=== PATIENT | female | born 1990 | race Caucasian/White ===

== ENCOUNTER 2023-04-17 11:06 | Outpatient (OUT) | payer BC, SELFPAY ==
--- NOTE | 2023-04-17 11:04 | US_ITS ---
[address] [address] Patient Name: KIRA CASTELLON MRN: [id number] date: 1990 Sex: F Assigned Patient Location: US Current Patient Location: Accession/Order Number: [id number] Exam Date: 04/17/2023 11:05 Report Date: 04/17/2023 16:12 At the request of: THOMAS FORMAN Procedure: US OB anatomy EXAMINATION: US OB anatomy, US OB transvaginal HISTORY: ANATOMY COMPARISON: No relevant comparison available. TECHNIQUE: Transabdominal sonographic examination was performed for obstetrical and evaluation. FINDINGS: Number: 1 Heart Rate: 148.0 bpm H.B. /min Amniotic Fluid Volume: Subjectively normal Placental Location: ANTERIOR with lower margin 5.3 cm from os. Cervix Length: 3.8 cm, closed. ANATOMY: Normal Structures -cerebellum, choroid plexus, cisterna magna, lateral cerebral ventricles, orbits, midline falx, four-chamber heart, RVOT, LVOT, stomach, bladder, umbilical cord insertion into abdomen, three-vessel cord, right upper extremity, left upper extremity, right lower extremity, left lower extremity. SUBOPTIMALLY SEEN: Hard palate, diaphragm, kidneys, spine ABNORMALITIES: None BIOMETRY: BPD: 4.8 cm 20 weeks 3 days HC: 18.3 cm 20 weeks 5 days AC: 16.3 cm 21 weeks 2 days FL: 3.7 cm 21 weeks 6 days EFW:424.2 grams; FL/AC: 22.9 FL/BPD: 78.2 HC/AC: 1.1 GESTATIONAL AGE: Age by EDC: 20 weeks 3 days LELA by EDC: 09/01/2023 Age by current US: 21 weeks 1 days LELA by current US: 08/27/2023 IMPRESSION: 1. Single live intrauterine with growth detailed above. 2. Limited examination of the hard palate, diaphragm, kidneys, spine due to maternal body habitus and position. Electronically authenticated by: YOMAIRA GONZALEZ Date: 04/17/2023 16:12
--- NOTE | 2023-04-17 11:05 | US_ITS ---
[address] [address] Patient Name: KIRA CASTELLON MRN: [id number] date: 1990 Sex: F Assigned Patient Location: US Current Patient Location: Accession/Order Number: [id number] Exam Date: 04/17/2023 11:05 Report Date: 04/17/2023 16:12 At the request of: THOMAS FORMAN Procedure: US OB transvaginal EXAMINATION: US OB anatomy, US OB transvaginal HISTORY: ANATOMY COMPARISON: No relevant comparison available. TECHNIQUE: Transabdominal sonographic examination was performed for obstetrical and evaluation. FINDINGS: Number: 1 Heart Rate: 148.0 bpm H.B. /min Amniotic Fluid Volume: Subjectively normal Placental Location: ANTERIOR with lower margin 5.3 cm from os. Cervix Length: 3.8 cm, closed. ANATOMY: Normal Structures -cerebellum, choroid plexus, cisterna magna, lateral cerebral ventricles, orbits, midline falx, four-chamber heart, RVOT, LVOT, stomach, bladder, umbilical cord insertion into abdomen, three-vessel cord, right upper extremity, left upper extremity, right lower extremity, left lower extremity. SUBOPTIMALLY SEEN: Hard palate, diaphragm, kidneys, spine ABNORMALITIES: None BIOMETRY: BPD: 4.8 cm 20 weeks 3 days HC: 18.3 cm 20 weeks 5 days AC: 16.3 cm 21 weeks 2 days FL: 3.7 cm 21 weeks 6 days EFW:424.2 grams; FL/AC: 22.9 FL/BPD: 78.2 HC/AC: 1.1 GESTATIONAL AGE: Age by EDC: 20 weeks 3 days LELA by EDC: 09/01/2023 Age by current US: 21 weeks 1 days LELA by current US: 08/27/2023 IMPRESSION: 1. Single live intrauterine with growth detailed above. 2. Limited examination of the hard palate, diaphragm, kidneys, spine due to maternal body habitus and position. Electronically authenticated by: YOMAIRA GONZALEZ Date: 04/17/2023 16:12
== END 2023-04-17 11:07 ==
PROVIDERS: Visit Provider Obstetrics & Gynecology
DX: Z34.92 Encounter for supervision of normal pregnancy, unspecified, second trimester (principal)
CPT/HCPCS: 76805; 76817

== ENCOUNTER 2023-06-12 07:33 | Outpatient (RCR) | payer BC, SELFPAY ==
[2023-06-12 09:20] VITALS: BP 146/99; PULSE 94; RESP 18; TEMP 36.4; O2SAT 100
--- NOTE | 2023-06-12 09:20 | PC.NURSE ---
Pt. to [facility] amb. per. self. Seated in recliner. VSS. Pt. without c/o pain, n/v or dyspnea. Blood type verified. Pt. educated on Rhogam, denies questions. Medicated with Rhophylac 1500IU IM to right dorsal gluteal. Small amount bleeding to injection site. Bandadid applied. Pt. tolerated with minimal c/o. Reminded need for brief observation for adverse reaction. Water given to pt. Denies needs. 0949: Pt. without s&s of adverse reaction. D/c'd to home amb.
[2023-06-12] MEDS: RHO(D) IMMUNE GLOBULIN 1,500 UNIT SYRINGE 1500 UNIT IM (09:34)
== END 2023-07-10 23:59 | disposition home or self-care (01) ==
LOC: INF 07:33
PROVIDERS: Visit Provider Obstetrics & Gynecology
DX: O26.893 Other specified pregnancy related conditions, third trimester (principal); Z67.91 Unspecified blood type, Rh negative; Z3A.00 Weeks of gestation of pregnancy not specified
CPT/HCPCS: 36415; 86850; 86900; 86901; 96372; J2790

== ENCOUNTER 2023-07-10 16:12 | Outpatient (OUT) | payer BC, SELFPAY ==
--- NOTE | 2023-07-10 16:21 | US_ITS ---
[address] [address] Patient Name: KIRA CASTELLON MRN: [id number] date: 1990 Sex: F Assigned Patient Location: [facility] Current Patient Location: Accession/Order Number: [id number] Exam Date: 07/10/2023 16:30 Report Date: 07/11/2023 07:33 At the request of: THOMAS FORMAN Procedure: US OB growth EXAMINATION: US OB growth HISTORY: SIZE INCONSISTENT WITH DATES O26.849 COMPARISON: No relevant comparison available. FINDINGS: Heart Rate: 131.7 bpm Amniotic Fluid Volume: 14.3 cm Number: 1.0 Position: Cephalic presentation, longitudinal lie Maximum Vertical Pocket: 5.4 cm cm 2.9 cm cm 2.9 cm cm 3.0 cm cm BIOMETRY: BPD: 8.3 cm cm; 33 weeks 3 days; 75% HC: 29.8 cmcm; 33 weeks 0 days, 32% AC: 28.6 cm cm; 32 weeks 4 days, 59% FL: 6.5 cm cm; 33 weeks 4 days; 72.1 % % EFW: 2097.2 grams, 4 lbs. 10 oz., 63% FL/AC: 22.8 FL/BPD: 78.4 HC/AC: 1.0 GESTATIONAL AGE: Age by EDC: 32 weeks 2 days LELA by EDC: 09/02/2023 Age by US: 33 weeks 1 day LELA by US: 08/27/2023 US/US OB growth IMPRESSION: Normal interval growth Electronically authenticated by: EMMIE NIETO Date: 07/11/2023 07:33
--- NOTE | 2023-07-10 16:22 | US_ITS ---
[address] [address] Patient Name: KIRA CASTELLON MRN: [id number] date: 1990 Sex: F Assigned Patient Location: [facility] Current Patient Location: Accession/Order Number: [id number] Exam Date: 07/10/2023 16:30 Report Date: 07/10/2023 22:40 At the request of: THOMAS FORMAN Procedure: US OB BPP w non-stress EXAMINATION: US OB BPP w non-stress HISTORY: SIZE INCONSISTENT WITH DATES O26.849 COMPARISON: Ultrasound OB anatomy 04/17/2023 TECHNIQUE: Ultrasound biophysical profile was performed in the radiology department. BREATHING MOVEMENTS: 2 GROSS BODY MOVEMENTS: 2 TONE: 2 QUALITATIVE AMNIOTIC FLUID VOLUME: 2 PRESENTATION: Cephalic HEART RATE: 132 bpm. AMNIOTIC FLUID VOLUME: 14.3 cm; normal range GESTATIONAL AGE: 32 weeks 3 days CONCLUSION: Total biophysical profile score 8. Electronically authenticated by: YOMAIRA GONZALEZ Date: 07/10/2023 22:40
[2023-07-10 17:03] VITALS: TEMP 36.1
[2023-07-10 17:04] VITALS: BP 123/65; PULSE 75
== END 2023-07-10 17:32 | disposition home or self-care (01) ==
LOC: US 16:12 → FBC 16:13
PROVIDERS: Visit Provider Obstetrics & Gynecology
DX: O26.843 Uterine size-date discrepancy, third trimester (principal); Z3A.32 32 weeks gestation of pregnancy
CPT/HCPCS: 76816; 76818

== ENCOUNTER 2023-07-14 15:27 | Outpatient (OUT) | payer BC, SELFPAY ==
[2023-07-14 15:36] VITALS: BP 128/70; PULSE 90
== END 2023-07-14 16:15 | disposition home or self-care (01) ==
LOC: FBCO 15:28 → FBC 15:29
PROVIDERS: Visit Provider Obstetrics & Gynecology
DX: O26.849 Uterine size-date discrepancy, unspecified trimester (principal); Z3A.00 Weeks of gestation of pregnancy not specified
CPT/HCPCS: 59025

== ENCOUNTER 2023-07-17 15:50 | Outpatient (OUT) | payer BC, SELFPAY ==
--- NOTE | 2023-07-17 15:54 | US_ITS ---
[address] [address] Patient Name: KIRA CASTELLON MRN: [id number] date: 1990 Sex: F Assigned Patient Location: [facility] Current Patient Location: Accession/Order Number: [id number] Exam Date: 07/17/2023 16:00 Report Date: 07/18/2023 15:07 At the request of: THOMAS FORMAN Procedure: US OB BPP w non-stress EXAMINATION: US OB BPP w non-stress HISTORY: SIZE INCONSISTENT WITH DATES O26.849 COMPARISON: Ultrasound OB biophysical 07/10/2023 TECHNIQUE: Ultrasound biophysical profile was performed in the radiology department. BREATHING MOVEMENTS: 2.0 GROSS BODY MOVEMENTS: 2.0 TONE: 2.0 QUALITATIVE AMNIOTIC FLUID VOLUME: 2.0 PRESENTATION: CEPHALIC HEART RATE: 149.2 bpm bpm. AMNIOTIC FLUID VOLUME: 14.8 cm GESTATIONAL AGE: 33 weeks 2 days CONCLUSION: Total biophysical profile score 8.0. Electronically authenticated by: YOMAIRA GONZALEZ Date: 07/18/2023 15:07
[2023-07-17 16:32] VITALS: BP 121/72; PULSE 87
== END 2023-07-17 16:58 | disposition home or self-care (01) ==
LOC: US 15:53 → FBC 15:54
PROVIDERS: Visit Provider Obstetrics & Gynecology
DX: O26.843 Uterine size-date discrepancy, third trimester (principal); Z3A.33 33 weeks gestation of pregnancy
CPT/HCPCS: 76818

== ENCOUNTER 2023-07-21 15:46 | Outpatient (RCR) | payer BC, SELFPAY | END 2023-07-21 16:30 | disposition home or self-care (01) | LOC: FBCO 15:46 | PROVIDERS: Visit Provider Obstetrics & Gynecology | DX: O26.849 Uterine size-date discrepancy, unspecified trimester (principal); Z3A.00 Weeks of gestation of pregnancy not specified | CPT/HCPCS: 59025 ==

== ENCOUNTER 2023-07-24 16:04 | Outpatient (OUT) | payer BC, SELFPAY ==
--- NOTE | 2023-07-24 16:05 | US_ITS ---
[address] [address] Patient Name: KIRA CASTELLON MRN: [id number] date: 1990 Sex: F Assigned Patient Location: [facility] Current Patient Location: Accession/Order Number: [id number] Exam Date: 07/24/2023 16:15 Report Date: 07/25/2023 17:29 At the request of: THOMAS FORMAN Procedure: US OB BPP w non-stress EXAMINATION: US OB BPP w non-stress HISTORY: SIZE INCONSISTENT WITH DATES O26.849 COMPARISON: No relevant comparison available. TECHNIQUE: Ultrasound biophysical profile was performed in the radiology department. FINDINGS: BREATHING MOVEMENTS: 2.0 GROSS BODY MOVEMENTS: 2.0 TONE: 2.0 QUALITATIVE AMNIOTIC FLUID VOLUME: 2.0 PRESENTATION: CEPHALIC HEART RATE: 142.9 bpm H.B./min AMNIOTIC FLUID VOLUME: 11.9 cm cm GESTATIONAL AGE: 34 weeks 2 days CONCLUSION: Total biophysical profile score: 8.0 Electronically authenticated by: EMMIE NIETO Date: 07/25/2023 17:29
[2023-07-24 17:01] VITALS: BP 124/67; PULSE 85
== END 2023-07-24 17:42 | disposition home or self-care (01) ==
LOC: US 16:05 → FBC 16:05
PROVIDERS: Visit Provider Obstetrics & Gynecology
DX: O26.843 Uterine size-date discrepancy, third trimester (principal); Z3A.34 34 weeks gestation of pregnancy
CPT/HCPCS: 76818

== ENCOUNTER 2023-07-28 07:35 | Outpatient (OUT) | payer BC, SELFPAY | END 2023-07-28 16:00 | disposition home or self-care (01) | LOC: FBCO 15:30 → FBC 15:31 | PROVIDERS: Visit Provider Obstetrics & Gynecology | DX: O26.849 Uterine size-date discrepancy, unspecified trimester (principal); Z3A.00 Weeks of gestation of pregnancy not specified | CPT/HCPCS: 59025 ==

== ENCOUNTER 2023-07-31 07:32 | Outpatient (OUT) | payer BC, SELFPAY ==
--- NOTE | 2023-07-31 15:59 | US_ITS ---
[address] [address] Patient Name: KIRA CASTELLON MRN: [id number] date: 1990 Sex: F Assigned Patient Location: [facility] Current Patient Location: Accession/Order Number: [id number] Exam Date: 07/31/2023 16:04 Report Date: 08/01/2023 15:49 At the request of: THOMAS FORMAN Procedure: US OB BPP w non-stress EXAMINATION: US OB BPP w non-stress HISTORY: SIZE INCONSISTENT WITH DATES O26.849 COMPARISON: Ultrasound OB biophysical 07/24/2023 TECHNIQUE: Ultrasound biophysical profile was performed in the radiology department. BREATHING MOVEMENTS: 2.0 GROSS BODY MOVEMENTS: 2.0 TONE: 2.0 QUALITATIVE AMNIOTIC FLUID VOLUME: 2.0 PRESENTATION: CEPHALIC HEART RATE: 142.1 bpm bpm. AMNIOTIC FLUID VOLUME: 18.9 cm GESTATIONAL AGE: 35 weeks 2 days CONCLUSION: Total biophysical profile score 8.0. Electronically authenticated by: YOMAIRA GONZALEZ Date: 08/01/2023 15:49
[2023-07-31 16:41] VITALS: BP 136/78; PULSE 91
== END 2023-07-31 17:35 ==
LOC: US 07:32 → FBC 15:51
PROVIDERS: Visit Provider Obstetrics & Gynecology
DX: O26.843 Uterine size-date discrepancy, third trimester (principal); Z3A.35 35 weeks gestation of pregnancy
CPT/HCPCS: 59025; 76818

== ENCOUNTER 2023-08-04 07:19 | Outpatient (OUT) | payer BC, SELFPAY ==
[2023-08-04 15:31] VITALS: BP 144/87; PULSE 94
== END 2023-08-04 16:00 | disposition home or self-care (01) ==
LOC: FBCO 07:19 → FBC 15:25
PROVIDERS: Visit Provider Obstetrics & Gynecology
DX: O26.843 Uterine size-date discrepancy, third trimester (principal); Z3A.00 Weeks of gestation of pregnancy not specified
CPT/HCPCS: 59025

== ENCOUNTER 2023-08-07 08:59 | Outpatient (OUT) | payer BC, SELFPAY ==
--- NOTE | 2023-08-07 15:58 | US_ITS ---
[address] [address] Patient Name: KIRA CASTELLON MRN: [id number] date: 1990 Sex: F Assigned Patient Location: [facility] Current Patient Location: Accession/Order Number: [id number] Exam Date: 08/07/2023 16:05 Report Date: 08/08/2023 15:05 At the request of: THOMAS FORMAN Procedure: US OB BPP w non-stress EXAMINATION: US OB BPP w non-stress HISTORY: SIZE INCONSISTENT WITH DATES O26.849 COMPARISON: Ultrasound OB biophysical 07/31/2023 TECHNIQUE: Ultrasound biophysical profile was performed in the radiology department. BREATHING MOVEMENTS: 2 GROSS BODY MOVEMENTS: 2 TONE: 2 QUALITATIVE AMNIOTIC FLUID VOLUME: 2 PRESENTATION: Cephalic HEART RATE: 167 bpm. AMNIOTIC FLUID VOLUME: 14.0 cm (normal range) GESTATIONAL AGE: 36 weeks 2 days CONCLUSION: Total biophysical profile score 8. Electronically authenticated by: YOMAIRA GONZALEZ Date: 08/08/2023 15:05
--- NOTE | 2023-08-07 15:59 | US_ITS ---
[address] [address] Patient Name: KIRA CASTELLON MRN: [id number] date: 1990 Sex: F Assigned Patient Location: [facility] Current Patient Location: Accession/Order Number: [id number] Exam Date: 08/07/2023 16:05 Report Date: 08/08/2023 15:08 At the request of: THOMAS FORMAN Procedure: US OB growth EXAMINATION: US OB growth HISTORY: SIZE INCONSISTENT WITH DATES O26.849 COMPARISON: Ultrasound OB growth 07/10/2023 TECHNIQUE: Transabdominal sonographic examination was performed for obstetrical and evaluation. FINDINGS: Number: 1 Heart Rate: 166.7 bpm H.B. /min Amniotic Fluid Volume: 14.0 cm; normal range Placental Location: Anterior without previa BIOMETRY: BPD: 9.1 cm 37 weeks 1 days HC: 33.9 cm 39 weeks 0 days AC: 32.5 cm 36 weeks 3 days FL: 7.2 cm 37 weeks 0 days EFW:3062.6 grams; 70% FL/AC: 22.2 FL/BPD: 79.0 HC/AC: 1.0 GESTATIONAL AGE: Age by EDC: 36 weeks 2 days LELA by EDC: 09/02/2023 Age by current US: 37 weeks 3 days LELA by current US: 08/25/2023 US/US OB growth IMPRESSION: 1. Single live intrauterine with growth detailed above. Electronically authenticated by: YOMAIRA GONZALEZ Date: 08/08/2023 15:08
[2023-08-07 16:50] VITALS: BP 123/72; PULSE 82
== END 2023-08-07 17:15 | disposition home or self-care (01) ==
LOC: US 08:59 → FBC 15:59
PROVIDERS: Visit Provider Obstetrics & Gynecology
DX: Z34.93 Encounter for supervision of normal pregnancy, unspecified, third trimester (principal); O26.843 Uterine size-date discrepancy, third trimester; Z3A.00 Weeks of gestation of pregnancy not specified
CPT/HCPCS: 76816; 76818; 87081

== ENCOUNTER 2023-08-07 20:03 | Outpatient (REF) | payer BC, SELFPAY | END 2023-08-07 20:04 | disposition home or self-care (01) | LOC: LAB 20:03 | PROVIDERS: Visit Provider Obstetrics & Gynecology | DX: Z34.93 Encounter for supervision of normal pregnancy, unspecified, third trimester (principal) | CPT/HCPCS: 87081 ==

== ENCOUNTER 2023-08-11 13:05 | Outpatient (OUT) | payer BC, SELFPAY ==
[2023-08-11 15:31] VITALS: BP 117/69; PULSE 80
== END 2023-08-11 16:13 | disposition home or self-care (01) ==
LOC: FBCO 13:05 → FBC 15:25
PROVIDERS: Visit Provider Obstetrics & Gynecology
DX: O26.843 Uterine size-date discrepancy, third trimester (principal); Z3A.00 Weeks of gestation of pregnancy not specified
CPT/HCPCS: 59025

== ENCOUNTER 2023-08-14 07:41 | Outpatient (OUT) | payer BC, SELFPAY ==
--- NOTE | 2023-08-14 16:15 | US_ITS ---
[address] [address] Patient Name: KIRA CASTELLON MRN: [id number] date: 1990 Sex: F Assigned Patient Location: [facility] Current Patient Location: Accession/Order Number: [id number] Exam Date: 08/14/2023 16:20 Report Date: 08/15/2023 07:21 At the request of: THOMAS FORMAN Procedure: US OB BPP w non-stress EXAMINATION: US OB BPP w non-stress HISTORY: SIZE INCONSISTENT WITH DATES O26.849 COMPARISON: No relevant comparison available. TECHNIQUE: Ultrasound biophysical profile was performed in the radiology department. non-reactive stress testing was performed by nursing staff in the birthing center. FINDINGS: BREATHING MOVEMENTS: 2.0 GROSS BODY MOVEMENTS: 2.0 TONE: 2.0 QUALITATIVE AMNIOTIC FLUID VOLUME: 2.0 PRESENTATION: CEPHALIC HEART RATE: 133.7 bpm H.B./min AMNIOTIC FLUID VOLUME: 17.9 cm cm GESTATIONAL AGE: 37 weeks 2 days CONCLUSION: Total biophysical profile score: 8.0 Electronically authenticated by: EMMIE NIETO Date: 08/15/2023 07:21
[2023-08-14 16:58] VITALS: BP 118/58; PULSE 79
== END 2023-08-14 17:36 | disposition home or self-care (01) ==
LOC: US 07:42 → FBC 15:57
PROVIDERS: Visit Provider Obstetrics & Gynecology
DX: O26.843 Uterine size-date discrepancy, third trimester (principal); Z3A.37 37 weeks gestation of pregnancy
CPT/HCPCS: 76818

== ENCOUNTER 2023-08-18 07:20 | Outpatient (OUT) | payer BC, SELFPAY ==
[2023-08-18 15:34] VITALS: BP 136/81; PULSE 90
== END 2023-08-18 15:59 | disposition home or self-care (01) ==
LOC: FBCO 07:20 → FBC 15:28
PROVIDERS: Visit Provider Obstetrics & Gynecology
DX: O26.849 Uterine size-date discrepancy, unspecified trimester (principal); Z3A.00 Weeks of gestation of pregnancy not specified
CPT/HCPCS: 59025

== ENCOUNTER 2023-08-21 07:26 | Outpatient (OUT) | payer BC, SELFPAY ==
--- NOTE | 2023-08-21 16:08 | US_ITS ---
[address] [address] Patient Name: KIRA CASTELLON MRN: [id number] date: 1990 Sex: F Assigned Patient Location: [facility] Current Patient Location: [facility] Accession/Order Number: [id number] Exam Date: 08/21/2023 16:11 Report Date: 08/21/2023 17:13 At the request of: THOMAS FORMAN Procedure: US OB BPP w non-stress EXAMINATION: US OB BPP w non-stress HISTORY: SIZE INCONSISTENT WITH DATES O26.849 COMPARISON: Ultrasound OB biophysical 08/14/2023 TECHNIQUE: Ultrasound biophysical profile was performed in the radiology department. BREATHING MOVEMENTS: 2.0 GROSS BODY MOVEMENTS: 2.0 TONE: 2.0 QUALITATIVE AMNIOTIC FLUID VOLUME: 2.0 PRESENTATION: CEPHALIC HEART RATE: 126.8 bpm bpm. AMNIOTIC FLUID VOLUME: 12.7 cm GESTATIONAL AGE: 38 weeks 2 days CONCLUSION: Total biophysical profile score 8.0. Electronically authenticated by: YOMAIRA GONZALEZ Date: 08/21/2023 17:13
[2023-08-21 16:48] VITALS: BP 138/62; PULSE 95
== END 2023-08-21 17:26 | disposition home or self-care (01) ==
LOC: US 07:34 → FBC 16:01
PROVIDERS: Visit Provider Obstetrics & Gynecology
DX: O26.843 Uterine size-date discrepancy, third trimester (principal); Z3A.38 38 weeks gestation of pregnancy
CPT/HCPCS: 76818

== ENCOUNTER 2023-08-25 08:01 | Outpatient (OUT) | payer BC, SELFPAY ==
[2023-08-25 15:37] VITALS: BP 142/81; PULSE 93
== END 2023-08-25 16:00 | disposition home or self-care (01) ==
LOC: FBCO 08:02 → FBC 15:31
PROVIDERS: Visit Provider Obstetrics & Gynecology
DX: O26.849 Uterine size-date discrepancy, unspecified trimester (principal); Z3A.00 Weeks of gestation of pregnancy not specified
CPT/HCPCS: 59025

== ENCOUNTER 2023-08-26 04:49 | Inpatient (IN) | payer BC, SELFPAY ==
[2023-08-26] VITALS (67 sets, daily range): BP systolic 89–156; BP diastolic 56–114; PULSE 69–122; RESP 16–18; TEMP 36.4–36.9
[2023-08-26 05:54] LABS: Hematocrit 37.5 % (36.0-48.0); Mean Corpuscular HGB Conc 34.7 g/dL (29.9-35.2); Mean Corpuscular Volume 98.2 fL (81.0-99.0); Platelet Count 129 10^3/uL (150-450); Red Blood Count 3.82 10^6/uL (4.20-5.40); Red Cell Distribution Width 13.1 % (11.0-15.0); White Blood Count 8.3 10^3/uL (4.0-11.0)
[2023-08-26 06:06] LABS: Amphetamine Screen Urine NEGATIVE (NEGATIVE); Barbiturates Screen Urine NEGATIVE (NEGATIVE); Benzodiazepines Screen Urine NEGATIVE (NEGATIVE); Buprenorphine Screen Urine NEGATIVE (NEGATIVE); Cannabinoid Screen Urine NEGATIVE (NEGATIVE); Cocaine Screen Urine NEGATIVE (NEGATIVE); Methadone Screen Urine NEGATIVE (NEGATIVE); Methamphetamines Screen Urine NEGATIVE (NEGATIVE); Opiate Screen Urine NEGATIVE (NEGATIVE); Oxycodone Screen Urine NEGATIVE (NEGATIVE); Phencyclidine Screen Urine NEGATIVE (NEGATIVE); Tricyclic Antidepressant Urine NEGATIVE (NEGATIVE)
[2023-08-26] MEDS: OXYTOCIN/0.9 % SODIUM CHLORIDE 10 UNITS/500 ML PLAST..BAG 6 UNIT IV (06:24)
[2023-08-26] MEDS: 0.9 % SODIUM CHLORIDE 1,000 ML 125 ML IV ×2 (06:24→13:11)
--- NOTE | 2023-08-26 07:31 | W.PC.ACHO ---
Registration Status: ADM IN Primary Language: Trinidadian Preferred Language: Trinidadian Active Medications Generic Name Dose Route Start Last Admin Trade Name Raquel PRN Reason Stop Dose Admin Carboprost Tromethamine 250 mcg 08/26/23 04:52 Carboprost Tromethamine 250 Mcg/Ml 1 Ml Vial IM 08/28/23 04:52 Q15M PRN Bleeding Sodium Chloride 1,000 mls @ 125 mls/hr 08/26/23 05:00 08/26/23 06:24 Sodium Chloride 0.9% 1,000 Ml IV 125 mls/hr .Q8H ARIEL Administration Oxytocin/Sodium Chloride 10 units in 500 mls @ 6 mls/hr 08/26/23 05:00 08/26/23 06:24 Pitocin 10 Unit/500 Ml-Ns IV 2 milliunit/min CONT ARIEL 6 mls/hr Administration Protocol 2 MILLIUNIT/MIN Oxytocin/Sodium Chloride 20 units in 1,000 mls @ 125 mls/hr 08/26/23 05:00 Pitocin 20 Unit/1,000 Ml-Ns IV 08/26/23 12:59 Q8H ARIEL Lidocaine 5 ml 08/26/23 04:52 Lidocaine Viscous 2% 15 Ml Solution TOPICAL ONCE PRN Pain Lidocaine 1 ml 08/26/23 04:52 Lidocaine Hcl 1% 200 Mg/20 Ml Mdv INJ ONCE PRN Pain Methylergonovine Maleate 0.2 mg 08/26/23 04:52 Methylergonovine Maleate 0.2 Mg/Ml Ampule IM 08/28/23 04:52 ONCE PRN Uterine Contractility/Contract Methylergonovine Maleate 0.2 mg 08/26/23 04:52 Methylergonovine Maleate 0.2 Mg Tablet PO 08/28/23 04:52 Q4H PRN Uterine Contractility/Contract Misoprostol 600 mcg 08/26/23 04:52 Misoprostol 100 Mcg Tablet PO 08/28/23 04:52 ONCE PRN Uterine Bleeding Misoprostol 800 mcg 08/26/23 04:52 Misoprostol 100 Mcg Tablet SL 08/28/23 04:52 ONCE PRN Uterine Bleeding Misoprostol 1,000 mcg 08/26/23 04:52 Misoprostol 100 Mcg Tablet OR 08/28/23 04:52 ONCE PRN Uterine Bleeding Ondansetron HCl 4 mg 08/26/23 04:52 Ondansetron Pf 4 Mg/2 Ml Vial IV Q6H PRN Nausea And Vomiting Ondansetron HCl 4 mg 08/26/23 04:52 Ondansetron 4 Mg Rapdis Tablet SL Q6H PRN Nausea And Vomiting Oxytocin 10 unit 08/26/23 04:52 Oxytocin 10 Unit/Ml Vial IM 08/28/23 04:52 ONCE PRN Bleeding Diet Category Date Time Status Clear Liquid Diet Diet 08/26/23 04:53 Active Consults Category Date Time Status Consult to Anesthesiology Routine Cons 08/26/23 Ordered IV Insertion/Site Date of IV Line Insertion [20g 08/26/23 right Wrist] IV Insertion Time [20g right 05:25 Wrist] Neurology Patient orientation (short person,place,time,situation list) Respiratory Oxygen Delivery Method Room Air
[2023-08-26] MEDS: LIDOCAINE HCL 1% 200 MG/20 ML MDV INJ (19:55)
[2023-08-26] MEDS: CARBOPROST TROMETHAMINE 250 MCG/ML 1 ML VIAL IM (19:57)
--- NOTE | 2023-08-26 20:13 | PM.OBPRCVD ---
Procedure Intrapartal events: None Induction method: per pitocin protocol Delivery augmentation: rupture of membranes and pitocin Delivery monitor: external FHT and external uterine Route of delivery: Laceration description: perineal - 2nd degree Delivery repair: Vicryl Estimated blood loss (mL): 400 Anesthesia type: None Disposition: floor Delivery date: 08/26/23 Gender: female presentation: vertex Placental delivery description: Spontaneous cord description: 3 Vessels
[2023-08-26] MEDS: BENZOCAINE/MENTHOL 85 GRAM SPRAY BOTTLE 1 APPLIC TOPICAL (20:39)
[2023-08-26] MEDS: IBUPROFEN 600 MG TABLET PO (20:39)
[2023-08-26] MEDS: GLYCERIN/WITCH HAZEL PADS 1 PAD TOPICAL (20:39)
--- NOTE | 2023-08-26 21:43 | PC.NURSE ---
Infant [id number].
--- NOTE | 2023-08-26 21:43 | PC.NURSE ---
Infant [id number].
--- NOTE | 2023-08-26 21:44 | PC.NURSE ---
Pt given fresh fluids and is eating at this time. Pt denies needs.
--- NOTE | 2023-08-26 21:46 | PC.NURSE ---
Addendum entered by Aspen Grijalva 08/26/23 21:47: [id number]. Original Note: at breast at this time.
--- NOTE | 2023-08-26 22:48 | PC.NURSE ---
Pt pad changed at this time. Pt continuing to eat at this time.
[2023-08-27] VITALS (7 sets, daily range): BP systolic 119–131; BP diastolic 57–72; PULSE 96–114; RESP 14–16; TEMP 36.8–37
--- NOTE | 2023-08-27 02:56 | W.PC.ACHO ---
Registration Status: ADM IN Primary Language: Nigerian Preferred Language: Nigerian Report given to Dl Kim RN at [id number]. Active Medications Generic Name Dose Route Start Last Admin Trade Name Freq PRN Reason Stop Dose Admin Acetaminophen 650 mg 08/26/23 20:12 Acetaminophen 325 Mg Tablet PO Q6H PRN Mild Pain Al Hydroxide/Mg Hydroxide 2,400 mg 08/26/23 20:12 Magnesium Hydroxide 2,400 Mg/10 Ml Oral.Susp PO Q6H PRN Dyspepsia Benzocaine/Menthol 1 applic 08/26/23 20:12 08/26/23 20:39 Benzocaine/Menthol 85 Gram [place] Bottle TOPICAL 1 applic Q2H PRN Administration Pain Carboprost Tromethamine 250 mcg 08/26/23 04:52 08/26/23 19:57 Carboprost Tromethamine 250 Mcg/Ml 1 Ml Vial IM 08/28/23 04:52 250 mcg Q15M PRN Administration Bleeding Diphtheria/Pertussis/Tetanus Vacc 0.5 ml 08/28/23 09:00 Adacel Diph,Pertuss(Acell),Tet Vac/Pf 0.5 Ml Adult Syringe IM 08/28/23 09:01 .ONCE ONE Docusate Sodium 100 mg 08/27/23 09:00 Docusate Sodium 100 Mg Capsule PO BID ARIEL Sodium Chloride 1,000 mls @ 125 mls/hr 08/26/23 05:00 08/26/23 13:11 Sodium Chloride 0.9% 1,000 Ml IV 125 mls/hr .Q8H ARIEL Administration Oxytocin/Sodium Chloride 10 units in 500 mls @ 6 mls/hr 08/26/23 05:00 08/26/23 07:30 Pitocin 10 Unit/500 Ml-Ns IV 6 milliunit/min CONT ARIEL 18 mls/hr Infusion Protocol 2 MILLIUNIT/MIN Oxytocin/Sodium Chloride 20 units in 1,000 mls @ 125 mls/hr 08/26/23 08:15 Pitocin 20 Unit/1,000 Ml-Ns IV Q8H PRN POST DELIVERY Oxytocin 20 unit/ Sodium 1,002 mls @ 125 mls/hr 08/26/23 20:15 08/26/23 23:30 Chloride IV 08/27/23 04:14 Infused Q8H ARIEL Infusion Ibuprofen 600 mg 08/26/23 20:12 08/26/23 20:39 Ibuprofen 600 Mg Tablet PO 600 mg Q6H PRN Administration Moderate Pain Lidocaine 5 ml 08/26/23 04:52 Lidocaine Viscous 2% 15 Ml Solution TOPICAL ONCE PRN Pain Lidocaine 1 ml 08/26/23 04:52 08/26/23 19:55 Lidocaine Hcl 1% 200 Mg/20 Ml Mdv INJ 1 ml ONCE PRN Administration Pain Measles/Mumps/Rubella Vaccine Live 0.5 ml 08/28/23 09:00 Measles,Mumps,Rubella Vacc/Pf 0.5 Ml Vial SQ 08/28/23 09:01 .ONCE ONE Methylergonovine Maleate 0.2 mg 08/26/23 04:52 Methylergonovine Maleate 0.2 Mg/Ml Ampule IM 08/28/23 04:52 ONCE PRN Uterine Contractility/Contract Methylergonovine Maleate 0.2 mg 08/26/23 04:52 Methylergonovine Maleate 0.2 Mg Tablet PO 08/28/23 04:52 Q4H PRN Uterine Contractility/Contract Misoprostol 600 mcg 08/26/23 04:52 Misoprostol 100 Mcg Tablet PO 08/28/23 04:52 ONCE PRN Uterine Bleeding Misoprostol 800 mcg 08/26/23 04:52 Misoprostol 100 Mcg Tablet SL 08/28/23 04:52 ONCE PRN Uterine Bleeding Misoprostol 1,000 mcg 08/26/23 04:52 Misoprostol 100 Mcg Tablet GA 08/28/23 04:52 ONCE PRN Uterine Bleeding Ondansetron HCl 4 mg 08/26/23 04:52 Ondansetron Pf 4 Mg/2 Ml Vial IV Q6H PRN Nausea And Vomiting Ondansetron HCl 4 mg 08/26/23 04:52 Ondansetron 4 Mg Rapdis Tablet SL Q6H PRN Nausea And Vomiting Oxytocin 10 unit 08/26/23 04:52 Oxytocin 10 Unit/Ml Vial IM 08/28/23 04:52 ONCE PRN Bleeding Senna 17.2 mg 08/26/23 20:00 Sennosides 8.6 Mg Tablet PO QHS PRN Constipation Simethicone 80 mg 08/26/23 20:12 Simethicone 80 Mg Tab.Chew PO QID PRN Abdominal Distention Temazepam 15 mg 08/26/23 20:12 Temazepam 15 Mg Capsule PO QHS PRN Sleep Witch Jamila/Glycerin 1 pad 08/26/23 20:12 08/26/23 20:39 Glycerin/Witch Jamila Pads TOPICAL 1 pad Q2H PRN Administration Pain Diet Category Date Time Status Regular Consistency Diet Diet 08/26/23 20:12 Active IV Insertion/Site Date of IV Line Insertion [20g 08/26/23 right Wrist] IV Insertion Time [20g right 05:25 Wrist] Neurology Patient orientation (short person,place,time,situation list) Respiratory Oxygen Delivery Method Room Air Oxygen Delivery Method Room Air Oxygen Delivery Method Room Air Oxygen Delivery Method Room Air Bowels Date of Last Bowel Movement 08/26/23 Date of Last Bowel Movement 08/26/23 Renal Bladder Pattern Continent
[2023-08-27 05:56] LABS: Basophils Percent Auto 0.2 % (0.2-2.0); Eosinophils Absolute Auto 0.1 10^3/uL (0.0-0.7); Eosinophils Percent Auto 1.1 % (0.9-7.0); Hematocrit 28.4 % (36.0-48.0); Hemoglobin 9.9 g/dL (12.0-16.0); Immature Granulocytes Abs Auto 0.05 10^3/uL (0.00-0.03); Immature Granulocytes Pct Auto 0.4 % (0.0-0.5); Lymphocytes Percent Auto 17.7 % (20.5-60.0); Mean Corpuscular HGB Conc 34.9 g/dL (29.9-35.2); Mean Corpuscular Hemoglobin 34.4 pg (26.7-34.0); Mean Corpuscular Volume 98.6 fL (81.0-99.0); Monocytes Absolute Auto 0.9 10^3/uL (0.3-0.8); Monocytes Percent Auto 7.7 % (1.7-12.0); Neutrophils Absolute Auto 8.3 10^3/uL (1.4-6.5); Neutrophils Percent Auto 72.9 % (43.0-75.0); Platelet Count 117 10^3/uL (150-450); Red Blood Count 2.88 10^6/uL (4.20-5.40); White Blood Count 11.3 10^3/uL (4.0-11.0)
--- NOTE | 2023-08-27 07:37 | PM.OBPN ---
OB - PN: Subj Subjective Patient comments: no complaints and pain well controlled [place] status: doing well Exam Constitutional Vital Signs, click to edit/add: Last Vital Signs Temp 98.6 F 08/27/23 03:55 Pulse 112 H 08/27/23 03:55 Resp 16 08/27/23 03:55 BP 119/57 08/27/23 03:55 O2 Del Method Room Air 08/26/23 23:30 Documenting provider has reviewed patient's vital signs: yes Common normals: no apparent distress Respiratory Common normals: normal respiratory effort and clear to auscultation bilaterally Cardio Common normals: regular rate and regular rhythm GI Common normals: Normal to inspection, nondistended, normoactive bowel sounds present Extremity Common normals: no calf tenderness Results Labs Labs: Short CBC 08/27/23 Range/Units 05:40 WBC 11.3 H (4.0-11.0) 10^3/uL Hgb 9.9 L (12.0-16.0) g/dL Hct 28.4 L (36.0-48.0) % Plt Count 117 L (150-450) 10^3/uL OB - PN: A/P Plan - Vaginal Delivery day: 2 Plan: routine care, discharge home and follow up 6 weeks Time Spent with Patient Time: Total time spent is greater than 50% in coordination of care (as documented) at patient's floor/unit and/or counseling patient: Total time spent with greater than 50% in coordination of care (as documented) at patient's floor/unit and/or counseling patient: less than 15 minutes
[2023-08-27] MEDS: DOCUSATE SODIUM 100 MG CAPSULE PO (08:23)
[2023-08-27] MEDS: RHO(D) IMMUNE GLOBULIN 1,500 UNIT SYRINGE 1500 UNIT IV (10:52)
--- NOTE | 2023-08-27 12:23 | PC.NURSE ---
Pt. educated on hand expression and breast pump, verbalizes and demonstrates understanding
--- NOTE | 2023-08-27 15:45 | PC.NURSE ---
LC into room, parents state baby fed well for 15 minutes at 1pm. Visitors have been in room all afternoon holding baby. Encouraged to try feeding every 2-3 hours to stimulate supply, and to ensure the baby is having ample opportunity for feedings. All in room voices agreement and understanding. Will continue to use nipple shield for latching at this time.
--- NOTE | 2023-08-27 16:39 | PC.NURSE ---
reviewed patient educational DVDs and Ipad teaching
--- NOTE | 2023-08-27 19:36 | W.PC.ACHO ---
Registration Status: ADM IN Primary Language: Dutch Preferred Language: Dutch Report received from Jake at 1840. Active Medications Generic Name Dose Route Start Last Admin Trade Name Freq PRN Reason Stop Dose Admin Acetaminophen 650 mg 08/26/23 20:12 Acetaminophen 325 Mg Tablet PO Q6H PRN Mild Pain Al Hydroxide/Mg Hydroxide 2,400 mg 08/26/23 20:12 Magnesium Hydroxide 2,400 Mg/10 Ml Oral.Susp PO Q6H PRN Dyspepsia Benzocaine/Menthol 1 applic 08/26/23 20:12 08/26/23 20:39 Benzocaine/Menthol 85 Gram [place] Bottle TOPICAL 1 applic Q2H PRN Administration Pain Carboprost Tromethamine 250 mcg 08/26/23 04:52 08/26/23 19:57 Carboprost Tromethamine 250 Mcg/Ml 1 Ml Vial IM 08/27/23 21:00 250 mcg Q15M PRN Administration Bleeding Diphtheria/Pertussis/Tetanus Vacc 0.5 ml 08/28/23 09:00 Adacel Diph,Pertuss(Acell),Tet Vac/Pf 0.5 Ml Adult Syringe IM 08/28/23 09:01 .ONCE ONE Docusate Sodium 100 mg 08/27/23 09:00 08/27/23 08:23 Docusate Sodium 100 Mg Capsule PO 100 mg BID ARIEL Administration Sodium Chloride 1,000 mls @ 125 mls/hr 08/26/23 05:00 08/26/23 13:11 Sodium Chloride 0.9% 1,000 Ml IV 125 mls/hr .Q8H ARIEL Administration Ibuprofen 600 mg 08/26/23 20:12 08/26/23 20:39 Ibuprofen 600 Mg Tablet PO 600 mg Q6H PRN Administration Moderate Pain Measles/Mumps/Rubella Vaccine Live 0.5 ml 08/28/23 09:00 Measles,Mumps,Rubella Vacc/Pf 0.5 Ml Vial SQ 08/28/23 09:01 .ONCE ONE Methylergonovine Maleate 0.2 mg 08/26/23 04:52 Methylergonovine Maleate 0.2 Mg/Ml Ampule IM 08/27/23 21:00 ONCE PRN Uterine Contractility/Contract Methylergonovine Maleate 0.2 mg 08/26/23 04:52 Methylergonovine Maleate 0.2 Mg Tablet PO 08/27/23 21:00 Q4H PRN Uterine Contractility/Contract Misoprostol 600 mcg 08/26/23 04:52 Misoprostol 100 Mcg Tablet PO 08/27/23 21:00 ONCE PRN Uterine Bleeding Misoprostol 800 mcg 08/26/23 04:52 Misoprostol 100 Mcg Tablet SL 08/27/23 21:00 ONCE PRN Uterine Bleeding Misoprostol 1,000 mcg 08/26/23 04:52 Misoprostol 100 Mcg Tablet MT 08/27/23 21:00 ONCE PRN Uterine Bleeding Ondansetron HCl 4 mg 08/26/23 04:52 Ondansetron Pf 4 Mg/2 Ml Vial IV Q6H PRN Nausea And Vomiting Ondansetron HCl 4 mg 08/26/23 04:52 Ondansetron 4 Mg Rapdis Tablet SL Q6H PRN Nausea And Vomiting Senna 17.2 mg 08/26/23 20:00 Sennosides 8.6 Mg Tablet PO QHS PRN Constipation Simethicone 80 mg 08/26/23 20:12 Simethicone 80 Mg Tab.Chew PO QID PRN Abdominal Distention Temazepam 15 mg 08/26/23 20:12 Temazepam 15 Mg Capsule PO QHS PRN Sleep Witch Jamila/Glycerin 1 pad 08/26/23 20:12 08/26/23 20:39 Glycerin/Witch Jamila Pads TOPICAL 1 pad Q2H PRN Administration Pain Diet Category Date Time Status Regular Consistency Diet Diet 08/26/23 20:12 Active Respiratory Oxygen Delivery Method Room Air Oxygen Delivery Method Room Air Oxygen Delivery Method Room Air Oxygen Delivery Method Room Air Bowels Date of Last Bowel Movement 08/26/23 Date of Last Bowel Movement 08/26/23 Date of Last Bowel Movement 08/26/23 Renal Bladder Pattern Continent
[2023-08-27] MEDS: IBUPROFEN 600 MG TABLET PO (22:48)
[2023-08-28 02:10] VITALS: BP 133/74; PULSE 91; RESP 16; TEMP 36.3
--- NOTE | 2023-08-28 07:42 | PM.OBPN ---
OB - PN: Subj Subjective Patient comments: no complaints and pain well controlled [place] status: doing well Exam Constitutional Vital Signs, click to edit/add: Last Vital Signs Temp 97.3 F L 08/28/23 02:10 Pulse 91 H 08/28/23 02:10 Resp 16 08/28/23 02:10 BP 133/74 08/28/23 02:10 O2 Del Method Room Air 08/28/23 02:10 Documenting provider has reviewed patient's vital signs: yes Common normals: no apparent distress Respiratory Common normals: normal respiratory effort and clear to auscultation bilaterally Cardio Common normals: regular rate and regular rhythm GI Common normals: Normal to inspection, nondistended, normoactive bowel sounds present Extremity Common normals: no calf tenderness OB - PN: A/P Plan - Vaginal Delivery day: 2 Plan: routine care, discharge home and follow up 6 weeks Time Spent with Patient Time: Total time spent is greater than 50% in coordination of care (as documented) at patient's floor/unit and/or counseling patient: Total time spent with greater than 50% in coordination of care (as documented) at patient's floor/unit and/or counseling patient: less than 15 minutes
--- NOTE | 2023-08-28 07:43 | W.PC.ACHO ---
Registration Status: ADM IN Primary Language: Congolese Preferred Language: Congolese Report given Dl Diego RN. Active Medications Generic Name Dose Route Start Last Admin Trade Name Freq PRN Reason Stop Dose Admin Acetaminophen 650 mg 08/26/23 20:12 Acetaminophen 325 Mg Tablet PO Q6H PRN Mild Pain Al Hydroxide/Mg Hydroxide 2,400 mg 08/26/23 20:12 Magnesium Hydroxide 2,400 Mg/10 Ml Oral.Susp PO Q6H PRN Dyspepsia Benzocaine/Menthol 1 applic 08/26/23 20:12 08/26/23 20:39 Benzocaine/Menthol 85 Gram [place] Bottle TOPICAL 1 applic Q2H PRN Administration Pain Diphtheria/Pertussis/Tetanus Vacc 0.5 ml 08/28/23 09:00 Adacel Diph,Pertuss(Acell),Tet Vac/Pf 0.5 Ml Adult Syringe IM 08/28/23 09:01 .ONCE ONE Docusate Sodium 100 mg 08/27/23 09:00 08/27/23 23:12 Docusate Sodium 100 Mg Capsule PO Not Given BID ARIEL Sodium Chloride 1,000 mls @ 125 mls/hr 08/26/23 05:00 08/26/23 13:11 Sodium Chloride 0.9% 1,000 Ml IV 125 mls/hr .Q8H ARIEL Administration Ibuprofen 600 mg 08/26/23 20:12 08/27/23 22:48 Ibuprofen 600 Mg Tablet PO 600 mg Q6H PRN Administration Moderate Pain Measles/Mumps/Rubella Vaccine Live 0.5 ml 08/28/23 09:00 Measles,Mumps,Rubella Vacc/Pf 0.5 Ml Vial SQ 08/28/23 09:01 .ONCE ONE Ondansetron HCl 4 mg 08/26/23 04:52 Ondansetron Pf 4 Mg/2 Ml Vial IV Q6H PRN Nausea And Vomiting Ondansetron HCl 4 mg 08/26/23 04:52 Ondansetron 4 Mg Rapdis Tablet SL Q6H PRN Nausea And Vomiting Senna 17.2 mg 08/26/23 20:00 Sennosides 8.6 Mg Tablet PO QHS PRN Constipation Simethicone 80 mg 08/26/23 20:12 Simethicone 80 Mg Tab.Chew PO QID PRN Abdominal Distention Temazepam 15 mg 08/26/23 20:12 Temazepam 15 Mg Capsule PO QHS PRN Sleep Witch Jamila/Glycerin 1 pad 08/26/23 20:12 08/26/23 20:39 Glycerin/Witch Jamila Pads TOPICAL 1 pad Q2H PRN Administration Pain Respiratory Oxygen Delivery Method Room Air Oxygen Delivery Method Room Air Oxygen Delivery Method Room Air Bowels Date of Last Bowel Movement 08/26/23
--- NOTE | 2023-08-28 09:20 | PC.NURSE ---
Pt. pumping at this time after education regarding keeping their supply.
[2023-08-28 09:23] VITALS: BP 132/75; PULSE 93
[2023-08-28] MEDS: DOCUSATE SODIUM 100 MG CAPSULE PO (09:26)
[2023-08-28] MEDS: IBUPROFEN 600 MG TABLET PO (09:26)
== END 2023-08-28 14:45 | disposition home or self-care (01) | DRG 806 ==
PROVIDERS: Admitting Provider Obstetrics & Gynecology; Visit Provider Obstetrics & Gynecology
DX: O24.424 Gestational diabetes mellitus in childbirth, insulin controlled (principal); O10.02 Pre-existing essential hypertension complicating childbirth; Z37.0 Single live birth; O99.214 Obesity complicating childbirth; E66.01 Morbid (severe) obesity due to excess calories; O70.1 Second degree perineal laceration during delivery; Z3A.39 39 weeks gestation of pregnancy; Z87.891 Personal history of nicotine dependence; Z90.49 Acquired absence of other specified parts of digestive tract; Z83.3 Family history of diabetes mellitus
CPT/HCPCS: 36415; 59050; 59410; 80307; 85025; 85027; 85461; 86850; 86900; 86901; 96365; 96366; 96372; J2790

== ENCOUNTER 2023-09-05 08:06 | Outpatient (OUT) | payer BC, SELFPAY ==
[2023-09-05 11:31] VITALS: BP 133/89; PULSE 90; RESP 18; TEMP 36.8; O2SAT 98
--- NOTE | 2023-09-05 11:41 | PC.NURSE ---
Arrives for follow up visit at 10 days pp. States is pumping for feeds, not placing baby to breast. States pumping every 3-4 hours using a Lansinoh pump, c/o pain and breast discomfort with pumping. Discussed pump quality and recommendations for mom choosing to exclusively pump. Also reviewed sample pumping schedule for increasing and maintaining supply. Reviewed power pumping and herbal supplements that may aid in supply. Verbalized understanding. Pt tearful as she is only pumping 0.5 oz each breast every 3-4 hours. Discussed expectation of NL as 28-34 oz per 24 hour milk production. Reviewed medical history with no PCOS, No thyroid issues, No Breast trauma/surgeries. Pt states was Gest'l diabetic during . Support and encouragement offered as any breast milk for has value for growth and development. Verbalized understanding. Pt tearful yet stoic with emotions and declines to share feelings at this time. States I just want to think over everything Support offered.
--- NOTE | 2023-09-05 11:51 | PC.NURSE ---
Difficult to palpate pulses with abundant edema. Foot warm to touch, has good sensation and able to move toes freely.
== END 2023-09-05 11:30 | disposition home or self-care (01) ==
LOC: FBCO 08:08
PROVIDERS: Visit Provider Obstetrics & Gynecology
DX: Z39.2 Encounter for routine postpartum follow-up (principal)

== ENCOUNTER 2023-09-10 08:51 | Outpatient (OUT) | payer BC, SELFPAY ==
--- NOTE | 2023-09-10 11:35 | PC.NURSE ---
Charlene and Gill arrive for support. Charlene states things are going well, but becomes tearful. Pt does not easily express emotions and says I don't have words for my feelings . Given support and time. Admits to feeling overwhelmed and having a difficult time with transition into motherhood. Pumping is a lot of work and feels overwhelmed with work load. Disappointed that body isn't making milk like I thought it would . States is supportive and helpful when home but is back to work all day and home in the evening. Discussed ways to reduce workload of cleaning pump parts and making supplemental bottle of formula. Plan devised to continue to pump every 3 hours, incorporating power pumping as able, storing flanges in refrigerator between pumps and to clean with hot water and soap daily as well as to use steam bag for sterilizing parts daily or every other day. Verbalized relief that can decrease amount of time doing dishes . Also discussed pre made formula bottle. Making 4 bottles in evening to store in fridge and have ready for night feeds instead of preparing individual bottles. Reviewed mixing formula, appropriate measuring of water and powder formula and being accurate with both for optimal feeding for infant. Given formula prep handout for further education. Verbalized understanding. 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 Encouraged to seek care if feelings intensify or become harmful. Encouraged to contact Dr Cortes for guidance as well. States I just visited the office yesterday about my swollen ankles. Denies sharing emotions and feeling overwhelmed with PCP. Schedules follow up support for 09/16/2023 and aware to call for questions or concerns. Is attentive to baby and bottle feeds her confidently during discussion. Gill appears to be thriving, color pink, respirations easy, good tone. Dressed appropriately for weather, and responds to mom's voice. Infant weighed, 8-13 today, weight 8-7. Above weight at 2 weeks of age. Feeds well with slow paced feeding and retains. Large stool and void changed after feeding. Mom states bonding is good, does not feel like feeding issues are a barrier to bonding with . No concerns noted today. Mom and baby leave ambulatory with new plan for reduced stress and increased self care for mom.
== END 2023-09-10 11:25 | disposition home or self-care (01) ==
LOC: FBCO 08:53
PROVIDERS: Visit Provider Obstetrics & Gynecology
DX: Z39.1 Encounter for care and examination of lactating mother (principal)

== ENCOUNTER 2023-09-19 17:31 | Emergency (ER) | payer BC, SELFPAY ==
[2023-09-19 17:35] VITALS: BP 118/76; PULSE 80; RESP 18; TEMP 36.7; O2SAT 99
--- NOTE | 2023-09-19 17:48 | US_ITS ---
The [address] [address] Patient Name: KIRA CASTELLON MRN: [id number] date: 1990 Sex: F Assigned Patient Location: ED.MAIN Current Patient Location: ED.MAIN Accession/Order Number: [id number] Exam Date: 09/19/2023 18:00 Report Date: 09/19/2023 18:51 At the request of: RADHA ANGELA Procedure: US venous doppler LE RT Right EXAM: US venous doppler LE RT HISTORY: dvt rule out COMPARISON: None. TECHNIQUE: Evaluation of the deep veins of the right lower extremity was performed utilizing B-mode, color flow and spectral analysis. FINDINGS: The visualized vessels comprising the deep venous systems from the common femoral vein through the calf veins demonstrate appropriate compressibility, spontaneous color Doppler flow, and augmentation of flow on spectral Doppler with distal compression. Additional findings: None. US/US venous doppler LE RT IMPRESSION: No sonographic evidence of deep venous thrombosis of the right lower extremity. Electronically authenticated by: KRISTEN ACOSTA Date: 09/19/2023 18:51
--- NOTE | 2023-09-19 18:45 | ED.GENADUL1 ---
HPI - General Adult General Chief complaint: Extremity Problem, Nontraumatic Stated complaint: SWELLING MORE IN R- 3 WKS Time Seen by Provider: 09/19/23 17:37 Source: patient Mode of arrival: walk-in History of Present Illness HPI narrative: Patient is a 32-year-old female who is presenting to the Emergency Room with chief concern of a deep vein thrombosis to the right leg. Patient just delivered her 1st baby 3 weeks ago. Patient has no fever or chills. No chest pain or shortness of breath. No bowel pain, nausea or vomiting. Patient has been having swelling to her legs, patient feels a right leg is more swollen the left leg. Patient's having pain to the right anterior/lateral aspect of her lower leg that feels like the pain starts at the right lateral malleolus and radiates up into the right anterior/lateral aspect of the leg going up until approximately the proximal 3rd of the fibula and in the pain stops. Nose chest pain or shortness of breath. Patient did have gestational diabetes that has resolved. No recent traveling. Patient is breast-feeding. No other acute complaints. . All systems are negative except as noted/marked. All systems reviewed and otherwise negative. . Nurses note and vital signs reviewed and patient is not hypoxic. General: The patient appears well and in no apparent distress. Patient is resting comfortably on cart. Patient is not toxic, lethargic, or listless Skin: Warm, dry, no pallor noted. There is no rash noted. No petechiae, purpura. Head: Normocephalic, atraumatic Eye: Normal conjunctiva, no drainage, EOMI. PERRL Ears, Nose, Mouth, and Throat: oral mucosa is moist. Cardiovascular: Regular Rate and Rhythm, no murmur, gallop, rub Respiratory: Patient is in no distress, no accessory muscle use, lungs are clear to auscultation, no wheezing, rales or rhonchi Back: non-tender, no CVA tenderness bilaterally to percussion. No CT LS midline pain GI: soft, no tenderness Musculoskeletal: Patient has full range of motion of all of the extremities, no motor, sensory, or focal neurological deficits. Patient has no pain to the posterior aspect of the right thigh, popliteal fossa, or calf. Patient does not have reproducible tenderness to palpation to the right anterior/lateral lower leg. Patient states the pain is present when she is plantar dorsiflex and her right foot. Patent right Achilles tendon is intact. Patient has no pain to bilateral malleoli. No significant pitting edema. Neurological: A&O x3, normal speech Psychiatric: Cooperative Related Data Home Medications Medication Instructions Recorded Confirmed aspirin 81 mg capsule 81 mg PO DAILY 08/25/23 08/26/23 insulin NPH isoph U-100 human 100 5 unit subcut .qhs 08/25/23 08/26/23 unit/mL subcutaneous suspension (Humulin N NPH U-100 Insulin (isophane susp)) vits no.130-ferrous fum 1 tab PO DAILY 08/25/23 08/26/23 27 mg iron-folic acid 800 mcg tablet ( Vitamin) Allergies Allergy/AdvReac Type Severity Reaction Status Date / Time No Known Drug Allergies Allergy Verified 08/26/23 06:02 [facility] Medical History (Updated 09/19/23 @ 18:45 by Harlan Amezcua MD) Gestational diabetes mellitus ?O24.419 - Gestational diabetes mellitus in , unspecified control (ICD-10) HTN (hypertension) ?I10 - Essential (primary) hypertension (ICD-10) Surgical History (Updated 08/25/23 @ 15:52 by Magy Tsai RN) History of cholecystectomy ?Z90.49 - Acquired absence of other specified parts of digestive tract (ICD-10) Exam Constitutional Vital Signs, click to edit/add: Last Vital Signs Temp 98.0 F 09/19/23 17:35 Pulse 80 09/19/23 17:35 Resp 18 09/19/23 17:35 BP 118/76 09/19/23 17:35 Pulse Ox 99 09/19/23 17:35 O2 Del Method Room Air 09/19/23 17:35 Course Vital Signs Vital signs: Vital Signs Temperature 98.0 F 09/19/23 17:35 Pulse Rate 80 09/19/23 17:35 Respiratory Rate 18 09/19/23 17:35 Blood Pressure 118/76 09/19/23 17:35 Pulse Oximetry 99 09/19/23 17:35 Oxygen Delivery Method Room Air 09/19/23 17:35 Temperature 98.0 F 09/19/23 17:35 Pulse Rate 80 09/19/23 17:35 Respiratory Rate 18 09/19/23 17:35 Blood Pressure 118/76 09/19/23 17:35 Pulse Oximetry 99 09/19/23 17:35 Oxygen Delivery Method Room Air 09/19/23 17:35 Medical Decision Making MDM Narrative Medical decision making narrative: Patient's ultrasound shows no acute findings. Education a deep vein thrombosis and leg pain was given to patient for educational purposes only at discharge. Patient will follow-up with PCP. Discharge Plan Discharge Chief Complaint: Extremity Problem, Nontraumatic Clinical Impression: Acute leg pain Patient Disposition: Home, Self-Care Time of Disposition Decision: 18:43 Prescriptions / Home Meds: No Action Humulin N NPH U-100 Insulin 100 unit/mL suspension 5 unit SUBCUT .qhs Vitamin 27 mg iron- 800 mcg tablet 1 tab PO DAILY aspirin 81 mg capsule 81 mg PO DAILY Instructions: Deep Vein Thrombosis (ED), Leg Pain (ED) Additional Instructions: Education on deep vein thrombosis was given to you for educational purposes only. You do not have a deep vein thrombosis, your ultrasound showed no signs of deep vein thrombosis. Stand Alone Forms: Portal Instructions Referrals: Physician,Non-Staff, [Primary Care Provider] - 1 week Discharge Date/Time: 09/19/23 18:05
== END 2023-09-19 18:49 | disposition home or self-care (01) ==
PROVIDERS: Emergency Provider Emergency Medicine
DX: O90.89 Other complications of the puerperium, not elsewhere classified (principal); M79.604 Pain in right leg; Z90.49 Acquired absence of other specified parts of digestive tract
CPT/HCPCS: 93971; 99284

== ENCOUNTER 2024-03-18 20:08 | Outpatient (REF) | payer BC, SELFPAY ==
--- OUTSIDE RECORDS SUMMARY | 2024-03-18 20:13 | XMS_ITS | CCD ---
Author Organization [facility] Care Team Providers Care Supply Teacher Name Role Phone PETRA ., DR WHITAKER Admitting Unavailabl e KARASIK ., DR WHITAKER Attending Unavailabl e KARASIK ., DR WHITAKER Consulting Unavailabl e MISC, DR BELL Primary Care Unavailable ISABEL ., KESHA Admitting Unavailable DICKSON ., DR GUZMAN Consulting Unavailable REQUEST, NONE LISTED Primary Care Unavaila ble ISABEL ., KESHA Attending Unavailable DICKSON ., DR GUZMAN Attending Unavailable DICKSON ., DR GUZMAN Consulting Unavailable REQUEST, DR NONE LISTED Primary Care Unavaila ble DICKSON ., DR GUZMAN Admitting Unavailable DICKSON ., DR GUZMAN Attending Unavailable DICKSON ., DR GUZMAN Consulting Unavailable REQUEST, NONE LISTED Primary Care Unavaila ble DICKSON ., DR GUZMAN Admitting Unavailable ZIEBER, DR YOMAIRA Godinez Consulting Unavailable REQUEST, DR CHAO LISTED Consulting Unavaila ble DICKSON ., DR GUZMAN Attending Unavailable DICKSON ., DR GUZMAN Consulting Unavailable REQUEST, NONE LISTED Primary Care Unavaila ble DICKSON ., DR GUZMAN Admitting Unavailable ZIEBER, DR YOMAIRA Godinez Consulting Unavailable MISC, DR BELL Primary Care Unavailable DEISI ., QUINTIN Admitting Unavailable DEISI ., QUINTIN Attending Unavailable DEISI ., QUINTIN Consulting Unavailable DICKSON ., DR GUZMAN Attending Unavailable REQUEST, DR CHAO LISTED Primary Care Unavaila ble DICKSON ., DR GUZMAN Admitting Unavailable DICKSON ., DR GUZMAN Attending Unavailable REQUEST, NONE LISTED Primary Care Unavaila ble DICKSON ., DR GUZMAN Consulting Unavailable DICKSON ., DR GUZMAN Admitting Unavailable DICKSON ., DR GUZMAN Attending Unavailable DICKSON ., DR GUZMAN Consulting Unavailable REQUEST, DR NONE LISTED Primary Care Unavaila ble DICKSON ., DR GUZMAN Admitting Unavailable ISABEL, KESHA Attending Unavailable Problems Problem Classification Problem Date Documented Da te Episodic/Chronic Diabetes mellitus without complication (4 sources) Impaired glucose tolerance (oral); Translations: [IMPAIRED GLUCOSE TOLERANCE ORAL] Onset: 03-29-2023 Episodic Fluid and electrolyte disorders (2 sources) Dehydration; Translations: [Hypokalemia] Onset: 01-30-2023 Episodic Immunizations and screening for infectious disease (2 sources) Encounter for screening for human papillomavirus (HPV); Translations: [Contact with and (suspected) exposure to infections with a predominantly sexual mode of transmission] Onset: 02-21-2023 Episodic Menstrual disorders (3 sources) Irregular menstruation, unspecified; Translations: [IRREGULAR MENSTRUATION UNSPECIFIED] Onset: 01-23-2023 Chronic Nausea and vomiting (4 sources) Nausea with vomiting, unspecified; Translations: [NAUSEA WITH VOMITING UNSPECIFIED] Onset: 01-28-2023 Episodic Other complications of (1 source) Other specified related conditions, first trimester; Translations: [OTH SPEC PREG RELATED COND 1ST TRI] Onset: 01-30-2023 Episodic Other female genital disorders (1 source) Other specified noninflammatory disorders of vagina; Translations: [OTH SPEC NONINFLAMMATORY D/O VAGINA] Onset: 02-21-2023 Episodic Other gastrointestinal disorders (1 source) Diarrhea, unspecified; Translations: [DIARRHEA UNSPECIFIED] Onset: 01-30-2023 Episodic Other and delivery including normal (9 sources) Encounter for supervision of normal , unspecified, second trimester; Translations: [Encounter for supervision of normal , unspecified, first trimester] Onset: 01-31-2023 Episodic Other screening for suspected conditions (not mental disorders or infectious disease) (5 sources) Encounter for screening for malignant neoplasm of cervix; Translations: [Encounter for other screening for genetic and chromosomal anomalies] Onset: 02-03-2023 Episodic Residual codes; unclassified (4 sources) Personal history of other complications of , childbirth and the puerperium; Translations: [PERS HX OTH COMP PG CHILDBIRTH AND PP] Onset: 02-18-2023 Episodic Residual codes; unclassified (1 source) 9 weeks gestation of ; Translations: [9 WEEKS GESTATION OF ] Onset: 01-30-2023 Episodic Results Test Name Value Interpretation Reference Range Facility GTT 3 HR PREGon 03-29-2023 Glucose [Mass/Vol] 107 mg/dL Critically high 74-106 T he [facility] Comment on above: Performed By: #### G TT3P #### [facility] [address] [address] [address] Loyd Coppola Glucose [Mass/Vol] 203 mg/dL Normal [facility] Comment on above: Performed By: #### G TT3P #### [facility] [address] [address] [address] Loyd Coppola Glucose [Mass/Vol] 191 mg/dL Normal [facility] Comment on above: Performed By: #### G TT3P #### [facility] [address] [address] [address] Loyd Coppola Glucose [Mass/Vol] 121 mg/dL Normal [facility] Comment on above: Performed By: #### G TT3P #### [facility] [address] [address] [address] Loyd Coppola AFP MATERNAL FOR SPINA BIFID Aon 03-23-2023 AFP MoM 0.70 Normal [facility] Comment on above: Performed By: #### Suzi ZAVALETA UMICRO #### [facility] [address] [address] [address] Loyd Coppola AFP Value 18.1 ng/mL Normal [facility] Comment on above: Performed By: #### Suzi ZAVALETA, UMICRO #### [facility] [address] [address] [address] Loyd Coppola AFP, Serum for Spina Bifida Report Normal [facility] Comment on above: Performed By: #### Suzi ZAVALETA, UMICRO #### [facility] [address] [address] [address] Loyd Coppola Comment Comment Normal [facility] Comment on above: Result Comment: Eboni Shah, Ph.D., [facility] Director . References: Available Upon Request. . Multiples Of Median Cutoffs For AFP Elevations Steiner 2.5 Black 2.8 IDD 2.0 Twins 4.5 Abbreviation Definitions IDD - Insulin Dep Diabetes OSBR - Open Spina Bifida Risk . For further inquiries contact [email or web address] at [phone]. . This test was developed and its performance characteristics determined by [employer]. It has not been cleared or approved by the Food and Drug Administration. Performed By: #### JUSTIN CHAVARRIARO #### [facility] [address] [place] [address] Dr. Loyd Kohli Age Collection Date 16.4 weeks Normal [facility] Comment on above: Performed By: #### Suzi ZAVALETA UMICRO #### [facility] [address] [place] [address] Dr. Loyd Coppola Gestat, Age Based on As provided [facility] Comment on above: Result Comment: Reca lculations are not recommended when gestational dating by LMP and ultrasound are within 10 days. Performed By: #### JUSTIN CHAVARRIARO #### [facility] [address] [place] [address] Dr. Loyd Coppola Insulin Dep Diabetes No Normal [facility] Comment on above: Performed By: #### JUSTIN CHAVARRIARO #### [facility] [address] [place] [address] Dr. Loyd Coppola Interpretation Comment Normal [facility] Comment on above: Result Comment: Inte rpretation: Screen Negative . This result is screen negative for OSB. The AFP MoM calculated is based on the gestational age provided. MS-AFP can identify up to 80% of open neural tube defects. Closed neural tube defects and some open defects may not be detected by this test. This test does not screen for Down Syndrome or Trisomy 18. If screening for Down Syndrome or Trisomy 18 is desired, contact [facility] to discuss available options. The [employer] recommends amniocentesis be offered to women age 35 and older. Performed By: #### JUSTIN CHAVARRIARO #### [facility] [address] [place] [address] Dr. Loyd Coppola [age] Normal [facility] Comment on above: Performed By: #### Suzi ZAVALETA UMICRO #### [facility] [address] [place] [address] Dr. Loyd Coppola Multiple Gestation No Normal [facility] Comment on above: Performed By: #### Suzi ZAVALETA UMICRO #### [facility] [address] [address] [address] Loyd Coppola OSBR Risk 1 [place] [address] Normal [facility] Comment on above: Performed By: #### Suzi ZAVALETA UMICRO #### [facility] [address] [place] [address] Dr. Loyd Coppola PDF . [facility] Comment on above: Performed By: #### Suzi ZAVALETA UMICRO #### [facility] [address] [address] [address] L[address] Co[address] Race [facility] Comment on above: Performed By: #### uSzi ZAVALETA UMICRO #### [facility] [address] [place] [address] Dr. Loyd Coppola Test Results: Negative [facility] Comment on above: Performed By: #### Suzi ZAVALETA UMICRO #### [facility] [address] [place] [address] Dr. Loyd Coppola GLUCOSE - 1HRon 03-21-2023 Glucose [Mass/Vol] 165 mg/dL Critically high 74-106 T [facility] Comment on above: Performed By: #### G LU1HR #### [facility] [address] [place] [address] Dr. Loyd Coppola PAP ACOG PANEL 2: 30 to 65on 02-19-[address] [facility] Comment on above: Result Comment: Perf ormed at: WB Performed By: #### Suzi ZAVALETA UMICRO #### [facility] [address] [place] [address] Dr. Loyd Coppola Age Gdln ACOG Testing 30-65 [facility] Comment on above: Performed By: #### Suzi ZAVALETA UMICRO #### [facility] [address] [place] [address] Dr. Loyd Coppola DIAGNOSIS: Comment [facility] Comment on above: Result Comment: NEGA TIVE FOR INTRAEPITHELIAL LESION OR MALIGNANCY. Performed at: WB Performed By: #### MORGAN CHAVARRIAICRO #### [facility] [address] [address] [address] Loyd Coppola HPV Aptima Negative Normal Negative [facility] Comment on above: Result Comment: This nucleic acid amplification test detects fourteen high-risk HPV types (16,18,31,33,35,39,45,51,52,56,58,59,66,68) without differentiation. Performed at: =G Performed By: #### E RUR, UMICRO #### [facility] [address] [address] [address] Loyd Coppola HPV Genotype Reflex Comment Normal [facility] Comment on above: Result Comment: Crit eria not met, HPV Genotype not performed. Performed at: WB Performed By: #### E RUR, UMICRO #### [facility] [address] [place] [address] Dr. Loyd Coppola Methodology: Comment Normal [facility] Comment on above: Result Comment: This liquid based ThinPrep(R) pap test was screened with the use of an image guided system. Performed at: WB Performed By: #### E RUR, UMICRO #### [facility] [address] [place] [address] Dr. Loyd Coppola Note: Comment Normal [facility] Comment on above: Result Comment: The Pap smear is a screening test designed to aid in the detection of premalignant and malignant conditions of the uterine cervix. It is not a diagnostic procedure and should not be used as the sole means of detecting cervical cancer. Both false-positive and false-negative reports do occur. . Performed at: WB Performed By: #### E RUR, UMICRO #### [facility] [address] [place] [address] Dr. Loyd Coppola Performed by: Comment Normal [facility] Comment on above: Result Comment: Lidya Kirkpatrick, Transition Program Manager (ASCP) Performed at: WB Performed By: #### E RUR, UMICRO #### [facility] [address] [address] [address] Loyd Coppola Specimen adequacy: Comment Normal [facility] Comment on above: Result Comment: Sati sfactory for evaluation. No endocervical component is identified. Performed at: WB Performed By: #### E JESUS ZAVALETA #### [facility] [address] [place] [address] Dr. Loyd Coppola US PREG CERVICAL LENGTHon US PREG CERVICAL LENGTH EXAMINATION: US PREG CERVICAL LENGTH HISTORY: History of complication of , childbirth and/or puerperium COMPARISON: Ultrasound transvaginal 01/23/2023 TECHNIQUE: Transabdominal and transvaginal sonographic examination for cervical length. FINDINGS: CERVIX LENGTH: 4.8 cm, closed. HEART RATE: 171 bpm Age by EDC: 12 weeks 0 days LELA by EDC: 09/02/2023 IMPRESSION: 1. Single live intrauterine . 2. Closed cervix 4.8 cm in length. Electronically authenticated by: YOMAIRA GONZALEZ Date: 2023-02-18 15:51 Normal [facility] CHLAMYDIA/GONOCOCCUS ANTONELLA (SW AB/URINE/PAPon 02-15-2023 Chlamydia trachomatis, ANTONELLA Negative Normal Negative [facility] Comment on above: Performed By: #### C T/NGNA #### [facility] [address] [place] [address] Dr. Loyd Coppola Neisseria gonorrhoeae, ANTONELLA Negative Normal Negative [facility] Comment on above: Performed By: #### C T/NGNA #### [facility] [address] [place] [address] Dr. Loyd Coppola VAGINITIS/VAGINOSIS DNA PROB Vineet 02-15-2023 Leigha species Negative Normal Negative [facility] Comment on above: Performed By: #### C BC #### [facility] [address] [place] [address] Dr. Loyd Coppola Gardnerella vaginalis Negative Normal Negative [facility] Comment on above: Performed By: #### C BC #### [facility] [address] [place] [address] Dr. Loyd Coppola Trichomonas vaginalis Negative Normal Negative [facility] Comment on above: Performed By: #### C BC #### [facility] [address] [place] [address] Dr. Loyd Coppola HEP B SURFACE ANTIGEN SCREEN on 02-01-2023 HBsAg Screen Negative Normal Negative [facility] Comment on above: Performed By: #### H BSANS #### [facility] [address] [place] [address] Dr. Loyd Coppola HEPATITIS C VIRUS AB W/ REFL EX QUANTon 02-01-2023 HCV AB Non-Reactive Normal Non Reactive [facility] Comment on above: Performed By: #### C BC #### [facility] [address] [place] [address] Dr. Loyd Coppola Interpretation: Comment Normal [facility] Comment on above: Result Comment: Not infected with HCV unless early or acute infection is suspected (which may be delayed in an immunocompromised individual), or other evidence exists to indicate HCV infection. Performed By: #### C BC #### [facility] [address] [place] [address] Dr. Loyd Coppola HIV 1 AND 2 WITH REFLEXon HIV Screen 4th Generation wRfx Non-Reactive Normal Non Reactive [facility] Comment on above: Result Comment: HIV Negative HIV-1/HIV-2 antibodies and HIV-1 p24 antigen were NOT detected. There is no laboratory evidence of HIV infection. Performed By: #### C BC #### [facility] [address] [place] [address] Dr. Loyd Coppola RPR QUANTon 02-01-2023 Rapid Plasma Reagin, Quant Non-Reactive Normal NonRea<1:1 [facility] Comment on above: Result Comment: Plea se Note: This test does not meet current guidelines for screening and diagnosis of syphilis. This test is intended for following treatment response in patients being treated for syphilis infection. To screen for syphilis infection, a reflex cascade that includes both RPR and a treponema-specific assay should be utilized, such as Treponema pallidum (Syphilis) Screening [place] (836052) or Rapid Plasma Reagin (RPR) Test With Reflex to Quantitative RPR and Confirmatory Treponema pallidum Antibodies (473551). Performed By: #### E RUJESUS Godinez #### [facility] [address] [place] [address] Dr. Loyd Coppola RUBELLA AB IGGon 02-01-2023 Rubella Antibodies, IgG 1.08 index Normal Immune >0.99 [facility] Comment on above: Result Comment: Non- immune <0.90 Equivocal 0.90 - 0.99 Immune >0.99 Performed By: #### C BC #### [facility] [address] [place] [address] Dr. Loyd Coppola BOX TEST SENT OUTon 02-01-20 23 SENT TO REF LAB 01/31/23 Normal [facility] Comment on above: Performed By: #### E SUHARJUSTINRO #### [facility] [address] [place] [address] Dr. Loyd Coppola CBC AUTO DIFFon 01-31-2023 BASO # 0.0 103/ul Normal 0.0-0.1 [facility] Comment on above: Performed By: #### C BC #### [facility] [address] [place] [address] Dr. Loyd Coppola Basophils/100 WBC (Bld) 0.2 % Normal 0.2-2.0 [facility] Comment on above: Performed By: #### C BC #### [facility] [address] [place] [address] Dr. Loyd Coppola EO # 0.1 103/ul Normal 0.0-0.7 [facility] Comment on above: Performed By: #### C BC #### [facility] [address] [place] [address] Dr. Loyd Coppola Eosinophils/100 WBC (Bld) 1.5 % Normal 0.9-7.0 [facility] Comment on above: Performed By: #### C BC #### [facility] [address] [place] [address] Dr. Loyd Coppola Erythrocyte distribution width (RBC) [Ratio] 12.3 % Normal 11.0-15.0 [facility] Comment on above: Performed By: #### C BC #### [facility] [address] [place] [address] Dr. Loyd Coppola Hematocrit (Bld) [Volume fraction] 39.3 % Normal 36.0-48.0 [facility] Comment on above: Performed By: #### C BC #### [facility] [address] [address] [address] Loyd Coppola Hemoglobin (Bld) [Mass/Vol] 14.3 g/dL Normal 12.0-16.0 [facility] Comment on above: Performed By: #### C BC #### [facility] [address] [address] [address] Loyd Coppola IG # 0.03 10e3/ul Normal 0.00-0.03 [facility] Comment on above: Performed By: #### C BC #### [facility] [address] [place] [address] Dr. Loyd Coppola IG % 0.3 % Normal 0.0-0.5 [facility] Comment on above: Performed By: #### C BC #### [facility] [address] [place] [address] Dr. Loyd Coppola LYMPH # 2.3 103/ul Normal 1.2-3.8 [facility] Comment on above: Performed By: #### C BC #### [facility] [address] [place] [address] Dr. Loyd Coppola Lymphocytes/100 WBC (Bld) 24.8 % Normal 20.5-60.0 [facility] Comment on above: Performed By: #### C BC #### [facility] [address] [place] [address] Dr. Loyd Coppola MANUAL DIFF REQ NO Normal [facility] Comment on above: Performed By: #### C BC #### [facility] [address] [place] [address] Dr. Lody Coppola MCH (RBC) [Entitic mass] 32.6 pg Normal 26.7-34.0 [facility] Comment on above: Performed By: #### C BC #### [facility] [address] [place] [address] Dr. Loyd Coppola MCHC (RBC) [Mass/Vol] 36.4 g/dL Critically high 29.9-35.2 [facility] Comment on above: Performed By: #### C BC #### [facility] [address] [address] [address] Loyd Coppola MCV (RBC) [Entitic vol] 89.7 fL Normal 81.0-99.0 [facility] Comment on above: Performed By: #### C BC #### [facility] [address] [address] [address] Loyd Coppola MONO # 0.5 103/ul Normal 0.3-0.8 [facility] Comment on above: Performed By: #### C BC #### [facility] [address] [address] [address] Loyd Coppola Monocytes/100 WBC (Bld) 5.2 % Normal 1.7-12.0 [facility] Comment on above: Performed By: #### C BC #### [facility] [address] [address] [address] Loyd Coppola NEUT # 6.4 103/ul Normal 1.4-6.5 [facility] Comment on above: Performed By: #### C BC #### [facility] [address] [address] [address] Loyd Coppola Neutrophils/100 WBC (Bld) 68.0 % Normal 43.0-75.0 [facility] Comment on above: Performed By: #### C BC #### [facility] [address] [address] [address] Loyd Coppola Platelet mean volume (Bld) [Entitic vol] 10.5 fL Normal 9.5-13.5 [facility] Comment on above: Performed By: #### C BC #### [facility] [address] [address] [address] Loyd Coppola PLT 171 103/ul Normal 150-450 [facility] Comment on above: Performed By: #### C BC #### [facility] [address] [address] [address] Loyd Coppola RBC 4.38 106/ul Normal 4.20-5.40 [facility] Comment on above: Performed By: #### C BC #### [facility] [address] [place] [address] Dr. Loyd Coppola WBC 9.4 103/ul Normal 4.0-11.0 [facility] Comment on above: Performed By: #### C BC #### [facility] [address] [place] [address] Dr. Loyd Coppola CULTURE URINEon 01-31-2023 CULTURE URINE Culture Observations : LIGHT GROWTH OF MIXED GENITAL CASSIDY. NO POTENTIAL PATHOGENS SEEN. Normal [facility] Comment on above: Performed By: #### C BC #### [facility] [address] [place] [address] Dr. Loyd Coppola CULTURE URINE Isolate 1 Escherichia coli 25,000 cfu/mL of ORGANISM 1 Escherichia coli ANTIBIOTIC M.I.C RX STATUS Ampicillin 4 S F Ampicillin/Sulbactam <=2 S F Piperacillin/Tazobacta m <=4 S F Cefazolin <=4 S F Ceftazidime <=1 S F Ceftriaxone <=1 S F Ertapenem <=0.5 S F Imipenem <=0.25 S F Amikacin <=2 S F Gentamicin <=1 S F Tobramycin <=1 S F Ciprofloxacin <=0.25 S F Levofloxacin <=0.12 S F Nitrofurantoin <=16 S F Trimethoprim/Sulfameth oxazole <=20 S F Normal [facility] Comment on above: Performed By: #### C BC #### [facility] [address] [place] [address] Dr. Loyd Coppola GLYCOHEMOGLOBIN A1Con 2022 ADA RECOMMENDATION SEE BELOW Normal [facility] Comment on above: Result Comment: ADA RECOMMENDED LIMIT 4.0 - 6.0 ADA THERAPEUTIC TARGET < 7.0 ACTION SUGGESTED > 7.0 Performed By: #### A 1C #### [facility] [address] [place] [address] Dr. Loyd Coppola Glucose [Mass/Vol] 100 mg/dL Normal [facility] Comment on above: Performed By: #### A 1C #### [facility] [address] [place] [address] Dr. Loyd Coppola HbA1c (Bld) [Mass fraction] 5.1 % Normal 4.5-6.2 [facility] Comment on above: Performed By: #### A 1C #### [facility] [address] [place] [address] Dr. Loyd Coppola TSHon 01-31-2023 TSH 0.495 uIU/mL Normal 0.358-3.740 [facility] Comment on above: Performed By: #### E JESUS ZAVALETA #### [facility] [address] [place] [address] Dr. Loyd Coppola TYPE AND SCREENon 01-31-2023 TYPE AND SCREEN Negative Normal [facility] Comment on above: Performed By: #### C BC #### [facility] [address] [place] [address] Dr. Loyd Coppola CBC AUTO DIFFon 01-28-2023 BASO # 0.0 103/ul Normal 0.0-0.1 [facility] Comment on above: Performed By: #### C BC #### [facility] [address] [place] [address] Dr. Loyd Coppola Basophils/100 WBC (Bld) 0.2 % Normal 0.2-2.0 [facility] Comment on above: Performed By: #### C BC #### [facility] [address] [place] [address] Dr. Loyd Coppola EO # 0.1 103/ul Normal 0.0-0.7 [facility] Comment on above: Performed By: #### C BC #### [facility] [address] [place] [address] Dr. Loyd Coppola Eosinophils/100 WBC (Bld) 0.8 % Critically low 0.9-7.0 [facility] Comment on above: Performed By: #### C BC #### [facility] [address] [place] [address] Dr. Loyd Coppola Erythrocyte distribution width (RBC) [Ratio] 12.3 % Normal 11.0-15.0 [facility] Comment on above: Performed By: #### C BC #### [facility] [address] [place] [address] Dr. Loyd Coppola Hematocrit (Bld) [Volume fraction] 45.0 % Normal 36.0-48.0 [facility] Comment on above: Performed By: #### C BC #### [facility] [address] [place] [address] Dr. Loyd Coppola Hemoglobin (Bld) [Mass/Vol] 16.3 g/dL Critically high 12.0-16.0 [facility] Comment on above: Performed By: #### C BC #### [facility] [address] [place] [address] Dr. Loyd Coppola IG # 0.03 10e3/ul Normal 0.00-0.03 [facility] Comment on above: Performed By: #### C BC #### [facility] [address] [place] [address] Dr. Loyd Coppola IG % 0.4 % Normal 0.0-0.5 [facility] Comment on above: Performed By: #### C BC #### [facility] [address] [place] [address] Dr. Loyd Coppola LYMPH # 1.4 103/ul Normal 1.2-3.8 [facility] Comment on above: Performed By: #### C BC #### [facility] [address] [place] [address] Dr. Loyd Coppola Lymphocytes/100 WBC (Bld) 16.8 % Critically low 20.5-60.0 [facility] Comment on above: Performed By: #### C BC #### [facility] [address] [place] [address] Dr. Loyd Coppola MANUAL DIFF REQ NO Normal [facility] Comment on above: Performed By: #### C BC #### [facility] [address] [place] [address] Dr. Loyd Coppola MCH (RBC) [Entitic mass] 32.1 pg Normal 26.7-34.0 [facility] Comment on above: Performed By: #### C BC #### [facility] [address] [place] [address] Dr. Loyd Coppola MCHC (RBC) [Mass/Vol] 36.2 g/dL Critically high 29.9-35.2 [facility] Comment on above: Performed By: #### C BC #### [facility] [address] [place] [address] Dr. Loyd Coppola MCV (RBC) [Entitic vol] 88.8 fL Normal 81.0-99.0 [facility] Comment on above: Performed By: #### C BC #### [facility] [address] [place] [address] Dr. Loyd Coppola MONO # 0.9 103/ul Critically high 0.3-0.8 [facility] Comment on above: Performed By: #### C BC #### [facility] [address] [place] [address] Dr. Loyd Coppola Monocytes/100 WBC (Bld) 10.5 % Normal 1.7-12.0 [facility] Comment on above: Performed By: #### C BC #### [facility] [address] [place] [address] Dr. Loyd Coppola NEUT # 6.0 103/ul Normal 1.4-6.5 [facility] Comment on above: Performed By: #### C BC #### [facility] [address] [place] [address] Dr. Loyd Coppola Neutrophils/100 WBC (Bld) 71.3 % Normal 43.0-75.0 [facility] Comment on above: Performed By: #### C BC #### [facility] [address] [place] [address] Dr. Loyd Coppola Platelet mean volume (Bld) [Entitic vol] 10.7 fL Normal 9.5-13.5 [facility] Comment on above: Performed By: #### C BC #### [facility] [address] [place] [address] Dr. Loyd Coppola PLT 174 103/ul Normal 150-450 [facility] Comment on above: Performed By: #### C BC #### [facility] [address] [place] [address] Dr. Loyd Coppola RBC 5.07 106/ul Normal 4.20-5.40 [facility] Comment on above: Performed By: #### C BC #### [facility] [address] [place] [address] Dr. Loyd Coppola WBC 8.4 103/ul Normal 4.0-11.0 [facility] Comment on above: Performed By: #### C BC #### [facility] [address] [place] [address] Dr. Loyd Coppola ER URINE PROFILEon 3 Bilirubin Ql (U) SMALL Abnormal NEGATIVE [facility] Comment on above: Performed By: #### Suzi ZAVALETA UMICRO #### [facility] [address] [place] [address] Dr. Loyd Coppola Clarity (U) CLEAR Normal CLEAR [facility] Comment on above: Performed By: #### Suzi ZAVALETA UMICRO #### [facility] [address] [place] [address] Dr. Loyd Coppola Color (U) YELLOW Normal YELLOW [facility] Comment on above: Performed By: #### Suzi ZAVALETA UMICRO #### [facility] [address] [place] [address] Dr. Loyd Coppola ERUAHYonatan A micrscopic examination will be performed if indicated. Normal [facility] Comment on above: Performed By: #### Suzi ZAVALETA UMICRO #### [facility] [address] [place] [address] Dr. Loyd Coppola Glucose Ql (U) Negative Normal NEGATIVE [facility] Comment on above: Performed By: #### Suzi ZAVALETA UMICRO #### [facility] [address] [place] [address] Dr. Loyd Coppola Hemoglobin Ql (U) TRACE-INTACT Abnormal NEGATIVE [facility] Comment on above: Performed By: #### Suzi ZAVALETA UMICRO #### [facility] [address] [place] [address] Dr. Loyd Coppola Ketones Ql (U) 80 mg/dl Abnormal NEGATIVE [facility] Comment on above: Performed By: #### Suzi ZAVALETA UMICRO #### [facility] [address] [place] [address] Dr. Loyd Coppola LEUKOCYTES Negative Normal NEGATIVE [facility] Comment on above: Performed By: #### JESUS CHAVARRIA #### [facility] [address] [place] [address] Dr. Loyd Coppola Nitrite Ql (U) Negative Normal NEGATIVE [facility] Comment on above: Performed By: #### JESUS CHAVARRIA #### [facility] [address] [place] [address] Dr. Loyd Coppola pH (U) 6.5 [pH] Normal 5-9 [facility] Comment on above: Performed By: #### JESUS CHAVARRIA #### [facility] [address] [place] [address] Dr. Loyd Coppola Protein (U) [Mass/Vol] 100 mg/dL Abnormal NEGATIVE/ TRACE [facility] Comment on above: Performed By: #### JESUS CHAVARRIA #### [facility] [address] [place] [address] Dr. Loyd Coppola SPEC GRAVITY 1.030 Abnormal 1.005-<=1.025 [facility] Comment on above: Performed By: #### JESUS CHAVARRIA #### [facility] [address] [place] [address] Dr. Loyd Coppola UR MICRO IND INDICATED Normal [facility] Comment on above: Performed By: #### JESUS CHAVARRIA #### [facility] [address] [place] [address] Dr. Loyd Coppola Urobilinogen Qn (U) 0.2 {Taylor'U}/dL Normal 0.2 - 1. 0 [facility] Comment on above: Performed By: #### JESUS CHAVARRIA #### [facility] [address] [place] [address] Dr. Loyd Coppola PROF 14(COMP METB)on 023 Albumin [Mass/Vol] 3.5 g/dL Normal 3.4-5.0 [facility] Comment on above: Performed By: #### C BC #### [facility] [address] [place] [address] Dr. Loyd Coppola Albumin/Globulin [Mass ratio] 0.9 {ratio} Normal [facility] Comment on above: Performed By: #### C BC #### [facility] [address] [place] [address] Dr. Loyd Coppola ALP [Catalytic activity/Vol] 61 U/L Normal 46-116 [facility] Comment on above: Performed By: #### C BC #### [facility] [address] [place] [address] Dr. Loyd Coppola ALT [Catalytic activity/Vol] 29 U/L Normal 14-59 [facility] Comment on above: Performed By: #### C BC #### [facility] [address] [place] [address] Dr. Loyd Coppola Anion gap [Moles/Vol] 12.0 mmol/L Normal [facility] Comment on above: Performed By: #### C BC #### [facility] [address] [place] [address] Dr. Loyd Coppola AST [Catalytic activity/Vol] 24 U/L Normal 15-37 [facility] Comment on above: Performed By: #### C BC #### [facility] [address] [place] [address] Dr. Loyd Coppola Bilirubin [Mass/Vol] 0.4 mg/dL Normal 0.2-1.0 [facility] Comment on above: Performed By: #### C BC #### [facility] [address] [place] [address] Dr. Loyd Coppola Calcium [Mass/Vol] 8.6 mg/dL Normal 8.5-10.1 [facility] Comment on above: Performed By: #### C BC #### [facility] [address] [place] [address] Dr. Loyd Coppola Chloride [Moles/Vol] 99 mmol/L Normal 98-107 [facility] Comment on above: Performed By: #### C BC #### [facility] [address] [place] [address] Dr. Loyd Coppola CO2 [Moles/Vol] 24.9 mmol/L Normal 21.0-32.0 [facility] Comment on above: Performed By: #### C BC #### [facility] [address] [address] [address] Loyd Coppola Creatinine [Mass/Vol] 0.55 mg/dL Normal 0.55-1.02 [facility] Comment on above: Performed By: #### C BC #### [facility] [address] [address] [address] Loyd Coppola EGFR-AF CAMEROONIAN >60 Normal >=60 [facility] Comment on above: Performed By: #### C BC #### [facility] [address] [address] [address] Loyd Coppola EGFR-NON AF CAMEROONIAN >60 Normal >=60 [facility] Comment on above: Performed By: #### C BC #### [facility] [address] [address] [address] Loyd Coppola Globulin (S) [Mass/Vol] 3.8 g/dL Normal [facility] Comment on above: Performed By: #### C BC #### [facility] [address] [address] [address] Loyd Coppola Glucose [Mass/Vol] 106 mg/dL Normal 74-106 [facility] Comment on above: Performed By: #### C BC #### [facility] [address] [address] [address] Loyd Coppola Potassium [Moles/Vol] 2.9 mmol/L Critically low 3.5-5.1 [facility] Comment on above: Performed By: #### C BC #### [facility] [address] [address] [address] Loyd Coppola Protein [Mass/Vol] 7.3 g/dL Normal 6.4-8.2 [facility] Comment on above: Performed By: #### C BC #### [facility] [address] [address] [address] Loyd Coppola Sodium [Moles/Vol] 135 mmol/L Critically low 136-145 [facility] Comment on above: Performed By: #### C BC #### [facility] [address] [place] [address] Dr. Loyd Coppola Urea nitrogen [Mass/Vol] 12.0 mg/dL Normal 7.0-18.0 [facility] Comment on above: Performed By: #### C BC #### [facility] [address] [place] [address] Dr. Loyd Coppola Urea nitrogen/Creatinine [Mass ratio] 21.8 mg/mg Normal [facility] Comment on above: Performed By: #### C BC #### [facility] [address] [place] [address] Dr. Loyd Coppola URINE MICROSCOPIC ONLYon BACTERIA MODERATE Abnormal NONE SEEN [facility] Comment on above: Performed By: #### Suzi ZAVALETA UMICRO #### [facility] [address] [place] [address] Dr. Loyd Coppola Bacteria identified Cx Nom (U) INDICATED Normal [facility] Comment on above: Performed By: #### Suzi ZAVALETA UMICRO #### [facility] [address] [place] [address] Dr. Loyd Coppola CAST NONE SEEN Normal NONE SEEN [facility] Comment on above: Performed By: #### Suzi ZAVALETA UMICRO #### [facility] [address] [place] [address] Dr. Loyd Coppola Crystals LM Nom (Urine sed) NONE SEEN Normal NONE SEEN [facility] Comment on above: Performed By: #### Suzi ZAVALETA UMICRO #### [facility] [address] [place] [address] Dr. Loyd Coppola Epithelial cells LM Ql (Urine sed) MANY Abnormal NONE SEEN /RARE [facility] Comment on above: Performed By: #### Suzi ZAVALETA UMICRO #### [facility] [address] [place] [address] Dr. Loyd Coppola MUCOUS SMALL Abnormal NONE SEEN [facility] Comment on above: Performed By: #### Suzi ZAVALETA UMICRO #### [facility] [address] [place], [place] [id number] Dr. Loyd Coppola RBC 0-2 Normal 0-2 [facility] Comment on above: Performed By: #### JESUS CHAVARRIA #### [facility] [address] [place] [address] Dr. Loyd Coppola WBC 2-5 Abnormal NONE SEEN [facility] Comment on above: Performed By: #### JESUS CHAVARRIA #### [facility] [address] [place] [address] Dr. Loyd Coppola US PREG TVon 01-23-2023 US PREG TV EXAMINATION: US PREG TV HISTORY: Missed period COMPARISON: No relevant comparison available. FINDINGS: GESTATIONAL SAC: Present and normal appearing. YOLK SAC: Present and normal appearing. POLE: Present and normal appearing. CARDIAC: Present. UTERUS: Normal size and appearance. OVARIES: Right: Normal. Left: Normal. CERVIX: 3.9 cm in length and closed. CUL-DE-SAC: Normal. OTHER: None. AGE BY LMP: 9 weeks 0 days LELA BY LMP: 08/28/2023 AGE BY US CRL: 8 weeks 2 days LELA BY US CRL: 09/02/2023 IMPRESSION: 1. Single live intrauterine . Electronically authenticated by: YOMAIRA GONZALEZ Date: 2023-01-23 15:42 Normal [facility] PAP ACOG PANEL 2: 21 to 29on 09-19-2022 . . Normal [facility] Comment on above: Performed By: #### [id number] #### [facility] [address] [place] [address] Dr. Loyd Coppola Age Gdln ACOG Testing 21-29 Normal [facility] Comment on above: Performed By: #### [id number] #### [facility] [address] [place] [address] Dr. Loyd Coppola DIAGNOSIS: Comment Normal [facility] Comment on above: Result Comment: NEGA TIVE FOR INTRAEPITHELIAL LESION OR MALIGNANCY. Performed By: #### [id number] #### [facility] [address] [place] [address] Dr. Loyd Coppola Methodology: Comment Normal [facility] Comment on above: Result Comment: This liquid based ThinPrep(R) pap test was screened with the use of an image guided system. Performed By: #### [id number] #### [facility] [address] [place] [address] Dr. Loyd Coppola Note: Comment Normal [facility] Comment on above: Result Comment: The Pap smear is a screening test designed to aid in the detection of premalignant and malignant conditions of the uterine cervix. It is not a diagnostic procedure and should not be used as the sole means of detecting cervical cancer. Both false-positive and false-negative reports do occur. . Performed By: #### [id number] #### [facility] [address] [place] [address] Dr. Loyd Coppola Performed by: Comment Normal [facility] Comment on above: Result Comment: Celestina Velasco, Transition Program Manager (ASCP) Performed By: #### [id number] #### [facility] [address] [place] [address] Dr. Loyd Coppola Reflex Criteria: Comment Normal [facility] Comment on above: Result Comment: The HPV DNA reflex criteria were not met with this specimen result therefore, no HPV testing was performed. . Performed By: #### [id number] #### [facility] [address] [place] [address] Dr. Loyd Coppola Specimen adequacy: Comment Normal [facility] Comment on above: Result Comment: Sati sfactory for evaluation. Endocervical and/or squamous metaplastic cells (endocervical component) are present. Performed By: #### [id number] #### [facility] [address] [place] [address] Dr. Loyd Coppola Vital Signs Date Time Vital Sign Value Performing Clinician Facility 03-23-2023 03:40-0400 Body weight 122.[address] JULIANNE LAMBERT . [facility] Comment on above: Performed By: #### JESUS CHAVARRIA #### [facility] [address] [place] [address] Dr. Loyd Coppola Encounters Encounter Date Encounter Type Care Provider Facility Start: 10-08-2023 End: 10-08-2023 ambulatory KESHA HALL Not Available Start: 04-09-[address] THOMAS FORMAN . Facili ty:[facility] Start: 03-29-2023 End: 03-30-2023 ambulatory KESHA HALL . Facility:[facility] Start: 03-21-2023 End: 03-22-[address] THOMAS FORMAN . Facility:[facility] Start: 02-18-2023 End: 02-19-[address] THOMAS FORMAN . Facility:[facility] Start: 02-13-2023 End: 02-13-[address] THOMAS FORMAN . Facility:[facility] Start: 01-31-2023 End: 02-01-[address] THOMAS FORMAN . Facility:[facility] Start: 01-28-2023 End: 01-28-[address] DOCTOR BANUELOS Facility:[facility] Start: 01-23-2023 End: 01-24-[address] THOMAS FORMAN . Facility:[facility] Start: 09-11-2022 End: 09-11-[address] JULIANNE LAMBERT . Facility:[facility] Payers Date Payer Category Payer Unknown [id number] 2.16.84 [id number] 1990 Unknown [id number] 2.16.84 [id number] 1992 Unknown [id number] 2.16.84 [id number] 1992 Unknown [id number] 2.16.84 [id number] 1992 Unknown [id number] 2.16.84 [id number] 1992 Unknown [id number] 2.16.84 [id number] 1992 Unknown [id number] 2.16.84 [id number] 1992 Unknown [id number] 2.16.84 [id number] 1992 Unknown [id number] 2.16.84 [id number] 1992 Unknown [id number] 1959 Unknown [id number] Summary Purpose Family History No Family History Records FoundNo Family History Records Found Advance Directives No Advanced Directives Records FoundNo Advanced Directives Records Found Additional Source Comments INFORMATION SOURCE (unrecogn ized section and content) DATE CREATED AUTHOR 04/18/2023 [facility] DATE CREATED AUTHOR AUTHOR'S ORGANIZ ATION 10/10/2023 [facility] EPIC FOR RECORDS PERTAINING TO PATIENTS WHO ARE OR HAVE BEEN ENROLLED IN A CHEMICAL DEPENDENCY/SUBSTANCEABUSE PROGRAM, SOME INFORMATION MAY BE OMITTED. This clinical summary was aggregated from multiple sources. Caution should be exercised in using it in the provision of clinical care. This summary normalizes information from multiple sources, and as a consequence, information in this document may materially change the coding, format and clinical context of patient data. In addition, data may be omitted in some cases. CLINICAL DECISIONS SHOULD BE BASED ON THE PRIMARY CLINICAL RECORDS. [facility] [employer] provides no warranty or guarantee of the accuracy or completeness of information in this document.
[2024-03-24 11:10] LABS: Age Gdln ACOG Testing Note (.); HPV Aptima Negative (Negative); IGP, Aptima HPV, rfx 16/18,45 Note (.)
== END 2024-03-18 20:09 | disposition home or self-care (01) ==
LOC: LAB 20:08
PROVIDERS: Visit Provider Obstetrics & Gynecology
DX: Z01.419 Encounter for gynecological examination (general) (routine) without abnormal findings (principal)
CPT/HCPCS: 87624; G0145

== ENCOUNTER 2024-04-27 13:51 | Outpatient (OUT) | payer BC, SELFPAY ==
--- NOTE | 2024-04-27 13:57 | US_ITS ---
The [address] [address] Patient Name: KIRA CASTELLON MRN: [id number] date: 1990 Sex: F Assigned Patient Location: US Current Patient Location: Accession/Order Number: [id number] Exam Date: 04/27/2024 14:00 Report Date: 04/28/2024 13:16 At the request of: THOMAS FORMAN Procedure: US pelvis w/ transvaginal EXAM: Pelvic ultrasound HISTORY: . Irregular Bleeding N92.6 . COMPARISON: None. TECHNIQUE: Transabdominal and transvaginal scanning was performed FINDINGS: Thinning of the pelvis demonstrates a retroflexed uterus measuring 8.7 x 3.6 x 5.7 cm. Endometrial complex measures 8 mm. Right ovary measured 3.5 x 2.4 x 2.8 cm. Color-flow is noted. Follicles were noted. Several follicles were noted in a peripheral location. Left ovary measures 3.4 x 2 x 2.8 cm. Color-flow is noted. Follicles are noted. Several follicles are in a peripheral location. No fluid was noted in the cul-de-sac. US/US pelvis w/ transvaginal IMPRESSION: 1. Normal-appearing retroflexed uterus and endometrial complex. 2. Several follicles in both ovaries. Several follicles were noted peripheral location. Findings could be due to early cystic ovarian syndrome. Clinical correlation is suggested. Electronically authenticated by: EMMIE JHAVERI Date: 04/28/2024 13:16
--- OUTSIDE RECORDS SUMMARY | 2024-04-27 14:36 | XMS_ITS | CCD ---
Author Organization [facility] Care Team Providers Care Regional Sales Coordinator Name Role Phone PETRA ., DR WHITAKER [...] ZIEBER, DR YOMAIRA Godinez Consulting Unavailable REQUEST, NONE LISTED Consulting Unavaila ble DICKSON ., DR [...] ble DICKSON ., DR GUZMAN Admitting Unavailable DICKSON, THOMAS Attending Unavailable ISABEL, KESHA Attending Unavailable Problems Problem [...] [Mass/Vol] 107 mg/dL Critically high 74-[address] [facility] Comment on above: Performed By: #### G TT3P #### [facility] [address] [address] [address] Loyd Coppola Glucose [Mass/Vol] 203 mg/dL Normal [facility] Comment on above: Performed By: #### G TT3P #### [facility] [address] [address] [address] Loyd Coppola Glucose [Mass/Vol] 191 mg/dL Normal [facility] Comment on above: Performed By: #### G TT3P #### [facility] [address] [address] [address] Loyd Coppola Glucose [Mass/Vol] 121 mg/dL Normal [facility] Comment on above: Performed By: #### G TT3P #### [facility] [address] [address] [address] Loyd Coppola AFP MATERNAL FOR SPINA BIFID Aon 03-23-2023 AFP MoM 0.70 Normal [facility] Comment on above: Performed By: #### Suzi ZAVALETA UMICRO #### [facility] [address] [address] [address] Loyd Coppola AFP Value 18.1 ng/mL Normal [facility] Comment on above: Performed By: #### Suzi ZAVALETA, UMICRO #### [facility] [address] [address] [address] Loyd Coppola AFP, Serum for Spina Bifida Report Normal [facility] Comment on above: Performed By: #### Suzi RUR, UMICRO #### [facility] [address] [address] [address] Loyd Coppola Comment Comment Normal [facility] Comment on above: Result Comment: Eboni Shah, Ph.D., [facility] Director . References: Available Upon Request. . Multiples Of Median Cutoffs For AFP Elevations Steiner 2.5 Black 2.8 IDD 2.0 Twins 4.5 Abbreviation Definitions IDD - Insulin Dep Diabetes OSBR - Open Spina Bifida Risk . For further inquiries contact [facility] at [phone]. . This test was developed and its performance characteristics determined by [facility]. It has not been cleared or approved by the Food and Drug Administration. Performed By: #### MORGAN CHAVARRIAICRO #### [facility] [address] [place] [address] Dr. Loyd Kohli Age Collection Date 16.4 weeks Normal [facility] Comment on above: Performed By: #### E MEGHANN UMICRO #### [facility] [address] [place] [address] Dr. Loyd Coppola Gestat, Age Based on As provided Normal [facility] Comment on above: Result Comment: Reca lculations are not recommended when gestational dating by LMP and ultrasound are within 10 days. Performed By: #### JUSTIN CHAVARRIARO #### [facility] [address] [place] [address] Dr. Loyd Coppola Insulin Dep Diabetes No Normal [facility] Comment on above: Performed By: #### Suzi ZAVALETA UMICRO #### [facility] [address] [place] [address] Dr. Loyd Coppola Interpretation Comment Normal [facility] Comment on above: Result Comment: Inte [...] Customer Services to discuss available options. The [employer] recommends amniocentesis be offered to women age 35 and older. Performed By: #### JUSTIN CHAVARRIARO #### [facility] [address] [place] [address] Dr. Loyd Coppola [age] Normal [facility] Comment on above: Performed By: #### Suzi ZAVALETA UMJUAN FRANCISCORO #### [facility] [address] [place] [address] Dr. Loyd Coppola Multiple Gestation No Normal [facility] Comment on above: Performed By: #### E RUR, UMICRO #### [facility] [address] [address] [address] Loyd Coppola [place] [id number] [facility] Comment on above: Performed By: #### E RUR, UMICRO #### [facility] [address] [place] [address] Dr. Loyd Coppola PDF . [facility] Comment on above: Performed By: #### E RUR, UMICRO #### [facility] [address] [address] [address] Loyd Coppola Race [facility] Comment on above: Performed By: #### E RUR, UMICRO #### [facility] [address] [place] [address] Dr. Loyd Coppola Test Results: Negative [facility] Comment on above: Performed By: #### E RUR, UMICRO #### [facility] [address] [place] [address] Dr. Loyd Coppola GLUCOSE - 1HRon 03-21-2023 Glucose [Mass/Vol] 165 mg/dL Critically high 74-[address] [facility] Comment on above: Performed By: #### G LU1HR #### [facility] [address] [place] [address] Dr. Loyd Coppola PAP ACOG PANEL 2: 30 to 65on 02-19-2023 . . [facility] Comment on above: Result Comment: Perf ormed at: WB Performed By: #### E RUR, UMICRO #### [facility] [address] [place] [address] Dr. Loyd Coppola Age Gdln ACOG Testing 30-65 [facility] Comment on above: Performed By: #### E RUR, UMICRO #### [facility] [address] [place] [address] Dr. Loyd Coppola DIAGNOSIS: Comment [facility] Comment on above: Result Comment: NEGA TIVE FOR INTRAEPITHELIAL LESION OR MALIGNANCY. Performed at: [facility] Performed By: #### E RUR, UMICRO #### [facility] [address] [address] [address] Loyd Coppola HPV Aptima Negative Normal Negative [facility] Comment on above: Result Comment: This nucleic acid amplification test detects fourteen high-risk HPV types (16,18,31,33,35,39,45,51,52,56,58,59,66,68) without differentiation. Performed at: =G Performed By: #### E RUR, UMICRO #### [facility] [address] [address] [address] Loyd Coppola HPV Genotype Reflex Comment Normal [facility] Comment on above: Result Comment: Crit eria not met, HPV Genotype not performed. Performed at: WB Performed By: #### E RUR, UMICRO #### [facility] [address] [place] [address] Dr. Loyd Coppola Methodology: Comment Normal [facility] Comment on above: Result Comment: This liquid based ThinPrep(R) pap test was screened with the use of an image guided system. Performed at: WB Performed By: #### E RUR, UMICRO #### [facility] [address] [place] [address] Dr. Loyd Coppola Note: Comment Normal [facility] Comment on above: Result Comment: The Pap [...] Performed By: #### E RUR, UMICRO #### [facility] [address] [address] [address] Loyd Coppola Performed by: Comment Normal [facility] Comment on above: Result Comment: Lidya Kirkpatrick, Bottom Filler (ASCP) Performed at: WB Performed By: #### E RUR, UMICRO #### [facility] [address] [place] [address] Dr. Loyd Coppola Specimen adequacy: Comment Normal [facility] Comment on above: Result Comment: Sati sfactory for evaluation. No endocervical component is identified. Performed at: WB Performed By: #### JESUS CHAVARRIA #### [facility] [address] [address] [address] Loyd Coppola US PREG CERVICAL LENGTHon [...] by: YOMAIRA GONZALEZ Date: 2023-02-18 15:51 Normal [facility] CHLAMYDIA/GONOCOCCUS ANTONELLA (SW AB/URINE/PAPon 02-15-2023 Chlamydia trachomatis, ANTONELLA Negative Normal Negative [facility] Comment on above: Performed By: #### C T/NGNA #### [facility] [address] [address] [address] Loyd Coppola Neisseria gonorrhoeae, ANTONELLA Negative Normal Negative [facility] Comment on above: Performed By: #### C T/NGNA #### [facility] [address] [address] [address] Loyd Coppola VAGINITIS/VAGINOSIS DNA PROB Vineet 02-15-2023 Leigha species Negative Normal Negative [facility] Comment on above: Performed By: #### C BC #### [facility] [address] [address] [address] Loyd Coppola Gardnerella vaginalis Negative Normal Negative [facility] Comment on above: Performed By: #### C BC #### [facility] [address] [address] [address] Loyd Coppola Trichomonas vaginalis Negative Normal Negative [facility] Comment on above: Performed By: #### C BC #### [facility] [address] [place] [address] Dr. Loyd Coppola HEP B SURFACE ANTIGEN SCREEN on 02-01-2023 HBsAg Screen Negative Normal Negative [facility] Comment on above: Performed By: #### H BSANS #### [facility] [address] [place] [address] Dr. Loyd Coppola HEPATITIS C VIRUS AB W/ REFL EX QUANTon 02-01-2023 HCV AB Non-Reactive Normal Non Reactive [facility] Comment on above: Performed By: #### C BC #### [facility] [address] [place] [address] Dr. Loyd Coppola Interpretation: Comment Normal [facility] Comment on above: Result Comment: Not infected with HCV unless early or acute infection is suspected (which may be delayed in an immunocompromised individual), or other evidence exists to indicate HCV infection. Performed By: #### C BC #### [facility] [address] [place] [address] Dr. Loyd Coppola HIV 1 AND 2 WITH REFLEXon HIV Screen 4th Generation wRfx Non-Reactive Normal Non Reactive [facility] Comment on above: Result Comment: HIV Negative HIV-1/HIV-2 antibodies and HIV-1 p24 antigen were NOT detected. There is no laboratory evidence of HIV infection. Performed By: #### C BC #### [facility] [address] [place] [address] Dr. Loyd Coppola RPR QUANTon 02-01-2023 Rapid Plasma Reagin, Quant Non-Reactive Normal NonRea<1:1 [facility] Comment on above: Result Comment: Plea se Note: This test does not meet current guidelines for screening and diagnosis of syphilis. This test is intended for following treatment response in patients being treated for syphilis infection. To screen for syphilis infection, a reflex cascade that includes both RPR and a treponema-specific assay should be utilized, such as Treponema pallidum (Syphilis) Screening Dewar (757065) or Rapid Plasma Reagin (RPR) Test With Reflex to Quantitative RPR and Confirmatory Treponema pallidum Antibodies (660558). Performed By: #### E JESUS ZAVALETA #### [facility] [address] [place] [address] Dr. Loyd Coppola RUBELLA AB IGGon 02-01-2023 Rubella Antibodies, IgG 1.08 index Normal Immune >0.99 [facility] Comment on above: Result Comment: Non- immune <0.90 Equivocal 0.90 - 0.99 Immune >0.99 Performed By: #### C BC #### [facility] [address] [place] [address] Dr. Loyd Coppola BOX TEST SENT OUTon 02-01-20 23 SENT TO REF LAB 01/31/23 Normal [facility] Comment on above: Performed By: #### E JESUS ZAVALETA #### [facility] [address] [place] [address] Dr. Loyd Coppola CBC AUTO DIFFon 01-31-2023 BASO # 0.0 103/ul Normal 0.0-0.1 [facility] Comment on above: Performed By: #### C BC #### [facility] [address] [place] [address] Dr. Loyd Coppola Basophils/100 WBC (Bld) 0.2 % Normal 0.2-2.0 [facility] Comment on above: Performed By: #### C BC #### [facility] [address] [place] [address] Dr. Loyd Coppola EO # 0.1 103/ul Normal 0.0-0.7 [facility] Comment on above: Performed By: #### C BC #### [facility] [address] [place] [address] Dr. Loyd Coppola Eosinophils/100 WBC (Bld) 1.5 % Normal 0.9-7.0 [facility] Comment on above: Performed By: #### C BC #### [facility] [address] [place] [address] Dr. Loyd Coppola Erythrocyte distribution width (RBC) [Ratio] 12.3 % Normal 11.0-15.0 [facility] Comment on above: Performed By: #### C BC #### [facility] [address] [place] [address] Dr. Loyd Coppola Hematocrit (Bld) [Volume fraction] 39.3 % Normal 36.0-48.0 [facility] Comment on above: Performed By: #### C BC #### [facility] [address] [place] [address] Dr. Loyd Coppola Hemoglobin (Bld) [Mass/Vol] 14.3 g/dL Normal 12.0-16.0 [facility] Comment on above: Performed By: #### C BC #### [facility] [address] [place] [address] Dr. Loyd Coppola IG # 0.03 10e3/ul Normal 0.00-0.03 [facility] Comment on above: Performed By: #### C BC #### [facility] [address] [place] [address] Dr. Lody Coppola IG % 0.3 % Normal 0.0-0.5 [facility] Comment on above: Performed By: #### C BC #### [facility] [address] [place] [address] Dr. Loyd Coppola LYMPH # 2.3 103/ul Normal 1.2-3.8 [facility] Comment on above: Performed By: #### C BC #### [facility] [address] [place] [address] Dr. Loyd Coppola Lymphocytes/100 WBC (Bld) 24.8 % Normal 20.5-60.0 [facility] Comment on above: Performed By: #### C BC #### [facility] [address] [place] [address] Dr. Loyd Coppola MANUAL DIFF REQ NO Normal [facility] Comment on above: Performed By: #### C BC #### [facility] [address] [place] [address] Dr. Loyd Coppola MCH (RBC) [Entitic mass] 32.6 pg Normal 26.7-34.0 [facility] Comment on above: Performed By: #### C BC #### [facility] [address] [place] [address] Dr. Loyd Coppola MCHC (RBC) [Mass/Vol] 36.4 g/dL Critically high 29.9-35.2 [facility] Comment on above: Performed By: #### C BC #### [facility] [address] [address] [address] Loyd Coppola MCV (RBC) [Entitic vol] 89.7 fL Normal 81.0-99.0 [facility] Comment on above: Performed By: #### C BC #### [facility] [address] [address] [address] Loyd Coppola MONO # 0.5 103/ul Normal 0.3-0.8 [facility] Comment on above: Performed By: #### C BC #### [facility] [address] [place] [address] Dr. Loyd Coppola Monocytes/100 WBC (Bld) 5.2 % Normal 1.7-12.0 [facility] Comment on above: Performed By: #### C BC #### [facility] [address] [place] [address] Dr. Loyd Coppola NEUT # 6.4 103/ul Normal 1.4-6.5 [facility] Comment on above: Performed By: #### C BC #### [facility] [address] [place] [address] Dr. Loyd Coppola Neutrophils/100 WBC (Bld) 68.0 % Normal 43.0-75.0 [facility] Comment on above: Performed By: #### C BC #### [facility] [address] [place] [address] Dr. Loyd Coppola Platelet mean volume (Bld) [Entitic vol] 10.5 fL Normal 9.5-13.5 [facility] Comment on above: Performed By: #### C BC #### [facility] [address] [place] [address] Dr. Loyd Coppola PLT 171 103/ul Normal 150-450 [facility] Comment on above: Performed By: #### C BC #### [facility] [address] [place] [address] Dr. Loyd Coppola RBC 4.38 106/ul Normal 4.20-5.40 [facility] Comment on above: Performed By: #### C BC #### [facility] [address] [place] [address] Dr. Loyd Coppola WBC 9.4 103/ul Normal 4.0-11.0 [facility] Comment on above: Performed By: #### C BC #### [facility] [address] [place] [address] Dr. Loyd Coppola CULTURE URINEon 01-31-2023 CULTURE URINE Culture Observations : LIGHT GROWTH OF MIXED GENITAL CASSIDY. NO POTENTIAL PATHOGENS SEEN. Normal [facility] Comment on above: Performed By: #### C BC #### [facility] [address] [place] [address] Dr. Loyd Coppola CULTURE URINE Isolate 1 [...] F Trimethoprim/Sulfameth oxazole <=20 S F Normal [facility] Comment on above: Performed By: #### C BC #### [facility] [address] [place] [address] Dr. Loyd Coppola GLYCOHEMOGLOBIN A1Con 2022 ADA RECOMMENDATION SEE BELOW Normal [facility] Comment on above: Result Comment: ADA RECOMMENDED LIMIT 4.0 - 6.0 ADA THERAPEUTIC TARGET < 7.0 ACTION SUGGESTED > 7.0 Performed By: #### A 1C #### [facility] [address] [place] [address] Dr. Loyd Coppola Glucose [Mass/Vol] 100 mg/dL Normal [facility] Comment on above: Performed By: #### A 1C #### [facility] [address] [place] [address] Dr. Loyd Coppola HbA1c (Bld) [Mass fraction] 5.1 % Normal 4.5-6.2 [facility] Comment on above: Performed By: #### A 1C #### [facility] [address] [place] [address] Dr. Loyd Coppola TSHon 01-31-2023 TSH 0.495 uIU/mL Normal 0.358-3.740 [facility] Comment on above: Performed By: #### E JESUS ZAVALETA #### [facility] [address] [place] [address] Dr. Loyd Coppola TYPE AND SCREENon 01-31-2023 TYPE AND SCREEN Negative Normal [facility] Comment on above: Performed By: #### C BC #### [facility] [address] [place] [address] Dr. Loyd Coppola CBC AUTO DIFFon 01-28-2023 BASO # 0.0 103/ul Normal 0.0-0.1 [facility] Comment on above: Performed By: #### C BC #### [facility] [address] [place] [address] Dr. Loyd Coppola Basophils/100 WBC (Bld) 0.2 % Normal 0.2-2.0 [facility] Comment on above: Performed By: #### C BC #### [facility] [address] [place] [address] Dr. Loyd Coppola EO # 0.1 103/ul Normal 0.0-0.7 [facility] Comment on above: Performed By: #### C BC #### [facility] [address] [place] [address] Dr. Loyd Coppola Eosinophils/100 WBC (Bld) 0.8 % Critically low 0.9-7.0 [facility] Comment on above: Performed By: #### C BC #### [facility] [address] [place] [address] Dr. Loyd Coppola Erythrocyte distribution width (RBC) [Ratio] 12.3 % Normal 11.0-15.0 [facility] Comment on above: Performed By: #### C BC #### [facility] [address] [place] [address] Dr. Loyd Coppola Hematocrit (Bld) [Volume fraction] 45.0 % Normal 36.0-48.0 [facility] Comment on above: Performed By: #### C BC #### [facility] [address] [place] [address] Dr. Loyd Coppola Hemoglobin (Bld) [Mass/Vol] 16.3 g/dL Critically high 12.0-16.0 [facility] Comment on above: Performed By: #### C BC #### [facility] [address] [place] [address] Dr. Loyd Coppola IG # 0.03 10e3/ul Normal 0.00-0.03 [facility] Comment on above: Performed By: #### C BC #### [facility] [address] [place] [address] Dr. Loyd Coppola IG % 0.4 % Normal 0.0-0.5 [facility] Comment on above: Performed By: #### C BC #### [facility] [address] [place] [address] Dr. Loyd Coppola LYMPH # 1.4 103/ul Normal 1.2-3.8 [facility] Comment on above: Performed By: #### C BC #### [facility] [address] [place] [address] Dr. Loyd Coppola Lymphocytes/100 WBC (Bld) 16.8 % Critically low 20.5-60.0 [facility] Comment on above: Performed By: #### C BC #### [facility] [address] [place] [address] Dr. Loyd Coppola MANUAL DIFF REQ NO Normal [facility] Comment on above: Performed By: #### C BC #### [facility] [address] [place] [address] Dr. Loyd Coppola MCH (RBC) [Entitic mass] 32.1 pg Normal 26.7-34.0 [facility] Comment on above: Performed By: #### C BC #### [facility] [address] [place] [address] Dr. Loyd Coppola MCHC (RBC) [Mass/Vol] 36.2 g/dL Critically high 29.9-35.2 [facility] Comment on above: Performed By: #### C BC #### [facility] [address] [address] [address] Loyd Coppola MCV (RBC) [Entitic vol] 88.8 fL Normal 81.0-99.0 [facility] Comment on above: Performed By: #### C BC #### [facility] [address] [place] [address] Dr. Loyd Coppola MONO # 0.9 103/ul Critically high 0.3-0.8 [facility] Comment on above: Performed By: #### C BC #### [facility] [address] [place] [address] Dr. Loyd Coppola Monocytes/100 WBC (Bld) 10.5 % Normal 1.7-12.0 [facility] Comment on above: Performed By: #### C BC #### [facility] [address] [place] [address] Dr. Loyd Coppola NEUT # 6.0 103/ul Normal 1.4-6.5 [facility] Comment on above: Performed By: #### C BC #### [facility] [address] [place] [address] Dr. Loyd Coppola Neutrophils/100 WBC (Bld) 71.3 % Normal 43.0-75.0 [facility] Comment on above: Performed By: #### C BC #### [facility] [address] [place] [address] Dr. Loyd Coppola Platelet mean volume (Bld) [Entitic vol] 10.7 fL Normal 9.5-13.5 [facility] Comment on above: Performed By: #### C BC #### [facility] [address] [place] [address] Dr. Loyd Coppola PLT 174 103/ul Normal 150-450 [facility] Comment on above: Performed By: #### C BC #### [facility] [address] [place] [address] Dr. Loyd Coppola RBC 5.07 106/ul Normal 4.20-5.40 [facility] Comment on above: Performed By: #### C BC #### [facility] [address] [place] [address] Dr. Loyd Coppola WBC 8.4 103/ul Normal 4.0-11.0 [facility] Comment on above: Performed By: #### C BC #### [facility] [address] [place] [address] Dr. Loyd Coppola ER URINE PROFILEon 3 Bilirubin Ql (U) SMALL Abnormal NEGATIVE [facility] Comment on above: Performed By: #### E RUR, UMICRO #### [facility] [address] [place] [address] Dr. Loyd Coppola Clarity (U) CLEAR Normal CLEAR [facility] Comment on above: Performed By: #### E RUR, UMICRO #### [facility] [address] [place] [address] Dr. Loyd Coppola Color (U) YELLOW Normal YELLOW [facility] Comment on above: Performed By: #### E RUR, UMICRO #### [facility] [address] [place] [address] Dr. Loyd DIAS A micrscopic examination will be performed if indicated. Normal [facility] Comment on above: Performed By: #### E RUR, UMICRO #### [facility] [address] [place] [address] Dr. Loyd Coppola Glucose Ql (U) Negative Normal NEGATIVE [facility] Comment on above: Performed By: #### E RUR, UMICRO #### [facility] [address] [place] [address] Dr. Loyd Coppola Hemoglobin Ql (U) TRACE-INTACT Abnormal NEGATIVE [facility] Comment on above: Performed By: #### E RUR, UMICRO #### [facility] [address] [place] [address] Dr. Loyd Coppola Ketones Ql (U) 80 mg/dl Abnormal NEGATIVE [facility] Comment on above: Performed By: #### E RUR, UMICRO #### [facility] [address] [place] [address] Dr. Loyd Coppola LEUKOCYTES Negative Normal NEGATIVE [facility] Comment on above: Performed By: #### JUSTIN CHAVARRIARO #### [facility] [address] [address] [address] Loyd Coppola Nitrite Ql (U) Negative Normal NEGATIVE [facility] Comment on above: Performed By: #### JUSTIN CHAVARRIARO #### [facility] [address] [place] [address] Dr. Loyd Coppola pH (U) 6.5 [pH] Normal 5-9 [facility] Comment on above: Performed By: #### JESUS CHAVARRIA #### [facility] [address] [place] [address] Dr. Loyd Coppola Protein (U) [Mass/Vol] 100 mg/dL Abnormal NEGATIVE/ TRACE [facility] Comment on above: Performed By: #### JUSTIN CHAVARRIARO #### [facility] [address] [place] [address] Dr. Loyd Coppola SPEC GRAVITY 1.030 Abnormal 1.005-<=1.025 [facility] Comment on above: Performed By: #### JUSTIN CHAVARRIARO #### [facility] [address] [place] [address] Dr. Loyd Coppola UR MICRO IND INDICATED Normal [facility] Comment on above: Performed By: #### JESUS CHAVARRIA #### [facility] [address] [place] [address] Dr. Loyd Coppola Urobilinogen Qn (U) 0.2 {Taylor'U}/dL Normal 0.2 - 1. 0 [facility] Comment on above: Performed By: #### JUSTIN CHAVARRIARO #### [facility] [address] [place] [address] Dr. Loyd Coppola PROF 14(COMP METB)on 023 Albumin [Mass/Vol] 3.5 g/dL Normal 3.4-5.0 [facility] Comment on above: Performed By: #### C BC #### [facility] [address] [address] [address] Loyd Coppola Albumin/Globulin [Mass ratio] 0.9 {ratio} Normal [facility] Comment on above: Performed By: #### C BC #### [facility] [address] [place] [address] Dr. Loyd Coppola ALP [Catalytic activity/Vol] 61 U/L Normal 46-116 [facility] Comment on above: Performed By: #### C BC #### [facility] [address] [place] [address] Dr. Loyd Coppola ALT [Catalytic activity/Vol] 29 U/L Normal 14-59 [facility] Comment on above: Performed By: #### C BC #### [facility] [address] [place] [address] Dr. Loyd Coppola Anion gap [Moles/Vol] 12.0 mmol/L Normal [facility] Comment on above: Performed By: #### C BC #### [facility] [address] [place] [address] Dr. Loyd Coppola AST [Catalytic activity/Vol] 24 U/L Normal 15-37 [facility] Comment on above: Performed By: #### C BC #### [facility] [address] [place] [address] Dr. Loyd Coppola Bilirubin [Mass/Vol] 0.4 mg/dL Normal 0.2-1.0 [facility] Comment on above: Performed By: #### C BC #### [facility] [address] [place] [address] Dr. Loyd Coppola Calcium [Mass/Vol] 8.6 mg/dL Normal 8.5-10.1 [facility] Comment on above: Performed By: #### C BC #### [facility] [address] [place] [address] Dr. Loyd Coppola Chloride [Moles/Vol] 99 mmol/L Normal 98-107 [facility] Comment on above: Performed By: #### C BC #### [facility] [address] [address] [address] Loyd Coppola CO2 [Moles/Vol] 24.9 mmol/L Normal 21.0-32.0 [facility] Comment on above: Performed By: #### C BC #### [facility] [address] [place] [address] Dr. Loyd Coppola Creatinine [Mass/Vol] 0.55 mg/dL Normal 0.55-1.02 [facility] Comment on above: Performed By: #### C BC #### [facility] [address] [place] [address] Dr. Loyd Coppola EGFR-AF NICARAGUAN >60 Normal >=60 [facility] Comment on above: Performed By: #### C BC #### [facility] [address] [place] [address] Dr. Loyd Coppola EGFR-NON AF NICARAGUAN >60 Normal >=60 [facility] Comment on above: Performed By: #### C BC #### [facility] [address] [place] [address] Dr. Loyd Coppola Globulin (S) [Mass/Vol] 3.8 g/dL Normal [facility] Comment on above: Performed By: #### C BC #### [facility] [address] [place] [address] Dr. Loyd Coppola Glucose [Mass/Vol] 106 mg/dL Normal 74-106 [facility] Comment on above: Performed By: #### C BC #### [facility] [address] [place] [address] Dr. Loyd Coppola Potassium [Moles/Vol] 2.9 mmol/L Critically low 3.5-5.1 [facility] Comment on above: Performed By: #### C BC #### [facility] [address] [place] [address] Dr. Loyd Coppola Protein [Mass/Vol] 7.3 g/dL Normal 6.4-8.2 [facility] Comment on above: Performed By: #### C BC #### [facility] [address] [place] [address] Dr. Loyd Coppola Sodium [Moles/Vol] 135 mmol/L Critically low 136-145 [facility] Comment on above: Performed By: #### C BC #### [facility] [address] [place] [address] Dr. Loyd Coppola Urea nitrogen [Mass/Vol] 12.0 mg/dL Normal 7.0-18.0 [facility] Comment on above: Performed By: #### C BC #### [facility] [address] [place] [address] Dr. Loyd Coppola Urea nitrogen/Creatinine [Mass ratio] 21.8 mg/mg Normal [facility] Comment on above: Performed By: #### C BC #### [facility] [address] [place] [address] Dr. Loyd Coppola URINE MICROSCOPIC ONLYon BACTERIA MODERATE Abnormal NONE SEEN [facility] Comment on above: Performed By: #### E RUR, UMICRO #### [facility] [address] [place] [address] Dr. Loyd Coppola Bacteria identified Cx Nom (U) INDICATED Normal [facility] Comment on above: Performed By: #### E RUR, UMICRO #### [facility] [address] [place] [address] Dr. Loyd Coppola CAST NONE SEEN Normal NONE SEEN [facility] Comment on above: Performed By: #### E RUR, UMICRO #### [facility] [address] [place] [address] Dr. Loyd Coppola Crystals LM Nom (Urine sed) NONE SEEN Normal NONE SEEN [facility] Comment on above: Performed By: #### E RUR, UMICRO #### [facility] [address] [place] [address] Dr. Loyd Coppola Epithelial cells LM Ql (Urine sed) MANY Abnormal NONE SEEN /RARE [facility] Comment on above: Performed By: #### E RUR, UMICRO #### [facility] [address] [place] [address] Dr. Loyd Coppola MUCOUS SMALL Abnormal NONE SEEN [facility] Comment on above: Performed By: #### E RUR, UMICRO #### [facility] [address] [address] [address] Loyd Coppola RBC 0-2 Normal 0-2 [facility] Comment on above: Performed By: #### E JESUS ZAVALETA #### [facility] [address] [address] [address] Loyd Coppola WBC 2-5 Abnormal NONE SEEN [facility] Comment on above: Performed By: #### JESUS CHAVARRIA #### [facility] [address] [address] [address] Loyd Coppola US PREG TVon 01-23-2023 [...] by: YOMAIRA GONZALEZ Date: 2023-01-23 15:42 Normal [facility] PAP ACOG PANEL 2: 21 to 29on 09-19-2022 . . Normal [facility] Comment on above: Performed By: #### [id number] #### [facility] [address] [place] [address] Dr. Loyd Coppola Age Gdln ACOG Testing 21-29 Normal [facility] Comment on above: Performed By: #### [id number] #### [facility] [address] [place] [address] Dr. Loyd Coppola DIAGNOSIS: Comment Normal [facility] Comment on above: Result Comment: NEGA TIVE FOR INTRAEPITHELIAL LESION OR MALIGNANCY. Performed By: #### [id number] #### [facility] [address] [place] [address] Dr. Loyd Coppola Methodology: Comment Normal [facility] Comment on above: Result Comment: This liquid based ThinPrep(R) pap test was screened with the use of an image guided system. Performed By: #### [id number] #### [facility] [address] [place] [address] Dr. Loyd Coppola Note: Comment Normal [facility] Comment on above: Result Comment: The Pap smear is a screening test designed to aid in the detection of premalignant and malignant conditions of the uterine cervix. It is not a diagnostic procedure and should not be used as the sole means of detecting cervical cancer. Both false-positive and false-negative reports do occur. . Performed By: #### [id number] #### [facility] [address] [place] [address] Dr. Loyd Coppola Performed by: Comment Normal [facility] Comment on above: Result Comment: Celestina Velasco, Bottom Filler (ASCP) Performed By: #### [id number] #### [facility] [address] [place] [address] Dr. Loyd Coppola Reflex Criteria: Comment Normal [facility] Comment on above: Result Comment: The HPV DNA reflex criteria were not met with this specimen result therefore, no HPV testing was performed. . Performed By: #### [id number] #### [facility] [address] [place] [address] Dr. Loyd Coppola Specimen adequacy: Comment Normal [facility] Comment on above: Result Comment: Sati sfactory for evaluation. Endocervical and/or squamous metaplastic cells (endocervical component) are present. Performed By: #### [id number] #### [facility] [address] [place] [address] Dr. Loyd Coppola Vital Signs Date Time Vital Sign Value Performing Clinician Facility 03-23-2023 03:40-0400 Body weight 122.[address] JULIANNE LAMBERT . [facility] Comment on above: Performed By: #### JESUS CHAVARRIA #### [facility] [address] [place] [address] Dr. Loyd Coppola Encounters Encounter Date Encounter Type Care Provider Facility Start: 03-18-2024 End: 03-18-2024 ambulatory THOMAS FORMAN Not Available Start: 10-08-2023 End: 10-08-2023 ambulatory KESHA HALL [...] Facility:[facility] Payers Date Payer Category Payer Unknown [id number] .16.84 [id number] 1990 Unknown [id number] 2.16.84 [id number] 1990 Unknown [id number] .16.84 [id number] 1992 Unknown [id number] 2.16.84 [id number] 1992 Unknown [id number] 2.16.84 [id number] 1992 Unknown [id number] .16.84 [id number] 1992 Unknown [id number] 2.16.84 [id number] 1992 Unknown [id number] 2.16.84 [id number] 1992 Unknown [id number] 2.16.84 [id number] 1992 Unknown [id number] 2.16.84 [id number] 1992 Unknown [id number] 2.16.840 .[id number] 1959 Unknown [id number] Summary Purpose Family History No Family History Records FoundNo Family History Records Found Advance Directives No Advanced Directives Records FoundNo Advanced Directives Records Found Additional Source Comments INFORMATION SOURCE (unrecogn ized section and content) DATE CREATED AUTHOR 04/18/2023 [facility] DATE CREATED AUTHOR JOSEPHINE PARKER 03/20/2024 [facility] EPIC FOR RECORDS PERTAINING TO PATIENTS [...] BE BASED ON THE PRIMARY CLINICAL RECORDS. [employer] [facility]. provides no warranty or guarantee of the accuracy or completeness of information in this document.
== END 2024-04-27 13:52 | disposition home or self-care (01) ==
LOC: US 13:52
PROVIDERS: Visit Provider Obstetrics & Gynecology
DX: N92.6 Irregular menstruation, unspecified (principal)
CPT/HCPCS: 76830; 76856

== ENCOUNTER 2024-11-26 08:33 | Outpatient (OUT) | payer BC, SELFPAY ==
--- NOTE | 2024-11-26 08:35 | US_ITS ---
The [address] [address] Patient Name: KIRA CASTELLON MRN: [id number] date: 1990 Sex: F Assigned Patient Location: US Current Patient Location: Accession/Order Number: [id number] Exam Date: 11/26/2024 08:36 Report Date: 11/26/2024 09:35 At the request of: THOMAS FORMAN Procedure: US OB transvaginal EXAMINATION: US OB transvaginal HISTORY: Missed Menses COMPARISON: No relevant comparison available. FINDINGS: GESTATIONAL SAC: Present and normal appearing. YOLK SAC: Present and normal appearing. POLE: Present and normal appearing. CARDIAC: Present. UTERUS: Normal size and appearance. OVARIES: Right: Normal. Left: Contains a 1.2 cm rounded isodense area of hypervascularity. Trace amount of free fluid adjacent the ovary. CERVIX: 4.0 cm in length and closed. CUL-DE-SAC: Normal. OTHER: None. AGE BY LMP: 10 weeks 0 days LELA BY LMP: 06/24/2025 AGE BY US CRL: 9 weeks 4 days LELA BY US CRL: 06/27/2025 US/US OB transvaginal IMPRESSION: 1. Single live intrauterine . 2. Corpus lutein cyst versus mass within left ovary. This most likely represents a corpus lutein cyst. Ultrasound follow-up is recommended. Electronically authenticated by: YOMAIRA GONZALEZ Date: 11/26/2024 09:35
--- OUTSIDE RECORDS SUMMARY | 2024-11-26 08:53 | XMS_ITS | CCD ---
Author Organization [facility] Care Team Providers Care It Service Technician Name Role Phone PETRA ., DR WHITAKER [...] DR GUZMAN Attending Unavailable DICKSON ., DR GUMZAN Consulting Unavailable REQUEST, NONE LISTED Primary Care [...] THOMAS Attending Unavailable ISABEL, KESHA Attending Unavailable DICKSON, THOMAS Attending Unavailable Problems Problem Classification Problem Date [...] 107 mg/dL Critically high 74-106 T he [facility] Comment on above: Performed By: #### G TT3P #### [facility] [address] [address] [address] Loyd Coppola Glucose [Mass/Vol] 203 mg/dL Normal [facility] Comment on above: Performed By: #### G TT3P #### [facility] [address] [address] [address] Loyd Coppola Glucose [Mass/Vol] 191 mg/dL Normal [facility] Comment on above: Performed By: #### G TT3P #### [facility] [address] [address] [address] Loyd Coppola Glucose [Mass/Vol] 121 mg/dL Normal [facility] Comment on above: Performed By: #### G TT3P #### [facility] [address] [place] [address] Dr. Loyd Coppola AFP MATERNAL FOR SPINA BIFID Aon 03-23-2023 AFP MoM 0.70 Normal [facility] Comment on above: Performed By: #### Suzi ZAVALETA UMICRO #### [facility] [address] [place] [address] Dr. Loyd Coppola AFP Value 18.1 ng/mL Normal [facility] Comment on above: Performed By: #### Suzi ZAVALETA UMICRO #### [facility] [address] [place] [address] Dr. Loyd Coppola AFP, Serum for Spina Bifida Report Normal [facility] Comment on above: Performed By: #### Suzi ZAVALETA UMICRO #### [facility] [address] [address] [address] Loyd Coppola Comment Comment Normal [facility] Comment on above: Result Comment: Eboni Shah, Ph.D., [facility] Director . References: Available Upon Request. . Multiples Of Median Cutoffs For AFP Elevations Steiner 2.5 Black 2.8 IDD 2.0 Twins 4.5 Abbreviation Definitions IDD - Insulin Dep Diabetes OSBR - Open Spina Bifida Risk . For further inquiries contact [facility] at [phone]. . This test was developed and its performance characteristics determined by [employer]. It has not been cleared or approved by the Food and Drug Administration. Performed By: #### Suzi ZAVALETA UMICRO #### [facility] [address] [place] [address] Dr. Loyd Coppola Gest Age Collection Date 16.4 weeks Normal [facility] Comment on above: Performed By: #### E MEGHANN, UMICRO #### [facility] [address] [place] [address] Dr. Loyd Coppola Gestat, Age Based on As provided [facility] Comment on above: Result Comment: Reca lculations are not recommended when gestational dating by LMP and ultrasound are within 10 days. Performed By: #### Suzi ZAVALETA UMICRO #### [facility] [address] [place] [address] Dr. Loyd Coppola Insulin Dep Diabetes No Normal [facility] Comment on above: Performed By: #### E MEGHANN, UMICRO #### [facility] [address] [place] [address] Dr. Loyd Coppola Interpretation Comment Normal [facility] Comment on above: Result Comment: Inte [...] Customer Services to discuss available options. The [employer] recommends amniocentesis be offered to women age 35 and older. Performed By: #### Suzi ZAVALETA UMICRO #### [facility] [address] [place] [address] Dr. Loyd Coppola [age] Normal [facility] Comment on above: Performed By: #### E MEGHANN UMICRO #### [facility] [address] [address] [address] Loyd Coppola Multiple Gestation No [facility] Comment on above: Performed By: #### E RUR, UMICRO #### [facility] [address] [address] [address] Loyd Coppola OSBR Risk 1 [place] [address] [facility] Comment on above: Performed By: #### E RUR, UMICRO #### [facility] [address] [address] [address] Loyd Coppola PDF . [facility] Comment on above: Performed By: #### E RUR, UMICRO #### [facility] [address] [address] [address] Loyd Coppola Race [facility] Comment on above: Performed By: #### E RUR, UMICRO #### [facility] [address] [place] [address] Dr. Loyd Coppola Test Results: Negative [facility] Comment on above: Performed By: #### E RUR, UMICRO #### [facility] [address] [place] [address] Dr. Loyd Coppola GLUCOSE - 1HRon 03-21-2023 Glucose [Mass/Vol] 165 mg/dL Critically high 74-106 T [facility] Comment on above: Performed By: #### G LU1HR #### [facility] [address] [place] [address] Dr. Loyd Coppola PAP ACOG PANEL 2: 30 to 65on 02-19-2023 . . [facility] Comment on above: Result Comment: Perf ormed at: WB Performed By: #### E RUR, UMICRO #### [facility] [address] [address] [address] Loyd Coppola Age Gdln ACOG Testing 30-65 [facility] Comment on above: Performed By: #### E RUR, UMICRO #### [facility] [address] [place] [address] Dr. Loyd Coppola DIAGNOSIS: Comment [facility] Comment on above: Result Comment: NEGA TIVE FOR INTRAEPITHELIAL LESION OR MALIGNANCY. Performed at: [facility] Performed By: #### E RUR, UMICRO #### [facility] [address] [place] [address] Dr. Loyd Coppola HPV Aptima Negative Normal Negative [facility] Comment on above: Result Comment: This nucleic acid amplification test detects fourteen high-risk HPV types (16,18,31,33,35,39,45,51,52,56,58,59,66,68) without differentiation. Performed at: =G Performed By: #### E RUR, UMICRO #### [facility] [address] [place] [address] Dr. Loyd Coppola HPV Genotype Reflex Comment Normal [facility] Comment on above: Result Comment: Crit eria not met, HPV Genotype not performed. Performed at: WB Performed By: #### E RUR, UMICRO #### [facility] [address] [place] [address] Dr. Loyd Coppola Methodology: Comment Normal [facility] Comment on above: Result Comment: This liquid based ThinPrep(R) pap test was screened with the use of an image guided system. Performed at: [facility] Performed By: #### E RUR, UMICRO #### [facility] [address] [place] [address] Dr. Loyd Coppola Note: Comment Normal [facility] Comment on above: Result Comment: The Pap [...] Performed By: #### E RUR, UMICRO #### [facility] [address] [place] [address] Dr. Loyd Coppola Performed by: Comment Normal [facility] Comment on above: Result Comment: Lidya Kirkpatrick, Calibration Laboratory Technician (ASCP) Performed at: WB Performed By: #### E RUR, UMICRO #### [facility] [address] [place] [address] Dr. Loyd Coppola Specimen adequacy: Comment Normal [facility] Comment on above: Result Comment: Sati sfactory for evaluation. No endocervical component is identified. Performed at: [facility] Performed By: #### E JESUS ZAVALETA #### [facility] [address] [place] [address] Dr. Loyd Coppola US PREG CERVICAL LENGTHon [...] YOMAIRA GONZALEZ Date: 2023-02-18 15:51 Normal [facility] CHLAMYDIA/GONOCOCCUS ANTONELLA (SW AB/URINE/PAPon 02-15-2023 Chlamydia trachomatis, ANTONELLA Negative Normal Negative [facility] Comment on above: Performed By: #### C T/NGNA #### [facility] [address] [place] [address] Dr. Loyd Coppola Neisseria gonorrhoeae, ANTONELLA Negative Normal Negative [facility] Comment on above: Performed By: #### C T/NGNA #### [facility] [address] [address] [address] Loyd Coppola VAGINITIS/VAGINOSIS DNA PROB Vineet 02-15-2023 Leigha species Negative Normal Negative [facility] Comment on above: Performed By: #### C BC #### [facility] [address] [address] [address] Loyd Coppola Gardnerella vaginalis Negative Normal Negative [facility] Comment on above: Performed By: #### C BC #### [facility] [address] [place] [address] Dr. Loyd Coppola Trichomonas vaginalis Negative Normal Negative [facility] Comment on above: Performed By: #### C BC #### [facility] [address] [place] [address] Dr. Loyd Coppola HEP B SURFACE ANTIGEN SCREEN on 02-01-2023 HBsAg Screen Negative Normal Negative [facility] Comment on above: Performed By: #### H BSANS #### [facility] [address] [place] [address] Dr. Loyd Coppola HEPATITIS C VIRUS AB W/ REFL EX QUANTon 02-01-2023 HCV AB Non-Reactive Normal Non Reactive [facility] Comment on above: Performed By: #### C BC #### [facility] [address] [place] [address] Dr. Loyd Coppola Interpretation: Comment Normal [facility] Comment on above: Result Comment: Not infected with HCV unless early or acute infection is suspected (which may be delayed in an immunocompromised individual), or other evidence exists to indicate HCV infection. Performed By: #### C BC #### [facility] [address] [place] [address] Dr. Loyd Coppola HIV 1 AND 2 WITH REFLEXon HIV Screen 4th Generation wRfx Non-Reactive Normal Non Reactive [facility] Comment on above: Result Comment: HIV Negative HIV-1/HIV-2 antibodies and HIV-1 p24 antigen were NOT detected. There is no laboratory evidence of HIV infection. Performed By: #### C BC #### [facility] [address] [place] [address] Dr. Loyd Coppola RPR QUANTon 02-01-2023 Rapid Plasma Reagin, Quant Non-Reactive Normal NonRea<1:1 [facility] Comment on above: Result Comment: Plea se Note: This test does not meet current guidelines for screening and diagnosis of syphilis. This test is intended for following treatment response in patients being treated for syphilis infection. To screen for syphilis infection, a reflex cascade that includes both RPR and a treponema-specific assay should be utilized, such as Treponema pallidum (Syphilis) Screening [place] (448074) or Rapid Plasma Reagin (RPR) Test With Reflex to Quantitative RPR and Confirmatory Treponema pallidum Antibodies (394846). Performed By: #### JESUS CHAVARRIA #### [facility] [address] [place] [address] Dr. Loyd Coppola RUBELLA AB IGGon 02-01-2023 Rubella Antibodies, IgG 1.08 index Normal Immune >0.99 [facility] Comment on above: Result Comment: Non- immune <0.90 Equivocal 0.90 - 0.99 Immune >0.99 Performed By: #### C BC #### [facility] [address] [place] [address] Dr. Loyd Coppola BOX TEST SENT OUTon 02-01-20 23 SENT TO REF LAB 01/31/[address] [facility] Comment on above: Performed By: #### E MEGHANN [facility] #### [facility] [address] [place] [address] Dr. Loyd Coppola CBC AUTO DIFFon 01-31-2023 BASO # 0.0 103/ul Normal 0.0-0.1 [facility] Comment on above: Performed By: #### C BC #### [facility] [address] [place] [address] Dr. Loyd Coppola Basophils/100 WBC (Bld) 0.2 % Normal 0.2-2.0 [facility] Comment on above: Performed By: #### C BC #### [facility] [address] [place] [address] Dr. Loyd Coppola EO # 0.1 103/ul Normal 0.0-0.7 [facility] Comment on above: Performed By: #### C BC #### [facility] [address] [place] [address] Dr. Loyd Coppola Eosinophils/100 WBC (Bld) 1.5 % Normal 0.9-7.0 [facility] Comment on above: Performed By: #### C BC #### [facility] [address] [place] [address] Dr. Loyd Coppola Erythrocyte distribution width (RBC) [Ratio] 12.3 % Normal 11.0-15.0 [facility] Comment on above: Performed By: #### C BC #### [facility] [address] [place] [address] Dr. Loyd Coppola Hematocrit (Bld) [Volume fraction] 39.3 % Normal 36.0-48.0 [facility] Comment on above: Performed By: #### C BC #### [facility] [address] [place] [address] Dr. Loyd Coppola Hemoglobin (Bld) [Mass/Vol] 14.3 g/dL Normal 12.0-16.0 [facility] Comment on above: Performed By: #### C BC #### [facility] [address] [place] [address] Dr. Loyd Coppola IG # 0.03 10e3/ul Normal 0.00-0.03 [facility] Comment on above: Performed By: #### C BC #### [facility] [address] [place] [address] Dr. Loyd Coppola IG % 0.3 % Normal 0.0-0.5 [facility] Comment on above: Performed By: #### C BC #### [facility] [address] [place] [address] Dr. Loyd Coppola LYMPH # 2.3 103/ul Normal 1.2-3.8 [facility] Comment on above: Performed By: #### C BC #### [facility] [address] [place] [address] Dr. Loyd Coppola Lymphocytes/100 WBC (Bld) 24.8 % Normal 20.5-60.0 [facility] Comment on above: Performed By: #### C BC #### [facility] [address] [place] [address] Dr. Loyd Coppola MANUAL DIFF REQ NO Normal [facility] Comment on above: Performed By: #### C BC #### [facility] [address] [place] [address] Dr. Loyd Coppola MCH (RBC) [Entitic mass] 32.6 pg Normal 26.7-34.0 [facility] Comment on above: Performed By: #### C BC #### [facility] [address] [place] [address] Dr. Loyd Coppola MCHC (RBC) [Mass/Vol] 36.4 g/dL Critically high 29.9-35.2 [facility] Comment on above: Performed By: #### C BC #### [facility] [address] [place] [address] Dr. Loyd Coppola MCV (RBC) [Entitic vol] 89.7 fL Normal 81.0-99.0 [facility] Comment on above: Performed By: #### C BC #### [facility] [address] [place] [address] Dr. Loyd Coppola MONO # 0.5 103/ul Normal 0.3-0.8 [facility] Comment on above: Performed By: #### C BC #### [facility] [address] [place] [address] Dr. Loyd Coppola Monocytes/100 WBC (Bld) 5.2 % Normal 1.7-12.0 [facility] Comment on above: Performed By: #### C BC #### [facility] [address] [place] [address] Dr. Loyd Coppola NEUT # 6.4 103/ul Normal 1.4-6.5 [facility] Comment on above: Performed By: #### C BC #### [facility] [address] [place] [address] Dr. Loyd Coppola Neutrophils/100 WBC (Bld) 68.0 % Normal 43.0-75.0 [facility] Comment on above: Performed By: #### C BC #### [facility] [address] [place] [address] Dr. Loyd Coppola Platelet mean volume (Bld) [Entitic vol] 10.5 fL Normal 9.5-13.5 [facility] Comment on above: Performed By: #### C BC #### [facility] [address] [place] [address] Dr. Loyd Coppola PLT 171 103/ul Normal 150-450 [facility] Comment on above: Performed By: #### C BC #### [facility] [address] [place] [address] Dr. Loyd Coppola RBC 4.38 106/ul Normal 4.20-5.40 [facility] Comment on above: Performed By: #### C BC #### [facility] [address] [place] [address] Dr. Loyd Coppola WBC 9.4 103/ul Normal 4.0-11.0 [facility] Comment on above: Performed By: #### C BC #### [facility] [address] [place] [address] Dr. Loyd Coppola CULTURE URINEon 01-31-2023 CULTURE URINE Culture Observations : LIGHT GROWTH OF MIXED GENITAL CASSIDY. NO POTENTIAL PATHOGENS SEEN. Normal [facility] Comment on above: Performed By: #### C BC #### [facility] [address] [place] [address] Dr. Loyd Coppola CULTURE URINE Isolate 1 [...] F Trimethoprim/Sulfameth oxazole <=20 S F Normal [facility] Comment on above: Performed By: #### C BC #### [facility] [address] [place] [address] Dr. Loyd Coppola GLYCOHEMOGLOBIN A1Con 2022 ADA RECOMMENDATION SEE BELOW Normal [facility] Comment on above: Result Comment: ADA RECOMMENDED LIMIT 4.0 - 6.0 ADA THERAPEUTIC TARGET < 7.0 ACTION SUGGESTED > 7.0 Performed By: #### A 1C #### [facility] [address] [place] [address] Dr. Loyd Coppola Glucose [Mass/Vol] 100 mg/dL Normal [facility] Comment on above: Performed By: #### A 1C #### [facility] [address] [place] [address] Dr. Loyd Coppola HbA1c (Bld) [Mass fraction] 5.1 % Normal 4.5-6.2 [facility] Comment on above: Performed By: #### A 1C #### [facility] [address] [place] [address] Dr. Loyd Coppola TSHon 01-31-2023 TSH 0.495 uIU/mL Normal 0.358-3.740 [facility] Comment on above: Performed By: #### E JESUS ZAVALETA #### [facility] [address] [place] [address] Dr. Loyd Coppola TYPE AND SCREENon 01-31-2023 TYPE AND SCREEN Negative Normal [facility] Comment on above: Performed By: #### C BC #### [facility] [address] [place] [address] Dr. Loyd Coppola CBC AUTO DIFFon 01-28-2023 BASO # 0.0 103/ul Normal 0.0-0.1 [facility] Comment on above: Performed By: #### C BC #### [facility] [address] [place] [address] Dr. Loyd Coppola Basophils/100 WBC (Bld) 0.2 % Normal 0.2-2.0 [facility] Comment on above: Performed By: #### C BC #### [facility] [address] [place] [address] Dr. Loyd Coppola EO # 0.1 103/ul Normal 0.0-0.7 [facility] Comment on above: Performed By: #### C BC #### [facility] [address] [place] [address] Dr. Loyd Coppola Eosinophils/100 WBC (Bld) 0.8 % Critically low 0.9-7.0 [facility] Comment on above: Performed By: #### C BC #### [facility] [address] [place] [address] Dr. Loyd Coppola Erythrocyte distribution width (RBC) [Ratio] 12.3 % Normal 11.0-15.0 [facility] Comment on above: Performed By: #### C BC #### [facility] [address] [place] [address] Dr. Loyd Coppola Hematocrit (Bld) [Volume fraction] 45.0 % Normal 36.0-48.0 [facility] Comment on above: Performed By: #### C BC #### [facility] [address] [place] [address] Dr. Loyd Coppola Hemoglobin (Bld) [Mass/Vol] 16.3 g/dL Critically high 12.0-16.0 [facility] Comment on above: Performed By: #### C BC #### [facility] [address] [place] [address] Dr. Loyd Coppola IG # 0.03 10e3/ul Normal 0.00-0.03 [facility] Comment on above: Performed By: #### C BC #### [facility] [address] [place] [address] Dr. Loyd Coppola IG % 0.4 % Normal 0.0-0.5 [facility] Comment on above: Performed By: #### C BC #### [facility] [address] [place] [address] Dr. Loyd Coppola LYMPH # 1.4 103/ul Normal 1.2-3.8 [facility] Comment on above: Performed By: #### C BC #### [facility] [address] [place] [address] Dr. Loyd Coppola Lymphocytes/100 WBC (Bld) 16.8 % Critically low 20.5-60.0 [facility] Comment on above: Performed By: #### C BC #### [facility] [address] [place] [address] Dr. Loyd Coppola MANUAL DIFF REQ NO Normal [facility] Comment on above: Performed By: #### C BC #### [facility] [address] [place] [address] Dr. Loyd Coppola MCH (RBC) [Entitic mass] 32.1 pg Normal 26.7-34.0 [facility] Comment on above: Performed By: #### C BC #### [facility] [address] [address] [address] Loyd Coppola MCHC (RBC) [Mass/Vol] 36.2 g/dL Critically high 29.9-35.2 [facility] Comment on above: Performed By: #### C BC #### [facility] [address] [place] [address] Dr. Loyd Coppola MCV (RBC) [Entitic vol] 88.8 fL Normal 81.0-99.0 [facility] Comment on above: Performed By: #### C BC #### [facility] [address] [place] [address] Dr. Loyd Coppola MONO # 0.9 103/ul Critically high 0.3-0.8 [facility] Comment on above: Performed By: #### C BC #### [facility] [address] [place] [address] Dr. Loyd Coppola Monocytes/100 WBC (Bld) 10.5 % Normal 1.7-12.0 [facility] Comment on above: Performed By: #### C BC #### [facility] [address] [place] [address] Dr. Loyd Coppola NEUT # 6.0 103/ul Normal 1.4-6.5 [facility] Comment on above: Performed By: #### C BC #### [facility] [address] [place] [address] Dr. Loyd Coppola Neutrophils/100 WBC (Bld) 71.3 % Normal 43.0-75.0 [facility] Comment on above: Performed By: #### C BC #### [facility] [address] [place] [address] Dr. Loyd Coppola Platelet mean volume (Bld) [Entitic vol] 10.7 fL Normal 9.5-13.5 [facility] Comment on above: Performed By: #### C BC #### [facility] [address] [place] [address] Dr. Loyd Coppola PLT 174 103/ul Normal 150-450 [facility] Comment on above: Performed By: #### C BC #### [facility] [address] [place] [address] Dr. Loyd Coppola RBC 5.07 106/ul Normal 4.20-5.40 [facility] Comment on above: Performed By: #### C BC #### [facility] [address] [place] [address] Dr. Loyd Coppola WBC 8.4 103/ul Normal 4.0-11.0 [facility] Comment on above: Performed By: #### C BC #### [facility] [address] [place] [address] Dr. Loyd Coppola ER URINE PROFILEon 3 Bilirubin Ql (U) SMALL Abnormal NEGATIVE [facility] Comment on above: Performed By: #### Suzi ZAVALETA UMICRO #### [facility] [address] [place] [address] Dr. Loyd Coppola Clarity (U) CLEAR Normal CLEAR [facility] Comment on above: Performed By: #### Suzi ZAVALETA UMICRO #### [facility] [facility] [address] [place] [address] Dr. Loyd Coppola Color (U) YELLOW Normal YELLOW [facility] Comment on above: Performed By: #### Suzi ZAVALETA UMICRO #### [facility] [address] [place] [address] Dr. Loyd DIAS A micrscopic examination will be performed if indicated. Normal [facility] Comment on above: Performed By: #### Suzi ZAVALETA UMICRO #### [facility] [address] [place] [address] Dr. Loyd Coppola Glucose Ql (U) Negative Normal NEGATIVE [facility] Comment on above: Performed By: #### Suzi ZAVALETA UMICRO #### [facility] [address] [place] [address] Dr. Loyd Coppola Hemoglobin Ql (U) TRACE-INTACT Abnormal NEGATIVE [facility] Comment on above: Performed By: #### Suzi ZAVALETA UMICRO #### [facility] [address] [place] [address] Dr. Loyd Coppola Ketones Ql (U) 80 mg/dl Abnormal NEGATIVE [facility] Comment on above: Performed By: #### JUSTIN CHAVARRIARO #### [facility] [address] [address] [address] Loyd Coppola LEUKOCYTES Negative Normal NEGATIVE [facility] Comment on above: Performed By: #### Suzi ZAVALETA UMICRO #### [facility] [address] [address] [address] Loyd Coppola Nitrite Ql (U) Negative Normal NEGATIVE [facility] Comment on above: Performed By: #### Suzi ZAVALETA UMICRO #### [facility] [address] [place] [address] Dr. Loyd Coppola pH (U) 6.5 [pH] Normal 5-9 [facility] Comment on above: Performed By: #### JUSTIN CHAVARRIARO #### [facility] [address] [place] [address] Dr. Loyd Coppola Protein (U) [Mass/Vol] 100 mg/dL Abnormal NEGATIVE/ TRACE [facility] Comment on above: Performed By: #### Suzi ZAVALETA UMICRO #### [facility] [address] [place] [address] Dr. Loyd Coppola SPEC GRAVITY 1.030 Abnormal 1.005-<=1.025 [facility] Comment on above: Performed By: #### Suzi ZAVALETA UMICRO #### [facility] [address] [place] [address] Dr. Loyd Coppola UR MICRO IND INDICATED Normal [facility] Comment on above: Performed By: #### JUSTIN CHAVARRIARO #### [facility] [address] [place] [address] Dr. Loyd Coppola Urobilinogen Qn (U) 0.2 {Taylor'U}/dL Normal 0.2 - 1. 0 [facility] Comment on above: Performed By: #### Suzi ZAVALETA UMICRO #### [facility] [address] [place] [address] Dr. Loyd Coppola PROF 14(COMP METB)on 023 Albumin [Mass/Vol] 3.5 g/dL Normal 3.4-5.0 [facility] Comment on above: Performed By: #### C BC #### [facility] [address] [place] [address] Dr. Loyd Coppola Albumin/Globulin [Mass ratio] 0.9 {ratio} Normal [facility] Comment on above: Performed By: #### C BC #### [facility] [address] [address] [address] Loyd Coppola ALP [Catalytic activity/Vol] 61 U/L Normal 46-116 [facility] Comment on above: Performed By: #### C BC #### [facility] [address] [place] [address] Dr. Loyd Coppola ALT [Catalytic activity/Vol] 29 U/L Normal 14-59 [facility] Comment on above: Performed By: #### C BC #### [facility] [address] [place] [address] Dr. Loyd Coppola Anion gap [Moles/Vol] 12.0 mmol/L Normal [facility] Comment on above: Performed By: #### C BC #### [facility] [address] [place] [address] Dr. Loyd Coppola AST [Catalytic activity/Vol] 24 U/L Normal 15-37 [facility] Comment on above: Performed By: #### C BC #### [facility] [address] [place] [address] Dr. Loyd Coppola Bilirubin [Mass/Vol] 0.4 mg/dL Normal 0.2-1.0 [facility] Comment on above: Performed By: #### C BC #### [facility] [address] [place] [address] Dr. Loyd Coppola Calcium [Mass/Vol] 8.6 mg/dL Normal 8.5-10.1 [facility] Comment on above: Performed By: #### C BC #### [facility] [address] [place] [address] Dr. Loyd Coppola Chloride [Moles/Vol] 99 mmol/L Normal 98-107 [facility] Comment on above: Performed By: #### C BC #### [facility] [address] [address] [address] Loyd Coppola CO2 [Moles/Vol] 24.9 mmol/L Normal 21.0-32.0 [facility] Comment on above: Performed By: #### C BC #### [facility] [address] [address] [address] Loyd Coppola Creatinine [Mass/Vol] 0.55 mg/dL Normal 0.55-1.02 [facility] Comment on above: Performed By: #### C BC #### [facility] [address] [place] [address] Dr. Loyd Coppola EGFR-AF RUSSIAN >60 Normal >=60 [facility] Comment on above: Performed By: #### C BC #### [facility] [address] [place] [address] Dr. Loyd Coppola EGFR-NON AF RUSSIAN >60 Normal >=60 [facility] Comment on above: Performed By: #### C BC #### [facility] [address] [place] [address] Dr. Loyd Coppola Globulin (S) [Mass/Vol] 3.8 g/dL Normal [facility] Comment on above: Performed By: #### C BC #### [facility] [address] [place] [address] Dr. Loyd Coppoal Glucose [Mass/Vol] 106 mg/dL Normal 74-106 [facility] Comment on above: Performed By: #### C BC #### [facility] [address] [place] [address] Dr. Loyd Coppola Potassium [Moles/Vol] 2.9 mmol/L Critically low 3.5-5.1 [facility] Comment on above: Performed By: #### C BC #### [facility] [address] [place] [address] Dr. Loyd Coppola Protein [Mass/Vol] 7.3 g/dL Normal 6.4-8.2 [facility] Comment on above: Performed By: #### C BC #### [facility] [address] [place] [address] Dr. Loyd Coppola Sodium [Moles/Vol] 135 mmol/L Critically low 136-145 [facility] Comment on above: Performed By: #### C BC #### [facility] [address] [place] [address] Dr. Loyd Coppola Urea nitrogen [Mass/Vol] 12.0 mg/dL Normal 7.0-18.0 [facility] Comment on above: Performed By: #### C BC #### [facility] [address] [place] [address] Dr. Loyd Coppola Urea nitrogen/Creatinine [Mass ratio] 21.8 mg/mg Normal [facility] Comment on above: Performed By: #### C BC #### [facility] [address] [place] [address] Dr. Loyd Coppola URINE MICROSCOPIC ONLYon BACTERIA MODERATE Abnormal NONE SEEN [facility] Comment on above: Performed By: #### E RUR, UMICRO #### [facility] [address] [place] [address] Dr. Loyd Coppola Bacteria identified Cx Nom (U) INDICATED Normal [facility] Comment on above: Performed By: #### E RUR, UMICRO #### [facility] [address] [place] [address] Dr. Loyd Coppola CAST NONE SEEN Normal NONE SEEN [facility] Comment on above: Performed By: #### E RUR, UMICRO #### [facility] [address] [place] [address] Dr. Loyd Coppola Crystals LM Nom (Urine sed) NONE SEEN Normal NONE SEEN [facility] Comment on above: Performed By: #### E RUR, UMICRO #### [facility] [address] [place] [address] Dr. Loyd Coppola Epithelial cells LM Ql (Urine sed) MANY Abnormal NONE SEEN /RARE [facility] Comment on above: Performed By: #### E RUR, UMICRO #### [facility] [address] [place] [address] Dr. Loyd Coppola MUCOUS SMALL Abnormal NONE SEEN [facility] Comment on above: Performed By: #### E RUR, UMICRO #### [facility] [address] [place] [address] Dr. Loyd Coppola RBC 0-2 Normal 0-2 [facility] Comment on above: Performed By: #### JESUS CHAVARRIA #### [facility] [address] [place] [address] Dr. Loyd Coppola WBC 2-5 Abnormal NONE SEEN [facility] Comment on above: Performed By: #### JESUS CHAVARRIA #### [facility] [address] [place] [address] Dr. Loyd Coppola US PREG TVon 01-23-2023 [...] by: YOMAIRA GONZALEZ Date: 2023-01-23 15:42 Normal [facility] PAP ACOG PANEL 2: 21 to 29on 09-19-2022 . . Normal [facility] Comment on above: Performed By: #### [id number] #### [facility] [address] [place] [address] Dr. Loyd Coppola Age Gdln ACOG Testing 21-29 Normal [facility] Comment on above: Performed By: #### [id number] #### [facility] [address] [place] [address] Dr. Loyd Coppola DIAGNOSIS: Comment Normal [facility] Comment on above: Result Comment: NEGA TIVE FOR INTRAEPITHELIAL LESION OR MALIGNANCY. Performed By: #### [id number] #### [facility] [address] [place] [address] Dr. Loyd Coppola Methodology: Comment Normal [facility] Comment on above: Result Comment: This liquid based ThinPrep(R) pap test was screened with the use of an image guided system. Performed By: #### [id number] #### [facility] [address] [place] [address] Dr. Loyd Coppola Note: Comment Normal [facility] Comment on above: Result Comment: The Pap smear is a screening test designed to aid in the detection of premalignant and malignant conditions of the uterine cervix. It is not a diagnostic procedure and should not be used as the sole means of detecting cervical cancer. Both false-positive and false-negative reports do occur. . Performed By: #### [id number] #### [facility] [address] [place] [address] Dr. Loyd Coppola Performed by: Comment Normal [facility] Comment on above: Result Comment: Celestina Velasco, Calibration Laboratory Technician (ASCP) Performed By: #### [id number] #### [facility] [address] [place] [address] Dr. Loyd Coppola Reflex Criteria: Comment Normal [facility] Comment on above: Result Comment: The HPV DNA reflex criteria were not met with this specimen result therefore, no HPV testing was performed. . Performed By: #### [id number] #### [facility] [address] [place] [address] Dr. Loyd Coppola Specimen adequacy: Comment Normal [facility] Comment on above: Result Comment: Sati sfactory for evaluation. Endocervical and/or squamous metaplastic cells (endocervical component) are present. Performed By: #### [id number] #### [facility] [address] [place] [address] Dr. Loyd Coppola Vital Signs Date Time Vital Sign Value Performing Clinician Facility 03-23-2023 03:40-0400 Body weight 122.[address] JULIANNE LAMBERT . [facility] Comment on above: Performed By: #### JESUS CHAVARRIA #### [facility] [address] [place] [address] Dr. Loyd Coppola Encounters Encounter Date Encounter Type Care Provider Facility Start: 05-05-2024 End: 05-05-2024 ambulatory THOMAS FORMAN Not Available Start: 03-18-2024 End: 03-18-2024 ambulatory THOMAS FORMAN [...] Facility:[facility] Payers Date Payer Category Payer Unknown [id number] .[id number] 1992 Unknown [id number] 2.16.84 [id number] 1992 Unknown [id number] 2.16.84 [id number] 1992 Unknown [id number] 2.16.84 [id number] 1992 Unknown [id number] .16.84 [id number] 1992 Unknown [id number] 2.16.84 [id number] 1992 Unknown [id number] 2.16.84 [id number] 1992 Unknown [id number] 2.16.84 [id number] 1992 Unknown [id number] 2.16.84 [id number] 1992 Unknown [id number] 2.16.84 [id number] 1992 Unknown [id number] 2.16.84 [id number] 1992 Unknown [id number] 2.16.840 .[id number] 1959 Unknown [id number] Summary Purpose Family History No Family History Records FoundNo Family History Records Found Advance Directives No Advanced Directives Records FoundNo Advanced Directives Records Found Additional Source Comments INFORMATION SOURCE (unrecogn ized section and content) DATE CREATED AUTHOR 04/18/2023 [facility] DATE CREATED AUTHOR AUTHOR'S ORGANIZ ATLEONA 05/06/2024 [facility] FOR RECORDS PERTAINING TO PATIENTS WHO ARE [...] BE BASED ON THE PRIMARY CLINICAL RECORDS. [facility] [employer] provides no warranty or guarantee of the accuracy or completeness of information in this document.
== END 2024-11-26 08:34 | disposition home or self-care (01) ==
LOC: US 08:33
PROVIDERS: Visit Provider Obstetrics & Gynecology
DX: Z34.01 Encounter for supervision of normal first pregnancy, first trimester (principal); Z3A.09 9 weeks gestation of pregnancy; N92.6 Irregular menstruation, unspecified
CPT/HCPCS: 76817

== ENCOUNTER 2024-11-27 09:25 | Outpatient (OUT) | payer BC, SELFPAY ==
--- OUTSIDE RECORDS SUMMARY | 2024-11-27 09:28 | XMS_ITS | CCD ---
Author Organization [facility] CliniSyil Care Team Providers Care After School Coordinator Name Role Phone PETRA ., DR WHITAKER Admitting Unavailabl e KARASIK ., DR WHITAKER Attending Unavailabl e KARASIK ., DR WHITAKER Consulting Unavailabl e MISC, DR BELL Primary Care Unavailable ISABEL ., KESHA Admitting Unavailable SEBASTIAN ., DR GUZMAN Consulting Unavailable REQUEST, NONE LISTED Primary Care Unavaila ble ISABEL ., KESHA Attending Unavailable SEBASTIAN ., DR GUZMAN Attending Unavailable SEBASTIAN ., DR GUZMAN Consulting Unavailable REQUEST, NONE LISTED Primary Care Unavaila ble SEBASTIAN ., DR GUZMAN Admitting Unavailable SEBASTIAN ., DR GUZMAN Attending Unavailable SEBASTAIN ., DR GUZMAN Consulting Unavailable REQUEST, NONE LISTED Primary Care Unavaila ble SEBASTIAN ., DR GUZMAN Admitting Unavailable ZIEBER, DR YOMAIRA Godinez Consulting Unavailable REQUEST, NONE LISTED Consulting Unavaila ble SEBASTIAN ., DR GUZMAN Attending Unavailable SEBASTIAN ., DR GUZMAN Consulting Unavailable REQUEST, NONE LISTED Primary Care Unavaila ble SEBASTIAN ., DR GUZMAN Admitting Unavailable ZIEBER, DR YOMAIRA Godinez Consulting Unavailable MISC, DR BELL Primary Care Unavailable DEISI ., QUINTIN Admitting Unavailable DEISI ., QUINTIN Attending Unavailable DEISI ., QUINTIN Consulting Unavailable SEBASTIAN ., DR GUZMAN Attending Unavailable REQUEST, DR CHAO LISTED Primary Care Unavaila ble SEBASTIAN ., DR GUZMAN Admitting Unavailable SEBASTIAN ., DR GUZMAN Attending Unavailable REQUEST, NONE LISTED Primary Care Unavaila ble SEBASTIAN ., DR GUZMAN Consulting Unavailable SEBASTIAN ., DR GUZMAN Admitting Unavailable SEBASTIAN ., DR GUZMAN Attending Unavailable SEBASTIAN ., DR GUZMAN Consulting Unavailable REQUEST, DR NONE LISTED Primary Care Unavaila ble SEBASTIAN ., DR GUZMAN Admitting Unavailable SEBASTIAN, THOMAS Attending Unavailable ISABEL, KESHA Attending Unavailable SEBASTIAN, THOMAS Attending Unavailable Unavailable Primary Care Provider Unavailabl e Medications Current Medications Medication Drug Class(es) Dates Sig (Normalized) Sig (Original) ondansetron 4 mg disintegrating oral tablet (1 source) Serotonin-3 Receptor Antagonist Start: 2024 End: 12-24-2024 take 1 tablet by mouth every six hours as needed for nausea and vomiting and nausea and nausea ondansetron ODT (Zofran-ODT) 4 MG disintegrating tablet Indications: Nausea Take 1 tablet (4 mg) by mouth every 6 (six) hours if needed for nausea or vomiting 30 tablet 2 2024 12/24/2024 Active MV & Min w/FA-DHA ( Gummies) 0.18-25 MG chewable tablet (1 source) Start: 11-26-2024 End: 11-26-2025 MV & Min w/FA-DHA ( Gummies) 0.18-25 MG chewable tablet Indications: , unspecified gestational age , Encounter for supervision of normal first in first trimester Chew 1 tablet Daily 1 tablet 11 11/26/2024 11/26/2025 Active MV-Min-Fe Fum-FA-DHA ( 1 PO) (1 source) End: 11-26-2024 MV-Min-Fe Fum-FA-DHA ( 1 PO) Take by mouth. 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; Translations: [Pre-existing essential hypertension complicating , unspecified trimester] Onset: 04-18-2023 04-18-2023 Chronic Immunizations and screening for infectious disease (2 sources) Encounter for screening for human papillomavirus (HPV); Translations: [Contact with and (suspected) exposure to infections with a predominantly sexual mode of transmission] Onset: 02-21-2023 Episodic Menstrual disorders (4 sources) Irregular menstruation, unspecified; Translations: [Missed period] Onset: 01-23-2023 Chronic Other complications of (1 source) Other specified related conditions, first trimester; Translations: [OTH SPEC PREG RELATED COND 1ST TRI] Onset: 01-30-2023 Episodic Other female genital disorders (1 source) Other specified noninflammatory disorders of vagina; Translations: [OTH SPEC NONINFLAMMATORY D/O VAGINA] Onset: 02-21-2023 Episodic Other gastrointestinal disorders (1 source) Diarrhea, unspecified; Translations: [DIARRHEA UNSPECIFIED] Onset: 01-30-2023 Episodic Other and delivery including normal (11 sources) Encounter for supervision of normal , [...] WEEKS GESTATION OF ] Onset: 01-30-2023 Episodic Past or Other Problems Problem Classification Problem Date Documented Da te Episodic/Chronic Diabetes or abnormal glucose tolerance complicating ; childbirth; or the puerperium (1 source) Gestational diabetes mellitus; Translations: [Gestational diabetes mellitus in , unspecified control] Onset: 04-18-2023 04-18-2023 Episodic Nausea and vomiting (5 sources) Nausea with vomiting, unspecified; Translations: [Nausea] Onset: 01-28-2023 Episodic Other female genital disorders (1 source) H/O: premature delivery; Translations: [Personal history of pre-term labor] Onset: 02-24-2023 06-11-2023 Episodic Other injuries and conditions due to external causes (1 source) Other specified effects of external causes, initial encounter; Translations: [Contact with and (suspected) exposure to other potentially hazardous substances] Onset: 04-18-2023 04-18-2023 Episodic Results Test Name Value Interpretation Reference Range Facility GTT 3 HR PREGon 03-29-2023 Glucose [Mass/Vol] 107 mg/dL Critically high 74-106 T [facility] Comment on above: Performed By: #### G TT3P #### [facility] [address] [address] [address] Loyd Coppola Glucose [Mass/Vol] 203 mg/dL Normal [facility] Comment on above: Performed By: #### G TT3P #### [facility] [address] [address] [address] Loyd Coppola Glucose [Mass/Vol] 191 mg/dL Normal [facility] Comment on above: Performed By: #### G TT3P #### [facility] [address] [address] [address] Loyd Coppola Glucose [Mass/Vol] 121 mg/dL Normal [facility] Comment on above: Performed By: #### G TT3P #### [facility] [address] [address] [address] Loyd Coppola AFP MATERNAL FOR SPINA BIFID Aon 03-23-2023 AFP MoM 0.70 Normal [facility] Comment on above: Performed By: #### JUSTIN CHAVARRIARO #### [facility] [address] [address] [address] Loyd Coppola AFP Value 18.1 ng/mL Normal [facility] Comment on above: Performed By: #### JUSTIN CHAVARRIARO #### [facility] [address] [address] [address] Loyd Coppola AFP, Serum for Spina Bifida Report Normal [facility] Comment on above: Performed By: #### JUSTIN CHAVARRIARO #### [facility] [address] [place] [address] Dr. Loyd Coppola Comment Comment Normal [facility] Comment on above: Result Comment: Eboni Shah, Ph.D., [facility] Director . References: Available Upon Request. . Multiples Of Median Cutoffs For AFP Elevations Steiner 2.5 Black 2.8 IDD 2.0 Twins 4.5 Abbreviation Definitions IDD - Insulin Dep Diabetes OSBR - Open Spina Bifida Risk . For further inquiries contact [employer] [facility] at [phone]. . This test was developed and its performance characteristics determined by [employer]. It has not been cleared or approved by the Food and Drug Administration. Performed By: #### E SUHAR, UMICRO #### [facility] [address] [address] [address] Loyd Coppola Gest Age Collection Date 16.4 weeks Normal [facility] Comment on above: Performed By: #### E RUR, UMICRO #### [facility] [address] [place] [address] Dr. Loyd Coppola Gestat, Age Based on As provided [facility] Comment on above: Result Comment: Reca lculations are not recommended when gestational dating by LMP and ultrasound are within 10 days. Performed By: #### E SUHAR, UMICRO #### [facility] [address] [place] [address] Dr. Loyd Coppola Insulin Dep Diabetes No Normal [facility] Comment on above: Performed By: #### E SUHAR, UMICRO #### [facility] [address] [place] [address] Dr. Loyd Cpopola Interpretation Comment Normal [facility] Comment on above: Result Comment: Inte [...] Customer Services to discuss available options. The [employer] recommends amniocentesis be offered to women age 35 and older. Performed By: #### E RUR, UMICRO #### [facility] [address] [place] [address] Dr. Loyd Coppola [age] Normal [facility] Comment on above: Performed By: #### E SUHAR, UMICRO #### [facility] [address] [address] [address] Loyd Coppola Multiple Gestation No Normal [facility] Comment on above: Performed By: #### E RUR, UMICRO #### [facility] [address] [address] [address] Loyd Coppola OSBR [place] 1 [place] [address] [facility] Comment on above: Performed By: #### E RUHerbert UMICRO #### [facility] [address] [place] [address] Dr. Loyd Coppola PDF . [facility] Comment on above: Performed By: #### E MEGHANN UMICRO #### [facility] [address] [place] [address] Dr. Loyd Coppola Race [facility] Comment on above: Performed By: #### Suzi ZAVALETA UMICRO #### [facility] [address] [place] [address] Dr. Loyd Coppola Test Results: Negative [facility] Comment on above: Performed By: #### Suzi ZAVALETA UMICRO #### [facility] [address] [place] [address] Dr. Loyd Coppola GLUCOSE - 1HRon 03-21-2023 Glucose [Mass/Vol] 165 mg/dL Critically high 74-106 T [facility] Comment on above: Performed By: #### G LU1HR #### [facility] [address] [place] [address] Dr. Loyd Coppola PAP ACOG PANEL 2: 30 to 65on 02-19-2023 . . Normal [facility] Comment on above: Result Comment: Perf ormed at: WB Performed By: #### Suzi ZAVALETA UMICRO #### [facility] [address] [place] [address] Dr. Loyd Coppola Age Gdln ACOG Testing 30-65 [facility] Comment on above: Performed By: #### Suzi ZAVALETA UMICRO #### [facility] [address] [place] [address] Dr. Loyd Coppola DIAGNOSIS: Comment Normal [facility] Comment on above: Result Comment: NEGA TIVE FOR INTRAEPITHELIAL LESION OR MALIGNANCY. Performed at: WB Performed By: #### JUSTIN CHAVARRIARO #### [facility] [address] [place] [address] Dr. Loyd Coppola HPV Aptima Negative Normal Negative [facility] Comment on above: Result Comment: This nucleic acid amplification test detects fourteen high-risk HPV types (16,18,31,33,35,39,45,51,52,56,58,59,66,68) without differentiation. Performed at: =G Performed By: #### JUSTIN CHAVARRIARO #### [facility] [address] [place] [address] Dr. Loyd Coppola HPV Genotype Reflex Comment Normal [facility] Comment on above: Result Comment: Crit eria not met, HPV Genotype not performed. Performed at: WB Performed By: #### JUSTIN CHAVARRIARO #### [facility] [address] [place] [address] Dr. Loyd Coppola Methodology: Comment Normal [facility] Comment on above: Result Comment: This liquid based ThinPrep(R) pap test was screened with the use of an image guided system. Performed at: WB Performed By: #### JUSTIN CHAVARRIARO #### [facility] [address] [place] [address] Dr. Loyd Coppola Note: Comment Normal [facility] Comment on above: Result Comment: The Pap smear is a screening test designed to aid in the detection of premalignant and malignant conditions of the uterine cervix. It is not a diagnostic procedure and should not be used as the sole means of detecting cervical cancer. Both false-positive and false-negative reports do occur. . Performed at: WB Performed By: #### Suzi ZAVALETA UMJUAN FRANCISCORO #### [facility] [address] [place] [address] Dr. Loyd Coppola Performed by: Comment Normal [facility] Comment on above: Result Comment: Lidya Kirkpatrick, Whiskey Filterer (ASCP) Performed at: WB Performed By: #### Suzi ZAVALETA UMICRO #### [facility] [address] [place] [address] Dr. Loyd Coppola Specimen adequacy: Comment Normal [facility] Comment on above: Result Comment: Sati sfactory for evaluation. No endocervical component is identified. Performed at: WB Performed By: #### E JESUS ZAVALETA #### [facility] [address] [address] [address] Loyd Coppola US PREG CERVICAL LENGTHon [...] YOMAIRA GONZALEZ Date: 2023-02-18 15:51 Normal [facility] CHLAMYDIA/GONOCOCCUS ANTONELLA (SW AB/URINE/PAPon 02-15-2023 Chlamydia trachomatis, ANTONELLA Negative Normal Negative [facility] Comment on above: Performed By: #### C T/NGNA #### [facility] [address] [place] [address] Dr. Loyd Coppola Neisseria gonorrhoeae, ANTONELLA Negative Normal Negative [facility] Comment on above: Performed By: #### C T/NGNA #### [facility] [address] [place] [address] Dr. Loyd Coppola VAGINITIS/VAGINOSIS DNA PROB Vineet 02-15-2023 Leigha species Negative Normal Negative [facility] Comment on above: Performed By: #### C BC #### [facility] [address] [place] [address] Dr. Loyd Coppola Gardnerella vaginalis Negative Normal Negative [facility] Comment on above: Performed By: #### C BC #### [facility] [address] [place] [address] Dr. Loyd Coppola Trichomonas vaginalis Negative Normal Negative [facility] Comment on above: Performed By: #### C BC #### [facility] [address] [address] [address] Loyd Coppola HEP B SURFACE ANTIGEN SCREEN on 02-01-2023 HBsAg Screen Negative Normal Negative [facility] Comment on above: Performed By: #### H BSANS #### [facility] [address] [address] [address] Loyd Coppola HEPATITIS C VIRUS AB W/ REFL EX QUANTon 02-01-2023 HCV AB Non-Reactive Normal Non Reactive [facility] Comment on above: Performed By: #### C BC #### [facility] [address] [place] [address] Dr. Loyd Coppola Interpretation: Comment Normal [facility] Comment on above: Result Comment: Not infected with HCV unless early or acute infection is suspected (which may be delayed in an immunocompromised individual), or other evidence exists to indicate HCV infection. Performed By: #### C BC #### [facility] [address] [place] [address] Dr. Loyd Coppola HIV 1 AND 2 WITH REFLEXon HIV Screen 4th Generation wRfx Non-Reactive Normal Non Reactive [facility] Comment on above: Result Comment: HIV Negative HIV-1/HIV-2 antibodies and HIV-1 p24 antigen were NOT detected. There is no laboratory evidence of HIV infection. Performed By: #### C BC #### [facility] [address] [place] [address] Dr. Loyd Coppola RPR QUANTon 02-01-2023 Rapid Plasma Reagin, Quant Non-Reactive Normal NonRea<1:1 [facility] Comment on above: Result Comment: Plea se Note: This test does not meet current guidelines for screening and diagnosis of syphilis. This test is intended for following treatment response in patients being treated for syphilis infection. To screen for syphilis infection, a reflex cascade that includes both RPR and a treponema-specific assay should be utilized, such as Treponema pallidum (Syphilis) Screening Luna (509537) or Rapid Plasma Reagin (RPR) Test With Reflex to Quantitative RPR and Confirmatory Treponema pallidum Antibodies (715906). Performed By: #### JESUS CHAVARRIA #### [facility] [address] [place] [address] Dr. Loyd Coppola RUBELLA AB IGGon 02-01-2023 Rubella Antibodies, IgG 1.08 index Normal Immune >0.99 [facility] Comment on above: Result Comment: Non- immune <0.90 Equivocal 0.90 - 0.99 Immune >0.99 Performed By: #### C BC #### [facility] [address] [place] [address] Dr. Loyd Coppola BOX TEST SENT OUTon 02-01-20 23 SENT TO REF LAB 01/31/23 Normal [facility] Comment on above: Performed By: #### JESUS CHAVARRIA #### [facility] [address] [place] [address] Dr. Loyd Coppola CBC AUTO DIFFon 01-31-2023 BASO # 0.0 103/ul Normal 0.0-0.1 [facility] Comment on above: Performed By: #### C BC #### [facility] [address] [place] [address] Dr. Loyd Coppola Basophils/100 WBC (Bld) 0.2 % Normal 0.2-2.0 [facility] Comment on above: Performed By: #### C BC #### [facility] [address] [place] [address] Dr. Loyd Coppola EO # 0.1 103/ul Normal 0.0-0.7 [facility] Comment on above: Performed By: #### C BC #### [facility] [address] [place] [address] Dr. Loyd Coppola Eosinophils/100 WBC (Bld) 1.5 % Normal 0.9-7.0 [facility] Comment on above: Performed By: #### C BC #### [facility] [address] [place] [address] Dr. Loyd Coppola Erythrocyte distribution width (RBC) [Ratio] 12.3 % Normal 11.0-15.0 [facility] Comment on above: Performed By: #### C BC #### [facility] [address] [place] [address] Dr. Loyd Coppola Hematocrit (Bld) [Volume fraction] 39.3 % Normal 36.0-48.0 [facility] Comment on above: Performed By: #### C BC #### [facility] [address] [place] [address] Dr. Loyd Coppola Hemoglobin (Bld) [Mass/Vol] 14.3 g/dL Normal 12.0-16.0 [facility] Comment on above: Performed By: #### C BC #### [facility] [address] [place] [address] Dr. Loyd Coppola IG # 0.03 10e3/ul Normal 0.00-0.03 [facility] Comment on above: Performed By: #### C BC #### [facility] [address] [place] [address] Dr. Loyd Coppola IG % 0.3 % Normal 0.0-0.5 [facility] Comment on above: Performed By: #### C BC #### [facility] [address] [place] [address] Dr. Loyd Coppola LYMPH # 2.3 103/ul Normal 1.2-3.8 [facility] Comment on above: Performed By: #### C BC #### [facility] [address] [place] [address] Dr. Loyd Coppola Lymphocytes/100 WBC (Bld) 24.8 % Normal 20.5-60.0 [facility] Comment on above: Performed By: #### C BC #### [facility] [address] [place] [address] Dr. Loyd Coppola MANUAL DIFF REQ NO Normal [facility] Comment on above: Performed By: #### C BC #### [facility] [address] [place] [address] Dr. Loyd Coppola MCH (RBC) [Entitic mass] 32.6 pg Normal 26.7-34.0 [facility] Comment on above: Performed By: #### C BC #### [facility] [address] [place] [address] Dr. Loyd Coppola MCHC (RBC) [Mass/Vol] 36.4 g/dL Critically high 29.9-35.2 [facility] Comment on above: Performed By: #### C BC #### [facility] [address] [place] [address] Dr. Loyd Coppola MCV (RBC) [Entitic vol] 89.7 fL Normal 81.0-99.0 [facility] Comment on above: Performed By: #### C BC #### [facility] [address] [place] [address] Dr. Loyd Coppola MONO # 0.5 103/ul Normal 0.3-0.8 [facility] Comment on above: Performed By: #### C BC #### [facility] [address] [place] [address] Dr. Loyd Coppola Monocytes/100 WBC (Bld) 5.2 % Normal 1.7-12.0 [facility] Comment on above: Performed By: #### C BC #### [facility] [address] [place] [address] Dr. Loyd Coppola NEUT # 6.4 103/ul Normal 1.4-6.5 [facility] Comment on above: Performed By: #### C BC #### [facility] [address] [place] [address] Dr. Loyd Coppola Neutrophils/100 WBC (Bld) 68.0 % Normal 43.0-75.0 [facility] Comment on above: Performed By: #### C BC #### [facility] [address] [place] [address] Dr. Loyd Coppola Platelet mean volume (Bld) [Entitic vol] 10.5 fL Normal 9.5-13.5 [facility] Comment on above: Performed By: #### C BC #### [facility] [address] [place] [address] Dr. Loyd Coppola PLT 171 103/ul Normal 150-450 [facility] Comment on above: Performed By: #### C BC #### [facility] [address] [place] [address] Dr. Loyd Coppola RBC 4.38 106/ul Normal 4.20-5.40 [facility] Comment on above: Performed By: #### C BC #### [facility] [address] [place] [address] Dr. Loyd Coppola WBC 9.4 103/ul Normal 4.0-11.0 [facility] Comment on above: Performed By: #### C BC #### [facility] [address] [place] [address] Dr. Loyd Coppola CULTURE URINEon 01-31-2023 CULTURE URINE Culture Observations : LIGHT GROWTH OF MIXED GENITAL CASSIDY. NO POTENTIAL PATHOGENS SEEN. Normal [facility] Comment on above: Performed By: #### C BC #### [facility] [address] [place] [address] Dr. Loyd Coppola CULTURE URINE Isolate 1 [...] F Trimethoprim/Sulfameth oxazole <=20 S F Normal [facility] Comment on above: Performed By: #### C BC #### [facility] [address] [place] [address] Dr. Loyd Coppola GLYCOHEMOGLOBIN A1Con 2022 ADA RECOMMENDATION SEE BELOW Normal [facility] Comment on above: Result Comment: ADA RECOMMENDED LIMIT 4.0 - 6.0 ADA THERAPEUTIC TARGET < 7.0 ACTION SUGGESTED > 7.0 Performed By: #### A 1C #### [facility] [address] [place] [address] Dr. Loyd Coppola Glucose [Mass/Vol] 100 mg/dL Normal [facility] Comment on above: Performed By: #### A 1C #### [facility] [address] [place] [address] Dr. Loyd Coppola HbA1c (Bld) [Mass fraction] 5.1 % Normal 4.5-6.2 [facility] Comment on above: Performed By: #### A 1C #### [facility] [address] [place] [address] Dr. Loyd Coppola TSHon 01-31-2023 TSH 0.495 uIU/mL Normal 0.358-3.[address] [facility] Comment on above: Performed By: #### E RUR, UMICRO #### [facility] [address] [place] [address] Dr. Loyd Coppola TYPE AND SCREENon 01-31-2023 TYPE AND SCREEN Negative Normal [facility] Comment on above: Performed By: #### C BC #### [facility] [address] [place] [address] Dr. Loyd Coppola CBC AUTO DIFFon 01-28-2023 BASO # 0.0 103/ul Normal 0.0-0.1 [facility] Comment on above: Performed By: #### C BC #### [facility] [address] [place] [address] Dr. Loyd Coppola Basophils/100 WBC (Bld) 0.2 % Normal 0.2-2.0 [facility] Comment on above: Performed By: #### C BC #### [facility] [address] [place] [address] Dr. Loyd Coppola EO # 0.1 103/ul Normal 0.0-0.7 [facility] Comment on above: Performed By: #### C BC #### [facility] [address] [place] [address] Dr. Loyd Coppola Eosinophils/100 WBC (Bld) 0.8 % Critically low 0.9-7.0 [facility] Comment on above: Performed By: #### C BC #### [facility] [address] [place] [address] Dr. Loyd Coppola Erythrocyte distribution width (RBC) [Ratio] 12.3 % Normal 11.0-15.0 [facility] Comment on above: Performed By: #### C BC #### [facility] [address] [place] [address] Dr. Loyd Coppola Hematocrit (Bld) [Volume fraction] 45.0 % Normal 36.0-48.0 [facility] Comment on above: Performed By: #### C BC #### [facility] [address] [place] [address] Dr. Loyd Coppola Hemoglobin (Bld) [Mass/Vol] 16.3 g/dL Critically high 12.0-16.0 [facility] Comment on above: Performed By: #### C BC #### [facility] [address] [place] [address] Dr. Loyd Copploa IG # 0.03 10e3/ul Normal 0.00-0.03 [facility] Comment on above: Performed By: #### C BC #### [facility] [address] [place] [address] Dr. Loyd Coppola IG % 0.4 % Normal 0.0-0.5 [facility] Comment on above: Performed By: #### C BC #### [facility] [address] [place] [address] Dr. Loyd Coppola LYMPH # 1.4 103/ul Normal 1.2-3.8 [facility] Comment on above: Performed By: #### C BC #### [facility] [address] [place] [address] Dr. Loyd Coppola Lymphocytes/100 WBC (Bld) 16.8 % Critically low 20.5-60.0 [facility] Comment on above: Performed By: #### C BC #### [facility] [address] [place] [address] Dr. Loyd oCppola MANUAL DIFF REQ NO Normal [facility] Comment on above: Performed By: #### C BC #### [facility] [address] [place] [address] Dr. Loyd Coppola MCH (RBC) [Entitic mass] 32.1 pg Normal 26.7-34.0 [facility] Comment on above: Performed By: #### C BC #### [facility] [address] [address] [address] Loyd Coppola MCHC (RBC) [Mass/Vol] 36.2 g/dL Critically high 29.9-35.2 [facility] Comment on above: Performed By: #### C BC #### [facility] [address] [address] [address] Loyd Coppola MCV (RBC) [Entitic vol] 88.8 fL Normal 81.0-99.0 [facility] Comment on above: Performed By: #### C BC #### [facility] [address] [address] [address] Loyd Coppola MONO # 0.9 103/ul Critically high 0.3-0.8 [facility] Comment on above: Performed By: #### C BC #### [facility] [address] [place] [address] Dr. Loyd Coppola Monocytes/100 WBC (Bld) 10.5 % Normal 1.7-12.0 [facility] Comment on above: Performed By: #### C BC #### [facility] [address] [place] [address] Dr. Loyd Coppola NEUT # 6.0 103/ul Normal 1.4-6.5 [facility] Comment on above: Performed By: #### C BC #### [facility] [address] [place] [address] Dr. oLyd Coppola Neutrophils/100 WBC (Bld) 71.3 % Normal 43.0-75.0 [facility] Comment on above: Performed By: #### C BC #### [facility] [address] [place] [address] Dr. Loyd Coppola Platelet mean volume (Bld) [Entitic vol] 10.7 fL Normal 9.5-13.5 [facility] Comment on above: Performed By: #### C BC #### [facility] [address] [place] [address] Dr. Loyd Coppola PLT 174 103/ul Normal 150-450 [facility] Comment on above: Performed By: #### C BC #### [facility] [address] [place] [address] Dr. Loyd Coppola RBC 5.07 106/ul Normal 4.20-5.40 [facility] Comment on above: Performed By: #### C BC #### [facility] [address] [place] [address] Dr. Loyd Coppola WBC 8.4 103/ul Normal 4.0-11.0 [facility] Comment on above: Performed By: #### C BC #### [facility] [address] [place] [address] Dr. Loyd Coppola ER URINE PROFILEon 3 Bilirubin Ql (U) SMALL Abnormal NEGATIVE [facility] Comment on above: Performed By: #### Suzi ZAVALETA UMICRO #### [facility] [address] [place] [address] Dr. Loyd Coppola Clarity (U) CLEAR Normal CLEAR [facility] Comment on above: Performed By: #### JUSTIN CHAVARRIARO #### [facility] [address] [place] [address] Dr. Loyd Coppola Color (U) YELLOW Normal YELLOW [facility] Comment on above: Performed By: #### JUSTIN CHAVARRIARO #### [facility] [address] [place] [address] Dr. Loyd DIAS A micrscopic examination will be performed if indicated. Normal [facility] Comment on above: Performed By: #### JUSTIN CHAVARRIARO #### [facility] [address] [place] [address] Dr. Loyd Coppola Glucose Ql (U) Negative Normal NEGATIVE [facility] Comment on above: Performed By: #### JUSTIN CHAVARRIARO #### [facility] [address] [place] [address] Dr. Loyd Coppola Hemoglobin Ql (U) TRACE-INTACT Abnormal NEGATIVE [facility] Comment on above: Performed By: #### JUSTIN CHAVARRIARO #### [facility] [address] [place] [address] Dr. Loyd Coppola Ketones Ql (U) 80 mg/dl Abnormal NEGATIVE [facility] Comment on above: Performed By: #### Suzi ZAVALETA UMICRO #### [facility] [address] [place] [address] Dr. Loyd Coppola LEUKOCYTES Negative Normal NEGATIVE [facility] Comment on above: Performed By: #### Suzi ZAVALETA, UMICRO #### [facility] [address] [place] [address] Dr. Loyd Coppola Nitrite Ql (U) Negative Normal NEGATIVE [facility] Comment on above: Performed By: #### Suzi ZAVALETA UMICRO #### [facility] [address] [place] [address] Dr. Loyd Coppola pH (U) 6.5 [pH] Normal 5-9 [facility] Comment on above: Performed By: #### Suzi ZAVALETA UMICRO #### [facility] [address] [place] [address] Dr. Loyd Coppola Protein (U) [Mass/Vol] 100 mg/dL Abnormal NEGATIVE/ TRACE [facility] Comment on above: Performed By: #### Suzi ZAVALETA UMICRO #### [facility] [address] [place] [address] Dr. Loyd Coppola SPEC GRAVITY 1.030 Abnormal 1.005-<=1.025 [facility] Comment on above: Performed By: #### Suzi ZAVALETA UMICRO #### [facility] [address] [place] [address] Dr. Loyd Coppola UR MICRO IND INDICATED Normal [facility] Comment on above: Performed By: #### Suzi ZAVALETA UMICRO #### [facility] [address] [place] [address] Dr. Loyd Coppola Urobilinogen Qn (U) 0.2 {Taylor'U}/dL Normal 0.2 - 1. 0 [facility] Comment on above: Performed By: #### Suzi ZAVALETA UMICRO #### [facility] [address] [place] [address] Dr. Loyd Coppola PROF 14(COMP METB)on 023 Albumin [Mass/Vol] 3.5 g/dL Normal 3.4-5.0 [facility] Comment on above: Performed By: #### C BC #### [facility] [address] [place] [address] Dr. Loyd Coppola Albumin/Globulin [Mass ratio] 0.9 {ratio} Normal [facility] Comment on above: Performed By: #### C BC #### [facility] [address] [place] [address] Dr. Loyd Coppola ALP [Catalytic activity/Vol] 61 U/L Normal 46-116 [facility] Comment on above: Performed By: #### C BC #### [facility] [address] [place] [address] Dr. Loyd Coppola ALT [Catalytic activity/Vol] 29 U/L Normal 14-59 [facility] Comment on above: Performed By: #### C BC #### [facility] [address] [place] [address] Dr. Loyd Coppola Anion gap [Moles/Vol] 12.0 mmol/L Normal [facility] Comment on above: Performed By: #### C BC #### [facility] [address] [place] [address] Dr. Loyd Coppola AST [Catalytic activity/Vol] 24 U/L Normal 15-37 [facility] Comment on above: Performed By: #### C BC #### [facility] [address] [place] [address] Dr. Loyd Coppola Bilirubin [Mass/Vol] 0.4 mg/dL Normal 0.2-1.0 [facility] Comment on above: Performed By: #### C BC #### [facility] [address] [place] [address] Dr. Loyd Coppola Calcium [Mass/Vol] 8.6 mg/dL Normal 8.5-10.1 [facility] Comment on above: Performed By: #### C BC #### [facility] [address] [place] [address] Dr. Loyd Coppola Chloride [Moles/Vol] 99 mmol/L Normal 98-107 [facility] Comment on above: Performed By: #### C BC #### [facility] [address] [address] [address] Loyd Coppola CO2 [Moles/Vol] 24.9 mmol/L Normal 21.0-32.0 [facility] Comment on above: Performed By: #### C BC #### [facility] [address] [address] [address] Loyd Coppola Creatinine [Mass/Vol] 0.55 mg/dL Normal 0.55-1.02 [facility] Comment on above: Performed By: #### C BC #### [facility] [address] [address] [address] Loyd Coppola EGFR-AF CITIZEN [place] >60 Normal >=60 [facility] Comment on above: Performed By: #### C BC #### [facility] [address] [address] [address] Loyd Coppola EGFR-NON AF CITIZEN OF [place] >60 Normal >=60 [facility] Comment on above: Performed By: #### C BC #### [facility] [address] [address] [address] Loyd Coppola Globulin (S) [Mass/Vol] 3.8 g/dL Normal [facility] Comment on above: Performed By: #### C BC #### [facility] [address] [address] [address] Loyd Coppola Glucose [Mass/Vol] 106 mg/dL Normal 74-106 [facility] Comment on above: Performed By: #### C BC #### [facility] [address] [address] [address] Loyd Coppola Potassium [Moles/Vol] 2.9 mmol/L Critically low 3.5-5.1 [facility] Comment on above: Performed By: #### C BC #### [facility] [address] [place] [address] Dr. Loyd Coppola Protein [Mass/Vol] 7.3 g/dL Normal 6.4-8.2 [facility] Comment on above: Performed By: #### C BC #### [facility] [address] [place] [address] Dr. Loyd Coppola Sodium [Moles/Vol] 135 mmol/L Critically low 136-145 [facility] Comment on above: Performed By: #### C BC #### [facility] [address] [place] [address] Dr. Loyd Coppola Urea nitrogen [Mass/Vol] 12.0 mg/dL Normal 7.0-18.0 [facility] Comment on above: Performed By: #### C BC #### [facility] [address] [place] [address] Dr. Loyd Coppola Urea nitrogen/Creatinine [Mass ratio] 21.8 mg/mg Normal [facility] Comment on above: Performed By: #### C BC #### [facility] [address] [place] [address] Dr. Loyd Coppola URINE MICROSCOPIC ONLYon BACTERIA MODERATE Abnormal NONE SEEN [facility] Comment on above: Performed By: #### Suzi ZAVALETA UMICRO #### [facility] [address] [place] [address] Dr. Loyd Coppola Bacteria identified Cx Nom (U) INDICATED Normal [facility] Comment on above: Performed By: #### Suzi ZAVALETA UMICRO #### [facility] [address] [place] [address] Dr. Loyd Coppola CAST NONE SEEN Normal NONE SEEN [facility] Comment on above: Performed By: #### Suzi ZAVALETA UMICRO #### [facility] [address] [place] [address] Dr. Loyd Coppola Crystals LM Nom (Urine sed) NONE SEEN Normal NONE SEEN [facility] Comment on above: Performed By: #### Suzi ZAVALETA UMICRO #### [facility] [address] [place] [address] Dr. Loyd Coppola Epithelial cells LM Ql (Urine sed) MANY Abnormal NONE SEEN /RARE [facility] Comment on above: Performed By: #### Suzi ZAVALETA UMICRO #### [facility] [address] [place] [address] Dr. Loyd Coppola MUCOUS SMALL Abnormal NONE SEEN [facility] Comment on above: Performed By: #### MORGAN CHAVARRIAICRO #### [facility] [address] [address] [address] Loyd Coppola RBC 0-2 Normal 0-2 [facility] Comment on above: Performed By: #### Suzi ZAVALETA UMICRO #### [facility] [address] [address] [address] Loyd Coppola WBC 2-5 Abnormal NONE SEEN [facility] Comment on above: Performed By: #### MORGAN CHAVARRIAICRO #### [facility] [address] [address] [address] Loyd Coppola US PREG TVon 01-23-2023 [...] by: YOMAIRA GONZALEZ Date: 2023-01-23 15:42 Normal [facility] PAP ACOG PANEL 2: 21 to 29on 09-19-2022 . . Normal [facility] Comment on above: Performed By: #### [id number] #### [facility] [address] [place] [address] Dr. Loyd Coppola Age Gdln ACOG Testing 21-29 Normal [facility] Comment on above: Performed By: #### [id number] #### [facility] [address] [address] [address] Loyd Coppola DIAGNOSIS: Comment Normal [facility] Comment on above: Result Comment: NEGA TIVE FOR INTRAEPITHELIAL LESION OR MALIGNANCY. Performed By: #### [id number] #### [facility] [address] [place] [address] Dr. Loyd Coppola Methodology: Comment Normal [facility] Comment on above: Result Comment: This liquid based ThinPrep(R) pap test was screened with the use of an image guided system. Performed By: #### [id number] #### [facility] [address] [place] [address] Dr. Loyd Coppola Note: Comment Normal [facility] Comment on above: Result Comment: The Pap smear is a screening test designed to aid in the detection of premalignant and malignant conditions of the uterine cervix. It is not a diagnostic procedure and should not be used as the sole means of detecting cervical cancer. Both false-positive and false-negative reports do occur. . Performed By: #### [id number] #### [facility] [address] [place] [address] Dr. Loyd Coppola Performed by: Comment Normal [facility] Comment on above: Result Comment: Celestina Velasco, Whiskey Filterer (ASCP) Performed By: #### [id number] #### [facility] [address] [place] [address] Dr. Loyd Coppola Reflex Criteria: Comment Normal [facility] Comment on above: Result Comment: The HPV DNA reflex criteria were not met with this specimen result therefore, no HPV testing was performed. . Performed By: #### [id number] #### [facility] [address] [place] [address] Dr. Loyd Coppola Specimen adequacy: Comment Normal [facility] Comment on above: Result Comment: Sati sfactory for evaluation. Endocervical and/or squamous metaplastic cells (endocervical component) are present. Performed By: #### [id number] #### [facility] [address] [place] [address] Dr. Loyd Coppola Vital Signs Date Time Vital Sign Value Performing Clinician Facility 11-26-2024 09:44-0500 Body mass index (BMI) [Ratio] 43.95 kg/m2 [facility] Nurse [facility] 11-26-2024 09:44-0500 Body weight 127.28 kg [facility] Nurse [facility] 03-23-2023 03:40-0400 Body weight 122.[address] JULIANNE LAMBERT . [facility] Comment on above: Performed By: #### JESUS SANDOVAL #### [facility] [address] [address] [address] Loyd Coppola Encounters Encounter Date Encounter Type Care Provider Facility Start: 11-26-2024 End: 11-26-2024 Office outpatient visit 5 minutes [facility] Nurse [facility] Comment on above: GA: 10w0d Start: 05-05-2024 End: 05-05-2024 ambulatory THOMAS CORTES Not Available Start: 03-18-2024 End: 03-18-2024 ambulatory THOMAS CORTES Not Available Start: 10-08-2023 End: 10-08-2023 ambulatory KESHA HALL Not Available Start: 04-09-[address] THOMAS CORTES . Facili ty:[facility] Start: 03-29-2023 End: 03-30-2023 ambulatory KESHA HALL . Facility:[facility] Start: 03-21-2023 End: 03-22-[address] THOMAS CORTES . Facility:[facility] Start: 02-18-2023 End: 02-19-[address] THOMAS CORTES . Facility:[facility] Start: 02-13-2023 End: 02-13-[address] THOMAS CORTES . Facility:[facility] Start: 01-31-2023 End: 02-01-[address] THOMAS CORTES . Facility:[facility] Start: 01-28-2023 End: 01-28-[address] DOCTOR BANUELOS Facility:[facility] Start: 01-23-2023 End: 01-24-[address] THOMAS CORTES . Facility:[facility] Start: 09-11-2022 End: 09-11-[address] JULIANNE LAMBERT . Facility:[facility] Plan of Treatment Date Care Activity Detail Author Start: 12-27-2024 End: 12-27-2024 Patient encounter procedure 12/27/2024 1:40 PM EST Routine [facility] [address] [place] [id number] Thomas Cortes DO [address] [place] [address] [facility] Start: 11-26-2024 End: 11-26-2025 ABO/Rh ABO/Rh Lab Routine Missed menses , unspecified gestational age Expected: 11/26/2024 (Approximate), Expires: 11/26/2025 [facility] Comment on above: Expected: 11/26/2024 (Approximate), Expires: 11/26/2025 Start: 11-26-2024 End: 11-26-2025 Blood type and Indirect antibody screen panel - Blood Type and screen Lab Routine Missed menses , unspecified gestational age Expected: 11/26/2024 (Approximate), Expires: 11/26/2025 [facility] Work Phone: Comment on above: Expected: 11/26/2024 (Approximate), Expires: 11/26/2025 Start: 11-26-2024 End: 11-26-2025 Drugs of abuse panel - Urine by Screen method Rapid drug screen, urine Lab Routine , unspecified gestational age Encounter for supervision of normal first in first trimester Expected: 11/26/2024 (Approximate), Expires: 11/26/2025 [facility] Comment on above: Expected: 11/26/2024 (Approximate), Expires: 11/26/2025 Bacteria identified in Urine by Culture Urine culture Microbiology Routine Missed menses Ordered: 11/26/2024 [facility] Comment on above: Ordered: 11/26/2024 CBC W Auto Different ial panel - Blood CBC and differential Lab Routine Missed menses , unspecified gestational age Ordered: 11/26/2024 [facility] Comment on above: Ordered: 11/26/2024 Hemoglobin A1c/Hemoglobin.total in Blood Hemoglobin A1c Lab Routine Missed menses , unspecified gestational age Ordered: 11/26/2024 [facility] Comment on above: Ordered: 11/26/2024 Hepatitis B virus surface Ag [Presence] in Serum or Plasma by Immunoassay Hepatitis B surface antigen Lab Routine Missed menses , unspecified gestational age Ordered: 11/26/2024 [facility] Comment on above: Ordered: 11/26/2024 Hepatitis C virus Ab [Presence] in Serum or Plasma by Immunoassay Hepatitis C antibody Lab Routine Missed menses , unspecified gestational age Ordered: 11/26/2024 [facility] Comment on above: Ordered: 11/26/2024 HIV-1/HIV-2 antigen/antibody combination immunoassay HIV-1 and HIV-2 antibodies Lab Routine Missed menses , unspecified gestational age Ordered: 11/26/2024 [facility] Comment on above: Ordered: 11/26/2024 Reagin Ab [Presence] in Serum by RPR RPR Lab Routine Missed menses , unspecified gestational age Ordered: 11/26/2024 [facility] Comment on above: Ordered: 11/26/2024 Rubella antibody, IgG Rubella an tibody, IgG Lab Routine Missed menses , unspecified gestational age Ordered: 11/26/2024 [facility] Comment on above: Ordered: 11/26/2024 Payers Date Payer Category Payer [facility] BCBS [id number] 1992 Unknown [id number] [id number] 1992 Unknown [id number] [id number]. 2.593 1992 Unknown [id number] [id number]. 2.593 1992 Unknown [id number] [id number]. 2.593 1992 Unknown [id number] [id number]. 2.593 1992 Unknown [id number] [id number]. 2.593 1992 Unknown [id number] [id number]. 2.593 1992 Unknown [id number] 2.16.840.1.697966.3.579. 2.593 1992 Unknown [id number] [id number]. 2.593 1992 Unknown [id number] [id number]. 2.1259 1992 Unknown [id number] [id number]. 2.1259 1992 Unknown [id number] [id number]. 2.1259 1959 Unknown [id number] Social History Date Type Detail Facility Start: 04-22-2023 Tobacco smoking stat [facility] Ex-smoker [facility] History of tobacco use Current smoker [facility] History of tobacco use Cigarette Smoker [facility] Start: 11-26-2024 Alcoholic beverage intake Life time non-drinker (finding) [facility] Start: 03-18-2024 History of Social function [facility] Start: 03-18-2024 Tobacco use panel [facility] Start: 10-01-2024 [facility] Start: 1990 Sex assigned at Not on file [facility] History of Present illness Narrative 11-26-2024 Danay Ortega, RADHA - 11/26/2024 9:00 AM EST Note Date & Type Note Facility 11-26-2024 History of Presen t illness Narrative Reason for Appointment: Patient ID: Charlene Purvis is a 34 y.o. female who presents for Amenorrhea Patient presents today for a Nurse OB Intake appointment. Patient is 10w0d with a Estimated Date of Delivery: 06/24/25 OB History Para Term AB Living 3 1 1 1 1 SAB IAB Ectopic Multiple Live Births 1 1 # Outcome Date GA Lbr Pedro/2nd Weight Sex Type Anes PTL Lv 3 Current 2 Term 08/26/23 39w0d 8 lb 7 oz F Vag-Spont BREE 1 SAB 08/25/21 17w4d M Obstetric Comments Last pap smear date 09/11/2022 neg Current Medications: has a current medication list which includes the following prescription(s): ondansetron odt and gummies. Medical History: Active Ambulatory Problems Diagnosis Date Noted Benign essential hypertension in obstetric context 04/18/2023 Exposure to cat feces 04/18/2023 Gestational diabetes 04/18/2023 Nausea 04/18/2023 History of delivery 02/24/2023 Resolved Ambulatory Problems Diagnosis Date Noted No Resolved Ambulatory Problems Past Medical History: Diagnosis Date Chronic hypertension affecting Exposure to cat feces, sequela Former smoker Herpes exposure History of miscarriage Morbid obesity with BMI of 40.0-44.9, adult ([facility]) Family History Problem Relation Name Age of Onset Diabetes Mother No Known Problems Sister No Known Problems Brother Other (mutiple gestation) Other Other (multiple gestation: family members in general) Other Social History Tobacco Use Smoking status: Former Types: Cigarettes Smokeless tobacco: Not on file Vaping Use Vaping status: Every Day Substance Use Topics Alcohol use: Never Drug use: Never Past Surgical History: Procedure Laterality Date CHOLECYSTECTOMY 10/2018 ELBOW SURGERY 1997 broken elbow NECK SURGERY to remove getachew - benign PAP SMEAR 09/11/2022 negative No Known Allergies Vitals: Estimated body mass index is 43.95 kg/m as calculated from the following: Height as of 09/09/23: 5' 7 . Weight as of this encounter: 280 lb 9.6 oz. BP: Patient's last menstrual period was 09/17/2024. Assessment/Plan Diagnoses and all orders for this visit: Missed menses - Type and screen; Future - ABO/Rh; Future - CBC and differential - Hemoglobin A1c - RPR - Rubella antibody, IgG - Hepatitis B surface antigen - Hepatitis C antibody - HIV-1 and HIV-2 antibodies - Urine culture , unspecified gestational age - Type and screen; Future - ABO/Rh; Future - CBC and differential - Hemoglobin A1c - RPR - Rubella antibody, IgG - Hepatitis B surface antigen - Hepatitis C antibody - HIV-1 and HIV-2 antibodies - Rapid drug screen, urine; Future - MV & Min w/FA-DHA ( Gummies) 0.18-25 MG chewable tablet; Chew 1 tablet Daily Encounter for supervision of normal first in first trimester - Rapid drug screen, urine; Future - MV & Min w/FA-DHA ( Gummies) 0.18-25 MG chewable tablet; Chew 1 tablet Daily Nurse Note: OB Intake: Patient presents today for first OB visit. Patients history has been reviewed in great detail including any potential risks. Patient signed consent forms and patient desires testing in both trimesters. Patient currently has no complaints and has been advised to drink 6-8 glasses of water a day, eat no raw or undercooked meat, and stay away from [facility]. Patient has also been advised to not change litter boxes and eat 6 small meals a day. Patient has been consulted regarding the do's and don'ts of . Patient was given labs and all questions and concerns were answered. Follow Up: Patient is to return in 4 weeks for routine OB appointment. Follow Up: Patient is to have labs drawn at directed and return to office for initial OB appointment with provider. Patient may call office as needed with any concerns or questions. Nurse Visit Completed by: Daany Ortega LPN documented in this encounter [facility] Evaluation note Note Date & Type Note Facility Evaluation note Diagnosis Missed menses , unspecified gestational age Encounter for supervision of normal first in first trimester documented in this encounter [facility] Summary Purpose Family History No Family History Records FoundNo Family History Records Found Advance Directives No Advanced Directives Records FoundNo Advanced Directives Records Found Additional Source Comments INFORMATION SOURCE (unrecogn ized section and content) DATE CREATED AUTHOR 04/18/2023 [facility] DATE CREATED AUTHOR AUTHOR'S ORGANIZ ATION 05/06/2024 [facility] Reason for Visit (unrecogniz ed section and content) Reason Comments Amenorrhea FOR RECORDS PERTAINING TO PATIENTS WHO ARE [...] BE BASED ON THE PRIMARY CLINICAL RECORDS. [facility] provides no warranty or guarantee of the accuracy or completeness of information in this document.
[2024-11-27 10:12] LABS: Basophils Percent Auto 0.3 % (0.2-2.0); Eosinophils Absolute Auto 0.4 10^3/uL (0.0-0.7); Eosinophils Percent Auto 4.4 % (0.9-7.0); Hematocrit 44.2 % (36.0-48.0); Hemoglobin 15.2 g/dL (12.0-16.0); Immature Granulocytes Abs Auto 0.03 10^3/uL (0.00-0.03); Immature Granulocytes Pct Auto 0.3 % (0.0-0.5); Lymphocytes Absolute Auto 2.1 10^3/uL (1.2-3.8); Lymphocytes Percent Auto 24.6 % (20.5-60.0); Mean Corpuscular HGB Conc 34.4 g/dL (29.9-35.2); Mean Corpuscular Hemoglobin 31.7 pg (26.7-34.0); Mean Corpuscular Volume 92.1 fL (81.0-99.0); Mean Platelet Volume 9.9 fL (9.5-13.5); Monocytes Absolute Auto 0.6 10^3/uL (0.3-0.8); Monocytes Percent Auto 6.9 % (1.7-12.0); Neutrophils Absolute Auto 5.5 10^3/uL (1.4-6.5); Neutrophils Percent Auto 63.5 % (43.0-75.0); Platelet Count 209 10^3/uL (150-450); White Blood Count 8.7 10^3/uL (4.0-11.0)
[2024-11-27 10:28] LABS: Amphetamine Screen Urine NEGATIVE (NEGATIVE); Barbiturates Screen Urine NEGATIVE (NEGATIVE); Benzodiazepines Screen Urine NEGATIVE (NEGATIVE); Buprenorphine Screen Urine NEGATIVE (NEGATIVE); Cannabinoid Screen Urine NEGATIVE (NEGATIVE); Cocaine Screen Urine NEGATIVE (NEGATIVE); Methadone Screen Urine NEGATIVE (NEGATIVE); Methamphetamines Screen Urine NEGATIVE (NEGATIVE); Opiate Screen Urine NEGATIVE (NEGATIVE); Oxycodone Screen Urine NEGATIVE (NEGATIVE); Phencyclidine Screen Urine NEGATIVE (NEGATIVE); Tricyclic Antidepressant Urine NEGATIVE (NEGATIVE)
[2024-11-27 10:45] LABS: Estimated Average Glucose 111 mg/dL; Glycohemoglobin A1C 5.5 % (4.5-6.2)
[2024-11-27 11:55] LABS: BOX Test Reference Lab UNITY; BOX Test Sent Out UNITY
[2024-11-28 08:08] LABS: HIV Ab/p24 Ag Screen Non Reactive (Non Reactive); Rapid Plasma Reagin, Quant Non Reactive titer (NonRea<1:1)
[2024-11-28 09:11] LABS: HBsAg Screen Negative (Negative); HCV Ab Non Reactive (Non Reactive)
== END 2024-11-27 09:26 | disposition home or self-care (01) ==
LOC: LAB 09:26
PROVIDERS: Visit Provider Obstetrics & Gynecology
DX: Z34.01 Encounter for supervision of normal first pregnancy, first trimester (principal); Z36.0 Encounter for antenatal screening for chromosomal anomalies; N92.6 Irregular menstruation, unspecified
CPT/HCPCS: 36415; 80307; 83036; 85025; 86592; 86762; 86803; 86850; 86900; 86901; 87086; 87340; 87389

== ENCOUNTER 2025-01-08 08:21 | Outpatient (OUT) | payer BC, SELFPAY ==
--- OUTSIDE RECORDS SUMMARY | 2025-01-08 08:24 | XMS_ITS | CCD ---
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 Name Role Phone PETRA ., DR WHITAKER [...] REQUEST, DR CHAO LISTED Consulting Unavaila ble SEBASTIAN ., DR [...] ble SEBASTIAN ., DR GUZMAN Admitting Unavailable Unavailable Primary Care Provider Unavailabl e SEBASTIAN, THOMAS Attending Unavailable SEBASTIAN, THOMAS Attending Unavailable THOMAS CORTES Attending Unavailable Medications Current Medications Medication Drug Class(es) Dates Sig (Normalized) Sig (Original) ondansetron 4 mg disintegrating oral tablet (2 sources) Serotonin-3 Receptor Antagonist Start: 2024 End: 12-24-2024 take 1 tablet by mouth every six hours as needed for nausea and vomiting and nausea and nausea ondansetron ODT (Zofran-ODT) 4 MG disintegrating tablet Indications: Nausea Take 1 tablet (4 mg) by mouth every 6 (six) hours if needed for nausea or vomiting 30 tablet 2 2024 12/24/2024 Active MV & Min w/FA-DHA ( Adult Gummy/DHA/FA) 0.4-25 MG chewable tablet (3 sources) Start: 11-29-2024 End: 12-29-2024 MV & Min w/FA-DHA ( Adult Gummy/DHA/FA) 0.4-25 MG chewable tablet Indications: , unspecified gestational age , Encounter for supervision of normal first in first trimester Chew 1 each Daily 30 tablet 11 11/29/2024 12/29/2024 Active MV & Min w/FA-DHA ( Gummies) 0.18-25 MG chewable tablet (2 sources) Start: 11-26-2024 End: 11-26-2025 MV & Min [...] Hypertension complicating ; childbirth and the puerperium (5 sources) Benign essential hypertension in obstetric context; Translations: [...] 01-30-2023 Episodic Other and delivery including normal (13 sources) Encounter for supervision of normal , unspecified, second trimester; Translations: [Encounter for supervision of normal , unspecified, first trimester] Onset: 01-31-2023 Episodic Other screening for suspected conditions (not mental disorders or infectious disease) (7 sources) Encounter for screening for malignant neoplasm [...] WEEKS GESTATION OF ] Onset: 01-30-2023 Episodic Residual codes; unclassified (2 sources) Gestation period, 14 weeks; Translations: [14 weeks gestation of ] 12-28-2024 Episodic Past or Other Problems Problem Classification Problem Date Documented Da te Episodic/Chronic Diabetes or abnormal glucose tolerance complicating ; childbirth; or the puerperium (5 sources) Gestational diabetes mellitus; Translations: [Gestational diabetes mellitus in , unspecified control] Onset: 04-18-2023 04-18-2023 Episodic Nausea and vomiting (9 sources) Nausea with vomiting, unspecified; Translations: [Nausea] Onset: 01-28-2023 Episodic Other female genital disorders (5 sources) H/O: premature delivery; Translations: [Personal history of pre-term labor] Onset: 02-24-2023 06-11-2023 Episodic Other injuries and conditions due to external causes (5 sources) Other specified effects of external causes, initial encounter; Translations: [Contact with and (suspected) exposure to other potentially hazardous substances] Onset: 04-18-2023 04-18-2023 Episodic Results Test Name Value Interpretation Reference Range Facility Urinalysis macro (dipstick) panel (U)on 12-28-2024 Bilirubin, UA Negative Negative - 4(70) +++ mg/dL [facility] Blood, UA Negative Negative - 50 Eliceo/mcL [facility] Clarity, UA Clear [facility] Color, UA Yellow [facility] Glucose, UA Positive Negative - 1999(110) ++++ mg/dL [facility] Comment on above: 250mg/dL Interpretation and review of laboratory results Abnormal [facility] Ketones, UA Negative Negative - 160(16) ++++ mg/dL [facility] Leukocytes, UA Trace Negative - 500+++ Danielle/mcL [facility] Nitrite, UA Negative Negative - Positive [facility] pH, UA 6 5 - 9 [facility] Protein, UA Positive Negative - 2000(20) ++++ mg/dL [facility] Comment on above: 30mg/dL Spec Grav, UA 1.03 1 - 1.03 [facility] Urobilinogen, UA 0.2 0.2 - 12 mg/dL [facility] ALL CBC WITH AUTO DIFFon BASOPHILS ABSOLUTE AUTO 0 [facility] Basophils/100 WBC (Bld) 0.3 % 0.2 - 2.0 % [facility] Eosinophils/100 WBC (Bld) 4.4 % 0.9 - 7.0 % [facility] Erythrocyte distribution width (RBC) [Ratio] 12 % 11.0 - 15.0 % [facility] Hematocrit (Bld) [Volume fraction] 44.2 % 36.0 - 48.0 % [facility] Hemoglobin (Bld) [Mass/Vol] 15.2 g/dL 12.0 - 16.0 g/dL [facility] IMMATURE GRANULOCYTES ABS AUTO 0.03 [facility] Immature granulocytes/100 WBC (Bld) 0.3 % 0.0 - 0.5 % [facility] LYMPHOCYTES ABSOLUTE AUTO 2.1 [facility] Lymphocytes/100 WBC (Bld) 24.6 % 20.5 - 60.0 % [facility] MCH (RBC) [Entitic mass] 31.7 pg 26.7 - 34.0 pg [facility] MCHC (RBC) [Mass/Vol] 34.4 g/dL 29.9 - 35.2 g/dL [facility] MCV (RBC) [Entitic vol] 92.1 fL 81.0 - 99.0 fL [facility] MONOCYTES ABSOLUTE AUTO 0.6 [facility] Monocytes/100 WBC (Bld) 6.9 % 1.7 - 12.0 % [facility] NEUTROPHILS ABSOLUTE AUTO 5.5 [facility] Neutrophils/100 WBC (Bld) 63.5 % 43.0 - 75.0 % [facility] Platelet mean volume (Bld) [Entitic vol] 9.9 fL 9.5 - 13.5 fL [facility] TBH EO # 0.4 [facility]H PLT 209 [facility] RBC 4.8 [facility] WBC 8.7 [facility] GTT 3 HR PREGon 03-29-2023 Glucose [Mass/Vol] 107 mg/dL Critically high 74-106 [facility] Comment on above: Performed By: #### G TT3P #### [facility] [address] [address] [address] Loyd Coppola Glucose [Mass/Vol] 203 mg/dL Normal [facility] Comment on above: Performed By: #### G TT3P #### [facility] [address] [address] [address] Loyd Coppola Glucose [Mass/Vol] 191 mg/dL Normal [facility] Comment on above: Performed By: #### G TT3P #### [facility] [address] [address] [address] Loyd Coppola Glucose [Mass/Vol] 121 mg/dL Normal [facility] Comment on above: Performed By: #### G TT3P #### [facility] [address] [address] [address] Loyd Coppola AFP MATERNAL FOR SPINA BIFID Aon 03-23-2023 AFP MoM 0.70 Normal [facility] Comment on above: Performed By: #### E RUR, UMICRO #### [facility] [address] [address] [address] Loyd Coppola AFP Value 18.1 ng/mL Normal [facility] Comment on above: Performed By: #### E RUR, UMICRO #### [facility] [address] [address] [address] Loyd Coppola AFP, Serum for Spina Bifida Report Normal [facility] Comment on above: Performed By: #### E RUR, UMICRO #### [facility] [address] [address] [address] Loyd Coppola Comment Comment Normal [facility] Comment on above: Result Comment: Eboni Shah, Ph.D., [facility] Director . References: Available Upon Request. . Multiples Of Median Cutoffs For AFP Elevations Steiner 2.5 Black 2.8 IDD 2.0 Twins 4.5 Abbreviation Definitions IDD - Insulin Dep Diabetes OSBR - Open Spina Bifida Risk . For further inquiries contact [facility] at [phone]. . This test was developed and its performance characteristics determined by [employer]. It has not been cleared or approved by the Food and Drug Administration. Performed By: #### E RUR, UMICRO #### [facility] [address] [address] [address] Loyd Kohli Age Collection Date 16.4 weeks Normal [facility] Comment on above: Performed By: #### E RUR, UMICRO #### [facility] [address] [address] [address] Loyd Coppola Gestat, Age Based on As provided Normal [facility] Comment on above: Result Comment: Reca lculations are not recommended when gestational dating by LMP and ultrasound are within 10 days. Performed By: #### Suzi ZAVALETA UMICRO #### [facility] [address] [place] [address] Dr. Loyd Coppola Insulin Dep Diabetes No Normal [facility] Comment on above: Performed By: #### Suzi ZAVALETA UMICRO #### [facility] [address] [address] [address] Loyd Coppola Interpretation Comment Normal [facility] Comment on above: Result Comment: Inte [...] Customer Services to discuss available options. The [employer] recommends amniocentesis be offered to women age 35 and older. Performed By: #### JUSTIN CHAVARRIARO #### [facility] [address] [place] [address] Dr. Loyd Coppola [age] Normal [facility] Comment on above: Performed By: #### JUSTIN CHAVARRIARO #### [facility] [address] [place] [address] Dr. Loyd Coppola Multiple Gestation No Normal [facility] Comment on above: Performed By: #### MORGAN CHAVARRIAICRO #### [facility] [address] [place] [address] Dr. Loyd Coppola [place] [address] Normal [facility] Comment on above: Performed By: #### Suzi ZAVALETA UMICRO #### [facility] [address] [place] [address] Dr. Loyd Coppola PDF . [facility] Comment on above: Performed By: #### Suzi ZAVALETA UMICRO #### [facility] [address] [place] [address] Dr. Loyd Coppola Race Normal [facility] Comment on above: Performed By: #### Suzi BORDENR, UMICRO #### [facility] [address] [address] [address] Loyd Coppola Test Results: Negative Normal [facility] Comment on above: Performed By: #### E RUR, UMICRO #### [facility] [address] [address] [address] Loyd Coppola GLUCOSE - 1HRon 03-21-2023 Glucose [Mass/Vol] 165 mg/dL Critically high 74-106 [facility] Comment on above: Performed By: #### G LU1HR #### [facility] [address] [address] [address] Loyd Coppola PAP ACOG PANEL 2: 30 to 65on 02-19-2023 . . Normal [facility] Comment on above: Result Comment: Perf ormed at: WB Performed By: #### Suzi ZAVALETA, UMICRO #### [facility] [address] [place] [address] Dr. Loyd Coppola Age Gdln ACOG Testing 30-65 Normal [facility] Comment on above: Performed By: #### Suzi ZAVALETA, UMICRO #### [facility] [address] [address] [address] Loyd Coppola DIAGNOSIS: Comment Normal [facility] Comment on above: Result Comment: NEGA TIVE FOR INTRAEPITHELIAL LESION OR MALIGNANCY. Performed at: WB Performed By: #### Suzi ZAVALETA, UMICRO #### [facility] [address] [place] [address] Dr. Loyd Coppola HPV Aptima Negative Normal Negative [facility] Comment on above: Result Comment: This nucleic acid amplification test detects fourteen high-risk HPV types (16,18,31,33,35,39,45,51,52,56,58,59,66,68) without differentiation. Performed at: =G Performed By: #### E MEGHANN, UMICRO #### [facility] [address] [address] [address] Loyd Coppola HPV Genotype Reflex Comment Normal [facility] Comment on above: Result Comment: Crit eria not met, HPV Genotype not performed. Performed at: WB Performed By: #### E MEGHANN, UMICRO #### [facility] [address] [place] [address] Dr. Loyd Coppola Methodology: Comment Normal [facility] Comment on above: Result Comment: This liquid based ThinPrep(R) pap test was screened with the use of an image guided system. Performed at: WB Performed By: #### E MEGHANN UMICRO #### [facility] [address] [place] [address] Dr. Loyd Coppola Note: Comment Normal [facility] Comment on above: Result Comment: The [...] Performed By: #### Suzi ZAVALETA UMICRO #### [facility] [address] [place] [address] Dr. Loyd Coppola Performed by: Comment Normal [facility] Comment on above: Result Comment: Lidya Kirkpatrick, Fire Extinguisher Sprinkler Inspector (ASCP) Performed at: WB Performed By: #### Suzi ZAVALETA UMICRO #### [facility] [address] [place] [address] Dr. Loyd Coppola Specimen adequacy: Comment Normal [facility] Comment on above: Result Comment: Sati sfactory for evaluation. No endocervical component is identified. Performed at: WB Performed By: #### Suzi ZAVALETA UMICRO #### [facility] [address] [place] [address] Dr. Loyd Coppola US PREG CERVICAL LENGTHon [...] YOMAIRA GONZALEZ Date: 2023-02-18 15:51 Normal [facility] CHLAMYDIA/GONOCOCCUS ANTONELLA (SW AB/URINE/PAPon 02-15-2023 Chlamydia trachomatis, ANTONELLA Negative Normal Negative [facility] Comment on above: Performed By: #### C T/NGNA #### [facility] [address] [place] [address] Dr. Loyd Coppola Neisseria gonorrhoeae, ANTONELLA Negative Normal Negative [facility] Comment on above: Performed By: #### C T/NGNA #### [facility] [address] [place] [address] Dr. Loyd Coppola VAGINITIS/VAGINOSIS DNA PROB Vineet 02-15-2023 Leigha species Negative Normal Negative [facility] Comment on above: Performed By: #### C BC #### [facility] [address] [place] [address] Dr. Loyd Coppola Gardnerella vaginalis Negative Normal Negative [facility] Comment on above: Performed By: #### C BC #### [facility] [address] [place] [address] Dr. Loyd Coppola Trichomonas vaginalis Negative Normal Negative [facility] Comment on above: Performed By: #### C BC #### [facility] [address] [place] [address] Dr. Loyd Coppola HEP B SURFACE ANTIGEN SCREEN on 02-01-2023 HBsAg Screen Negative Normal Negative [facility] Comment on above: Performed By: #### H BSANS #### [facility] [address] [place] [address] Dr. Loyd Coppola HEPATITIS C VIRUS AB W/ REFL EX QUANTon 02-01-2023 HCV AB Non-Reactive Normal Non Reactive [facility] Comment on above: Performed By: #### C BC #### [facility] [address] [place] [address] Dr. Loyd Coppola Interpretation: Comment Normal [facility] Comment on above: Result Comment: Not infected with HCV unless early or acute infection is suspected (which may be delayed in an immunocompromised individual), or other evidence exists to indicate HCV infection. Performed By: #### C BC #### [facility] [address] [place] [address] Dr. Loyd Coppola HIV 1 AND 2 WITH REFLEXon HIV Screen 4th Generation wRfx Non-Reactive Normal Non Reactive [facility] Comment on above: Result Comment: HIV Negative HIV-1/HIV-2 antibodies and HIV-1 p24 antigen were NOT detected. There is no laboratory evidence of HIV infection. Performed By: #### C BC #### [facility] [address] [place] [address] Dr. Loyd Coppola RPR QUANTon 02-01-2023 Rapid Plasma Reagin, Quant Non-Reactive Normal NonRea<1:1 [facility] Comment on above: Result Comment: Plea se Note: This test does not meet current guidelines for screening and diagnosis of syphilis. This test is intended for following treatment response in patients being treated for syphilis infection. To screen for syphilis infection, a reflex cascade that includes both RPR and a treponema-specific assay should be utilized, such as Treponema pallidum (Syphilis) Screening [place] (733292) or Rapid Plasma Reagin (RPR) Test With Reflex to Quantitative RPR and Confirmatory Treponema pallidum Antibodies (555400). Performed By: #### JESUS CHAVARRIA #### [facility] [address] [place] [address] Dr. Loyd Coppola RUBELLA AB IGGon 02-01-2023 Rubella Antibodies, IgG 1.08 index Normal Immune >0.99 [facility] Comment on above: Result Comment: Non- immune <0.90 Equivocal 0.90 - 0.99 Immune >0.99 Performed By: #### C BC #### [facility] [address] [place] [address] Dr. Loyd Coppola BOX TEST SENT OUTon 02-01-20 SENT TO REF LAB 01/31/23 Normal [facility] Comment on above: Performed By: #### E JUSTIN ZAVALETARO #### [facility] [address] [place] [address] Dr. Loyd Coppola CBC AUTO DIFFon 01-31-2023 BASO # 0.0 103/ul Normal 0.0-0.1 [facility] Comment on above: Performed By: #### C BC #### [facility] [address] [place] [address] Dr. Loyd Coppola Basophils/100 WBC (Bld) 0.2 % Normal 0.2-2.0 [facility] Comment on above: Performed By: #### C BC #### [facility] [address] [place] [address] Dr. Loyd Coppola EO # 0.1 103/ul Normal 0.0-0.7 [facility] Comment on above: Performed By: #### C BC #### [facility] [address] [place] [address] Dr. Loyd Coppola Eosinophils/100 WBC (Bld) 1.5 % Normal 0.9-7.0 [facility] Comment on above: Performed By: #### C BC #### [facility] [address] [place] [address] Dr. Loyd Coppola Erythrocyte distribution width (RBC) [Ratio] 12.3 % Normal 11.0-15.0 [facility] Comment on above: Performed By: #### C BC #### [facility] [address] [place] [address] Dr. Loyd Coppola Hematocrit (Bld) [Volume fraction] 39.3 % Normal 36.0-48.0 [facility] Comment on above: Performed By: #### C BC #### [facility] [address] [place] [address] Dr. Loyd Coppola Hemoglobin (Bld) [Mass/Vol] 14.3 g/dL Normal 12.0-16.0 [facility] Comment on above: Performed By: #### C BC #### [facility] [address] [place] [address] Dr. Loyd Coppola IG # 0.03 10e3/ul Normal 0.00-0.03 [facility] Comment on above: Performed By: #### C BC #### [facility] [address] [place] [address] Dr. Loyd Coppola IG % 0.3 % Normal 0.0-0.5 [facility] Comment on above: Performed By: #### C BC #### [facility] [address] [place] [address] Dr. Loyd Coppola LYMPH # 2.3 103/ul Normal 1.2-3.8 [facility] Comment on above: Performed By: #### C BC #### [facility] [address] [place] [address] Dr. Loyd Coppola Lymphocytes/100 WBC (Bld) 24.8 % Normal 20.5-60.0 [facility] Comment on above: Performed By: #### C BC #### [facility] [address] [place] [address] Dr. Loyd Coppola MANUAL DIFF REQ NO Normal [facility] Comment on above: Performed By: #### C BC #### [facility] [address] [place] [address] Dr. Loyd Coppola MCH (RBC) [Entitic mass] 32.6 pg Normal 26.7-34.0 [facility] Comment on above: Performed By: #### C BC #### [facility] [address] [place] [address] Dr. Loyd Coppola MCHC (RBC) [Mass/Vol] 36.4 g/dL Critically high 29.9-35.2 [facility] Comment on above: Performed By: #### C BC #### [facility] [address] [place] [address] Dr. Loyd Coppola MCV (RBC) [Entitic vol] 89.7 fL Normal 81.0-99.0 [facility] Comment on above: Performed By: #### C BC #### [facility] [address] [place] [address] Dr. Loyd Coppola MONO # 0.5 103/ul Normal 0.3-0.8 [facility] Comment on above: Performed By: #### C BC #### [facility] [address] [place] [address] Dr. Loyd Coppola Monocytes/100 WBC (Bld) 5.2 % Normal 1.7-12.0 [facility] Comment on above: Performed By: #### C BC #### [facility] [address] [place] [address] Dr. Loyd Coppola NEUT # 6.4 103/ul Normal 1.4-6.5 [facility] Comment on above: Performed By: #### C BC #### [facility] [address] [place] [address] Dr. Loyd Coppola Neutrophils/100 WBC (Bld) 68.0 % Normal 43.0-75.0 [facility] Comment on above: Performed By: #### C BC #### [facility] [address] [place] [address] Dr. Loyd Coppola Platelet mean volume (Bld) [Entitic vol] 10.5 fL Normal 9.5-13.5 [facility] Comment on above: Performed By: #### C BC #### [facility] [address] [place] [address] Dr. Loyd Coppola PLT 171 103/ul Normal 150-450 [facility] Comment on above: Performed By: #### C BC #### [facility] [address] [place] [address] Dr. Loyd Coppola RBC 4.38 106/ul Normal 4.20-5.40 [facility] Comment on above: Performed By: #### C BC #### [facility] [address] [place] [address] Dr. Loyd Coppola WBC 9.4 103/ul Normal 4.0-11.0 [facility] [facility] Comment on above: Performed By: #### C BC #### [facility] [address] [place] [address] Dr. Loyd Coppola CULTURE URINEon 01-31-2023 CULTURE URINE Culture Observations : LIGHT GROWTH OF MIXED GENITAL CASSIDY. NO POTENTIAL PATHOGENS SEEN. Normal [facility] Comment on above: Performed By: #### C BC #### [facility] [address] [place] [address] Dr. Loyd Coppola CULTURE URINE Isolate 1 [...] F Trimethoprim/Sulfameth oxazole <=20 S F Normal [facility] Comment on above: Performed By: #### C BC #### [facility] [address] [place] [address] Dr. Loyd Coppola GLYCOHEMOGLOBIN A1Con 2022 ADA RECOMMENDATION SEE BELOW Normal [facility] Comment on above: Result Comment: ADA RECOMMENDED LIMIT 4.0 - 6.0 ADA THERAPEUTIC TARGET < 7.0 ACTION SUGGESTED > 7.0 Performed By: #### A 1C #### [facility] [address] [place] [address] Dr. Loyd Coppola Glucose [Mass/Vol] 100 mg/dL Normal The [facility] Comment on above: Performed By: #### A 1C #### [facility] [address] [place] [address] Dr. oLyd Coppola HbA1c (Bld) [Mass fraction] 5.1 % Normal 4.5-6.2 [facility] Comment on above: Performed By: #### A 1C #### [facility] [address] [place] [address] Dr. Loyd Coppola TSHon 01-31-2023 TSH 0.495 uIU/mL Normal 0.358-3.740 The [facility] Comment on above: Performed By: #### JESUS CHAVARRIA #### [facility] [address] [place] [address] Dr. Loyd Coppola TYPE AND SCREENon 01-31-2023 TYPE AND SCREEN Negative Normal The [facility] Comment on above: Performed By: #### C BC #### [facility] [address] [place] [address] Dr. Loyd Coppola CBC AUTO DIFFon 01-28-2023 BASO # 0.0 103/ul Normal 0.0-0.1 [facility] Comment on above: Performed By: #### C BC #### [facility] [address] [place] [address] Dr. Loyd Coppola Basophils/100 WBC (Bld) 0.2 % Normal 0.2-2.0 [facility] Comment on above: Performed By: #### C BC #### [facility] [address] [place] [address] Dr. Loyd Coppola EO # 0.1 103/ul Normal 0.0-0.7 [facility] Comment on above: Performed By: #### C BC #### [facility] [address] [place] [address] Dr. Loyd Coppola Eosinophils/100 WBC (Bld) 0.8 % Critically low 0.9-7.0 [facility] Comment on above: Performed By: #### C BC #### [facility] [address] [place] [address] Dr. Loyd Coppola Erythrocyte distribution width (RBC) [Ratio] 12.3 % Normal 11.0-15.0 [facility] Comment on above: Performed By: #### C BC #### [facility] [address] [place] [address] Dr. Loyd Coppola Hematocrit (Bld) [Volume fraction] 45.0 % Normal 36.0-48.0 [facility] Comment on above: Performed By: #### C BC #### [facility] [address] [place] [address] Dr. Loyd Coppola Hemoglobin (Bld) [Mass/Vol] 16.3 g/dL Critically high 12.0-16.0 [facility] Comment on above: Performed By: #### C BC #### [facility] [address] [place] [address] Dr. Loyd Coppola IG # 0.03 10e3/ul Normal 0.00-0.03 [facility] Comment on above: Performed By: #### C BC #### [facility] [address] [place] [address] Dr. Loyd Coppola IG % 0.4 % Normal 0.0-0.5 [facility] Comment on above: Performed By: #### C BC #### [facility] [address] [place] [address] Dr. Loyd Coppola LYMPH # 1.4 103/ul Normal 1.2-3.8 [facility] Comment on above: Performed By: #### C BC #### [facility] [address] [place] [address] Dr. Loyd Coppola Lymphocytes/100 WBC (Bld) 16.8 % Critically low 20.5-60.0 [facility] Comment on above: Performed By: #### C BC #### [facility] [address] [place] [address] Dr. Loyd Coppola MANUAL DIFF REQ NO Normal The [facility] Comment on above: Performed By: #### C BC #### [facility] [address] [place] [address] Dr. Loyd Coppola MCH (RBC) [Entitic mass] 32.1 pg Normal 26.7-34.0 [facility] Comment on above: Performed By: #### C BC #### [facility] [address] [place] [address] Dr. Loyd Coppola MCHC (RBC) [Mass/Vol] 36.2 g/dL Critically high 29.9-35.2 [facility] Comment on above: Performed By: #### C BC #### [facility] [address] [place] [address] Dr. Loyd Coppola MCV (RBC) [Entitic vol] 88.8 fL Normal 81.0-99.0 [facility] Comment on above: Performed By: #### C BC #### [facility] [address] [place] [address] Dr. Loyd Coppola MONO # 0.9 103/ul Critically high 0.3-0.8 [facility] Comment on above: Performed By: #### C BC #### [facility] [address] [place] [address] Dr. Loyd Coppola Monocytes/100 WBC (Bld) 10.5 % Normal 1.7-12.0 [facility] Comment on above: Performed By: #### C BC #### [facility] [address] [place] [address] Dr. Loyd Coppola NEUT # 6.0 103/ul Normal 1.4-6.5 [facility] Comment on above: Performed By: #### C BC #### [facility] [address] [place] [address] Dr. Loyd Coppola Neutrophils/100 WBC (Bld) 71.3 % Normal 43.0-75.0 [facility] Comment on above: Performed By: #### C BC #### [facility] [address] [place] [address] Dr. Loyd Coppola Platelet mean volume (Bld) [Entitic vol] 10.7 fL Normal 9.5-13.5 [facility] Comment on above: Performed By: #### C BC #### [facility] [address] [place] [address] Dr. Loyd Coppola PLT 174 103/ul Normal 150-450 [facility] Comment on above: Performed By: #### C BC #### [facility] [address] [place] [address] Dr. Loyd Coppola RBC 5.07 106/ul Normal 4.20-5.40 [facility] Comment on above: Performed By: #### C BC #### [facility] [address] [place] [address] Dr. Loyd Coppola WBC 8.4 103/ul Normal 4.0-11.0 [facility] Comment on above: Performed By: #### C BC #### [facility] [address] [place] [address] Dr. Loyd Coppola ER URINE PROFILEon 3 Bilirubin Ql (U) SMALL Abnormal NEGATIVE [facility] Comment on above: Performed By: #### E JUSTIN ZAVALETARO #### [facility] [address] [place] [address] Dr. Loyd Coppola Clarity (U) CLEAR Normal CLEAR [facility] Comment on above: Performed By: #### Suzi BORDENR, UMICRO #### [facility] [address] [place] [address] Dr. Loyd Coppola Color (U) YELLOW Normal YELLOW [facility] Comment on above: Performed By: #### E RUR, UMICRO #### [facility] [address] [place] [address] Dr. Loyd DIAS A micrscopic examination will be performed if indicated. Normal [facility] Comment on above: Performed By: #### Suzi ZAVALETA UMICRO #### [facility] [address] [place] [address] Dr. Loyd Coppola Glucose Ql (U) Negative Normal NEGATIVE [facility] Comment on above: Performed By: #### Suzi ZAVALETA UMICRO #### [facility] [address] [place] [address] Dr. Loyd Coppola Hemoglobin Ql (U) TRACE-INTACT Abnormal NEGATIVE [facility] Comment on above: Performed By: #### Suzi ZAVALETA UMICRO #### [facility] [address] [place] [address] Dr. Loyd Coppola Ketones Ql (U) 80 mg/dl Abnormal NEGATIVE [facility] Comment on above: Performed By: #### Suzi ZAVALETA UMICRO #### [facility] [address] [place] [address] Dr. Loyd Coppola LEUKOCYTES Negative Normal NEGATIVE [facility] Comment on above: Performed By: #### Suzi ZAVALETA, UMICRO #### [facility] [address] [place] [address] Dr. Loyd Coppola Nitrite Ql (U) Negative Normal NEGATIVE [facility] Comment on above: Performed By: #### Suzi ZAVALETA UMICRO #### [facility] [address] [place] [address] Dr. Loyd Coppola pH (U) 6.5 [pH] Normal 5-9 [facility] Comment on above: Performed By: #### Suzi ZAVALETA UMICRO #### [facility] [address] [place] [address] Dr. Loyd Coppola Protein (U) [Mass/Vol] 100 mg/dL Abnormal NEGATIVE/ TRACE [facility] Comment on above: Performed By: #### JUSTIN CHAVARRIARO #### [facility] [address] [place] [address] Dr. Loyd Coppola SPEC GRAVITY 1.030 Abnormal 1.005-<=1.025 [facility] Comment on above: Performed By: #### JUSTIN CHAVARRIARO #### [facility] [address] [place] [address] Dr. Loyd Coppola UR MICRO IND INDICATED Normal [facility] Comment on above: Performed By: #### JUSTIN CHAVARRIARO #### [facility] [address] [place] [address] Dr. Loyd Coppola Urobilinogen Qn (U) 0.2 {Taylor'U}/dL Normal 0.2 - 1. 0 [facility] Comment on above: Performed By: #### JUSTIN CHAVARRIARO #### [facility] [address] [place] [address] Dr. Loyd Coppola PROF 14(COMP METB)on 023 Albumin [Mass/Vol] 3.5 g/dL Normal 3.4-5.0 [facility] Comment on above: Performed By: #### C BC #### [facility] [address] [place] [address] Dr. Loyd Coppola Albumin/Globulin [Mass ratio] 0.9 {ratio} Normal [facility] Comment on above: Performed By: #### C BC #### [facility] [address] [place] [address] Dr. Loyd Coppola ALP [Catalytic activity/Vol] 61 U/L Normal 46-116 [facility] Comment on above: Performed By: #### C BC #### [facility] [address] [place] [address] Dr. Loyd Coppola ALT [Catalytic activity/Vol] 29 U/L Normal 14-59 [facility] Comment on above: Performed By: #### C BC #### [facility] [address] [address] [address] Loyd Coppola Anion gap [Moles/Vol] 12.0 mmol/L Normal [facility] Comment on above: Performed By: #### C BC #### [facility] [address] [address] [address] Loyd Coppola AST [Catalytic activity/Vol] 24 U/L Normal 15-37 [facility] Comment on above: Performed By: #### C BC #### [facility] [address] [address] [address] Loyd Coppola Bilirubin [Mass/Vol] 0.4 mg/dL Normal 0.2-1.0 [facility] Comment on above: Performed By: #### C BC #### [facility] [address] [place] [address] Dr. Loyd Coppola Calcium [Mass/Vol] 8.6 mg/dL Normal 8.5-10.1 [facility] Comment on above: Performed By: #### C BC #### [facility] [address] [address] [address] Loyd Coppola Chloride [Moles/Vol] 99 mmol/L Normal 98-107 [facility] Comment on above: Performed By: #### C BC #### [facility] [address] [place] [address] Dr. Loyd Coppola CO2 [Moles/Vol] 24.9 mmol/L Normal 21.0-32.0 [facility] Comment on above: Performed By: #### C BC #### [facility] [address] [address] [address] Loyd Coppola Creatinine [Mass/Vol] 0.55 mg/dL Normal 0.55-1.02 [facility] Comment on above: Performed By: #### C BC #### [facility] [address] [place] [address] Dr. Loyd Coppola EGFR-AF MONTSERRATIAN >60 Normal >=60 [facility] Comment on above: Performed By: #### C BC #### [facility] [address] [place] [address] Dr. Loyd Coppola EGFR-NON AF MONTSERRATIAN >60 Normal >=60 [facility] Comment on above: Performed By: #### C BC #### [facility] [address] [place] [address] Dr. Loyd Coppola Globulin (S) [Mass/Vol] 3.8 g/dL Normal [facility] Comment on above: Performed By: #### C BC #### [facility] [address] [place] [address] Dr. Loyd Coppola Glucose [Mass/Vol] 106 mg/dL Normal 74-106 [facility] Comment on above: Performed By: #### C BC #### [facility] [address] [place] [address] Dr. Loyd Coppola Potassium [Moles/Vol] 2.9 mmol/L Critically low 3.5-5.1 [facility] Comment on above: Performed By: #### C BC #### [facility] [address] [place] [address] Dr. Loyd Coppola Protein [Mass/Vol] 7.3 g/dL Normal 6.4-8.2 [facility] Comment on above: Performed By: #### C BC #### [facility] [address] [place] [address] Dr. Loyd Coppola Sodium [Moles/Vol] 135 mmol/L Critically low 136-145 [facility] Comment on above: Performed By: #### C BC #### [facility] [address] [place] [address] Dr. Loyd Coppola Urea nitrogen [Mass/Vol] 12.0 mg/dL Normal 7.0-18.0 [facility] Comment on above: Performed By: #### C BC #### [facility] [address] [place] [address] Dr. Loyd Coppola Urea nitrogen/Creatinine [Mass ratio] 21.8 mg/mg Normal [facility] Comment on above: Performed By: #### C BC #### [facility] [address] [place] [address] Dr. Loyd Coppola URINE MICROSCOPIC ONLYon BACTERIA MODERATE Abnormal NONE SEEN [facility] Comment on above: Performed By: #### E RUR, UMICRO #### [facility] [address] [place] [address] Dr. Loyd Coppola Bacteria identified Cx Nom (U) INDICATED Normal [facility] Comment on above: Performed By: #### E RUR, UMICRO #### [facility] [address] [place] [address] Dr. Loyd Coppola CAST NONE SEEN Normal NONE SEEN [facility] Comment on above: Performed By: #### E RUR, UMICRO #### [facility] [address] [place] [address] Dr. Loyd Coppola Crystals LM Nom (Urine sed) NONE SEEN Normal NONE SEEN [facility] Comment on above: Performed By: #### E RUR, UMICRO #### [facility] [address] [place] [address] Dr. Loyd Coppola Epithelial cells LM Ql (Urine sed) MANY Abnormal NONE SEEN /RARE [facility] Comment on above: Performed By: #### E RUR, UMICRO #### [facility] [address] [place] [address] Dr. Loyd Coppola MUCOUS SMALL Abnormal NONE SEEN [facility] Comment on above: Performed By: #### E RUR, UMICRO #### [facility] [address] [place] [address] Dr. Loyd Coppola RBC 0-2 Normal 0-2 [facility] Comment on above: Performed By: #### E RUR, UMICRO #### [facility] [address] [place] [address] Dr. Loyd Coppola WBC 2-5 Abnormal NONE SEEN [facility] Comment on above: Performed By: #### E RUR, UMICRO #### [facility] [address] [place] [address] Dr. Loyd Coppola US PREG TVon 01-23-2023 [...] by: YOMAIRA GONZALEZ Date: 2023-01-23 15:42 Normal [facility] PAP ACOG PANEL 2: 21 to 29on 09-19-2022 . . Normal [facility] Comment on above: Performed By: #### [id number] #### [facility] [address] [place] [address] Dr. Loyd Coppola Age Gdln ACOG Testing 21-29 [facility] Comment on above: Performed By: #### [id number] #### [facility] [address] [place] [address] Dr. Loyd Coppola DIAGNOSIS: Comment [facility] Comment on above: Result Comment: NEGA TIVE FOR INTRAEPITHELIAL LESION OR MALIGNANCY. Performed By: #### [id number] #### [facility] [address] [place] [address] Dr. Loyd Coppola Methodology: Comment [facility] Comment on above: Result Comment: This liquid based ThinPrep(R) pap test was screened with the use of an image guided system. Performed By: #### [id number] #### [facility] [address] [place] [address] Dr. Loyd Coppola Note: Comment [facility] Comment on above: Result Comment: The Pap smear is a screening test designed to aid in the detection of premalignant and malignant conditions of the uterine cervix. It is not a diagnostic procedure and should not be used as the sole means of detecting cervical cancer. Both false-positive and false-negative reports do occur. . Performed By: #### [id number] #### [facility] [address] [place] [address] Dr. Loyd Coppola Performed by: Comment Normal [facility] Comment on above: Result Comment: Celestina Velasco, Fire Extinguisher Sprinkler Inspector (ASCP) Performed By: #### [id number] #### [facility] [address] [place] [address] Dr. Loyd Coppola Reflex Criteria: Comment Normal [facility] Comment on above: Result Comment: The HPV DNA reflex criteria were not met with this specimen result therefore, no HPV testing was performed. . Performed By: #### [id number] #### [facility] [address] [address] [address] Loyd Coppola Specimen adequacy: Comment Normal [facility] Comment on above: Result Comment: Sati sfactory for evaluation. Endocervical and/or squamous metaplastic cells (endocervical component) are present. Performed By: #### [id number] #### [facility] [address] [place] [address] Dr. Loyd Coppola Vital Signs Date Time Vital Sign Value Performing Clinician Facility 12-28-2024 13:59-0500 Body mass index (BMI) [Ratio] 44.14 kg/m2 Thomas Sebastian DO Work Phone: [facility] 12-28-2024 13:59-0500 Body weight 127.82 kg Thomas Sebastian DO Work Phone: [facility] 12-28-2024 13:59-0500 Diastolic blood pressure 84 mm[Hg] Thomas Sebastian DO Work Phone: [facility] 12-28-2024 13:59-0500 Systolic blood pressure 126 mm[Hg] Thomas Sebastian DO Work Phone: [facility] 11-26-2024 09:44-0500 Body mass index (BMI) [Ratio] 43.95 kg/m2 [facility] Nurse [facility] 11-26-2024 09:44-0500 Body weight 127.28 kg [facility] Nurse [facility] 03-23-2023 03:40-0400 Body weight 122.[address] JULIANNE LAMBERT . [facility] Comment on above: Performed By: #### JESUS SANDOVAL #### [facility] [address] [address] [address] Loyd Coppola Encounters Encounter Date Encounter Type Care Provider Facility Start: 12-28-2024 End: 12-28-2024 Bamboo flowsheet Thomas Sebastian DO Work Phone: [facility] Start: 12-28-2024 End: 12-28-2024 Bamboo flowsheet Thomas Sebastian DO Work Phone: [facility] Start: 12-28-2024 End: 12-28-2024 flow sheet Thomas Sebastian DO Work Phone: [facility] Comment on above: Second trimester pre gnancy; 14 weeks gestation of ; Diabetes mellitus screening Start: 12-28-2024 End: 12-28-2024 ambulatory THOMAS SEBASTIAN Not Available Start: 11-27-2024 End: 11-27-2024 Clinisync Result Encounter Thomas Sebastian DO Work Phone: [facility] Unsolicited Start: 11-27-2024 End: 11-27-2024 Clinisync Result Encounter Thomas Sebastian DO Work Phone: [facility] Unsolicited Start: 11-26-2024 End: 11-26-2024 ambulatory THOMAS SEBASTIAN Not Available Start: 11-26-2024 End: 11-26-2024 Office outpatient visit 5 minutes [facility] Nurse [facility] Comment on above: GA: 10w0d Start: 05-05-2024 End: 05-05-2024 ambulatory THOMAS SEBASTIAN Not Available Start: 03-18-2024 End: 03-18-2024 ambulatory THOMAS SEBASTIAN Not Available Start: 04-09-[address] THOMAS [...] 09-11-[address] JULIANNE LAMBERT . Facility:[facility] Procedures Date Procedure Procedure Detail Performing Clinician Start: 12-28-2024 Urnls dip stick/tabl et rgnt non-auto w/o micrscp Thomas Cortes DO Work Phone: Start: 11-27-2024 ALL CBC WITH AUTO DIFF Thomas Cortes DO Work Phone: Plan of Treatment Date Care Activity Detail Author Start: 01-24-2025 End: 01-24-2025 Patient encounter procedure 01/24/2025 11:20 AM EDT Routine [facility] [address] [place] [address] Thomas Cortes, DO [address] [place] [address] [facility] Start: 12-28-2024 End: 12-28-2025 Measurement of glucose 1 hour after glucose challenge for glucose tolerance test Glucose tolerance, 1 hour Lab Routine Diabetes mellitus screening Expected: 12/28/2024 (Approximate), Expires: 12/28/2025 [facility] Work Phone: Comment on above: Expected: 12/28/2024 (Approximate), Expires: 12/28/2025 Start: 12-28-2024 End: 12-28-2024 Patient encounter procedure [facility] Comment on above: Arrived Start: 12-27-2024 End: 12-27-2024 Patient encounter procedure 12/27/2024 1:40 PM EST Routine [facility] [address] [place] [address] Thomas Cortes, DO [address] [facility] [place] [address] [facility] Start: 11-26-2024 End: 11-26-2025 ABO/Rh ABO/Rh Lab Routine Missed menses , unspecified gestational age Expected: 11/26/2024 (Approximate), Expires: 11/26/2025 [facility] Comment on above: Expected: 11/26/2024 (Approximate), Expires: 11/26/2025 Start: 11-26-2024 End: 11-26-2025 Blood type and Indirect antibody screen panel - Blood Type and screen Lab Routine Missed menses , unspecified gestational age Expected: 11/26/2024 (Approximate), Expires: 11/26/2025 [facility] Work Phone: Comment on above: Expected: 11/26/2024 (Approximate), Expires: 11/26/2025 Start: 11-26-2024 End: 11-26-2025 Drugs of abuse panel - Urine by Screen method Rapid drug screen, urine Lab Routine , unspecified gestational age Encounter for supervision of normal first in first trimester Expected: 11/26/2024 (Approximate), Expires: 11/26/2025 [facility] Comment on above: Expected: 11/26/2024 (Approximate), Expires: 11/26/2025 Bacteria identified in Urine by Culture Urine culture Microbiology Routine Missed menses Ordered: 11/26/2024 [facility] Comment on above: Ordered: 11/26/2024 CBC W Auto Different ial panel - Blood CBC and differential Lab Routine Missed menses , unspecified gestational age Ordered: 11/26/2024 [facility] Comment on above: Ordered: 11/26/2024 Hemoglobin A1c/Hemoglobin.total in Blood Hemoglobin A1c Lab Routine Missed menses , unspecified gestational age Ordered: 11/26/2024 [facility] Comment on above: Ordered: 11/26/2024 Hepatitis B virus surface Ag [Presence] in Serum or Plasma by Immunoassay Hepatitis B surface antigen Lab Routine Missed menses , unspecified gestational age Ordered: 11/26/2024 [facility] Comment on above: Ordered: 11/26/2024 Hepatitis C virus Ab [Presence] in Serum or Plasma by Immunoassay Hepatitis C antibody Lab Routine Missed menses , unspecified gestational age Ordered: 11/26/2024 [facility] Comment on above: Ordered: 11/26/2024 HIV-1/HIV-2 antigen/antibody combination immunoassay HIV-1 and HIV-2 antibodies Lab Routine Missed menses , unspecified gestational age Ordered: 11/26/2024 [facility] Comment on above: Ordered: 11/26/2024 Reagin Ab [Presence] in Serum by RPR RPR Lab Routine Missed menses , unspecified gestational age Ordered: 11/26/2024 [facility] Comment on above: Ordered: 11/26/2024 Rubella antibody, IgG Rubella an tibody, IgG Lab Routine Missed menses , unspecified gestational age Ordered: 11/26/2024 [facility] Comment on above: Ordered: 11/26/2024 Payers Date Payer Category Payer [facility] [id number] 1992 Unknown [id number]. 2.593 1992 Unknown [id number] 2.16.840.1.737111.3.579. 2.593 1992 Unknown [id number] 2.16.840.1.803703.3.579. 2.593 1992 Unknown [id number] 2.16.840.1.383993.3.579. 2.593 1992 Unknown [id number] 2.16.840.1.954055.3.579. 2.593 1992 Unknown [id number] 2.16.840.1.811606.3.579. 2.593 1992 Unknown [id number] 2.16.840.1.201628.3.579. 2.593 1992 Unknown [id number] 2.16.840.1.077294.3.579. 2.593 1992 Unknown [id number] 2.16.840.1.336596.3.579. 2.593 1992 Unknown [id number] 2.16.840.1.445868.3.579. 2.1259 1992 Unknown [id number] 2.16.840.1.266341.3.579. 2.1259 1992 Unknown [id number] 2.16.840.1.242698.3.579. 2.1259 1992 Unknown [id number] 2.16.840.1.939992.3.579. 2.1259 1959 Unknown [id number] Social History Date Type Detail Facility Start: 04-22-2023 Tobacco smoking stat [facility] Ex-smoker [facility] History of [...] [facility] History of Present illness Narrative 12-28-2024 Grace Arita LPN - 12/28/2024 1:40 PM EST Note Date & Type Note Facility 12-28-2024 History of Presen t illness Narrative Reason for Appointment: Patient ID: Charlene Purvis is a 34 y.o. female who presents for Routine Visit Patient presents today for Return OB appointment. MEDICATIONS Current Outpatient Medications Medication Instructions MV & Min w/FA-DHA ( Adult Gummy/DHA/FA) 0.4-25 MG chewable tablet 1 each, Oral, Daily ALLERGIES No Known Allergies PROBLEMS Active Ambulatory Problems Diagnosis Date Noted Benign [...] Morbid obesity with BMI of 40.0-44.9, adult ([facility]) HISTORY PAST MEDICAL HISTORY SOCIAL HISTORY Past Medical History: Diagnosis Date Chronic hypertension affecting Exposure to cat feces, sequela Former smoker Gestational diabetes Herpes exposure History of miscarriage Morbid obesity with BMI of 40.0-44.9, adult ([facility]) Social History Tobacco Use Smoking status: Former Types: Cigarettes Smokeless tobacco: Not on file Vaping Use Vaping status: Every Day Substance Use Topics Alcohol use: Never Drug use: Never FAMILY HISTORY Family History Problem Relation Name Age of Onset Diabetes Mother No Known Problems Sister No Known Problems Brother Other (mutiple gestation) Other Other (multiple gestation: family members in general) Other SURGICAL HISTORY Past Surgical History: Procedure Laterality Date CHOLECYSTECTOMY 10/2018 ELBOW SURGERY 1997 broken elbow NECK SURGERY to remove getachew - benign PAP SMEAR 09/11/2022 negative REVIEW OF SYSTEMS Review of Systems: Review of Systems Constitutional: Negative. HENT: Negative. Eyes: Negative. Respiratory: Negative. Cardiovascular: Negative. Gastrointestinal: Negative. Genitourinary: Negative. Musculoskeletal: Negative. Skin: Negative. Neurological: Negative. All other systems reviewed and are negative. Hematological: Negative. Endocrine: Negative. Allergic/Immunologic: Negative. OBJECTIVE Objective: Physical Exam Constitutional: Appearance: Normal appearance. She is well-developed. Cardiovascular: Rate and Rhythm: Normal rate and regular rhythm. Pulmonary: Effort: Pulmonary effort is normal. Breath sounds: Normal breath sounds. Abdominal: General: Bowel sounds are normal. There is no distension. Palpations: Abdomen is soft. Tenderness: There is no abdominal tenderness. There is no guarding or rebound. Musculoskeletal: General: No swelling. Normal range of motion. Right lower leg: No edema. Left lower leg: No edema. Neurological: Mental Status: She is alert and oriented to person, place, and time. Skin: General: Skin is warm and dry. Psychiatric: Mood and Affect: Mood normal. Behavior: Behavior normal. Vitals and nursing note reviewed. Exam conducted with a pet care worker present. Vitals: Estimated body mass index is 43.95 kg/m as calculated from the following: Height as of 09/09/23: 5' 7 . Weight as of 11/26/24: 280 lb 9.6 oz. BP: Patient's last menstrual period was 09/17/2024. ASSESSMENT & PLAN ICD-10-CM 1. Second trimester Z34.92 POCT urinalysis dipstick manually resulted 2. 14 weeks gestation of Z3A.14 New OB: Patient presents today for 1st time obstetrics appointment with provider. Patient is currently 14w4d . Patients history has been reviewed in great detail including any potential risks. Patient stated she currently has no complaints. Expectations throughout regarding labs, ultrasounds, and appointments have been discussed with the patient in detail. It was reiterated that the patient is to drink 6-8 glasses of water a day, eat 6 small meals a day, do not consume raw or undercooked meat, and stay away from [facility]. Patient has been consulted regarding any further do's and don'ts of . Patient voiced understanding and all questions and concerns were answered. Orders Placed This Encounter Procedures POCT urinalysis dipstick manually resulted Follow Up: Patient is to return in 4 weeks for routine OB appointment. Documented by Grace Arita LPN on behalf of: Thomas Cortes DO documented in this encounter [facility] History of Present illness Narrative 11-26-2024 Danay Ortega LPN - 11/26/2024 9:00 AM EST Note Date [...] Morbid obesity with BMI of 40.0-44.9, adult ([facility]) Family History Problem Relation Name Age of [...] Procedure Laterality Date CHOLECYSTECTOMY 10/2018 ELBOW SURGERY 1998 broken elbow NECK SURGERY to remove getachew [...] or undercooked meat, and stay away from [facility]. Patient has also been advised to not [...] concerns or questions. Nurse Visit Completed by: Danay Ortega LPN documented in this encounter [facility] Evaluation note Note Date & Type Note Facility Evaluation note Diagnosis Missed menses , unspecified gestational age Encounter for supervision of normal first in first trimester documented in this encounter [facility] Evaluation note Note Date & Type Note Facility Evaluation note Diagnosis Second trimester state, incidental 14 weeks gestation of Diabetes mellitus screening Screening for diabetes mellitus documented in this encounter [facility] Summary Purpose Family History No Family History Records FoundNo Family History Records Found Advance Directives No Advanced Directives Records FoundNo Advanced Directives Records Found Additional Source Comments INFORMATION SOURCE (unrecogn ized section and content) DATE CREATED AUTHOR 04/18/2023 [facility] DATE CREATED AUTHOR AUTHOR'S ORGANIZ ATION 12/30/2024 [facility] EPIC Reason for Visit (unrecogniz ed section and content) Reason Comments Amenorrhea Reason Comments Routine Visit FOR RECORDS PERTAINING TO PATIENTS WHO ARE [...] BE BASED ON THE PRIMARY CLINICAL RECORDS. [facility]. provides no warranty or guarantee of the accuracy or completeness of information in this document.
[2025-01-08 09:32] LABS: Basophils Percent Auto 0.3 % (0.2-2.0); Eosinophils Absolute Auto 0.3 10^3/uL (0.0-0.7); Eosinophils Percent Auto 3.7 % (0.9-7.0); Hematocrit 40.8 % (36.0-48.0); Hemoglobin 14.2 g/dL (12.0-16.0); Immature Granulocytes Abs Auto 0.04 10^3/uL (0.00-0.03); Immature Granulocytes Pct Auto 0.4 % (0.0-0.5); Lymphocytes Percent Auto 21.3 % (20.5-60.0); Mean Corpuscular HGB Conc 34.8 g/dL (29.9-35.2); Mean Corpuscular Hemoglobin 32.6 pg (26.7-34.0); Mean Corpuscular Volume 93.6 fL (81.0-99.0); Mean Platelet Volume 10.6 fL (9.5-13.5); Monocytes Absolute Auto 0.5 10^3/uL (0.3-0.8); Monocytes Percent Auto 5.1 % (1.7-12.0); Neutrophils Absolute Auto 6.4 10^3/uL (1.4-6.5); Neutrophils Percent Auto 69.2 % (43.0-75.0); Platelet Count 139 10^3/uL (150-450); Red Blood Count 4.36 10^6/uL (4.20-5.40); Red Cell Distribution Width 13.1 % (11.0-15.0); White Blood Count 9.2 10^3/uL (4.0-11.0)
[2025-01-08 10:16] LABS: Glucose 1 Hour 168 mg/dL (<130)
== END 2025-01-08 08:22 | disposition home or self-care (01) ==
LOC: LAB 08:22
PROVIDERS: Visit Provider Obstetrics & Gynecology
DX: Z13.1 Encounter for screening for diabetes mellitus (principal)
CPT/HCPCS: 36415; 82950; 85025

== ENCOUNTER 2025-01-22 08:13 | Outpatient (OUT) | payer BC, SELFPAY ==
--- OUTSIDE RECORDS SUMMARY | 2025-01-22 08:16 | XMS_ITS | CCD ---
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 Role Phone PETRA ., DR WHITAKER [...] Hypertension complicating ; childbirth and the puerperium (6 sources) Benign essential hypertension in obstetric context; [...] tolerance complicating ; childbirth; or the puerperium (6 sources) Gestational diabetes mellitus; Translations: [Gestational diabetes mellitus in , unspecified control] Onset: 04-18-2023 04-18-2023 Episodic Nausea and vomiting (10 sources) Nausea with vomiting, unspecified; Translations: [Nausea] Onset: 01-28-2023 Episodic Other female genital disorders (6 sources) H/O: premature delivery; Translations: [Personal history of pre-term labor] Onset: 02-24-2023 06-11-2023 Episodic Other injuries and conditions due to external causes (6 sources) Other specified effects of external causes, initial encounter; Translations: [Contact with and (suspected) exposure to other potentially hazardous substances] Onset: 04-18-2023 04-18-2023 Episodic Results Test Name Value Interpretation Reference Range Facility ALL CBC WITH AUTO DIFFon BASOPHILS ABSOLUTE AUTO 0 [facility] Basophils/100 WBC (Bld) 0.3 % 0.2 - 2.0 % [facility] Eosinophils/100 WBC (Bld) 3.7 % 0.9 - 7.0 % [facility] Erythrocyte distribution width (RBC) [Ratio] 13.1 % 11.0 - 15.0 % [facility] Hematocrit (Bld) [Volume fraction] 40.8 % 36.0 - 48.0 % [facility] Hemoglobin (Bld) [Mass/Vol] 14.2 g/dL 12.0 - 16.0 g/dL [facility] IMMATURE GRANULOCYTES ABS AUTO 0.[address] [facility] Immature granulocytes/100 WBC (Bld) 0.4 % 0.0 - 0.5 % [facility] Interpretation and review of laboratory results Abnormal [facility] LYMPHOCYTES ABSOLUTE AUTO 2 [facility] Lymphocytes/100 WBC (Bld) 21.3 % 20.5 - 60.0 % [facility] MCH (RBC) [Entitic mass] 32.6 pg 26.7 - 34.[address] [facility] MCHC (RBC) [Mass/Vol] 34.8 g/dL 29.9 - 35.2 g/dL [facility] MCV (RBC) [Entitic vol] 93.6 fL 81.0 - 99.[address] [facility] MONOCYTES ABSOLUTE AUTO 0.5 [facility] Monocytes/100 WBC (Bld) 5.1 % 1.7 - 12.0 % [facility] NEUTROPHILS ABSOLUTE AUTO 6.4 [facility] Neutrophils/100 WBC (Bld) 69.2 % 43.0 - 75.0 % [facility] Platelet mean volume (Bld) [Entitic vol] 10.6 fL 9.5 - 13.5 fL [facility] EO # 0.3 [facility] PLT 139 Low [facility] RBC 4.36 [facility] WBC 9.2 [facility] Urinalysis macro (dipstick) panel (U)on 12-28-2024 Bilirubin, UA Negative Negative - 4(70) +++ mg/dL [facility] Blood, UA Negative Negative - 50 Eliceo/mcL [facility] Clarity, UA Clear [facility] Color, UA Yellow [facility] Glucose, UA Positive Negative - 2000(110) ++++ mg/dL [facility] Comment on above: 250mg/dL Interpretation and review of laboratory results Abnormal [facility] Ketones, UA Negative Negative - 160(16) ++++ mg/dL [facility] Leukocytes, UA Trace Negative - 500+++ Danielle/mcL [facility] Nitrite, UA Negative Negative - Positive [facility] pH, UA 6 5 - 9 [facility] Protein, UA Positive Negative - 2000(20) ++++ mg/dL [facility] Comment on above: 30mg/dL Spec Grav, UA 1.03 1 - 1.03 [facility] Urobilinogen, UA 0.2 0.2 - 12 mg/dL [facility] ALL CBC WITH AUTO DIFFon BASOPHILS ABSOLUTE AUTO 0 [facility] Basophils/100 WBC (Bld) 0.3 % 0.2 - 2.0 % [facility] Eosinophils/100 WBC (Bld) 4.4 % 0.9 - 7.0 % [facility] Erythrocyte distribution width (RBC) [Ratio] 12 % 11.0 - 15.0 % [facility] Hematocrit (Bld) [Volume fraction] 44.2 % 36.0 - 48.0 % [facility] Hemoglobin (Bld) [Mass/Vol] 15.2 g/dL 12.0 - 16.0 g/dL [facility] IMMATURE GRANULOCYTES ABS AUTO 0.03 [facility] Immature granulocytes/100 WBC (Bld) 0.3 % 0.0 - 0.5 % [facility] LYMPHOCYTES ABSOLUTE AUTO 2.1 [facility] Lymphocytes/100 WBC (Bld) 24.6 % 20.5 - 60.0 % [facility] MCH (RBC) [Entitic mass] 31.7 pg 26.7 - 34.[address] [facility] MCHC (RBC) [Mass/Vol] 34.4 g/dL 29.9 - 35.2 g/dL [facility] MCV (RBC) [Entitic vol] 92.1 fL 81.0 - 99.[address] [facility] MONOCYTES ABSOLUTE AUTO 0.6 [facility] Monocytes/100 WBC (Bld) 6.9 % 1.7 - 12.0 % [facility] NEUTROPHILS ABSOLUTE AUTO 5.5 [facility] Neutrophils/100 WBC (Bld) 63.5 % 43.0 - 75.0 % [facility] Platelet mean volume (Bld) [Entitic vol] 9.9 fL 9.5 - 13.[address] [facility] TBH EO # 0.4 [facility] PLT 209 [facility] TB RBC 4.8 [facility] WBC 8.7 [facility] GTT 3 HR PREGon 03-29-2023 Glucose [Mass/Vol] 107 mg/dL Critically high 74-106 T [facility] Comment on above: Performed By: #### G TT3P #### [facility] [address] [address] [address] Loyd Coppola Glucose [Mass/Vol] 203 mg/dL Normal [facility] Comment on above: Performed By: #### G TT3P #### [facility] [address] [address] [address] Loyd Coppola Glucose [Mass/Vol] 191 mg/dL Normal [facility] Comment on above: Performed By: #### G TT3P #### [facility] [address] [address] [address] Loyd Coppola Glucose [Mass/Vol] 121 mg/dL Normal [facility] Comment on above: Performed By: #### G TT3P #### [facility] [address] [address] [address] Loyd Coppola AFP MATERNAL FOR SPINA BIFID Aon 03-23-2023 AFP MoM 0.70 Normal [facility] Comment on above: Performed By: #### Suzi ZAVALETA UMICRO #### [facility] [address] [address] [address] Loyd Coppola AFP Value 18.1 ng/mL Normal [facility] Comment on above: Performed By: #### Suzi ZAVALETA UMICRO #### [facility] [address] [address] [address] Loyd Coppola AFP, Serum for Spina Bifida Report Normal [facility] Comment on above: Performed By: #### Suzi ZAVALETA UMICRO #### [facility] [address] [address] [address] Loyd Coppola Comment Comment Normal [facility] Comment on above: Result Comment: Eboni Shah, Ph.D., [facility] Director . References: Available Upon Request. . Multiples Of Median Cutoffs For AFP Elevations Steiner 2.5 Black 2.8 IDD 2.0 Twins 4.5 Abbreviation Definitions IDD - Insulin Dep Diabetes OSBR - Open Spina Bifida Risk . For further inquiries contact [facility] at [phone]. . This test was developed and its performance characteristics determined by [employer]. It has not been cleared or approved by the Food and Drug Administration. Performed By: #### JUSTIN CHAVARRIARO #### [facility] [address] [address] [address] Loyd Kohli Age Collection Date 16.4 weeks Normal [facility] Comment on above: Performed By: #### JUSTIN CHAVARRIARO #### [facility] [address] [address] [address] Loyd Coppola Gestat, Age Based on As provided Normal [facility] Comment on above: Result Comment: Reca lculations are not recommended when gestational dating by LMP and ultrasound are within 10 days. Performed By: #### JUSTIN CHAVARRIARO #### [facility] [address] [address] [address] Loyd Coppola Insulin Dep Diabetes No Normal [facility] Comment on above: Performed By: #### JUSTIN CHAVARRIARO #### [facility] [address] [place] [address] Dr. Loyd Coppola Interpretation Comment Normal [facility] Comment on above: Result Comment: Inte rpretation: [...] Customer Services to discuss available options. The [employer] recommends amniocentesis be offered to women age 35 and older. Performed By: #### JUSTIN CHAVARRIARO #### [facility] [address] [place] [address] Dr. Loyd Coppola [age] Normal [facility] Comment on above: Performed By: #### JUSTIN CHAVARRIARO #### [facility] [address] [place] [address] Dr. Loyd Coppola Multiple Gestation No Normal [facility] Comment on above: Performed By: #### JUSTIN CHAVARRIARO #### [facility] [address] [place] [address] Dr. Loyd Coppola [place] [address] Normal [facility] Comment on above: Performed By: #### MORGAN CHAVARRIAICRO #### [facility] [address] [place] [address] Dr. Loyd Coppola PDF . Normal [facility] Comment on above: Performed By: #### MORGAN CHAVARRIAICRO #### [facility] [address] [place] [address] Dr. Loyd Coppola Race Normal [facility] Comment on above: Performed By: #### MORGAN CHAVARRIAICRO #### [facility] [address] [place] [address] Dr. Loyd Coppola Test Results: Negative Normal [facility] Comment on above: Performed By: #### Suzi ZAVALETA UMICRO #### [facility] [address] [address] [address] Loyd Coppola GLUCOSE - 1HRon 03-21-2023 Glucose [Mass/Vol] 165 mg/dL Critically high 74-[address] [facility] Comment on above: Performed By: #### G LU1HR #### [facility] [address] [address] [address] Loyd oCppola PAP ACOG PANEL 2: 30 to 65on 02-19-2023 . . Normal [facility] Comment on above: Result Comment: Perf ormed at: WB Performed By: #### E MEGHANN, UMICRO #### [facility] [address] [address] [address] Loyd Coppola Age Gdln ACOG Testing 30-65 [facility] Comment on above: Performed By: #### E MEGHANN, UMICRO #### [facility] [address] [place] [address] Dr. Loyd Coppola DIAGNOSIS: Comment Normal [facility] Comment on above: Result Comment: NEGA TIVE FOR INTRAEPITHELIAL LESION OR MALIGNANCY. Performed at: WB Performed By: #### Suzi ZAVALETA, UMICRO #### [facility] [address] [address] [address] Loyd Coppola HPV Aptima Negative Normal Negative [facility] Comment on above: Result Comment: This nucleic acid amplification test detects fourteen high-risk HPV types (16,18,31,33,35,39,45,51,52,56,58,59,66,68) without differentiation. Performed at: =G Performed By: #### E SUHAR, UMICRO #### [facility] [address] [address] [address] Loyd Coppola HPV Genotype Reflex Comment Normal [facility] Comment on above: Result Comment: Crit eria not met, HPV Genotype not performed. Performed at: WB Performed By: #### E RUR, UMICRO #### [facility] [address] [place] [address] Dr. Loyd Coppola Methodology: Comment Normal [facility] Comment on above: Result Comment: This liquid based ThinPrep(R) pap test was screened with the use of an image guided system. Performed at: WB Performed By: #### E RUR, UMICRO #### [facility] [address] [place] [address] Dr. Loyd Coppola Note: Comment Normal [facility] Comment on above: Result Comment: [...] Performed By: #### E RUR, UMICRO #### [facility] [address] [place] [address] Dr. Loyd Coppola Performed by: Comment Normal [facility] Comment on above: Result Comment: Lidya Kirkpatrick, Contract Officer (ASCP) Performed at: WB Performed By: #### E MEGHANN, UMICRO #### [facility] [address] [place] [address] Dr. Loyd Coppola Specimen adequacy: Comment Normal [facility] Comment on above: Result Comment: Sati sfactory for evaluation. No endocervical component is identified. Performed at: WB Performed By: #### E MEGHANN, UMICRO #### [facility] [address] [place] [address] Dr. Loyd Coppola US PREG CERVICAL LENGTHon [...] by: YOMAIRA GONZALEZ Date: 2023-02-18 15:51 Normal [facility] CHLAMYDIA/GONOCOCCUS ANTONELLA (SW AB/URINE/PAPon 02-15-2023 Chlamydia trachomatis, ANTONELLA Negative Normal Negative [facility] Comment on above: Performed By: #### C T/NGNA #### [facility] [address] [address] [address] Loyd Coppola Neisseria gonorrhoeae, ANTONELLA Negative Normal Negative [facility] Comment on above: Performed By: #### C T/NGNA #### [facility] [address] [address] [address] Loyd Coppola VAGINITIS/VAGINOSIS DNA PROB Vineet 02-15-2023 Leigha species Negative Normal Negative [facility] Comment on above: Performed By: #### C BC #### [facility] [address] [address] [address] Loyd Coppola Gardnerella vaginalis Negative Normal Negative [facility] Comment on above: Performed By: #### C BC #### [facility] [address] [place] [address] Dr. Loyd Coppola Trichomonas vaginalis Negative Normal Negative [facility] Comment on above: Performed By: #### C BC #### [facility] [address] [place] [address] Dr. Loyd Coppola HEP B SURFACE ANTIGEN SCREEN on 02-01-2023 HBsAg Screen Negative Normal Negative [facility] Comment on above: Performed By: #### H BSANS #### [facility] [address] [place] [address] Dr. Loyd Coppola HEPATITIS C VIRUS AB W/ REFL EX QUANTon 02-01-2023 HCV AB Non-Reactive Normal Non Reactive [facility] Comment on above: Performed By: #### C BC #### [facility] [address] [place] [address] Dr. Loyd Coppola Interpretation: Comment Normal [facility] Comment on above: Result Comment: Not infected with HCV unless early or acute infection is suspected (which may be delayed in an immunocompromised individual), or other evidence exists to indicate HCV infection. Performed By: #### C BC #### [facility] [address] [place] [address] Dr. Loyd Coppola HIV 1 AND 2 WITH REFLEXon HIV Screen 4th Generation wRfx Non-Reactive Normal Non Reactive [facility] Comment on above: Result Comment: HIV Negative HIV-1/HIV-2 antibodies and HIV-1 p24 antigen were NOT detected. There is no laboratory evidence of HIV infection. Performed By: #### C BC #### [facility] [address] [place] [address] Dr. Loyd Coppola RPR QUANTon 02-01-2023 Rapid Plasma Reagin, Quant Non-Reactive Normal NonRea<1:[address] [facility] Comment on above: Result Comment: Plea se Note: This test does not meet current guidelines for screening and diagnosis of syphilis. This test is intended for following treatment response in patients being treated for syphilis infection. To screen for syphilis infection, a reflex cascade that includes both RPR and a treponema-specific assay should be utilized, such as Treponema pallidum (Syphilis) Screening Stephens (339768) or Rapid Plasma Reagin (RPR) Test With Reflex to Quantitative RPR and Confirmatory Treponema pallidum Antibodies (529096). Performed By: #### JESUS CHAVARRIA #### [facility] [address] [place] [address] Dr. Loyd Coppola RUBELLA AB IGGon 02-01-2023 Rubella Antibodies, IgG 1.08 index Normal Immune >0.[address] [facility] Comment on above: Result Comment: Non- immune <0.90 Equivocal 0.90 - 0.99 Immune >0.99 Performed By: #### C BC #### [facility] [address] [place] [address] Dr. Loyd Coppola BOX TEST SENT OUTon 02-01-20 23 SENT TO REF LAB 01/31/23 Normal [facility] Comment on above: Performed By: #### JESUS CHAVARRIA #### [facility] [address] [place] [address] Dr. Loyd Coppola CBC AUTO DIFFon 01-31-2023 BASO # 0.0 103/ul Normal 0.0-0.1 [facility] Comment on above: Performed By: #### C BC #### [facility] [address] [place] [address] Dr. Loyd Coppola Basophils/100 WBC (Bld) 0.2 % Normal 0.2-2.0 [facility] Comment on above: Performed By: #### C BC #### [facility] [address] [place] [address] Dr. Loyd Coppola EO # 0.1 103/ul Normal 0.0-0.7 [facility] Comment on above: Performed By: #### C BC #### [facility] [address] [place] [address] Dr. Loyd Coppola Eosinophils/100 WBC (Bld) 1.5 % Normal 0.9-7.0 [facility] Comment on above: Performed By: #### C BC #### [facility] [address] [place] [address] Dr. Loyd Coppola Erythrocyte distribution width (RBC) [Ratio] 12.3 % Normal 11.0-15.0 [facility] Comment on above: Performed By: #### C BC #### [facility] [address] [place] [address] Dr. Loyd Coppola Hematocrit (Bld) [Volume fraction] 39.3 % Normal 36.0-48.0 [facility] Comment on above: Performed By: #### C BC #### [facility] [address] [place] [address] Dr. Loyd Coppola Hemoglobin (Bld) [Mass/Vol] 14.3 g/dL Normal 12.0-16.0 [facility] Comment on above: Performed By: #### C BC #### [facility] [address] [place] [address] Dr. Loyd Coppola IG # 0.03 10e3/ul Normal 0.00-0.03 [facility] Comment on above: Performed By: #### C BC #### [facility] [address] [place] [address] Dr. Loyd Coppola IG % 0.3 % Normal 0.0-0.5 [facility] Comment on above: Performed By: #### C BC #### [facility] [address] [place] [address] Dr. Loyd Coppola LYMPH # 2.3 103/ul Normal 1.2-3.8 [facility] Comment on above: Performed By: #### C BC #### [facility] [address] [place] [address] Dr. Loyd Coppola Lymphocytes/100 WBC (Bld) 24.8 % Normal 20.5-60.0 [facility] Comment on above: Performed By: #### C BC #### [facility] [address] [place] [address] Dr. Loyd Coppola MANUAL DIFF REQ NO Normal [facility] Comment on above: Performed By: #### C BC #### [facility] [address] [place] [address] Dr. Loyd Coppola MCH (RBC) [Entitic mass] 32.6 pg Normal 26.7-34.0 [facility] Comment on above: Performed By: #### C BC #### [facility] [address] [place] [address] Dr. Loyd Coppola MCHC (RBC) [Mass/Vol] 36.4 g/dL Critically high 29.9-35.2 [facility] Comment on above: Performed By: #### C BC #### [facility] [address] [place] [address] Dr. Loyd Coppola MCV (RBC) [Entitic vol] 89.7 fL Normal 81.0-99.0 [facility] Comment on above: Performed By: #### C BC #### [facility] [address] [place] [address] Dr. Loyd Coppola MONO # 0.5 103/ul Normal 0.3-0.8 [facility] Comment on above: Performed By: #### C BC #### [facility] [address] [place] [address] Dr. Loyd Coppola Monocytes/100 WBC (Bld) 5.2 % Normal 1.7-12.[address] [facility] Comment on above: Performed By: #### C BC #### [facility] [address] [place] [address] Dr. Loyd Coppola NEUT # 6.4 103/ul Normal 1.4-6.[address] [facility] Comment on above: Performed By: #### C BC #### [facility] [address] [address] [address] Loyd Coppola Neutrophils/100 WBC (Bld) 68.0 % Normal 43.0-75.0 [facility] Comment on above: Performed By: #### C BC #### [facility] [address] [address] [address] Loyd Coppola Platelet mean volume (Bld) [Entitic vol] 10.5 fL Normal 9.5-13.5 [facility] Comment on above: Performed By: #### C BC #### [facility] [address] [place] [address] Dr. Loyd Coppola PLT 171 103/ul Normal 150-450 [facility] Comment on above: Performed By: #### C BC #### [facility] [address] [place] [address] Dr. Loyd Coppola RBC 4.38 106/ul Normal 4.20-5.[address] [facility] Comment on above: Performed By: #### C BC #### [facility] [address] [address] [address] Loyd Coppola WBC 9.4 103/ul Normal 4.0-11.[address] [facility] Comment on above: Performed By: #### C BC #### [facility] [address] [place] [address] Dr. Loyd Coppola CULTURE URINEon 01-31-2023 CULTURE URINE Culture Observations : LIGHT GROWTH OF MIXED GENITAL CASSIDY. NO POTENTIAL PATHOGENS SEEN. Normal [facility] Comment on above: Performed By: #### C BC #### [facility] [address] [place] [address] Dr. Loyd Coppola CULTURE URINE Isolate 1 [...] F Trimethoprim/Sulfameth oxazole <=20 S F Normal [facility] Comment on above: Performed By: #### C BC #### [facility] [address] [place] [address] Dr. Loyd Coppola GLYCOHEMOGLOBIN A1Con 2022 ADA RECOMMENDATION SEE BELOW Normal [facility] Comment on above: Result Comment: ADA RECOMMENDED LIMIT 4.0 - 6.0 ADA THERAPEUTIC TARGET < 7.0 ACTION SUGGESTED > 7.0 Performed By: #### A 1C #### [facility] [address] [place] [address] Dr. Loyd Coppola Glucose [Mass/Vol] 100 mg/dL Normal [facility] Comment on above: Performed By: #### A 1C #### [facility] [address] [place] [address] Dr. Loyd Coppola HbA1c (Bld) [Mass fraction] 5.1 % Normal 4.5-6.2 [facility] Comment on above: Performed By: #### A 1C #### [facility] [address] [place] [address] Dr. Loyd Coppola TSHon 01-31-2023 TSH 0.495 uIU/mL Normal 0.358-3.740 [facility] Comment on above: Performed By: #### JESUS CHAVARRIA #### [facility] [address] [place] [address] Dr. Loyd Coppola TYPE AND SCREENon 01-31-2023 TYPE AND SCREEN Negative Normal [facility] Comment on above: Performed By: #### C BC #### [facility] [address] [place] [address] Dr. Loyd Coppola CBC AUTO DIFFon 01-28-2023 BASO # 0.0 103/ul Normal 0.0-0.1 [facility] Comment on above: Performed By: #### C BC #### [facility] [address] [place] [address] Dr. Loyd Coppola Basophils/100 WBC (Bld) 0.2 % Normal 0.2-2.0 [facility] Comment on above: Performed By: #### C BC #### [facility] [address] [place] [address] Dr. Loyd Coppola EO # 0.1 103/ul Normal 0.0-0.[address] [facility] Comment on above: Performed By: #### C BC #### [facility] [address] [place] [address] Dr. Loyd Coppola Eosinophils/100 WBC (Bld) 0.8 % Critically low 0.9-7.[address] [facility] Comment on above: Performed By: #### C BC #### [facility] [address] [place] [address] Dr. Loyd Coppola Erythrocyte distribution width (RBC) [Ratio] 12.3 % Normal 11.0-15.0 [facility] Comment on above: Performed By: #### C BC #### [facility] [address] [place] [address] Dr. Loyd Coppola Hematocrit (Bld) [Volume fraction] 45.0 % Normal 36.0-48.0 [facility] Comment on above: Performed By: #### C BC #### [facility] [facility] [address] [place] [address] Dr. Loyd Coppola Hemoglobin (Bld) [Mass/Vol] 16.3 g/dL Critically high 12.0-16.[address] [facility] Comment on above: Performed By: #### C BC #### [facility] [address] [place] [address] Dr. Loyd Coppola IG # 0.03 10e3/ul Normal 0.00-0.[address] [facility] Comment on above: Performed By: #### C BC #### [facility] [address] [place] [address] Dr. Loyd Coppola IG % 0.4 % Normal 0.0-0.[address] [facility] Comment on above: Performed By: #### C BC #### [facility] [address] [place] [address] Dr. Loyd Coppola LYMPH # 1.4 103/ul Normal 1.2-3.8 [facility] Comment on above: Performed By: #### C BC #### [facility] [address] [place] [address] Dr. Loyd Coppola Lymphocytes/100 WBC (Bld) 16.8 % Critically low 20.5-60.0 [facility] Comment on above: Performed By: #### C BC #### [facility] [address] [place] [address] Dr. Loyd Coppola MANUAL DIFF REQ NO Normal [facility] Comment on above: Performed By: #### C BC #### [facility] [address] [place] [address] Dr. Loyd Coppola MCH (RBC) [Entitic mass] 32.1 pg Normal 26.7-34.0 [facility] Comment on above: Performed By: #### C BC #### [facility] [address] [place] [address] Dr. Loyd Coppola MCHC (RBC) [Mass/Vol] 36.2 g/dL Critically high 29.9-35.2 [facility] Comment on above: Performed By: #### C BC #### [facility] [address] [place] [address] Dr. Loyd Coppola MCV (RBC) [Entitic vol] 88.8 fL Normal 81.0-99.0 [facility] Comment on above: Performed By: #### C BC #### [facility] [address] [place] [address] Dr. Loyd Coppola MONO # 0.9 103/ul Critically high 0.3-0.8 [facility] Comment on above: Performed By: #### C BC #### [facility] [address] [place] [address] Dr. Loyd Coppola Monocytes/100 WBC (Bld) 10.5 % Normal 1.7-12.[address] [facility] Comment on above: Performed By: #### C BC #### [facility] [address] [place] [address] Dr. Loyd Coppola NEUT # 6.0 103/ul Normal 1.4-6.5 [facility] Comment on above: Performed By: #### C BC #### [facility] [address] [place] [address] Dr. Loyd Coppola Neutrophils/100 WBC (Bld) 71.3 % Normal 43.0-75.0 [facility] Comment on above: Performed By: #### C BC #### [facility] [address] [place] [address] Dr. Loyd Coppola Platelet mean volume (Bld) [Entitic vol] 10.7 fL Normal 9.5-13.[address] [facility] Comment on above: Performed By: #### C BC #### [facility] [address] [place] [address] Dr. Loyd Coppola PLT 174 103/ul Normal 150-[address] [facility] Comment on above: Performed By: #### C BC #### [facility] [address] [place] [address] Dr. Loyd Coppola RBC 5.07 106/ul Normal 4.20-5.[address] [facility] Comment on above: Performed By: #### C BC #### [facility] [address] [place] [address] Dr. Loyd Coppola WBC 8.4 103/ul Normal 4.0-11.0 [facility] Comment on above: Performed By: #### C BC #### [facility] [address] [place] [address] Dr. Loyd Coppola ER URINE PROFILEon 3 Bilirubin Ql (U) SMALL Abnormal NEGATIVE [facility] Comment on above: Performed By: #### MORGAN CHAVARRIAICRO #### [facility] [address] [place] [address] Dr. Loyd Coppola Clarity (U) CLEAR Normal CLEAR [facility] Comment on above: Performed By: #### Suzi ZAVALETA UMICRO #### [facility] [address] [place] [address] Dr. Loyd Coppola Color (U) YELLOW Normal YELLOW [facility] Comment on above: Performed By: #### Suzi ZAVALETA UMICRO #### [facility] [address] [place] [address] Dr. Loyd DIAS A micrscopic examination will be performed if indicated. Normal [facility] Comment on above: Performed By: #### MORGAN CHAVARRIAICRO #### [facility] [address] [place] [address] Dr. Loyd Coppola Glucose Ql (U) Negative Normal NEGATIVE [facility] Comment on above: Performed By: #### Suzi ZAVALETA UMICRO #### [facility] [address] [place] [address] Dr. Loyd Coppola Hemoglobin Ql (U) TRACE-INTACT Abnormal NEGATIVE [facility] Comment on above: Performed By: #### Suzi ZAVALETA UMICRO #### [facility] [address] [place] [address] Dr. Loyd Coppola Ketones Ql (U) 80 mg/dl Abnormal NEGATIVE [facility] Comment on above: Performed By: #### Suzi ZAVALETA UMICRO #### [facility] [address] [place] [address] Dr. Loyd Coppola LEUKOCYTES Negative Normal NEGATIVE [facility] Comment on above: Performed By: #### Suzi ZAVALETA UMICRO #### [facility] [address] [place] [address] Dr. Loyd Coppola Nitrite Ql (U) Negative Normal NEGATIVE [facility] Comment on above: Performed By: #### MORGAN CHAVARRIAICRO #### [facility] [address] [place] [address] Dr. Loyd Coppola pH (U) 6.5 [pH] Normal 5-9 [facility] Comment on above: Performed By: #### Suzi ZAVALETA UMICRO #### [facility] [address] [place] [address] Dr. Loyd Coppola Protein (U) [Mass/Vol] 100 mg/dL Abnormal NEGATIVE/ TRACE [facility] Comment on above: Performed By: #### Suzi ZAVALETA UMICRO #### [facility] [address] [place] [address] Dr. Loyd Coppola SPEC GRAVITY 1.030 Abnormal 1.005-<=1.025 [facility] Comment on above: Performed By: #### JESUS CHAVARRIA #### [facility] [address] [place] [address] Dr. Loyd Coppola UR MICRO IND INDICATED Normal [facility] Comment on above: Performed By: #### JESUS CHAVARRIA #### [facility] [address] [place] [address] Dr. Loyd Coppola Urobilinogen Qn (U) 0.2 {Taylor'U}/dL Normal 0.2 - 1. [address] [facility] Comment on above: Performed By: #### JESUS CHAVARRIA #### [facility] [address] [place] [address] Dr. Loyd Coppola PROF 14(COMP METB)on 023 Albumin [Mass/Vol] 3.5 g/dL Normal 3.4-5.0 [facility] Comment on above: Performed By: #### C BC #### [facility] [address] [place] [address] Dr. Loyd Coppola Albumin/Globulin [Mass ratio] 0.9 {ratio} Normal [facility] Comment on above: Performed By: #### C BC #### [facility] [address] [place] [address] Dr. Loyd Coppola ALP [Catalytic activity/Vol] 61 U/L Normal 46-[address] [facility] Comment on above: Performed By: #### C BC #### [facility] [address] [place] [address] Dr. Loyd Coppola ALT [Catalytic activity/Vol] 29 U/L Normal 14-[address] [facility] Comment on above: Performed By: #### C BC #### [facility] [address] [place] [address] Dr. Loyd Coppola Anion gap [Moles/Vol] 12.0 mmol/L Normal [facility] Comment on above: Performed By: #### C BC #### [facility] [address] [address] [address] Loyd Coppola AST [Catalytic activity/Vol] 24 U/L Normal 15-37 [facility] Comment on above: Performed By: #### C BC #### [facility] [address] [place] [address] Dr. Loyd Coppola Bilirubin [Mass/Vol] 0.4 mg/dL Normal 0.2-1.0 [facility] Comment on above: Performed By: #### C BC #### [facility] [address] [place] [address] Dr. Loyd Coppola Calcium [Mass/Vol] 8.6 mg/dL Normal 8.5-10.1 [facility] Comment on above: Performed By: #### C BC #### [facility] [address] [place] [address] Dr. Loyd Coppola Chloride [Moles/Vol] 99 mmol/L Normal 98-107 [facility] Comment on above: Performed By: #### C BC #### [facility] [address] [place] [address] Dr. Loyd Coppola CO2 [Moles/Vol] 24.9 mmol/L Normal 21.0-32.0 [facility] Comment on above: Performed By: #### C BC #### [facility] [address] [place] [address] Dr. Loyd Coppola Creatinine [Mass/Vol] 0.55 mg/dL Normal 0.55-1.02 [facility] Comment on above: Performed By: #### C BC #### [facility] [address] [place] [address] Dr. Loyd Coppola EGFR-AF SENEGALESE >60 Normal >=60 [facility] Comment on above: Performed By: #### C BC #### [facility] [address] [place] [address] Dr. Loyd Coppola EGFR-NON AF SENEGALESE >60 Normal >=60 [facility] Comment on above: Performed By: #### C BC #### [facility] [address] [place] [address] Dr. Loyd Coppola Globulin (S) [Mass/Vol] 3.8 g/dL Normal [facility] Comment on above: Performed By: #### C BC #### [facility] [address] [place] [address] Dr. Loyd Coppola Glucose [Mass/Vol] 106 mg/dL Normal 74-106 [facility] Comment on above: Performed By: #### C BC #### [facility] [address] [place] [address] Dr. Loyd Coppola Potassium [Moles/Vol] 2.9 mmol/L Critically low 3.5-5.1 [facility] Comment on above: Performed By: #### C BC #### [facility] [address] [place] [address] Dr. Loyd Coppola Protein [Mass/Vol] 7.3 g/dL Normal 6.4-8.2 [facility] Comment on above: Performed By: #### C BC #### [facility] [address] [place] [address] Dr. Loyd Coppola Sodium [Moles/Vol] 135 mmol/L Critically low 136-[address] [facility] Comment on above: Performed By: #### C BC #### [facility] [address] [place] [address] Dr. Loyd Coppola Urea nitrogen [Mass/Vol] 12.0 mg/dL Normal 7.0-18.0 [facility] Comment on above: Performed By: #### C BC #### [facility] [address] [place] [address] Dr. Loyd Coppola Urea nitrogen/Creatinine [Mass ratio] 21.8 mg/mg Normal [facility] Comment on above: Performed By: #### C BC #### [facility] [address] [place] [address] Dr. Loyd Coppola URINE MICROSCOPIC ONLYon BACTERIA MODERATE Abnormal NONE SEEN [facility] Comment on above: Performed By: #### E JESUS ZAVALETA #### [facility] [address] [place], [place] [id number] Dr. Loyd Coppola Bacteria identified Cx Nom (U) INDICATED Normal [facility] Comment on above: Performed By: #### E USHAR, UMICRO #### [facility] [address] [place] [address] Dr. Loyd Coppola CAST NONE SEEN Normal NONE SEEN [facility] Comment on above: Performed By: #### E RUR, UMICRO #### [facility] [address] [place] [address] Dr. Loyd Coppola Crystals LM Nom (Urine sed) NONE SEEN Normal NONE SEEN [facility] Comment on above: Performed By: #### E SUHAR, UMICRO #### [facility] [address] [place] [address] Dr. Loyd Coppola Epithelial cells LM Ql (Urine sed) MANY Abnormal NONE SEEN /RARE [facility] Comment on above: Performed By: #### Suzi ZAVALETA, UMICRO #### [facility] [address] [place] [address] Dr. Loyd Coppola MUCOUS SMALL Abnormal NONE SEEN [facility] Comment on above: Performed By: #### Suzi ZAVALETA, UMICRO #### [facility] [address] [place] [address] Dr. Loyd Coppola RBC 0-2 Normal 0-[address] [facility] Comment on above: Performed By: #### Suzi ZAVALETA, UMICRO #### [facility] [address] [place] [address] Dr. Loyd Coppola WBC 2-5 Abnormal NONE SEEN [facility] Comment on above: Performed By: #### Suzi ZAVALETA, UMICRO #### [facility] [address] [place] [address] Dr. Loyd Coppola US PREG TVon 01-23-2023 [...] authenticated by: YOMAIRA GONZALEZ Date: 2023-01-23 15:42 [facility] PAP ACOG PANEL 2: 21 to 29on 09-19-2022 . . Normal [facility] Comment on above: Performed By: #### [id number] #### [facility] [address] [place] [address] Dr. Loyd Coppola Age Gdln ACOG Testing 21-29 [facility] Comment on above: Performed By: #### [id number] #### [facility] [address] [place] [address] Dr. Loyd Coppola DIAGNOSIS: Comment [facility] Comment on above: Result Comment: NEGA TIVE FOR INTRAEPITHELIAL LESION OR MALIGNANCY. Performed By: #### [id number] #### [facility] [address] [place] [address] Dr. Loyd Coppola Methodology: Comment [facility] Comment on above: Result Comment: This liquid based ThinPrep(R) pap test was screened with the use of an image guided system. Performed By: #### [id number] #### [facility] [address] [place] [address] Dr. Loyd Coppola Note: Comment [facility] Comment on above: Result Comment: The Pap smear is a screening test designed to aid in the detection of premalignant and malignant conditions of the uterine cervix. It is not a diagnostic procedure and should not be used as the sole means of detecting cervical cancer. Both false-positive and false-negative reports do occur. . Performed By: #### [id number] #### [facility] [address] [place] [address] Dr. Loyd Coppola Performed by: Comment Normal [facility] Comment on above: Result Comment: Celestina Velasco, Contract Officer (ASCP) Performed By: #### [id number] #### [facility] [address] [place] [address] Dr. Loyd Coppola Reflex Criteria: Comment [facility] Comment on above: Result Comment: The HPV DNA reflex criteria were not met with this specimen result therefore, no HPV testing was performed. . Performed By: #### [id number] #### [facility] [address] [address] [address] Loyd Coppola Specimen adequacy: Comment Normal [facility] Comment on above: Result Comment: Sati sfactory for evaluation. Endocervical and/or squamous metaplastic cells (endocervical component) are present. Performed By: #### [id number] #### [facility] [address] [id number] Loyd Coppola Vital Signs Date Time Vital Sign Value Performing Clinician Facility 12-28-2024 13:59-0500 Body mass index (BMI) [Ratio] 44.14 kg/m2 Thomas Sebastian DO Work Phone: [facility] 12-28-2024 13:59-0500 Body weight 127.82 kg Thomas Sebastian DO Work Phone: [facility] 12-28-2024 13:59-0500 Diastolic blood pressure 84 mm[Hg] Thomas Sebastian DO Work Phone: [facility] 12-28-2024 13:59-0500 Systolic blood pressure 126 mm[Hg] Tohmas Sebastian DO Work Phone: [facility] 11-26-2024 09:44-0500 Body mass index (BMI) [Ratio] 43.95 kg/m2 [facility] 11-26-2024 09:44-0500 Body weight 127.28 kg [facility] Nurse [facility] 03-23-2023 03:40-0400 Body weight 122.[address] JULIANNE LAMBERT . [facility] Comment on above: Performed By: #### JESUS SANDOVAL #### [facility] [address] [place], [place] [id number] Dr. Loyd Coppola Encounters Encounter Date Encounter Type Care Provider Facility Start: 01-08-2025 End: 01-08-2025 Clinisync Result Encounter Thomas Sebastian DO Work Phone: [facility] Unsolicited Start: 01-08-2025 End: 01-08-2025 Clinis[facility] Result Encounter Thomas Sebastian DO Work Phone: [facility] Unsolicited Start: 12-28-2024 End: 12-28-2024 Bamboo flowsheet Thomas [...] Date Procedure Procedure Detail Performing Clinician Start: 01-08-2025 ALL CBC WITH AUTO DIFF Thomas Sebasitan DO Work Phone: Start: 12-28-2024 Urnls dip stick/tabl et rgnt non-auto w/o micrscp Thomas Sebastian DO Work Phone: Start: 11-27-2024 ALL CBC WITH AUTO DIFF Thomas Sebastian DO Work Phone: Plan of Treatment Date Care Activity Detail Author Start: 01-24-2025 End: 01-24-2025 Patient encounter procedure 01/24/2025 11:20 AM EDT Routine [facility] [address] [address] Thomas Cortes, DO [address], [place] [address] [facility] Start: 12-28-2024 End: 12-28-2025 Measurement of glucose 1 hour after glucose challenge for glucose tolerance test Glucose tolerance, 1 hour Lab Routine Diabetes mellitus screening Expected: 12/28/2024 (Approximate), Expires: 12/28/2025 [facility] Work Phone: Comment on above: Expected: 12/28/2024 (Approximate), Expires: 12/28/2025 Start: 12-28-2024 End: 12-28-2024 Patient encounter procedure [facility] Comment on above: Arrived Start: 12-27-2024 End: 12-27-2024 Patient encounter procedure 12/27/2024 1:40 PM EST Routine [facility] [address] [place] [id number] Thomas Cortes DO [address] [place] [address] [facility] Start: 11-26-2024 End: 11-26-2025 ABO/Rh ABO/Rh Lab Routine Missed menses , unspecified gestational age Expected: 11/26/2024 (Approximate), Expires: 11/26/2025 [facility] Comment on above: Expected: 11/26/2024 (Approximate), Expires: 11/26/2025 Start: 11-26-2024 End: 11-26-2025 Blood type and Indirect antibody screen panel - Blood Type and screen Lab Routine Missed menses , unspecified gestational age Expected: 11/26/2024 (Approximate), Expires: 11/26/2025 [facility] Work Phone: Comment on above: Expected: 11/26/2024 (Approximate), Expires: 11/26/2025 Start: 11-26-2024 End: 11-26-2025 Drugs of abuse panel - Urine by Screen method Rapid drug screen, urine Lab Routine , unspecified gestational age Encounter for supervision of normal first in first trimester Expected: 11/26/2024 (Approximate), Expires: 11/26/2025 [facility] Comment on above: Expected: 11/26/2024 (Approximate), Expires: 11/26/2025 Bacteria identified in Urine by Culture Urine culture Microbiology Routine Missed menses Ordered: 11/26/2024 [facility] Comment on above: Ordered: 11/26/2024 CBC W Auto Different ial panel - Blood CBC and differential Lab Routine Missed menses , unspecified gestational age Ordered: 11/26/2024 [facility] Comment on above: Ordered: 11/26/2024 Hemoglobin A1c/Hemoglobin.total in Blood Hemoglobin A1c Lab Routine Missed menses , unspecified gestational age Ordered: 11/26/2024 [facility] Comment on above: Ordered: 11/26/2024 Hepatitis B virus surface Ag [Presence] in Serum or Plasma by Immunoassay Hepatitis B surface antigen Lab Routine Missed menses , unspecified gestational age Ordered: 11/26/2024 [facility] Comment on above: Ordered: 11/26/2024 Hepatitis C virus Ab [Presence] in Serum or Plasma by Immunoassay Hepatitis C antibody Lab Routine Missed menses , unspecified gestational age Ordered: 11/26/2024 [facility] Comment on above: Ordered: 11/26/2024 HIV-1/HIV-2 antigen/antibody combination immunoassay HIV-1 and HIV-2 antibodies Lab Routine Missed menses , unspecified gestational age Ordered: 11/26/2024 [facility] Comment on above: Ordered: 11/26/2024 Reagin Ab [Presence] in Serum by RPR RPR Lab Routine Missed menses , unspecified gestational age Ordered: 11/26/2024 [facility] Comment on above: Ordered: 11/26/2024 Rubella antibody, IgG Rubella an tibody, IgG Lab Routine Missed menses , unspecified gestational age Ordered: 11/26/2024 [facility] Comment on above: Ordered: 11/26/2024 Payers Date Payer Category Payer [facility] er [id number] 1992 Unknown [id number] 1992 Unknown [id number]. 2.593 1992 Unknown [id number] [id number]. 2.593 1992 Unknown [id number] 2.16.840.1.180248.3.579. 2.593 1992 Unknown [id number] 2.16.840.1.365499.3.579. 2.593 1992 Unknown [id number] 2.16.840.1.847156.3.579. 2.593 1992 Unknown [id number] 2.16.840.1.216443.3.579. 2.593 1992 Unknown [id number] 2.16.840.1.947955.3.579. 2.593 1992 Unknown [id number] 2.16.840.1.932991.3.579. 2.593 1992 Unknown [id number] 2.16.840.1.981878.3.579. 2.1259 1992 Unknown [id number] 2.16.840.1.260340.3.579. 2.1259 1992 Unknown [id number] 2.16.840.1.799503.3.579. 2.1259 1992 Unknown [id number] [id number]. 2.1259 1959 Unknown [id number] Social History Date Type Detail Facility Start: 04-22-2023 Tobacco smoking stat [facility] Ex-smoker [facility] History of tobacco use [...] Morbid obesity with BMI of 40.0-44.9, adult ([facility]) HISTORY PAST MEDICAL HISTORY SOCIAL HISTORY Past Medical History: Diagnosis Date Chronic hypertension affecting Exposure to cat feces, sequela Former smoker Gestational diabetes Herpes exposure History of miscarriage Morbid obesity with BMI of 40.0-44.9, adult ([facility]) Social History Tobacco Use Smoking status: Former [...] nursing note reviewed. Exam conducted with a maintenance mechanic engine present. Vitals: Estimated body mass index is [...] or undercooked meat, and stay away from [facility]. Patient has been consulted regarding any further [...] Morbid obesity with BMI of 40.0-44.9, adult ([facility]) Family History Problem Relation Name Age of [...] or undercooked meat, and stay away from [facility]. Patient has also been advised to not [...] [facility] DATE CREATED AUTHOR AUTHOR'S TIMOTEO ATION 12/30/2024 [facility] EPIC Reason for Visit (unrecogniz ed [...] BE BASED ON THE PRIMARY CLINICAL RECORDS. [employer] provides no warranty or guarantee of the accuracy or completeness of information in this document.
[2025-01-22 08:33] LABS: Glucose Fasting 142 mg/dL (<95)
[2025-01-22 09:51] LABS: Glucose 1 Hour 235 mg/dL (<180)
[2025-01-22 10:49] LABS: Glucose 2 Hour 214 mg/dL (<155)
[2025-01-22 11:52] LABS: Glucose 3 Hour 174 mg/dL (<140)
== END 2025-01-22 08:14 | disposition home or self-care (01) ==
LOC: LAB 08:13
PROVIDERS: Visit Provider Obstetrics & Gynecology
DX: R73.09 Other abnormal glucose (principal)
CPT/HCPCS: 36415; 82951; 82952

== ENCOUNTER 2025-02-07 11:18 | Outpatient (OUT) | payer BC, SELFPAY ==
--- OUTSIDE RECORDS SUMMARY | 2025-02-07 11:39 | XMS_ITS | CCD ---
Author Organization [facility] Care Team Providers Care Twist Packer Name Role Phone PETRA ., DR WHITAKER [...] Provider Unavailabl e SEBASTIAN, THOMAS Attending Unavailable THOMAS CORTES Attending Unavailable THOMAS CORTES Attending Unavailable THOMAS CORTES Attending Unavailable Medications [...] WITH AUTO DIFFon BASOPHILS ABSOLUTE AUTO 0 [facility] Basophils/100 WBC (Bld) 0.3 % 0.2 - 2.0 % [facility] Eosinophils/100 WBC (Bld) 3.7 % 0.9 - 7.0 % [facility] Erythrocyte distribution width (RBC) [Ratio] 13.1 % 11.0 - 15.0 % [facility] Hematocrit (Bld) [Volume fraction] 40.8 % 36.0 - 48.0 % [facility] Hemoglobin (Bld) [Mass/Vol] 14.2 g/dL 12.0 - 16.0 g/dL [facility] IMMATURE GRANULOCYTES ABS AUTO 0.04 High [facility] Immature granulocytes/100 WBC (Bld) 0.4 % 0.0 - 0.5 % [facility] Interpretation and review of laboratory results Abnormal [facility] LYMPHOCYTES ABSOLUTE AUTO 2 [facility] Lymphocytes/100 WBC (Bld) 21.3 % 20.5 - 60.0 % [facility] MCH (RBC) [Entitic mass] 32.6 pg 26.7 - 34.0 pg [facility] MCHC (RBC) [Mass/Vol] 34.8 g/dL 29.9 - 35.2 g/dL [facility] MCV (RBC) [Entitic vol] 93.6 fL 81.0 - 99.0 fL [facility] MONOCYTES ABSOLUTE AUTO 0.5 [facility] Monocytes/100 WBC (Bld) 5.1 % 1.7 - 12.0 % [facility] NEUTROPHILS ABSOLUTE AUTO 6.4 [facility] Neutrophils/100 WBC (Bld) 69.2 % 43.0 - 75.0 % [facility] Platelet mean volume (Bld) [Entitic vol] 10.6 fL 9.5 - 13.5 fL [facility] EO # 0.3 [facility] PLT 139 Low [facility] RBC 4.36 [facility] WBC 9.2 [facility] Urinalysis macro (dipstick) panel (U)on 12-28-2024 Bilirubin, UA Negative Negative - 4(70) +++ mg/dL [facility] Blood, UA Negative Negative - 50 Eliceo/mcL [facility] Clarity, UA Clear [facility] Color, UA Yellow [facility] Glucose, UA Positive Negative - 2000(110) ++++ mg/dL [facility] Comment on above: 250mg/dL Interpretation and review of laboratory results Abnormal [facility] Ketones, UA Negative Negative - 160(16) ++++ mg/dL [facility] Leukocytes, UA Trace Negative - 500+++ Danielle/mcL [facility] Nitrite, UA Negative Negative - Positive [facility] pH, UA 6 5 - 9 [facility] Protein, UA Positive Negative - 2000(20) ++++ mg/dL [facility] Comment on above: 30mg/dL Spec Grav, UA 1.03 1 - 1.03 [facility] Urobilinogen, UA 0.2 0.2 - 12 mg/dL [facility] ALL CBC WITH AUTO DIFFon BASOPHILS ABSOLUTE AUTO 0 [facility] Basophils/100 WBC (Bld) 0.3 % 0.2 - 2.0 % [facility] Eosinophils/100 WBC (Bld) 4.4 % 0.9 - 7.0 % [facility] Erythrocyte distribution width (RBC) [Ratio] 12 % 11.0 - 15.0 % [facility] Hematocrit (Bld) [Volume fraction] 44.2 % 36.0 - 48.0 % [facility] Hemoglobin (Bld) [Mass/Vol] 15.2 g/dL 12.0 - 16.0 g/dL [facility] IMMATURE GRANULOCYTES ABS AUTO 0.03 [facility] Immature granulocytes/100 WBC (Bld) 0.3 % 0.0 - 0.5 % [facility] LYMPHOCYTES ABSOLUTE AUTO 2.1 [facility] Lymphocytes/100 WBC (Bld) 24.6 % 20.5 - 60.0 % [facility] MCH (RBC) [Entitic mass] 31.7 pg 26.7 - 34.0 pg [facility] MCHC (RBC) [Mass/Vol] 34.4 g/dL 29.9 - 35.2 g/dL [facility] MCV (RBC) [Entitic vol] 92.1 fL 81.0 - 99.0 fL [facility] MONOCYTES ABSOLUTE AUTO 0.6 [facility] Monocytes/100 WBC (Bld) 6.9 % 1.7 - 12.0 % [facility] NEUTROPHILS ABSOLUTE AUTO 5.5 [facility] Neutrophils/100 WBC (Bld) 63.5 % 43.0 - 75.0 % [facility] Platelet mean volume (Bld) [Entitic vol] 9.9 fL 9.5 - 13.5 fL [facility]H EO # 0.4 [facility] PLT 209 [facility] RBC 4.8 [facility] WBC 8.7 [facility] GTT 3 HR PREGon 03-29-2023 Glucose [Mass/Vol] 107 mg/dL Critically high 74-106 T [facility] Comment on above: Performed By: #### G TT3P #### [facility] [address] [place] [address] Dr. Loyd Coppola Glucose [Mass/Vol] 203 mg/dL Normal [facility] Comment on above: Performed By: #### G TT3P #### [facility] [address] [address] [address] Loyd Coppola Glucose [Mass/Vol] 191 mg/dL Normal [facility] Comment on above: Performed By: #### G TT3P #### [facility] [address] [address] [address] Loyd Coppola Glucose [Mass/Vol] 121 mg/dL Normal [facility] Comment on above: Performed By: #### G TT3P #### [facility] [address] [address] [address] Loyd Coppola AFP MATERNAL FOR SPINA BIFID Aon 03-23-2023 AFP MoM 0.70 Normal [facility] Comment on above: Performed By: #### JUSTIN CHAVARRIARO #### [facility] [address] [place] [address] Dr. Loyd Coppola AFP Value 18.1 ng/mL Normal [facility] Comment on above: Performed By: #### Suzi ZAVALETA UMICRO #### [facility] [address] [address] [address] Loyd Coppola AFP, Serum for Spina Bifida Report Normal [facility] Comment on above: Performed By: #### Suzi ZAVALETA UMICRO #### [facility] [address] [address] [address] Loyd Coppola Comment Comment Normal [facility] Comment on above: Result Comment: Eboni Shah, Ph.D., [facility] Director . References: Available Upon Request. . Multiples Of Median Cutoffs For AFP Elevations Steiner 2.5 Black 2.8 IDD 2.0 Twins 4.5 Abbreviation Definitions IDD - Insulin Dep Diabetes OSBR - Open Spina Bifida Risk . For further inquiries contact [email or web address] [facility] at [phone]. . This test was developed and its performance characteristics determined by [employer]. It has not been cleared or approved by the Food and Drug Administration. Performed By: #### JUSTIN CHAVARRIARO #### [facility] [address] [place] [address] Dr. Loyd Kohli Age Collection Date 16.4 weeks Normal [facility] Comment on above: Performed By: #### Suzi ZAVALETA UMICRO #### [facility] [address] [place] [address] Dr. Loyd Coppola Gestat, Age Based on As provided Normal [facility] Comment on above: Result Comment: Reca lculations are not recommended when gestational dating by LMP and ultrasound are within 10 days. Performed By: #### JUSTIN CHAVARRIARO #### [facility] [address] [place] [address] Dr. Loyd Coppola Insulin Dep Diabetes No Normal [facility] Comment on above: Performed By: #### E RUR, UMICRO #### [facility] [address] [place] [address] Dr. Loyd Coppola Interpretation Comment Normal [facility] Comment on above: Result Comment: Inte [...] Customer Services to discuss available options. The [employer] recommends amniocentesis be offered to women age 35 and older. Performed By: #### MORGAN CHAVARRIAICRO #### [facility] [address] [place] [address] Dr. Loyd Coppola [age] Normal [facility] Comment on above: Performed By: #### Suzi ZAVALETA UMICRO #### [facility] [address] [place] [address] Dr. Loyd Coppola Multiple Gestation No Normal [facility] Comment on above: Performed By: #### Suzi ZAVALETA UMICRO #### [facility] [address] [place] [address] Dr. Loyd Coppola OSBR [place] [id number] Normal [facility] Comment on above: Performed By: #### Suzi ZAVALETA UMICRO #### [facility] [address] [place] [address] Dr. Loyd Coppola PDF . Normal [facility] Comment on above: Performed By: #### Suzi ZAVALETA UMICRO #### [facility] [address] [place] [address] Dr. Loyd Coppola Race Normal [facility] Comment on above: Performed By: #### Suzi ZAVALETA UMICRO #### [facility] [address] [place] [address] Dr. Loyd Coppola Test Results: Negative Normal [facility] Comment on above: Performed By: #### E RUR, UMICRO #### [facility] [address] [address] [address] Loyd Coppola GLUCOSE - 1HRon 03-21-2023 Glucose [Mass/Vol] 165 mg/dL Critically high 74-106 T [facility] Comment on above: Performed By: #### G LU1HR #### [facility] [address] [place] [address] Dr. Loyd Coppola PAP ACOG PANEL 2: 30 to 65on 02-19-2023 . . Normal [facility] Comment on above: Result Comment: Perf ormed at: WB Performed By: #### E RUR, UMICRO #### [facility] [address] [place] [address] Dr. Loyd Coppola Age Gdln ACOG Testing 30-65 [facility] Comment on above: Performed By: #### E MEGHANN, UMICRO #### [facility] [address] [place] [address] Dr. Loyd Coppola DIAGNOSIS: Comment Normal [facility] Comment on above: Result Comment: NEGA TIVE FOR INTRAEPITHELIAL LESION OR MALIGNANCY. Performed at: WB Performed By: #### E MEGHANN, UMICRO #### [facility] [address] [place] [address] Dr. Loyd Coppola HPV Aptima Negative Normal Negative [facility] Comment on above: Result Comment: This nucleic acid amplification test detects fourteen high-risk HPV types (16,18,31,33,35,39,45,51,52,56,58,59,66,68) without differentiation. Performed at: =G Performed By: #### E RUR, UMICRO #### [facility] [address] [place] [address] Dr. Loyd Coppola HPV Genotype Reflex Comment Normal [facility] Comment on above: Result Comment: Crit eria not met, HPV Genotype not performed. Performed at: WB Performed By: #### E RUR, UMICRO #### [facility] [address] [place] [address] Dr. Loyd Coppola Methodology: Comment Normal [facility] Comment on above: Result Comment: This liquid based ThinPrep(R) pap test was screened with the use of an image guided system. Performed at: WB Performed By: #### JUSTIN CHAVARRIARO #### [facility] [address] [place] [address] Dr. Loyd Coppola Note: Comment Normal [facility] Comment on above: Result Comment: The Pap smear is a screening test designed to aid in the detection of premalignant and malignant conditions of the uterine cervix. It is not a diagnostic procedure and should not be used as the sole means of detecting cervical cancer. Both false-positive and false-negative reports do occur. . Performed at: WB Performed By: #### JUSTIN CHAVARRIARO #### [facility] [address] [place] [address] Dr. Loyd Coppola Performed by: Comment Normal [facility] Comment on above: Result Comment: Lidya Kirkpatrick, Strategic Client Executive (ASCP) Performed at: WB Performed By: #### JUSTIN CHAVARRIARO #### [facility] [address] [place] [address] Dr. Loyd Coppola Specimen adequacy: Comment Normal [facility] Comment on above: Result Comment: Sati sfactory for evaluation. No endocervical component is identified. Performed at: WB Performed By: #### Suzi ZAVALETA UMJUAN FRANCISCORO #### [facility] [address] [place] [address] Dr. Loyd Coppola US PREG CERVICAL LENGTHon [...] by: YOMAIRA GONZALEZ Date: 2023-02-18 15:51 Normal [facility] CHLAMYDIA/GONOCOCCUS ANTONELLA (SW AB/URINE/PAPon 02-15-2023 Chlamydia trachomatis, ANTONELLA Negative Normal Negative [facility] Comment on above: Performed By: #### C T/NGNA #### [facility] [address] [place] [address] Dr. Loyd Coppola Neisseria gonorrhoeae, ANTONELLA Negative Normal Negative [facility] Comment on above: Performed By: #### C T/NGNA #### [facility] [address] [address] [address] Loyd Coppola VAGINITIS/VAGINOSIS DNA PROB Vineet 02-15-2023 Leigha species Negative Normal Negative [facility] Comment on above: Performed By: #### C BC #### [facility] [address] [place] [address] Dr. Loyd Coppola Gardnerella vaginalis Negative Normal Negative [facility] Comment on above: Performed By: #### C BC #### [facility] [address] [place] [address] Dr. Loyd Coppola Trichomonas vaginalis Negative Normal Negative [facility] Comment on above: Performed By: #### C BC #### [facility] [address] [place] [address] Dr. Loyd Coppola HEP B SURFACE ANTIGEN SCREEN on 02-01-2023 HBsAg Screen Negative Normal Negative [facility] Comment on above: Performed By: #### H BSANS #### [facility] [address] [place] [address] Dr. Loyd Coppola HEPATITIS C VIRUS AB W/ REFL EX QUANTon 02-01-2023 HCV AB Non-Reactive Normal Non Reactive [facility] Comment on above: Performed By: #### C BC #### [facility] [address] [place] [address] Dr. Loyd Coppola Interpretation: Comment Normal [facility] Comment on above: Result Comment: Not infected with HCV unless early or acute infection is suspected (which may be delayed in an immunocompromised individual), or other evidence exists to indicate HCV infection. Performed By: #### C BC #### [facility] [address] [place] [address] Dr. Loyd Coppola HIV 1 AND 2 WITH REFLEXon HIV Screen 4th Generation wRfx Non-Reactive Normal Non Reactive [facility] Comment on above: Result Comment: HIV Negative HIV-1/HIV-2 antibodies and HIV-1 p24 antigen were NOT detected. There is no laboratory evidence of HIV infection. Performed By: #### C BC #### [facility] [address] [place] [address] Dr. Loyd Coppola RPR QUANTon 02-01-2023 Rapid Plasma Reagin, Quant Non-Reactive Normal NonRea<1:1 [facility] Comment on above: Result Comment: Plea se Note: This test does not meet current guidelines for screening and diagnosis of syphilis. This test is intended for following treatment response in patients being treated for syphilis infection. To screen for syphilis infection, a reflex cascade that includes both RPR and a treponema-specific assay should be utilized, such as Treponema pallidum (Syphilis) Screening [place] (372384) or Rapid Plasma Reagin (RPR) Test With Reflex to Quantitative RPR and Confirmatory Treponema pallidum Antibodies (587765). Performed By: #### JESUS CHAVARRIA #### [facility] [address] [place] [address] Dr. Loyd Coppola RUBELLA AB IGGon 02-01-2023 Rubella Antibodies, IgG 1.08 index Normal Immune >0.99 [facility] Comment on above: Result Comment: Non- immune <0.90 Equivocal 0.90 - 0.99 Immune >0.99 Performed By: #### C BC #### [facility] [address] [place] [address] Dr. Loyd Coppola BOX TEST SENT OUTon 02-01-20 23 SENT TO REF LAB 01/31/23 Normal [facility] Comment on above: Performed By: #### JESUS CHAVARRIA #### [facility] [address] [place] [address] Dr. Loyd Coppola CBC AUTO DIFFon 01-31-2023 BASO # 0.0 103/ul Normal 0.0-0.1 [facility] Comment on above: Performed By: #### C BC #### [facility] [address] [place] [address] Dr. Loyd Coppola Basophils/100 WBC (Bld) 0.2 % Normal 0.2-2.0 [facility] Comment on above: Performed By: #### C BC #### [facility] [address] [place] [address] Dr. Loyd oCppola EO # 0.1 103/ul Normal 0.0-0.7 [facility] Comment on above: Performed By: #### C BC #### [facility] [address] [place] [address] Dr. Loyd Coppola Eosinophils/100 WBC (Bld) 1.5 % Normal 0.9-7.0 [facility] Comment on above: Performed By: #### C BC #### [facility] [address] [place] [address] Dr. Loyd Coppola Erythrocyte distribution width (RBC) [Ratio] 12.3 % Normal 11.0-15.0 [facility] Comment on above: Performed By: #### C BC #### [facility] [address] [place] [address] Dr. Loyd Coppola Hematocrit (Bld) [Volume fraction] 39.3 % Normal 36.0-48.0 [facility] Comment on above: Performed By: #### C BC #### [facility] [address] [place] [address] Dr. Loyd Coppola Hemoglobin (Bld) [Mass/Vol] 14.3 g/dL Normal 12.0-16.0 [facility] Comment on above: Performed By: #### C BC #### [facility] [address] [place] [address] Dr. Loyd Coppola IG # 0.03 10e3/ul Normal 0.00-0.03 [facility] Comment on above: Performed By: #### C BC #### [facility] [address] [place] [address] Dr. Loyd Coppola IG % 0.3 % Normal 0.0-0.5 [facility] Comment on above: Performed By: #### C BC #### [facility] [address] [place] [address] Dr. Loyd Coppola LYMPH # 2.3 103/ul Normal 1.2-3.8 [facility] Comment on above: Performed By: #### C BC #### [facility] [address] [place] [address] Dr. Loyd Coppola Lymphocytes/100 WBC (Bld) 24.8 % Normal 20.5-60.0 [facility] Comment on above: Performed By: #### C BC #### [facility] [address] [place] [address] Dr. Loyd Coppola MANUAL DIFF REQ NO Normal [facility] Comment on above: Performed By: #### C BC #### [facility] [address] [place] [address] Dr. Loyd oCppola MCH (RBC) [Entitic mass] 32.6 pg Normal 26.7-34.0 [facility] Comment on above: Performed By: #### C BC #### [facility] [address] [place] [address] Dr. Loyd Coppola MCHC (RBC) [Mass/Vol] 36.4 g/dL Critically high 29.9-35.2 [facility] Comment on above: Performed By: #### C BC #### [facility] [address] [place] [address] Dr. Loyd Coppola MCV (RBC) [Entitic vol] 89.7 fL Normal 81.0-99.0 [facility] Comment on above: Performed By: #### C BC #### [facility] [address] [place] [address] Dr. Loyd Coppola MONO # 0.5 103/ul Normal 0.3-0.8 [facility] Comment on above: Performed By: #### C BC #### [facility] [address] [place] [address] Dr. Loyd Coppola Monocytes/100 WBC (Bld) 5.2 % Normal 1.7-12.0 [facility] Comment on above: Performed By: #### C BC #### [facility] [address] [place] [address] Dr. Loyd Coppola NEUT # 6.4 103/ul Normal 1.4-6.5 [facility] Comment on above: Performed By: #### C BC #### [facility] [address] [place] [address] Dr. Loyd Coppola Neutrophils/100 WBC (Bld) 68.0 % Normal 43.0-75.0 [facility] Comment on above: Performed By: #### C BC #### [facility] [address] [place] [address] Dr. Loyd Coppola Platelet mean volume (Bld) [Entitic vol] 10.5 fL Normal 9.5-13.5 [facility] Comment on above: Performed By: #### C BC #### [facility] [address] [place] [address] Dr. Loyd Coppola PLT 171 103/ul Normal 150-450 [facility] Comment on above: Performed By: #### C BC #### [facility] [address] [place] [address] Dr. Loyd Coppola RBC 4.38 106/ul Normal 4.20-5.40 [facility] Comment on above: Performed By: #### C BC #### [facility] [address] [place] [address] Dr. Loyd Coppola WBC 9.4 103/ul Normal 4.0-11.0 [facility] Comment on above: Performed By: #### C BC #### [facility] [address] [place] [address] Dr. Loyd Coppola CULTURE URINEon 01-31-2023 CULTURE URINE Culture Observations : LIGHT GROWTH OF MIXED GENITAL CASSIDY. NO POTENTIAL PATHOGENS SEEN. Normal [facility] Comment on above: Performed By: #### C BC #### [facility] [address] [place] [address] Dr. Loyd Coppola CULTURE URINE Isolate 1 [...] F Trimethoprim/Sulfameth oxazole <=20 S F Normal [facility] Comment on above: Performed By: #### C BC #### [facility] [address] [place] [address] Dr. Loyd Coppola GLYCOHEMOGLOBIN A1Con 2022 ADA RECOMMENDATION SEE BELOW Normal [facility] Comment on above: Result Comment: ADA RECOMMENDED LIMIT 4.0 - 6.0 ADA THERAPEUTIC TARGET < 7.0 ACTION SUGGESTED > 7.0 Performed By: #### A 1C #### [facility] [address] [place] [address] Dr. Loyd Coppola Glucose [Mass/Vol] 100 mg/dL Normal [facility] Comment on above: Performed By: #### A 1C #### [facility] [address] [place] [address] Dr. Loyd Coppola HbA1c (Bld) [Mass fraction] 5.1 % Normal 4.5-6.2 [facility] Comment on above: Performed By: #### A 1C #### [facility] [address] [place] [address] Dr. Loyd Coppola TSHon 01-31-2023 TSH 0.495 uIU/mL Normal 0.358-3.740 [facility] Comment on above: Performed By: #### E JESUS ZAVALETA #### [facility] [address] [place] [address] Dr. Loyd Coppola TYPE AND SCREENon 01-31-2023 TYPE AND SCREEN Negative Normal [facility] Comment on above: Performed By: #### C BC #### [facility] [address] [place] [address] Dr. Loyd Coppola CBC AUTO DIFFon 01-28-2023 BASO # 0.0 103/ul Normal 0.0-0.1 [facility] Comment on above: Performed By: #### C BC #### [facility] [address] [place] [address] Dr. Loyd Coppola Basophils/100 WBC (Bld) 0.2 % Normal 0.2-2.0 [facility] Comment on above: Performed By: #### C BC #### [facility] [address] [place] [address] Dr. Loyd Coppola EO # 0.1 103/ul Normal 0.0-0.7 [facility] Comment on above: Performed By: #### C BC #### [facility] [address] [place] [address] Dr. Loyd Coppola Eosinophils/100 WBC (Bld) 0.8 % Critically low 0.9-7.0 [facility] Comment on above: Performed By: #### C BC #### [facility] [address] [place] [address] Dr. Loyd Coppola Erythrocyte distribution width (RBC) [Ratio] 12.3 % Normal 11.0-15.0 [facility] Comment on above: Performed By: #### C BC #### [facility] [address] [place] [address] Dr. Loyd Coppola Hematocrit (Bld) [Volume fraction] 45.0 % Normal 36.0-48.0 [facility] Comment on above: Performed By: #### C BC #### [facility] [address] [place] [address] Dr. Loyd Coppola Hemoglobin (Bld) [Mass/Vol] 16.3 g/dL Critically high 12.0-16.0 [facility] Comment on above: Performed By: #### C BC #### [facility] [address] [place] [address] Dr. Loyd Coppola IG # 0.03 10e3/ul Normal 0.00-0.03 [facility] Comment on above: Performed By: #### C BC #### [facility] [address] [place] [address] Dr. Loyd Coppola IG % 0.4 % Normal 0.0-0.5 [facility] Comment on above: Performed By: #### C BC #### [facility] [address] [address] [address] Loyd Coppola LYMPH # 1.4 103/ul Normal 1.2-3.8 [facility] Comment on above: Performed By: #### C BC #### [facility] [address] [place] [address] Dr. Loyd Coppola Lymphocytes/100 WBC (Bld) 16.8 % Critically low 20.5-60.0 [facility] Comment on above: Performed By: #### C BC #### [facility] [address] [place] [address] Dr. Loyd Coppola MANUAL DIFF REQ NO Normal [facility] Comment on above: Performed By: #### C BC #### [facility] [address] [place] [address] Dr. Loyd Coppola MCH (RBC) [Entitic mass] 32.1 pg Normal 26.7-34.0 [facility] Comment on above: Performed By: #### C BC #### [facility] [address] [place] [address] Dr. Loyd Coppola MCHC (RBC) [Mass/Vol] 36.2 g/dL Critically high 29.9-35.2 [facility] Comment on above: Performed By: #### C BC #### [facility] [address] [place] [address] Dr. Loyd Coppola MCV (RBC) [Entitic vol] 88.8 fL Normal 81.0-99.0 [facility] Comment on above: Performed By: #### C BC #### [facility] [address] [place] [address] Dr. Loyd Coppola MONO # 0.9 103/ul Critically high 0.3-0.8 [facility] Comment on above: Performed By: #### C BC #### [facility] [address] [place] [address] Dr. Loyd Coppola Monocytes/100 WBC (Bld) 10.5 % Normal 1.7-12.0 [facility] Comment on above: Performed By: #### C BC #### [facility] [address] [place] [address] Dr. Loyd Coppola NEUT # 6.0 103/ul Normal 1.4-6.5 [facility] Comment on above: Performed By: #### C BC #### [facility] [address] [place] [address] Dr. Loyd Coppola Neutrophils/100 WBC (Bld) 71.3 % Normal 43.0-75.0 [facility] Comment on above: Performed By: #### C BC #### [facility] [address] [place] [address] Dr. Loyd Coppola Platelet mean volume (Bld) [Entitic vol] 10.7 fL Normal 9.5-13.5 [facility] Comment on above: Performed By: #### C BC #### [facility] [address] [place] [address] Dr. Loyd Coppola PLT 174 103/ul Normal 150-450 [facility] Comment on above: Performed By: #### C BC #### [facility] [address] [place] [address] Dr. Loyd Coppola RBC 5.07 106/ul Normal 4.20-5.40 [facility] Comment on above: Performed By: #### C BC #### [facility] [address] [place] [address] Dr. Loyd Coppola WBC 8.4 103/ul Normal 4.0-11.0 [facility] Comment on above: Performed By: #### C BC #### [facility] [address] [place] [address] Dr. Loyd Coppola ER URINE PROFILEon 3 Bilirubin Ql (U) SMALL Abnormal NEGATIVE [facility] Comment on above: Performed By: #### JUSTIN CHAVARRIARO #### [facility] [address] [place] [address] Dr. Loyd Coppola Clarity (U) CLEAR Normal CLEAR [facility] Comment on above: Performed By: #### JUSTIN CHAVARRIARO #### [facility] [address] [place] [address] Dr. Loyd Coppola Color (U) YELLOW Normal YELLOW [facility] Comment on above: Performed By: #### E SUHAR, UMICRO #### [facility] [address] [place] [address] Dr. Loyd DIAS A micrscopic examination will be performed if indicated. Normal [facility] Comment on above: Performed By: #### E SUHAR, UMICRO #### [facility] [address] [place] [address] Dr. Loyd Coppola Glucose Ql (U) Negative Normal NEGATIVE [facility] Comment on above: Performed By: #### E RUR, UMICRO #### [facility] [address] [place] [address] Dr. Loyd Coppola Hemoglobin Ql (U) TRACE-INTACT Abnormal NEGATIVE [facility] Comment on above: Performed By: #### E RUR, UMICRO #### [facility] [address] [place] [address] Dr. Loyd Coppola Ketones Ql (U) 80 mg/dl Abnormal NEGATIVE [facility] Comment on above: Performed By: #### Suzi RUHerbert, UMICRO #### [facility] [address] [place] [address] Dr. Loyd Coppola LEUKOCYTES Negative Normal NEGATIVE [facility] Comment on above: Performed By: #### Suzi ZAVALETA, UMICRO #### [facility] [address] [place] [address] Dr. Loyd Coppola Nitrite Ql (U) Negative Normal NEGATIVE [facility] Comment on above: Performed By: #### E RUR, UMICRO #### [facility] [address] [place] [address] Dr. Loyd Coppola pH (U) 6.5 [pH] Normal 5-9 [facility] Comment on above: Performed By: #### E MEGHANN, UMICRO #### [facility] [address] [place] [address] Dr. Loyd Coppola Protein (U) [Mass/Vol] 100 mg/dL Abnormal NEGATIVE/ TRACE [facility] Comment on above: Performed By: #### E RUR, UMICRO #### [facility] [address] [place] [address] Dr. Loyd Coppola SPEC GRAVITY 1.030 Abnormal 1.005-<=1.025 [facility] Comment on above: Performed By: #### JESUS CHAVARRIA #### [facility] [address] [place] [address] Dr. Loyd Coppola UR MICRO IND INDICATED Normal [facility] Comment on above: Performed By: #### JESUS CHAVARRIA #### [facility] [address] [place] [address] Dr. Loyd Coppola Urobilinogen Qn (U) 0.2 {Taylor'U}/dL Normal 0.2 - 1. 0 [facility] Comment on above: Performed By: #### JESUS CHAVARRIA #### [facility] [address] [place] [address] Dr. Loyd Coppola PROF 14(COMP METB)on 023 Albumin [Mass/Vol] 3.5 g/dL Normal 3.4-5.0 [facility] Comment on above: Performed By: #### C BC #### [facility] [address] [place] [address] Dr. Loyd Coppola Albumin/Globulin [Mass ratio] 0.9 {ratio} Normal [facility] Comment on above: Performed By: #### C BC #### [facility] [address] [place] [address] Dr. Loyd Coppola ALP [Catalytic activity/Vol] 61 U/L Normal 46-116 [facility] Comment on above: Performed By: #### C BC #### [facility] [address] [place] [address] Dr. Loyd Coppola ALT [Catalytic activity/Vol] 29 U/L Normal 14-59 [facility] Comment on above: Performed By: #### C BC #### [facility] [address] [place] [address] Dr. Loyd Coppola Anion gap [Moles/Vol] 12.0 mmol/L Normal [facility] Comment on above: Performed By: #### C BC #### [facility] [address] [address] [address] Loyd Coppola AST [Catalytic activity/Vol] 24 U/L Normal 15-37 [facility] Comment on above: Performed By: #### C BC #### [facility] [address] [address] [address] Loyd Coppola Bilirubin [Mass/Vol] 0.4 mg/dL Normal 0.2-1.0 [facility] Comment on above: Performed By: #### C BC #### [facility] [address] [address] [address] Loyd Coppola Calcium [Mass/Vol] 8.6 mg/dL Normal 8.5-10.1 [facility] Comment on above: Performed By: #### C BC #### [facility] [address] [place] [address] Dr. Loyd Coppola Chloride [Moles/Vol] 99 mmol/L Normal 98-107 [facility] Comment on above: Performed By: #### C BC #### [facility] [address] [address] [address] Loyd Coppola CO2 [Moles/Vol] 24.9 mmol/L Normal 21.0-32.0 [facility] Comment on above: Performed By: #### C BC #### [facility] [address] [place] [address] Dr. Loyd Coppola Creatinine [Mass/Vol] 0.55 mg/dL Normal 0.55-1.02 [facility] Comment on above: Performed By: #### C BC #### [facility] [address] [place] [address] Dr. Loyd Coppola EGFR-AF GREENLANDIC >60 Normal >=60 [facility] Comment on above: Performed By: #### C BC #### [facility] [address] [place] [address] Dr. Loyd Coppola EGFR-NON AF GREENLANDIC >60 Normal >=60 [facility] Comment on above: Performed By: #### C BC #### [facility] [address] [place] [address] Dr. Loyd Coppola Globulin (S) [Mass/Vol] 3.8 g/dL Normal [facility] Comment on above: Performed By: #### C BC #### [facility] [address] [place] [address] Dr. Loyd Coppola Glucose [Mass/Vol] 106 mg/dL Normal 74-106 [facility] Comment on above: Performed By: #### C BC #### [facility] [address] [place] [address] Dr. Loyd Coppola Potassium [Moles/Vol] 2.9 mmol/L Critically low 3.5-5.1 [facility] Comment on above: Performed By: #### C BC #### [facility] [address] [place] [address] Dr. Loyd Coppola Protein [Mass/Vol] 7.3 g/dL Normal 6.4-8.2 [facility] Comment on above: Performed By: #### C BC #### [facility] [address] [place] [address] Dr. Loyd Coppola Sodium [Moles/Vol] 135 mmol/L Critically low 136-145 [facility] Comment on above: Performed By: #### C BC #### [facility] [address] [place] [address] Dr. Loyd Coppola Urea nitrogen [Mass/Vol] 12.0 mg/dL Normal 7.0-18.0 [facility] Comment on above: Performed By: #### C BC #### [facility] [address] [place] [address] Dr. Loyd Coppola Urea nitrogen/Creatinine [Mass ratio] 21.8 mg/mg Normal [facility] Comment on above: Performed By: #### C BC #### [facility] [address] [place] [address] Dr. Loyd Coppola URINE MICROSCOPIC ONLYon BACTERIA MODERATE Abnormal NONE SEEN [facility] Comment on above: Performed By: #### E JESUS ZAVALETA #### [facility] [address] [place] [address] Dr. Loyd Coppola Bacteria identified Cx Nom (U) INDICATED Normal [facility] Comment on above: Performed By: #### E RUR, UMICRO #### [facility] [address] [place] [address] Dr. Loyd Coppola CAST NONE SEEN Normal NONE SEEN [facility] Comment on above: Performed By: #### E RUR, UMICRO #### [facility] [address] [place] [address] Dr. Loyd Coppola Crystals LM Nom (Urine sed) NONE SEEN Normal NONE SEEN [facility] Comment on above: Performed By: #### E RUR, UMICRO #### [facility] [address] [place] [address] Dr. Loyd Coppola Epithelial cells LM Ql (Urine sed) MANY Abnormal NONE SEEN /RARE [facility] Comment on above: Performed By: #### E RUR, UMICRO #### [facility] [address] [place] [address] Dr. Loyd Coppola MUCOUS SMALL Abnormal NONE SEEN [facility] Comment on above: Performed By: #### E RUR, UMICRO #### [facility] [address] [place] [address] Dr. Loyd Coppola RBC 0-2 Normal 0-2 [facility] Comment on above: Performed By: #### E RUR, UMICRO #### [facility] [address] [place] [address] Dr. Loyd Coppola WBC 2-5 Abnormal NONE SEEN [facility] Comment on above: Performed By: #### E RUR, UMICRO #### [facility] [address] [place] [address] Dr. Loyd Coppola US PREG TVon 01-23-2023 [...] by: YOMAIRA GONZALEZ Date: 2023-01-23 15:42 Normal [facility] PAP ACOG PANEL 2: 21 to 29on 09-19-2022 . . Normal [facility] Comment on above: Performed By: #### [id number] #### [facility] [address] [place] [address] Dr. Loyd Coppola Age Gdln ACOG Testing 21-29 [facility] Comment on above: Performed By: #### [id number] #### [facility] [address] [place] [address] Dr. Loyd Coppola DIAGNOSIS: Comment [facility] Comment on above: Result Comment: NEGA TIVE FOR INTRAEPITHELIAL LESION OR MALIGNANCY. Performed By: #### [id number] #### [facility] [address] [place] [address] Dr. Loyd Coppola Methodology: Comment [facility] Comment on above: Result Comment: This liquid based ThinPrep(R) pap test was screened with the use of an image guided system. Performed By: #### [id number] #### [facility] [address] [place] [address] Dr. Loyd Coppola Note: Comment [facility] Comment on above: Result Comment: The Pap smear is a screening test designed to aid in the detection of premalignant and malignant conditions of the uterine cervix. It is not a diagnostic procedure and should not be used as the sole means of detecting cervical cancer. Both false-positive and false-negative reports do occur. . Performed By: #### [id number] #### [facility] [address] [place] [address] Dr. Loyd Coppola Performed by: Comment Normal [facility] Comment on above: Result Comment: Celestina Velasco, Strategic Client Executive (ASCP) Performed By: #### [id number] #### [facility] [address] [place] [address] Dr. Loyd Coppola Reflex Criteria: Comment Normal [facility] Comment on above: Result Comment: The HPV DNA reflex criteria were not met with this specimen result therefore, no HPV testing was performed. . Performed By: #### [id number] #### [facility] [address] [address] [address] Loyd Coppola Specimen adequacy: Comment Normal [facility] Comment on above: Result Comment: Sati sfactory for evaluation. Endocervical and/or squamous metaplastic cells (endocervical component) are present. Performed By: #### [id number] #### [facility] [address] [address] [address] Loyd Coppola Vital Signs Date Time Vital Sign Value Performing Clinician Facility 12-28-2024 13:59-0500 Body mass index (BMI) [Ratio] 44.14 kg/m2 Thomas Sebastian DO Work Phone: [facility] 12-28-2024 13:59-0500 Body weight 127.82 kg Thomas Sebastian DO Work Phone: [facility] 12-28-2024 13:59-0500 Diastolic blood pressure 84 mm[Hg] Thomas Sebastian DO Work Phone: [facility] 12-28-2024 13:59-0500 Systolic blood pressure 126 mm[Hg] Thomas Sebastian DO Work Phone: [facility] 11-26-2024 09:44-0500 Body mass index (BMI) [Ratio] 43.95 kg/m2 [facility] 11-26-2024 09:44-0500 Body weight 127.28 kg [facility] Nurse [facility] 03-23-2023 03:40-0400 Body weight 122.[address] JULIANNE LAMBERT . [facility] Comment on above: Performed By: #### JESUS SANDOVAL #### [facility] [id number] Loyd Coppola Encounters Encounter Date Encounter Type Care Provider Facility Start: 01-24-2025 End: 01-24-2025 ambulatory THOMAS SEBASTIAN Not Available Start: 01-08-2025 End: 01-08-2025 Clinisync Result Encounter [...] CORTES . Facili ty:[facility] Start: 03-29-2023 End: 05-21-2023 ambulatory KESHA HALL . Facility:[facility] Start: 03-21-2023 [...] End: 09-11-[address] JULIANNE LAMBERT . Facility: Procedures Date Procedure Procedure Detail Performing Clinician Start: 01-08-2025 ALL CBC WITH AUTO DIFF Thomas Sebastian DO Work Phone: Start: 12-28-2024 Urnls dip stick/tabl et rgnt non-auto w/o micrscp Thomas Sebastian DO Work Phone: Start: 11-27-2024 ALL CBC WITH AUTO DIFF Thomas Sebastian DO Work Phone: Plan of Treatment Date Care Activity Detail Author Start: 01-24-2025 End: 01-24-2025 Patient encounter procedure 01/24/2025 11:20 AM EDT Routine [facility] [address] [place] [address] Thomas Cortes, DO [address] [place] [address] [facility] Start: 12-28-2024 End: 12-28-2025 Measurement of glucose 1 hour after glucose challenge for glucose tolerance test Glucose tolerance, 1 hour Lab Routine Diabetes mellitus screening Expected: 12/28/2024 (Approximate), Expires: 12/28/2025 [facility] Work Phone: Comment on above: Expected: 12/28/2024 (Approximate), Expires: 12/28/2025 Start: 12-28-2024 End: 12-28-2024 Patient encounter procedure [facility] Comment on above: Arrived Start: 12-27-2024 End: 12-27-2024 Patient encounter procedure 12/27/2024 1:40 PM EST Routine [facility] [address] [place] [id number] Thomas Cortes DO [address] [place] [address] [facility] Start: 11-26-2024 End: 11-26-2025 ABO/Rh ABO/Rh Lab Routine Missed menses , unspecified gestational age Expected: 11/26/2024 (Approximate), Expires: 11/26/2025 [facility] Comment on above: Expected: 11/26/2024 (Approximate), Expires: 11/26/2025 Start: 11-26-2024 End: 11-26-2025 Blood type and Indirect antibody screen panel - Blood Type and screen Lab Routine Missed menses , unspecified gestational age Expected: 11/26/2024 (Approximate), Expires: 11/26/2025 [facility] Work Phone: Comment on above: Expected: 11/26/2024 (Approximate), Expires: 11/26/2025 Start: 11-26-2024 End: 11-26-2025 Drugs of abuse panel - Urine by Screen method Rapid drug screen, urine Lab Routine , unspecified gestational age Encounter for supervision of normal first in first trimester Expected: 11/26/2024 (Approximate), Expires: 11/26/2025 [facility] Comment on above: Expected: 11/26/2024 (Approximate), Expires: 11/26/2025 Bacteria identified in Urine by Culture Urine culture Microbiology Routine Missed menses Ordered: 11/26/2024 [facility] Comment on above: Ordered: 11/26/2024 CBC W Auto Different ial panel - Blood CBC and differential Lab Routine Missed menses , unspecified gestational age Ordered: 11/26/2024 [facility] Comment on above: Ordered: 11/26/2024 Hemoglobin A1c/Hemoglobin.total in Blood Hemoglobin A1c Lab Routine Missed menses , unspecified gestational age Ordered: 11/26/2024 [facility] Comment on above: Ordered: 11/26/2024 Hepatitis B virus surface Ag [Presence] in Serum or Plasma by Immunoassay Hepatitis B surface antigen Lab Routine Missed menses , unspecified gestational age Ordered: 11/26/2024 [facility] Comment on above: Ordered: 11/26/2024 Hepatitis C virus Ab [Presence] in Serum or Plasma by Immunoassay Hepatitis C antibody Lab Routine Missed menses , unspecified gestational age Ordered: 11/26/2024 [facility] Comment on above: Ordered: 11/26/2024 HIV-1/HIV-2 antigen/antibody combination immunoassay HIV-1 and HIV-2 antibodies Lab Routine Missed menses , unspecified gestational age Ordered: 11/26/2024 [facility] Comment on above: Ordered: 11/26/2024 Reagin Ab [Presence] in Serum by RPR RPR Lab Routine Missed menses , unspecified gestational age Ordered: 11/26/2024 [facility] Comment on above: Ordered: 11/26/2024 Rubella antibody, IgG Rubella an tibody, IgG Lab Routine Missed menses , unspecified gestational age Ordered: 11/26/2024 [facility] Comment on above: Ordered: 11/26/2024 Payers Date Payer Category Payer [facility] [id number] 1992 Unknown [id number] 1992 Unknown [id number] [id number]. [id number] 1992 Unknown [id number] [id number]. 2.593 1992 Unknown [id number] [id number]. 2.593 1992 Unknown [id number] [id number]. 2.593 1992 Unknown [id number] [id number]. 2.593 1992 Unknown [id number] [id number]. 2.593 1992 Unknown [id number] [id number]. 2.593 1992 Unknown [id number] [id number]. 2.593 1992 Unknown [id number] [id number]. 2.1259 1992 Unknown [id number] 1990 Unknown [id number] 1992 Unknown [id number] 1992 Unknown [id number] 1959 Unknown [id number] Social History Date Type Detail Facility Start: 04-22-2023 Tobacco smoking stat [facility] Ex-smoker [facility] History of tobacco use Current smoker [facility] History of tobacco use Cigarette Smoker [facility] Start: 11-26-2024 Alcoholic beverage intake Life time non-drinker (finding) [facility] Start: 03-18-2024 History of Social function [facility] Start: 03-18-2024 Tobacco use panel [facility] Start: 10-01-2024 [facility] Start: 1990 Sex assigned at Not on file [facility] History of Present illness Narrative 12-28-2024 Grace Arita, LOAN SECRETARY - 12/28/2024 1:40 PM EST Note Date [...] Morbid obesity with BMI of 40.0-44.9, adult ([facility]) HISTORY PAST MEDICAL HISTORY SOCIAL HISTORY Past Medical History: Diagnosis Date Chronic hypertension affecting Exposure to cat feces, sequela Former smoker Gestational diabetes Herpes exposure History of miscarriage Morbid obesity with BMI of 40.0-44.9, adult ([facility]) Social History Tobacco Use Smoking status: Former [...] nursing note reviewed. Exam conducted with a ham sawyer present. Vitals: Estimated body mass index is [...] or undercooked meat, and stay away from [facility]. Patient has been consulted regarding any [...] Healthcare History of Present illness Narrative 11-26-2024 Danayaddy Ortega LPN - 11/26/2024 9:00 AM EST [...] Morbid obesity with BMI of 40.0-44.9, adult ([facility]) Family History Problem Relation Name Age of [...] or undercooked meat, and stay away from [facility]. Patient has also been advised to [...] Danay Ortega LPN documented in this encounter [facility] Healthcare Evaluation note Note Date & Type [...] and content) DATE CREATED AUTHOR 04/18/2023 [facility] DATE CREATED AUTHOR AUTHOR'S ORGANIZ ATION 01/26/2025 [facility] EPIC Reason for Visit (unrecogniz ed [...] BE BASED ON THE PRIMARY CLINICAL RECORDS. [employer] provides no warranty or guarantee of the accuracy or completeness of information in this document.
[2025-02-09 00:07] LABS: AFP Value 34.5 ng/mL (.); Gest. Age on Collection Date 20.4 weeks (.); Insulin Dep Diabetes No (.); Maternal Age At EDD 32.5 yr (.); OSBR Risk 1 IN 10000 (.); Results Report (.)
== END 2025-02-07 11:19 | disposition home or self-care (01) ==
LOC: LAB 11:19
PROVIDERS: Visit Provider Obstetrics & Gynecology
DX: Z34.92 Encounter for supervision of normal pregnancy, unspecified, second trimester (principal)
CPT/HCPCS: 36415; 82105

== ENCOUNTER 2025-03-05 12:39 | Outpatient (OUT) | payer BC, SELFPAY ==
--- NOTE | 2025-03-05 12:48 | US_ITS ---
The [address] [address] Patient Name: KIRA CASTELLON MRN: [id number] date: 1990 Sex: F Assigned Patient Location: US Current Patient Location: Accession/Order Number: [id number] Exam Date: 03/07/2025 12:39 Report Date: 03/07/2025 12:42 At the request of: THOMAS FORMAN DO Procedure: US OB incomplete anatomy OB limited. Next Reason for exam: Follow-up anatomy. COMPARISON: No anatomy survey is provided for direct comparison. TECHNIQUE: Transabdominal imaging of the gravid uterus was obtained. FINDINGS: Single live intrauterine with a heart rate 1 53 bpm. positioning is breech. Kidneys are visualized and appear unremarkable. Four-chamber heart is seen. Outflow tracts could not be visualized. US/US OB incomplete anatomy IMPRESSION: Kidneys and four-chamber heart are seen on today's study. Outflow tracts cannot be visualized. Impression dictated by: Jacinto Rivas Jr., D.O. 03/07/2025 12:42 PM Dictation Location: [employer] Electronically authenticated by: [id number] Y Date: 03/07/2025 12:42
== END 2025-03-05 12:40 | disposition home or self-care (01) ==
LOC: US 12:41
PROVIDERS: Visit Provider Obstetrics & Gynecology
DX: Z36.2 Encounter for other antenatal screening follow-up (principal)
CPT/HCPCS: 76815

== ENCOUNTER 2025-03-12 07:24 | Outpatient (OUT) | payer BC, SELFPAY ==
[2025-03-12 08:04] LABS: Creatinine Urine Random 19.05 mg/dL (20.00-300.00); Total Protein Urine Random <6.0 mg/dL (<=11.9)
[2025-03-12 08:12] LABS: Alanine Aminotransferase 13 U/L (14-59); Albumin Globulin Ratio 0.8; Albumin Level 2.8 g/dL (3.4-5.0); Alkaline Phosphatase 65 U/L (46-116); Aspartate Amino Transferase 14 U/L (15-37); BUN Creatinine Ratio 15.6; Bilirubin Total 0.3 mg/dL (0.2-1.0); Calcium 8.8 mg/dL (8.5-10.1); Carbon Dioxide 26.8 mmol/L (21.0-32.0); Chloride 101 mmol/L (98-107); Estimated GFR (African America >60 (>=60 mL/min/1.73m^2); Estimated GFR (Non-African Ame >60 (>=60 mL/min/1.73m^2); Globulin 3.7 g/dL; Glucose 99 mg/dL (74-106); Potassium 3.8 mmol/L (3.5-5.1); Sodium 137 mmol/L (136-145); Total Protein 6.5 g/dL (6.4-8.2)
== END 2025-03-12 07:25 | disposition home or self-care (01) ==
LOC: LAB 07:28
DX: O24.415 Gestational diabetes mellitus in pregnancy, controlled by oral hypoglycemic drugs (principal)
CPT/HCPCS: 36415; 80053; 82570; 84156

== ENCOUNTER 2025-04-06 07:34 | Outpatient (RCR) | payer BC, SELFPAY ==
[2025-04-06 12:28] VITALS: BP 126/74; PULSE 95; TEMP 36.2; O2SAT 97
[2025-04-06] MEDS: RHO(D) IMMUNE GLOBULIN 1,500 UNIT SYRINGE 1500 UNIT IM (12:37)
== END 2025-04-07 08:17 | disposition home or self-care (01) ==
LOC: LAB 07:34
PROVIDERS: Visit Provider Obstetrics & Gynecology
DX: Z51.81 Encounter for therapeutic drug level monitoring (principal); Z67.91 Unspecified blood type, Rh negative; Z79.899 Other long term (current) drug therapy
CPT/HCPCS: 36415; 86850; 86900; 86901; J2791

== ENCOUNTER 2025-04-11 14:55 | Outpatient (OUT) | payer BC, SELFPAY ==
--- OUTSIDE RECORDS SUMMARY | 2025-04-05 13:50 | XMS_ITS | Encounter Summary ---
Author Organization [facility] Address [address] [place] [address] Care Team Providers Care Topographical Engineer Name Role Phone Unavailable Primary Care Provider Unavailabl e Reason for Visit * Reason Comments Routine Visit Encounter Details Date Type Department Care Team (Latest Contact Info) Description 04/05/2025 1:50 PM EDT Routine [facility] [address] [place] [phone] Nolan Cortes, DO [address] [facility] [address] [place], [place] [phone] Third trimester ; 28 weeks gestation of [...] Morbid obesity with BMI of 40.0-44.9, adult ([facility]) HISTORY PAST MEDICAL HISTORY SOCIAL HISTORY Past Medical History: Diagnosis Date Chronic hypertension affecting Exposure to cat feces, sequela Former smoker Gestational diabetes Herpes exposure History of miscarriage Morbid obesity with BMI of 40.0-44.9, adult ([facility]) Social History Tobacco Use Smoking status: [...] nursing note reviewed. Exam conducted with a manufacturing director present. Vitals: Estimated body mass index is [...] Care Team (Late st Contact Info) Description 04/18/2025 1:00 PM EDT Routine [facility] [address] [facility] [place] [address] Nolan Cortes, DO [address] [facility] [place] [address] Scheduled Orders Name Type Priority Associated Diagnoses Orde r Schedule US OB follow up transabdominal approach Imaging Routine Gestational diabetes mellitus (GDM), antepartum, gestational diabetes method of control unspecified H/O: hypertension c1cdecn for 4 Occurrences starting 04/05/2025 until 10/06/2025 [...] Positive Urine 04/05/2025 2:19 PM EDT Nolan Cortes DO POINT OF CARE TEST ENTER/EDIT OR DERABLES Final Result documented in this encounter Visit Diagnoses Diagnosis Third trimester state, incidental 28 weeks gestation of Gestational diabetes mellitus (GDM), antepartum, gestational diabetes method of control unspecified H/O: hypertension Personal history of other diseases of circulatory system documented in this encounter
--- NOTE | 2025-04-11 14:58 | US_ITS ---
[place] [id number] Patient Name: KIRA CASTELLON MRN: [id number] date: 1990 Sex: F Assigned Patient Location: [facility] Current Patient Location: Accession/Order Number: [id number] Exam Date: 04/11/2025 16:04 Report Date: 04/11/2025 16:05 At the request of: THOMAS FORMAN DO Procedure: US OB BPP w non-stress Ultrasound biophysical profile HISTORY: Gestational diabetes. History of hypertension Adequate breathing movement, gross body movement, tone and amniotic fluid volume for total score of 8 out of 8. The amniotic fluid index is 10.4cm within normal limits. The heart rate 152 bpm. US/US OB BPP w non-stress IMPRESSION: Adequate ultrasound biophysical profile Impression dictated by: Harlan Olvera M.D. 04/11/2025 4:05 PM Dictation [facility] Electronically authenticated by: [id number] Y Date: 04/11/2025 16:05
--- OUTSIDE RECORDS SUMMARY | 2025-04-11 14:58 | XMS_ITS | Encounter Summary ---
Author Organization [facility] Address [address] [place] [address] Care Team Providers Care Assistant Merchandiser Name Role Phone Unavailable Primary Care Provider Unavailabl e Encounter Details Date Type Department Care Team (Late st Contact Info) Description 04/14/[address] [facility] OB [address] [facility] [place] [phone] Nolan Cortes, [facility] [address] [place], [facility] Social History Tobacco Use Types Packs/Day Years Used Date Smoking Tobacco: Never Assessed Comments Unknown Sex and Gender Information Value Date Recorded Sex Assigned at Not on file Legal Sex Female 11:46 PM EDT Gender Identity Not on file Sexual Orientation Not on file documented as of this encounter Plan of Treatment Upcoming Encounters Date Type Department Care Team (Late st Contact Info) Description 04/18/2025 1:00 PM EDT [facility]ine [facility] OB [address] [place] [address] Nolan Cortes, DO [facility] [address] [place], [place] [id number] documented as of this encounter Visit Diagnoses Not on filedocumented in this encounter
--- OUTSIDE RECORDS SUMMARY | 2025-04-11 14:58 | XMS_ITS ---
Author Organization [facility] (ClinicalSummary Clone) Address Unknown Care Team Providers Care Red Hat Linux Engineer Name Role Phone Unavailable Primary Care Physician Unavailab le Results * [UNITY] ANEUPLOIDY NIPT Performed by: [employer] Value Range Date Fraction 5.5% 04/05/2025 06 :48 pm UTC Rh(D) NIPT RhD DETECTED 04/05/2025 06:4 8 pm UTC Sex Chromosome Aneuploidy NOT DETECTED 06:48 pm UTC Monosomy X LOW RISK <1 in 10,000 2024 06:48 pm UTC Trisomy 13 LOW RISK <1 in 10,000 2024 06:48 pm UTC Trisomy 18 LOW RISK <1 in 10,000 2024 06:48 pm UTC Trisomy 21 LOW RISK <1 in 10,000 2024 06:48 pm UTC Sex MALE 04/05/2025 06:4 8 pm UTC Gestation SANABRIA 04/05/20 06:48 pm UTC This result reflects an amended result REVISED REPORT to include Rh(D) NIPT. 04/05/2025 06:48 pm UTC For detailed report, see PDF See PDF 04/05/2025 06:48 pm UTC 04/05/2025 06:4 8 pm UTC Social History Observation Value Start Date End Date
--- OUTSIDE RECORDS SUMMARY | 2025-04-11 14:58 | XMS_ITS | Encounter Summary ---
Author Organization [facility] Address [address] [place] [address] Care Team Providers Care Financial Assistant Name Role Phone Unavailable Primary Care Provider Unavailabl e Encounter Details Date Type Department Care Team (Late Contact Info) Description 05/20/2023 Abstract [facility] OB [address] [place] [address] Nolan Cortes, [facility] [address] [place], [facility] Social History Tobacco Use Types Packs/Day Years Used Date Smoking Tobacco: Former Cigarettes Alcohol Use Standard Drinks/Week Comments Never 0 (1 standard drink = 0.6 oz pur e alcohol) Comments Yes Sex and Gender Information Value Date Recorded Sex Assigned at Not on file Legal Sex Female 11:46 PM EDT Gender Identity Not on file Sexual Orientation Not on file documented as of this encounter Plan of Treatment Upcoming Encounters Date Type Department Care Team (Late Contact Info) Description 04/18/2025 1:00 PM EDT Routine [facility] [address] [place] [address] Nolan Cortes, DO [address] [place], [facility] documented as of this encounter Visit Diagnoses Not on filedocumented in this encounter
--- OUTSIDE RECORDS SUMMARY | 2025-04-11 14:58 | XMS_ITS | Encounter Summary ---
Author Organization [facility] Address [address] [place] [address] Care Team Providers Care Chair Springer Name Role Phone Unavailable Primary Care Provider Unavailabl e Encounter Details Date Type Department Care Team (Late Contact Info) Description 04/25/2023 Abstract [facility] OB [address] [place] [address] Nolan Cortes, [facility] [address] [place], [facility] Social History Tobacco Use Types Packs/Day [...] Routine [facility] [address] [place] [address] Nolan Cortes, DO [address] [place], [facility] documented as of this encounter Visit Diagnoses Not on filedocumented in this encounter
--- OUTSIDE RECORDS SUMMARY | 2025-04-11 14:58 | XMS_ITS | Encounter Summary ---
Demographics Address [address] [place] [address] Mobile Phone Home Phone Email Address Email Address Preferred Language Icelandic Marital Status Islam Affiliation Unknown Race White Ethnic Group Not or Lati no Author Organization [facility] [address] tem Address [id number] [address] [place] [address] Support Name Relationship Address Phone Dariusz Purvis Emergency Contact [address] [place] [address] Sravani Villasenor Personal Relationship [address] [place] [address] Laura Cope Personal Relationship Unknown [phone] Care Team Providers Care Blower Blast Furnace Name Role Phone Eli Azul MD Primary Care Provider + Encounter Details Date Type Department Care Team (Late st Contact Info) Description 03/15/2025 Orders Only Maternal- Medicine at [facility] [address] [place] [phone] Rufina Hurd CMA Social History Tobacco Use Types Packs/Day Years Used Date Smoking Tobacco: Former Vaping/E-cigarettes Smokeless Tobacco: Never Alcohol Use Standard Drinks/Week Comments Not Currently 0 (1 standard drink = 0.6 oz pur e alcohol) rare Childcare Answer Date Recorded Childcare Unknown 04/19/2019 Employment Answer Date Recorded Employment Unknown 04/19/2019 Hunger Screening Answer Date Recorded Within the past 12 months we worried whether our food would run out before we got money to buy more. Never True 03/08/2025 Within the past 12 months th e food we bought just didn't last and we didn't have money to get more. Never True 03/08/2025 Purpose - Life Answer Date Recorded Purpose and direction in life Unknown Estimated Date of Delivery Comme nts Yes 06/24/2025 Based on last me nstrual period of 09/17/2024 Sex and Gender Information Value Date Recorded Sex Assigned at Female 02/24/2023 5:56 PM EDT Legal Sex Female 11:59 AM EDT Gender Identity Female 02/24/2023 5:56 PM EDT Sexual Orientation Straight 02/24/2023 5: 56 PM EDT documented as of this encounter Plan of Treatment Upcoming Encounters Date Type Department Care Team (Late st Contact Info) Description 04/19/2025 10:30 AM EDT Telemedicine Maternal- Medicine at [facility] [address] [place] [address] Kenya Acosta, [facility] [address] [address] documented as of this encounter Visit Diagnoses Not on filedocumented in this encounter Care Teams Blower Blast Furnace Relationship Specialty Start Date End Date Eli Azul MD PCP - General Pediatrics 06/23/18 documented as of this encounter
--- OUTSIDE RECORDS SUMMARY | 2025-04-11 14:58 | XMS_ITS | Clinical Summary ---
Demographics Address [address] [place] [address] Mobile Phone Home Phone Email Address Email Address Preferred Language Mongolian Marital Status Bahai Affiliation Unknown Race White Ethnic Group Not or Lati no Author Organization [employer] tem Address [id number] [address] [place] [address] Support Name Relationship Address Phone Dariusz Purvis Emergency Contact [address] [place] [address] Sravani Villasenor Personal Relationship [address] [place] [address] Laura Cope Personal Relationship Unknown Care Team Providers Care Ore Fielder Name Role Phone Eli Azul MD Primary Care Provider + Allergies No known active allergies Medications blood sugar diagnostic (glucose blood) strip 1 strip by other route as needed for high blood sugar. ReliOn test strips Active blood-glucose meter (RELION MICRO GLUCOSE MONITOR) misc by miscellaneous route. Active lancets (LANCETS,ULTRA THIN) misc by miscellaneous route. Ultra Thin Active vit calc,iron,folic ( VITAMIN ORAL) Take 1 tablet by mouth in the morning. Active aspirin 81 mg chewable tablet Chew 1 tablet (81 mg total) and swallow in the morning. Active ondansetron ODT (ZOFRAN-ODT) 4 mg disintegrating tablet Dissolve 1 tablet (4 mg total) on tongue every 8 (eight) hours as needed for nausea for up to 10 doses. 10 tablet 08/25/20 21 Active pen needle, diabetic (BD ULTRA-FINE SILVIA PEN NEEDLE) 32 gauge x 5/32 needle Use a new needle with each injection 100 each 3 03/23/20 25 Active metFORMIN XR (GLUCOPHAGE XR) 500 mg 24 hr tabletIndications :Gestational diabetes mellitus (GDM) in second trimester controlled on oral hypoglycemic drug Take 500mg in am with breakfast and 1000 mg in pm with dinner 60 tablet 4 03/23/20 25 Active ondansetron (ZOFRAN) 4 mg tablet Take 1 tablet (4 mg total) by mouth every 8 (eight) hours as needed for nausea or vomiting. Discontin ued(Alter willa therapy) progesterone (PROMETRIUM) 200 mg capsuleIndication s:History of delivery Place 200 mg Inside vagina every night until 36 weeks. 90 capsule 3 02/25/20 23 025 Discontin ued(Thera py completed ) metFORMIN XR (GLUCOPHAGE XR) 500 mg 24 hr tabletIndications :Gestational diabetes mellitus (GDM) in second trimester controlled on oral hypoglycemic drug Take 1 tablet (500 mg total) by mouth in the morning and 1 tablet (500 mg total) before bedtime. 60 tablet 4 03/08/20 25 Discontin ued(Reord er) insulin glargine (LANTUS SOLOSTAR U-100 INSULIN) 100 unit/mL (3 mL) insulin pen Prime with 2 units, then inject 10 units SQ into ABD each evening 15 mL 3 03/23/20 25 Discontin ued(Alter willa therapy) Active Problems Problem Noted Date Diagnosed Date Gestational diabetes mellitu s (GDM) in second trimester controlled on oral hypoglycemic drug 03/23/2025 History of delivery 02/24/2023 Estimated Date of Delivery Comme nts Yes 06/24/2025 Based on last me nstrual period of 09/17/2024 Encounters Date Type Department Care Team Description 04/01/2025 Telephone Maternal- Medicine at [facility] [address] [place] [address] Violet Lopez RN 03/23/2025 10:30 AM EDT Telemedicine Maternal- Medicine at [facility] [address] [place] [address] Iman Hall, COMBAT RIFLE CREWMEMBER-COIL FORMER Gestational diabetes mellitus (GDM) in second trimester controlled on oral hypoglycemic drug 03/23/2025 Travel 03/23/2025 Telephone Maternal- Medicine at [facility] [address] [place] [address] Rufina Hurd, TRAVEL SPECIALIST 03/16/2025 Telephone Maternal- Medicine at [facility] [address] [place] [address] Violet Lopez, RN 03/15/2025 Orders Only Maternal- Medicine at [facility] [address] [place] [address] Rufina Hurd, TRAVEL SPECIALIST 03/08/2025 1:00 PM EDT Office Visit Maternal- Medicine at [facility] [address] [place] [address] Kenya Acosta, UDAY Gestational diabetes mellitus (GDM) in second trimester controlled on oral hypoglycemic drug (Primary Dx) 03/08/2025 Travel 03/08/2025 Telephone Maternal- Medicine at [facility] [address] [place] [address] Rufina Hurd, TAINA 03/04/2025 Telephone Maternal- Medicine at [facility] [address] [place] [address] Shima Renee, URIEL 03/02/2025 Telephone Maternal- Medicine at [facility] [address] [place] [address] Shima Renee, URIEL 02/24/2025 Telephone Maternal- Medicine at [facility] [address] [place] [address] Jewels Pedersen LD 02/16/2025 9:30 AM EDT Support Visit Maternal- Medicine at [facility] [address] [place] [address] Violet Lopez, RN Alexandria Iraheta RD Diet controlled gestational diabetes mellitus (GDM) in second trimester (Primary Dx); Encounter for diabetes education 02/16/2025 Travel 02/07/2025 Orders Only Maternal- Medicine at [facility] [address] [facility] [place] [address] Ref Prov, Not In System 02/07/2025 Abstract Maternal- Medicine at [facility] [address] [place] [address] Iman Hall APRN-CNP from Last 3 Months Immunizations Immunization Administration Dates Next Due Rho (D) Immune Globulin 08/25/2021 Family History Medical History Relation Name Comments Colon cancer Maternal Grandfather Diabetes Mother Hypertension Mother Relation Name Status Comments Father Alive Maternal Grandfather Mother Alive Social History Tobacco Use Types Packs/Day Years Used Date Smoking Tobacco: Former Vaping/E-cigarettes Smokeless Tobacco: Never Tobacco Cessation:Counseling Given: Not Answered Alcohol Use Standard Drinks/Week Comments Not Currently [...] Orientation Straight 02/24/2023 5: 56 PM EDT Last Filed Vital Signs Vital Sign Reading Time Taken Comments Blood Pressure 125/66 03/08/2025 1:08 PM EDT Pulse 95 03/08/2025 1:08 PM EDT Temperature 36.9 C (98.5 F) 08/25/2021 8:21 PM EDT Respiratory Rate 19 08/25/2021 11:2 9 PM EDT Oxygen Saturation 98% 08/25/2021 11: 29 PM EDT Inhaled Oxygen Concentration - - Weight 132.4 kg (291 lb 12.8 oz) 03/08/2025 1:08 PM EDT Height 170.2 cm (5' 7 ) 08/25/2021 8:21 PM EDT Body Mass Index 45.7 08/25/2021 8:21 PM EDT Plan of Treatment Upcoming Encounters Date Type Department Care Team (Late st Contact Info) Description 04/19/2025 10:30 AM EDT Telemedicine Maternal- Medicine at [facility] [address] [place] [phone] Kenya Acosta PA-C [address] [address] Health Maintenance Due Date Last Done Comments Depression Screening 2004 DTaP,Tdap and Td Vaccines (1 - Tdap) 2011 Tobacco Screening 04/22/2024 04/22/2023 Influenza Vaccine 07/11/2025 10/10/2023 Pap Smear 02/19/2026 02/19/2023 Adult BMI Screening 03/08/2026 03/08/2025 Medical Devices Not on file Procedures Procedure Name Priority Date/Time Associated Diagnosis Comments POCT HEMOGLOBIN A1C Routine 03/08/2025 2 :02 PM EDT Gestational diabetes mellitus (GDM) in second trimester controlled on oral hypoglycemic drug GLUCOSE RANDOM OR FASTING Routine 02/16/2025 Diet controlled gestational diabetes mellitus (GDM) in second trimester CHLAMYDIA/GC BY PCR THINPREP FLUID Routine 01/24/2025 CHLAMYDIA/GC BY PCR DEVON SWAB Routine 01/24/2025 from Last 3 Months Results * POCT Hemoglobin A1c (03/08/2025 2:02 PM EDT) External Poct Hgb A1C 5.8 4 - 7 % MANUALLY TRANSCRIBED RESULTS Blood 03/08/2025 2:02 PM EDT Kenya Acosta PA-C POINT OF CARE TEST ORDERABL ES Final Result Performing Organization Address City/[facility]/ZIP Co de Phone Number MANUALLY TRANSCRIBED RESULTS * Glucose random or fasting- POCT (02/16/2025) External Glucose Fasting Or Random (Fbs) 110 MANUALLY TRANSCRIBED RESULTS 02/16/2025 us Iman Hall COMBAT RIFLE CREWMEMBER-COIL FORMER LAB BLOOD ORDERABLES Fi nal Result MANUALLY TRANSCRIBED RESULTS * Chlamydia/GC by PCR ThinPrep fluid (01/24/2025) Chlamydia Dna(Pcr) NOT DETECTED MANUALLY TRANSCRIBED RESULTS us Not In System Ref Prov MICROBIOLOGY - GENERAL OR DERABLES Final Result MANUALLY TRANSCRIBED RESULTS * Chlamydia/GC by PCR Devon Swab (01/24/2025) Gonorrhoeae Dna(Pcr) NOT DETECTED MANUALLY TRANSCRIBED RESULTS us Not In System Ref Prov MICROBIOLOGY - GENERAL OR DERABLES Final Result Performing Organization Address City/[facility] Co de Phone Number MANUALLY TRANSCRIBED RESULTS from Last 3 Months Insurance ANTH Care Teams Ore Fielder Relationship Specialty Start Date End Date Eli Azul MD PCP - General Pediatrics 06/23/18
--- OUTSIDE RECORDS SUMMARY | 2025-04-11 14:58 | XMS_ITS | Encounter Summary ---
Author Organization [facility] Address [address] [place] [address] Care Team Providers Care Continuous Dryout Operator Helper Name Role Phone Unavailable Primary Care Provider Unavailabl e Encounter Details Date Type Department Care Team (Late Contact Info) Description 02/01/2025 Abstract [facility] [address] [place] [address] Nolan Cortes DO [address] [place], [facility] Social History Tobacco Use Types Packs/Day [...] Routine [facility] [address] [place] [address] Nolan Cortes DO [address] [place] [address] documented as of this encounter Visit Diagnoses Not on filedocumented in this encounter
--- OUTSIDE RECORDS SUMMARY | 2025-04-11 14:58 | XMS_ITS | Encounter Summary ---
Author Organization [facility] Address [address] [place] [address] Care Team Providers Care Upholsterer Helper Name Role Phone Unavailable Primary Care Provider Unavailabl e Encounter Details Date Type Department Care Team (Late Contact Info) Description 08/08/2023 Clinisync Result Encounter [facility] External Department Unsolicited Thomas Cortes[address] [place] [address] Social History Tobacco Use Types Packs/Day Years [...] Description 04/18/2025 1:00 PM EDT Routine [facility] [address] [place] [address] Thomas Cortes[address] [place] [address] documented as of this encounter Procedures Procedure Name Priority Date/Time Associated Diagnosis Comments US OB GROWTH 08/08/2023 3:08 PM EDT documented in this encounter Results * US OB GROWTH (08/08/2023 3:08 PM EDT) Anatomical Region Laterality Modality Other 08/08/2023 3:08 PM EDT Narrative 08/08/2023 3:08 [place] [address] Ultrasound Report Signed Patient: KIRA PURVIS MR#: [id number] : 1990 Acct:[id number] Age/Sex: 32 / F ADM Date: 08/07/23 Loc: US Attending Dr: Thomas Cortes D.O. Ordering Physician: Thomas Cortes D.O. Date of Service: 08/07/23 Procedure(s): US OB growth Accession Number(s): [id number] cc: Thomas Cortes D.O.; Physician,Non-Staff [place] [address] Patient Name: KIRA PURVIS MRN: [id number] date: 1990 Sex: F Assigned Patient Location: [facility] Current Patient Location: US Accession/Order Number: [id number] Exam Date: 08/07/2023 16:05 Report Date: 08/08/2023 15:08 At the request of: THOMAS CORTES Procedure: US OB growth EXAMINATION: US OB growth HISTORY: SIZE INCONSISTENT WITH DATES O26.849 COMPARISON: Ultrasound OB growth 07/10/2023 TECHNIQUE: Transabdominal sonographic examination was performed for obstetrical and evaluation. FINDINGS: Number: 1 Heart Rate: 166.7 bpm H.B. /min Amniotic Fluid Volume: 14.0 cm; normal range Placental Location: Anterior without previa BIOMETRY: BPD: 9.1 cm 37 weeks 1 days HC: 33.9 cm 39 weeks 0 days AC: 32.5 cm 36 weeks 3 days FL: 7.2 cm 37 weeks 0 days EFW:3062.6 grams; 70% FL/AC: 22.2 FL/BPD: 79.0 HC/AC: 1.0 GESTATIONAL AGE: Age by EDC: 36 weeks 2 days LELA by EDC: 09/02/2023 Age by current US: 37 weeks 3 days LELA by current US: 08/25/2023 US/US OB growth IMPRESSION: 1. Single live intrauterine with growth detailed above. Electronically authenticated by: YOMAIRA DILLON Date: 08/08/2023 15:08 Dictated By: Yomaira Dillon M.D. Signed By: 08/08/23 1511 DD/ 1508 TD/TT: Jacquard Loom Card Changer: Procedure Note Radiology, Radiologist, - 08/08/2023 [place] [address] Ultrasound Report Signed Patient: KIRA PURVIS LMR#: [id number] : 1990Acct:[id number] Age/Sex: 32 / FADM Date: 08/07/23 Loc: US Attending Dr: Thomas Cortes D.O. Ordering Physician: Thomas Cortes D.O. Date of Service: 08/07/23 Procedure(s): US OB growth Accession Number(s): [id number] cc: Thomas Cortes D.O.; Physician,Non-Staff [place] [address] Patient Name: KIRA PURVIS MRN: [id number] date: 1990 Sex: F Assigned Patient Location: [facility] Current Patient Location: US Accession/Order Number: [id number] Exam Date: 08/07/2023 16:05 Report Date: 08/08/2023 15:08 At the request of: THOMAS CORTES Procedure: US OB growth EXAMINATION: US OB growth HISTORY: SIZE INCONSISTENT WITH DATES O26.849 COMPARISON: Ultrasound OB growth 07/10/2023 TECHNIQUE: Transabdominal sonographic examination was performed for obstetrical and evaluation. FINDINGS: Number: 1 Heart Rate: 166.7 bpm H.B. /min Amniotic Fluid Volume: 14.0 cm; normal range Placental Location: Anterior without previa BIOMETRY: BPD: 9.1 cm 37 weeks 1 days HC: 33.9 cm 39 weeks 0 days AC: 32.5 cm 36 weeks 3 days FL: 7.2 cm 37 weeks 0 days EFW:3062.6 grams; 70% FL/AC: 22.2 FL/BPD: 79.0 HC/AC: 1.0 GESTATIONAL AGE: Age by EDC: 36 weeks 2 days LELA by EDC: 09/02/2023 Age by current US: 37 weeks 3 days LELA by current US: 08/25/2023 US/US OB growth IMPRESSION: 1. Single live intrauterine with growth detailed above. Electronically authenticated by: YOMAIRA DILLON Date: 08/08/2023 15:08 Dictated By: Yomaira Dillon M.D. Signed By:08/08/23 1511 DD/ 1508 TD/TT: Jacquard Loom Card Changer: us Thomas Sebastian DO [facility] Final Result documented in this encounter Visit Diagnoses Not on filedocumented in this encounter
--- OUTSIDE RECORDS SUMMARY | 2025-04-11 14:58 | XMS_ITS | Encounter Summary ---
Demographics Address [address] [place] [address] Mobile Phone Home Phone Email Address Email Address Preferred Language Beninese Marital Status Judaism Affiliation Unknown Race White Ethnic Group Not or Lati no Author Organization [facility] Address [id number] [address] [place] [address] Support Name Relationship Address Phone Dariusz Purvis Emergency Contact [address] [place] [address] Sravani Villasenor Personal Relationship [address] [place] [address] Laura Cope Personal Relationship Unknown [phone] Care Team Providers Care Universal Grinder Tool Name Role Phone Eli Azul MD Primary Care Provider + Encounter Details Date Type Department Care Team (Late st Contact Info) Description 02/07/2025 Orders Only Maternal- Medicine at [facility] [address] [place] [address] Ref Prov, [place] [address] Social History Tobacco Use Types Packs/Day Years [...] got money to buy more. Never True 04/22/2023 Within the past 12 months th e food we bought just didn't last and we didn't have money to get more. Never True 04/22/2023 Purpose - Life Answer Date Recorded Purpose [...] 10:30 AM EDT Telemedicine Maternal- Medicine at [facility] [address] [place] [address] Kenya Acosta PA-C [address] [address] documented as of this encounter Procedures Procedure Name Priority Date/Time Associated Diagnosis Comments FREE CELL DNA (NON-PROMEDICA) Routine 11/30/2024 1:50 PM EST US PREG LMTD 1 OR MORE FETUS Routine 11/26/2024 1:52 PM EST documented in this encounter Results * Free Cell DNA (11/30/2024 1:50 PM EST) us Not In System Ref Prov LAB BLOOD ORDERABLES Kathy l Result MANUALLY TRANSCRIBED RESULTS * Ultrasound limited 1 or more fetus (11/26/2024 1:52 PM EST) Anatomical Region Laterality Modality OB-NUCLEAR MEDICINE SUPERVISOR Ultrasound us Not In System Ref Prov IMG US ORDERABLES Final R esult documented in this encounter Visit Diagnoses Not on filedocumented in this encounter Care Teams Universal Grinder Tool Relationship Specialty Start Date End Date Eli Azul MD PCP - General Pediatrics 06/23/18 documented as of this encounter
--- OUTSIDE RECORDS SUMMARY | 2025-04-11 14:58 | XMS_ITS ---
Author Organization [facility] Source Produ ction (ClinicalSummary Clone) Address Unknown Care Team Providers Care Mop Handle Assembler Name Role Phone Unavailable Primary Care Physician Unavailab le Results * [UNITY] ANEUPLOIDY NIPT Performed by: [employer] Component Value Range Date Fraction 5.5% 12/07/2024 05 :04 am [facility] Sex Chromosome Aneuploidy NOT DETECTED 05:04 am [facility] Monosomy X LOW RISK <1 in 10,000 2024 05:04 am [facility] Trisomy 13 LOW RISK <1 in 10,000 2024 05:04 am [facility] Trisomy 18 LOW RISK <1 in 10,000 2024 05:04 am [facility] Trisomy 21 LOW RISK <1 in 10,000 2024 05:04 am [facility] Sex MALE 12/07/2024 05:0 4 am [facility] Gestation SANABRIA 12/07/19 05:04 am [facility] For detailed report, see PDF See PDF 12/07/2024 05:04 am UTC 12/07/2024 05:0 4 am [facility] Social History Observation Value Start Date End Date
--- OUTSIDE RECORDS SUMMARY | 2025-04-11 14:58 | XMS_ITS | Encounter Summary ---
Author Organization [facility] Address [address] [place] [address] Care Team Providers Care Child And Adolescent Psychologist Name Role Phone Unavailable Primary Care Provider Unavailabl e Encounter Details Date Type Department Care Team (Late st Contact Info) Description 04/21/2023 Abstract [facility] OB [address] [place] [address] Nolan Cortes, [facility] [place], [facility]11 Social History Tobacco Use Types Packs/Day Years Used Date Smoking Tobacco: Never Assessed Comments Yes Sex and Gender Information Value Date Recorded Sex Assigned at Not on file Legal Sex Female 11:46 PM EDT Gender Identity Not on file Sexual Orientation Not on file documented as of this encounter Plan of Treatment Upcoming Encounters Date Type Department Care Team (Late st Contact Info) Description 04/18/2025 1:00 PM EDT Routine [facility] [address] [place] [address] Nolan Cortes, DO [facility] [address] [place], [place] [address] documented as of this encounter Visit Diagnoses Not on filedocumented in this encounter
--- OUTSIDE RECORDS SUMMARY | 2025-04-11 14:58 | XMS_ITS | Encounter Summary ---
Demographics Address [address] [place] [address] Mobile Phone Home Phone Email Address Preferred Language Chadian Marital Status Jain Affiliation Unknown Race White Ethnic Group Not or Lati no Author Organization [email or web address] Address [id number] [address] [place] [address] Support Name Relationship Address Phone Dariusz Purvis Emergency Contact [address] [place] [address] Sravani Villasenor Personal Relationship [address] [place] [address] Laura Cope Personal Relationship Unknown [phone] Care Team Providers Care Animal Laboratory Helper Name Role Phone Eli Azul MD Primary Care Provider + Encounter Details Date Type Department Care Team (Late st Contact Info) Description 04/01/2025 Telephone Maternal- Medicine at [facility] [address] [place] [address] Violet Lopez, RN [address] [id number] Social History Tobacco Use Types Packs/Day Years [...] PM EDT documented as of this encounter Miscellaneous Notes * Telephone Encounter - Violet Lopez RN - 04/01/2025 11:38 AM EDTSumjoslyn: [facility] Blood Glucose Log Called. No answer. Message left noting BG log reviewed; noted improved FBS numbers since last Metformin XR dose increase. Noted no changes and continue Metformin XR as prescribed. Encouraged to call with any questions and to send BG log in again next week. documented in this encounter Plan of Treatment Upcoming Encounters Date Type Department Care Team (Late st Contact Info) Description 04/19/2025 10:30 AM EDT Telemedicine Maternal- Medicine at [facility] [address] [place] [address] Kenya Acosta, [facility] [address] [address] documented as of this encounter Visit Diagnoses Not on filedocumented in this encounter Care Teams Animal Laboratory Helper Relationship Specialty Start Date End Date Eli Azul MD PCP - General Pediatrics 06/23/18 documented as of this encounter
--- OUTSIDE RECORDS SUMMARY | 2025-04-11 14:58 | XMS_ITS | Encounter Summary ---
Author Organization [facility] Address [address] [place] [address] Care Team Providers Care Charge Entry Clerk Name Role Phone Unavailable Primary Care Provider Unavailabl e Encounter Details Date Type Department Care Team (Late st Contact Info) Description 04/18/2023 Abstract [facility] OB [address] [facility] [address] Nolan Cortes, [facility] [address] [place], [facility]11 Social History Tobacco Use Types Packs/Day Years [...] Description 04/18/2025 1:00 PM EDT Routine [facility] [address] [place] [address] Nolan Cortes, DO [facility] [address] [place], [place] [id number] documented as of this encounter Visit Diagnoses Not on filedocumented in this encounter
--- OUTSIDE RECORDS SUMMARY | 2025-04-11 14:58 | XMS_ITS | Encounter Summary ---
Author Organization [facility] Address [address] [place] [address] Care Team Providers Care Lead Project Engineer Name Role Phone Unavailable Primary Care Provider Unavailabl e Encounter Details Date Type Department Care Team (Late st Contact Info) Description 04/14/2023 Abstract [facility] OB [address] [place] [address] Nolan Cortes, [facility] Olivia [place], [facility]11 Social History Tobacco Use Types Packs/Day [...] Description 04/18/2025 1:00 PM EDT Routine [facility] OB [address] [place] [address] Nolan Cortes, DO [facility] [address] [place], [place] [address] documented as of this encounter Visit Diagnoses Not on filedocumented in this encounter
--- OUTSIDE RECORDS SUMMARY | 2025-04-11 14:58 | XMS_ITS | Encounter Summary ---
Author Organization [facility] Address [address] [place] [address] Care Team Providers Care Blow Mold Operator Name Role Phone Unavailable Primary Care Provider Unavailabl e Encounter Details Date Type Department Care Team (Latest Contact Info) Description 04/11/2025 Travel Social History Tobacco Use Types Packs/Day Years [...] PM EDT Routine [facility] OB [address] [facility] [place] [address] Nolan Cortes, DO [address] [facility] [place] [address] documented as of this encounter Visit Diagnoses Not on filedocumented in this encounter
--- OUTSIDE RECORDS SUMMARY | 2025-04-11 14:58 | XMS_ITS | Encounter Summary ---
Author Organization [facility] Address [address] [place] [address] Care Team Providers Care Authorization Rep Name Role Phone Unavailable Primary Care Provider Unavailabl e Encounter Details Date Type Department Care Team ([facility] Contact Info) Description 07/18/2023 Clinisync Result Encounter [facility] External Department Unsolicited Thomas Cortes, [facility] [place], [place] [id number] Social History Tobacco Use Types Packs/Day Years Used Date Smoking Tobacco: Former Cigarettes Alcohol Use Standard Drinks/Week Comments Never 0 (1 standard drink = 0.6 oz pur e alcohol) Comments Yes Sex and Gender Information Value Date Recorded Sex Assigned at Not on file Legal Sex Female 11:46 PM EDT Gender Identity Not on file Sexual Orientation Not on file COVID-19 Exposure Response Date Recorded In the last 10 days, have yo u been in contact with someone who was confirmed or suspected to have Coronavirus/COVID-19? No / Unsure 06/24/2023 11:12 AM EDT documented as of this encounter Plan of Treatment Upcoming Encounters Date Type Department Care Team ([facility] Contact Info) Description 04/18/2025 1:00 PM EDT Routine [facility] B[facility] OB [address] [place] [id number] Thomas Cortes DO [facility] [place] [address] documented as of this encounter Procedures Procedure Name Priority Date/Time Associated Diagnosis Comments US OB BPP W NON-STRESS 07/18/2023 3:07 PM EDT documented in this encounter Results * US OB BPP W NON-STRESS (07/18/2023 3:07 PM EDT) Anatomical Region Laterality Modality Other 07/18/2023 3:07 PM EDT Narrative 07/18/2023 3:07 [place] [address] Ultrasound Report Signed Patient: KIRA PURVIS MR#: [id number] 06 : 1990 Acct:[id number] Age/Sex: 32 / F ADM Date: 07/17/23 Loc: US Attending Dr: Thomas Cortes D.O. Ordering Physician: Thomas Cortes D.O. Date of Service: 07/17/23 Procedure(s): US OB BPP w non-stress Accession Number(s): [id number] cc: Thomas Cortes D.O.; Physician,Non-Staff Maryjo.[place] [address] Patient Name: KIRA PURVIS MRN: [facility]:[id number] date: 1990 Sex: F Assigned Patient Location: [facility] Current Patient Location: Accession/Order Number: [id number] Exam Date: 07/17/2023 16:00 Report Date: 07/18/2023 15:07 At the request of: THOMAS CORTES Procedure: US OB BPP w non-stress EXAMINATION: US OB BPP w non-stress HISTORY: SIZE INCONSISTENT WITH DATES O26.849 COMPARISON: Ultrasound OB biophysical 07/10/2023 TECHNIQUE: Ultrasound biophysical profile was performed in the radiology department. BREATHING MOVEMENTS: 2.0 GROSS BODY MOVEMENTS: 2.0 TONE: 2.0 QUALITATIVE AMNIOTIC FLUID VOLUME: 2.0 PRESENTATION: CEPHALIC HEART RATE: 149.2 bpm bpm. AMNIOTIC FLUID VOLUME: 14.8 cm GESTATIONAL AGE: 33 weeks 2 days CONCLUSION: Total biophysical profile score 8.0. Electronically authenticated by: RUBEN DILLON Date: 07/18/2023 15:07 Dictated By: Ruben Dillon M.D. Signed By: 07/18/231509 DD/ 06 TD/TT: Lathe Set Up Person: Procedure Note Radiology, Radiologist, - 08/01/2023 [place] [address] Ultrasound Report Signed Patient: KIRA PURVIS LMR#: [id number] 06 : 1990Acct:[id number] Age/Sex: 32 / FADM Date: 07/17/23 Loc: US Attending Dr: Thomas Cortes D.O. Ordering Physician: Thomas Cortes D.O. Date of Service: 07/17/23 Procedure(s): US OB BPP w non-stress Accession Number(s): [id number] cc: Thomas Cortes D.O.; Physician,Non-Staff [place] [address] Patient Name: KIRA PURVIS MRN: [id number] date: 1990 Sex: F Assigned Patient Location: [facility] Current Patient Location: Accession/Order Number: [id number] Exam Date: 07/17/2023 16:00 Report Date: 07/18/2023 15:07 At the request of: THOMAS CORTES Procedure: US OB BPP w non-stress EXAMINATION: US OB BPP w non-stress HISTORY: SIZE INCONSISTENT WITH DATES O26.849 COMPARISON: Ultrasound OB biophysical 07/10/2023 TECHNIQUE: Ultrasound biophysical profile was performed in the radiology department. BREATHING MOVEMENTS: 2.0 GROSS BODY MOVEMENTS: 2.0 TONE: 2.0 QUALITATIVE AMNIOTIC FLUID VOLUME: 2.0 PRESENTATION: CEPHALIC HEART RATE: 149.2 bpm bpm. AMNIOTIC FLUID VOLUME: 14.8 cm GESTATIONAL AGE: 33 weeks 2 days CONCLUSION: Total biophysical profile score 8.0. Electronically authenticated by: RUBEN DILLON Date: 07/18/2023 15:07 Dictated By: Ruben Dillon M.D. Signed By:07/18/231509 DD/ 06 TD/TT: Lathe Set Up Person: us Thomas Cortes DO [facility] Final Result documented in this encounter Visit Diagnoses Not on filedocumented in this encounter
--- OUTSIDE RECORDS SUMMARY | 2025-04-11 14:58 | XMS_ITS | Encounter Summary ---
Author Organization [facility] Address [address] [place] [address] Care Team Providers Care Cartography Technician Name Role Phone Unavailable Primary Care Provider Unavailabl e Encounter Details Date Type Department Care Team (Late Contact Info) Description 03/26/2024 Orders Only [facility] OB [address] [facility] [place] [address] Bertha Quevedo LPN [address] [place] [address] Social History Tobacco Use Types Packs/Day Years Used Date Smoking Tobacco: Former Cigarettes Alcohol Use Standard Drinks/Week Comments Never 0 (1 standard drink = 0.6 oz pur e alcohol) Comments Unknown Sex and Gender Information Value Date Recorded Sex Assigned at Not on file Legal Sex Female 11:46 PM EDT Gender Identity Not on file Sexual Orientation Not on file documented as of this encounter Plan of Treatment Upcoming Encounters Date Type Department Care Team (Late Contact Info) Description 04/18/2025 1:00 PM EDT Routine [facility] OB [address] [address] Nolan Cortes DO [address] [facility] [place] [address] documented as of this encounter Procedures Procedure Name Priority Date/Time Associated Diagnosis Comments PAP SMEAR Routine 03/18/2024 12:00 AM EDT documented in this encounter Results * Pap Smear (03/18/2024 12:00 AM EDT) Swab Cervical swab / Unknown us [facility] B[facility] Ob Sebastian Nurse LAB CYTOLOGY ORDERABLES Final Result EXTERNAL LAB documented in this encounter Visit Diagnoses Not on filedocumented in this encounter
--- OUTSIDE RECORDS SUMMARY | 2025-04-11 14:58 | XMS_ITS | Encounter Summary ---
Author Organization [facility] Address [address] [place] [address] Care Team Providers Care Resizer Operator Name Role Phone Unavailable Primary Care Provider Unavailabl e Encounter Details Date Type Department Care Team (Late Contact Info) Description 06/11/2023 Abstract [facility] [address] [place] [address] Kristan Fish PA [address] [place] [address] Dr [place], [facility]11 Social History Tobacco Use Types Packs/Day Years Used Date Smoking Tobacco: Former Cigarettes Tobacco Cessation:Counseling Given: Not Answered Alcohol Use Standard Drinks/Week Comments Never 0 [...] Description 04/18/2025 1:00 PM EDT Routine [facility] [address] [place] [address] Nolan Cortes DO [address] [place] [address] Dr [place], [facility]11 documented as of this encounter Visit Diagnoses Not on filedocumented in this encounter
--- OUTSIDE RECORDS SUMMARY | 2025-04-11 14:58 | XMS_ITS | Encounter Summary ---
Author Organization [facility] Address [address] [place] [address] Care Team Providers Care Sheet Rock Installer Name Role Phone Unavailable Primary Care Provider Unavailabl e Encounter Details Date Type Department Care Team (Late Contact Info) Description 04/24/2023 Abstract [facility] OB [address] [place] [address] Nolan Cortes, [facility] [place], [facility]11 Social History Tobacco Use Types Packs/Day Years [...] Routine [facility] BCP OB [address] [place] [address] Nolan Cortes, DO [address] [place], [facility]11 documented as of this encounter Visit Diagnoses Not on filedocumented in this encounter
--- OUTSIDE RECORDS SUMMARY | 2025-04-11 14:58 | XMS_ITS | Encounter Summary ---
Author Organization [facility] Address [address] [place] [address] Care Team Providers Care Corsetier Name Role Phone Unavailable Primary Care Provider Unavailabl e Encounter Details Date Type Department Care Team (Late Contact Info) Description 04/05/2025 Bamboo flowsheet [facility] OB [address] [place] [address] Nolan Cortes DO [address] [place], [place] [address] Social History Tobacco Use Types Packs/Day Years [...] [address] Nolan Cortes DO [address] [place], [facility]11 documented as of this encounter Visit Diagnoses Not on filedocumented in this encounter
--- OUTSIDE RECORDS SUMMARY | 2025-04-11 14:58 | XMS_ITS | Encounter Summary ---
Author Organization [facility] Address [address] [place] [address] Care Team Providers Care Ditch Rider Name Role Phone Unavailable Primary Care Provider Unavailabl e Encounter Details Date Type Department Care Team (Late Contact Info) Description 12/01/2024 Abstract [facility] B[facility] OB [address] [place] [address] Nolan Cortes DO [address] [place], [facility]11 Social History Tobacco Use Types Packs/Day Years [...] [facility] B[facility] OB [address] [place] [address] Nolan Cortes DO [address] [place] [address] documented as of this encounter Visit Diagnoses Not on filedocumented in this encounter
--- OUTSIDE RECORDS SUMMARY | 2025-04-11 14:58 | XMS_ITS | Encounter Summary ---
Author Organization [facility] Address [address] [place] [address] Care Team Providers Care Hi Teacher Name Role Phone Unavailable Primary Care Provider Unavailabl e Encounter Details Date Type Department Care Team (Late Contact Info) Description 12/02/2024 Abstract [facility] BCP OB [address] [place] [address] Nolan Cortes DO [address] [place], [facility]11 Social History Tobacco Use Types Packs/Day [...]
--- OUTSIDE RECORDS SUMMARY | 2025-04-11 14:58 | XMS_ITS | Encounter Summary ---
Author Organization [facility] Address [address] [place] [address] Care Team Providers Care Acting Section Chief Name Role Phone Unavailable Primary Care Provider Unavailabl e Encounter Details Date Type Department Care Team (Late Contact Info) Description 04/22/2023 Abstract [facility] OB [address] [place] [address] Nolan Cortes, [facility] [place], [facility]11 Social History Tobacco Use Types [...] [address] Nolan Cortes, DO [address] [place], [facility]11 documented as of this encounter Visit Diagnoses Not on filedocumented in this encounter
--- OUTSIDE RECORDS SUMMARY | 2025-04-11 14:58 | XMS_ITS | Encounter Summary ---
Author Organization [facility] Address [address] [place] [address] Care Team Providers Care Anaesthesiologist Name Role Phone Unavailable Primary Care Provider Unavailabl e Encounter Details Date Type Department Care Team (Late Contact Info) Description 04/28/2024 Clinisync Result Encounter [facility] External Department Unsolicited Thomas Cortes, [address] [place] [address] Social History Tobacco Use Types Packs/Day Years [...] PM EDT Routine [facility] B[facility] OB [address] [facility] [facility] [place] [phone] Thomas Cortes[address] [place] [address] documented as of this encounter Procedures Procedure Name Priority Date/Time Associated Diagnosis Comments US PELVIS W/ TRANSVAGINAL 04/28/2024 1:16 PM EDT documented in this encounter Results * US PELVIS W/ TRANSVAGINAL (04/28/2024 1:16 PM EDT) Anatomical Region Laterality Modality Other 04/28/2024 1:16 PM EDT Narrative 04/28/2024 1:19 PM EDT [address] [address] Ultrasound Report Signed Patient: KIRA PURVIS MR#: [id number] : 1990 Acct:[id number] Age/Sex: 33 / F ADM Date: 04/27/24 Loc: US Attending Dr: Thomas Cortes D.O. Ordering Physician: Thomas Cortes D.O. Date of Service: 04/27/24 Procedure(s): US pelvis w/ transvaginal Accession Number(s): [id number] cc: Thomas Cortes D.O.; Physician,Non-Staff Nikky [address] [address] Patient Name: KIRA PURVIS MRN: [facility]:[id number] date: 1990 Sex: F Assigned Patient Location: US Current Patient Location: Accession/Order Number: [id number] Exam Date: 04/27/2024 14:00 Report Date: 04/28/2024 13:16 At the request of: THOMAS CORTES Procedure: US pelvis w/ transvaginal EXAM: Pelvic ultrasound HISTORY: . Irregular Bleeding N92.6 . COMPARISON: None. TECHNIQUE: Transabdominal and transvaginal scanning was performed FINDINGS: Thinning of the pelvis demonstrates a retroflexed uterus measuring 8.7 x 3.6 x 5.7 cm. Endometrial complex measures 8 mm. Right ovary measured 3.5 x 2.4 x 2.8 cm. Color-flow is noted. Follicles were noted. Several follicles were noted in a peripheral location. Left ovary measures 3.4 x 2 x 2.8 cm. Color-flow is noted. Follicles are noted. Several follicles are in a peripheral location. No fluid was noted in the cul-de-sac. US/US pelvis w/ transvaginal IMPRESSION: 1. Normal-appearing retroflexed uterus and endometrial complex. 2. Several follicles in both ovaries. Several follicles were noted peripheral location. Findings could be due to early cystic ovarian syndrome. Clinical correlation is suggested. Electronically authenticated by: EMMIE CORLEY Date: 04/28/2024 13:16 Dictated By: Emmie Corley M.D. Signed By: 04/28/24 1319 DD/ 1316 TD/TT: Shell Fisherman: Procedure Note Radiology, Radiologist, - 04/28/2024 [place] [address] Ultrasound Report Signed Patient: KIRA PURVIS LMR#: [id number] : 1990Acct:[id number] Age/Sex: 33 / FADM Date: 04/27/24 Loc: US Attending Dr: Thomas Cortes D.O. Ordering Physician: Thomas Cortes D.O. Date of Service: 04/27/24 Procedure(s): US pelvis w/ transvaginal Accession Number(s): [id number] cc: Thomas Cortes D.O.; Physician,Non-Staff Nikky [place] [id number] Patient Name: KIRA PURVIS MRN: [id number] date: 1990 Sex: F Assigned Patient Location: US Current Patient Location: Accession/Order Number: [id number] Exam Date: 04/27/2024 14:00 Report Date: 04/28/2024 13:16 At the request of: THOMAS CORTES Procedure: US pelvis w/ transvaginal EXAM: Pelvic ultrasound HISTORY: . Irregular Bleeding N92.6 . COMPARISON: None. TECHNIQUE: Transabdominal and transvaginal scanning was performed FINDINGS: Thinning of the pelvis demonstrates a retroflexed uterusmeasuring 8.7 x 3.6 x 5.7 cm. Endometrial complex measures 8 mm. Right ovary measured 3.5 x 2.4 x 2.8 cm. Color-flow is noted. Follicleswere noted. Several follicles were noted in a peripheral location. Left ovary measures 3.4 x 2 x 2.8 cm. Color-flow is noted. Follicles are noted. Several follicles are in a peripheral location. No fluid was noted in the cul-de-sac. US/US pelvis w/ transvaginal IMPRESSION: 1. Normal-appearing retroflexed uterus and endometrial complex. 2. Several follicles in both ovaries. Several follicles were notedperipheral location. Findings could be due to early cystic ovarian syndrome. Clinical correlation is suggested. Electronically authenticated by: EMMIE CORLEY Date: 04/28/2024 13:16 Dictated By: Emmie Corley M.D. Signed By:04/28/24 1319 DD/ 1316 TD/TT: Shell Fisherman: us Thomas Sebastian DO [facility] Final Result documented in this encounter Visit Diagnoses Not on filedocumented in this encounter
--- OUTSIDE RECORDS SUMMARY | 2025-04-11 14:58 | XMS_ITS | Clinical Summary ---
Author Organization [facility] Healthcare Address [address] [place] [address] Care Team Providers Care Intake Counselor Name Role Phone Unavailable Primary Care Provider Unavailabl e Allergies No known active allergies Medications Alcohol Swabs (Alcohol Prep Pad) 70 % padsIndications:Ge stational diabetes mellitus (GDM), antepartum, gestational diabetes method of control unspecified,Elevat ed glucose tolerance test Apply 1 Pad topically Daily Use four times daily to check FSBS. 150 each 3 5 Active MV & Min w/FA-DHA ( Adult Gummy/DHA/FA) 0.4-25 MG chewable tablet Chew 1 each Daily 5 Active aspirin 81 MG EC tablet Take 81 mg by mouth Daily Active ondansetron ODT (Zofran-ODT) 4 MG disintegrating tablet Take 4 mg by mouth every 8 (eight) hours if needed for nausea or vomiting Active Blood Glucose Monitoring Suppl (Accu-Chek Guide Me) w/Device kitIndications:Ges tational diabetes mellitus (GDM), antepartum, gestational diabetes method of control unspecified,Elevat ed glucose tolerance test USE TO CHECK BLOOD GLUCOSE IN THE MORNING PRIOR TO BREAKFAST AND ONE HOUR AFTER EACH MEAL FOR A TOTAL OF FOUR TIMES DAILY 1 kit 5 Active metFORMIN, OSM, (Fortamet) 1000 MG 24 hr tablet Take 1,000 mg by mouth in the evening. Take with meals Do not crush, chew, or split. 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 04/18/2023 Exposure to cat feces 04/18/2023 Gestational diabetes 04/18/2023 Nausea 04/18/2023 History of delivery 02/24/2023 Estimated Date of Delivery Comme nts Yes 06/24/2025 Based on last me nstrual period of 09/17/2024 Encounters Date Type Department Care Team Description 04/11/2025 Travel 04/05/2025 1:50 PM EDT [facility]ine [facility] [address] [facility] [address] Thomas Cortes, Third trimester ; 28 weeks gestation of ; Gestational diabetes mellitus (GDM), antepartum, gestational diabetes method of control unspecified; H/O: hypertension 04/05/2025 Bamboo flowsheet [facility] [address] [place] [address] Thomas Cortes, 03/14/2025 1:50 PM EDT Routine [facility] [address] [facility] [place] [address] Thomas Cortes, Second trimester ; 25 weeks gestation of 03/14/2025 Bamboo flowsheet [facility] [address] [place] [address] Thomas Cortes, 03/08/2025 Telephone [facility] [address] [place] [address] Suze Hendrix MA 03/07/2025 Clinisync Result Encounter [facility] External Department Unsolicited Thomas Cortes, 02/21/2025 1:20 PM EDT Routine [facility] OB [address] [place] [address] Thomas Cortes, Second trimester ; 22 weeks gestation of 02/21/2025 Bamboo flowsheet [facility] OB [address] [place] [address] Thomas Cortes, 02/18/2025 Refill [facility] [address] [facility] [place] [address] Thomas Cortes, Gestational diabetes mellitus (GDM), antepartum, gestational diabetes method of control unspecified; Elevated glucose tolerance test 02/17/2025 Telephone [facility] [place] [address] [place] [address] Suze Hendrix MA 02/14/2025 1:00 PM EDT Ancillary Procedure [facility] [address] [address] [place] [address] Screening, , for anatomic survey 02/14/2025 Travel 02/07/2025 Clinisync Result Encounter NOMS External Department Unsolicited Thomas Cortes, 02/07/2025 Travel 02/01/2025 Abstract [facility] [address] [place] [address] Thomas Cortes, DO 02/01/2025 Telephone [facility] [address] [address] [place] [address] Thomas Cortes, DO 01/25/[address] [facility] [address] [place] [address] Suze Hendrix MA 01/24/2025 11:20 AM EDT Routine [facility] [address] [address] [address] [place] [address] Thomas Cortes, 18 weeks gestation of ; Second trimester 01/24/2025 External Result Encounter [facility] External Department Unsolicited Thomas Cortes, DO 01/24/[address] [facility] [address] [place] [address] Suze Hendrix MA 01/22/2025 Clinisync Result Encounter NOMS External Department Unsolicited Thomas Cortes, DO 01/17/2025 Travel 01/10/2025 Telephone [facility] OB [address] [place], [place] [address] [address] Thomas Cortes DO from Last 3 Months Family History Medical History Relation Name Comments No Known Problems Brother Diabetes Mother multiple gestation: family members in general Other mutiple gestation Other No Known Problems Sister Relation Name Status Comments Brother Father Alive Mother Alive Other Sister Social History Tobacco Use Types Packs/Day Years [...] on file Sexual Orientation Not on file Last Filed Vital Signs Vital Sign Reading Time Taken Comments Blood Pressure 110/72 04/05/2025 2:05 PM EDT Pulse - - Temperature - - Respiratory Rate - - Oxygen Saturation - - Inhaled Oxygen Concentration - - Weight 135 kg (297 lb) 04/05/2025 2:05 PM EDT Height 170.2 cm (5' 7 ) 09/09/2023 1:05 PM EDT Body Mass Index 46.52 09/09/2023 1:05 PM EDT Plan of Treatment Upcoming Encounters Date Type Department Care Team (Late st Contact Info) Description 04/18/2025 1:00 PM EDT Routine [facility] [address] [facility] [place] [id number] hTomas Cortes, DO [address] [place] [address] [place] [address] Procedures Procedure Name Priority Date/Time Associated Diagnosis Comments POCT URINALYSIS DIPSTICK Routine 04/05/2025 2:19 PM EDT Third trimester US OB INCOMPLETE ANATOMY 03/07/2025 12:42 PM EDT POCT URINALYSIS DIPSTICK Routine 02/21/2025 2:08 PM EDT Second trimester US OB 14+ WEEKS ANATOMY SCAN Routine 02/14/2025 2:03 PM EDT Screening, , for anatomic survey AFP, SERUM, OPEN SPINA BIFIDA Routine 02/07/2025 11:20 AM EDT RECURRENT VAGINITIS (HTRX) Routine 01/24/2025 3:53 PM EDT POCT URINALYSIS DIPSTICK Routine 01/24/2025 11:47 AM EDT 18 weeks gestation of Second trimester GLUCOSE TOLERANCE 3 HOUR Routine 01/22/2025 8:19 AM EDT from Last 3 Months Results * (ABNORMAL) POCT urinalysis dipstick manually resulted (04/05/2025 2:19 PM EDT) Only the most recent of3 resultswithin the time period is included. Color, UA Yellow Clarity, UA Clear Glucose, [...] - Positive Urine 04/05/2025 2:19 PM EDT us Thomas Sebastian DO POINT OF CARE TEST ENTER/EDIT OR DERABLES Final Result * US OB INCOMPLETE ANATOMY (03/07/2025 12:42 PM EDT) Anatomical Region Laterality Modality Other 03/07/2025 12:4 2 PM EDT Narrative 03/07/2025 12:44 PM EDT The [address] [address] Ultrasound Report Signed Patient: CHARLENE PURVIS MR#: [id number] : 1990 Acct:[id number] Age/Sex: 34 / F ADM Date: 03/05/25 Loc: US Attending Dr: Thomas Cortes D.O. Ordering Physician: Thomas Cortes D.O. Date of Service: 03/05/25 Procedure(s): US OB incomplete anatomy Accession Number(s): [id number] cc: Thomas Cortes D.O.; Physician,Non-Staff Nikky The [address] [id number] Patient Name: CHARLENE PURVIS MRN: [id number] date: 1990 Sex: F Assigned Patient Location: US Current Patient Location: Accession/Order Number: [id number] Exam Date: 03/07/2025 12:39 Report Date: 03/07/2025 12:42 At the request of: THOMAS CORTES DO Procedure: US OB incomplete anatomy OB limited. Next Reason for exam: Follow-up anatomy. COMPARISON: No anatomy survey is provided for direct comparison. TECHNIQUE: Transabdominal imaging of the gravid uterus was obtained. FINDINGS: Single live intrauterine with a heart rate 1 53 bpm. positioning is breech. Kidneys are visualized and appear unremarkable. Four-chamber heart is seen. Outflow tracts could not be visualized. US/US OB incomplete anatomy IMPRESSION: Kidneys and four-chamber heart are seen on today's study. Outflow tracts cannot be visualized. Impression dictated by: Jacinto Rivas Jr., D.O. 03/07/2025 12:42 PM Dictation Location: [place] [address] Electronically authenticated by: [id number] Y Date: 03/07/2025 12:42 Dictated By: Jacinto Rivas M.D. Signed By: 03/07/25 1244 DD/ 1242 TD/TT: Project Manager: Procedure Note Radiology, Radiologist, - 03/07/[address] [address] Ultrasound Report Signed Patient: CHARLENE PURVIS LMR#: [id number] : 1990Acct:[id number] Age/Sex: 34 / FADM Date: 03/05/25 Loc: US Attending Dr: Thomas Cortes D.O. Ordering Physician: Thomas Cortes D.O. Date of Service: 03/05/25 Procedure(s): US OB incomplete anatomy Accession Number(s): [id number] cc: Thomas Cortes D.O.; Physician,Non-Staff MTomas [place] [address] Patient Name: CHARLENE PURVIS MRN: [id number] date: 1990 Sex: F Assigned Patient Location: US Current Patient Location: Accession/Order Number: [id number] Exam Date: 03/07/2025 12:39 Report Date: 03/07/2025 12:42 At the request of: THOMAS CORTES DO Procedure: US OB incomplete anatomy OB limited. Next Reason for exam: Follow-up anatomy. COMPARISON: No anatomy survey is provided for direct comparison. TECHNIQUE: Transabdominal imaging of the gravid uterus was obtained. FINDINGS: Single live intrauterine with a heart rate 1 53bpm. positioning is breech. Kidneys are visualized and appearunremarkable. Four-chamber heart is seen. Outflow tracts could not be visualized. US/US OB incomplete anatomy IMPRESSION: Kidneys and four-chamber heart are seen on today's study.Outflow tracts cannot be visualized. Impression dictated by: Jacinto Rivas Jr., D.O. 03/07/2025 12:42 PM Dictation Location: [place] [address] Electronically authenticated by: [id number] Y Date: 2:42 Dictated By: Jacinto Rivas M.D. Signed By:03/07/25 1244 DD/ 1242 TD/TT: Project Manager: us Thomas Cortes DO [facility] Final Result * US OB 14+ weeks anatomy scan (02/14/2025 2:03 PM EDT) Anatomical Region Laterality Modality Body Ultrasound 02/15/2025 11:2 7 PM EDT Narrative 02/15/2025 11:27 PM EDT EXAM: US OB 14+ WEEKS ANATOMY SCAN HISTORY: anatomy. COMPARISON: OB ultrasound 11/26/2024. TECHNIQUE: Two-dimensional transabdominal grayscale ultrasound imaging of the pelvis was performed. Exam limited due to patient body habitus. FINDINGS: Gestation: Single Presentation: Cephalic Cardiac Activity: 138 beats per minute Placental Location: Fundal with no sonographic abnormalities identified. Distance from Placental Tip to Cervix: 4.2 cm Cervical Length: 3.8 cm Amniotic Fluid: Appears adequate MEASUREMENTS: BPD: 5.1 cm EGA: 21 weeks 4 days HC: 18.7 cm EGA: 21 weeks 0 days AC: 16.6 cm EGA: 21 weeks 4 days FL: 3.6 cm EGA: 21 weeks 2 days HC/AC Ratio: 1.13 The gestational age by today's ultrasound is 21 weeks 3 days (+/- 10 days gestation). Estimated Weight: 424 grams, +/- 64 grams ( 0 lb 15 oz). Weight Percentile for gestational age: 45 % ANATOMY C-Spine: Unremarkable T-Spine: Unremarkable L-Spine: Unremarkable Sacrum: Unremarkable Four Chamber Heart: Unremarkable LVOT: Not visualized RVOT: Not visualized Stomach: Unremarkable Kidneys: Not visualized Bladder: Unremarkable Diaphragm: Unremarkable Cord insertion: Unremarkable Cord vessels: Three Lateral Ventricles: Unremarkable Cerebellum: Unremarkable Cisterna Magna: Unremarkable Posterior Fossa: Unremarkable Right Femur: Unremarkable Left Femur: Unremarkable Right Tib/Fib: Unremarkable Left Tib/Fib: Unremarkable Right Rad/Ulnar: Unremarkable Left Rad/Ulnar: Unremarkable Right Humerus: Unremarkable Left Humerus: Unremarkable Nose/Lips: Unremarkable Orbits: Unremarkable IMPRESSION: 1. Single, live intrauterine gestation 21 weeks, 3 days by LMP. Today's ultrasound measurements correlate with a gestational age of 21 weeks 3 days. Estimated weight is 424 grams, +/- 64 grams ( 0 lb 15 oz) which correlates to 45 %. LELA is 06/24/2025. 2. Limited visualization of the outflow tracts and kidneys. A short-term follow-up ultrasound is recommended. Interpreted by: Electronically signed by MONY ARENAS II, MD, PHD at 15-Feb-2025 11:25:23 PM [facility] Procedure Note Mony Arenas MD - 02/15/2025 EXAM: US OB 14+ WEEKS ANATOMY SCAN HISTORY: anatomy. COMPARISON: OB ultrasound 11/26/2024. TECHNIQUE: Two-dimensional transabdominal grayscale ultrasound imaging ofthe pelvis was performed. Exam limited due to patient body habitus. FINDINGS: Gestation: Single Presentation: Cephalic Cardiac Activity: 138 beats per minute Placental Location: Fundal with no sonographic abnormalitiesidentified. Distance from Placental Tip to Cervix: 4.2 cm Cervical Length: 3.8 cm Amniotic Fluid: Appears adequate MEASUREMENTS: BPD: 5.1 cm EGA: 21 weeks 4 days HC: 18.7 cm EGA: 21 weeks 0 days AC: 16.6 cm EGA: 21 weeks 4 days FL: 3.6 cm EGA: 21 weeks 2 days HC/AC Ratio: 1.13 The gestational age by today's ultrasound is 21 weeks 3 days (+/- 10 daysgestation). Estimated Weight: 424 grams, +/- 64 grams ( 0 lb 15 oz). Weight Percentile for gestational age: 45 % ANATOMY C-Spine: Unremarkable T-Spine: Unremarkable L-Spine: Unremarkable Sacrum: Unremarkable Four Chamber Heart: Unremarkable LVOT: Not visualized RVOT: Not visualized Stomach: Unremarkable Kidneys: Not visualized Bladder: Unremarkable Diaphragm: Unremarkable Cord insertion: Unremarkable Cord vessels: Three Lateral Ventricles: Unremarkable Cerebellum: Unremarkable Cisterna Magna: Unremarkable Posterior Fossa: Unremarkable Right Femur: Unremarkable Left Femur: Unremarkable Right Tib/Fib: Unremarkable Left Tib/Fib: Unremarkable Right Rad/Ulnar: Unremarkable Left Rad/Ulnar: Unremarkable Right Humerus: Unremarkable Left Humerus: Unremarkable Nose/Lips: Unremarkable Orbits: Unremarkable IMPRESSION: 1. Single, live intrauterine gestation 21 weeks, 3 days by LMP. Today'sultrasound measurements correlate with a gestational age of 21 weeks 3days. Estimated weight is 424 grams, +/- 64 grams ( 0 lb 15 oz)which correlates to 45 %. LELA is 06/24/2025. 2. Limited visualization of the outflow tracts and kidneys. A [id number] ultrasound is recommended. Interpreted by: Electronically signed by MONY ARENAS II, MD, PHD [id number] 11:25:23 PM [facility] us Thomas Sebastian DO IMG OB US PROCEDURES Final Resul t * AFP, SERUM, OPEN SPINA BIFIDA (02/07/2025 11:20 AM EDT) Pathologist [facility] RESULTS Report . [facility] TEST RESULTS: *Screen Negative* . [facility] GEST. AGE ON COLLECTION DATE 20.4 . weeks [facility] GESTAT. AGE BASED ON LMP . [facility] Comment: Recalculations are not recommended when gestational dating by LMP and ultrasound are within 10 days. [age]A [age] [facility] RACE . [facility] WEIGHT 289 . lbs [facility] INSULIN DEP DIABETES No . [facility] MULTIPLE GESTATION No . [facility] AFP VALUE 34.5 . ng/mL [facility] AFP MOM 0.84 . [facility] [place] 1 [place] [address] . [facility] INTERPRETATION Comment . [facility] Comment: Interpretation: Screen Negative This result is screen negative for OSB. [...] Customer Services to discuss available options. The [employer] recommends amniocentesis be offered to women age 35 and older. COMMENT: Comment . [facility] Comment: Tiffany Shah, Ph.D., [facility] Director References: Available Upon Request. Multiples Of Median Cutoffs For AFP Elevations Steiner 2.5 Black 2.8 IDD 2.0 Twins 4.5 Abbreviation Definitions IDD - Insulin Dep Diabetes OSBR - Open Spina Bifida Risk For further inquiries contact [employer] [facility] at [phone]. This test was developed and its performance characteristics determined by [employer]. It has not been cleared or approved by the Food and Drug Administration. Performed at: [facility] [place], [place] [id number] [employer] Vice President: Rogelio Rice [facility], Phone: [phone] 02/07/2025 11:2 0 AM EDT 02/07/2025 11:34 AM EDT Narrative [facility] - 02/09/2025 12:07 AM EDT N N LMP [id number] 18 N 1 Y 289 N N N N N White/ Thomas Cortes DO LAB BLOOD ORDERABLES Final Resul t ISAAK [facility] * (ABNORMAL) RECURRENT VAGINITIS (HTRX) (01/24/2025 3:53 PM EDT) [facility] ATOPOBIUM VAGINAE 0.000 19.961 - 24.689 ppm 01/25/2025 7:16 AM EDT [facility] ATOPOBIUM VAGINAE Not Detected 19.961 - 24.689 ppm 01/25/2025 7:16 AM EDT [facility] BVAB 2,3 (BACTERIAL VAGINOSIS ASSOCIATED BACTERIA 2, 3); MOBILUNCUS SPP 0.000 19.961 - 24.689 ppm 01/25/2025 7:16 AM EDT [facility] BVAB 2,3 (BACTERIAL VAGINOSIS ASSOCIATED BACTERIA 2, 3); MOBILUNCUS SPP Not Detected 19.961 - 24.689 ppm 01/25/2025 7:16 AM EDT [facility] DEBRA ALBICANS, PARAPSILOSIS, TROPICALIS 0.000 19.961 - 30.770 ppm 01/25/2025 7:16 AM EDT [facility] DEBRA ALBICANS, PARAPSILOSIS, TROPICALIS Not Detected 19.961 - 30.770 ppm 01/25/2025 7:16 AM EDT [facility] DEBRA GLABRATA 0.000 23.000 - 32.138 ppm 01/25/2025 7:16 AM EDT [facility] DEBRA GLABRATA Not Detected 23.000 - 32.138 ppm 01/25/2025 7:16 AM EDT [facility] DEBRA KRUSEI 0.000 23.000 - 32.271 ppm 01/25/2025 7:16 AM EDT [facility] DEBRA KRUSEI Not Detected 23.000 - 32.271 ppm 01/25/2025 7:16 AM EDT [facility] CHLAMYDIA TRACHOMATIS 0.000 23.000 - 31.467 ppm 01/25/2025 7:16 AM EDT [facility] CHLAMYDIA TRACHOMATIS Not Detected 23.000 - 31.467 ppm 01/25/2025 7:16 AM EDT [facility] GARDNERELLA VAGINALIS 31.086(A) 19.961 - 24.689 ppm 01/25/2025 7:16 AM EDT [facility] GARDNERELLA VAGINALIS Detected(A) 19.961 - 24.689 ppm 01/25/2025 7:16 AM EDT [facility] MEGASPHAERA (TYPES 1, 2) 0.000 19.961 - 24.689 ppm 01/25/2025 7:16 AM EDT [facility] MEGASPHAERA (TYPES 1, 2) Not Detected 19.961 - 24.689 ppm 01/25/2025 7:16 AM EDT [facility] NEISSERIA GONORRHOEAE 0.000 23.000 - 32.117 ppm 01/25/2025 7:16 AM EDT [facility] NEISSERIA GONORRHOEAE Not Detected 23.000 - 32.117 ppm 01/25/2025 7:16 AM EDT [facility] TRICHOMONAS VAGINALIS 0.000 23.000 - 32.119 ppm 01/25/2025 7:16 AM EDT [facility] TRICHOMONAS VAGINALIS Not Detected 23.000 - 32.119 ppm 01/25/2025 7:16 AM EDT [facility] MYCOPLASMA GENITALIUM 0.000 19.961 - 24.689 ppm 01/25/2025 7:16 AM EDT [facility] MYCOPLASMA GENITALIUM Not Detected 19.961 - 24.689 ppm 01/25/2025 7:16 AM EDT [facility] Tissue 01/24/2025 3:53 PM EDT 01/25/2025 1:52 AM EDT us Thomas Sebastian DO LAB BLOOD ORDERABLES Final Resul t [facility] [place] [address] * (ABNORMAL) GLUCOSE TOLERANCE 3 HOUR (01/22/2025 8:19 AM EDT) GLUCOSE TOLERANCE 3 HOUR (H) mg/dL [facility] Comment: GLU FAST 142H (<95) Col: 01/22/25 0819 GLU 1HR 235H (<180) Col: 01/22/25 0922 GLU 2HR 214H (<155) Col: 01/22/25 1023 GLU 3HR 174H (<140) Col: 01/22/25 1122 01/22/2025 8:19 AM EDT 01/22/2025 8:21 AM EDT Narrative [facility] - 01/22/2025 11:55 AM EDT us Thomas Sebastian DO LAB BLOOD ORDERABLES Final Resul t [facility] TB from Last 3 Months Insurance
--- OUTSIDE RECORDS SUMMARY | 2025-04-11 14:58 | XMS_ITS | Encounter Summary ---
Author Organization [facility] Address [address] [place] [address] Care Team Providers Care Loss Control Consultant Name Role Phone Unavailable Primary Care Provider Unavailabl e Encounter Details Date Type Department Care Team (Late st Contact Info) Description 11/26/2024 Clinisync Result Encounter [facility] External Department Unsolicited Thomas Cortes, DO [address] [place] [address] Social History Tobacco Use Types Packs/Day Years [...] on file documented as of this encounter Miscellaneous Notes * Result Encounter Note - Danay Ortega LPN - 11/26/2024 9:39 AM EST Order Attached to FS documented in this encounter Plan of Treatment Upcoming Encounters Date Type Department Care Team (Late st Contact Info) Description 04/18/2025 1:00 PM EDT Routine [facility] B[facility] OB [address] [place] [phone] Thomas Cortes, DO [address] [place] [address] documented as of this encounter Procedures Procedure Name Priority Date/Time Associated Diagnosis Comments US OB TRANSVAGINAL 11/26/2024 9: 35 AM EST documented in this encounter Results * US OB TRANSVAGINAL (11/26/2024 9:35 AM EST) Anatomical Region Laterality Modality Other 11/26/2024 9:35 AM EST Narrative 11/26/2024 9:37 AM EST [address] [address] Ultrasound Report Signed Patient: KIRA PURVIS MR#: [id number] : 1990 Acct:[id number] Age/Sex: 34 / F ADM Date: 11/26/24 Loc: US Attending Dr: Thomas Cortes D.O. Ordering Physician: Thomas Cortes D.O. Date of Service: 11/26/24 Procedure(s): US OB transvaginal Accession Number(s): [id number] cc: Thomas Cortes D.O.; Physician,Non-Staff Nikky [address] [address] Patient Name: KIRA PURVIS MRN: [id number] date: 1990 Sex: F Assigned Patient Location: US Current Patient Location: US Accession/Order Number: [id number] Exam Date: 11/26/2024 08:36 Report Date: 11/26/2024 09:35 At the request of: THOMAS CORTES Procedure: US OB transvaginal EXAMINATION: US OB transvaginal HISTORY: Missed Menses COMPARISON: No relevant comparison available. FINDINGS: GESTATIONAL SAC: Present and normal appearing. YOLK SAC: Present and normal appearing. POLE: Present and normal appearing. CARDIAC: Present. UTERUS: Normal size and appearance. OVARIES: Right: Normal. Left: Contains a 1.2 cm rounded isodense area of hypervascularity. Trace amount of free fluid adjacent the ovary. CERVIX: 4.0 cm in length and closed. CUL-DE-SAC: Normal. OTHER: None. AGE BY LMP: 10 weeks 0 days LELA BY LMP: 06/24/2025 AGE BY US CRL: 9 weeks 4 days LELA BY US CRL: 06/27/2025 US/US OB transvaginal IMPRESSION: 1. Single live intrauterine . 2. Corpus lutein cyst versus mass within left ovary. This most likely represents a corpus lutein cyst. Ultrasound follow-up is recommended. Electronically authenticated by: RUBEN DILLON Date: 11/26/2024 09:35 Dictated By: Ruben Dillon M.D. Signed By: 11/26/2437 DD/ TD/TT: Habilitation Assistant: Procedure Note Radiology, Radiologist, - 11/26/2024 [place] [address] Ultrasound Report Signed Patient: KIRA PURVIS LMR#: [id number] : 1990Acct:[id number] Age/Sex: 34 / FADM Date: 11/26/24 Loc: US Attending Dr: Thomas Cortes D.O. Ordering Physician: Thomas Cortes D.O. Date of Service: 11/26/24 Procedure(s): US OB transvaginal Accession Number(s): [id number] cc: Thomas Cortes D.O.; Physician,Non-Staff Nikky The [place] [id number] Patient Name: KIRA PURVIS MRN: [id number] date: 1990 Sex: F Assigned Patient Location: US Current Patient Location: US Accession/Order Number: [id number] Exam Date: 11/26/2024 08:36 Report Date: 11/26/2024 09:35 At the request of: THOMAS CORTES Procedure: US OB transvaginal EXAMINATION: US OB transvaginal HISTORY: Missed Menses COMPARISON: No relevant comparison available. FINDINGS: GESTATIONAL SAC: Present and normal appearing. YOLK SAC: Present and normal appearing. POLE: Present and normal appearing. CARDIAC: Present. UTERUS: Normal size and appearance. OVARIES: Right: Normal. Left: Contains a 1.2 cm rounded isodense area of hypervascularity. Trace amount of free fluid adjacent the ovary. CERVIX: 4.0 cm in length and closed. CUL-DE-SAC: Normal. OTHER: None. AGE BY LMP: 10 weeks 0 days LELA BY LMP: 06/24/2025 AGE BY US CRL: 9 weeks 4 days LELA BY US CRL: 06/27/2025 US/US OB transvaginal IMPRESSION: 1. Single live intrauterine . 2. Corpus lutein cyst versus mass within left ovary. This most likely represents a corpus lutein cyst. Ultrasound follow-up is recommended. Electronically authenticated by: RUBEN DILLON Date: 11/26/2024 09:35 Dictated By: Ruben Dillon M.D. Signed By:11/26/24 0937 DD/ 0935 TD/TT: Habilitation Assistant: us [facility] DO [facility] Final Result documented in this encounter Visit Diagnoses Not on filedocumented in this encounter
[2025-04-11 15:23] VITALS: BP 127/79; PULSE 86
== END 2025-04-11 15:48 | disposition home or self-care (01) ==
LOC: US 14:55 → FBC 14:57
PROVIDERS: Visit Provider Obstetrics & Gynecology
DX: O24.419 Gestational diabetes mellitus in pregnancy, unspecified control (principal); Z86.79 Personal history of other diseases of the circulatory system
CPT/HCPCS: 76818

== ENCOUNTER 2025-04-18 14:51 | Outpatient (OUT) | payer BC, SELFPAY ==
--- OUTSIDE RECORDS SUMMARY | 2025-04-05 13:50 | XMS_ITS | Encounter Summary ---
Author Organization [facility] Address [address] [place] [address] Care Team Providers Care Field Return Repairer Name Role Phone Unavailable Primary Care Provider Unavailabl e Reason for Visit * Reason Comments Routine Visit Encounter Details Date Type Department Care Team (Latest Contact Info) Description 04/05/2025 1:50 PM EDT Routine [facility] [address] [facility] [place] [phone] Nolan Cortes, DO [address] [place], [place] [id number] Third trimester ; 28 weeks gestation of ; Gestational diabetes mellitus (GDM), antepartum, gestational diabetes method of control unspecified; H/O: hypertension Social History Tobacco Use Types Packs/Day Years Used Date Smoking Tobacco: Former Cigarettes Alcohol Use Standard Drinks/Week Comments Never 0 (1 standard drink = 0.6 oz pur e alcohol) Estimated Date of Delivery Comme nts Yes 06/24/2025 Based on last me nstrual period of 09/17/2024 Sex and Gender Information Value Date Recorded Sex Assigned at Not on file Legal Sex Female 11:46 PM EDT Gender Identity Not on file Sexual Orientation Not on file documented as of this encounter Last Filed Vital Signs Vital Sign Reading Time Taken Comments Blood Pressure 110/72 04/05/2025 2:05 PM EDT Pulse - - Temperature - - Respiratory Rate - - Oxygen Saturation - - Inhaled Oxygen Concentration - - Weight 135 kg (297 lb) 04/05/2025 2:05 PM EDT Height - - Body Mass Index 46.52 09/09/2023 1:05 PM EDT documented in this encounter Progress Notes * Grace Arita LPN - 04/05/2025 1:50 PM EDT Reason for Appointment: Patient ID: Charlene Purvis is a 34 y.o. female who presents for Routine Visit Patient presents today for Return OB appointment. MEDICATIONS Current Outpatient Medications Medication Instructions Alcohol Swabs (Alcohol Prep Pad) 70 % pads 1 Pad, Topical, Daily, Use four times daily to check FSBS. aspirin 81 mg, Daily Blood Glucose Monitoring Suppl (Accu-Chek Guide Me) w/Device kit USE TO CHECK BLOOD GLUCOSE IN THE MORNING PRIOR TO BREAKFAST AND ONE HOUR AFTER EACH MEAL FOR A TOTAL OF FOUR TIMES DAILY metFORMIN (OSM) (FORTAMET) 1,000 mg, Daily with evening meal ondansetron ODT (ZOFRAN-ODT) 4 mg, Every 8 hours PRN MV & Min w/FA-DHA ( Adult Gummy/DHA/FA) 0.4-25 MG chewable tablet 1 each, Daily ALLERGIES No Known Allergies PROBLEMS Active [...] Morbid obesity with BMI of 40.0-44.9, adult ([facility]) HISTORY PAST MEDICAL HISTORY SOCIAL HISTORY Past Medical History: Diagnosis Date Chronic hypertension affecting Exposure to cat feces, sequela Former smoker Gestational diabetes Herpes exposure History of miscarriage Morbid obesity with BMI of 40.0-44.9, adult ([facility]) Social History Tobacco Use Smoking [...] nursing note reviewed. Exam conducted with a clerical and administrative workers present. Vitals: Estimated body mass index is 46.52 kg/m?? as calculated from the following: Height as of 09/09/23: 5' 7 . Weight as of this encounter: 297 lb. BP: 110/72 Patient's last menstrual period was 09/17/2024. ASSESSMENT & PLAN ICD-10-CM 1. Third trimester Z34.93 POCT urinalysis dipstick manually resulted 2. 28 weeks gestation of Z3A.28 Return OB: Patient presents today for a routine obstetrics appointment. Patient is currently 28w4d . Patient states she is doing well but has complaints of being tired due to current . Patient has verbalizes frequent movement. labor precautions was discussed/given and patient was instructed to perform kick counts three times a day. Orders Placed This Encounter Procedures POCT urinalysis dipstick manually resulted Follow Up: Patient is to return to office in 2 week for routine OB appointment. Documented by Grace Arita LPN on behalf of: Nolan Cortes DO documented in this encounter Plan of Treatment Upcoming Encounters Date Type Department Care Team (Late st Contact Info) Description 05/02/2025 10:50 AM EDT Routine [facility] [address] [facility] [place] [address] Kristan Fish PA [address] [place] [address] Scheduled Orders Name Type Priority Associated Diagnoses Orde r Schedule US OB follow up transabdominal approach Imaging Routine Gestational diabetes mellitus (GDM), antepartum, gestational diabetes method of control unspecified H/O: hypertension s9uxmet for 4 Occurrences starting 04/05/2025 until 10/06/2025 US biophysical profile w non stress test Imaging Routine Gestational diabetes mellitus (GDM), antepartum, gestational diabetes method of control unspecified H/O: hypertension Expected: 04/05/2025 (Approximate), Expires: 10/06/2025 documented as of this encounter Procedures Procedure Name Priority Date/Time Associated Diagnosis Comments POCT URINALYSIS DIPSTICK Routine 04/05/2025 2:19 PM EDT Third trimester documented in this encounter Results * (ABNORMAL) POCT urinalysis dipstick manually resulted (04/05/2025 2:19 PM EDT) Color, UA Yellow Clarity, UA Clear Glucose, UA Positive Negative - 2000(110) ++++ mg/dL Comment:100mg/dL Bilirubin, UA Negative Negative - 4(70) +++ mg/dL Ketones, UA Positive Negative - 160(16) ++++ mg/dL Comment:Trace Spec Grav, UA 1.025 1 - 1.03 Blood, UA Negative Negative - 50 Eliceo/mcL pH, UA 6.0 5 - 9 Protein, UA Trace Negative - 2000(20) ++++ mg/dL Urobilinogen, UA 0.2 0.2 - 12 mg/dL Leukocytes, UA Positive Negative - 500+++ Danielle/mcL Comment:small Nitrite, UA Negative Negative - Positive Urine 04/05/2025 2:19 PM EDT Nolan Sebastian DO POINT OF CARE TEST ENTER/EDIT OR DERABLES Final Result documented in this encounter Visit Diagnoses Diagnosis Third trimester state, incidental 28 weeks gestation of Gestational diabetes mellitus (GDM), antepartum, gestational diabetes method of control unspecified H/O: hypertension Personal history of other diseases of circulatory system documented in this encounter
--- NOTE | 2025-04-18 | US_ITS ---
[place] [id number] Patient Name: KIRA CASTELLON MRN: [id number] date: 1990 Sex: F Assigned Patient Location: [facility] Current Patient Location: Accession/Order Number: [id number] Exam Date: 04/18/2025 16:06 Report Date: 04/18/2025 16:07 At the request of: THOMAS FORMAN DO Procedure: US OB BPP w non-stress Ultrasound biophysical profile HISTORY: Gestational diabetes Adequate breathing movement, gross body movement, tone and amniotic fluid volume for total score of 8 out of 8. The amniotic fluid index is 13.5cm within normal limits. The heart rate 159 bpm. US/US OB BPP w non-stress IMPRESSION: Adequate ultrasound biophysical profile Impression dictated by: Harlan Olvera M.D. 04/18/2025 4:07 PM Dictation Location: [place] [address] Electronically authenticated by: [id number] Y Date: 04/18/2025 16:07
--- OUTSIDE RECORDS SUMMARY | 2025-04-18 13:00 | XMS_ITS | Encounter Summary ---
Author Organization [facility] Address [address] [facility] [place] [address] Care Team Providers Care Public Address Technician Name Role Phone Unavailable Primary Care Provider Unavailabl e Reason for Visit * Reason Comments Routine Visit Encounter Details Date Type Department Care Team ([facility] Contact Info) Description 04/18/2025 1:00 PM EDT Routine [facility] OB [address] [facility] [phone] Nolan Cortes, DO [address] [facility] [place] [address] 30 weeks gestation of ; Third trimester Social History Tobacco Use Types Packs/Day Years [...] Morbid obesity with BMI of 40.0-44.9, adult ([facility]) HISTORY PAST MEDICAL HISTORY SOCIAL HISTORY Past Medical History: Diagnosis Date Chronic hypertension affecting Exposure to cat feces, sequela Former smoker Gestational diabetes Herpes exposure History of miscarriage Morbid obesity with BMI of 40.0-44.9, adult ([facility]) Social History Tobacco Use Smoking [...] nursing note reviewed. Exam conducted with a autotransfusionist present. Vitals: Estimated body mass index is [...] and reports they have been good and MFM continues to monitor glucose closely and continues [...] AM EDT Routine [facility] [address] [facility] [address] Kristan Fish PA [address] [facility] [place] [address] documented as of this encounter Procedures Procedure Name Priority Date/Time Associated Diagnosis Comments POCT URINALYSIS DIPSTICK Routine 04/18/2025 1:14 PM EDT 30 weeks gestation of Third trimester documented in this encounter Results [...] Visit Diagnoses Diagnosis 30 weeks gestation of Third trimester state, incidental documented in this encounter
--- OUTSIDE RECORDS SUMMARY | 2025-04-18 14:53 | XMS_ITS | Encounter Summary ---
Author Organization [facility] Address [address] [place] [address] Care Team Providers Care Assembler Final Name Role Phone Unavailable Primary Care Provider Unavailabl e Encounter Details Date Type Department Care Team (Late st Contact Info) Description 11/26/2024 Clinisync Result Encounter [facility] External Department Unsolicited Thomas Cortes DO [address] [place] [address] Social History Tobacco Use Types Packs/Day [...] AM EDT Routine [facility] OB [address] [facility] [place] [address] Kristan Fish PA [address] [facility] [place] [address] [phone] (work) documented as of this encounter Procedures Procedure Name Priority Date/Time Associated Diagnosis Comments US OB TRANSVAGINAL 11/26/2024 9: 35 AM EST documented in this encounter Results * US OB TRANSVAGINAL (11/26/2024 9:35 AM EST) Anatomical Region Laterality Modality Other 11/26/2024 9:35 AM EST Narrative 11/26/2024 9:37 AM EST [address] [address] Ultrasound Report Signed Patient: KIRA PURVIS MR#: [id number] : 1990 Acct:[id number] Age/Sex: 34 / F ADM Date: 11/26/24 Loc: US Attending Dr: Thomas Cortes D.O. Ordering Physician: Thomas Cortes D.O. Date of Service: 11/26/24 Procedure(s): US OB transvaginal Accession Number(s): [id number] cc: Thomas Cortes D.O.; Physician,Non-Staff Nikky [address] [address] Patient Name: KIRA PURVIS MRN: [id number] date: 1990 Sex: F Assigned Patient Location: US Current Patient Location: US Accession/Order Number: [id number] Exam Date: 11/26/2024 08:36 Report Date: 11/26/2024 [...] Dictated By: Ruben Dillon M.D. Signed By: 11/26/24 0937 DD/ TD/TT: Motorcycle Builder: Procedure Note Radiology, Radiologist, MD - 11/26/2024 [place] [address] Ultrasound Report Signed Patient: KIRA PURVIS LMR#: [id number] : 1990Acct:[id number] Age/Sex: 34 / FADM Date: 11/26/24 Loc: US Attending Dr: Thomas Cortes D.O. Ordering Physician: Thomas Cortes D.O. Date of Service: 11/26/24 Procedure(s): US OB transvaginal Accession Number(s): [id number] cc: Thomas Cortes D.O.; Physician,Non-Staff Nikky The [address] [address] Patient Name: KIRA PURVIS MRN: [id number] date: 1990 Sex: F Assigned Patient Location: US Current Patient Location: US Accession/Order Number: [id number] Exam Date: 11/26/2024 08:36 Report Date: 11/26/2024 [...] M.D. Signed By:11/26/24 0937 DD/ 0935 TD/TT: Motorcycle Builder: us [facility] DO [facility] Final Result documented in this encounter Visit Diagnoses Not on filedocumented in this encounter
--- OUTSIDE RECORDS SUMMARY | 2025-04-18 14:53 | XMS_ITS | Encounter Summary ---
Author Organization [facility] Address [address] [place] [address] Care Team Providers Care Tube Man Name Role Phone Unavailable Primary Care Provider Unavailabl e Encounter Details Date Type Department Care Team (Late Contact Info) Description 12/02/2024 Abstract [facility] OB [address] [place] [address] Nolan Cortes DO [address] [place], [facility]11 Social History Tobacco Use Types Packs/Day Years [...] Department Care Team (Late Contact Info) Description 05/02/2025 10:50 AM EDT Routine [facility] OB [address] [facility] [place] [place] [address] Kristan Fish PA [address] [place] [address] documented as of this encounter Visit Diagnoses Not on filedocumented in this encounter
--- OUTSIDE RECORDS SUMMARY | 2025-04-18 14:54 | XMS_ITS | Encounter Summary ---
Author Organization [facility] Address [address] [place] [address] Care Team Providers Care Business Transformation Manager Name Role Phone Unavailable Primary Care Provider Unavailabl e Encounter Details Date Type Department Care Team (Late Contact Info) Description 04/18/2025 Bamboo flowsheet [facility] OB [address] [facility] [place] [address] Nolan Cortes DO [address] [facility] [address] [place], [facility]11 Social History Tobacco Use Types Packs/Day Years [...] AM EDT Routine [facility] OB [address] [facility] [place] [address] Kristan Fish PA [address] [place], [facility]11 documented as of this encounter Visit Diagnoses Not on filedocumented in this encounter
--- OUTSIDE RECORDS SUMMARY | 2025-04-18 14:54 | XMS_ITS | Encounter Summary ---
Author Organization [facility] Address [address] [place] [address] Care Team Providers Care Lvn Name Role Phone Unavailable Primary Care Provider Unavailabl e Encounter Details Date Type Department Care Team (Late Contact Info) Description 04/24/2023 Abstract [facility] OB [address] [facility] [place] [address] Nolan Cortes [address] [place], [facility]11 Social History Tobacco Use Types [...] AM EDT Routine [facility] OB [address] [facility] [place] [address] Kristan Fish PA [address] [place], [facility]11 documented as of this encounter Visit Diagnoses Not on filedocumented in this encounter
--- OUTSIDE RECORDS SUMMARY | 2025-04-18 14:54 | XMS_ITS | Encounter Summary ---
Author Organization [facility] Address [address] [place] [address] Care Team Providers Care Final Inspector Balance Wheel Name Role Phone Unavailable Primary Care Provider Unavailabl e Encounter Details Date Type Department Care Team (Late Contact Info) Description 06/11/2023 Abstract [facility] OB [address] [place] [address] [place] [address] Kristan Fish, PA [address] [place] [address] Dr [place], [facility]11 Social History Tobacco Use Types [...] Description 05/02/2025 10:50 AM EDT Routine [facility] OB [address] [place] [address] [place] [address] Kristan Fish, PA [address] [place] [address] [place] [address] documented as of this encounter Visit Diagnoses Not on filedocumented in this encounter
--- OUTSIDE RECORDS SUMMARY | 2025-04-18 14:54 | XMS_ITS | Encounter Summary ---
Author Organization [facility] Address [address] [place] [address] Care Team Providers Care Product Marketing Intern Name Role Phone Unavailable Primary Care Provider Unavailabl e Encounter Details Date Type Department Care Team (Late Contact Info) Description 04/25/2023 Abstract [facility] OB [address] [facility] [place] [address] Nolan Cortes [address] [place], [facility] [...] AM EDT Routine [facility] OB [address] [facility] [place] [address] Kristan Fish PA [address] [place], [facility]11 documented as of this encounter Visit Diagnoses Not on filedocumented in this encounter
--- OUTSIDE RECORDS SUMMARY | 2025-04-18 14:54 | XMS_ITS | Encounter Summary ---
Author Organization [facility] Address [address] [place] [address] Care Team Providers Care [place] Name Role Phone Unavailable Primary Care Provider Unavailabl e Encounter Details Date Type Department Care Team (Late Contact Info) Description 04/28/2024 Clinisync Result Encounter N[facility] External Department Unsolicited Thomas Cortes, DO [address] [facility] [place] [address] Social History Tobacco Use Types Packs/Day Years [...] AM EDT Routine [facility] OB [address] [facility] [place] [phone] Kristan Fish PA [address] [facility] [place] [address] documented as of this encounter Procedures Procedure Name Priority Date/Time Associated Diagnosis Comments US PELVIS W/ TRANSVAGINAL 04/28/2024 1:16 PM EDT documented in this encounter Results * US PELVIS W/ TRANSVAGINAL (04/28/2024 1:16 PM EDT) Anatomical Region Laterality Modality Other 04/28/2024 1:16 PM EDT Narrative 04/28/2024 1:19 PM EDT [address] [address] Ultrasound Report Signed Patient: KIRA PURVIS MR#: [id number] : 1990 Acct:[id number] Age/Sex: 33 / F ADM Date: 04/27/24 Loc: US Attending Dr: Thomas Cortes D.O. Ordering Physician: Thomas Cortes D.O. Date of Service: 04/27/24 Procedure(s): US pelvis w/ transvaginal Accession Number(s): [id number] cc: Thomas Cortes D.O.; Physician,Non-Staff Nikky [address] [address] Patient Name: KIRA PURVIS MRN: [facility]:[id number] date: 1990 Sex: F Assigned Patient Location: US Current Patient Location: Accession/Order Number: [id number] Exam Date: 04/27/2024 14:00 Report Date: 04/28/2024 [...] Signed By: 04/28/24 1319 DD/ 1316 TD/TT: Folding Machine Operator: Procedure Note Radiology, Radiologist, MD - 04/28/2024 [place] [address] Ultrasound Report Signed Patient: KIRA PURVIS LMR#: [id number] : 1990Acct:[id number] Age/Sex: 33 / FADM Date: 04/27/24 Loc: US Attending Dr: Thomas Cortes D.O. Ordering Physician: Thomas Cortes D.O. Date of Service: 04/27/24 Procedure(s): US pelvis w/ transvaginal Accession Number(s): [id number] cc: Thomas Cortes D.O.; Physician,Non-Staff Nikky The [place] [id number] Patient Name: KIRA PURVIS MRN: [id number] date: 1990 Sex: F Assigned Patient Location: US Current Patient Location: Accession/Order Number: [id number] Exam Date: 04/27/2024 14:00 Report Date: 04/28/2024 [...] M.D. Signed By:04/28/24 1319 DD/ 1316 TD/TT: Folding Machine Operator: us Thomas Sebastian DO [facility] Final Result documented in this encounter Visit Diagnoses Not on filedocumented in this encounter
--- OUTSIDE RECORDS SUMMARY | 2025-04-18 14:54 | XMS_ITS | Encounter Summary ---
Author Organization [facility] Address [address] [place] [address] Care Team Providers Care Bank And Savings Securities Trader Name Role Phone Unavailable Primary Care Provider Unavailabl e Encounter Details Date Type Department Care Team (Late Contact Info) Description 03/26/2024 Orders Only [facility] OB [address] [place] [address] [place] [address] Bertha Quevedo LPN [address] [facility] [address] [facility] [address] [facility]11 Social History Tobacco Use Types Packs/Day [...] Description 05/02/2025 10:50 AM EDT Routine [facility] OB [address] [facility] [place] [address] Kristan Fish PA [address] [facility] [place] [address] documented as of this encounter Procedures [...]
--- OUTSIDE RECORDS SUMMARY | 2025-04-18 14:54 | XMS_ITS | Encounter Summary ---
Author Organization [facility] Address [address] [place] [address] Care Team Providers Care Salesperson Furniture Name Role Phone Unavailable Primary Care Provider Unavailabl e Encounter Details Date Type Department Care Team (Late st Contact Info) Description 04/21/[address] [facility] OB [address] [facility] [place] [phone] Nolan Cortes DO [address] [facility] [address] [place], [facility]11 Social History Tobacco Use Types [...] Description 05/02/2025 10:50 AM EDT Routine [facility] OB [address] [place] [address] [place] [address] Kristan Fish PA [address] [facility] [address] [place], [place] [phone] documented as of this encounter Visit Diagnoses Not on filedocumented in this encounter
--- OUTSIDE RECORDS SUMMARY | 2025-04-18 14:54 | XMS_ITS | Encounter Summary ---
Author Organization [facility] Address [address] [place] [address] Care Team Providers Care Inner Tube Cutter Name Role Phone Unavailable Primary Care Provider Unavailabl e Encounter Details Date Type Department Care Team (Late st Contact Info) Description 04/14/2023 Abstract [facility] OB [address] [facility] [place] [phone] Nolan Cortes DO [address] [facility] [address] [place], [facility]11 Social History Tobacco Use Types Packs/Day Years [...] Description 05/02/2025 10:50 AM EDT Routine [facility] OB [address] [facility] [place] [address] Kristan Fish PA [address] [facility] [address] [place], [place] [address] documented as of this encounter Visit Diagnoses Not on filedocumented in this encounter
--- OUTSIDE RECORDS SUMMARY | 2025-04-18 14:54 | XMS_ITS | Encounter Summary ---
Author Organization [facility] Address [address] [place] [address] Care Team Providers Care Package Delivery Room Service Runner Name Role Phone Unavailable Primary Care Provider Unavailabl e Encounter Details Date Type Department Care Team (Late Contact Info) Description 12/01/2024 Abstract [facility] OB [address] [place] [address] Nolan Cortes [address] [place], [facility]11 Social History Tobacco Use Types Packs/Day [...] AM EDT Routine [facility] OB [address] [facility] [place] [address] Kristan Fish PA [address] [place] [address] documented as of this encounter Visit Diagnoses Not on filedocumented in this encounter
--- OUTSIDE RECORDS SUMMARY | 2025-04-18 14:54 | XMS_ITS | Encounter Summary ---
Author Organization [facility] Address [address] [place] [address] Care Team Providers Care Demonstrator Electric Gas Appliances Name Role Phone Unavailable Primary Care Provider Unavailabl e Encounter Details Date Type Department Care Team (Late Contact Info) Description 02/01/2025 Abstract [facility] OB [address] [place] [address] Nolan Cortes [address] [place], [facility]11 Social History Tobacco Use Types Packs/Day [...] AM EDT Routine [facility] OB [address] [facility] [place] [address] Kristan Fish PA [address] [place] [address] documented as of this encounter Visit Diagnoses Not on filedocumented in this encounter
--- OUTSIDE RECORDS SUMMARY | 2025-04-18 14:54 | XMS_ITS | Clinical Summary ---
Demographics Address [address] [place] [address] Mobile Phone Home Phone Email Address Email Address Preferred Language Setswana Marital Status Confucianism Affiliation Unknown Race White Ethnic Group Not or Lati no Author Organization [employer] tem Address [id number] [address] [place] [address] Support Name Relationship Address Phone Dariusz Purvis Emergency Contact [address] [place] [address] Sravani Villasenor Personal Relationship [address] [place] [address] Laura Cope Personal Relationship Unknown [phone] Care Team Providers Care Film Librarian Name Role Phone Eli Azul MD Primary [...] Team Description 04/01/2025 Telephone Maternal- Medicine at [facility] [address] [place] [address] Violet Lopez RN 03/23/2025 10:30 AM EDT Telemedicine Maternal- Medicine at [facility] [address] [place] [address] Iman Hall, SPINNER FIXER-HOST/HOSTESS Gestational diabetes mellitus (GDM) in second trimester controlled on oral hypoglycemic drug 03/23/2025 Travel 03/23/2025 Telephone Maternal- Medicine at [facility] [address] [place] [address] Rufina Hurd, 3D ANIMATOR 03/16/2025 Telephone Maternal- Medicine at [facility] [address] [facility] [place] [address] Violet Lopez, RN 03/15/2025 Orders Only Maternal- Medicine at [facility] [address] [place] [address] Rufina Hurd, 3D ANIMATOR 03/08/2025 1:00 PM EDT Office Visit Maternal- Medicine at [facility] [address] [place] [address] Kenya Acosta, UDAY Gestational diabetes mellitus (GDM) in second trimester controlled on oral hypoglycemic drug (Primary Dx) 03/08/2025 Travel 03/08/2025 Telephone Maternal- Medicine at [facility] [address] [place] [address] Rufina Hurd, TAINA 03/04/2025 Telephone Maternal- Medicine at [facility] [address] [place] [address] Shima Renee, URIEL 03/02/2025 Telephone Maternal- Medicine at [facility] [address] [place] [address] Shima Renee, URIEL 02/24/2025 Telephone Maternal- Medicine at [facility] [address] [place] [address] Jewels Pedersen LD 02/16/2025 9:30 AM EDT Support Visit Maternal- Medicine at [facility] [address] [place] [address] Violet Lopez, RN Alexandria Iraheta RD Diet controlled gestational diabetes mellitus (GDM) in second trimester (Primary Dx); Encounter for diabetes education 02/16/2025 Travel 02/07/2025 Orders Only Maternal- Medicine at [facility] [address] [facility] [place] [address] Ref Prov, Not In System 02/07/2025 Abstract Maternal- Medicine at [facility] [address] [place] [address] Iman Hall APRN-CNP from Last 3 Months [...] 10:30 AM EDT Telemedicine Maternal- Medicine at [facility] [address] [place] [address] Kenya Acosta PA-C [address] [address] Health Maintenance Due Date Last Done Comments [...] ORDERABL ES Final Result Performing Organization Address City/[facility]/ZIP Co de Phone Number MANUALLY TRANSCRIBED RESULTS * Glucose random or fasting- POCT (02/16/2025) External Glucose Fasting Or Random (Fbs) 110 MANUALLY TRANSCRIBED RESULTS 02/16/2025 us Iman Hall SPINNER FIXER-HOST/HOSTESS LAB BLOOD ORDERABLES Fi nal Result MANUALLY [...] OR DERABLES Final Result Performing Organization Address City/[facility] Co de Phone Number MANUALLY TRANSCRIBED RESULTS from Last 3 Months Insurance ANTH Care Teams Film Librarian Relationship Specialty Start Date End Date Eli Azul MD PCP - General Pediatrics 06/23/18
--- OUTSIDE RECORDS SUMMARY | 2025-04-18 14:54 | XMS_ITS | Encounter Summary ---
Demographics Address [address] [place] [address] Mobile Phone Home Phone Email Address Email Address Preferred Language Mosotho Marital Status Islam Affiliation Unknown Race White Ethnic Group Not or Lati no Author Organization [facility] tem Address [id number] [address] [place] [address] Support Name Relationship Address Phone Dariusz Purvis Emergency Contact [address] [place] [address] Sravani Villasenor Personal Relationship [address] [place] [address] Laura Cope Personal Relationship Unknown [phone] Care Team Providers Care Assistant Chief Engineer Name Role Phone Eli Azul MD Primary Care Provider + Encounter Details Date Type Department Care Team (Late st Contact Info) Description 03/15/2025 Orders Only Maternal- Medicine at [facility] [address] [place] [address] Rufina Hurd CMA Social History Tobacco Use [...] 10:30 AM EDT Telemedicine Maternal- Medicine at [facility] [address] [place] [address] Kenya Acosta, PASalomeC [address] [address] documented as of this encounter Visit Diagnoses Not on filedocumented in this encounter Care Teams Assistant Chief Engineer Relationship Specialty Start Date End Date Eli Azul MD PCP - General Pediatrics 06/23/18 documented as of this encounter
--- OUTSIDE RECORDS SUMMARY | 2025-04-18 14:54 | XMS_ITS | Encounter Summary ---
Author Organization [facility] Address [address] [place] [address] Care Team Providers Care Napping Machine Operator Name Role Phone Unavailable Primary Care Provider Unavailabl e Encounter Details Date Type Department Care Team (Late Contact Info) Description 05/20/2023 Abstract [facility] OB [address] [facility] [address] Nolan Cortes [address] Rocael Jeffries, [facility]11 Social History Tobacco Use Types Packs/Day Years [...] AM EDT Routine [facility] OB [address] [facility] [address] Kristan Fish PA [address] [place], [facility]11 documented as of this encounter Visit Diagnoses Not on filedocumented in this encounter
--- OUTSIDE RECORDS SUMMARY | 2025-04-18 14:54 | XMS_ITS | Encounter Summary ---
Author Organization [facility] Address [address] [place] [address] Care Team Providers Care Parquetry Layer Name Role Phone Unavailable Primary Care Provider Unavailabl e Encounter Details Date Type Department Care Team ([facility] Contact Info) Description 07/18/2023 Clinisync Result Encounter [facility] External Department Unsolicited Thomas Cortes DO [address] [facility] [address] Rocael Jeffries, [facility]11 Social History Tobacco Use [...] Upcoming Encounters Date Type Department Care Team ([facility] Contact Info) Description 05/02/2025 10:50 AM EDT Routine [facility] [address] [facility] [address] Kristan Fish PA [address] [facility] [address] [place], [facility]11 documented as of this encounter Procedures Procedure Name Priority Date/Time Associated Diagnosis Comments US OB BPP W NON-STRESS 07/18/2023 3:07 PM EDT documented in this encounter Results * US OB BPP W NON-STRESS (07/18/2023 3:07 PM EDT) Anatomical Region Laterality Modality Other 07/18/2023 3:07 PM EDT Narrative 07/18/2023 3:07 [place] [address] Ultrasound Report Signed Patient: KIRA PURVIS MR#: [id number] 06 : 1990 Acct:[id number] Age/Sex: 32 / F ADM Date: 07/17/23 Loc: US Attending Dr: Thomas Cortes D.O. Ordering Physician: Thomas Cortes D.O. Date of Service: 07/17/23 Procedure(s): US OB BPP w non-stress Accession Number(s): [id number] cc: Thomas Cortes D.O.; Physician,Non-Staff [place] [address] Patient Name: KIRA PURVIS MRN: [facility]:[id number] date: 1990 Sex: F Assigned Patient Location: [facility] Current Patient Location: Accession/Order Number: [id number] Exam Date: 07/17/2023 16:00 Report Date: 07/18/2023 [...] M.D. Signed By: 07/18/231509 DD/ 06 TD/TT: Land Reclamation Specialist: Procedure Note Radiology, Radiologist, - 08/01/2023 [place] [id number] Ultrasound Report Signed Patient: IKRA PURVIS LMR#: [id number] 06 : 1990Acct:[id number] Age/Sex: 32 / FADM Date: 07/17/23 Loc: US Attending Dr: Thomas Cortes D.O. Ordering Physician: Thomas Cortes D.O. Date of Service: 07/17/23 Procedure(s): US OB BPP w non-stress Accession Number(s): [id number] cc: Thomas Cortes D.O.; Physician,Non-Staff [place]ky [place] [id number] Patient Name: KIRA PURVIS MRN: [facility]:[id number] date: 1990 Sex: F Assigned Patient Location: [facility] Current Patient Location: Accession/Order Number: [id number] Exam Date: 07/17/2023 16:00 Report Date: 07/18/2023 [...] Dillon M.D. Signed By:07/18/231509 DD/ 06 TD/TT: Land Reclamation Specialist: us Thomas Siddiquio DO [facility] Final Result documented in this encounter Visit Diagnoses Not on filedocumented in this encounter
--- OUTSIDE RECORDS SUMMARY | 2025-04-18 14:54 | XMS_ITS | Encounter Summary ---
Author Organization [facility] Address [address] [place] [address] Care Team Providers Care Production Bow Maker Name Role Phone Unavailable Primary Care Provider Unavailabl e Encounter Details Date Type Department Care Team (Late Contact Info) Description 04/05/2025 Bamboo flowsheet [facility] OB [address] [facility] [place] [address] Nolan Cortes DO [address] [facility] [address] Rocael Jeffries, [facility]11 Social History Tobacco Use Types Packs/Day Years [...] AM EDT Routine [facility] BCP OB [address] [facility] [place] [address] Kristan Fish PA [address] [place] [address] [place], [facility]11 documented as of this encounter Visit Diagnoses Not on filedocumented in this encounter
--- OUTSIDE RECORDS SUMMARY | 2025-04-18 14:54 | XMS_ITS | Encounter Summary ---
Demographics Address [address] [place] [address] Mobile Phone Home Phone Email Address Email Address Preferred Language Stateless Marital Status Judaism Affiliation Unknown Race White Ethnic Group Not or Lati no Author Organization [facility] [facility] Address [id number] [address] [place] [address] Support Name Relationship Address Phone Dariusz Purvis Emergency Contact [address] [place] [address] Sravani Villasenor Personal Relationship [address] [place] [address] Laura Cope Personal Relationship Unknown [phone] Care Team Providers Care Scalehouse Attendant Name Role Phone Eli Azul MD Primary Care Provider + Encounter Details Date Type Department Care Team (Late st Contact Info) Description 02/07/2025 Orders Only Maternal- Medicine at [facility] [address] [place] [address] Ref Prov, [place] [address] Social History Tobacco Use Types Packs/Day Years [...] 10:30 AM EDT Telemedicine Maternal- Medicine at [facility] [address] [place] [address] Kenya Acosta PA-C [address] [address] documented as of this encounter Procedures Procedure [...] 1:52 PM EST) Anatomical Region Laterality Modality OB-TANKAGE GRINDER Ultrasound us Not In System Ref Prov IMG US ORDERABLES Final R esult documented in this encounter Visit Diagnoses Not on filedocumented in this encounter Care Teams Scalehouse Attendant Relationship Specialty Start Date End Date Eli Azul MD PCP - General Pediatrics 06/23/18 documented as of this encounter
--- OUTSIDE RECORDS SUMMARY | 2025-04-18 14:54 | XMS_ITS | Encounter Summary ---
Author Organization [facility] Address [address] [place] [address] Care Team Providers Care Chief Pharmacist Name Role Phone Unavailable Primary Care Provider Unavailabl e Encounter Details Date Type Department Care Team (Late st Contact Info) Description 04/14/2023 Abstract [facility] OB [address] [facility] [place] [address] Nolan Cortes DO [address] [facility] [address] Rocael Jeffries, [facility]11 Social History Tobacco Use Types Packs/Day [...] Description 05/02/2025 10:50 AM EDT Routine [facility] OB [address] [facility] [place] [address] Kristan Fish PA [address] [facility] [address] [place], [place] [address] documented as of this encounter Visit Diagnoses Not on filedocumented in this encounter
--- OUTSIDE RECORDS SUMMARY | 2025-04-18 14:54 | XMS_ITS | Encounter Summary ---
Author Organization [facility] Address [address] [place] [address] Care Team Providers Care Lead Radiation Therapist Name Role Phone Unavailable Primary Care Provider Unavailabl e Encounter Details Date Type Department Care Team (Late st Contact Info) Description 04/18/2023 Abstract [facility] OB [address] [facility] [place] [address] Nolan Cortes DO [address] [facility] [address] Rocael Jeffries, [facility]11 Social History Tobacco Use Types Packs/Day [...] Description 05/02/2025 10:50 AM EDT Routine [facility] OB [address] [place] [address] [place] [address] Kristan Fish PA [address] [facility] [address] [place], [place] [address] documented as of this encounter Visit Diagnoses Not on filedocumented in this encounter
--- OUTSIDE RECORDS SUMMARY | 2025-04-18 14:54 | XMS_ITS | Encounter Summary ---
Author Organization [facility] Address [address] [place] [address] Care Team Providers Care Wire Sawyer Name Role Phone Unavailable Primary Care Provider Unavailabl e Encounter Details Date Type Department Care Team (Late Contact Info) Description 04/11/2025 Clinisync Result Encounter [facility] External Department Unsolicited Thomas Cortes DO [address] [facility] [address] [place]ries, [place] [address] Social History Tobacco Use Types Packs/Day Years [...] EDT Routine [facility] BCP OB [address] [facility] [place] [address] Kristan Fish PA [address] [facility] [address] [place], [facility]11 documented as of this encounter Procedures Procedure Name Priority Date/Time Associated Diagnosis Comments US OB BPP W NON-STRESS 04/11/2025 4:05 PM EDT documented in this encounter Results * US OB BPP W NON-STRESS (04/11/2025 4:05 PM EDT) Anatomical Region Laterality Modality Other 04/11/2025 4:05 PM EDT Narrative 04/11/2025 4:07 PM EDT [address] [address] Ultrasound Report Signed Patient: KIRA PURVIS MR#: [id number] : 1990 Acct:[id number] Age/Sex: 34 / F ADM Date: 04/11/25 Loc: US Attending Dr: Thomas Cortes D.O. Ordering Physician: Thomas Cortes D.O. Date of Service: 04/11/25 Procedure(s): US OB BPP w non-stress Accession Number(s): [id number] cc: Thomas Cortes D.O.; Physician,Non-Staff [place] [address] Patient Name: KIRA PURVIS MRN: [facility]:[id number] date: 1990 Sex: F Assigned Patient Location: [facility] Current Patient Location: Accession/Order Number: [id number] Exam Date: 04/11/2025 16:04 Report Date: 04/11/2025 16:05 At the request of: THOMAS CORTES DO Procedure: US OB BPP w non-stress Ultrasound biophysical profile HISTORY: Gestational diabetes. History of hypertension Adequate breathing movement, gross body movement, tone and amniotic fluid volume for total score of 8 out of 8. The amniotic fluid index is 10.4cm within normal limits. The heart rate 152 bpm. US/US OB BPP w non-stress IMPRESSION: Adequate ultrasound biophysical profile Impression dictated by: Harlan Olvera M.D. 04/11/2025 4:05 PM Dictation Location: [place] [address] Electronically authenticated by: [id number] Y Date: 04/11/2025 16:05 Dictated By: Harlan Olvera D.O. Signed By: 04/11/25 160 DD/ 04 TD/TT: Weather Strip Installer: Procedure Note Radiology, Radiologist, - 04/11/2025 [place] [address] Ultrasound Report Signed Patient: KIRA PURVIS LMR#: [id number] : 1990Acct:[id number] Age/Sex: 34 / FADM Date: 04/11/25 Loc: US Attending Dr: Thomas Cortes D.O. Ordering Physician: Thomas Cortes D.O. Date of Service: 04/11/25 Procedure(s): US OB BPP w non-stress Accession Number(s): [id number] cc: Thomas Cortes D.O.; Physician,Non-Staff Nikky [place] [id number] Patient Name: KIRA PURVIS MRN: [facility]:[id number] date: 1990 Sex: F Assigned Patient Location: [facility] Current Patient Location: Accession/Order Number: [id number] Exam Date: 04/11/2025 16:04 Report Date: 04/11/2025 16:05 At the request of: THOMAS CORTES DO Procedure: US OB BPP w non-stress Ultrasound biophysical profile HISTORY: Gestational diabetes. History of hypertension Adequate breathing movement, gross body movement, tone and amniotic fluid volume for total score of 8 out of 8. The amniotic fluidindex is 10.4cm within normal limits. The heart rate 152 bpm. US/US OB BPP w non-stress IMPRESSION: Adequate ultrasound biophysical profile Impression dictated by: Harlan Olvera M.D. 04/11/2025 4:05 PM Dictation Location: [place] [address] Electronically authenticated by: [id number] Y Date: 6:05 Dictated By: Harlan Olvera D.O. Signed By:04/11/251606 DD/ 04 TD/TT: Weather Strip Installer: us Thomas Cortes DO [facility] Final Result documented in this encounter Visit Diagnoses Not on filedocumented in this encounter
--- OUTSIDE RECORDS SUMMARY | 2025-04-18 14:54 | XMS_ITS | Encounter Summary ---
Author Organization [facility] Address [address] [place] [address] Care Team Providers Care Crayon Sorting Machine Feeder Name Role Phone Unavailable Primary Care Provider Unavailabl e Encounter Details Date Type Department Care Team (Late Contact Info) Description 04/22/2023 Abstract [facility] OB [address] [facility] [place] [address] Nolan Cortes [address] Rocael Jeffries, [facility]11 Social History Tobacco Use Types Packs/Day [...] AM EDT Routine [facility] BCP OB [address] [facility] [place] [place] [address] Kristan Fish PA [address] [place], [facility]11 documented as of this encounter Visit Diagnoses Not on filedocumented in this encounter
--- OUTSIDE RECORDS SUMMARY | 2025-04-18 14:54 | XMS_ITS | Clinical Summary ---
Author Organization [facility] Address [address] [place] [address] Care Team Providers Care Manufacturing Quality Inspector Name Role Phone Unavailable Primary Care Provider Unavailabl e Allergies No known active allergies Medications Alcohol Swabs (Alcohol Prep Pad) 70 % padsIndications:G estational diabetes mellitus (GDM), antepartum, gestational diabetes method of control unspecified,[place] umm glucose tolerance test Apply 1 Pad topically Daily Use four times daily to check FSBS. 150 each 3 01/25/20 25 Active MV & Min w/FA-DHA ( Adult Gummy/DHA/FA) 0.4-25 MG chewable tablet Chew 1 each Daily 12/30/19 25 Active aspirin 81 MG EC tablet Take 81 mg by mouth Daily Active Blood Glucose Monitoring Suppl (Accu-Chek Guide Me) w/Device kitIndications:Ge stational diabetes mellitus (GDM), antepartum, gestational diabetes method of control unspecified,[place] umm glucose tolerance test USE TO CHECK BLOOD GLUCOSE IN THE MORNING PRIOR TO BREAKFAST AND ONE HOUR AFTER EACH MEAL FOR A TOTAL OF FOUR TIMES DAILY 1 kit 02/22/20 25 Active metFORMIN, OSM, (Fortamet) 1000 MG 24 hr tablet Take 1,000 mg by mouth in the evening. Take with meals Do not crush, chew, or split. 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 becky xt 04/18/2023 Exposure to cat feces 04/18/2023 Gestational diabetes 04/18/2023 Nausea 04/18/2023 History of delivery 02/24/2023 Estimated Date of Delivery Comme nts Yes 06/24/2025 Based on last me nstrual period of 09/17/2024 Encounters Date Type Department Care Team Description 04/18/2025 1:00 PM EDT Routine [facility] [address] [place] [phone] Thomas Cortes, 30 weeks gestation of ; Third trimester 04/18/2025 Bamboo flowsheet [facility] [address] [place] [address] Thomas Cortes, 04/11/2025 Clinisync Result Encounter [facility] External Department Unsolicited Thomas Cortes, 04/11/2025 Travel 04/05/2025 1:50 PM EDT Routine [facility] [address] [place] [address] Thomas Cortes, Third trimester ; 28 weeks gestation of ; Gestational diabetes mellitus (GDM), antepartum, gestational diabetes method of control unspecified; H/O: hypertension 04/05/2025 Bamboo flowsheet [facility] [address] [place] [address] Thomas Cortes, 03/14/2025 1:50 PM EDT Routine [facility] [address] [place] [address] Thomas Cortes, Second trimester ; 25 weeks gestation of 03/14/2025 Bamboo flowsheet [facility] [address] [place] [address] Thomas Cortes, 03/08/2025 Telephone [facility] [address] [place] [address] Suze Hendrix MA 03/07/2025 Clinisync Result Encounter [facility] External Department Unsolicited Thomas Cortes, 02/21/2025 1:20 PM EDT Routine [facility] [address] [place] [address] Thomas Cortes, Second trimester ; 22 weeks gestation of 02/21/2025 Bamboo flowsheet [facility] [address] [place] [address] [place] [address] Thomas Cortes, DO 02/18/2025 Refill [facility] [address] [place] [address] [place] [address] Thomas Cortes, Gestational diabetes mellitus (GDM), antepartum, gestational diabetes method of control unspecified; Elevated glucose tolerance test 02/17/2025 Telephone [facility] [address] [place] [address] [place] [address] Suze Hendrix MA 02/14/2025 1:00 PM EDT Ancillary Procedure [facility] [address] [place] [address] Screening, , for anatomic survey 02/14/2025 Travel 02/07/2025 Clinisync Result Encounter [facility] External Department Unsolicited Thomas Cortes, DO 02/07/2025 Travel 02/01/2025 Abstract [facility] [place] [address] [place] [address] Thomas Cortes, DO 02/01/2025 Telephone [facility] [place] [address] [place] [phone] Thomas Cortes, DO 01/25/20[address] [facility] [address] [place] [address] [phone] Suze Hendrix MA 01/24/2025 11:20 AM EDT Routine [facility] [place] [address] [place] [address] Thomas Cortes, 18 weeks gestation of ; Second trimester 01/24/2025 External Result Encounter [facility] External Department Unsolicited Thomas Cortes, DO 01/24/2025 Telephone [facility] [address] [place] [address] [place] [address] Simeon Suze, MA 01/22/2025 Clinisync Result Encounter [facility] External Department Unsolicited Thomas Cortes DO 01/17/2025 Travel from Last 3 Months Family History Medical [...] 6.4 oz) 04/18/2025 1:11 PM EDT Height 170.2 cm (5' 7 ) 09/09/2023 1:05 PM EDT Body Mass Index 46.27 09/09/2023 1:05 PM EDT Plan of Treatment Upcoming Encounters Date Type Department Care Team (Late st Contact Info) Description 05/02/2025 10:50 AM EDT Routine [facility] [address] [facility] [place] [phone] Kristan Fish PA [address] [place] [address] Procedures Procedure Name Priority Date/Time Associated Diagnosis Comments POCT URINALYSIS DIPSTICK Routine 04/18/2025 1:14 PM EDT 30 weeks gestation of Third trimester US OB BPP W NON-STRESS 04/11/2025 4:05 PM EDT POCT URINALYSIS DIPSTICK Routine 04/05/2025 2:19 PM [...] dipstick manually resulted (04/18/2025 1:14 PM EDT) Only the most recent of4 resultswithin the time period is included. Color, UA Light Yellow Clarity, UA Clear [...] - Positive Urine 04/18/2025 1:14 PM EDT us Thomas Cortes DO POINT OF CARE TEST ENTER/EDIT OR DERABLES Final Result * US OB BPP W NON-STRESS (04/11/2025 4:05 PM EDT) Anatomical Region Laterality Modality Other 04/11/2025 4:05 PM EDT Narrative 04/11/2025 4:07 [place] [address] Ultrasound Report Signed Patient: CHARLENE PURVIS MR#: [id number] : 1990 Acct:[id number] Age/Sex: 34 / F ADM Date: 04/11/25 Loc: US Attending Dr: Thomas Cortes D.O. Ordering Physician: Thomas Cortes D.O. Date of Service: 04/11/25 Procedure(s): US OB BPP w non-stress Accession Number(s): [id number] cc: Thomas Cortes D.O.; Physician,Non-Staff MTomas [address] [address] Patient Name: CHARLENE PURVIS MRN: [id number] date: 1990 Sex: F Assigned Patient Location: [facility] Current Patient Location: Accession/Order Number: [id number] Exam Date: 04/11/2025 16:04 Report Date: 04/11/2025 [...] Olvera M.D. 04/11/2025 4:05 PM Dictation Location: [facility] Electronically authenticated by: [id number] Y Date: 04/11/2025 16:05 Dictated By: Harlan Olvera D.O. Signed By: 04/11/25 1607 DD/ 160 TD/TT: Air Pollution Control Engineer: Procedure Note Radiology, Radiologist, MD - 04/11/2025 [place] [address] Ultrasound Report Signed Patient: CHARLENE PURVIS LMR#: [id number] : 1990Acct:[id number] Age/Sex: 34 / FADM Date: 04/11/25 Loc: US Attending Dr: Thomas Cortes D.O. Ordering Physician: Thomas Cortes D.O. Date of Service: 04/11/25 Procedure(s): US OB BPP w non-stress Accession Number(s): [id number] cc: Thomas Cortes D.O.; Physician,Non-Staff [facility] [place] [phone] Patient Name: CHARLENE PURVIS MRN: [facility]:[id number] date: 1990 Sex: F Assigned Patient Location: [facility] Current Patient Location: Accession/Order Number: [id number] Exam Date: 04/11/2025 16:04 Report Date: 04/11/2025 [...] Olvera M.D. 04/11/2025 4:05 PM Dictation Location: [facility] Electronically authenticated by: [id number] Y Date: 516:05 Dictated By: Harlan Olvera D.O. Signed By:04/11/25 1607 DD/ 1605 TD/TT: Air Pollution Control Engineer: us Thomas Cortes DO [facility] Final Result * US OB INCOMPLETE ANATOMY (03/07/2025 12:42 PM EDT) Anatomical Region Laterality Modality Other 03/07/2025 12:4 2 PM EDT Narrative 03/07/2025 12:44 [place] [address] Ultrasound Report Signed Patient: CHARLENE PURVIS MR#: [id number] : 1990 Acct:[id number] Age/Sex: 34 / F ADM Date: 03/05/25 Loc: US Attending Dr: Thomas Cortes D.O. Ordering Physician: Thomas Cortes D.O. Date of Service: 03/05/25 Procedure(s): US OB incomplete anatomy Accession Number(s): [id number] cc: Thomas Cortes D.O.; Physician,Non-Staff [facility] [place] [phone] Patient Name: CHARLENE PURVIS MRN: [id number] date: 1990 Sex: F Assigned Patient Location: US Current Patient Location: Accession/Order Number: [id number] Exam Date: 03/07/2025 12:39 Report Date: 03/07/2025 [...] Jr., D.O. 03/07/2025 12:42 PM Dictation Location: [place] [address] Electronically authenticated by: [id number] Y Date: 03/07/2025 12:42 Dictated By: Jacinto Rivas M.D. Signed By: 03/07/25 1244 DD/ 1242 TD/TT: Air Pollution Control Engineer: Procedure Note Radiology, Radiologist, MD - 03/07/2025 [place] [address] Ultrasound Report Signed Patient: CHARLENE PURVIS LMR#: [id number] : 1990Acct:[id number] Age/Sex: 34 / FADM Date: 03/05/25 Loc: US Attending Dr: Thomas Cortes D.O. Ordering Physician: Thomas Cortes D.O. Date of Service: 03/05/25 Procedure(s): US OB incomplete anatomy Accession Number(s): [id number] cc: Thomas Cortes D.O.; Physician,Non-Staff [facility] [place] [phone] Patient Name: CHARLENE PURVIS MRN: [facility]:[id number] date: 1990 Sex: F Assigned Patient Location: US Current Patient Location: Accession/Order Number: [id number] Exam Date: 03/07/2025 12:39 Report Date: 03/07/2025 [...] Jr., D.O. 03/07/2025 12:42 PM Dictation Location: [facility]- Electronically authenticated by: [id number] Y Date: 2:42 Dictated By: Jacinto Rivas M.D. Signed By:03/07/25 1244 DD/ 1242 TD/TT: Air Pollution Control Engineer: us Thomas Sebastian DO [facility] Final Result * US [...] II, MD, PHD at 15-Feb-2025 11:25:23 PM [facility] Procedure Note Mony Arenas MD - [...] of the outflow tracts and kidneys. A fadfa-hbsqiyhnfb-ue ultrasound is recommended. Interpreted by: Electronically signed by MONY ARENAS II, MD, PHD [id number] 11:25:23 PM [facility] us Thomas Sebastian DO IMG OB US PROCEDURES Final Resul t * AFP, SERUM, OPEN SPINA BIFIDA (02/07/2025 11:20 AM EDT) RESULTS Report . [facility] TEST RESULTS: *Screen Negative* . [facility] GEST. AGE ON COLLECTION DATE 20.4 . weeks [facility] GESTAT. AGE BASED ON LMP . [facility] Comment: Recalculations are not recommended when gestational dating by LMP and ultrasound are within 10 days. [age] [facility] RACE . [facility] WEIGHT 289 . lbs [facility] INSULIN DEP DIABETES No . [facility] MULTIPLE GESTATION No . H AFP VALUE 34.5 . ng/mL [facility] AFP MOM 0.84 . [facility] [place] [address] [place] [address] . [facility] INTERPRETATION Comment . [facility] Comment: Interpretation: Screen Negative This result is [...] Customer Services to discuss available options. The [place] [employer] recommends amniocentesis be offered to women age 35 and older. COMMENT: Comment . [facility] Comment: Tiffany Shah, Ph.D., [facility] Director References: Available Upon Request. Multiples Of Median Cutoffs For AFP Elevations Steiner 2.5 Black 2.8 IDD 2.0 Twins 4.5 Abbreviation Definitions IDD - Insulin Dep Diabetes OSBR - Open Spina Bifida Risk For further inquiries contact [employer] [facility] at [phone]. This test was developed and its performance characteristics determined by [employer]. It has not been cleared or approved by the Food and Drug Administration. Performed at: - [facility] [address] [place], [place] [id number] Early Childhood Special Educator: Rogelio Rice [facility], Phone: [phone] 02/07/2025 11:2 0 AM EDT 02/07/2025 11:34 AM EDT Narrative [facility] - 02/09/2025 12:07 AM EDT N N LMP [id number] 3 18 N 1 Y 289 N N N N N White/ Thomas Cortes DO LAB BLOOD ORDERABLES Final Resul t [facility] * (ABNORMAL) RECURRENT VAGINITIS (HTRX) (01/24/2025 3:53 PM EDT) ATOPOBIUM VAGINAE 0.000 19.961 - 24.689 ppm 01/25/2025 7:16 AM EDT [facility] ATOPOBIUM VAGINAE Not Detected 19.961 - 24.689 ppm 01/25/2025 7:16 AM EDT [facility] BVAB 2,3 (BACTERIAL VAGINOSIS ASSOCIATED BACTERIA 2, 3); MOBILUNCUS SPP 0.000 19.961 - 24.689 ppm 01/25/2025 7:16 AM EDT [facility] BVAB 2,3 (BACTERIAL VAGINOSIS ASSOCIATED BACTERIA 2, 3); MOBILUNCUS SPP Not Detected 19.961 - 24.689 ppm 01/25/2025 7:16 AM EDT [facility] DEBRA ALBICANS, PARAPSILOSIS, TROPICALIS 0.000 19.961 - 30.770 ppm 01/25/2025 7:16 AM EDT [facility] DEBRA ALBICANS, PARAPSILOSIS, TROPICALIS Not Detected 19.961 - 30.770 ppm 01/25/2025 7:16 AM EDT [facility] DEBRA GLABRATA 0.000 23.000 - 32.138 ppm 01/25/2025 7:16 AM EDT [facility] DEBRA GLABRATA Not Detected 23.000 - 32.138 ppm 01/25/2025 7:16 AM EDT [facility] DEBRA KRUSEI 0.000 23.000 - 32.271 ppm 01/25/2025 7:16 AM EDT [facility] DEBRA KRUSEI Not Detected 23.000 - 32.271 ppm 01/25/2025 7:16 AM EDT [facility] CHLAMYDIA TRACHOMATIS 0.000 23.000 - 31.467 ppm 01/25/2025 7:16 AM EDT [facility] CHLAMYDIA TRACHOMATIS Not Detected 23.000 - 31.467 ppm 01/25/2025 7:16 AM EDT [facility] GARDNERELLA VAGINALIS 31.086(A) 19.961 - 24.689 ppm 01/25/2025 7:16 AM EDT [facility] GARDNERELLA VAGINALIS Detected(A) 19.961 - 24.689 ppm 01/25/2025 7:16 AM EDT [facility] MEGASPHAERA (TYPES 1, 2) 0.000 19.961 - 24.689 ppm 01/25/2025 7:16 AM EDT [facility] MEGASPHAERA (TYPES 1, 2) Not Detected 19.961 - 24.689 ppm 01/25/2025 7:16 AM EDT [facility] NEISSERIA GONORRHOEAE 0.000 23.000 - 32.117 ppm 01/25/2025 7:16 AM EDT [facility] NEISSERIA GONORRHOEAE Not Detected 23.000 - 32.117 ppm 01/25/2025 7:16 AM EDT [facility] TRICHOMONAS VAGINALIS 0.000 23.000 - 32.119 ppm 01/25/2025 7:16 AM EDT [facility] TRICHOMONAS VAGINALIS Not Detected 23.000 - 32.119 ppm 01/25/2025 7:16 AM EDT [facility] MYCOPLASMA GENITALIUM 0.000 19.961 - 24.689 ppm 01/25/2025 7:16 AM EDT [facility] MYCOPLASMA GENITALIUM Not Detected 19.961 - 24.689 ppm 01/25/2025 7:16 AM EDT [facility] Tissue 01/24/2025 3:53 PM EDT 01/25/2025 1:52 AM EDT Thomas Sebastian DO LAB BLOOD ORDERABLES Final Resul t Performing Organization Address City/[facility]/ZIP Co de Phone Number [facility] [address] [place] [address] * (ABNORMAL) GLUCOSE TOLERANCE 3 HOUR (01/22/2025 8:19 AM EDT) Pathologist [facility] GLUCOSE TOLERANCE 3 HOUR (H) mg/dL [facility] Comment: GLU FAST 142H (<95) Col: 01/22/25 0819 GLU 1HR 235H (<180) Col: 01/22/25 0922 GLU 2HR 214H (<155) Col: 01/22/25 1023 GLU 3HR 174H (<140) Col: 01/22/25 1122 01/22/2025 8:19 AM EDT 01/22/2025 8:21 AM EDT Narrative [facility] - 01/22/2025 11:55 AM EDT Thomas Sebastian DO LAB BLOOD ORDERABLES Final Resul t [facility] from Last 3 Months Insurance [facility]
--- OUTSIDE RECORDS SUMMARY | 2025-04-18 14:54 | XMS_ITS | Encounter Summary ---
Author Organization [facility] Address [address] [place] [address] Care Team Providers Care Motor Vehicle Emissions Inspector Name Role Phone Unavailable Primary Care Provider Unavailabl e Encounter Details Date Type Department Care Team (Late Contact Info) Description 08/08/2023 Clinisync Result Encounter [facility] External Department Unsolicited Thomas Cortes DO [address] [facility] [place] [address] Social History Tobacco Use Types Packs/Day Years [...] [address] [facility] [place] [phone] Kristan Fish PA [address] [facility] [address] documented as of this encounter Procedures Procedure Name Priority Date/Time Associated Diagnosis Comments US OB GROWTH 08/08/2023 3:08 PM EDT documented in this encounter Results * US OB GROWTH (08/08/2023 3:08 PM EDT) Anatomical Region Laterality Modality Other 08/08/2023 3:08 PM EDT Narrative 08/08/2023 3:08 [place] [address] Ultrasound Report Signed Patient: KIRA PURVIS MR#: [id number] : 1990 Acct:[id number] Age/Sex: 32 / F ADM Date: 08/07/23 Loc: US Attending Dr: Thomas Cortes D.O. Ordering Physician: Thomas Cortes D.O. Date of Service: 08/07/23 Procedure(s): US OB growth Accession Number(s): [id number] cc: Thomas Cortes D.O.; Physician,Non-Staff [facility] [place] [id number] Patient Name: KIRA PURVIS MRN: [facility]:[id number] date: 1990 Sex: F Assigned Patient Location: [facility] Current Patient Location: US Accession/Order Number: [id number] Exam Date: 08/07/2023 16:05 Report Date: 08/08/2023 [...] with growth detailed above. Electronically authenticated by: RUBEN DILLON Date: 08/08/2023 15:08 Dictated By: Ruben Dillon M.D. Signed By: 08/08/23 1511 DD/ 1508 TD/TT: Pocket Builder: Procedure Note Radiology, Radiologist, - 08/08/2023 [place] [address] Ultrasound Report Signed Patient: KIRA PURVIS LMR#: [id number] : 1990Acct:[id number] Age/Sex: 32 / FADM Date: 08/07/23 Loc: US Attending Dr: Thomas Cortes D.O. Ordering Physician: Thomas Cortes D.O. Date of Service: 08/07/23 Procedure(s): US OB growth Accession Number(s): [id number] cc: Thomas Cortes D.O.; Physician,Non-Staff [place] [place] [address] Patient Name: KIRA PURVSI MRN: [facility]:[id number] date: 1990 Sex: F Assigned Patient Location: [facility] Current Patient Location: Accession/Order Number: [id number] Exam Date: 08/07/2023 16:05 Report Date: 08/08/2023 [...] with growth detailed above. Electronically authenticated by: RUBEN DILLON Date: 08/08/2023 15:08 Dictated By: Ruben Dillon M.D. Signed By:08/08/23 1511 DD/ 1508 TD/TT: Pocket Builder: us Thomas Sebastian DO [facility] Final Result documented in this encounter Visit Diagnoses Not on filedocumented in this encounter
--- OUTSIDE RECORDS SUMMARY | 2025-04-18 14:54 | XMS_ITS | Encounter Summary ---
Author Organization [facility] Address [address] [place] [address] Care Team Providers Care Furniture And Bedding Inspector Name Role Phone Unavailable Primary Care [...] OB [address] [facility] [place] [phone] Kristan Fish PA [address] [facility] [place] [address] documented as of this encounter Visit Diagnoses Not on filedocumented in this encounter
[2025-04-18 15:25] VITALS: BP 126/64; PULSE 88
== END 2025-04-18 15:50 | disposition home or self-care (01) ==
LOC: US 14:51 → FBC 14:53
PROVIDERS: Visit Provider Obstetrics & Gynecology
DX: O24.419 Gestational diabetes mellitus in pregnancy, unspecified control (principal); Z86.79 Personal history of other diseases of the circulatory system
CPT/HCPCS: 76818

== ENCOUNTER 2025-04-25 15:18 | Outpatient (OUT) | payer BC, SELFPAY ==
--- OUTSIDE RECORDS SUMMARY | 2025-04-18 13:00 | XMS_ITS | Encounter Summary ---
Author Organization [facility] Address [address] [facility] [place] [address] Care Team Providers Care Maitre D Name Role Phone Unavailable Primary Care Provider Unavailabl e Reason for Visit * Reason Comments Routine Visit Encounter Details Date Type Department Care Team ([facility] Contact Info) Description 04/18/2025 1:00 PM EDT Routine [facility] OB [address] [place] [phone] Nolan Cortes, DO [address] [facility] [address] [place], [place] [phone] 30 weeks gestation of ([facility]); Third trimester ([facility]) Social History Tobacco Use Types Packs/Day Years [...] Morbid obesity with BMI of 40.0-44.9, adult ([facility]) HISTORY PAST MEDICAL HISTORY SOCIAL HISTORY Past Medical History: Diagnosis Date Chronic hypertension affecting Exposure to cat feces, sequela Former smoker Gestational diabetes Herpes exposure History of miscarriage Morbid obesity with BMI of 40.0-44.9, adult ([facility]) Social History Tobacco Use Smoking status: [...] nursing note reviewed. Exam conducted with a vinyl top installer present. Vitals: Estimated body mass index is [...] AM EDT Routine [facility] OB [address] [facility] [place] [address] Kristan Fish PA [address] [facility] [place] [address] documented as of this encounter Procedures Procedure Name Priority Date/Time Associated Diagnosis Comments POCT URINALYSIS DIPSTICK Routine 04/18/2025 1:14 PM EDT 30 weeks gestation of ([facility]) Third trimester ([facility]) documented in this encounter Results * (ABNORMAL) [...] - Positive Urine 04/18/2025 1:14 PM EDT Noaln Cortes DO POINT OF CARE TEST ENTER/EDIT OR DERABLES Final Result documented in this encounter Visit Diagnoses Diagnosis 30 weeks gestation of ([facility]) Third trimester ([facility]) state, incidental documented in this encounter
--- OUTSIDE RECORDS SUMMARY | 2025-04-19 10:30 | XMS_ITS | Encounter Summary ---
Demographics Address [address] [place] [address] Mobile Phone Home Phone Email Address Email Address Preferred Language Korean Marital Status Oriental Orthodox Affiliation Unknown Race White Ethnic Group Not or Lati no Author Organization [facility] tem Address [id number] [address] [place] [address] Support Name Relationship Address Phone Dariusz Purvis Emergency Contact [address] [place] [address] Sravani Villasenor Personal Relationship [address] [place] [address] Laura Cope Personal Relationship Unknown [phone] Care Team Providers Care Cable Respooler Name Role Phone Eli Azul MD Primary Care Provider + Encounter Details Date Type Department Care Team (Late st Contact Info) Description 04/19/2025 10:30 AM EDT Telemedicine Maternal- Medicine at [facility] [address] [place] [address] Kenya Acosta, PA-C [address] [address] Gestational diabetes mellitus (GDM) in second trimester [...] known hyperglycemia outside of 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, 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 PAST OBSTETRICAL HISTORY: OB History 3 Para 1 Term 1 AB 1 Living 1 SAB 1 IAB Ectopic Multiple Live Births 1 SURGICAL HISTORY: Past Surgical History: Procedure Laterality Date ELBOW SURGERY Right LAPAROSCOPIC CHOLECYSTECTOMY N/A 10/27/2018 Performed by Vince Ardon DO at [facility] SKIN SURGERY mole removed from neck ALLERGIES: [...] TSH 0.495 01/31/2023 No components found for: [facility] Lab Results Component Value Date CREATININE 0.49 [...] Delivery recommendations : - Recommend delivery at [id number] - reviewed with patient - Discuss delivery [...] by e-mail to: or by fax to: [phone] Kenya Acosta PA-C Maternal- Medicine Office phone: [phone] Kenya Acosta PA-C 04/19/25 1051 documented in this encounter Plan of Treatment Not on file documented as of this encounter Visit Diagnoses Diagnosis Gestational diabetes mellitus (GDM) in second trimester controlled on oral hypoglycemic drug- Primary documented in this encounter Care Teams Cable Respooler Relationship Specialty Start Date End Date Eli Azul MD PCP - General Pediatrics 06/23/18 documented as of this encounter
--- NOTE | 2025-04-25 15:20 | US_ITS ---
The [address] [address] Patient Name: KIRA CASTELLON MRN: [id number] date: 1990 Sex: F Assigned Patient Location: [facility] Current Patient Location: Accession/Order Number: [id number] Exam Date: 04/25/2025 21:35 Report Date: 04/25/2025 21:36 At the request of: THOMAS FORMAN DO Procedure: US OB BPP w non-stress Ultrasound biophysical profile HISTORY: Gestational diabetes Adequate breathing movement, gross body movement, tone and amniotic fluid volume for total score of 8 out of 8. The amniotic fluid index is 16.1cm within normal limits. The heart rate 147 bpm. US/US OB BPP w non-stress IMPRESSION: Adequate ultrasound biophysical profile Impression dictated by: Harlan Olvera M.D. 04/25/2025 9:36 PM Dictation Location: [email or web address] Electronically authenticated by: [id number] Y Date: 04/25/2025 21:36
--- OUTSIDE RECORDS SUMMARY | 2025-04-25 15:20 | XMS_ITS | Encounter Summary ---
Author Organization [facility] Address [address] [place] [address] Care Team Providers Care Implementation Technician Name Role Phone Unavailable Primary Care Provider Unavailabl e Encounter Details Date Type Department Care Team (Late st Contact Info) Description 11/26/2024 Clinisync Result Encounter [facility] External Department Unsolicited Thomas Cortes DO [address] [place] [address] Social History Tobacco Use Types Packs/Day [...] [facility] BCP OB [address] [facility] [place] [address] Kristan Fish PA [address] [facility] [place] [address] [phone] (work) documented as of this encounter Procedures Procedure Name Priority Date/Time Associated Diagnosis Comments US OB TRANSVAGINAL 11/26/2024 9: 35 AM EST documented in this encounter Results * US OB TRANSVAGINAL (11/26/2024 9:35 AM EST) Anatomical Region Laterality Modality Other 11/26/2024 9:35 AM EST Narrative 11/26/2024 9:37 AM EST [address] [address] Ultrasound Report Signed Patient: KIRA PURVIS MR#: [id number] : 1990 Acct:[id number] Age/Sex: 34 / F ADM Date: 11/26/24 Loc: US Attending Dr: Thomas Cortes D.O. Ordering Physician: Thomas Cortes D.O. Date of Service: 11/26/24 Procedure(s): US OB transvaginal Accession Number(s): [id number] cc: Thomas Cortes D.O.; Physician,Non-Staff Nikky [address] [address] Patient Name: KIRA PURVIS MRN: [id number] date: 1990 Sex: F Assigned Patient Location: US Current Patient Location: US Accession/Order Number: [id number] Exam Date: 11/26/2024 08:36 Report Date: 11/26/2024 [...] M.D. Signed By: 11/26/24 0937 DD/ TD/TT: Shoemaker Apprentice: Procedure Note Radiology, Radiologist, MD - 11/26/2024 [place] [address] Ultrasound Report Signed Patient: KIRA PURVIS LMR#: [id number] : 1990Acct:[id number] Age/Sex: 34 / FADM Date: 11/26/24 Loc: US Attending Dr: Thomas Cortes D.O. Ordering Physician: Thomas Cortes D.O. Date of Service: 11/26/24 Procedure(s): US OB transvaginal Accession Number(s): [id number] cc: Thomas Cortes D.O.; Physician,Non-Staff Nikky The [address] [address] Patient Name: KIRA PURVIS MRN: [id number] date: 1990 Sex: F Assigned Patient Location: US Current Patient Location: US Accession/Order Number: [id number] Exam Date: 11/26/2024 08:36 Report Date: 11/26/2024 [...] M.D. Signed By:11/26/24 0937 DD/ 0935 TD/TT: Shoemaker Apprentice: us [facility] DO [facility] Final Result documented in this encounter Visit Diagnoses Not on filedocumented in this encounter
--- OUTSIDE RECORDS SUMMARY | 2025-04-25 15:20 | XMS_ITS | Encounter Summary ---
Author Organization [facility] Address [address] [place] [address] Care Team Providers Care Budget Assistant Name Role Phone Unavailable Primary Care Provider Unavailabl e Encounter Details Date Type Department Care Team (Late Contact Info) Description 12/02/2024 Abstract [facility] BCP OB [address] [place] [address] Nolan Cortes DO [address] [place], [facility]11 Social History Tobacco Use Types Packs/Day [...] EDT Routine [facility]CP [facility] [address] [facility] [place] [place] [address] Kristan Fish PA [address] [place] [address] documented as of this encounter Visit Diagnoses Not on filedocumented in this encounter
--- OUTSIDE RECORDS SUMMARY | 2025-04-25 15:21 | XMS_ITS | Encounter Summary ---
Author Organization [facility] Address [address] [place] [address] Care Team Providers Care Forklift Driver Name Role Phone Unavailable Primary Care Provider Unavailabl e Encounter Details Date Type Department Care Team (Late Contact Info) Description 06/11/2023 Abstract [facility] OB [address] [place] [address] [place] [address] Kristan Fish, PA [address] [place] [address] Dr [place], [id number] Social History Tobacco Use Types Packs/Day Years [...] Description 05/02/2025 10:50 AM EDT Routine [facility] OB [address] [place] [address] [place] [address] Kristan Fish, PA [address] [place] [address] [place] [address] documented as of this encounter Visit Diagnoses Not on filedocumented in this encounter
--- OUTSIDE RECORDS SUMMARY | 2025-04-25 15:21 | XMS_ITS | Clinical Summary ---
Demographics Address [address] [place] [address] Mobile Phone Home Phone Email Address Email Address Preferred Language Tamazight Marital Status Congregational Affiliation Unknown Race White Ethnic Group Not or Lati no Author Organization dscovered tem Address [id number] [address] [place] [address] Support Name Relationship Address Phone Dariusz Purvis Emergency Contact [address] [place] [address] Sravani Villasenor Personal Relationship [address] [place] [address] Laura Cope Personal Relationship Unknown [phone] Care Team Providers Care Strategic Account Manager Name Role Phone Eli Azul MD Primary [...] XR (GLUCOPHAGE XR) 500 mg 24 hr tabletIndications: Gestational diabetes mellitus (GDM) in second trimester controlled on oral hypoglycemic drug Take 500mg in am with breakfast and 1000 mg in pm with dinner 60 tablet 4 03/23/20 25 Active Active Problems Problem Noted Date Diagnosed Date Gestational diabetes mellitu s (GDM) in second trimester controlled on oral hypoglycemic drug 03/23/2025 History of delivery 02/24/2023 Estimated Date of Delivery Comme nts Yes 06/24/2025 Based on last me nstrual period of 09/17/2024 Encounters Date Type Department Care Team Description 04/19/2025 10:30 AM EDT Telemedicine Maternal- Medicine at [facility] [address] [place] [address] Kenya Acosta PA-C Gestational diabetes mellitus (GDM) in second trimester controlled on oral hypoglycemic drug (Primary Dx) 04/19/2025 Travel 04/19/2025 Telephone Maternal- Medicine at [facility] [address] [place] [address] Rufina Hurd CMA 04/01/2025 Telephone Maternal- Medicine at [facility] [address] [place] [address] Violet Lopez RN 03/23/2025 10:30 AM EDT Telemedicine Maternal- Medicine at [facility] [address] [place] [address] Iman Hall, RETAIL PRICING COORDINATOR-PREMA Gestational diabetes mellitus (GDM) in second trimester controlled on oral hypoglycemic drug 03/23/2025 Travel 03/23/2025 Telephone Maternal- Medicine at [facility] [address] [place] [address] Rufina Hurd, TAINA 03/16/2025 Telephone Maternal- Medicine at [facility] [address] [place] [address] Violet Lopez RN 03/15/2025 Orders Only Maternal- Medicine at [address] [place] [address] Rufina Hurd, TAINA 03/08/2025 1:00 PM EDT Office Visit Maternal- Medicine at [facility] [address] [place] [address] Kenya Acosta, PASalomeC Gestational diabetes mellitus (GDM) in second trimester controlled on oral hypoglycemic drug (Primary Dx) 03/08/2025 Travel 03/08/2025 Telephone Maternal- Medicine at [address] [place] [address] Rufina Hurd, TAINA 03/04/2025 Telephone Maternal- Medicine at [address] [place] [address] Shima Renee, URIEL 03/02/2025 Telephone Maternal- Medicine at [address] [place] [address] Shima Renee, URIEL 02/24/2025 Telephone Maternal- Medicine at [address] [place] [address] Jewels Pedersen LD 02/16/2025 9:30 AM EDT Support Visit Maternal- Medicine at [address] [place] [place] [address] Violet Lopez, RN Alexandria Ira[address] RD Diet controlled gestational diabetes mellitus (GDM) in second trimester (Primary Dx); Encounter for diabetes education 02/16/2025 Travel 02/07/2025 Orders Only Maternal- Medicine at [address] [address] Ref Prov, Not In System 02/07/2025 Abstract Maternal- Medicine at [address] [place] [address] Iman Hall, RETAIL PRICING COORDINATOR-OFFICE NURSE PRACTITIONER from Last 3 Months Immunizations Immunization Administration [...] 08/25/2021 8:21 PM EDT Plan of Treatment Health Maintenance Due Date Last Done Comments [...] TRANSCRIBED RESULTS Blood 03/08/2025 2:02 PM EDT us Kenya Acosta PA-C POINT OF CARE TEST ORDERABL ES Final Result MANUALLY TRANSCRIBED RESULTS * Glucose random or fasting- POCT (02/16/2025) External Glucose Fasting Or Random (Fbs) 110 MANUALLY TRANSCRIBED RESULTS 02/16/2025 us [facility] BLOOD ORDERABLES Fi nal Result MANUALLY [...] OR DERABLES Final Result MANUALLY TRANSCRIBED RESULTS from Last 3 Months Insurance * Guarantor: Charlene Purvis Account Type Relation to Patient Date of Phone Billing Address Personal/Family Self 1990 [facility] [facility] [address] [place] [phone] [facility] Care Teams Strategic Account Manager Relationship Specialty Start Date End Date Eli Azul MD PCP - General Pediatrics 06/23/18
--- OUTSIDE RECORDS SUMMARY | 2025-04-25 15:21 | XMS_ITS | Encounter Summary ---
Author Organization [facility] Address [address] [place] [address] Care Team Providers Care Middleware Administrator Name Role Phone Unavailable Primary Care Provider Unavailabl e Encounter Details Date Type Department Care Team (Late Contact Info) Description 02/01/2025 Abstract [facility] BCP OB [address] [place] [address] Nolan Cortes DO [address] [place], [...] AM EDT Routine [facility] BCP OB [address] [place] [address] Kristan Fish PA [address] [place] [address] documented as of this encounter Visit Diagnoses Not on filedocumented in this encounter
--- OUTSIDE RECORDS SUMMARY | 2025-04-25 15:21 | XMS_ITS | Encounter Summary ---
Author Organization [facility] Address [address] [place] [address] Care Team Providers Care Merchandise Collector Name Role Phone Unavailable Primary Care Provider Unavailabl e Encounter Details Date Type Department Care Team (Late st Contact Info) Description 04/21/2023 Abstract [facility] OB [address] [facility] [place] [address] Nolan Cortes DO [address] [facility] [address] [place], [facility]11 Social History Tobacco Use Types [...] Description 05/02/2025 10:50 AM EDT Routine [facility] OB [address] [place] [address] [place] [address] Kristan Fish PA [address] [facility] [address] [place], [place] [address] documented as of this encounter Visit Diagnoses Not on filedocumented in this encounter
--- OUTSIDE RECORDS SUMMARY | 2025-04-25 15:21 | XMS_ITS | Encounter Summary ---
Author Organization [facility] Address [address] [place] [place] [address] Care Team Providers Care Spiritual Minister Name Role Phone Unavailable Primary Care Provider Unavailabl e Encounter Details Date Type Department Care Team (Late Contact Info) Description 08/08/2023 Clinisync Result Encounter [facility] External Department Unsolicited Thomas Cortes DO [address] [facility] [place] [address] Social History Tobacco Use Types Packs/Day Years [...] [address] [facility] [place] [phone] Kristan Fish PA [address] [place] [address] documented as of this encounter Procedures Procedure Name Priority Date/Time Associated Diagnosis Comments US OB GROWTH 08/08/2023 3:08 PM EDT documented in this encounter Results * US OB GROWTH (08/08/2023 3:08 PM EDT) Anatomical Region Laterality Modality Other 08/08/2023 3:08 PM EDT Narrative 08/08/2023 3:08 [place] [address] Ultrasound Report Signed Patient: KIRA PURVIS MR#: [id number] : 1990 Acct:[id number] Age/Sex: 32 / F ADM Date: 08/07/23 Loc: US Attending Dr: Thomas Cortes D.O. Ordering Physician: Thomas Cortes D.O. Date of Service: 08/07/23 Procedure(s): US OB growth Accession Number(s): [id number] cc: Thomas Cortes D.O.; Physician,Non-Staff [place] [id number] Patient Name: KIRA PURVIS MRN: [id number] date: 1990 Sex: F Assigned Patient Location: [facility] Current Patient Location: US Accession/Order Number: [id number] Exam Date: 08/07/2023 16:05 Report Date: 08/08/2023 [...] Signed By: 08/08/23 1511 DD/ 1508 TD/TT: Passenger Vessel Chef: Procedure Note Radiology, Radiologist, - 08/08/2023 [place] [address] Ultrasound Report Signed Patient: KIRA PURVIS LMR#: [id number] : 1990Acct:[id number] Age/Sex: 32 / FADM Date: 08/07/23 Loc: US Attending Dr: Thomas Cortes D.O. Ordering Physician: Thomas Cortes D.O. Date of Service: 08/07/23 Procedure(s): US OB growth Accession Number(s): [id number] cc: Thomas Cortes D.O.; Physician,Non-Staff Nikky [place] [address] Patient Name: KIRA PURVIS MRN: [facility]:[id number] date: 1990 Sex: F Assigned Patient Location: [facility] Current Patient Location: Accession/Order Number: [id number] Exam Date: 08/07/2023 16:05 Report Date: 08/08/2023 [...] M.D. Signed By:08/08/23 1511 DD/ 1508 TD/TT: Passenger Vessel Chef: us Thomas Sebastian DO [facility] Final Result documented in this encounter Visit Diagnoses Not on filedocumented in this encounter
--- OUTSIDE RECORDS SUMMARY | 2025-04-25 15:21 | XMS_ITS | Clinical Summary ---
Author Organization [facility] Healthcare Address [address] [place] [address] Care Team Providers Care Driller Helper Name Role Phone Unavailable Primary Care Provider Unavailabl e Allergies No known active allergies Medications Alcohol Swabs (Alcohol Prep Pad) 70 % padsIndications:G estational diabetes mellitus (GDM), antepartum, gestational diabetes method of control unspecified ([facility]),Elevate d glucose tolerance test Apply 1 Pad topically [...] antepartum, gestational diabetes method of control unspecified ([facility]),Elevate d glucose tolerance test USE TO CHECK BLOOD [...] Problem Noted Date Diagnosed Date Benign essential hypertensio n in obstetric context ([facility]) 04/18/2023 Exposure to cat feces 04/18/2023 Gestational diabetes ([facility]) 04/18/2023 Nausea 04/18/2023 History of delivery 02/24/2023 Estimated Date of Delivery Comme nts Yes 06/24/2025 Based on last me nstrual period of 09/17/2024 Encounters Date Type Department Care Team Description 04/18/2025 1:00 PM EDT Routine [facility] B[facility] OB [address] [place] [phone] Thomas Cortes, 30 weeks gestation of ([facility]); Third trimester ([facility]) 04/18/2025 Clinisync Result Encounter NOMS External Department Unsolicited Thomas Cortes, DO 04/18/2025 Bamboo flowsheet [facility] B[facility] OB [address] [place] [phone] Thomas Cortes, 04/11/2025 Clinisync Result Encounter NOMS External Department Unsolicited Thomas Cortes, DO 04/11/2025 Travel 04/05/2025 1:50 PM EDT Routine [facility] BCP OB [address] [place] [address] Thomas Cortes, Third trimester ([facility]); 28 weeks gestation of ([facility]); Gestational diabetes mellitus (GDM), antepartum, gestational diabetes method of control unspecified ([facility]); H/O: hypertension 04/05/2025 Bamboo flowsheet [facility] BCP OB [address] [place] [address] Thomas Cortes, 03/14/2025 1:50 PM EDT Routine [facility] BCP OB [address] [place] [address] Thomas Cortes, Second trimester ([facility]); 25 weeks gestation of ([facility]) 03/14/2025 Bamboo flowsheet [facility] BCP OB [address] [place] [address] Thomas Cortes, 03/08/2025 Telephone [facility] BCP OB [address] [place] [address] Suze Hendrix MA 03/07/2025 Clinisync Result Encounter NOMS External Department Unsolicited Thomas Cortes, 02/21/2025 1:20 PM EDT Routine NOM[facility] [address] [place] [address] Thomas Cortes, Second trimester ([facility]); 22 weeks gestation of ([facility]) 02/21/2025 Bamboo flowsheet NOM[facility] [address] [place] [address] Thomas Cortes, 02/18/[address] [address] [place] [address] Thomas Cortes, Gestational diabetes mellitus (GDM), antepartum, gestational diabetes method of control unspecified ([facility]); Elevated glucose tolerance test 02/17/[address] [address] [place] [address] Suze Hendrix MA 02/14/2025 1:00 PM EDT Ancillary Procedure [facility] [address] [place] [address] Screening, , for anatomic survey ([facility]) 02/14/2025 Travel 02/07/2025 Clinisync Result Encounter NOMS External Department Unsolicited Thomas Cortes, DO 02/07/2025 Travel 02/01/2025 Abstract [facility] [address] [place] [address] Thomas Cortes, DO 02/01/2025 Telephone [facility] [address] [place] [address] Thomas Cortes, DO 01/25/2025 Telephone [facility] [address] [place] [address] Suze Hendrix MA 01/24/2025 11:20 AM EDT Routine N[facility] OB [address] [place] [address] [place] [address] Thomas Cortes DO 18 weeks gestation of ([facility]); Second trimester ([facility]) 01/24/2025 External Result Encounter NOMS External Department Unsolicited Thomas Cortes DO 01/24/2025 Telephone [facility] [address] [place] [address] Suze Hendrix MA from Last 3 Months Family History Medical [...] [facility] OB [facility] [place] [address] Kristan Fish PA [address] [place] [address] [place] [address] Procedures Procedure Name Priority Date/Time Associated Diagnosis Comments US OB BPP W NON-STRESS 04/18/2025 4:07 PM EDT POCT URINALYSIS DIPSTICK Routine 04/18/2025 1:14 PM EDT 30 weeks gestation of ([facility]) Third trimester ([facility]) US OB BPP W NON-STRESS 04/11/2025 4:05 PM EDT POCT URINALYSIS DIPSTICK Routine 04/05/2025 2:19 PM EDT Third trimester ([facility]) US OB INCOMPLETE ANATOMY 03/07/2025 12:42 PM EDT POCT URINALYSIS DIPSTICK Routine 02/21/2025 2:08 PM EDT Second trimester ([facility]) US OB 14+ WEEKS ANATOMY SCAN Routine 02/14/2025 2:03 PM EDT Screening, , for anatomic survey ([facility]) AFP, SERUM, OPEN SPINA BIFIDA Routine 02/07/2025 11:20 AM EDT RECURRENT VAGINITIS (HTRX) Routine 01/24/2025 3:53 PM EDT POCT URINALYSIS DIPSTICK Routine 01/24/2025 11:47 AM EDT 18 weeks gestation of ([facility]) Second trimester ([facility]) from Last 3 Months Results * US OB BPP W NON-STRESS (04/18/2025 4:07 PM EDT) Only the most recent of2 resultswithin the time period is included. Anatomical Region Laterality Modality Other 04/18/2025 4:07 PM EDT Narrative 04/18/2025 4:09 PM EDT The [place] [id number] Ultrasound Report Signed Patient: CHARLENE PURVIS MR#: [id number] : 1990 Acct:[id number] Age/Sex: 34 / F ADM Date: 04/18/25 Loc: US Attending Dr: Thomas Cortes D.O. Ordering Physician: Thomas Cortes D.O. Date of Service: 04/18/25 Procedure(s): US OB BPP w non-stress Accession Number(s): [id number] cc: Thomas Cortes D.O.; Physician,Non-Staff Nikky The [place] [id number] Patient Name: CHARLENE PURVIS MRN: [id number] date: 1990 Sex: F Assigned Patient Location: [facility] Current Patient Location: Accession/Order Number: [id number] Exam Date: 04/18/2025 16:06 Report Date: 04/18/2025 16:07 At the request of: THOMAS CORTES DO Procedure: US OB BPP w non-stress Ultrasound biophysical profile HISTORY: Gestational diabetes Adequate breathing movement, gross body movement, tone and amniotic fluid volume for total score of 8 out of 8. The amniotic fluid index is 13.5cm within normal limits. The heart rate 159 bpm. US/US OB BPP w non-stress IMPRESSION: Adequate ultrasound biophysical profile Impression dictated by: Harlan Olvera M.D. 04/18/2025 4:07 PM Dictation Location: [place] [address] Electronically authenticated by: [id number] Y Date: 04/18/2025 16:07 Dictated By: Harlan Olvera D.O. Signed By: 04/18/25 1609 DD/ 1607 TD/TT: Tip Mender: Procedure Note Radiology, Radiologist, - 04/18/2025 The [place] [id number] Ultrasound Report Signed Patient: CHARLENE PURVIS LMR#: [id number] : 1990Acct:[id number] Age/Sex: 34 / FADM Date: 04/18/25 Loc: US Attending Dr: Thomas Cortes D.O. Ordering Physician: Thomas Cortes D.O. Date of Service: 04/18/25 Procedure(s): US OB BPP w non-stress Accession Number(s): [id number] cc: Thomas Cortes D.O.; Physician,Non-Staff Nikky [place] [address] Patient Name: CHARLENE PURVIS MRN: [id number] date: 1990 Sex: F Assigned Patient Location: [facility] Current Patient Location: Accession/Order Number: [id number] Exam Date: 04/18/2025 16:06 Report Date: 04/18/2025 16:07 At the request of: THOMAS CORTES DO Procedure: US OB BPP w non-stress Ultrasound biophysical profile HISTORY: Gestational diabetes Adequate breathing movement, gross body movement, tone and amniotic fluid volume for total score of 8 out of 8. The amniotic fluidindex is 13.5cm within normal limits. The heart rate 159 bpm. US/US OB BPP w non-stress IMPRESSION: Adequate ultrasound biophysical profile Impression dictated by: Harlan Olvera M.D. 04/18/2025 4:07 PM Dictation Location: [place] [address] Electronically authenticated by: [id number] Y Date: 6:07 Dictated By: Harlan Olvera D.O. Signed By:04/18/25 1609 DD/ 1607 TD/TT: Tip Mender: us Thomas Cortes DO [facility] Final Result * (ABNORMAL) POCT urinalysis dipstick manually resulted [...] PM EDT Narrative 03/07/2025 12:44 [place] [address] Ultrasound Report Signed Patient: CHARLENE PURVIS MR#: [id number] : 1990 Acct:[id number] Age/Sex: 34 / F ADM Date: 03/05/25 Loc: US Attending Dr: Thomas Cortes D.O. Ordering Physician: Thomas Cortes D.O. Date of Service: 03/05/25 Procedure(s): US OB incomplete anatomy Accession Number(s): [id number] cc: Thomas Cortes D.O.; Physician,Non-Staff Nikky [address] [address] Patient Name: CHARLENE PURVIS MRN: [id number] date: 1990 Sex: F Assigned Patient Location: US Current Patient Location: Accession/Order Number: [id number] Exam Date: 03/07/2025 12:39 Report Date: 03/07/2025 [...] Jr., D.O. 03/07/2025 12:42 PM Dictation Location: [place] [address] Electronically authenticated by: [id number] Y Date: 03/07/2025 12:42 Dictated By: Jacinto Rivas M.D. Signed By: 03/07/25 1244 DD/ 1242 TD/TT: Tip Mender: Procedure Note Radiology, Radiologist, MD - 03/07/2025 [place] [address] Ultrasound Report Signed Patient: CHARLENE PURVIS LMR#: [id number] : 1990Acct:[id number] Age/Sex: 34 / FADM Date: 03/05/25 Loc: US Attending Dr: Thomas Cortes D.O. Ordering Physician: Thomas Cortes D.O. Date of Service: 03/05/25 Procedure(s): US OB incomplete anatomy Accession Number(s): [id number] cc: Thomas Cortes D.O.; Physician,Non-Staff Nikky The [address] [address] Patient Name: CHARLENE PURVIS MRN: [id number] date: 1990 Sex: F Assigned Patient Location: US Current Patient Location: Accession/Order Number: [id number] Exam Date: 03/07/2025 12:39 Report Date: 03/07/2025 [...] visualized. Impression dictated by: Jacinto Rivas Jr., DFrancisca 03/07/2025 12:42 PM Dictation Location: [place] Electronically authenticated by: [id number] Y Date: 2:42 Dictated By: Jacinto Rivas M.D. Signed By:03/07/25 1244 DD/ 1242 TD/TT: Tip Mender: us Thomas Cortes DO [facility] Final [...] II, MD, PHD at 15-Feb-2025 11:25:23 PM [facility] Procedure Note Mnoy Arenas MD - 02/15/2025 EXAM: US OB [...] of the outflow tracts and kidneys. A lufhu-rpqyhfzxag-nk ultrasound is recommended. Interpreted by: Electronically signed by MONY ARENAS II, MD, PHD [id number] 11:25:23 PM [facility] us Thomas Sebastian DO IM OB US PROCEDURES Final Resul t * AFP, SERUM, OPEN SPINA BIFIDA (02/07/2025 11:20 AM EDT) RESULTS Report . [facility] TEST RESULTS: *Screen Negative* . [facility] GEST. AGE ON COLLECTION DATE 20.4 . weeks [facility] GESTAT. AGE BASED ON LMP . [facility] Comment: Recalculations are not recommended when gestational dating by LMP and ultrasound are within 10 days. [age] [facility] RACE . [facility] WEIGHT 289 . lbs [facility] INSULIN DEP DIABETES No . [facility] MULTIPLE GESTATION No . [facility] AFP VALUE 34.5 . ng/mL [facility] AFP MOM 0.84 . [facility] [place] [address] . [facility] INTERPRETATION Comment . [facility] Comment: Interpretation: Screen Negative This result is [...] Customer Services to discuss available options. The [employer] recommends amniocentesis be offered to women age 35 and older. COMMENT: Comment . [facility] Comment: Tiffany Shah, Ph.D., [facility] Director References: Available Upon Request. Multiples Of Median Cutoffs For AFP Elevations Steiner 2.5 Black 2.8 IDD 2.0 Twins 4.5 Abbreviation Definitions IDD - Insulin Dep Diabetes OSBR - Open Spina Bifida Risk For further inquiries contact [employer] at [phone]. This test was developed and its performance characteristics determined by [employer]. It has not been cleared or approved by the Food and Drug Administration. Performed at: [facility] [address] [id number] Municipal Clerk: Rogelio Rice [facility], Phone: [phone] 02/07/2025 11:2 0 AM EDT 02/07/2025 11:34 AM EDT Narrative ISAAK - 02/09/2025 12:07 AM EDT N N LMP [id number] 3 18 N 1 Y 289 N N N N N White/ us Thomas Cortes DO LAB BLOOD ORDERABLES Final Resul t [facility] * (ABNORMAL) RECURRENT VAGINITIS (HTRX) (01/24/2025 3:53 PM EDT) ATOPOBIUM VAGINAE 0.000 19.961 - 24.689 ppm 01/25/2025 7:16 AM EDT [facility] ATOPOBIUM VAGINAE Not Detected 19.961 - 24.689 ppm 01/25/2025 7:16 AM EDT [facility] BVAB 2,3 (BACTERIAL VAGINOSIS ASSOCIATED BACTERIA 2, 3); MOBILUNCUS SPP 0.000 19.961 - 24.689 ppm 01/25/2025 7:16 AM EDT [facility] BVAB 2,3 (BACTERIAL VAGINOSIS ASSOCIATED BACTERIA 2, 3); MOBILUNCUS SPP Not Detected 19.961 - 24.689 ppm 01/25/2025 7:16 AM EDT [facility] DEBRA ALBICANS, PARAPSILOSIS, TROPICALIS 0.000 19.961 - 30.770 ppm 01/25/2025 7:16 AM EDT [facility] DEBRA ALBICANS, PARAPSILOSIS, TROPICALIS Not Detected 19.961 - 30.770 ppm 01/25/2025 7:16 AM EDT [facility] DEBRA GLABRATA 0.000 23.000 - 32.138 ppm 01/25/2025 7:16 AM EDT [facility] DEBRA GLABRATA Not Detected 23.000 - 32.138 ppm 01/25/2025 7:16 AM EDT [facility] DEBRA KRUSEI 0.000 23.000 - 32.271 ppm 01/25/2025 7:16 AM EDT [facility] DEBRA KRUSEI Not Detected 23.000 - 32.271 ppm 01/25/2025 7:16 AM EDT [facility] CHLAMYDIA TRACHOMATIS 0.000 23.000 - 31.467 ppm 01/25/2025 7:16 AM EDT [facility] CHLAMYDIA TRACHOMATIS Not Detected 23.000 - 31.467 ppm 01/25/2025 7:16 AM EDT [facility] GARDNERELLA VAGINALIS 31.086(A) 19.961 - 24.689 ppm 01/25/2025 7:16 AM EDT [facility] GARDNERELLA VAGINALIS Detected(A) 19.961 - 24.689 ppm 01/25/2025 7:16 AM EDT [facility] MEGASPHAERA (TYPES 1, 2) 0.000 19.961 - 24.689 ppm 01/25/2025 7:16 AM EDT [facility] MEGASPHAERA (TYPES 1, 2) Not Detected 19.961 - 24.689 ppm 01/25/2025 7:16 AM EDT [facility] NEISSERIA GONORRHOEAE 0.000 23.000 - 32.117 ppm 01/25/2025 7:16 AM EDT [facility] NEISSERIA GONORRHOEAE Not Detected 23.000 - 32.117 ppm 01/25/2025 7:16 AM EDT [facility] TRICHOMONAS VAGINALIS 0.000 23.000 - 32.119 ppm 01/25/2025 7:16 AM EDT [facility] TRICHOMONAS VAGINALIS Not Detected 23.000 - 32.119 ppm 01/25/2025 7:16 AM EDT [facility] MYCOPLASMA GENITALIUM 0.000 19.961 - 24.689 ppm 01/25/2025 7:16 AM EDT [facility] MYCOPLASMA GENITALIUM Not Detected 19.961 - 24.689 ppm 01/25/2025 7:16 AM EDT [facility] Tissue 01/24/2025 3:53 PM EDT 01/25/2025 1:52 AM EDT us Thomas Cortes DO LAB BLOOD ORDERABLES Final Resul t [facility] [address] [place] [address] from Last 3 Months Insurance
--- OUTSIDE RECORDS SUMMARY | 2025-04-25 15:21 | XMS_ITS | Encounter Summary ---
Author Organization [facility] Address [address] [place] [address] Care Team Providers Care Medical Economics Consultant Name Role Phone Unavailable Primary Care [...] Routine [facility] BCP OB [address] [facility] [place] [phone] Kristan Fish PA [address] [facility] [place] [address] documented as of this encounter Visit Diagnoses Not on filedocumented in this encounter
--- OUTSIDE RECORDS SUMMARY | 2025-04-25 15:21 | XMS_ITS | Encounter Summary ---
Author Organization [facility] Address [address] [place] [address] Care Team Providers Care Log Haul Chain Feeder Name Role Phone Unavailable Primary Care Provider Unavailabl e Encounter Details Date Type Department Care Team (Late Contact Info) Description 05/20/2023 Abstract [facility] OB [address] [facility] [place] [address] Nolan Cortes [address] [place], [facility] Social History Tobacco Use Types [...] [place] [address] Kristan Fish PA [address] [place], [facility] documented as of this encounter Visit Diagnoses Not on filedocumented in this encounter
--- OUTSIDE RECORDS SUMMARY | 2025-04-25 15:21 | XMS_ITS | Encounter Summary ---
Demographics Address [address] [place] [address] Mobile Phone Home Phone Email Address Email Address Preferred Language Romansh Marital Status Rastafari Affiliation Unknown Race White Ethnic Group Not or Lati no Author Organization [employer] Address [id number] [address] [place] [address] Support Name Relationship Address Phone Dariusz Purvis Emergency Contact [address] [place] [address] Sravani Villasenor Personal Relationship [address] [place] [address] Laura Cope Personal Relationship Unknown [phone] Care Team Providers Care 3Rd Mate Name Role Phone Eli Azul MD Primary Care Provider + Encounter Details Date Type Department Care Team (Latest Contact Info) Description 04/19/2025 Travel Social History Tobacco Use Types Packs/Day [...] as of this encounter Plan of Treatment Not on file documented as of this encounter Visit Diagnoses Not on filedocumented in this encounter Care Teams 3Rd Mate Relationship Specialty Start Date End Date Eli Azul MD PCP - General Pediatrics 06/23/18 documented as of this encounter
--- OUTSIDE RECORDS SUMMARY | 2025-04-25 15:21 | XMS_ITS | Encounter Summary ---
Author Organization [facility] Address [address] [place] [address] Care Team Providers Care Edge Bander Hand Name Role Phone Unavailable Primary Care Provider Unavailabl e Encounter Details Date Type Department Care Team (Late Contact Info) Description 04/11/2025 Clinisync Result Encounter NOMS External Department Unsolicited Thoams Cortes DO [address] [facility] [address] [place], [place] [address] Social History Tobacco Use Types Packs/Day Years [...] [address] [facility] [place] [address] Kristan Fish PA [address] [facility] [address] [place], [facility] documented as of this encounter Procedures Procedure Name Priority Date/Time Associated Diagnosis Comments US OB BPP W NON-STRESS 04/11/2025 4:05 PM EDT documented in this encounter Results * US OB BPP W NON-STRESS (04/11/2025 4:05 PM EDT) Anatomical Region Laterality Modality Other 04/11/2025 4:05 PM EDT Narrative 04/11/2025 4:07 PM EDT [address] [address] Ultrasound Report Signed Patient: KIRA PURVIS MR#: [id number] : 1990 Acct:[id number] Age/Sex: 34 / F ADM Date: 04/11/25 Loc: US Attending Dr: Thomas Cortes D.O. Ordering Physician: Thomas Cortes D.O. Date of Service: 04/11/25 Procedure(s): US OB BPP w non-stress Accession Number(s): [id number] cc: Thomas Cortes D.O.; Physician,Non-Staff Nikky [place] [address] Patient Name: KIRA PURVIS MRN: [id number] date: 1990 Sex: F Assigned Patient Location: [facility] Current Patient Location: Accession/Order Number: [id number] Exam Date: 04/11/2025 16:04 Report Date: 04/11/2025 [...] Olvera M.D. 04/11/2025 4:05 PM Dictation Location: [place] [address] Electronically authenticated by: [id number] Y Date: 04/11/2025 16:05 Dictated By: Harlan Olvera D.O. Signed By: 04/11/25 160 DD/ 04 TD/TT: Filter Cleaner: Procedure Note Radiology, Radiologist, - 04/11/2025 [place] [address] Ultrasound Report Signed Patient: KIRA PURVIS LMR#: [id number] : 1990Acct:[id number] Age/Sex: 34 / FADM Date: 04/11/25 Loc: US Attending Dr: Thomas Cortes D.O. Ordering Physician: Thomas Cortes D.O. Date of Service: 04/11/25 Procedure(s): US OB BPP w non-stress Accession Number(s): [id number] cc: Thomas Cortes D.O.; Physician,Non-Staff Nikky The [place] [id number] Patient Name: KIRA PURVIS MRN: [facility]:[id number] date: 1990 Sex: F Assigned Patient Location: [facility] Current Patient Location: Accession/Order Number: [id number] Exam Date: 04/11/2025 16:04 Report Date: 04/11/2025 [...] Olvera M.D. 04/11/2025 4:05 PM Dictation Location: [place] [address] Electronically authenticated by: [id number] Y Date: 6:05 Dictated By: Harlan Olvera D.O. Signed By:04/11/251606 DD/ 04 TD/TT: Filter Cleaner: us Thomas Cortes DO [facility] Final Result documented in this encounter Visit Diagnoses Not on filedocumented in this encounter
--- OUTSIDE RECORDS SUMMARY | 2025-04-25 15:21 | XMS_ITS | Encounter Summary ---
Author Organization [facility] Address [address] [place] [address] Care Team Providers Care Store Operations Manager Name Role Phone Unavailable Primary Care Provider Unavailabl e Encounter Details Date Type Department Care Team (Late Contact Info) Description 04/25/2023 Abstract [facility] OB [address] [facility] [place] [address] Nolan Cortes [address] Rocael Jeffries, [facility]11 Social History Tobacco Use Types Packs/Day Years [...] AM EDT Routine [facility] OB [address] [facility] [place] [address] Kristan Fish PA [address] [place], [facility]11 documented as of this encounter Visit Diagnoses Not on filedocumented in this encounter
--- OUTSIDE RECORDS SUMMARY | 2025-04-25 15:21 | XMS_ITS | Encounter Summary ---
Author Organization [facility] Address [address] [place] [address] Care Team Providers Care Net Repairer Name Role Phone Unavailable Primary Care Provider Unavailabl e Encounter Details Date Type Department Care Team (Late Contact Info) Description 03/26/2024 Orders Only [facility] OB [address] [place] [address] [place] [address] Bertha Quevedo LPN [address] [facility]11 Social History Tobacco Use Types Packs/Day [...] Description 05/02/2025 10:50 AM EDT Routine [facility] OB [address] [facility] [place] [address] Kristan Fish PA [address] [facility] [place] [address] documented as of this encounter Procedures [...]
--- OUTSIDE RECORDS SUMMARY | 2025-04-25 15:21 | XMS_ITS | Encounter Summary ---
Author Organization [facility] Address [address] [place] [address] Care Team Providers Care Wrapper Sizer Name Role Phone Unavailable Primary Care Provider Unavailabl e Encounter Details Date Type Department Care Team (Late Contact Info) Description 04/24/2023 Abstract [facility] OB [address] [facility] [place] [address] Nolan Cortes [address] Rocael Jeffries, [facility]11 Social History Tobacco Use Types Packs/Day Years [...] Routine [facility] BCP OB [address] [facility] [place] [address] Kristan Fish PA [address] [place], [facility]11 documented as of this encounter Visit Diagnoses Not on filedocumented in this encounter
--- OUTSIDE RECORDS SUMMARY | 2025-04-25 15:21 | XMS_ITS | Encounter Summary ---
Author Organization [facility] Address [address] [place] [address] Care Team Providers Care Tube Closing Machine Operator Name Role Phone Unavailable Primary Care Provider Unavailabl e Encounter Details Date Type Department Care Team (Late Contact Info) Description 04/22/2023 Abstract [facility] OB [address] [facility] [place] [address] Nolan Cortes [address] Rocael Jeffries, [facility]11 Social History Tobacco [...] AM EDT Routine [facility] B[facility] OB [address] [facility] [place] [address] Kristan Fish PA [address] [place], [facility]11 documented as of this encounter Visit Diagnoses Not on filedocumented in this encounter
--- OUTSIDE RECORDS SUMMARY | 2025-04-25 15:21 | XMS_ITS | Encounter Summary ---
Author Organization [facility] Address [address] [place] [address] Care Team Providers Care Hospital Unit Clerk Name Role Phone Unavailable Primary Care Provider Unavailabl e Encounter Details Date Type Department Care Team (Late Contact Info) Description 04/28/2024 Clinisync Result Encounter [facility] External Department Unsolicited Thomas Cortes DO [address] [facility] [place] [address] Social History Tobacco Use Types Packs/Day Years [...] AM EDT Routine [facility] B[facility] OB [address] [facility] [place] [phone] Kristan Fish PA [address] [place] [address] documented as of this encounter Procedures Procedure Name Priority Date/Time Associated Diagnosis Comments US PELVIS W/ TRANSVAGINAL 04/28/2024 1:16 PM EDT documented in this encounter Results * US PELVIS W/ TRANSVAGINAL (04/28/2024 1:16 PM EDT) Anatomical Region Laterality Modality Other 04/28/2024 1:16 PM EDT Narrative 04/28/2024 1:19 PM EDT [address] [address] Ultrasound Report Signed Patient: KIRA PURVIS MR#: [id number] : 1990 Acct:[id number] Age/Sex: 33 / F ADM Date: 04/27/24 Loc: US Attending Dr: Thomas Cortes D.O. Ordering Physician: Thomas Cortes D.O. Date of Service: 04/27/24 Procedure(s): US pelvis w/ transvaginal Accession Number(s): [id number] cc: Thomas Cortes D.O.; Physician,Non-Staff Nikky [address] [address] Patient Name: KIRA PURVIS MRN: [facility]:[id number] date: 1990 Sex: F Assigned Patient Location: US Current Patient Location: Accession/Order Number: [id number] Exam Date: 04/27/2024 14:00 Report Date: 04/28/2024 [...] Signed By: 04/28/24 1319 DD/ 1316 TD/TT: Box Office Agent: Procedure Note Radiology, Radiologist, MD - 04/28/2024 [place] [address] Ultrasound Report Signed Patient: KIRA PURVIS LMR#: [id number] : 1990Acct:[id number] Age/Sex: 33 / FADM Date: 04/27/24 Loc: US Attending Dr: Thomas Cortes D.O. Ordering Physician: Thomas Cortes D.O. Date of Service: 04/27/24 Procedure(s): US pelvis w/ transvaginal Accession Number(s): [id number] cc: Thomas Cortes D.O.; Physician,Non-Staff Nikky The [place] [id number] Patient Name: KIRA PURVIS MRN: [id number] date: 1990 Sex: F Assigned Patient Location: US Current Patient Location: Accession/Order Number: [id number] Exam Date: 04/27/2024 14:00 Report Date: 04/28/2024 [...] M.D. Signed By:04/28/24 1319 DD/ 1316 TD/TT: Box Office Agent: us Thomas Sebastian DO [facility] Final Result documented in this encounter Visit Diagnoses Not on filedocumented in this encounter
--- OUTSIDE RECORDS SUMMARY | 2025-04-25 15:21 | XMS_ITS | Encounter Summary ---
Demographics Address [address] [place] [address] Mobile Phone Home Phone Email Address Email Address Preferred Language Azeri Marital Status Pentecostal Affiliation Unknown Race White Ethnic Group Not or Lati no Author Organization [facility] [employer] tem Address [id number] [address] [place] [address] Support Name Relationship Address Phone Dariusz Purvis Emergency Contact [address] [place] [address] Sravani Villasenor Personal Relationship [address] [place] [address] Laura Cope Personal Relationship Unknown [phone] Care Team Providers Care Senior Climate Advisor Name Role Phone Eli Azul MD Primary Care Provider + Encounter Details Date Type Department Care Team (Late st Contact Info) Description 02/07/2025 Orders Only Maternal- Medicine at [facility] [address] [place] [phone] Ref Prov, [place] [address] Social History Tobacco Use Types Packs/Day Years [...] on file documented as of this encounter Procedures Procedure [...] 1:52 PM EST) Anatomical Region Laterality Modality OB-CONSTRUCTION FOREMAN Ultrasound us Not In System Ref Prov IMG US ORDERABLES Final R esult documented in this encounter Visit Diagnoses Not on filedocumented in this encounter Care Teams Senior Climate Advisor Relationship Specialty Start Date End Date Eli Azlu MD PCP - General Pediatrics 06/23/18 documented as of this encounter
--- OUTSIDE RECORDS SUMMARY | 2025-04-25 15:21 | XMS_ITS | Encounter Summary ---
Author Organization [facility] Address [address] [place] [address] Care Team Providers Care Manpower Development Specialist Name Role Phone Unavailable Primary Care Provider Unavailabl e Encounter Details Date Type Department Care Team ([facility] Contact Info) Description 07/18/2023 Clinisync Result Encounter [facility] External Department Unsolicited Thomas Cortes DO [address] [facility] [address] Rocael Jeffries, [facility]11 Social [...] Upcoming Encounters Date Type Department Care Team ([facility] Contact Info) Description 05/02/2025 10:50 AM EDT Routine [facility] [address] [facility] [facility] [place] [address] Kristan Fish PA [address] [facility] [address] [place], [facility]11 documented as of this encounter Procedures Procedure Name Priority Date/Time Associated Diagnosis Comments US OB BPP W NON-STRESS 07/18/2023 3:07 PM EDT documented in this encounter Results * US OB BPP W NON-STRESS (07/18/2023 3:07 PM EDT) Anatomical Region Laterality Modality Other 07/18/2023 3:07 PM EDT Narrative 07/18/2023 3:07 [place] [address] Ultrasound Report Signed Patient: KIRA PURVIS MR#: [id number] 06 : 1990 Acct:[id number] Age/Sex: 32 / F ADM Date: 07/17/23 Loc: US Attending Dr: Thomas Cortes D.O. Ordering Physician: Thomas Cortes D.O. Date of Service: 07/17/23 Procedure(s): US OB BPP w non-stress Accession Number(s): [id number] cc: Thomas Cortes D.O.; Physician,Non-Staff [place] [address] Patient Name: KIRA PURVIS MRN: [facility]:[id number] date: 1990 Sex: F Assigned Patient Location: [facility] Current Patient Location: Accession/Order Number: [id number] Exam Date: 07/17/2023 16:00 Report Date: 07/18/2023 [...] M.D. Signed By: 07/18/231509 DD/ 06 TD/TT: Parts Department Manager: Procedure Note Radiology, Radiologist, - 08/01/2023 [address] [place] [id number] Ultrasound Report Signed Patient: KIRA PURVIS LMR#: [id number] 06 : 1990Acct:[id number] Age/Sex: 32 / FADM Date: 07/17/23 Loc: US Attending Dr: Thomas Cortes D.O. Ordering Physician: Thomas Cortes D.O. Date of Service: 07/17/23 Procedure(s): US OB BPP w non-stress Accession Number(s): [id number] cc: Thomas Cortes D.O.; Physician,Non-Staff Nikky The [place] [id number] Patient Name: KIRA PURVIS MRN: [facility]:[id number] date: 1990 Sex: F Assigned Patient Location: [facility] Current Patient Location: Accession/Order Number: [id number] Exam Date: 07/17/2023 16:00 Report Date: 07/18/2023 [...] Dillon M.D. Signed By:07/18/231509 DD/ 06 TD/TT: Parts Department Manager: us Thomas Siddiquio DO [facility] Final Result documented in this encounter Visit Diagnoses Not on filedocumented in this encounter
--- OUTSIDE RECORDS SUMMARY | 2025-04-25 15:21 | XMS_ITS ---
Author Organization [facility] Source Produ ction (ClinicalSummary Clone) Address Unknown Care Team Providers Care Abalone Sheller Name Role Phone Unavailable Primary Care Physician Unavailab le Results * [UNITY] ANEUPLOIDY NIPT Performed by: [employer] Component Value Range Date Fraction 5.5% 12/07/2024 05 :04 am [facility] Sex Chromosome Aneuploidy NOT DETECTED 05:04 am [facility] Monosomy X LOW RISK <1 in 10,000 2024 05:04 am [facility] Trisomy 13 LOW RISK <1 in 10,000 2024 05:04 am [facility] Trisomy 18 LOW RISK <1 in 10,000 2024 05:04 am UT Trisomy 21 LOW RISK <1 in 10,000 2024 05:04 am [facility] Sex MALE 12/07/2024 05:0 4 am [facility] Gestation [place] 12/07/19 05:04 am [facility] For detailed report, see PDF See PDF 12/07/2024 05:04 am UTC 12/07/2024 05:0 4 am [facility] Social History Observation Value Start Date End Date
--- OUTSIDE RECORDS SUMMARY | 2025-04-25 15:21 | XMS_ITS | Encounter Summary ---
Author Organization [facility] Address [address] [place] [address] Care Team Providers Care Associate Veterinarian Name Role Phone Unavailable Primary Care Provider Unavailabl e Encounter Details Date Type Department Care Team (Late st Contact Info) Description 04/18/2023 Abstract [facility] OB [address] [facility] [place] [address] Nolan Cortes DO [address] [facility] [address] Rocael Jeffries, [facility]11 Social History Tobacco Use Types Packs/Day [...] Description 05/02/2025 10:50 AM EDT Routine [facility] OB [address] [place] [address] [place] [address] Kristan Fish PA [address] [facility] [address] [place], [place] [id number] documented as of this encounter Visit Diagnoses Not on filedocumented in this encounter
--- OUTSIDE RECORDS SUMMARY | 2025-04-25 15:21 | XMS_ITS | Encounter Summary ---
Author Organization [facility] Address [address] [place] [address] Care Team Providers Care Shot Grinder Operator Name Role Phone Unavailable Primary Care Provider Unavailabl e Encounter Details Date Type Department Care Team (Late st Contact Info) Description 04/14/2023 Abstract [facility] OB [address] [facility] [place] [address] Nolan Cortes DO [address] [facility] [address] Rocael [place]ries, [facility]11 Social History Tobacco Use Types Packs/Day [...] Description 05/02/2025 10:50 AM EDT Routine [facility] OB [address] [facility] [place] [address] Kristan Fish PA [address] [facility] [address] [place], [place] [id number] documented as of this encounter Visit Diagnoses Not on filedocumented in this encounter
--- OUTSIDE RECORDS SUMMARY | 2025-04-25 15:21 | XMS_ITS | Encounter Summary ---
Demographics Address [address] [place] [address] Mobile Phone Home Phone Email Address Email Address Preferred Language Frisian Marital Status Synagogue Affiliation Unknown Race White Ethnic Group Not or Lati no Author Organization [facility] [employer] tem Address [id number] [address] [place] [address] Support Name Relationship Address Phone Dariusz Purvis Emergency Contact [address] [place] [address] Sravani Villasenor Personal Relationship [address] [place] [address] Laura Cope Personal Relationship Unknown [phone] Care Team Providers Care Hiv/Aids Care Nurse Name Role Phone Eli Azul MD Primary Care Provider + Encounter Details Date Type Department Care Team (Late st Contact Info) Description 03/15/2025 Orders Only Maternal- Medicine at [facility] [address] [place] [address] Rufina Hurd CMA Social History Tobacco Use [...] on filedocumented in this encounter Care Teams Hiv/Aids Care Nurse Relationship Specialty Start Date End Date Eli Azul MD PCP - General Pediatrics 06/23/18 documented as of this encounter
--- OUTSIDE RECORDS SUMMARY | 2025-04-25 15:21 | XMS_ITS | Encounter Summary ---
Author Organization [facility] Address [address] [place] [address] Care Team Providers Care Virtual Assistant For Advertisers Name Role Phone Unavailable Primary Care Provider Unavailabl e Encounter Details Date Type Department Care Team (Late Contact Info) Description 04/18/2025 Clinisync Result Encounter [facility] External Department Unsolicited Thomas Cortes DO [address] [facility] [address] Rocael [place]ries, [place] [address] Social History Tobacco Use Types Packs/Day Years [...] AM EDT Routine [facility] BCP OB [address] [facility] [place] [address] Kristan Fish PA [address] [facility] [address] [address] [place], [facility]11 documented as of this encounter Procedures Procedure Name Priority Date/Time Associated Diagnosis Comments US OB BPP W NON-STRESS 04/18/2025 4:07 PM EDT documented in this encounter Results * US OB BPP W NON-STRESS (04/18/2025 4:07 PM EDT) Anatomical Region Laterality Modality Other 04/18/2025 4:07 PM EDT Narrative 04/18/2025 4:09 PM EDT [address] [address] Ultrasound Report Signed Patient: KIRA PURVIS MR#: [id number] : 1990 Acct:[id number] Age/Sex: 34 / F ADM Date: 04/18/25 Loc: US Attending Dr: Thomas Cortes D.O. Ordering Physician: Thomas Cortes D.O. Date of Service: 04/18/25 Procedure(s): US OB BPP w non-stress Accession Number(s): [id number] cc: Thomas Cortes D.O.; Physician,Non-Staff [place] [address] Patient Name: KIRA PURVIS MRN: [id number] date: 1990 Sex: F Assigned Patient Location: [facility] Current Patient Location: Accession/Order Number: [id number] Exam Date: 04/18/2025 16:06 Report Date: 04/18/2025 [...] Olvera M.D. 04/18/2025 4:07 PM Dictation Location: [place] [address] Electronically authenticated by: [id number] Y Date: 04/18/2025 16:07 Dictated By: Harlan Olvera D.O. Signed By: 04/18/25 1609 DD/ 160 TD/TT: Criminal Justice Social Worker: Procedure Note Radiology, Radiologist, - 04/18/2025 [place] [address] Ultrasound Report Signed Patient: KIRA PURVIS LMR#: [id number] : 1990Acct:[id number] Age/Sex: 34 / FADM Date: 04/18/25 Loc: US Attending Dr: Thomas Cortes D.O. Ordering Physician: Thomas Cortes D.O. Date of Service: 04/18/25 Procedure(s): US OB BPP w non-stress Accession Number(s): [id number] cc: Thomas Cortes D.O.; Physician,Non-Staff [address] [place] [address] Patient Name: KIRA PURVIS MRN: [id number] date: 1990 Sex: F Assigned Patient Location: [facility] Current Patient Location: Accession/Order Number: [id number] Exam Date: 04/18/2025 16:06 Report Date: 04/18/2025 [...] Olvera M.D. 04/18/2025 4:07 PM Dictation Location: [place] [address] Electronically authenticated by: [id number] Y Date: 6:07 Dictated By: Harlan Olvera D.O. Signed By:04/18/25 1609 DD/ 1607 TD/TT: Criminal Justice Social Worker: us Thomas Cortes DO [facility] Final Result documented in this encounter Visit Diagnoses Not on filedocumented in this encounter
--- OUTSIDE RECORDS SUMMARY | 2025-04-25 15:21 | XMS_ITS ---
Author Organization [facility] Source Produ ction (ClinicalSummary Clone) Address Unknown Care Team Providers Care Folding Rules Printing Machine Operator Name Role Phone Unavailable Primary Care Physician Unavailab le Results * [UNITY] ANEUPLOIDY NIPT Performed by: [email or web address] Component Value Range Date Fraction 5.5% 04/05/2025 [...]
--- OUTSIDE RECORDS SUMMARY | 2025-04-25 15:21 | XMS_ITS | Encounter Summary ---
Author Organization [facility] Address [address] [place] [address] Care Team Providers Care Metal Forger'S Assistant Name Role Phone Unavailable Primary Care Provider Unavailabl e Encounter Details Date Type Department Care Team (Late Contact Info) Description 12/01/2024 Abstract [facility] B[facility] OB [address] [place] [address] Nolan Cortes DO [address] [place], [facility]11 Social History Tobacco Use Types Packs/Day Years [...] AM EDT Routine [facility] OB [address] [facility] [place] [address] Kristan Fish PA [address] [place] [address] documented as of this encounter Visit Diagnoses Not on filedocumented in this encounter
--- OUTSIDE RECORDS SUMMARY | 2025-04-25 15:21 | XMS_ITS | Encounter Summary ---
Author Organization [facility] Address [address] [place] [address] Care Team Providers Care Soil Engineer Name Role Phone Unavailable Primary Care Provider Unavailabl e Encounter Details Date Type Department Care Team (Late st Contact Info) Description 04/14/2023 Abstract [facility] OB [address] [facility] [place] [address] Nolan Cortes DO [address] [facility] [address] Rocael [place], [facility]11 Social History Tobacco Use Types [...] [facility] OB [address] [facility] [place] [place] [address] Kristan Fish PA [address] [facility] [facility] [address] [place], [place] [phone] documented as of this encounter Visit Diagnoses Not on filedocumented in this encounter
--- OUTSIDE RECORDS SUMMARY | 2025-04-25 15:21 | XMS_ITS | Encounter Summary ---
Demographics Address [address] [place] [address] Mobile Phone Home Phone Email Address Email Address Preferred Language Latvian Marital Status Sikhism Affiliation Unknown Race White Ethnic Group Not or Lati no Author Organization [facility] [employer] tem Address [facility][id number] [address] [place] [address] Support Name Relationship Address Phone Dariusz Purvis Emergency Contact [address] [place] [address] Sravani Villasenor Personal Relationship [address] [place] [address] Laura Cope Personal Relationship Unknown [phone] Care Team Providers Care Field Specialist Name Role Phone Eli Azul MD Primary Care Provider + Encounter Details Date Type Department Care Team (Late st Contact Info) Description 04/19/2025 Telephone Maternal- Medicine at [facility] [address] [place] [address] Rufina Hurd CMA Social History Tobacco Use [...] encounter Miscellaneous Notes * Telephone Encounter - Rufina Hurd CMA - 04/19/2025 8:44 AM EDT FIGURE CLERK CALLED PATIENT. NO ANSWER. LEFT VM FOR PATIENT TO EMAIL US HER BLOOD GLUCOSE LOG FOR HER UPCOMING APPOINTMENT WITH [facility] AT 10:30 AM documented in this encounter Plan of Treatment Not on file documented as of this encounter Visit Diagnoses Not on filedocumented in this encounter Care Teams Field Specialist Relationship Specialty Start Date End Date Eli Azul MD PCP - General Pediatrics 06/23/18 documented as of this encounter
--- OUTSIDE RECORDS SUMMARY | 2025-04-25 15:21 | XMS_ITS | Encounter Summary ---
Author Organization [facility] Address [address] [place] [address] Care Team Providers Care Dirt Bike Racer Name Role Phone Unavailable Primary Care Provider Unavailabl e Encounter Details Date Type Department Care Team (Late Contact Info) Description 04/18/2025 Bamboo flowsheet [facility] OB [address] [facility] [place] [address] Nolan Cortes DO [address] [facility] [address] [place], [facility]11 Social History Tobacco Use Types Packs/Day [...] AM EDT Routine [facility] BCP OB [address] [facility] [place] [address] Kristan Fish PA [address] [place], [facility]11 documented as of this encounter Visit Diagnoses Not on filedocumented in this encounter
[2025-04-25 16:01] VITALS: BP 125/68; PULSE 87
== END 2025-04-25 16:49 | disposition home or self-care (01) ==
LOC: US 15:18 → FBC 15:20
PROVIDERS: Visit Provider Obstetrics & Gynecology
DX: O24.419 Gestational diabetes mellitus in pregnancy, unspecified control (principal); Z3A.31 31 weeks gestation of pregnancy
CPT/HCPCS: 76818

== ENCOUNTER 2025-05-02 14:58 | Outpatient (OUT) | payer BC, SELFPAY ==
--- OUTSIDE RECORDS SUMMARY | 2025-04-18 13:00 | XMS_ITS | Encounter Summary ---
Author Organization [facility] Address [address] [facility] [place] [address] Care Team Providers Care Canal Boat Captain Name Role Phone Unavailable Primary Care Provider Unavailabl e Reason for Visit * Reason Comments Routine Visit Encounter Details Date Type Department Care Team ([facility] Contact Info) Description 04/18/2025 1:00 PM EDT Routine [facility] OB [address] [place] [phone] Nolan Cortes, DO [address] [facility] [address] [place], [place] [phone] 30 weeks gestation of ([facility]); Third trimester ([facility]) Social History Tobacco Use Types Packs/Day Years [...] Sign Reading Time Taken Comments Blood Pressure 120/74 04/18/2025 1:11 PM EDT Pulse - - Temperature - - Respiratory Rate - - Oxygen Saturation - - Inhaled Oxygen Concentration - - Weight 134 kg (295 lb 6.4 oz) 04/18/2025 1:11 PM EDT Height - - Body Mass Index 46.27 09/09/2023 1:05 PM EDT documented in this encounter Progress Notes * Armida Albrecht NP - 04/18/2025 1:00 PM EDT Reason for Appointment: Patient ID: [...] (FORTAMET) 1,000 mg, Daily with evening meal MV & Min w/FA-DHA ( Adult Gummy/DHA/FA) [...] Morbid obesity with BMI of 40.0-44.9, adult ([facility]) HISTORY PAST MEDICAL HISTORY SOCIAL HISTORY Past Medical History: Diagnosis Date Chronic hypertension affecting Exposure to cat feces, sequela Former smoker Gestational diabetes Herpes exposure History of miscarriage Morbid obesity with BMI of 40.0-44.9, adult ([facility]) Social History Tobacco Use Smoking [...] nursing note reviewed. Exam conducted with a engine research engineer present. Vitals: Estimated body mass index is 46.27 kg/m?? as calculated from the following: Height as of 09/09/23: 5' 7 . Weight as of this encounter: 295 lb 6.4 oz. BP: 120/74 Patient's last menstrual period was 09/17/2024. ASSESSMENT & PLAN ICD-10-CM 1. 30 weeks gestation of Z3A.30 POCT urinalysis dipstick manually resulted 2. Third trimester Z34.93 POCT urinalysis dipstick manually resulted Return OB: Patient presents today for a routine obstetrics appointment. Patient is currently 30w3d . Patient states she is doing well but has complaints of being tired due to current . Patient has verbalizes frequent movement. labor precautions was discussed/given and patient was instructed to perform kick counts three times a day. Continues to monitor glucose and reports they have been good and M continues to monitor glucose closely and continues with the Metformin. Orders Placed This Encounter Procedures POCT urinalysis dipstick manually resulted Follow Up: Patient is to return to office in 2 week for routine OB appointment. Documented by Armida Albrecht NP on behalf of: Nolan Cortes DO documented in this encounter Plan of Treatment Upcoming Encounters Date Type Department Care Team (Late st Contact Info) Description 05/17/2025 11:40 AM EDT Routine [facility] OB [address] [facility] [place] [address] Nolan Cortes, DO [address] [place] [address] [place] [address] documented as of this encounter Procedures Procedure Name Priority Date/Time Associated Diagnosis Comments POCT URINALYSIS DIPSTICK Routine 04/18/2025 1:14 PM EDT 30 weeks gestation of ([facility]) Third trimester ([facility]) documented in this encounter Results * (ABNORMAL) POCT urinalysis dipstick manually resulted (04/18/2025 1:14 PM EDT) Color, UA Light Yellow Clarity, UA Clear Glucose, UA Positive Negative - 2000(110) ++++ mg/dL Comment:250 Bilirubin, UA Negative Negative - 4(70) +++ mg/dL Ketones, UA Positive Negative - 160(16) ++++ mg/dL Comment:15 Spec Grav, UA 1.005 1 - 1.03 Blood, UA Negative Negative - 50 Eliceo/mcL pH, UA 6.0 5 - 9 Protein, UA Negative Negative - 2000(20) ++++ mg/dL Urobilinogen, UA 0.2 0.2 - 12 mg/dL Leukocytes, UA Positive Negative - 500+++ Danielle/mcL Comment:small Nitrite, UA Negative Negative - Positive Urine 04/18/2025 1:14 PM EDT Nolan Cortes DO POINT OF CARE TEST ENTER/EDIT OR DERABLES Final Result documented in this encounter Visit Diagnoses Diagnosis 30 weeks gestation of ([facility]) Third trimester ([facility]) state, incidental documented in this encounter
--- OUTSIDE RECORDS SUMMARY | 2025-04-19 10:30 | XMS_ITS | Encounter Summary ---
Demographics Address [address] [place] [address] Mobile Phone Home Phone Email Address Email Address Preferred Language Amharic Marital Status Sabianism Affiliation Unknown Race White Ethnic Group Not or Lati no Author Organization [facility] Address [id number] [address] [place] [address] Support Name Relationship Address Phone Dariusz Purvis Emergency Contact [address] [place] [address] Sravani Villasenor Personal Relationship [address] [place] [address] Laura Cope Personal Relationship Unknown [phone] Care Team Providers Care Geotechnical Laboratory Technician Name Role Phone Eli Azul MD Primary Care Provider + Encounter Details Date Type Department Care Team (Late st Contact Info) Description 04/19/2025 10:30 AM EDT Telemedicine Maternal- Medicine at [facility] [address] [place] [address] Kenya Acosta, PA-C [address] [address] Gestational diabetes mellitus (GDM) in second trimester controlled on oral hypoglycemic drug (Primary Dx) Social History Tobacco Use Types Packs/Day Years [...] PM EDT documented as of this encounter Progress Notes * Kenya Acosta PA-C - 04/19/2025 10:30 AM EDT Maternal- Medicine Consultation VIRTUAL HISTORY OF PRESENT ILLNESS: Charlene Purvis is a 34 y.o. female at 30w4d due on Estimated Date of Delivery: 06/24/25 complicated by GDMA with h/o GDMA2, h/o PTD. Patient is feeling well today, just tired. She denies contractions, vaginal bleeding, leaking fluid. She appreciates movement. Patient denies headache, visual symptoms, right upper abdominal pain, increase in edema, SOB, chest pain. BG log review: F: 86-94 PPB: 121-138 PPL: 129-139 PPD: 125-138 Denies any values <60 day or night Reviewed typical meals: Breakfast: turkey sausage and eggs Lunch: salad with meat Dinner: chicken/veggies/rice States she got rhogam two weeks ago due to rh status Sadly in patient's 1st , she started having vaginal bleeding and ultimately delivered prematurely at 17w. Reports that she had been having vaginal bleeding leading up to this. Also states her blood pressure was high from early on in that . Denies any repeated occurrence of HTN within or outside of . She was also placed on glyburide early on in 1st , but never restarted afterwards. In her 2nd , patient had GDM, ultimately required insulin. 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 PAST OBSTETRICAL HISTORY: OB History 3 Para 1 Term 1 AB 1 Living 1 SAB 1 IAB Ectopic Multiple Live Births 1 SURGICAL HISTORY: Past Surgical History: Procedure Laterality Date ELBOW SURGERY Right LAPAROSCOPIC CHOLECYSTECTOMY N/A 10/27/2018 Performed by Vince Ardon DO at [facility] SKIN SURGERY mole removed from neck ALLERGIES: No Known Allergies CURRENT MEDICATIONS: Current Outpatient Medications: aspirin 81 mg chewable tablet, Chew 1 tablet (81 mg total) and swallow in the morning., Disp: , Rfl: blood sugar diagnostic (glucose blood) strip, 1 strip by other route as needed for high blood sugar. ReliOn test strips, Disp: , Rfl: blood-glucose meter (RELION MICRO GLUCOSE MONITOR) misc, by miscellaneous route., Disp: , Rfl: lancets (LANCETS,ULTRA THIN) misc, by miscellaneous route. Ultra Thin, Disp: , Rfl: metFORMIN XR (GLUCOPHAGE XR) 500 mg 24 hr tablet, Take 500mg in am with breakfast and 1000 mg in pmwith dinner, Disp: 60 tablet, Rfl: 4 ondansetron ODT (ZOFRAN-ODT) 4 mg disintegrating tablet, Dissolve 1 tablet (4 mg total) on tongue every 8 (eight) hours as needed for nausea for up to 10 doses., Disp: 10 tablet, Rfl: 0 pen needle, diabetic (BD ULTRA-FINE SILVIA PEN NEEDLE) 32 gauge x 5/32 needle, Use a new needle witheach injection, Disp: 100 each, Rfl: 3 vit calc,iron,folic ( VITAMIN ORAL), Take 1 tablet by mouth in the morning., Disp:, Rfl: LABS: Lab Results Component Value Date TSH 0.495 01/31/2023 No components found for: [facility] Lab Results Component Value Date CREATININE 0.49 08/25/2021 BUN 8 08/25/2021 K 3.3 (L) 08/25/2021 CL 99 08/25/2021 CO2 23 08/25/2021 Lab Results Component Value Date ALT 19 10/14/2018 AST 19 10/14/2018 ALKPHOS 62 10/14/2018 Lab Results Component Value Date HGBA1C 5.5 11/27/2024 No components found for: POCA1C REVIEW OF SYSTEMS: Head and Neck: Negative for any dizziness and headaches. Cardiovascular and Respiratory System: Denies any chest pain, shortness of breath, and coughing. Abdominal and System: Denies any abdominal pain, nausea, vomiting, vaginal bleeding, and vaginaldischarge PHYSICAL EXAMINATION: Gen: NAD DISCUSSION Glucose goals in : Fasting 60 - 95: Mean fasting glucose values are important in managing diabetes in women because they provide overall glycemic estimate, and are predictive of increased fat mass in the women???s offspring. Increased fat mass has been shown to be associated with the development of childhood obesity, and diabetes. One hour postprandial 90 - 140: Postprandial measurements are important in management of diabetes in because they are associated with incidence of large for gestational age infants, and lower rates of delivery for cephalopelvic disproportion when well controlled. Discussed monitoring for hypogylcemia, signs/symptoms of hypoglycemia, and examples of treatment ofhypoglycemia (15/15 rule). Discussed her current diet and her awareness of grams of carbohydrate per meal. Reviewed recommendations - 30g carbohydrate for breakfast, 45-60g carbohydrate for lunch and dinner, 15g carbohydrate for snacks, incorporating sufficient protein with each meal and ideally having half of plate be fruits and vegetables (with awareness of which fruits typically spike blood glucose). Encouraged her to be aware of carbohydrate intake and note which foods causing values above goal. Encouraged her on diet modifications. PLAN - Current blood glucose control: well controlled - Medication: - metformin 500mg in AM, 1000mg in PM - continue - Continue aspirin 81mg once daily - Labs - A1c: per outside records, 5.5 on 11/27/24 ---> 5.8 on 03/08/25 at [facility] - Baseline preeclampsia labs: CMP, Plts, urine P/C ratio - low risk cell free dna - Anatomy survey with M - please contact us if you would like this performed with us - growth ultrasounds every 4 weeks after 28 weeks - please let us know should macrosomia or growth restriction arise - Recommend the following for testing, which can be done with primary OB: - NST and BHAVANI once weekly at 32 weeks - NST twice weekly and BHAVANI once weekly at 36 weeks - Delivery recommendations : - Recommend delivery at 54a7b-33f1w - reviewed with patient - Discuss delivery if estimated weight is >4500g - Obtain a 2-hour GTT 6-8 weeks . Also recommend yearly evaluation of blood glucose as patient is at an increased risk of developing diabetes later on - discussed with patient Labor symptoms,bleeding precautions reviewed. Follow up in 4 weeks with Maternal- Medicine. I asked her to keep sending values to us weekly by e-mail to: or by fax to: [phone] Kenya Acosta PA-C Maternal- Medicine Office phone: [phone] Kenya Acosta PA-C 04/19/25 1051 documented in this encounter Plan of Treatment Not on file documented as of this encounter Visit Diagnoses Diagnosis Gestational diabetes mellitus (GDM) in second trimester controlled on oral hypoglycemic drug- Primary documented in this encounter Care Teams Geotechnical Laboratory Technician Relationship Specialty Start Date End Date Eli Azul MD PCP - General Pediatrics 06/23/18 documented as of this encounter
--- OUTSIDE RECORDS SUMMARY | 2025-05-02 10:50 | XMS_ITS | Encounter Summary ---
Author Organization [facility] Address [address] [facility] [address] [place] [address] Care Team Providers Care Regulator Operator Name Role Phone Unavailable Primary Care Provider Unavailabl e Reason for Visit * Reason Comments Routine Visit Encounter Details Date Type Department Care Team ([facility] Contact Info) Description 05/02/2025 10:50 AM EDT Routine [facility] [address] [phone] Kristan Fish PA [address] [place], [facility]11 32 weeks gestation of ([facility]); Third trimester ([facility]) Social History Tobacco Use Types Packs/Day [...] Noted Benign essential hypertension in obstetric context ([facility]) 04/18/2023 Exposure to cat feces 04/18/2023 Gestational diabetes ([facility]) 04/18/2023 Nausea 04/18/2023 History of delivery 02/24/2023 Resolved Ambulatory Problems Diagnosis Date Noted No Resolved Ambulatory Problems Past Medical History: Diagnosis Date Chronic hypertension affecting ([facility]) Exposure to cat feces, sequela Former smoker Herpes exposure History of miscarriage Morbid obesity with BMI of 40.0-44.9, adult [place] HISTORY PAST MEDICAL HISTORY SOCIAL HISTORY Past Medical History: Diagnosis Date Chronic hypertension affecting ([facility]) Exposure to cat feces, sequela Former smoker Gestational diabetes ([facility]) Herpes exposure History of miscarriage Morbid obesity with BMI of 40.0-44.9, adult ([facility]) Social History Tobacco Use Smoking status: Former [...] nursing note reviewed. Exam conducted with a high school social studies tutor present. Vitals: Estimated body mass index is 47.16 kg/m?? as calculated from the following: Height as of 09/09/23: 5' 7 . Weight as of this encounter: 301 lb 1.9 oz. BP: 130/82 Patient's last menstrual period was 09/17/2024. ASSESSMENT & PLAN ICD-10-CM 1. 32 weeks gestation of ([facility]) Z3A.32 POCT urinalysis dipstick manually resulted 2. Third trimester ([facility]) Z34.93 POCT urinalysis dipstick manually resulted [...] She is sending her glucose logs to [facility] for review. She has continued with [...] OB [address] [phone] Nolan Cortes, DO [address] [place] [address] documented as of this encounter Procedures Procedure Name Priority Date/Time Associated Diagnosis Comments POCT URINALYSIS DIPSTICK Routine 05/02/2025 11:00 AM EDT 32 weeks gestation of ([facility]) Third trimester ([facility]) documented in this encounter Results * [...] Visit Diagnoses Diagnosis 32 weeks gestation of ([facility]) Third trimester ([facility]) state, incidental documented in this encounter
--- NOTE | 2025-05-02 15:01 | US_ITS ---
[place] [id number] Patient Name: KIRA CASTELLON MRN: [id number] date: 1990 Sex: F Assigned Patient Location: [facility] Current Patient Location: Accession/Order Number: [id number] Exam Date: 05/02/2025 16:28 Report Date: 05/02/2025 16:30 At the request of: THOMAS FORMAN DO Procedure: US OB BPP w non-stress US OB BPP w non-stress 05/02/2025 3:22 PM SIGNS AND SYMPTOMS: ^Gestational diabetes mellitus PROTOCOL: Transabdominal sonographic images of the gravid uterus COMPARISON: 04/25/2025 FINDINGS: Estimated gestational age is 32 weeks and 3 days heart rate is 134 bpm Amniotic fluid volume is 13.12 cm with the deepest vertical pocket measuring 5.14 cm. Biophysical profile: movements: 2/2 tone: 2/2 breathing movements: 2/2. Amniotic fluid volume: 2/2 US/US OB BPP w non-stress IMPRESSION: Biophysical profile score: 8/8 Impression dictated by: Marquis Maxwell M.D. 05/02/2025 4:30 PM Dictation Location: [facility] Electronically authenticated by: [id number] Y Date: 05/02/2025 16:30
--- OUTSIDE RECORDS SUMMARY | 2025-05-02 15:01 | XMS_ITS | Encounter Summary ---
Demographics Address [address] [place] [address] Mobile Phone Home Phone Email Address Email Address Preferred Language Czech Marital Status Scientology Affiliation Unknown Race White Ethnic Group Not or Lati no Author Organization [facility] Address [id number] [address] [place] [address] Support Name Relationship Address Phone Dariusz Purvis Emergency Contact [address] [place] [address] Sravani Villasenor Personal Relationship [address] [place] [address] Laura Cope Personal Relationship Unknown [phone] Care Team Providers Care Parts Casting Machine Operator Name Role Phone Eli Azul MD Primary Care Provider + Encounter Details Date Type Department Care Team (Late st Contact Info) Description 02/07/2025 Orders Only Maternal- Medicine at [facility] [address] [place] [phone] Ref Prov, [place] [address] Social History Tobacco Use Types Packs/Day Years [...] Date/Time Associated Diagnosis Comments FREE CELL DNA (NON-[place] SEND OUT) Routine 11/30/2024 1:50 PM EST US PREG LMTD 1 OR MORE FETUS Routine 11/26/2024 1:52 PM EST documented in this encounter Results * Free Cell DNA (11/30/2024 1:50 PM EST) us Not In System Ref Prov LAB BLOOD ORDERABLES Kathy l Result MANUALLY TRANSCRIBED RESULTS * Ultrasound limited 1 or more fetus (11/26/2024 1:52 PM EST) Anatomical Region Laterality Modality OB-INCINERATOR PLANT LABORER Ultrasound us Not In System Ref Prov IMG US ORDERABLES Final R esult documented in this encounter Visit Diagnoses Not on filedocumented in this encounter Care Teams Parts Casting Machine Operator Relationship Specialty Start Date End Date Eli Azul MD PCP - General Pediatrics 06/23/18 documented as of this encounter
--- OUTSIDE RECORDS SUMMARY | 2025-05-02 15:01 | XMS_ITS | Encounter Summary ---
Demographics Address [address] [place] [address] Mobile Phone Home Phone Email Address Email Address Preferred Language Greek Marital Status Rastafari Affiliation Unknown Race White Ethnic Group Not or Lati no Author Organization [facility] tem Address [id number] [address] [place] [address] Support Name Relationship Address Phone Dariusz Purvis Emergency Contact [address] [place] [address] Sravani Villasenor Personal Relationship [address] [place] [address] Laura Cope Personal Relationship Unknown Care Team Providers Care Piggyback Clerk Name Role Phone Eli Azul MD Primary Care Provider + Encounter Details Date Type Department Care Team (Late st Contact Info) Description 04/19/2025 Telephone Maternal- Medicine at [facility] [address] [place] [phone] Rufina Hurd CMA Social History Tobacco Use [...] Hurd CMA - 04/19/2025 8:44 AM EDT DRILLING MANAGER CALLED PATIENT. NO ANSWER. LEFT VM FOR PATIENT TO EMAIL US HER BLOOD GLUCOSE LOG FOR HER UPCOMING APPOINTMENT WITH [facility]EL AT 10:30 AM documented in this encounter Plan of Treatment Not on file documented as of this encounter Visit Diagnoses Not on filedocumented in this encounter Care Teams Piggyback Clerk Relationship Specialty Start Date End Date Eli Azul MD PCP - General Pediatrics 06/23/18 documented as of this encounter
--- OUTSIDE RECORDS SUMMARY | 2025-05-02 15:01 | XMS_ITS | Encounter Summary ---
Author Organization [facility] Address [address] [place] [address] Care Team Providers Care Digital Photo Printer Name Role Phone Unavailable Primary Care Provider Unavailabl e Encounter Details Date Type Department Care Team (Late Contact Info) Description 08/21/2023 Abstract [facility] OB [address] [place] [address] Nolan Cortes, [facility] Olivia Jeffries, [facility]11 Social History [...] Department Care Team (Late Contact Info) Description 05/17/2025 11:40 AM EDT Routine [facility] OB [address] [place] [address] Nolan Cortes, DO [address] [place], [facility]11 documented as of this encounter Visit Diagnoses Not on filedocumented in this encounter
--- OUTSIDE RECORDS SUMMARY | 2025-05-02 15:01 | XMS_ITS | Encounter Summary ---
Author Organization [facility] Address [address] [place] [address] Care Team Providers Care Practice Specialist Name Role Phone Unavailable Primary Care Provider Unavailabl e Encounter Details Date Type Department Care Team (Late Contact Info) Description 12/08/2024 Abstract [facility] OB [address] [place] [address] Nolan Cortes DO [address], [facility]11 Social History Tobacco Use Types [...] Routine [facility] OB [address] [place] [address] Nolan Cortes DO [address] [place] [address] documented as of this encounter Visit Diagnoses Not on filedocumented in this encounter
--- OUTSIDE RECORDS SUMMARY | 2025-05-02 15:01 | XMS_ITS | Encounter Summary ---
Author Organization [facility] Address [address] [place] [address] Care Team Providers Care Special Education Paraprofessional Name Role Phone Unavailable Primary Care Provider Unavailabl e Encounter Details Date Type Department Care Team (Late Contact Info) Description 08/21/2023 Abstract [facility] OB [address] [place] [address] Nolan Cortes, [facility] Olivia Jeffries, [facility]11 Social History Tobacco Use Types Packs/Day Years [...] Routine [facility] OB [address] [place] [address] Nolan Cortes, DO [address], [facility] documented as of this encounter Visit Diagnoses Not on filedocumented in this encounter
--- OUTSIDE RECORDS SUMMARY | 2025-05-02 15:01 | XMS_ITS | Encounter Summary ---
Author Organization [facility] Address [address] [place] [address] Care Team Providers Care Data Entry Technician Name Role Phone Unavailable Primary Care Provider Unavailabl e Encounter Details Date Type Department Care Team (Late Contact Info) Description 04/18/2025 Bamboo flowsheet [facility] OB [address] [place] [address] Nolan Cortes DO [address], [place] [address] Social History Tobacco Use Types Packs/Day Years [...] Routine [facility] OB [address] [place] [address] Nolan Cortes DO [address], [facility]11 documented as of this encounter Visit Diagnoses Not on filedocumented in this encounter
--- OUTSIDE RECORDS SUMMARY | 2025-05-02 15:01 | XMS_ITS | Encounter Summary ---
Author Organization [facility] Address [address] [place] [address] Care Team Providers Care Grounds Maintenance Supervisor Name Role Phone Unavailable Primary Care Provider Unavailabl e Encounter Details Date Type Department Care Team (Late Contact Info) Description 12/01/2024 Abstract [facility] OB [address] [place] [address] Nolan Cortes DO [address], [facility]11 Social History Tobacco Use Types Packs/Day [...] Routine [facility] OB [address] [place] [address] Nolan Cortes DO [address] [place] [address] documented as of this encounter Visit Diagnoses Not on filedocumented in this encounter
--- OUTSIDE RECORDS SUMMARY | 2025-05-02 15:01 | XMS_ITS | Encounter Summary ---
Author Organization [facility] Address [address] [place] [address] Care Team Providers Care Obstetrics Gyn Physician Name Role Phone Unavailable Primary Care Provider Unavailabl e Encounter Details Date Type Department Care Team (Late Contact Info) Description 07/04/2023 Abstract [facility] OB [address] [facility] [place] [address] Nolan Cortes, DO [address] [place], [facility] [...] Description 05/17/2025 11:40 AM EDT Routine [facility] OB [address] [facility] [place] [place] [address] Nolan Cortes, DO [address], [place] [address] documented as of this encounter Visit Diagnoses Not on filedocumented in this encounter
--- OUTSIDE RECORDS SUMMARY | 2025-05-02 15:01 | XMS_ITS | Encounter Summary ---
Author Organization [facility] Address [address] [facility] [place] [place] [address] Care Team Providers Care Cold Press Operator Name Role Phone Unavailable Primary Care Provider Unavailabl e Encounter Details Date Type Department Care Team (Late Contact Info) Description 03/26/2024 Orders Only [facility] [address] [place] [address] Bertha Quevedo LPN [address] [place] [address] Social History Tobacco Use Types Packs/Day Years [...] AM EDT Routine [facility] OB [address] [place] [address] Nolan Cortes DO [address] [place] [address] documented as of this encounter Procedures Procedure Name Priority Date/Time Associated Diagnosis Comments PAP SMEAR Routine 03/18/2024 12:00 AM EDT documented in this encounter Results * Pap Smear (03/18/2024 12:00 AM EDT) Swab Cervical swab / Unknown us Sebastian Nurse [facility] B[facility] Ob LAB CYTOLOGY ORDERABLES Final Result EXTERNAL LAB documented in this encounter Visit Diagnoses Not on filedocumented in this encounter
--- OUTSIDE RECORDS SUMMARY | 2025-05-02 15:01 | XMS_ITS | Encounter Summary ---
Author Organization [facility] Address [address] [place] [address] Care Team Providers Care Mining Helper Name Role Phone Unavailable Primary Care Provider Unavailabl e Encounter Details Date Type Department Care Team (Late Contact Info) Description 12/02/2024 Abstract [facility] OB [address] [place] [address] Nolan Cortes DO [address], [facility]11 Social History Tobacco Use Types Packs/Day Years [...] AM EDT Routine [facility] OB [address] [place] [address] Nolan Cortes DO [address] [place] [address] documented as of this encounter Visit Diagnoses Not on filedocumented in this encounter
--- OUTSIDE RECORDS SUMMARY | 2025-05-02 15:01 | XMS_ITS | Encounter Summary ---
Author Organization [facility] Address [address] [place] [address] Care Team Providers Care Human Factors Specialist Name Role Phone Unavailable Primary Care Provider Unavailabl e Encounter Details Date Type Department Care Team (Late st Contact Info) Description 11/26/2024 Clinisync Result Encounter [facility] External Department Unsolicited Thomas Cortes, DO [address] [place] [address] Social History Tobacco Use Types Packs/Day [...] [facility] OB [address] [place] [address] Thomas Cortes, DO [address] [place] [address] documented as of this encounter Procedures Procedure Name Priority Date/Time Associated Diagnosis Comments US OB TRANSVAGINAL 11/26/2024 9: 35 AM EST documented in this encounter Results * US OB TRANSVAGINAL (11/26/2024 9:35 AM EST) Anatomical Region Laterality Modality Other 11/26/2024 9:35 AM EST Narrative 11/26/2024 9:37 AM EST [address] [address] Ultrasound Report Signed Patient: KIRA PURVIS MR#: [id number] : 1990 Acct:[id number] Age/Sex: 34 / F ADM Date: 11/26/24 Loc: US Attending Dr: Thomas Cortes D.O. Ordering Physician: Thomas Cortes D.O. Date of Service: 11/26/24 Procedure(s): US OB transvaginal Accession Number(s): [id number] cc: Thomas Cortes D.O.; Physician,Non-Staff Nikky [address] [address] Patient Name: KIRA PURVIS MRN: [id number] date: 1990 Sex: F Assigned Patient Location: US Current Patient Location: US Accession/Order Number: [id number] Exam Date: 11/26/2024 08:36 Report Date: 11/26/2024 [...] follow-up is recommended. Electronically authenticated by: RUBEN DILLNO Date: 11/26/2024 09:35 Dictated By: Ruben Dillon M.D. Signed By: 11/26/2437 DD/ TD/TT: Personnel Manager: Procedure Note Radiology, Radiologist, - 11/26/2024 [place] [address] Ultrasound Report Signed Patient: KIRA PURVIS LMR#: [id number] : 1990Acct:[id number] Age/Sex: 34 / FADM Date: 11/26/24 Loc: US Attending Dr: Thomas Cortes D.O. Ordering Physician: Thomas Cortes D.O. Date of Service: 11/26/24 Procedure(s): US OB transvaginal Accession Number(s): [id number] cc: Thomas Cortes D.O.; Physician,Non-Staff Nikky The [place] [id number] Patient Name: KIRA PURVIS MRN: [id number] date: 1990 Sex: F Assigned Patient Location: US Current Patient Location: US Accession/Order Number: [id number] Exam Date: 11/26/2024 08:36 Report Date: 11/26/2024 [...] M.D. Signed By:11/26/24 0937 DD/ 0935 TD/TT: Personnel Manager: us [facility] DO [facility] Final Result documented in this encounter Visit Diagnoses Not on filedocumented in this encounter
--- OUTSIDE RECORDS SUMMARY | 2025-05-02 15:01 | XMS_ITS | Encounter Summary ---
Author Organization [facility] Address [address] [place] [address] Care Team Providers Care Instructor Of Nursing Name Role Phone Unavailable Primary Care Provider Unavailabl e Encounter Details Date Type Department Care Team ([facility] Contact Info) Description 07/18/2023 Clinisync Result Encounter [facility] External Department Unsolicited Thomas Cortes, DO [facility] [address], [place] [id number] Social History Tobacco Use Types Packs/Day Years [...] Upcoming Encounters Date Type Department Care Team ([facility] Contact Info) Description 05/17/2025 11:40 AM EDT Routine [facility] BCP OB [address] [place] [address] Thomas Cortes DO [facility] [place] [address] documented as of this encounter Procedures Procedure Name Priority Date/Time Associated Diagnosis Comments US OB BPP W NON-STRESS 07/18/2023 3:07 PM EDT documented in this encounter Results * US OB BPP W NON-STRESS (07/18/2023 3:07 PM EDT) Anatomical Region Laterality Modality Other 07/18/2023 3:07 PM EDT Narrative 07/18/2023 3:07 [place] [address] Ultrasound Report Signed Patient: KIRA PURVIS MR#: [id number] 06 : 1990 Acct:[id number] Age/Sex: 32 / F ADM Date: 07/17/23 Loc: US Attending Dr: Thomas Cortes D.O. Ordering Physician: Thomas Cortes D.O. Date of Service: 07/17/23 Procedure(s): US OB BPP w non-stress Accession Number(s): [id number] cc: Thomas Cortes D.O.; Physician,Non-Staff [place] [address] Patient Name: KIRA PURVIS MRN: [facility]:[id number] date: 1990 Sex: F Assigned Patient Location: [facility] Current Patient Location: Accession/Order Number: [id number] Exam Date: 07/17/2023 16:00 Report Date: 07/18/2023 [...] M.D. Signed By: 07/18/231509 DD/ 06 TD/TT: Service Order Clerk: Procedure Note Radiology, Radiologist, - 08/01/2023 [place] [address] Ultrasound Report Signed Patient: KIRA PURVIS LMR#: [id number] 06 : 1990Acct:[id number] Age/Sex: 32 / FADM Date: 07/17/23 Loc: US Attending Dr: Thomas oCrtes D.O. Ordering Physician: Thomas Cortes D.O. Date of Service: 07/17/23 Procedure(s): US OB BPP w non-stress Accession Number(s): [id number] cc: Thomas Cortes D.O.; Physician,Non-Staff Nikky The [place] [address] Patient Name: KIRA PURVIS MRN: [id number] date: 1990 Sex: F Assigned Patient Location: [facility] Current Patient Location: Accession/Order Number: [id number] Exam Date: 07/17/2023 16:00 Report Date: 07/18/2023 [...] Dillon M.D. Signed By:07/18/231509 DD/ 06 TD/TT: Service Order Clerk: us Thomas Cortes DO [facility] Final Result documented in this encounter Visit Diagnoses Not on filedocumented in this encounter
--- OUTSIDE RECORDS SUMMARY | 2025-05-02 15:01 | XMS_ITS | Encounter Summary ---
Demographics Address [address] [place] [address] Mobile Phone Home Phone Email Address Email Address Preferred Language Swedish Marital Status Sikhism Affiliation Unknown Race White Ethnic Group Not or Lati no Author Organization [facility] tem Address [id number] [address] [place] [address] Support Name Relationship Address Phone Dariusz Purvis Emergency Contact [address] [place] [address] Sravani Villasenor Personal Relationship [address] [place] [address] Laura Cope Personal Relationship Unknown [phone] Care Team Providers Care Carpet Layer Name Role Phone Eli Azul MD Primary [...] on filedocumented in this encounter Care Teams Carpet Layer Relationship Specialty Start Date End Date Eli Azul MD PCP - General Pediatrics 06/23/18 documented as of this encounter
--- OUTSIDE RECORDS SUMMARY | 2025-05-02 15:01 | XMS_ITS | Encounter Summary ---
Demographics Address [address] [place] [address] Mobile Phone Home Phone Email Address Email Address Preferred Language Greek Marital Status Mu-Ism Affiliation Unknown Race White Ethnic Group Not or Lati no Author Organization [facility] tem Address [id number] [address] [place] [address] Support Name Relationship Address Phone Dariusz Purvis Emergency Contact [address] [place] [address] Sravani Villasenor Personal Relationship [address] [place] [address] Laura Cope Personal Relationship Unknown Care Team Providers Care Guard Driver Name Role Phone Eli Azul MD Primary Care Provider + Encounter Details Date Type Department Care Team (Late st Contact Info) Description 04/29/2025 Telephone Maternal- Medicine at [facility] [address] [place] [phone] Rufina Hurd CMA Social History Tobacco Use [...] Telephone Encounter - Rufina Hurd CMA - 04/29/2025 9:31 AM EDT CAR SHIFTER CALLED THE PATIENT. NO ANSWER. LEFT VM ASKING THE PATIENT TO GIVE US A CALL TO SCHEDULE HER 4 WEEK FOLLOW UP APPOINTMENT AT THE REQUEST OF HER PROVIDER. LEFT OUR NUMBER AND INSTRUCTED HER TO SELECT OPTION 3 TO REACH ONE OF OUR SCHEDULERS. documented in this encounter Plan of Treatment Not on file documented as of this encounter Visit Diagnoses Not on filedocumented in this encounter Care Teams Guard Driver Relationship Specialty Start Date End Date Eli Azul MD PCP - General Pediatrics 06/23/18 documented as of this encounter
--- OUTSIDE RECORDS SUMMARY | 2025-05-02 15:01 | XMS_ITS | Encounter Summary ---
Author Organization [facility] Address [address] [place] [address] Care Team Providers Care Energy Director Name Role Phone Unavailable Primary Care Provider Unavailabl e Encounter Details Date Type Department Care Team (Late st Contact Info) Description 04/28/2024 Clinisync Result Encounter [facility] External Department Unsolicited Thomas Cortes, [address] [place] [address] Social History Tobacco Use Types Packs/Day Years [...] OB [address] [facility] [place] [address] Thomas Cortes[address] [place] [address] documented as of this encounter Procedures Procedure Name Priority Date/Time Associated Diagnosis Comments US PELVIS W/ TRANSVAGINAL 04/28/2024 1:16 PM EDT documented in this encounter Results * US PELVIS W/ TRANSVAGINAL (04/28/2024 1:16 PM EDT) Anatomical Region Laterality Modality Other 04/28/2024 1:16 PM EDT Narrative 04/28/2024 1:19 PM EDT [address] [address] Ultrasound Report Signed Patient: KIRA PURVIS MR#: [id number] : 1990 Acct:[id number] Age/Sex: 33 / F ADM Date: 04/27/24 Loc: US Attending Dr: Thomas Cortes D.O. Ordering Physician: Thomas Cortes D.O. Date of Service: 04/27/24 Procedure(s): US pelvis w/ transvaginal Accession Number(s): [id number] cc: Thomas Cortes D.O.; Physician,Non-Staff Nikky [address] [address] Patient Name: KIRA PURVIS MRN: [facility]:[id number] date: 1990 Sex: F Assigned Patient Location: US Current Patient Location: Accession/Order Number: [id number] Exam Date: 04/27/2024 14:00 Report Date: 04/28/2024 [...] Signed By: 04/28/24 1319 DD/ 1316 TD/TT: Hobbing Machine Operator: Procedure Note Radiology, Radiologist, - 04/28/2024 [place] [address] Ultrasound Report Signed Patient: KIRA PURVIS LMR#: [id number] : 1990Acct:[id number] Age/Sex: 33 / FADM Date: 04/27/24 Loc: US Attending Dr: Thomas Cortes D.O. Ordering Physician: Thomas Cortes D.O. Date of Service: 04/27/24 Procedure(s): US pelvis w/ transvaginal Accession Number(s): [id number] cc: Thomas Cortes D.O.; Physician,Non-Staff Nikky The [place] [id number] Patient Name: KIRA PURVIS MRN: [id number] date: 1990 Sex: F Assigned Patient Location: US Current Patient Location: Accession/Order Number: [id number] Exam Date: 04/27/2024 14:00 Report Date: 04/28/2024 [...] M.D. Signed By:04/28/24 1319 DD/ 1316 TD/TT: Hobbing Machine Operator: us Thomas Sebastian DO [facility] Final Result documented in this encounter Visit Diagnoses Not on filedocumented in this encounter
--- OUTSIDE RECORDS SUMMARY | 2025-05-02 15:01 | XMS_ITS | Encounter Summary ---
Author Organization [facility] Address [address] [place] [place] [address] Care Team Providers Care Manager Transfer Name Role Phone Unavailable Primary Care Provider Unavailabl e Encounter Details Date Type Department Care Team (Late Contact Info) Description 01/24/2025 Abstract [facility] BCP OB [address] [place] [address] Nolan Cortes DO [address], [...] Routine [facility] BCP OB [address] [place] [address] Nolan Cortes DO [address] [place] [address] documented as of this encounter Visit Diagnoses Not on filedocumented in this encounter
--- OUTSIDE RECORDS SUMMARY | 2025-05-02 15:01 | XMS_ITS | Encounter Summary ---
Author Organization [facility] Address [address] [place] [address] Care Team Providers Care Prototype Carpenter Name Role Phone Unavailable Primary Care Provider Unavailabl e Encounter Details Date Type Department Care Team (Late Contact Info) Description 08/08/2023 Clinisync Result Encounter [facility] External Department Unsolicited Thomas Cortes[address] [place] [address] Social History Tobacco Use Types Packs/Day Years [...] Description 05/17/2025 11:40 AM EDT Routine [facility] OB [address] [place] [phone] Thomas Cortes[address] [place] [address] documented as of this encounter Procedures Procedure Name Priority Date/Time Associated Diagnosis Comments US OB GROWTH 08/08/2023 3:08 PM EDT documented in this encounter Results * US OB GROWTH (08/08/2023 3:08 PM EDT) Anatomical Region Laterality Modality Other 08/08/2023 3:08 PM EDT Narrative 08/08/2023 3:08 [place] [address] Ultrasound Report Signed Patient: KIRA PURVIS MR#: [id number] : 1990 Acct:[id number] Age/Sex: 32 / F ADM Date: 08/07/23 Loc: US Attending Dr: Thomas Cortes D.O. Ordering Physician: Thomas Cortes D.O. Date of Service: 08/07/23 Procedure(s): US OB growth Accession Number(s): [id number] cc: Thomas Cortes D.O.; Physician,Non-Staff [place] [address] Patient Name: KIRA PURVIS MRN: [facility]:[id number] date: 1990 Sex: F Assigned Patient Location: [facility] Current Patient Location: US Accession/Order Number: [id number] Exam Date: 08/07/2023 16:05 Report Date: 08/08/2023 [...] Signed By: 08/08/23 1511 DD/ 1508 TD/TT: Pipeman: Procedure Note Radiology, Radiologist, - 08/08/2023 [place] [address] Ultrasound Report Signed Patient: KIRA PURVIS LMR#: [id number] : 1990Acct:[id number] Age/Sex: 32 / FADM Date: 08/07/23 Loc: US Attending Dr: Thomas Cortes D.O. Ordering Physician: Thomas Cortes D.O. Date of Service: 08/07/23 Procedure(s): US OB growth Accession Number(s): [id number] cc: Thomas Cortes D.O.; Physician,Non-Staff [place] [address] Patient Name: KIRA PURVIS MRN: [facility]:[id number] date: 1990 Sex: F Assigned Patient Location: [facility] Current Patient Location: US Accession/Order Number: [id number] Exam Date: 08/07/2023 16:05 Report Date: 08/08/2023 [...] M.D. Signed By:08/08/23 1511 DD/ 1508 TD/TT: Pipeman: us Thomas Sebastian DO [facility] Final Result documented in this encounter Visit Diagnoses Not on filedocumented in this encounter
--- OUTSIDE RECORDS SUMMARY | 2025-05-02 15:01 | XMS_ITS | Encounter Summary ---
Author Organization [facility] Address [address] [place] [address] Care Team Providers Care Steel Rule Die Maker Apprentice Name Role Phone Unavailable Primary Care Provider Unavailabl e Encounter Details Date Type Department Care Team (Late Contact Info) Description 08/21/2023 Abstract [facility] OB [address] [place] [address] Nolan Cortes, [facility] Olivia Jeffries, [facility]11 Social History Tobacco Use Types [...] [address] Nolan Cortes, DO [address] [place], [facility]11 documented as of this encounter Visit Diagnoses Not on filedocumented in this encounter
--- OUTSIDE RECORDS SUMMARY | 2025-05-02 15:02 | XMS_ITS | Encounter Summary ---
Author Organization [facility] Address [address] [place] [address] Care Team Providers Care Terminal Gauger Supervisor Name Role Phone Unavailable Primary Care Provider Unavailabl e Encounter Details Date Type Department Care Team (Late Contact Info) Description 05/20/2023 Abstract [facility] OB [address] [place] [address] Nolan Cortes, [facility] Olivia Jeffries, [facility]11 Social History Tobacco Use Types Packs/Day Years [...] Routine [facility] OB [address] [place] [address] Nolan Cortes, DO [address] [place], [facility]11 documented as of this encounter Visit Diagnoses Not on filedocumented in this encounter
--- OUTSIDE RECORDS SUMMARY | 2025-05-02 15:02 | XMS_ITS | Encounter Summary ---
Author Organization [facility] Address [address] [place] [address] Care Team Providers Care Mobile Home Lot Utility Worker Name Role Phone Unavailable Primary Care Provider Unavailabl e Encounter Details Date Type Department Care Team (Late Contact Info) Description 04/25/[address] [facility] OB [address] [place] [address] Nolan Cortes, [facility] Olivia Jeffries, [facility]11 Social History Tobacco Use Types Packs/Day [...] Routine [facility] OB [address] [place] [address] Nolan Cortes, DO [address] [place], [facility]11 documented as of this encounter Visit Diagnoses Not on filedocumented in this encounter
--- OUTSIDE RECORDS SUMMARY | 2025-05-02 15:02 | XMS_ITS | Encounter Summary ---
Author Organization [facility] Address [address] [place] [address] Care Team Providers Care Inspector Purchased Parts Name Role Phone Unavailable Primary Care Provider Unavailabl e Encounter Details Date Type Department Care Team (Late Contact Info) Description 04/22/2023 Abstract [facility] OB [address] [place] [address] Nolan Cortes, [facility] Olivia Jeffries, [facility]11 Social History Tobacco Use Types Packs/Day [...] Routine [facility] OB [address] [place] [address] Nolan Cortes, DO [address] [place], [facility]11 documented as of this encounter Visit Diagnoses Not on filedocumented in this encounter
--- OUTSIDE RECORDS SUMMARY | 2025-05-02 15:02 | XMS_ITS | Encounter Summary ---
Author Organization [facility] Address [address] [place] [address] Care Team Providers Care Machine Silver Stripper Name Role Phone Unavailable Primary Care Provider Unavailabl e Encounter Details Date Type Department Care Team (Late st Contact Info) Description 04/14/2023 Abstract [facility] OB [address] [facility] [place] [phone] Nolan Cortes, DO [address] [place], [facility]11 Social [...] Description 05/17/2025 11:40 AM EDT Routine [facility] OB [address] [place] [address] Nolan Cortes, DO [address] [place], [place] [phone] documented as of this encounter Visit Diagnoses Not on filedocumented in this encounter
--- OUTSIDE RECORDS SUMMARY | 2025-05-02 15:02 | XMS_ITS | Clinical Summary ---
Demographics Address [address] [place] [address] Mobile Phone Home Phone Email Address Email Address Preferred Language Telugu Marital Status Congregational Affiliation Unknown Race White Ethnic Group Not or Lati no Author Organization [employer] tem Address [id number] [address] [place] [address] Support Name Relationship Address Phone Dariusz Purvis Emergency Contact [address] [place] [address] Sravani Villasenor Personal Relationship [address] [place] [address] Laura Cope Personal Relationship Unknown [phone] Care Team Providers Care Trials Manager Name Role Phone Eli Azul MD [...] pm with dinner 60 tablet 4 03/23/20 Active Active Problems Problem Noted Date Diagnosed Date Gestational diabetes mellitu s (GDM) in second trimester controlled on oral hypoglycemic drug 03/23/2025 History of delivery 02/24/2023 Estimated Date of Delivery Comme nts Yes 06/24/2025 Based on last me nstrual period of 09/17/2024 Encounters Date Type Department Care Team Description 04/29/2025 Telephone Maternal- Medicine at [facility] [address] [place] [address] Rufina Hurd CMA 04/19/2025 10:30 AM EDT Telemedicine Maternal- Medicine at [facility] [address] [place] [address] Kenya Acosta, UDAY Gestational diabetes mellitus (GDM) in second trimester controlled on oral hypoglycemic drug (Primary Dx) 04/19/2025 Travel 04/19/2025 Telephone Maternal- Medicine at [facility] [address] [place] [address] Rufina Hurd CMA 04/01/2025 Telephone Maternal- Medicine at [facility] [address] [place] [address] Violet Lopez RN 03/23/2025 10:30 AM EDT Telemedicine Maternal- Medicine at [facility] [address] [place] [address] Iman Hall, PAINTER AND DECORATOR-PREMA Gestational diabetes mellitus (GDM) in second trimester controlled on oral hypoglycemic drug 03/23/2025 Travel 03/23/2025 Telephone Maternal- Medicine at [facility] [address] [place] [address] Rufina Hurd CMA 03/16/2025 Telephone Maternal- Medicine at [facility] [address] [place] [address] Violet Lopez, RN 03/15/2025 Orders Only Maternal- Medicine at [facility] [address] [place] [address] Rufina Hurd, TAINA 03/08/2025 1:00 PM EDT Office Visit Maternal- Medicine at [facility] [address] [facility] [place] [address] Kenya Acosta, UDAY Gestational diabetes mellitus (GDM) in second trimester controlled on oral hypoglycemic drug (Primary Dx) 03/08/2025 Travel 03/08/2025 Telephone Maternal- Medicine at [facility] [address] [place] [address] Rufina Hurd, [facility] 03/04/2025 Telephone Maternal- Medicine at [facility] [address] [facility] [place] [address] Shima Renee, URIEL 03/02/2025 Telephone Maternal- Medicine at [facility] [address] [facility] [place] [address] Shima Renee, URIEL 02/24/2025 Telephone Maternal- Medicine at [facility] [address] [facility] [place] [place] [address] Jewels Pedersen LD 02/16/2025 9:30 AM EDT Support Visit Maternal- Medicine at [facility] [address] [facility] [place] [address] Violet Lopez, RN Alexandria Iraheta RD Diet controlled gestational diabetes mellitus (GDM) in second trimester (Primary Dx); Encounter for diabetes education 02/16/2025 Travel 02/07/2025 Orders Only Maternal- Medicine at [facility] [address] [facility] [place] [address] Ref Prov, Not In System 02/07/2025 Abstract Maternal- Medicine at [facility] [address] [place] [address] Iman Hall APRN-CNP from Last 3 Months [...] Date Last Done Comments Depression Screening 2004 Tobacco Screening 2004 DTaP,Tdap and Td Vaccines (1 - Tdap) 2011 Influenza Vaccine 07/11/2025 10/10/2023 Pap Smear 02/19/2026 02/19/2023 Adult BMI Screening 03/08/2026 03/08/2025 Medical Devices Not on file Procedures Procedure Name Priority Date/Time Associated Diagnosis Comments POCT HEMOGLOBIN A1C Routine 03/08/2025 2 :02 PM EDT Gestational diabetes mellitus (GDM) in second trimester controlled on oral hypoglycemic drug GLUCOSE RANDOM OR FASTING Routine 02/16/2025 Diet controlled gestational diabetes mellitus (GDM) in second trimester from Last 3 Months Results * POCT Hemoglobin A1c (03/08/2025 2:02 PM EDT) External Poct Hgb A1C 5.8 4 - 7 % MANUALLY TRANSCRIBED RESULTS Blood 03/08/2025 2:02 PM EDT Kenya Acosta PA-C POINT OF CARE TEST ORDERABL ES Final Result Performing Organization Address City/[facility] de Phone Number MANUALLY TRANSCRIBED RESULTS * Glucose random or fasting- POCT (02/16/2025) External Glucose Fasting Or Random (Fbs) 110 MANUALLY TRANSCRIBED RESULTS 02/16/2025 Iman Hall APRN-[facility] LAB BLOOD ORDERABLES Fi nal Result Performing Organization Address City/State/[facility] Co de Phone Number MANUALLY TRANSCRIBED RESULTS from Last 3 Months Insurance * Guarantor: Charlene Purvis Account Type Relation to Patient Date of Phone Billing Address Personal/Family Self 1990 [address] [place] [address] EN Care Teams Trials Manager Relationship Specialty Start Date End Date Eli Azul MD PCP - General Pediatrics 06/23/18
--- OUTSIDE RECORDS SUMMARY | 2025-05-02 15:02 | XMS_ITS | Encounter Summary ---
Author Organization [facility] Address [address] [place] [address] Care Team Providers Care Rehabilitation Clerk Name Role Phone Unavailable Primary Care Provider Unavailabl e Encounter Details Date Type Department Care Team (Late Contact Info) Description 04/18/2025 Clinisync Result Encounter [facility] External Department Unsolicited Thomas Cortes, DO [address] [place], [place] [phone] Social History Tobacco Use Types Packs/Day Years [...] Routine [facility] OB [address] [place] [address] Thomas Cortes DO [address] [place], [place] [phone] documented as of this encounter Procedures Procedure Name Priority Date/Time Associated Diagnosis Comments US OB BPP W NON-STRESS 04/18/2025 4:07 PM EDT documented in this encounter Results * US OB BPP W NON-STRESS (04/18/2025 4:07 PM EDT) Anatomical Region Laterality Modality Other 04/18/2025 4:07 PM EDT Narrative 04/18/2025 4:09 PM EDT [address] [address] Ultrasound Report Signed Patient: KIRA PURVIS MR#: [id number] : 1990 Acct:[id number] Age/Sex: 34 / F ADM Date: 04/18/25 Loc: US Attending Dr: Thomas Cortes D.O. Ordering Physician: Thomas Cortes D.O. Date of Service: 04/18/25 Procedure(s): US OB BPP w non-stress Accession Number(s): [id number] cc: Thomas Cortes D.O.; Physician,Non-Staff [place] [id number] Patient Name: KIRA PURVIS MRN: [id number] date: 1990 Sex: F Assigned Patient Location: [facility] Current Patient Location: Accession/Order Number: [id number] Exam Date: 04/18/2025 16:06 Report Date: 04/18/2025 [...] Olvera M.D. 04/18/2025 4:07 PM Dictation Location: [place] [address] Electronically authenticated by: [id number] Y Date: 04/18/2025 16:07 Dictated By: Harlan Olvera D.O. Signed By: 04/18/25 1609 DD/ 160 TD/TT: Mold Shop Supervisor: Procedure Note Radiology, Radiologist, MD - 04/18/2025 [place] [address] Ultrasound Report Signed Patient: KIRA PURVIS LMR#: [id number] : 1990Acct:[id number] Age/Sex: 34 / FADM Date: 04/18/25 Loc: US Attending Dr: Thomas Cortes D.O. Ordering Physician: Thomas Cortes D.O. Date of Service: 04/18/25 Procedure(s): US OB BPP w non-stress Accession Number(s): [id number] cc: Thomas Cortes D.O.; Physician,Non-Staff Nikky [place] [id number] Patient Name: KIRA PURVIS MRN: [id number] date: 1990 Sex: F Assigned Patient Location: [facility] Current Patient Location: Accession/Order Number: [id number] Exam Date: 04/18/2025 16:06 Report Date: 04/18/2025 [...] Olvera M.D. 04/18/2025 4:07 PM Dictation Location: [place] [address] Electronically authenticated by: [id number] Y Date: 6:07 Dictated By: Harlan Olvera D.O. Signed By:04/18/25 1609 DD/ 1607 TD/TT: Mold Shop Supervisor: us Thomas Cortes DO [facility] Final Result documented in this encounter Visit Diagnoses Not on filedocumented in this encounter
--- OUTSIDE RECORDS SUMMARY | 2025-05-02 15:02 | XMS_ITS | Encounter Summary ---
Author Organization [facility] Address [address] [place] [address] Care Team Providers Care Head Silverman Name Role Phone Unavailable Primary Care Provider Unavailabl e Encounter Details Date Type Department Care Team (Late Contact Info) Description 05/02/2025 Bamboo flowsheet [facility] OB [address] [facility] [place] [address] Kristan Fish PA [address] [place], [facility] Social History Tobacco Use Types Packs/Day Years [...] Description 05/17/2025 11:40 AM EDT Routine [facility] OB [address] [facility] [place] [address] Nolan Cortes DO [address] Jeffries, [facility] documented as of this encounter Visit Diagnoses Not on filedocumented in this encounter
--- OUTSIDE RECORDS SUMMARY | 2025-05-02 15:02 | XMS_ITS | Encounter Summary ---
Author Organization [facility] Address [address] [place] [address] Care Team Providers Care Proof Inspector Name Role Phone Unavailable Primary Care Provider Unavailabl e Encounter Details Date Type Department Care Team (Late Contact Info) Description 06/11/2023 Abstract NOM[facility] [address] [place] [address] Kristan Fish PA [address] [place] [address] Dr [place], [facility]11 Social History Tobacco [...] Description 05/17/2025 11:40 AM EDT Routine NOM[facility] [address] [place] [address] Nolan Cortes DO [address] [place] [address] Dr Rocael Jeffries, [facility]11 documented as of this encounter Visit Diagnoses Not on filedocumented in this encounter
--- OUTSIDE RECORDS SUMMARY | 2025-05-02 15:02 | XMS_ITS | Encounter Summary ---
Author Organization [facility] Address [address] [place] [address] Care Team Providers Care Rolling Machine Operator Name Role Phone Unavailable Primary Care Provider Unavailabl e Encounter Details Date Type Department Care Team (Late Contact Info) Description 04/24/2023 Abstract [facility] OB [address] [place] [address] Nolan Cortes, [facility] Olivia Jeffries, [facility]11 Social History Tobacco Use Types Packs/Day [...] Routine [facility] OB [address] [place] [address] Nolan Cortes, DO [address], [facility]11 documented as of this encounter Visit Diagnoses Not on filedocumented in this encounter
--- OUTSIDE RECORDS SUMMARY | 2025-05-02 15:02 | XMS_ITS | Encounter Summary ---
Author Organization [facility] Address [address] [place] [address] Care Team Providers Care Tail End Rider Name Role Phone Unavailable Primary Care Provider Unavailabl e Encounter Details Date Type Department Care Team (Late st Contact Info) Description 04/14/2023 Abstract [facility] OB [address] [place] [address] Nolan Cortes, DO [address] [place], [facility] [...] Description 05/17/2025 11:40 AM EDT Routine [facility] OB [address] [facility] [place] [address] Nolan Cortes, DO [address] [place], [place] [address] documented as of this encounter Visit Diagnoses Not on filedocumented in this encounter
--- OUTSIDE RECORDS SUMMARY | 2025-05-02 15:02 | XMS_ITS | Encounter Summary ---
Author Organization [facility] Address [address] [place] [address] Care Team Providers Care Actimize Architect Name Role Phone Unavailable Primary Care Provider Unavailabl e Encounter Details Date Type Department Care Team (Late Contact Info) Description 02/01/2025 Abstract [facility] OB [address] [place] [address] Nolan Cortes DO [address] [place], [facility]11 Social History Tobacco Use Types [...] Routine [facility] OB [address] [place] [address] Nolan Cortes DO [address] [place] [address] documented as of this encounter Visit Diagnoses Not on filedocumented in this encounter
--- OUTSIDE RECORDS SUMMARY | 2025-05-02 15:02 | XMS_ITS | Encounter Summary ---
Author Organization [facility] Address [address] [place] [address] Care Team Providers Care Talent Consultant Name Role Phone Unavailable Primary Care Provider Unavailabl e Encounter Details Date Type Department Care Team (Late Contact Info) Description 04/25/2025 Clinisync Result Encounter N[facility] External Department Unsolicited Thomas Cortes, DO [address] [place], [place] [phone] Social History Tobacco Use Types Packs/Day Years [...] Routine [facility] OB [address] [place] [address] Thomas Cortes DO [address] [place], [place] [phone] documented as of this encounter Procedures Procedure Name Priority Date/Time Associated Diagnosis Comments US OB BPP W NON-STRESS 04/25/2025 9:36 PM EDT documented in this encounter Results * US OB BPP W NON-STRESS (04/25/2025 9:36 PM EDT) Anatomical Region Laterality Modality Other 04/25/2025 9:36 PM EDT Narrative 04/25/2025 9:38 PM EDT [address] [address] Ultrasound Report Signed Patient: KIRA PURVIS MR#: [id number] : 1990 Acct:[id number] Age/Sex: 34 / F ADM Date: 04/25/25 Loc: US Attending Dr: Thomas Cortes D.O. Ordering Physician: Thomas Cortes D.O. Date of Service: 04/25/25 Procedure(s): US OB BPP w non-stress Accession Number(s): [id number] cc: Thomas Cortes D.O.; Physician,Non-Staff Nikky [place] [id number] Patient Name: KIRA PURVIS MRN: [id number] date: 1990 Sex: F Assigned Patient Location: [facility] Current Patient Location: Accession/Order Number: [id number] Exam Date: 04/25/2025 21:35 Report Date: 04/25/2025 21:36 At the request of: THOMAS CORTES DO Procedure: US OB BPP w non-stress Ultrasound biophysical profile HISTORY: Gestational diabetes Adequate breathing movement, gross body movement, tone and amniotic fluid volume for total score of 8 out of 8. The amniotic fluid index is 16.1cm within normal limits. The heart rate 147 bpm. US/US OB BPP w non-stress IMPRESSION: Adequate ultrasound biophysical profile Impression dictated by: Harlan Olvera M.D. 04/25/2025 9:36 PM Dictation Location: [place] [address] Electronically authenticated by: [id number] Y Date: 04/25/2025 21:36 Dictated By: Harlan Olvera D.O. Signed By: 04/25/252137 DD/ 35 TD/TT: Bell Clerk: Procedure Note Radiology, Radiologist, MD - 04/25/2025 The [place] [id number] Ultrasound Report Signed Patient: KIRA PURVIS LMR#: [id number] : 1990Acct:[id number] Age/Sex: 34 / FADM Date: 04/25/25 Loc: US Attending Dr: Thomas Cortes D.O. Ordering Physician: Thomas Cortes D.O. Date of Service: 04/25/25 Procedure(s): US OB BPP w non-stress Accession Number(s): [id number] cc: Thomas Cortes D.O.; Physician,Non-Staff Nikky The [place] [id number] Patient Name: KIRA PURVIS MRN: [facility]:[id number] date: 1990 Sex: F Assigned Patient Location: [facility] Current Patient Location: Accession/Order Number: [id number] Exam Date: 04/25/2025 21:35 Report Date: 04/25/2025 21:36 At the request of: THOMAS CORTES DO Procedure: US OB BPP w non-stress Ultrasound biophysical profile HISTORY: Gestational diabetes Adequate breathing movement, gross body movement, tone and amniotic fluid volume for total score of 8 out of 8. The amniotic fluidindex is 16.1cm within normal limits. The heart rate 147 bpm. US/US OB BPP w non-stress IMPRESSION: Adequate ultrasound biophysical profile Impression dictated by: Harlan Olvera M.D. 04/25/2025 9:36 PM Dictation [facility] Electronically authenticated by: [id number] Y Date: 1:36 Dictated By: Harlan Olvera D.O. Signed By:04/25/252137 DD/ 35 TD/TT: Bell Clerk: us Thomas Cortes DO [facility] Final Result documented in this encounter Visit Diagnoses Not on filedocumented in this encounter
--- OUTSIDE RECORDS SUMMARY | 2025-05-02 15:02 | XMS_ITS | Encounter Summary ---
Author Organization [facility] Address [address] [place] [address] Care Team Providers Care Disabilities Services Officer Name Role Phone Unavailable Primary Care Provider Unavailabl e Encounter Details Date Type Department Care Team (Late st Contact Info) Description 04/21/2023 Abstract [facility] OB [address] [facility] [place] [address] Nolan Cortes, DO [address] [place], [facility]11 Social History Tobacco Use Types Packs/Day [...] Description 05/17/2025 11:40 AM EDT Routine [facility] OB [address] [facility] [place] [address] Nolan Cortes, DO [address] [place], [place] [id number] documented as of this encounter Visit Diagnoses Not on filedocumented in this encounter
--- OUTSIDE RECORDS SUMMARY | 2025-05-02 15:02 | XMS_ITS | Encounter Summary ---
Author Organization [facility] Address [address] [place] [address] Care Team Providers Care Cardroom Plastic Card Grader Name Role Phone Unavailable Primary Care Provider Unavailabl e Encounter Details Date Type Department Care Team (Late Contact Info) Description 01/27/2025 Abstract [facility] OB [address] [place] [address] Nolan Cortes DO [address], [facility]11 Social History Tobacco Use Types [...] Routine [facility] OB [address] [place] [address] Nolan Cortes DO [address] [place] [address] documented as of this encounter Visit Diagnoses Not on filedocumented in this encounter
--- OUTSIDE RECORDS SUMMARY | 2025-05-02 15:02 | XMS_ITS | Encounter Summary ---
Author Organization [facility] Address [address] [place] [address] Care Team Providers Care Computerized Table Cutter Name Role Phone Unavailable Primary Care Provider Unavailabl e Encounter Details Date Type Department Care Team (Late Contact Info) Description 04/06/2025 Abstract [facility] OB [address] [place] [address] Nolan Cortes DO [address], [facility] [...] Routine [facility] OB [address] [place] [address] Nolan Cortes DO [address] [place] [address] documented as of this encounter Visit Diagnoses Not on filedocumented in this encounter
--- OUTSIDE RECORDS SUMMARY | 2025-05-02 15:02 | XMS_ITS | Encounter Summary ---
Author Organization [facility] Address [address] [place] [address] Care Team Providers Care Furniture Packer Name Role Phone Unavailable Primary Care Provider Unavailabl e Encounter Details Date Type Department Care Team (Late st Contact Info) Description 04/18/2023 Abstract [facility] OB [address] [facility] [place] [phone] Nolan Cortes, DO [address], [facility]11 Social [...] Description 05/17/2025 11:40 AM EDT Routine [facility] OB [address] [facility] [address] Nolan Cortes, DO [address], [place] [id number] documented as of this encounter Visit Diagnoses Not on filedocumented in this encounter
--- OUTSIDE RECORDS SUMMARY | 2025-05-02 15:02 | XMS_ITS | Encounter Summary ---
Author Organization [facility] Address [address] [place] [place] [address] Care Team Providers Care Isotope Technologist Name Role Phone Unavailable Primary Care Provider Unavailabl e Encounter Details Date Type Department Care Team (Late Contact Info) Description 03/07/2025 Abstract [facility] OB [address] [place] [address] Nolan Cortes DO [address], [facility]11 Social History Tobacco Use Types Packs/Day [...] Routine [facility] OB [address] [place] [address] Nolan Cortes DO [address] [place] [address] documented as of this encounter Visit Diagnoses Not on filedocumented in this encounter
--- OUTSIDE RECORDS SUMMARY | 2025-05-02 15:02 | XMS_ITS | Encounter Summary ---
Demographics Address [address] [place] [address] Mobile Phone Home Phone Email Address Email Address Preferred Language Mongolian Marital Status Tenriism Affiliation Unknown Race White Ethnic Group Not or Lati no Author Organization [facility] [employer] tem Address [facility]-[id number] [address] [place] [address] Support Name Relationship Address Phone Dariusz Purvis Emergency Contact [address] [place] [address] Sravani Villasenor Personal Relationship [address] [place] [address] Laura Cope Personal Relationship Unknown [phone] Care Team Providers Care Chute Feeder Name Role Phone Eli Azul MD Primary Care Provider + Encounter Details Date Type Department Care Team (Late st Contact Info) Description 03/15/2025 Orders Only Maternal- Medicine at [facility] [address] [place] [address] Rufina Hurd CMA Social History Tobacco Use [...] on filedocumented in this encounter Care Teams Chute Feeder Relationship Specialty Start Date End Date Eli Azul MD PCP - General Pediatrics 06/23/18 documented as of this encounter
--- OUTSIDE RECORDS SUMMARY | 2025-05-02 15:02 | XMS_ITS | Clinical Summary ---
Author Organization [facility] Address [address] [place] [address] Care Team Providers Care Gas Torch Brazier Name Role Phone Unavailable Primary Care Provider Unavailabl e Allergies No known active allergies Medications Alcohol Swabs (Alcohol Prep Pad) 70 % padsIndications:G estational diabetes mellitus (GDM), antepartum, gestational diabetes method of control unspecified ([facility]),Elevate d glucose tolerance test Apply 1 Pad [...] antepartum, gestational diabetes method of control unspecified ([facility]),Elevate d glucose tolerance test USE TO CHECK [...] Benign essential hypertensio n in obstetric context ([facility]) 04/18/2023 Exposure to cat feces 04/18/2023 Gestational diabetes ([facility]) 04/18/2023 Nausea 04/18/2023 History of delivery 02/24/2023 Estimated Date of Delivery Comme nts Yes 06/24/2025 Based on last me nstrual period of 09/17/2024 Encounters Date Type Department Care Team Description 05/02/2025 10:50 AM EDT Routine [facility] OB [address] [place] [address] [place] [address] Kristan Fish PA 32 weeks gestation of ([facility]); Third trimester ([facility]) 05/02/2025 Bamboo flowsheet [facility] OB [address] [facility] [place] [address] Kristan Fish PA 04/25/2025 Clinisync Result Encounter [facility]OM[facility] External Department Unsolicited Thomas Cortes, DO 04/18/2025 1:00 PM EDT Routine [facility] OB [address] [place] [address] [place] [address] Thomas Cortes, 30 weeks gestation of ([facility]); Third trimester ([facility]) 04/18/2025 Clinisync Result Encounter [facility] External Department Unsolicited Thomas Cortes, DO 04/18/2025 Bamboo flowsheet [facility] OB [address] [place] [address] Thomas Cortes, DO 04/11/2025 Clinisync Result Encounter [facility] External Department Unsolicited Thomas Cortes, DO 04/11/2025 Travel 04/06/2025 Abstract [facility] OB [address] [place] [address] Thomas Cortes, DO 04/05/2025 1:50 PM EDT Routine [facility] OB [facility] [place] [address] Thomas Cortes, Third trimester ([facility]); 28 weeks gestation of ([facility]); Gestational diabetes mellitus (GDM), antepartum, gestational diabetes method of control unspecified ([facility]); H/O: hypertension 04/05/2025 Bamboo flowsheet [facility] OB [address] [place] [address] Thomas Cortes, 03/14/2025 1:50 PM EDT Routine [facility] OB [address] [facility] [place] [address] Thomas Cortes, Second trimester ([facility]); 25 weeks gestation of ([facility]) 03/14/2025 Bamboo flowsheet [facility] OB [address] [facility] [place] [address] Thomas Cortes, 03/08/2025 Telephone [facility] OB [address] [facility] [place] [address] Suze Hendrix MA 03/07/2025 Abstract [facility] OB [address] [facility] [place] [address] Thomas Cortes, 03/07/2025 Clinisync Result Encounter [facility]S External Department Unsolicited Thomas Cortes, 02/21/2025 1:20 PM EDT Routine [facility] OB [address] [place] [address] Thomas Cortes, Second trimester ([facility]); 22 weeks gestation of ([facility]) 02/21/2025 Bamboo flowsheet [facility] OB [address] [facility] [place] [address] Thomas Cortes, 02/18/2025 Refill [facility] OB [address] [facility] [place] [address] Thomas Cortes, Gestational diabetes mellitus (GDM), antepartum, gestational diabetes method of control unspecified ([facility]); Elevated glucose tolerance test 02/17/2025 Telephone [facility] OB [address] [place] [address] Suze Hendrix MA 02/14/2025 1:00 PM EDT Ancillary Procedure [facility] OB [facility] [place] [address] Screening, , for anatomic survey ([facility]) 02/14/2025 Travel 02/07/2025 Clinisync Result Encounter [facility] External Department Unsolicited Thomas Cortes, 02/07/2025 Travel 02/01/2025 Abstract [facility] OB [facility] [place] [address] Thomas Cortes, 02/01/2025 Telephone [facility] OB [facility] [place] [address] Thomas Cortes, from Last 3 Months Family History Medical [...] oz) 05/02/2025 10:56 A M EDT Height 170.2 cm (5' 7 ) 09/09/2023 1:05 PM EDT Body Mass Index 47.16 09/09/2023 1:05 PM EDT Plan of Treatment Upcoming Encounters Date Type Department Care Team (Late st Contact Info) Description 05/17/2025 11:40 AM EDT Routine [facility] OB [address] [place] [address] Thomas Cortes, DO [address] [place] [address] Procedures Procedure Name Priority Date/Time Associated Diagnosis Comments POCT URINALYSIS DIPSTICK Routine 05/02/2025 11:00 AM EDT 32 weeks gestation of ([facility]) Third trimester ([facility]) US OB BPP W NON-STRESS 04/25/2025 9:36 PM EDT US OB BPP W NON-STRESS 04/18/2025 4:07 PM EDT POCT URINALYSIS DIPSTICK Routine 04/18/2025 1:14 PM EDT 30 weeks gestation of ([facility]) Third trimester ([facility]) US OB BPP W NON-STRESS 04/11/2025 4:05 PM EDT POCT URINALYSIS DIPSTICK Routine 04/05/2025 2:19 PM EDT Third trimester ([facility]) US OB INCOMPLETE ANATOMY 03/07/2025 12:42 PM EDT POCT URINALYSIS DIPSTICK Routine 02/21/2025 2:08 PM EDT Second trimester ([facility]) US OB 14+ WEEKS ANATOMY SCAN Routine 02/14/2025 2:03 PM EDT Screening, , for anatomic survey ([facility]) AFP, SERUM, OPEN SPINA BIFIDA Routine 02/07/2025 11:20 AM EDT from Last 3 Months Results * (ABNORMAL) POCT urinalysis dipstick manually resulted (05/02/2025 11:00 AM EDT) Only the most recent of4 resultswithin [...] OF CARE TEST ENTER/EDIT ORDERABLES Final Result * US OB BPP W NON-STRESS (04/25/2025 9:36 PM EDT) Only the most recent of3 resultswithin the time period is included. Anatomical Region Laterality Modality Other 04/25/2025 9:36 PM EDT Narrative 04/25/2025 9:38 PM EDT [address] [address] Ultrasound Report Signed Patient: CHARLENE PURVIS MR#: [id number] : 1990 Acct:[id number] Age/Sex: 34 / F ADM Date: 04/25/25 Loc: US Attending Dr: Thomas Cortes D.O. Ordering Physician: Thomas Cortes D.O. Date of Service: 04/25/25 Procedure(s): US OB BPP w non-stress Accession Number(s): [id number] cc: Thomas Cortes D.O.; Physician,Non-Staff M.Daisy [address] [address] Patient Name: CHARLENE PURVIS MRN: [facility]:[id number] date: 1990 Sex: F Assigned Patient Location: [facility] Current Patient Location: Accession/Order Number: [id number] Exam Date: 04/25/2025 21:35 Report Date: 04/25/2025 [...] Olvera M.D. 04/25/2025 9:36 PM Dictation Location: [place] [address] Electronically authenticated by: [id number] Y Date: 04/25/2025 21:36 Dictated By: Harlan Olvera D.O. Signed By: 04/25/252137 DD/ 35 TD/TT: Emergency Room Registered Nurse: Procedure Note Radiology, Radiologist, MD - 04/25/2025 [place] [address] Ultrasound Report Signed Patient: CHARLENE PURVIS LMR#: [id number] : 1990Acct:[id number] Age/Sex: 34 / FADM Date: 04/25/25 Loc: US Attending Dr: Thomas Cortes D.O. Ordering Physician: Thomas Cortes D.O. Date of Service: 04/25/25 Procedure(s): US OB BPP w non-stress Accession Number(s): [id number] cc: Thomas Cortes D.O.; Physician,Non-Staff Nikky The [place] [id number] Patient Name: CHARLENE PURVIS MRN: [facility]:[id number] date: 1990 Sex: F Assigned Patient Location: [facility] Current Patient Location: Accession/Order Number: [id number] Exam Date: 04/25/2025 21:35 Report Date: 04/25/2025 [...] Olvera M.D. 04/25/2025 9:36 PM Dictation Location: [employer] Electronically authenticated by: [id number] Y Date: 1:36 Dictated By: Harlan Olvera D.O. Signed By:04/25/252137 DD/ 35 TD/TT: Emergency Room Registered Nurse: us Thomas Cortes DO [facility] Final Result * US OB INCOMPLETE ANATOMY (03/07/2025 12:42 PM EDT) Anatomical Region Laterality Modality Other 03/07/2025 12:4 2 PM EDT Narrative 03/07/2025 12:44 [place] [address] Ultrasound Report Signed Patient: CHARLENE PURVIS MR#: [id number] : 1990 Acct:[id number] Age/Sex: 34 / F ADM Date: 03/05/25 Loc: US Attending Dr: Thomas Cortes D.O. Ordering Physician: Thomas Cortes D.O. Date of Service: 03/05/25 Procedure(s): US OB incomplete anatomy Accession Number(s): [id number] cc: Thomas Cortes D.O.; Physician,Non-Staff Nikky The [address] [address] Patient Name: CHARLENE PURVIS MRN: [facility]:[id number] date: 1990 Sex: F Assigned Patient Location: US Current Patient Location: Accession/Order Number: [id number] Exam Date: 03/07/2025 12:39 Report Date: 03/07/2025 [...] Jr., D.O. 03/07/2025 12:42 PM Dictation Location: [place] [address] Electronically authenticated by: [id number] Y Date: 03/07/2025 12:42 Dictated By: Jacinto Rivas M.D. Signed By: 03/07/25 1244 DD/ 1242 TD/TT: Emergency Room Registered Nurse: Procedure Note Radiology, Radiologist, MD - 03/07/2025 [place] [address] Ultrasound Report Signed Patient: CHARLENE PURVIS LMR#: [id number] : 1990Acct:[id number] Age/Sex: 34 / FADM Date: 03/05/25 Loc: US Attending Dr: Thomas Cortes D.O. Ordering Physician: Thomas Cortes D.O. Date of Service: 03/05/25 Procedure(s): US OB incomplete anatomy Accession Number(s): [id number] cc: Thomas Cortes D.O.; Physician,Non-Staff Nikky The [place] [id number] Patient Name: CHARLENE PURVIS MRN: [facility]:[id number] date: 1990 Sex: F Assigned Patient Location: Current Patient Location: Accession/Order Number: [id number] Exam Date: 03/07/2025 12:39 Report Date: 03/07/2025 [...] visualized. Impression dictated by: Jacinto Rivas Jr., DMyaOMya 03/07/2025 12:42 PM Dictation Location: [place] [address] Electronically authenticated by: [id number] Y Date: 2:42 Dictated By: Jacinto Rivas M.D. Signed By:03/07/25 1244 DD/ 1242 TD/TT: Emergency Room Registered Nurse: us Thomas Cortes DO [facility] Final [...] II, MD, PHD at 15-Feb-2025 11:25:23 PM [facility] Procedure Note Mony Arenas MD - [...] of the outflow tracts and kidneys. A smkyc-[id number] ultrasound is recommended. Interpreted by: Electronically signed by MONY ARENAS II, MD, PHD [id number] 11:25:23 PM [facility] us Thomas Cortes DO [facility] OB US PROCEDURES Final Resul t * AFP, SERUM, OPEN SPINA BIFIDA (02/07/2025 11:20 AM EDT) RESULTS Report . [facility] TEST RESULTS: *Screen Negative* . TB GEST. AGE ON COLLECTION DATE 20.4 . weeks TB GESTAT. AGE BASED ON LMP . [facility] Comment: Recalculations are not recommended when gestational dating by LMP and ultrasound are within 10 days. [age] . [age] TB RACE . [facility] WEIGHT 289 . lbs [facility] INSULIN DEP DIABETES No . [facility] MULTIPLE GESTATION No . [facility] AFP VALUE 34.5 . ng/mL TB AFP MOM 0.84 . [facility] [place] [address] [place] [address] . [facility] INTERPRETATION Comment . [facility] Comment: Interpretation: Screen Negative This [...] Customer Services to discuss available options. The [employer] recommends amniocentesis be offered to women age 35 and older. COMMENT: Comment . [facility] Comment: Tiffany Shah, Ph.D., [facility] Director References: Available Upon Request. Multiples Of Median Cutoffs For AFP Elevations Steiner 2.5 Black 2.8 IDD 2.0 Twins 4.5 Abbreviation Definitions IDD - Insulin Dep Diabetes OSBR - Open Spina Bifida Risk For further inquiries contact [employer] [facility] at [phone]. This test was developed and its performance characteristics determined by [employer]. It has not been cleared or approved by the Food and Drug Administration. Performed at: [facility] [employer] [facility] [address] [place], [place] [id number] Dairy Specialist: Rogelio Rice [facility], Phone: [phone] 02/07/2025 11:2 0 AM EDT 02/07/2025 11:34 AM EDT Narrative ISAAK - 02/09/2025 12:07 AM EDT N N LMP [id number] 18 N 1 Y 289 N N N N N White/ us Thomas Sebastian DO LAB BLOOD ORDERABLES Final Resul t [facility] from Last 3 Months Insurance [facility]
[2025-05-02 15:18] VITALS: BP 125/75; PULSE 96
== END 2025-05-02 15:46 | disposition home or self-care (01) ==
LOC: US 14:58 → FBC 14:59
PROVIDERS: Visit Provider Obstetrics & Gynecology
DX: O24.419 Gestational diabetes mellitus in pregnancy, unspecified control (principal); Z3A.32 32 weeks gestation of pregnancy
CPT/HCPCS: 76818

== ENCOUNTER 2025-05-05 14:57 | Outpatient (OUT) | payer BC, SELFPAY ==
--- OUTSIDE RECORDS SUMMARY | 2025-05-02 10:50 | XMS_ITS | Encounter Summary ---
Author Organization [facility] Address [address] [place] [address] Care Team Providers Care Coding Compliance Manager Name Role Phone Unavailable Primary Care Provider Unavailabl e Reason for Visit * Reason Comments Routine Visit Encounter Details Date Type Department Care Team ([facility] Contact Info) Description 05/02/2025 10:50 AM EDT Routine [facility] [address] [place] [phone] Kristan Fish PA [address] [place], [facility] 32 weeks gestation of ([facility]); Third trimester ([facility]) Social History Tobacco Use Types Packs/Day [...] Sign Reading Time Taken Comments Blood Pressure 130/82 05/02/2025 10:56 AM EDT Pulse - - Temperature - - Respiratory Rate - - Oxygen Saturation - - Inhaled Oxygen Concentration - - Weight 137 kg (301 lb 1.9 oz) 05/02/2025 10:56 A M EDT Height - - Body Mass Index 47.16 09/09/2023 1:05 PM EDT documented in this encounter Progress Notes * Armida Albrecht NP - 05/02/2025 10:50 AM EDT Reason for Appointment: Patient ID: Charlene [...] Noted Benign essential hypertension in obstetric context ([facility]) 04/18/2023 Exposure to cat feces 04/18/2023 Gestational diabetes ([facility]) 04/18/2023 Nausea 04/18/2023 History of delivery 02/24/2023 Resolved Ambulatory Problems Diagnosis Date Noted No Resolved Ambulatory Problems Past Medical History: Diagnosis Date Chronic hypertension affecting ([facility]) Exposure to cat feces, sequela Former smoker Herpes exposure History of miscarriage Morbid obesity with BMI of 40.0-44.9, adult ([facility]) HISTORY PAST MEDICAL HISTORY SOCIAL HISTORY Past Medical History: Diagnosis Date Chronic hypertension affecting ([facility]) Exposure to cat feces, sequela Former smoker Gestational diabetes ([facility]) Herpes exposure History of miscarriage Morbid obesity with BMI of 40.0-44.9, adult ([facility]) Social History Tobacco Use Smoking status: Former [...] nursing note reviewed. Exam conducted with a rewrite editor present. Vitals: Estimated body mass index is 47.16 kg/m?? as calculated from the following: Height as of 09/09/23: 5' 7 . Weight as of this encounter: 301 lb 1.9 oz. BP: 130/82 Patient's last menstrual period was 09/17/2024. ASSESSMENT & PLAN ICD-10-CM 1. 32 weeks gestation of ([facility]) Z3A.32 POCT urinalysis dipstick manually resulted 2. Third trimester ([facility]) Z34.93 POCT urinalysis dipstick manually resulted Return OB: Patient presents today for a routine obstetrics appointment. Patient is currently 32w3d . Patient states she is doing well but has complaints of being tired due to current . Patient has verbalizes frequent movement. labor precautions was discussed/given and patient was instructed to perform kick counts three times a day. Patient continues with Metformin and doing well. She is sending her glucose logs to [facility] for review. She has continued with NST / BPP. Orders Placed This Encounter Procedures POCT urinalysis dipstick manually resulted Follow Up: Patient is to return to office in 2 week for routine OB appointment. Documented by Armida Albrecht NP on behalf of: Armida Albrecht NP documented in this encounter Plan of Treatment Upcoming Encounters Date Type Department Care Team (Late st Contact Info) Description 05/17/2025 11:40 AM EDT Routine [facility] [address] [phone] Nolan Cortes, DO [address] [place] [address] documented as of this encounter Procedures Procedure Name Priority Date/Time Associated Diagnosis Comments POCT URINALYSIS DIPSTICK Routine 05/02/2025 11:00 AM EDT 32 weeks gestation of ([facility]) Third trimester ([facility]) documented in this encounter Results * (ABNORMAL) POCT urinalysis dipstick manually resulted (05/02/2025 11:00 AM EDT) Color, UA Yellow Clarity, UA Clear Glucose, UA Negative Negative - 2000(110) ++++ mg/dL Bilirubin, UA Negative Negative - 4(70) +++ mg/dL Ketones, UA Positive Negative - 160(16) ++++ mg/dL Comment:160 Spec Grav, UA 1.020 1 - 1.03 Blood, UA Negative Negative - 50 Eliceo/mcL pH, UA 6.5 5 - 9 Protein, UA Positive Negative - 2000(20) ++++ mg/dL Comment:30 Urobilinogen, UA 0.2 0.2 - 12 mg/dL Leukocytes, UA Positive Negative - 500+++ Danielle/mcL Comment:small Nitrite, UA Negative Negative - Positive Urine 05/02/2025 11:0 0 AM EDT Armida Albrecht NP POINT OF CARE TEST ENTER/EDIT ORDERABLES Final Result documented in this encounter Visit Diagnoses Diagnosis 32 weeks gestation of ([facility]) Third trimester ([facility]) state, incidental documented in this encounter
--- OUTSIDE RECORDS SUMMARY | 2025-05-05 15:00 | XMS_ITS | Encounter Summary ---
Demographics Address [address] [place] [address] Mobile Phone Home Phone Email Address Email Address Preferred Language Bulgarian Marital Status Yazidi Affiliation Unknown Race White Ethnic Group Not or Lati no Author Organization [facility] Address [id number] [address] [place] [address] Support Name Relationship Address Phone Dariusz Purvis Emergency Contact [address] [place] [address] Sravani Villasenor Personal Relationship [address] [place] [address] Laura Cope Personal Relationship Unknown [phone] Care Team Providers Care Business Operations Director Name Role Phone Eli Azul MD Primary Care Provider + Encounter Details Date Type Department Care Team (Late st Contact Info) Description 02/07/2025 Orders Only Maternal- Medicine at [facility] [address] [place] [phone] Ref Prov, [place] [address] Social History Tobacco Use Types Packs/Day Years [...] Care Team (Late st Contact Info) Description 05/24/2025 10:00 AM EDT Telemedicine Maternal- Medicine at [facility] [address] [place] [address] Kenya Acosta PA-C [address] [address] documented as of this encounter Procedures Procedure [...] 1:52 PM EST) Anatomical Region Laterality Modality OB-SALES FORCE DEVELOPER Ultrasound us Not In System Ref Prov IMG US ORDERABLES Final R esult documented in this encounter Visit Diagnoses Not on filedocumented in this encounter Care Teams Business Operations Director Relationship Specialty Start Date End Date Eli Azul MD PCP - General Pediatrics 06/23/18 documented as of this encounter
--- OUTSIDE RECORDS SUMMARY | 2025-05-05 15:00 | XMS_ITS | Encounter Summary ---
Author Organization [facility] Address [address] [place] [address] Care Team Providers Care Manager Of Tires Sales Name Role Phone Unavailable Primary Care Provider Unavailabl e Encounter Details Date Type Department Care Team (Late Contact Info) Description 08/08/2023 Clinisync Result Encounter [facility] External Department Unsolicited Thomas [address] [place] [address] Social History Tobacco Use Types Packs/Day Years [...] Description 05/17/2025 11:40 AM EDT Routine [facility] OB [address] [place] [address] Thomas [address] [place] [address] documented as of this encounter Procedures Procedure Name Priority Date/Time Associated Diagnosis Comments US OB GROWTH 08/08/2023 3:08 PM EDT documented in this encounter Results * US OB GROWTH (08/08/2023 3:08 PM EDT) Anatomical Region Laterality Modality Other 08/08/2023 3:08 PM EDT Narrative 08/08/2023 3:08 PM [place] [address] Ultrasound Report Signed Patient: KIRA PURVIS MR#: [id number] : 1990 Acct:[id number] Age/Sex: 32 / F ADM Date: 08/07/23 Loc: US Attending Dr: Thomas Cortes D.O. Ordering Physician: Thomas Cortes D.O. Date of Service: 08/07/23 Procedure(s): US OB growth Accession Number(s): [id number] cc: Thomas Cortes D.O.; Physician,Non-Staff [place] [place] [address] Patient Name: KIRA PURVIS MRN: [facility]:[id number] date: 1990 Sex: F Assigned Patient [facility] Current Patient Location: US Accession/Order Number: [id number] Exam Date: 08/07/2023 16:05 Report Date: 08/08/2023 [...] Signed By: 08/08/23 1511 DD/ 1508 TD/TT: Clinical Social Worker: Procedure Note Radiology, Radiologist, - 08/08/2023 [place] [address] Ultrasound Report Signed Patient: KIRA PURVIS LMR#: [id number] : 1990Acct:[id number] Age/Sex: 32 / FADM Date: 08/07/23 Loc: US Attending Dr: Thomas Cortes D.O. Ordering Physician: Thomas Cortes D.O. Date of Service: 08/07/23 Procedure(s): US OB growth Accession Number(s): [id number] cc: Thomas Cortes D.O.; Physician,Non-Staff Nikky The [place] [address] Patient Name: KIRA PURVIS MRN: [facility]:[id number] date: 1990 Sex: F Assigned Patient Location: [facility] Current Patient Location: US Accession/Order Number: [id number] Exam Date: 08/07/2023 16:05 Report Date: 08/08/2023 [...] M.D. Signed By:08/08/23 1511 DD/ 1508 TD/TT: Clinical Social Worker: us Thomas Sebastian DO [facility] Final Result documented in this encounter Visit Diagnoses Not on filedocumented in this encounter
--- OUTSIDE RECORDS SUMMARY | 2025-05-05 15:00 | XMS_ITS | Encounter Summary ---
Author Organization [facility] Address [address] [place] [address] Care Team Providers Care Service Order Dispatcher Chief Name Role Phone Unavailable Primary Care Provider Unavailabl e Encounter Details Date Type Department Care Team (Late Contact Info) Description 03/07/2025 Abstract [facility] OB [address] [place] [address] Nolan Cortes DO [address], [facility]11 Social History [...] Routine N[facility] OB [address] [place] [address] Nolan Cortes DO [address] [place] [address] documented as of this encounter Visit Diagnoses Not on filedocumented in this encounter
--- OUTSIDE RECORDS SUMMARY | 2025-05-05 15:00 | XMS_ITS | Encounter Summary ---
Author Organization [facility] Address [address] [place] [address] Care Team Providers Care Shoe Associate Name Role Phone Unavailable Primary Care Provider Unavailabl e Encounter Details Date Type Department Care Team (Late Contact Info) Description 05/02/2025 Bamboo flowsheet [facility] OB [address] [facility] [place] [address] Kristan Fish PA [address] [facility] [address] [place], [facility]11 Social History Tobacco Use Types [...] Description 05/17/2025 11:40 AM EDT Routine [facility] OB [address] [facility] [place] [address] Nolan Cortes DO [address] [facility] [address] [place], [facility]11 documented as of this encounter Visit Diagnoses Not on filedocumented in this encounter
--- OUTSIDE RECORDS SUMMARY | 2025-05-05 15:00 | XMS_ITS | Encounter Summary ---
Author Organization [facility] Address [address] [place] [address] Care Team Providers Care Signals Officer Name Role Phone Unavailable Primary Care Provider Unavailabl e Encounter Details Date Type Department Care Team ([facility] Contact Info) Description 07/18/2023 Clinisync Result Encounter [facility] External Department Unsolicited Thomas Cortes, DO [facility] [address] [place], [place] [id number] Social History Tobacco Use Types Packs/Day Years [...] Upcoming Encounters Date Type Department Care Team ([facility] Contact Info) Description 05/17/2025 11:40 AM EDT Routine [facility] BCP OB [address] [place] [phone] Thomas Cortes DO [facility] [place] [address] documented as of this encounter Procedures Procedure Name Priority Date/Time Associated Diagnosis Comments US OB BPP W NON-STRESS 07/18/2023 3:07 PM EDT documented in this encounter Results * US OB BPP W NON-STRESS (07/18/2023 3:07 PM EDT) Anatomical Region Laterality Modality Other 07/18/2023 3:07 PM EDT Narrative 07/18/2023 3:07 [place] [address] Ultrasound Report Signed Patient: KIRA PURVIS MR#: [id number] 06 : 1990 Acct:[id number] Age/Sex: 32 / F ADM Date: 07/17/23 Loc: US Attending Dr: Thomas Cortes D.O. Ordering Physician: Thomas Cortes D.O. Date of Service: 07/17/23 Procedure(s): US OB BPP w non-stress Accession Number(s): [id number] cc: Thomas Cortes D.O.; Physician,Non-Staff [place] [address] Patient Name: KIRA PURVIS MRN: [facility]:[id number] date: 1990 Sex: F Assigned Patient Location: [facility] Current Patient Location: Accession/Order Number: [id number] Exam Date: 07/17/2023 16:00 Report Date: 07/18/2023 [...] M.D. Signed By: 07/18/231509 DD/ 06 TD/TT: Spud Sorter: Procedure Note Radiology, Radiologist, - 08/01/2023 [place] [address] Ultrasound Report Signed Patient: KIRA PURVIS LMR#: [id number] 06 : 1990Acct:[id number] Age/Sex: 32 / FADM Date: 07/17/23 Loc: US Attending Dr: Thomas Cortes D.O. Ordering Physician: Thomas Cortes D.O. Date of Service: 07/17/23 Procedure(s): US OB BPP w non-stress Accession Number(s): [id number] cc: Thomas Cortes D.O.; Physician,Non-Staff Nikky [place] [address] Patient Name: KIRA PURVIS MRN: [id number] date: 1990 Sex: F Assigned Patient Location: [facility] Current Patient Location: Accession/Order Number: [id number] Exam Date: 07/17/2023 16:00 Report Date: 07/18/2023 [...] Dillon M.D. Signed By:07/18/231509 DD/ 06 TD/TT: Spud Sorter: us Thomas Cortes DO [facility] Final Result documented in this encounter Visit Diagnoses Not on filedocumented in this encounter
--- OUTSIDE RECORDS SUMMARY | 2025-05-05 15:00 | XMS_ITS | Encounter Summary ---
Demographics Address [address] [place] [address] Mobile Phone Home Phone Email Address Email Address Preferred Language Khmer Marital Status Oriental Orthodox Affiliation Unknown Race White Ethnic Group Not or Lati no Author Organization [facility] [employer] tem Address [id number] [address] [place] [address] Support Name Relationship Address Phone Dariusz Purvis Emergency Contact [address] [place] [address] Sravani Villasenor Personal Relationship [address] [place] [address] Laura Cope Personal Relationship Unknown [phone] Care Team Providers Care Can Carrier Name Role Phone Eli Azul MD Primary Care Provider + Encounter Details Date Type Department Care Team (Late st Contact Info) Description 04/29/2025 Telephone Maternal- Medicine at [facility] [address] [place] [phone] Rufina Hurd CMA Social History Tobacco Use [...] Hurd CMA - 04/29/2025 9:31 AM EDT OPERATIONS PROGRAM MANAGER CALLED THE PATIENT. NO ANSWER. LEFT VM [...] 10:00 AM EDT Telemedicine Maternal- Medicine at [facility] [address] [place] [address] Kenya Acosta, PASalomeC [address] [address] documented as of this encounter Visit Diagnoses Not on filedocumented in this encounter Care Teams Can Carrier Relationship Specialty Start Date End Date Eli Azul MD PCP - General Pediatrics 06/23/18 documented as of this encounter
--- OUTSIDE RECORDS SUMMARY | 2025-05-05 15:00 | XMS_ITS | Encounter Summary ---
Author Organization [facility] Address [address] [place] [address] Care Team Providers Care Door To Door Salesman Name Role Phone Unavailable Primary Care Provider Unavailabl e Encounter Details Date Type Department Care Team (Late Contact Info) Description 07/04/2023 Abstract [facility] OB [address] [facility] [place] [address] Nolan Cortes, DO [address] [place], [facility]11 Social History Tobacco Use Types Packs/Day [...] Description 05/17/2025 11:40 AM EDT Routine [facility] [address] [facility] [place] [address] Nolan Cortes, DO [address] [place], [place] [address] documented as of this encounter Visit Diagnoses Not on filedocumented in this encounter
--- OUTSIDE RECORDS SUMMARY | 2025-05-05 15:00 | XMS_ITS | Encounter Summary ---
Author Organization [facility] Address [address] [place] [address] Care Team Providers Care Inside Parts Sales Name Role Phone Unavailable Primary Care Provider Unavailabl e Encounter Details Date Type Department Care Team (Late Contact Info) Description 12/01/2024 Abstract [facility] B[facility] OB [address] [place] [address] Nolan Cortes DO [address] [place], [facility]11 Social History Tobacco Use Types Packs/Day [...]
--- OUTSIDE RECORDS SUMMARY | 2025-05-05 15:00 | XMS_ITS | Encounter Summary ---
Author Organization [facility] Address [address] [facility] [address] [place] [address] Care Team Providers Care Meter Tester Polyphase Name Role Phone Unavailable Primary Care Provider Unavailabl e Encounter Details Date Type Department Care Team (Late Contact Info) Description 03/26/2024 Orders Only [facility] [address] [facility] [place] [address] Bertha Quevedo LPN [address] [place] [address] Social History Tobacco Use Types Packs/Day Years [...] AM EDT Routine [facility] OB [address] [place] [address] Nolan Cortes DO [address] [facility] [address] [place] [address] documented as of this encounter Procedures [...]
--- OUTSIDE RECORDS SUMMARY | 2025-05-05 15:00 | XMS_ITS | Encounter Summary ---
Author Organization [facility] Address [address] [place] [address] Care Team Providers Care Brake Operator Heavy Duty Name Role Phone Unavailable Primary Care Provider Unavailabl e Encounter Details Date Type Department Care Team (Late Contact Info) Description 04/25/2023 Abstract [facility] OB [address] [place] [address] Nolan Cortes, [facility] [place], [facility]11 Social [...] Routine [facility] BCP OB [address] [place] [phone] Nolan Cortes, DO [address] [place], [facility]11 documented as of this encounter Visit Diagnoses Not on filedocumented in this encounter
--- OUTSIDE RECORDS SUMMARY | 2025-05-05 15:00 | XMS_ITS | Encounter Summary ---
Author Organization [facility] Address [address] [place] [address] Care Team Providers Care Academic Success Coordinator Name Role Phone Unavailable Primary Care Provider Unavailabl e Encounter Details Date Type Department Care Team (Late st Contact Info) Description 11/26/2024 Clinisync Result Encounter [facility] External Department Unsolicited Thomas Cortes, DO [address] [place] [address] Social History Tobacco Use Types Packs/Day [...] [facility] OB [address] [place] [phone] Thomas Cortes, DO [address] [place] [address] documented as of this encounter Procedures Procedure Name Priority Date/Time Associated Diagnosis Comments US OB TRANSVAGINAL 11/26/2024 9: 35 AM EST documented in this encounter Results * US OB TRANSVAGINAL (11/26/2024 9:35 AM EST) Anatomical Region Laterality Modality Other 11/26/2024 9:35 AM EST Narrative 11/26/2024 9:37 AM EST [address] [address] Ultrasound Report Signed Patient: KIRA PURVIS MR#: [id number] : 1990 Acct:[id number] Age/Sex: 34 / F ADM Date: 11/26/24 Loc: US Attending Dr: Thomas Cortes D.O. Ordering Physician: Thomas Cortes D.O. Date of Service: 11/26/24 Procedure(s): US OB transvaginal Accession Number(s): [id number] cc: Thomas Cortes D.O.; Physician,Non-Staff [place]ky [address] [address] Patient Name: KIRA PURVIS MRN: [id number] date: 1990 Sex: F Assigned Patient Location: US Current Patient Location: US Accession/Order Number: [id number] Exam Date: 11/26/2024 08:36 Report Date: 11/26/2024 [...] Dillon M.D. Signed By: 11/26/2437 DD/ TD/TT: Parliamentary Counsel: Procedure Note Radiology, Radiologist, - 11/26/2024 [place] [address] Ultrasound Report Signed Patient: KIRA PURVIS LMR#: [id number] : 1990Acct:[id number] Age/Sex: 34 / FADM Date: 11/26/24 Loc: US Attending Dr: Thomas Cortes D.O. Ordering Physician: Thomas Cortes D.O. Date of Service: 11/26/24 Procedure(s): US OB transvaginal Accession Number(s): [id number] cc: Thomas Cortes D.O.; Physician,Non-Staff Nikky The [place] [id number] Patient Name: KIRA PURVIS MRN: [id number] date: 1990 Sex: F Assigned Patient Location: US Current Patient Location: US Accession/Order Number: [id number] Exam Date: 11/26/2024 08:36 Report Date: 11/26/2024 [...] M.D. Signed By:11/26/24 0937 DD/ 0935 TD/TT: Parliamentary Counsel: us [facility] DO [facility] Final Result documented in this encounter Visit Diagnoses Not on filedocumented in this encounter
--- OUTSIDE RECORDS SUMMARY | 2025-05-05 15:00 | XMS_ITS | Encounter Summary ---
Author Organization [facility] Address [address] [place] [address] Care Team Providers Care Returned Item Clerk Name Role Phone Unavailable Primary Care Provider Unavailabl e Encounter Details Date Type Department Care Team (Late Contact Info) Description 08/21/2023 Abstract [facility] OB [address] [place] [address] Nolan Cortes, [facility] [place], [facility]11 Social History Tobacco Use Types [...] Routine [facility] BCP OB [address] [place] [address] Nolan Cortes, DO [address] [place], [facility]11 documented as of this encounter Visit Diagnoses Not on filedocumented in this encounter
--- OUTSIDE RECORDS SUMMARY | 2025-05-05 15:00 | XMS_ITS | Encounter Summary ---
Author Organization [facility] Address [address] [place] [address] Care Team Providers Care Web Content Editor Name Role Phone Unavailable Primary Care Provider Unavailabl e Encounter Details Date Type Department Care Team (Late Contact Info) Description 04/25/2025 Clinisync Result Encounter [facility] External Department Unsolicited Thomas Cortes, DO [address] [place], [place] [phone] Social History Tobacco Use Types Packs/Day Years [...] [facility] B[facility] OB [address] [place] [address] Thomas Cortes DO [address] [place], [place] [phone] documented as of this encounter Procedures Procedure Name Priority Date/Time Associated Diagnosis Comments US OB BPP W NON-STRESS 04/25/2025 9:36 PM EDT documented in this encounter Results * US OB BPP W NON-STRESS (04/25/2025 9:36 PM EDT) Anatomical Region Laterality Modality Other 04/25/2025 9:36 PM EDT Narrative 04/25/2025 9:38 PM EDT [address] [address] Ultrasound Report Signed Patient: KIRA PURVIS MR#: [id number] : 1990 Acct:[id number] Age/Sex: 34 / F ADM Date: 04/25/25 Loc: US Attending Dr: Thomas Cortes D.O. Ordering Physician: Thomas Cortes D.O. Date of Service: 04/25/25 Procedure(s): US OB BPP w non-stress Accession Number(s): [id number] cc: Thomas Cortes D.O.; Physician,Non-Staff Nikky [place] [id number] Patient Name: KIRA PURVIS MRN: [id number] date: 1990 Sex: F Assigned Patient Location: [facility] Current Patient Location: Accession/Order Number: [id number] Exam Date: 04/25/2025 21:35 Report Date: 04/25/2025 [...] Olvera M.D. 04/25/2025 9:36 PM Dictation Location: [place] [address] Electronically authenticated by: [id number] Y Date: 04/25/2025 21:36 Dictated By: Harlan Olvera D.O. Signed By: 04/25/252137 DD/ 35 TD/TT: Boiling House Oiler: Procedure Note Radiology, Radiologist, MD - 04/25/2025 The [place] [id number] Ultrasound Report Signed Patient: KIRA PURVIS LMR#: [id number] : 1990Acct:[id number] Age/Sex: 34 / FADM Date: 04/25/25 Loc: US Attending Dr: Thomas Cortes D.O. Ordering Physician: Thomas Cortes D.O. Date of Service: 04/25/25 Procedure(s): US OB BPP w non-stress Accession Number(s): [id number] cc: Thomas Cortes D.O.; Physician,Non-Staff Nikky The [place] [id number] Patient Name: KIRA PURVIS MRN: [facility]:[id number] date: 1990 Sex: F Assigned Patient Location: [facility] Current Patient Location: Accession/Order Number: [id number] Exam Date: 04/25/2025 21:35 Report Date: 04/25/2025 [...] Olvera M.D. 04/25/2025 9:36 PM Dictation Location[facility] Electronically authenticated by: [id number] Y Date: 1:36 Dictated By: Harlan Olvera D.O. Signed By:04/25/252137 DD/ 35 TD/TT: Boiling House Oiler: us Thomas Cortes DO [facility] Final Result documented in this encounter Visit Diagnoses Not on filedocumented in this encounter
--- OUTSIDE RECORDS SUMMARY | 2025-05-05 15:00 | XMS_ITS | Encounter Summary ---
Author Organization [facility] Address [address] [place] [address] Care Team Providers Care Mortgage Underwriter Name Role Phone Unavailable Primary Care Provider Unavailabl e Encounter Details Date Type Department Care Team (Late Contact Info) Description 08/21/2023 Abstract [facility] OB [address] [place] [address] Nolan Cortes, [facility] [place], [facility]11 Social History Tobacco Use Types Packs/Day Years [...] Routine [facility] BCP OB [address] [place] [address] Nolan Cortes, DO [address] [place], [facility]11 documented as of this encounter Visit Diagnoses Not on filedocumented in this encounter
--- OUTSIDE RECORDS SUMMARY | 2025-05-05 15:00 | XMS_ITS | Encounter Summary ---
Author Organization [facility] Address [address] [place] [address] Care Team Providers Care Oxyacetylene Welder Name Role Phone Unavailable Primary Care Provider Unavailabl e Encounter Details Date Type Department Care Team (Late Contact Info) Description 01/24/2025 Abstract [facility] BCP OB [address] [place] [address] Nolan Cortes DO [address] [place], [facility]11 Social History [...] Routine [facility] BCP OB [address] [place] [address] Nolan Cortes DO [address] [place] [address] documented as of this encounter Visit Diagnoses Not on filedocumented in this encounter
--- OUTSIDE RECORDS SUMMARY | 2025-05-05 15:00 | XMS_ITS | Encounter Summary ---
Author Organization [facility] Address [address] [place] [address] Care Team Providers Care Felt Hat Pouncing Operator Hand Name Role Phone Unavailable Primary Care Provider Unavailabl e Encounter Details Date Type Department Care Team (Late st Contact Info) Description 04/21/2023 Abstract [facility] OB [address] [facility] [place] [address] Nolan Cortes, DO [address] [place], [facility]11 Social History Tobacco Use Types Packs/Day Years [...] Description 05/17/2025 11:40 AM EDT Routine [facility] OB [address] [facility] [place] [address] Nolan Cortes, DO [address] [place], [place] [phone] documented as of this encounter Visit Diagnoses Not on filedocumented in this encounter
--- OUTSIDE RECORDS SUMMARY | 2025-05-05 15:00 | XMS_ITS | Clinical Summary ---
Author Organization [facility] Healthcare Address [address] [place] [address] Care Team Providers Care Branner Machine Tender Name Role Phone Unavailable Primary Care Provider Unavailabl e Allergies No known active allergies Medications Alcohol Swabs (Alcohol Prep Pad) 70 % padsIndications:G estational diabetes mellitus (GDM), antepartum, gestational diabetes method of control unspecified ([facility]),Elevate d glucose tolerance test Apply 1 Pad [...] antepartum, gestational diabetes method of control unspecified ([facility]),Elevate d glucose tolerance test USE TO CHECK [...] Benign essential hypertensio n in obstetric context ([facility]) 04/18/2023 Exposure to cat feces 04/18/2023 Gestational diabetes ([facility]) 04/18/2023 Nausea 04/18/2023 History of delivery 02/24/2023 Estimated Date of Delivery Comme nts Yes 06/24/2025 Based on last me nstrual period of 09/17/2024 Encounters Date Type Department Care Team Description 05/02/2025 10:50 AM EDT Routine [facility] [address] [place] [address] Kristan Fish PA 32 weeks gestation of ([facility]); Third trimester ([facility]) 05/02/2025 Clinisync Result Encounter [facility] External Department Unsolicited Thomas Cortes, DO 05/02/2025 Bamboo flowsheet [facility] [address] [place] [address] Kristan Fish PA 04/25/2025 Clinisync Result Encounter NOM[facility] External Department Unsolicited Thomas Cortes, DO 04/18/2025 1:00 PM EDT Routine [facility] [address] [place] [address] Thomas Cortes, DO 30 weeks gestation of ([facility]); Third trimester ([facility]) 04/18/2025 Clinisync Result Encounter NOM[facility] External Department Unsolicited Thomas Cortes, DO 04/18/2025 Bamboo flowsheet [facility] [address] [place] [address] Thomas Cortes, DO 04/11/2025 Clinisync Result Encounter NOM[facility] External Department Unsolicited Thomas Cortes, DO 04/11/2025 Travel 04/06/2025 Abstract [facility] [address] [place] [address] Thomas Cortes, DO 04/05/2025 1:50 PM EDT Routine [facility] [address] [place] [address] Thomas Cortes, DO Third trimester ([facility]); 28 weeks gestation of ([facility]); Gestational diabetes mellitus (GDM), antepartum, gestational diabetes method of control unspecified ([facility]); H/O: hypertension 04/05/2025 Bamboo flowsheet [facility] [address] [facility] [place] [address] Thomas Cortes, 03/14/2025 1:50 PM EDT Routine [facility] [address] [place] [address] Thomas Cortes, Second trimester ([facility]); 25 weeks gestation of ([facility]) 03/14/2025 Bamboo flowsheet [facility] [address] [place] [address] [place] [address] Thomas Cortes, 03/08/20[address] [facility] [address] [place] [address] Suze Hendrix MA 03/07/2025 Abstract [facility] [address] [place] [address] Thomas Cortes, 03/07/2025 Clinisync Result Encounter NOMS External Department Unsolicited Thomas Cortes, 02/21/2025 1:20 PM EDT Routine [facility] [address] [facility] [place] [address] Thomas Cortes, Second trimester ([facility]); 22 weeks gestation of ([facility]) 02/21/2025 Bamboo flowsheet [facility] [address] [facility] [place] [address] Thomas Cortes, 02/18/2025 Refill [facility] [address] [facility] [place] [address] Thomas Cortes, Gestational diabetes mellitus (GDM), antepartum, gestational diabetes method of control unspecified ([facility]); Elevated glucose tolerance test 02/17/20[address] Tele[address] [facility] [address] [place] [address] Suze Hendrix MA 02/14/2025 1:00 PM EDT Ancillary Procedure [facility] [address] [place] [address] Screening, , for anatomic survey ([facility]) 02/14/2025 Travel 02/07/2025 Clinisync Result Encounter [facility]OM[facility] External Department Unsolicited Thomas Cortes DO 02/07/2025 Travel from Last 3 Months Family History [...] Description 05/17/2025 11:40 AM EDT Routine [facility] [address] [place] [address] Thomas Cortes, [address] Roc[address] [place], [place] [phone] Procedures Procedure Name Priority Date/Time Associated Diagnosis Comments US OB BPP W NON-STRESS 05/02/2025 4:30 PM EDT POCT URINALYSIS DIPSTICK Routine 05/02/2025 11:00 AM EDT 32 weeks gestation of ([facility]) Third trimester ([facility]) US OB BPP W NON-STRESS 04/25/2025 9:36 PM EDT US OB BPP W NON-STRESS 04/18/2025 4:07 PM EDT POCT URINALYSIS DIPSTICK Routine 04/18/2025 1:14 PM EDT 30 weeks gestation of ([facility]) Third trimester ([facility]) US OB BPP W NON-STRESS 04/11/2025 4:05 PM EDT POCT URINALYSIS DIPSTICK Routine 04/05/2025 2:19 PM EDT Third trimester ([facility]) US OB INCOMPLETE ANATOMY 03/07/2025 12:42 PM EDT POCT URINALYSIS DIPSTICK Routine 02/21/2025 2:08 PM EDT Second trimester ([facility]) US OB 14+ WEEKS ANATOMY SCAN Routine 02/14/2025 2:03 PM EDT Screening, , for anatomic survey ([facility]) AFP, SERUM, OPEN SPINA BIFIDA Routine 02/07/2025 11:20 AM EDT from Last 3 Months Results * US OB BPP W NON-STRESS (05/02/2025 4:30 PM EDT) Only the most recent of4 resultswithin the time period is included. Anatomical Region Laterality Modality Other 05/02/2025 4:30 PM EDT Narrative 05/02/2025 4:32 [place] [address] Ultrasound Report Signed Patient: CHARLENE PURVIS MR#: [id number] : 1990 Acct:[id number] Age/Sex: 34 / F ADM Date: 05/02/25 Loc: US Attending Dr: Thomas Cortes D.O. Ordering Physician: Thomas Cortes D.O. Date of Service: 05/02/25 Procedure(s): US OB BPP w non-stress Accession Number(s): [id number] cc: Thomas Cortes D.O.; Physician,Non-Staff Nikky [place] [id number] Patient Name: CHARLENE PURVIS MRN: [id number] date: 1990 Sex: F Assigned Patient Location: [facility] Current Patient Location: Accession/Order Number: [id number] Exam Date: 05/02/2025 16:28 Report Date: 05/02/2025 16:30 At the request of: THOMAS CORTES DO Procedure: US OB BPP w non-stress US OB BPP w non-stress 05/02/2025 3:22 PM SIGNS AND SYMPTOMS: Gestational diabetes mellitus PROTOCOL: Transabdominal sonographic images of the gravid uterus COMPARISON: 04/25/2025 FINDINGS: Estimated gestational age is 32 weeks and 3 days heart rate is 134 bpm Amniotic fluid volume is 13.12 cm with the deepest vertical pocket measuring 5.14 cm. Biophysical profile: movements: 2/2 tone: 2/2 breathing movements: 2/2. Amniotic fluid volume: 2/2 US/US OB BPP w non-stress IMPRESSION: Biophysical profile score: 8/8 Impression dictated by: Marquis Maxwell M.D. 05/02/2025 4:30 PM Dictation Location: [place] [address] Electronically authenticated by: [id number] Y Date: 05/02/2025 16:30 Dictated By: Marquis Maxwell M.D. Signed By: 05/02/25 1632 DD/ 163 TD/TT: Dispatch Clerk: Procedure Note Radiology, Radiologist, MD - 05/02/2025 The [place] [id number] Ultrasound Report Signed Patient: CHARLENE PURVIS LMR#: [id number] : 1990Acct:[id number] Age/Sex: 34 / FADM Date: 05/02/25 Loc: US Attending Dr: Thomas Cortes D.O. Ordering Physician: Thomas Cortes D.O. Date of Service: 05/02/25 Procedure(s): US OB BPP w non-stress Accession Number(s): [id number] cc: Thomas Cortes D.O.; Physician,Non-Staff Nikky The [place] [id number] Patient Name: CHARLENE PUVRIS MRN: [facility]:[id number] date: 1990 Sex: F Assigned Patient Location: [facility] Current Patient Location: Accession/Order Number: [id number] Exam Date: 05/02/2025 16:28 Report Date: 05/02/2025 16:30 At the request of: THOMAS CORTES DO Procedure: US OB BPP w non-stress US OB BPP w non-stress 05/02/2025 3:22 PM SIGNS AND SYMPTOMS: Gestational diabetes mellitus PROTOCOL: Transabdominal sonographic images of the gravid uterus COMPARISON: 04/25/2025 FINDINGS: Estimated gestational age is 32 weeks and 3 days heart rate is 134 bpm Amniotic fluid volume is 13.12 cm with the deepest vertical pocketmeasuring 5.14 cm. Biophysical profile: movements: 2/2 tone: 2/2 breathing movements: 2/2. Amniotic fluid volume: 2/2 US/US OB BPP w non-stress IMPRESSION: Biophysical profile score: 8/8 Impression dictated by: Marquis Maxwell M.D. 05/02/2025 4:30 PM Dictation Location: [place] [address] Electronically authenticated by: [id number] Y Date: 6:30 Dictated By: Marquis Maxwell M.D. Signed By:05/02/25 1632 DD/ 1630 TD/TT: Dispatch Clerk: us Thomas Cortes DO [facility] [...] ENTER/EDIT ORDERABLES Final Result * US OB INCOMPLETE ANATOMY (03/07/2025 12:42 PM EDT) Anatomical Region Laterality Modality Other 03/07/2025 12:4 2 PM EDT Narrative 03/07/2025 12:44 PM EDT [address] [address] Ultrasound Report Signed Patient: CHARLENE PURVIS MR#: [id number] : 1990 Acct:[id number] Age/Sex: 34 / F ADM Date: 03/05/25 Loc: US Attending Dr: Thomas Cortes D.O. Ordering Physician: Thomas Cortes D.O. Date of Service: 03/05/25 Procedure(s): US OB incomplete anatomy Accession Number(s): [id number] cc: Thomas Cortes D.O.; Physician,Non-Staff Nikky The [address] [address] Patient Name: CHARLENE PURVIS MRN: [facility]:[id number] date: 1990 Sex: F Assigned Patient Location: US Current Patient Location: Accession/Order Number: [id number] Exam Date: 03/07/2025 12:39 Report Date: 03/07/2025 [...] Jr., D.O. 03/07/2025 12:42 PM Dictation Location: [place] [address] Electronically authenticated by: [id number] Y Date: 03/07/2025 12:42 Dictated By: Jacinto Rivas M.D. Signed By: 03/07/25 1244 DD/ 1242 TD/TT: Dispatch Clerk: Procedure Note Radiology, Radiologist, MD - 03/07/[address] [address] Ultrasound Report Signed Patient: CHARLENE PURVIS LMR#: [id number] : 1990Acct:[id number] Age/Sex: 34 / FADM Date: 03/05/25 Loc: US Attending Dr: Thomas Cortes D.O. Ordering Physician: Thomas Cortes D.O. Date of Service: 03/05/25 Procedure(s): US OB incomplete anatomy Accession Number(s): [id number] cc: Thomas Cortes D.O.; Physician,Non-Staff Nikky [address] [address] Patient Name: CHARLENE PURVIS MRN: [facility]:[id number] date: 1990 Sex: F Assigned Patient Location: US Current Patient Location: Accession/Order Number: [id number] Exam Date: 03/07/2025 12:39 Report Date: 03/07/2025 [...] Jr., D.O. 03/07/2025 12:42 PM Dictation Location: [place] [address] Electronically authenticated by: [id number] Y Date: 2:42 Dictated By: Jacinto Rivas M.D. Signed By:03/07/25 1244 DD/ 1242 TD/TT: Dispatch Clerk: us Thomas Cortes DO [facility] [...] II, MD, PHD at 15-Feb-2025 11:25:23 PM [facility] Procedure Note Mony Arenas MD - [...] of the outflow tracts and kidneys. A xasli-fyxacqmpsd-qu ultrasound is recommended. Interpreted by: Electronically signed by MONY ARENAS II, MD, PHD [id number] 11:25:23 PM [facility] us Thomas Sebastian DO IMG OB US PROCEDURES Final Resul t * AFP, SERUM, OPEN SPINA BIFIDA (02/07/2025 11:20 AM EDT) [facility] RESULTS Report . [facility] TEST RESULTS: *Screen Negative* . [facility] GEST. AGE ON COLLECTION DATE 20.4 . weeks [facility] GESTAT. AGE BASED ON LMP . [facility] Comment: Recalculations are not recommended when gestational dating by LMP and ultrasound are within 10 days. [age] [facility] RACE . [facility] WEIGHT 289 . lbs [facility] INSULIN DEP DIABETES No . [facility] MULTIPLE GESTATION No . H AFP VALUE 34.5 . ng/mL [facility] AFP MOM 0.84 . [facility] [place] [place] [address] . [facility] INTERPRETATION Comment . [facility] Comment: Interpretation: Screen Negative This result [...] Customer Services to discuss available options. The [employer] recommends amniocentesis be offered to women age 35 and older. COMMENT: Comment . [facility] Comment: Tiffany Shah, Ph.D., [facility] Director References: Available Upon Request. Multiples Of Median Cutoffs For AFP Elevations Steiner 2.5 Black 2.8 IDD 2.0 Twins 4.5 Abbreviation Definitions IDD - Insulin Dep Diabetes OSBR - Open Spina Bifida Risk For further inquiries contact [employer] [facility] at [phone]. This test was developed and its performance characteristics determined by [employer]. It has not been cleared or approved by the Food and Drug Administration. Performed at: [facility] [address] [place], [place] [id number] Nutrition Services Associate: Rogelio Rice [facility], Phone: [phone] 02/07/2025 11:2 0 AM EDT 02/07/2025 11:34 AM EDT Narrative [facility] - 02/09/2025 12:07 AM EDT N N LMP [id number] 3 18 N 1 Y 289 N N N N N White/ Thomas Cortes DO LAB BLOOD ORDERABLES Final Resul t [facility] from Last 3 Months Insurance
--- OUTSIDE RECORDS SUMMARY | 2025-05-05 15:00 | XMS_ITS | Encounter Summary ---
Author Organization [facility] Address [address] [place] [address] Care Team Providers Care Food Services Director Name Role Phone Unavailable Primary Care Provider Unavailabl e Encounter Details Date Type Department Care Team (Late Contact Info) Description 02/01/2025 Abstract [facility] [address] [place] [address] Nolan Cortes DO [address] [place], [facility]11 Social History Tobacco Use Types Packs/Day [...]
--- OUTSIDE RECORDS SUMMARY | 2025-05-05 15:00 | XMS_ITS | Encounter Summary ---
Author Organization [facility] Address [address] [place] [address] Care Team Providers Care Wet Finisher Name Role Phone Unavailable Primary Care Provider Unavailabl e Encounter Details Date Type Department Care Team (Late Contact Info) Description 08/21/2023 Abstract [facility] OB [address] [place] [address] Nolan Cortes, [facility] [address] [place], [facility]11 Social History [...] OB [address] [place] [address] Nolan Cortes, DO [address], [facility]11 documented as of this encounter Visit Diagnoses Not on filedocumented in this encounter
--- OUTSIDE RECORDS SUMMARY | 2025-05-05 15:00 | XMS_ITS | Encounter Summary ---
Author Organization [facility] Address [address] [place] [address] Care Team Providers Care Cylinder Press Operator Apprentice Name Role Phone Unavailable Primary Care Provider Unavailabl e Encounter Details Date Type Department Care Team (Late Contact Info) Description 12/02/2024 Abstract [facility] [address] [place] [address] Nolan Cortes DO [address], [facility]11 Social History Tobacco Use Types Packs/Day [...] Routine [facility] [address] [place] [address] Nolan Cortes DO [address] [place] [address] documented as of this encounter Visit Diagnoses Not on filedocumented in this encounter
--- OUTSIDE RECORDS SUMMARY | 2025-05-05 15:00 | XMS_ITS | Encounter Summary ---
Author Organization [facility] Address [address] [place] [place] [address] Care Team Providers Care Doorshaker Name Role Phone Unavailable Primary Care Provider Unavailabl e Encounter Details Date Type Department Care Team (Late Contact Info) Description 01/27/2025 Abstract [facility] OB [address] [place] [address] Nolan Cortes DO [address] [place], [facility]11 Social History Tobacco Use Types Packs/Day [...] Routine [facility] [address] [place] [address] Nolan oCrtes DO [address] [place] [address] documented as of this encounter Visit Diagnoses Not on filedocumented in this encounter
--- OUTSIDE RECORDS SUMMARY | 2025-05-05 15:00 | XMS_ITS | Encounter Summary ---
Author Organization [facility] Address [address] [place] [place] [address] Care Team Providers Care Taker Down Name Role Phone Unavailable Primary Care Provider Unavailabl e Encounter Details Date Type Department Care Team (Late st Contact Info) Description 04/28/2024 Clinisync Result Encounter [facility] External Department Unsolicited Thomas Cortes, [address] [place] [address] Social History Tobacco Use Types Packs/Day Years [...] AM EDT Routine [facility] [address] [facility] [place] [address] Thomas Cortes[address] [place] [address] documented as of this encounter Procedures Procedure Name Priority Date/Time Associated Diagnosis Comments US PELVIS W/ TRANSVAGINAL 04/28/2024 1:16 PM EDT documented in this encounter Results * US PELVIS W/ TRANSVAGINAL (04/28/2024 1:16 PM EDT) Anatomical Region Laterality Modality Other 04/28/2024 1:16 PM EDT Narrative 04/28/2024 1:19 PM EDT [address] [address] Ultrasound Report Signed Patient: KIRA PURVIS MR#: [id number] : 1990 Acct:[id number] Age/Sex: 33 / F ADM Date: 04/27/24 Loc: US Attending Dr: Thomas Cortes D.O. Ordering Physician: Thomas Cortes D.O. Date of Service: 04/27/24 Procedure(s): US pelvis w/ transvaginal Accession Number(s): [id number] cc: Thomas Cortes D.O.; Physician,Non-Staff Nikky [address] [address] Patient Name: KIRA PURVIS MRN: [facility]:[id number] date: 1990 Sex: F Assigned Patient Location: US Current Patient Location: Accession/Order Number: [id number] Exam Date: 04/27/2024 14:00 Report Date: 04/28/2024 [...] Signed By: 04/28/24 1319 DD/ 1316 TD/TT: Bee Tender: Procedure Note Radiology, Radiologist, - 04/28/2024 [place] [address] Ultrasound Report Signed Patient: KIRA PURVIS LMR#: [id number] : 1990Acct:[id number] Age/Sex: 33 / FADM Date: 04/27/24 Loc: US Attending Dr: Thomas Cortes D.O. Ordering Physician: Thomas Cortes D.O. Date of Service: 04/27/24 Procedure(s): US pelvis w/ transvaginal Accession Number(s): [id number] cc: Thomas Cortes D.O.; Physician,Non-Staff Nikky The [place] [id number] Patient Name: KIRA PURVIS MRN: [facility]:[id number] date: 1990 Sex: F Assigned Patient Location: US Current Patient Location: Accession/Order Number: [id number] Exam Date: 04/27/2024 14:00 Report Date: 04/28/2024 [...] M.D. Signed By:04/28/24 1319 DD/ 1316 TD/TT: Bee Tender: us Thomas Sebastian DO [facility] Final Result documented in this encounter Visit Diagnoses Not on filedocumented in this encounter
--- OUTSIDE RECORDS SUMMARY | 2025-05-05 15:00 | XMS_ITS | Encounter Summary ---
Author Organization [facility] Address [address] [place] [address] Care Team Providers Care Exerciser Horse Name Role Phone Unavailable Primary Care Provider Unavailabl e Encounter Details Date Type Department Care Team (Late Contact Info) Description 12/08/2024 Abstract [facility] OB [address] [place] [address] Nolan Cortes DO [address], [facility]11 Social History Tobacco Use Types Packs/Day [...]
--- OUTSIDE RECORDS SUMMARY | 2025-05-05 15:00 | XMS_ITS | Encounter Summary ---
Author Organization [facility] Address [address] [place] [address] Care Team Providers Care Studio Receptionist Name Role Phone Unavailable Primary Care Provider Unavailabl e Encounter Details Date Type Department Care Team (Late Contact Info) Description 04/06/2025 Abstract [facility] OB [address] [place] [address] Nolan Cortes DO [address], [facility]11 Social History Tobacco Use Types Packs/Day [...] [address] Nolan Cortes DO [address] [place] [address] documented as of this encounter Visit Diagnoses Not on filedocumented in this encounter
--- OUTSIDE RECORDS SUMMARY | 2025-05-05 15:01 | XMS_ITS | Encounter Summary ---
Author Organization [facility] Address [address] [place] [address] Care Team Providers Care Missileman Name Role Phone Unavailable Primary Care Provider Unavailabl e Encounter Details Date Type Department Care Team (Late Contact Info) Description 05/20/2023 Abstract [facility] OB [address] [place] [address] Nolan Cortes, [facility] [address] [place], [facility]11 [...] OB [address] [place] [address] Nolan Cortes, DO [address], [facility]11 documented as of this encounter Visit Diagnoses Not on filedocumented in this encounter
--- OUTSIDE RECORDS SUMMARY | 2025-05-05 15:01 | XMS_ITS | Encounter Summary ---
Author Organization [facility] Address [address] [place] [address] Care Team Providers Care Space And Missile Operations Spacelift Name Role Phone Unavailable Primary Care Provider Unavailabl e Encounter Details Date Type Department Care Team (Late Contact Info) Description 04/22/2023 Abstract [facility] OB [address] [place] [address] Nolan Cortes, [facility] Olivia [place], [facility]11 Social History [...] Routine [facility] OB [address] [place] [address] Nolan Cortes, DO [address], [facility]11 documented as of this encounter Visit Diagnoses Not on filedocumented in this encounter
--- OUTSIDE RECORDS SUMMARY | 2025-05-05 15:01 | XMS_ITS | Encounter Summary ---
Demographics Address [address] [place] [address] Mobile Phone Home Phone Email Address Email Address Preferred Language Lithuanian Marital Status Jain Affiliation Unknown Race White Ethnic Group Not or Lati no Author Organization [facility] [employer] tem Address [id number] [address] [place] [address] Support Name Relationship Address Phone Dariusz Purvis Emergency Contact [address] [place] [address] Sravani Villasenor Personal Relationship [address] [place] [address] Laura Cope Personal Relationship Unknown [phone] Care Team Providers Care Employment Advisor Name Role Phone Eli Azul MD Primary Care Provider + Encounter Details Date Type Department Care Team (Late st Contact Info) Description 03/15/2025 Orders Only Maternal- Medicine at [facility] [address] [place] [address] Rufina Hurd CMA Social History Tobacco Use [...] 10:00 AM EDT Telemedicine Maternal- Medicine at [facility] [address] [place] [address] Kenya Acosta, [facility] [address] [address] documented as of this encounter Visit Diagnoses Not on filedocumented in this encounter Care Teams Employment Advisor Relationship Specialty Start Date End Date Eli Azul MD PCP - General Pediatrics 06/23/18 documented as of this encounter
--- OUTSIDE RECORDS SUMMARY | 2025-05-05 15:01 | XMS_ITS | Encounter Summary ---
Author Organization [facility] Address [address] [place] [address] Care Team Providers Care Mail Service Coordinator Name Role Phone Unavailable Primary Care Provider Unavailabl e Encounter Details Date Type Department Care Team (Late st Contact Info) Description 04/14/2023 Abstract [facility] OB [address] [facility] [place] [address] Nolan Cortes, DO [address], [facility]11 Social History Tobacco [...] Description 05/17/2025 11:40 AM EDT Routine [facility] OB [address] [place] [address] Nolan Cortes, DO [address], [place] [id number] documented as of this encounter Visit Diagnoses Not on filedocumented in this encounter
--- OUTSIDE RECORDS SUMMARY | 2025-05-05 15:01 | XMS_ITS | Encounter Summary ---
Author Organization [facility] Address [address] [place] [address] Care Team Providers Care Cable Mechanic Name Role Phone Unavailable Primary Care Provider Unavailabl e Encounter Details Date Type Department Care Team (Late Contact Info) Description 04/24/2023 Abstract [facility] OB [address] [place] [address] Nolan Cortes, [facility] Olivia Jeffries, [facility] [...] [facility] OB [address] [place] [address] Nolan Cortes, DO [address], [facility] [address] documented as of this encounter Visit Diagnoses Not on filedocumented in this encounter
--- OUTSIDE RECORDS SUMMARY | 2025-05-05 15:01 | XMS_ITS | Encounter Summary ---
Author Organization [facility] Address [address] [place] [address] Care Team Providers Care Laundry Folder Name Role Phone Unavailable Primary Care Provider Unavailabl e Encounter Details Date Type Department Care Team (Late Contact Info) Description 05/02/2025 Clinisync Result Encounter [facility] External Department Unsolicited Thomas Cortes, DO [address], [place] [id number] Social History Tobacco Use Types Packs/Day Years [...] [facility] OB [address] [place] [address] Thomas Cortes DO [address], [place] [id number] documented as of this encounter Procedures Procedure Name Priority Date/Time Associated Diagnosis Comments US OB BPP W NON-STRESS 05/02/2025 4:30 PM EDT documented in this encounter Results * US OB BPP W NON-STRESS (05/02/2025 4:30 PM EDT) Anatomical Region Laterality Modality Other 05/02/2025 4:30 PM EDT Narrative 05/02/2025 4:32 PM EDT [address] [address] Ultrasound Report Signed Patient: KIRA PURVIS MR#: [id number] : 1990 Acct:[id number] Age/Sex: 34 / F ADM Date: 05/02/25 Loc: US Attending Dr: Thomas Cortes D.O. Ordering Physician: Thomas Cortes D.O. Date of Service: 05/02/25 Procedure(s): US OB BPP w non-stress Accession Number(s): [id number] cc: Thomas Cortes D.O.; Physician,Non-Staff Nikky [address] [address] Patient Name: KIRA PURVIS MRN: [id number] date: 1990 Sex: F Assigned Patient Location: [facility] Current Patient Location: Accession/Order Number: [id number] Exam Date: 05/02/2025 16:28 Report Date: 05/02/2025 [...] Maxwell M.D. 05/02/2025 4:30 PM Dictation Location: [place] [address] Electronically authenticated by: [id number] Y Date: 05/02/2025 16:30 Dictated By: Marquis Maxwell M.D. Signed By: 05/02/25 163 DD/ 163 TD/TT: Master Mechanic: Procedure Note Radiology, Radiologist, - 05/02/2025 [place] [address] Ultrasound Report Signed Patient: KIRA PURVIS LMR#: [id number] : 1990Acct:[id number] Age/Sex: 34 / FADM Date: 05/02/25 Loc: US Attending Dr: Thomas Cortes D.O. Ordering Physician: Thomas Cortes D.O. Date of Service: 05/02/25 Procedure(s): US OB BPP w non-stress Accession Number(s): [id number] cc: Thomas Cortes D.O.; Physician,Non-Staff Nikky The [address] [address] Patient Name: KIRA PURVIS MRN: [facility]:[id number] date: 1990 Sex: F Assigned Patient Location: [facility] Current Patient Location: Accession/Order Number: [id number] Exam Date: 05/02/2025 16:28 Report Date: 05/02/2025 [...] BPP w non-stress IMPRESSION: Biophysical profile score: 06/17 Impression dictated by: Marquis Maxwell M.D. 05/02/2025 4:30 PM Dictation Location: [place] [address] Electronically authenticated by: [id number] Y Date: 6:30 Dictated By: Marquis Maxwell M.D. Signed By:05/02/25 1632 DD/ 29 TD/TT: Master Mechanic: us Thomas Cortes DO [facility] Final Result documented in this encounter Visit Diagnoses Not on filedocumented in this encounter
--- OUTSIDE RECORDS SUMMARY | 2025-05-05 15:01 | XMS_ITS | Encounter Summary ---
Author Organization [facility] Address [address] [place] [address] Care Team Providers Care Family Resource Management Specialist Name Role Phone Unavailable Primary Care Provider Unavailabl e Encounter Details Date Type Department Care Team (Late st Contact Info) Description 04/18/2023 Abstract [facility] OB [address] [place] [address] Nolan Cortes, DO 102 [address], [facility]11 Social History Tobacco Use Types [...] 11:40 AM EDT Routine [facility] OB [address] [facility] [place] [address] Nolan Cortes, DO [address], [place] [address] documented as of this encounter Visit Diagnoses Not on filedocumented in this encounter
--- OUTSIDE RECORDS SUMMARY | 2025-05-05 15:01 | XMS_ITS | Encounter Summary ---
Author Organization [facility] Address [address] [place] [address] Care Team Providers Care Roller Skater Name Role Phone Unavailable Primary Care Provider Unavailabl e Encounter Details Date Type Department Care Team (Late st Contact Info) Description 04/14/2023 Abstract [facility] OB [address] [facility] [place] [address] Nolan Cortes, DO [address], [facility]11 Social History Tobacco [...] Description 05/17/2025 11:40 AM EDT Routine [facility] OB [address] [facility] [place] [address] Nolan Cortes, DO [address], [place] [id number] documented as of this encounter Visit Diagnoses Not on filedocumented in this encounter
--- OUTSIDE RECORDS SUMMARY | 2025-05-05 15:01 | XMS_ITS | Clinical Summary ---
Demographics Address [address] [place] [address] Mobile Phone Home Phone Email Address Email Address Preferred Language Slovenian Marital Status Yazdanism Affiliation Unknown Race White Ethnic Group Not or Lati no Author Organization [employer] tem Address [id number] [address] [place] [address] Support Name Relationship Address Phone Dariusz Purvis Emergency Contact [address] [place] [address] Sravani Villasenor Personal Relationship [address] [place] [address] Laura Cope Personal Relationship Unknown [phone] Care Team Providers Care Ivory Carver Name Role Phone Eli Azul MD Primary [...] Team Description 04/29/2025 Telephone Maternal- Medicine at [facility] [address] [place] [address] Rufina Hurd CMA 04/19/2025 10:30 AM EDT Telemedicine Maternal- Medicine at [facility] [address] [place] [address] Kenya Acosta, UDAY Gestational diabetes mellitus (GDM) in second trimester controlled on oral hypoglycemic drug (Primary Dx) 04/19/2025 Travel 04/19/2025 Telephone Maternal- Medicine at [facility] [address] [place] [address] Rufina Hurd CMA 04/01/2025 Telephone Maternal- Medicine at [facility] [address] [place] [address] Violet Lopez RN 03/23/2025 10:30 AM EDT Telemedicine Maternal- Medicine at [facility] [address] [place] [address] Iman Hall, TESTING TECH-PREMA Gestational diabetes mellitus (GDM) in second trimester controlled on oral hypoglycemic drug 03/23/2025 Travel 03/23/2025 Telephone Maternal- Medicine at [facility] [address] [place] [address] Rufina Hurd CMA 03/16/2025 Telephone Maternal- Medicine at [facility] [address] [place] [address] Violet Lopez, RN 03/15/2025 Orders Only Maternal- Medicine at [facility] [address] [place] [address] Rufina Hurd, TAINA 03/08/2025 1:00 PM EDT Office Visit Maternal- Medicine at [facility] [address] [facility] [place] [address] Kenya Acosta, UDAY Gestational diabetes mellitus (GDM) in second trimester controlled on oral hypoglycemic drug (Primary Dx) 03/08/2025 Travel 03/08/2025 Telephone Maternal- Medicine at [facility] [address] [place] [address] Rufina Hurd, [facility] 03/04/2025 Telephone Maternal- Medicine at [facility] [address] [facility] [place] [address] Shima Renee, URIEL 03/02/2025 Telephone Maternal- Medicine at [facility] [address] [facility] [place] [address] Shima Renee, URIEL 02/24/2025 Telephone Maternal- Medicine at [facility] [address] [place] [address] Jewels Pedersen LD 02/16/2025 9:30 AM EDT Support Visit Maternal- Medicine at [facility] [address] [facility] [place] [address] Violet Lopez, RN Alexandria Iraheta RD Diet controlled gestational diabetes mellitus (GDM) in second trimester (Primary Dx); Encounter for diabetes education 02/16/2025 Travel 02/07/2025 Orders Only Maternal- Medicine at [facility] [address] [facility] [place] [address] Ref Prov, Not In System 02/07/2025 Abstract Maternal- Medicine at [facility] [address] [place] [address] Iman Hall APRN-CNP from Last [...] 10:00 AM EDT Telemedicine Maternal- Medicine at [facility] [address] [place] [address] Kenya Acosta PA-C [address] [address] Health Maintenance Due Date Last Done Comments [...] 110 MANUALLY TRANSCRIBED RESULTS 02/16/2025 Iman Hall TESTING TECH-CHEFS LAB BLOOD ORDERABLES Fi nal Result MANUALLY TRANSCRIBED RESULTS from Last 3 Months Insurance * Guarantor: Charlene Purvis Account Type Relation to Patient Date of Phone Billing Address Personal/Family Self 1990 [facility] [address] [facility] [address] [place] [address] [facility] Care Teams Ivory Carver Relationship Specialty Start Date End Date Eli Azul MD PCP - General Pediatrics 06/23/18
--- OUTSIDE RECORDS SUMMARY | 2025-05-05 15:01 | XMS_ITS | Encounter Summary ---
Author Organization [facility] Address [address] [place] [address] Care Team Providers Care Sweatband Shaper Name Role Phone Unavailable Primary Care Provider Unavailabl e Encounter Details Date Type Department Care Team (Late Contact Info) Description 06/11/2023 Abstract [facility] [address] [place] [address] Kristan Fish PA [address] [place] [address] Dr [place], [facility]11 Social History Tobacco Use Types Packs/Day [...] Description 05/17/2025 11:40 AM EDT Routine NOM[facility] [address] [place] [address] Nolan Cortes DO [address] [place] [address] Dr Roc[address] [place], [facility]11 documented as of this encounter Visit Diagnoses Not on filedocumented in this encounter
[2025-05-05 15:04] VITALS: BP 104/71; PULSE 104
== END 2025-05-05 15:25 | disposition home or self-care (01) ==
LOC: FBCO 14:57 → FBC 14:59
PROVIDERS: Visit Provider Obstetrics & Gynecology
DX: O24.419 Gestational diabetes mellitus in pregnancy, unspecified control (principal); Z3A.32 32 weeks gestation of pregnancy
CPT/HCPCS: 59025

== ENCOUNTER 2025-05-09 15:00 | Outpatient (OUT) | payer BC, SELFPAY ==
--- OUTSIDE RECORDS SUMMARY | 2025-05-02 10:50 | XMS_ITS | Encounter Summary ---
Author Organization [facility] Address [address] [place] [address] Care Team Providers Care Wind Operations Supervisor Name Role Phone Unavailable Primary Care Provider Unavailabl e Reason for Visit * Reason Comments Routine Visit Encounter Details Date Type Department Care Team ([facility] Contact Info) Description 05/02/2025 10:50 AM EDT Routine [facility] [address] [place] [phone] Kristan Fish PA [address] [place], [facility]11 32 weeks gestation of ([facility]); Third trimester ([facility]) Social History Tobacco Use Types Packs/Day Years [...] Noted Benign essential hypertension in obstetric context ([facility]) 04/18/2023 Exposure to cat feces 04/18/2023 Gestational diabetes ([facility]) 04/18/2023 Nausea 04/18/2023 History of delivery 02/24/2023 Resolved Ambulatory Problems Diagnosis Date Noted No Resolved Ambulatory Problems Past Medical History: Diagnosis Date Chronic hypertension affecting ([facility]) Exposure to cat feces, sequela Former smoker Herpes exposure History of miscarriage Morbid obesity with BMI of 40.0-44.9, adult ([facility]) HISTORY PAST MEDICAL HISTORY SOCIAL HISTORY Past Medical History: Diagnosis Date Chronic hypertension affecting ([facility]) Exposure to cat feces, sequela Former smoker Gestational diabetes ([facility]) Herpes exposure History of miscarriage Morbid obesity with BMI of 40.0-44.9, adult ([facility]) Social History Tobacco Use Smoking status: Former [...] nursing note reviewed. Exam conducted with a cosmetics machine operator present. Vitals: Estimated body mass index is 47.16 kg/m?? as calculated from the following: Height as of 09/09/23: 5' 7 . Weight as of this encounter: 301 lb 1.9 oz. BP: 130/82 Patient's last menstrual period was 09/17/2024. ASSESSMENT & PLAN ICD-10-CM 1. 32 weeks gestation of ([facility]) Z3A.32 POCT urinalysis dipstick manually resulted 2. Third trimester ([facility]) Z34.93 POCT urinalysis dipstick manually resulted Return [...] She is sending her glucose logs to [facility] for review. She has continued with [...] AM EDT Routine [facility] [address] [place] [phone] Nolan Cortes, DO [address] [place] [address] documented as of this encounter Procedures Procedure Name Priority Date/Time Associated Diagnosis Comments POCT URINALYSIS DIPSTICK Routine 05/02/2025 11:00 AM EDT 32 weeks gestation of ([facility]) Third trimester ([facility]) documented in this encounter Results * (ABNORMAL) [...] Urine 05/02/2025 11:0 0 AM EDT Armida Albrecth NP POINT OF CARE TEST ENTER/EDIT ORDERABLES Final Result documented in this encounter Visit Diagnoses Diagnosis 32 weeks gestation of ([facility]) Third trimester ([facility]) state, incidental documented in this encounter
--- OUTSIDE RECORDS SUMMARY | 2025-05-09 15:02 | XMS_ITS | Encounter Summary ---
Author Organization [facility] Address [address] [place] [address] Care Team Providers Care Horse Identifier Name Role Phone Unavailable Primary Care Provider Unavailabl e Encounter Details Date Type Department Care Team (Late Contact Info) Description 08/21/2023 Abstract [facility] OB [address] [place] [address] Nolan Cortes, [facility] Olivia Jeffries, [facility]11 Social History Tobacco Use Types [...] [address] Nolan Cortes, DO [address], [facility]11 documented as of this encounter Visit Diagnoses Not on filedocumented in this encounter
--- OUTSIDE RECORDS SUMMARY | 2025-05-09 15:02 | XMS_ITS | Encounter Summary ---
Author Organization [facility] Address [address] [place] [address] Care Team Providers Care Hardware Trainer Name Role Phone Unavailable Primary Care Provider Unavailabl e Encounter Details Date Type Department Care Team (Late Contact Info) Description 07/04/2023 Abstract [facility] OB [address] [place] [address] Nolan Cortes, DO [address], [facility]11 Social History Tobacco Use Types Packs/Day [...] Description 05/17/2025 11:40 AM EDT Routine [facility] [address] [facility] [place] [address] Nolan Cortes, DO [address], [place] [address] documented as of this encounter Visit Diagnoses Not on filedocumented in this encounter
--- OUTSIDE RECORDS SUMMARY | 2025-05-09 15:02 | XMS_ITS | Encounter Summary ---
Author Organization [facility] Address [address] [place] [address] Care Team Providers Care Jig Boring Machine Operator For Metal Name Role Phone Unavailable Primary Care Provider Unavailabl e Encounter Details Date Type Department Care Team (Late Contact Info) Description 08/21/2023 Abstract [facility] OB [address] [place] [address] Nolan Cortes, [facility] Olivia Jeffries, [facility]11 [...]
--- OUTSIDE RECORDS SUMMARY | 2025-05-09 15:02 | XMS_ITS | Encounter Summary ---
Author Organization [facility] Address [address] [place] [address] Care Team Providers Care Route Inspector Name Role Phone Unavailable Primary Care Provider Unavailabl e Encounter Details Date Type Department Care Team (Late Contact Info) Description 12/02/2024 Abstract [facility] OB [address] [place] [address] Nolan Cortes DO [address], [facility]11 Social History Tobacco Use Types Packs/Day [...] Routine [facility] OB [address] [place] [address] Nolan Cortes DO [address] [place] [address] documented as of this encounter Visit Diagnoses Not on filedocumented in this encounter
--- OUTSIDE RECORDS SUMMARY | 2025-05-09 15:02 | XMS_ITS | Encounter Summary ---
Author Organization [facility] Address [address] [place] [address] Care Team Providers Care Dairy Processing Supervisor Name Role Phone Unavailable Primary Care Provider Unavailabl e Encounter Details Date Type Department Care Team (Late Contact Info) Description 01/24/2025 Abstract [facility] OB [address] [place] [address] Nolan Cortes DO [address], [facility]11 Social History Tobacco Use Types [...]
--- OUTSIDE RECORDS SUMMARY | 2025-05-09 15:02 | XMS_ITS | Encounter Summary ---
Author Organization [facility] Address [address] [place] [address] Care Team Providers Care Shipping Specialist Name Role Phone Unavailable Primary Care Provider Unavailabl e Encounter Details Date Type Department Care Team (Late st Contact Info) Description 11/26/2024 Clinisync Result Encounter [facility] External Department Unsolicited Thomas Cortes, DO [address] [place] [address] Social History Tobacco Use [...] [facility] OB [address] [place] [address] Thomas Cortes, DO [address] [place] [address] documented as of this encounter Procedures Procedure Name Priority Date/Time Associated Diagnosis Comments US OB TRANSVAGINAL 11/26/2024 9: 35 AM EST documented in this encounter Results * US OB TRANSVAGINAL (11/26/2024 9:35 AM EST) Anatomical Region Laterality Modality Other 11/26/2024 9:35 AM EST Narrative 11/26/2024 9:37 AM EST [address] [address] Ultrasound Report Signed Patient: KIRA PURVIS MR#: [id number] : 1990 Acct:[id number] Age/Sex: 34 / F ADM Date: 11/26/24 Loc: US Attending Dr: Thomas Cortes D.O. Ordering Physician: Thomas Cortes D.O. Date of Service: 11/26/24 Procedure(s): US OB transvaginal Accession Number(s): [id number] cc: Thomas Cortes D.O.; Physician,Non-Staff Nikky [address] [address] Patient Name: KIRA PURVIS MRN: [id number] date: 1990 Sex: F Assigned Patient Location: US Current Patient Location: US Accession/Order Number: [id number] Exam Date: 11/26/2024 08:36 Report Date: 11/26/2024 [...] Dillon M.D. Signed By: 11/26/2437 DD/ TD/TT: Focus Puller: Procedure Note Radiology, Radiologist, - 11/26/2024 [place] [address] Ultrasound Report Signed Patient: KIRA PURVIS LMR#: [id number] : 1990Acct:[id number] Age/Sex: 34 / FADM Date: 11/26/24 Loc: US Attending Dr: Thomas Cortes D.O. Ordering Physician: Thomas Cortes D.O. Date of Service: 11/26/24 Procedure(s): US OB transvaginal Accession Number(s): [id number] cc: Thomas Cortes D.O.; Physician,Non-Staff Nikky The [place] [id number] Patient Name: KIRA PURVIS MRN: [id number] date: 1990 Sex: F Assigned Patient Location: US Current Patient Location: US Accession/Order Number: [id number] Exam Date: 11/26/2024 08:36 Report Date: 11/26/2024 [...] M.D. Signed By:11/26/24 0937 DD/ 0935 TD/TT: Focus Puller: us [facility] DO [facility] Final Result documented in this encounter Visit Diagnoses Not on filedocumented in this encounter
--- OUTSIDE RECORDS SUMMARY | 2025-05-09 15:02 | XMS_ITS | Encounter Summary ---
Author Organization [facility] Address [address] [place] [address] Care Team Providers Care Faith Healer Name Role Phone Unavailable Primary Care Provider Unavailabl e Encounter Details Date Type Department Care Team (Late Contact Info) Description 08/21/2023 Abstract [facility] OB [address] [place] [address] Nolan Cortes, [facility] Olivia Jeffries, [id number] Social History Tobacco Use Types Packs/Day Years [...] [address] Nolan Cortes, DO [address], [facility]11 documented as of this encounter Visit Diagnoses Not on filedocumented in this encounter
--- OUTSIDE RECORDS SUMMARY | 2025-05-09 15:03 | XMS_ITS | Encounter Summary ---
Author Organization [facility] Address [address] [place] [address] Care Team Providers Care Signal Engineer Name Role Phone Unavailable Primary Care Provider Unavailabl e Encounter Details Date Type Department Care Team (Late st Contact Info) Description 04/14/2023 Abstract [facility] OB [address] [facility] [address] Nolan Cortes, DO [address], [facility]11 Social History Tobacco Use Types [...] Description 05/17/2025 11:40 AM EDT Routine [facility] OB [address] [facility] [place] [address] Nolan Cortes, DO [address] [place], [place] [address] documented as of this encounter Visit Diagnoses Not on filedocumented in this encounter
--- OUTSIDE RECORDS SUMMARY | 2025-05-09 15:03 | XMS_ITS | Encounter Summary ---
Author Organization [facility] Address [address] [place] [address] Care Team Providers Care Dance Choreographer Name Role Phone Unavailable Primary Care Provider Unavailabl e Encounter Details Date Type Department Care Team (Late Contact Info) Description 05/02/2025 Bamboo flowsheet [facility] OB [address] [facility] [place] [place] [address] Kristan Fish PA [address] [facility] [address] [place], [facility] [...] Routine NOM[facility] OB [address] [facility] [place] [address] Nolan Cortes DO [address] [facility] [address] Roc[address] [place], [facility] [address] documented as of this encounter Visit Diagnoses Not on filedocumented in this encounter
--- OUTSIDE RECORDS SUMMARY | 2025-05-09 15:03 | XMS_ITS | Encounter Summary ---
Demographics Address [address] [place] [address] Mobile Phone Home Phone Email Address Email Address Preferred Language Syriac Marital Status Holiness Affiliation Unknown Race White Ethnic Group Not or Lati no Author Organization [facility] [employer] tem Address [id number] [address] [place] [address] Support Name Relationship Address Phone Dariusz Purvis Emergency Contact [address] [place] [address] Sravani Villasenor Personal Relationship [address] [place] [address] Laura Cope Personal Relationship Unknown [phone] Care Team Providers Care Rod Mill Tender Name Role Phone Eli Azul MD Primary Care Provider + Encounter Details Date Type Department Care Team (Late st Contact Info) Description 04/29/2025 Telephone Maternal- Medicine at [facility] [address] [place] [address] Rufina Hurd CMA Social History Tobacco Use [...] Hurd CMA - 04/29/2025 9:31 AM EDT HOTEL BAGGAGE HANDLER CALLED THE PATIENT. NO ANSWER. LEFT VM [...] 10:00 AM EDT Telemedicine Maternal- Medicine at [facility] [address] [place] [address] Kenya Acosta, [facility] [address] [address] documented as of this encounter Visit Diagnoses Not on filedocumented in this encounter Care Teams Rod Mill Tender Relationship Specialty Start Date End Date Eli Azul MD PCP - General Pediatrics 06/23/18 documented as of this encounter
--- OUTSIDE RECORDS SUMMARY | 2025-05-09 15:03 | XMS_ITS | Encounter Summary ---
Author Organization [facility] Address [address] [place] [address] Care Team Providers Care Machine Stoppage Frequency Checker Name Role Phone Unavailable Primary Care Provider Unavailabl e Encounter Details Date Type Department Care Team (Late Contact Info) Description 04/24/2023 Abstract [facility] OB [address] [place] [address] Nolan Cortes, [facility] Olivia Jeffries, [facility]11 Social History Tobacco Use Types Packs/Day [...] [facility] BCP OB [address] [place] [address] Nolan Cortes, DO [address], [facility]11 documented as of this encounter Visit Diagnoses Not on filedocumented in this encounter
--- OUTSIDE RECORDS SUMMARY | 2025-05-09 15:03 | XMS_ITS | Encounter Summary ---
Author Organization [facility] Address [address] [place] [address] Care Team Providers Care Financial Adviser Name Role Phone Unavailable Primary Care Provider Unavailabl e Encounter Details Date Type Department Care Team (Late Contact Info) Description 06/11/2023 Abstract [facility] [address] [place] [address] Kristan Fish PA [address] [place] [address] Dr [place], [facility]11 Social History Tobacco Use Types Packs/Day Years [...] Description 05/17/2025 11:40 AM EDT Routine N[facility] [address] [place] [address] Nolan Cortes DO [address] [place] [address] Dr Rocael [place], [facility]11 documented as of this encounter Visit Diagnoses Not on filedocumented in this encounter
--- OUTSIDE RECORDS SUMMARY | 2025-05-09 15:03 | XMS_ITS | Encounter Summary ---
Author Organization [facility] Address [address] [place] [address] Care Team Providers Care X Ray Service Engineer Name Role Phone Unavailable Primary Care Provider Unavailabl e Encounter Details Date Type Department Care Team (Late Contact Info) Description 02/01/2025 Abstract [facility] OB [address] [place] [address] Nolan Cortes DO [address], [facility]11 Social History Tobacco Use Types Packs/Day [...] OB [address] [place] [address] Nolan Cortes DO [address] [place] [address] documented as of this encounter Visit Diagnoses Not on filedocumented in this encounter
--- OUTSIDE RECORDS SUMMARY | 2025-05-09 15:03 | XMS_ITS | Encounter Summary ---
Author Organization [facility] Address [address] [place] [address] Care Team Providers Care Mailing Machine Operator Name Role Phone Unavailable Primary Care Provider Unavailabl e Encounter Details Date Type Department Care Team (Late Contact Info) Description 12/01/2024 Abstract [facility] [address] [place] [address] Nolan Cortes DO [address], [facility]11 Social History Tobacco Use Types Packs/Day [...] [address] [place] [address] Nolan Cortes DO [address] [place] [address] documented as of this encounter Visit Diagnoses Not on filedocumented in this encounter
--- OUTSIDE RECORDS SUMMARY | 2025-05-09 15:03 | XMS_ITS | Encounter Summary ---
Author Organization [facility] Address [address] [place] [address] Care Team Providers Care Refrigeration Plant Operator Name Role Phone Unavailable Primary Care Provider Unavailabl e Encounter Details Date Type Department Care Team (Late Contact Info) Description 04/25/2023 Abstract [facility] OB [address] [place] [address] Nolan Cortes, [facility] Olivia Jeffries, [facility]11 Social History Tobacco Use Types Packs/Day Years [...] [facility] BCP [address] [place] [id number] Nolan Cortes, DO [address], [facility]11 documented as of this encounter Visit Diagnoses Not on filedocumented in this encounter
--- OUTSIDE RECORDS SUMMARY | 2025-05-09 15:03 | XMS_ITS | Encounter Summary ---
Author Organization [facility] Address [address] [place] [address] Care Team Providers Care Inside Sales Manager Name Role Phone Unavailable Primary Care Provider Unavailabl e Encounter Details Date Type Department Care Team (Late Contact Info) Description 05/20/2023 Abstract [facility] OB [address] [place] [address] Nolan Cortes, [facility] Olivia Jeffries, [facility]11 Social History Tobacco Use Types Packs/Day [...] [facility] BCP [address] [place] [address] Nolan Cortes, DO [address], [facility]11 documented as of this encounter Visit Diagnoses Not on filedocumented in this encounter
--- OUTSIDE RECORDS SUMMARY | 2025-05-09 15:03 | XMS_ITS | Encounter Summary ---
Author Organization [facility] Address [address] [place] [address] Care Team Providers Care Manager Cash Name Role Phone Unavailable Primary Care Provider Unavailabl e Encounter Details Date Type Department Care Team (Late Contact Info) Description 08/08/2023 Clinisync Result Encounter [facility] External Department Unsolicited Thomas Cortes[address] [place] [address] Social History Tobacco Use Types Packs/Day Years [...] Description 05/17/2025 11:40 AM EDT Routine [facility] OB [address] [place] [phone] Thomas [address]es[address] [place] [address] documented as of this encounter Procedures Procedure Name Priority Date/Time Associated Diagnosis Comments US OB GROWTH 08/08/2023 3:08 PM EDT documented in this encounter Results * US OB GROWTH (08/08/2023 3:08 PM EDT) Anatomical Region Laterality Modality Other 08/08/2023 3:08 PM EDT Narrative 08/08/2023 3:08 [place] [address] Ultrasound Report Signed Patient: KIRA PURVIS MR#: [id number] : 1990 Acct:[id number] Age/Sex: 32 / F ADM Date: 08/07/23 Loc: US Attending Dr: Thomas Cortes D.O. Ordering Physician: Thomas Cortes D.O. Date of Service: 08/07/23 Procedure(s): US OB growth Accession Number(s): [id number] cc: Thomas Cortes D.O.; Physician,Non-Staff [place] [address] Patient Name: KIRA PURVIS MRN: [facility]:[id number] date: 1990 Sex: F Assigned Patient Location: [facility] Current Patient Location: US Accession/Order Number: [id number] Exam Date: 08/07/2023 16:05 Report Date: 08/08/2023 [...] Signed By: 08/08/23 1511 DD/ 1508 TD/TT: Complaint Supervisor: Procedure Note Radiology, Radiologist, - 08/08/2023 [place] [address] Ultrasound Report Signed Patient: KIRA PURVIS LMR#: [id number] : 1990Acct:[id number] Age/Sex: 32 / FADM Date: 08/07/23 Loc: US Attending Dr: Thomas Cortes D.O. Ordering Physician: Thomas Cortes D.O. Date of Service: 08/07/23 Procedure(s): US OB growth Accession Number(s): [id number] cc: Thomas Cortes D.O.; Physician,Non-Staff Nikky The [place] [address] Patient Name: KIRA PURVIS MRN: [facility]:[id number] date: 1990 Sex: F Assigned Patient Location: [facility] Current Patient Location: US Accession/Order Number: [id number] Exam Date: 08/07/2023 16:05 Report Date: 08/08/2023 [...] M.D. Signed By:08/08/23 1511 DD/ 1508 TD/TT: Complaint Supervisor: us Thomas Sebastian DO [facility] Final Result documented in this encounter Visit Diagnoses Not on filedocumented in this encounter
--- OUTSIDE RECORDS SUMMARY | 2025-05-09 15:03 | XMS_ITS | Encounter Summary ---
Author Organization [facility] Address [address] [place] [address] Care Team Providers Care Lens Maker Name Role Phone Unavailable Primary Care Provider Unavailabl e Encounter Details Date Type Department Care Team (Late Contact Info) Description 05/02/2025 Clinisync Result Encounter [facility] External Department Unsolicited Thomas Cortes, DO [address], [place] [phone] Social History Tobacco Use Types Packs/Day Years [...] Routine [facility] B[facility] OB [address] [place] [address] Thomas Cortes DO [address], [place] [phone] documented as of this encounter Procedures Procedure Name Priority Date/Time Associated Diagnosis Comments US OB BPP W NON-STRESS 05/02/2025 4:30 PM EDT documented in this encounter Results * US OB BPP W NON-STRESS (05/02/2025 4:30 PM EDT) Anatomical Region Laterality Modality Other 05/02/2025 4:30 PM EDT Narrative 05/02/2025 4:32 PM EDT [address] [address] Ultrasound Report Signed Patient: KIRA PURVIS MR#: [id number] : 1990 Acct:[id number] Age/Sex: 34 / F ADM Date: 05/02/25 Loc: US Attending Dr: Thomas Cortes D.O. Ordering Physician: Thomas Cortes D.O. Date of Service: 05/02/25 Procedure(s): US OB BPP w non-stress Accession Number(s): [id number] cc: Thomas Cortes D.O.; Physician,Non-Staff Nik[place] [address] [address] Patient Name: KIRA PURVIS MRN: [id number] date: 1990 Sex: F Assigned Patient Location: [facility] Current Patient Location: Accession/Order Number: [id number] Exam Date: 05/02/2025 16:28 Report Date: 05/02/2025 [...] Maxwell M.D. 05/02/2025 4:30 PM Dictation Location: [place] [address] Electronically authenticated by: [id number] Y Date: 05/02/2025 16:30 Dictated By: Marquis Maxwell M.D. Signed By: 05/02/25 163 DD/ 163 TD/TT: Insole Presser: Procedure Note Radiology, Radiologist, - 05/02/2025 [place] [address] Ultrasound Report Signed Patient: KIRA PURVIS LMR#: [id number] : 1990Acct:[id number] Age/Sex: 34 / FADM Date: 05/02/25 Loc: US Attending Dr: Thomas Cortes D.O. Ordering Physician: Thomas Cortes D.O. Date of Service: 05/02/25 Procedure(s): US OB BPP w non-stress Accession Number(s): [id number] cc: Thomas Cortes D.O.; Physician,Non-Staff Nikky The [address] [address] Patient Name: KIRA PURVIS MRN: [facility]:[id number] date: 1990 Sex: F Assigned Patient Location: [facility] Current Patient Location: Accession/Order Number: [id number] Exam Date: 05/02/2025 16:28 Report Date: 05/02/2025 [...] Maxwell M.D. 05/02/2025 4:30 PM Dictation Location: [place] [address] Electronically authenticated by: [id number] Y Date: 6:30 Dictated By: Marquis Maxwell M.D. Signed By:05/02/25 1632 DD/ 29 TD/TT: Insole Presser: us Thomas Cortes DO [facility] Final Result documented in this encounter Visit Diagnoses Not on filedocumented in this encounter
--- OUTSIDE RECORDS SUMMARY | 2025-05-09 15:03 | XMS_ITS | Encounter Summary ---
Author Organization [facility] Address [address] [facility] [address] [place] [address] Care Team Providers Care Multifocal Lens Assembler Name Role Phone Unavailable Primary Care Provider Unavailabl e Encounter Details Date Type Department Care Team (Late Contact Info) Description 03/26/2024 Orders Only [facility] [address] [place] [address] Bertha Quevedo LPN [address] [place] [address] Social History Tobacco Use Types Packs/Day Years [...] AM EDT Routine [facility] OB [address] [place] [address] Nolan Cortes DO [address] [place] [address] documented as of this encounter Procedures [...]
--- OUTSIDE RECORDS SUMMARY | 2025-05-09 15:03 | XMS_ITS | Encounter Summary ---
Author Organization [facility] Address [address] [place] [address] Care Team Providers Care It Coordinator Name Role Phone Unavailable Primary Care Provider Unavailabl e Encounter Details Date Type Department Care Team (Late Contact Info) Description 04/25/2025 Clinisync Result Encounter [facility] External Department Unsolicited Thomas Cortes, DO [address] [place], [place] [phone] Social History Tobacco Use Types Packs/Day Years [...] [facility] BCP OB [address] [place] [address] Thomas Cortes DO [address], [place] [phone] documented as of this encounter Procedures Procedure Name Priority Date/Time Associated Diagnosis Comments US OB BPP W NON-STRESS 04/25/2025 9:36 PM EDT documented in this encounter Results * US OB BPP W NON-STRESS (04/25/2025 9:36 PM EDT) Anatomical Region Laterality Modality Other 04/25/2025 9:36 PM EDT Narrative 04/25/2025 9:38 PM EDT [address] [address] Ultrasound Report Signed Patient: KIRA PURVIS MR#: [id number] : 1990 Acct:[id number] Age/Sex: 34 / F ADM Date: 04/25/25 Loc: US Attending Dr: Thomas Cortes D.O. Ordering Physician: Thomas Cortes D.O. Date of Service: 04/25/25 Procedure(s): US OB BPP w non-stress Accession Number(s): [id number] cc: Thomas Cortes D.O.; Physician,Non-Staff [place] [id number] Patient Name: KIRA PURVIS MRN: [facility]:[id number] date: 1990 Sex: F Assigned Patient Location: [facility] Current Patient Location: Accession/Order Number: [id number] Exam Date: 04/25/2025 21:35 Report Date: 04/25/2025 [...] Olvera M.D. 04/25/2025 9:36 PM Dictation Location: [place] [address] Electronically authenticated by: [id number] Y Date: 04/25/2025 21:36 Dictated By: Harlan Olvera D.O. Signed By: 04/25/252137 DD/ 35 TD/TT: Billet Sawyer: Procedure Note Radiology, Radiologist, MD - 04/25/2025 The [place] [id number] Ultrasound Report Signed Patient: KIRA PURVIS LMR#: [id number] : 1990Acct:[id number] Age/Sex: 34 / FADM Date: 04/25/25 Loc: US Attending Dr: Thomas Cortes D.O. Ordering Physician: Thomas Cortes D.O. Date of Service: 04/25/25 Procedure(s): US OB BPP w non-stress Accession Number(s): [id number] cc: Thomas Cortes D.O.; Physician,Non-Staff Nikky The [place] [id number] Patient Name: KIRA PURVIS MRN: [facility]:[id number] date: 1990 Sex: F Assigned Patient Location: [facility] Current Patient Location: Accession/Order Number: [id number] Exam Date: 04/25/2025 21:35 Report Date: 04/25/2025 [...] Olvera M.D. 04/25/2025 9:36 PM [facility]ation [facility] Electron[facility] authenticated by: [id number] Y Date: 1:36 Dictated By: Harlan Olvera D.O. Signed By:04/25/252137 DD/ 35 TD/TT: Billet Sawyer: us Thomas Cortes DO [facility] Final Result documented in this encounter Visit Diagnoses Not on filedocumented in this encounter
--- OUTSIDE RECORDS SUMMARY | 2025-05-09 15:03 | XMS_ITS | Encounter Summary ---
Demographics Address [address] [place] [address] Mobile Phone Home Phone Email Address Email Address Preferred Language Kinyarwanda Marital Status Jewish Affiliation Unknown Race White Ethnic Group Not or Lati no Author Organization [facility] Science tem Address [id number] [address] [place] [address] Support Name Relationship Address Phone Dariusz Purvis Emergency Contact [address] [place] [address] Sravani Villasenor Personal Relationship [address] [place] [address] Laura Cope Personal Relationship Unknown [phone] Care Team Providers Care Aircraft Detail Draftsperson Name Role Phone Eli Azul MD Primary Care Provider + Encounter Details Date Type Department Care Team (Late st Contact Info) Description 03/15/2025 Orders Only [facility]- Medicine at [facility] [address] [place] [address] Rufina Hurd CMA Social History Tobacco Use [...] 10:00 AM EDT Telemedicine Maternal- Medicine at [facility] [address] [place] [address] Kenya Acosta, [facility] [address] [address] documented as of this encounter Visit Diagnoses Not on filedocumented in this encounter Care Teams Aircraft Detail Draftsperson Relationship Specialty Start Date End Date Eli Azul MD PCP - General Pediatrics 06/23/18 documented as of this encounter
--- OUTSIDE RECORDS SUMMARY | 2025-05-09 15:03 | XMS_ITS | Encounter Summary ---
Author Organization [facility] Address [address] [place] [address] Care Team Providers Care Jacquard Card Lacer Name Role Phone Unavailable Primary Care Provider Unavailabl e Encounter Details Date Type Department Care Team (Late Contact Info) Description 04/22/[address] [facility] OB [address] [place] [address] Nolan Cortes, [facility] Olivia Jeffries, [facility]11 Social History Tobacco Use Types Packs/Day Years [...] OB [address] [place] [address] Nolan Cortes, DO [address], [facility]11 documented as of this encounter Visit Diagnoses Not on filedocumented in this encounter
--- OUTSIDE RECORDS SUMMARY | 2025-05-09 15:03 | XMS_ITS | Clinical Summary ---
Author Organization [facility] Healthcare Address [address] [place] [address] Care Team Providers Care Group Insurance Special Agent Name Role Phone Unavailable Primary Care Provider Unavailabl e Allergies No known active allergies Medications Alcohol Swabs (Alcohol Prep Pad) 70 % padsIndications:G estational diabetes mellitus (GDM), antepartum, gestational diabetes method of control unspecified ([facility]),Elevate d glucose tolerance test Apply 1 Pad [...] antepartum, gestational diabetes method of control unspecified ([facility]),Elevate d glucose tolerance test USE TO CHECK [...] Benign essential hypertensio n in obstetric context ([facility]) 04/18/2023 Exposure to cat feces 04/18/2023 Gestational diabetes ([facility]) 04/18/2023 Nausea 04/18/2023 History of delivery 02/24/2023 Estimated Date of Delivery Comme nts Yes 06/24/2025 Based on last me nstrual period of 09/17/2024 Encounters Date Type Department Care Team Description 05/02/2025 10:50 AM EDT Routine [facility] [address] [place] [address] Kristan Fish PA 32 weeks gestation of ([facility]); Third trimester ([facility]) 05/02/2025 Clinisync Result Encounter [facility] External Department Unsolicited Thomas Cortes, DO 05/02/2025 Bamboo flowsheet [facility] [address] [place] [address] Kristan Fish PA 04/25/2025 Clinisync Result Encounter N[facility] External Department Unsolicited Thomas Cortes, DO 04/18/2025 1:00 PM EDT Routine [facility] [address] [place] [address] Thomas Cortes, DO 30 weeks gestation of ([facility]); Third trimester ([facility]) 04/18/2025 Clinisync Result Encounter [facility] External Department Unsolicited Thomas Cortes, DO 04/18/2025 Bamboo flowsheet [facility] [address] [place] [address] Thomas Cortes, DO 04/11/2025 Clinisync Result Encounter NOMS External Department Unsolicited Thomas Cortes, DO 04/11/2025 Travel 04/06/2025 Abstract [facility] OB [address] [place] [address] Thomas Cortes, DO 04/05/2025 1:50 PM EDT Routine [facility] OB [address] [place] [address] Thomas Cortes, DO Third trimester ([facility]); 28 weeks gestation of ([facility]); Gestational diabetes mellitus (GDM), antepartum, gestational diabetes method of control unspecified ([facility]); H/O: hypertension 04/05/2025 Bamboo flowsheet [facility] [address] [facility] [place] [place] [address] Thomas Cortes, 03/14/2025 1:50 PM EDT Routine NOM[facility] [address] [place] [address] Thomas Cortes, Second trimester ([facility]); 25 weeks gestation of ([facility]) 03/14/2025 Bamboo flowsheet [facility] [address] [place] [address] [place] [address] Thomas Cortes, 03/08/2025 Telephone [facility] [address] [place] [address] Suze Hendrix MA 03/07/2025 Abstract [facility] [address] [place] [address] Thomas Cortes, 03/07/2025 Clinisync Result Encounter NOMS External Department Unsolicited Thomas Cortes, 02/21/2025 1:20 PM EDT Routine [facility] [address] [facility] [place] [place] [address] Thomas Cortes, Second trimester ([facility]); 22 weeks gestation of ([facility]) 02/21/2025 Bamboo flowsheet [facility] [address] [facility] [place] [address] Thomas Cortes, 02/18/2025 Refill [facility] [address] [facility] [place] [place] [address] Thomas Cortes, Gestational diabetes mellitus (GDM), antepartum, gestational diabetes method of control unspecified ([facility]); Elevated glucose tolerance test 02/17/2025 Telephone [address] [address] [place] [address] Suze Hendirx MA 02/14/2025 1:00 PM EDT Ancillary Procedure [facility]OM[facility] [address] [place] [address] Screening, , for anatomic survey ([facility]) 02/14/2025 Travel 02/07/2025 Clinisync Result Encounter [facility] [...] Description 05/17/2025 11:40 AM EDT Routine [facility] [address] [place] [address] Thomas Cortes, [address] [place], [place] [id number] Procedures Procedure Name Priority Date/Time Associated Diagnosis Comments US OB BPP W NON-STRESS 05/02/2025 4:30 PM EDT POCT URINALYSIS DIPSTICK Routine 05/02/2025 11:00 AM EDT 32 weeks gestation of ([facility]) Third trimester ([facility]) US OB BPP W NON-STRESS 04/25/2025 9:36 PM EDT US OB BPP W NON-STRESS 04/18/2025 4:07 PM EDT POCT URINALYSIS DIPSTICK Routine 04/18/2025 1:14 PM EDT 30 weeks gestation of ([facility]) Third trimester ([facility]) US OB BPP W NON-STRESS 04/11/2025 4:05 PM EDT POCT URINALYSIS DIPSTICK Routine 04/05/2025 2:19 PM EDT Third trimester ([facility]) US OB INCOMPLETE ANATOMY 03/07/2025 12:42 PM EDT POCT URINALYSIS DIPSTICK Routine 02/21/2025 2:08 PM EDT Second trimester ([facility]) US OB 14+ WEEKS ANATOMY SCAN Routine 02/14/2025 2:03 PM EDT Screening, , for anatomic survey ([facility]) AFP, SERUM, OPEN SPINA BIFIDA Routine 02/07/2025 11:20 AM EDT from Last 3 Months Results * US OB BPP W NON-STRESS (05/02/2025 4:30 PM EDT) Only the most recent of4 resultswithin the time period is included. Anatomical Region Laterality Modality Other 05/02/2025 4:30 PM EDT Narrative 05/02/2025 4:32 [place] [address] Ultrasound Report Signed Patient: CHARLENE PURVIS MR#: [id number] : 1990 Acct:[id number] Age/Sex: 34 / F ADM Date: 05/02/25 Loc: US Attending Dr: Thomas Cortes D.O. Ordering Physician: Thomas Cortes D.O. Date of Service: 05/02/25 Procedure(s): US OB BPP w non-stress Accession Number(s): [id number] cc: Thomas Cortes D.O.; Physician,Non-Staff [place] [id number] Patient Name: CHARLENE PURVIS MRN: [id number] date: 1990 Sex: F Assigned Patient Location: [facility] Current Patient Location: Accession/Order Number: [id number] Exam Date: 05/02/2025 16:28 Report Date: 05/02/2025 [...] Maxwell M.D. 05/02/2025 4:30 PM Dictation Location: [place] [address] Electronically authenticated by: [id number] Y Date: 05/02/2025 16:30 Dictated By: Marquis Maxwell M.D. Signed By: 05/02/25 1632 DD/ 163 TD/TT: Diesel Technology Instructor: Procedure Note Radiology, Radiologist, MD - 05/02/2025 The [place] [id number] Ultrasound Report Signed Patient: CHARLENE PURVIS LMR#: [id number] : 1990Acct:[id number] Age/Sex: 34 / FADM Date: 05/02/25 Loc: US Attending Dr: Thomas Cortes D.O. Ordering Physician: Thomas Cortes D.O. Date of Service: 05/02/25 Procedure(s): US OB BPP w non-stress Accession Number(s): [id number] cc: Thomas Cortes D.O.; Physician,Non-Staff Nikky The [place] [id number] Patient Name: CHARLENE PURVIS MRN: [facility]:[id number] date: 1990 Sex: F Assigned Patient Location: [facility] Current Patient Location: Accession/Order Number: [id number] Exam Date: 05/02/2025 16:28 Report Date: 05/02/2025 [...] Maxwell M.D. 05/02/2025 4:30 PM Dictation Location: [place] [address] Electronically authenticated by: [id number] Y Date: 6:30 Dictated By: Marquis Maxwell M.D. Signed By:05/02/25 1632 DD/ 1630 TD/TT: Diesel Technology Instructor: us Thomas Cortes DO [facility] Final [...] PM EDT Narrative 03/07/2025 12:44 PM EDT [address] [address] Ultrasound Report Signed Patient: CHARLENE PURVIS MR#: [id number] : 1990 Acct:[id number] Age/Sex: 34 / F ADM Date: 03/05/25 Loc: US Attending Dr: Thomas Cortes D.O. Ordering Physician: Thomas Cortes D.O. Date of Service: 03/05/25 Procedure(s): US OB incomplete anatomy Accession Number(s): [id number] cc: Thomas Cortes D.O.; Physician,Non-Staff Nikky The [address] [address] Patient Name: CHARLENE PURVIS MRN: [facility]:[id number] date: 1990 Sex: F Assigned Patient Location: US Current Patient Location: Accession/Order Number: [id number] Exam Date: 03/07/2025 12:39 Report Date: 03/07/2025 [...] Jr., D.O. 03/07/2025 12:42 PM Dictation Location: [place] [address] Electronically authenticated by: [id number] Y Date: 03/07/2025 12:42 Dictated By: Jacinto Rivas M.D. Signed By: 03/07/25 1244 DD/ 1242 TD/TT: Diesel Technology Instructor: Procedure Note Radiology, Radiologist, MD - 03/07/[address] [address] Ultrasound Report Signed Patient: CHARLENE PURVIS LMR#: [id number] : 1990Acct:[id number] Age/Sex: 34 / FADM Date: 03/05/25 Loc: US Attending Dr: Thomas Cortes D.O. Ordering Physician: Thomas Cortes D.O. Date of Service: 03/05/25 Procedure(s): US OB incomplete anatomy Accession Number(s): [id number] cc: Thomas Cortes D.O.; Physician,Non-Staff Nikky [address] [address] Patient Name: CHARLENE PURVIS MRN: [facility]:[id number] date: 1990 Sex: F Assigned Patient Location: US Current Patient Location: Accession/Order Number: [id number] Exam Date: 03/07/2025 12:39 Report Date: 03/07/2025 [...] Jr., D.O. 03/07/2025 12:42 PM Dictation Location: [place] [address] Electronically authenticated by: [id number] Y Date: 2:42 Dictated By: Jacinto Rivas M.D. Signed By:03/07/25 1244 DD/ 1242 TD/TT: Diesel Technology Instructor: us Thomas Cortes DO [facility] Final [...] II, MD, PHD at 15-Feb-2025 11:25:23 PM [facility] Procedure Note Mony Arenas MD - [...] of the outflow tracts and kidneys. A [id number] ultrasound is recommended. Interpreted by: Electronically signed by MONY ARENAS II, MD, PHD [id number] 11:25:23 PM [facility] us Thomas Sebastian DO IMG OB US PROCEDURES Final Resul t * AFP, SERUM, OPEN SPINA BIFIDA (02/07/2025 11:20 AM EDT) [facility] RESULTS Report . [facility] TEST RESULTS: *Screen Negative* . [facility] GEST. AGE ON COLLECTION DATE 20.4 . weeks [facility] GESTAT. AGE BASED ON LMP . [facility] Comment: Recalculations are not recommended when gestational dating by LMP and ultrasound are within 10 days. [age] . [age] [facility] RACE . [facility] WEIGHT 289 . lbs [facility] INSULIN DEP DIABETES No . [facility] MULTIPLE GESTATION No . H AFP VALUE 34.5 . ng/mL [facility] AFP MOM 0.84 . [facility] [place] [place] [address] . [facility] INTERPRETATION Comment . [facility] Comment: Interpretation: Screen Negative This result [...] age 35 and older. COMMENT: Comment . [facility] Comment: Tiffany Shah, Ph.D., [facility] Director References: Available Upon Request. Multiples Of Median Cutoffs For AFP Elevations Steiner 2.5 Black 2.8 IDD 2.0 Twins 4.5 Abbreviation Definitions IDD - Insulin Dep Diabetes OSBR - Open Spina Bifida Risk For further inquiries contact [facility] at [phone]. This test was developed and its performance characteristics determined by [employer]. It has not been cleared or approved by the Food and Drug Administration. Performed at: [facility] [address] [place], [place] [id number] Nursing Administrator: Rogelio Rice [facility], Phone: [phone] 02/07/2025 11:2 0 AM EDT 02/07/2025 11:34 AM EDT Narrative [facility] - 02/09/2025 12:07 AM EDT N N LMP [id number] 3 18 N 1 Y 289 N N N N N White/ Thomas Cortes DO LAB BLOOD ORDERABLES Final Resul t [facility] from Last 3 Months Insurance
--- OUTSIDE RECORDS SUMMARY | 2025-05-09 15:03 | XMS_ITS | Clinical Summary ---
Demographics Address [address] [place] [address] Mobile Phone Home Phone Email Address Email Address Preferred Language Pashto Marital Status Yarsanism Affiliation Unknown Race White Ethnic Group Not or Lati no Author Organization [email or web address] Address [id number] [address] [place] [address] Support Name Relationship Address Phone Dariusz Purvis Emergency Contact [address] [place] [address] Sravani Villasenor Personal Relationship [address] [place] [address] Laura Cope Personal Relationship Unknown [phone] Care Team Providers Care Information Strategist Name Role Phone Eli Azul MD Primary [...] Team Description 04/29/2025 Telephone Maternal- Medicine at [facility] [address] [place] [address] Rufina Hurd CMA 04/19/2025 10:30 AM EDT Telemedicine Maternal- Medicine at [facility] [address] [place] [address] Kenya Acosta, UDAY Gestational diabetes mellitus (GDM) in second trimester controlled on oral hypoglycemic drug (Primary Dx) 04/19/2025 Travel 04/19/2025 Telephone Maternal- Medicine at [facility] [address] [place] [address] Rufina Hurd CMA 04/01/2025 Telephone Maternal- Medicine at [facility] [address] [place] [address] Violet Lopez RN 03/23/2025 10:30 AM EDT Telemedicine Maternal- Medicine at [facility] [address] [place] [address] Iman Hall, [employer]ORER-PREMA Gestational diabetes mellitus (GDM) in second trimester controlled on oral hypoglycemic drug 03/23/2025 Travel 03/23/2025 Telephone Maternal- Medicine at [facility] [address] [place] [address] Rufina Hurd CMA 03/16/2025 Telephone Maternal- Medicine at [facility] [address] [place] [address] Violet Lopez, RN 03/15/2025 Orders Only Maternal- Medicine at [facility] [address] [place] [address] Rufina Hurd, TAINA 03/08/2025 1:00 PM EDT Office Visit [facility]aternal- Medicine at [facility] [address] [facility] [place] [address] Kenya Acosta, UDAY Gestational diabetes mellitus (GDM) in second trimester controlled on oral hypoglycemic drug (Primary Dx) 03/08/2025 Travel 03/08/2025 Telephone Maternal- Medicine at [facility] [address] [place] [address] Rufina Hurd, [facility] 03/04/2025 Telephone Maternal- Medicine at [facility] [address] [facility] [place] [place] [address] Shima Renee, URIEL 03/02/2025 Telephone Maternal- Medicine at [facility] [address] [facility] [place] [address] Shima Renee, URIEL 02/24/2025 Telephone Maternal- Medicine at [facility] [address] [place] [address] Jewels Pedersen LD 02/16/2025 9:30 AM EDT Support Visit Maternal- Medicine at [facility] [address] [facility] [place] [address] Violet Lopez, RN Alexandria Iraheta RD Diet controlled gestational diabetes mellitus (GDM) in second trimester (Primary Dx); Encounter for diabetes education 02/16/2025 Travel 02/07/2025 Orders Only Maternal- Medicine at [facility] [address] [facility] [place] [address] Ref Prov, Not In System 02/07/2025 Abstract Maternal- Medicine at [facility] [address] [place] [address] Iman Hall APRN-CNP from Last [...] 10:00 AM EDT Telemedicine Maternal- Medicine at [facility] [address] [place] [address] Kenya Acosta PA-C [address] [address] Health Maintenance Due Date Last Done Comments [...] 110 MANUALLY TRANSCRIBED RESULTS 02/16/2025 Iman Hall [employer]ER-SENIOR NET DEVELOPER LAB BLOOD ORDERABLES Fi nal Result MANUALLY TRANSCRIBED RESULTS from Last 3 Months Insurance * Guarantor: Charlene Purvis Account Type Relation to Patient Date of Phone Billing Address Personal/Family Self 1990 [facility] [address] [facility] [address] [place] [address] [facility] Care Teams Information Strategist Relationship Specialty Start Date End Date Eli Azul MD PCP - General Pediatrics 06/23/18
--- OUTSIDE RECORDS SUMMARY | 2025-05-09 15:03 | XMS_ITS | Encounter Summary ---
Author Organization [facility] Address [address] [place] [address] Care Team Providers Care Women'S Activities Adviser Name Role Phone Unavailable Primary Care Provider Unavailabl e Encounter Details Date Type Department Care Team (Late Contact Info) Description 01/27/2025 Abstract [facility] OB [address] [place] [address] Nolan Cortes DO [address] [place], [facility]11 Social History Tobacco Use Types [...]
--- OUTSIDE RECORDS SUMMARY | 2025-05-09 15:03 | XMS_ITS | Encounter Summary ---
Demographics Address [address] [place] [address] Mobile Phone Home Phone Email Address Email Address Preferred Language Kinyarwanda Marital Status Taoism Affiliation Unknown Race White Ethnic Group Not or Lati no Author Organization [facility] Address [id number] [address] [place] [address] Support Name Relationship Address Phone Dariusz Purvis Emergency Contact [address] [place] [address] Sravani Villasenor Personal Relationship [address] [place] [address] Laura Cope Personal Relationship Unknown [phone] Care Team Providers Care Cordwood Cutter Name Role Phone Eli Azul MD Primary Care Provider + Encounter Details Date Type Department Care Team (Late st Contact Info) Description 02/07/2025 Orders Only Maternal- Medicine at [facility] [address] [place] [address] Ref Prov, [place] [address] Social History Tobacco Use Types Packs/Day Years [...] EDT Telemedicine Maternal- Medicine at [facility] [address] [place] [address] Kenya Acosta PA-C [address] [address] documented as of this encounter Procedures Procedure [...] 1:52 PM EST) Anatomical Region Laterality Modality OB-ENTRY LEVEL PARALEGAL Ultrasound us Not In System Ref Prov IMG US ORDERABLES Final R esult documented in this encounter Visit Diagnoses Not on filedocumented in this encounter Care Teams Cordwood Cutter Relationship Specialty Start Date End Date Eli Azul MD PCP - General Pediatrics 06/23/18 documented as of this encounter
--- OUTSIDE RECORDS SUMMARY | 2025-05-09 15:03 | XMS_ITS | Encounter Summary ---
Author Organization [facility] Address [address] [place] [address] Care Team Providers Care Fur Cutter Name Role Phone Unavailable Primary Care Provider Unavailabl e Encounter Details Date Type Department Care Team ([facility] Contact Info) Description 07/18/2023 Clinisync Result Encounter [facility] External Department Unsolicited Thomas Cortes, DO [facility] [address] [place], [place] [id number] Social History Tobacco Use Types Packs/Day Years [...] Upcoming Encounters Date Type Department Care Team ([facility] Contact Info) Description 05/17/2025 11:40 AM EDT Routine [facility] OB [address] [place] [address] Thomas Cortes DO [facility] [place] [address] documented as of this encounter Procedures Procedure Name Priority Date/Time Associated Diagnosis Comments US OB BPP W NON-STRESS 07/18/2023 3:07 PM EDT documented in this encounter Results * US OB BPP W NON-STRESS (07/18/2023 3:07 PM EDT) Anatomical Region Laterality Modality Other 07/18/2023 3:07 PM EDT Narrative 07/18/2023 3:07 [place] [address] Ultrasound Report Signed Patient: KIRA PURVIS MR#: [id number] : 1990 Acct:[id number] Age/Sex: 32 / F ADM Date: 07/17/23 Loc: US Attending Dr: Thomas Cortes D.O. Ordering Physician: Thomas Cortes D.O. Date of Service: 07/17/23 Procedure(s): US OB BPP w non-stress Accession Number(s): [id number] cc: Thomas Cortes D.O.; Physician,Non-Staff [place] [address] Patient Name: KIRA PURVIS MRN: [facility]:[id number] date: 1990 Sex: F Assigned Patient Location: [facility] Current Patient Location: Accession/Order Number: [id number] Exam Date: 07/17/2023 16:00 Report Date: 07/18/2023 [...] M.D. Signed By: 07/18/231509 DD/ 06 TD/TT: Mind Reader: Procedure Note Radiology, Radiologist, - 08/01/2023 [place] [address] Ultrasound Report Signed Patient: KIRA PURVIS LMR#: [id number] : 1990Acct:[id number] Age/Sex: 32 / FADM Date: 07/17/23 Loc: US Attending Dr: Thomas Cortes D.O. Ordering Physician: Thomas Cortes D.O. Date of Service: 07/17/23 Procedure(s): US OB BPP w non-stress Accession Number(s): [id number] cc: Thomas Cortes D.O.; Physician,Non-Staff Nikky The [place] [address] Patient Name: KIRA PURVIS MRN: [id number] date: 1990 Sex: F Assigned Patient Location: [facility] Current Patient Location: Accession/Order Number: [id number] Exam Date: 07/17/2023 16:00 Report Date: 07/18/2023 [...] Dillon M.D. Signed By:07/18/231509 DD/ 06 TD/TT: Mind Reader: us Thomas Cortes DO [facility] Final Result documented in this encounter Visit Diagnoses Not on filedocumented in this encounter
--- OUTSIDE RECORDS SUMMARY | 2025-05-09 15:03 | XMS_ITS | Encounter Summary ---
Author Organization [facility] Address [address] [place] [address] Care Team Providers Care Computer Designer Name Role Phone Unavailable Primary Care Provider Unavailabl e Encounter Details Date Type Department Care Team (Late st Contact Info) Description 04/21/2023 Abstract [facility] OB [address] [facility] [place] [address] Nolan Cortes, DO [address] [place], [facility]11 Social History Tobacco Use Types Packs/Day [...] [facility] OB [address] [place] [place] [address] Nolan Cortes, DO [address] [place], [place] [address] documented as of this encounter Visit Diagnoses Not on filedocumented in this encounter
--- OUTSIDE RECORDS SUMMARY | 2025-05-09 15:03 | XMS_ITS | Encounter Summary ---
Author Organization [facility] Address [address] [place] [address] Care Team Providers Care Windows Systems Architect Name Role Phone Unavailable Primary Care Provider Unavailabl e Encounter Details Date Type Department Care Team (Late Contact Info) Description 03/07/2025 Abstract [facility] B[facility] OB [address] [place] [address] Nolan Cortes DO [address] [place], [...] [facility] OB [address] [place] [address] Nolan Cortes DO [address] [place] [address] documented as of this encounter Visit Diagnoses Not on filedocumented in this encounter
--- OUTSIDE RECORDS SUMMARY | 2025-05-09 15:03 | XMS_ITS | Encounter Summary ---
Author Organization [facility] Address [address] [place] [address] Care Team Providers Care Hide Buffer Name Role Phone Unavailable Primary Care Provider Unavailabl e Encounter Details Date Type Department Care Team (Late st Contact Info) Description 04/18/2023 Abstract [facility] OB [address] [facility] [place] [address] Nolan Cortes, DO [address] [place], [facility]11 Social History Tobacco Use Types Packs/Day [...] Description 05/17/2025 11:40 AM EDT Routine [facility] OB [address] [facility] [address] Nolan Cortes, DO [address] [place], [place] [address] documented as of this encounter Visit Diagnoses Not on filedocumented in this encounter
--- OUTSIDE RECORDS SUMMARY | 2025-05-09 15:03 | XMS_ITS | Encounter Summary ---
Author Organization [facility] Address [address] [place] [address] Care Team Providers Care Rand Sewer Name Role Phone Unavailable Primary Care Provider Unavailabl e Encounter Details Date Type Department Care Team (Late Contact Info) Description 04/06/2025 Abstract [facility] OB [address] [place] [address] Nolan Cortes DO [address], [facility]11 Social History Tobacco Use Types Packs/Day [...] Routine [facility] B[facility] OB [address] [place] [address] Nolan Cortes DO [address] [place] [address] documented as of this encounter Visit Diagnoses Not on filedocumented in this encounter
--- OUTSIDE RECORDS SUMMARY | 2025-05-09 15:03 | XMS_ITS | Encounter Summary ---
Author Organization [facility] Address [address] [place] [address] Care Team Providers Care Fisheries Officer Name Role Phone Unavailable Primary Care Provider Unavailabl e Encounter Details Date Type Department Care Team (Late st Contact Info) Description 04/28/2024 Clinisync Result Encounter N[facility] External Department Unsolicited Thomas Cortes, [address] [place] [address] Social History Tobacco Use Types Packs/Day Years [...] AM EDT Routine [facility] BCP OB [address] [facility] [place] [phone] Thomas Cortes[address] [place] [address] documented as of this encounter Procedures Procedure Name Priority Date/Time Associated Diagnosis Comments US PELVIS W/ TRANSVAGINAL 04/28/2024 1:16 PM EDT documented in this encounter Results * US PELVIS W/ TRANSVAGINAL (04/28/2024 1:16 PM EDT) Anatomical Region Laterality Modality Other 04/28/2024 1:16 PM EDT Narrative 04/28/2024 1:19 PM EDT [address] [address] Ultrasound Report Signed Patient: KIRA PURVIS MR#: [id number] : 1990 Acct:[id number] Age/Sex: 33 / F ADM Date: 04/27/24 Loc: US Attending Dr: Thomas Cortes D.O. Ordering Physician: Thomas Cortes D.O. Date of Service: 04/27/24 Procedure(s): US pelvis w/ transvaginal Accession Number(s): [id number] cc: Thomas Cortes D.O.; Physician,Non-Staff Nikky [address] [address] Patient Name: KIRA PURVIS MRN: [facility]:[id number] date: 1990 Sex: F Assigned Patient Location: US Current Patient Location: Accession/Order Number: [id number] Exam Date: 04/27/2024 14:00 Report Date: 04/28/2024 [...] Signed By: 04/28/24 1319 DD/ 1316 TD/TT: Management Tech: Procedure Note Radiology, Radiologist, - 04/28/2024 [place] [address] Ultrasound Report Signed Patient: KIRA PURVIS LMR#: [id number] : 1990Acct:[id number] Age/Sex: 33 / FADM Date: 04/27/24 Loc: US Attending Dr: Thomas Cortes D.O. Ordering Physician: Thomas Cortes D.O. Date of Service: 04/27/24 Procedure(s): US pelvis w/ transvaginal Accession Number(s): [id number] cc: Thomas Cortes D.O.; Physician,Non-Staff Nikky The [place] [id number] Patient Name: KIRA PURVIS MRN: [facility]:[id number] date: 1990 Sex: F Assigned Patient Location: US Current Patient Location: Accession/Order Number: [id number] Exam Date: 04/27/2024 14:00 Report Date: 04/28/2024 [...] M.D. Signed By:04/28/24 1319 DD/ 1316 TD/TT: Management Tech: us Thomas Sebastian DO [facility] Final Result documented in this encounter Visit Diagnoses Not on filedocumented in this encounter
--- OUTSIDE RECORDS SUMMARY | 2025-05-09 15:03 | XMS_ITS | Encounter Summary ---
Author Organization [facility] Address [address] [place] [address] Care Team Providers Care Planer Offbearer Name Role Phone Unavailable Primary Care Provider Unavailabl e Encounter Details Date Type Department Care Team (Late st Contact Info) Description 04/14/[address] [facility] OB [address] [facility] [place] [phone] Nolan Cortes, DO [address], [facility] Social History Tobacco Use Types Packs/Day [...] Description 05/17/2025 11:40 AM EDT [facility] OB [address] [facility] [place] [address] Nolan Cortes, DO [address], [place] [phone] documented as of this encounter Visit Diagnoses Not on filedocumented in this encounter
--- NOTE | 2025-05-09 15:04 | US_ITS ---
[address] [address] Patient Name: KIRA CASTELLON MRN: [id number] date: 1990 Sex: F Assigned Patient Location: [facility] Current Patient Location: [facility] Accession/Order Number: [id number] Exam Date: 05/09/2025 15:50 Report Date: 05/09/2025 15:51 At the request of: THOAMS FORMAN DO Procedure: US OB BPP w non-stress Biophysical profile. Reason for exam: Gestational diabetes. COMPARISON: BDP 05/02/2025. TECHNIQUE: Transabdominal imaging of the gravid uterus was obtained. FINDINGS: Panel Builder reports a BPP of 8 out of 8. BHAVANI is normal at 13.2 cm. heart rate 161 bpm. US/US OB BPP w non-stress Impression: BPP 8 out of 8. Impression dictated by: Jacinto Rivas Jr., D.O. 05/09/2025 3:51 PM Dictation Location[facility] Electronically authenticated by: [id number] Y Date: 05/09/2025 15:51
[2025-05-09 15:42] VITALS: BP 101/63; PULSE 95
== END 2025-05-09 16:05 | disposition home or self-care (01) ==
LOC: US 15:00 → FBC 15:04
PROVIDERS: Visit Provider Obstetrics & Gynecology
DX: O24.419 Gestational diabetes mellitus in pregnancy, unspecified control (principal)
CPT/HCPCS: 76818

== ENCOUNTER 2025-05-12 14:58 | Outpatient (OUT) | payer BC, SELFPAY ==
[2025-05-12 15:10] VITALS: BP 124/62; PULSE 112
== END 2025-05-12 15:34 | disposition home or self-care (01) ==
LOC: FBCO 14:59 → FBC 15:00
PROVIDERS: Visit Provider Obstetrics & Gynecology
DX: O99.283 Endocrine, nutritional and metabolic diseases complicating pregnancy, third trimester (principal); Z3A.33 33 weeks gestation of pregnancy
CPT/HCPCS: 59025

== ENCOUNTER 2025-05-16 14:55 | Outpatient (OUT) | payer BC, SELFPAY ==
--- OUTSIDE RECORDS SUMMARY | 2025-05-02 10:48 | XMS_ITS ---
Author Name Auto Generated Organization OHIP Care Team Providers Care Medical Physiologist Name Role Phone PRASANTH ROBERT Attending Unavailable THOMAS FORMAN Referring Unavailable MELONY CONNOR Primary Care UnavailPAVEL Samuels Attending Unavailable THOMAS FORMAN Referring Unavailable GEETA, MELONY Sibley Primary Care UnavailKAREEM Ramirez Attending Unavailable THOMAS FORMAN Referring Unavailable GEETA, MELONY Sibley Primary Care UnavailPAVEL Samuels Attending Unavailable MELONY CONNOR Referring Unavailabl e GEETA, MELONY M Primary Care Unavailabl e DICKSON, THOMAS Attending Unavailable DICKSON, THOMAS Attending Unavailable DICKSON, THOMAS Attending Unavailable DICKSON, THOMAS Attending Unavailable DICKSON, THOMAS Attending Unavailable DICKSON, THOMAS Attending Unavailable KESHA HALL Attending Unavailable PROBLEMS DATE TYPE CONDITION / CODE ATTENDING STATUS [facility] 03/23/2025 Unknown Gestational diab etes mellitus in , controlled by oral hypoglycemic drugs / O24.415(ICD-10) KAREEM CUMMINGS Active [facility] 03/08/2025 Unknown Med Start-GDM / UNK(Unknown) PAVEL BINGHAM Active [facility] 02/16/2025 Unknown Gestational diab etes mellitus in , diet controlled / O24.410(ICD-10) PRASANTH ROBERT [facility] 02/16/2025 Unknown Other specified counseling / Z71.89(ICD-10) PRASANTH ROBERT [facility] PROCEDURES No Procedure Records Found RESULTS US OB 14+ WEEKS ANATOMY SCAN Observed: 0 02/14/2025 12:57 PM Status: F Source: [facility] EPIC Order Comment: US OB ANATOMY SINGLE W US OB CERVICAL LENGTH Estimated Date of Delivery: 06/24/25 Gestational Age as of 12/06/2024: 11w3d EXAM: US OB 14+ WEEKS ANATOM Y SCAN HISTORY: anatomy. COMPARISON: OB ultrasound 11/26/2024. [...] the outflow tracts and kidneys. A short-term follow- up ultrasound is recommended. Interpreted by: Electronically signed by MONY ARENAS II, MD, PHD at 15-Feb-2025 11:25:23 PM [facility] ALLERGIES DATE TYPE / CODE NAME / CODE REACTION SEVERITY SOURCE Drug Class/[id number](SNO MED CT) NO KNOWN ALLERGIES [facility] ENCOUNTERS ADMIT/DISCHARGE ACCOUNT NUMBER ADMITTING ENCOUNTER CLASS LOCATION SOURCE 05/02/2025/05/02/20 [id number] Ambulatory Building:[facility] 04/19/2025/04/19/20 [id number] Ambulatory Buildin 4 [facility] 04/18/2025/04/18/20 [id number] Ambulatory Building:[facility] 04/05/2025/04/05/20 [id number] Ambulatory Building:[facility] 03/23/2025/03/23/20 [id number] Ambulatory Buildin 4 [facility] 03/14/2025/03/14/20 [id number] Ambulatory Building:[facility] 03/08/2025/03/08/20 [id number] Ambulatory Buildin 4 [facility] 02/21/2025/02/22/20 [id number] Ambulatory Building:[facility] EPIC 02/16/2025/02/17/20 [id number] Ambulatory Buildin 4 [facility] 02/14/2025/02/15/20 [id number] Ambulatory Building:[facility] EP[facility] 01/24/2025/01/25/20 [id number] Ambulatory Building:[facility] EPIC 12/28/2024/12/28/19 [id number] Ambulatory Building:[facility] EPIC 11/26/2024/11/26/19 [id number] Ambulatory Building:[facility] PAYERS ENCOUNTER GUARANTOR PAYER SUBSCRIBER SOURCE 05/02/2025 KIRA CASTELLONDOB: [place], [place] [address]Ono: (HP) Primary Insurance:[facility] licy Number: [id number] ctive Date:2021-11-10 KIRA MANZOBLEDOB: [id number] [place] [address] [facility] 04/19/2025 KIRA WILL TRIMBLEDOB: 1/[address] [address]Lrn: (HP) Primary Insurance:BLUE ACCESS (PPO)Policy Number: [id number] ctive Date:2018-06-10 KIRA WILL TRIMBLEDOB: [id number] 1/2 [place] [address]Jlp: () [facility] 04/18/2025 KIRA MANZOBLEDOB: [place], [place] [address]Ils: (HP) Primary Insurance:BCBS licy Number: [id number] ctive Date:2021-11-10 KIRA CASTELLONDOB: [id number] [place] [address] [facility] EPIC 04/05/2025 KIRA Rodriguez TRIMBLEDOB: [address] [place] [place], [place] [address]Bhe: (HP) Primary Insurance:[facility] licy Number: [id number] ctive Date:2021-11-10 KIRA MANZOBLEDOB: [id number] [place] [address] [facility] EPIC 03/23/2025 KIRA SOLIS TRIMBLEDOB: 1/[address] [place] [address]Snc: (HP) Primary Insurance:BLUE ACCESS (PPO)Policy Number: [id number] ctive Date:2018-06-10 KIRA SOLIS TRIMBLEDOB: [id number] 1/2 [place] [address]Jug: (WP) [facility] 03/14/2025 KIRA Rodriguez TRIMBLEDOB: [place], [place] [address]Hsq: (HP) Primary Insurance:[facility] licy Number: [id number] ctive Date:2021-11-10 KIRA MANZOBLEDOB: [id number] [place] [address] [facility] EPIC 03/08/2025 KIRA SOLIS TRIMBLEDOB: 1/[address] [place] [address]Uap: (HP) Primary Insurance:BLUE ACCESS (PPO)Policy Number: [id number] ctive Date:2018-06-10 KIRA MANZOBLEDOB: [id number] 1/[address] [place] [address]Tbu: (WP) [facility] 02/21/2025 KIRA Rodriguez TRIMBLEDOB: [address] [place] [facility] [place] [address]Itt: (HP) Primary Insurance:BCBSPo licy Number: [id number] ctive Date:2021-11-10 KIRA MANZOBLEDOB: [id number] [address] [facility] [address] [facility] EPIC 02/16/2025 KIRA SOLIS ANAISBLEDOB: 1/[address] [place] [address] [place] [address]Ect: (HP) Primary Insurance:BLUE ACCESS (PPO)Policy Number: [id number] ctive Date:2018-06-10 KIRA SOLIS ANAISTYREEDOB: [id number] 1/[address] [place] [facility] [address]Zza: () [facility] 02/14/2025 KIRA MANZOBLEDOB: [address] [facility] [place], [place] [address]Aal: (HP) Primary Insurance:BCBSPo licy Number: [id number] ctive Date:2021-11-10 KIRA MANZOBLEDOB: [id number] [address] [facility] [address] [facility] EPIC 01/24/2025 KIRA MANZOBLEDOB: [address] [facility] [place] [address]Eqp: (HP) Primary Insurance:BCBSPo licy Number: [id number] ctive Date:2021-11-10 KIRA MANZOBLEDOB: [id number] [address] [facility] [address] [facility] EPIC 12/28/2024 KIRA MANZOBLEDOB: [address] [facility] [address]Sno: (HP) Primary Insurance:BCBSPo licy Number: [id number] ctive Date:2021-11-10 KIRA MARTINEZ: [id number] [place] [address] [facility] 11/26/2024 KIRA MARTINEZ: [place] [address]Fek: () Primary Insurance:[facility] licy Number: [id number] ctive Date:2021-11-10 KIRA MARTINEZ: [id number] [facility] [place] [address] [facility] EPIC
--- OUTSIDE RECORDS SUMMARY | 2025-05-02 10:50 | XMS_ITS | Encounter Summary ---
Author Organization [facility] Address [address] [facility] [place] [address] Care Team Providers Care Stone Grader Name Role Phone Unavailable Primary Care Provider Unavailabl e Reason for Visit * Reason Comments Routine Visit Encounter Details Date Type Department [facility] Team ([facility] Contact Info) Description 05/02/2025 10:50 AM EDT Routine [facility] [address] [place] [phone] Kristan Fish PA [address] [place], [facility] 32 weeks gestation of ([facility]); Third trimester ([facility]) Social History Tobacco Use Types Packs/Day Years [...] Noted Benign essential hypertension in obstetric context ([facility]) 04/18/2023 Exposure to cat feces 04/18/2023 Gestational diabetes ([facility]) 04/18/2023 Nausea 04/18/2023 History of delivery 02/24/2023 Resolved Ambulatory Problems Diagnosis Date Noted No Resolved Ambulatory Problems Past Medical History: Diagnosis Date Chronic hypertension affecting ([facility]) Exposure to cat feces, sequela Former smoker Herpes exposure History of miscarriage Morbid obesity with BMI of 40.0-44.9, adult ([facility]) HISTORY PAST MEDICAL HISTORY SOCIAL HISTORY Past Medical History: Diagnosis Date Chronic hypertension affecting ([facility]) Exposure to cat feces, sequela Former smoker Gestational diabetes ([facility]) Herpes exposure History of miscarriage Morbid obesity with BMI of 40.0-44.9, adult ([facility]) Social History Tobacco Use Smoking [...] nursing note reviewed. Exam conducted with a qa developer present. Vitals: Estimated body mass index is 47.16 kg/m² as calculated from the following: Height as of 09/09/23: 5' 7 . Weight as of this encounter: 301 lb 1.9 oz. BP: 130/82 Patient's last menstrual period was 09/17/2024. ASSESSMENT & PLAN ICD-10-CM 1. 32 weeks gestation of ([facility]) Z3A.32 POCT urinalysis dipstick manually resulted 2. Third trimester ([facility]) Z34.93 POCT urinalysis dipstick manually resulted Return [...] She is sending her glucose logs to [facility] for review. She has continued with [...] OB [address] [place] [phone] Nolan Cortes, DO [address] [place] [address] documented as of this encounter Procedures Procedure Name Priority Date/Time Associated Diagnosis Comments POCT URINALYSIS DIPSTICK Routine 05/02/2025 11:00 AM EDT 32 weeks gestation of ([facility]) Third trimester ([facility]) documented in this encounter Results * (ABNORMAL) [...] Visit Diagnoses Diagnosis 32 weeks gestation of ([facility]) Third trimester ([facility]) state, incidental documented in this encounter
--- NOTE | 2025-05-16 | US_ITS ---
[address] [address] Patient Name: KIRA CASTELLON MRN: [id number] date: 1990 Sex: F Assigned Patient Location: US Current Patient Location: Accession/Order Number: [id number] Exam Date: 05/16/2025 22:56 Report Date: 05/16/2025 23:00 At the request of: THOMAS FORMAN DO Procedure: US OB BPP w non-stress Ultrasound biophysical profile Indication for exam: Gestational diabetes COMPARISON: 05/09/2025 FINDINGS: Single live intrauterine gestation with score 8/8 heart rate of 184 beats per minutes BHAVANI 17.05 cm US/US OB BPP w non-stress IMPRESSION: BP biophysical profile 8 out of 8 Impression dictated by: Mehul Brewer M.D. 05/16/2025 11:00 PM Dictation Location: [facility] Electronically authenticated by: [id number] Y Date: 05/16/2025 23:00
--- NOTE | 2025-05-16 | US_ITS ---
The [address] [address] Patient Name: KIRA CASTELLON MRN: [id number] date: 1990 Sex: F Assigned Patient Location: Current Patient Location: Accession/Order Number: [id number] Exam Date: 05/25/2025 09:01 Report Date: 05/25/2025 09:12 At the request of: THOMAS FORMAN DO Procedure: US OB growth ULTRASOUND OB GROWTH COMPARISON: 11/26/2024 CLINICAL DATA: Gestational diabetes There is a single live intrauterine gestation in cephalic presentation. There is cardiac and somatic activity with heart rate of 163 bpm. The amniotic fluid index measures 17.1 cm which is in upper normal range. The following measurements were obtained: Biparietal diameter 8.4 cm 33 weeks 6 days 32% Head circumference 30.7 cm 24 weeks 1 day 12% Abdominal circumference 34.2 cm 38 weeks 1 day >97% Femur length 6.9 cm 35 weeks 2 days 64% The composite ultrasound age based on these measurements is 35 weeks 3 days +/- 2 weeks 3 days. The estimated date of delivery is June 17, 2025. The date of delivery based on last menstrual period was June 24, 2025. The estimated weight is 6 lbs. 8 oz.+ -1 lb. 0 oz. (94%). US/US OB growth IMPRESSION: SINGLE LIVE INTRAUTERINE GESTATION WITH ULTRASOUND AGE OF 35 WEEKS 3 DAYS. LARGE FETUS FOR GESTATIONAL AGE (EFW 94%). Impression dictated by: Grace Peña M.D. 05/25/2025 9:12 AM Dictation Location: [place] [address] Electronically authenticated by: [id number] Y Date: 05/25/2025 09:12
--- OUTSIDE RECORDS SUMMARY | 2025-05-16 14:57 | XMS_ITS | Encounter Summary ---
Author Organization [facility] Address [address] [place] [address] Care Team Providers Care Research Associate Policy Name Role Phone Unavailable Primary Care Provider Unavailabl e Encounter Details Date Type Department Care Team (Late Contact Info) Description 07/04/2023 Abstract [facility] OB [address] [facility] [place] [address] Nolan Cortes, DO [address], [facility]11 Social History Tobacco Use Types Packs/Day Years [...] Description 05/17/2025 11:40 AM EDT Routine [facility] OB [address] [facility] [place] [address] Nolan Cortes, DO [address], [place] [address] documented as of this encounter Visit Diagnoses Not on filedocumented in this encounter
--- OUTSIDE RECORDS SUMMARY | 2025-05-16 14:57 | XMS_ITS | Encounter Summary ---
Author Organization [facility] Address [address] [place] [address] Care Team Providers Care Development Intern Name Role Phone Unavailable Primary Care Provider Unavailabl e Encounter Details Date Type Department Care Team (Late st Contact Info) Description 08/08/2023 Clinisync Result Encounter [facility] External Department Unsolicited Thomas Cortes[address] [place] [address] Social History Tobacco Use Types Packs/Day Years [...] Description 05/17/2025 11:40 AM EDT Routine [facility] OB [address] [place] [address] Thomas Cortes[address] [place] [address] documented as of this encounter Procedures Procedure Name Priority Date/Time Associated Diagnosis Comments US OB GROWTH 08/08/2023 3:08 PM EDT documented in this encounter Results * US OB GROWTH (08/08/2023 3:08 PM EDT) Anatomical Region Laterality Modality Other 08/08/2023 3:08 PM EDT Narrative 08/08/2023 3:08 [place] [address] Ultrasound Report Signed Patient: KIRA PURVIS MR#: [id number] : 1990 Acct:[id number] Age/Sex: 32 / F ADM Date: 08/07/23 Loc: US Attending Dr: Thomas Cortes D.O. Ordering Physician: Thoams Cortes D.O. Date of Service: 08/07/23 Procedure(s): US OB growth Accession Number(s): [id number] cc: Thomas Cortes D.O.; Physician,Non-Staff Nikky [place] [address] Patient Name: KIRA PURVIS MRN: [id number] date: 1990 Sex: F Assigned Patient Location: [facility] Current Patient Location: US Accession/Order Number: [id number] Exam Date: 08/07/2023 16:05 Report Date: 08/08/2023 [...] Signed By: 08/08/23 1511 DD/ 1508 TD/TT: Inspector Insulation: Procedure Note Radiology, Radiologist, - 08/08/2023 [place] [address] Ultrasound Report Signed Patient: KIRA PURVIS LMR#: [id number] : 1990Acct:[id number] Age/Sex: 32 / FADM Date: 08/07/23 Loc: US Attending Dr: Thomas Cortes D.O. Ordering Physician: Thomas Cortes D.O. Date of Service: 08/07/23 Procedure(s): US OB growth Accession Number(s): [id number] cc: Thomas Cortes D.O.; Physician,Non-Staff Nikky The [place] [address] Patient Name: KIRA PURVIS MRN: [facility]:[id number] date: 1990 Sex: F Assigned Patient Location: [facility] Current Patient Location: US Accession/Order Number: [id number] Exam Date: 08/07/2023 16:05 Report Date: 08/08/2023 [...] M.D. Signed By:08/08/23 1511 DD/ 1508 TD/TT: Inspector Insulation: us Thomas Sebastian DO [facility] Final Result documented in this encounter Visit Diagnoses Not on filedocumented in this encounter
--- OUTSIDE RECORDS SUMMARY | 2025-05-16 14:57 | XMS_ITS | Encounter Summary ---
Demographics Address [address] [place] [address] Mobile Phone Home Phone Email Address Email Address Preferred Language [place] Marital Status Shinto Affiliation Unknown Race White Ethnic Group Not or Lati no Author Organization [facility] tem Address [id number] [address] [place] [address] Support Name Relationship Address Phone Dariusz Purvis Emergency Contact [address] [place] [address] Sravani Villasenor Personal Relationship [address] [place] [address] Laura Cope Personal Relationship Unknown [phone] Care Team Providers Care Apartment Community Assistant Manager Name Role Phone Eli Azul MD Primary Care Provider + Encounter Details Date Type Department Care Team (Late st Contact Info) Description 02/07/2025 Orders Only Maternal- Medicine at [facility] [address] [place] [address] Ref Prov, [place] [address] Social History Tobacco Use Types Packs/Day Years [...] 10:00 AM EDT Telemedicine Maternal- Medicine at [facility] [address] [place] [address] Kenya Acosta PA-C [address] [address] documented as of this encounter Procedures Procedure [...] 1:52 PM EST) Anatomical Region Laterality Modality OB-ELECTRICAL EQUIPMENT TESTER Ultrasound us Not In System Ref Prov IMG US ORDERABLES Final R esult documented in this encounter Visit Diagnoses Not on filedocumented in this encounter Care Teams Apartment Community Assistant Manager Relationship Specialty Start Date End Date Eli Azul MD PCP - General Pediatrics 06/23/18 documented as of this encounter
--- OUTSIDE RECORDS SUMMARY | 2025-05-16 14:57 | XMS_ITS | Encounter Summary ---
Author Organization [facility] Address [address] [place] [address] Care Team Providers Care Household Appliances Service Technician Name Role Phone Unavailable Primary Care Provider Unavailabl e Encounter Details Date Type Department Care Team (Late Contact Info) Description 04/24/2023 Abstract [facility] OB [address] [place] [address] Nolan Cortes, [facility] Olivia Jeffries, [facility]11 Social History Tobacco [...] Routine [facility] BCP OB [address] [place] [address] Nolan Cortes, DO [address], [facility] documented as of this encounter Visit Diagnoses Not on filedocumented in this encounter
--- OUTSIDE RECORDS SUMMARY | 2025-05-16 14:57 | XMS_ITS | Encounter Summary ---
Author Organization [facility] Address [address] [place] [address] Care Team Providers Care Tobacco Cloth Reclaimer Name Role Phone Unavailable Primary Care Provider Unavailabl e Encounter Details Date Type Department Care Team (Late Contact Info) Description 05/20/2023 Abstract [facility] OB [address] [place] [address] Nolan Cortes, [facility] Olivia [address]ries, [facility]11 Social History Tobacco Use Types Packs/Day [...] Routine [facility] BCP OB [address] [place] [address] Nolan Cortes, DO [address], [facility]11 documented as of this encounter Visit Diagnoses Not on filedocumented in this encounter
--- OUTSIDE RECORDS SUMMARY | 2025-05-16 14:57 | XMS_ITS | Encounter Summary ---
Author Organization [facility] Address [address] [place] [address] Care Team Providers Care Cook Helper Pastry Name Role Phone Unavailable Primary Care Provider Unavailabl e Encounter Details Date Type Department Care Team (Late Contact Info) Description 12/01/2024 Abstract [facility] BCP OB [address] [place] [address] Nolan Cortes DO [address], [facility]11 Social History Tobacco Use Types Packs/Day [...]
--- OUTSIDE RECORDS SUMMARY | 2025-05-16 14:57 | XMS_ITS | Encounter Summary ---
Author Organization [facility] Address [address] [place] [address] Care Team Providers Care Fresh Meat Grader Name Role Phone Unavailable Primary Care Provider Unavailabl e Encounter Details Date Type Department Care Team (Late st Contact Info) Description 04/28/2024 Clinisync Result Encounter [facility] External Department Unsolicited Thomas Cortes, [address] [place] [address] Social History Tobacco Use Types Packs/Day Years [...] EDT Routine [facility] BCP OB [address] [facility] [place] [address] Thomas Cortes[address] [place] [address] documented as of this encounter Procedures Procedure Name Priority Date/Time Associated Diagnosis Comments US PELVIS W/ TRANSVAGINAL 04/28/2024 1:16 PM EDT documented in this encounter Results * US PELVIS W/ TRANSVAGINAL (04/28/2024 1:16 PM EDT) Anatomical Region Laterality Modality Other 04/28/2024 1:16 PM EDT Narrative 04/28/2024 1:19 PM EDT [address] [address] Ultrasound Report Signed Patient: KIRA PURVIS MR#: [id number] : 1990 Acct:[id number] Age/Sex: 33 / F ADM Date: 04/27/24 Loc: US Attending Dr: Thomas Cortes D.O. Ordering Physician: Thomas Cortes D.O. Date of Service: 04/27/24 Procedure(s): US pelvis w/ transvaginal Accession Number(s): [id number] cc: Thomas Cortes D.O.; Physician,Non-Staff Nikky [address] [address] Patient Name: KIRA PURVIS MRN: [facility]:[id number] date: 1990 Sex: F Assigned Patient Location: US Current Patient Location: Accession/Order Number: [id number] Exam Date: 04/27/2024 14:00 Report Date: 04/28/2024 [...] Signed By: 04/28/24 1319 DD/ 1316 TD/TT: Sergeant Of Corrections: Procedure Note Radiology, Radiologist, - 04/28/2024 [place] [address] Ultrasound Report Signed Patient: KIRA PURVIS LMR#: [id number] : 1990Acct:[id number] Age/Sex: 33 / FADM Date: 04/27/24 Loc: US Attending Dr: Thomas Cortes D.O. Ordering Physician: Thomas Cortes D.O. Date of Service: 04/27/24 Procedure(s): US pelvis w/ transvaginal Accession Number(s): [id number] cc: Thomas Cortes D.O.; Physician,Non-Staff Nikky The [place] [id number] Patient Name: KIRA PURVIS MRN: [facility]:[id number] date: 1990 Sex: F Assigned Patient Location: US Current Patient Location: Accession/Order Number: [id number] Exam Date: 04/27/2024 14:00 Report Date: 04/28/2024 [...] M.D. Signed By:04/28/24 1319 DD/ 1316 TD/TT: Sergeant Of Corrections: us Thomas Sebastian DO [facility] Final Result documented in this encounter Visit Diagnoses Not on filedocumented in this encounter
--- OUTSIDE RECORDS SUMMARY | 2025-05-16 14:57 | XMS_ITS | Clinical Summary ---
Author Organization [facility] Healthcare Address [address] [place] [address] Care Team Providers Care Bed Operator Name Role Phone Unavailable Primary Care Provider Unavailabl e Allergies No known active allergies Medications Alcohol Swabs (Alcohol Prep Pad) 70 % padsIndications:G estational diabetes mellitus (GDM), antepartum, gestational diabetes method of control unspecified ([facility]),Elevate d glucose tolerance test Apply 1 [...] antepartum, gestational diabetes method of control unspecified ([facility]),Elevate d glucose tolerance test USE TO [...] Benign essential hypertensio n in obstetric context ([facility]) 04/18/2023 Exposure to cat feces 04/18/2023 Gestational diabetes ([facility]) 04/18/2023 Nausea 04/18/2023 History of delivery 02/24/2023 Estimated Date of Delivery Comme nts Yes 06/24/2025 Based on last me nstrual period of 09/17/2024 Encounters Date Type Department Care Team Description 05/09/2025 Clinisync Result Encounter [facility] External Department Unsolicited Thomas Cortes, DO 05/02/2025 10:50 AM EDT Routine [facility] OB [address] [place] [address] Kristan Fish PA 32 weeks gestation of ([facility]); Third trimester ([facility]) 05/02/2025 Clinisync Result Encounter NOMS External Department Unsolicited Thomas Cortes, DO 05/02/2025 Bamboo flowsheet [facility] OB [address] [place] [address] Kristan Fish PA 04/25/2025 Clinisync Result Encounter NOMS External Department Unsolicited Thomas Cortes, DO 04/18/2025 1:00 PM EDT Routine [facility] OB [address] [place] [address] Thomas Cortes, DO 30 weeks gestation of ([facility]); Third trimester ([facility]) 04/18/2025 Clinisync Result Encounter NOMS External Department Unsolicited Thomas Cortes, DO 04/18/2025 Bamboo flowsheet [facility] OB [address] [place] [address] Thomas Cortes, DO 04/11/2025 Clinisync Result Encounter NOMS External Department Unsolicited Thomas Cortes, DO 04/11/2025 Travel 04/06/2025 Abstract [facility] B[facility] OB [address] [place] [address] Thomas Cortes, DO 04/05/2025 1:50 PM EDT Routine [place] [address] Thomas Cortes, Third trimester ([facility]); 28 weeks gestation of ([facility]); Gestational diabetes mellitus (GDM), antepartum, gestational diabetes method of control unspecified ([facility]); H/O: hypertension 04/05/2025 Bamboo flowsheet [facility] [address] [place] [address] Thomas Cortes, 03/14/2025 1:50 PM EDT Routine [facility] OB [address] [place] [address] Thomas Cortes, Second trimester ([facility]); 25 weeks gestation of ([facility]) 03/14/2025 Bamboo flowsheet [facility] OB [address] [place] [address] Thomas Cortes, 03/08/2025 Telephone [facility] OB [address] [place] [address] Suze Hendrix, ID 03/07/2025 Abstract [facility] OB [address] [place] [address] Thomas Cortes, 03/07/2025 Clinisync Result Encounter [facility]S External Department Unsolicited Thomas Cortes, 02/21/2025 1:20 PM EDT Routine [facility] [address] [place] [address] Thomas Cortes, Second trimester ([facility]); 22 weeks gestation of ([facility]) 02/21/2025 Bamboo flowsheet [facility] OB [address] [place] [address] Thomas Cortes, 02/18/2025 Refill [facility] OB [address] [place] [address] Thomas Cortes, Gestational diabetes mellitus (GDM), antepartum, gestational diabetes method of control unspecified ([facility]); Elevated glucose tolerance test 02/17/2025 Telephone [facility] OB [address] [place] [address] Suze Hendrix MA 02/14/2025 1:00 PM EDT Ancillary Procedure [facility] OB [facility] [place] [address] Screening, , for anatomic survey ([facility]) 02/14/2025 Travel from Last 3 Months Family History [...] Description 05/17/2025 11:40 AM EDT Routine [facility] OB [address] [place] [address] Thomas Cortes, DO [address] [place] [address] Procedures Procedure Name Priority Date/Time Associated Diagnosis Comments US OB BPP W NON-STRESS 05/09/2025 3:51 PM EDT US OB BPP W NON-STRESS 05/02/2025 4:30 PM EDT POCT URINALYSIS DIPSTICK Routine 05/02/2025 11:00 AM EDT 32 weeks gestation of ([facility]) Third trimester ([facility]) US OB BPP W NON-STRESS 04/25/2025 9:36 PM EDT US OB BPP W NON-STRESS 04/18/2025 4:07 PM EDT POCT URINALYSIS DIPSTICK Routine 04/18/2025 1:14 PM EDT 30 weeks gestation of ([facility]) Third trimester ([facility]) US OB BPP W NON-STRESS 04/11/2025 4:05 PM EDT POCT URINALYSIS DIPSTICK Routine 04/05/2025 2:19 PM EDT Third trimester ([facility]) US OB INCOMPLETE ANATOMY 03/07/2025 12:42 PM EDT POCT URINALYSIS DIPSTICK Routine 02/21/2025 2:08 PM EDT Second trimester ([facility]) US OB 14+ WEEKS ANATOMY SCAN Routine 02/14/2025 2:03 PM EDT Screening, , for anatomic survey ([facility]) from Last 3 Months Results * US OB BPP W NON-STRESS (05/09/2025 3:51 PM EDT) Only the most recent of5 resultswithin the time period is included. Anatomical Region Laterality Modality Other 05/09/2025 3:51 PM EDT Narrative 05/09/2025 3:54 PM EDT [address] [address] Ultrasound Report Signed Patient: CHARLENE PURVIS MR#: [id number] : 1990 Acct:[id number] Age/Sex: 34 / F ADM Date: 05/09/25 Loc: [facility] 250-[address]: Thomas Cortes D.O. Ordering Physician: Thomas Cortes D.O. Date of Service: 05/09/25 Procedure(s): US OB BPP w non-stress Accession Number(s): [id number] cc: Thomas Cortes D.O.; Physician,Non-Staff Nikky [address] [address] Patient Name: CHARLENE PURVIS MRN: [id number] date: 1990 Sex: F Assigned Patient Location: [facility] Current Patient Location: [facility] Accession/Order Number: [id number] Exam Date: 05/09/2025 15:50 Report Date: 05/09/2025 15:51 At the request of: THOMAS CORTES DO Procedure: US OB BPP w non-stress Biophysical profile. Reason for exam: Gestational diabetes. COMPARISON: BDP 05/02/2025. TECHNIQUE: Transabdominal imaging of the gravid uterus was obtained. FINDINGS: Core Blower Operator reports a BPP of 8 out of 8. BHAVANI is normal at 13.2 cm. heart rate 161 bpm. US/US OB BPP w non-stress Impression: BPP 8 out of 8. Impression dictated by: Jacinto Rivas Jr., D.O. 05/09/2025 3:51 PM Dictation Location: [place] [address] Electronically authenticated by: [id number] Y Date: 05/09/2025 15:51 Dictated By: Jacinto Rivas M.D. Signed By: 05/09/25 1554 DD/ 1551 TD/TT: Senior Investment Analyst: Procedure Note Radiology, Radiologist, MD - 05/09/2025 [place] [address] Ultrasound Report Signed Patient: CHARLENE PURVIS LMR#: [id number] : 1990Acct:[id number] Age/Sex: 34 / FADM Date: 05/09/25 Loc: [facility] 250-[address]: Thomas Cortes D.O. Ordering Physician: Thomas Cortes D.O. Date of Service: 05/09/25 Procedure(s): US OB BPP w non-stress Accession Number(s): [id number] cc: Thomas Cortes D.O.; Physician,Non-Staff Nikky The [place] [id number] Patient Name: CHARLENE PURVIS MRN: [id number] date: 1990 Sex: F Assigned Patient Location: [facility] Current Patient Location: [facility] Accession/Order Number: [id number] Exam Date: 05/09/2025 15:50 Report Date: 05/09/2025 15:51 At the request of: THOMAS CORTES DO Procedure: US OB BPP w non-stress Biophysical profile. Reason for exam: Gestational diabetes. COMPARISON: BDP 05/02/2025. TECHNIQUE: Transabdominal imaging of the gravid uterus was obtained. FINDINGS: Core Blower Operator reports a BPP of 8 out of 8. BHAVANI is normal at 13.2cm. heart rate 161 bpm. US/US OB BPP w non-stress Impression: BPP 8 out of 8. Impression dictated by: Jacinto Rivas Jr., D.O. 05/09/2025 3:51 PM Dictation Location: [place] [address] Electronically authenticated by: [id number] Y Date: 5:51 Dictated By: Jacinto Rivas M.D. Signed By:05/09/25 1554 DD/ 1551 TD/TT: Senior Investment Analyst: us Thomas Cortes DO [facility] Final [...] PM EDT Narrative 03/07/2025 12:44 PM EDT [address] [address] Ultrasound Report Signed Patient: CHARLENE PURVIS MR#: [id number] : 1990 Acct:[id number] Age/Sex: 34 / F ADM Date: 03/05/25 Loc: US Attending Dr: Thomas Cortes D.O. Ordering Physician: Thomas Cortes D.O. Date of Service: 03/05/25 Procedure(s): US OB incomplete anatomy Accession Number(s): [id number] cc: Thomas Cortes D.O.; Physician,Non-Staff M.Daisy The [address] [address] Patient Name: CHARLENE PURVIS MRN: [id number] date: 1990 Sex: F Assigned Patient Location: US Current Patient Location: Accession/Order Number: [id number] Exam Date: 03/07/2025 12:39 Report Date: 03/07/2025 [...] Jr., D.O. 03/07/2025 12:42 PM Dictation Location: [place] [address] Electronically authenticated by: [id number] Y Date: 03/07/2025 12:42 Dictated By: Jacinto Rivas M.D. Signed By: 03/07/25 1244 DD/ 1242 TD/TT: Senior Investment Analyst: Procedure Note Radiology, Radiologist, MD - 03/07/2025 [place] [address] Ultrasound Report Signed Patient: CHARLENE PURVIS LMR#: [id number] : 1990Acct:[id number] Age/Sex: 34 / FADM Date: 03/05/25 Loc: US Attending Dr: Thomas Cortes D.O. Ordering Physician: Thomas Cortes D.O. Date of Service: 03/05/25 Procedure(s): US OB incomplete anatomy Accession Number(s): [id number] cc: Thomas Cortes D.O.; Physician,Non-Staff Nikky The [place] [id number] Patient Name: CHARLENE PURVIS MRN: [id number] date: 1990 Sex: F Assigned Patient Location: US Current Patient Location: Accession/Order Number: [id number] Exam Date: 03/07/2025 12:39 Report Date: 03/07/2025 [...] Jr., DFrancisca 03/07/2025 12:42 PM Dictation Location: [place] [address] Electronically authenticated by: [id number] Y Date: 2:42 Dictated By: Jacinto Rivas M.D. Signed By:03/07/25 1244 DD/ 1242 TD/TT: Senior Investment Analyst: us Thomas Cortes DO [facility] Final [...] II, MD, PHD at 15-Feb-2025 11:25:23 PM [facility] Procedure Note Mony Arenas MD - [...] of the outflow tracts and kidneys. A xjsee-tjsmehdula-mz ultrasound is recommended. Interpreted by: Electronically signed by MONY ARENAS II, MD, PHD [id number] 11:25:23 PM [facility] us Thomas Cortes DO IMG OB US PROCEDURES Final Resul t from Last 3 Months Insurance [facility]
--- OUTSIDE RECORDS SUMMARY | 2025-05-16 14:57 | XMS_ITS | Encounter Summary ---
Author Organization [facility] Address [address] [place] [address] Care Team Providers Care School Superintendent Name Role Phone Unavailable Primary Care Provider Unavailabl e Encounter Details Date Type Department Care Team (Late Contact Info) Description 02/01/2025 Abstract [facility] B[facility] OB [address] [place] [address] Nolan Cortes DO [address], [facility]11 [...]
--- OUTSIDE RECORDS SUMMARY | 2025-05-16 14:57 | XMS_ITS | Encounter Summary ---
Author Organization [facility] Address [address] [place] [address] Care Team Providers Care Special Technical Operations Officer Name Role Phone Unavailable Primary Care Provider Unavailabl e Encounter Details Date Type Department Care Team (Late Contact Info) Description 04/22/2023 Abstract [facility] OB [address] [place] [address] Nolan Cortes, [facility] [address], [facility]11 [...] Routine N[facility] BCP OB [address] [place] [address] Nolan Cortes, DO [address], [facility]11 documented as of this encounter Visit Diagnoses Not on filedocumented in this encounter
--- OUTSIDE RECORDS SUMMARY | 2025-05-16 14:57 | XMS_ITS | Encounter Summary ---
Author Organization [facility] Address [address] [place] [address] Care Team Providers Care Reading Specialist Name Role Phone Unavailable Primary Care Provider Unavailabl e Encounter Details Date Type Department Care Team (Late Contact Info) Description 01/27/2025 Abstract [facility] B[facility] OB [address] [place] [address] Nolan Cortes DO [address], [facility]11 Social History Tobacco Use [...]
--- OUTSIDE RECORDS SUMMARY | 2025-05-16 14:57 | XMS_ITS | Encounter Summary ---
Author Organization [facility] Address [address] [place] [address] Care Team Providers Care Jute Bag Clipper Name Role Phone Unavailable Primary Care Provider Unavailabl e Encounter Details Date Type Department Care Team (Late Contact Info) Description 05/09/2025 Clinisync Result Encounter N[facility] External Department Unsolicited Thomas Cortes, DO [address], [place] [id number] Social History Tobacco Use Types Packs/Day Years [...] [facility] OB [address] [place] [address] Thomas Cortes DO [address], [place] [id number] documented as of this encounter Procedures Procedure Name Priority Date/Time Associated Diagnosis Comments US OB BPP W NON-STRESS 05/09/2025 3:51 PM EDT documented in this encounter Results * US OB BPP W NON-STRESS (05/09/2025 3:51 PM EDT) Anatomical Region Laterality Modality Other 05/09/2025 3:51 PM EDT Narrative 05/09/2025 3:54 [place] [address] Ultrasound Report Signed Patient: KIRA PURVIS MR#: [id number] : 1990 Acct:[id number] Age/Sex: 34 / F ADM Date: 05/09/25 Loc: [facility] 250-[address]: Thomas Cortes D.O. Ordering Physician: Thomas Cortes D.O. Date of Service: 05/09/25 Procedure(s): US OB BPP w non-stress Accession Number(s): [id number] cc: Thomas Cortes D.O.; Physician,Non-Staff Nikky The [place] [id number] Patient Name: KIRA PURVIS MRN: [id number] date: 1990 Sex: F Assigned Patient Location: [facility] Current Patient Location: [facility] Accession/Order Number: [id number] Exam Date: 05/09/2025 15:50 Report Date: 05/09/2025 15:51 At the request of: THOMAS CORTES DO Procedure: US OB BPP w non-stress Biophysical profile. Reason for exam: Gestational diabetes. COMPARISON: BDP 05/02/2025. TECHNIQUE: Transabdominal imaging of the gravid uterus was obtained. FINDINGS: Computer Assistant reports a BPP of 8 out of 8. BHAVANI is normal at 13.2 cm. heart rate 161 bpm. US/US OB BPP w non-stress Impression: BPP 8 out of 8. Impression dictated by: Jacinto Rivas Jr., D.O. 05/09/2025 3:51 PM Dictation Location: [place] [address] Electronically authenticated by: [id number] Y Date: 05/09/2025 15:51 Dictated By: Jacinto Rivas M.D. Signed By: 05/09/25 1554 DD/ 1551 TD/TT: Lepidopterist: Procedure Note Radiology, Radiologist, MD - 05/09/2025 [place] [address] Ultrasound Report Signed Patient: KIRA PURVIS LMR#: [id number] : 1990Acct:[id number] Age/Sex: 34 / FADM Date: 05/09/25 Loc: [facility] 250-[address]: Thomas Cortes D.O. Ordering Physician: Thomas Cortes D.O. Date of Service: 05/09/25 Procedure(s): US OB BPP w non-stress Accession Number(s): [id number] cc: Thomas Cortes D.O.; Physician,Non-Staff Nikky The [place] [address] Patient Name: KIRA PURVIS MRN: [facility]:[id number] date: 1990 Sex: F Assigned Patient Location: [facility] Current Patient Location: [facility] Accession/Order Number: [id number] Exam Date: 05/09/2025 15:50 Report Date: 05/09/2025 15:51 At the request of: THOMAS CORTES DO Procedure: US OB BPP w non-stress Biophysical profile. Reason for exam: Gestational diabetes. COMPARISON: BDP 05/02/2025. TECHNIQUE: Transabdominal imaging of the gravid uterus was obtained. FINDINGS: Computer Assistant reports a BPP of 8 out of 8. BHAVANI is normal at 13.2cm. heart rate 161 bpm. US/US OB BPP w non-stress Impression: BPP 8 out of 8. Impression dictated by: Jacinto Rivas Jr., D.O. 05/09/2025 3:51 PM Dictation Location: [place] [address] Electronically authenticated by: [id number] Y Date: 5:51 Dictated By: Jacinto Rivas M.D. Signed By:05/09/25 1554 DD/ 1551 TD/TT: Lepidopterist: us Thomas Cortes DO [facility] Final Result documented in this encounter Visit Diagnoses Not on filedocumented in this encounter
--- OUTSIDE RECORDS SUMMARY | 2025-05-16 14:57 | XMS_ITS | Encounter Summary ---
Author Organization [facility] Address [address] [place] [address] Care Team Providers Care Product Tester Fiberglass Name Role Phone Unavailable Primary Care Provider Unavailabl e Encounter Details Date Type Department Care Team (Late Contact Info) Description 08/21/2023 Abstract [facility] OB [address] [place] [address] Nolan Cortes, [facility] [address], [facility]11 Social History Tobacco Use Types Packs/Day Years [...] OB [address] [place] [address] Nolan Cortes, DO [address], [facility]11 documented as of this encounter Visit Diagnoses Not on filedocumented in this encounter
--- OUTSIDE RECORDS SUMMARY | 2025-05-16 14:57 | XMS_ITS | Encounter Summary ---
Author Organization [facility] Address [address] [place] [address] Care Team Providers Care Undercollar Maker Name Role Phone Unavailable Primary Care Provider Unavailabl e Encounter Details Date Type Department Care Team (Late Contact Info) Description 08/21/2023 Abstract [facility] OB [address] [place] [address] Nolan Cortes, [facility] [address], [facility]11 Social History Tobacco Use Types Packs/Day [...] OB [address] [place] [address] Nolan Cortes, DO [address], [facility]11 documented as of this encounter Visit Diagnoses Not on filedocumented in this encounter
--- OUTSIDE RECORDS SUMMARY | 2025-05-16 14:57 | XMS_ITS | Encounter Summary ---
Author Organization [facility] Address [address] [place] [address] Care Team Providers Care Social Organization Professor Name Role Phone Unavailable Primary Care Provider Unavailabl e Encounter Details Date Type Department Care Team (Late Contact Info) Description 08/21/2023 Abstract [facility] OB [address] [place] [address] Nolan Cortes, [facility] [address], [facility]11 Social History Tobacco Use Types Packs/Day Years [...] [address] Nolan Cortes, DO [address], [facility]11 documented as of this encounter Visit Diagnoses Not on filedocumented in this encounter
--- OUTSIDE RECORDS SUMMARY | 2025-05-16 14:57 | XMS_ITS | Encounter Summary ---
Author Organization [facility] Address [address] [place] [place] [address] Care Team Providers Care Post Acute Care Registered Nurse Name Role Phone Unavailable Primary Care Provider Unavailabl e Encounter Details Date Type Department Care Team (Late Contact Info) Description 03/26/2024 Orders Only [facility] OB [address] [facility] [place] [place] [address] Bertha Quevedo LPN [address] [place] [address] Social History Tobacco Use Types Packs/Day Years [...] AM EDT Routine [facility] OB [address] [place] [address] Nolan Cortes DO [address] [place] [address] documented as of this encounter Procedures [...]
--- OUTSIDE RECORDS SUMMARY | 2025-05-16 14:57 | XMS_ITS | Encounter Summary ---
Author Organization [facility] Address [address] [place] [address] Care Team Providers Care Zinc Miner Blasting Name Role Phone Unavailable Primary Care Provider Unavailabl e Encounter Details Date Type Department Care Team (Late Contact Info) Description 06/11/2023 Abstract [facility] [address] [place] [address] Kristan Fish PA [address] [place] [address] Dr [place], [facility]11 Social History Tobacco Use Types Packs/Day Years [...] Description 05/17/2025 11:40 AM EDT Routine NOM[facility] [address] [place] [address] Nolan Cortes DO [address] [place] [address] Dr [place], [facility]11 documented as of this encounter Visit Diagnoses Not on filedocumented in this encounter
--- OUTSIDE RECORDS SUMMARY | 2025-05-16 14:57 | XMS_ITS | Encounter Summary ---
Author Organization [facility] Address [address] [place] [address] Care Team Providers Care Commissioning Specialist Name Role Phone Unavailable Primary Care Provider Unavailabl e Encounter Details Date Type Department Care Team (Late st Contact Info) Description 04/21/2023 Abstract [facility] OB [address] [facility] [place] [address] Nolan Cortes, DO [address], [facility]11 Social History Tobacco Use Types Packs/Day [...] Description 05/17/2025 11:40 AM EDT Routine [facility] OB [address] [facility] [address] Nolan Cortes, DO [address], [place] [phone] documented as of this encounter Visit Diagnoses Not on filedocumented in this encounter
--- OUTSIDE RECORDS SUMMARY | 2025-05-16 14:57 | XMS_ITS | Encounter Summary ---
Author Organization [facility] Address [address] [place] [address] Care Team Providers Care Statement Services Representative Name Role Phone Unavailable Primary Care Provider Unavailabl e Encounter Details Date Type Department Care Team (Late Contact Info) Description 01/24/2025 Abstract [facility] OB [address] [place] [address] Nolan Cortes DO [address], [facility]11 [...]
--- OUTSIDE RECORDS SUMMARY | 2025-05-16 14:57 | XMS_ITS | Encounter Summary ---
Author Organization [facility] Address [address] [place] [address] Care Team Providers Care Behavioral Health Clinician Name Role Phone Unavailable Primary Care Provider Unavailabl e Encounter Details Date Type Department Care Team (Late Contact Info) Description 03/07/2025 Abstract [facility] OB [address] [place] [address] Nolan Cortes DO [address], [facility]11 Social History Tobacco Use Types Packs/Day [...] OB [address] [place] [address] Nolan Cortes DO [address] [place] [address] documented as of this encounter Visit Diagnoses Not on filedocumented in this encounter
--- OUTSIDE RECORDS SUMMARY | 2025-05-16 14:57 | XMS_ITS | Encounter Summary ---
Author Organization [facility] Address [address] [place] [address] Care Team Providers Care County Sheriff Name Role Phone Unavailable Primary Care Provider Unavailabl e Encounter Details Date Type Department Care Team (Late Contact Info) Description 04/25/2023 Abstract [facility] OB [address] [place] [address] Nolan Cortes, [facility] [address], [facility]11 Social [...] N[facility] OB [address] [place] [address] Nolan Cortes, DO [address], [facility]11 documented as of this encounter Visit Diagnoses Not on filedocumented in this encounter
--- OUTSIDE RECORDS SUMMARY | 2025-05-16 14:57 | XMS_ITS | Encounter Summary ---
Author Organization [facility] Address [address] [place] [address] Care Team Providers Care Coremaking Machine Operator Name Role Phone Unavailable Primary Care Provider Unavailabl e Encounter Details Date Type Department Care Team (Late st Contact Info) Description 11/26/2024 Clinisync Result Encounter N[facility]S External Department Unsolicited Thomas Cortes, DO [address] [place] [address] Social History Tobacco Use Types Packs/Day [...] [facility] BCP OB [address] [place] [phone] Thomas Cortes, DO [address] [place] [address] documented as of this encounter Procedures Procedure Name Priority Date/Time Associated Diagnosis Comments US OB TRANSVAGINAL 11/26/2024 9: 35 AM EST documented in this encounter Results * US OB TRANSVAGINAL (11/26/2024 9:35 AM EST) Anatomical Region Laterality Modality Other 11/26/2024 9:35 AM EST Narrative 11/26/2024 9:37 AM EST [address] [address] Ultrasound Report Signed Patient: KIRA PURVIS MR#: [id number] : 1990 Acct:[id number] Age/Sex: 34 / F ADM Date: 11/26/24 Loc: US Attending Dr: Thomas Cortes D.O. Ordering Physician: Thomas Cortes D.O. Date of Service: 11/26/24 Procedure(s): US OB transvaginal Accession Number(s): [id number] cc: Thomas Cortes D.O.; Physician,Non-Staff Nikky [address] [address] Patient Name: KIRA PURVIS MRN: [id number] date: 1990 Sex: F Assigned Patient Location: US Current Patient Location: US Accession/Order Number: [id number] Exam Date: 11/26/2024 08:36 Report Date: 11/26/2024 [...] Dillon M.D. Signed By: 11/26/2437 DD/ TD/TT: Burr Mill Operator: Procedure Note Radiology, Radiologist, - 11/26/2024 [place] [address] Ultrasound Report Signed Patient: KIRA PURVIS LMR#: [id number] : 1990Acct:[id number] Age/Sex: 34 / FADM Date: 11/26/24 Loc: US Attending Dr: Thomas Cortes D.O. Ordering Physician: Thomas Cortes D.O. Date of Service: 11/26/24 Procedure(s): US OB transvaginal Accession Number(s): [id number] cc: Thomas Cortes D.O.; Physician,Non-Staff Nikky The [place] [id number] Patient Name: KIRA PURVIS MRN: [id number] date: 1990 Sex: F Assigned Patient Location: US Current Patient Location: US Accession/Order Number: [id number] Exam Date: 11/26/2024 08:36 Report Date: 11/26/2024 [...] M.D. Signed By:11/26/24 0937 DD/ 0935 TD/TT: Burr Mill Operator: us [facility] DO [facility] Final Result documented in this encounter Visit Diagnoses Not on filedocumented in this encounter
--- OUTSIDE RECORDS SUMMARY | 2025-05-16 14:57 | XMS_ITS | Encounter Summary ---
Author Organization [facility] Address [address] [place] [address] Care Team Providers Care Usability Specialist Name Role Phone Unavailable Primary Care Provider Unavailabl e Encounter Details Date Type Department Care Team (Late Contact Info) Description 05/02/[address] [facility] OB [address] [facility] [place] [address] Kristan Fish PA [address] [place], [facility]11 Social History Tobacco Use Types [...] Routine [facility] OB [address] [facility] [place] [address] Nolan Cortes DO [address] [place] [place], [facility]11 documented as of this encounter Visit Diagnoses Not on filedocumented in this encounter
--- OUTSIDE RECORDS SUMMARY | 2025-05-16 14:57 | XMS_ITS | Encounter Summary ---
Author Organization [facility] Address [address] [place] [address] Care Team Providers Care Skin Drier Name Role Phone Unavailable Primary Care Provider Unavailabl e Encounter Details Date Type Department Care Team (Late Contact Info) Description 04/06/2025 Abstract [facility] BCP OB [address] [place] [address] Nolan Cortes DO [address] [place], [facility]11 Social History [...]
--- OUTSIDE RECORDS SUMMARY | 2025-05-16 14:57 | XMS_ITS | Encounter Summary ---
Author Organization [facility] Address [address] [place] [address] Care Team Providers Care Mail Processing Machine Operator Name Role Phone Unavailable Primary Care Provider Unavailabl e Encounter Details Date Type Department Care Team (Late Contact Info) Description 12/02/2024 Abstract [facility] BCP OB [address] [place] [address] Nolan Cortes DO [address] [place], [facility]11 Social History Tobacco Use Types Packs/Day [...] Routine [facility] BCP OB [address] [place] [address] Nolan Cortes DO [address] [place] [address] documented as of this encounter Visit Diagnoses Not on filedocumented in this encounter
--- OUTSIDE RECORDS SUMMARY | 2025-05-16 14:57 | XMS_ITS | Encounter Summary ---
Author Organization [facility] Address [address] [place] [address] Care Team Providers Care Consulting Utility Forester Name Role Phone Unavailable Primary Care Provider Unavailabl e Encounter Details Date Type Department Care Team ([facility] Contact Info) Description 07/18/2023 Clinisync Result Encounter NOMS External Department Unsolicited Thomas Cortes, DO [facility] [address] [place], [place] [id number] Social History Tobacco Use Types Packs/Day Years [...] Upcoming Encounters Date Type Department Care Team ([facility] Contact Info) Description 05/17/2025 11:40 AM EDT Routine [facility] BCP OB [address] [place] [phone] Thomas Cortes DO [facility] [place] [address] documented as of this encounter Procedures Procedure Name Priority Date/Time Associated Diagnosis Comments US OB BPP W NON-STRESS 07/18/2023 3:07 PM EDT documented in this encounter Results * US OB BPP W NON-STRESS (07/18/2023 3:07 PM EDT) Anatomical Region Laterality Modality Other 07/18/2023 3:07 PM EDT Narrative 07/18/2023 3:07 [place] [address] Ultrasound Report Signed Patient: KIRA PURVIS MR#: [id number] : 1990 Acct:[id number] Age/Sex: 32 / F ADM Date: 07/17/23 Loc: US Attending Dr: Thomas Cortes D.O. Ordering Physician: Thomas Cortes D.O. Date of Service: 07/17/23 Procedure(s): US OB BPP w non-stress Accession Number(s): [id number] cc: Thomas Cortes D.O.; Physician,Non-Staff [place] [address] Patient Name: KIRA PURVIS MRN: [facility]:[id number] date: 1990 Sex: F Assigned Patient Location: [facility] Current Patient Location: Accession/Order Number: [id number] Exam Date: 07/17/2023 16:00 Report Date: 07/18/2023 [...] M.D. Signed By: 07/18/231509 DD/ 06 TD/TT: University Controller: Procedure Note Radiology, Radiologist, - 08/01/2023 [place] [address] Ultrasound Report Signed Patient: KIRA PURVIS LMR#: [id number] : 1990Acct:[id number] Age/Sex: 32 / FADM Date: 07/17/23 Loc: US Attending Dr: Thomas Cortes D.O. Ordering Physician: Thomas Cortes D.O. Date of Service: 07/17/23 Procedure(s): US OB BPP w non-stress Accession Number(s): [id number] cc: Thomas Cortes D.O.; Physician,Non-Staff Nikky [place] [address] Patient Name: KIRA PURVIS MRN: [id number] date: 1990 Sex: F Assigned Patient Location: [facility] Current Patient Location: Accession/Order Number: [id number] Exam Date: 07/17/2023 16:00 Report Date: 07/18/2023 [...] Dillon M.D. Signed By:07/18/231509 DD/ 06 TD/TT: University Controller: us Thomas Cortes DO [facility] Final Result documented in this encounter Visit Diagnoses Not on filedocumented in this encounter
--- OUTSIDE RECORDS SUMMARY | 2025-05-16 14:58 | XMS_ITS | Encounter Summary ---
Author Organization [facility] Address [address] [place] [address] Care Team Providers Care Business Control Manager Name Role Phone Unavailable Primary Care Provider Unavailabl e Encounter Details Date Type Department Care Team (Late st Contact Info) Description 04/14/2023 Abstract [facility] OB [address] [facility] [place] [address] Nolan Cortes, DO [address] [place], [facility]11 Social History Tobacco Use Types Packs/Day [...] Description 05/17/2025 11:40 AM EDT Routine [facility] OB [address] [facility] [place] [address] Nolan Cortes, DO [address] [place], [place] [address] documented as of this encounter Visit Diagnoses Not on filedocumented in this encounter
--- OUTSIDE RECORDS SUMMARY | 2025-05-16 14:58 | XMS_ITS | Clinical Summary ---
Demographics Address [address] [place] [address] Mobile Phone Home Phone Email Address Email Address Preferred Language Icelandic Marital Status Hoahaoism Affiliation Unknown Race White Ethnic Group Not or Lati no Author Organization [employer] tem Address [id number] [address] [place] [address] Support Name Relationship Address Phone Dariusz Purvis Emergency Contact [address] [place] [address] Sravani Villasenor Personal Relationship [address] [place] [address] Laura Cope Personal Relationship Unknown [phone] Care Team Providers Care General Agent Name Role Phone Eli Azul MD Primary [...] Team Description 04/29/2025 Telephone Maternal- Medicine at [facility] [address] [place] [address] Rufina Hurd CMA 04/19/2025 10:30 AM EDT Telemedicine Maternal- Medicine at [facility] [address] [place] [address] Kenya Acosta, UDAY Gestational diabetes mellitus (GDM) in second trimester controlled on oral hypoglycemic drug (Primary Dx) 04/19/2025 Travel 04/19/2025 Telephone Maternal- Medicine at [facility] [address] [place] [address] Rufina Hurd CMA 04/01/2025 Telephone Maternal- Medicine at [facility] [address] [place] [address] Violet Lopez RN 03/23/2025 10:30 AM EDT Telemedicine Maternal- Medicine at [facility] [address] [place] [address] Iman Hall, DRY MILL WORKER-PREMA Gestational diabetes mellitus (GDM) in second trimester controlled on oral hypoglycemic drug 03/23/2025 Travel 03/23/2025 Telephone Maternal- Medicine at [facility] [address] [place] [address] Rufina Hurd CMA 03/16/2025 Telephone Maternal- Medicine at [facility] [address] [place] [address] Violet Lopez, RN 03/15/2025 Orders Only Maternal- Medicine at [facility] [address] [place] [address] Rufina Hurd, TAINA 03/08/2025 1:00 PM EDT Office Visit Maternal- Medicine at [facility] [address] [place] [address] Kenya Acosta PA-C Gestational diabetes mellitus (GDM) in second trimester controlled on oral hypoglycemic drug (Primary Dx) 03/08/2025 Travel 03/08/2025 Telephone Maternal- Medicine at [facility] [address] [place] [address] Rufina Hurd, GLUED WOOD TESTER 03/04/2025 Telephone Maternal- Medicine at [facility] [address] [place] [address] Shima Renee RN 03/02/2025 Telephone Maternal- Medicine at [facility] [address] [place] [address] Shima Renee, URIEL 02/24/2025 Telephone Maternal- Medicine at [facility] [address] [place] [address] Jewels Pedersen LD 02/16/2025 9:30 AM EDT Support Visit Maternal- Medicine at [facility] [address] [place] [address] Violet Lopez, RN Alexandria Ira[address] RD Diet controlled gestational diabetes mellitus (GDM) in second trimester (Primary Dx); Encounter for diabetes education 02/16/2025 Travel from Last 3 Months Immunizations Immunization Administration [...] 10:00 AM EDT Telemedicine Maternal- Medicine at [facility] [address] [place] [address] Kenya Acosta PA-C [address] [facility] [address] [place] [address] Health Maintenance Due Date Last Done Comments [...] ORDERABL ES Final Result Performing Organization Address City/[facility] Co de Phone Number MANUALLY TRANSCRIBED RESULTS * Glucose random or fasting- POCT (02/16/2025) External Glucose Fasting Or Random (Fbs) 110 MANUALLY TRANSCRIBED RESULTS 02/16/2025 Iman Hall DRY MILL WORKER-AUTOMOBILE TIRE BUILDER LAB BLOOD ORDERABLES Fi nal Result MANUALLY TRANSCRIBED RESULTS from Last 3 Months Insurance * Guarantor: Charlene Purvis Account Type Relation to Patient Date of Phone Billing Address Personal/Family Self 1990 [address] [facility] [address] [place] [address] ANTHEM Care Teams General Agent Relationship Specialty Start Date End Date Eli Azul MD PCP - General Pediatrics 06/23/18
--- OUTSIDE RECORDS SUMMARY | 2025-05-16 14:58 | XMS_ITS | Encounter Summary ---
Demographics Address [address] [place] [address] Mobile Phone Home Phone Email Address Email Address Preferred Language Stateless Marital Status Amish Affiliation Unknown Race White Ethnic Group Not or Lati no Author Organization [facility] [employer] tem Address [id number] [address] [place] [address] Support Name Relationship Address Phone Dariusz Purvis Emergency Contact [address] [place] [address] Sravani Villasenor Personal Relationship [address] [place] [address] Laura Cope Personal Relationship Unknown [phone] Care Team Providers Care Gymnastics Coach Name Role Phone Eli Azul MD Primary Care Provider + Encounter Details Date Type Department Care Team (Late st Contact Info) Description 03/15/2025 Orders Only Maternal- Medicine at [facility] [address] [place] [address] Rufina Hurd CMA Social History Tobacco Use [...] 10:00 AM EDT Telemedicine Maternal- Medicine at [facility] [address] [place] [address] Kenya Acosta, PASalomeC [address] [address] documented as of this encounter Visit Diagnoses Not on filedocumented in this encounter Care Teams Gymnastics Coach Relationship Specialty Start Date End Date Eli Azul MD PCP - General Pediatrics 06/23/18 documented as of this encounter
--- OUTSIDE RECORDS SUMMARY | 2025-05-16 14:58 | XMS_ITS | Encounter Summary ---
Author Organization [facility] Address [address] [place] [address] Care Team Providers Care Talent Development Consultant Name Role Phone Unavailable Primary Care Provider Unavailabl e Encounter Details Date Type Department Care Team (Late st Contact Info) Description 04/14/2023 Abstract [facility] OB [address] [facility] [place] [address] Nolan Cortes, DO [address] [place], [facility]11 Social History Tobacco Use Types Packs/Day [...] Description 05/17/2025 11:40 AM EDT Routine [facility] OB [address] [facility] [place] [address] Nolan Cortes, DO [address] [place], [place] [address] documented as of this encounter Visit Diagnoses Not on filedocumented in this encounter
--- OUTSIDE RECORDS SUMMARY | 2025-05-16 14:58 | XMS_ITS | Encounter Summary ---
Author Organization [facility] Address [address] [place] [address] Care Team Providers Care Supervisor Drying And Winding Name Role Phone Unavailable Primary Care Provider Unavailabl e Encounter Details Date Type Department Care Team (Late st Contact Info) Description 04/18/2023 Abstract [facility] OB [address] [facility] [place] [address] Nolan Cortes, DO [address] [place], [facility] [...] Description 05/17/2025 11:40 AM EDT Routine [facility] OB [address] [facility] [place] [address] Nolan Cortes, DO [address] [place], [place] [address] documented as of this encounter Visit Diagnoses Not on filedocumented in this encounter
--- OUTSIDE RECORDS SUMMARY | 2025-05-16 14:58 | XMS_ITS | Encounter Summary ---
Author Organization [facility] Address [address] [place] [address] Care Team Providers Care Crusher Tender Name Role Phone Unavailable Primary Care Provider Unavailabl e Encounter Details Date Type Department Care Team (Late Contact Info) Description 05/02/2025 Clinisync Result Encounter NOMS External Department Unsolicited Thomas Cortes, DO [address] [place], [place] [address] Social History Tobacco Use Types Packs/Day Years [...] [facility] BCP OB [address] [place] [address] Thomas Cortes DO [address] [place], [place] [address] documented as of this encounter Procedures Procedure Name Priority Date/Time Associated Diagnosis Comments US OB BPP W NON-STRESS 05/02/2025 4:30 PM EDT documented in this encounter Results * US OB BPP W NON-STRESS (05/02/2025 4:30 PM EDT) Anatomical Region Laterality Modality Other 05/02/2025 4:30 PM EDT Narrative 05/02/2025 4:32 PM EDT [address] [address] Ultrasound Report Signed Patient: KIRA PURVIS MR#: [id number] : 1990 Acct:[id number] Age/Sex: 34 / F ADM Date: 05/02/25 Loc: US Attending Dr: Thomas Cortes D.O. Ordering Physician: Thomas Cortes D.O. Date of Service: 05/02/25 Procedure(s): US OB BPP w non-stress Accession Number(s): [id number] cc: Thomas Cortes D.O.; Physician,Non-Staff Nikky [address] [address] Patient Name: KIRA PURVIS MRN: [id number] date: 1990 Sex: F Assigned Patient Location: [facility] Current Patient Location: Accession/Order Number: [id number] Exam Date: 05/02/2025 16:28 Report Date: 05/02/2025 [...] Maxwell M.D. 05/02/2025 4:30 PM Dictation Location: [place] [address] Electronically authenticated by: [id number] Y Date: 05/02/2025 16:30 Dictated By: Marquis Maxwell M.D. Signed By: 05/02/25 163 DD/ 163 TD/TT: Pharmacy Picking Tech: Procedure Note Radiology, Radiologist, - 05/02/2025 [place] [address] Ultrasound Report Signed Patient: KIRA PURVIS LMR#: [id number] : 1990Acct:[id number] Age/Sex: 34 / FADM Date: 05/02/25 Loc: US Attending Dr: Thomas Cortes D.O. Ordering Physician: Thomas Cortes D.O. Date of Service: 05/02/25 Procedure(s): US OB BPP w non-stress Accession Number(s): [id number] cc: Thomas Cortes D.O.; Physician,Non-Staff Nikky The [address] [address] Patient Name: KIRA PURVIS MRN: [facility]:[id number] date: 1990 Sex: F Assigned Patient Location: [facility] Current Patient Location: Accession/Order Number: [id number] Exam Date: 05/02/2025 16:28 Report Date: 05/02/2025 [...] Maxwell M.D. 05/02/2025 4:30 PM Dictation Location: [place] [address] Electronically authenticated by: [id number] Y Date: 6:30 Dictated By: Marquis Maxwell M.D. Signed By:05/02/25 1632 DD/ 29 TD/TT: Pharmacy Picking Tech: us Thomas Cortes DO [facility] Final Result documented in this encounter Visit Diagnoses Not on filedocumented in this encounter
[2025-05-16 15:32] VITALS: BP 125/68; PULSE 85
== END 2025-05-16 16:15 | disposition home or self-care (01) ==
LOC: US 14:55 → FBC 14:58
PROVIDERS: Visit Provider Obstetrics & Gynecology
DX: O24.419 Gestational diabetes mellitus in pregnancy, unspecified control (principal)
CPT/HCPCS: 76816; 76818

== ENCOUNTER 2025-05-19 13:25 | Outpatient (OUT) | payer BC, SELFPAY ==
--- OUTSIDE RECORDS SUMMARY | 2025-05-17 11:40 | XMS_ITS | Encounter Summary ---
Author Organization [facility] Address [address] [place] [address] Care Team Providers Care First Beater Name Role Phone Unavailable Primary Care Provider Unavailabl e Reason for Visit * Reason Comments Routine Visit Encounter Details Date Type Department Care Team ([facility] Contact Info) Description 05/17/2025 11:40 AM EDT Routine [facility] [address] [facility] [place] [phone] Nolan Cortes, DO [address] [facility] [address] [place], [place] [id number] Third trimester ([facility]); 34 weeks gestation of ([facility]); Gestational diabetes mellitus (GDM), antepartum, gestational diabetes method of control unspecified ([facility]) Social History Tobacco Use Types Packs/Day Years [...] this encounter Progress Notes * Grace Arita, MIDDLE SCHOOL VOLLEYBALL COACH - 05/17/2025 11:40 AM EDT Reason for [...] Noted Benign essential hypertension in obstetric context ([facility]) 04/18/2023 Exposure to cat feces 04/18/2023 Gestational diabetes ([facility]) 04/18/2023 Nausea 04/18/2023 History of delivery 02/24/2023 Resolved Ambulatory Problems Diagnosis Date Noted No Resolved Ambulatory Problems Past Medical History: Diagnosis Date Chronic hypertension affecting ([facility]) Exposure to cat feces, sequela Former smoker Herpes exposure History of miscarriage Morbid obesity with BMI of 40.0-44.9, adult ([facility]) HISTORY PAST MEDICAL HISTORY SOCIAL HISTORY Past Medical History: Diagnosis Date Chronic hypertension affecting ([facility]) Exposure to cat feces, sequela Former smoker Gestational diabetes ([facility]) Herpes exposure History of miscarriage Morbid obesity with BMI of 40.0-44.9, adult ([facility]) Social History Tobacco [...] nursing note reviewed. Exam conducted with a director of health education present. Vitals: Estimated body mass index is 47.58 kg/m?? as calculated from the following: Height as of 09/09/23: 5' 7 . Weight as of this encounter: 303 lb 12.8 oz. BP: 126/78 Patient's last menstrual period was 09/17/2024. ASSESSMENT & PLAN ICD-10-CM 1. Third trimester ([facility]) Z34.93 2. 34 weeks gestation of ([facility]) Z3A.34 3. Gestational diabetes mellitus (GDM), antepartum, gestational diabetes method of control unspecified ([facility]) O24.419 Return OB: Patient presents today for [...] Care Team (Late st Contact Info) Description 05/31/2025 10:50 AM EDT Routine [facility] OB [address] [facility] [place] [address] Kristan Fish PA [address] [facility] [place] [address] documented as of this encounter Visit Diagnoses Diagnosis Third trimester ([facility] state, incidental 34 weeks gestation of ([facility]) Gestational diabetes mellitus (GDM), antepartum, gestational diabetes method of control unspecified ([facility]) documented in this encounter
--- OUTSIDE RECORDS SUMMARY | 2025-05-19 13:30 | XMS_ITS | Encounter Summary ---
Author Organization [facility] Address [address] [place] [address] Care Team Providers Care Gas Plant Specialist Name Role Phone Unavailable Primary Care Provider Unavailabl e Encounter Details Date Type Department Care Team (Late st Contact Info) Description 11/26/2024 Clinisync Result Encounter [facility] External Department Unsolicited Thomas Cortes DO [address] [place] [address] Social History Tobacco Use Types Packs/Day [...] AM EDT Routine [facility] OB [address] [facility] [place] [address] Kristan Fish PA [address] [facility] [place] [address] [phone] (work) documented as of this encounter Procedures Procedure Name Priority Date/Time Associated Diagnosis Comments US OB TRANSVAGINAL 11/26/2024 9: 35 AM EST documented in this encounter Results * US OB TRANSVAGINAL (11/26/2024 9:35 AM EST) Anatomical Region Laterality Modality Other 11/26/2024 9:35 AM EST Narrative 11/26/2024 9:37 AM EST [address] [address] Ultrasound Report Signed Patient: KIRA PURVIS MR#: [id number] : 1990 Acct:[id number] Age/Sex: 34 / F ADM Date: 11/26/24 Loc: US Attending Dr: Thomas Cortes D.O. Ordering Physician: Thomas Cortes D.O. Date of Service: 11/26/24 Procedure(s): US OB transvaginal Accession Number(s): [id number] cc: Thomas Cortes D.O.; Physician,Non-Staff Nikky [address] [address] Patient Name: KIRA PURVIS MRN: [id number] date: 1990 Sex: F Assigned Patient Location: US Current Patient Location: US Accession/Order Number: [id number] Exam Date: 11/26/2024 08:36 Report Date: 11/26/2024 [...] M.D. Signed By: 11/26/24 0937 DD/ TD/TT: Polysom Tech: Procedure Note Radiology, Radiologist, MD - 11/26/2024 [place] [address] Ultrasound Report Signed Patient: KIRA PURVIS LMR#: [id number] : 1990Acct:[id number] Age/Sex: 34 / FADM Date: 11/26/24 Loc: US Attending Dr: Thomas Cortes D.O. Ordering Physician: Thomas Cortes D.O. Date of Service: 11/26/24 Procedure(s): US OB transvaginal Accession Number(s): [id number] cc: Thomas Cortes D.O.; Physician,Non-Staff Nikky The [address] [address] Patient Name: KIRA PURVIS MRN: [id number] date: 1990 Sex: F Assigned Patient Location: US Current Patient Location: US Accession/Order Number: [id number] Exam Date: 11/26/2024 08:36 Report Date: 11/26/2024 [...] M.D. Signed By:11/26/24 0937 DD/ 0935 TD/TT: Polysom Tech: us [facility] DO [facility] Final Result documented in this encounter Visit Diagnoses Not on filedocumented in this encounter
--- OUTSIDE RECORDS SUMMARY | 2025-05-19 13:30 | XMS_ITS | Encounter Summary ---
Author Organization [facility] Address [address] [place] [address] Care Team Providers Care Step Down Specialist Name Role Phone Unavailable Primary Care Provider Unavailabl e Encounter Details Date Type Department Care Team (Late Contact Info) Description 07/04/2023 Abstract [facility] OB [address] [facility] [address] Nolan Cortes DO [address] [facility] [address] [place], [facility]11 Social History Tobacco Use Types Packs/Day [...] Description 05/31/2025 10:50 AM EDT Routine [facility] OB [address] [facility] [address] Kristan Fish PA [address] [facility] [address] [place], [facility]11 documented as of this encounter Visit Diagnoses Not on filedocumented in this encounter
--- OUTSIDE RECORDS SUMMARY | 2025-05-19 13:30 | XMS_ITS | Encounter Summary ---
Author Organization [facility] Address [address] [place] [address] Care Team Providers Care Watermelon Inspector Name Role Phone Unavailable Primary Care Provider Unavailabl e Encounter Details Date Type Department Care Team (Late Contact Info) Description 12/01/2024 Abstract [facility] OB [address] [place] [address] Nolan Cortes DO [address] [place], [facility]11 Social History Tobacco Use Types Packs/Day Years [...] Department Care Team (Late Contact Info) Description 05/31/2025 10:50 AM EDT Routine [facility] OB [address] [facility] [place] [address] Kristan Fish PA [address] [place] [address] documented as of this encounter Visit Diagnoses Not on filedocumented in this encounter
--- OUTSIDE RECORDS SUMMARY | 2025-05-19 13:30 | XMS_ITS | Encounter Summary ---
Author Organization [facility] Address [address] [place] [address] Care Team Providers Care Cytogenetics Technologist Name Role Phone Unavailable Primary Care Provider Unavailabl e Encounter Details Date Type Department Care Team (Late Contact Info) Description 12/02/2024 Abstract [facility] OB [address] [place] [address] Nolan Cortes DO [address] [place], [facility]11 Social History Tobacco Use Types Packs/Day [...] AM EDT Routine [facility] OB [address] [facility] [place] [place] [address] Kristan Fish PA [address] [place] [address] documented as of this encounter Visit Diagnoses Not on filedocumented in this encounter
--- OUTSIDE RECORDS SUMMARY | 2025-05-19 13:30 | XMS_ITS | Encounter Summary ---
Author Organization [facility] Address [address] [place] [address] Care Team Providers Care Aging Room Hand Name Role Phone Unavailable Primary Care Provider Unavailabl e Encounter Details Date Type Department Care Team (Late Contact Info) Description 05/16/2025 Clinisync Result Encounter NOMS External Department Unsolicited Thomas Cortes DO [address] [facility] [address] [place], [place] [address] Social History Tobacco Use Types Packs/Day Years [...] AM EDT Routine [facility] OB [address] [facility] [place] [address] Kristan Fish PA [address] [facility] [address] [place], [facility]11 documented as of this encounter Procedures Procedure Name Priority Date/Time Associated Diagnosis Comments US OB BPP W NON-STRESS 05/16/2025 11:00 PM EDT documented in this encounter Results * US OB BPP W NON-STRESS (05/16/2025 11:00 PM EDT) Anatomical Region Laterality Modality Other 05/16/2025 11:0 0 PM EDT Narrative 05/16/2025 11:03 PM EDT [address] [address] Ultrasound Report Signed Patient: KIRA PURVIS MR#: [id number] : 1990 Acct:[id number] Age/Sex: 34 / F ADM Date: 05/16/25 Loc: US Attending Dr: Thomas Cortes D.O. Ordering Physician: Thomas Cortes D.O. Date of Service: 05/16/25 Procedure(s): US OB BPP w non-stress Accession Number(s): [id number] cc: Thomas Cortes D.O.; Physician,Non-Staff Nikky The [place] [id number] Patient Name: KIRA PURVIS MRN: [id number] date: 1990 Sex: F Assigned Patient Location: US Current Patient Location: Accession/Order Number: [id number] Exam Date: 05/16/2025 22:56 Report Date: 05/16/2025 23:00 At the request of: THOMAS CORTES DO Procedure: US OB BPP w non-stress Ultrasound biophysical profile Indication for exam: Gestational diabetes COMPARISON: 05/09/2025 FINDINGS: Single live intrauterine gestation with score 8/8 heart rate of 184 beats per minutes BHAVANI 17.05 cm US/US OB BPP w non-stress IMPRESSION: BP biophysical profile 8 out of 8 Impression dictated by: Mehul Brewer M.D. 05/16/2025 11:00 PM Dictation Location: [place] [address] Electronically authenticated by: [id number] Y Date: 05/16/2025 23:00 Dictated By: Mehul Brewer M.D. Signed By: 05/16/252302 DD/ 99 TD/TT: Career Development Specialist: Procedure Note Radiology, Radiologist, - 05/16/2025 [place] [address] Ultrasound Report Signed Patient: KIRA PURVIS LMR#: [id number] : 1990Acct:[id number] Age/Sex: 34 / FADM Date: 05/16/25 Loc: US Attending Dr: Thomas Cortes D.O. Ordering Physician: Thomas Cortes D.O. Date of Service: 05/16/25 Procedure(s): US OB BPP w non-stress Accession Number(s): [id number] cc: Thomas Cortes D.O.; Physician,Non-Staff Nikky The [place] [address] Patient Name: KIRA PURVIS MRN: [id number] date: 1990 Sex: F Assigned Patient Location: US Current Patient Location: Accession/Order Number: [id number] Exam Date: 05/16/2025 22:56 Report Date: 05/16/2025 23:00 At the request of: THOMAS CORTES DO Procedure: US OB BPP w non-stress Ultrasound biophysical profile Indication for exam: Gestational diabetes COMPARISON: 05/09/2025 FINDINGS: Single live intrauterine gestation with score 8/8 heartrate of 184 beats per minutes BHAVNAI 17.05 cm US/US OB BPP w non-stress IMPRESSION: BP biophysical profile 8 out of 8 Impression dictated by: Mehul Brewer M.D. 05/16/2025 11:00 PM Dictation Location: [place] [address] Electronically authenticated by: [id number] Y Date: 3:00 Dictated By: Mehul Brewer M.D. Signed By:05/16/252302 DD/ 99 TD/TT: Career Development Specialist: us Thomas Cortes DO [facility] Final Result documented in this encounter Visit Diagnoses Not on filedocumented in this encounter
--- OUTSIDE RECORDS SUMMARY | 2025-05-19 13:30 | XMS_ITS | Encounter Summary ---
Author Organization [facility] Address [address] [place] [address] Care Team Providers Care Operating Room Rn Name Role Phone Unavailable Primary Care Provider Unavailabl e Encounter Details Date Type Department Care Team (Late Contact Info) Description 08/21/2023 Abstract [facility] OB [address] [facility] [place] [address] Nolan Cortes [address] [place], [facility]11 Social History Tobacco Use Types Packs/Day [...] AM EDT Routine [facility] BCP OB [address] [facility] [place] [address] Kristan Fish PA [address] [place] [address] documented as of this encounter Visit Diagnoses Not on filedocumented in this encounter
--- OUTSIDE RECORDS SUMMARY | 2025-05-19 13:30 | XMS_ITS | Encounter Summary ---
Author Organization [facility] Address [address] [place] [address] Care Team Providers Care Supervisor Word Processing Name Role Phone Unavailable Primary Care Provider Unavailabl e Encounter Details Date Type Department Care Team (Late Contact Info) Description 08/21/2023 Abstract [facility] OB [address] [facility] [place] [address] Nolan Cortes [address] [place], [facility]11 Social History Tobacco Use [...] OB [address] [facility] [place] [address] Kristan Fish PA [address] [place] [address] documented as of this encounter Visit Diagnoses Not on filedocumented in this encounter
--- OUTSIDE RECORDS SUMMARY | 2025-05-19 13:30 | XMS_ITS | Encounter Summary ---
Author Organization [facility] Address [address] [place] [address] Care Team Providers Care Acid Conditioning Worker Name Role Phone Unavailable Primary Care Provider Unavailabl e Encounter Details Date Type Department Care Team (Late Contact Info) Description 08/21/2023 Abstract [facility] OB [address] [place] [address] Nolan Cortes [address] [place], [facility]11 Social History Tobacco [...] AM EDT Routine [facility] B[facility] OB [address] [place] [address] Kristan Fish PA [address] [place] [address] documented as of this encounter Visit Diagnoses Not on filedocumented in this encounter
--- OUTSIDE RECORDS SUMMARY | 2025-05-19 13:30 | XMS_ITS | Encounter Summary ---
Author Organization [facility] Address [address] [place] [address] Care Team Providers Care Environmental Health Specialist Name Role Phone Unavailable Primary Care Provider Unavailabl e Encounter Details Date Type Department Care Team (Late Contact Info) Description 01/24/2025 Abstract [facility] OB [address] [place] [address] Nolan Cortes [address] [place], [facility]11 Social History Tobacco Use [...] AM EDT Routine [facility] B[facility] OB 102 [place] [address] Kristan Fish PA [address] [place] [address] documented as of this encounter Visit Diagnoses Not on filedocumented in this encounter
--- OUTSIDE RECORDS SUMMARY | 2025-05-19 13:31 | XMS_ITS | Encounter Summary ---
Author Organization [facility] Address [address] [place] [address] Care Team Providers Care Barrel Driller Name Role Phone Unavailable Primary Care Provider Unavailabl e Encounter Details Date Type Department Care Team (Late Contact Info) Description 05/20/2023 Abstract [facility] OB [address] [facility] [place] [address] Nolan Cortes [address] [place], [facility]11 Social History Tobacco Use Types Packs/Day [...] [address] [facility] [place] [address] Kristan Fish PA [address] [place], [facility]11 documented as of this encounter Visit Diagnoses Not on filedocumented in this encounter
--- OUTSIDE RECORDS SUMMARY | 2025-05-19 13:31 | XMS_ITS | Encounter Summary ---
Author Organization [facility] Address [address] [place] [address] Care Team Providers Care Sales Designer Name Role Phone Unavailable Primary Care Provider Unavailabl e Encounter Details Date Type Department Care Team (Late Contact Info) Description 06/11/2023 Abstract [facility] OB [address] [place] [address] [place] [address] Kristan Fish, PA [address] [place] [address] Dr [place], [facility]11 Social History Tobacco Use Types [...] Description 05/31/2025 10:50 AM EDT Routine [facility] OB [address] [place] [address] [place] [address] Kristan Fish, PA [address] [place] [address] [place] [address] documented as of this encounter Visit Diagnoses Not on filedocumented in this encounter
--- OUTSIDE RECORDS SUMMARY | 2025-05-19 13:31 | XMS_ITS | Encounter Summary ---
Author Organization [facility] Address [address] [place] [address] Care Team Providers Care Computer Engineering Technician Name Role Phone Unavailable Primary Care Provider Unavailabl e Encounter Details Date Type Department Care Team (Late Contact Info) Description 05/17/2025 Bamboo flowsheet [facility] OB [address] [facility] [place] [address] Nolan Cortes DO [address] [facility] [address] [place], [facility]11 [...] [address] [facility] [place] [address] Kristan Fish PA [address] [place], [facility]11 documented as of this encounter Visit Diagnoses Not on filedocumented in this encounter
--- OUTSIDE RECORDS SUMMARY | 2025-05-19 13:31 | XMS_ITS | Encounter Summary ---
Author Organization [facility] Address [address] [place] [address] Care Team Providers Care Advanced Clinical Specialist Name Role Phone Unavailable Primary Care Provider Unavailabl e Encounter Details Date Type Department Care Team (Late st Contact Info) Description 04/14/[address] [facility] OB [address] [facility] [place] [phone] Nolan Cortes DO [address] [facility] [address] [place], [facility]11 Social History Tobacco Use Types Packs/Day [...] Description 05/31/2025 10:50 AM EDT [facility] OB [address] [facility] [place] [address] Kristan Fish PA [address] [facility] [address] [place], [place] [id number] documented as of this encounter Visit Diagnoses Not on filedocumented in this encounter
--- OUTSIDE RECORDS SUMMARY | 2025-05-19 13:31 | XMS_ITS | Encounter Summary ---
Author Organization [facility] Address [address] [place] [address] Care Team Providers Care Milling Machine Operator Name Role Phone Unavailable Primary Care Provider Unavailabl e Encounter Details Date Type Department Care Team (Late Contact Info) Description 04/06/2025 Abstract [facility] OB [address] [place] [address] Nolan Cortes [address] [place], [facility] - [...] AM EDT Routine [facility] OB [address] [facility] [place] [address] Kristan Fish PA [address] [place] [address] documented as of this encounter Visit Diagnoses Not on filedocumented in this encounter
--- OUTSIDE RECORDS SUMMARY | 2025-05-19 13:31 | XMS_ITS | Encounter Summary ---
Author Organization [facility] Address [address] [place] [address] Care Team Providers Care Picked Edge Sewing Machine Operator Name Role Phone Unavailable Primary Care Provider Unavailabl e Encounter Details Date Type Department Care Team (Late Contact Info) Description 01/27/2025 Abstract [facility] OB [address] [place] [address] Nolan Cortes DO [address] [place], [facility] [...] AM EDT Routine N[facility] OB [address] [facility] [place] [place] [address] Kristan Fish PA [address] [place] [address] documented as of this encounter Visit Diagnoses Not on filedocumented in this encounter
--- OUTSIDE RECORDS SUMMARY | 2025-05-19 13:31 | XMS_ITS | Clinical Summary ---
Demographics Address [address] [place] [address] Mobile Phone Home Phone Email Address Email Address Preferred Language Arabic Marital Status Zoroastrian Affiliation Unknown Race White Ethnic Group Not or Lati no Author Organization [employer] tem Address [id number] [address] [place] [address] Support Name Relationship Address Phone Dariusz Purvis Emergency Contact [address] [place] [address] Sravani Villasenor Personal Relationship [address] [place] [address] Laura Cope Personal Relationship Unknown [phone] Care Team Providers Care Digital Sales Representative Name Role Phone Eli Azul MD Primary [...] Team Description 04/29/2025 Telephone Maternal- Medicine at [facility] [address] [place] [address] Rufina Hurd CMA 04/19/2025 10:30 AM EDT Telemedicine Maternal- Medicine at [facility] [address] [place] [address] Kenya Acosta, UDAY Gestational diabetes mellitus (GDM) in second trimester controlled on oral hypoglycemic drug (Primary Dx) 04/19/2025 Travel 04/19/2025 Telephone Maternal- Medicine at [facility] [address] [place] [address] Rufina Hurd CMA 04/01/2025 Telephone Maternal- Medicine at [facility] [address] [place] [address] Violet Lopez RN 03/23/2025 10:30 AM EDT Telemedicine Maternal- Medicine at [facility] [address] [place] [address] Iman Hall, ELECTRICAL SUPERINTENDENT-PREMA Gestational diabetes mellitus (GDM) in second trimester controlled on oral hypoglycemic drug 03/23/2025 Travel 03/23/2025 Telephone Maternal- Medicine at [facility] [address] [place] [address] Rufina Hurd CMA 03/16/2025 Telephone Maternal- Medicine at [facility] [address] [place] [address] Violet Lopez RN 03/15/2025 Orders Only Maternal- Medicine at [facility] [address] [place] [address] Rufina Hurd, TAINA 03/08/2025 1:00 PM EDT Office Visit Maternal- Medicine at [facility] [address] [place] [address] Kenya Acosta, PASalomeC Gestational diabetes mellitus (GDM) in second trimester controlled on oral hypoglycemic drug (Primary Dx) 03/08/2025 Travel 03/08/2025 Telephone Maternal- Medicine at [facility] [address] [place] [address] Rufina Hurd, TAINA 03/04/2025 Telephone Maternal- Medicine at [facility] [address] [place] [address] Shima Renee RN 03/02/2025 Telephone Maternal- Medicine at [facility] [address] [place] [address] Shima Renee RN 02/24/2025 Telephone Maternal- Medicine at [facility] [address] [place] [address] Jewels Pedersen LD from Last 3 Months Immunizations Immunization Administration [...] 10:00 AM EDT Telemedicine Maternal- Medicine at [facility] [address] [place] [address] Kenya Acosta, PASalomeC [address] [address] Health Maintenance Due Date Last Done Comments [...] second trimester controlled on oral hypoglycemic drug from Last 3 Months Results * POCT Hemoglobin A1c (03/08/2025 2:02 PM EDT) External Poct Hgb A1C 5.8 4 - 7 % MANUALLY TRANSCRIBED RESULTS Blood 03/08/2025 2:02 PM EDT Kenya Acosta PA-C POINT OF CARE TEST ORDERABL ES Final Result MANUALLY TRANSCRIBED RESULTS from Last 3 Months Insurance [facility] [address] [id number] [facility] Care Teams Digital Sales Representative Relationship Specialty Start Date End Date Eli Azul MD PCP - General Pediatrics 06/23/18
--- OUTSIDE RECORDS SUMMARY | 2025-05-19 13:31 | XMS_ITS | Encounter Summary ---
Author Organization [facility] Address [address] [place] [address] Care Team Providers Care Nephrology Social Worker Name Role Phone Unavailable Primary Care Provider Unavailabl e Encounter Details Date Type Department Care Team (Late Contact Info) Description 03/07/2025 Abstract [facility] [address] [place] [address] Nolan Cortes [address], [id number] Social History Tobacco Use Types Packs/Day Years [...] AM EDT Routine [facility] [address] [facility] [address] Kristan Fish PA [address] [place] [address] documented as of this encounter Visit Diagnoses Not on filedocumented in this encounter
--- OUTSIDE RECORDS SUMMARY | 2025-05-19 13:31 | XMS_ITS | Encounter Summary ---
Demographics Address [address] [place] [address] Mobile Phone Home Phone Email Address Preferred Language Romanian Marital Status Mu-Ism Affiliation Unknown Race White Ethnic Group Not or Lati no Author Organization [facility] 2-[employer]erve tem Address [id number] [address] [place] [address] Support Name Relationship Address Phone Dariusz Purvis Emergency Contact [address] [place] [address] Sravani Villasenor Personal Relationship [address] [place] [address] Laura Cope Personal Relationship Unknown Care Team Providers Care Car Customizer Name Role Phone Eli Azul MD Primary Care Provider + Encounter Details Date Type Department Care Team (Late st Contact Info) Description 03/15/2025 Orders Only Maternal- Medicine at [facility] [address] [place] [address] Rufina Hurd CMA Social History Tobacco Use [...] 10:00 AM EDT Telemedicine Maternal- Medicine at [facility] [address] [place] [address] Kenya Acosta, PASalomeC [address] [address] documented as of this encounter Visit Diagnoses Not on filedocumented in this encounter Care Teams Car Customizer Relationship Specialty Start Date End Date Eli Azul MD PCP - General Pediatrics 06/23/18 documented as of this encounter
--- OUTSIDE RECORDS SUMMARY | 2025-05-19 13:31 | XMS_ITS | Encounter Summary ---
Author Organization [facility] Address [address] [place] [address] Care Team Providers Care Co Supervisor Grounds And Landscape Name Role Phone Unavailable Primary Care Provider Unavailabl e Encounter Details Date Type Department Care Team (Late Contact Info) Description 04/22/2023 Abstract [facility] OB [address] [facility] [place] [address] Nolan Cortes [address] [place], [facility]11 Social History Tobacco Use Types [...] AM EDT Routine [facility] BCP OB [address] [facility] [place] [address] Kristan Fish PA [address] [place], [facility]11 documented as of this encounter Visit Diagnoses Not on filedocumented in this encounter
--- OUTSIDE RECORDS SUMMARY | 2025-05-19 13:31 | XMS_ITS | Encounter Summary ---
Demographics Address [address] [place] [address] Mobile Phone Home Phone Email Address Email Address Preferred Language Albanian Marital Status Holiness Affiliation Unknown Race White Ethnic Group Not or Lati no Author Organization [facility] Address [id number] [address] [place] [address] Support Name Relationship Address Phone Dariusz Purvis Emergency Contact [address] [place] [address] Sravani Villasenor Personal Relationship [address] [place] [address] Laura Cope Personal Relationship Unknown [phone] Care Team Providers Care Material Mixer Name Role Phone Eli Azul MD Primary Care Provider + Encounter Details Date Type Department Care Team (Late st Contact Info) Description 02/07/2025 Orders Only Maternal- Medicine at [facility] [address] [place] [address] Ref Prov, [place] [address] Social History Tobacco Use Types Packs/Day Years [...] 10:00 AM EDT Telemedicine Maternal- Medicine at [facility] [address] [place] [address] Kenya Acosta PA-C [address] [address] documented as of this encounter Procedures Procedure [...] 1:52 PM EST) Anatomical Region Laterality Modality OB-CANNED FOOD RECONDITIONING INSPECTOR Ultrasound us Not In System Ref Prov IMG US ORDERABLES Final R esult documented in this encounter Visit Diagnoses Not on filedocumented in this encounter Care Teams Material Mixer Relationship Specialty Start Date End Date Eli Azul MD PCP - General Pediatrics 06/23/18 documented as of this encounter
--- OUTSIDE RECORDS SUMMARY | 2025-05-19 13:31 | XMS_ITS | Encounter Summary ---
Author Organization [facility] Address [address] [place] [address] Care Team Providers Care Rent And Housing Investigator Name Role Phone Unavailable Primary Care Provider Unavailabl e Encounter Details Date Type Department Care Team (Late Contact Info) Description 04/28/2024 Clinisync Result Encounter [facility] External Department Unsolicited Thomas Cortes DO [address] [facility] [place] [address] Social History Tobacco Use Types Packs/Day Years [...] [facility] [place] [address] Kristan Fish PA [address] [facility] [place] [address] documented as of this encounter Procedures Procedure Name Priority Date/Time Associated Diagnosis Comments US PELVIS W/ TRANSVAGINAL 04/28/2024 1:16 PM EDT documented in this encounter Results * US PELVIS W/ TRANSVAGINAL (04/28/2024 1:16 PM EDT) Anatomical Region Laterality Modality Other 04/28/2024 1:16 PM EDT Narrative 04/28/2024 1:19 PM EDT [address] [address] Ultrasound Report Signed Patient: KIRA PURVIS MR#: [id number] : 1990 Acct:[id number] Age/Sex: 33 / F ADM Date: 04/27/24 Loc: US Attending Dr: Thomas Cortes D.O. Ordering Physician: Thomas Cortes D.O. Date of Service: 04/27/24 Procedure(s): US pelvis w/ transvaginal Accession Number(s): [id number] cc: Thomas Cortes D.O.; Physician,Non-Staff [place]ky [address] [address] Patient Name: KIRA PURVIS MRN: [facility]:[id number] date: 1990 Sex: F Assigned Patient Location: US Current Patient Location: Accession/Order Number: [id number] Exam Date: 04/27/2024 14:00 Report Date: 04/28/2024 [...] Signed By: 04/28/24 1319 DD/ 1316 TD/TT: Lpn Or Medical Assistant: Procedure Note Radiology, Radiologist, MD - 04/28/2024 [place] [address] Ultrasound Report Signed Patient: KIRA PURVIS LMR#: [id number] : 1990Acct:[id number] Age/Sex: 33 / FADM Date: 04/27/24 Loc: US Attending Dr: Thomas Cortes D.O. Ordering Physician: Thomas Cortes D.O. Date of Service: 04/27/24 Procedure(s): US pelvis w/ transvaginal Accession Number(s): [id number] cc: Thomas Cortes D.O.; Physician,Non-Staff Nikky The [place] [id number] Patient Name: KIRA PURVIS MRN: [facility]:[id number] date: 1990 Sex: F Assigned Patient Location: US Current Patient Location: Accession/Order Number: [id number] Exam Date: 04/27/2024 14:00 Report Date: 04/28/2024 [...] M.D. Signed By:04/28/24 1319 DD/ 1316 TD/TT: Lpn Or Medical Assistant: us Thomas Sebastian DO [facility] Final Result documented in this encounter Visit Diagnoses Not on filedocumented in this encounter
--- OUTSIDE RECORDS SUMMARY | 2025-05-19 13:31 | XMS_ITS | Encounter Summary ---
Author Organization [facility] Address [address] [place] [address] Care Team Providers Care Clinical Services Manager Name Role Phone Unavailable Primary Care Provider Unavailabl e Encounter Details Date Type Department Care Team (Late Contact Info) Description 04/24/2023 Abstract [facility] OB [address] [facility] [place] [address] Nolan Cortes [address] [place], [facility]11 [...] AM EDT Routine [facility] BCP OB [address] [facility] [place] [address] Kristan Fish PA [address] [place], [facility]11 documented as of this encounter Visit Diagnoses Not on filedocumented in this encounter
--- OUTSIDE RECORDS SUMMARY | 2025-05-19 13:31 | XMS_ITS | Encounter Summary ---
Author Organization [facility] Address [address] [place] [address] Care Team Providers Care Manager Domestic Name Role Phone Unavailable Primary Care Provider Unavailabl e Encounter Details Date Type Department Care Team (Late Contact Info) Description 03/26/2024 Orders Only [facility] OB [address] [facility] [place] [address] Bertha Quevedo LPN [address] [facility]11 Social History Tobacco Use [...] Description 05/31/2025 10:50 AM EDT Routine [facility] OB [address] [facility] [place] [address] Kristan Fish PA [address] [facility] [place] [address] documented as of this encounter Procedures [...]
--- OUTSIDE RECORDS SUMMARY | 2025-05-19 13:31 | XMS_ITS | Encounter Summary ---
Author Organization [facility] Address [address] [place] [address] Care Team Providers Care Facility Maintenance Supervisor Name Role Phone Unavailable Primary Care Provider Unavailabl e Encounter Details Date Type Department Care Team (Late Contact Info) Description 04/25/2023 Abstract [facility] OB [address] [facility] [place] [address] Nolan Cortes [address] [place], [facility]11 Social History Tobacco Use Types Packs/Day Years [...] [facility] [place] [address] Kristan Fish PA [address] [place], [facility]11 documented as of this encounter Visit Diagnoses Not on filedocumented in this encounter
--- OUTSIDE RECORDS SUMMARY | 2025-05-19 13:31 | XMS_ITS | Encounter Summary ---
Author Organization [facility] Address [address] [place] [address] Care Team Providers Care Developmental Education Instructor Name Role Phone Unavailable Primary Care Provider Unavailabl e Encounter Details Date Type Department Care Team ([facility] Contact Info) Description 07/18/2023 Clinisync Result Encounter [facility] External Department Unsolicited Thomas Cortes DO [address] [facility] [address] [place], [facility]11 Social [...] Upcoming Encounters Date Type Department Care Team ([facility] Contact Info) Description 05/31/2025 10:50 AM EDT Routine [facility]CP [facility] [address] [facility] [place] [address] Kristan Fish PA [address] [facility] [address] [place], [facility]11 documented as of this encounter Procedures Procedure Name Priority Date/Time Associated Diagnosis Comments US OB BPP W NON-STRESS 07/18/2023 3:07 PM EDT documented in this encounter Results * US OB BPP W NON-STRESS (07/18/2023 3:07 PM EDT) Anatomical Region Laterality Modality Other 07/18/2023 3:07 PM EDT Narrative 07/18/2023 3:07 [place] [address] Ultrasound Report Signed Patient: KIRA PURVIS MR#: [id number] 06 : 1990 Acct:[id number] Age/Sex: 32 / F ADM Date: 07/17/23 Loc: US Attending Dr: Thomas Cortes D.O. Ordering Physician: Thomas Cortes D.O. Date of Service: 07/17/23 Procedure(s): US OB BPP w non-stress Accession Number(s): [id number] cc: Thomas Cortes D.O.; Physician,Non-Staff [place] [address] Patient Name: KIRA PURVIS MRN: [facility]:[id number] date: 1990 Sex: F Assigned Patient Location: [facility] Current Patient Location: Accession/Order Number: [id number] Exam Date: 07/17/2023 16:00 Report Date: 07/18/2023 [...] M.D. Signed By: 07/18/231509 DD/ 06 TD/TT: Demonstrator Sales: Procedure Note Radiology, Radiologist, - 08/01/2023 The [place] [id number] Ultrasound Report Signed Patient: KIRA PURVIS LMR#: [id number] 06 : 1990Acct:[id number] Age/Sex: 32 / FADM Date: 07/17/23 Loc: US Attending Dr: Thomas Cortes D.O. Ordering Physician: Thomas Cortes D.O. Date of Service: 07/17/23 Procedure(s): US OB BPP w non-stress Accession Number(s): [id number] cc: Thomas Cortes D.O.; Physician,Non-Staff Nikky The [place] [id number] Patient Name: KIRA PURVIS MRN: [facility]:[id number] date: 1990 Sex: F Assigned Patient Location: [facility] Current Patient Location: Accession/Order Number: [id number] Exam Date: 07/17/2023 16:00 Report Date: 07/18/2023 [...] Dillon M.D. Signed By:07/18/231509 DD/ 06 TD/TT: Demonstrator Sales: us Thomas Siddiquio DO [facility] Final Result documented in this encounter Visit Diagnoses Not on filedocumented in this encounter
--- OUTSIDE RECORDS SUMMARY | 2025-05-19 13:31 | XMS_ITS | Encounter Summary ---
Author Organization [facility] Address [address] [place] [address] Care Team Providers Care Certified Ski Patroller Name Role Phone Unavailable Primary Care Provider Unavailabl e Encounter Details Date Type Department Care Team (Late Contact Info) Description 08/08/2023 Clinisync Result Encounter [facility] External Department Unsolicited Thomas Cortes DO [address] [facility] [place] [address] Social History Tobacco Use Types Packs/Day Years [...] [address] [facility] [place] [address] Kristan Fish PA [address] [facility] [place] [address] documented as of this encounter Procedures Procedure Name Priority Date/Time Associated Diagnosis Comments US OB GROWTH 08/08/2023 3:08 PM EDT documented in this encounter Results * US OB GROWTH (08/08/2023 3:08 PM EDT) Anatomical Region Laterality Modality Other 08/08/2023 3:08 PM EDT Narrative 08/08/2023 3:08 [place] [address] Ultrasound Report Signed Patient: KIRA PURVIS MR#: [id number] : 1990 Acct:[id number] Age/Sex: 32 / F ADM Date: 08/07/23 Loc: US Attending Dr: Thomas Cortes D.O. Ordering Physician: Thomas Cortes D.O. Date of Service: 08/07/23 Procedure(s): US OB growth Accession Number(s): [id number] cc: Thomas Cortes D.O.; Physician,Non-Staff [place] [id number] Patient Name: KIRA PURVIS MRN: [facility]:[id number] date: 1990 Sex: F Assigned Patient Location: [facility] Current Patient Location: US Accession/Order Number: [id number] Exam Date: 08/07/2023 16:05 Report Date: 08/08/2023 [...] Signed By: 08/08/23 1511 DD/ 1508 TD/TT: Power Plant Superintendent: Procedure Note Radiology, Radiologist, - 08/08/2023 [place] [address] Ultrasound Report Signed Patient: KIRA PURVIS LMR#: [id number] : 1990Acct:[id number] Age/Sex: 32 / FADM Date: 08/07/23 Loc: US Attending Dr: Thomas Cortes D.O. Ordering Physician: Thomas Cortes D.O. Date of Service: 08/07/23 Procedure(s): US OB growth Accession Number(s): [id number] cc: Thomas Cortes D.O.; Physician,Non-Staff Nikky [place] [address] Patient Name: KIRA PURVIS MRN: [facility]:[id number] date: 1990 Sex: F Assigned Patient Location: [facility] Current Patient Location: Accession/Order Number: [id number] Exam Date: 08/07/2023 16:05 Report Date: 08/08/2023 [...] M.D. Signed By:08/08/23 1511 DD/ 1508 TD/TT: Power Plant Superintendent: us Thomas Sebastian DO [facility] Final Result documented in this encounter Visit Diagnoses Not on filedocumented in this encounter
--- OUTSIDE RECORDS SUMMARY | 2025-05-19 13:31 | XMS_ITS | Clinical Summary ---
Author Organization [facility] Address [address] [place] [address] Care Team Providers Care Lead Medical Technologist Name Role Phone Unavailable Primary Care Provider Unavailabl e Allergies No known active allergies Medications Alcohol Swabs (Alcohol Prep Pad) 70 % padsIndications: Gestational diabetes mellitus (GDM), antepartum, gestational diabetes method of control unspecified ([facility]),Elevat ed glucose tolerance test Apply 1 Pad topically Daily Use four times daily to check FSBS. 150 each 3 5 Active MV & Min w/FA-DHA ( Adult Gummy/DHA/FA) 0.4-25 MG chewable tablet Chew 1 each Daily 5 Active aspirin 81 MG EC tablet Take 81 mg by mouth Daily Active Blood Glucose Monitoring Suppl (Accu-Chek Guide Ne) w/Device kitIndications:G estational diabetes mellitus (GDM), antepartum, gestational diabetes method of control unspecified ([facility]),Elevat ed glucose tolerance test USE TO CHECK [...] Benign essential hypertensio n in obstetric context ([facility]) 04/18/2023 Exposure to cat feces 04/18/2023 Gestational diabetes ([facility]) 04/18/2023 Nausea 04/18/2023 History of delivery 02/24/2023 Estimated Date of Delivery Comme nts Yes 06/24/2025 Based on last me nstrual period of 09/17/2024 Encounters Date Type Department Care Team Description 05/17/2025 11:40 AM EDT Routine [facility] [address] [place] [address] [place] [address] Thomas Cortes, DO Third trimester ([facility]); 34 weeks gestation of ([facility]); Gestational diabetes mellitus (GDM), antepartum, gestational diabetes method of control unspecified ([facility]) 05/17/2025 Bamboo flowsheet [facility] OB [address] [place] [place] [address] Thomas Cortes, DO 05/16/2025 Clinisync Result Encounter [facility] External Department Unsolicited Thomas Cortes, DO 05/09/2025 Clinisync Result Encounter [facility] External Department Unsolicited Thomas Cortes, DO 05/02/2025 10:50 AM EDT Routine [facility] OB [address] [place] [address] [place] [address] Kristan Fish PA 32 weeks gestation of ([facility]); Third trimester ([facility]) 05/02/2025 Clinisync Result Encounter [facility] External Department Unsolicited Thomas Cortes, DO 05/02/2025 Bamboo flowsheet [facility] OB [address] [place] [address] [place] [address] Kristan Fish PA 04/25/2025 Clinisync Result Encounter [facility] External Department Unsolicited Thomas Cortes, DO 04/18/2025 1:00 PM EDT Routine [facility] [address] [place] [place] [address] Thomas Cortes, 30 weeks gestation of ([facility]); Third trimester ([facility]) 04/18/2025 Clinisync Result Encounter [facility] External Department Unsolicited Thomas Cortes, DO 04/18/2025 Bamboo flowsheet [facility] OB [address] [place] [address] [place] [address] Thomas Cortes, 04/11/2025 Clinisync Result Encounter [facility] External Department Unsolicited Thomas Cortes, 04/11/2025 Travel 04/06/2025 Abstract [facility] OB [address] [place] [place] [address] Thomas Cortes, 04/05/2025 1:50 PM EDT Routine [facility] OB [address] [place] [place] [address] Thomas Cortes, DO Third trimester ([facility]); 28 weeks gestation of ([facility]); Gestational diabetes mellitus (GDM), antepartum, gestational diabetes method of control unspecified ([facility]); H/O: hypertension 04/05/2025 Bamboo flowsheet [facility] OB [address] [place] [address] Thomas Cortes, DO 03/14/2025 1:50 PM EDT Routine [facility] OB [address] [place] [place] [address] Thomas Cortes, Second trimester ([facility]); 25 weeks gestation of ([facility]) 03/14/2025 Bamboo flowsheet [facility] OB [address] [place] [place] [address] Thomas Cortes, 03/08/2025 Telephone [facility] OB [address] [place] [address] [place] [address] Suze Hendrix MA 03/07/2025 Abstract [facility] OB [address] [place] [place] [address] Thomas Cortes, 03/07/2025 Clinisync Result Encounter [facility] External Department Unsolicited Thomas Cortes, 02/21/2025 1:20 PM EDT Routine [facility] OB [address] [place] [address] Thomas Cortes, Second trimester ([facility]); 22 weeks gestation of ([facility]) 02/21/2025 Bamboo flowsheet [facility] [address] [place] [address] Thomas Cortes DO 02/18/[address] [facility] [address] [place] [address] Thomas Cortes, Gestational diabetes mellitus (GDM), antepartum, gestational diabetes method of control unspecified ([facility]); Elevated glucose tolerance test 02/17/[address] [facility] [address] [place] [address] Suze Hendrix MA from Last 3 [...] 12.8 oz) 05/17/2025 11:58 AM EDT Height 170.2 cm (5' 7 ) 09/09/2023 1:05 PM EDT Body Mass Index 47.58 09/09/2023 1:05 PM EDT Plan of Treatment Upcoming Encounters Date Type Department Care Team (Late st Contact Info) Description 05/31/2025 10:50 AM EDT Routine [facility] [address] [place] [address] Kristan Fish PA [address] [place] [address] [place] [address] Procedures Procedure Name Priority Date/Time Associated Diagnosis Comments US OB BPP W NON-STRESS 05/16/2025 11:00 PM EDT US OB BPP W NON-STRESS 05/09/2025 3:51 PM EDT US OB BPP W NON-STRESS 05/02/2025 4:30 PM EDT POCT URINALYSIS DIPSTICK Routine 05/02/2025 11:00 AM EDT 32 weeks gestation of ([facility]) Third trimester ([facility]) US OB BPP W NON-STRESS 04/25/2025 9:36 PM EDT US OB BPP W NON-STRESS 04/18/2025 4:07 PM EDT POCT URINALYSIS DIPSTICK Routine 04/18/2025 1:14 PM EDT 30 weeks gestation of ([facility]) Third trimester ([facility]) US OB BPP W NON-STRESS 04/11/2025 4:05 PM EDT POCT URINALYSIS DIPSTICK Routine 04/05/2025 2:19 PM EDT Third trimester ([facility]) US OB INCOMPLETE ANATOMY 03/07/2025 12:42 PM EDT POCT URINALYSIS DIPSTICK Routine 02/21/2025 2:08 PM EDT Second trimester ([facility]) from Last 3 Months Results * US OB BPP W NON-STRESS (05/16/2025 11:00 PM EDT) Only the most recent of6 resultswithin the time period is included. Anatomical Region Laterality Modality Other 05/16/2025 11:0 0 PM EDT Narrative 05/16/2025 11:03 PM EDT [address] [address] Ultrasound Report Signed Patient: KIRA PUVRIS MR#: [id number] : 1990 Acct:[id number] Age/Sex: 34 / F ADM Date: 05/16/25 Loc: US Attending Dr: Thomas Cortes D.O. Ordering Physician: Thomas Cortes D.O. Date of Service: 05/16/25 Procedure(s): US OB BPP w non-stress Accession Number(s): [id number] cc: Thomas Cortes D.O.; Physician,Non-Staff Nikky [place] [id number] Patient Name: KIRA PURVIS MRN: [id number] date: 1990 Sex: F Assigned Patient Location: US Current Patient Location: Accession/Order Number: [id number] Exam Date: 05/16/2025 22:56 Report Date: 05/16/2025 [...] Brewer M.D. 05/16/2025 11:00 PM Dictation Location: [place] [address] Electronically authenticated by: [id number] Y Date: 05/16/2025 23:00 Dictated By: Mehul Brewer M.D. Signed By: 05/16/252302 DD/ 99 TD/TT: Food Specialist: Procedure Note Radiology, Radiologist, - 05/16/2025 [place] [address] Ultrasound Report Signed Patient: KIRA PURVIS LMR#: [id number] : 1990Acct:[id number] Age/Sex: 34 / FADM Date: 05/16/25 Loc: US Attending Dr: Thomas Cortes D.O. Ordering Physician: Thomas Cortes D.O. Date of Service: 05/16/25 Procedure(s): US OB BPP w non-stress Accession Number(s): [id number] cc: Thomas Cortes D.O.; Physician,Non-Staff Nikky The [place] [address] Patient Name: KIRA PURVIS MRN: [id number] date: 1990 Sex: F Assigned Patient Location: US Current Patient Location: Accession/Order Number: [id number] Exam Date: 05/16/2025 22:56 Report Date: 05/16/2025 23:00 At the request of: THOMAS CORTES DO Procedure: US OB BPP w non-stress Ultrasound biophysical profile Indication for exam: Gestational diabetes COMPARISON: 05/09/2025 FINDINGS: Single live intrauterine gestation with score 8/8 heartrate of 184 beats per minutes BHAVANI 17.05 cm US/US OB BPP w non-stress IMPRESSION: BP biophysical profile 8 out of 8 Impression dictated by: Mehul Brewer M.D. 05/16/2025 11:00 PM Dictation Location: [place] [address] Electronically authenticated by: [id number] Y Date: 3:00 Dictated By: Mehul Brewer M.D. Signed By:05/16/252302 DD/ 99 TD/TT: Food Specialist: us Thomas Cortes DO [facility] [...] PM EDT Narrative 03/07/2025 12:44 [place] [address] Ultrasound Report Signed Patient: KIRA PURVIS MR#: [id number] : 1990 Acct:[id number] Age/Sex: 34 / F ADM Date: 03/05/25 Loc: US Attending Dr: Thomas Cortes D.O. Ordering Physician: Thomas Cortes D.O. Date of Service: 03/05/25 Procedure(s): US OB incomplete anatomy Accession Number(s): [id number] cc: Thomas Cortes D.O.; Physician,Non-Staff M.Daisy The [address] [address] Patient Name: KIRA PURVIS MRN: [id number] date: 1990 Sex: F Assigned Patient Location: Current Patient Location: Accession/Order Number: [id number] Exam Date: 03/07/2025 12:39 Report Date: 03/07/2025 [...] Jr., D.O. 03/07/2025 12:42 PM Dictation Location: [place] [address] Electronically authenticated by: [id number] Y Date: 03/07/2025 12:42 Dictated By: Jacinto Rivas M.D. Signed By: 03/07/25 1244 DD/ 1242 TD/TT: Food Specialist: Procedure Note Radiology, Radiologist, MD - 03/07/2025 [place] [address] Ultrasound Report Signed Patient: KIRA PURVIS LMR#: [id number] : 1990Acct:[id number] Age/Sex: 34 / FADM Date: 03/05/25 Loc: US Attending Dr: Thomas Cortes D.O. Ordering Physician: Thomas Cortes D.O. Date of Service: 03/05/25 Procedure(s): US OB incomplete anatomy Accession Number(s): [id number] cc: Thomas Cortes D.O.; Physician,Non-Staff Nikky The [place] [id number] Patient Name: KIRA PURVIS MRN: [id number] date: 1990 Sex: F Assigned Patient Location: US Current Patient Location: Accession/Order Number: [id number] Exam Date: 03/07/2025 12:39 Report Date: 03/07/2025 [...] Jr., D.O. 03/07/2025 12:42 PM Dictation Location: [place] [address] Electronically authenticated by: [id number] Y Date: 2:42 Dictated By: Jacinto Rivas M.D. Signed By:03/07/25 1244 DD/ 1242 TD/TT: Food Specialist: Thomas Cortes DO [facility] Final Result from Last 3 Months Insurance
--- OUTSIDE RECORDS SUMMARY | 2025-05-19 13:31 | XMS_ITS | Encounter Summary ---
Author Organization [facility] Address [address] [place] [address] Care Team Providers Care Clean In Places Operator Name Role Phone Unavailable Primary Care Provider Unavailabl e Encounter Details Date Type Department Care Team (Late st Contact Info) Description 04/21/2023 Abstract [facility] OB [address] [place] [phone] Nolan Cortes DO [address] [facility] [address] [facility] [address] Rocael [place], [facility]11 Social History Tobacco Use Types [...] Description 05/31/2025 10:50 AM EDT Routine [facility] OB [address] [place] [address] [place] [address] Kristan Fish PA [address] [place], [place] [phone] documented as of this encounter Visit Diagnoses Not on filedocumented in this encounter
--- OUTSIDE RECORDS SUMMARY | 2025-05-19 13:31 | XMS_ITS | Encounter Summary ---
Author Organization [facility] Address [address] [place] [address] Care Team Providers Care Psychiatric Arnp Name Role Phone Unavailable Primary Care Provider Unavailabl e Encounter Details Date Type Department Care Team (Late Contact Info) Description 02/01/2025 Abstract [facility] [address] [place] [address] Nolan Cortes DO [address] [place], [...] EDT Routine [facility] [address] [facility] [place] [place] [address] Kristan Fish PA [address] [place] [address] documented as of this encounter Visit Diagnoses Not on filedocumented in this encounter
--- OUTSIDE RECORDS SUMMARY | 2025-05-19 13:31 | XMS_ITS | Encounter Summary ---
Author Organization [facility] Address [address] [place] [address] Care Team Providers Care Rn Diabetes Name Role Phone Unavailable Primary Care Provider Unavailabl e Encounter Details Date Type Department Care Team (Late Contact Info) Description 05/09/2025 Clinisync Result Encounter [facility] External Department Unsolicited Thomas Cortes DO [address] [facility] [address] Rocael [place], [facility]11 Social [...] [address] [facility] [address] Kristan Fish PA [address] [facility] [address] [place], [facility]11 documented as of this encounter Procedures Procedure Name Priority Date/Time Associated Diagnosis Comments US OB BPP W NON-STRESS 05/09/2025 3:51 PM EDT documented in this encounter Results * US OB BPP W NON-STRESS (05/09/2025 3:51 PM EDT) Anatomical Region Laterality Modality Other 05/09/2025 3:51 PM EDT Narrative 05/09/2025 3:54 [place] [address] Ultrasound Report Signed Patient: KIRA PURVIS MR#: [id number] : 1990 Acct:[id number] Age/Sex: 34 / F ADM Date: 05/09/25 Loc: [facility] 250-[address]: Thomas Cortes D.O. Ordering Physician: Thomas Cortes D.O. Date of Service: 05/09/25 Procedure(s): US OB BPP w non-stress Accession Number(s): [id number] cc: Thomas Cortes D.O.; Physician,Non-Staff Nikky The [place] [id number] Patient Name: KIRA PURVIS MRN: [id number] date: 1990 Sex: F Assigned Patient Location: [facility] Current Patient Location: [facility] Accession/Order Number: [id number] Exam Date: 05/09/2025 15:50 Report Date: 05/09/2025 15:51 At the request of: THOMAS CORTES DO Procedure: US OB BPP w non-stress Biophysical profile. Reason for exam: Gestational diabetes. COMPARISON: BDP 05/02/2025. TECHNIQUE: Transabdominal imaging of the gravid uterus was obtained. FINDINGS: Senior Online Marketing Manager reports a BPP of 8 out of 8. BHAVANI is normal at 13.2 cm. heart rate 161 bpm. US/US OB BPP w non-stress Impression: BPP 8 out of 8. Impression dictated by: Jacinto Rivas Jr., D.O. 05/09/2025 3:51 PM Dictation Location: [place] [address] Electronically authenticated by: [id number] Y Date: 05/09/2025 15:51 Dictated By: Jacinto Rivas M.D. Signed By: 05/09/25 1554 DD/ 1551 TD/TT: Motor Vehicle Licence Examiner: Procedure Note Radiology, Radiologist, MD - 05/09/2025 [place] [address] Ultrasound Report Signed Patient: KIRA PURVIS LMR#: [id number] : 1990Acct:[id number] Age/Sex: 34 / FADM Date: 05/09/25 Loc: [facility] 250-[address]: Thomas Cortes D.O. Ordering Physician: Thomas Cortes D.O. Date of Service: 05/09/25 Procedure(s): US OB BPP w non-stress Accession Number(s): [id number] cc: Thomas Cortes D.O.; Physician,Non-Staff Nikky The [place] [address] Patient Name: KIRA PURVIS MRN: [facility]:[id number] date: 1990 Sex: F Assigned Patient Location: [facility] Current Patient Location: [facility] Accession/Order Number: [id number] Exam Date: 05/09/2025 15:50 Report Date: 05/09/2025 15:51 At the request of: THOMAS CORTES DO Procedure: US OB BPP w non-stress Biophysical profile. Reason for exam: Gestational diabetes. COMPARISON: BDP 05/02/2025. TECHNIQUE: Transabdominal imaging of the gravid uterus was obtained. FINDINGS: Senior Online Marketing Manager reports a BPP of 8 out of 8. BHAVANI is normal at 13.2cm. heart rate 161 bpm. US/US OB BPP w non-stress Impression: BPP 8 out of 8. Impression dictated by: Jacinto Rivas Jr., D.O. 05/09/2025 3:51 PM Dictation Location: [place] [address] Electronically authenticated by: [id number] Y Date: 5:51 Dictated By: Jacinto Rivas M.D. Signed By:05/09/25 1554 DD/ 1551 TD/TT: Motor Vehicle Licence Examiner: us Thomas Cortes DO [facility] Final Result documented in this encounter Visit Diagnoses Not on filedocumented in this encounter
--- OUTSIDE RECORDS SUMMARY | 2025-05-19 13:31 | XMS_ITS | Encounter Summary ---
Author Organization [facility] Address [address] [place] [address] Care Team Providers Care Duplication Specialist Name Role Phone Unavailable Primary Care Provider Unavailabl e Encounter Details Date Type Department Care Team (Late st Contact Info) Description 04/14/2023 Abstract [facility] OB [address] [place] [phone] Nolan Cortes DO [address] [facility] [address] Rocael [place], [facility]11 Social History Tobacco Use Types [...] Description 05/31/2025 10:50 AM EDT Routine [facility] OB [address] [place] [place] [address] Kristan Fish PA [address] [facility] [address] [place], [place] [phone] documented as of this encounter Visit Diagnoses Not on filedocumented in this encounter
--- OUTSIDE RECORDS SUMMARY | 2025-05-19 13:31 | XMS_ITS | Encounter Summary ---
Author Organization [facility] Address [address] [place] [address] Care Team Providers Care Society Reporter Name Role Phone Unavailable Primary Care Provider Unavailabl e Encounter Details Date Type Department Care Team (Late st Contact Info) Description 04/18/2023 Abstract [facility] OB [address] [facility] [place] [phone] Nolan Cortes DO [address] [facility] [address] Rocael Jefrfies, [facility] [address] Social History Tobacco Use Types Packs/Day [...] Description 05/31/2025 10:50 AM EDT Routine [facility] OB [address] [place] [address] [place] [address] Kristan Fish PA [address] [facility] [address] [facility] [address] [place], [place] [phone] documented as of this encounter Visit Diagnoses Not on filedocumented in this encounter
[2025-05-19 15:05] VITALS: BP 123/73; PULSE 83
== END 2025-05-19 15:30 | disposition home or self-care (01) ==
LOC: FBCO 13:31 → FBC 14:58
PROVIDERS: Visit Provider Obstetrics & Gynecology
DX: O99.283 Endocrine, nutritional and metabolic diseases complicating pregnancy, third trimester (principal); Z3A.34 34 weeks gestation of pregnancy
CPT/HCPCS: 59025

== ENCOUNTER 2025-05-23 15:02 | Outpatient (OUT) | payer BC, SELFPAY ==
--- OUTSIDE RECORDS SUMMARY | 2025-05-17 11:40 | XMS_ITS | Encounter Summary ---
Author Organization [facility] Address [address] [place] [address] Care Team Providers Care Control Room Technician Name Role Phone Unavailable Primary Care Provider Unavailabl e Reason for Visit * Reason Comments Routine Visit Encounter Details Date Type Department Care Team ([facility] Contact Info) Description 05/17/2025 11:40 AM EDT Routine [facility] OB [address] [facility] [place] [phone] Nolan Cortes, DO [address] [facility] [address] [place], [place] [address] Third trimester ([facility]); 34 weeks gestation of ([facility]); Gestational diabetes mellitus (GDM), antepartum, gestational diabetes method of control unspecified ([facility]) Social History Tobacco Use Types Packs/Day Years [...] Sign Reading Time Taken Comments Blood Pressure 126/78 05/17/2025 11:58 AM EDT Pulse - - Temperature - - Respiratory Rate - - Oxygen Saturation - - Inhaled Oxygen Concentration - - Weight 138 kg (303 lb 12.8 oz) 05/17/2025 11:58 AM EDT Height - - Body Mass Index 47.58 09/09/2023 1:05 PM EDT documented in this encounter Progress Notes * Grace Arita, YOUTH PASTOR - 05/17/2025 11:40 AM EDT Reason for Appointment: Patient ID: [...] Noted Benign essential hypertension in obstetric context ([facility]) 04/18/2023 Exposure to cat feces 04/18/2023 Gestational diabetes ([facility]) 04/18/2023 Nausea 04/18/2023 History of delivery 02/24/2023 Resolved Ambulatory Problems Diagnosis Date Noted No Resolved Ambulatory Problems Past Medical History: Diagnosis Date Chronic hypertension affecting ([facility]) Exposure to cat feces, sequela Former smoker Herpes exposure History of miscarriage Morbid obesity with BMI of 40.0-44.9, adult ([facility]) HISTORY PAST MEDICAL HISTORY SOCIAL HISTORY Past Medical History: Diagnosis Date Chronic hypertension affecting ([facility]) Exposure to cat feces, sequela Former smoker Gestational diabetes ([facility]) Herpes exposure History of miscarriage Morbid obesity with BMI of 40.0-44.9, adult ([facility]) Social History Tobacco Use Smoking status: Former [...] nursing note reviewed. Exam conducted with a asbestos siding mechanic present. Vitals: Estimated body mass index is 47.58 kg/m?? as calculated from the following: Height as of 09/09/23: 5' 7 . Weight as of this encounter: 303 lb 12.8 oz. BP: 126/78 Patient's last menstrual period was 09/17/2024. ASSESSMENT & PLAN ICD-10-CM 1. Third trimester ([facility]) Z34.93 2. 34 weeks gestation of ([facility]) Z3A.34 3. Gestational diabetes mellitus (GDM), antepartum, gestational diabetes method of control unspecified ([facility]) O24.419 Return OB: Patient presents today for a routine obstetrics appointment. Patient is currently 34w4d . Patient states she is doing well but has complaints of being tired due to current . Patient has verbalizes frequent movement. labor precautions was discussed/given and patient was instructed to perform kick counts three times a day. No orders of the defined types were placed in this encounter. Follow Up: Patient is to return to office in 2 week for routine OB appointment. Documented by Grace Arita LPN on behalf of: Nolan Cortes DO documented in this encounter Plan of Treatment Upcoming Encounters Date Type Department Care Team (Late st Contact Info) Description 05/24/2025 8:40 AM EDT Routine [facility] OB [address] [facility] [address] Kristan Fish PA [address] [place] [address] [place] [address] 05/31/2025 10:50 AM EDT Routine [facility] BCP OB [address] [facility] [place] [address] Kristan Fish PA [address] [place] [address] [place] [address] documented as of this encounter Visit Diagnoses Diagnosis Third trimester ([facility]) state, incidental 34 weeks gestation of ([facility]) Gestational diabetes mellitus (GDM), antepartum, gestational diabetes method of control unspecified ([facility]) documented in this encounter
--- OUTSIDE RECORDS SUMMARY | 2025-05-23 15:06 | XMS_ITS | Encounter Summary ---
Author Organization [facility] Address [address] [place] [address] Care Team Providers Care Set Up Machinist Name Role Phone Unavailable Primary Care Provider Unavailabl e Encounter Details Date Type Department Care Team (Late st Contact Info) Description 11/26/2024 Clinisync Result Encounter [facility] External Department Unsolicited Thomas Cortes DO [address] [place] [address] Social History Tobacco Use Types Packs/Day [...] [address] [facility] [place] [address] Kristan Fish PA [address] [facility] [place] [address] 05/31/2025 10:50 AM EDT Routine [facility] [address] [facility] [facility] [place] [address] Kristan Fish PA [address] [facility] [place] [address] documented as of this encounter Procedures Procedure Name Priority Date/Time Associated Diagnosis Comments US OB TRANSVAGINAL 11/26/2024 9: 35 AM EST documented in this encounter Results * US OB TRANSVAGINAL (11/26/2024 9:35 AM EST) Anatomical Region Laterality Modality Other 11/26/2024 9:35 AM EST Narrative 11/26/2024 9:37 AM EST [address] [address] Ultrasound Report Signed Patient: KIRA PURVIS MR#: [id number] : 1990 Acct:[id number] Age/Sex: 34 / F ADM Date: 11/26/24 Loc: US Attending Dr: Thomas Cortes D.O. Ordering Physician: Thomas Cortes D.O. Date of Service: 11/26/24 Procedure(s): US OB transvaginal Accession Number(s): [id number] cc: Thomas Cortes D.O.; Physician,Non-Staff M.DMya The [address] [address] Patient Name: KIRA PURVIS MRN: TBH:[id number] date: 1990 Sex: F Assigned Patient Location: US Current Patient Location: US Accession/Order Number: [id number] Exam Date: 11/26/2024 08:36 Report Date: 11/26/2024 [...] M.D. Signed By: 11/26/24 0937 DD/ TD/TT: Accountant Budget: Procedure Note Radiology, Radiologist, MD - 11/26/2024 [place] [address] Ultrasound Report Signed Patient: KIRA PURVIS LMR#: [id number] : 1990Acct:[id number] Age/Sex: 34 / FADM Date: 11/26/24 Loc: US Attending Dr: Thomas Cortes D.O. Ordering Physician: Thomas Cortes D.O. Date of Service: 11/26/24 Procedure(s): US OB transvaginal Accession Number(s): [id number] cc: Thomas Cortes D.O.; Physician,Non-Staff Nikky The [address] [address] Patient Name: KIRA PURVIS MRN: TBH:[id number] date: 1990 Sex: F Assigned Patient Location: US Current Patient Location: US Accession/Order Number: [id number] Exam Date: 11/26/2024 08:36 Report Date: 11/26/2024 [...] M.D. Signed By:11/26/24 0937 DD/ 0935 TD/TT: Accountant Budget: us Thomas Cortes DO [facility] Final Result documented in this encounter Visit Diagnoses Not on filedocumented in this encounter
--- OUTSIDE RECORDS SUMMARY | 2025-05-23 15:06 | XMS_ITS | Encounter Summary ---
Author Organization [facility] Address [address] [place] [address] Care Team Providers Care Global Human Resources Director Name Role Phone Unavailable Primary Care Provider Unavailabl e Encounter Details Date Type Department Care Team (Late st Contact Info) Description 05/16/2025 Clinisync Result Encounter N[facility]S External Department Unsolicited Thomas Cortes DO [address] Donna Jeffries, [facility]11 Social History Tobacco [...] [address] [facility] [place] [address] Kristan Fish PA [address] [place], [place] [address] 05/31/2025 10:50 AM EDT Routine [facility] BCP OB 102 [facility] [place] [address] Kristan Fish, PA [address] [facility] [address] [place], [facility]11 [phone] (work) documented as of this encounter Procedures Procedure Name Priority Date/Time Associated Diagnosis Comments US OB BPP W NON-STRESS 05/16/2025 11:00 PM EDT documented in this encounter Results * US OB BPP W NON-STRESS (05/16/2025 11:00 PM EDT) Anatomical Region Laterality Modality Other 05/16/2025 11:0 0 PM EDT Narrative 05/16/2025 11:03 [place] [address] Ultrasound Report Signed Patient: KIRA PURVIS MR#: [id number] : 1990 Acct:[id number] Age/Sex: 34 / F ADM Date: 05/16/25 Loc: US Attending Dr: Thomas Cortes D.O. Ordering Physician: Thomas Cortes D.O. Date of Service: 05/16/25 Procedure(s): US OB BPP w non-stress Accession Number(s): [id number] cc: Thomas Cortes D.O.; Physician,Non-Staff Nikky [address] [address] Patient Name: KIRA PURVIS MRN: [id number] date: 1990 Sex: F Assigned Patient Location: US Current Patient Location: Accession/Order Number: [id number] Exam Date: 05/16/2025 22:56 Report Date: 05/16/2025 [...] Brewer M.D. 05/16/2025 11:00 PM Dictation Location: RADIO-PC-[id number] Electronically authenticated by: [id number] Y Date: 05/16/2025 23:00 Dictated By: Mehul Brewer M.D. Signed By: 05/16/252302 DD/ 99 TD/TT: Lmsw: Procedure Note Radiology, Radiologist, MD - 05/16/2025 [place] [address] Ultrasound Report Signed Patient: KIRA PURVIS LMR#: [id number] : 1990Acct:[id number] Age/Sex: 34 / FADM Date: 05/16/25 Loc: US Attending Dr: Thomas Cortes D.O. Ordering Physician: Thomas Cortes D.O. Date of Service: 05/16/25 Procedure(s): US OB BPP w non-stress Accession Number(s): [id number] cc: Thomas Cortes D.O.; Physician,Non-Staff Nikky The [place] [address] Patient Name: KIRA PURVIS MRN: [id number] date: 1990 Sex: F Assigned Patient Location: US Current Patient Location: Accession/Order Number: [id number] Exam Date: 05/16/2025 22:56 Report Date: 05/16/2025 [...] Brewer M.D. 05/16/2025 11:00 PM Dictation Location: CodingpeoplePC-29 Electronically authenticated by: [id number] Y Date: 3:00 Dictated By: Mehul Brewer M.D. Signed By:05/16/252302 DD/ 99 TD/TT: Lmsw: us Thomas Cortes DO [facility] Final Result documented in this encounter Visit Diagnoses Not on filedocumented in this encounter
--- OUTSIDE RECORDS SUMMARY | 2025-05-23 15:06 | XMS_ITS | Encounter Summary ---
Author Organization [facility] Address [address] [place] [address] Care Team Providers Care Demand Planner Name Role Phone Unavailable Primary Care Provider Unavailabl e Encounter Details Date Type Department Care Team (Late Contact Info) Description 01/24/2025 Abstract [facility] BCP OB [address] [place] [address] Nolan Cortes DO 102 [address] Jeffries, [facility]11 Social History Tobacco [...] Department Care Team (Late Contact Info) Description 05/24/2025 8:40 AM EDT Routine [facility] BCP OB [address] [place] [address] Kristan Fish PA 102 [place] [address] 05/31/2025 10:50 AM EDT Routine [facility] BCP OB [address] [place] [address] rKistan Fish PA [address] [place] [address] Dr [place], [facility]11 documented as of this encounter Visit Diagnoses Not on filedocumented in this encounter
--- OUTSIDE RECORDS SUMMARY | 2025-05-23 15:06 | XMS_ITS | Encounter Summary ---
Author Organization [facility] Address [address] [place] [address] Care Team Providers Care Team Truck Driver Name Role Phone Unavailable Primary Care Provider Unavailabl e Encounter Details Date Type Department Care Team (Late Contact Info) Description 08/21/2023 Abstract [facility] BCP OB [address] [facility] [place] [address] Nolan Cortes DO [address] [place] [address] Dr Rocael Jeffries, [facility]11 Social History Tobacco Use Types [...] 8:40 AM EDT Routine [facility] BCP OB [address] [place] [address] [place] [address] Kristan Fish PA [address] [place], [place] [address] [place], [facility]11 05/31/2025 10:50 AM EDT Routine [facility] BCP OB [address] [place], [place] [address] [address] Kristan Fish, PA [address] [place] [address] Dr [place], [facility]11 (work) documented as of this encounter Visit Diagnoses Not on filedocumented in this encounter
--- OUTSIDE RECORDS SUMMARY | 2025-05-23 15:06 | XMS_ITS | Encounter Summary ---
Author Organization [facility] Address [address] [place] [address] Care Team Providers Care Natural Science Manager Name Role Phone Unavailable Primary Care Provider Unavailabl e Encounter Details Date Type Department Care Team (Late Contact Info) Description 08/21/2023 Abstract [facility] BCP OB [address] [place] [address] Nolan Cortes DO [address] [place] [address] Dr Rocael Jeffries, [facility]11 Social History Tobacco [...] 8:40 AM EDT Routine [facility] BCP OB [address] [place] [address] [place] [address] Kristan Fish PA [address] [place], [place] [address] [place] [address] [place], [facility]11 05/31/2025 10:50 AM EDT Routine [facility] BCP OB [address] [place], [place] [address] [address] Kristan Fish, PA [address] [place] [address] Dr [place], [facility]11 (work) documented as of this encounter Visit Diagnoses Not on filedocumented in this encounter
--- OUTSIDE RECORDS SUMMARY | 2025-05-23 15:06 | XMS_ITS | Encounter Summary ---
Author Organization [facility] Address [address] [place] [address] Care Team Providers Care Urgent Care Nurse Practitioner Name Role Phone Unavailable Primary Care Provider Unavailabl e Encounter Details Date Type Department Care Team (Late Contact Info) Description 12/02/2024 Abstract [facility] BCP OB [address] [place] [address] Nolan Cortes DO 102 [address] Jeffries, [facility]11 Social History Tobacco Use Types Packs/Day Years [...] BCP OB [address] [place] [address] Kristan Fish PA 102 [place] [address] 05/31/2025 10:50 AM EDT Routine [facility] BCP OB [address] [place] [address] Kristan Fish PA [address] [place] [address] Dr [place], [facility]11 documented as of this encounter Visit Diagnoses Not on filedocumented in this encounter
--- OUTSIDE RECORDS SUMMARY | 2025-05-23 15:06 | XMS_ITS | Encounter Summary ---
Author Organization [facility] Address [address] [place] [address] Care Team Providers Care Cottage Attendant Name Role Phone Unavailable Primary Care Provider Unavailabl e Encounter Details Date Type Department Care Team (Late Contact Info) Description 03/26/2024 Orders Only [facility] BCP OB [address] [place] [address] [place] [address] Bertha Quevedo LPN [address] [facility] [address] PEREZ [facility]11 Social History Tobacco Use [...] 8:40 AM EDT Routine [facility]OM[facility] BCP OB [address] [place] [address] [place] [address] Kristan Fish PA [address] [place] [address] Dr [place], [facility]11 05/31/2025 10:50 AM EDT Routine [facility] BCP OB [address] [place] [address] [place] [address] Kristan Fish, PA [address] [place] [address] Dr [place], [facility]11 documented as of this encounter Procedures Procedure [...]
--- OUTSIDE RECORDS SUMMARY | 2025-05-23 15:06 | XMS_ITS | Encounter Summary ---
Author Organization [facility] Address [address] [place] [address] Care Team Providers Care Leather Tacker Name Role Phone Unavailable Primary Care Provider Unavailabl e Encounter Details Date Type Department Care Team (Late Contact Info) Description 05/17/2025 Bamboo flowsheet [facility] BCP OB [address] [facility] [address] Nolan Cortes DO [address] [facility] [address] Rocael Jeffries, [facility] [...] AM EDT Routine [facility] BCP OB [address] [place] [address] Kristan Fish PA [address] [place], [facility]11 05/31/2025 10:50 AM EDT Routine NOMS BCP OB [address] [place], [place] [address] [address] Kristan Fish PA [address] [place] [address] [place] [address] documented as of this encounter Visit Diagnoses Not on filedocumented in this encounter
--- OUTSIDE RECORDS SUMMARY | 2025-05-23 15:06 | XMS_ITS | Encounter Summary ---
Author Organization [facility] Address [address] [place] [address] Care Team Providers Care Gold Frame Assembler Name Role Phone Unavailable Primary Care Provider Unavailabl e Encounter Details Date Type Department Care Team (Late Contact Info) Description 08/21/2023 Abstract [facility] BCP OB 102 [facility] [place] [address] Nolan Cortes DO [address] [place] [address] Dr Rocael Jeffries, [facility]11 Social History Tobacco Use Types [...] 8:40 AM EDT Routine NOMS BCP OB [address] [place] [address] [place] [address] Kristan Fish PA [address] [place], [place] [address] [place] [address] [place], [facility]11 05/31/2025 10:50 AM EDT Routine NOMS BCP OB [address] [place], [place] [address] [address] Kristan Fish, PA [address] [place] [address] Dr [place], [facility]11 (work) documented as of this encounter Visit Diagnoses Not on filedocumented in this encounter
--- OUTSIDE RECORDS SUMMARY | 2025-05-23 15:06 | XMS_ITS | Encounter Summary ---
Demographics Address [address] [place] [address] Mobile Phone Home Phone Email Address Email Address Preferred Language Hebrew Marital Status Scientologist Affiliation Unknown Race White Ethnic Group Not or Lati no Author Organization [facility]140Fire tem Address [id number] [address] [place] [address] Support Name Relationship Address Phone Dariusz Purvis Emergency Contact [address] [place] [address] Sravani Villasenor Personal Relationship [address] [place] [address] Laura Cope Personal Relationship Unknown [phone] Care Team Providers Care Manager Truck Name Role Phone Eli Azul MD Primary Care Provider + Encounter Details Date Type Department Care Team (Late st Contact Info) Description 02/07/2025 Orders Only Maternal- Medicine at [facility] [address] [place] [id number] Ref Prov, [place] [address] Social History Tobacco Use Types Packs/Day Years [...] 10:00 AM EDT Telemedicine Maternal- Medicine at [facility] [address] [place] [address] Kenya Acosta PA-C [address] [address] documented as of this encounter Procedures Procedure [...] 1:52 PM EST) Anatomical Region Laterality Modality OB-ASP NET PROGRAMMER Ultrasound us Not In System Ref Prov IMG US ORDERABLES Final R esult documented in this encounter Visit Diagnoses Not on filedocumented in this encounter Care Teams Manager Truck Relationship Specialty Start Date End Date Eli Azul MD PCP - General Pediatrics 06/23/18 documented as of this encounter
--- OUTSIDE RECORDS SUMMARY | 2025-05-23 15:06 | XMS_ITS | Encounter Summary ---
Author Organization [facility] Address [address] [place] [address] Care Team Providers Care College Or University Department Head Name Role Phone Unavailable Primary Care Provider Unavailabl e Encounter Details Date Type Department Care Team (Late st Contact Info) Description 04/28/2024 Clinisync Result Encounter NOMS External Department Unsolicited Thomas Cortes DO [address] [facility] [address] Rocael Jeffries, [place] [address] Social History Tobacco Use Types Packs/Day Years [...] 8:40 AM EDT Routine [facility] BCP OB [address] [place] [address] [place] [address] Kristan Fish PA [address] [place], [place] [address] [place] [address] [place], [facility]11 05/31/2025 10:50 AM EDT Routine [facility] BCP OB [address] [place] [address] Kristan Fish PA [address] [place] [address] Dr [place], [facility]11 documented as of this encounter Procedures Procedure Name Priority Date/Time Associated Diagnosis Comments US PELVIS W/ TRANSVAGINAL 04/28/2024 1:16 PM EDT documented in this encounter Results * US PELVIS W/ TRANSVAGINAL (04/28/2024 1:16 PM EDT) Anatomical Region Laterality Modality Other 04/28/2024 1:16 PM EDT Narrative 04/28/2024 1:19 [place] [address] Ultrasound Report Signed Patient: KIRA PURVIS MR#: [id number] : 1990 Acct:[id number] Age/Sex: 33 / F ADM Date: 04/27/24 Loc: US Attending Dr: Thomas Cortes D.O. Ordering Physician: Thomas Cortes D.O. Date of Service: 04/27/24 Procedure(s): US pelvis w/ transvaginal Accession Number(s): [id number] cc: Thomas Cortes D.O.; Physician,Non-Staff Nikky [place] [address] Patient Name: KIRA PURVIS MRN: [id number] date: 1990 Sex: F Assigned Patient Location: Current Patient Location: Accession/Order Number: [id number] Exam Date: 04/27/2024 14:00 Report Date: 04/28/2024 [...] Signed By: 04/28/24 1319 DD/ 1316 TD/TT: Director Of Retail Merchandising: Procedure Note Radiology, Radiologist, MD - 04/28/2024 [place] [address] Ultrasound Report Signed Patient: KIRA PURVIS LMR#: [id number] : 1990Acct:[id number] Age/Sex: 33 / FADM Date: 04/27/24 Loc: US Attending Dr: Thomas Cortes D.O. Ordering Physician: Thomas Cortes D.O. Date of Service: 04/27/24 Procedure(s): US pelvis w/ transvaginal Accession Number(s): [id number] cc: Thomas Cortes D.O.; Physician,Non-Staff Nikky The [address] [address] Patient Name: KIRA PURVIS MRN: [facility]:[id number] date: 1990 Sex: F Assigned Patient Location: US Current Patient Location: Accession/Order Number: [id number] Exam Date: 04/27/2024 14:00 Report Date: 04/28/2024 [...] M.D. Signed By:04/28/24 1319 DD/ 1316 TD/TT: Director Of Retail Merchandising: us Thomas Sebastian DO [facility] Final Result documented in this encounter Visit Diagnoses Not on filedocumented in this encounter
--- OUTSIDE RECORDS SUMMARY | 2025-05-23 15:06 | XMS_ITS | Encounter Summary ---
Author Organization [facility] Address [address] [place] [address] Care Team Providers Care Can Maker Name Role Phone Unavailable Primary Care Provider Unavailabl e Encounter Details Date Type Department Care Team (Late Contact Info) Description 07/04/2023 Abstract [facility] BCP OB 102 [facility] [place] [address] Nolan Cortes DO [address] [place] [address] Dr Rocael Jeffries, [facility]11 Social History Tobacco Use Types Packs/Day [...] EDT Routine [facility] BCP OB 102 [facility] [address] Kristan Fish PA [address] [place], [facility]11 05/31/2025 10:50 AM EDT Routine [facility]OM[facility] BCP OB [address] [place] [address] Kristan Fish PA [address] [facility] [place] [address] documented as of this encounter Visit Diagnoses Not on filedocumented in this encounter
--- OUTSIDE RECORDS SUMMARY | 2025-05-23 15:06 | XMS_ITS | Encounter Summary ---
Author Organization [facility] Address [address] [place] [address] Care Team Providers Care Patient Access Name Role Phone Unavailable Primary Care Provider Unavailabl e Encounter Details Date Type Department Care Team (Late Contact Info) Description 12/01/2024 Abstract [facility] BCP OB [address] [place] [address] Nolan Cortes DO 102 [address] Jeffries, [facility]11 [...] [place] [address] Kristan Fish PA [address] [place] [address] Dr [place], [facility]11 documented as of this encounter Visit Diagnoses Not on filedocumented in this encounter
--- OUTSIDE RECORDS SUMMARY | 2025-05-23 15:06 | XMS_ITS | Encounter Summary ---
Author Organization [facility] Address [address] [place] [address] Care Team Providers Care Manager Lsw Name Role Phone Unavailable Primary Care Provider Unavailabl e Encounter Details Date Type Department Care Team (Late Contact Info) Description 12/08/2024 Abstract [facility] BCP OB [address] [place] [address] Nolan Cortes DO 102 [address] Jeffries, [...] BCP OB [address] [place] [address] Kristan Fish PA [address] [place], [place] [address] 05/31/2025 10:50 AM EDT Routine [facility] BCP OB [address] [place] [address] Kristan Fish PA [address] [place] [address] Dr [place], [facility]11 documented as of this encounter Visit Diagnoses Not on filedocumented in this encounter
--- OUTSIDE RECORDS SUMMARY | 2025-05-23 15:07 | XMS_ITS | Encounter Summary ---
Author Organization [facility] Address [address] [place] [address] Care Team Providers Care Card Placer Name Role Phone Unavailable Primary Care Provider Unavailabl e Encounter Details Date Type Department Care Team (Late st Contact Info) Description 05/09/2025 Clinisync Result Encounter NOMS External Department Unsolicited Thomas Cortes DO [address] [place] Donna Jeffries, [facility]11 Social History [...] OB [address] [facility] [place] [address] Kristan Fish PA [address] [place], [place] [address] 05/31/2025 10:50 AM EDT Routine [facility] BCP OB 102 [facility] [place] [address] Kristan Fish, PA [address] [facility] [address] [place], [facility]11 [phone] (work) documented as of this encounter Procedures Procedure Name Priority Date/Time Associated Diagnosis Comments US OB BPP W NON-STRESS 05/09/2025 3:51 PM EDT documented in this encounter Results * US OB BPP W NON-STRESS (05/09/2025 3:51 PM EDT) Anatomical Region Laterality Modality Other 05/09/2025 3:51 PM EDT Narrative 05/09/2025 3:54 [place] [address] Ultrasound Report Signed Patient: KIRA PURVIS MR#: [id number] : 1990 Acct:[id number] Age/Sex: 34 / F ADM Date: 05/09/25 Loc: [facility] 250-[address]: Thomas Cortes D.O. Ordering Physician: Thomas Cortes D.O. Date of Service: 05/09/25 Procedure(s): US OB BPP w non-stress Accession Number(s): [id number] cc: Thomas Cortes D.O.; Physician,Non-Staff M.Daisy [address] [address] Patient Name: KIRA PURVIS MRN: [id number] date: 1990 Sex: F Assigned Patient Location: [facility] Current Patient Location: [facility] Accession/Order Number: [id number] Exam Date: 05/09/2025 15:50 Report Date: 05/09/2025 15:51 At the request of: THOMAS CORTES DO Procedure: US OB BPP w non-stress Biophysical profile. Reason for exam: Gestational diabetes. COMPARISON: BDP 05/02/2025. TECHNIQUE: Transabdominal imaging of the gravid uterus was obtained. FINDINGS: Flat Locker reports a BPP of 8 out of 8. BHAVANI is normal at 13.2 cm. heart rate 161 bpm. US/US OB BPP w non-stress Impression: BPP 8 out of 8. Impression dictated by: Jacinto Rivas Jr., D.O. 05/09/2025 3:51 PM Dictation Location: [place] [address] Electronically authenticated by: [id number] Y Date: 05/09/2025 15:51 Dictated By: Jacinto Rivas M.D. Signed By: 05/09/25 1554 DD/ 1551 TD/TT: Sped Teacher: Procedure Note Radiology, Radiologist, MD - 05/09/2025 [place] [address] Ultrasound Report Signed Patient: KIRA PURVIS LMR#: [id number] : 1990Acct:[id number] Age/Sex: 34 / FADM Date: 05/09/25 Loc: [facility] 250-[address]: Thomas Cortes D.O. Ordering Physician: Thomas Cortes D.O. Date of Service: 05/09/25 Procedure(s): US OB BPP w non-stress Accession Number(s): [id number] cc: Thomas Cortes D.O.; Physician,Non-Staff Nikky The [place] [id number] Patient Name: KIRA PURVIS MRN: [id number] date: 1990 Sex: F Assigned Patient Location: [facility] Current Patient Location: [facility] Accession/Order Number: [id number] Exam Date: 05/09/2025 15:50 Report Date: 05/09/2025 15:51 At the request of: THOMAS CORTES DO Procedure: US OB BPP w non-stress Biophysical profile. Reason for exam: Gestational diabetes. COMPARISON: BDP 05/02/2025. TECHNIQUE: Transabdominal imaging of the gravid uterus was obtained. FINDINGS: [employer] reports a BPP of 8 out of 8. BHAVANI is normal at 13.2cm. heart rate 161 bpm. US/US OB BPP w non-stress Impression: BPP 8 out of 8. Impression dictated by: Jacinto Rivas Jr., D.O. 05/09/2025 3:51 PM Dictation Location: [place] [address] Electronically authenticated by: [id number] Y Date: 5:51 Dictated By: Jacinto Rivas M.D. Signed By:05/09/25 1554 DD/ 1551 TD/TT: Sped Teacher: us Thomas Cortes DO [facility] Final Result documented in this encounter Visit Diagnoses Not on filedocumented in this encounter
--- OUTSIDE RECORDS SUMMARY | 2025-05-23 15:07 | XMS_ITS | Encounter Summary ---
Author Organization [facility] Address [address] [place] [address] Care Team Providers Care Financial Services Internship Name Role Phone Unavailable Primary Care Provider Unavailabl e Encounter Details Date Type Department Care Team (Late Contact Info) Description 05/23/2025 Abstract [facility] BCP OB [address] [place] [address] Nolan Cortes DO [address] Jeffries, [facility]11 Social History Tobacco Use Types [...] BCP OB [address] [place] [address] Kristan Fish PA [address] [place] [address] 05/31/2025 10:50 AM EDT Routine [facility] BCP OB [address] [place] [address] Kristan Fish PA [address] [place] [address] Dr [place], [facility]11 documented as of this encounter Visit Diagnoses Not on filedocumented in this encounter
--- OUTSIDE RECORDS SUMMARY | 2025-05-23 15:07 | XMS_ITS | Encounter Summary ---
Author Organization [facility] Address [address] [place] [address] Care Team Providers Care Dcs Engineer Name Role Phone Unavailable Primary Care Provider Unavailabl e Encounter Details Date Type Department Care Team (Late st Contact Info) Description 05/23/2025 Telephone [facility] [address] [place] [address] Danay Ortega LPN [address] [place] [address] Social History Tobacco Use Types Packs/Day [...] encounter Miscellaneous Notes * Telephone Encounter - Danay Ortega, RADHA - 05/23/2025 1:07 PM EDT Hi, this is Charlene Grewal. My date of is [birth year]. You can reach me at [phone]. Over the weekend, I noticed that my feet and ankles got extremely swollen and they are still extremely swollen. It is to that point where I can hardly put my shoes on and it is not normal for me and and I was just seeing if I needed to be seen or not. If you could give me a call back, that would be great. Thank you. Jill. I told pt that I would have her come in and be seen to make sure everything is good. PVU documented in this encounter Plan of Treatment Upcoming Encounters Date Type Department Care Team (Late st Contact Info) Description 05/24/2025 8:40 AM EDT Routine [facility] [address] [place] [address] Kristan Fish, PA [address] [facility] [place] [address] 05/31/2025 10:50 AM EDT Routine [facility] [address] [facility] [place] [place] [address] Kristan Fish, PA [address] [facility] [place] [address] documented as of this encounter Visit Diagnoses Not on filedocumented in this encounter
--- OUTSIDE RECORDS SUMMARY | 2025-05-23 15:07 | XMS_ITS | Encounter Summary ---
Author Organization [facility] Address [address] [place] [address] Care Team Providers Care Warpman Name Role Phone Unavailable Primary Care Provider Unavailabl e Encounter Details Date Type Department Care Team (Late st Contact Info) Description 04/21/2023 Abstract [facility] [address] [facility] [place] [address] Nolan Cortes DO [address] [place] [address] Dr Rocael Jeffries, [facility]11 Social History Tobacco Use Types [...] 8:40 AM EDT Routine [facility] OB [address] [place] [address] [place] [address] Kristan Fish PA [address] [place] [address] Dr [place], [facility]11 05/31/2025 10:50 AM EDT Routine [facility] OB [address] [place], [place] [address] [address] Kristan Fish PA [address] [place] [address] Dr [place], [facility]11 documented as of this encounter Visit Diagnoses Not on filedocumented in this encounter
--- OUTSIDE RECORDS SUMMARY | 2025-05-23 15:07 | XMS_ITS | Clinical Summary ---
Author Organization [facility] Address [address] [place] [address] Care Team Providers Care Flame Hardening Machine Operator Name Role Phone Unavailable Primary Care Provider Unavailabl e Allergies No known active allergies Medications Alcohol Swabs (Alcohol Prep Pad) 70 % padsIndications: Gestational diabetes mellitus (GDM), antepartum, gestational diabetes method of control unspecified ([facility]),Elevat ed glucose tolerance test Apply 1 Pad topically Daily Use four times daily to check FSBS. 150 each 3 5 Active MV & Min w/FA-DHA ( Adult Gummy/DHA/FA) 0.4-25 MG chewable tablet Chew 1 each Daily 5 Active aspirin 81 MG EC tablet Take 81 mg by mouth Daily Active Blood Glucose Monitoring Suppl (Accu-Chek Guide Ar) w/Device kitIndications:G estational diabetes mellitus (GDM), antepartum, gestational diabetes method of control unspecified ([facility]),Elevat ed glucose tolerance test USE TO CHECK [...] Benign essential hypertensio n in obstetric context ([facility]) 04/18/2023 Exposure to cat feces 04/18/2023 Gestational diabetes ([facility]) 04/18/2023 Nausea 04/18/2023 History of delivery 02/24/2023 Estimated Date of Delivery Comme nts Yes 06/24/2025 Based on last me nstrual period of 09/17/2024 Encounters Date Type Department Care Team Description 05/23/2025 Telephone [facility] OB [address] [place] [address] [place] [phone] Danay Ortega LPN 05/23/2025 Abstract [facility] OB [address] [facility] [place] [address] Thomas Cortes, DO 05/23/2025 Abstract [facility] OB [address] [place] [address] Thomas Cortes, DO 05/17/2025 11:40 AM EDT Routine [facility] OB [address] [place] [address] [place] [address] Thomas Cortes, DO Third trimester ([facility]); 34 weeks gestation of ([facility]); Gestational diabetes mellitus (GDM), antepartum, gestational diabetes method of control unspecified ([facility]) 05/17/2025 Bamboo flowsheet [facility] OB [address] [place] [address] [place] [address] Thomas Cortes, DO 05/16/2025 Clinisync Result Encounter NOMS External Department Unsolicited Thomas Cortes, DO 05/09/2025 Clinisync Result Encounter NOMS External Department Unsolicited Thomas Cortes, DO 05/02/2025 10:50 AM EDT Routine [facility] OB [address] [place] [address] [place] [address] Kristan Fish PA 32 weeks gestation of ([facility]); Third trimester ([facility]) 05/02/2025 Clinisync Result Encounter [facility]OMS External Department Unsolicited Thomas Cortes, DO 05/02/2025 Bamboo flowsheet [facility] OB [address] [place] [address] [place] [address] Kristan Fish PA 04/25/2025 Clinisync Result Encounter NOMS External Department Unsolicited Thomas Cortes, DO 04/18/2025 1:00 PM EDT Routine NOM[facility] [address] [place] [address] Thomas Cortes, 30 weeks gestation of ([facility]); Third trimester ([facility]) 04/18/2025 Clinisync Result Encounter NOMS External Department Unsolicited Thomas Cortes, DO 04/18/2025 Bamboo flowsheet NOM[facility] [address] [place] [address] Thomas Cortes, DO 04/11/2025 Clinisync Result Encounter NOMS External Department Unsolicited Thomas Cortes, DO 04/11/2025 Travel 04/06/2025 Abstract [facility] [address] [place] [address] Thomas Cortes, DO 04/05/2025 1:50 PM EDT Routine NOM[facility] [address] [place] [address] Thomas Cortes, Third trimester ([facility]); 28 weeks gestation of ([facility]); Gestational diabetes mellitus (GDM), antepartum, gestational diabetes method of control unspecified ([facility]); H/O: hypertension 04/05/2025 Bamboo flowsheet NOM[facility] [address] [place] [address] Thomas Cortes, 03/14/2025 1:50 PM EDT Routine NOM[facility] [address] [place] [address] Thmoas Cortes, Second trimester ([facility]); 25 weeks gestation of ([facility]) 03/14/2025 Bamboo flowsheet NOM[facility] [address] [place] [address] Thomas Cortes, 03/08/[address] [address] [place] [address] Suze Hendrix MA 03/07/2025 Abstract [facility] [address] [place] [address] Thomas Cortes DO 03/07/2025 Clinisync Result Encounter NOMS External Department Unsolicited Thomas Cortes DO 02/21/2025 1:20 PM EDT Routine [facility] [place] [address] [place] [address] Thomas Cortes DO Second trimester ([facility]); 22 weeks gestation of ([facility]) 02/21/2025 Bamboo flowsheet NOM[facility] [address] [place] [address] Thomas Cortes DO from Last 3 Months [...] [facility] [place] [address] Kristan Fish PA [address] [facility] [place] [address] 05/31/2025 10:50 AM EDT Routine [facility] [address] [facility] [place] [address] Kristan Fish PA [address] [facility] [place] [address] Procedures Procedure Name Priority Date/Time Associated Diagnosis Comments US OB BPP W NON-STRESS 05/16/2025 11:00 PM EDT US OB BPP W NON-STRESS 05/09/2025 3:51 PM EDT US OB BPP W NON-STRESS 05/02/2025 4:30 PM EDT POCT URINALYSIS DIPSTICK Routine 05/02/2025 11:00 AM EDT 32 weeks gestation of ([facility]) Third trimester ([facility]) US OB BPP W NON-STRESS 04/25/2025 9:36 PM EDT US OB BPP W NON-STRESS 04/18/2025 4:07 PM EDT POCT URINALYSIS DIPSTICK Routine 04/18/2025 1:14 PM EDT 30 weeks gestation of ([facility]) Third trimester ([facility]) US OB BPP W NON-STRESS 04/11/2025 4:05 PM EDT POCT URINALYSIS DIPSTICK Routine 04/05/2025 2:19 PM EDT Third trimester ([facility]) US OB INCOMPLETE ANATOMY 03/07/2025 12:42 PM EDT POCT URINALYSIS DIPSTICK Routine 02/21/2025 2:08 PM EDT Second trimester ([facility]) from Last 3 Months Results * US OB BPP W NON-STRESS (05/16/2025 11:00 PM EDT) Only the most recent of6 resultswithin the time period is included. Anatomical Region Laterality Modality Other 05/16/2025 11:0 0 PM EDT Narrative 05/16/2025 11:03 [place] [address] Ultrasound Report Signed Patient: CHARLENE PURVIS MR#: [id number] : 1990 Acct:[id number] Age/Sex: 34 / F ADM Date: 05/16/25 Loc: US Attending Dr: Thomas Cortes D.O. Ordering Physician: Thomas Cortes D.O. Date of Service: 05/16/25 Procedure(s): US OB BPP w non-stress Accession Number(s): [id number] cc: Thomas Cortes D.O.; Physician,Non-Staff M.DMya The [place] [address] Patient Name: CHARLENE PURVIS MRN: [facility]:[id number] date: 1990 Sex: F Assigned Patient Location: US Current Patient Location: Accession/Order Number: [id number] Exam Date: 05/16/2025 22:56 Report Date: 05/16/2025 [...] PM Dictation Location: RADIO-PC-29 Electronically authenticated by: [id number] Y Date: 05/16/2025 23:00 Dictated By: Mehul Brewer M.D. Signed By: 05/16/252302 DD/ 99 TD/TT: Business Support Assistant: Procedure Note Radiology, Radiologist, MD - 05/16/2025 [place] [address] Ultrasound Report Signed Patient: CHARLENE PURVIS LMR#: [id number] : 1990Acct:[id number] Age/Sex: 34 / FADM Date: 05/16/25 Loc: US Attending Dr: Thomas Cortes D.O. Ordering Physician: Thomas Cortes D.O. Date of Service: 05/16/25 Procedure(s): US OB BPP w non-stress Accession Number(s): [id number] cc: Thomas Cortes D.O.; Physician,Non-Staff Nikky The [address] [address] Patient Name: CHARLENE PURVIS MRN: [id number] date: 1990 Sex: F Assigned Patient Location: US Current Patient Location: Accession/Order Number: [id number] Exam Date: 05/16/2025 22:56 Report Date: 05/16/2025 [...] Brewer M.D. 05/16/2025 11:00 PM Dictation Location: RADIOIQumulusPC-29 Electronically authenticated by: [id number] Y Date: 3:00 Dictated By: Mehul Brewer M.D. Signed By:05/16/252302 DD/ 99 TD/TT: Business Support Assistant: us Thomas Cortes DO [facility] Final [...] EDT Narrative 03/07/2025 12:44 PM EDT The [address] [address] Ultrasound Report Signed Patient: CHARLENE PURVIS MR#: [id number] : 1990 Acct:[id number] Age/Sex: 34 / F ADM Date: 03/05/25 Loc: US Attending Dr: Thomas Cortes D.O. Ordering Physician: Thomas Cortes D.O. Date of Service: 03/05/25 Procedure(s): US OB incomplete anatomy Accession Number(s): [id number] cc: Thomas Cortes D.O.; Physician,Non-Staff Nikky The [place] [id number] Patient Name: CHARLENE PURVIS MRN: [id number] date: 1990 Sex: F Assigned Patient Location: US Current Patient Location: Accession/Order Number: [id number] Exam Date: 03/07/2025 12:39 Report Date: 03/07/2025 [...] Jr., D.O. 03/07/2025 12:42 PM Dictation Location: [place] [address] Electronically authenticated by: [id number] Y Date: 03/07/2025 12:42 Dictated By: Jacinto Rivas M.D. Signed By: 03/07/25 1244 DD/ 1242 TD/TT: Business Support Assistant: Procedure Note Radiology, Radiologist, MD - 03/07/2025 [place] [address] Ultrasound Report Signed Patient: CHARLENE PURVIS LMR#: [id number] : 1990Acct:[id number] Age/Sex: 34 / FADM Date: 03/05/25 Loc: US Attending Dr: Thomas Cortes D.O. Ordering Physician: Thomas Cortes D.O. Date of Service: 03/05/25 Procedure(s): US OB incomplete anatomy Accession Number(s): [id number] cc: Thomas Cortes D.O.; Physician,Non-Staff Nikky The [address] [address] Patient Name: CHARLENE PURVIS MRN: [id number] date: 1990 Sex: F Assigned Patient Location: US Current Patient Location: Accession/Order Number: [id number] Exam Date: 03/07/2025 12:39 Report Date: 03/07/2025 [...] cannot be visualized. Impression dictated by: Jacinto Riavs Jr., D.O. 03/07/2025 12:42 PM Dictation Location: [place] [address] Electronically authenticated by: [id number] Y Date: 2:42 Dictated By: Jacinto Rivas M.D. Signed By:03/07/25 1244 DD/ 1242 TD/TT: Business Support Assistant: Thomas Cortes DO [facility] Final Result from Last 3 Months Insurance
--- OUTSIDE RECORDS SUMMARY | 2025-05-23 15:07 | XMS_ITS | Encounter Summary ---
Demographics Address [address] [place] [address] Mobile Phone Home Phone Email Address Email Address Preferred Language Danish Marital Status Congregational Affiliation Unknown Race White Ethnic Group Not or Lati no Author Organization [facility] Address [id number] [address] [place] [address] Support Name Relationship Address Phone Dariusz Purvis Emergency Contact [address] [place] [address] Sravani Villasenor Personal Relationship [address] [place] [address] Laura Cope Personal Relationship Unknown [phone] Care Team Providers Care Jailer Name Role Phone Eli Azul MD Primary Care Provider + Encounter Details Date Type Department Care Team (Late st Contact Info) Description 03/15/2025 Orders Only Maternal- Medicine at [facility] [address] [place] [address] Rufina Hurd CMA Social History Tobacco Use [...] Medicine at [facility] [address] [place] [address] Kenya Acosta, [facility] [address] [address] documented as of this encounter Visit Diagnoses Not on filedocumented in this encounter Care Teams Jailer Relationship Specialty Start Date End Date Eli Azul MD PCP - General Pediatrics 06/23/18 documented as of this encounter
--- OUTSIDE RECORDS SUMMARY | 2025-05-23 15:07 | XMS_ITS | Encounter Summary ---
Author Organization [facility] Address [address] [place] [address] Care Team Providers Care Licensing Services Clerk Name Role Phone Unavailable Primary Care Provider Unavailabl e Encounter Details Date Type Department Care Team (Late Contact Info) Description 01/27/2025 Abstract [facility] OB [address] [place] [address] Nolan Cortes DO [address] Jeffries, [facility]11 Social History Tobacco Use Types Packs/Day [...] BCP OB [address] [place] [address] Kristan Fish PA [address] [place] [address] 05/31/2025 10:50 AM EDT Routine [facility] OB [address] [place] [address] Kristan Fish PA [address] [place] [address] Dr [place], [facility]11 documented as of this encounter Visit Diagnoses Not on filedocumented in this encounter
--- OUTSIDE RECORDS SUMMARY | 2025-05-23 15:07 | XMS_ITS | Encounter Summary ---
Author Organization [facility] Address [address] [place] [address] Care Team Providers Care Blanket Winder Helper Name Role Phone Unavailable Primary Care Provider Unavailabl e Encounter Details Date Type Department Care Team (Late st Contact Info) Description 04/14/2023 Abstract [facility] OB [address] [facility] [place] [address] Nolan Cortes DO [address] [place] [address] Dr Rocael Jeffries, [facility]11 Social History Tobacco Use Types [...] 8:40 AM EDT Routine [facility] OB [address] [place] [address] [place] [address] Kristan Fish PA [address] [place] [address] Dr [place], [facility]11 05/31/2025 10:50 AM EDT Routine [facility] OB [address] [place], [place] [address] [address] Kristan Fish PA [address] [place] [address] Dr [place], [facility]11 documented as of this encounter Visit Diagnoses Not on filedocumented in this encounter
--- OUTSIDE RECORDS SUMMARY | 2025-05-23 15:07 | XMS_ITS | Encounter Summary ---
Author Organization [facility] Address [address] [place] [address] Care Team Providers Care Digital Forensic Examiner Name Role Phone Unavailable Primary Care Provider [...] [place] [address] Kristan Fish PA [address] [place] [address] Dr [place], [facility]11 documented as of this encounter Visit Diagnoses Not on filedocumented in this encounter
--- OUTSIDE RECORDS SUMMARY | 2025-05-23 15:07 | XMS_ITS | Encounter Summary ---
Author Organization [facility] Address [address] [place] [address] Care Team Providers Care Service Sprinkler Helper Name Role Phone Unavailable Primary Care Provider Unavailabl e Encounter Details Date Type Department Care Team (Late Contact Info) Description 05/23/2025 Abstract [facility] B[facility] OB [address] [place] [address] Nolan Cortes DO [address]ries, [facility]11 Social History Tobacco Use Types Packs/Day [...] BCP OB [address] [place] [address] Kristan Fish PA [address] [place] [address] 05/31/2025 10:50 AM EDT Routine [facility] B[facility] OB [address] [place] [address] Kristan Fish PA [address] [place] [address] Dr [place], [facility]11 documented as of this encounter Visit Diagnoses Not on filedocumented in this encounter
--- OUTSIDE RECORDS SUMMARY | 2025-05-23 15:07 | XMS_ITS | Encounter Summary ---
Author Organization [facility] Address [address] [place] [address] Care Team Providers Care Cover Maker Name Role Phone Unavailable Primary Care Provider Unavailabl e Encounter Details Date Type Department Care Team (Late Contact Info) Description 03/07/2025 Abstract [facility] BCP OB [address] [place] [address] Nolan Cortes DO [address], [facility]11 Social History Tobacco Use Types Packs/Day [...] BCP OB [address] [place] [address] Kristan Fish PA [address] [place] [address] 05/31/2025 10:50 AM EDT Routine [facility] B[facility] OB [address] [place] [address] Kristan Fish PA [address] [place] [address] Dr [place], [facility]11 documented as of this encounter Visit Diagnoses Not on filedocumented in this encounter
--- OUTSIDE RECORDS SUMMARY | 2025-05-23 15:07 | XMS_ITS | Encounter Summary ---
Author Organization [facility] Address [address] [place] [address] Care Team Providers Care Vp Site Name Role Phone Unavailable Primary Care Provider Unavailabl e Encounter Details Date Type Department Care Team (Late Contact Info) Description 05/20/2023 Abstract [facility] OB [address] [facility] [place] [place] [address] Nolan Cortes DO [address] [place] [address] Dr Rocael Jeffries, [facility]11 Social History Tobacco Use Types Packs/Day [...] 8:40 AM EDT Routine [facility] B[facility] OB [address] [place] [address] [place] [address] Kristan Fish PA [address] [place], [place] [address] [place] [address] [place], [facility]11 05/31/2025 10:50 AM EDT Routine [facility] BCP OB [address] [place], [place] [address] [address] Kristan Fish, PA [address] [place] [address] Dr [place], [facility]11 (work) documented as of this encounter Visit Diagnoses Not on filedocumented in this encounter
--- OUTSIDE RECORDS SUMMARY | 2025-05-23 15:07 | XMS_ITS | Encounter Summary ---
Author Organization [facility] Address [address] [place] [address] Care Team Providers Care Hand Leather Trimmer Name Role Phone Unavailable Primary Care Provider Unavailabl e Encounter Details Date Type Department Care Team (Late st Contact Info) Description 04/18/2023 Abstract [facility] OB 102 [facility] [place] [address] Nolan Cortes DO [address] [place] [address] Dr Rocael Jeffries, [facility]11 Social [...] 8:40 AM EDT Routine [facility] BCP OB [address] [place] [address] [place] [address] Kristan Fish PA [address] [place] [address] Dr [place], [facility]11 05/31/2025 10:50 AM EDT Routine [facility] OB [address] [place], [place] [address] [address] Kristan Fish PA [address] [place] [address] Dr [place], [facility]11 documented as of this encounter Visit Diagnoses Not on filedocumented in this encounter
--- OUTSIDE RECORDS SUMMARY | 2025-05-23 15:07 | XMS_ITS | Encounter Summary ---
Author Organization [facility] Address [address] [place] [address] Care Team Providers Care Business Initiatives Manager Name Role Phone Unavailable Primary Care Provider Unavailabl e Encounter Details Date Type Department Care Team (Late Contact Info) Description 04/24/2023 Abstract [facility] OB 102 [facility] [place] [address] Nolan Cortes DO [address] [place] [address] Dr Rocael Jeffries, [facility]11 Social History Tobacco Use [...] AM EDT Routine N[facility] BCP OB [address] [place] [address] [place] [address] Kristan Fish PA [address] [place], [place] [address] [place] [address] [place], [facility]11 05/31/2025 10:50 AM EDT Routine [facility] BCP OB [address] [place], [place] [address] [address] Krsitan Fish, PA [address] [place] [address] Dr [place], [facility]11 (work) documented as of this encounter Visit Diagnoses Not on filedocumented in this encounter
--- OUTSIDE RECORDS SUMMARY | 2025-05-23 15:07 | XMS_ITS | Encounter Summary ---
Author Organization [facility] Address [address] [place] [address] Care Team Providers Care Electrical Machinist Name Role Phone Unavailable Primary Care Provider Unavailabl e Encounter Details Date Type Department Care Team (Late Contact Info) Description 07/18/2023 Clinisync Result Encounter NOMS External Department Unsolicited Thomas Cortes DO [address] [facility] [address] Rocael Jeffries, [facility]11 Social History Tobacco Use Types [...] Upcoming Encounters Date Type Department Care Team ([facility] Contact Info) Description 05/24/2025 8:40 AM EDT Routine [facility] BCP OB [address] [place] [address] [place] [address] Kristan Fish PA [address] [facility] [address] [place], [facility]11 05/31/2025 10:50 AM EDT Routine [facility] BCP OB [address] [place], [place] [address] [address] Kristan Fish PA [address] [place] [address] Dr Cardona Rochelle, [place] [address] documented as of this encounter Procedures Procedure Name Priority Date/Time Associated Diagnosis Comments US OB BPP W NON-STRESS 07/18/2023 3:07 PM EDT documented in this encounter Results * US OB BPP W NON-STRESS (07/18/2023 3:07 PM EDT) Anatomical Region Laterality Modality Other 07/18/2023 3:07 PM EDT Narrative 07/18/2023 3:07 PM EDT [address] [address] Ultrasound Report Signed Patient: KIRA PURVIS MR#: [id number] 06 : 1990 Acct:[id number] Age/Sex: 32 / F ADM Date: 07/17/23 Loc: US Attending Dr: Thomas Cortes D.O. Ordering Physician: Thomas Cortes D.O. Date of Service: 07/17/23 Procedure(s): US OB BPP w non-stress Accession Number(s): [id number] cc: Thomas Cortes D.O.; Physician,Non-Staff MTomas The [address] [address] Patient Name: KIRA PURVIS MRN: [facility]:[id number] date: 1990 Sex: F Assigned Patient Location: [facility] Current Patient Location: Accession/Order Number: [id number] Exam Date: 07/17/2023 16:00 Report Date: 07/18/2023 [...] biophysical profile score 8.0. Electronically authenticated by: YOMAIRA DILLON Date: 07/18/2023 15:07 Dictated By: Yomaira Dillon M.D. Signed By: 07/18/23 1510 DD/ 1509 TD/TT: Papeterie Table Assembler: Procedure Note Radiology, Radiologist, MD - 08/01/2023 [place] [address] Ultrasound Report Signed Patient: KIRA PURVIS LMR#: [id number] 06 : 1990Acct:[id number] Age/Sex: 32 / FADM Date: 07/17/23 Loc: US Attending Dr: Thomas Cortes D.O. Ordering Physician: Thomas Cortes D.O. Date of Service: 07/17/23 Procedure(s): US OB BPP w non-stress Accession Number(s): [id number] cc: Thomas Cortes D.O.; Physician,Non-Staff Nikky The [address] [address] Patient Name: KIRA PURVIS MRN: [facility]:[id number] date: 1990 Sex: F Assigned Patient Location: [facility] Current Patient Location: Accession/Order Number: [id number] Exam Date: 07/17/2023 16:00 Report Date: 07/18/2023 [...] biophysical profile score 8.0. Electronically authenticated by: YOMAIRA DILLON Date: 07/18/2023 15:07 Dictated By: Yomaira Dillon M.D. Signed By:07/18/23 1510 DD/ 1507 TD/TT: Papeterie Table Assembler: us Thomas Sebastian DO [facility] Final Result documented in this encounter Visit Diagnoses Not on filedocumented in this encounter
--- OUTSIDE RECORDS SUMMARY | 2025-05-23 15:07 | XMS_ITS | Encounter Summary ---
Author Organization [facility] Address [address] [place] [address] Care Team Providers Care Certified Endoscopy Technician Name Role Phone Unavailable Primary Care Provider Unavailabl e Encounter Details Date Type Department Care Team (Late Contact Info) Description 06/11/2023 Abstract [facility] BCP OB [address] [place] [address] [place] [address] Kristan Fish, PA [address] [place] [address] Dr [place], [email or web address] Social History Tobacco Use Types Packs/Day Years [...] AM EDT Routine [facility] BCP OB [address] [place] [address] [place] [address] Kristan Fish, PA [address] [place] [address] [place] [address] 05/31/2025 10:50 AM EDT Routine [facility] BCP OB [address] [place] [address] [place] [address] Kristan Fish, PA [address] [place] [address] Dr [place], [email or web address] documented as of this encounter Visit Diagnoses Not on filedocumented in this encounter
--- OUTSIDE RECORDS SUMMARY | 2025-05-23 15:07 | XMS_ITS | Encounter Summary ---
Author Organization [facility] Address [address] [place] [address] Care Team Providers Care Reefer Truck Driver Name Role Phone Unavailable Primary Care Provider Unavailabl e Encounter Details Date Type Department Care Team (Late st Contact Info) Description 04/14/2023 Abstract [facility] OB [address] [facility] [place] [address] Nolan Cortes DO [address] [place] [address] Dr Rocael Jeffries, [email or web address] Social History [...] 8:40 AM EDT Routine [facility] BCP OB [address] [place] [address] [place] [address] Kristan Fish PA [address] [place] [address] Dr [place], [email or web address] 05/31/2025 10:50 AM EDT Routine [facility] BCP OB [address] [place] [address] [place], [place] [address] [address] Kristan Fish PA [address] [place] [address] Dr [place], [email or web address] documented as of this encounter Visit Diagnoses Not on filedocumented in this encounter
--- OUTSIDE RECORDS SUMMARY | 2025-05-23 15:07 | XMS_ITS | Encounter Summary ---
Author Organization [facility] Address [address] [place] [address] Care Team Providers Care Managing Partner Digital Content [employer] [place] Name Role Phone Unavailable Primary Care Provider Unavailabl e Encounter Details Date Type Department Care Team (Late Contact Info) Description 04/25/2023 Abstract [facility] BCP OB [address] [facility] [place] [address] Nolan Cortes DO [address] [place] [address] Dr Rocael Jeffries, [facility]11 Social History Tobacco [...] AM EDT Routine [facility] BCP OB [address] [place] [address] [place] [address] Kristan Fish PA [address] [place], [place] [address] [place], [facility]11 05/31/2025 10:50 AM EDT Routine [facility] BCP OB [address] [place], [place] [address]S[place] [address] Kristan Fish, PA [address] [place] [address] Dr [place], [facility]11 (work) documented as of this encounter Visit Diagnoses Not on filedocumented in this encounter
--- OUTSIDE RECORDS SUMMARY | 2025-05-23 15:07 | XMS_ITS | Clinical Summary ---
Demographics Address [address] [place] [address] Mobile Phone Home Phone Email Address Email Address Preferred Language Sinhala Marital Status Christian Affiliation Unknown Race White Ethnic Group Not or Lati no Author Organization [employer] Address [id number] [address] [place] [address] Support Name Relationship Address Phone Dariusz Purvis Emergency Contact [address] [place] [address] Sravani Villasenor Personal Relationship [address] [place] [address] Laura Cope Personal Relationship Unknown [phone] Care Team Providers Care Utility Arborist Name Role Phone Eli Azul MD Primary [...] Team Description 04/29/2025 Telephone Maternal- Medicine at [facility] [address] [place] [address] Rufina Hurd CMA 04/19/2025 10:30 AM EDT Telemedicine Maternal- Medicine at [facility] [address] [place] [address] Kenya Acosta, UDAY Gestational diabetes mellitus (GDM) in second trimester controlled on oral hypoglycemic drug (Primary Dx) 04/19/2025 Travel 04/19/2025 Telephone Maternal- Medicine at [facility] [address] [place] [address] Rufina Hurd CMA 04/01/2025 Telephone Maternal- Medicine at [facility] [address] [place] [address] Violet Lopez RN 03/23/2025 10:30 AM EDT Telemedicine Maternal- Medicine at [facility] [address] [place] [address] Iman Hall, PATTERN MAKER PROGRAMER-PREMA Gestational diabetes mellitus (GDM) in second trimester controlled on oral hypoglycemic drug 03/23/2025 Travel 03/23/2025 Telephone Maternal- Medicine at [facility] [address] [place] [address] Rufina Hurd CMA 03/16/2025 Telephone Maternal- Medicine at [facility] [address] [place] [address] Violet Lopez RN 03/15/2025 Orders Only Maternal- Medicine at [facility] [address] [place] [address] Rufina Hurd, TAINA 03/08/2025 1:00 PM EDT Office Visit Maternal- Medicine at [facility] [address] [place] [address] Kenya Acosta, PASalomeC Gestational diabetes mellitus (GDM) in second trimester controlled on oral hypoglycemic drug (Primary Dx) 03/08/2025 Travel 03/08/2025 Telephone Maternal- Medicine at [facility] [address] [place] [address] Rufina Hurd, TAINA 03/04/2025 Telephone Maternal- Medicine at [facility] [address] [place] [address] Shima Renee RN 03/02/2025 Telephone Maternal- Medicine at [facility] [address] [place] [address] Shima Renee RN 02/24/2025 Telephone Maternal- Medicine at [facility] [address] [place] [address] Jewels Pedersen LD from Last 3 Months [...] 10:00 AM EDT Telemedicine Maternal- Medicine at [facility] [address] [place] [address] Kenya Acosta, PASalomeC [address] [address] Health Maintenance Due Date Last Done Comments [...] TRANSCRIBED RESULTS from Last 3 Months Insurance formerly [facility] 1/[address] [address] [facility] Care Teams Utility Arborist Relationship Specialty Start Date End Date Eli Azul MD PCP - General Pediatrics 06/23/18
--- OUTSIDE RECORDS SUMMARY | 2025-05-23 15:07 | XMS_ITS | Encounter Summary ---
Author Organization [facility] Address [address] [place] [address] Care Team Providers Care Horizontal Boring Mill Set Up Operator Name Role Phone Unavailable Primary Care Provider Unavailabl e Encounter Details Date Type Department Care Team (Late Contact Info) Description 04/22/2023 Abstract [facility] BCP OB [address] [facility] [place] [address] Nolan Cortes DO [address] [place] [address] Dr Rocael Jeffries, [facility]11 [...] 8:40 AM EDT Routine [facility] BCP OB [address] [place] [address] [place] [address] Kristan Fish PA [address] [place], [place] [address] Dr [place], [facility]11 05/31/2025 10:50 AM EDT Routine [facility] BCP OB [address] [place], [place] [address] [address] Kristan Fish, PA [address] [place] [address] Dr [place], [facility]11 (work) documented as of this encounter Visit Diagnoses Not on filedocumented in this encounter
--- OUTSIDE RECORDS SUMMARY | 2025-05-23 15:07 | XMS_ITS | Encounter Summary ---
Author Organization [facility] Address [address] [place] [address] Care Team Providers Care Diamond Cleaver Name Role Phone Unavailable Primary Care Provider Unavailabl e Encounter Details Date Type Department Care Team (Late Contact Info) Description 02/01/2025 Abstract [facility] BCP OB [address] [place] [address] Nolan Cortes DO [address] Jeffries, [facility]11 Social History Tobacco Use Types [...] Routine [facility] BCP OB [address] [place] [address] Kristan Fish PA [address] [place] [address] 05/31/2025 10:50 AM EDT Routine [facility] BCP OB [address] [place] [address] Kristan Fish PA [address] [place] [address] Dr [place], [facility]11 documented as of this encounter Visit Diagnoses Not on filedocumented in this encounter
--- OUTSIDE RECORDS SUMMARY | 2025-05-23 15:07 | XMS_ITS | Encounter Summary ---
Author Organization [facility] Address [address] [place] [address] Care Team Providers Care Concrete Wall Grinder Operator Name Role Phone Unavailable Primary Care Provider Unavailabl e Encounter Details Date Type Department Care Team (Late st Contact Info) Description 08/08/2023 Clinisync Result Encounter NOMS External Department Unsolicited Thomas Cortes DO [address] [facility] [address] Rocael [place], [place] [phone] Social History Tobacco Use Types Packs/Day Years [...] 8:40 AM EDT Routine [facility] BCP OB [address] [place] [address] [place] [address] Kristan Fish PA [address] [place], [place] [address] [place] [address] [place], [place] [address] 05/31/2025 10:50 AM EDT Routine [facility] BCP OB [facility] [place] [address] Kristan Fish PA [address] [place] [address] Dr [place], [facility]11 documented as of this encounter Procedures Procedure Name Priority Date/Time Associated Diagnosis Comments US OB GROWTH 08/08/2023 3:08 PM EDT documented in this encounter Results * US OB GROWTH (08/08/2023 3:08 PM EDT) Anatomical Region Laterality Modality Other 08/08/2023 3:08 PM EDT Narrative 08/08/2023 3:08 [place] [address] Ultrasound Report Signed Patient: KIRA PURVIS MR#: [id number] : 1990 Acct:[id number] Age/Sex: 32 / F ADM Date: 08/07/23 Loc: US Attending Dr: Thomas Cortes D.O. Ordering Physician: Thomas Cortes D.O. Date of Service: 08/07/23 Procedure(s): US OB growth Accession Number(s): [id number] cc: Thomas Cortes D.O.; Physician,Non-Staff M.DMya [place] [id number] Patient Name: KIRA PURVIS MRN: [facility]:[id number] date: 1990 Sex: F Assigned Patient Location: [facility] Current Patient Location: US Accession/Order Number: [id number] Exam Date: 08/07/2023 16:05 Report Date: 08/08/2023 [...] Signed By: 08/08/23 1511 DD/ 1508 TD/TT: Air Conditioning Mechanic: Procedure Note Radiology, Radiologist, MD - 08/08/2023 [place] [address] Ultrasound Report Signed Patient: KIRA PURVIS LMR#: [id number] : 1990Acct:[id number] Age/Sex: 32 / FADM Date: 08/07/23 Loc: US Attending Dr: Thomas Cortes D.O. Ordering Physician: Thomas Cortes D.O. Date of Service: 08/07/23 Procedure(s): US OB growth Accession Number(s): [id number] cc: Thomas Cortes D.O.; Physician,Non-Staff Nikky The [place] [address] Patient Name: KIRA PURVIS MRN: [facility]:[id number] date: 1990 Sex: F Assigned Patient Location: [facility] Current Patient Location: US Accession/Order Number: [id number] Exam Date: 08/07/2023 16:05 Report Date: 08/08/2023 [...] M.D. Signed By:08/08/23 1511 DD/ 1508 TD/TT: Air Conditioning Mechanic: [facility] DO [facility] Final Result documented in this encounter Visit Diagnoses Not on filedocumented in this encounter
--- NOTE | 2025-05-23 15:10 | US_ITS ---
The [address] [address] Patient Name: KIRA CASTELLON MRN: [facility]:[id number] date: 1990 Sex: F Assigned Patient Location: [facility] Current Patient Location: Accession/Order Number: [id number] Exam Date: 05/24/2025 06:57 Report Date: 05/24/2025 06:59 At the request of: THOMAS FORMAN DO Procedure: US OB BPP w non-stress BIOPHYSICAL PROFILE: CLINICAL INFORMATION: GESTATIONAL DIABETES MELITUS O24.419 COMPARISON: 05/16/2025 There is a single live intrauterine gestation in cephalic presentation. The reported gestational age is 35 weeks 3 days. The heart rate measures 159 beats per minute. FINDINGS: TONE: 1 or more episodes of activity extension and flexion of extremity or opening and closing of the hand [Y] 2/2 GROSS BODY MOVEMENTS: 3 or more discrete body or limb movements [Y] 2/2 BREATHING MOVEMENTS: 1 or more episodes of breathing lasting at least 30 seconds [Y] 2/2 BHAVANI: A single deepest vertical pocket of amniotic fluid greater than 2 cm [Y] 2/2 BHAVANI: 17.5 cm. This is in upper normal range. Total score: 8/8 US/ OB BPP w non-stress IMPRESSION: NORMAL BIOPHYSICAL PROFILE Impression dictated by: Grace Peña M.D. 05/24/2025 6:59 AM Dictation Location: [place] [address] Electronically authenticated by: [id number] Y Date: 05/24/2025 06:59
[2025-05-23 15:32] VITALS: BP 141/79; PULSE 88
== END 2025-05-23 15:57 | disposition home or self-care (01) ==
LOC: US 15:02 → FBC 15:03
PROVIDERS: Visit Provider Obstetrics & Gynecology
DX: O24.419 Gestational diabetes mellitus in pregnancy, unspecified control (principal); Z3A.35 35 weeks gestation of pregnancy
CPT/HCPCS: 76818

== ENCOUNTER 2025-05-26 15:01 | Outpatient (OUT) | payer BC, SELFPAY ==
--- OUTSIDE RECORDS SUMMARY | 2025-05-17 11:40 | XMS_ITS | Encounter Summary ---
Author Organization [facility] Address [address] [place] [address] Care Team Providers Care Wire Drawing Setter Name Role Phone Unavailable Primary Care Provider Unavailabl e Reason for Visit * Reason Comments Routine Visit Encounter Details Date Type Department Care Team ([facility] Contact Info) Description 05/17/2025 11:40 AM EDT Routine [facility] OB [address] [facility] [place] [phone] Nolan Cortes, DO [address] [facility] [address] [place], [place] [id number] Third trimester ([facility]); 34 weeks gestation of ([facility]); Gestational [...] this encounter Progress Notes * Grace Arita, MUSIC AUTOGRAPHER - 05/17/2025 11:40 AM EDT Reason for [...] Morbid obesity with BMI of 40.0-44.9, adult ([facility]) HISTORY PAST MEDICAL HISTORY SOCIAL HISTORY Past Medical History: Diagnosis Date Chronic hypertension affecting ([facility]) Exposure to cat feces, sequela Former smoker Gestational diabetes ([facility]) Herpes exposure History of miscarriage Morbid obesity with BMI of 40.0-44.9, adult ([facility]) Social History Tobacco Use Smoking status: Former [...] nursing note reviewed. Exam conducted with a ornamenter hand present. Vitals: Estimated body mass index is 47.58 kg/m² as calculated from the following: Height [...] AM EDT Routine [facility] OB [address] [facility] [place] [address] Kristan Fish PA [address] [facility] [place] [address] documented as of this encounter Visit Diagnoses Diagnosis Third trimester ([facility]) state, incidental 34 weeks gestation of ([facility]) Gestational diabetes mellitus (GDM), antepartum, gestational diabetes method of control unspecified ([facility]) documented in this encounter
--- OUTSIDE RECORDS SUMMARY | 2025-05-24 08:40 | XMS_ITS | Encounter Summary ---
Author Organization [facility] Address [address] [facility] [place] [address] Care Team Providers Care Supervisor Printing And Stamping Name Role Phone Unavailable Primary Care Provider Unavailabl e Reason for Visit * Reason Comments Routine Visit Encounter Details Date Type Department Care Team ([facility] Contact Info) Description 05/24/2025 8:40 AM EDT Routine [facility] BCP OB [address] [facility] [place] [phone] Kristan Fish PA [address] [facility] [address] [place], [facility]11 Third trimester ([facility]); 35 weeks gestation of ([facility]); induced hypertension, antepartum ([facility]) Social History Tobacco Use Types Packs/Day Years [...] Noted Benign essential hypertension in obstetric context ([facility]) 04/18/2023 Exposure to cat feces 04/18/2023 Gestational diabetes ([facility]) 04/18/2023 Nausea 04/18/2023 History of delivery 02/24/2023 Resolved Ambulatory Problems Diagnosis Date Noted No Resolved Ambulatory Problems Past Medical History: Diagnosis Date Chronic hypertension affecting ([facility]) Exposure to cat feces, sequela Former smoker Herpes exposure History of miscarriage Morbid obesity with BMI of 40.0-44.9, adult ([facility]) HISTORY PAST MEDICAL HISTORY SOCIAL HISTORY Past Medical History: Diagnosis Date Chronic hypertension affecting ([facility]) Exposure to cat feces, sequela Former smoker Gestational diabetes ([facility]) Herpes exposure History of miscarriage Morbid obesity with BMI of 40.0-44.9, adult ([facility]) Social History Tobacco Use Smoking status: Former [...] Vitals: Estimated body mass index is 48.12 kg/m² as calculated from the following: Height as of 09/09/23: 5' 7 . Weight as of this encounter: 307 lb 4 oz. BP: 130/82 Patient's last menstrual period was 09/17/2024. ASSESSMENT & PLAN ICD-10-CM 1. Third trimester ([facility]) Z34.93 POCT urinalysis dipstick manually resulted 2. 35 weeks gestation of ([facility]) Z3A.35 3. induced hypertension, antepartum ([facility]) O13.9 CANCELED: Creatinine CANCELED: Protein, urine, [...] AM EDT Routine [facility] BCP OB [address] [facility] [place] [phone] Kristan Fish PA [address] [facility] [place] [address] documented as of this encounter Procedures Procedure Name Priority Date/Time Associated Diagnosis Comments POCT URINALYSIS DIPSTICK Routine 05/24/2025 9:13 AM EDT Third trimester ([facility]) documented in this encounter Results [...]
--- OUTSIDE RECORDS SUMMARY | 2025-05-26 15:03 | XMS_ITS | Encounter Summary ---
Author Organization [facility] Address [address] [place] [address] Care Team Providers Care Emergency Medical Dispatcher Name Role Phone Unavailable Primary Care Provider Unavailabl e Encounter Details Date Type Department Care Team (Late Contact Info) Description 12/01/2024 Abstract [facility] BCP OB [address] [place] [address] Nolan Cortes DO [address] [place], [facility]11 Social History Tobacco [...] BCP OB [address] [place] [address] Kristan Fish PA [address] [place] [address] documented as of this encounter Visit Diagnoses Not on filedocumented in this encounter
--- OUTSIDE RECORDS SUMMARY | 2025-05-26 15:03 | XMS_ITS | Encounter Summary ---
Author Organization [facility] Address [address] [place] [address] Care Team Providers Care Digester Capper Name Role Phone Unavailable Primary Care Provider Unavailabl e Encounter Details Date Type Department Care Team (Late Contact Info) Description 12/08/2024 Abstract [facility] BCP OB [address] [place] [address] Nolan Cortes DO [address] [place], [facility] [...] BCP OB [address] [place] [address] Kristan Fish PA [address] [place] [address] documented as of this encounter Visit Diagnoses Not on filedocumented in this encounter
--- OUTSIDE RECORDS SUMMARY | 2025-05-26 15:03 | XMS_ITS | Encounter Summary ---
Author Organization [facility] Address [address] [place] [address] Care Team Providers Care Tool Procurement Coordinator Name Role Phone Unavailable Primary Care Provider Unavailabl e Encounter Details Date Type Department Care Team (Late Contact Info) Description 05/17/2025 Bamboo flowsheet [facility] BCP OB [address] [place] [address] Nolan Cortes DO [address] [facility] [address] [place], [facility]11 [...] Routine N[facility] BCP OB [address] [facility] [address] Kristan Fish PA [address] [place], [facility]11 documented as of this encounter Visit Diagnoses Not on filedocumented in this encounter
--- OUTSIDE RECORDS SUMMARY | 2025-05-26 15:03 | XMS_ITS | Encounter Summary ---
Author Organization [facility] Address [address] [place] [address] Care Team Providers Care Park Worker Name Role Phone Unavailable Primary Care Provider Unavailabl e Encounter Details Date Type Department Care Team (Late Contact Info) Description 07/04/2023 Abstract [facility] OB [address] [facility] [place] [address] Nolan Cortes DO [address] [facility] [address] [place], [facility]11 [...] Description 05/31/2025 10:50 AM EDT Routine [facility] OB [address] [facility] [place] [address] Kristan Fish PA [address] [facility] [address] [place], [facility]11 documented as of this encounter Visit Diagnoses Not on filedocumented in this encounter
--- OUTSIDE RECORDS SUMMARY | 2025-05-26 15:03 | XMS_ITS | Encounter Summary ---
Author Organization [facility] Address [address] [place] [address] Care Team Providers Care Jtac Name Role Phone Unavailable Primary Care Provider Unavailabl e Encounter Details Date Type Department Care Team (Late Contact Info) Description 08/21/2023 Abstract [facility] OB [address] [facility] [address] Nolan Cortes [address] [place], [facility]11 [...] AM EDT Routine N[facility] BCP OB [address] [facility] [address] Kristan Fish PA [address] [place] [address] documented as of this encounter Visit Diagnoses Not on filedocumented in this encounter
--- OUTSIDE RECORDS SUMMARY | 2025-05-26 15:03 | XMS_ITS | Encounter Summary ---
Author Organization [facility] Address [address] [place] [address] Care Team Providers Care Nicker Name Role Phone Unavailable Primary Care Provider Unavailabl e Encounter Details Date Type Department Care Team (Late Contact Info) Description 12/02/2024 Abstract [facility] BCP OB [address] [place] [address] Nolan Cortes DO [address] [place], [facility]11 Social History Tobacco Use Types [...] Routine [facility]CP OB [address] [facility] [address] Kristan Fish PA [address] [place] [address] documented as of this encounter Visit Diagnoses Not on filedocumented in this encounter
--- OUTSIDE RECORDS SUMMARY | 2025-05-26 15:03 | XMS_ITS | Encounter Summary ---
Demographics Address [address] [place] [address] Mobile Phone Home Phone Email Address Email Address Preferred Language Ukrainian Marital Status Rastafarian Affiliation Unknown Race White Ethnic Group Not or Lati no Author Organization [facility] Address [id number] [address] [place] [address] Support Name Relationship Address Phone Dariusz Purvis Emergency Contact [address] [place] [address] Sravani Villasenor Personal Relationship [address] [place] [address] Laura Cope Personal Relationship Unknown [phone] Care Team Providers Care Carpenter Helper Maintenance Name Role Phone Eli Azul MD Primary Care Provider + Encounter Details Date Type Department Care Team (Late st Contact Info) Description 02/07/2025 Orders Only Maternal- Medicine at [facility] [address] [place] [phone] Ref Prov, [place] [address] Social History Tobacco Use Types Packs/Day Years [...] Care Team (Late st Contact Info) Description 06/02/2025 9:30 AM EDT Telemedicine Maternal- Medicine at [facility] [address] [place] [address] Iman Hall, [facility] [place] [address] documented as of this encounter Procedures Procedure [...] 1:52 PM EST) Anatomical Region Laterality Modality OB-DESIZING MACHINE OPERATOR Ultrasound us Not In System Ref Prov IMG US ORDERABLES Final R esult documented in this encounter Visit Diagnoses Not on filedocumented in this encounter Care Teams Carpenter Helper Maintenance Relationship Specialty Start Date End Date Eli Azul MD PCP - General Pediatrics 06/23/18 documented as of this encounter
--- OUTSIDE RECORDS SUMMARY | 2025-05-26 15:03 | XMS_ITS | Encounter Summary ---
Author Organization [facility] Address [address] [place] [address] Care Team Providers Care Waxed Bag Machine Operator Name Role Phone Unavailable Primary Care Provider Unavailabl e Encounter Details Date Type Department Care Team (Late Contact Info) Description 05/16/2025 Clinisync Result Encounter [facility] External Department Unsolicited Thomas Cortes DO [address] [facility] [address] [place], [place] [address] Social History Tobacco Use Types Packs/Day Years [...] AM EDT Routine [facility] BCP OB [address] [facility] [place] [address] Kristan Fish PA [address] [facility] [address] [place], [facility]11 documented as of this encounter Procedures Procedure Name Priority Date/Time Associated Diagnosis Comments US OB BPP W NON-STRESS 05/16/2025 11:00 PM EDT documented in this encounter Results * US OB BPP W NON-STRESS (05/16/2025 11:00 PM EDT) Anatomical Region Laterality Modality Other 05/16/2025 11:0 0 PM EDT Narrative 05/16/2025 11:03 PM EDT [address] [address] Ultrasound Report Signed Patient: KIRA PURVIS MR#: [id number] : 1990 Acct:[id number] Age/Sex: 34 / F ADM Date: 05/16/25 Loc: US Attending Dr: Thomas Cortes D.O. Ordering Physician: Thomas Cortes D.O. Date of Service: 05/16/25 Procedure(s): US OB BPP w non-stress Accession Number(s): [id number] cc: Thomas Cortes D.O.; Physician,Non-Staff Nikky The [place] [id number] Patient Name: KIRA PURVIS MRN: [id number] date: 1990 Sex: F Assigned Patient Location: US Current Patient Location: Accession/Order Number: [id number] Exam Date: 05/16/2025 22:56 Report Date: 05/16/2025 23:00 At the request of: THOMSA CORTES DO Procedure: US OB BPP w non-stress Ultrasound biophysical profile Indication for exam: Gestational diabetes COMPARISON: 05/09/2025 FINDINGS: Single live intrauterine gestation with score 8/8 heart rate of 184 beats per minutes BHAVANI 17.05 cm US/US OB BPP w non-stress IMPRESSION: BP biophysical profile 8 out of 8 Impression dictated by: Mehul Brewer M.D. 05/16/2025 11:00 PM Dictation Location: [place] [address] Electronically authenticated by: [id number] Y Date: 05/16/2025 23:00 Dictated By: Mehul Brewer M.D. Signed By: 05/16/252302 DD/ 99 TD/TT: Robotic Welder: Procedure Note Radiology, Radiologist, - 05/16/2025 [place] [address] Ultrasound Report Signed Patient: KIRA PURVIS LMR#: [id number] : 1990Acct:[id number] Age/Sex: 34 / FADM Date: 05/16/25 Loc: US Attending Dr: Thomas Cortes D.O. Ordering Physician: Thomas Cortes D.O. Date of Service: 05/16/25 Procedure(s): US OB BPP w non-stress Accession Number(s): [id number] cc: Thomas Cortes D.O.; Physician,Non-Staff Nikky The [place] [address] Patient Name: KIRA PURVIS MRN: [id number] date: 1990 Sex: F Assigned Patient Location: US Current Patient Location: Accession/Order Number: [id number] Exam Date: 05/16/2025 22:56 Report Date: 05/16/2025 [...] Brewer M.D. 05/16/2025 11:00 PM Dictation Location: [place] [address] Electronically authenticated by: [id number] Y Date: 3:00 Dictated By: Mehul Brewer M.D. Signed By:05/16/252302 DD/ 99 TD/TT: Robotic Welder: us Thomas Cortes DO [facility] Final Result documented in this encounter Visit Diagnoses Not on filedocumented in this encounter
--- OUTSIDE RECORDS SUMMARY | 2025-05-26 15:03 | XMS_ITS | Encounter Summary ---
Author Organization [facility] Address [address] [place] [address] Care Team Providers Care Alumni Relations Officer Name Role Phone Unavailable Primary Care Provider Unavailabl e Encounter Details Date Type Department Care Team (Late st Contact Info) Description 11/26/2024 Clinisync Result Encounter [facility] External Department Unsolicited Thomas Cortes DO [address] [place] [address] Social History Tobacco Use Types Packs/Day [...] AM EDT Routine [facility] BCP OB [address] [facility] [address] Kristan Fish PA [address] [facility] [place] [address] [phone] (work) documented as of this encounter Procedures Procedure Name Priority Date/Time Associated Diagnosis Comments US OB TRANSVAGINAL 11/26/2024 9: 35 AM EST documented in this encounter Results * US OB TRANSVAGINAL (11/26/2024 9:35 AM EST) Anatomical Region Laterality Modality Other 11/26/2024 9:35 AM EST Narrative 11/26/2024 9:37 AM EST [address] [address] Ultrasound Report Signed Patient: KIRA PURVIS MR#: [id number] : 1990 Acct:[id number] Age/Sex: 34 / F ADM Date: 11/26/24 Loc: US Attending Dr: Thomas Cortes D.O. Ordering Physician: Thomas Cortes D.O. Date of Service: 11/26/24 Procedure(s): US OB transvaginal Accession Number(s): [id number] cc: Thomas Cortes D.O.; Physician,Non-Staff Nikky [address] [address] Patient Name: KRIA PURVIS MRN: [id number] date: 1990 Sex: F Assigned Patient Location: US Current Patient Location: US Accession/Order Number: [id number] Exam Date: 11/26/2024 08:36 Report Date: 11/26/2024 [...] M.D. Signed By: 11/26/24 0937 DD/ TD/TT: Roof Truss Builder: Procedure Note Radiology, Radiologist, MD - 11/26/2024 [place] [address] Ultrasound Report Signed Patient: KIRA PURVIS LMR#: [id number] : 1990Acct:[id number] Age/Sex: 34 / FADM Date: 11/26/24 Loc: US Attending Dr: Thomas Cortes D.O. Ordering Physician: Thomas Cortes D.O. Date of Service: 11/26/24 Procedure(s): US OB transvaginal Accession Number(s): [id number] cc: Thomas Cortes D.O.; Physician,Non-Staff Nikky The [address] [address] Patient Name: KIRA PURVIS MRN: [id number] date: 1990 Sex: F Assigned Patient Location: US Current Patient Location: US Accession/Order Number: [id number] Exam Date: 11/26/2024 08:36 Report Date: 11/26/2024 [...] M.D. Signed By:11/26/24 0937 DD/ 0935 TD/TT: Roof Truss Builder: us [facility] DO [facility] Final Result documented in this encounter Visit Diagnoses Not on filedocumented in this encounter
--- OUTSIDE RECORDS SUMMARY | 2025-05-26 15:03 | XMS_ITS | Encounter Summary ---
Author Organization [facility] Address [address] [place] [address] Care Team Providers Care Pumpman Name Role Phone Unavailable Primary Care Provider Unavailabl e Encounter Details Date Type Department Care Team (Late Contact Info) Description 08/21/2023 Abstract [facility] OB [address] [facility] [place] [address] Nolan Cortes [address] [place], [facility] [...] OB [address] [facility] [place] [address] Kristan Fish PA [address] [place] [address] documented as of this encounter Visit Diagnoses Not on filedocumented in this encounter
--- OUTSIDE RECORDS SUMMARY | 2025-05-26 15:03 | XMS_ITS | Encounter Summary ---
Author Organization [facility] Address [address] [place] [address] Care Team Providers Care Wildlife Control Operator Name Role Phone Unavailable Primary Care Provider Unavailabl e Encounter Details Date Type Department Care Team (Late Contact Info) Description 04/28/2024 Clinisync Result Encounter NOMS External Department Unsolicited Thomas Cortes DO [address] [facility] [place] [address] Social History Tobacco Use Types Packs/Day Years [...] [address] [facility] [place] [phone] Kristan Fish PA [address] [facility] [place] [address] documented as of this encounter Procedures Procedure Name Priority Date/Time Associated Diagnosis Comments US PELVIS W/ TRANSVAGINAL 04/28/2024 1:16 PM EDT documented in this encounter Results * US PELVIS W/ TRANSVAGINAL (04/28/2024 1:16 PM EDT) Anatomical Region Laterality Modality Other 04/28/2024 1:16 PM EDT Narrative 04/28/2024 1:19 PM EDT [address] [address] Ultrasound Report Signed Patient: KIRA PURVIS MR#: [id number] : 1990 Acct:[id number] Age/Sex: 33 / F ADM Date: 04/27/24 Loc: US Attending Dr: Thomas Cortes D.O. Ordering Physician: Thomas Cortes D.O. Date of Service: 04/27/24 Procedure(s): US pelvis w/ transvaginal Accession Number(s): [id number] cc: Thomas Cortes D.O.; Physician,Non-Staff Nikky [address] [address] Patient Name: KIRA PURVIS MRN: [facility]:[id number] date: 1990 Sex: F Assigned Patient Location: US Current Patient Location: Accession/Order Number: [id number] Exam Date: 04/27/2024 14:00 Report Date: 04/28/2024 [...] Signed By: 04/28/24 1319 DD/ 1316 TD/TT: Sales Architect: Procedure Note Radiology, Radiologist, MD - 04/28/[address] [place] [address] Ultrasound Report Signed Patient: KIRA PURVIS LMR#: [id number] : 1990Acct:[id number] Age/Sex: 33 / FADM Date: 04/27/24 Loc: US Attending Dr: Thomas Cortes D.O. Ordering Physician: Thomas Cortes D.O. Date of Service: 04/27/24 Procedure(s): US pelvis w/ transvaginal Accession Number(s): [id number] cc: Thomas Cortes D.O.; Physician,Non-Staff Nikky The [place] [id number] Patient Name: KIRA PURVIS MRN: [id number] date: 1990 Sex: F Assigned Patient Location: US Current Patient Location: Accession/Order Number: [id number] Exam Date: 04/27/2024 14:00 Report Date: 04/28/2024 [...] M.D. Signed By:04/28/24 1319 DD/ 1316 TD/TT: Sales Architect: us Thomas Sebastian DO [facility] Final Result documented in this encounter Visit Diagnoses Not on filedocumented in this encounter
--- OUTSIDE RECORDS SUMMARY | 2025-05-26 15:03 | XMS_ITS | Encounter Summary ---
Author Organization [facility] Address [address] [place] [address] Care Team Providers Care Information Services Assistant Name Role Phone Unavailable Primary Care Provider Unavailabl e Encounter Details Date Type Department Care Team (Late Contact Info) Description 01/24/2025 Abstract [facility] BCP OB [address] [place] [address] Nolan Cortes DO [address] [place], [facility]11 Social History Tobacco Use Types [...] AM EDT Routine [facility] BCP OB [address] [place] [address] Kristan Fish PA [address] [place] [address] documented as of this encounter Visit Diagnoses Not on filedocumented in this encounter
--- OUTSIDE RECORDS SUMMARY | 2025-05-26 15:03 | XMS_ITS | Encounter Summary ---
Author Organization [facility] Address [address] [place] [address] Care Team Providers Care Tire Recapper Name Role Phone Unavailable Primary Care Provider Unavailabl e Encounter Details Date Type Department Care Team (Late Contact Info) Description 08/21/2023 Abstract [facility] OB [address] [facility] [place] [address] Nolan Cortes [address] [place], [facility]11 Social [...] EDT Routine N[facility] BCP OB [address] [facility] [place] [address] Kristan Fish PA [address] [place] [address] documented as of this encounter Visit Diagnoses Not on filedocumented in this encounter
--- OUTSIDE RECORDS SUMMARY | 2025-05-26 15:04 | XMS_ITS | Encounter Summary ---
Author Organization [facility] Address [address] [place] [address] Care Team Providers Care Aligning Inspector Name Role Phone Unavailable Primary Care Provider Unavailabl e Encounter Details Date Type Department Care Team (Late Contact Info) Description 05/25/2025 Clinisync Result Encounter NOMS External Department Unsolicited Thomas Cortes DO [address] [facility] [address] Rocael Jeffries, [facility]11 [...] AM EDT Routine [facility] BCP OB [address] [facility] [place] [phone] Kristan Fish PA [address] [facility] [address] [place], [facility]11 documented as of this encounter Procedures Procedure Name Priority Date/Time Associated Diagnosis Comments US OB GROWTH 05/25/2025 9:12 AM EDT documented in this encounter Results * US OB GROWTH (05/25/2025 9:12 AM EDT) Anatomical Region Laterality Modality Other 05/25/2025 9:12 AM EDT Narrative 05/25/2025 9:15 [place] [address] Ultrasound Report Signed Patient: KIRA PURVIS MR#: [id number] : 1990 Acct:[id number] Age/Sex: 34 / F ADM Date: 05/16/25 Loc: US Attending Dr: Thomas Cortes D.O. Ordering Physician: Thomas Cortes D.O. Date of Service: 05/16/25 Procedure(s): US OB growth Accession Number(s): [id number] cc: Thomas Cortes D.O.; Physician,Non-Staff Nikky The [place] [address] Patient Name: KIRA PURVIS MRN: [id number] date: 1990 Sex: F Assigned Patient Location: Current Patient Location: Accession/Order Number: [id number] Exam Date: 05/25/2025 09:01 Report Date: 05/25/2025 09:12 At the request of: THOMAS CORTES DO Procedure: US OB growth ULTRASOUND OB GROWTH COMPARISON: 11/26/2024 CLINICAL DATA: Gestational diabetes There is a single live intrauterine gestation in cephalic presentation. There is cardiac and somatic activity with heart rate of 163 bpm. The amniotic fluid index measures 17.1 cm which is in upper normal range. The following measurements were obtained: Biparietal diameter 8.4 cm 33 weeks 6 days 32% Head circumference 30.7 cm 24 weeks 1 day 12% Abdominal circumference 34.2 cm 38 weeks 1 day >97% Femur length 6.9 cm 35 weeks 2 days 64% The composite ultrasound age based on these measurements is 35 weeks 3 days +/- 2 weeks 3 days. The estimated date of delivery is June 17, 2025. The date of delivery based on last menstrual period was June 24, 2025. The estimated weight is 6 lbs. 8 oz.+ -1 lb. 0 oz. (94%). US/US OB growth IMPRESSION: SINGLE LIVE INTRAUTERINE GESTATION WITH ULTRASOUND AGE OF 35 WEEKS 3 DAYS. LARGE FETUS FOR GESTATIONAL AGE (EFW 94%). Impression dictated by: Grace Peña M.D. 05/25/2025 9:12 AM Dictation Location: [place] [address] Electronically authenticated by: [id number] Y Date: 05/25/2025 09:12 Dictated By: Grace Peña M.D. Signed By: 05/25/25914 DD/ 1 TD/TT: Embedded Processor: Procedure Note Radiology, Radiologist, MD - 05/25/2025 [place] [address] Ultrasound Report Signed Patient: KIRA PURVIS LMR#: [id number] : 1990Acct:[id number] Age/Sex: 34 / FADM Date: 05/16/25 Loc: US Attending Dr: Thomas Cortes D.O. Ordering Physician: Thomas Cortes D.O. Date of Service: 05/16/25 Procedure(s): US OB growth Accession Number(s): [id number] cc: Thomas Cortes D.O.; Physician,Non-Staff Nikky The [place] [id number] Patient Name: KIRA PURVIS MRN: [id number] date: 1990 Sex: F Assigned Patient Location: US Current Patient Location: Accession/Order Number: [id number] Exam Date: 05/25/2025 09:01 Report Date: 05/25/2025 09:12 At the request of: THOMAS CORTES DO Procedure: US OB growth ULTRASOUND OB GROWTH COMPARISON: 11/26/2024 CLINICAL DATA: Gestational diabetes There is a single live intrauterine gestation in cephalic presentation.There is cardiac and somatic activity with heart rate of 163 bpm. The amniotic fluid index measures 17.1 cm which is in upper normal range. The following measurements were obtained: Biparietal diameter 8.4 cm 33 weeks 6 days 32% Head circumference 30.7 cm 24 weeks 1 day 12% Abdominal circumference 34.2 cm 38 weeks 1 day >97% Femur length 6.9 cm 35 weeks 2 days64% The composite ultrasound age based on these measurements is 35 weeks 3days +/- 2 weeks 3 days. The estimated date of delivery is June 17, 2025.The date of delivery based on last menstrual period was June 24, 2025. The estimated weight is 6 lbs. 8 oz.+ -1 lb. 0 oz. (94%). US/US OB growth IMPRESSION: SINGLE LIVE INTRAUTERINE GESTATION WITH ULTRASOUND AGE OF 35 WEEKS 3 DAYS. LARGE FETUS FOR GESTATIONAL AGE (EFW 94%). Impression dictated by: Grace Peña M.D. 05/25/2025 9:12 AM Dictation Location: [place] [address] Electronically authenticated by: [id number] Y Date: 509:12 Dictated By: Grace Peña M.D. Signed By:05/25/25 0915 DD/ 0912 TD/TT: Embedded Processor: us Thomas Sebastian DO [facility] Final Result documented in this encounter Visit Diagnoses Not on filedocumented in this encounter
--- OUTSIDE RECORDS SUMMARY | 2025-05-26 15:04 | XMS_ITS | Encounter Summary ---
Author Organization [facility] Address [address] [place] [address] Care Team Providers Care Family Coach Name Role Phone Unavailable Primary Care Provider Unavailabl e Encounter Details Date Type Department Care Team (Late Contact Info) Description 03/07/2025 Abstract [facility] BCP OB [address] [place] [address] Nolan Cortes [address], [facility]11 Social History Tobacco Use Types Packs/Day [...] AM EDT Routine [facility] BCP OB [address] [facility] [place] [address] Kristan Fish PA [address] [place] [address] documented as of this encounter Visit Diagnoses Not on filedocumented in this encounter
--- OUTSIDE RECORDS SUMMARY | 2025-05-26 15:04 | XMS_ITS | Encounter Summary ---
Author Organization [facility] Address [address] [place] [address] Care Team Providers Care Sofa Cover Inspector Name Role Phone Unavailable Primary Care Provider Unavailabl e Encounter Details Date Type Department Care Team (Late Contact Info) Description 01/27/2025 Abstract [facility] BCP OB [address] [place] [address] Nolan Cortes DO [address], [facility]11 [...] EDT Routine N[facility] BCP OB [address] [facility] [place] [address] Kristan Fish PA [address] [place] [address] documented as of this encounter Visit Diagnoses Not on filedocumented in this encounter
--- OUTSIDE RECORDS SUMMARY | 2025-05-26 15:04 | XMS_ITS | Encounter Summary ---
Author Organization [facility] Address [address] [place] [address] Care Team Providers Care Civil Attorney Name Role Phone Unavailable Primary Care Provider Unavailabl e Encounter Details Date Type Department Care Team (Latest Contact Info) Description 05/23/2025 Travel Social History Tobacco Use Types Packs/Day [...] AM EDT Routine [facility] BCP OB [address] [facility] [place] [id number] Kristan Fish PA [address] [facility] [place] [address] documented as of this encounter Visit Diagnoses Not on filedocumented in this encounter
--- OUTSIDE RECORDS SUMMARY | 2025-05-26 15:04 | XMS_ITS | Clinical Summary ---
Author Organization [facility] Address [address] [place] [address] Care Team Providers Care Diesel Retrofit Installer Name Role Phone Unavailable Primary Care Provider Unavailabl e Allergies No known active allergies Medications Alcohol Swabs (Alcohol Prep Pad) 70 % padsIndications: Gestational diabetes mellitus (GDM), antepartum, gestational diabetes method of control unspecified ([facility]),Elevat ed glucose tolerance test Apply 1 Pad topically Daily Use four times daily to check FSBS. 150 each 3 5 Active MV & Min w/FA-DHA ( Adult Gummy/DHA/FA) 0.4-25 MG chewable tablet Chew 1 each Daily 5 Active aspirin 81 MG EC tablet Take 81 mg by mouth Daily Active Blood Glucose Monitoring Suppl (Accu-Chek Guide Co) w/Device kitIndications:G estational diabetes mellitus (GDM), antepartum, gestational diabetes method of control unspecified ([facility]),Elevat ed glucose tolerance test USE TO [...] Benign essential hypertensio n in obstetric context ([facility]) 04/18/2023 Exposure to cat feces 04/18/2023 Gestational diabetes ([facility]) 04/18/2023 Nausea 04/18/2023 History of delivery 02/24/2023 Estimated Date of Delivery Comme nts Yes 06/24/2025 Based on last me nstrual period of 09/17/2024 Encounters Date Type Department Care Team Description 05/25/2025 Clinisync Result Encounter NOMS External Department Unsolicited Thomas Crotes, DO 05/24/2025 8:40 AM EDT [facility] OB [address] [address] Kristan Fish PA Third trimester ([facility]); 35 weeks gestation of ([facility]); induced hypertension, antepartum ([facility]) 05/24/2025 Clinisync Result Encounter NOMS External Department Unsolicited Thomas Cortes, DO 05/23/2025 Travel 05/23/2025 Telephone [facility] B[facility] OB [address] [place] [address] Danay Ortega LPN 05/23/2025 Abstract [facility] B[facility] OB [address] [place] [address] Thomas Cortes, DO 05/23/2025 Abstract [facility] OB [address] [place] [address] Thomas Cortes, DO 05/17/2025 11:40 AM EDT Routine [facility] B[facility] OB [address] [place] [address] Thomas Cortes, DO Third trimester ([facility]); 34 weeks gestation of ([facility]); Gestational diabetes mellitus (GDM), antepartum, gestational diabetes method of control unspecified ([facility]) 05/17/2025 Bamboo flowsheet [facility] B[facility] OB [address] [place] [phone] Thomas Cortes, DO 05/16/2025 Clinisync Result Encounter NOMS External Department Unsolicited Thomas Cortes, DO 05/09/2025 Clinisync Result Encounter NOMS External Department Unsolicited Thomas Cortes, DO 05/02/2025 10:50 AM EDT Routine [facility] BCP OB [address] [place] [address] Kristan Fish PA 32 weeks gestation of ([facility]); Third trimester ([facility]) 05/02/2025 Clinisync Result Encounter NOMS External Department Unsolicited Thomas Cortes, DO 05/02/[address] [facility] OB [address] [place] [address] Kristan Fish PA 04/25/2025 Clinisync Result Encounter NOMS External Department Unsolicited Thomas Cortes, DO 04/18/2025 1:00 PM EDT Routine NOMS [address] [place] [address] Thomas Cortes, DO 30 weeks gestation of ([facility]); Third trimester ([facility]) 04/18/2025 Clinisync Result Encounter NOMS External Department Unsolicited Thomas Cortes, DO 04/18/2025 Bamboo flowsheet NOM[facility] [address] [place] [address] Thomas Cortes, DO 04/11/2025 Clinisync Result Encounter NOMS External Department Unsolicited Thomas Cortes, DO 04/11/2025 Travel 04/06/2025 Abstract [facility] [address] [place] [address] Thomas Cortes, DO 04/05/2025 1:50 PM EDT Routine NOM[facility] [address] [place] [address] Thomas Cortes, DO Third trimester ([facility]); 28 weeks gestation of ([facility]); Gestational diabetes mellitus (GDM), antepartum, gestational diabetes method of control unspecified ([facility]); H/O: hypertension 04/05/[address] [facility] OB [address] [place] [address] [place] [address] Thomas Cortes, DO 03/14/2025 1:50 PM EDT Routine NOMS [address] [place] [address] Thomas Cortes DO Second trimester ([facility]); 25 weeks gestation of ([facility]) 03/14/2025 Bamboo flowsheet NOM[facility] [address] [place] [address] Thomas Cortes DO 03/08/2025 Telephone [facility] [address] [place] [address] Suze Hendrix MA 03/07/2025 Abstract [facility] [address] [place] [address] Thomas Cortes, 03/07/2025 Clinisync Result Encounter NOMS External Department Unsolicited Thomas Cortes DO from Last 3 Months [...] oz) 05/24/2025 8:59 AM E DT Height 170.2 cm (5' 7 ) 09/09/2023 1:05 PM EDT Body Mass Index 48.12 09/09/2023 1:05 PM EDT Plan of Treatment Upcoming Encounters Date Type Department Care Team (Late st Contact Info) Description 05/31/2025 10:50 AM EDT Routine [facility] B[facility] OB [address] [place] [address] Kristan Fish PA [address] [facility] [place] [address] Procedures Procedure Name Priority Date/Time Associated Diagnosis Comments US OB GROWTH 05/25/2025 9:12 AM EDT POCT URINALYSIS DIPSTICK Routine 05/24/2025 9:13 AM EDT Third trimester ([facility]) US OB BPP W NON-STRESS 05/24/2025 6:59 AM EDT US OB BPP W NON-STRESS 05/16/2025 11:00 PM EDT US OB BPP W NON-STRESS 05/09/2025 3:51 PM EDT US OB BPP W NON-STRESS 05/02/2025 4:30 PM EDT POCT URINALYSIS DIPSTICK Routine 05/02/2025 11:00 AM EDT 32 weeks gestation of ([facility]) Third trimester ([facility]) US OB BPP W NON-STRESS 04/25/2025 9:36 PM EDT US OB BPP W NON-STRESS 04/18/2025 4:07 PM EDT POCT URINALYSIS DIPSTICK Routine 04/18/2025 1:14 PM EDT 30 weeks gestation of ([facility]) Third trimester ([facility]) US OB BPP W NON-STRESS 04/11/2025 4:05 PM EDT POCT URINALYSIS DIPSTICK Routine 04/05/2025 2:19 PM EDT Third trimester ([facility]) US OB INCOMPLETE ANATOMY 03/07/2025 12:42 PM EDT from Last 3 Months Results * US OB GROWTH (05/25/2025 9:12 AM EDT) Anatomical Region Laterality Modality Other 05/25/2025 9:12 AM EDT Narrative 05/25/2025 9:15 [place] [address] Ultrasound Report Signed Patient: CHARLENE PURVIS MR#: [id number] : 1990 Acct:[id number] Age/Sex: 34 / F ADM Date: 05/16/25 Loc: US Attending Dr: Thomas Cortes D.O. Ordering Physician: Thomas Cortes D.O. Date of Service: 05/16/25 Procedure(s): US OB growth Accession Number(s): [id number] cc: Thomas Cortes D.O.; Physician,Non-Staff M.Daisy The [address] [address] Patient Name: CHARLENE PURVIS MRN: [id number] date: 1990 Sex: F Assigned Patient Location: US Current Patient Location: Accession/Order Number: [id number] Exam Date: 05/25/2025 09:01 Report Date: 05/25/2025 [...] Peña M.D. 05/25/2025 9:12 AM Dictation Location: [place] [address] Electronically authenticated by: [id number] Y Date: 05/25/2025 09:12 Dictated By: Grace Peña M.D. Signed By: 05/25/25914 DD/ 1 TD/TT: Jet Operator: Procedure Note Radiology, Radiologist, MD - 05/25/2025 [place] [address] Ultrasound Report Signed Patient: CHARLENE PURVIS LMR#: [id number] : 1990Acct:[id number] Age/Sex: 34 / FADM Date: 05/16/25 Loc: US Attending Dr: Thomas Cortes D.O. Ordering Physician: Thomas Cortes D.O. Date of Service: 05/16/25 Procedure(s): US OB growth Accession Number(s): [id number] cc: Thomas Cortes D.O.; Physician,Non-Staff Nikky The [place] [phone] Patient Name: CHARLENE PURVIS MRN: [facility]:[id number] date: 1990 Sex: F Assigned Patient Location: US Current Patient Location: Accession/Order Number: [id number] Exam Date: 05/25/2025 09:01 Report Date: 05/25/2025 [...] Peña M.D. 05/25/2025 9:12 AM Dictation Location: [place] [address] Electronically authenticated by: [id number] Y Date: 509:12 Dictated By: Grace Peña M.D. Signed By:05/25/2515 DD/ 1 TD/TT: Jet Operator: us Thomas Sebastian DO [facility] Final Result * (ABNORMAL) POCT urinalysis dipstick manually resulted (05/24/2025 9:13 AM EDT) Only the most recent of4 [...] Result * US OB BPP W NON-STRESS (05/24/2025 6:59 AM EDT) Only the most recent of7 resultswithin the time period is included. Anatomical Region Laterality Modality Other 05/24/2025 6:59 AM EDT Narrative 05/24/2025 7:02 AM EDT [address] [address] Ultrasound Report Signed Patient: CHARLENE PURVIS MR#: [id number] : 1990 Acct:[id number] Age/Sex: 34 / F ADM Date: 05/23/25 Loc: US Attending Dr: Thomas Cortes D.O. Ordering Physician: Thomas Cortes D.O. Date of Service: 05/23/25 Procedure(s): US OB BPP w non-stress Accession Number(s): [id number] cc: Thomas Cortes D.O.; Physician,Non-Staff MTomas [address] [id number] Patient Name: CHARLENE PURVIS MRN: [id number] date: 1990 Sex: F Assigned Patient Location: [facility] Current Patient Location: Accession/Order Number: [id number] Exam Date: 05/24/2025 06:57 Report Date: 05/24/2025 06:59 At the request of: THOMAS CORTES DO Procedure: US OB BPP w non-stress BIOPHYSICAL PROFILE: CLINICAL INFORMATION: GESTATIONAL DIABETES MELITUS O24.419 COMPARISON: 05/16/2025 There is a single live intrauterine gestation in cephalic presentation. The reported gestational age is 35 weeks 3 days. The heart rate measures 159 beats per minute. FINDINGS: TONE: 1 or more episodes of activity extension and flexion of extremity or opening and closing of the hand [Y] 2/2 GROSS BODY MOVEMENTS: 3 or more discrete body or limb movements [Y] 2/2 BREATHING MOVEMENTS: 1 or more episodes of breathing lasting at least 30 seconds [Y] 2/2 BHAVANI: A single deepest vertical pocket of amniotic fluid greater than 2 cm [Y] 2/2 BHAVANI: 17.5 cm. This is in upper normal range. Total score: 8/8 US/US OB BPP w non-stress IMPRESSION: NORMAL BIOPHYSICAL PROFILE Impression dictated by: Grace Peña M.D. 05/24/2025 6:59 AM Dictation Location: [place] [address] Electronically authenticated by: [id number] Y Date: 05/24/2025 06:59 Dictated By: Grace Peña M.D. Signed By: 05/24/25 0702 DD/ 0659 TD/TT: Jet Operator: Procedure Note Radiology, Radiologist, MD - 05/24/2025 [place] [address] Ultrasound Report Signed Patient: CHARLENE PURVIS R#: [id number] : 1990Acct:[id number] Age/Sex: 34 / FADM Date: 05/23/25 Loc: US Attending Dr: Thomas Cortes D.O. Ordering Physician: Thomas Cortes D.O. Date of Service: 05/23/25 Procedure(s): US OB BPP w non-stress Accession Number(s): [id number] cc: Thomas Cortes D.O.; Physician,Non-Staff Nikky The [place] [id number] Patient Name: CHARLENE PURVIS MRN: [id number] date: 1990 Sex: F Assigned Patient Location: [facility] Current Patient Location: Accession/Order Number: [id number] Exam Date: 05/24/2025 06:57 Report Date: 05/24/2025 06:59 At the request of: THOMAS CORTES DO Procedure: US OB BPP w non-stress BIOPHYSICAL PROFILE: CLINICAL INFORMATION: GESTATIONAL DIABETES MELITUS O24.419 COMPARISON: 05/16/2025 There is a single live intrauterine gestation in cephalic presentation.The reported gestational age is 35 weeks 3 days. The heart ratemeasures 159 beats per minute. FINDINGS: TONE: 1 or more episodes of activity extension and flexion of extremity or opening and closing of the hand [Y] 2/2 GROSS BODY MOVEMENTS: 3 or more discrete body or limb movements [Y] 2/2 BREATHING MOVEMENTS: 1 or more episodes of breathing lastingat least 30 seconds [Y] 2/2 BHAVANI: A single deepest vertical pocket of amniotic fluid greater than 2 cm [Y] 2/2 BHAVANI: 17.5 cm. This is in upper normal range. Total score: 8/8 US/US OB BPP w non-stress IMPRESSION: NORMAL BIOPHYSICAL PROFILE Impression dictated by: Grace Peña M.D. 05/24/2025 6:59 AM Dictation Location: [place] [address] Electronically authenticated by: [id number] Y Date: 506:59 Dictated By: Grace Peña M.D. Signed By:05/24/25 0702 DD/ 0659 TD/TT: Jet Operator: us Thomas Cortes DO [facility] Final Result * US OB INCOMPLETE ANATOMY (03/07/2025 12:42 PM EDT) Anatomical Region Laterality Modality Other 03/07/2025 12:4 2 PM EDT Narrative 03/07/2025 12:44 PM EDT [address] [address] Ultrasound Report Signed Patient: CHARLENE PURVIS MR#: [id number] : 1990 Acct:[id number] Age/Sex: 34 / F ADM Date: 03/05/25 Loc: US Attending Dr: Thomas Sebastian D.O. Ordering Physician: Thomas Cortes D.O. Date of Service: 03/05/25 Procedure(s): US OB incomplete anatomy Accession Number(s): [id number] cc: Thomas Cortes D.O.; Physician,Non-Staff Nikky The [address] [address] Patient Name: CHARLENE PURVIS MRN: [id number] date: 1990 Sex: F Assigned Patient Location: US Current Patient Location: Accession/Order Number: [id number] Exam Date: 03/07/2025 12:39 Report Date: 03/07/2025 [...] Jr., D.O. 03/07/2025 12:42 PM Dictation Location: [place] [address] Electronically authenticated by: [id number] Y Date: 03/07/2025 12:42 Dictated By: Jacinto Rivas M.D. Signed By: 03/07/25 1244 DD/ 1242 TD/TT: Jet Operator: Procedure Note Radiology, Radiologist, MD - 03/07/2025 The [place] [id number] Ultrasound Report Signed Patient: CHARLENE PURVIS LMR#: [id number] : 1990Acct:[id number] Age/Sex: 34 / FADM Date: 03/05/25 Loc: US Attending Dr: Thomas Sebastian D.O. Ordering Physician: Thomas Cortes D.O. Date of Service: 03/05/25 Procedure(s): US OB incomplete anatomy Accession Number(s): [id number] cc: Thomas Cortes D.O.; Physician,Non-Staff Nikky [address] [address] Patient Name: CHARLENE PURVIS MRN: [id number] date: 1990 Sex: F Assigned Patient Location: US Current Patient Location: Accession/Order Number: [id number] Exam Date: 03/07/2025 12:39 Report Date: 03/07/2025 [...] Jr., D.O. 03/07/2025 12:42 PM Dictation Location: [place] [address] Electronically authenticated by: [id number] Y Date: 2:42 Dictated By: Jacinto Rivas M.D. Signed By:03/07/25 1244 DD/ 1242 TD/TT: Jet Operator: Thomas Cortes DO [facility] Final Result from Last 3 Months Insurance BS
--- OUTSIDE RECORDS SUMMARY | 2025-05-26 15:04 | XMS_ITS | Encounter Summary ---
Author Organization [facility] Address [address] [place] [address] Care Team Providers Care Chemical Test Engineer Name Role Phone Unavailable Primary Care Provider Unavailabl e Encounter Details Date Type Department Care Team (Late Contact Info) Description 03/26/2024 Orders Only [facility] OB [address] [place] [address] [place] [address] Bertha Quevedo LPN [address] [id number] Social History Tobacco Use Types Packs/Day Years [...] Description 05/31/2025 10:50 AM EDT Routine [facility] OB [address] [place] [address] Kristan Fish PA [address] [place] [address] documented as of this encounter [...]
--- OUTSIDE RECORDS SUMMARY | 2025-05-26 15:04 | XMS_ITS | Encounter Summary ---
Author Organization [facility] Address [address] [place] [address] Care Team Providers Care Prospecting Observer Name Role Phone Unavailable Primary Care Provider Unavailabl e Encounter Details Date Type Department Care Team (Late Contact Info) Description 08/08/2023 Clinisync Result Encounter [facility] External Department Unsolicited Thomas Cortes DO [address] [facility] [place] [address] Social History Tobacco Use Types Packs/Day Years [...] OB [address] [place] [phone] Kristan Fish PA [address] [place] [address] documented as of this encounter Procedures Procedure Name Priority Date/Time Associated Diagnosis Comments US OB GROWTH 08/08/2023 3:08 PM EDT documented in this encounter Results * US OB GROWTH (08/08/2023 3:08 PM EDT) Anatomical Region Laterality Modality Other 08/08/2023 3:08 PM EDT Narrative 08/08/2023 3:08 [place] [address] Ultrasound Report Signed Patient: KIRA PURVIS MR#: [id number] : 1990 Acct:[id number] Age/Sex: 32 / F ADM Date: 08/07/23 Loc: US Attending Dr: Thomas Cortes D.O. Ordering Physician: Thomas Cortes D.O. Date of Service: 08/07/23 Procedure(s): US OB growth Accession Number(s): [id number] cc: Thomas Cortes D.O.; Physician,Non-Staff [place] [id number] Patient Name: KIRA PURVIS MRN: [facility]:[id number] date: 1990 Sex: F Assigned Patient Location: [facility] Current Patient Location: US Accession/Order Number: [id number] Exam Date: 08/07/2023 16:05 Report Date: 08/08/2023 [...] Signed By: 08/08/23 1511 DD/ 1508 TD/TT: Lecturer In Computer Science: Procedure Note Radiology, Radiologist, - 08/08/2023 [place] [address] Ultrasound Report Signed Patient: KIRA PURVIS LMR#: [id number] : 1990Acct:[id number] Age/Sex: 32 / FADM Date: 08/07/23 Loc: US Attending Dr: Thomas Cortes D.O. Ordering Physician: Thomas Cortes D.O. Date of Service: 08/07/23 Procedure(s): US OB growth Accession Number(s): [id number] cc: Thomas Cortes D.O.; Physician,Non-Staff Nikky The [place] [address] Patient Name: KIRA PURVIS MRN: [facility]:[id number] date: 1990 Sex: F Assigned Patient Location: [facility] Current Patient Location: Accession/Order Number: [id number] Exam Date: 08/07/2023 16:05 Report Date: 08/08/2023 [...] M.D. Signed By:08/08/23 1511 DD/ 1508 TD/TT: Lecturer In Computer Science: us Thomas Sebastian DO [facility] Final Result documented in this encounter Visit Diagnoses Not on filedocumented in this encounter
--- OUTSIDE RECORDS SUMMARY | 2025-05-26 15:04 | XMS_ITS | Encounter Summary ---
Author Organization [facility] Address [address] [place] [address] Care Team Providers Care Senior Bookkeeper Name Role Phone Unavailable Primary Care Provider Unavailabl e Encounter Details Date Type Department Care Team (Late Contact Info) Description 02/01/2025 Abstract [facility] OB [address] [place] [address] Nolan Cortes DO [address] [place], [facility]11 Social History [...] Routine [facility] OB [address] [place] [address] Kristan Fish PA [address] [place] [address] documented as of this encounter Visit Diagnoses Not on filedocumented in this encounter
--- OUTSIDE RECORDS SUMMARY | 2025-05-26 15:04 | XMS_ITS | Encounter Summary ---
Author Organization [facility] Address [address] [place] [address] Care Team Providers Care Press Helper Name Role Phone Unavailable Primary Care Provider Unavailabl e Encounter Details Date Type Department Care Team (Late Contact Info) Description 04/06/2025 Abstract [facility] OB [address] [place] [address] Nolan Cortes [address] [place], [facility]11 Social [...]
--- OUTSIDE RECORDS SUMMARY | 2025-05-26 15:04 | XMS_ITS | Encounter Summary ---
Author Organization [facility] Address [address] [place] [address] Care Team Providers Care Control Tower Operator Name Role Phone Unavailable Primary Care Provider Unavailabl e Encounter Details Date Type Department Care Team (Late Contact Info) Description 05/23/2025 Abstract [facility] OB [address] [place] [address] Nolan Cortes DO [address] [place], [...] AM EDT Routine [facility] OB [address] [facility] [place] [address] Kristan Fish PA [address] [place] [address] documented as of this encounter Visit Diagnoses Not on filedocumented in this encounter
--- OUTSIDE RECORDS SUMMARY | 2025-05-26 15:04 | XMS_ITS | Encounter Summary ---
Author Organization [facility] Address [address] [place] [address] Care Team Providers Care Diesel Locomotive Firer/Fireman Name Role Phone Unavailable Primary Care Provider Unavailabl e Encounter Details Date Type Department Care Team ([facility] Contact Info) Description 07/18/2023 Clinisync Result Encounter [facility] External Department Unsolicited Thomas Cortes DO [address] [facility] [address] [place], [facility]11 Social History Tobacco Use Types [...] Upcoming Encounters Date Type Department Care Team ([facility] Contact Info) Description 05/31/2025 10:50 AM EDT Routine [facility] [address] [facility] [place] [address] Kristan Fish PA [address] [facility] [address] [place], [facility]11 documented as of this encounter Procedures Procedure Name Priority Date/Time Associated Diagnosis Comments US OB BPP W NON-STRESS 07/18/2023 3:07 PM EDT documented in this encounter Results * US OB BPP W NON-STRESS (07/18/2023 3:07 PM EDT) Anatomical Region Laterality Modality Other 07/18/2023 3:07 PM EDT Narrative 07/18/2023 3:07 [place] [address] Ultrasound Report Signed Patient: KIRA PURVIS MR#: [id number] 06 : 1990 Acct:[id number] Age/Sex: 32 / F ADM Date: 07/17/23 Loc: US Attending Dr: Thomas Cortes D.O. Ordering Physician: Thomas Cortes D.O. Date of Service: 07/17/23 Procedure(s): US OB BPP w non-stress Accession Number(s): [id number] cc: Thomas Cortes D.O.; Physician,Non-Staff [place] [address] Patient Name: KIRA PURVIS MRN: [facility]:[id number] date: 1990 Sex: F Assigned Patient Location: [facility] Current Patient Location: Accession/Order Number: [id number] Exam Date: 07/17/2023 16:00 Report Date: 07/18/2023 [...] M.D. Signed By: 07/18/231509 DD/ 06 TD/TT: Remnants Cutter: Procedure Note Radiology, Radiologist, - 08/01/2023 The [place] [id number] Ultrasound Report Signed Patient: KIRA PURVIS LMR#: [id number] 06 : 1990Acct:[id number] Age/Sex: 32 / FADM Date: 07/17/23 Loc: US Attending Dr: Thomas Cortes D.O. Ordering Physician: Thomas Cortes D.O. Date of Service: 07/17/23 Procedure(s): US OB BPP w non-stress Accession Number(s): [id number] cc: Thomas Cortes D.O.; Physician,Non-Staff Nikky The [place] [id number] Patient Name: KIRA PURVIS MRN: [facility]:[id number] date: 1990 Sex: F Assigned Patient Location: [facility] Current Patient Location: Accession/Order Number: [id number] Exam Date: 07/17/2023 16:00 Report Date: 07/18/2023 [...] Dillon M.D. Signed By:07/18/231509 DD/ 06 TD/TT: Remnants Cutter: us Thomas Siddiquio DO [facility] Final Result documented in this encounter Visit Diagnoses Not on filedocumented in this encounter
--- OUTSIDE RECORDS SUMMARY | 2025-05-26 15:04 | XMS_ITS | Encounter Summary ---
Author Organization [facility] Address [address] [place] [address] Care Team Providers Care Communication Instructor Name Role Phone Unavailable Primary Care Provider Unavailabl e Encounter Details Date Type Department Care Team (Late Contact Info) Description 05/23/2025 Abstract [facility] OB [address] [place] [address] Nolan Cortes DO [address] [place], [facility]11 Social History Tobacco Use Types [...] AM EDT Routine [facility] [address] [facility] [place] [address] Kristan Fish PA [address] [place] [address] documented as of this encounter Visit Diagnoses Not on filedocumented in this encounter
--- OUTSIDE RECORDS SUMMARY | 2025-05-26 15:04 | XMS_ITS | Encounter Summary ---
Author Organization [facility] Address [address] [place] [address] Care Team Providers Care Head Of Sales Name Role Phone Unavailable Primary Care Provider Unavailabl e Encounter Details Date Type Department Care Team (Late Contact Info) Description 05/24/2025 Clinisync Result Encounter [facility] External Department Unsolicited Thomas Cortes DO [address] [facility] [address] [place], [facility]11 Social History Tobacco Use Types Packs/Day Years [...] AM EDT Routine [facility] B[facility] OB [address] [facility] [place] [address] Kristan Fish PA [address] [facility] [address] [place], [place] [address] documented as of this encounter Procedures Procedure Name Priority Date/Time Associated Diagnosis Comments US OB BPP W NON-STRESS 05/24/2025 6:59 AM EDT documented in this encounter Results * US OB BPP W NON-STRESS (05/24/2025 6:59 AM EDT) Anatomical Region Laterality Modality Other 05/24/2025 6:59 AM EDT Narrative 05/24/2025 7:02 AM EDT [address] [address] Ultrasound Report Signed Patient: KIRA PURVIS MR#: [id number] : 1990 Acct:[id number] Age/Sex: 34 / F ADM Date: 05/23/25 Loc: US Attending Dr: Thomas Cortes D.O. Ordering Physician: Thomas Cortes D.O. Date of Service: 05/23/25 Procedure(s): US OB BPP w non-stress Accession Number(s): [id number] cc: Thomas Cortes D.O.; Physician,Non-Staff Nikky The [address] [id number] Patient Name: KIRA PURVIS MRN: [facility]:[id number] date: 1990 Sex: F Assigned Patient Location: [facility] Current Patient Location: Accession/Order Number: [id number] Exam Date: 05/24/2025 06:57 Report Date: 05/24/2025 [...] Peña M.D. 05/24/2025 6:59 AM Dictation Location: [place] [address] Electronically authenticated by: [id number] Y Date: 05/24/2025 06:59 Dictated By: Grace Peña M.D. Signed By: 05/24/25 0702 DD/ 0659 TD/TT: Shear Helper: Procedure Note Radiology, Radiologist, MD - 05/24/2025 [place] [address] Ultrasound Report Signed Patient: KIRA PURVIS LMR#: [id number] : 1990Acct:[id number] Age/Sex: 34 / FADM Date: 05/23/25 Loc: US Attending Dr: Thomas Cortes D.O. Ordering Physician: Thomas Cortes D.O. Date of Service: 05/23/25 Procedure(s): US OB BPP w non-stress Accession Number(s): [id number] cc: Thomas Cortes D.O.; Physician,Non-Staff Nikky The [place] [id number] Patient Name: KIRA PURVIS MRN: [facility]:[id number] date: 1990 Sex: F Assigned Patient Location: [facility] Current Patient Location: Accession/Order Number: [id number] Exam Date: 05/24/2025 06:57 Report Date: 05/24/2025 [...] Peña M.D. 05/24/2025 6:59 AM Dictation Location: [place] [address] Electronically authenticated by: [id number] Y Date: 506:59 Dictated By: Grace Peña M.D. Signed By:05/24/25 0702 DD/ 0659 TD/TT: Shear Helper: us Thomas Sebastian DO [facility] Final Result documented in this encounter Visit Diagnoses Not on filedocumented in this encounter
--- OUTSIDE RECORDS SUMMARY | 2025-05-26 15:05 | XMS_ITS | Encounter Summary ---
Author Organization [facility] Address [address] [place] [address] Care Team Providers Care Retail Selling Floor Leader Name Role Phone Unavailable Primary Care Provider Unavailabl e Encounter Details Date Type Department Care Team (Late st Contact Info) Description 04/18/2023 Abstract [facility] OB [address] [facility] [place] [address] Nolan Cortes DO [address] [facility] [address] [place], [facility]11 Social History [...] Description 05/31/2025 10:50 AM EDT Routine [facility] OB [address] [place] [address] [place] [address] Kristan Fish PA [address] [facility] [address] [place], [place] [address] documented as of this encounter Visit Diagnoses Not on filedocumented in this encounter
--- OUTSIDE RECORDS SUMMARY | 2025-05-26 15:05 | XMS_ITS | Encounter Summary ---
Demographics Address [address] [place] [address] Mobile Phone Home Phone Email Address Email Address Preferred Language Mohawk Marital Status Druze Affiliation Unknown Race White Ethnic Group Not or Lati no Author Organization [facility] [employer] tem Address [id number] [address] [place] [address] Support Name Relationship Address Phone Dariusz Purvis Emergency Contact [address] [place] [address] Sravani Jacklyn Personal Relationship [address] [place] [address] Laura Cope Personal Relationship Unknown [phone] Care Team Providers Care Electro Mechanical Solar Technician Name Role Phone Eli Azul MD Primary Care Provider + Encounter Details Date Type Department Care Team (Late st Contact Info) Description 05/24/2025 Telephone Maternal- Medicine at [facility] [address] [place] [address] Rufina Hurd CMA Social History Tobacco Use [...] Telephone Encounter - Rufina Hurd CMA - 05/24/2025 8:37 AM EDT SLIVER MACHINE OPERATOR CALLED PATIENT. NO ANSWER. LEFT VM ASKING PATIENT TO EMAIL US HER BLOOD GLUCOSE LOGS SO THATTHEY CAN BE REVIEWED BY OUR DIABETES TEAM. documented in this encounter Plan of Treatment Upcoming Encounters Date Type Department Care Team (Late st Contact Info) Description 06/02/2025 9:30 AM EDT Telemedicine Maternal- Medicine at [facility] [address] [place] [address] Iman Hall, PIPE FITTER HELPER-SALES SYSTEMS ENGINEER [address] [place] [address] documented as of this encounter Visit Diagnoses Not on filedocumented in this encounter Care Teams Electro Mechanical Solar Technician Relationship Specialty Start Date End Date Eli Azul MD PCP - General Pediatrics 06/23/18 documented as of this encounter
--- OUTSIDE RECORDS SUMMARY | 2025-05-26 15:05 | XMS_ITS | Encounter Summary ---
Author Organization [facility] Address [address] [place] [address] Care Team Providers Care Wet Char Conveyor Tender Name Role Phone Unavailable Primary Care Provider Unavailabl e Encounter Details Date Type Department Care Team (Late Contact Info) Description 05/20/2023 Abstract [facility] OB [address] [facility] [place] [address] Nolan Cortes [address] [place], [facility]11 Social History Tobacco [...] [address] [facility] [place] [address] Kristan Fish PA [address] [place], [facility]11 documented as of this encounter Visit Diagnoses Not on filedocumented in this encounter
--- OUTSIDE RECORDS SUMMARY | 2025-05-26 15:05 | XMS_ITS | Encounter Summary ---
Author Organization [facility] Address [address] [place] [address] Care Team Providers Care Supervisor Long Goods Name Role Phone Unavailable Primary Care Provider Unavailabl e Encounter Details Date Type Department Care Team (Late Contact Info) Description 04/25/2023 Abstract [facility] OB [address] [facility] [place] [address] Nloan Cortes [address] [place], [facility]11 Social History Tobacco Use Types Packs/Day [...] [facility] OB [address] [facility] [place] [address] Kristan Fish PA [address] [place], [facility]11 documented as of this encounter Visit Diagnoses Not on filedocumented in this encounter
--- OUTSIDE RECORDS SUMMARY | 2025-05-26 15:05 | XMS_ITS | Encounter Summary ---
Author Organization [facility] Address [address] [place] [address] Care Team Providers Care Event Promotions Coordinator Name Role Phone Unavailable Primary Care Provider Unavailabl e Encounter Details Date Type Department Care Team (Late st Contact Info) Description 04/14/2023 Abstract [facility] OB [address] [facility] [place] [address] Nolan Cortes DO [address] [facility] [address] [place], [facility]11 Social History Tobacco [...] Description 05/31/2025 10:50 AM EDT Routine N[facility] OB [address] [facility] [place] [address] Kristan Fish PA [address] [facility] [address] [place], [place] [address] documented as of this encounter Visit Diagnoses Not on filedocumented in this encounter
--- OUTSIDE RECORDS SUMMARY | 2025-05-26 15:05 | XMS_ITS | Encounter Summary ---
Author Organization [facility] Address [address] [place] [address] Care Team Providers Care Openstack Developer Name Role Phone Unavailable Primary Care Provider Unavailabl e Encounter Details Date Type Department Care Team (Late st Contact Info) Description 05/23/2025 Telephone [facility] OB [address] [place] [address] Danay Ortega LPN [address] [place] [address] Social History Tobacco Use Types [...] is 89. You can reach me at [phone]. Over the weekend, I noticed that my [...] OB [address] [place] [address] Kristan Fish PA [address] [facility] [place] [address] documented as of this encounter Visit Diagnoses Not on filedocumented in this encounter
--- OUTSIDE RECORDS SUMMARY | 2025-05-26 15:05 | XMS_ITS | Encounter Summary ---
Author Organization [facility] Address [address] [place] [address] Care Team Providers Care Manager Simulation Name Role Phone Unavailable Primary Care Provider Unavailabl e Encounter Details Date Type Department Care Team (Late st Contact Info) Description 04/21/2023 Abstract [facility] OB [address] [facility] [place] [address] Nolan Cortes DO [address] [facility] [address] [place], [facility]11 Social History Tobacco Use Types Packs/Day Years [...] Description 05/31/2025 10:50 AM EDT Routine N[facility] OB [address] [place] [address] [place] [address] Kristan Fish PA [address] [place], [place] [address] documented as of this encounter Visit Diagnoses Not on filedocumented in this encounter
--- OUTSIDE RECORDS SUMMARY | 2025-05-26 15:05 | XMS_ITS | Encounter Summary ---
Author Organization [facility] Address [address] [place] [address] Care Team Providers Care Welding Machine Operator Helper Arc Name Role Phone Unavailable Primary Care Provider Unavailabl e Encounter Details Date Type Department Care Team (Late Contact Info) Description 04/22/2023 Abstract [facility] OB [address] [facility] [place] [address] Nolan Cortes [address] [place], [facility] [...] OB [address] [facility] [place] [address] Kristan Fish PA [address] [place], [facility]11 documented as of this encounter Visit Diagnoses Not on filedocumented in this encounter
--- OUTSIDE RECORDS SUMMARY | 2025-05-26 15:05 | XMS_ITS | Clinical Summary ---
Demographics Address [address] [place] [address] Mobile Phone Home Phone Email Address Email Address Preferred Language Italian Marital Status Yazdanism Affiliation Unknown Race White Ethnic Group Not or Lati no Author Organization [employer] tem Address [id number] [address] [place] [address] Support Name Relationship Address Phone Dariusz Purvis Emergency Contact [address] [place] [address] Sravani Villasenor Personal Relationship [address] [place] [address] Laura Cope Personal Relationship Unknown [phone] Care Team Providers Care Nurse Substance Abuse Name Role Phone Eli Azul MD Primary [...] Encounters Date Type Department Care Team Description 05/24/2025 Telephone Maternal- Medicine at [facility] [address] [place] [address] Rufina Hurd, TAINA 04/29/2025 Telephone Maternal- Medicine at [facility] [address] [place] [address] Rufina Hurd, TAINA 04/19/2025 10:30 AM EDT Telemedicine Maternal- Medicine at [facility] [address] [place] [address] Kenya Acosta, PA-C Gestational diabetes mellitus (GDM) in second trimester controlled on oral hypoglycemic drug (Primary Dx) 04/19/2025 Travel 04/19/2025 Telephone Maternal- Medicine at [facility] [address] [place] [address] Rufina Hurd, CHICK ROOM SUPERVISOR 04/01/2025 Telephone Maternal- Medicine at [facility] [address] [place] [address] Violet Lopez RN 03/23/2025 10:30 AM EDT Telemedicine Maternal- Medicine at [facility] [address] [place] [address] Iman Hall, GABINO-PREMA Gestational diabetes mellitus (GDM) in second trimester controlled on oral hypoglycemic drug 03/23/2025 Travel 03/23/2025 Telephone Maternal- Medicine at [facility] [address] [place] [address] Rufina Hurd, CHICK ROOM SUPERVISOR 03/16/2025 Telephone Maternal- Medicine at [facility] [address] [place] [address] Violet Lopez RN 03/15/2025 Orders Only Maternal- Medicine at [facility] [address] [place] [address] Rufina Hurd, [facility] 03/08/2025 1:00 PM EDT Office Visit Maternal- Medicine at [facility] [address] [place] [address] Kenya Acosta, PASalomeC Gestational diabetes mellitus (GDM) in second trimester controlled on oral hypoglycemic drug (Primary Dx) 03/08/2025 Travel 03/08/2025 Telephone Maternal- Medicine at [facility] [address] [place] [address] Rufina Hurd, TAINA 03/04/2025 Telephone Maternal- Medicine at [facility] [address] [place] [address] Shima Renee RN 03/02/2025 Telephone Maternal- Medicine at [facility] [address] [place] [address] Shima Renee RN 02/24/2025 Telephone Maternal- Medicine at [facility] [address] [place] [address] Jewels Pedersen LD from Last 3 Months [...] 9:30 AM EDT Telemedicine Maternal- Medicine at [facility] [address] [place] [address] Iman Hall, METER CALIBRATOR-GENERAL NEUROLOGIST [address] [place] [address] Health Maintenance Due Date Last Done Comments [...] TRANSCRIBED RESULTS from Last 3 Months Insurance [address] [phone] ANTHEM Care Teams Nurse Substance Abuse Relationship Specialty Start Date End Date Eli Azul MD PCP - General Pediatrics 06/23/18
--- OUTSIDE RECORDS SUMMARY | 2025-05-26 15:05 | XMS_ITS | Encounter Summary ---
Author Organization [facility] Address [address] [place] [address] Care Team Providers Care Airset Molder Name Role Phone Unavailable Primary Care Provider Unavailabl e Encounter Details Date Type Department Care Team (Late Contact Info) Description 06/11/2023 Abstract [facility] OB [address] [place] [address] [place] [address] Kristan Fish, PA [address] [place] [address] [address] [place], [facility] [...] Description 05/31/2025 10:50 AM EDT Routine [facility] OB [address] [place] [address] [place] [address] Kristan Fish, PA [address] [place] [address] [place] [address] documented as of this encounter Visit Diagnoses Not on filedocumented in this encounter
--- OUTSIDE RECORDS SUMMARY | 2025-05-26 15:05 | XMS_ITS | Encounter Summary ---
Author Organization [facility] Address [address] [place] [address] Care Team Providers Care Sales And Marketing Assistant Name Role Phone Unavailable Primary Care Provider Unavailabl e Encounter Details Date Type Department Care Team (Late Contact Info) Description 04/24/2023 Abstract [facility] OB [address] [place] [address] Nolan Cortes [address] Rocael [place], [facility]11 Social History Tobacco Use Types [...] OB [address] [place] [address] Kristan Fish PA [address] [place], [facility]11 documented as of this encounter Visit Diagnoses Not on filedocumented in this encounter
--- OUTSIDE RECORDS SUMMARY | 2025-05-26 15:05 | XMS_ITS | Encounter Summary ---
Demographics Address [address] [place] [address] Mobile Phone Home Phone Email Address Email Address Preferred Language Hungarian Marital Status Worship Affiliation Unknown Race White Ethnic Group Not or Lati no Author Organization [facility] [email or web address] tem Address [id number] [address] [place] [address] Support Name Relationship Address Phone Dariusz Purvis Emergency Contact [address] [place] [address] Sravani Villasenor Personal Relationship [address] [place] [address] Laura Cope Personal Relationship Unknown [phone] Care Team Providers Care Police Detective Name Role Phone Eli Azul MD Primary Care Provider + Encounter Details Date Type Department Care Team (Late st Contact Info) Description 03/15/2025 Orders Only Maternal- Medicine at [facility] [address] [place] [phone] Rufina Hurd CMA Social History Tobacco Use [...] 9:30 AM EDT Telemedicine Maternal- Medicine at [facility] [address] [place] [address] Iman Hall, [facility] [address] [place] [address] documented as of this encounter Visit Diagnoses Not on filedocumented in this encounter Care Teams Police Detective Relationship Specialty Start Date End Date Eli Azul MD PCP - General Pediatrics 06/23/18 documented as of this encounter
--- OUTSIDE RECORDS SUMMARY | 2025-05-26 15:05 | XMS_ITS | Encounter Summary ---
Author Organization [facility] Address [address] [place] [address] Care Team Providers Care Title Inspector Name Role Phone Unavailable Primary Care Provider Unavailabl e Encounter Details Date Type Department Care Team (Late st Contact Info) Description 04/14/2023 Abstract [facility] OB [address] [place] [phone] Nolan Cortes DO [address] Rocael Jeffries, [facility] [...] Description 05/31/2025 10:50 AM EDT Routine [facility] OB [address] [place] [address] Kristan Fish PA [address] [place], [place] [id number] documented as of this encounter Visit Diagnoses Not on filedocumented in this encounter
[2025-05-26 15:07] VITALS: BP 120/79; PULSE 94
--- NOTE | 2025-05-26 15:40 | US_ITS ---
[address] [address] Patient Name: KIRA CASTELLON MRN: [id number] date: 1990 Sex: F Assigned Patient Location: [facility] Current Patient Location: Accession/Order Number: [id number] Exam Date: 05/26/2025 16:46 Report Date: 05/26/2025 16:48 At the request of: THOMAS OFRMAN DO Procedure: US OB BPP w non-stress US OB BPP w non-stress 05/26/2025 4:31 PM SIGNS AND SYMPTOMS: ^09/17/2024 ^GDM ^Y PROTOCOL: Transabdominal sonographic images of the gravid uterus COMPARISON: None FINDINGS: The heart rate is 145 bpm. The amniotic fluid index is 11.5 cm with the deepest vertical pocket measuring 3.96 cm. Biophysical profile: breathing movements: 2/2 Gross body movements: 2/2 tone: 2/2 Amniotic fluid volume: 2/2 US/US OB BPP w non-stress IMPRESSION: Biophysical profile: 06/17 Impression dictated by: Marquis Maxwell M.D. 05/26/2025 4:48 PM Dictation Location: [place] [address] Electronically authenticated by: [id number] Y Date: 05/26/2025 16:48
== END 2025-05-26 16:35 | disposition home or self-care (01) ==
LOC: FBCO 15:01 → FBC 15:02
PROVIDERS: Visit Provider Obstetrics & Gynecology
DX: O24.419 Gestational diabetes mellitus in pregnancy, unspecified control (principal); Z3A.35 35 weeks gestation of pregnancy
CPT/HCPCS: 59025; 76818

== ENCOUNTER 2025-05-30 15:01 | Outpatient (OUT) | payer BC, SELFPAY ==
--- NOTE | 2025-05-30 15:04 | US_ITS ---
[address] [address] Patient Name: KIRA CASTELLON MRN: [id number] date: 1990 Sex: F Assigned Patient Location: [facility] Current Patient Location: [facility] Accession/Order Number: [id number] Exam Date: 05/30/2025 15:40 Report Date: 05/30/2025 15:41 At the request of: THOMAS FORMAN DO Procedure: US OB BPP w non-stress Biophysical profile. Reason for exam: Gestational diabetes COMPARISON: BPP 05/26/2025 TECHNIQUE: Transabdominal imaging of the gravid uterus was obtained. FINDINGS: The editor publications reports a BPP of 8 out of 8. BHAVANI is normal at 11 cm. heart rate 138 bpm. US/US OB BPP w non-stress IMPRESSION: BPP 8 out of 8. Impression dictated by: Jacinto Rivas Jr., D.O. 05/30/2025 3:41 PM Dictation Location: [place] [address] Electronically authenticated by: [id number] Y Date: 05/30/2025 15:41
[2025-05-30 15:32] VITALS: BP 135/76; PULSE 90
== END 2025-05-30 16:05 | disposition home or self-care (01) ==
LOC: US 15:01 → FBC 15:04
PROVIDERS: Visit Provider Obstetrics & Gynecology
DX: O24.419 Gestational diabetes mellitus in pregnancy, unspecified control (principal); O99.283 Endocrine, nutritional and metabolic diseases complicating pregnancy, third trimester; Z3A.36 36 weeks gestation of pregnancy
CPT/HCPCS: 76818

== ENCOUNTER 2025-05-31 22:34 | Outpatient (REF) | payer BC, SELFPAY ==
--- OUTSIDE RECORDS SUMMARY | 2025-05-31 22:38 | XMS_ITS | CCD ---
Author Organization [facility]iniSy[facility] Care Team Providers Care Complaint Adjuster Name Role Phone PETRA ., DR WHITAKER Admitting Unavailabl e KARASIK ., DR WHITAKER Attending Unavailabl e KARASIK ., DR WHITAKER Consulting Unavailabl e MISC, DR BELL Primary Care Unavailable POLINA ., KRISTAN Admitting Unavailable SEBASTIAN ., DR GUZMAN Consulting Unavailable REQUEST, NONE LISTED Primary Care Unavaila ble POLINA ., KRISTAN Attending Unavailable SEBASTIAN ., DR GUZMAN Attending [...] GUZMAN Admitting Unavailable Unavailable Primary Care Provider Addie Connor MD, Melony M Primary Care Provider ALEXANDRIA IRAHETA Attending Unavailable SEBASTIAN, NOLAN R Referring Unavailable GEETA, MELONY Sibley Primary Care Unavailabl e KENYA ACOSTA Attending Unavailable SEBASTIAN, NOLAN R Referring Unavailable GEETA, MELONY Sibley Primary Care Unavailabl e KAREEM CUMMINGS Attending Unavailable SEBASTIAN, NOLAN R Referring Unavailable GEETA, MELONY Sibley Primary Care UnavailKENYA Samuels Attending Unavailable MELONY CONNOR Referring Unavailabl e GEETA, MELONY Sibley Primary Care Unavailabl e SEBASTIAN, NOLAN Attending Unavailable SEBASTIAN, NOLAN Attending Unavailable SEBASTIAN, NOLAN Attending Unavailable SEBASTIAN, NOLAN Attending Unavailable SEBASTIAN, NOLAN Attending Unavailable SEBASTIAN, NOLAN Attending Unavailable POLINA, KRISTAN Attending Unavailable SEBASTIAN, NOLAN Attending Unavailable POLINA, KRISTAN Attending Unavailable Medications Current Medications Medication Drug Class(es) Dates Sig (Normalized) Sig (Original) aspirin 81 mg delayed release oral tablet (20 sources) Platelet Aggregation Inhibitor, Nonsteroidal Anti-inflammatory Drug take 1 tablet by mouth once daily aspirin 81 MG EC tablet Take 81 mg by mouth Daily Active aspirin 81 mg ch ewable tablet Chew 1 tablet (81 mg total) and swallow in the morning. Active Blood Glucose Monitoring Sup pl (Accu-Chek Guide Me) w/Device kit (20 sources) Start: 02-21-2025 Blood Glucose Monitoring Suppl (Accu-Chek Guide Me) w/Device kit Indications: Gestational diabetes mellitus (GDM), antepartum, gestational diabetes method of control unspecified ([facility]) , Elevated glucose tolerance test USE TO CHECK BLOOD GLUCOSE IN THE MORNING PRIOR TO BREAKFAST AND ONE HOUR AFTER EACH MEAL FOR A TOTAL OF FOUR TIMES DAILY 1 kit 02/21/2025 Active Start: 02-21-2025 Blood Glucose Monitoring Suppl (Accu-Chek Guide Me) w/Device kit Indications: Gestational diabetes mellitus (GDM), antepartum, gestational diabetes method of control unspecified , Elevated glucose tolerance test USE TO CHECK BLOOD GLUCOSE IN THE MORNING PRIOR TO BREAKFAST AND ONE HOUR AFTER EACH MEAL FOR A TOTAL OF FOUR TIMES DAILY 1 kit 02/21/2025 Active Blood Glucose Monitoring Suppl (D-Care Glucometer) w/Device kit (1 source) Start: 01-24-2025 End: 01-24-2026 Blood Glucose Monitoring Suppl (D-Care Glucometer) w/Device kit Indications: Gestational diabetes mellitus (GDM), antepartum, gestational diabetes method of control unspecified , Elevated glucose tolerance test 1 kit Daily Use four times daily to check FSBS. In the morning prior to breakfast & 1 hour after each meal for a total of 4times daily. 1 kit 01/24/2025 01/24/2026 Active blood-glucose meter (RELION MICRO GLUCOSE MONITOR) misc (14 sources) blood-glucose me ter (RELION MICRO GLUCOSE MONITOR) misc by miscellaneous route. Active isopropyl alcohol 0.7 ml/ml medicated pad (20 sources) Start: 01-24-2025 Alcohol Swabs (Alcohol Prep Pad) 70 % pads Indications: Gestational diabetes mellitus (GDM), antepartum, gestational diabetes method of control unspecified ([facility]) , Elevated glucose tolerance test Apply 1 Pad topically Daily Use four times daily to check FSBS. 150 each 3 01/24/2025 Active 24 hr metFORMIN hydrochloride 500 mg extended release oral tablet (20 sources) Biguanide Start: 03-08-2025 End: 03-23-2025 take 1 tablet by mouth every twenty-four hours in the morning, then take 2 tablets by mouth in the evening metFORMIN XR (GLUCOPHAGE XR) 500 mg 24 hr tablet Indications: Gestational diabetes mellitus (GDM) in second trimester controlled on oral hypoglycemic drug Take 500mg in am with breakfast and 1000 mg in pm with dinner 60 tablet 4 03/23/2025 Active take 1 tablet by lila th at mealtime, then take 1 tablet by mouth every twenty-four hours metFORMIN, OSM, (Fortamet) 1000 MG 24 hr tablet Take 1,000 mg by mouth in the evening. Take with meals Do not crush, chew, or split. Active ondansetron 4 mg disintegrating oral tablet (20 sources) Serotonin-3 Receptor Antagonist Start: 2024 End: 12-24-2024 take 1 tablet by mouth every six hours as needed for nausea and vomiting and nausea and nausea ondansetron ODT (Zofran-ODT) 4 MG disintegrating tablet Indications: Nausea Take 1 tablet (4 mg) by mouth every 6 (six) hours if needed for nausea or vomiting 30 tablet 2 2024 12/24/2024 Active Start: 08-25-2021 End: 04-18-2025 take 1 tablet by mouth every eight hours as needed for nausea ondansetron ODT (ZOFRAN-ODT) 4 mg disintegrating tablet Dissolve 1 tablet (4 mg total) on tongue every 8 (eight) hours as needed for nausea for up to 10 doses. 10 tablet 08/25/2021 Active End: 03-23-2025 take 1 tablet by mouth every eight hours as needed for nausea and vomiting ondansetron (ZOFRAN) 4 mg tablet Take 1 tablet (4 mg total) by mouth every 8 (eight) hours as needed for nausea or vomiting. 03/23/2025 Discontinued (Alternate therapy) MV & Min w/FA-DHA ( Adult Gummy/DHA/FA) 0.4-25 MG chewable tablet (20 sources) Start: 12-30-2024 MV & Min w/FA-DHA ( Adult Gummy/DHA/FA) 0.4-25 MG chewable tablet Chew 1 each Daily 12/30/2024 Active Start: 11-29-2024 End: 12-29-2024 MV & Min [...] PO) Take by mouth. 11/26/2024 Discontinued (Other) vit calc,iron,folic ( VITAMIN ORAL) (14 sources) take 1 tablet by mouth in the morning vit calc,iron,folic ( VITAMIN ORAL) Take 1 tablet by mouth in the morning. Active take 1 tablet by mouth once ofelia y vit calc,iron,folic ( VITAMIN ORAL) Take 1 tablet by mouth daily. Active Completed/Discontinued Medications Medication Drug Class(es) Dates Sig (Normalized) Sig (Original) glyBURIDE 2.5 mg oral tablet (7 sources) Sulfonylurea Start: 08-22-2021 End: 03-08-2025 take 1.5 tablets by mouth once daily at bedtime glyBURIDE (DIABETA) 2.5 mg tablet Take 1.5 tablets (3.75 mg total) by mouth once daily at bedtime. Pt takes 2.5 mg at bedtime 90 tablet 3 08/22/2021 03/08/2025 Discontinued (Therapy completed) 3 ml insulin glargine 100 unt/ml pen injector (1 source) Insulin Analog Start: 03-23-2025 End: 03-23-2025 insulin glargine (LANTUS SOLOSTAR U-100 INSULIN) 100 unit/mL (3 mL) insulin pen Prime with 2 units, then inject 10 units SQ into ABD each evening 15 mL 3 03/23/2025 03/23/2025 Discontinued (Alternate therapy) labetalol hydrochloride 100 mg oral tablet (7 sources) beta-Adrenergic Del End: 03-08-2025 take 1 tablet by mouth twice daily labetaloL (NORMODYNE) 100 mg tablet Take 100 mg by mouth 2 (two) times a day. 03/08/2025 Discontinued (Therapy completed) progesterone 200 mg oral capsule (10 sources) Progesterone Start: 02-24-2023 End: 03-23-2025 progesterone (PROMETRIUM) 200 mg capsule Indications: History of delivery Place 200 mg Inside vagina every night until 36 weeks. 90 capsule 3 02/24/2023 03/23/2025 Discontinued (Therapy completed) Problems Active Problems Problem Classification Problem Date Documented Da te Episodic/Chronic Administrative/social admission (2 sources) Patient encounter status; Translations: [Other specified counseling] Onset: 02-16-2025 02-16-2025 Episodic Diabetes mellitus without complication (4 sources) Impaired glucose tolerance (oral); Translations: [IMPAIRED GLUCOSE TOLERANCE ORAL] Onset: 03-29-2023 Episodic Fluid and electrolyte disorders (2 sources) Dehydration; Translations: [Hypokalemia] Onset: 01-30-2023 Episodic Hypertension complicating ; childbirth and the puerperium (20 sources) Benign essential hypertension in obstetric context; Translations: [Pre-existing essential hypertension complicating , unspecified trimester] Onset: 04-18-2023 04-18-2023 Chronic Hypertension complicating ; childbirth and the puerperium (2 sources) -induced hypertension; Translations: [Gestational [-induced] hypertension without significant proteinuria, unspecified trimester] 05-24-2025 Episodic Immunizations and screening for infectious disease (2 sources) Encounter for screening for human papillomavirus (HPV); Translations: [Contact with and (suspected) exposure to infections with a predominantly sexual mode of transmission] Onset: 02-21-2023 Episodic Menstrual disorders (4 sources) Irregular menstruation, unspecified; Translations: [Missed period] Onset: 01-23-2023 Chronic Other circulatory disease (2 sources) H/O: hypertension; Translations: [Personal history of other diseases of the circulatory system] 04-05-2025 Episodic Other complications of (1 source) Other specified related conditions, first trimester; Translations: [OTH SPEC PREG RELATED COND 1ST TRI] Onset: 01-30-2023 Episodic Other female genital disorders (1 source) Other specified noninflammatory disorders of vagina; Translations: [OTH SPEC NONINFLAMMATORY D/O VAGINA] Onset: 02-21-2023 Episodic Other gastrointestinal disorders (1 source) Diarrhea, unspecified; Translations: [DIARRHEA UNSPECIFIED] Onset: 01-30-2023 Episodic Other and delivery including normal (20 sources) Encounter for supervision of normal , [...] [14 weeks gestation of ] 12-28-2024 Episodic Residual codes; unclassified (2 sources) Gestation period, 22 weeks; Translations: [22 weeks gestation of ] 02-21-2025 Episodic Residual codes; unclassified (2 sources) Gestation period, 25 weeks; Translations: [25 weeks gestation of ] 03-14-2025 Episodic Residual codes; unclassified (2 sources) Gestation period, 28 weeks; Translations: [28 weeks gestation of ] 04-05-2025 Episodic Residual codes; unclassified (2 sources) Gestation period, 30 weeks; Translations: [30 weeks gestation of ] 04-18-2025 Episodic Residual codes; unclassified (2 sources) Gestation period, 32 weeks; Translations: [32 weeks gestation of ] 05-02-2025 Episodic Residual codes; unclassified (2 sources) Gestation period, 34 weeks; Translations: [34 weeks gestation of ] 05-17-2025 Episodic Residual codes; unclassified (2 sources) Gestation period, 35 weeks; Translations: [35 weeks gestation of ] 05-24-2025 Episodic Residual codes; unclassified (2 sources) Gestation period, 36 weeks; Translations: [36 weeks gestation of ] 05-31-2025 Episodic Unclassified (1 source) Med Start-GDM Onset: 03-08-2025 Past or Other Problems Problem Classification Problem Date Documented Da te Episodic/Chronic Diabetes or abnormal glucose tolerance complicating ; childbirth; or the puerperium (20 sources) Gestational diabetes mellitus; Translations: [Gestational diabetes mellitus in , unspecified control] Onset: 04-18-2023 04-18-2023 Episodic Nausea and vomiting (20 sources) Nausea with vomiting, unspecified; Translations: [Nausea] Onset: 01-28-2023 Episodic Other female genital disorders (20 sources) H/O: premature delivery; Translations: [Personal history of pre-term labor] Onset: 02-24-2023 06-11-2023 Episodic Other injuries and conditions due to external causes (20 sources) Other specified effects of external causes, initial encounter; Translations: [Contact with and (suspected) exposure to other potentially hazardous substances] Onset: 04-18-2023 04-18-2023 Episodic Results Test Name Value Interpretation Reference Range Facility Urinalysis macro (dipstick) panel (U)on 05-31-2025 Bilirubin, UA Negative Negative - 4(70) +++ mg/dL [facility] Blood, UA Positive Negative - 50 Eliceo/mcL [facility] Comment on above: Trace Clarity, UA Clear [facility] Color, UA Yellow [facility] Glucose, UA Negative Negative - 2000(110) ++++ mg/dL [facility] Interpretation and review of laboratory results Abnormal [facility] Ketones, UA Positive Negative - 160(16) ++++ mg/dL [facility] Comment on above: 80mg/dL Leukocytes, UA Positive Negative - 500+++ Danielle/mcL [facility] Comment on above: small Nitrite, UA Negative Negative - Positive [facility] pH, UA 7 5 - 9 [facility] Protein, UA Positive Negative - 2000(20) ++++ mg/dL [facility] Comment on above: 30mg/dL Spec Grav, UA 1.015 1 - 1.03 [facility] Urobilinogen, UA 0.2 0.2 - 12 mg/dL [facility] US OB BPP W NON-STRESS on 05-30-2025 [place] [address] Ultrasound Report Signed Patient: CHARLENE PURVIS MR#: [id number] : 1990 Acct:[id number] Age/Sex: 34 / F ADM Date: 05/30/25 Loc: [facility] 250-[address]: Nolan Cortes D.O. Ordering Physician: Nolan Cortes D.O. Date of Service: 05/30/25 Procedure(s): US OB BPP w non-stress Accession Number(s): [id number] cc: Nolan Cortes D.O.; Physician,Non-Staff MTomas [facility] [address] [address] Patient Name: CHARLENE PURVIS MRN: [facility] [employer] [facility] [employer]:[id number] date: 1990 Sex: F Assigned Patient Location: [facility] Current Patient Location: [facility] Accession/Order Number: [id number] Exam Date: 05/30/2025 15:40 Report Date: 05/30/2025 15:41 At the request of: NOLAN CORTES DO Procedure: US OB BPP w non-stress Biophysical profile. Reason for exam: Gestational diabetes COMPARISON: BPP 05/26/2025 TECHNIQUE: Transabdominal imaging of the gravid uterus was obtained. FINDINGS: The hoop cutter reports a BPP of 8 out of 8. BHAVANI is normal at 11 cm. heart rate 138 bpm. US/US OB BPP w non-stress IMPRESSION: BPP 8 out of 8. Impression dictated by: Jacinto Rivas Jr., D.O. 05/30/2025 3:41 PM Dictation Location: [place] [address] Electronically authenticated by: [id number] Y Date: 05/30/2025 15:41 Dictated By: Jacinto Rivas M.D. Signed By: 05/30/25 1544 DD/ 1541 TD/TT: Environmental Planner: [facility] Radiology, Radiologist, MD - 05/30/2025 [place] [address] Ultrasound Report Signed Patient: CHARLENE PURVIS MR#: [id number] : 1990 Acct:[id number] Age/Sex: 34 / F ADM Date: 05/30/25 Loc: [facility] 250-[address]: Nolan Cortes D.O. Ordering Physician: Nolan Cortes D.O. Date of Service: 05/30/25 Procedure(s): US OB BPP w non-stress Accession Number(s): [id number] cc: Nolan Cortes D.O.; Physician,Non-Staff Nikky [facility] [address] [address] Patient Name: CHARLENE PURVIS MRN: [employer] [employer] [facility] [employer]:[id number] date: 1990 Sex: F Assigned Patient Location: [facility] Current Patient Location: [facility] Accession/Order Number: [id number] Exam Date: 05/30/2025 15:40 Report Date: 05/30/2025 15:41 At the request of: NOLAN CORTES DO Procedure: US OB BPP w non-stress Biophysical profile. Reason for exam: Gestational diabetes COMPARISON: BPP 05/26/2025 TECHNIQUE: Transabdominal imaging of the gravid uterus was obtained. FINDINGS: The hoop cutter reports a BPP of 8 out of 8. BHAVANI is normal at 11 cm. heart rate 138 bpm. US/US OB BPP w non-stress IMPRESSION: BPP 8 out of 8. Impression dictated by: Jacinto Rivas Jr., D.O. 05/30/2025 3:41 PM Dictation Location: [place] [address] Electronically authenticated by: [id number] Y Date: 05/30/2025 15:41 Dictated By: Jacinto Rivas M.D. Signed By: 05/30/25 1544 DD/ 1541 TD/TT: Environmental Planner: [facility] Radiology Study observation (narrative) [facility] US OB BPP W NON-STRESS Ordered By: Radiologist Radiology on 05-30-2025 [facility] [employer] Work Phone: US OB BPP W NON-STRESS on 05-26-2025 [place] [address] Ultrasound Report Signed Patient: CHARLENE PURVIS MR#: [id number] : 1990 Acct:[id number] Age/Sex: 34 / F ADM Date: 05/26/25 Loc: [facility] Attending Dr: Nolan Cortes D.O. Ordering Physician: Noaln Cortes D.O. Date of Service: 05/26/25 Procedure(s): US OB BPP w non-stress Accession Number(s): [id number] cc: Nolan Cortes D.O.; Physician,Non-Staff M.[facility]aisy [facility] [address] [address] Patient Name: CHARLENE PURVIS MRN: [facility] [facility] [employer] [facility] [employer]:[id number] date: 1990 Sex: F Assigned Patient Location: [facility] Current Patient Location: Accession/Order Number: [id number] Exam Date: 05/26/2025 16:46 Report Date: 05/26/2025 16:48 At the request of: NOLAN CORTES DO Procedure: US OB BPP w non-stress US OB BPP w non-stress 05/26/2025 4:31 PM SIGNS AND SYMPTOMS: 09/17/2024 GDM Y PROTOCOL: Transabdominal sonographic images of the gravid uterus COMPARISON: None FINDINGS: The heart rate is 145 bpm. The amniotic fluid index is 11.5 cm with the deepest vertical pocket measuring 3.96 cm. Biophysical profile: breathing movements: 2/2 Gross body movements: 2/2 tone: 2/2 Amniotic fluid volume: 2/2 US/US OB BPP w non-stress IMPRESSION: Biophysical profile: 06/17 Impression dictated by: Marquis Maxwell M.D. 05/26/2025 4:48 PM Dictation Location: [place] [address] Electronically authenticated by: [id number] Y Date: 05/26/2025 16:48 Dictated By: Marquis Maxwell M.D. Signed By: 05/26/251650 DD/ 47 TD/TT: Environmental Planner: [facility] Radiology, Radiologist, - 05/26/2025 [place] [address] Ultrasound Report Signed Patient: CHARLENE PURVIS MR#: [id number] : 1990 Acct:[id number] Age/Sex: 34 / F ADM Date: 05/26/25 Loc: [facility] Attending Dr: Nolan Cortes D.O. Ordering Physician: Nolan Cortes D.O. Date of Service: 05/26/25 Procedure(s): US OB BPP w non-stress Accession Number(s): [id number] cc: Nolan Cortes D.O.; Physician,Non-Staff MTomas [address] [address] Patient Name: CHARLENE PURVIS MRN: [facility] [facility] [employer] [facility] [employer]:[id number] date: 1990 Sex: F Assigned Patient Location: [facility] Current Patient Location: Accession/Order Number: [id number] Exam Date: 05/26/2025 16:46 Report Date: 05/26/2025 16:48 At the request of: NOLAN CORTES DO Procedure: US OB BPP w non-stress US OB BPP w non-stress 05/26/2025 4:31 PM SIGNS AND SYMPTOMS: 09/17/2024 GDM Y PROTOCOL: Transabdominal sonographic images of the gravid uterus COMPARISON: None FINDINGS: The heart rate is 145 bpm. The amniotic fluid index is 11.5 cm with the deepest vertical pocket measuring 3.96 cm. Biophysical profile: breathing movements: 2/2 Gross body movements: 2/2 tone: 2/2 Amniotic fluid volume: 2/2 US/US OB BPP w non-stress IMPRESSION: Biophysical profile: 06/17 Impression dictated by: Marquis Maxwell M.D. 05/26/2025 4:48 PM Dictation Location: [place] [address] Electronically authenticated by: [id number] Y Date: 05/26/2025 16:48 Dictated By: Marquis Maxwell M.D. Signed By: 05/26/251650 DD/ 47 TD/TT: Environmental Planner: [facility] Radiology Study observation (narrative) [facility] US OB BPP W NON-STRESS Ordered By: Radiologist Radiology on 05-26-2025 [facility] Work Phone: US OB GROWTHon 05-25-2025 [place] [address] Ultrasound Report Signed Patient: CHARLENE PURVIS MR#: [id number] : 1990 Acct:[id number] Age/Sex: 34 / F ADM Date: 05/16/25 Loc: US Attending Dr: Nolan Cortes D.O. Ordering Physician: Nolan Cortes D.O. Date of Service: 05/16/25 Procedure(s): US OB growth Accession Number(s): [id number] cc: Nolan Cortes D.O.; Physician,Non-Staff [facility] [place] [address] Patient Name: CHARLENE PURVIS MRN: [employer] [employer] [facility] [employer]:[id number] date: 1990 Sex: F Assigned Patient Location: US Current Patient Location: Accession/Order Number: [id number] Exam Date: 05/25/2025 09:01 Report Date: 05/25/2025 09:12 At the request of: NOLAN CORTES DO Procedure: US OB growth ULTRASOUND [...] Peña M.D. 05/25/2025 9:12 AM Dictation Location: [place] [address] Electronically authenticated by: [id number] Y Date: 05/25/2025 09:12 Dictated By: Grace Peña M.D. Signed By: 05/25/2515 DD/ 1 TD/TT: Environmental Planner: [facility] Radiology, Radiologist, MD - 05/25/2025 [place] [address] Ultrasound Report Signed Patient: CHARLENE PURVIS MR#: [id number] : 1990 Acct:[id number] Age/Sex: 34 / F ADM Date: 05/16/25 Loc: US Attending Dr: Nolan Cortes D.O. Ordering Physician: Nolan Cortes D.O. Date of Service: 05/16/25 Procedure(s): US OB growth Accession Number(s): [id number] cc: Nolan Cortes D.O.; Physician,Non-Staff Nikky [facility] [place] [id number] Patient Name: CHARLENE PURVIS MRN: [facility]:[id number] date: 1990 Sex: F Assigned Patient Location: US Current Patient Location: Accession/Order Number: [id number] Exam Date: 05/25/2025 09:01 Report Date: 05/25/2025 09:12 At the request of: NOLAN CORTES DO Procedure: US OB growth ULTRASOUND [...] Peña M.D. 05/25/2025 9:12 AM Dictation Location: [place] [address] Electronically authenticated by: [id number] Y Date: 05/25/2025 09:12 Dictated By: Grace Peña M.D. Signed By: 05/25/25914 DD/ 1 TD/TT: Environmental Planner: [facility] Radiology Study observation (narrative) [facility] US OB GROWTHOrdered By: Melanie ologarnol Radiology on 05-25-2025 [facility] Work Phone: US OB BPP W NON-STRESS on 05-24-2025 [place] [address] Ultrasound Report Signed Patient: CHARLENE PURVIS MR#: [id number] : 1990 Acct:[id number] Age/Sex: 34 / F ADM Date: 05/23/25 Loc: US Attending Dr: Nolan Cortes D.O. Ordering Physician: Nolan Cortes D.O. Date of Service: 05/23/25 Procedure(s): US OB BPP w non-stress Accession Number(s): [id number] cc: Nolan Cortes D.O.; Physician,Non-Staff Nikky [facility] [place] [id number] Patient Name: CHARLENE PURVIS MRN: [employer] [facility] [employer]:[id number] date: 1990 Sex: F Assigned Patient Location: [facility] Current Patient Location: Accession/Order Number: [id number] Exam Date: 05/24/2025 06:57 Report Date: 05/24/2025 06:59 At the request of: NOLAN CORTES DO Procedure: US OB BPP w [...] Peña M.D. 05/24/2025 6:59 AM Dictation Location: [place] [address] Electronically authenticated by: [id number] Y Date: 05/24/2025 06:59 Dictated By: Grace Peña M.D. Signed By: 05/24/25701 DD/ TD/TT: Environmental Planner: [facility] Radiology, Radiologist, MD - 05/24/2025 [place] [address] Ultrasound Report Signed Patient: CHARLENE PURVIS MR#: [id number] : 1990 Acct:[id number] Age/Sex: 34 / F ADM Date: 05/23/25 Loc: US Attending Dr: Nolan Cortes D.O. Ordering Physician: Nolan Cortes D.O. Date of Service: 05/23/25 Procedure(s): US OB BPP w non-stress Accession Number(s): [id number] cc: Nolan Cortes D.O.; Physician,Non-Staff Nikky The [address] [address] Patient Name: CHARLENE PURVIS MRN: [employer]:[id number] date: 1990 Sex: F Assigned Patient Location: [facility] Current Patient Location: Accession/Order Number: [id number] Exam Date: 05/24/2025 06:57 Report Date: 05/24/2025 06:59 At the request of: NOLAN CORTES DO Procedure: US OB BPP w [...] Peña M.D. 05/24/2025 6:59 AM Dictation Location: [place] [address] Electronically authenticated by: [id number] Y Date: 05/24/2025 06:59 Dictated By: Grace Peña M.D. Signed By: 05/24/25 0702 DD/ 0659 TD/TT: Environmental Planner: [facility] Radiology Study observation (narrative) [facility] OB BPP W NON-STRESS Ordered By: Radiologist Radiology on 05-24-2025 [facility] Work Phone: Urinalysis macro (dipstick) panel (U)on 05-24-2025 Bilirubin, UA Trace Negative - 4(70) +++ mg/dL [facility] Blood, UA Negative Negative - 50 Eliceo/mcL [facility] Clarity, UA Clear [facility] Color, UA Yellow [facility] Glucose, UA Negative Negative - 2000(110) ++++ mg/dL [facility] Interpretation and review of laboratory results Abnormal [facility] Ketones, UA Negative Negative - 160(16) ++++ mg/dL [facility] Leukocytes, UA Negative Negative - 500+++ Danielle/mcL [facility] Nitrite, UA Negative Negative - Positive [facility] pH, UA 6 5 - 9 [facility] Protein, UA Trace Negative - 2000(20) ++++ mg/dL [facility] Spec Grav, UA 1.03 1 - 1.03 [facility] [facility] Urob[facility]ogen, UA 1.0 0.2 - 12 mg/dL [facility] US OB BPP W NON-STRESS on 05-16-2025 [place] [address] Ultrasound Report Signed Patient: CHARLENE PURVIS MR#: [id number] : 1990 Acct:[id number] Age/Sex: 34 / F ADM Date: 05/16/25 Loc: US Attending Dr: Nolan Cortes D.O. Ordering Physician: Nolan Cortes D.O. Date of Service: 05/16/25 Procedure(s): US OB BPP w non-stress Accession Number(s): [id number] cc: Nolan Cortes D.O.; Physician,Non-Staff [place] [id number] Patient Name: CHARLENE PURVIS MRN: [id number] date: 1990 Sex: F Assigned Patient Location: US Current Patient Location: Accession/Order Number: [id number] Exam Date: 05/16/2025 22:56 Report Date: 05/16/2025 23:00 At the request of: NOLAN CORTES DO Procedure: US OB BPP w non-stress Ultrasound biophysical profile Indication for exam: Gestational diabetes COMPARISON: 05/09/2025 FINDINGS: Single live intrauterine gestation with score 8/8 heart rate of 184 beats per minutes BHAVANI 17.05 cm US/US OB BPP w non-stress IMPRESSION: BP biophysical profile 8 out of 8 Impression dictated by: Mehul Brewer M.D. 05/16/2025 11:00 PM Dictation Location: [place] [address] Electronically authenticated by: [id number] Y Date: 05/16/2025 23:00 Dictated By: Mehul Brewer M.D. Signed By: 07/06/03 2303 DD/ 99 TD/TT: Environmental Planner: [facility] Radiology, Radiologist, - 05/16/2025 The [place] [id number] Ultrasound Report Signed Patient: CHARLENE PURVIS MR#: [id number] : 1990 Acct:[id number] Age/Sex: 34 / F ADM Date: 05/16/25 Loc: US Attending Dr: Nolan Cortes D.O. Ordering Physician: Nolan Cortes D.O. Date of Service: 05/16/25 Procedure(s): US OB BPP w non-stress Accession Number(s): [id number] cc: Nolan Cortes D.O.; Physician,Non-Staff [place] The [place] [id number] Patient Name: CHARLENE PURVIS MRN: [facility]:[id number] date: 1990 Sex: F Assigned Patient Location: US Current Patient Location: Accession/Order Number: [id number] Exam Date: 05/16/2025 22:56 Report Date: 05/16/2025 23:00 At the request of: NOLAN CORTES DO Procedure: US OB BPP w non-stress Ultrasound biophysical profile Indication for exam: Gestational diabetes COMPARISON: 05/09/2025 FINDINGS: Single live intrauterine gestation with score 8/8 heart rate of 184 beats per minutes BHAVANI 17.05 cm US/US OB BPP w non-stress IMPRESSION: BP biophysical profile 8 out of 8 Impression dictated by: Mehul Brewer M.D. 05/16/2025 11:00 PM Dictation Location: [place] [address] Electronically authenticated by: [id number] Y Date: 05/16/2025 23:00 Dictated By: Mehul Brewer M.D. Signed By: 05/16/252302 DD/ 99 TD/TT: Environmental Planner: [facility] Radiology Study observation (narrative) [facility] US OB BPP W NON-STRESS Ordered By: Radiologist Radiology on 05-16-2025 [employer] [employer] Work Phone: US OB BPP W NON-STRESS on 05-09-2025 [place] [address] Ultrasound Report Signed Patient: CHARLENE PURVIS MR#: [id number] : 1990 Acct:[id number] Age/Sex: 34 / F ADM Date: 05/09/25 Loc: [facility] 250-[address]: Nolan Cortes D.O. Ordering Physician: Nolan Cortes D.O. Date of Service: 05/09/25 Procedure(s): US OB BPP w non-stress Accession Number(s): [id number] cc: Nolan Cortes D.O.; Physician,Non-Staff [place] [address] [address] Patient Name: CHARLENE PURVIS MRN: [id number] date: 1990 Sex: F Assigned Patient Location: [facility] Current Patient Location: [facility] Accession/Order Number: [id number] Exam Date: 05/09/2025 15:50 Report Date: 05/09/2025 15:51 At the request of: NOLAN CORTES DO Procedure: US OB BPP w non-stress Biophysical profile. Reason for exam: Gestational diabetes. COMPARISON: BDP 05/02/2025. TECHNIQUE: Transabdominal imaging of the gravid uterus was obtained. FINDINGS: Spirits Model reports a BPP of 8 out of 8. BHAVANI is normal at 13.2 cm. heart rate 161 bpm. US/US OB BPP w non-stress Impression: BPP 8 out of 8. Impression dictated by: Jacinto Rivas Jr., D.O. 05/09/2025 3:51 PM Dictation Location: [place] [address] Electronically authenticated by: [id number] Y Date: 05/09/2025 15:51 Dictated By: Jacinto Rivas M.D. Signed By: 05/09/25 1554 DD/ 50 TD/TT: Environmental Planner: [facility] Radiology, Radiologist, - 05/09/2025 [place] [address] Ultrasound Report Signed Patient: CHARLENE PURVIS MR#: [id number] : 1990 Acct:[id number] Age/Sex: 34 / F ADM Date: 05/09/25 Loc: [facility] 250-[address]: Nolan Cortes D.O. Ordering Physician: Nolan Cortes D.O. Date of Service: 05/09/25 Procedure(s): US OB BPP w non-stress Accession Number(s): [id number] cc: Nolan Cortes D.O.; Physician,Non-Staff [place] The [place] [id number] Patient Name: CHARLENE PURVIS MRN: [facility]:[id number] date: 1990 Sex: F Assigned Patient Location: [facility] Current Patient Location: [facility] Accession/Order Number: [id number] Exam Date: 05/09/2025 15:50 Report Date: 05/09/2025 15:51 At the request of: NOLAN CORTES DO Procedure: US OB BPP w non-stress Biophysical profile. Reason for exam: Gestational diabetes. COMPARISON: BDP 05/02/2025. TECHNIQUE: Transabdominal imaging of the gravid uterus was obtained. FINDINGS: Spirits Model reports a BPP of 8 out of 8. BHAVANI is normal at 13.2 cm. heart rate 161 bpm. US/US OB BPP w non-stress Impression: BPP 8 out of 8. Impression dictated by: Jacinto Rivas Jr., D.O. 05/09/2025 3:51 PM Dictation Location: [place] [address] Electronically authenticated by: [id number] Y Date: 05/09/2025 15:51 Dictated By: Jacinto Rivas M.D. Signed By: 05/09/25 1554 DD/ 50 TD/TT: Environmental Planner: [facility] Radiology Study observation (narrative) [facility] US OB BPP W NON-STRESS Ordered By: Radiologist Radiology on 05-09-2025 [facility] Work Phone: US OB BPP W NON-STRESS on 05-02-2025 [place] [address] Ultrasound Report Signed Patient: CHARLENE PURVIS MR#: [id number] : 1990 Acct:[id number] Age/Sex: 34 / F ADM Date: 05/02/25 Loc: US Attending Dr: Nolan Cortes D.O. Ordering Physician: Nolan Cortes D.O. Date of Service: 05/02/25 Procedure(s): US OB BPP w non-stress Accession Number(s): [id number] cc: Nolan Cortes D.O.; Physician,Non-Staff [place] [id number] Patient Name: CHARLENE PURVIS MRN: [id number] date: 1990 Sex: F Assigned Patient Location: [facility] Current Patient Location: Accession/Order Number: [id number] Exam Date: 05/02/2025 16:28 Report Date: 05/02/2025 16:30 At the request of: NOLAN CORTES DO Procedure: US OB BPP w [...] Maxwell M.D. 05/02/2025 4:30 PM Dictation Location: [place] [address] Electronically authenticated by: [id number] Y Date: 05/02/2025 16:30 Dictated By: Marquis Maxwell M.D. Signed By: 05/02/25 1632 DD/ 163 TD/TT: Environmental Planner: [facility] Radiology, Radiologist, MD - 05/02/2025 [place] [address] Ultrasound Report Signed Patient: CHARLENE PURVIS MR#: [id number] : 1990 Acct:[id number] Age/Sex: 34 / F ADM Date: 05/02/25 Loc: US Attending Dr: Nolan Cortes D.O. Ordering Physician: Nolan Cortes D.O. Date of Service: 05/02/25 Procedure(s): US OB BPP w non-stress Accession Number(s): [id number] cc: Nolan Cortes D.O.; Physician,Non-Staff [place] The [place] [id number] Patient Name: CHARLENE PURVIS MRN: [facility] [facility]:[id number] date: 1990 Sex: F Assigned Patient Location: [facility] Current Patient Location: Accession/Order Number: [id number] Exam Date: 05/02/2025 16:28 Report Date: 05/02/2025 16:30 At the request of: NOLAN CORTES DO Procedure: US OB BPP w [...] Maxwell M.D. 05/02/2025 4:30 PM Dictation Location: [place] [address] Electronically authenticated by: [id number] Y Date: 05/02/2025 16:30 Dictated By: Marquis Maxwell M.D. Signed By: 05/02/251631 DD/ 29 TD/TT: Environmental Planner: [facility] Radiology Study observation (narrative) [facility] US OB BPP W NON-STRESS Ordered By: Radiologist Radiology on 05-02-2025 [facility] Work Phone: Urinalysis macro (dipstick) panel (U)on 05-02-2025 Bilirubin, UA Negative Negative - 4(70) +++ mg/dL [facility] Blood, UA Negative Negative - 50 Eliceo/mcL [facility] Clarity, UA Clear [facility] Color, UA Yellow [facility] Glucose, UA Negative Negative - 2000(110) ++++ mg/dL [facility] Interpretation and review of laboratory results Abnormal [facility] Ketones, UA Positive Negative - 160(16) ++++ mg/dL [facility] Comment on above: 160 Leukocytes, UA Positive Negative - 500+++ Danielle/mcL [facility] Comment on above: small Nitrite, UA Negative Negative - Positive [facility] pH, UA 6.5 5 - 9 [facility] Protein, UA Positive Negative - 2000(20) ++++ mg/dL [facility] Comment on above: 30 Spec Grav, UA 1.02 1 - 1.03 [facility] Urobilinogen, UA 0.2 0.2 - 12 mg/dL [facility] US OB BPP W NON-STRESS on 04-25-2025 [place] [address] Ultrasound Report Signed Patient: CHARLENE PURVIS MR#: [id number] : 1990 Acct:[id number] Age/Sex: 34 / F ADM Date: 04/25/25 Loc: US Attending Dr: Nolan Cortes D.O. Ordering Physician: Nolan Cortes D.O. Date of Service: 04/25/25 Procedure(s): US OB BPP w non-stress Accession Number(s): [id number] cc: Nolan Cortes D.O.; Physician,Non-Staff Nikky The [address] [address] Patient Name: CHARLENE PURVIS MRN: [facility]:[id number] date: 1990 Sex: F Assigned Patient Location: [facility] Current Patient Location: Accession/Order Number: [id number] Exam Date: 04/25/2025 21:35 Report Date: 04/25/2025 21:36 At the request of: NOLAN CORTES DO Procedure: US OB BPP w [...] Olvera M.D. 04/25/2025 9:36 PM Dictation Location: [place] [address] Electronically authenticated by: [id number] Y Date: 04/25/2025 21:36 Dictated By: Harlan Olvera D.O. Signed By: 04/25/252137 DD/ 35 TD/TT: Environmental Planner: [facility] Radiology, Radiologist, MD - 04/25/[address] [address] Ultrasound Report Signed Patient: CHARLENE PURVIS MR#: [id number] : 1990 Acct:[id number] Age/Sex: 34 / F ADM Date: 04/25/25 Loc: US Attending Dr: Nolan Cortes D.O. Ordering Physician: Nolan Cortes D.O. Date of Service: 04/25/25 Procedure(s): US OB BPP w non-stress Accession Number(s): [id number] cc: Nolan Cortes D.O.; Physician,Non-Staff [place] [id number] Patient Name: CHARLENE PURVIS MRN: [id number]:[id number] date: 1990 Sex: F Assigned Patient Location: [facility] Current Patient Location: Accession/Order Number: [id number] Exam Date: 04/25/2025 21:35 Report Date: 04/25/2025 21:36 At the request of: NOLAN CORTES DO Procedure: US OB BPP w [...] Olvera M.D. 04/25/2025 9:36 PM Dictation Location: [place] [address] Electronically authenticated by: [id number] Y Date: 04/25/2025 21:36 Dictated By: Harlan Olvera D.O. Signed By: 04/25/252137 DD/ 35 TD/TT: Environmental Planner: [facility] Radiology Study observation (narrative) [facility] US OB BPP W NON-STRESS Ordered By: Radiologist Radiology on 04-25-2025 [facility] Work Phone: US OB BPP W NON-STRESS on 04-18-2025 [place] [address] Ultrasound Report Signed Patient: CHARLENE PURVIS MR#: [id number] : 1990 Acct:[id number] Age/Sex: 34 / F ADM Date: 04/18/25 Loc: US Attending Dr: Nolan Cortes D.O. Ordering Physician: Nolan Cortes D.O. Date of Service: 04/18/25 Procedure(s): US OB BPP w non-stress Accession Number(s): [id number] cc: Nolan Cortes D.O.; Physician,Non-Staff Nikky The [address] [address] Patient Name: CHARLENE PURVIS MRN: [facility] [employer] [facility] [employer]:[id number] date: 1990 Sex: F Assigned Patient Location: [facility] Current Patient Location: Accession/Order Number: [id number] Exam Date: 04/18/2025 16:06 Report Date: 04/18/2025 16:07 At the request of: NOLAN CORTES DO Procedure: US OB BPP w [...] Olvera M.D. 04/18/2025 4:07 PM Dictation Location: [place] [address] Electronically authenticated by: [id number] Y Date: 04/18/2025 16:07 Dictated By: Harlan Olvera D.O. Signed By: 04/18/25 1609 DD/ 1607 TD/TT: Environmental Planner: [facility] Radiology, Radiologist, - 04/18/2025 [place] [address] Ultrasound Report Signed Patient: CHARLENE PURVIS MR#: [id number] : 1990 Acct:[id number] Age/Sex: 34 / F ADM Date: 04/18/25 Loc: US Attending Dr: Nolan Cortes D.O. Ordering Physician: Nolan Cortes D.O. Date of Service: 04/18/25 Procedure(s): US OB BPP w non-stress Accession Number(s): [id number] cc: Nolan Cortes D.O.; Physician,Non-Staff Nikky The [address] [address] Patient Name: CHARLENE PURVIS MRN: [id number]:[id number] date: 1990 Sex: F Assigned Patient Location: [facility] Current Patient Location: Accession/Order Number: [id number] Exam Date: 04/18/2025 16:06 Report Date: 04/18/2025 16:07 At the request of: NOLAN CORTES DO Procedure: US OB BPP w [...] Olvera M.D. 04/18/2025 4:07 PM Dictation Location: [place] [address] Electronically authenticated by: [id number] Y Date: 04/18/2025 16:07 Dictated By: Harlan Olvera D.O. Signed By: 04/18/25 1609 DD/ 1607 TD/TT: Environmental Planner: [facility] Radiology Study observation (narrative) [facility] US OB BPP W NON-STRESS Ordered By: Radiologist Radiology on 04-18-2025 [facility] Work Phone: Urinalysis macro (dipstick) panel (U)on 04-18-2025 Bilirubin, UA Negative Negative - 4(70) +++ mg/dL [facility] Blood, UA Negative Negative - 50 Eliceo/mcL [facility] Clarity, UA Clear [facility] Color, UA Light Yellow [facility] Glucose, UA Positive Negative - 1999(110) ++++ mg/dL [facility] Comment on above: 250 Interpretation and review of laboratory results Abnormal [facility] Ketones, UA Positive Negative - 160(16) ++++ mg/dL [facility] Comment on above: 15 Leukocytes, UA Positive Negative - 500+++ Danielle/mcL [facility] Comment on above: small Nitrite, UA Negative Negative - Positive [facility] pH, UA 6 5 - 9 [facility] Protein, UA Negative Negative - 1999(20) ++++ mg/dL [facility] Spec Grav, UA 1.005 1 - 1.03 [facility] Urobilinogen, UA 0.2 0.2 - 12 mg/dL [facility] US OB BPP W NON-STRESS on 04-11-2025 [place] [address] Ultrasound Report Signed Patient: CHARLENE PURVIS MR#: [id number] : 1990 Acct:[id number] Age/Sex: 34 / F ADM Date: 04/11/25 Loc: US Attending Dr: Nolan Cortes D.O. Ordering Physician: Nolan Cortes D.O. Date of Service: 04/11/25 Procedure(s): US OB BPP w non-stress Accession Number(s): [id number] cc: Nolan Cortes D.O.; Physician,Non-Staff Nikky The [place] [address] Patient Name: CAHRLENE PURVIS MRN: [id number]:[id number] date: 1990 Sex: F Assigned Patient Location: [facility] Current Patient Location: Accession/Order Number: [id number] Exam Date: 04/11/2025 16:04 Report Date: 04/11/2025 16:05 At the request of: NOLAN CORTES DO Procedure: US OB BPP w [...] Olvera M.D. 04/11/2025 4:05 PM Dictation Location: [facility] Electronically authenticated by: [id number] Y Date: 04/11/2025 16:05 Dictated By: Harlan Olvera D.O. Signed By: 04/11/25 1607 DD/ 04 TD/TT: Environmental Planner: [facility] Radiology, Radiologist, - 04/11/2025 [place] [address] Ultrasound Report Signed Patient: CHARLENE PURVIS MR#: [id number] : 1990 Acct:[id number] Age/Sex: 34 / F ADM Date: 04/11/25 Loc: US Attending Dr: Nolan Cortes D.O. Ordering Physician: Nolan Cortes D.O. Date of Service: 04/11/25 Procedure(s): US OB BPP w non-stress Accession Number(s): [id number] cc: Nolan Cortes D.O.; Physician,Non-Staff Nik[place] The [place] [id number] Patient Name: CHARLENE PURVIS MRN: [facility] [employer] [facility] [employer]:[id number] date: 1990 Sex: F Assigned Patient Location: [facility] Current Patient Location: Accession/Order Number: [id number] Exam Date: 04/11/2025 16:04 Report Date: 04/11/2025 16:05 At the request of: NOLAN CORTES DO Procedure: US OB BPP w [...] Olvera M.D. 04/11/2025 4:05 PM Dictation Location: [place] [address] Electronically authenticated by: [id number] Y Date: 04/11/2025 16:05 Dictated By: Harlan Olvera D.O. Signed By: 04/11/251606 DD/ 04 TD/TT: Environmental Planner: [facility] Radiology Study observation (narrative) [facility] US OB BPP W NON-STRESS Ordered By: Radiologist Radiology on 04-11-2025 [facility] Work Phone: Urinalysis macro (dipstick) panel (U)on 04-05-2025 Bilirubin, UA Negative Negative - 4(70) +++ mg/dL [facility] Blood, UA Negative Negative - 50 Eliceo/mcL [facility] Clarity, UA Clear [facility] Color, UA Yellow [facility] Glucose, UA Positive Negative - 2000(110) ++++ mg/dL [facility] Comment on above: 100mg/dL Interpretation and review of laboratory results Abnormal [facility] Ketones, UA Positive Negative - 160(16) ++++ mg/dL [facility] Comment on above: Trace Leukocytes, UA Positive Negative - 500+++ Danielle/mcL [facility] Comment on above: small Nitrite, UA Negative Negative - Positive [facility] pH, UA 6 5 - 9 [facility] Protein, UA Trace Negative - 2000(20) ++++ mg/dL [facility] Spec Grav, UA 1.025 1 - 1.03 [facility] Urobilinogen, UA 0.2 0.2 - 12 mg/dL [facility] POCT Hemoglobin A1con 2024 HbA1c (Bld) [Mass fraction] 5.8 % 4 - 7 % [facility] US OB INCOMPLETE ANATOMYon 0 03-07-2025 [place] [address] Ultrasound Report Signed Patient: CHARLENE PURVIS MR#: [id number] : 1990 Acct:[id number] Age/Sex: 34 / F ADM Date: 03/05/25 Loc: US Attending Dr: Nolan Cortes D.O. Ordering Physician: Nolan Cortes D.O. Date of Service: 03/05/25 Procedure(s): US OB incomplete anatomy Accession Number(s): [id number] cc: Nolan Cortes D.O.; Physician,Non-Staff MTomas The [address] [address] Patient Name: CHARLENE PURVIS MRN: [facility] [employer] [facility] [employer]:[id number] date: 1990 Sex: F Assigned Patient Location: US Current Patient Location: Accession/Order Number: [id number] Exam Date: 03/07/2025 12:39 Report Date: 03/07/2025 12:42 At the request of: NOLAN CORTES DO Procedure: US OB incomplete anatomy [...] Jr., D.O. 03/07/2025 12:42 PM Dictation Location: [place] [address] Electronically authenticated by: [id number] Y Date: 03/07/2025 12:42 Dictated By: Jacinto Rivas M.D. Signed By: 03/07/25 1244 DD/ 1242 TD/TT: Environmental Planner: [facility] Radiology, Radiologist, - 03/07/2025 [place] [address] Ultrasound Report Signed Patient: CHARLENE PURVIS MR#: [id number] : 1990 Acct:[id number] Age/Sex: 34 / F ADM Date: 03/05/25 Loc: US Attending Dr: Nolan Cortes D.O. Ordering Physician: Nolan Cortes D.O. Date of Service: 03/05/25 Procedure(s): US OB incomplete anatomy Accession Number(s): [id number] cc: Nolan Cortes D.O.; Physician,Non-Staff Nikky The [place] [id number] Patient Name: CHARLENE PURVIS MRN: [facility] [employer] [facility] [employer]:[id number] date: 1990 Sex: F Assigned Patient Location: Current Patient Location: Accession/Order Number: [id number] Exam Date: 03/07/2025 12:39 Report Date: 03/07/2025 12:42 At the request of: NOLAN CORTES DO Procedure: US OB incomplete anatomy [...] Jr., D.O. 03/07/2025 12:42 PM Dictation Location: [facility] Electronically authenticated by: [id number] Y Date: 03/07/2025 12:42 Dictated By: Jacinto Rivas M.D. Signed By: 03/07/25 1244 DD/ 1242 TD/TT: Environmental Planner: [facility] Radiology Study observation (narrative) [facility] US OB INCOMPLETE ANATOMYOrde red By: Radiologist Radiology on 03-07-2025 [facility] Work Phone: Urinalysis macro (dipstick) panel (U)on 02-21-2025 Bilirubin, UA Negative Negative - 4(70) +++ mg/dL [facility] Blood, UA Negative Negative - 50 Eliceo/mcL [facility] Clarity, UA Clear [facility] Color, UA Yellow [facility] Glucose, UA Negative Negative - 1999(110) ++++ mg/dL [facility] Interpretation and review of laboratory results Abnormal [facility] Ketones, UA Positive Negative - 160(16) ++++ mg/dL [facility] Comment on above: 40mg/dL Leukocytes, UA Positive Negative - 500+++ Danielle/mcL [facility] Comment on above: small Nitrite, UA Negative Negative - Positive [facility] pH, UA 6 5 - 9 [facility] Protein, UA Positive Negative - 2000(20) ++++ mg/dL [facility] Comment on above: 30mg/dL Spec Grav, UA 1.02 1 - 1.03 [facility] Urobilinogen, UA 0.2 0.2 - 12 mg/dL [facility] Glucose random or fasting- P OCTon 02-16-2025 External Glucose Fasting Or Random (Fbs) 110 [facility] [employer] [facility] US OB 14+ WEEKS ANATOMY SCAN on 02-14-2025 US OB 14+ WEEKS ANATOMY SCAN EXAM: US OB 14+ WEEKS ANATOMY SCAN [...] II, MD, PHD at 15-Feb-2025 11:25:23 PM [facility] Normal Not Available Comment on above: Order Comment: US OB ANATOMY SINGLE W US OB CERVICAL LENGTH Estimated Date of Delivery: 06/24/25 Gestational Age as of 12/06/2024: 11w3d AFP, SERUM, OPEN SPINA BIFID Aon 02-09-2025 AFP MOM 0.84 . [facility] AFP VALUE 34.5 ng/mL . [facility] COMMENT: Comment . [facility] Comment on above: Tiffany Shah , Ph.D., [facility] Director References: Available Upon Request. Multiples Of Median Cutoffs For AFP Elevations Steiner 2.5 Black 2.8 IDD 2.0 Twins 4.5 Abbreviation Definitions IDD - Insulin Dep Diabetes OSBR - Open Spina Bifida Risk For further inquiries contact [facility] at [phone]. This test was developed and its performance characteristics determined by [facility] [employer]. It has not been cleared or approved by the Food and Drug Administration. Performed at: [facility] [address] [place], [place] [id number] Engagement Quality Consultant: Rogelio Rice [facility], Phone: [phone] GEST. AGE ON COLLECTION DATE 20.4 . weeks [facility] GESTAT. AGE BASED ON LMP . [facility] Comment on above: Recalculations are n ot recommended when gestational dating by LMP and ultrasound are within 10 days. INSULIN DEP DIABETES No . [facility] INTERPRETATION Comment . [facility] Comment on above: Interpretation: Scre en Negative This result is screen negative for [...] Customer Services to discuss available options. The [employer] recommends amniocentesis be offered to women age 35 and older. [age] [facility] MULTIPLE GESTATION No . [facility] [place] [address] [place] [address] . [facility] RACE . [facility] RESULTS Report . [facility] TEST RESULTS: Negative . [facility] WEIGHT 289 . lbs [facility] N N LMP [id number] 3 18 N 1 Y 289 N N N N N White/ [facility] Chlamydia/GC by PCR Holley Sw abon 01-24-2025 Gonorrhoeae Dna(Pcr) Not detected Pr [facility] Chlamydia/GC by PCR ThinPrep fluidon 01-24-2025 Chlamydia Dna(Pcr) Not detected [facility] No Panel Informationon 01-24 [facility] ALL CBC WITH AUTO DIFFon BASOPHILS ABSOLUTE AUTO 0 [facility] Basophils/100 WBC (Bld) 0.3 % 0.2 - 2.0 % [facility] Eosinophils/100 WBC (Bld) 3.7 % 0.9 - 7.0 % [facility] Erythrocyte distribution width (RBC) [Ratio] 13.1 % 11.0 - 15.0 % [facility] IMMATURE GRANULOCYTES ABS AUTO 0.04 High [facility] Immature granulocytes/100 WBC (Bld) 0.4 % 0.0 - 0.5 % [facility] Interpretation and review of laboratory results Abnormal [facility] LYMPHOCYTES ABSOLUTE AUTO 2 [facility] Lymphocytes/100 WBC (Bld) 21.3 % 20.5 - 60.0 % [facility] MCH (RBC) [Entitic mass] 32.6 pg 26.7 - 34.0 pg [facility] MCHC (RBC) [Mass/Vol] 34.8 g/dL 29.9 - 35.2 g/dL [facility] MCV (RBC) [Entitic vol] 93.6 fL 81.0 - 99.0 fL [facility] MONOCYTES ABSOLUTE AUTO 0.5 [facility] Monocytes/100 WBC (Bld) 5.1 % 1.7 - 12.0 % [facility] NEUTROPHILS ABSOLUTE AUTO 6.4 [facility] Neutrophils/100 WBC (Bld) 69.2 % 43.0 - 75.0 % [facility] Platelet mean volume (Bld) [Entitic vol] 10.6 fL 9.5 - 13.5 fL [facility] TBH EO # 0.3 [facility] PLT 139 Low [facility] TB RBC 4.36 [facility] TB WBC 9.2 [facility] CBC without diffon Platelets (Bld) [#/Vol] 139 10*3/uL [facility] Glucose tolerance, 1 houron 01-08-2025 Glucose Tolerance Test 1 Hour 168 [facility] Laboratory - Hematology and Cell countson 01-08-2025 Hematocrit (Bld) [Volume fraction] 40.8 % [facility] Hemoglobin (Bld) [Mass/Vol] 14.2 g/dL [facility] No Panel Informationon 01-08 [facility] Urinalysis macro (dipstick) panel (U)on 12-28-2024 Bilirubin, UA Negative Negative - 4(70) +++ mg/dL [facility] Blood, UA Negative Negative - 50 Eliceo/mcL [facility] Clarity, UA Clear [facility] Color, UA Yellow [facility] Glucose, UA Positive Negative - 2000(110) ++++ mg/dL [facility] Comment on above: 250mg/dL Interpretation and review of laboratory results Abnormal [facility] Ketones, UA Negative Negative - 160(16) ++++ mg/dL [facility] Leukocytes, UA Trace Negative - 500+++ Danielle/mcL [facility] Nitrite, UA Negative Negative - Positive [facility] pH, UA 6 5 - 9 [facility] Protein, UA Positive Negative - 2000(20) ++++ mg/dL [facility] Comment on above: 30mg/dL Spec Grav, UA 1.03 1 - 1.03 [facility] Urobilinogen, UA 0.2 0.2 - 12 mg/dL [facility] ALL CBC WITH AUTO DIFFon BASOPHILS ABSOLUTE AUTO 0 [facility] Basophils/100 WBC (Bld) 0.3 % 0.2 - 2.0 % [facility] Eosinophils/100 WBC (Bld) 4.4 % 0.9 - 7.0 % [facility] Erythrocyte distribution width (RBC) [Ratio] 12 % 11.0 - 15.0 % [facility] IMMATURE GRANULOCYTES ABS AUTO 0.03 [facility] Immature granulocytes/100 WBC (Bld) 0.3 % 0.0 - 0.5 % [facility] LYMPHOCYTES ABSOLUTE AUTO 2.1 [facility] Lymphocytes/100 WBC (Bld) 24.6 % 20.5 - 60.0 % [facility] MCH (RBC) [Entitic mass] 31.7 pg 26.7 - 34.0 pg [facility] MCHC (RBC) [Mass/Vol] 34.4 g/dL 29.9 - 35.2 g/dL [facility] MCV (RBC) [Entitic vol] 92.1 fL 81.0 - 99.0 fL [facility] MONOCYTES ABSOLUTE AUTO 0.6 [facility] Monocytes/100 WBC (Bld) 6.9 % 1.7 - 12.0 % [facility] NEUTROPHILS ABSOLUTE AUTO 5.5 [facility] Neutrophils/100 WBC (Bld) 63.5 % 43.0 - 75.0 % [facility] Platelet mean volume (Bld) [Entitic vol] 9.9 fL 9.5 - 13.5 fL [facility] TBH EO # 0.4 [facility] PLT 209 [facility] TB RBC 4.8 [facility] TB WBC 8.7 [facility] CBC without diffon 5 Platelets (Bld) [#/Vol] 209 10*3/uL [facility] Drug Screen, Urineon 025 Amphetamine/Methamph etamine Negative [facility] Barbiturates Negative [facility] Benzodiazepines Negative [facility] Cocaine Metabolite Negative [facility] Methadone Negative [facility] Opiates Negative [facility] Oxycodone Negative [facility] Phencyclidine Negative [facility] Thc Marijuana, Urine Negative [facility] Free Cell DNAon 2024 Free Cell Dna LOW RISK [facility] HIV 1&2 AB/AG Screen (P24 AG )on 11-27-2024 HIV 1&2 AB/AG Non-Reactive [facility] Hemoglobin A1con 11-27-2024 HbA1c (Bld) [Mass fraction] 5.5 % 4.0 - 6.0 % [facility] Comment on above: AVERAGE GLUCOSE 111 Hepatitis B surface antigeno n 11-27-2024 Hepatitis B Surface Antigen Negative [facility] Laboratory - Hematology and Cell countson 11-27-2024 Hematocrit (Bld) [Volume fraction] 44.2 % [facility] Hemoglobin (Bld) [Mass/Vol] 15.2 g/dL [facility] No Panel Informationon 11-27 [facility] Rubella IGG immune statuson 11-27-2024 Rubella immune IgG 1.4 [facility] Syphilis Total(Unknown Syphi lis Status)on 11-27-2024 Syphilis Non-Reactive [facility] Type and screenon 11-27-2024 Abo/Rh(D) Negative [facility] GTT 3 HR PREGon 03-29-2023 Glucose [Mass/Vol] 107 mg/dL Critically high 74-106 T [facility] Comment on above: Performed By: #### G TT3P #### [facility] [address] [place] [address] Dr. Loyd Coppola Glucose [Mass/Vol] 203 mg/dL Normal [facility] Comment on above: Performed By: #### G TT3P #### [facility] [address] [place] [address] Dr. Loyd Coppola Glucose [Mass/Vol] 191 mg/dL Normal [facility] Comment on above: Performed By: #### G TT3P #### [facility] [address] [address] [address] Loyd Coppola Glucose [Mass/Vol] 121 mg/dL Normal [facility] Comment on above: Performed By: #### G TT3P #### [facility] [address] [address] [address] Loyd Coppola AFP MATERNAL FOR SPINA BIFID Aon 03-23-2023 AFP MoM 0.70 Normal [facility] Comment on above: Performed By: #### JUSTIN CHAVARRIARO #### [facility] [address] [address] [address] Loyd Coppola AFP Value 18.1 ng/mL Normal [facility] Comment on above: Performed By: #### JUSTIN CHAVARRIARO #### [facility] [address] [place] [address] Dr. Loyd Coppola AFP, Serum for Spina Bifida Report Normal [facility] Comment on above: Performed By: #### E MEGHANN, UMICRO #### [facility] [address] [place] [address] Dr. Loyd Coppola Comment Comment Normal [facility] Comment on above: Result Comment: Eboni Shah, Ph.D., [facility] Director . References: Available Upon Request. . Multiples Of Median Cutoffs For AFP Elevations Steiner 2.5 Black 2.8 IDD 2.0 Twins 4.5 Abbreviation Definitions IDD - Insulin Dep Diabetes OSBR - Open Spina Bifida Risk . For further inquiries contact [facility] [facility] at [phone]. . This test was developed and its performance characteristics determined by [employer]. It has not been cleared or approved by the Food and Drug Administration. Performed By: #### MORGAN CHAVARRIAICRO #### [facility] [address] [place] [address] Dr. Loyd Coppola Gest Age Collection Date 16.4 weeks Normal [facility] Comment on above: Performed By: #### MORGAN CHAVARRIAICRO #### [facility] [address] [place] [address] Dr. Loyd Coppola Gestat, Age Based on As provided Normal [facility] Comment on above: Result Comment: Reca lculations are not recommended when gestational dating by LMP and ultrasound are within 10 days. Performed By: #### Suzi ZAVALETA UMICRO #### [facility] [address] [place] [address] Dr. Loyd Coppola Insulin Dep Diabetes No Normal [facility] Comment on above: Performed By: #### Suzi ZAVALETA UMICRO #### [facility] [address] [place] [address] Dr. Loyd Coppola Interpretation Comment Normal [facility] [place] Comment on above: Result Comment: Inte rpretation: [...] Customer Services to discuss available options. The [employer] recommends amniocentesis be offered to women age 35 and older. Performed By: #### E MEGHANN UMICRO #### [facility] [address] [place] [address] Dr. Loyd Coppola [age] [facility] Comment on above: Performed By: #### E RUR, UMICRO #### [facility] [address] [place] [address] Dr. Loyd Coppola Multiple Gestation No [facility] Comment on above: Performed By: #### E RUR, UMICRO #### [facility] [address] [place] [address] Dr. Loyd Coppola OS[place] [address] [place] [address] [facility] Comment on above: Performed By: #### E RUR, UMICRO #### [facility] [address] [place] [address] Dr. Loyd Coppola PDF . [facility] Comment on above: Performed By: #### E RUR, UMICRO #### [facility] [address] [place] [address] Dr. Loyd Coppola Race [facility] Comment on above: Performed By: #### E RUR, UMICRO #### [facility] [address] [place] [address] Dr. Loyd Coppola Test Results: Negative [facility] Comment on above: Performed By: #### E RUR, UMICRO #### [facility] [address] [place] [address] Dr. Loyd Coppola GLUCOSE - 1HRon 03-21-2023 Glucose [Mass/Vol] 165 mg/dL Critically high 74-106 T [facility] Comment on above: Performed By: #### G LU1HR #### [facility] [address] [place] [address] Dr. Loyd Coppola PAP ACOG PANEL 2: 30 to 65on 02-19-2023 . . Normal [facility] Comment on above: Result Comment: Perf ormed at: WB Performed By: #### E RUR, UMICRO #### [facility] [address] [address] [address] Loyd Coppola Age Gdln ACOG Testing 30-65 Normal [facility] Comment on above: Performed By: #### E RUR, UMICRO #### [facility] [address] [address] [address] Loyd Coppola DIAGNOSIS: Comment Normal [facility] Comment on above: Result Comment: NEGA TIVE FOR INTRAEPITHELIAL LESION OR MALIGNANCY. Performed at: WB Performed By: #### E RUR, UMICRO #### [facility] [address] [address] [address] Loyd Coppola HPV Aptima Negative Normal Negative [facility] Comment on above: Result Comment: This nucleic acid amplification test detects fourteen high-risk HPV types (16,18,31,33,35,39,45,51,52,56,58,59,66,68) without differentiation. Performed at: =G Performed By: #### E RUR, UMICRO #### [facility] [address] [address] [address] Loyd Coppola HPV Genotype Reflex Comment Normal [facility] Comment on above: Result Comment: Crit eria not met, HPV Genotype not performed. Performed at: WB Performed By: #### E RUR, UMICRO #### [facility] [address] [place] [address] Dr. Loyd Coppola Methodology: Comment Normal [facility] Comment on above: Result Comment: This liquid based ThinPrep(R) pap test was screened with the use of an image guided system. Performed at: WB Performed By: #### E RUR, UMICRO #### [facility] [address] [place] [address] Dr. Loyd Coppola Note: Comment Normal [facility] Comment on above: Result Comment: The Pap smear is a screening test designed to aid in the detection of premalignant and malignant conditions of the uterine cervix. It is not a diagnostic procedure and should not be used as the sole means of detecting cervical cancer. Both false-positive and false-negative reports do occur. . Performed at: WB Performed By: #### JESUS CHAVARRIA #### [facility] [address] [address] [address] Loyd Coppola Performed by: Comment Normal [facility] Comment on above: Result Comment: Lidya Kirkpatrick, Clerical Adviser (ASCP) Performed at: WB Performed By: #### JESUS CHAVARRIA #### [facility] [address] [address] [address] Loyd Coppola Specimen adequacy: Comment Normal [facility] Comment on above: Result Comment: Sati sfactory for evaluation. No endocervical component is identified. Performed at: WB Performed By: #### JESUS CHAVARRIA #### [facility] [address] [place] [address] Dr. Loyd Coppola US PREG CERVICAL LENGTHon [...] YOMAIRA GONZALEZ Date: 2023-02-18 15:51 Normal [facility] CHLAMYDIA/GONOCOCCUS ANTONELLA (SW AB/URINE/PAPon 02-15-2023 Chlamydia trachomatis, ANTONELLA Negative Normal Negative [facility] Comment on above: Performed By: #### C T/NGNA #### [facility] [address] [place] [address] Dr. Loyd Coppola Neisseria gonorrhoeae, ANTONELLA Negative Normal Negative [facility] Comment on above: Performed By: #### C T/NGNA #### [facility] [address] [place] [address] Dr. Loyd Coppola VAGINITIS/VAGINOSIS DNA PROB Vineet 02-15-2023 Leigha species Negative Normal Negative [facility] Comment on above: Performed By: #### C BC #### [facility] [address] [place] [address] Dr. Loyd Coppola Gardnerella vaginalis Negative Normal Negative [facility] Comment on above: Performed By: #### C BC #### [facility] [address] [place] [address] Dr. Loyd Coppola Trichomonas vaginalis Negative Normal Negative [facility] Comment on above: Performed By: #### C BC #### [facility] [address] [place] [address] Dr. Loyd Coppola HEP B SURFACE ANTIGEN SCREEN on 02-01-2023 HBsAg Screen Negative Normal Negative [facility] Comment on above: Performed By: #### H BSANS #### [facility] [address] [place] [address] Dr. Loyd Coppola HEPATITIS C VIRUS AB W/ REFL EX QUANTon 02-01-2023 HCV AB Non-Reactive Normal Non Reactive [facility] [place] Comment on above: Performed By: #### C BC #### [facility] [address] [place] [address] Dr. Loyd Coppola Interpretation: Comment Normal [facility] Comment on above: Result Comment: Not infected with HCV unless early or acute infection is suspected (which may be delayed in an immunocompromised individual), or other evidence exists to indicate HCV infection. Performed By: #### C BC #### [facility] [address] [place] [address] Dr. Loyd Coppola HIV 1 AND 2 WITH REFLEXon HIV Screen 4th Generation wRfx Non-Reactive Normal Non Reactive [facility] Comment on above: Result Comment: HIV Negative HIV-1/HIV-2 antibodies and HIV-1 p24 antigen were NOT detected. There is no laboratory evidence of HIV infection. Performed By: #### C BC #### [facility] [address] [place] [address] Dr. Loyd Coppola RPR QUANTon 02-01-2023 Rapid Plasma Reagin, Quant Non-Reactive Normal NonRea<1:1 [facility] Comment on above: Result Comment: Plea se Note: This test does not meet current guidelines for screening and diagnosis of syphilis. This test is intended for following treatment response in patients being treated for syphilis infection. To screen for syphilis infection, a reflex cascade that includes both RPR and a treponema-specific assay should be utilized, such as Treponema pallidum (Syphilis) Screening [place] (334911) or Rapid Plasma Reagin (RPR) Test With Reflex to Quantitative RPR and Confirmatory Treponema pallidum Antibodies (231056). Performed By: #### JESUS CHAVARRIA #### [facility] [address] [place] [address] Dr. Loyd Coppola RUBELLA AB IGGon 02-01-2023 Rubella Antibodies, IgG 1.08 index Normal Immune >0.99 [facility] Comment on above: Result Comment: Non- immune <0.90 Equivocal 0.90 - 0.99 Immune >0.99 Performed By: #### C BC #### [facility] [address] [place] [address] Dr. Loyd Coppola BOX TEST SENT OUTon 02-01-20 23 SENT TO REF LAB 01/31/23 Normal [facility] Comment on above: Performed By: #### JESUS CHAVARRIA #### [facility] [address] [place] [address] Dr. Loyd Coppola CBC AUTO DIFFon 01-31-2023 BASO # 0.0 103/ul Normal 0.0-0.1 [facility] Comment on above: Performed By: #### C BC #### [facility] [address] [place] [address] Dr. Loyd Coppola Basophils/100 WBC (Bld) 0.2 % Normal 0.2-2.0 [facility] Comment on above: Performed By: #### C BC #### [facility] [address] [place] [address] Dr. Loyd Coppola EO # 0.1 103/ul Normal 0.0-0.7 [facility] Comment on above: Performed By: #### C BC #### [facility] [address] [place] [address] Dr. Loyd Coppola Eosinophils/100 WBC (Bld) 1.5 % Normal 0.9-7.0 [facility] Comment on above: Performed By: #### C BC #### [facility] [address] [place] [address] Dr. Loyd Coppola Erythrocyte distribution width (RBC) [Ratio] 12.3 % Normal 11.0-15.0 [facility] Comment on above: Performed By: #### C BC #### [facility] [address] [place] [address] Dr. Loyd Coppola Hematocrit (Bld) [Volume fraction] 39.3 % Normal 36.0-48.0 [facility] Comment on above: Performed By: #### C BC #### [facility] [address] [place] [address] Dr. Loyd Coppola Hemoglobin (Bld) [Mass/Vol] 14.3 g/dL Normal 12.0-16.0 [facility] Comment on above: Performed By: #### C BC #### [facility] [address] [place] [address] Dr. Loyd Coppola IG # 0.03 10e3/ul Normal 0.00-0.03 [facility] Comment on above: Performed By: #### C BC #### [facility] [address] [place] [address] Dr. Loyd Coppola IG % 0.3 % Normal 0.0-0.5 [facility] Comment on above: Performed By: #### C BC #### [facility] [address] [place] [address] Dr. Loyd Coppola LYMPH # 2.3 103/ul Normal 1.2-3.8 [facility] Comment on above: Performed By: #### C BC #### [facility] [address] [place] [address] Dr. Loyd Coppola Lymphocytes/100 WBC (Bld) 24.8 % Normal 20.5-60.0 [facility] Comment on above: Performed By: #### C BC #### [facility] [address] [place] [address] Dr. Loyd Coppola MANUAL DIFF REQ NO Normal [facility] Comment on above: Performed By: #### C BC #### [facility] [address] [address] [address] Loyd Coppola MCH (RBC) [Entitic mass] 32.6 pg Normal 26.7-34.0 [facility] Comment on above: Performed By: #### C BC #### [facility] [address] [address] [address] Loyd Coppola MCHC (RBC) [Mass/Vol] 36.4 g/dL Critically high 29.9-35.2 [facility] Comment on above: Performed By: #### C BC #### [facility] [address] [place] [address] Dr. Loyd Coppola MCV (RBC) [Entitic vol] 89.7 fL Normal 81.0-99.0 [facility] Comment on above: Performed By: #### C BC #### [facility] [address] [place] [address] Dr. Loyd Coppola MONO # 0.5 103/ul Normal 0.3-0.8 [facility] Comment on above: Performed By: #### C BC #### [facility] [address] [place] [address] Dr. Loyd Coppola Monocytes/100 WBC (Bld) 5.2 % Normal 1.7-12.0 [facility] Comment on above: Performed By: #### C BC #### [facility] [address] [place] [address] Dr. Loyd Coppola NEUT # 6.4 103/ul Normal 1.4-6.5 [facility] Comment on above: Performed By: #### C BC #### [facility] [address] [place] [address] Dr. Loyd Coppola Neutrophils/100 WBC (Bld) 68.0 % Normal 43.0-75.0 [facility] Comment on above: Performed By: #### C BC #### [facility] [address] [place] [address] Dr. Loyd Coppola Platelet mean volume (Bld) [Entitic vol] 10.5 fL Normal 9.5-13.5 [facility] Comment on above: Performed By: #### C BC #### [facility] [address] [address] [address] Loyd Coppola PLT 171 103/ul Normal 150-450 [facility] Comment on above: Performed By: #### C BC #### [facility] [address] [place], [place] [address] Dr. Loyd Coppola RBC 4.38 106/ul Normal 4.20-5.40 [facility] Comment on above: Performed By: #### C BC #### [facility] [address] [address] [address] Loyd Coppola WBC 9.4 103/ul Normal 4.0-11.0 [facility] Comment on above: Performed By: #### C BC #### [facility] [address] [place] [address] Dr. Loyd Coppola CULTURE URINEon 01-31-2023 CULTURE URINE Culture Observations : LIGHT GROWTH OF MIXED GENITAL CASSIDY. NO POTENTIAL PATHOGENS SEEN. Normal [facility] Comment on above: Performed By: #### C BC #### [facility] [address] [place] [address] Dr. Loyd Coppola CULTURE URINE Isolate 1 [...] F Trimethoprim/Sulfameth oxazole <=20 S F Normal [facility] Comment on above: Performed By: #### C BC #### [facility] [address] [place] [address] Dr. Loyd Coppola GLYCOHEMOGLOBIN A1Con 2022 ADA RECOMMENDATION SEE BELOW Normal [facility] Comment on above: Result Comment: ADA RECOMMENDED LIMIT 4.0 - 6.0 ADA THERAPEUTIC TARGET < 7.0 ACTION SUGGESTED > 7.0 Performed By: #### A 1C #### [facility] [address] [place] [address] Dr. Loyd Coppola Glucose [Mass/Vol] 100 mg/dL Normal [facility] Comment on above: Performed By: #### A 1C #### [facility] [address] [place] [address] Dr. Loyd Coppola HbA1c (Bld) [Mass fraction] 5.1 % Normal 4.5-6.2 [facility] Comment on above: Performed By: #### A 1C #### [facility] [address] [place] [address] Dr. Loyd Coppola TSHon 01-31-2023 TSH 0.495 uIU/mL Normal 0.358-3.740 [facility] Comment on above: Performed By: #### JESUS CHAVARRIA #### [facility] [address] [place] [address] Dr. Loyd Coppola TYPE AND SCREENon 01-31-2023 TYPE AND SCREEN Negative Normal [facility] Comment on above: Performed By: #### C BC #### [facility] [address] [place] [address] Dr. Loyd Coppola CBC AUTO DIFFon 01-28-2023 BASO # 0.0 103/ul Normal 0.0-0.1 [facility] Comment on above: Performed By: #### C BC #### [facility] [address] [place] [address] Dr. Loyd Coppola Basophils/100 WBC (Bld) 0.2 % Normal 0.2-2.0 [facility] Comment on above: Performed By: #### C BC #### [facility] [address] [place] [address] Dr. Loyd Coppola EO # 0.1 103/ul Normal 0.0-0.7 [facility] Comment on above: Performed By: #### C BC #### [facility] [address] [place] [address] Dr. Loyd Coppola Eosinophils/100 WBC (Bld) 0.8 % Critically low 0.9-7.0 [facility] Comment on above: Performed By: #### C BC #### [facility] [address] [place] [address] Dr. Loyd Coppola Erythrocyte distribution width (RBC) [Ratio] 12.3 % Normal 11.0-15.0 [facility] Comment on above: Performed By: #### C BC #### [facility] [address] [place] [address] Dr. Loyd Coppola Hematocrit (Bld) [Volume fraction] 45.0 % Normal 36.0-48.0 [facility] Comment on above: Performed By: #### C BC #### [facility] [address] [place] [address] Dr. Loyd Coppola Hemoglobin (Bld) [Mass/Vol] 16.3 g/dL Critically high 12.0-16.0 [facility] Comment on above: Performed By: #### C BC #### [facility] [address] [place] [address] Dr. Loyd oCppola IG # 0.03 10e3/ul Normal 0.00-0.03 [facility] Comment on above: Performed By: #### C BC #### [facility] [address] [place] [address] Dr. Loyd Coppola IG % 0.4 % Normal 0.0-0.5 [facility] Comment on above: Performed By: #### C BC #### [facility] [address] [place] [address] Dr. Loyd Coppola LYMPH # 1.4 103/ul Normal 1.2-3.8 [facility] Comment on above: Performed By: #### C BC #### [facility] [address] [place] [address] Dr. Loyd Coppola Lymphocytes/100 WBC (Bld) 16.8 % Critically low 20.5-60.0 [facility] Comment on above: Performed By: #### C BC #### [facility] [address] [place] [address] Dr. Loyd Coppola MANUAL DIFF REQ NO Normal [facility] Comment on above: Performed By: #### C BC #### [facility] [address] [place] [address] Dr. Loyd Coppola MCH (RBC) [Entitic mass] 32.1 pg Normal 26.7-34.0 [facility] Comment on above: Performed By: #### C BC #### [facility] [address] [place] [address] Dr. Loyd Coppola MCHC (RBC) [Mass/Vol] 36.2 g/dL Critically high 29.9-35.2 [facility] Comment on above: Performed By: #### C BC #### [facility] [address] [place] [address] Dr. Loyd Coppola MCV (RBC) [Entitic vol] 88.8 fL Normal 81.0-99.0 [facility] Comment on above: Performed By: #### C BC #### [facility] [address] [place] [address] Dr. Loyd Coppola MONO # 0.9 103/ul Critically high 0.3-0.8 [facility] Comment on above: Performed By: #### C BC #### [facility] [address] [place] [address] Dr. Loyd Coppola Monocytes/100 WBC (Bld) 10.5 % Normal 1.7-12.0 [facility] Comment on above: Performed By: #### C BC #### [facility] [address] [place] [address] Dr. Loyd Coppola NEUT # 6.0 103/ul Normal 1.4-6.5 [facility] Comment on above: Performed By: #### C BC #### [facility] [address] [place] [address] Dr. Loyd Coppola Neutrophils/100 WBC (Bld) 71.3 % Normal 43.0-75.0 [facility] Comment on above: Performed By: #### C BC #### [facility] [address] [place] [address] Dr. Loyd Coppola Platelet mean volume (Bld) [Entitic vol] 10.7 fL Normal 9.5-13.5 [facility] Comment on above: Performed By: #### C BC #### [facility] [address] [place] [address] Dr. Loyd Coppola PLT 174 103/ul Normal 150-450 [facility] Comment on above: Performed By: #### C BC #### [facility] [address] [place] [address] Dr. Loyd Coppola RBC 5.07 106/ul Normal 4.20-5.40 [facility] Comment on above: Performed By: #### C BC #### [facility] [address] [place] [address] Dr. Loyd Coppola WBC 8.4 103/ul Normal 4.0-11.0 [facility] Comment on above: Performed By: #### C BC #### [facility] [address] [place] [address] Dr. Loyd Coppola ER URINE PROFILEon 3 Bilirubin Ql (U) SMALL Abnormal NEGATIVE [facility] Comment on above: Performed By: #### Suzi ZAVALETA ICRO #### [facility] [address] [place] [address] Dr. Loyd Coppola Clarity (U) CLEAR Normal CLEAR [facility] Comment on above: Performed By: #### Suzi ZAVALETA UMICRO #### [facility] [address] [place] [address] Dr. Loyd Coppola Color (U) YELLOW Normal YELLOW [facility] Comment on above: Performed By: #### Suzi ZAVALETA UMICRO #### [facility] [address] [place] [address] Dr. Loyd Coppola ERUAHD A micrscopic examination will be performed if indicated. Normal [facility] Comment on above: Performed By: #### Suzi ZAVALETA UMICRO #### [facility] [address] [place] [address] Dr. Loyd Coppola Glucose Ql (U) Negative Normal NEGATIVE [facility] Comment on above: Performed By: #### JUSTIN CHAVARRIARO #### [facility] [address] [place] [address] Dr. Loyd Coppola Hemoglobin Ql (U) TRACE-INTACT Abnormal NEGATIVE [facility] Comment on above: Performed By: #### Suzi ZAVALETA UMICRO #### [facility] [address] [place] [address] Dr. Loyd Coppola Ketones Ql (U) 80 mg/dl Abnormal NEGATIVE [facility] Comment on above: Performed By: #### Suzi ZAVALETA UMICRO #### [facility] [address] [place] [address] Dr. Loyd Coppola LEUKOCYTES Negative Normal NEGATIVE [facility] Comment on above: Performed By: #### MORGAN CHAVARRIAICRO #### [facility] [address] [place] [address] Dr. Loyd Coppola Nitrite Ql (U) Negative Normal NEGATIVE [facility] Comment on above: Performed By: #### JUSTIN CHAVARRIARO #### [facility] [address] [place] [address] Dr. Loyd Coppola pH (U) 6.5 [pH] Normal 5-9 [facility] Comment on above: Performed By: #### JUSTIN CHAVARRIARO #### [facility] [address] [place] [address] Dr. Loyd Coppola Protein (U) [Mass/Vol] 100 mg/dL Abnormal NEGATIVE/ TRACE [facility] Comment on above: Performed By: #### JUSTIN CHAVARRIARO #### [facility] [address] [place] [address] Dr. Loyd Coppola SPEC GRAVITY 1.030 Abnormal 1.005-<=1.025 [facility] Comment on above: Performed By: #### JUSTIN CHAVARRIARO #### [facility] [address] [place] [address] Dr. Loyd Coppola UR MICRO IND INDICATED Normal [facility] Comment on above: Performed By: #### JUSTIN CHAVARRIARO #### [facility] [address] [place] [address] Dr. Loyd Coppola Urobilinogen Qn (U) 0.2 {Taylor'U}/dL Normal 0.2 - 1. 0 [facility] Comment on above: Performed By: #### E JESUS ZAVALETA #### [facility] [address] [place] [address] Dr. Loyd Coppola PROF 14(COMP METB)on 023 Albumin [Mass/Vol] 3.5 g/dL Normal 3.4-5.0 [facility] Comment on above: Performed By: #### C BC #### [facility] [address] [place] [address] Dr. Loyd Coppola Albumin/Globulin [Mass ratio] 0.9 {ratio} Normal [facility] Comment on above: Performed By: #### C BC #### [facility] [address] [place] [address] Dr. Loyd Coppola ALP [Catalytic activity/Vol] 61 U/L Normal 46-116 [facility] Comment on above: Performed By: #### C BC #### [facility] [address] [place] [address] Dr. Loyd Coppola ALT [Catalytic activity/Vol] 29 U/L Normal 14-59 [facility] Comment on above: Performed By: #### C BC #### [facility] [address] [place] [address] Dr. Loyd Coppola Anion gap [Moles/Vol] 12.0 mmol/L Normal [facility] Comment on above: Performed By: #### C BC #### [facility] [address] [place] [address] Dr. Loyd Coppola AST [Catalytic activity/Vol] 24 U/L Normal 15-37 [facility] Comment on above: Performed By: #### C BC #### [facility] [address] [place] [address] Dr. Loyd Coppola Bilirubin [Mass/Vol] 0.4 mg/dL Normal 0.2-1.0 [facility] Comment on above: Performed By: #### C BC #### [facility] [address] [address] [address] Loyd Coppola Calcium [Mass/Vol] 8.6 mg/dL Normal 8.5-10.1 [facility] Comment on above: Performed By: #### C BC #### [facility] [address] [place] [address] Dr. Loyd Coppola Chloride [Moles/Vol] 99 mmol/L Normal 98-107 [facility] Comment on above: Performed By: #### C BC #### [facility] [address] [address] [address] Loyd Coppola CO2 [Moles/Vol] 24.9 mmol/L Normal 21.0-32.0 [facility] Comment on above: Performed By: #### C BC #### [facility] [address] [place] [address] Dr. Loyd Coppola Creatinine [Mass/Vol] 0.55 mg/dL Normal 0.55-1.02 [facility] Comment on above: Performed By: #### C BC #### [facility] [address] [place] [address] Dr. Loyd Coppola EGFR-AF CONGOLESE >60 Normal >=60 [facility] Comment on above: Performed By: #### C BC #### [facility] [address] [place] [address] Dr. Loyd Coppola EGFR-NON AF CONGOLESE >60 Normal >=60 [facility] Comment on above: Performed By: #### C BC #### [facility] [address] [address] [address] Loyd Coppola Globulin (S) [Mass/Vol] 3.8 g/dL Normal [facility] Comment on above: Performed By: #### C BC #### [facility] [address] [place] [address] Dr. Loyd Coppola Glucose [Mass/Vol] 106 mg/dL Normal 74-106 [facility] Comment on above: Performed By: #### C BC #### [facility] [address] [place] [address] Dr. Loyd Coppola Potassium [Moles/Vol] 2.9 mmol/L Critically low 3.5-5.1 [facility] Comment on above: Performed By: #### C BC #### [facility] [address] [place] [address] Dr. Loyd Coppola Protein [Mass/Vol] 7.3 g/dL Normal 6.4-8.2 [facility] Comment on above: Performed By: #### C BC #### [facility] [address] [place] [address] Dr. Loyd Coppola Sodium [Moles/Vol] 135 mmol/L Critically low 136-145 [facility] Comment on above: Performed By: #### C BC #### [facility] [address] [place] [address] Dr. Loyd Coppola Urea nitrogen [Mass/Vol] 12.0 mg/dL Normal 7.0-18.0 [facility] Comment on above: Performed By: #### C BC #### [facility] [address] [place] [address] Dr. Loyd Coppola Urea nitrogen/Creatinine [Mass ratio] 21.8 mg/mg Normal [facility] Comment on above: Performed By: #### C BC #### [facility] [address] [place] [address] Dr. Loyd Coppola URINE MICROSCOPIC ONLYon BACTERIA MODERATE Abnormal NONE SEEN [facility] Comment on above: Performed By: #### Suzi ZAVALETA UMICRO #### [facility] [address] [place] [address] Dr. Loyd Coppola Bacteria identified Cx Nom (U) INDICATED Normal [facility] Comment on above: Performed By: #### E MEGHANN UMICRO #### [facility] [address] [place] [address] Dr. Loyd Coppola CAST NONE SEEN Normal NONE SEEN [facility] Comment on above: Performed By: #### E MEGHANN UMICRO #### [facility] [address] [place] [address] Dr. Loyd Coppola Crystals LM Nom (Urine sed) NONE SEEN Normal NONE SEEN [facility] Comment on above: Performed By: #### E RUR, UMICRO #### [facility] [address] [address] [address] Loyd Coppola Epithelial cells LM Ql (Urine sed) MANY Abnormal NONE SEEN /RARE [facility] Comment on above: Performed By: #### E SUHAR, UMICRO #### [facility] [address] [address] [address] Loyd Coppola MUCOUS SMALL Abnormal NONE SEEN [facility] Comment on above: Performed By: #### E MEGHANN UMICRO #### [facility] [address] [address] [address] Loyd Coppola RBC 0-2 Normal 0-2 [facility] Comment on above: Performed By: #### E MEGHANN UMICRO #### [facility] [address] [place] [address] Dr. Loyd Coppola WBC 2-5 Abnormal NONE SEEN [facility] Comment on above: Performed By: #### Suzi ZAVALETA UMICRO #### [facility] [address] [place] [address] Dr. Loyd Coppola US PREG TVon 01-23-2023 [...] by: YOMAIRA GONZALEZ Date: 2023-01-23 15:42 Normal [facility] PAP ACOG PANEL 2: 21 to 29on 09-19-2022 . . Normal [facility] Comment on above: Performed By: #### [id number] #### [facility] [address] [place] [address] Dr. Loyd Coppola Age Gdln ACOG Testing 21-29 Normal [facility] Comment on above: Performed By: #### [id number] #### [facility] [address] [place] [address] Dr. Loyd Coppola DIAGNOSIS: Comment Normal [facility] Comment on above: Result Comment: NEGA TIVE FOR INTRAEPITHELIAL LESION OR MALIGNANCY. Performed By: #### [id number] #### [facility] [address] [place] [address] Dr. Loyd Coppola Methodology: Comment Normal [facility] Comment on above: Result Comment: This liquid based ThinPrep(R) pap test was screened with the use of an image guided system. Performed By: #### [id number] #### [facility] [address] [place] [address] Dr. Loyd Coppola Note: Comment Normal [facility] Comment on above: Result Comment: The Pap smear is a screening test designed to aid in the detection of premalignant and malignant conditions of the uterine cervix. It is not a diagnostic procedure and should not be used as the sole means of detecting cervical cancer. Both false-positive and false-negative reports do occur. . Performed By: #### [id number] #### [facility] [address] [place] [address] Dr. Loyd Coppola Performed by: Comment Normal [facility] Comment on above: Result Comment: Celestina Velasco, Clerical Adviser (ASCP) Performed By: #### [id number] #### [facility] [address] [place] [address] Dr. Loyd Coppola Reflex Criteria: Comment Normal [facility] Comment on above: Result Comment: The HPV DNA reflex criteria were not met with this specimen result therefore, no HPV testing was performed. . Performed By: #### [id number] #### [facility] [address] [place] [address] Dr. Loyd Coppola Specimen adequacy: Comment Normal [facility] Comment on above: Result Comment: Sati sfactory for evaluation. Endocervical and/or squamous metaplastic cells (endocervical component) are present. Performed By: #### [id number] #### [facility] [address] [address] [address] Loyd Coppola Vital Signs Date Time Vital Sign Value Performing Clinician Facility 05-31-2025 11:04-0400 Body mass index (BMI) [Ratio] 49.49 kg/m2 Kristan Polina PA Work Phone: [facility] 05-31-2025 11:04-0400 Body weight 143.34 kg Kristan Bolivar PA Work Phone: [facility] 05-31-2025 11:04-0400 Diastolic blood pressure 84 mm[Hg] Kristan Bolivar PA Work Phone: [facility] 05-31-2025 11:04-0400 Systolic blood pressure 130 mm[Hg] Kristan Polina PA Work Phone: [facility] 05-24-2025 08:59-0400 Body mass index (BMI) [Ratio] 48.12 kg/m2 Kristan Bolivar PA Work Phone: [facility] 05-24-2025 08:59-0400 Body weight 139.37 kg Kristan Bolivar PA Work Phone: [facility] 05-24-2025 08:59-0400 Diastolic blood pressure 82 mm[Hg] Kristan Polina PA Work Phone: [facility] 05-24-2025 08:59-0400 Systolic blood pressure 130 mm[Hg] Kristan Polina PA Work Phone: [facility] 05-17-2025 11:58-0400 Body mass index (BMI) [Ratio] 47.58 kg/m2 Nolan Sebastian DO Work Phone: [facility] 05-17-2025 11:58-0400 Body weight 137.8 kg Nolan Sebastian DO Work Phone: [facility] 05-17-2025 11:58-0400 Diastolic blood pressure 78 mm[Hg] Nolan Sebastian DO Work Phone: [facility] 05-17-2025 11:58-0400 Systolic blood pressure 126 mm[Hg] Nolan Sebastian DO Work Phone: [facility] 05-02-2025 10:56-0400 Body mass index (BMI) [Ratio] 47.16 kg/m2 Kristan Hall PA Work Phone: [facility] 05-02-2025 10:56-0400 Body weight 136.59 kg Kristan Hall PA Work Phone: [facility] 05-02-2025 10:56-0400 Diastolic blood pressure 82 mm[Hg] Kristan Hall PA Work Phone: [facility] 05-02-2025 10:56-0400 Systolic blood pressure 130 mm[Hg] Kristan Hall PA Work Phone: [facility] 04-18-2025 13:11-0400 Body mass index (BMI) [Ratio] 46.27 kg/m2 Nolan Sebastian DO Work Phone: [facility] 04-18-2025 13:11-0400 Body weight 133.99 kg Nolan Sebastian DO Work Phone: [facility] 04-18-2025 13:11-0400 Diastolic blood pressure 74 mm[Hg] Nolan Sebastian DO Work Phone: [facility] 04-18-2025 13:11-0400 Systolic blood pressure 120 mm[Hg] Nolan Sebastian DO Work Phone: [facility] 04-05-2025 14:05-0400 Body mass index (BMI) [Ratio] 46.52 kg/m2 Nolan Sebastian DO Work Phone: [facility] 04-05-2025 14:05-0400 Body weight 134.72 kg Nolan Sebastian DO Work Phone: [facility] 04-05-2025 14:05-0400 Diastolic blood pressure 72 mm[Hg] Nolan Sebastian DO Work Phone: [facility] 04-05-2025 14:05-0400 Systolic blood pressure 110 mm[Hg] Nolan Sebastian DO Work Phone: [facility] 03-14-2025 14:00-0400 Body mass index (BMI) [Ratio] 46.05 kg/m2 Nolan Sebastian DO Work Phone: [facility] 03-14-2025 14:00-0400 Body weight 133.36 kg Nolan Sebastian DO Work Phone: [facility] 03-14-2025 14:00-0400 Diastolic blood pressure 72 mm[Hg] Nolan Sebastian DO Work Phone: [facility] 03-14-2025 14:00-0400 Systolic blood pressure 118 mm[Hg] Nolan Sebastian DO Work Phone: [facility] 03-08-2025 13:08-0400 Body mass index (BMI) [Ratio] 45.7 kg/m2 Kenya Lavoy PA-C Work Phone: [facility] 03-08-2025 13:08-0400 Body weight 132.36 kg Kenya Lavoy PA-C Work Phone: [facility] 03-08-2025 13:08-0400 Diastolic blood pressure 66 mm[Hg] Kenya Lavoy PA-C Work Phone: [facility] 03-08-2025 13:08-0400 Heart rate 95 /min Kenya Lavoy PA-C Work Phone: [facility] 03-08-2025 13:08-0400 Systolic blood pressure 125 mm[Hg] Kenya Lavoy PA-C Work Phone: [facility] 02-21-2025 13:59-0400 Body mass index (BMI) [Ratio] 45.42 kg/m2 Nolan Sebastian DO Work Phone: [facility] 02-21-2025 13:59-0400 Body weight 131.54 kg Nolan Sebastian DO Work Phone: [facility] 02-21-2025 13:59-0400 Diastolic blood pressure 84 mm[Hg] Nolan Sebastian DO Work Phone: [facility] 02-21-2025 13:59-0400 Systolic blood pressure 122 mm[Hg] Nolan Sebastian DO Work Phone: [facility] 02-16-2025 13:18-0400 Body mass index (BMI) [Ratio] 44.79 kg/m2 Violet Lopez RN Work Phone: [facility] 02-16-2025 13:18-0400 Body weight 129.73 kg Violet Lopez RN Work Phone: [facility] 12-28-2024 13:59-0500 Body mass index (BMI) [Ratio] 44.14 kg/m2 Nolan Sebastian DO Work Phone: [facility] 12-28-2024 13:59-0500 Body weight 127.82 kg Nolan Sebastian DO Work Phone: [facility] 12-28-2024 13:59-0500 Diastolic blood pressure 84 mm[Hg] Nolan Sebastian DO Work Phone: [facility] 12-28-2024 13:59-0500 Systolic blood pressure 126 mm[Hg] Nolan Sebastian DO Work Phone: [facility] 11-26-2024 09:44-0500 Body mass index (BMI) [Ratio] 43.95 kg/m2 [facility] Nurse [facility] 11-26-2024 09:44-0500 Body weight 127.28 kg [facility] Nurse [facility] 03-23-2023 03:40-0400 Body weight 122.[address] JULIANNE LAMBERT . [facility] Comment on above: Performed By: #### JESUS SANDOVAL #### [facility] [address] [place] [address] Dr. Loyd Coppola Encounters Encounter Date Encounter Type Care Provider Facility Start: 05-31-2025 End: 05-31-2025 Bamboo flowsheet Kristan RUBIO Work Phone: [facility] Start: 05-31-2025 End: 05-31-2025 Bamboo flowsheet Kristan RUBIO Work Phone: [facility] Start: 05-31-2025 End: 05-31-2025 flow sheet Kristan RUBIO Work Phone: [facility] Comment on above: Third trimester preg minh ([facility]); 36 weeks gestation of ([facility]) Start: 05-30-2025 End: 05-30-2025 Clinisync Result Encounter Nolan Sebastian DO Work Phone: [facility]olic[facility] Start: 05-30-2025 End: 05-30-2025 Clinisync Result Encounter Nolan Sebastian DO Work Phone: [facility] Start: 05-26-2025 End: 05-26-2025 Clinisync Result Encounter Nolan Sebastian DO Work Phone: [facility] Start: 05-26-2025 End: 05-26-2025 Clinisync Result Encounter Nolan Sebastian DO Work Phone: [facility] Start: 05-25-2025 End: 05-25-2025 Clinisync Result Encounter Nolan Sebastian DO Work Phone: [facility] Start: 05-25-2025 End: 05-25-2025 Clinisync Result Encounter Nolan Sebastian DO Work Phone: [facility] Start: 05-24-2025 End: 05-24-2025 Clinisync Result Encounter Nolan Sebastian DO Work Phone: [facility] Start: 05-24-2025 End: 05-24-2025 Clinisync Result Encounter Nolan Seabstian DO Work Phone: [facility] Start: 05-24-2025 End: 05-24-2025 Telephone encounter Rufina Hurd DEMO EVENT SPECIALIST Maternal- Medic ine at [facility] Start: 05-24-2025 End: 05-24-2025 ambulatory KRISTAN HALL Not Available Start: 05-24-2025 End: 05-24-2025 flow sheet Kristan RUBIO Work Phone: [facility] Comment on above: Third trimester preg minh ([facility]); 35 weeks gestation of ([facility]); induced hypertension, antepartum ([facility]) Start: 05-17-2025 End: 05-17-2025 Bamboo flowsheet Nolan Sebastian DO Work Phone: [facility] Start: 05-17-2025 End: 05-17-2025 Bamboo flowsheet Nolan Sebastian DO Work Phone: [facility] Start: 05-17-2025 End: 05-17-2025 flow sheet Nolan Sebastian DO Work Phone: [facility] Comment on above: Third trimester preg minh ([facility]); 34 weeks gestation of ([facility]); Gestational diabetes mellitus (GDM), antepartum, gestational diabetes method of control unspecified ([facility]) Start: 05-17-2025 End: 05-17-2025 ambulatory NOLAN SEBASTIAN Not Available Start: 05-16-2025 End: 05-16-2025 Clinisync Result Encounter Nolan Sebastian DO Work Phone: [facility] Start: 05-16-2025 End: 05-16-2025 Clinisync Result Encounter Nolan Sebastian DO Work Phone: [facility]olic[facility] Start: 05-09-2025 End: 05-09-2025 Clinisync Result Encounter Nolan Sebastian DO Work Phone: [facility] Start: 05-09-2025 End: 05-09-2025 Clinisync Result Encounter Nolan Sebastian DO Work Phone: [facility]olic[facility] Start: 05-02-2025 End: 05-02-2025 Bamboo flowsheet Kristan RUBIO Work Phone: [facility] Start: 05-02-2025 End: 05-02-2025 Bamboo flowsheet Kristan RUBIO Work Phone: [facility] Start: 05-02-2025 End: 05-02-2025 Clinisync Result Encounter Nolan Sebastian DO Work Phone: [facility]solic[facility] Start: 05-02-2025 End: 05-02-2025 flow sheet Kristan RUBIO Work Phone: [facility] Comment on above: 32 weeks gestation o f ([facility]); Third trimester ([facility]) Start: 05-02-2025 End: 05-02-2025 ambulatory KRISTAN HALL Not Available Start: 04-29-2025 End: 04-29-2025 Telephone encounter Rufina Hurd DEMO EVENT SPECIALIST Maternal- Medic ine at [facility] Start: 04-25-2025 End: 04-25-2025 Clinisync Result Encounter Nolan Sebastian DO Work Phone: [facility]solic[facility] Start: 04-25-2025 End: 04-25-2025 Clinisync Result Encounter Nolan Sebastian DO Work Phone: [facility]solic[facility] Start: 04-19-2025 End: 04-19-2025 Telephone encounter Rufina Hurd DEMO EVENT SPECIALIST Maternal- Medic ine at [facility] Start: 04-19-2025 End: 04-19-2025 Office outpatient visit 25 minutes Kenya Acosta PA-C Work Phone: Maternal- Medicine at [facility] Comment on above: Gestational diabetes mellitus (GDM) in second trimester controlled on oral hypoglycemic drug (Primary Dx) Start: 04-19-2025 End: 04-19-2025 ambulatory KENYA ACOSTA [facility] Start: 04-18-2025 End: 04-18-2025 Bamboo flowsheet Nolan Sebastian DO Work Phone: [facility] Start: 04-18-2025 End: 04-18-2025 Bamboo flowsheet Nolan Sebastian DO Work Phone: [facility] Start: 04-18-2025 End: 04-18-2025 Clinisync Result Encounter Nolan Sebastian DO Work Phone: [facility] Unsolicited Start: 04-18-2025 End: 04-18-2025 ambulatory NOLAN SEBASTIAN Not Available Start: 04-18-2025 End: 04-18-2025 flow sheet Nolan Sebastian DO Work Phone: [facility] Comment on above: 30 weeks gestation o f ; Third trimester Start: 04-11-2025 End: 04-11-2025 Clinisync Result Encounter Nolan Sebastian DO Work Phone: [facility]solic[facility] Start: 04-11-2025 End: 04-11-2025 Clinisync Result Encounter Nolan Sebastian DO Work Phone: [facility]olic[facility] Start: 04-05-2025 End: 04-05-2025 Bamboo flowsheet Nolan Sebastian DO Work Phone: [facility] Start: 04-05-2025 End: 04-05-2025 Bamboo flowsheet Nolan Sebastian DO Work Phone: [facility] Start: 04-05-2025 End: 04-05-2025 flow sheet Nolan Sebastian DO Work Phone: [facility] Comment on above: Third trimester preg minh; 28 weeks gestation of ; Gestational diabetes mellitus (GDM), antepartum, gestational diabetes method of control unspecified; H/O: hypertension Start: 04-05-2025 End: 04-05-2025 ambulatory NOLAN SEBASTIAN Not Available Start: 03-23-2025 End: 03-23-2025 Telephone encounter Rufina Hurd DEMO EVENT SPECIALIST Maternal- Medic ine at [facility] Start: 03-23-2025 End: 03-23-2025 Office outpatient visit 25 minutes Kareem Cummings APRN-SUPERVISOR [employer] Work Phone: Maternal- Medicine at [facility] Comment on above: Gestational diabetes mellitus (GDM) in second trimester controlled on oral hypoglycemic drug Start: 03-23-2025 End: 03-23-2025 ambulatory KAREEM CUMMINGS [facility] Start: 03-16-2025 End: 03-16-2025 Telephone encounter Violet Lopez RN Work Phone: Maternal- Medicine at [facility] Start: 03-14-2025 End: 03-14-2025 Bamboo flowsheet Nolan Sebastian DO Work Phone: [facility] Start: 03-14-2025 End: 03-14-2025 Bamboo flowsheet Nolan Sebastian DO Work Phone: [facility] Start: 03-14-2025 End: 03-14-2025 ambulatory NOLAN SEBASTIAN Not Available Start: 03-14-2025 End: 03-14-2025 flow sheet Nolan Sebastian DO Work Phone: [facility] Comment on above: Second trimester pre gnancy; 25 weeks gestation of Start: 03-08-2025 End: 03-08-2025 Telephone encounter Rufina Hurd CMA Maternal- Medic ine at [facility] Start: 03-08-2025 End: 03-08-2025 Office outpatient new 45 minutes Kenya Acosta PA-C Work Phone: Maternal- Medicine at [facility] Comment on above: Gestational diabetes mellitus (GDM) in second trimester controlled on oral hypoglycemic drug (Primary Dx) Start: 03-08-2025 End: 03-08-2025 ambulatory KENYA ACOSTA [facility] Start: 03-07-2025 End: 03-07-2025 Clinisync Result Encounter Nolan Sebastian DO Work Phone: [facility]olic[facility] Start: 03-07-2025 End: 03-07-2025 Clinisync Result Encounter Nolan Sebastian DO Work Phone: [facility]olic[facility] Start: 03-04-2025 End: 03-04-2025 Telephone encounter Shima Renee RN Maternal- Medic ine at [facility] Start: 03-02-2025 End: 03-02-2025 Telephone encounter Shima Renee RN Maternal- Medic ine at [facility] Start: 02-24-2025 End: 02-24-2025 Telephone encounter Jewels BARRY Work Phone: Maternal- Medicine at [facility] Start: 02-21-2025 End: 02-21-2025 Bamboo flowsheet Nolan Sebastian DO Work Phone: [facility] Start: 02-21-2025 End: 02-21-2025 Bamboo flowsheet Nolan Sebastian DO Work Phone: [facility] Start: 02-21-2025 End: 02-21-2025 ambulatory NOLAN SEBASTIAN Not Available Start: 02-21-2025 End: 02-21-2025 flow sheet Nolan Sebastian DO Work Phone: [facility] Comment on above: Second trimester pre gnancy; 22 weeks gestation of Start: 02-16-2025 End: 02-16-2025 ambulatory [facility] Start: 02-16-2025 End: 02-16-2025 Diabetic care education Violet Lopez RN Work Phone: Maternal- Medicine at [facility] Comment on above: Diet controlled gest ational diabetes mellitus (GDM) in second trimester (Primary Dx); Encounter for diabetes education Start: 02-14-2025 End: 02-14-2025 ambulatory NOLAN SEBASTIAN Not Available Start: 02-07-2025 End: 02-07-2025 Chart abstracting Kareem YAP Work Phone: Maternal- Medicine at [facility] Start: 02-07-2025 End: 02-09-2025 Clinisync Result Encounter Nolan Sebastian DO Work Phone: [facility]olic[facility] Start: 02-07-2025 End: 02-09-2025 Clinisync Result Encounter Nolan Sebastian DO Work Phone: [facility] Unsolic[facility] Start: 01-24-2025 End: 01-24-2025 ambulatory NOLAN SEBASTIAN Not Available Start: 01-08-2025 End: 01-08-2025 Clinisync Result Encounter Nolan Sebastian DO Work Phone: [facility] Unsolic[facility] Start: 01-08-2025 End: 01-08-2025 Clinisync Result Encounter Nolan Sebastian DO Work Phone: [facility] Unsolicited Start: 12-28-2024 End: 12-28-2024 Bamboo flowsheet Nolan Sebastian DO Work Phone: [facility] Start: 12-28-2024 End: 12-28-2024 Bamboo flowsheet Nolan Sebastian DO Work Phone: [facility] Start: 12-28-2024 End: 12-28-2024 flow sheet Nolan Sebastian DO Work Phone: [facility] Comment on above: Second trimester pre gnancy; 14 weeks gestation of ; Diabetes mellitus screening Start: 12-28-2024 End: 12-28-2024 ambulatory NOLAN SEBASTIAN Not Available Start: 11-27-2024 End: 11-27-2024 Clinisync Result Encounter Nolan Sebastian DO Work Phone: [facility] Unsolicited Start: 11-27-2024 End: 11-27-2024 Clinisync Result Encounter Nolan Sebastian DO Work Phone: [facility] Unsolicited Start: 11-26-2024 End: 11-26-2024 ambulatory NOLAN SEBASTIAN Not Available Start: 11-26-2024 End: 11-26-2024 Office outpatient visit 5 minutes [facility] Sebastian Nurse [facility] Comment on above: GA: 10w0d Start: 04-09-[address] NOLAN CORTES . Facili ty:[facility] Start: 03-29-2023 End: 03-30-2023 ambulatory KRISTAN HALL . Facility:[facility] Start: 03-21-2023 End: 03-22-[address] NOLAN CORTES . Facility:[facility] Start: 02-18-2023 End: 02-19-[address] NOLAN CORTES . Facility:[facility] Start: 02-13-2023 End: 02-13-[address] NOLAN CORTES . Facility:[facility] Start: 01-31-2023 End: 02-01-[address] NOLAN CORTES . Facility:[facility] Start: 01-28-2023 End: 01-28-[address] DOCTOR BANUELOS Facility:[facility] Start: 01-23-2023 End: 01-24-[address] NOLAN CORTES . Facility:[facility] Start: 09-11-2022 End: 09-11-[address] JULIANNE LAMBERT . Facility: Procedures Date Procedure Procedure Detail Performing Clinician Start: 05-31-2025 Urnls dip stick/tabl et rgnt non-auto w/o micrscp Kristan RUBIO Work Phone: Start: 05-30-2025 US OB BPP W NON-STRESS Nolan Sebastian DO Work Phone: Start: 05-26-2025 US OB BPP W NON-STRESS Nolan Sebastian DO Work Phone: Start: 05-25-2025 US OB GROWTH Nolan Fazi o DO Work Phone: Start: 05-24-2025 Urnls dip stick/tabl et rgnt non-auto w/o micrscp Kristan RUBIO Work Phone: Start: 05-24-2025 US OB BPP W NON-STRESS Nolan Sebastian DO Work Phone: Start: 05-16-2025 US OB BPP W NON-STRESS Nolan Sebastian DO Work Phone: Start: 05-09-2025 US OB BPP W NON-STRESS Nolan Sebastian DO Work Phone: Start: 05-02-2025 US OB BPP W NON-STRESS Nolan Sebastian DO Work Phone: Start: 05-02-2025 Urnls dip stick/tabl et rgnt non-auto w/o micrscp Armida Trena T[employer] WASHER Work Phone: Start: 04-25-2025 US OB BPP W NON-STRESS Nolan Sebastian DO Work Phone: Start: 04-18-2025 US OB BPP W NON-STRESS Nolan Sebastian DO Work Phone: Start: 04-18-2025 Urnls dip stick/tabl et rgnt non-auto w/o micrscp Nolan Sebastian DO Work Phone: Start: 04-11-2025 OB BPP W NON-STRESS Nolan Sebastian DO Work Phone: Start: 04-05-2025 Urnls dip stick/tabl et rgnt non-auto w/o micrscp Nolan Sebastian DO Work Phone: Start: 03-08-2025 Hemoglobin glycosyla umm a1c Kenya Acosta PA-C Work Phone: Start: 03-07-2025 US OB INCOMPLETE ANATOMY Nolan Sebastian DO Work Phone: Start: 02-21-2025 Urnls dip stick/tabl et rgnt non-auto w/o micrscp Nolan Sebastian DO Work Phone: Start: 02-16-2025 Glucose quantitative blood xcpt reagent strip Kareem Cummings SALES CLOSER-[employer] Work Phone: Start: 02-07-2025 AFP, SERUM, OPEN SPI NA BIFIDA Nolan Sebastian DO Work Phone: Start: 01-24-2025 CHLAMYDIA/GC BY PCR HOLLEY SWAB Not In System Ref Prov Start: 01-24-2025 CHLAMYDIA/GC BY PCR THINPREP FLUID Not In System Ref Prov Start: 01-08-2025 Blood count complete automated Not In System Ref Prov Start: 01-08-2025 ALL CBC WITH AUTO DIFF Nolan Sebastian DO Work Phone: Start: 12-28-2024 Urnls dip stick/tabl et rgnt non-auto w/o micrscp Nolan Sebastian DO Work Phone: Start: 11-27-2024 Antibody screen Maame Cummings SALES CLOSER-[employer] Work Phone: Start: 11-27-2024 Drug scrn 1+ class nonchromo Not In System Ref Prov Start: 11-27-2024 FREE CELL DNA (NON-[place]) Not In System Ref Prov Start: 11-27-2024 Hemoglobin glycosyla umm a1c Nolan R Sebastian DO Work Phone: Start: 11-27-2024 HIV 1&2 AB/AG SCREEN (P24 AG) Not In System Ref Prov Start: 11-27-2024 Iaad ia hepatitis b surface antigen Not In System Ref Prov Start: 11-27-2024 Syphilis test non-treponemal antibody qual Not In System Ref Prov Start: 11-27-2024 TYPE AND SCREEN Not In System Ref Prov Start: 11-27-2024 ALL CBC WITH AUTO DIFF Nolan Sebastian DO Work Phone: Start: 02-19-2023 Microscopic observat ion [Identifier] in Cervix by Cyto stain Kareem Cummings SALES CLOSER-[facility] Work Phone: Plan of Treatment Date Care Activity Detail Author Start: 03-08-2026 Adult BMI Screening Adult BMI Screen ing [facility] [employer] [facility] Start: 02-19-2026 Screening for malign ant neoplasm of cervix Pap Smear [facility] [employer] [facility] Start: 02-16-2026 Adult BMI Screening Adult BMI Screen ing [facility] [employer] [facility] Start: 07-11-2025 Influenza vaccination Influenza Vacc ine [facility] Start: 06-07-2025 End: 06-07-2025 Patient encounter procedure 06/07/2025 9:30 AM EDT Routine [facility] [address] [place] [address] Nolan Cortes, DO [address] [place] [address] [facility] Start: 06-02-2025 End: 06-02-2025 Telemedicine consultation with patient 06/02/2025 9:30 AM EDT Telemedicine Maternal- Medicine at [facility] [address] [place] [facility] [place] [address] Kareem Cummings, SALES CLOSER-[employer] [address] [place] [facility] [place] [address] Maternal- Medicine at [facility] Start: 05-31-2025 End: 05-31-2026 CULTURE, GROUP B STREP WITH SUSCEPTIBLITY CULTURE, GROUP B STREP WITH SUSCEPTIBLITY Lab Routine Third trimester ([facility]) Expected: 05/31/2025, Expires: 05/31/2026 [facility] Work Phone: Comment on above: Expected: 05/31/2025 , Expires: 05/31/2026 Start: 05-31-2025 End: 05-31-2025 Patient encounter procedure 05/31/2025 10:50 AM EDT Routine [facility] [address] [place] [id number] Kristan Hall PA [address] [place] [address] [facility] Start: 05-24-2025 End: 05-24-2025 Patient encounter procedure 05/24/2025 8:40 AM EDT Routine [facility] [address] [place] [phone] Kristan Hall PA [address] [place], [place] [id number] [facility] Start: 05-17-2025 End: 05-17-2025 Patient encounter procedure 05/17/2025 11:40 AM EDT Routine [facility] [address] [place] [address] Nolan Cortes, DO [address] [place] [address] [facility] Start: 05-02-2025 End: 05-02-2025 Patient encounter procedure [facility] Comment on above: Arrived Start: 04-19-2025 End: 04-19-2025 Telemedicine consultation with patient 04/19/2025 10:30 AM EDT Telemedicine Maternal- Medicine at [facility] [address] [place] [address] Kenya Acosta PA-C [address] [place] [address], [place] [address] Maternal- Medicine at [facility] Start: 04-18-2025 End: 04-18-2025 Patient encounter procedure 04/18/2025 1:00 PM EDT Routine [facility] [address] [place] [address] Nolan Cortes, DO [address] [place] [address] [facility] Start: 04-05-2025 End: 10-06-2025 US biophysical profile w non stress test US biophysical profile w non stress test Imaging Routine Gestational diabetes mellitus (GDM), antepartum, gestational diabetes method of control unspecified H/O: hypertension Expected: 04/05/2025 (Approximate), Expires: 10/06/2025 [facility] Comment on above: Expected: 04/05/2025 (Approximate), Expires: 10/06/2025 Start: 04-05-2025 End: 04-05-2025 Patient encounter procedure [facility] Comment on above: Arrived Start: 03-23-2025 End: 03-23-2025 Telemedicine consultation with patient 03/23/2025 10:30 AM EDT Telemedicine Maternal- Medicine at [facility] [address] [place] [facility] [place] [address] Kareem Cummings, SALES CLOSER-[employer] [address] [place] [facility] [place] [address] Maternal- Medicine at [facility] Start: 03-14-2025 End: 03-14-2025 Patient encounter procedure 03/14/2025 1:50 PM EDT Routine [facility] [address] [place] [id number] Nolan Cortes, DO [address] [place] [address] [facility] Start: 03-08-2025 End: 06-07-2025 Protein creat ratio Protein creat ratio Lab Routine Gestational diabetes mellitus (GDM) in second trimester controlled on oral hypoglycemic drug Expected: 03/08/2025 (Approximate), Expires: 06/07/2025 [facility] Comment on above: Expected: 03/08/2025 (Approximate), Expires: 06/07/2025 Start: 03-08-2025 End: 03-08-2025 Patient encounter procedure 03/08/2025 1:00 PM EDT Office Visit Maternal- Medicine at [facility] [address] [place] [facility] [place] [address] Kenya Acosta, PASalomeC [address] [place] [address] Maternal- Medicine at [facility] Start: 02-21-2025 End: 02-21-2025 Patient encounter procedure 02/21/2025 1:20 PM EDT Routine [facility] [address] [place] [phone] Nolan Cortes, DO [address] [place] [address] [facility] Start: 02-14-2025 End: 02-14-2025 Professional / ancillary services management 02/14/2025 1:00 PM EDT Ancillary Procedure [facility] [address] [place] [phone] [facility] Start: 02-10-2025 End: 02-10-2025 ambulatory 02/10/2025 1:30 PM EDT Support Visit Maternal- Medicine at [facility] [address] [facility] [place] [address] Violet Lopez RN [address] [facility], [address] [place] [address], [place] [address] Jewels Pedersen, [place] [address] [place] [address] Maternal- Medicine at [facility] Start: 01-24-2025 End: 01-24-2025 Patient encounter procedure 01/24/2025 11:20 AM EDT Routine [facility] [address] [place] [phone] Nolan Cortes DO [address] [place] [address] [facility] Start: 12-28-2024 End: 12-28-2025 Measurement of glucose 1 hour after glucose challenge for glucose tolerance test Glucose tolerance, 1 hour Lab Routine Diabetes mellitus screening Expected: 12/28/2024 (Approximate), Expires: 12/28/2025 [facility] Work Phone: Comment on above: Expected: 12/28/2024 (Approximate), Expires: 12/28/2025 Start: 12-28-2024 End: 12-28-2024 Patient encounter procedure [facility] Comment on above: Arrived Start: 12-27-2024 End: 12-27-2024 Patient encounter procedure 12/27/2024 1:40 PM EST Routine [facility] [address] [facility] [place] [phone] Nolan Cortes, DO [address] [facility] [place] [address] [facility] Start: 11-26-2024 End: 11-26-2025 ABO/Rh ABO/Rh Lab Routine Missed menses , unspecified gestational age Expected: 11/26/2024 (Approximate), Expires: 11/26/2025 [facility] Comment on above: Expected: 11/26/2024 (Approximate), [...] first trimester Expected: 11/26/2024 (Approximate), Expires: 11/26/2025 [facility] Comment on above: Expected: 11/26/2024 (Approximate), Expires: 11/26/2025 Start: 07-11-2024 Influenza vaccination Influenza Vacc ine [facility] Start: 04-22-2024 Adult BMI Screening Adult BMI Screen ing [facility] Start: 04-22-2024 Tobacco Screening Tobacco Screening [facility] Start: 2011 DTaP,Tdap and Td Vaccines (1 - Tdap) DTaP,Tdap and Td Vaccines (1 - Tdap) [facility] Start: 2004 Depression Screening Depression Scre ening [facility] Start: 2004 Tobacco Screening Tobacco Screening [facility] Bacteria identified in Urine by Culture Urine culture Microbiology Routine Missed menses Ordered: 11/26/2024 [facility] Comment on above: Ordered: 11/26/2024 CBC W Auto Different ial panel - Blood CBC and differential Lab Routine Missed menses , unspecified gestational age Ordered: 11/26/2024 [facility] Comment on above: Ordered: 11/26/2024 End: 03-08-2026 Comprehensive metabolic 2000 panel - Serum or Plasma Comprehensive metabolic panel Lab Routine Gestational diabetes mellitus (GDM) in second trimester controlled on oral hypoglycemic drug 1 Occurrences starting 03/08/2025 until 03/08/2026 [facility] Work Phone: Comment on above: 1 Occurrences starti ng 03/08/2025 until 03/08/2026 Hemoglobin A1c/Hemoglobin.total in Blood Hemoglobin A1c Lab Routine Missed menses , unspecified gestational age Ordered: 11/26/2024 [facility] Comment on above: Ordered: 11/26/2024 Hepatitis B virus surface Ag [Presence] in Serum or Plasma by Immunoassay Hepatitis B surface antigen Lab Routine Missed menses , unspecified gestational age Ordered: 11/26/2024 [facility] Comment on above: Ordered: 11/26/2024 Hepatitis C virus Ab [Presence] in Serum or Plasma by Immunoassay Hepatitis C antibody Lab Routine Missed menses , unspecified gestational age Ordered: 11/26/2024 [facility] Comment on above: Ordered: 11/26/2024 HIV-1/HIV-2 antigen/antibody combination immunoassay HIV-1 and HIV-2 antibodies Lab Routine Missed menses , unspecified gestational age Ordered: 11/26/2024 [facility] Comment on above: Ordered: 11/26/2024 Reagin Ab [Presence] in Serum by RPR RPR Lab Routine Missed menses , unspecified gestational age Ordered: 11/26/2024 [facility] Comment on above: Ordered: 11/26/2024 Rubella antibody, IgG Rubella an tibody, IgG Lab Routine Missed menses , unspecified gestational age Ordered: 11/26/2024 [facility] Comment on above: Ordered: 11/26/2024 End: 10-06-2025 US for US OB follow up transabdominal approach Imaging Routine Gestational diabetes mellitus (GDM), antepartum, gestational diabetes method of control unspecified H/O: hypertension [id number] for 4 Occurrences starting 04/05/2025 until 10/06/2025 [facility] Work Phone: Comment on above: [id number] for 4 Occurr ences starting 04/05/2025 until 10/06/2025 Immunizations Immunization Date Immunization Notes Care Provider Fatoumata wilson 10-10-2023 influenza virus vaccine, unspecified formulation Kareem Cummings [employer] Work Phone: [place] 08-25-2021 RHO(D) immune globul in- IV or IM Kareme Cummings [employer] Work Phone: [employer] Payers Date Payer Category Payer [facility] [id number] 2018 [facility] - PPO ANTHEM [id number] 1992 Unknown [id number] 2.16.840.1.119967.3.579. 2.593 1992 Unknown [id number] 2.16.840.1.474083.3.579. 2.593 1992 Unknown [id number] 2.16.840.1.440377.3.579. 2.593 1992 Unknown [id number] 2.16.840.1.852527.3.579. 2.593 1992 Unknown [id number] 2.16.840.1.997782.3.579. 2.593 1992 Unknown [id number] 2.16.840.1.821390.3.579. 2.593 1992 Unknown [id number] 2.16.840.1.701260.3.579. 2.593 1992 Unknown [id number] 2.16.840.1.945914.3.579. 2.593 1992 Unknown [id number] 2.16.840.1.088457.3.579. 2.593 1992 Unknown [id number] 2.16.840.1.189740.3.579. 2.1286 1992 Unknown [id number] 2.16.840.1.610935.3.579. 2.1286 1992 Unknown [id number] 2.16.840.1.728635.3.579. 2.1286 1992 Unknown [id number] 2.16.840.1.509137.3.579. 2.1286 1992 Unknown [id number] 2.16.840.1.997942.3.579. 2.1259 1992 Unknown [id number] 2.16.840.1.249840.3.579. 2.1259 1992 Unknown [id number] 2.16.840.1.795388.3.579. 2.1259 1992 Unknown [id number] 2.16.840.1.168932.3.579. 2.1259 1992 Unknown [id number] 2.16.840.1.474930.3.579. 2.1259 1992 Unknown [id number] 2.16.840.1.182426.3.579. 2.9 1992 Unknown [id number] 2.16.840.1.093575.3.579. 2.9 1992 Unknown [id number] 2.16.840.1.665446.3.579. 2.9 1992 Unknown [id number] 2.16.840.1.745142.3.579. 2.1259 1992 Unknown [id number] 2.16.840.1.673359.3.579. 2.9 1992 Unknown [id number] 2.16.840.1.832106.3.579. 2.1259 1959 Unknown [id number] Social History Date Type Detail Facility Start: 02-18-2023 End: 04-22-2023 Tobacco smoking status IAIS Ex-smoker [facility] History of tobacco use Current smoker [facility] History of tobacco use Cigarette [facility]oker [facility] Start: 11-26-2024 End: 05-02-2025 Alcoholic beverage intake Lifetime non-drinker (finding) [facility] Start: 03-18-2024 End: 11-26-2024 History of Social function [facility] Start: 03-18-2024 End: 11-26-2024 Tobacco use panel [facility] Start: 10-01-2024 [facility] Start: 1990 Sex assigned at Not on file [facility] History of tobacco use Tobacco U se Types Packs/Day Years Used Date Smoking Tobacco: Former Vaping/E-cigarettes Smokeless Tobacco: Never [facility] Start: 02-18-2023 Tobacco use and exposure Smokeless tobacco non-user [facility] Start: 02-07-2025 End: 03-08-2025 Alcoholic beverage intake Ex-drinker (finding) [facility] Childcare Unknown [facility] Start: 10-05-2018 Alcohol Comment rare [facility] Start: 1990 Sex assigned at Female [facility] Start: 06-15-2015 Sex Female (finding) [facility] Start: 02-24-2023 Gender identity Identifies as female gender (finding) [facility] Start: 02-24-2023 Sexual orientation Heterosexual (finding) [facility] Medical Equipment Procedure Code Equipment Code Equipment Origin al Text Equipment Identifier Dates [id number], [id number], [id number] Start: 01-24-2025 End: 02-23-2025 Clinical Notes 11-26-2024 to 05-31-2025 Kristan Hall, JOANNE - 05/31/2025 10:50 AM JOANNE Kelly - 05/24/2025 8:40 AM EDTTelephone Encounter - Rufina Hurd CMA - 05/24/2025 8:37 AM EDTGrace Arita LPN - 05/17/2025 11:40 AM EDT Note Date & Type Note Facility 05-31-2025 History of Presen t illness Narrative Reason [...] Noted Benign essential hypertension in obstetric context ([facility]) 04/18/2023 Exposure to cat feces 04/18/2023 Gestational diabetes ([facility]) 04/18/2023 Nausea 04/18/2023 History of delivery 02/24/2023 Resolved Ambulatory Problems Diagnosis Date Noted No Resolved Ambulatory Problems Past Medical History: Diagnosis Date Chronic hypertension affecting ([facility]) Exposure to cat feces, sequela Former smoker Herpes exposure History of miscarriage Morbid obesity with BMI of 40.0-44.9, [place] HISTORY PAST MEDICAL HISTORY SOCIAL HISTORY Past Medical History: Diagnosis Date Chronic hypertension affecting ([facility]) Exposure to cat feces, sequela Former smoker Gestational diabetes ([facility]) Herpes exposure History of miscarriage Morbid [...] 1997 broken elbow NECK SURGERY to remove marquis - benign PAP SMEAR 09/11/2022 negative REVIEW [...] Vitals: Estimated body mass index is 49.49 kg/m as calculated from the following: Height as of 09/09/23: 5' 7 . Weight as of this encounter: 316 lb. BP: 130/84 Patient's last menstrual period was 09/17/2024. ASSESSMENT & PLAN ICD-10-CM 1. Third trimester ([facility]) Z34.93 POCT urinalysis dipstick manually resulted CULTURE, GROUP B STREP WITH SUSCEPTIBLITY CULTURE, GROUP B STREP WITH SUSCEPTIBLITY 2. 36 weeks gestation of ([facility]) Z3A.36 Return OB: Patient presents today [...] of: JOANNE Hernandez documented in this encounter [facility] 05-24-2025 History of Presen t illness Narrative Reason [...] Noted Benign essential hypertension in obstetric context ([facility]) 04/18/2023 Exposure to cat feces 04/18/2023 Gestational diabetes ([facility]) 04/18/2023 Nausea 04/18/2023 History of delivery 02/24/2023 Resolved Ambulatory Problems Diagnosis Date Noted No Resolved Ambulatory Problems Past Medical History: Diagnosis Date Chronic hypertension affecting ([facility]) Exposure to cat feces, sequela Former smoker Herpes exposure History of miscarriage Morbid obesity with BMI of 40.0-44.9, [place] [place] HISTORY PAST MEDICAL HISTORY SOCIAL HISTORY Past Medical History: Diagnosis Date Chronic hypertension affecting ([facility]) Exposure to cat feces, sequela Former smoker Gestational diabetes ([facility]) Herpes exposure History of miscarriage Morbid [...] 1997 broken elbow NECK SURGERY to remove marquis - benign PAP SMEAR 09/11/2022 negative REVIEW [...] Vitals: Estimated body mass index is 48.12 kg/m as calculated from the following: Height as of 09/09/23: 5' 7 . Weight as of this encounter: 307 lb 4 oz. BP: 130/82 Patient's last menstrual period was 09/17/2024. ASSESSMENT & PLAN ICD-10-CM 1. Third trimester ([facility]) Z34.93 POCT urinalysis dipstick manually resulted 2. 35 weeks gestation of ([facility]) Z3A.35 3. induced hypertension, antepartum ([facility]) O13.9 CANCELED: Creatinine CANCELED: Protein, urine, 24 [...] of: JOANNE Hernandez documented in this encounter [facility] 05-24-2025 Miscellaneous Notes ELECTRONIC PLOTTING SYSTEM OPERATOR CALLED PATIENT. NO ANSWER. LEFT VM ASKING PATIENT TO EMAIL US HER BLOOD GLUCOSE LOGS SO THAT THEY CAN BE REVIEWED BY OUR DIABETES TEAM. documented in this encounter [facility] 05-24-2025 Telephone encounter Note ELECTRONIC PLOTTING SYSTEM OPERATOR CALLED PATIENT. NO ANSWER. LEFT VM ASKING PATIENT TO EMAIL US HER BLOOD GLUCOSE LOGS SO THAT THEY CAN BE REVIEWED BY OUR DIABETES TEAM. [facility] 05-17-2025 History of Presen t illness Narrative Reason [...] Noted Benign essential hypertension in obstetric context ([facility]) 04/18/2023 Exposure to cat feces 04/18/2023 Gestational diabetes ([facility]) 04/18/2023 Nausea 04/18/2023 History of delivery 02/24/2023 Resolved Ambulatory Problems Diagnosis Date Noted No Resolved Ambulatory Problems Past Medical History: Diagnosis Date Chronic hypertension affecting ([facility]) Exposure to cat feces, sequela Former smoker Herpes exposure History of miscarriage Morbid obesity with BMI of 40.0-44.9, [place] [place] HISTORY PAST MEDICAL HISTORY SOCIAL HISTORY Past Medical History: Diagnosis Date Chronic hypertension affecting ([facility]) Exposure to cat feces, sequela Former smoker Gestational diabetes ([facility]) Herpes exposure History of miscarriage Morbid [...] 1997 broken elbow NECK SURGERY to remove marquis - benign PAP SMEAR 09/11/2022 negative REVIEW [...] nursing note reviewed. Exam conducted with a survey data technician present. Vitals: Estimated body mass index is 47.58 kg/m as calculated from the following: Height as of 09/09/23: 5' 7 . Weight as of this encounter: 303 lb 12.8 oz. BP: 126/78 Patient's last menstrual period was 09/17/2024. ASSESSMENT & PLAN ICD-10-CM 1. Third trimester ([facility]) Z34.93 2. 34 weeks gestation of ([facility]) Z3A.34 3. Gestational diabetes mellitus (GDM), antepartum, gestational diabetes method of control unspecified ([facility]) O24.419 Return OB: Patient presents today for [...] Nolan Cortes DO documented in this encounter [facility] 05-02-2025 History of Presen t illness Narrative Reason [...] Noted Benign essential hypertension in obstetric context ([facility]) 04/18/2023 Exposure to cat feces 04/18/2023 Gestational diabetes ([facility]) 04/18/2023 Nausea 04/18/2023 History of delivery 02/24/2023 Resolved Ambulatory Problems Diagnosis Date Noted No Resolved Ambulatory Problems Past Medical History: Diagnosis Date Chronic hypertension affecting ([facility]) Exposure to cat feces, sequela Former smoker Herpes exposure History of miscarriage Morbid obesity with BMI of 40.0-44.9, [place] [place] HISTORY PAST MEDICAL HISTORY SOCIAL HISTORY Past Medical History: Diagnosis Date Chronic hypertension affecting ([facility]) Exposure to cat feces, sequela Former smoker Gestational diabetes ([facility]) Herpes exposure History of miscarriage Morbid [...] 1998 broken elbow NECK SURGERY to remove marquis - benign PAP SMEAR 09/11/2022 negative REVIEW [...] nursing note reviewed. Exam conducted with a survey data technician present. Vitals: Estimated body mass index is 47.16 kg/m as calculated from the following: Height as of 09/09/23: 5' 7 . Weight as of this encounter: 301 lb 1.9 oz. BP: 130/82 Patient's last menstrual period was 09/17/2024. ASSESSMENT & PLAN ICD-10-CM 1. 32 weeks gestation of ([facility]) Z3A.32 POCT urinalysis dipstick manually resulted 2. Third trimester ([facility]) Z34.93 POCT urinalysis dipstick manually resulted [...] She is sending her glucose logs to [facility] for review. She has continued with NST / BPP. Orders Placed This Encounter Procedures POCT urinalysis dipstick manually resulted Follow Up: Patient is to return to office in 2 week for routine OB appointment. Documented by Armida Albrecht NP on behalf of: Armida Albrecht NP documented in this encounter [facility] 04-29-2025 Miscellaneous Notes ELECTRONIC PLOTTING SYSTEM OPERATOR CALLED THE PATIENT. NO ANSWER. LEFT VM ASKING THE PATIENT TO GIVE US A CALL TO SCHEDULE HER 4 WEEK FOLLOW UP APPOINTMENT AT THE REQUEST OF HER PROVIDER. LEFT OUR NUMBER AND INSTRUCTED HER TO SELECT OPTION 3 TO REACH ONE OF OUR SCHEDULERS. documented in this encounter [facility] 04-29-2025 Telephone encounter Note ELECTRONIC PLOTTING SYSTEM OPERATOR CALLED THE PATIENT. NO ANSWER. LEFT VM ASKING THE PATIENT TO GIVE US A CALL TO SCHEDULE HER 4 WEEK FOLLOW UP APPOINTMENT AT THE REQUEST OF HER PROVIDER. LEFT OUR NUMBER AND INSTRUCTED HER TO SELECT OPTION 3 TO REACH ONE OF OUR SCHEDULERS. 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 Ultra Thin, Disp: , Rfl: metFORMIN XR (GLUCOPHAGE XR) 500 mg 24 hr tablet, Take 500mg in am with breakfast and 1000 mg in pm with dinner, Disp: 60 tablet, Rfl: 4 ondansetron ODT (ZOFRAN-ODT) 4 mg disintegrating tablet, Dissolve 1 tablet (4 mg total) on tongue every 8 (eight) hours as needed for nausea for up to 10 doses., Disp: 10 tablet, Rfl: 0 pen needle, diabetic (BD ULTRA-FINE SILVIA PEN NEEDLE) 32 gauge x 5/32 needle, Use a new needle with each injection, Disp: 100 each, Rfl: 3 vit calc,iron,folic ( VITAMIN ORAL), Take 1 tablet by mouth in the morning., Disp: , Rfl: LABS: Lab Results Component Value Date TSH 0.495 01/31/2023 No components found for: UPRC Lab Results Component Value Date CREATININE 0.49 [...] abdominal pain, nausea, vomiting, vaginal bleeding, and vaginal discharge PHYSICAL EXAMINATION: Gen: NAD DISCUSSION Glucose goals in : Fasting 60 - 95: Mean fasting glucose values are important in managing diabetes in women because they provide overall glycemic estimate, and are predictive of increased fat mass in the women s offspring. Increased fat mass has been shown [...] signs/symptoms of hypoglycemia, and examples of treatment of hypoglycemia (15/15 rule). Discussed her current diet and [...] cell free dna - Anatomy survey with [facility] - please contact us if you would [...] Delivery recommendations : - Recommend delivery at [id number] - reviewed with patient - Discuss delivery [...] values to us weekly by e-mail to: [email or web address] or by fax to: [phone] Kenya Acosta PA-C Maternal- Medicine Office phone: [phone] Kenya Acosta PA-C 04/19/25 1051 documented in this encounter [facility] 04-19-2025 Miscellaneous Notes ELECTRONIC PLOTTING SYSTEM OPERATOR CALLED PATIENT. NO ANSWER. LEFT VM FOR PATIENT TO EMAIL US HER BLOOD GLUCOSE LOG FOR HER UPCOMING APPOINTMENT WITH KENYA AT 10:30 AM documented in this encounter [facility] 04-19-2025 Telephone encounter Note ELECTRONIC PLOTTING SYSTEM OPERATOR CALLED PATIENT. NO ANSWER. LEFT VM FOR PATIENT TO EMAIL US HER BLOOD GLUCOSE LOG FOR HER UPCOMING APPOINTMENT WITH KENYA AT 10:30 AM [facility] 04-18-2025 History of Presen t illness Narrative Reason [...] Morbid obesity with BMI of 40.0-44.9, adult ([facility]) HISTORY PAST MEDICAL HISTORY SOCIAL HISTORY Past Medical History: Diagnosis Date Chronic hypertension affecting Exposure to cat feces, sequela Former smoker Gestational diabetes Herpes exposure History of miscarriage Morbid obesity with BMI of 40.0-44.9, adult ([facility]) Social History Tobacco Use Smoking status: [...] 1997 broken elbow NECK SURGERY to remove marquis - benign PAP SMEAR 09/11/2022 negative REVIEW [...] nursing note reviewed. Exam conducted with a survey data technician present. Vitals: Estimated body mass index is 46.27 kg/m as calculated from the following: Height [...] Nolan Cortes DO documented in this encounter [facility] 04-05-2025 History of Presen t illness Narrative Reason [...] Morbid obesity with BMI of 40.0-44.9, adult ([facility]) HISTORY PAST MEDICAL HISTORY SOCIAL HISTORY Past Medical History: Diagnosis Date Chronic hypertension affecting Exposure to cat feces, sequela Former smoker Gestational diabetes Herpes exposure History of miscarriage Morbid obesity with BMI of 40.0-44.9, adult ([facility]) Social History Tobacco Use Smoking status: [...] 1997 broken elbow NECK SURGERY to remove marquis - benign PAP SMEAR 09/11/2022 negative REVIEW [...] nursing note reviewed. Exam conducted with a survey data technician present. Vitals: Estimated body mass index is 46.52 kg/m as calculated from the following: Height [...] Nolan Cortes DO documented in this encounter [facility] 03-23-2025 History of Presen t illness Narrative REASON FOR OFFICE VISIT: Video Visit via Real-time Synchronous Audiovisual Provider Location: [facility] AT [address] [id number] Patient Location: Patient's home Video Visit Consent Statement: I discussed risks, benefits, and alternatives of a real-time synchronous audiovisual consultation with the patient (and any accompanying persons) including the risks that the patient's personal health details and medical records will be discussed over real-time, synchronous, interactive video/audio/telecommunication technology, the visit will not be recorded without the express consent of both the provider and the patient, and that there are some limitations compared to [id number] evaluations. The patient consented to the presence of additional virtual and/or in-person participants. We elected to proceed. 1. GDMA2; A1c 5.8% on 03/07 2. 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 cf DNA testing low risk male HISTORY OF PRESENT ILLNESS: Charlene Purvis is a pleasant 34 y.o. at 26w5d due on Estimated Date of Delivery: 06/24/25. Currently the patient has no complaints. The patient denies WONG, nausea, vomiting, abdominal pain, vaginal bleeding, contractions, leaking fluid or chest pain. She is being followed [facility] GD[facility]. States she is following meal plan as much as possible and eating evening snack. FBS - 95-101 1 HR Postprandial - 129-139 Past Medical History PAST OBSTETRICAL HISTORY: OB History 3 Para 1 Term 1 AB 1 Living 1 SAB 1 IAB Ectopic Multiple Live Births 1 SURGICAL HISTORY: Past Surgical History: Procedure Laterality Date ELBOW SURGERY Right LAPAROSCOPIC CHOLECYSTECTOMY N/A 10/27/2018 Performed by Vince Ardon DO at [facility] mole removed from neck ALLERGIES: [...] XR) 500 mg 24 hr tablet, Take 1 tablet (500 mg total) by mouth in the morning and 1 tablet (500 mg total) before bedtime., Disp: 60 tablet, Rfl: 4 ondansetron (ZOFRAN) 4 mg tablet, Take 1 tablet (4 mg total) by mouth every 8 (eight) hours as needed for nausea or vomiting. (Patient not taking: Reported on 03/08/2025), Disp: , Rfl: ondansetron ODT (ZOFRAN-ODT) 4 mg disintegrating tablet, Dissolve 1 tablet (4 mg total) on tongue every 8 (eight) hours as needed for nausea for up to 10 doses., Disp: 10 tablet, Rfl: 0 vit calc,iron,folic ( VITAMIN ORAL), Take 1 tablet by mouth in the morning., Disp: , Rfl: progesterone (PROMETRIUM) 200 mg capsule, Place 200 mg Inside vagina every night until 36 weeks. (Patient not taking: Reported on 03/08/2025), Disp: 90 capsule, Rfl: 3 LABS: Lab Results Component Value Date CREATININE 0.49 08/25/2021 Lab Results Component Value Date TSH 0.495 01/31/2023 No results found for: [id number] Lab Results Component Value Date CREATININE 0.49 08/25/2021 BUN 8 08/25/2021 K 3.3 (L) 08/25/2021 CL 99 08/25/2021 CO2 23 08/25/2021 Lab Results Component Value Date ALT 19 10/14/2018 AST 19 10/14/2018 ALKPHOS 62 10/14/2018 Lab Results Component Value Date HGBA1C 5.5 11/27/2024 REVIEW OF SYSTEMS: Head and Neck: Negative for any dizziness and headaches. Cardiovascular and Respiratory System: Denies any chest pain, shortness of breath, and coughing. Abdominal and System: Denies any abdominal pain, nausea, vomiting, vaginal bleeding, and vaginal discharge PHYSICAL EXAMINATION: LMP 09/17/2024 Gravid abdomen, Alert & Oriented. Respirations not labored. DISCUSSION: Fasting levels slightly elevated above 94 with PP right on the verge of being elevated after meals. Patient is incorporating a lot of activity to help lower glucose levels. Hyperglycemia Importance of good blood sugar control was emphasized. The potential effects of uncontrolled diabetes before and during on herself were discussed including: preeclampsia, induced hypertension, labor, , and polyhydramnios. Potential effects on baby were explained: stillbirth, miscarriage, macrosomia, jaundice, trauma, hypoglycemia, respiratory distress and hypocalcemia. Long-term risk to offspring from poor maternal glycemic control include: obesity, cardiovascular disease, impaired glucose tolerance and Type 2 diabetes. Medication initiation Initiation of medication: When diet and exercise fail to maintain normal blood glucose level, medication therapy is indicated. Medication is initiated when > 20% of the blood glucose values in one week are out of range, or BG values are repeatedly elevated a specific time of day; and meal plan or activity cannot be modified to correct elevated blood glucose. Oral vs. SQ treatment Discussed oral hyperglycemic agent Metformin. Explained this medication does cross the placenta and reach the baby. Little research has been done on mcc effects of Metformin exposure to the fetus. We do use in with every effort to minimize exposure. Also discussed possible GI side effects from this medication. Discussed insulin which does not cross the placenta, nor have the GI side effects like Metformin. Insulin is the recommended first line of treatment for diabetes in . Insulin administration Patient was instructed on: action of prescribed insulin, when to take prescribed doses in relation to daily schedule/meals, use of an insulin pen, how to given an injection into the sub-Q tissues with recommendation on use of abdomen, rotation of injections within designated site, proper disposal of sharps, and hypoglycemia. Patient education materials offered via email: insulin action chart, hypoglycemia management, proper disposal of sharps, and procedure guide sheet for use of an insulin pen and declined. She used insulin with her last . Patient prefers to stay on Metformin as long as possible due to needle aversion Recommended carbohydrate allocation ranges: 30-45 g for breakfast, 45-60 g for lunch and dinner, and 15-g snacks roughly 2-3 hours after each meal. A1c less than 6% has the lowest risk for LGA infant SUMMARY/RECOMMENDATION: The following is a summary of our recommendations: 1. Blood work: Not at time for baseline 2. Medication: Metformin increased to 500 mg in am and 1000 mg in pm Other medications as above 3. testin wk anatomy scan Twice weekly NST w/ weekly DVP at 32 weeks growth ultrasounds every 4 weeks starting at 28 weeks 4. Delivery timing: Consider planned delivery btw 39/0-39/6 weeks or before if indicated Use 1/2 dose of insulin the night before her planned delivery. GDMA2:may monitor patient's BG every 4hrs during latent labor, every 1 hr during active labor with goal BG to be less than 140mg/dl. Can use insulin sliding scale prn hyperglycemia. No need for insulin use the day of her delivery Concern for pre-gestational diabetes post glucose measuring (fasting and 1 hr PP after each meal) is recommended for 2 weeks with f/u to PCP 5. Post : Please obtain a 2-hour GTT directly while still hospitalized after delivery or 4-12 weeks out patient and then A1c yearly as the patient has a 20% risk of having or developing diabetes later on. 6. Follow-up appointment: In 4 weeks to Maternal- Medicine. I asked her to keep sending values to us weekly by e-mail to: [email or web address] or by fax to: [phone] TIME OF CONSULTATION: 25 minutes with the patient, >50% in discussion and counseling, coordination of care which was [id number], review of records and communication back to referring provider. 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 NO ANSWER. LEFT VM FOR PATIENT TO EMAIL US HER BLOOD GLUCOSE LOG SO THAT WE WILL HAVE IT FOR HER APPOINTMENT TODAY. documented in this encounter [facility] 03-23-2025 Telephone encounter Note ELECTRONIC PLOTTING SYSTEM OPERATOR CALLED PATIENT. NO ANSWER. LEFT VM FOR PATIENT TO EMAIL US HER BLOOD GLUCOSE LOG SO THAT WE WILL HAVE IT FOR HER APPOINTMENT TODAY. [facility] 03-16-2025 Miscellaneous Notes Summary: [facility] Blood Glucose Log Called. No answer. Message left requesting more FBS numbers from this week as noted recently started Metformin this past Friday03/11/25. documented in this encounter [facility] 03-16-2025 Telephone encounter Note Summary: [facility] Blood Glucose Log Called. No answer. Message left requesting more FBS numbers from this week as noted recently started Metformin this past Friday03/11/25. [facility] Work Phone: 03-14-2025 History of Presen t illness Narrative Reason [...] FOR A TOTAL OF FOUR TIMES DAILY ondansetron ODT (ZOFRAN-ODT) 4 mg, Every 8 [...] Morbid obesity with BMI of 40.0-44.9, adult ([facility]) HISTORY PAST MEDICAL HISTORY SOCIAL HISTORY Past Medical History: Diagnosis Date Chronic hypertension affecting Exposure to cat feces, sequela Former smoker Gestational diabetes Herpes exposure History of miscarriage Morbid obesity with BMI of 40.0-44.9, adult ([facility]) Social History Tobacco Use Smoking status: [...] 1998 broken elbow NECK SURGERY to remove marquis - benign PAP SMEAR 09/11/2022 negative REVIEW [...] nursing note reviewed. Exam conducted with a survey data technician present. Vitals: Estimated body mass index is 46.05 kg/m as calculated from the following: Height as of 09/09/23: 5' 7 . Weight as of this encounter: 294 lb. BP: 118/72 Patient's last menstrual period was 09/17/2024. ASSESSMENT & PLAN ICD-10-CM 1. Second trimester Z34.92 2. 25 weeks gestation of Z3A.25 Patient presents today for a routine obstetrics appointment. Patient is currently 25w3d with a Estimated Date of Delivery: 06/24/25. Patient to return to clinic in 4 weeks for routine OB appointment. Documented by Carole Maxwell LPN on behalf of: Nolan Cortes DO documented in this encounter [facility] 03-08-2025 History of Presen t illness Narrative Maternal- Medicine Consultation HISTORY OF PRESENT ILLNESS: Charlene Purvis is a 34 y.o. female at 24w4d due on Estimated Date of Delivery: 06/24/25 complicated by GDMA with h/o GDMA2, h/o PTD. Patient is feeling well today. She denies contractions, vaginal bleeding, leaking fluid. She appreciates movement. Patient denies headache, visual symptoms, right upper abdominal pain, increase in edema, SOB, chest pain. 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 PAST OBSTETRICAL HISTORY: OB History 3 Para 1 Term 1 AB 1 Living 1 SAB 1 IAB Ectopic Multiple Live Births 1 SURGICAL HISTORY: Past Surgical History: Procedure Laterality Date ELBOW SURGERY Right LAPAROSCOPIC CHOLECYSTECTOMY N/A 10/27/2018 Performed by Vince Ardon DO at [facility] SURGERY mole removed from neck ALLERGIES: No Known Allergies CURRENT MEDICATIONS: Current Outpatient Medications: aspirin 81 mg chewable tablet, Chew 1 tablet (81 mg total) and swallow in the morning., Disp: , Rfl: blood sugar diagnostic (glucose blood) strip, 1 strip by other route as needed for high blood sugar. ReliOn test strips, Disp: , Rfl: blood-glucose meter (RELION MICRO GLUCOSE MONITOR) [facility], by miscellaneous route., Disp: , Rfl: glyBURIDE (DIABETA) 2.5 mg tablet, Take 1.5 tablets (3.75 mg total) by mouth once daily at bedtime. Pt takes 2.5 mg at bedtime (Patient not taking: Reported on 04/22/2023), Disp: 90 tablet, Rfl: 3 labetaloL (NORMODYNE) 100 mg tablet, Take 100 mg by mouth 2 (two) times a day. (Patient not taking: Reported on 02/24/2023), Disp: , Rfl: lancets (LANCETS,ULTRA THIN) misc, by miscellaneous route. Ultra Thin, Disp: , Rfl: ondansetron (ZOFRAN) 4 mg tablet, Take 1 tablet (4 mg total) by mouth every 8 (eight) hours as needed for nausea or vomiting., Disp: , Rfl: ondansetron ODT (ZOFRAN-ODT) 4 mg disintegrating tablet, Dissolve 1 tablet (4 mg total) on tongue every 8 (eight) hours as needed for nausea for up to 10 doses., Disp: 10 tablet, Rfl: 0 vit calc,iron,folic ( VITAMIN ORAL), Take 1 tablet by mouth daily., Disp: , Rfl: progesterone (PROMETRIUM) 200 mg capsule, Place 200 mg Inside vagina every night until 36 weeks., Disp: 90 capsule, Rfl: 3 LABS: Lab Results Component Value Date TSH 0.495 01/31/2023 No components found for: UPRC Lab Results Component Value Date CREATININE 0.49 [...] abdominal pain, nausea, vomiting, vaginal bleeding, and vaginal discharge PHYSICAL EXAMINATION: Gen: NAD Abdomen: Gravid, non tender, +FHTs DISCUSSION Gestational diabetes is a is a state of carbohydrate intolerance with subsequently insulin resistance and hyperglycemia. This is a malfunction or dysfunction of glucose sensors in the liver with inappropriate release of glucose followed by hyperinsulinemia followed by normal insulin secretion and then relatively deficiency in insulin secretion resulting in both hyperglycemia and associated hypertriglyceridemia. This along with placental hormones such as human placental lactogen and TNF alpha cause hyperglycemia. The patient eventually develops insulin resistance and hyperglycemia Thus the patient's insulin is not sufficient to achieve a normal glycemic state. I informed the patient that maternal hyperglycemia results in hyperglycemia leading to adverse outcomes in the growth and development. We reviewed the implications and risks of diabetes in . Diabetes in is associated with poorer outcomes if blood glucose levels are not well controlled. Potential effects of uncontrolled diabetes , or hyperglycemia, include: macrosomia, hypoglycemia, shoulder dystocia, delivery by section, polyhydramnios, and demise. In addition, women with diabetes in are at increased risk of developing hypertension diseases in ,such as gestational hypertension, or preeclampsia. Patient was explained that the high risk of shoulder dystocia in fetuses with EFW 4500 gm or higher. Long-term risk to offspring from poor maternal glycemic control include: obesity, cardiovascular disease, impaired glucose tolerance and Type 2 diabetes. Treatment for diabetes in : Lifestyle modification with a healthy diet and increasing physical activity can help manage hyperglycemia, and is therefore always encouraged. We briefly discussed diet modifications and physical activity. The mainstay of pharmacotherapy for the treatment of diabetes in remains insulin. Oral hypoglycemics, such as metformin, both cross the placenta and are more likely to fail compared to insulin. [facility] data on children whose mothers took oral hypoglycemic agents while is limited. Medication is typically initiated when >20-30% of the blood glucose values in one week are out of range. Risks and side effects of both insulin and oral agents were discussed. In discussion of the above, patients opts to initiate metformin Reviewed common side effects of nausea, GI upset, diarrhea with metformin, which can eventually dissipate. Glucose goals in : Fasting 60 - 95: Mean fasting glucose values are important in managing diabetes in women because they provide overall glycemic estimate, and are predictive of increased fat mass in the women s offspring. Increased fat mass has been shown [...] signs/symptoms of hypoglycemia, and examples of treatment of hypoglycemia ( rule). Discussed her current diet and her [...] modifications. PLAN - Current blood glucose control: elevated fastings, borderline post prandials - Medication: - None - desires to start metformin over insulin. Start metformin 500mg qhs x 1 week, then increase to 500mg BID thereafter - Continue aspirin 81mg once daily - Labs - A1c: per outside records, 5.5 on 11/27/24 - Baseline preeclampsia labs: CMP, Plts, urine P/C ratio - low risk cell free dna - Anatomy survey with MFM - please contact us if you would [...] Delivery recommendations : - Recommend delivery at [id number] - reviewed with patient - Discuss delivery if estimated weight is >4500g - Obtain a 2-hour GTT 6-8 weeks . Also recommend yearly evaluation of blood glucose as patient is at an increased risk of developing diabetes later on - discussed with patient - patient tells me she had discussed cervical length ultrasounds with her primary team Labor symptoms,bleeding precautions reviewed. Follow up in 1-2 weeks with Maternal- Medicine. I asked her to keep sending values to us weekly by e-mail to: or by fax to: [phone] Kenya Acosta PA-C Maternal- Medicine Office phone: [phone] Kenya Acosta PA-C 03/08/25 8590 Headache/epigastric pain/blurry vision/swelling? no Cramping/contractions? no Abnormal vaginal discharge? no Spotting/vaginal bleeding? Loss or gush of fluid like your water may have broken? no Do you have cats at home? yes Do you change the litter box (reason: risk of toxoplasmosis)? no Genetic testing done this here or other office? yes/low risk/ male Have you been seen here at [facility] in a previous ? Yes/with daughter Recent ER visits or hospitalizations? no Bring blood sugar log or meter with you today? (Please bring them with you for every visit at [facility]) yes Flu vaccine (Sep-January)? Any concerns that you would like me to mention to the provider today? documented in this encounter [facility] 03-08-2025 Miscellaneous Notes Disclaimer: This note is intended for educational purposes only. It does not constitute a patient visit and is not to be used or relied on for treatment, billing, or any other purposes. It has been created solely for to enable the student to practice documentation to achieve the expected level of competency in charting and receive feedback regarding same. This note is not a part of the legal medical record. documented in this encounter [facility] 03-08-2025 Progress note Formatting of t his note might be different from the original. Disclaimer: This note is intended for educational purposes only. It does not constitute a patient visit and is not to be used or relied on for treatment, billing, or any other purposes. It has been created solely for to enable the student to practice documentation to achieve the expected level of competency in charting and receive feedback regarding same. This note is not a part of the legal medical record. [facility] 03-08-2025 Miscellaneous Notes [employer] called patient. No answer. Left voicemail for the patient to email us her blood glucose logs for her upcoming appointment today with Kenya Acosta. Also stated if she had any questions she could give us a call at [phone]. documented in this encounter [facility] 03-08-2025 Telephone encounter Note Member [employer] called patient. No answer. Left voicemail for the patient to email us her blood glucose logs for her upcoming appointment today with Kenya Acosta. Also stated if she had any questions she could give us a call at [phone]. [facility] 03-04-2025 Miscellaneous Notes Patient returned call, discussed all but 1 fasting is elevated which meets criteria for a medication start appointment. Patient states she was on insulin with last and expected this to happen again. Transferred to scheduling. documented in this encounter [facility] 03-04-2025 Telephone encounter Note Patient returned call, discussed all but 1 fasting is elevated which meets criteria for a medication start appointment. Patient states she was on insulin with last and expected this to happen again. Transferred to scheduling. [facility] 03-02-2025 Miscellaneous Notes Called and left voicemail regarding blood sugar log with 6 fasting elevations. Notified patient this does meet criteria to come in and speak to a provider regarding medication start. Number for scheduling provided. Encouraged patient to call diabetes line with any questions. documented in this encounter [facility] 03-02-2025 Telephone encounter Note Called and left voicemail regarding blood sugar log with 6 fasting elevations. Notified patient this does meet criteria to come in and speak to a provider regarding medication start. Number for scheduling provided. Encouraged patient to call diabetes line with any questions. [facility] 02-24-2025 Miscellaneous Notes Called regarding blood sugar and food logs from 02/21/2025-02/20/2025. All her fasting blood sugars are elevated. Asked her to return my call at [phone]. Charlene called back. Currently doing peanut butter and crackers in the evening about 20 grams. Suggested doing a higher fiber snack like 6 tricuits and 1/4 cup of hummus or a high fiber wrap with cheese. Also being active for 20-30 minutes after supper may help. Charlene does a good job with monitoring carbohydrates and balancing most meals and snacks. A struggle with Charlene is that her toddler is up during the night so it sounds like Charlene only gets 2-3 hours of sleep at a time. Continue to send in blood sugars weekly. documented in this encounter [facility] 02-24-2025 Telephone encounter Note Called regarding blood sugar and food logs from 02/21/2025-02/20/2025. All her fasting blood sugars are elevated. Asked her to return my call at [phone]. Charlene called back. Currently doing peanut butter and crackers in the evening about 20 grams. Suggested doing a higher fiber snack like 6 tricuits and 1/4 cup of hummus or a high fiber wrap with cheese. Also being active for 20-30 minutes after supper may help. Charlene does a good job with monitoring carbohydrates and balancing most meals and snacks. A struggle with Charlene is that her toddler is up during the night so it sounds like Charlene only gets 2-3 hours of sleep at a time. Continue to send in blood sugars weekly. [facility] Work Phone: 02-21-2025 History of Presen t illness Narrative Reason [...] FOR A TOTAL OF FOUR TIMES DAILY Glucose Blood (Blood Glucose Test) strip 1 strip, In Vitro, Daily, Use in the morning prior to breakfast, 1 hour after each meal for a total of 4times daily. Lancets Ultra Thin misc 1 each, In Vitro, Daily, Use to check FSBS four times daily ondansetron ODT (ZOFRAN-ODT) 4 mg, Every 8 [...] Morbid obesity with BMI of 40.0-44.9, adult ([facility]) HISTORY PAST MEDICAL HISTORY SOCIAL HISTORY Past Medical History: Diagnosis Date Chronic hypertension affecting Exposure to cat feces, sequela Former smoker Gestational diabetes Herpes exposure History of miscarriage Morbid obesity with BMI of 40.0-44.9, adult ([facility]) Social History Tobacco Use Smoking status: [...] 1998 broken elbow NECK SURGERY to remove marquis - benign PAP SMEAR 09/11/2022 negative REVIEW OF SYSTEMS Review of Systems: Review of Systems All other systems reviewed and are negative. OBJECTIVE Objective: Physical Exam Constitutional: Appearance: Normal [...] nursing note reviewed. Exam conducted with a survey data technician present. Vitals: Estimated body mass index is 45.42 kg/m as calculated from the following: Height as of 09/09/23: 5' 7 . Weight as of this encounter: 290 lb. BP: 122/84 Patient's last menstrual period was 09/17/2024. ASSESSMENT & PLAN ICD-10-CM 1. Second trimester Z34.92 POCT urinalysis dipstick manually resulted 2. 22 weeks gestation of Z3A.22 Patient presents today for a routine obstetrics appointment. Patient is currently 22w3d with a Estimated Date of Delivery: 06/24/25. Patient currently seeing MFM for GDM. Patient to RTC in 3 weeks. Patient BP is doing well and aware that NST/BPP will be started at 32 weeks. Documented by Carole Maxwell LPN on behalf of: Nolan Cortes DO documented in this encounter [facility] 02-16-2025 Group counseling note Patient: Charlene Purvis Date: 02/16/2025 Vitals: 02/16/25 1318 Weight: 129.7 kg (286 lb) Patient present for diabetes education group class per doctor order secondary to diagnosis of GDM and/or abnormal glucose tolerance. Food recall not completed. Pt has gained 18 # to date. Weight gain goal is 11-20#. Pt appears willing to make changes. Nutrition diagnosis: inconsistent carbohydrate intake related to lack of nutrition knowledge as evidenced by food log. Instructed pt in 1900 kcal meal plan of 3 meals and 3 snacks, carbohydrate counting, label reading, dining out, and portion control. Energy content of meal plan to be adjusted as needed based on patient's blood glucose control and weight gain/loss. Discussed foods rich in iron and calcium. Encouraged pt to limit dining out and measure carbohydrates for 2 days. To send 2 day food log and blood glucoses. Please refer to health habits for other goals. Face to face time was 75 minutes. [facility] Work Phone: 02-16-2025 Miscellaneous Notes Patient: Charlene Purvis Date: 02/16/2025 Vitals: 02/16/25 1318 Weight: 129.7 kg (286 lb) Patient present for diabetes education group class per doctor order secondary to diagnosis of GDM and/or abnormal glucose tolerance. Food recall not completed. Pt has gained 18 # to date. Weight gain goal is 11-20#. Pt appears willing to make changes. Nutrition diagnosis: inconsistent carbohydrate intake related to lack of nutrition knowledge as evidenced by food log. Instructed pt in 1900 kcal meal plan of 3 meals and 3 snacks, carbohydrate counting, label reading, dining out, and portion control. Energy content of meal plan to be adjusted as needed based on patient's blood glucose control and weight gain/loss. Discussed foods rich in iron and calcium. Encouraged pt to limit dining out and measure carbohydrates for 2 days. To send 2 day food log and blood glucoses. Please refer to health habits for other goals. Face to face time was 75 minutes. documented in this encounter [facility] 02-07-2025 History of Presen t illness Narrative PAPER CHART ABSTRACTED FOR DIABETIC ED AT [facility]. documented in this encounter [facility] 12-28-2024 History of Presen t illness Narrative [...] Morbid obesity with BMI of 40.0-44.9, adult ([facility]) HISTORY PAST MEDICAL HISTORY SOCIAL HISTORY Past Medical History: Diagnosis Date Chronic hypertension affecting Exposure to cat feces, sequela Former smoker Gestational diabetes Herpes exposure History of miscarriage Morbid obesity with BMI of 40.0-44.9, adult ([facility]) Social History Tobacco Use Smoking status: [...] 1997 broken elbow NECK SURGERY to remove marquis - benign PAP SMEAR 09/11/2022 negative REVIEW [...] nursing note reviewed. Exam conducted with a survey data technician present. Vitals: Estimated body mass index is [...] undercooked meat, and stay away from [facility]. Patient has been consulted regarding any further do's and don'ts of . Patient voiced understanding and all questions and concerns were answered. Orders Placed This Encounter Procedures POCT urinalysis dipstick manually resulted Follow Up: Patient is to return in 4 weeks for routine OB appointment. Documented by Grace Arita LPN on behalf of: Nolan Cortes DO documented in this encounter [facility] 11-26-2024 History of Presen t illness Narrative [...] Morbid obesity with BMI of 40.0-44.9, adult ([facility]) Family History Problem Relation Name Age [...] 1998 broken elbow NECK SURGERY to remove marquis - benign PAP SMEAR 09/11/2022 negative No [...] undercooked meat, and stay away from [facility]. Patient has also been advised to [...] in this encounter [facility] Evaluation note Diagnosis Missed menses , unspecified gestational age Encounter for supervision of normal first in first trimester [facility] Diagnosis Second trimester state, incidental 14 weeks gestation of Diabetes mellitus screening Screening for diabetes mellitus [facility] Diagnosis Diet controlled gestational diabetes mellitus (GDM) in second trimester- Primary Encounter for diabetes education [facility] Diagnosis Second trimester state, incidental 22 weeks gestation of [facility] Diagnosis Gestational diabetes mellitus (GDM) in second trimester controlled on oral hypoglycemic drug- Primary [facility] Diagnosis Second trimester state, incidental 25 weeks gestation of [facility] Diagnosis Gestational diabetes mellitus (GDM) in second trimester controlled on oral hypoglycemic drug [facility] Diagnosis Third trimester state, incidental 28 weeks gestation of Gestational diabetes mellitus (GDM), antepartum, gestational diabetes method of control unspecified H/O: hypertension Personal history of other diseases of circulatory system [facility] Diagnosis 30 weeks gestation of Third trimester state, incidental [facility] Diagnosis Gestational diabetes mellitus (GDM) in second trimester controlled on oral hypoglycemic drug- Primary [facility] Diagnosis 32 weeks gestation of (HHS-HCC) Third trimester (HHS-HCC) state, incidental [facility] Diagnosis Third trimester (HHS-HCC) state, incidental 34 weeks gestation of (HHS-HCC) Gestational diabetes mellitus (GDM), antepartum, gestational diabetes method of control unspecified (HHS-HCC) [facility] Diagnosis Third trimester (HHS-HCC) state, incidental 35 weeks gestation of (HHS-HCC) induced hypertension, antepartum (HHS-HCC) Transient hypertension of , antepartum documented in this encounter [facility]* Diagnosis Third trimester (HHS-HCC) state, incidental 36 weeks gestation of (HHS-HCC) documented in this encounter [facility] HealthcareInstructionsNot on filedocumented in this encounterProMedipa Health SystemInstructionsNot on filedocumented in this encounterProJoint [facility] SystemInstructionsNot on filedocumented in this encounterProMedipa Health SystemInstructionsNot on filedocumented in this encounterProRegional [facility] Summary Purpose Family History No Family History Records FoundNo Family History Records FoundNo Family History Records Found Advance Directives No Advanced Directives Records FoundNo Advanced Directives Records FoundNo Advanced Directives Records Found Additional Source Comments INFORMATION SOURCE (unrecogn ized section and content) DATE CREATED AUTHOR [facility]/18/2023 [facility] DATE CREATED AUTHOR AUTHOR'S ORGANIZ ATION 04/20/2025 [facility] DATE CREATED AUTHOR AUTHOR'S ORGANIZ ATION 05/27/2025 [facility] Specialists EPIC Reason for Visit (unrecogniz ed section and content) Reason Comments Amenorrhea Reason Comments Routine Visit Reason Comments Gestational Diabetes Specialty Diagnoses / Procedures Referred By Contshazia t Referred To Contact Maternal and Medicine Diagnoses Encounter for diabetes education Nolan Cortes, DO [address] [place] [address] Phone: tel: fax: Maternal- Medicine at [facility] [address] [place] [address] Phone: tel: fax: Referral ID Status Reason Start Date Expiration Date Visits Requested Visits Authorized [id number] Pending Review Specialty Services Required 02/03/2025 02/03/2026 1 1 Reason Comments Med Start-GDM Care Teams (unrecognized sec tion and content) Complaint Adjuster Relationship Specialty Start Date End Date Melony Connor MD PCP - General Pediatrics 06/23/18 Complaint Adjuster Relationship Specialty Start Date End Date Melony Connor MD PCP - General Pediatrics 06/23/18 Complaint Adjuster Relationship Specialty Start Date End Date Melony Connor MD PCP - General Pediatrics 06/23/18 Complaint Adjuster Relationship Specialty Start Date End Date Melony Connor MD PCP - General Pediatrics 06/23/18 Complaint Adjuster Relationship Specialty Start Date End Date Melony Connor MD PCP - General Pediatrics 06/23/18 Complaint Adjuster Relationship Specialty Start Date End Date Melony Connor MD PCP - General Pediatrics 06/23/18 Complaint Adjuster Relationship Specialty Start Date End Date Melony Connor MD PCP - General Pediatrics 06/23/18 FOR RECORDS PERTAINING TO PATIENTS WHO ARE [...] BE BASED ON THE PRIMARY CLINICAL RECORDS. [facility]. provides no warranty or guarantee of the accuracy or completeness of information in this document.
== END 2025-05-31 22:35 | disposition home or self-care (01) ==
LOC: LAB 22:34
PROVIDERS: Visit Provider Physician Assistant
DX: Z34.93 Encounter for supervision of normal pregnancy, unspecified, third trimester (principal); Z3A.36 36 weeks gestation of pregnancy
CPT/HCPCS: 87081

== ENCOUNTER 2025-06-02 15:40 | Inpatient (IN) | payer BC, SELFPAY ==
--- OUTSIDE RECORDS SUMMARY | 2025-05-24 08:40 | XMS_ITS | Encounter Summary ---
Author Organization [facility] Address [address] [facility] [address] Care Team Providers Care Physical Therapist Center Manager Name Role Phone Unavailable Primary Care Provider Unavailabl e Reason for Visit * Reason Comments Routine Visit Encounter Details Date Type Department Care Team ([facility] Contact Info) Description 05/24/2025 8:40 AM EDT Routine [facility] BCP OB [address] [facility] [place] [phone] Kristan Fish PA [address] [facility] [address] [place], [facility]11 Third trimester ([facility]); 35 weeks gestation of ([facility]); induced hypertension, antepartum ([facility]) Social History Tobacco Use Types Packs/Day [...] in obstetric context ([facility]) 04/18/2023 Exposure to cat feces 04/18/2023 Gestational diabetes ([facility]) 04/18/2023 Nausea 04/18/2023 History of delivery 02/24/2023 Resolved Ambulatory Problems Diagnosis Date Noted No Resolved Ambulatory Problems Past Medical History: Diagnosis Date Chronic hypertension affecting ([facility]) Exposure to cat feces, sequela Former smoker Herpes exposure History of miscarriage Morbid obesity with BMI of 40.0-44.9, adult ([facility]) HISTORY PAST MEDICAL HISTORY SOCIAL HISTORY Past Medical History: Diagnosis Date Chronic hypertension affecting ([facility]) Exposure to cat feces, sequela Former smoker Gestational diabetes ([facility]) Herpes exposure History of miscarriage Morbid obesity with BMI of 40.0-44.9, adult ([facility]) Social History Tobacco [...] ASSESSMENT & PLAN ICD-10-CM 1. Third trimester ([facility]) Z34.93 POCT urinalysis dipstick manually resulted 2. 35 weeks gestation of ([facility]) Z3A.35 3. induced hypertension, antepartum ([facility]) O13.9 CANCELED: Creatinine CANCELED: Protein, urine, [...] Care Team (Late st Contact Info) Description 06/07/2025 9:30 AM EDT Routine [facility] BCP OB [address] [facility] [place] [address] SebastianNolan lang, DO [address] [facility] [place] [address] documented as of this encounter Procedures Procedure Name Priority Date/Time Associated Diagnosis Comments POCT URINALYSIS DIPSTICK Routine 05/24/2025 9:13 AM EDT Third trimester ([facility]) documented in this encounter Results * (ABNORMAL) POCT urinalysis dipstick manually resulted (05/24/2025 9:13 AM EDT) Color, UA Yellow Clarity, UA Clear Glucose, UA Negative Negative - 1999(110) ++++ mg/dL Bilirubin, UA Trace Negative - [...] - Positive Urine 05/24/2025 9:13 AM EDT Kristan RUBIO POINT OF CARE TEST ENTER/EDIT OR DERABLES Final Result documented in this encounter Visit Diagnoses Diagnosis Third trimester ([facility]) state, incidental 35 weeks gestation of ([facility]) induced hypertension, antepartum ([facility]) Transient hypertension of , antepartum documented in this encounter
--- OUTSIDE RECORDS SUMMARY | 2025-05-31 10:50 | XMS_ITS | Encounter Summary ---
Author Organization [facility] Address [address] [facility] [place] [address] Care Team Providers Care Administrative Assistant Data Entry Name Role Phone Unavailable Primary Care Provider Unavailabl e Reason for Visit * Reason Comments Routine Visit Encounter Details Date Type Department Care Team ([facility] Contact Info) Description 05/31/2025 10:50 AM EDT Routine [facility] [address] [phone] Kristan Fish PA [address] [place], [facility]11 Third trimester ([facility]); 36 weeks gestation of ([facility]) Social History Tobacco Use Types Packs/Day [...] Sign Reading Time Taken Comments Blood Pressure 130/84 05/31/2025 11:04 AM EDT Pulse - - Temperature - - Respiratory Rate - - Oxygen Saturation - - Inhaled Oxygen Concentration - - Weight 143 kg (316 lb) 05/31/2025 11:04 AM EDT Height - - Body Mass Index 49.49 09/09/2023 1:05 PM EDT documented in this encounter Progress Notes * JOANNE Hernandez - 05/31/2025 10:50 AM EDT Reason for Appointment: Patient [...] Noted Benign essential hypertension in obstetric context ([facility]) 04/18/2023 Exposure to cat feces 04/18/2023 Gestational diabetes ([facility]) 04/18/2023 Nausea 04/18/2023 History of delivery 02/24/2023 Resolved Ambulatory Problems Diagnosis Date Noted No Resolved Ambulatory Problems Past Medical History: Diagnosis Date Chronic hypertension affecting ([facility]) Exposure to cat feces, sequela Former smoker Herpes exposure History of miscarriage Morbid obesity with BMI of 40.0-44.9, adult ([facility]) HISTORY PAST MEDICAL HISTORY SOCIAL HISTORY Past Medical History: Diagnosis Date Chronic hypertension affecting ([facility]) Exposure to cat feces, sequela Former smoker Gestational diabetes ([facility]) Herpes exposure History of miscarriage Morbid obesity with BMI of 40.0-44.9, adult ([facility]) Social History Tobacco Use Smoking status: Former [...] reviewed. Vitals: Estimated body mass index is 49.49 kg/m?? as calculated from the following: Height as of 09/09/23: 5' 7 . Weight as of this encounter: 316 lb. BP: 130/84 Patient's last menstrual period was 09/17/2024. ASSESSMENT & PLAN ICD-10-CM 1. Third trimester ([facility]) Z34.93 POCT urinalysis dipstick manually resulted CULTURE, GROUP B STREP WITH SUSCEPTIBLITY CULTURE, GROUP B STREP WITH SUSCEPTIBLITY 2. 36 weeks gestation of ([facility]) Z3A.36 Return OB: Patient presents today for a routine obstetrics appointment. Patient is currently 36w4d . Patient states she is doing well but has complaints of being tired due to current . Patient has verbalizes frequent movement. labor precautions was discussed/given and patient was instructed to perform kick counts three times a day. Orders Placed This Encounter Procedures CULTURE, GROUP B STREP WITH SUSCEPTIBLITY POCT urinalysis dipstick manually resulted Follow Up: Patient is to return to office in 1 week for routine OB appointment. Documented by JOANNE Hernandez on behalf of: JOANNE Hernandez documented in this encounter Plan of Treatment Upcoming Encounters Date Type Department Care Team (Late st Contact Info) Description 06/07/2025 9:30 AM EDT Routine [facility] [address] [phone] Nolan Cortes, DO [address] [place] [address] Scheduled Orders Name Type Priority Associated Diagnoses Orde r Schedule CULTURE, GROUP B STREP WITH SUSCEPTIBLITY Lab Routine Third trimester ([facility]) Expected: 05/31/2025, Expires: 05/31/2026 documented as of this encounter Procedures Procedure Name Priority Date/Time Associated Diagnosis Comments POCT URINALYSIS DIPSTICK Routine 05/31/2025 11:08 AM EDT Third trimester ([facility]) documented in this encounter Results * (ABNORMAL) POCT urinalysis dipstick manually resulted (05/31/2025 11:08 AM EDT) Color, UA Yellow Clarity, UA Clear Glucose, UA Negative Negative - 2000(110) ++++ mg/dL Bilirubin, UA Negative Negative - 4(70) +++ mg/dL Ketones, UA Positive Negative - 160(16) ++++ mg/dL Comment:80mg/dL Spec Grav, UA 1.015 1 - 1.03 Blood, UA Positive Negative - 50 Eliceo/mcL Comment:Trace pH, UA 7.0 5 - 9 Protein, UA Positive Negative - 2000(20) ++++ mg/dL Comment:30mg/dL Urobilinogen, UA 0.2 0.2 - 12 mg/dL Leukocytes, UA Positive Negative - 500+++ Danielle/mcL Comment:small Nitrite, UA Negative Negative - Positive Urine 05/31/2025 11:0 8 AM EDT Kristan RUBIO POINT OF CARE TEST ENTER/EDIT OR DERABLES Final Result documented in this encounter Visit Diagnoses Diagnosis Third trimester ([facility]) state, incidental 36 weeks gestation of ([facility]) documented in this encounter
[2025-06-02] VITALS (48 sets, daily range): BP systolic 112–179; BP diastolic 60–113; PULSE 79–136; TEMP 36.1–37.1
--- OUTSIDE RECORDS SUMMARY | 2025-06-02 09:30 | XMS_ITS | Encounter Summary ---
Author Organization [facility] Address [address] [place] [address] Care Team Providers Care Screw Machine Hand Name Role Phone Unavailable Primary Care Provider Unavailabl e Encounter Details Date Type Department Care Team (Late Contact Info) Description 12/08/2024 Abstract [facility] BCP OB [address] [place] [address] Nolan Cortes DO [address], [facility] [...] Department Care Team (Late Contact Info) Description 06/07/2025 9:30 AM EDT Routine [facility] B[facility] OB [address] [place] [address] Nolan Cortes DO [address] [place] [address] documented as of this encounter Visit Diagnoses Not on filedocumented in this encounter
--- OUTSIDE RECORDS SUMMARY | 2025-06-02 09:30 | XMS_ITS | Encounter Summary ---
Author Organization [facility] Address [address] [place] [address] Care Team Providers Care Customer Experience Leader Name Role Phone Unavailable Primary Care Provider Unavailabl e Encounter Details Date Type Department Care Team (Late Contact Info) Description 07/04/2023 Abstract [facility] OB [address] [place] [address] Nolan Cortes, DO [address], [facility]11 Social History Tobacco Use [...] Description 06/07/2025 9:30 AM EDT Routine [facility] OB [address] [facility] [facility] [address] Nolan Cortes, DO [address], [place] [address] documented as of this encounter Visit Diagnoses Not on filedocumented in this encounter
--- OUTSIDE RECORDS SUMMARY | 2025-06-02 09:30 | XMS_ITS | Encounter Summary ---
Author Organization [facility] Address [address] [place] [address] Care Team Providers Care Software Project Lead Name Role Phone Unavailable Primary Care Provider Unavailabl e Encounter Details Date Type Department Care Team (Late Contact Info) Description 12/02/2024 Abstract [facility] BCP OB [address] [place] [address] Nolan Cortes DO [address], [facility] Social [...] [address] Nolan Cortes DO [address] [place] [address] documented as of this encounter Visit Diagnoses Not on filedocumented in this encounter
--- OUTSIDE RECORDS SUMMARY | 2025-06-02 09:31 | XMS_ITS | Encounter Summary ---
Author Organization [facility] Address [address] [place] [address] Care Team Providers Care Correctional Agency Director Name Role Phone Unavailable Primary Care Provider Unavailabl e Encounter Details Date Type Department Care Team (Late Contact Info) Description 04/06/2025 Abstract [facility] BCP OB [address] [place] [address] Nolan Cortes DO [address], [facility]11 Social History Tobacco Use Types Packs/Day [...] [address] Nolan Cortes DO [address] [place] [address] documented as of this encounter Visit Diagnoses Not on filedocumented in this encounter
--- OUTSIDE RECORDS SUMMARY | 2025-06-02 09:31 | XMS_ITS | Encounter Summary ---
Demographics Address [address] [place] [address] Mobile Phone Home Phone Email Address Email Address Preferred Language Greek Marital Status Pentecostal Affiliation Unknown Race White Ethnic Group Not or Lati no Author Organization [facility] Convio tem Address [id number] [address] [place] [address] Support Name Relationship Address Phone Dariusz Purvis Emergency Contact [address] [place] [address] Sravani Villasenor Personal Relationship [address] [place] [address] Laura Cope Personal Relationship Unknown [phone] Care Team Providers Care University Services Program Associate Name Role Phone Eli Azul MD Primary Care Provider + Encounter Details Date Type Department Care Team (Late st Contact Info) Description 05/24/2025 Telephone Maternal- Medicine at [facility] [address] [place] [phone] Rufina Hurd CMA Social History Tobacco Use [...] Hurd CMA - 05/24/2025 8:37 AM EDT MACHINE TOOL ELECTRICIAN CALLED PATIENT. NO ANSWER. LEFT VM ASKING PATIENT TO EMAIL US HER BLOOD GLUCOSE LOGS SO THATTHEY CAN BE REVIEWED BY OUR DIABETES TEAM. documented in this encounter Plan of Treatment Upcoming Encounters Date Type Department Care Team (Late st Contact Info) Description 06/02/2025 9:30 AM EDT Telemedicine Maternal- Medicine at [facility] [address] [place] [address] Iman Hall, SAUSAGE GRINDER-PEER EDUCATOR [address] [place] [address] Arrived documented as of this encounter Visit Diagnoses Not on filedocumented in this encounter Care Teams University Services Program Associate Relationship Specialty Start Date End Date Eli Azul MD PCP - General Pediatrics 06/23/18 documented as of this encounter
--- OUTSIDE RECORDS SUMMARY | 2025-06-02 09:31 | XMS_ITS | Encounter Summary ---
Author Organization [facility] Address [address] [place] [address] Care Team Providers Care Allergy Specialist Name Role Phone Unavailable Primary Care Provider Unavailabl e Encounter Details Date Type Department Care Team (Late Contact Info) Description 01/24/2025 Abstract [facility] BCP OB [address] [place] [address] Nolan Cortes DO [address], [facility] [...] Routine [facility] BCP OB [address] [place] [address] Nolan Cortes DO [address] [place] [address] documented as of this encounter Visit Diagnoses Not on filedocumented in this encounter
--- OUTSIDE RECORDS SUMMARY | 2025-06-02 09:31 | XMS_ITS | Encounter Summary ---
Author Organization [facility] Address [address] [place] [address] Care Team Providers Care Show Card Writer Name Role Phone Unavailable Primary Care Provider Unavailabl e Encounter Details Date Type Department Care Team (Late Contact Info) Description 05/24/2025 Clinisync Result Encounter [facility] External Department Unsolicited Thomas Cortes, DO [address], [place] [phone] Social History Tobacco Use Types Packs/Day Years [...] [facility] BCP OB [address] [place] [address] Thomas Cortes, DO [address], [place] [id number] documented as of this encounter Procedures Procedure Name Priority Date/Time Associated Diagnosis Comments US OB BPP W NON-STRESS 05/24/2025 6:59 AM EDT documented in this encounter Results * US OB BPP W NON-STRESS (05/24/2025 6:59 AM EDT) Anatomical Region Laterality Modality Other 05/24/2025 6:59 AM EDT Narrative 05/24/2025 7:02 [place] [address] Ultrasound Report Signed Patient: KIRA PURVIS MR#: [id number] : 1990 Acct:[id number] Age/Sex: 34 / F ADM Date: 05/23/25 Loc: US Attending Dr: Thomas Cortes D.O. Ordering Physician: Thomas Cortes D.O. Date of Service: 05/23/25 Procedure(s): US OB BPP w non-stress Accession Number(s): [id number] cc: Thomas Cortes D.O.; Physician,Non-Staff Nikky The [address] [address] Patient Name: KIRA PURVIS MRN: [id number] date: 1990 Sex: F Assigned Patient Location: [facility] Current Patient Location: Accession/Order Number: [id number] Exam Date: 05/24/2025 06:57 Report Date: 05/24/2025 [...] Peña M.D. 05/24/2025 6:59 AM Dictation Location: [place] [address] Electronically authenticated by: [id number] Y Date: 05/24/2025 06:59 Dictated By: Grace Peña M.D. Signed By: 05/24/2502 DD/ TD/TT: Foreclosure Field Inspector: Procedure Note Radiology, Radiologist, MD - 05/24/2025 [place] [address] Ultrasound Report Signed Patient: KIRA PURVIS LMR#: [id number] : 1990Acct:[id number] Age/Sex: 34 / FADM Date: 05/23/25 Loc: US Attending Dr: Thomas Cortes D.O. Ordering Physician: Thomas Cotres D.O. Date of Service: 05/23/25 Procedure(s): US OB BPP w non-stress Accession Number(s): [id number] cc: Thomas Cortes D.O.; Physician,Non-Staff Nikky The [place] [address] Patient Name: KIRA PURVIS MRN: [facility]:[id number] date: 1990 Sex: F Assigned Patient Location: [facility] Current Patient Location: Accession/Order Number: [id number] Exam Date: 05/24/2025 06:57 Report Date: 05/24/2025 [...] is in upper normal range. Total score: 8 US/US OB BPP w non-stress IMPRESSION: NORMAL BIOPHYSICAL PROFILE Impression dictated by: Grace Peña M.D. 05/24/2025 6:59 AM Dictation Location: [place] [address] Electronically authenticated by: [id number] Y Date: 506:59 Dictated By: Grace Peña M.D. Signed By:05/24/25 0702 DD/ 0659 TD/TT: Foreclosure Field Inspector: us Thomas Cortes DO [facility] Final Result documented in this encounter Visit Diagnoses Not on filedocumented in this encounter
--- OUTSIDE RECORDS SUMMARY | 2025-06-02 09:31 | XMS_ITS | Encounter Summary ---
Author Organization [facility] Address [address] [place] [address] Care Team Providers Care Talent Advisor Name Role Phone Unavailable Primary Care Provider Unavailabl e Encounter Details Date Type Department Care Team (Late Contact Info) Description 05/23/2025 Abstract [facility] BCP OB [address] [place] [address] Nolan Cortes DO [address], [...] Routine [facility] BCP OB [address] [place] [address] Nolan Cortes DO [address] [place] [address] documented as of this encounter Visit Diagnoses Not on filedocumented in this encounter
--- OUTSIDE RECORDS SUMMARY | 2025-06-02 09:31 | XMS_ITS | Encounter Summary ---
Author Organization [facility] Address [address] [place] [address] Care Team Providers Care Account Services Analyst Name Role Phone Unavailable Primary Care Provider Unavailabl e Encounter Details Date Type Department Care Team (Late Contact Info) Description 08/21/2023 Abstract [facility] OB [address] [place] [address] Nolan Cortes, [facility] [address], [facility] Social [...] Routine N[facility] BCP OB [address] [place] [address] Nolan Cortes, DO [address], [facility] documented as of this encounter Visit Diagnoses Not on filedocumented in this encounter
--- OUTSIDE RECORDS SUMMARY | 2025-06-02 09:31 | XMS_ITS | Encounter Summary ---
Author Organization [facility] Address [address] [place] [address] Care Team Providers Care Military Technician Name Role Phone Unavailable Primary Care Provider Unavailabl e Encounter Details Date Type Department Care Team (Late Contact Info) Description 06/11/2023 Abstract NOM[facility] [address] [place] [address] Kristan Fish PA [address] [place] [address] [address] [place], [facility]11 Social History Tobacco Use Types Packs/Day [...] Description 06/07/2025 9:30 AM EDT Routine NOMS [address] [place] [address] Nolan Cortes DO [address] [place] [address] Dr [address] [place], [facility]11 documented as of this encounter Visit Diagnoses Not on filedocumented in this encounter
--- OUTSIDE RECORDS SUMMARY | 2025-06-02 09:31 | XMS_ITS | Encounter Summary ---
Author Organization [facility] Address [address] [place] [address] Care Team Providers Care Manager Testing Name Role Phone Unavailable Primary Care Provider Unavailabl e Encounter Details Date Type Department Care Team (Late Contact Info) Description 08/21/2023 Abstract [facility] OB [address] [place] [address] Nolan Cortes, [facility] [address], [facility]11 Social History [...] EDT Routine N[facility] BCP OB [address] [place] [address] Nolan Cortes, DO [address], [facility]11 documented as of this encounter Visit Diagnoses Not on filedocumented in this encounter
--- OUTSIDE RECORDS SUMMARY | 2025-06-02 09:31 | XMS_ITS | Encounter Summary ---
Author Organization [facility] Address [address] [place] [address] Care Team Providers Care Wood Lather Name Role Phone Unavailable Primary Care Provider Unavailabl e Encounter Details Date Type Department Care Team (Late Contact Info) Description 04/24/2023 Abstract [facility] OB [address] [place] [address] Nolan Cortes, [facility] [address], [facility]11 Social History [...] Routine [facility] BCP OB [address] [place] [address] Nolan Cortes, DO [address], [facility]11 documented as of this encounter Visit Diagnoses Not on filedocumented in this encounter
--- OUTSIDE RECORDS SUMMARY | 2025-06-02 09:31 | XMS_ITS | Encounter Summary ---
Author Organization [facility] Address [address] [place] [address] Care Team Providers Care Coal Deliverer Name Role Phone Unavailable Primary Care Provider Unavailabl e Encounter Details Date Type Department Care Team ([facility] [address] Contact Info) Description 07/18/2023 Clinisync Result Encounter N[facility] External Department Unsolicited Thomas Cortes, [facility] [place], [place] [id number] Social History Tobacco Use Types Packs/Day Years [...] Upcoming Encounters Date Type Department Care Team ([facility] [address] Contact Info) Description 06/07/2025 9:30 AM EDT Routine [facility] BCP OB [address] [place] [id number] Thomas Cortes DO [facility] [place] [address] documented as of this encounter Procedures Procedure Name Priority Date/Time Associated Diagnosis Comments US OB BPP W NON-STRESS 07/18/2023 3:07 PM EDT documented in this encounter Results * US OB BPP W NON-STRESS (07/18/2023 3:07 PM EDT) Anatomical Region Laterality Modality Other 07/18/2023 3:07 PM EDT Narrative 07/18/2023 3:07 [place] [address] Ultrasound Report Signed Patient: KIRA PURVIS MR#: [id number] 06 : 1990 Acct:[id number] Age/Sex: 32 / F ADM Date: 07/17/23 Loc: US Attending Dr: Thomas Cortes D.O. Ordering Physician: Thomas Cortes D.O. Date of Service: 07/17/23 Procedure(s): US OB BPP w non-stress Accession Number(s): [id number] cc: Thomas Cortes D.O.; Physician,Non-Staff Maryjo.[place] [address] Patient Name: KIRA PURVIS MRN: [facility]:[id number] date: 1990 Sex: F Assigned Patient Location: [facility] Current Patient Location: Accession/Order Number: [id number] Exam Date: 07/17/2023 16:00 Report Date: 07/18/2023 [...] M.D. Signed By: 07/18/231509 DD/ 06 TD/TT: Preschool Director: Procedure Note Radiology, Radiologist, - 08/01/2023 [place] [address] Ultrasound Report Signed Patient: KIRA PURVIS LMR#: [id number] 06 : 1990Acct:[id number] Age/Sex: 32 / FADM Date: 07/17/23 Loc: US Attending Dr: Thomas Cortes D.O. Ordering Physician: Thomas Cortes D.O. Date of Service: 07/17/23 Procedure(s): US OB BPP w non-stress Accession Number(s): [id number] cc: Thomas Cortes D.O.; Physician,Non-Staff [place]ky [place] [address] Patient Name: KIRA PURVIS MRN: [id number] date: 1990 Sex: F Assigned Patient Location: [facility] Current Patient Location: Accession/Order Number: [id number] Exam Date: 07/17/2023 16:00 Report Date: 07/18/2023 [...] Dillon M.D. Signed By:07/18/231509 DD/ 06 TD/TT: Preschool Director: us hTomas Cortes DO [facility] Final Result documented in this encounter Visit Diagnoses Not on filedocumented in this encounter
--- OUTSIDE RECORDS SUMMARY | 2025-06-02 09:31 | XMS_ITS | Encounter Summary ---
Author Organization [facility] Address [address] [place] [place] [address] Care Team Providers Care Manager Storage Name Role Phone Unavailable Primary Care Provider Unavailabl e Encounter Details Date Type Department Care Team (Late Contact Info) Description 03/26/2024 Orders Only [facility] [address] [place] [address] Bertha Quevedo LPN [address] [place] [address] Social History Tobacco Use Types Packs/Day Years [...] Description 06/07/2025 9:30 AM EDT Routine [facility] OB [address] [place] [address] Nolan Cortes DO [address] [place] [address] documented as of this encounter Procedures [...]
--- OUTSIDE RECORDS SUMMARY | 2025-06-02 09:31 | XMS_ITS | Encounter Summary ---
Author Organization [facility] Address [address] [place] [address] Care Team Providers Care Chief Operator Synthesis Name Role Phone Unavailable Primary Care Provider Unavailabl e Encounter Details Date Type Department Care Team (Late Contact Info) Description 04/25/2023 Abstract [facility] OB [address] [place] [address] Nolan Cortes, [facility] [place], [facility]11 Social History Tobacco Use Types [...] [facility] BCP OB [address] [place] [address] Nolan Cortes, DO [address] [place], [facility]11 documented as of this encounter Visit Diagnoses Not on filedocumented in this encounter
--- OUTSIDE RECORDS SUMMARY | 2025-06-02 09:31 | XMS_ITS | Encounter Summary ---
Author Organization [facility] Address [address] [place] [address] Care Team Providers Care Business Intelligence Manager Name Role Phone Unavailable Primary Care Provider Unavailabl e Encounter Details Date Type Department Care Team (Late Contact Info) Description 03/07/2025 Abstract [facility] BCP OB [address] [place] [address] Nolan Cortes DO [address] [place], [facility]11 Social History Tobacco [...] Routine [facility] BCP OB [address] [place] [address] Nolan Cortes DO [address] [place] [address] documented as of this encounter Visit Diagnoses Not on filedocumented in this encounter
--- OUTSIDE RECORDS SUMMARY | 2025-06-02 09:31 | XMS_ITS | Clinical Summary ---
Demographics Address [address] [place] [address] Mobile Phone Home Phone Email Address Email Address Preferred Language Upper Sorbian Marital Status Christian Affiliation Unknown Race White Ethnic Group Not or Lati no Author Organization [employer] tem Address [id number] [address] [place] [address] Support Name Relationship Address Phone Dariusz Purvis Emergency Contact [address] [place] [address] Sravani Villasenor Personal Relationship [address] [place] [address] Laura Cope Personal Relationship Unknown [phone] Care Team Providers Care Laundry Route Driver Name Role Phone Eli Azul MD [...] Encounters Date Type Department Care Team Description 06/02/2025 Travel 05/24/2025 Telephone Maternal- Medicine at [facility] [address] [place] [address] Rufina Hurd CMA 04/29/2025 Telephone Maternal- Medicine at [place] [address] [place] [address] Rufina Hurd, TAINA 04/19/2025 10:30 AM EDT Telemedicine Maternal- Medicine at [facility] [address] [place] [address] Kenya Acosta, PA-C Gestational diabetes mellitus (GDM) in second trimester controlled on oral hypoglycemic drug (Primary Dx) 04/19/2025 Travel 04/19/2025 Telephone Maternal- Medicine at [facility] [address] [place] [address] Rufina Hurd, BAKER TEST 04/01/2025 Telephone Maternal- Medicine at [facility] [address] [place] [address] Violet Lopez RN 03/23/2025 10:30 AM EDT Telemedicine Maternal- Medicine at [facility] [address] [place] [address] Iman Hall, GENERAL STUDIES PROGRAM CHAIR-IRONER OR PRESSER Gestational diabetes mellitus (GDM) in second trimester controlled on oral hypoglycemic drug 03/23/2025 Travel 03/23/2025 Telephone Maternal- Medicine at [place] [address] [place] [address] Rufina Hurd, [facility] 03/16/2025 Telephone Maternal- Medicine at [facility] [address] [place] [address] Violet Lopez RN 03/15/2025 Orders Only Maternal- Medicine at [facility] [address] [place] [address] Rufina Hurd, [facility] 03/08/2025 1:00 PM EDT Office Visit Maternal- Medicine at [facility] [address] [place] [address] Kenya Acosta, PASalomeC Gestational diabetes mellitus (GDM) in second trimester controlled on oral hypoglycemic drug (Primary Dx) 03/08/2025 Travel 03/08/2025 Telephone Maternal- Medicine at [facility] [address] [place] [address] Rufina Hurd, BAKER TEST 03/04/2025 Telephone Maternal- Medicine at [facility] [address] [place] [address] Shima Renee, URIEL from Last 3 Months Immunizations Immunization Administration [...] 9:30 AM EDT Telemedicine Maternal- Medicine at [facility] [address] [place] [address] Iman Hall, GENERAL STUDIES PROGRAM CHAIR-IRONER OR PRESSER [address] [place] [address] Arrived Health Maintenance Due Date Last Done Comments [...] TRANSCRIBED RESULTS from Last 3 Months Insurance On license of [facility]/[address] [address] ANTH Care Teams Laundry Route Driver Relationship Specialty Start Date End Date Eli Azul MD PCP - General Pediatrics 06/23/18
--- OUTSIDE RECORDS SUMMARY | 2025-06-02 09:31 | XMS_ITS | Encounter Summary ---
Author Organization [facility] Address [address] [place] [place] [address] Care Team Providers Care Security Inspector Name Role Phone Unavailable Primary Care Provider Unavailabl e Encounter Details Date Type Department Care Team (Late st Contact Info) Description 04/28/2024 Clinisync Result Encounter [facility] External Department Unsolicited Thomas Cortes, [address] [place] [address] Social History Tobacco Use Types Packs/Day Years [...] AM EDT Routine [facility] BCP OB [address] [place] [address] Thomas Cortes[address] [place] [address] documented as of this encounter Procedures Procedure Name Priority Date/Time Associated Diagnosis Comments US PELVIS W/ TRANSVAGINAL 04/28/2024 1:16 PM EDT documented in this encounter Results * US PELVIS W/ TRANSVAGINAL (04/28/2024 1:16 PM EDT) Anatomical Region Laterality Modality Other 04/28/2024 1:16 PM EDT Narrative 04/28/2024 1:19 PM EDT [address] [address] Ultrasound Report Signed Patient: KIRA PURVIS MR#: [id number] : 1990 Acct:[id number] Age/Sex: 33 / F ADM Date: 04/27/24 Loc: US Attending Dr: Thomas Cortes D.O. Ordering Physician: Thomas Cortes D.O. Date of Service: 04/27/24 Procedure(s): US pelvis w/ transvaginal Accession Number(s): [id number] cc: Thomas Cortes D.O.; Physician,Non-Staff Nikky [address] [address] Patient Name: KIRA PURVIS MRN: [facility]:[id number] date: 1990 Sex: F Assigned Patient Location: US Current Patient Location: Accession/Order Number: [id number] Exam Date: 04/27/2024 14:00 Report Date: 04/28/2024 [...] Signed By: 04/28/24 1319 DD/ 1316 TD/TT: Dog Warden: Procedure Note Radiology, Radiologist, - 04/28/2024 [place] [address] Ultrasound Report Signed Patient: KIRA PURVIS LMR#: [id number] : 1990Acct:[id number] Age/Sex: 33 / FADM Date: 04/27/24 Loc: US Attending Dr: Thomas Cortes D.O. Ordering Physician: Thomas Cortes D.O. Date of Service: 04/27/24 Procedure(s): US pelvis w/ transvaginal Accession Number(s): [id number] cc: Thomas Cortes D.O.; Physician,Non-Staff Nikky [address] [place] [id number] Patient Name: KIRA PURVIS MRN: [id number] date: 1990 Sex: F Assigned Patient Location: US Current Patient Location: Accession/Order Number: [id number] Exam Date: 04/27/2024 14:00 Report Date: 04/28/2024 [...] M.D. Signed By:04/28/24 1319 DD/ 1316 TD/TT: Dog Warden: us Thomas Sebastian DO [facility] Final Result documented in this encounter Visit Diagnoses Not on filedocumented in this encounter
--- OUTSIDE RECORDS SUMMARY | 2025-06-02 09:31 | XMS_ITS | Encounter Summary ---
Author Organization [facility] Address [address] [place] [address] Care Team Providers Care Eating Disorder Psychologist Name Role Phone Unavailable Primary Care Provider Unavailabl e Encounter Details Date Type Department Care Team (Late Contact Info) Description 04/22/2023 Abstract [facility] OB [address] [place] [address] Nolan Cortes, [facility] [place], [facility]11 Social History Tobacco Use Types [...] [facility] BCP OB [address] [place] [address] Nolan Cortes, DO [address] [place], [facility] documented as of this encounter Visit Diagnoses Not on filedocumented in this encounter
--- OUTSIDE RECORDS SUMMARY | 2025-06-02 09:31 | XMS_ITS | Encounter Summary ---
Author Organization [facility] Address [address] [place] [address] Care Team Providers Care Bat Person Name Role Phone Unavailable Primary Care Provider Unavailabl e Encounter Details Date Type Department Care Team (Late st Contact Info) Description 04/21/2023 Abstract [facility] OB [address] [facility] [place] [address] Nolan Cortes, DO [address] [place], [place] [...] Description 06/07/2025 9:30 AM EDT Routine [facility] [address] [facility] [place] [address] Nolan Cortes, DO [address] [place], [place] [address] documented as of this encounter Visit Diagnoses Not on filedocumented in this encounter
--- OUTSIDE RECORDS SUMMARY | 2025-06-02 09:31 | XMS_ITS | Encounter Summary ---
Author Organization [facility] Address [address] [place] [address] Care Team Providers Care Supervisor Inventory Merchandising Name Role Phone Unavailable Primary Care Provider Unavailabl e Encounter Details Date Type Department Care Team (Late st Contact Info) Description 11/26/2024 Clinisync Result Encounter [facility] External Department Unsolicited Thomas Cortes, DO [address] [place] [address] Social History Tobacco Use Types Packs/Day [...] [facility] BCP OB [address] [place] [address] Thomas Cortes, DO [address] [place] [address] documented as of this encounter Procedures Procedure Name Priority Date/Time Associated Diagnosis Comments US OB TRANSVAGINAL 11/26/2024 9: 35 AM EST documented in this encounter Results * US OB TRANSVAGINAL (11/26/2024 9:35 AM EST) Anatomical Region Laterality Modality Other 11/26/2024 9:35 AM EST Narrative 11/26/2024 9:37 AM EST [address] [address] Ultrasound Report Signed Patient: KIRA PURVIS MR#: [id number] : 1990 Acct:[id number] Age/Sex: 34 / F ADM Date: 11/26/24 Loc: US Attending Dr: Thomas Cortes D.O. Ordering Physician: Thomas Cortes D.O. Date of Service: 11/26/24 Procedure(s): US OB transvaginal Accession Number(s): [id number] cc: Thomas Cortes D.O.; Physician,Non-Staff Nikky [address] [address] Patient Name: KIRA PURVIS MRN: [id number] date: 1990 Sex: F Assigned Patient Location: US Current Patient Location: US Accession/Order Number: [id number] Exam Date: 11/26/2024 08:36 Report Date: 11/26/2024 [...] Dillon M.D. Signed By: 11/26/2437 DD/ TD/TT: Final Operations Technician: Procedure Note Radiology, Radiologist, - 11/26/2024 [place] [address] Ultrasound Report Signed Patient: KIRA PURVIS LMR#: [id number] : 1990Acct:[id number] Age/Sex: 34 / FADM Date: 11/26/24 Loc: US Attending Dr: Thomas Cortes D.O. Ordering Physician: Thomas Cortes D.O. Date of Service: 11/26/24 Procedure(s): US OB transvaginal Accession Number(s): [id number] cc: Thomas Cortes D.O.; Physician,Non-Staff Nikky [address] [place] [id number] Patient Name: KIRA PURVIS MRN: [id number] date: 1990 Sex: F Assigned Patient Location: US Current Patient Location: US Accession/Order Number: [id number] Exam Date: 11/26/2024 08:36 Report Date: 11/26/2024 [...] M.D. Signed By:11/26/24 0937 DD/ 0935 TD/TT: Final Operations Technician: us [facility] DO [facility] Final Result documented in this encounter Visit Diagnoses Not on filedocumented in this encounter
--- OUTSIDE RECORDS SUMMARY | 2025-06-02 09:31 | XMS_ITS | Encounter Summary ---
Author Organization [facility] Address [address] [place] [address] Care Team Providers Care Club Manager Name Role Phone Unavailable Primary Care Provider Unavailabl e Encounter Details Date Type Department Care Team (Late Contact Info) Description 01/27/2025 Abstract [facility] BCP OB [address] [place] [address] Nloan Cortes DO [address] [place], [place] [...]
--- OUTSIDE RECORDS SUMMARY | 2025-06-02 09:31 | XMS_ITS | Encounter Summary ---
Demographics Address [address] [place] [address] Mobile Phone Home Phone Email Address Email Address Preferred Language Arabic Marital Status Rastafari Affiliation Unknown Race White Ethnic Group Not or Lati no Author Organization [facility] Address [id number] [address] [place] [address] Support Name Relationship Address Phone Dariusz Purvis Emergency Contact [address] [place] [address] Sravani Villasenor Personal Relationship [address] [place] [address] Laura Cope Personal Relationship Unknown [phone] Care Team Providers Care Bulk Mail Technician Name Role Phone Eli Azul MD Primary Care Provider + Encounter Details Date Type Department Care Team (Late st Contact Info) Description 02/07/2025 Orders Only Maternal- Medicine at [facility] [address] [place] [address] Ref Prov, [place] [address] Social History Tobacco Use Types Packs/Day Years [...] 1:52 PM EST) Anatomical Region Laterality Modality OB-SALVAGE GRINDER Ultrasound us Not In System Ref Prov IMG US ORDERABLES Final R esult documented in this encounter Visit Diagnoses Not on filedocumented in this encounter Care Teams Bulk Mail Technician Relationship Specialty Start Date End Date Eli Azul MD PCP - General Pediatrics 06/23/18 documented as of this encounter
--- OUTSIDE RECORDS SUMMARY | 2025-06-02 09:31 | XMS_ITS | Clinical Summary ---
Author Organization [facility] Address [address] [place] [address] Care Team Providers Care Immigration Manager Name Role Phone Unavailable Primary Care Provider Unavailabl e Allergies No known active allergies Medications Alcohol Swabs (Alcohol Prep Pad) 70 % padsIndications: Gestational diabetes mellitus (GDM), antepartum, gestational diabetes method of control unspecified ([facility]),Elevat ed glucose tolerance test Apply 1 Pad topically Daily Use four times daily to check FSBS. 150 each 3 5 Active MV & Min w/FA-DHA ( Adult Gummy/DHA/FA) 0.4-25 MG chewable tablet Chew 1 each Daily 5 Active aspirin 81 MG EC tablet Take 81 mg by mouth Daily Active Blood Glucose Monitoring Suppl (Accu-Chek Guide Pa) w/Device kitIndications:G estational diabetes mellitus (GDM), antepartum, gestational diabetes method of control unspecified ([facility]),Elevat ed glucose tolerance test USE TO [...] n in obstetric context ([facility]) 04/18/2023 Exposure to cat feces 04/18/2023 Gestational diabetes ([facility]) 04/18/2023 Nausea 04/18/2023 History of delivery 02/24/2023 Estimated Date of Delivery Comme nts Yes 06/24/2025 Based on last me nstrual period of 09/17/2024 Encounters Date Type Department Care Team Description 05/31/2025 10:50 AM EDT Routine [facility] [address] [place] [address] Kristan Fish PA Third trimester ([facility]); 36 weeks gestation of ([facility]) 05/31/2025 Bamboo flowsheet [facility] OB [address] [facility] [place] [address] Kristan Fish PA 05/31/2025 Travel 05/30/2025 Clinisync Result Encounter NOMS External Department Unsolicited Thomas Cortes, DO 05/26/2025 Clinisync Result Encounter NOMS External Department Unsolicited Sandra Cortesy, DO 05/25/2025 Clinisync Result Encounter NOMS External Department Unsolicited Thomas Cortes, DO 05/24/2025 8:40 AM EDT Routine [facility] OB [address] [facility] [place] [address] Kristan Fish PA Third trimester ([facility]); 35 weeks gestation of ([facility]); induced hypertension, antepartum ([facility]) 05/24/2025 Clinisync Result Encounter NOMS External Department Unsolicited Thomas Cortes, DO 05/23/2025 Travel 05/23/2025 Telephone [facility] OB [address] [place] [address] Danay Ortega LPN 05/23/2025 Abstract [facility] OB [address] [place] [address] Thomas Cortes, DO 05/23/2025 Abstract [facility] OB [address] [place] [address] Thomas Cortes, DO 05/17/2025 11:40 AM EDT Routine [facility] OB [address] [place] [address] Thomas Cortes, DO Third trimester ([facility]); 34 weeks gestation of ([facility]); Gestational diabetes mellitus (GDM), antepartum, gestational diabetes method of control unspecified ([facility]) 05/17/2025 Bamboo flowsheet [facility]OM[facility] [address] [place] [address] Thomas Cortes, DO 05/16/2025 Clinisync Result Encounter NOMS External Department Unsolicited Thomas Cortes, DO 05/09/2025 Clinisync Result Encounter NOMS External Department Unsolicited Sandra Cortesy, DO 05/02/2025 10:50 AM EDT Routine NOM[facility] [address] [place] [address] Kristan Fish PA 32 weeks gestation of ([facility]); Third trimester ([facility]) 05/02/2025 Clinisync Result Encounter NOMS External Department Unsolicited Thomas Cortes, DO 05/02/2025 Bamboo flowsheet NOM[facility] [address] [place] [address] Kristan Fish PA 04/25/2025 Clinisync Result Encounter NOMS External Department Unsolicited Thomas Cortes, DO 04/18/2025 1:00 PM EDT Routine NOM[facility] [address] [place] [address] Thomas Cortes, DO 30 weeks gestation of ([facility]); Third trimester ([facility]) 04/18/2025 Clinisync Result Encounter NOMS External Department Unsolicited Thomas Cortes, DO 04/18/2025 Bamboo flowsheet NOM[facility] [address] [place] [address] Thomas Cortes, DO 04/11/2025 Clinisync Result Encounter NOMS External Department Unsolicited Thomas Cortes, DO 04/11/2025 Travel 04/06/2025 Abstract [facility] [address] [place] [address] Thomas Cortes, 04/05/2025 1:50 PM EDT Routine NOM[facility] [address] [place] [address] [phone] Thomas Cortes, Third trimester ([facility]); 28 weeks gestation of ([facility]); Gestational diabetes mellitus (GDM), antepartum, gestational diabetes method of control unspecified ([facility]); H/O: hypertension 04/05/2025 Bamboo flowsheet NOM[facility] [address] [place] [address] Thomas Cortes, 03/14/2025 1:50 PM EDT Routine NOM[facility] [address] [place] [address] Thomas Cortes, Second trimester ([facility]); 25 weeks gestation of ([facility]) 03/14/2025 Bamboo flowsheet NOM[facility] [address] [place] [address] Thomas Cortes, 03/08/2025 Telephone [facility] [address] [place] [address] Suze Hendrix MA 03/07/2025 Abstract [facility] [address] [place] [address] Thomas Cortes, 03/07/2025 Clinisync Result Encounter NOMS [...] (316 lb) 05/31/2025 11:04 AM EDT Height 170.2 cm (5' 7 ) 09/09/2023 1:05 PM EDT Body Mass Index 49.49 09/09/2023 1:05 PM EDT Plan of Treatment Upcoming Encounters Date Type Department Care Team (Late st Contact Info) Description 06/07/2025 9:30 AM EDT Routine [facility] OB [address] [facility] [place] [address] Thomas Cortes, DO [address] [facility] [place] [address] Procedures Procedure Name Priority Date/Time Associated Diagnosis Comments POCT URINALYSIS DIPSTICK Routine 05/31/2025 11:08 AM EDT Third trimester ([facility]) US OB BPP W NON-STRESS 05/30/2025 3:41 PM EDT US OB BPP W NON-STRESS 05/26/2025 4:48 PM EDT US OB GROWTH 05/25/2025 9:12 AM EDT POCT URINALYSIS DIPSTICK Routine 05/24/2025 9:13 AM EDT Third trimester ([facility]) US OB BPP W NON-STRESS 05/24/2025 6:59 AM EDT US OB BPP W NON-STRESS 05/16/2025 11:00 PM EDT US OB BPP W NON-STRESS 05/09/2025 3:51 PM EDT US OB BPP W NON-STRESS 05/02/2025 4:30 PM EDT POCT URINALYSIS DIPSTICK Routine 05/02/2025 11:00 AM EDT 32 weeks gestation of ([facility]) Third trimester ([facility]) US OB BPP W NON-STRESS 04/25/2025 9:36 PM EDT US OB BPP W NON-STRESS 04/18/2025 4:07 PM EDT POCT URINALYSIS DIPSTICK Routine 04/18/2025 1:14 PM EDT 30 weeks gestation of ([facility]) Third trimester ([facility]) US OB BPP W NON-STRESS 04/11/2025 4:05 PM EDT POCT URINALYSIS DIPSTICK Routine 04/05/2025 2:19 PM EDT Third trimester ([facility]) US OB INCOMPLETE ANATOMY 03/07/2025 12:42 PM EDT from Last 3 Months Results * (ABNORMAL) POCT urinalysis dipstick manually resulted (05/31/2025 11:08 AM EDT) Only the most recent of5 resultswithin the time period is included. Color, UA Yellow Clarity, UA Clear Glucose, UA Negative Negative - 2000(110) ++++ mg/dL Bilirubin, UA Negative Negative - 4(70) +++ mg/dL Ketones, UA Positive Negative - 160(16) ++++ mg/dL Comment:80mg/dL Spec Grav, UA 1.015 1 - 1.03 Blood, UA Positive Negative - 50 Eliceo/mcL Comment:Trace pH, UA 7.0 5 - 9 Protein, UA Positive Negative - 1999(20) ++++ mg/dL Comment:30mg/dL Urobilinogen, UA 0.2 0.2 - 12 mg/dL Leukocytes, UA Positive Negative - 500+++ Danielle/mcL Comment:small Nitrite, UA Negative Negative - Positive Urine 05/31/2025 11:0 8 AM EDT Kristan RUBIO POINT OF CARE TEST ENTER/EDIT OR DERABLES Final Result * US OB BPP W NON-STRESS (05/30/2025 3:41 PM EDT) Only the most recent of9 resultswithin the time period is included. Anatomical Region Laterality Modality Other 05/30/2025 3:41 PM EDT Narrative 05/30/2025 3:44 [place] [address] Ultrasound Report Signed Patient: CHARLENE PURVIS MR#: [id number] : 1990 Acct:[id number] Age/Sex: 34 / F ADM Date: 05/30/25 Loc: [facility] 250-[address]: Thomas Cortes D.O. Ordering Physician: Thomas Cortes D.O. Date of Service: 05/30/25 Procedure(s): US OB BPP w non-stress Accession Number(s): [id number] cc: Thomas Cortes D.O.; Physician,Non-Staff M.D. [place] [id number] Patient Name: CHARLENE PURVIS MRN: [id number] date: 1990 Sex: F Assigned Patient Location: [facility] Current Patient Location: [facility] Accession/Order Number: [id number] Exam Date: 05/30/2025 15:40 Report Date: 05/30/2025 15:41 At the request of: THOMAS CORTES DO Procedure: US OB BPP w non-stress Biophysical profile. Reason for exam: Gestational diabetes COMPARISON: BPP 05/26/2025 TECHNIQUE: Transabdominal imaging of the gravid uterus was obtained. FINDINGS: The hearing specialist reports a BPP of 8 out of 8. BHAVANI is normal at 11 cm. heart rate 138 bpm. US/US OB BPP w non-stress IMPRESSION: BPP 8 out of 8. Impression dictated by: Jacinto Rivas Jr., D.O. 05/30/2025 3:41 PM Dictation Location: [place] [address] Electronically authenticated by: [id number] Y Date: 05/30/2025 15:41 Dictated By: Jacinto Rivas M.D. Signed By: 05/30/25 1544 DD/ 1541 TD/TT: Scrubber Machine Tender: Procedure Note Radiology, Radiologist, MD - 05/30/2025 [place] [address] Ultrasound Report Signed Patient: CHARLENE PURVIS R#: [id number] : 1990Acct:[id number] Age/Sex: 34 / FADM Date: 05/30/25 Loc: [facility] 250-[address]: Thomas Cortes D.O. Ordering Physician: Thomas Cortes D.O. Date of Service: 05/30/25 Procedure(s): US OB BPP w non-stress Accession Number(s): [id number] cc: Thomas Cortes D.O.; Physician,Non-Staff Nikky The [place] [id number] Patient Name: CHARLENE PURVIS MRN: [id number] date: 1990 Sex: F Assigned Patient Location: [facility] Current Patient Location: [facility] Accession/Order Number: [id number] Exam Date: 05/30/2025 15:40 Report Date: 05/30/2025 15:41 At the request of: THOMAS CORTES DO Procedure: US OB BPP w non-stress Biophysical profile. Reason for exam: Gestational diabetes COMPARISON: BPP 05/26/2025 TECHNIQUE: Transabdominal imaging of the gravid uterus was obtained. FINDINGS: The hearing specialist reports a BPP of 8 out of 8. BHAVANI is normal at11 cm. heart rate 138 bpm. US/US OB BPP w non-stress IMPRESSION: BPP 8 out of 8. Impression dictated by: Jacinto Rivas Jr., D.O. 05/30/2025 3:41 PM Dictation Location: [place] [address] Electronically authenticated by: [id number] Y Date: 5:41 Dictated By: Jacinto Rivas M.D. Signed By:05/30/25 1544 DD/ 1541 TD/TT: Scrubber Machine Tender: us Thomas Cortes DO [facility] Final Result * US OB GROWTH (05/25/2025 9:12 AM EDT) Anatomical Region Laterality Modality Other 05/25/2025 9:12 AM EDT Narrative 05/25/2025 9:15 [place] [address] Ultrasound Report Signed Patient: CHARLENE PURVIS MR#: [id number] : 1990 Acct:[id number] Age/Sex: 34 / F ADM Date: 05/16/25 Loc: US Attending Dr: Thomas Cortes D.O. Ordering Physician: Thomas Cortes D.O. Date of Service: 05/16/25 Procedure(s): US OB growth Accession Number(s): [id number] cc: Thomas Cortes D.O.; Physician,Non-Staff Nikky The [address] [address] Patient Name: CHARLENE PURVIS MRN: [id number] date: 1990 Sex: F Assigned Patient Location: US Current Patient Location: Accession/Order Number: [id number] Exam Date: 05/25/2025 09:01 Report Date: 05/25/2025 [...] Peña M.D. 05/25/2025 9:12 AM Dictation Location: [place] [address] Electronically authenticated by: [id number] Y Date: 05/25/2025 09:12 Dictated By: Grace Peña M.D. Signed By: 05/25/25914 DD/ 1 TD/TT: Scrubber Machine Tender: Procedure Note Radiology, Radiologist, MD - 05/25/2025 [place] [address] Ultrasound Report Signed Patient: CHARLENE PURVIS LMR#: [id number] : 1990Acct:[id number] Age/Sex: 34 / FADM Date: 05/16/25 Loc: US Attending Dr: Thomas Cortes D.O. Ordering Physician: Thomas Cortes D.O. Date of Service: 05/16/25 Procedure(s): US OB growth Accession Number(s): [id number] cc: Thomas Cortes D.O.; Physician,Non-Staff M.D. The [address] [address] Patient Name: CHARLENE PURVIS MRN: [facility]:[id number] date: 1990 Sex: F Assigned Patient Location: Current Patient Location: Accession/Order Number: [id number] Exam Date: 05/25/2025 09:01 Report Date: 05/25/2025 [...] Peña M.D. 05/25/2025 9:12 AM Dictation Location: [place] [address] Electronically authenticated by: [id number] Y Date: 509:12 Dictated By: Grace Peña M.D. Signed By:05/25/25 0915 DD/ 1 TD/TT: Scrubber Machine Tender: us Thomas Cortes DO [facility] Final Result * US OB INCOMPLETE ANATOMY (03/07/2025 12:42 PM EDT) Anatomical Region Laterality Modality Other 03/07/2025 12:4 2 PM EDT Narrative 03/07/2025 12:44 PM EDT [address] [address] Ultrasound Report Signed Patient: CHARLENE PURVIS MR#: [id number] : 1990 Acct:[id number] Age/Sex: 34 / F ADM Date: 03/05/25 Loc: US Attending Dr: Thomas Cortes D.O. Ordering Physician: Thomas Cortes D.O. Date of Service: 03/05/25 Procedure(s): US OB incomplete anatomy Accession Number(s): [id number] cc: Thomas Cortes D.O.; Physician,Non-Staff Nikky [address] [address] Patient Name: CHARLENE PURVIS MRN: [id number] date: 1990 Sex: F Assigned Patient Location: US Current Patient Location: Accession/Order Number: [id number] Exam Date: 03/07/2025 12:39 Report Date: 03/07/2025 [...] Jr., D.O. 03/07/2025 12:42 PM Dictation Location: [place] [address] Electronically authenticated by: [id number] Y Date: 03/07/2025 12:42 Dictated By: Jacinto Rivas M.D. Signed By: 03/07/25 1244 DD/ 1242 TD/TT: Scrubber Machine Tender: Procedure Note Radiology, Radiologist, MD - 03/07/[address] [address] Ultrasound Report Signed Patient: CHARLENE PURVIS LMR#: [id number] : 1990Acct:[id number] Age/Sex: 34 / FADM Date: 03/05/25 Loc: US Attending Dr: Thomas Cortes D.O. Ordering Physician: Thomas Cortes D.O. Date of Service: 03/05/25 Procedure(s): US OB incomplete anatomy Accession Number(s): [id number] cc: Thomas Cortes D.O.; Physician,Non-Staff Nikky The [address] [address] Patient Name: CHARLENE PURVIS MRN: [id number] date: 1990 Sex: F Assigned Patient Location: US Current Patient Location: Accession/Order Number: [id number] Exam Date: 03/07/2025 12:39 Report Date: 03/07/2025 [...] Jr., D.O. 03/07/2025 12:42 PM Dictation Location: [place] [address] Electronically authenticated by: [id number] Y Date: 2:42 Dictated By: Jacinto Rivas M.D. Signed By:03/07/25 1244 DD/ 1242 TD/TT: Scrubber Machine Tender: us Thomas Cortes DO [facility] Final Result from Last 3 Months Insurance
--- OUTSIDE RECORDS SUMMARY | 2025-06-02 09:31 | XMS_ITS | Encounter Summary ---
Author Organization [facility] Address [address] [place] [address] Care Team Providers Care Cytology Supervisor Name Role Phone Unavailable Primary Care Provider Unavailabl e Encounter Details Date Type Department Care Team (Late st Contact Info) Description 05/23/2025 Telephone [facility] [address] [place] [address] Danay Ortega LPN [address] [place] [address] Social History Tobacco Use Types [...] is [birth year]. You can reach me at [phone]. Over the weekend, I noticed that my [...] AM EDT Routine [facility] OB [address] [place] [address] Nolan Cortes, DO [address] [facility] [place] [address] documented as of this encounter Visit Diagnoses Not on filedocumented in this encounter
--- OUTSIDE RECORDS SUMMARY | 2025-06-02 09:31 | XMS_ITS | Encounter Summary ---
Demographics Address [address] [place] [address] Mobile Phone Home Phone Email Address Email Address Preferred Language Maori Marital Status Catholic Affiliation Unknown Race White Ethnic Group Not or Lati no Author Organization [facility] [employer]sely[employer] tem Address [id number] [address] [place] [address] Support Name Relationship Address Phone Dariusz Purvis Emergency Contact [address] [place] [address] Sravani Villasenor Personal Relationship [address] [place] [address] Laura Cope Personal Relationship Unknown Care Team Providers Care Manager Talent Acquisition Name Role Phone Eli Azul MD Primary Care Provider + Encounter Details Date Type Department Care Team (Late st Contact Info) Description 03/15/2025 Orders Only Maternal- Medicine at [facility] [address] [place] [phone] Rufina Hurd CMA Social History Tobacco Use [...] filedocumented in this encounter Care Teams Manager Talent Acquisition Relationship Specialty Start Date End Date Eli Azul MD PCP - General Pediatrics 06/23/18 documented as of this encounter
--- OUTSIDE RECORDS SUMMARY | 2025-06-02 09:31 | XMS_ITS | Encounter Summary ---
Author Organization [facility] Address [address] [place] [address] Care Team Providers Care Inside Account Representative Name Role Phone Unavailable Primary Care [...] AM EDT Routine [facility] OB [address] [facility] [place] [address] Nolan Cortes, DO [address] [facility] [place] [address] documented as of this encounter Visit Diagnoses Not on filedocumented in this encounter
--- OUTSIDE RECORDS SUMMARY | 2025-06-02 09:31 | XMS_ITS | Encounter Summary ---
Author Organization [facility] Address [address] [place] [address] Care Team Providers Care Bindery Helper Name Role Phone Unavailable Primary Care Provider Unavailabl e Encounter Details Date Type Department Care Team (Late Contact Info) Description 02/01/2025 Abstract [facility] B[facility] OB [address] [place] [address] Nolan Cortes DO [address] [place], [facility]11 Social History [...]
--- OUTSIDE RECORDS SUMMARY | 2025-06-02 09:31 | XMS_ITS | Encounter Summary ---
Author Organization [facility] Address [address] [place] [address] Care Team Providers Care Wardrobe Technician Name Role Phone Unavailable Primary Care Provider Unavailabl e Encounter Details Date Type Department Care Team (Late Contact Info) Description 05/23/2025 Abstract [facility] B[facility] OB [address] [place] [address] Nolan Cortes DO [address] [place], [facility]11 Social History Tobacco [...]
--- OUTSIDE RECORDS SUMMARY | 2025-06-02 09:31 | XMS_ITS | Encounter Summary ---
Author Organization [facility] Address [address] [place] [address] Care Team Providers Care Fireman Name Role Phone Unavailable Primary Care Provider Unavailabl e Encounter Details Date Type Department Care Team (Late Contact Info) Description 05/25/2025 Clinisync Result Encounter NOMS External Department Unsolicited Thomas Cortes, DO [address] [place], [place] [id number] Social History Tobacco Use Types Packs/Day Years [...] [facility] BCP OB [address] [place] [address] Thomas Cortes DO [address] [place], [place] [phone] documented as of this encounter Procedures Procedure Name Priority Date/Time Associated Diagnosis Comments US OB GROWTH 05/25/2025 9:12 AM EDT documented in this encounter Results * US OB GROWTH (05/25/2025 9:12 AM EDT) Anatomical Region Laterality Modality Other 05/25/2025 9:12 AM EDT Narrative 05/25/2025 9:15 [place] [address] Ultrasound Report Signed Patient: KIRA PURVIS MR#: [id number] : 1990 Acct:[id number] Age/Sex: 34 / F ADM Date: 05/16/25 Loc: US Attending Dr: Thomas Cortes D.O. Ordering Physician: Thomas Cortes D.O. Date of Service: 05/16/25 Procedure(s): US OB growth Accession Number(s): [id number] cc: Thomas Cortes D.O.; Physician,Non-Staff Nikky The [place] [address] Patient Name: KIRA PURVIS MRN: [id number] date: 1990 Sex: F Assigned Patient Location: US Current Patient Location: Accession/Order Number: [id number] Exam Date: 05/25/2025 09:01 Report Date: 05/25/2025 [...] Peña M.D. 05/25/2025 9:12 AM Dictation Location: [place] [address] Electronically authenticated by: [id number] Y Date: 05/25/2025 09:12 Dictated By: Grace Peña M.D. Signed By: 05/25/25914 DD/ 1 TD/TT: Brick Burner Head: Procedure Note Radiology, Radiologist, MD - 05/25/2025 [place] [address] Ultrasound Report Signed Patient: KIRA PURVIS LMR#: [id number] : 1990Acct:[id number] Age/Sex: 34 / FADM Date: 05/16/25 Loc: US Attending Dr: Thomas Cortes D.O. Ordering Physician: Thomas Cortes D.O. Date of Service: 05/16/25 Procedure(s): US OB growth Accession Number(s): [id number] cc: Thomas Cortes D.O.; Physician,Non-Staff Nikky The [place] [id number] Patient Name: KIRA PURVIS MRN: [facility]:[id number] date: 1990 Sex: F Assigned Patient Location: Current Patient Location: Accession/Order Number: [id number] Exam Date: 05/25/2025 09:01 Report Date: 05/25/2025 [...] Peña M.D. 05/25/2025 9:12 AM Dictation Location: [place] [address] Electronically authenticated by: [id number] Y Date: 509:12 Dictated By: Grace Peña M.D. Signed By:05/25/25 0915 DD/ 0912 TD/TT: Brick Burner Head: us Thomas Sebastian DO [facility] Final Result documented in this encounter Visit Diagnoses Not on filedocumented in this encounter
--- OUTSIDE RECORDS SUMMARY | 2025-06-02 09:31 | XMS_ITS | Encounter Summary ---
Author Organization [facility] Address [address] [place] [address] Care Team Providers Care Loom Fixer Apprentice Name Role Phone Unavailable Primary Care Provider Unavailabl e Encounter Details Date Type Department Care Team (Late Contact Info) Description 12/01/2024 Abstract [facility] B[facility] OB [address] [place] [address] Nolan Cortes DO 102 [...] OB [address] [place] [address] Nolan Cortes DO [address] [place], [place] [phone] documented as of this encounter Visit Diagnoses Not on filedocumented in this encounter
--- OUTSIDE RECORDS SUMMARY | 2025-06-02 09:31 | XMS_ITS | Encounter Summary ---
Author Organization [facility] Address [address] [place] [address] Care Team Providers Care Supervisor Roving Department Name Role Phone Unavailable Primary Care Provider Unavailabl e Encounter Details Date Type Department Care Team (Late Contact Info) Description 08/21/[address] [facility] OB [address] [place] [address] Nolan Cortes, [facility] [place], [facility]11 Social History Tobacco Use Types Packs/Day Years [...] Routine [facility] BCP OB [address] [place] [address] Nolan Cortes, DO [address] [place], [facility]11 documented as of this encounter Visit Diagnoses Not on filedocumented in this encounter
--- OUTSIDE RECORDS SUMMARY | 2025-06-02 09:31 | XMS_ITS | Encounter Summary ---
Demographics Address [address] [place] [address] Mobile Phone Home Phone Email Address Email Address Preferred Language Setswana Marital Status Gnosticism Affiliation Unknown Race White Ethnic Group Not or Lati no Author Organization [employer] tem Address [id number] [address] [place] [address] Support Name Relationship Address Phone Dariusz Purvis Emergency Contact [address] [place] [address] Sravani Villasenor Personal Relationship [address] [place] [address] Laura Cope Personal Relationship Unknown [phone] Care Team Providers Care Licensed Master Social Worker Name Role Phone Eli Azul MD Primary Care Provider + Encounter Details Date Type Department Care Team (Latest Contact Info) Description 06/02/2025 Travel Social History Tobacco Use Types Packs/Day [...] 9:30 AM EDT Telemedicine Maternal- Medicine at [facility] [address] [place] [address] Iman Hall, AMERICAN SIGN LANGUAGE TEACHER-[facility] [address] [place] [address] Arrived documented as of this encounter Visit Diagnoses Not on filedocumented in this encounter Care Teams Licensed Master Social Worker Relationship Specialty Start Date End Date Eli Azul MD PCP - General Pediatrics 06/23/18 documented as of this encounter
--- OUTSIDE RECORDS SUMMARY | 2025-06-02 09:31 | XMS_ITS | Encounter Summary ---
Author Organization [facility] Address [address] [place] [address] Care Team Providers Care Court Stenographer Name Role Phone Unavailable Primary Care Provider Unavailabl e Encounter Details Date Type Department Care Team (Late Contact Info) Description 08/08/2023 Clinisync Result Encounter [facility] External Department Unsolicited Thomas Cortes[address] [place] [address] Social History Tobacco Use Types Packs/Day Years [...] Description 06/07/2025 9:30 AM EDT Routine [facility] OB [address] [place] [phone] Thomas Cortes[address] [place] [address] documented as of this encounter Procedures Procedure Name Priority Date/Time Associated Diagnosis Comments US OB GROWTH 08/08/2023 3:08 PM EDT documented in this encounter Results * US OB GROWTH (08/08/2023 3:08 PM EDT) Anatomical Region Laterality Modality Other 08/08/2023 3:08 PM EDT Narrative 08/08/2023 3:08 [place] [address] Ultrasound Report Signed Patient: KIRA PURVIS MR#: [id number] : 1990 Acct:[id number] Age/Sex: 32 / F ADM Date: 08/07/23 Loc: US Attending Dr: Thomas Cortes D.O. Ordering Physician: Thomas Cortes D.O. Date of Service: 08/07/23 Procedure(s): US OB growth Accession Number(s): [id number] cc: Thomas Cortes D.O.; Physician,Non-Staff [place] [address] Patient Name: KIRA PURVIS MRN: [facility]:[id number] date: 1990 Sex: F Assigned Patient Location: [facility] Current Patient Location: US Accession/Order Number: [id number] Exam Date: 08/07/2023 16:05 Report Date: 08/08/2023 [...] Signed By: 08/08/23 1511 DD/ 1508 TD/TT: Mountain Guide: Procedure Note Radiology, Radiologist, - 08/08/2023 [place] [address] Ultrasound Report Signed Patient: KIRA PURVIS LMR#: [id number] : 1990Acct:[id number] Age/Sex: 32 / FADM Date: 08/07/23 Loc: US Attending Dr: Thomas Cortes D.O. Ordering Physician: Thomas Cortes D.O. Date of Service: 08/07/23 Procedure(s): US OB growth Accession Number(s): [id number] cc: Thomas Cortes D.O.; Physician,Non-Staff [place] [address] Patient Name: KIRA PURVIS MRN: [facility]:[id number] date: 1990 Sex: F Assigned Patient Location: [facility] Current Patient Location: US Accession/Order Number: [id number] Exam Date: 08/07/2023 16:05 Report Date: 08/08/2023 [...] M.D. Signed By:08/08/23 1511 DD/ 1508 TD/TT: Mountain Guide: us Thomas Sebastian DO [facility] Final Result documented in this encounter Visit Diagnoses Not on filedocumented in this encounter
--- OUTSIDE RECORDS SUMMARY | 2025-06-02 09:32 | XMS_ITS | Encounter Summary ---
Author Organization [facility] Address [address] [place] [address] Care Team Providers Care Concession Cashier Name Role Phone Unavailable Primary Care Provider Unavailabl e Encounter Details Date Type Department Care Team (Latest Contact Info) Description 05/31/2025 Travel Social History Tobacco Use Types Packs/Day [...] OB [address] [place] [address] Nolan Cortes, DO [address] [facility] [place] [address] documented as of this encounter Visit Diagnoses Not on filedocumented in this encounter
--- OUTSIDE RECORDS SUMMARY | 2025-06-02 09:32 | XMS_ITS | Encounter Summary ---
Author Organization [facility] Address [address] [place] [address] Care Team Providers Care Process Manager Name Role Phone Unavailable Primary Care Provider Unavailabl e Encounter Details Date Type Department Care Team (Late st Contact Info) Description 04/14/2023 Abstract [facility] OB [address] [place] [phone] Nolan Cortes, DO [address], [facility] [...] Description 06/07/2025 9:30 AM EDT Routine [facility] OB [address] [place] [address] Nolan Cotres, DO [address], [place] [phone] documented as of this encounter Visit Diagnoses Not on filedocumented in this encounter
--- OUTSIDE RECORDS SUMMARY | 2025-06-02 09:32 | XMS_ITS | Encounter Summary ---
Author Organization [facility] Address [address] [place] [address] Care Team Providers Care Subway Repair Supervisor Name Role Phone Unavailable Primary Care Provider Unavailabl e Encounter Details Date Type Department Care Team (Late Contact Info) Description 05/31/2025 Bamboo flowsheet [facility] OB [address] [place] [address] Kristan Fish PA [address] [place], [facility] Social History Tobacco Use Types Packs/Day [...] Description 06/07/2025 9:30 AM EDT Routine [facility] OB [address] [place] [address] Nolan Cortes DO [address] [place], [facility] documented as of this encounter Visit Diagnoses Not on filedocumented in this encounter
--- OUTSIDE RECORDS SUMMARY | 2025-06-02 09:32 | XMS_ITS | Encounter Summary ---
Author Organization [facility] Address [address] [place] [address] Care Team Providers Care Steward Dishwasher Name Role Phone Unavailable Primary Care Provider Unavailabl e Encounter Details Date Type Department Care Team (Late Contact Info) Description 05/26/2025 Clinisync Result Encounter [facility] External Department Unsolicited Thomas Cortes, DO [address] [place], [place] [id number] Social History Tobacco Use Types Packs/Day Years [...] [facility] OB [address] [place] [address] Thomas Cortes, DO [address] [place], [place] [id number] documented as of this encounter Procedures Procedure Name Priority Date/Time Associated Diagnosis Comments US OB BPP W NON-STRESS 05/26/2025 4:48 PM EDT documented in this encounter Results * US OB BPP W NON-STRESS (05/26/2025 4:48 PM EDT) Anatomical Region Laterality Modality Other 05/26/2025 4:48 PM EDT Narrative 05/26/2025 4:51 PM EDT [address] [address] Ultrasound Report Signed Patient: KIRA PURVIS MR#: [id number] : 1990 Acct:[id number] Age/Sex: 34 / F ADM Date: 05/26/25 Loc: [facility] Attending Dr: Thomas Cortes D.O. Ordering Physician: Thomas Cortes D.O. Date of Service: 05/26/25 Procedure(s): US OB BPP w non-stress Accession Number(s): [id number] cc: Thomas Cortes D.O.; Physician,Non-Staff [place] [address] [address] Patient Name: KIRA PURVIS MRN: [facility]:[id number] date: 1990 Sex: F Assigned Patient Location: [facility] Current Patient Location: Accession/Order Number: [id number] Exam Date: 05/26/2025 16:46 Report Date: 05/26/2025 16:48 At the request of: THOMAS CORTES DO [...] Maxwell M.D. 05/26/2025 4:48 PM Dictation Location: [place] [address] Electronically authenticated by: [id number] Y Date: 05/26/2025 16:48 Dictated By: Marquis Maxwell M.D. Signed By: 05/26/251650 DD/ 47 TD/TT: Veneer Department Manager: Procedure Note Radiology, Radiologist, - 05/26/2025 [place] [address] Ultrasound Report Signed Patient: KIRA PURVIS LMR#: [id number] : 1990Acct:[id number] Age/Sex: 34 / FADM Date: 05/26/25 Loc: [facility] Attending Dr: Thomas Cortes D.O. Ordering Physician: Thomas Cortes D.O. Date of Service: 05/26/25 Procedure(s): US OB BPP w non-stress Accession Number(s): [id number] cc: Thomas Cortes D.O.; Physician,Non-Staff [place] [address] [place] [id number] Patient Name: KRIA PURVIS MRN: [facility]:[id number] date: 1990 Sex: F Assigned Patient Location: [facility] Current Patient Location: Accession/Order Number: [id number] Exam Date: 05/26/2025 16:46 Report Date: 05/26/2025 16:48 At the request of: THOMAS CORTES DO Procedure: US OB BPP w non-stress US OB BPP w non-stress 05/26/2025 4:31 PM SIGNS AND SYMPTOMS: 09/17/2024 GDM Y PROTOCOL: Transabdominal sonographic images of the gravid uterus COMPARISON: None FINDINGS: The heart rate is 145 bpm. The amniotic fluid index is 11.5 cm withthe deepest vertical pocket measuring 3.96 cm. Biophysical profile: breathing movements: 2/2 Gross body movements: 2/2 tone: 2/2 Amniotic fluid volume: 2/2 US/US OB BPP w non-stress IMPRESSION: Biophysical profile: 06/17 Impression dictated by: Marquis Maxwell M.D. 05/26/2025 4:48 PM Dictation Location: [place] [address] Electronically authenticated by: [id number] Y Date: 6:48 Dictated By: Marquis Maxwell M.D. Signed By:05/26/25 1651 DD/ 1648 TD/TT: Veneer Department Manager: us Thomas Cortes DO [facility] Final Result documented in this encounter Visit Diagnoses Not on filedocumented in this encounter
--- OUTSIDE RECORDS SUMMARY | 2025-06-02 09:32 | XMS_ITS | Encounter Summary ---
Author Organization [facility] Address [address] [place] [address] Care Team Providers Care Hand Sewer Name Role Phone Unavailable Primary Care Provider Unavailabl e Encounter Details Date Type Department Care Team (Late st Contact Info) Description 04/14/2023 Abstract [facility] OB [address] [place] [phone] Nolan Cortes, DO [address], [facility]11 Social History [...] Description 06/07/2025 9:30 AM EDT Routine [facility] OB [address] [place] [address] Nolan Cortes, DO [address] [place], [place] [phone] documented as of this encounter Visit Diagnoses Not on filedocumented in this encounter
--- OUTSIDE RECORDS SUMMARY | 2025-06-02 09:32 | XMS_ITS | Encounter Summary ---
Author Organization [facility] Address [address] [place] [address] Care Team Providers Care Wire Stretcher Name Role Phone Unavailable Primary Care Provider Unavailabl e Encounter Details Date Type Department Care Team (Late st Contact Info) Description 04/18/2023 Abstract [facility] OB [address] [facility] [phone] Nolan Cortes, DO [address], [facility]11 Social History Tobacco [...] Description 06/07/2025 9:30 AM EDT Routine [facility] OB [address] [facility] [place] [address] Nolan Cortes, DO [address] [place], [place] [phone] documented as of this encounter Visit Diagnoses Not on filedocumented in this encounter
--- OUTSIDE RECORDS SUMMARY | 2025-06-02 09:32 | XMS_ITS | Encounter Summary ---
Author Organization [facility] Address [address] [place] [address] Care Team Providers Care Umbrella Tipper Name Role Phone Unavailable Primary Care Provider Unavailabl e Encounter Details Date Type Department Care Team (Late Contact Info) Description 05/20/2023 Abstract [facility] OB [address] [place] [address] Nolan Cortes, [facility] [address] [place], [facility]11 [...] Routine [facility] OB [address] [place] [address] Nolan Cortes, DO [address], [facility]11 documented as of this encounter Visit Diagnoses Not on filedocumented in this encounter
--- OUTSIDE RECORDS SUMMARY | 2025-06-02 09:32 | XMS_ITS | Encounter Summary ---
Author Organization [facility] Address [address] [place] [address] Care Team Providers Care Grid Inspector Name Role Phone Unavailable Primary Care Provider Unavailabl e Encounter Details Date Type Department Care Team (Late Contact Info) Description 05/30/2025 Clinisync Result Encounter [facility] External Department Unsolicited Thomas Cortes, DO [address] [place], [place] [phone] Social History Tobacco Use Types Packs/Day Years [...] [facility] OB [address] [place] [address] Thomas Cortes, DO [address] [place], [place] [phone] documented as of this encounter Procedures Procedure Name Priority Date/Time Associated Diagnosis Comments US OB BPP W NON-STRESS 05/30/2025 3:41 PM EDT documented in this encounter Results * US OB BPP W NON-STRESS (05/30/2025 3:41 PM EDT) Anatomical Region Laterality Modality Other 05/30/2025 3:41 PM EDT Narrative 05/30/2025 3:44 [place] [address] Ultrasound Report Signed Patient: KIRA PURVIS MR#: [id number] : 1990 Acct:[id number] Age/Sex: 34 / F ADM Date: 05/30/25 Loc: [facility] 250-[address]: Thomas Cortes D.O. Ordering Physician: Thomas Cortes D.O. Date of Service: 05/30/25 Procedure(s): US OB BPP w non-stress Accession Number(s): [id number] cc: Thomas Cortes D.O.; Physician,Non-Staff [place]ky [address] [place] [id number] Patient Name: KIRA PURVIS MRN: [id number] date: 1990 Sex: F Assigned Patient Location: [facility] Current Patient Location: [facility] Accession/Order Number: [id number] Exam Date: 05/30/2025 15:40 Report Date: 05/30/2025 15:41 At the request of: THOMAS CORTES DO Procedure: US OB BPP w non-stress Biophysical profile. Reason for exam: Gestational diabetes COMPARISON: BPP 05/26/2025 TECHNIQUE: Transabdominal imaging of the gravid uterus was obtained. FINDINGS: The office inspector reports a BPP of 8 out of 8. BHAVANI is normal at 11 cm. heart rate 138 bpm. US/US OB BPP w non-stress IMPRESSION: BPP 8 out of 8. Impression dictated by: Jacinto Rivas Jr., D.O. 05/30/2025 3:41 PM Dictation Location: [place] [address] Electronically authenticated by: [id number] Y Date: 05/30/2025 15:41 Dictated By: Jacinto Rivas M.D. Signed By: 05/30/25 1544 DD/ 1541 TD/TT: Manufacturing Supervisor: Procedure Note Radiology, Radiologist, MD - 05/30/2025 [place] [address] Ultrasound Report Signed Patient: KIRA PURVIS LMR#: [id number] : 1990Acct:[id number] Age/Sex: 34 / FADM Date: 05/30/25 Loc: [facility] 250-[address]: Thomas Cortes D.O. Ordering Physician: Thomas Cortes D.O. Date of Service: 05/30/25 Procedure(s): US OB BPP w non-stress Accession Number(s): [id number] cc: Thomas Cortes D.O.; Physician,Non-Staff Nikky [address] [place] [address] Patient Name: KIRA PURVIS MRN: [facility]:[id number] date: 1990 Sex: F Assigned Patient Location: [facility] Current Patient Location: [facility] Accession/Order Number: [id number] Exam Date: 05/30/2025 15:40 Report Date: 05/30/2025 15:41 At the request of: THOMAS CORTES DO Procedure: US OB BPP w non-stress Biophysical profile. Reason for exam: Gestational diabetes COMPARISON: BPP 05/26/2025 TECHNIQUE: Transabdominal imaging of the gravid uterus was obtained. FINDINGS: The office inspector reports a BPP of 8 out of 8. BHAVANI is normal at11 cm. heart rate 138 bpm. US/US OB BPP w non-stress IMPRESSION: BPP 8 out of 8. Impression dictated by: Jacinto Rivas Jr., D.O. 05/30/2025 3:41 PM Dictation Location: [place] [address] Electronically authenticated by: [id number] Y Date: 5:41 Dictated By: Jacinto Rivas M.D. Signed By:05/30/25 1544 DD/ 1541 TD/TT: Manufacturing Supervisor: us Thomas Cortes DO [facility] Final Result documented in this encounter Visit Diagnoses Not on filedocumented in this encounter
[2025-06-02] MEDS: LABETALOL HCL 20 MG/4 ML SYRINGE IVP (15:56)
[2025-06-02 16:01] LABS: Hematocrit 35.0 % (36.0-48.0); Hemoglobin 11.9 g/dL (12.0-16.0); Immature Granulocytes Abs Auto 0.03 10^3/uL (0.00-0.03); Immature Granulocytes Pct Auto 0.5 % (0.0-0.5); Lymphocytes Absolute Auto 1.9 10^3/uL (1.2-3.8); Mean Corpuscular HGB Conc 34.0 g/dL (29.9-35.2); Mean Corpuscular Hemoglobin 31.8 pg (26.7-34.0); Mean Corpuscular Volume 93.6 fL (81.0-99.0); Platelet Count 113 10^3/uL (150-450); Red Blood Count 3.74 10^6/uL (4.20-5.40); White Blood Count 6.5 10^3/uL (4.0-11.0)
[2025-06-02 16:15] LABS: Alanine Aminotransferase 15 U/L (14-59); Aspartate Amino Transferase 13 U/L (15-37); Blood Urea Nitrogen 7.0 mg/dL (7.0-18.0); Estimated GFR (African America >60 (>=60 mL/min/1.73m^2); Estimated GFR (Non-African Ame >60 (>=60 mL/min/1.73m^2); Uric Acid 3.7 mg/dL (2.6-6.0)
[2025-06-02] MEDS: LABETALOL HCL 20 MG/4 ML SYRINGE 40 MG IVP (16:15)
[2025-06-02 16:24] LABS: Partial Thromboplastin Time 23.6 sec (22.3-36.2); Prothrombin Time 9.7 sec (9.0-11.6)
[2025-06-02 16:32] LABS: INR <0.93
[2025-06-02] MEDS: MAGNESIUM-BOLUS FROM THE BAG- 40 GM/1,000 ML IV.SOLN IV (16:49)
[2025-06-02] MEDS: 0.9 % SODIUM CHLORIDE 1,000 ML 75 ML IV (16:50)
[2025-06-02] MEDS: MAGNESIUM SULFATE IN WATER 40 GM/1,000 ML IV.SOLN IV (17:12)
[2025-06-02 17:14] LABS: Fibrinogen 446 mg/dL (200-400)
[2025-06-02 17:16] LABS: Protein Creatinine Ratio Urine 0.83; Total Protein Urine Random 13.9 mg/dL (<=11.9)
[2025-06-02 17:22] LABS: Cannabinoid Screen Urine NEGATIVE (NEGATIVE); Methamphetamines Screen Urine NEGATIVE (NEGATIVE); Tricyclic Antidepressant Urine NEGATIVE (NEGATIVE)
[2025-06-02] MEDS: AMPICILLIN SODIUM 2,000 MG in 0.9 % SODIUM CHLORIDE 100 ML 200 MG IV (18:12)
[2025-06-02] MEDS: OXYTOCIN/0.9 % SODIUM CHLORIDE 10 UNITS/500 ML PLAST..BAG 6 UNIT IV (18:54)
[2025-06-02] MEDS: 0.9 % SODIUM CHLORIDE 1,000 ML 25 ML IV (18:54)
[2025-06-02] MEDS: AMPICILLIN SODIUM 1,000 MG in 0.9 % SODIUM CHLORIDE 50 ML 100 MG IV (22:04)
[2025-06-03] VITALS (62 sets, daily range): BP systolic 59–183; BP diastolic 27–100; PULSE 70–129; TEMP 36.4–36.6
[2025-06-03] MEDS: AMPICILLIN SODIUM 1,000 MG in 0.9 % SODIUM CHLORIDE 50 ML 100 MG IV ×2 (02:30→06:35)
[2025-06-03] MEDS: OXYTOCIN/0.9 % SODIUM CHLORIDE 10 UNITS/500 ML PLAST..BAG 60 UNIT IV (06:46)
[2025-06-03] MEDS: OXYTOCIN/0.9 % SODIUM CHLORIDE 20 UNITS/1,000 ML PLAST..BAG 125 UNIT IV (07:25)
[2025-06-03] MEDS: CARBOPROST TROMETHAMINE 250 MCG/ML 1 ML VIAL IM (07:25)
--- NOTE | 2025-06-03 07:37 | PM.OBPRCVD ---
Procedure Intrapartal events: None Induction method: per pitocin protocol Delivery augmentation: rupture of membranes and pitocin Delivery monitor: external FHT and external uterine Route of delivery: Episiotomy Description: midline L&D Laceration Description: perineal - 2nd degree Delivery repair: Vicryl Estimated blood loss (mL): 499 Anesthesia type: None Disposition: floor Delivery date: 06/03/25 Gender: male presentation: vertex Placental delivery description: Spontaneous cord description: 3 Vessels
[2025-06-03 08:25] LABS: Hematocrit 29.5 % (36.0-48.0); Hemoglobin 9.9 g/dL (12.0-16.0); Immature Granulocytes Abs Auto 0.05 10^3/uL (0.00-0.03); Immature Granulocytes Pct Auto 0.4 % (0.0-0.5); Lymphocytes Absolute Auto 0.9 10^3/uL (1.2-3.8); Mean Corpuscular HGB Conc 33.6 g/dL (29.9-35.2); Mean Corpuscular Hemoglobin 32.6 pg (26.7-34.0); Mean Corpuscular Volume 97.0 fL (81.0-99.0); Platelet Count 125 10^3/uL (150-450); Red Blood Count 3.04 10^6/uL (4.20-5.40); White Blood Count 11.8 10^3/uL (4.0-11.0)
[2025-06-03] MEDS: MAGNESIUM SULFATE IN WATER 40 GM/1,000 ML IV.SOLN IV (13:28)
[2025-06-03] MEDS: ACETAMINOPHEN 325 MG TABLET 650 MG PO (14:16)
[2025-06-03] MEDS: IBUPROFEN 600 MG TABLET PO (18:20)
[2025-06-04] VITALS (7 sets, daily range): BP systolic 121–137; BP diastolic 63–82; PULSE 86–100; TEMP 36.6–36.9
[2025-06-04] MEDS: 0.9 % SODIUM CHLORIDE 1,000 ML 75 ML IV (00:41)
--- NOTE | 2025-06-04 00:51 | PM.OBPN ---
OB - PN: Subj Subjective Patient comments: no complaints and pain well controlled [place] status: doing well Exam Constitutional Vital Signs, click to edit/add: Last Vital Signs Temp 97.9 F 06/03/25 20:56 Pulse 100 H 06/04/25 00:40 Resp 16 06/03/25 20:56 BP 126/65 06/04/25 00:40 O2 Del Method Room Air 06/03/25 20:55 Documenting provider has reviewed patient's vital signs: yes Common normals: no apparent distress Respiratory Common normals: normal respiratory effort and clear to auscultation bilaterally Cardio Common normals: regular rate and regular rhythm GI Common normals: Normal to inspection, nondistended, normoactive bowel sounds present Extremity Common normals: no clubbing, cyanosis or edema and no calf tenderness Results Labs Labs: Short CBC 06/03/25 Range/Units 08:15 WBC 11.8 H (4.0-11.0) 10^3/uL Hgb 9.9 L (12.0-16.0) g/dL Hct 29.5 L (36.0-48.0) % Plt Count 125 L (150-450) 10^3/uL OB - PN: A/P Plan - Vaginal Delivery day: 1 Plan: routine care Time Spent with Patient Time: Total time spent is greater than 50% in coordination of care (as documented) at patient's floor/unit and/or counseling patient: Total time spent with greater than 50% in coordination of care (as documented) at patient's floor/unit and/or counseling patient: less than 15 minutes
[2025-06-04] MEDS: ACETAMINOPHEN 325 MG TABLET 650 MG PO ×3 (03:49→23:36)
[2025-06-04 06:50] LABS: Hematocrit 26.8 % (36.0-48.0); Hemoglobin 8.8 g/dL (12.0-16.0); Immature Granulocytes Abs Auto 0.10 10^3/uL (0.00-0.03); Immature Granulocytes Pct Auto 0.9 % (0.0-0.5); Lymphocytes Absolute Auto 1.2 10^3/uL (1.2-3.8); Mean Corpuscular HGB Conc 32.8 g/dL (29.9-35.2); Mean Corpuscular Hemoglobin 32.0 pg (26.7-34.0); Mean Corpuscular Volume 97.5 fL (81.0-99.0); Platelet Count 123 10^3/uL (150-450); Red Blood Count 2.75 10^6/uL (4.20-5.40); White Blood Count 10.9 10^3/uL (4.0-11.0)
[2025-06-04] MEDS: IBUPROFEN 600 MG TABLET PO (07:59)
[2025-06-04] MEDS: DOCUSATE SODIUM 100 MG CAPSULE PO ×2 (07:59→23:32)
[2025-06-04] MEDS: KETOROLAC TROMETHAMINE 30 MG/ML VIAL IVP (17:22)
[2025-06-05] VITALS (8 sets, daily range): BP systolic 121–154; BP diastolic 64–89; PULSE 62–94; TEMP 36.2–36.7
[2025-06-05] MEDS: IBUPROFEN 600 MG TABLET PO ×3 (06:48→22:24)
[2025-06-05] MEDS: ACETAMINOPHEN 325 MG TABLET 650 MG PO ×3 (08:19→22:25)
[2025-06-05] MEDS: DOCUSATE SODIUM 100 MG CAPSULE PO ×2 (08:20→22:26)
[2025-06-05] MEDS: RHO(D) IMMUNE GLOBULIN 1,500 UNIT SYRINGE 1500 UNIT IV (09:30)
--- NOTE | 2025-06-05 10:52 | P.OBPN_ITS ---
OB - PN: Subj Subjective Patient comments: no complaints [place] status: doing well feeding status: exclusively Exam Constitutional Vital Signs, click to edit/add: Last Vital Signs Temp 97.8 F 06/04/25 23:36 Pulse 63 06/05/25 09:13 Resp 18 06/04/25 23:36 BP 121/67 06/05/25 09:13 O2 Del Method Room Air 06/04/25 23:35 Documenting provider has reviewed patient's vital signs: yes Common normals: no apparent distress and oriented x3 General appearance: cooperative HENMT Common normals: normocephalic Eye Common normals: EOMs intact bilaterally General eye: normal appearance of both eyes Neck & C-Spine Common normals: full ROM and no lymphadenopathy Lymph Lymphatic: no lymphadenopathy noted Chest Common normals: inspection of chest normal Respiratory Common normals: normal respiratory effort Effort & inspection: able to speak in complete sentences Auscultation: clear to auscultation bilaterally Cardio Common normals: regular rate and regular rhythm Rate: regular rate Rhythm: regular rhythm GI Common normals: Normal to inspection, nondistended, normoactive bowel sounds present Inspection: normal to inspection Auscultation: normoactive bowel sounds Palpation: soft, firm and tender Common normals: no CVA tenderness Back & Pelvis Common normals: no CVA tenderness Extremity Common normals: normal to inspection and full ROM General: normal exam except as noted Neuro Common normals: oriented x3 Sensorium/orientation: awake, alert, oriented to person, oriented to place and oriented to time Speech: speech normal Psych Common normals: mental status grossly normal, thought process normal, cooperative, affect normal, speech normal, activity/motor behavior normal, denies hallucinations, denies homicidal ideation and denies suicidal ideation Appearance: grossly normal Attitude: calm Activity/motor behavior: appropriate eye contact OB - PN: A/P Plan - Vaginal Delivery day: 2 Plan: discharge home Time Spent with Patient Time: Total time spent is greater than 50% in coordination of care (as documented) at patient's floor/unit and/or counseling patient: Total time spent with greater than 50% in coordination of care (as documented) at patient's floor/unit and/or counseling patient: less than 15 minutes
== END 2025-06-05 23:00 | disposition home or self-care (01) | DRG 807 ==
LOC: FBCO 15:52 → FBC 15:52
PROVIDERS: Admitting Provider Obstetrics & Gynecology; Visit Provider Obstetrics & Gynecology
DX: O14.14 Severe pre-eclampsia complicating childbirth (principal); Z37.0 Single live birth; O16.4 Unspecified maternal hypertension, complicating childbirth; O24.425 Gestational diabetes mellitus in childbirth, controlled by oral hypoglycemic drugs; O26.893 Other specified pregnancy related conditions, third trimester; Z67.41 Type O blood, Rh negative; O99.214 Obesity complicating childbirth; E66.01 Morbid (severe) obesity due to excess calories; O70.1 Second degree perineal laceration during delivery; Z3A.36 36 weeks gestation of pregnancy; Z87.891 Personal history of nicotine dependence; Z90.49 Acquired absence of other specified parts of digestive tract; Z79.82 Long term (current) use of aspirin
CPT/HCPCS: 36415; 59025; 59050; 59410; 80307; 82565; 82570; 84156; 84450; 84460; 84520; 84550; 85025; 85384; 85461; 85610; 85730; 86850; 86900; 86901; J0290; J1885; J1920; J2300; J2791; J3475

== ENCOUNTER 2025-06-07 11:12 | Inpatient (IN) | payer BC, SELFPAY ==
--- OUTSIDE RECORDS SUMMARY | 2025-05-24 08:40 | XMS_ITS | Encounter Summary ---
Author Organization [facility] Address [address] [place] [address] Care Team Providers Care Enroute Controller Name Role Phone Unavailable Primary Care Provider Unavailabl e Reason for Visit * Reason Comments Routine Visit Encounter Details Date Type Department Care Team ([facility] Contact Info) Description 05/24/2025 8:40 AM EDT Routine NOMChip Jeffries OBJOSHUA [address] [facility] [place] [phone] Kristan Fish PA [address] [facility] [address] [place], [place] [phone] Third trimester ([facility]); 35 weeks gestation of ([facility]); induced hypertension, antepartum ([facility]) Social History Tobacco Use [...] Reading Time Taken Comments Blood Pressure 130/82 05/24/2025 8:59 AM EDT Pulse - - Temperature - - Respiratory Rate - - Oxygen Saturation - - Inhaled Oxygen Concentration - - Weight 139 kg (307 lb 4 oz) 05/24/2025 8:59 AM E DT Height - - Body Mass Index 48.12 09/09/2023 1:05 PM EDT documented in this encounter Progress Notes * JOANNE Hernandez - 05/24/2025 8:40 AM EDT Reason for Appointment: Patient ID: [...] Noted Benign essential hypertension in obstetric context ([facility]) 04/18/2023 Exposure to cat feces 04/18/2023 Gestational diabetes ([facility]) 04/18/2023 Nausea 04/18/2023 History of delivery 02/24/2023 Resolved Ambulatory Problems Diagnosis Date Noted No Resolved Ambulatory Problems Past Medical History: Diagnosis Date Chronic hypertension affecting ([facility]) Exposure to cat feces, sequela Former smoker Herpes exposure History of miscarriage Morbid obesity with BMI of 40.0-44.9, adult ([facility] HISTORY PAST MEDICAL HISTORY SOCIAL HISTORY Past Medical History: Diagnosis Date Chronic hypertension affecting ([facility]) Exposure to cat feces, sequela Former smoker Gestational diabetes ([facility]) Herpes exposure History of miscarriage Morbid obesity with BMI of 40.0-44.9, adult ([facility] Social History Tobacco Use [...] Exam Constitutional: Appearance: Normal appearance. She is normal weight. HENT: Head: Normocephalic. Cardiovascular: Rate and Rhythm: Normal rate. Pulses: Normal pulses. Pulmonary: Effort: Pulmonary effort is normal. Breath sounds: Normal breath sounds. Abdominal: Palpations: Abdomen is soft. Musculoskeletal: General: Normal range of motion. Neurological: General: No focal deficit present. Mental Status: She is alert and oriented to person, place, and time. Psychiatric: Mood and Affect: Mood normal. Behavior: Behavior normal. Thought Content: Thought content normal. Judgment: Judgment normal. Vitals and nursing note reviewed. Vitals: Estimated body mass index is 48.12 kg/m?? as calculated from the following: Height as of 09/09/23: 5' 7 . Weight as of this encounter: 307 lb 4 oz. BP: 130/82 Patient's last menstrual period was 09/17/2024. ASSESSMENT & PLAN ICD-10-CM 1. Third trimester ([facility]) Z34.93 POCT urinalysis dipstick manually resulted 2. 35 weeks gestation of ([facility]) Z3A.35 3. induced hypertension, antepartum ([facility]) O13.9 CANCELED: Creatinine CANCELED: Protein, urine, 24 hour CANCELED: Pt and ptt CANCELED: CBC and differential CANCELED: Uric acid CANCELED: Lactate dehydrogenase CANCELED: ALT CANCELED: AST CANCELED: BUN CANCELED: Creatinine CANCELED: Protein, urine, 24 hour CANCELED: Pt and ptt CANCELED: CBC and differential CANCELED: Uric acid CANCELED: Lactate dehydrogenase CANCELED: ALT CANCELED: AST CANCELED: BUN Return OB: Patient presents today for a routine obstetrics appointment. Patient is currently 35w4d . Patient states she is doing well but has complaints of being tired due to current . Patient has verbalizes frequent movement. labor precautions was discussed/given and patient was instructed to perform kick counts three times a day. Patient continues to do nst and bpp weekly. Edema noted to bilateral ankles. We will continue to monitor, pt denies headaches or floaters, bp normal today Orders Placed This Encounter Procedures POCT urinalysis dipstick manually resulted Follow Up: Patient is to return to office in 1 week for routine OB appointment. Documented by JOANNE Hernandez on behalf of: JOANNE Hernandez documented in this encounter Plan of Treatment Not on file documented as of this encounter Procedures Procedure Name Priority Date/Time Associated Diagnosis Comments POCT URINALYSIS DIPSTICK Routine 05/24/2025 9:13 AM EDT Third trimester ([facility]) documented in this encounter Results * (ABNORMAL) POCT urinalysis dipstick manually resulted (05/24/2025 9:13 AM EDT) Color, UA Yellow Clarity, UA Clear Glucose, UA Negative Negative - 2000(110) ++++ mg/dL Bilirubin, UA Trace Negative - 4(70) +++ mg/dL Ketones, UA Negative Negative - 160(16) ++++ mg/dL Spec Grav, UA 1.030 1 - 1.03 Blood, UA Negative Negative - 50 Eliceo/mcL pH, UA 6.0 5 - 9 Protein, UA Trace Negative - 2000(20) ++++ mg/dL Urobilinogen, UA 1.0 0.2 - 12 mg/dL Leukocytes, UA Negative Negative - 500+++ Danielle/mcL Nitrite, UA Negative Negative - Positive Urine 05/24/2025 9:13 AM EDT us Kristan RUBIO POINT OF CARE TEST ENTER/EDIT OR DERABLES Final Result documented in this encounter Visit Diagnoses Diagnosis Third trimester ([facility]) state, incidental 35 weeks gestation of ([facility]) induced hypertension, antepartum ([facility]) Transient hypertension of , antepartum documented in this encounter
--- OUTSIDE RECORDS SUMMARY | 2025-05-31 10:50 | XMS_ITS | Encounter Summary ---
Author Organization [facility] Address [address] [place] [address] Care Team Providers Care Information Systems Audit Manager Name Role Phone Unavailable Primary Care Provider Unavailabl e Reason for Visit * Reason Comments Routine Visit Encounter Details Date Type Department Care Team ([facility] Contact Info) Description 05/31/2025 10:50 AM EDT Routine [facility] [address] [place] [phone] Kristan Fish PA [address] [place], [id number] Third trimester ([facility]); 36 weeks gestation of ([facility]) Social History Tobacco Use Types Packs/Day [...] Noted Benign essential hypertension in obstetric context ([facility]) 04/18/2023 Exposure to cat feces 04/18/2023 Gestational diabetes ([facility]) 04/18/2023 Nausea 04/18/2023 History of delivery 02/24/2023 Resolved Ambulatory Problems Diagnosis Date Noted No Resolved Ambulatory Problems Past Medical History: Diagnosis Date Chronic hypertension affecting ([facility]) Exposure to cat feces, sequela Former smoker Herpes exposure History of miscarriage Morbid obesity with BMI of 40.0-44.9, adult ([facility]) HISTORY PAST MEDICAL HISTORY SOCIAL HISTORY Past Medical History: Diagnosis Date Chronic hypertension affecting ([facility]) Exposure to cat feces, sequela Former smoker Gestational diabetes ([facility]) Herpes exposure History of miscarriage Morbid obesity with BMI of 40.0-44.9, adult ([facility]) Social History Tobacco Use Smoking status: Former [...] ASSESSMENT & PLAN ICD-10-CM 1. Third trimester ([facility]) Z34.93 POCT urinalysis dipstick manually resulted CULTURE, GROUP B STREP WITH SUSCEPTIBLITY CULTURE, GROUP B STREP WITH SUSCEPTIBLITY 2. 36 weeks gestation of ([facility]) Z3A.36 Return OB: Patient presents today [...] documented in this encounter Plan of Treatment Scheduled Orders Name Type Priority Associated Diagnoses Orde r Schedule CULTURE, GROUP B STREP WITH SUSCEPTIBLITY Lab Routine Third trimester ([facility]) Expected: 05/31/2025, Expires: 05/31/2026 documented as of this encounter Procedures Procedure Name Priority Date/Time Associated Diagnosis Comments POCT URINALYSIS DIPSTICK Routine 05/31/2025 11:08 AM EDT Third trimester ([facility]) documented in this encounter Results * (ABNORMAL) [...] this encounter Visit Diagnoses Diagnosis Third trimester ([facility]) state, incidental 36 weeks gestation of ([facility]) documented in this encounter
--- OUTSIDE RECORDS SUMMARY | 2025-06-02 09:30 | XMS_ITS | Encounter Summary ---
Demographics Address [address] [place] [address] Mobile Phone Home Phone Email Address Email Address Preferred Language German Marital Status Congregational Affiliation Unknown Race White Ethnic Group Not or Lati no Author Organization [facility] hospitalFull[facility] Geo[employer] tem Address [id number] [address] [place] [address] Support Name Relationship Address Phone Dariusz Purvis Emergency Contact [address] [place] [address] Sravani Jacklyn Personal Relationship [address] [place] [address] Laura Cope Personal Relationship Unknown [phone] Care Team Providers Care Animal Care Provider Name Role Phone Eli Azul MD Primary Care Provider + Encounter Details Date Type Department Care Team (Late st Contact Info) Description 06/02/2025 9:30 AM EDT Telemedicine Maternal- Medicine at [facility] [address] [place] [phone] Iman Hall, BRAND DEVELOPMENT MANAGER-ROUTE MANAGER [address] [place] [address] Gestational diabetes mellitus (GDM) in third trimester controlled on oral hypoglycemic drug (Primary [...] as of this encounter Progress Notes * Iman Hall, GABINO-PREMA - 06/02/2025 9:30 AM EDT REASON FOR OFFICE VISIT: Video Visit via Real-time Synchronous Audiovisual Provider Location: [facility] MATERNAL- MEDICINE AT [address] [id number] Patient Location: Patient's home Video Visit Consent Statement: I discussed risks, benefits, and alternatives of a real-time synchronous audiovisual consultation with the patient (and any accompanying persons) including the risks that the patient's personal health details and medical records will be discussed over real-time, synchronous, interactive video/audio/telecommunication technology, the visit will not be recorded withoutthe express consent of both the provider and the patient, and that there are some limitations compared to ikcm-my-uhzi evaluations. The patient consented to the presence of additional virtual and/or in-person participants. We elected to proceed. 1. GDMA2; A1c most recent 5.8% - on Metformin 2. Hx vaginal delivery 3. Hx PTD HISTORY OF PRESENT ILLNESS: Charlene Purvis is a pleasant 34 y.o. at 36w6d due on Estimated Date of Delivery: 06/24/25. Currently the patient has no complaints. The patient denies WONG, nausea, vomiting, abdominal pain, vaginal bleeding, contractions, leaking fluid or chest pain. +. She is being followed at [facility] due to GDMA2. States she is following meal plan as much as possible and eating evening snack. FBS - 89-94 1 HR Postprandial - 128-136 Past Medical History PAST OBSTETRICAL HISTORY: OB History 3 Para 1 Term 1 AB 1 Living 1 SAB 1 IAB Ectopic Multiple Live Births 1 SURGICAL HISTORY: Past Surgical History: Procedure Laterality Date ELBOW SURGERY Right LAPAROSCOPIC CHOLECYSTECTOMY N/A 10/27/2018 Performed by Vince Ardon DO at [facility] SKIN SURGERY mole removed from neck ALLERGIES: [...] Rfl: LABS: Lab Results Component Value Date CREATININE 0.49 08/25/2021 Lab Results Component Value Date TSH 0.495 01/31/2023 No results found for: [id number] Lab Results Component Value Date CREATININE 0.49 [...] and vaginal discharge PHYSICAL EXAMINATION: LMP 09/17/2024 and heart rate present. Gravid abdomen, Alert & Oriented. Respirations not labored. DISCUSSION: Glucose well controlled Importance of good blood sugar control was emphasized. The potential effects of uncontrolled diabetes before and during on herself were discussed including: preeclampsia, induced hypertension, labor, C- section, and polyhydramnios. Potential effects on baby were explained: stillbirth, miscarriage, macrosomia, jaundice, trauma, hypoglycemia, respiratory distress and hypocalcemia. Insulin-dependent diabetes mellitus and its effect on was reviewed. This means there is an insulin deficiency requiring exogenous insulin to keep a euglycemic state. causes hyperglycemia in various ways. Placental hormones: human placental lactogen and TNF alpha can eventually hasten insulin resistance and hyperglycemia. Generally after 39 weeks gestation, we prefer to have a planned delivery in view of increased risk of demise. Earlier delivery may be necessitated due to a diagnosis of maternal preeclampsia, for which the risk of which is elevated in diabetic pregnancies. Also, if the infant is large, which can still happen despite good glycemic control, there is an increased risk of maternal and trauma. This is defined as EFW greater than 4500 gm. An elective delivery can be offered when the EFW is > 4500 gm at term to reduce the risk of shoulder dystocia. Long-term risk to offspring from poor maternal glycemic control include: obesity, cardiovascular disease, impaired glucose tolerance and Type 2 diabetes were reviewed. Continue [facility] Recommended carbohydrate allocation ranges: 30-45 g for breakfast, 45-60 g for lunch and dinner, and 15-g snacks roughly 2-3 hours after each meal. A1c less than 6% has the lowest risk for LGA Pre-E s/s reviewed: BP >160/110, epigastric or RUQ ABD pain unresponsive to analgesics, neurological symptoms:vision changes, floaters, severe headache not relieved with medication, or fluid changes: reduced voids, swelling in hands, face or pitting edema encroaching up the shins, weight gain >4lbs in 1 week SUMMARY/RECOMMENDATION: The following is a summary of our recommendations: 1. Blood work: Per primary Ob in the presence of concerning s/s 2. Medication: No changes at this time 3. testing: Twice weekly NST w/ weekly DVP growth ultrasounds every 4 weeks starting at 28 weeks 4. Delivery timing: Consider planned delivery btw 39/0-39/6 weeks or before if indicated GDMA2:may monitor patient's BG every 4hrs during latent labor, every 1 hr during active labor with goal BG to be less than 140mg/dl. Can use insulin sliding scale prn hyperglycemia. With concern for pre-gestational diabetes post glucose measuring (fasting and 1 hr PP after each meal) is recommended for 2 weeks with f/u to PCP 5. Post : Please obtain a 2-hour GTT directly while still hospitalized after delivery or 4-12 weeks out patient and then A1c yearly as the patient has a 20% risk of having or developing diabetes later on. 6. Follow-up appointment: I asked her to keep sending values to us weekly by e-mail to: [email or web address] or by fax to: [phone] TIME OF CONSULTATION: 15 minutes with the patient, >50% in discussion and counseling, coordination of care which was [id number], review of records and communication back to referring provider. FRAICSCO Trejo 06/02/25 0942 documented in this encounter Plan of Treatment Not on file documented as of this encounter Visit Diagnoses Diagnosis Gestational diabetes mellitus (GDM) in third trimester controlled on oral hypoglycemic drug- Primary documented in this encounter Care Teams Animal Care Provider Relationship Specialty Start Date End Date Eli Azul MD PCP - General Pediatrics 06/23/18 documented as of this encounter
[2025-06-07] VITALS (15 sets, daily range): BP systolic 137–175; BP diastolic 65–86; PULSE 70–108; TEMP 36.7–38.1; O2SAT 95–99
--- OUTSIDE RECORDS SUMMARY | 2025-06-07 09:40 | XMS_ITS | Encounter Summary ---
Author Organization [facility] Address [address] [facility] [place] [address] Care Team Providers Care Mobile Equipment Operator Name Role Phone Unavailable Primary Care Provider Unavailabl e Reason for Visit * Reason Comments Blood Pressure Check Encounter Details Date Type Department Care Team ([facility] Contact Info) Description 06/07/2025 9:40 AM EDT Visit [facility] [address] [place] [id number] Nolan Cortes DO [address] [place] [address] Throbbing headache; Encounter for visit ([facility]) Social History Tobacco Use Types Packs/Day Years Used Date Smoking Tobacco: Former Cigarettes Alcohol Use Standard Drinks/Week Comments Never 0 (1 standard drink = 0.6 oz pur e alcohol) Comments No Sex and Gender Information Value Date Recorded Sex Assigned at Not on file Legal Sex Female 11:46 PM EDT Gender Identity Not on file Sexual Orientation Not on file documented as of this encounter Last Filed Vital Signs Vital Sign Reading Time Taken Comments Blood Pressure 158/88 06/07/2025 10:36 AM EDT Pulse - - Temperature - - Respiratory Rate - - Oxygen Saturation - - Inhaled Oxygen Concentration - - Weight 143 kg (315 lb) 06/07/2025 10:29 AM EDT Height - - Body Mass Index 49.34 09/09/2023 1:05 PM EDT documented in this encounter Progress Notes * Grace Arita LPN - 06/07/2025 9:40 AM EDT Reason for Appointment: Patient ID: Charlene Purvis is a 34 y.o. female who presents for Blood Pressure Check Patient presents today for Post Follow Up appointment. 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 ([facility]) 04/18/2023 Exposure to cat feces 04/18/2023 Gestational diabetes ([facility]) 04/18/2023 Nausea 04/18/2023 History of delivery 02/24/2023 Resolved Ambulatory Problems Diagnosis Date Noted No Resolved Ambulatory Problems Past Medical History: Diagnosis Date Chronic hypertension affecting ([facility]) Exposure to cat feces, sequela Former smoker Herpes exposure History of miscarriage Morbid obesity with BMI of 40.0-44.9, adult ([facility]) HISTORY PAST MEDICAL HISTORY SOCIAL HISTORY Past Medical History: Diagnosis Date Chronic hypertension affecting ([facility]) Exposure to cat feces, sequela Former smoker Gestational diabetes ([facility]) Herpes exposure History of miscarriage Morbid obesity with BMI of 40.0-44.9, adult ([facility]) Social History Tobacco Use Smoking status: Former [...] Genitourinary: Negative. Musculoskeletal: Negative. Skin: Negative. Neurological: Positive for headaches. All other systems reviewed and are negative. [...] nursing note reviewed. Exam conducted with a manager site present. Vitals: Estimated body mass index is 49.34 kg/m?? as calculated from the following: Height as of 09/09/23: 5' 7 . Weight as of this encounter: 315 lb. BP: 158/88 Patient's last menstrual period was 09/17/2024. ASSESSMENT & PLAN ICD-10-CM 1. Throbbing headache R51.9 2. Encounter for visit ([facility]) Z39.2 Pt presents with a throbbing headache- pt being sent to [facility] for observation pt delivered 06/03/25. Pt to continue labetalol. Pt to return in one week for BP check and headache check. Documented by Grace Arita LPN on behalf of: Nolan Cortes DO documented in this encounter Plan of Treatment Not on file documented as of this encounter Visit Diagnoses Diagnosis Throbbing headache Headache Encounter for visit ([facility]) documented in this encounter
--- OUTSIDE RECORDS SUMMARY | 2025-06-07 11:15 | XMS_ITS | Encounter Summary ---
Author Organization [facility] Address [address] [place] [address] Care Team Providers Care Machinist Supervisor Outside Name Role Phone Unavailable Primary Care Provider Unavailabl e Encounter Details Date Type Department Care Team (Late st Contact Info) Description 12/08/2024 Abstract [facility] [address] [place] [address] Nolan Cortes DO [address] [place], [place] [address] Social History Tobacco Use Types Packs/Day Years [...]
--- OUTSIDE RECORDS SUMMARY | 2025-06-07 11:15 | XMS_ITS | Encounter Summary ---
Demographics Address [address] [place] [address] Mobile Phone Home Phone Email Address Email Address Preferred Language Syriac Marital Status Holiness Affiliation Unknown Race White Ethnic Group Not or Lati no Author Organization [facility] tem Address [id number] [address] [place] [address] Support Name Relationship Address Phone Dariusz Purvis Emergency Contact [address] [place] [address] Sravani Villasenor Personal Relationship [address] [place] [address] Laura Cope Personal Relationship Unknown [phone] Care Team Providers Care Felt Pad Cutter Name Role Phone Eli Azul MD Primary Care Provider + Encounter Details Date Type Department Care Team (Late st Contact Info) Description 03/15/2025 Orders Only Maternal- Medicine at [facility] [address] [place] [address] Rufina Hurd CMA Social History Tobacco Use [...] on filedocumented in this encounter Care Teams Felt Pad Cutter Relationship Specialty Start Date End Date Eli Azul MD PCP - General Pediatrics 06/23/18 documented as of this encounter
--- OUTSIDE RECORDS SUMMARY | 2025-06-07 11:15 | XMS_ITS | Encounter Summary ---
Author Organization [facility] Address [address] [place] [address] Care Team Providers Care Dock Guard Name Role Phone Unavailable Primary Care Provider Unavailabl e Encounter Details Date Type Department Care Team (Late st Contact Info) Description 08/21/2023 Abstract [facility] [address] [place] [address] Nolan Cortes DO [address] [place], [place] [address] Social History Tobacco Use Types Packs/Day Years [...]
--- OUTSIDE RECORDS SUMMARY | 2025-06-07 11:15 | XMS_ITS | Encounter Summary ---
Author Organization [facility] Address [address] [facility] [place] [address] Care Team Providers Care Stage Director Name Role Phone Unavailable Primary Care Provider Unavailabl e Encounter Details Date Type Department Care Team (Late st Contact Info) Description 03/26/2024 Orders Only [facility] [address] [place] [phone] Bertha Quevedo LPN [address] [place] [address] [place] [address] Social History Tobacco Use Types Packs/Day Years [...]
--- OUTSIDE RECORDS SUMMARY | 2025-06-07 11:15 | XMS_ITS | Encounter Summary ---
Author Organization [facility] Address [address] [place] [address] Care Team Providers Care Clinical Rehabilitation Liaison Name Role Phone Unavailable Primary Care Provider Unavailabl e Encounter Details Date Type Department Care Team (Late st Contact Info) Description 07/18/2023 Clinisync Result Encounter NOMS External Department Unsolicited Thomas Cortes, DO [address] [place] [place], [place] [address] Social History Tobacco Use Types Packs/Day Years [...] PM EDT Narrative 07/18/2023 3:07 PM EDT The [place] [id number] Ultrasound Report Signed Patient: KIRA PURVIS MR#: [id number] 06 : 1990 Acct:[id number] Age/Sex: 32 / F ADM Date: 07/17/23 Loc: US Attending Dr: Thomas Cortes D.O. Ordering Physician: Thomas Cortes D.O. Date of Service: 07/17/23 Procedure(s): US OB BPP w non-stress Accession Number(s): [id number] cc: Thomas Cortes D.O.; Physician,Non-Staff Nikky The [address] [address] Patient Name: KIRA PURVIS MRN: [facility]:[id number] date: 1990 Sex: F Assigned Patient Location: [facility] Current Patient Location: Accession/Order Number: [id number] Exam Date: 07/17/2023 16:00 Report Date: 07/18/2023 [...] Dictated By: Ruben Dillon M.D. Signed By: 07/18/23 1510 DD/ 1507 TD/TT: Hide Tanner: Procedure Note Radiology, Radiologist, - 08/01/2023 The [place] [id number] Ultrasound Report Signed Patient: KIRA PURVIS LMR#: [id number] 06 : 1990Acct:[id number] Age/Sex: 32 / FADM Date: 07/17/23 Loc: US Attending Dr: Thomas Cortes D.O. Ordering Physician: Thomas Cortes D.O. Date of Service: 07/17/23 Procedure(s): US OB BPP w non-stress Accession Number(s): [id number] cc: Thomas Cortes D.O.; Physician,Non-Staff MTomas [place] [address] Patient Name: KIRA PURVIS MRN: [facility]:[id number] date: 1990 Sex: F Assigned Patient Location: [facility] Current Patient Location: Accession/Order Number: [id number] Exam Date: 07/17/2023 16:00 Report Date: 07/18/2023 [...] 15:07 Dictated By: Ruben Dillon M.D. Signed By:07/18/23 1510 DD/ 1507 TD/TT: Hide Tanner: Thomas Cortes DO [facility] Final Result documented in this encounter Visit Diagnoses Not on filedocumented in this encounter
--- OUTSIDE RECORDS SUMMARY | 2025-06-07 11:15 | XMS_ITS | Encounter Summary ---
Author Organization [facility] Address [address] [place] [address] Care Team Providers Care Travel Sales Consultant Name Role Phone Unavailable Primary Care Provider Unavailabl e Encounter Details Date Type Department Care Team (Late st Contact Info) Description 05/25/2025 Clinisync Result Encounter [facility]OMS External Department Unsolicited Thomas Cortes DO [address] [place] [address] Social History Tobacco Use Types [...] AM EDT Narrative 05/25/2025 9:15 AM EDT The [address] [address] Ultrasound Report Signed Patient: KIRA PURVIS MR#: [id number] : 1990 Acct:[id number] Age/Sex: 34 / F ADM Date: 05/16/25 Loc: US Attending Dr: Thomas Cortes D.O. Ordering Physician: Thomas Cortes D.O. Date of Service: 05/16/25 Procedure(s): US OB growth Accession Number(s): [id number] cc: Thomas Cortes D.O.; Physician,Non-Staff Nikky [place] [address] Patient Name: KIRA PURVIS MRN: [facility]:[id number] date: 1990 Sex: F Assigned Patient Location: Current Patient Location: Accession/Order Number: [id number] Exam Date: 05/25/2025 09:01 Report Date: 05/25/2025 [...] Peña M.D. 05/25/2025 9:12 AM Dictation Location: [place] [address] Electronically authenticated by: [id number] Y Date: 05/25/2025 09:12 Dictated By: Grace Peña M.D. Signed By: 05/25/25914 DD/ 1 TD/TT: Employment And Claims Aide: Procedure Note Radiology, Radiologist, - 05/25/2025 [place] [address] Ultrasound Report Signed Patient: KIRA PURVIS LMR#: [id number] : 1990Acct:[id number] Age/Sex: 34 / FADM Date: 05/16/25 Loc: US Attending Dr: Thomas Cortes D.O. Ordering Physician: Thomas Cortes D.O. Date of Service: 05/16/25 Procedure(s): US OB growth Accession Number(s): [id number] cc: Thomas Cortes D.O.; Physician,Non-Staff Nikky The [place] [id number] Patient Name: KIRA PURVIS MRN: [facility]:[id number] date: 1990 Sex: F Assigned Patient Location: US Current Patient Location: Accession/Order Number: [id number] Exam Date: 05/25/2025 09:01 Report Date: 05/25/2025 [...] Peña M.D. 05/25/2025 9:12 AM Dictation Location: [place] [address] Electronically authenticated by: [id number] Y Date: 9:12 Dictated By: Grace Peña M.D. Signed By:05/25/25 0915 DD/ 1 TD/TT: Employment And Claims Aide: us Thomas Siddiquio DO [facility] Final Result documented in this encounter Visit Diagnoses Not on filedocumented in this encounter
--- OUTSIDE RECORDS SUMMARY | 2025-06-07 11:15 | XMS_ITS | Encounter Summary ---
Author Organization [facility] Address [address] [place] [address] Care Team Providers Care Head Banquet Waitress Name Role Phone Unavailable Primary Care Provider Unavailabl e Encounter Details Date Type Department Care Team (Late st Contact Info) Description 12/01/2024 Abstract [facility] [address] [place] [address] Nolan Cortes DO [address] [place], [place] [address] Social History Tobacco Use Types Packs/Day Years [...]
--- OUTSIDE RECORDS SUMMARY | 2025-06-07 11:15 | XMS_ITS | Encounter Summary ---
Author Organization [facility] Address [address] [place] [address] Care Team Providers Care Trimmer Hand Name Role Phone Unavailable Primary Care Provider Unavailabl e Encounter Details Date Type Department Care Team (Late st Contact Info) Description 08/21/2023 Abstract [facility] [address] [place] [address] Nolan Cortes DO [address] [place], [place] [address] Social History Tobacco Use Types Packs/Day Years [...]
--- OUTSIDE RECORDS SUMMARY | 2025-06-07 11:15 | XMS_ITS | Encounter Summary ---
Demographics Address [address] [place] [address] Mobile Phone Home Phone Email Address Email Address Preferred Language Sami Marital Status Orthodoxy Affiliation Unknown Race White Ethnic Group Not or Lati no Author Organization [facility] tem Address [facility][id number] [address] [place] [address] Support Name Relationship Address Phone Dariusz Purvis Emergency Contact [address] [place] [address] Sravani Villasenor Personal Relationship [address] [place] [address] Laura Cope Personal Relationship Unknown [phone] Care Team Providers Care Data Reduction Technician Name Role Phone Eli Azul MD [...] on filedocumented in this encounter Care Teams Data Reduction Technician Relationship Specialty Start Date End Date Eli Azul MD PCP - General Pediatrics 06/23/18 documented as of this encounter
--- OUTSIDE RECORDS SUMMARY | 2025-06-07 11:15 | XMS_ITS | Encounter Summary ---
Author Organization [facility] Address [address] [place] [address] Care Team Providers Care Child Development Director Name Role Phone Unavailable Primary Care Provider Unavailabl e Encounter Details Date Type Department Care Team (Late st Contact Info) Description 08/21/2023 Abstract [facility] [address] [place] [address] Nolan Cortes DO [address] [place], [place] [address] Social History Tobacco Use Types Packs/Day Years [...]
--- OUTSIDE RECORDS SUMMARY | 2025-06-07 11:15 | XMS_ITS | Encounter Summary ---
Author Organization [facility] Address [address] [place] [address] Care Team Providers Care Field Agronomist Name Role Phone Unavailable Primary Care Provider Unavailabl e Encounter Details Date Type Department Care Team (Late st Contact Info) Description 07/04/2023 Abstract [facility] [address] [facility] [facility] [place] [address] Nolan Cortes DO [address] Jeffries, [place] [address] Social History Tobacco Use Types Packs/Day Years [...]
--- OUTSIDE RECORDS SUMMARY | 2025-06-07 11:15 | XMS_ITS | Encounter Summary ---
Author Organization [facility] Address [address] [place] [address] Care Team Providers Care Resource Teacher Name Role Phone Unavailable Primary Care Provider Unavailabl e Encounter Details Date Type Department Care Team (Late st Contact Info) Description 04/28/2024 Clinisync Result Encounter [facility] External Department Unsolicited Thomas Cortes, DO [address] [place] [address] Social History Tobacco Use Types [...] PM EDT Narrative 04/28/2024 1:19 PM EDT The [address] [address] Ultrasound Report Signed Patient: KIRA PURVIS MR#: [id number] : 1990 Acct:[id number] Age/Sex: 33 / F ADM Date: 04/27/24 Loc: US Attending Dr: Thomas Cortes D.O. Ordering Physician: Thomas Cortes D.O. Date of Service: 04/27/24 Procedure(s): US pelvis w/ transvaginal Accession Number(s): [id number] cc: Thomas Cortes D.O.; Physician,Non-Staff Nikky The [address] [address] Patient Name: KIRA PURVIS MRN: [facility]:[id number] date: 1990 Sex: F Assigned Patient Location: US Current Patient Location: Accession/Order Number: [id number] Exam Date: 04/27/2024 14:00 Report Date: 04/28/2024 [...] Signed By: 04/28/24 1319 DD/ 1316 TD/TT: Collar Baster: Procedure Note Radiology, Radiologist, MD - 04/28/[address] [address] Ultrasound Report Signed Patient: KIRA PURVIS LMR#: [id number] : 1990Acct:[id number] Age/Sex: 33 / FADM Date: 04/27/24 Loc: US Attending Dr: Thomas Cortes D.O. Ordering Physician: Thomas Cortes D.O. Date of Service: 04/27/24 Procedure(s): US pelvis w/ transvaginal Accession Number(s): [id number] cc: Thomas Cortes D.O.; Physician,Non-Staff Nikky The [address] [address] Patient Name: KIRA PURVIS MRN: [id number]:[id number] date: 1990 Sex: F Assigned Patient Location: US Current Patient Location: Accession/Order Number: [id number] Exam Date: 04/27/2024 14:00 Report Date: 04/28/2024 [...] M.D. Signed By:04/28/24 1319 DD/ 1316 TD/TT: Collar Baster: us Thomas Cortes DO [facility] Final Result documented in this encounter Visit Diagnoses Not on filedocumented in this encounter
--- OUTSIDE RECORDS SUMMARY | 2025-06-07 11:15 | XMS_ITS | Encounter Summary ---
Author Organization [facility] Address [address] [place] [address] Care Team Providers Care Manager Of Pharmacy Name Role Phone Unavailable Primary Care Provider Unavailabl e Encounter Details Date Type Department Care Team (Late st Contact Info) Description 11/26/2024 Clinisync Result Encounter [facility] External Department Unsolicited Thomas Cortes, DO [address] [facility] [place] [address] Social History Tobacco Use Types [...] AM EST Narrative 11/26/2024 9:37 [place] [address] Ultrasound Report Signed Patient: KIRA PURVIS MR#: [id number] : 1990 Acct:[id number] Age/Sex: 34 / F ADM Date: 11/26/24 Loc: US Attending Dr: Thomas Cortes D.O. Ordering Physician: Thomas Cortes D.O. Date of Service: 11/26/24 Procedure(s): US OB transvaginal Accession Number(s): [id number] cc: Thomas Cortes D.O.; Physician,Non-Staff Nikky [place] [address] Patient Name: KIRA PURVIS MRN: [id number] date: 1990 Sex: F Assigned Patient Location: US Current Patient Location: US Accession/Order Number: [id number] Exam Date: 11/26/2024 08:36 Report Date: 11/26/2024 [...] M.D. Signed By: 11/26/24 0937 DD/ TD/TT: Laborer [place]: Procedure Note Radiology, Radiologist, - 11/26/[address] [address] Ultrasound Report Signed Patient: KIRA PURVIS LMR#: [id number] : 1990Acct:[id number] Age/Sex: 34 / FADM Date: 11/26/24 Loc: US Attending Dr: Thomas Cortes D.O. Ordering Physician: Thomas Cortes D.O. Date of Service: 11/26/24 Procedure(s): US OB transvaginal Accession Number(s): [id number] cc: Thomas Cortes D.O.; Physician,Non-Staff Nikky The [place] [id number] Patient Name: KIRA PURVIS MRN: [id number] date: 1990 Sex: F Assigned Patient Location: US Current Patient Location: US Accession/Order Number: [id number] Exam Date: 11/26/2024 08:36 Report Date: 11/26/2024 [...] M.D. Signed By:11/26/24 0937 DD/ 0935 TD/TT: Laborer [place]: us Thomas Cortes DO [facility] Final Result documented in this encounter Visit Diagnoses Not on filedocumented in this encounter
--- OUTSIDE RECORDS SUMMARY | 2025-06-07 11:15 | XMS_ITS | Encounter Summary ---
Author Organization [facility] Address [address] [place] [address] Care Team Providers Care Munitions Handler Supervisor Name Role Phone Unavailable Primary Care Provider Unavailabl e Encounter Details Date Type Department Care Team (Late st Contact Info) Description 12/02/2024 Abstract [facility] [address] [place] [place] [address] Nolan Cortes DO [address] [place], [place] [address] Social History Tobacco Use Types Packs/Day Years [...]
--- OUTSIDE RECORDS SUMMARY | 2025-06-07 11:15 | XMS_ITS | Clinical Summary ---
Demographics Address [address] [place] [address] Mobile Phone Home Phone Email Address Email Address Preferred Language Romanian Marital Status Orthodoxy Affiliation Unknown Race White Ethnic Group Not or Lati no Author Organization [facility] tem Address [facility] [id number] [address] [place] [address] Support Name Relationship Address Phone Dariusz Purvis Emergency Contact [address] [place] [address] Sravani Villasenor Personal Relationship [address] [place] [address] Laura Cope Personal Relationship Unknown [phone] Care Team Providers Care Research And Development Engineer Name Role Phone Eli Azul MD [...] Date Gestational diabetes mellitu s (GDM) in third trimester controlled on oral hypoglycemic drug 03/23/2025 History of delivery 02/24/2023 Estimated Date of Delivery Comme nts Yes 06/24/2025 Based on last me nstrual period of 09/17/2024 Encounters Date Type Department Care Team Description 06/02/2025 9:30 AM EDT Telemedicine Maternal- Medicine at [facility] [address] [place] [address] Iman Hall APRN-PREMA Gestational diabetes mellitus (GDM) in third trimester controlled on oral hypoglycemic drug (Primary Dx) 06/02/2025 Travel 05/24/2025 Telephone Maternal- Medicine at [facility] [address] [place] [address] Rufina Hurd, TAINA 04/29/2025 Telephone Maternal- Medicine at [facility] [address] [place] [address] Rufina Hurd, TAINA 04/19/2025 10:30 AM EDT Telemedicine Maternal- Medicine at [facility] [address] [place] [address] Kenya Acosta, PA-C Gestational diabetes mellitus (GDM) in second trimester controlled on oral hypoglycemic drug (Primary Dx) 04/19/2025 Travel 04/19/2025 Telephone Maternal- Medicine at [facility] [address] [place] [address] Rufina Hurd, TAINA 04/01/2025 Telephone Maternal- Medicine at [facility] [address] [place] [address] Violet Lopez RN 03/23/2025 10:30 AM EDT Telemedicine Maternal- Medicine at [facility] [address] [place] [address] Iman Hall, AIRLINE LOUNGE RECEPTIONIST-PREMA Gestational diabetes mellitus (GDM) in second trimester controlled on oral hypoglycemic drug 03/23/2025 Travel 03/23/2025 Telephone Maternal- Medicine at [facility] [address] [place] [address] Rufina Hurd, TAINA 03/16/2025 Telephone Maternal- Medicine at [facility] [address] [place] [address] Violet Lopez RN 03/15/2025 Orders Only Maternal- Medicine at [facility] [address] [place] [address] Rufina Hurd, TAINA 03/08/2025 1:00 PM EDT Office Visit Maternal- Medicine at [facility] [address] [place] [address] Kenya Acosta PA-C Gestational diabetes mellitus (GDM) in second trimester controlled on oral hypoglycemic drug (Primary Dx) 03/08/2025 Travel 03/08/2025 Telephone Maternal- Medicine at [facility] [address] [place] [address] Rufina Hurd, TAINA from Last 3 Months Immunizations Immunization Administration [...] of Phone Billing Address Personal/Family Self 1990 [facility] [address] [facility] [address] [place] [address] [facility] Care Teams Research And Development Engineer Relationship Specialty Start Date End Date Eli Azul MD PCP - General Pediatrics 06/23/18
--- OUTSIDE RECORDS SUMMARY | 2025-06-07 11:15 | XMS_ITS | Encounter Summary ---
Author Organization [facility] Address [address] [place] [address] Care Team Providers Care Clam Shucker Name Role Phone Unavailable Primary Care Provider Unavailabl e Encounter Details Date Type Department Care Team (Late st Contact Info) Description 05/24/2025 Clinisync Result Encounter [facility] External Department Unsolicited Thomas Cortes, DO [address] [facility] [place] [address] Social History Tobacco Use Types [...] AM EDT Narrative 05/24/2025 7:02 AM EDT The [facility] [address] [place] [address] Ultrasound Report Signed Patient: KIRA PURVIS MR#: [id number] : 1990 Acct:[id number] Age/Sex: 34 / F ADM Date: 05/23/25 Loc: US Attending Dr: Thomas Cortes D.O. Ordering Physician: Thomas Cortes D.O. Date of Service: 05/23/25 Procedure(s): US OB BPP w non-stress Accession Number(s): [id number] cc: Thomas Cortes D.O.; Physician,Non-Staff [place] [id number] Patient Name: KIRA PURVIS MRN: [facility]:[id number] date: 1990 Sex: F Assigned Patient Location: [facility] Current Patient Location: Accession/Order Number: [id number] Exam Date: 05/24/2025 06:57 Report Date: 05/24/2025 [...] Peña M.D. 05/24/2025 6:59 AM Dictation Location: [place] [address] Electronically authenticated by: [id number] Y Date: 05/24/2025 06:59 Dictated By: Grace Peña M.D. Signed By: 05/24/2502 DD/ TD/TT: Display Mechanic: Procedure Note Radiology, Radiologist, - 05/24/2025 [place] [address] Ultrasound Report Signed Patient: KIRA PURVIS LMR#: [id number] : 1990Acct:[id number] Age/Sex: 34 / FADM Date: 05/23/25 Loc: US Attending Dr: Thomas Cortes D.O. Ordering Physician: Thomas Cortes D.O. Date of Service: 05/23/25 Procedure(s): US OB BPP w non-stress Accession Number(s): [id number] cc: Thomas Cortes D.O.; Physician,Non-Staff Nikky The [place] [id number] Patient Name: KIRA PURVIS MRN: [id number] date: 1990 Sex: F Assigned Patient Location: [facility] Current Patient Location: Accession/Order Number: [id number] Exam Date: 05/24/2025 06:57 Report Date: 05/24/2025 [...] Peña M.D. 05/24/2025 6:59 AM Dictation Location: [place] [address] Electronically authenticated by: [id number] Y Date: 506:59 Dictated By: Grace Peña M.D. Signed By:05/24/25 0702 DD/ 0659 TD/TT: Display Mechanic: us Thomas Sebastian DO [facility] Final Result documented in this encounter Visit Diagnoses Not on filedocumented in this encounter
--- OUTSIDE RECORDS SUMMARY | 2025-06-07 11:15 | XMS_ITS | Encounter Summary ---
Author Organization [facility] Address [address] [place] [address] Care Team Providers Care Hydrometer Calibrator Name Role Phone Unavailable Primary Care Provider Unavailabl e Encounter Details Date Type Department Care Team (Late st Contact Info) Description 08/08/2023 Clinisync Result Encounter [facility] External Department Unsolicited Thomas Cortes DO [address] [facility] [place] [address] Social History Tobacco Use Types [...] PM EDT Narrative 08/08/2023 3:08 PM EDT The [address] [address] Ultrasound Report Signed Patient: KIRA PURVIS MR#: [id number] : 1990 Acct:[id number] Age/Sex: 32 / F ADM Date: 09/28/23 Loc: US Attending Dr: Thomas Cortes D.O. Ordering Physician: Thomas Cortes D.O. Date of Service: 08/07/23 Procedure(s): US OB growth Accession Number(s): [id number] cc: Thomas Cortes D.O.; Physician,Non-Staff Nikky The [place] [address] Patient Name: KIRA PURVIS MRN: [facility]:[id number] date: 1990 Sex: F Assigned Patient Location: [facility] Current Patient Location: US Accession/Order Number: [id number] Exam Date: 08/07/2023 16:05 Report Date: 08/08/2023 [...] Signed By: 08/08/23 1511 DD/ 1508 TD/TT: Collection Manager: Procedure Note Radiology, Radiologist, - 08/08/2023 [place] [address] Ultrasound Report Signed Patient: KIRA PURVIS LMR#: [id number] : 1990Acct:[id number] Age/Sex: 32 / FADM Date: 08/07/23 Loc: US Attending Dr: Thomas Cortes D.O. Ordering Physician: Thomas Cortes D.O. Date of Service: 08/07/23 Procedure(s): US OB growth Accession Number(s): [id number] cc: Thomas Cortes D.O.; Physician,Non-Staff Nikky The [place] [address] Patient Name: KIRA PURVIS MRN: [id number] date: 1990 Sex: F Assigned Patient Location: [facility] Current Patient Location: US Accession/Order Number: [id number] Exam Date: 08/07/2023 16:05 Report Date: 08/08/2023 [...] M.D. Signed By:08/08/23 1511 DD/ 1508 TD/TT: Collection Manager: us Thomas Cortes DO [facility] Final Result documented in this encounter Visit Diagnoses Not on filedocumented in this encounter
--- OUTSIDE RECORDS SUMMARY | 2025-06-07 11:15 | XMS_ITS | Encounter Summary ---
Author Organization [facility] Address [address] [place] [address] Care Team Providers Care Wellness Manager Name Role Phone Unavailable Primary Care Provider Unavailabl e Encounter Details Date Type Department Care Team ([facility] st Contact Info) Description 06/05/2025 Abstract [facility] [address] [place] [address] Latonya Isidro, JARRED [address] [place] [address] Social History Tobacco Use Types Packs/Day Years [...]
--- OUTSIDE RECORDS SUMMARY | 2025-06-07 11:15 | XMS_ITS | Encounter Summary ---
Demographics Address [address] [place] [address] Mobile Phone Home Phone Email Address Email Address Preferred Language Malay Marital Status Nondenominational Affiliation Unknown Race White Ethnic Group Not or Lati no Author Organization [facility] [employer] tem Address [id number] [address] [place] [address] Support Name Relationship Address Phone Dariusz Purvis Emergency Contact [address] [place] [address] Sravani Jacklyn Personal Relationship [address] [place] [address] Laura Cope Personal Relationship Unknown [phone] Care Team Providers Care Foam Cutting Supervisor Name Role Phone Eli Azul MD Primary Care Provider + Encounter Details Date Type Department Care Team (Late st Contact Info) Description 05/24/2025 Telephone Maternal- Medicine at [facility] [address] [place] [phone] Rufina Hurd CMA Social History Tobacco Use [...] Hurd CMA - 05/24/2025 8:37 AM EDT CUSTOMER SUPPORT MANAGER CALLED PATIENT. NO ANSWER. LEFT VM ASKING PATIENT TO EMAIL US HER BLOOD GLUCOSE LOGS SO THATTHEY CAN BE REVIEWED BY OUR DIABETES TEAM. documented in this encounter Plan of Treatment Not on file documented as of this encounter Visit Diagnoses Not on filedocumented in this encounter Care Teams Foam Cutting Supervisor Relationship Specialty Start Date End Date Eli Azul MD PCP - General Pediatrics 06/23/18 documented as of this encounter
--- OUTSIDE RECORDS SUMMARY | 2025-06-07 11:15 | XMS_ITS | Encounter Summary ---
Author Organization [facility] Address [address] [place] [address] Care Team Providers Care Veterans Rehabilitation Counselor Name Role Phone Unavailable Primary Care Provider Unavailabl e Encounter Details Date Type Department Care Team (Late st Contact Info) Description 01/24/2025 Abstract [facility] [address] [facility] [place] [address] Nolan Cortes DO [address], [place] [address] Social History Tobacco Use Types Packs/Day Years [...]
--- OUTSIDE RECORDS SUMMARY | 2025-06-07 11:16 | XMS_ITS | Encounter Summary ---
Author Organization [facility] Address [address] [place] [address] Care Team Providers Care Stitch Burnisher Name Role Phone Unavailable Primary Care Provider Unavailabl e Encounter Details Date Type Department Care Team (Late st Contact Info) Description 04/24/2023 Abstract [facility] [address] [facility] [place] [address] Nolan Cortes DO [address], [place] [address] Social History Tobacco Use Types Packs/Day Years [...]
--- OUTSIDE RECORDS SUMMARY | 2025-06-07 11:16 | XMS_ITS | Encounter Summary ---
Author Organization [facility] Address [address] [place] [address] Care Team Providers Care Trimming Assembler Name Role Phone Unavailable Primary Care Provider Unavailabl e Encounter Details Date Type Department Care Team (Late st Contact Info) Description 05/20/2023 Abstract [facility] [address] [facility] [place] [address] Nolan Cortes DO [address], [place] [address] Social History Tobacco Use Types Packs/Day Years [...]
--- OUTSIDE RECORDS SUMMARY | 2025-06-07 11:16 | XMS_ITS | Encounter Summary ---
Author Organization [facility] Address [address] [facility] [place] [address] Care Team Providers Care Machine Sand Mixer Name Role Phone Unavailable Primary Care Provider Unavailabl e Encounter Details Date Type Department Care Team (Late st Contact Info) Description 06/11/2023 Abstract [facility] [address] [facility] [place] [id number] Kristan Fish PA [address] [facility] [address] [place], [facility] Social History Tobacco Use Types Packs/Day [...]
--- OUTSIDE RECORDS SUMMARY | 2025-06-07 11:16 | XMS_ITS | Encounter Summary ---
Author Organization [facility] Address [address] [place] [address] Care Team Providers Care Four Slide Machine Operator Name Role Phone Unavailable Primary Care Provider Unavailabl e Encounter Details Date Type Department Care Team (Late st Contact Info) Description 06/03/2025 Clinisync Result Encounter [facility] External Department Unsolicited Nolan Cortes, DO [address] [facility] [place] [address] Social History Tobacco Use Types [...] Procedure Name Priority Date/Time Associated Diagnosis Comments ALL CBC WITH AUTO DIFF Routine 06/03/2025 8:15 AM EDT documented in this encounter Results * (ABNORMAL) ALL CBC WITH AUTO DIFF (06/03/2025 8:15 AM EDT) [facility] WBC 11.8(H) 4.0 - 11.0 10 3/uL [facility] TBH RBC 3.04(L) 4.20 - 5.40 10 6/uL [facility] TB[facility] HGB 9.9(L) 12.0 - 16.0 g/dL [facility] TB[facility] HCT 29.5(L) 36.0 - 48.0 % [facility] MCV 97.0 81.0 - 99.0 fL TBH TB[facility] MCH 32.6 26.7 - 34.0 pg TBH [facility] MCHC 33.6 29.9 - 35.2 g/dL TB[facility] RDW 13.3 11.0 - 15.0 % [facility] PLT 125(L) 150 - 450 10 3/uL TB[facility] TB[facility] MPV 12.4 9.5 - 13.5 fL [facility] NEUTROPHILS PERCENT AUTO 84.9(H) 43.0 - 75.0 % [facility] LYMPHOCYTES PERCENT AUTO 7.5(L) 20.5 - 60.0 % [facility] MONOCYTES PERCENT AUTO 6.2 1.7 - 12.0 % [facility] EO % 0.7(L) 0.9 - 7.0 % [facility] BASOPHILS PERCENT AUTO 0.3 0.2 - 2.0 % [facility] IMMATURE GRANULOCYTES PCT AUTO 0.4 0.0 - 0.5 % [facility] NEUTROPHILS ABSOLUTE AUTO 10.0(H) 1.4 - 6.5 10 3/uL [facility] LYMPHOCYTES ABSOLUTE AUTO 0.9(L) 1.2 - 3.8 10 3/uL [facility] MONOCYTES ABSOLUTE AUTO 0.7 0.3 - 0.8 10 3/uL [facility] TBH EO # 0.1 0.0 - 0.7 10 3/uL [facility] BASOPHILS ABSOLUTE AUTO 0.0 0.0 - 0.1 10 3/uL [facility] IMMATURE GRANULOCYTES ABS AUTO 0.05(H) 0.00 - 0.03 10 3/uL [facility] 06/03/2025 8:15 AM EDT 06/03/2025 8:22 AM EDT Narrative [facility] - 06/03/2025 8:26 AM EDT us Nolan Siddiquio DO [facility] documented in this encounter Visit Diagnoses Not on filedocumented in this encounter
--- OUTSIDE RECORDS SUMMARY | 2025-06-07 11:16 | XMS_ITS | Encounter Summary ---
Demographics Address [address] [place] [address] Mobile Phone Home Phone Email Address Email Address Preferred Language Bengali Marital Status Sabianism Affiliation Unknown Race White Ethnic Group Not or Lati no Author Organization [facility] Address [id number] [address] [place] [address] Support Name Relationship Address Phone Dariusz Purvis Emergency Contact [address] [place] [address] Sravani Villasenor Personal Relationship [address] [place] [address] Laura Cope Personal Relationship Unknown [phone] Care Team Providers Care Mail List Librarian Name Role Phone Eli Azul MD Primary Care Provider + Encounter Details Date Type Department Care Team (Late st Contact Info) Description 02/07/2025 Orders Only Maternal- Medicine at [facility] [address] [place] [phone] Ref Prov, [place] [address] Social History Tobacco Use Types Packs/Day Years [...] 1:52 PM EST) Anatomical Region Laterality Modality OB-KNAPSACK SPRAYER Ultrasound us Not In System Ref Prov IMG US ORDERABLES Final R esult documented in this encounter Visit Diagnoses Not on filedocumented in this encounter Care Teams Mail List Librarian Relationship Specialty Start Date End Date Eli Azul MD PCP - General Pediatrics 06/23/18 documented as of this encounter
--- OUTSIDE RECORDS SUMMARY | 2025-06-07 11:16 | XMS_ITS | Encounter Summary ---
Author Organization [facility] Address [address] [place] [address] Care Team Providers Care Animal Anatomy Teacher Name Role Phone Unavailable Primary Care Provider Unavailabl e Encounter Details Date Type Department Care Team (Late st Contact Info) Description 04/21/2023 Abstract [facility] [address] [facility] [place] [address] Nolan Cortes DO [address], [place] [address] Social History Tobacco Use Types Packs/Day Years [...]
--- OUTSIDE RECORDS SUMMARY | 2025-06-07 11:16 | XMS_ITS | Encounter Summary ---
Author Organization [facility] Address [address] [place] [address] Care Team Providers Care Fence Erector Name Role Phone Unavailable Primary Care Provider Unavailabl e Encounter Details Date Type Department Care Team (Late st Contact Info) Description 05/23/2025 Abstract [facility] [address] [facility] [place] [address] Nolan Cortes DO [address], [place] [address] Social History Tobacco Use Types Packs/Day Years [...]
--- OUTSIDE RECORDS SUMMARY | 2025-06-07 11:16 | XMS_ITS | Clinical Summary ---
Author Organization [facility] Healthcare Address [address] [place] [address] Care Team Providers [facility] Research [facility] Director Name Role Phone Unavailable Primary Care Provider Unavailabl e Allergies No known active allergies Medications aspirin 81 MG EC tablet Take 81 mg by mouth Daily Active Alcohol Swabs (Alcohol Prep Pad) 70 % padsIndications :Gestational diabetes mellitus (GDM), antepartum, gestational diabetes method of control unspecified ([facility]),[place] [facility] glucose tolerance test Apply 1 Pad topically Daily Use four times daily to check FSBS. 150 each 3 01/25/20 25 025 Discontinued MV & Min w/FA-DHA ( Adult Gummy/DHA/FA) 0.4-25 MG chewable tablet Chew 1 each Daily 12/30/19 25 025 Discontinued Blood Glucose Monitoring Suppl (Accu-Chek Guide Me) w/Device kitIndications: Gestational diabetes mellitus (GDM), antepartum, gestational diabetes method of control unspecified ([facility]),[place] [facility] glucose tolerance test USE TO CHECK BLOOD GLUCOSE IN THE MORNING PRIOR TO BREAKFAST AND ONE HOUR AFTER EACH MEAL FOR A TOTAL OF FOUR TIMES DAILY 1 kit 02/22/20 25 025 Discontinued metFORMIN, OSM, (Fortamet) 1000 MG 24 hr tablet Take 1,000 mg by mouth in the evening. Take with meals Do not crush, chew, or split. 025 Discontinued Active Problems Problem Noted Date Diagnosed Date Benign essential hypertensio n in obstetric context ([facility]) 04/18/2023 Exposure to cat feces 04/18/2023 Gestational diabetes ([facility]) 04/18/2023 Nausea 04/18/2023 History of delivery 02/24/2023 Encounters Date Type Department Care Team Description 06/07/2025 9:40 AM [place] [phone] Thomas Forman, DO Throbbing headache; Encounter for visit ([facility]) 06/05/2025 Abstract [facility] [place] [address] [place] [phone] Latonya Isidro CNM 06/04/2025 Clinisync Result Encounter NOMS External Department Unsolicited Sebastian, Thomas, DO 06/03/2025 Clinisync Result Encounter NOMS External Department Unsolicited Sebastian, Thomas, DO 06/02/2025 Clinisync Result Encounter NOMS External Department Unsolicited Sebastian, Thomas, DO 05/31/2025 10:50 AM ED[place] [address] Kristan Fish PA Third trimester ([facility]); 36 weeks gestation of ([facility]) 05/31/2025 Bamboo [place] [address] Kristan Fish PA 05/31/2025 Travel 05/30/2025 Clinisync Result Encounter NOMS External Department Unsolicited Sebastian, Thomas, DO 05/26/2025 Clinisync Result Encounter NOMS External Department Unsolicited Sebastian, Thomas, DO 05/25/2025 Clinisync Result Encounter NOMS External Department Unsolicited Sebastian, Thomas, DO 05/24/2025 8:40 AM ED[place] [address] Kristan Fish PA Third trimester ([facility]); 35 weeks gestation of ([facility]); induced hypertension, antepartum ([facility]) 05/24/2025 Clinisync Result Encounter NOMS External Department Unsolicited Thomas Forman, DO 05/23/2025 Travel 05/23/2025 Telephone [facility] [place] [facility] [address] [place] [phone] Danay OrtegaRADHA 05/23/2025 Abstract [facility] [place] [facility] [address] [place] [phone] Thomas Forman, DO 05/23/2025 Abstract [facility] [place] [facility] [address] [place] [address] Thomas Forman, DO 05/17/2025 11:40 AM EDT Routine [facility] [place] [facility] [address] [place] [phone] Thomas Forman, DO Third trimester ([facility]); 34 weeks gestation of ([facility]); Gestational diabetes mellitus (GDM), antepartum, gestational diabetes method of control unspecified ([facility]) 05/17/2025 Bamboo flowsheet [facility] [place] [facility] [address] [place] [phone] Thomas Forman, DO 05/16/2025 Clinisync Result Encounter NOMS External Department Unsolicited Thomas Forman, DO 05/09/2025 Clinisync Result Encounter NOMS External Department Unsolicited Thomas Forman, DO 05/02/2025 10:50 AM EDT Routine [facility] [place] [facility] [address] [place] [phone] Kristan Fish PA 32 weeks gestation of ([facility]); Third trimester ([facility]) 05/02/2025 Clinisync Result Encounter NOMS External Department Unsolicited Thomas Forman, DO 05/02/2025 Bamboo flowsheet [facility] [place] [facility] [address] [place] [phone] Kristan Fish PA 04/25/2025 Clinisync Result Encounter NOMS External Department Unsolicited Thomas Forman, DO 04/18/2025 1:00 PM ED[place] [address] Thomas Forman, DO 30 weeks gestation of ([facility]); Third trimester ([facility]) 04/18/2025 Clinisync Result Encounter NOMS External Department Unsolicited Thomas Fomran, DO 04/18/2025 Bamboo flowsheet [facility] [facility] [place] [address] Thomas Forman, DO 04/11/2025 Clinisync Result Encounter NOMS External Department Unsolicited Thomas Forman, DO 04/11/2025 Travel 04/06/2025 [place] [address] Thomas Forman, 04/05/2025 1:50 PM ED[place] [address] Thomas Forman, DO Third trimester ([facility]); 28 weeks gestation of ([facility]); Gestational diabetes mellitus (GDM), antepartum, gestational diabetes method of control unspecified ([facility]); H/O: hypertension 04/05/2025 [place] [address] Thomas Forman, DO 03/14/2025 1:50 PM ED[place] [address] Thomas Forman, DO Second trimester ([facility]); 25 weeks gestation of ([facility]) 03/14/2025 Bamboo flowsheet [place] [address] Thomas Forman DO 03/08/2025 Telephone [facility] [address] [place] [address] Suze Hendrix MA from Last 3 [...] (315 lb) 06/07/2025 10:29 AM EDT Height 170.2 cm (5' 7 ) 09/09/2023 1:05 PM EDT Body Mass Index 49.34 09/09/2023 1:05 PM EDT Plan of Treatment Not on file Procedures Procedure Name Priority Date/Time Associated Diagnosis Comments ALL CBC WITH AUTO DIFF Routine 06/04/2025 6:40 AM EDT ALL CBC WITH AUTO DIFF Routine 06/03/2025 8:15 AM EDT TBH DRUG SCREEN RAPID (URINE) Routine 06/02/2025 4:35 PM EDT TBH URINE T PROTEIN CREAT RATIO Routine 06/02/2025 4:35 PM EDT MHPT FIBRINOGEN Routine 06/02/2025 3:50 PM EDT CCF APTT Routine 06/02/2025 3:50 PM EDT SRMCOH PROTHROMBIN TIME INR W/O COUM Routine 06/02/2025 3:50 PM EDT CCF ALT Routine 06/02/2025 3:50 PM EDT CCF AST Routine 06/02/2025 3:50 PM EDT ALL URIC ACID Routine 06/02/2025 3:50 PM EDT TBH CREATININE Routine 06/02/2025 3:50 PM EDT ALL BUN Routine 06/02/2025 3:50 PM EDT ALL CBC WITH AUTO DIFF Routine 06/02/2025 3:50 PM EDT POCT URINALYSIS DIPSTICK Routine 05/31/2025 11:08 AM EDT Third trimester ([facility]) US OB BPP W NON-STRESS 05/30/2025 3:41 PM EDT US OB BPP W NON-STRESS 05/26/2025 4:48 PM EDT US OB GROWTH 05/25/2025 9:12 AM EDT POCT URINALYSIS DIPSTICK Routine 05/24/2025 9:13 AM EDT Third trimester ([facility]) US OB BPP W NON-STRESS 05/24/2025 6:59 AM EDT US OB BPP W NON-STRESS 05/16/2025 11:00 PM EDT US OB BPP W NON-STRESS 05/09/2025 3:51 PM EDT US OB BPP W NON-STRESS 05/02/2025 4:30 PM EDT POCT URINALYSIS DIPSTICK Routine 05/02/2025 11:00 AM EDT 32 weeks gestation of ([facility]) Third trimester ([facility]) US OB BPP W NON-STRESS 04/25/2025 9:36 PM EDT US OB BPP W NON-STRESS 04/18/2025 4:07 PM EDT POCT URINALYSIS DIPSTICK Routine 04/18/2025 1:14 PM EDT 30 weeks gestation of ([facility]) Third trimester ([facility]) US OB BPP W NON-STRESS 04/11/2025 4:05 PM EDT POCT URINALYSIS DIPSTICK Routine 04/05/2025 2:19 PM EDT Third trimester ([facility]) from Last 3 Months Results * (ABNORMAL) ALL CBC WITH AUTO DIFF (06/04/2025 6:40 AM EDT) Only the most recent of3 resultswithin the time period is included. TBH WBC 10.9 4.0 - 11.0 10 3/uL TBH TBH RBC 2.75(L) 4.20 - 5.40 10 6/uL TBH TBH HGB 8.8(L) 12.0 - 16.0 g/dL TBH TBH HCT 26.8(L) 36.0 - 48.0 % TBH TBH MCV 97.5 81.0 - 99.0 fL TBH TBH MCH 32.0 26.7 - 34.0 pg TBH TBH MCHC 32.8 29.9 - 35.2 g/dL TBH TBH RDW 13.8 11.0 - 15.0 % TBH TBH PLT 123(L) 150 - 450 10 3/uL TBH TBH MPV 12.5 9.5 - 13.5 fL TBH NEUTROPHILS PERCENT AUTO 84.7(H) 43.0 - 75.0 % TBH LYMPHOCYTES PERCENT AUTO 10.6(L) 20.5 - 60.0 % TBH MONOCYTES PERCENT AUTO 3.7 1.7 - 12.0 % TBH TBH EO % 0.0(L) 0.9 - 7.0 % TBH BASOPHILS PERCENT AUTO 0.1(L) 0.2 - 2.0 % TBH IMMATURE GRANULOCYTES PCT AUTO 0.9(H) 0.0 - 0.5 % TBH NEUTROPHILS ABSOLUTE AUTO 9.2(H) 1.4 - 6.5 10 3/uL TBH LYMPHOCYTES ABSOLUTE AUTO 1.2 1.2 - 3.8 10 3/uL TBH MONOCYTES ABSOLUTE AUTO 0.4 0.3 - 0.8 10 3/uL TBH TBH EO # 0.0 0.0 - 0.7 10 3/uL TBH BASOPHILS ABSOLUTE AUTO 0.0 0.0 - 0.1 10 3/uL TBH IMMATURE GRANULOCYTES ABS AUTO 0.10(H) 0.00 - 0.03 10 3/uL TBH 06/04/2025 6:40 AM EDT 06/04/2025 6:46 AM EDT Narrative CLINISYNC - 06/04/2025 6:55 AM EDT Thomasshoaib Siddiquio DO CLINISYNC Final Result Performing Organization Address [facility] de Phone Number CLINISYNC [facility] * (ABNORMAL) TBH URINE T PROTEIN CREAT RATIO (06/02/2025 4:35 PM EDT) Pathologist [facility] TOTAL PROTEIN URINE RANDOM 13.9(H) <=11.9 mg/dL TBH CREATININE URINE RANDOM 16.82(L) 20.00 - 300.00 mg/dL TBH PROTEIN CREATININE RATIO URINE 0.83 TBH 06/02/2025 4:35 PM EDT 06/02/2025 5:02 PM EDT Narrative CLINISYNC - 06/02/2025 5:[address] [facility] Sebastian DO CLINISYNC Final Result Performing Organization Address [facility]/State/ZIP Co de Phone Number [facility] * TBH DRUG SCREEN RAPID (URINE) (06/02/2025 4:35 PM EDT) CANNABINOID SCREEN URINE NEGATIVE NEGATIVE TBH PHENCYCLIDINE SCREEN URINE NEGATIVE NEGATIVE TBH COCAINE SCREEN URINE NEGATIVE NEGATIVE TBH METHAMPHETAMINES SCREEN URINE NEGATIVE NEGATIVE TBH OPIATE SCREEN URINE NEGATIVE NEGATIVE TBH AMPHETAMINE SCREEN URINE NEGATIVE NEGATIVE TBH BENZODIAZEPINES SCREEN URINE NEGATIVE NEGATIVE TBH TRICYCLIC ANTIDEPRESSANT URINE NEGATIVE NEGATIVE TBH METHADONE SCREEN URINE NEGATIVE NEGATIVE TBH BARBITURATES SCREEN URINE NEGATIVE NEGATIVE TBH OXYCODONE SCREEN URINE NEGATIVE NEGATIVE TBH BUPRENORPHINE SCREEN URINE NEGATIVE NEGATIVE TBH Comment: DRUG CLASS TEST SYSTEM CUT-OFF CONCENTRATIONS ARE FOLLOWS: AMP (Amphetamine): 500 ng/mL BAR (Barbiturates): 200 ng/mL BZO (Benzodiazepines): 150 ng/mL BUP (Buprenorphine): 10 ng/mL RONALD (Cocaine): 150 ng/mL mAMP (Methamphetamine): 500 ng/mL MTD (Methadone): 200 ng/mL OPI (Opiates): 100 ng/mL OXY (Oxycodone): 100 ng/mL PCP (Phencyclidine): 25 ng/mL THC (Cannabinoids): 50 ng/mL TCA (Trycyclic Antidepressants): 300 ng/mL 06/02/2025 4:35 PM EDT 06/02/2025 5:02 PM EDT Narrative CLINISYNC - 06/02/2025 5:22 PM EDT Thomas Siddiquio DO CLINISYNC Final Result [facility] * (ABNORMAL) TB CREATININE (06/02/2025 3:50 PM EDT) CREATININE 0.47(L) 0.55 - 1.02 mg/dL TBH TBH EGFR-AF CONGOLESE >60 >=60 mL/min/1.7 3m 2 TBH TBH EGFR-NON AF CONGOLESE >60 >=60 mL/min/1.7 3m 2 TBH 06/02/2025 3:50 PM EDT 06/02/2025 3:58 PM EDT Narrative CLINISYNC - 06/02/2025 4:22 PM EDT Thomas LO Final Result Performing Organization Address [facility] de Phone Number [facility] * [facility] PROTHROMBIN TIME INR W/O COUM (06/02/2025 3:50 PM EDT) PROTHROMBIN TIME 9.7 9.0 - 11.6 sec TB TB INR <0.93 TB Comment: DESIRED INR: 2.0-3.0 CONDITIONS NOT LISTED BELOW 2.5-3.5 FOR PROSTHETIC HEART VALVE REPLACEMENT 2.5-3.5 RECURRENT THROMBOSIS 06/02/2025 3:50 PM EDT 06/02/2025 3:58 PM EDT Narrative CLINISYNC - 06/02/2025 5:14 PM EDT Thomas LO Final Result Performing Organization Address [facility] de Phone Number [facility] * (ABNORMAL) MHPT FIBRINOGEN (06/02/2025 3:50 PM EDT) FIBRINOGEN 446(H) 200 - 400 mg/dL TB 06/02/2025 3:50 PM EDT 06/02/2025 3:58 PM EDT Narrative CLINISYNC - 06/02/2025 5:14 PM EDT Thomas LO Final Result Performing Organization Address [facility] de Phone Number [facility] * (ABNORMAL) CCF AST (06/02/2025 3:50 PM EDT) ASPARTATE AMINO TRANSFERASE 13(L) 15 - 37 U/L TB 06/02/2025 3:50 PM EDT 06/02/2025 3:58 PM EDT Narrative CLINISYNC - 06/02/2025 4:22 PM EDT Thomas Sebastian DO CLINISYNC Final Result CLINISYNC TB * CCF APTT (06/02/2025 3:50 PM EDT) PARTIAL THROMBOPLASTIN TIME 23.6 22.3 - 36.2 sec TB 06/02/2025 3:50 PM EDT 06/02/2025 3:58 PM EDT Narrative CLINISYNC - 06/02/2025 5:14 PM EDT Thomas Sebastian DO CLINISYNC Final Result CLINISYNC TB * CCF ALT (06/02/2025 3:50 PM EDT) ALANINE AMINOTRANSFERASE 15 14 - 59 U/L TB 06/02/2025 3:50 PM EDT 06/02/2025 3:58 PM EDT Narrative CLINISYNC - 06/02/2025 4:22 PM EDT Thomas Hamzio DO CLINISYNC Final Result Performing Organization Address [facility]/ZIP Co de Phone Number CLINISYNC TB * ALL URIC ACID (06/02/2025 3:50 PM EDT) URIC ACID 3.7 2.6 - 6.0 mg/dL TB 06/02/2025 3:50 PM EDT 06/02/2025 3:58 PM EDT Narrative CLINISYNC - 06/02/2025 4:22 PM EDT Thomas Sebastian DO CLINISYNC Final Result CLINISYNC TB * ALL BUN (06/02/2025 3:50 PM EDT) BLOOD UREA NITROGEN 7.0 7.0 - 18.0 mg/dL TB 06/02/2025 3:50 PM EDT 06/02/2025 3:58 PM EDT Narrative CLINISYNC - 06/02/2025 4:22 PM EDT us Thomas Hamzio DO CLINISYNC Final Result [facility] * (ABNORMAL) POCT urinalysis dipstick manually resulted [...] Positive Urine 05/31/2025 11:0 8 AM EDT us Kristan RUBIO POINT OF CARE TEST ENTER/EDIT OR DERABLES Final Result * US OB BPP W NON-STRESS (05/30/2025 3:41 PM EDT) Only the most recent of9 resultswithin the time period is included. Anatomical Region Laterality Modality Other 05/30/2025 3:41 PM EDT Narrative 05/30/2025 3:44 PM EDT The [address] [address] Ultrasound Report Signed Patient: CHARLENE PURVIS MR#: [id number] : 1990 Acct:[id number] Age/Sex: 34 / F ADM Date: 05/30/25 Loc: [facility] 250-[address]: Thomas Forman D.O. Ordering Physician: Thomas Forman D.O. Date of Service: 05/30/25 Procedure(s): US OB BPP w non-stress Accession Number(s): [id number] cc: Thomas Forman D.O.; Physician,Non-Staff [facility] The [place] [id number] Patient Name: CHARLENE PURVIS MRN: [id number] date: 1990 Sex: F Assigned Patient Location: [facility] Current Patient Location: [facility] Accession/Order Number: [id number] Exam Date: 05/30/2025 15:40 Report Date: 05/30/2025 15:41 At the request of: THOMAS FORMAN DO Procedure: US OB BPP w non-stress Biophysical profile. Reason for exam: Gestational diabetes COMPARISON: BPP 05/26/2025 TECHNIQUE: Transabdominal imaging of the gravid uterus was obtained. FINDINGS: The mass communications professor reports a BPP of 8 out of 8. BHAVANI is normal at 11 cm. heart rate 138 bpm. US/US OB BPP w non-stress IMPRESSION: BPP 8 out of 8. Impression dictated by: Jacinto Rivas Jr., D.O. 05/30/2025 3:41 PM Dictation Location: [place] [address] Electronically authenticated by: [id number] Y Date: 05/30/2025 15:41 Dictated By: Jacinto Rivas M.D. Signed By: 05/30/25 1544 DD/ 1541 TD/TT: Supervisor Laboratory Animal Facility: Procedure Note Radiology, Radiologist, - 05/30/2025 [place] [address] Ultrasound Report Signed Patient: CHARLENE PURVIS LMR#: [id number] : 1990Acct:[id number] Age/Sex: 34 / FADM Date: 05/30/25 Loc: [facility] 250-[address]: Thomas Forman D.O. Ordering Physician: Thomas Forman D.O. Date of Service: 05/30/25 Procedure(s): US OB BPP w non-stress Accession Number(s): [id number] cc: Thomas Forman D.O.; Physician,Non-Staff [facility] [address] [address] Patient Name: CHARLENE PURVIS MRN: [facility]:[id number] date: 1990 Sex: F Assigned Patient Location: [facility] Current Patient Location: [facility] Accession/Order Number: [id number] Exam Date: 05/30/2025 15:40 Report Date: 05/30/2025 15:41 At the request of: THOMAS FORMAN DO Procedure: US OB BPP w non-stress Biophysical profile. Reason for exam: Gestational diabetes COMPARISON: BPP 05/26/2025 TECHNIQUE: Transabdominal imaging of the gravid uterus was obtained. FINDINGS: The mass communications professor reports a BPP of 8 out of 8. BHAVANI is normal at11 cm. heart rate 138 bpm. US/US OB BPP w non-stress IMPRESSION: BPP 8 out of 8. Impression dictated by: Jacinto Rivas Jr., D.O. 05/30/2025 3:41 PM Dictation Location: [place] [address] Electronically authenticated by: [id number] Y Date: 5:41 Dictated By: Jacinto Rivas M.D. Signed By:05/30/25 1544 DD/ 1541 TD/TT: Supervisor Laboratory Animal Facility: us Thomas Forman DO CLINISYNC IMAGING Final Result * US OB GROWTH (05/25/2025 9:12 AM EDT) Anatomical Region Laterality Modality Other 05/25/2025 9:12 AM EDT Narrative 05/25/2025 9:15 AM EDT [address] [address] Ultrasound Report Signed Patient: CHARLENE PURVIS MR#: [id number] : 1990 Acct:[id number] Age/Sex: 34 / F ADM Date: 05/16/25 Loc: US Attending Dr: Thomas Forman D.O. Ordering Physician: Thomas Forman D.O. Date of Service: 05/16/25 Procedure(s): US OB growth Accession Number(s): [id number] cc: Thomas Forman D.O.; Physician,Non-Staff [facility] [place] [address] Patient Name: CHARLENE PURVIS MRN: [id number] date: 1990 Sex: F Assigned Patient Location: US Current Patient Location: Accession/Order Number: [id number] Exam Date: 05/25/2025 09:01 Report Date: 05/25/2025 09:12 At the request of: THOMAS FORMAN DO Procedure: US OB growth ULTRASOUND OB [...] Peña M.D. 05/25/2025 9:12 AM Dictation Location: [place] [address] Electronically authenticated by: [id number] Y Date: 05/25/2025 09:12 Dictated By: Grace Peña M.D. Signed By: 05/25/25914 DD/ 1 TD/TT: Supervisor Laboratory Animal Facility: Procedure Note Radiology, Radiologist, - 05/25/2025 [place] [address] Ultrasound Report Signed Patient: CHARLENE PURVIS LMR#: [id number] : 1990Acct:[id number] Age/Sex: 34 / FADM Date: 05/16/25 Loc: US Attending Dr: Thomas Forman D.O. Ordering Physician: Thomas Forman D.O. Date of Service: 05/16/25 Procedure(s): US OB growth Accession Number(s): [id number] cc: Thomas Forman D.O.; Physician,Non-Staff [facility] [place] [address] Patient Name: CHARLENE PURVIS MRN: [facility]:[id number] date: 1990 Sex: F Assigned Patient Location: Current Patient Location: Accession/Order Number: [id number] Exam Date: 05/25/2025 09:01 Report Date: 05/25/2025 09:12 At the request of: THOMAS FORMAN DO Procedure: US OB growth ULTRASOUND OB [...] Peña M.D. 05/25/2025 9:12 AM Dictation Location: [place] [address] Electronically authenticated by: [id number] Y Date: 9:12 Dictated By: Grace Peña M.D. Signed By:05/25/25914 DD/ 1 TD/TT: Supervisor Laboratory Animal Facility: Thomas Forman DO CLINISYNC IMAGING Final Result from Last 3 Months Insurance
--- OUTSIDE RECORDS SUMMARY | 2025-06-07 11:16 | XMS_ITS | Encounter Summary ---
Author Organization [facility] Address [address] [place] [address] Care Team Providers Care Traffic Engineer Name Role Phone Unavailable Primary Care Provider Unavailabl e Encounter Details Date Type Department Care Team (Late st Contact Info) Description 03/07/2025 Abstract [facility] [address] [address] Nolan Cortes DO [address], [place] [address] Social History Tobacco Use Types Packs/Day Years [...]
--- OUTSIDE RECORDS SUMMARY | 2025-06-07 11:16 | XMS_ITS | Encounter Summary ---
Author Organization [facility] Address [address] [place] [address] Care Team Providers Care Back Hanger Name Role Phone Unavailable Primary Care Provider Unavailabl e Encounter Details Date Type Department Care Team (Late st Contact Info) Description 04/14/2023 Abstract [facility] [address] [address] Nolan Cortes DO [address] [place] [address] Social History Tobacco Use Types Packs/Day Years [...]
--- OUTSIDE RECORDS SUMMARY | 2025-06-07 11:16 | XMS_ITS | Encounter Summary ---
Author Organization [facility] Address [address] [place] [address] Care Team Providers Care Director Industrial Name Role Phone Unavailable Primary Care Provider Unavailabl e Encounter Details Date Type Department Care Team (Late st Contact Info) Description 06/02/2025 Clinisync Result Encounter [facility] External Department Unsolicited Nolan Cortes, DO [address] [facility] [place] [address] Social History Tobacco Use Types [...] Procedure Name Priority Date/Time Associated Diagnosis Comments TBH URINE T PROTEIN CREAT RATIO Routine 06/02/2025 4:35 PM EDT TBH DRUG SCREEN RAPID (URINE) Routine 06/02/2025 4:35 PM EDT TBH CREATININE Routine 06/02/2025 3:50 PM EDT [facility] PROTHROMBIN TIME INR W/O COUM Routine 06/02/2025 3:50 PM EDT MHPT FIBRINOGEN Routine 06/02/2025 3:50 PM EDT [facility] AST Routine 06/02/2025 3:50 PM EDT [facility] APTT Routine 06/02/2025 3:50 PM EDT [facility] ALT Routine 06/02/2025 3:50 PM EDT ALL URIC ACID Routine 06/02/2025 3:50 PM EDT ALL CBC WITH AUTO DIFF Routine 06/02/2025 3:50 PM EDT ALL BUN Routine 06/02/2025 3:50 PM EDT documented in this encounter Results * [facility] DRUG SCREEN RAPID (URINE) (06/02/2025 4:35 PM EDT) Pathologist [facility] CANNABINOID SCREEN URINE NEGATIVE NEGATIVE TBH PHENCYCLIDINE [...] Narrative CLINISYNC - 06/02/2025 5:22 PM EDT us Nolan Sebastian DO CLINISYNC Final Result CLINIS[facility]NC TB * (ABNORMAL) TBH URINE T PROTEIN CREAT RATIO (06/02/2025 4:35 PM EDT) TOTAL PROTEIN URINE RANDOM 13.9(H) <=11.9 mg/dL TBH CREATININE URINE RANDOM 16.82(L) 20.00 - 300.00 mg/dL TBH PROTEIN CREATININE RATIO URINE 0.83 TBH 06/02/2025 4:35 PM EDT 06/02/2025 5:02 PM EDT Narrative CLINISYNC - 06/02/2025 5:21 PM EDT us Nolan Sebastian DO CLINISYNC Final Result Performing Organization Address [facility]/ZIP Co de Phone Number CLINISYNC TB * (ABNORMAL) MHPT FIBRINOGEN (06/02/2025 3:50 PM EDT) FIBRINOGEN 446(H) 200 - 400 mg/dL TBH 06/02/2025 3:50 PM EDT 06/02/2025 3:58 PM EDT Narrative CLINISYNC - 06/02/2025 5:14 PM EDT us Nolan Siddiquio DO CLINISYNC Final Result Performing Organization Address [facility]/ZIP Co de Phone Number CLINISYNC TB * [facility] APTT (06/02/2025 3:50 PM EDT) PARTIAL THROMBOPLASTIN TIME 23.6 22.3 - 36.2 sec TBH 06/02/2025 3:50 PM EDT 06/02/2025 3:58 PM EDT Narrative CLINISYNC - 06/02/2025 5:14 PM EDT Nolan Sebastian DO CLINISYNC Final Result CLINISYNC TB * [facility] PROTHROMBIN TIME INR W/O COUM (06/02/2025 3:50 PM EDT) PROTHROMBIN TIME 9.7 9.0 - 11.6 sec TBH TBH INR <0.93 TBH Comment: DESIRED INR: 2.0-3.0 CONDITIONS NOT LISTED BELOW 2.5-3.5 FOR PROSTHETIC HEART VALVE REPLACEMENT 2.5-3.5 RECURRENT THROMBOSIS 06/02/2025 3:50 PM EDT 06/02/2025 3:58 PM EDT Narrative CLINISYNC - 06/02/2025 5:14 PM EDT [employer] Sebastain DO CLINISYNC Final Result CLINIS[facility]NC [facility] * [facility] ALT (06/02/2025 3:50 PM EDT) ALANINE AMINOTRANSFERASE 15 14 - 59 U/L TB 06/02/2025 3:50 PM EDT 06/02/2025 3:58 PM EDT Narrative CLINISYNC - 06/02/2025 4:22 PM EDT [employer] Sebastian DO CLINISYNC Final Result Performing Organization Address [facility]/ZIP Co de Phone Number CLINISYNC [facility] * (ABNORMAL) [facility] AST (06/02/2025 3:50 PM EDT) ASPARTATE AMINO TRANSFERASE 13(L) 15 - 37 U/L TB 06/02/2025 3:50 PM EDT 06/02/2025 3:58 PM EDT Narrative CLINISYNC - 06/02/2025 4:22 PM EDT Nolan Sebastian DO CLINISYNC Final Result Performing Organization Address [facility]/ZIP Co de Phone Number CLINIS[facility]NC [facility] * ALL URIC ACID (06/02/2025 3:50 PM EDT) URIC ACID 3.7 2.6 - 6.0 mg/dL TB 06/02/2025 3:50 PM EDT 06/02/2025 3:58 PM EDT Narrative CLINISYNC - 06/02/2025 4:22 PM EDT Nolan Sebastian DO CLINISYNC Final Result Performing Organization Address [facility]/ZIP Co de Phone Number [facility] * (ABNORMAL) TBH CREATININE (06/02/2025 3:50 PM EDT) CREATININE 0.47(L) 0.55 - 1.02 mg/dL TBH TBH EGFR-AF BELIZEAN >60 >=60 mL/min/1.7 3m 2 TBH TBH EGFR-NON AF BELIZEAN >60 >=60 mL/min/1.7 3m 2 TBH 06/02/2025 3:50 PM EDT 06/02/2025 3:58 PM EDT Narrative CLINISYNC - 06/02/2025 4:22 PM EDT Nolan Sebastian DO CLINISYNC Final Result Performing Organization Address [facility]/ZIP Co de Phone Number CLINISYNC TB * ALL BUN (06/02/2025 3:50 PM EDT) BLOOD UREA NITROGEN 7.0 7.0 - 18.0 mg/dL TB 06/02/2025 3:50 PM EDT 06/02/2025 3:58 PM EDT Narrative CLINISYNC - 06/02/2025 4:22 PM EDT Nolan Sebastian DO CLINISYNC Final Result Performing Organization Address City/[facility]/ZIP Co de Phone Number CLINISYMN TB * (ABNORMAL) ALL CBC WITH AUTO DIFF (06/02/2025 3:50 PM EDT) TB WBC 6.5 4.0 - 11.0 10 3/uL TBH TB RBC 3.74(L) 4.20 - 5.40 10 6/uL TBH TBH HGB 11.9(L) 12.0 - 16.0 g/dL TBH TBH HCT 35.0(L) 36.0 - 48.0 % TBH TBH MCV 93.6 81.0 - 99.0 fL TBH TBH MCH 31.8 26.7 - 34.0 pg TBH TBH MCHC 34.0 29.9 - 35.2 g/dL TBH TBH RDW 13.2 11.0 - 15.0 % TBH TBH PLT 113(L) 150 - 450 10 3/uL TBH TBH MPV 12.6 9.5 - 13.5 fL TBH NEUTROPHILS PERCENT AUTO 58.5 43.0 - 75.0 % TBH LYMPHOCYTES PERCENT AUTO 28.6 20.5 - 60.0 % TBH MONOCYTES PERCENT AUTO 9.9 1.7 - 12.0 % TBH TBH EO % 2.2 0.9 - 7.0 % TBH BASOPHILS PERCENT AUTO 0.3 0.2 - 2.0 % TBH IMMATURE GRANULOCYTES PCT AUTO 0.5 0.0 - 0.5 % TBH NEUTROPHILS ABSOLUTE AUTO 3.8 1.4 - 6.5 10 3/uL TBH LYMPHOCYTES ABSOLUTE AUTO 1.9 1.2 - 3.8 10 3/uL TBH MONOCYTES ABSOLUTE AUTO 0.6 0.3 - 0.8 10 3/uL TBH TBH EO # 0.1 0.0 - 0.7 10 3/uL TBH BASOPHILS ABSOLUTE AUTO 0.0 0.0 - 0.1 10 3/uL TBH IMMATURE GRANULOCYTES ABS AUTO 0.03 0.00 - 0.03 10 3/uL TBH 06/02/2025 3:50 PM EDT 06/02/2025 3:58 PM EDT Narrative CLINISYNC - 06/02/2025 4:17 PM EDT us Nolan Siddiquio DO CLINISYNC Final Result CLINISYNC TBH documented in this encounter Visit Diagnoses Not on filedocumented in this encounter
--- OUTSIDE RECORDS SUMMARY | 2025-06-07 11:16 | XMS_ITS | Encounter Summary ---
Author Organization [facility] Address [address] [place] [address] Care Team Providers Care Loader Demolder Name Role Phone Unavailable Primary Care Provider Unavailabl e Encounter Details Date Type Department Care Team (Late st Contact Info) Description 05/30/2025 Clinisync Result Encounter [facility] External Department Unsolicited Thomas Cortes, DO [address] [facility] [place] [address] Social History Tobacco Use Types [...] EDT Narrative 05/30/2025 3:44 PM EDT The [address] [address] Ultrasound Report Signed Patient: KIRA PURVIS MR#: [id number] : 1990 Acct:[id number] Age/Sex: 34 / F ADM Date: 05/30/25 Loc: [facility] 250-[address]: Thomas Cortes D.O. Ordering Physician: Thomas Cortes D.O. Date of Service: 05/30/25 Procedure(s): US OB BPP w non-stress Accession Number(s): [id number] cc: Thomas Cortes D.O.; Physician,Non-Staff Nikky The [place] [address] Patient Name: KIRA PURVIS MRN: [facility]:[id number] date: 1990 Sex: F Assigned Patient Location: [facility] Current Patient Location: [facility] Accession/Order Number: [id number] Exam Date: 05/30/2025 15:40 Report Date: 05/30/2025 15:41 At the request of: THOMAS CORTES DO Procedure: US OB BPP w non-stress Biophysical profile. Reason for exam: Gestational diabetes COMPARISON: BPP 05/26/2025 TECHNIQUE: Transabdominal imaging of the gravid uterus was obtained. FINDINGS: The health education teacher reports a BPP of 8 out of 8. BHAVANI is normal at 11 cm. heart rate 138 bpm. US/US OB BPP w non-stress IMPRESSION: BPP 8 out of 8. Impression dictated by: Jacinto Rivas Jr., D.O. 05/30/2025 3:41 PM Dictation Location: [place] [address] Electronically authenticated by: [id number] Y Date: 05/30/2025 15:41 Dictated By: Jacinto Rivas M.D. Signed By: 05/30/25 1544 DD/ 1541 TD/TT: Cadd Manager: Procedure Note Radiology, Radiologist, MD - 05/30/2025 [place] [address] Ultrasound Report Signed Patient: KIRA PURVIS LMR#: [id number] : 1990Acct:[id number] Age/Sex: 34 / FADM Date: 05/30/25 Loc: [facility] 250-[address]: Thomas Cortes D.O. Ordering Physician: Thomas Cortes D.O. Date of Service: 05/30/25 Procedure(s): US OB BPP w non-stress Accession Number(s): [id number] cc: Thomas Cortes D.O.; Physician,Non-Staff Nikky [place] [address] Patient Name: KIRA PURVIS MRN: [id number] date: 1990 Sex: F Assigned Patient Location: [facility] Current Patient Location: [facility] Accession/Order Number: [id number] Exam Date: 05/30/2025 15:40 Report Date: 05/30/2025 15:41 At the request of: THOMAS CORTES DO Procedure: US OB BPP w non-stress Biophysical profile. Reason for exam: Gestational diabetes COMPARISON: BPP 05/26/2025 TECHNIQUE: Transabdominal imaging of the gravid uterus was obtained. FINDINGS: The health education teacher reports a BPP of 8 out of 8. BHAVANI is normal at11 cm. heart rate 138 bpm. US/US OB BPP w non-stress IMPRESSION: BPP 8 out of 8. Impression dictated by: Jacinto Rivas Jr., D.O. 05/30/2025 3:41 PM Dictation Location: [place] [address] Electronically authenticated by: [id number] Y Date: 5:41 Dictated By: Jacinto Rivas M.D. Signed By:05/30/25 1544 DD/ 1541 TD/TT: Cadd Manager: Thomas Cortes DO [facility] Final Result documented in this encounter Visit Diagnoses Not on filedocumented in this encounter
--- OUTSIDE RECORDS SUMMARY | 2025-06-07 11:16 | XMS_ITS | Encounter Summary ---
Author Organization [facility] Address [address] [place] [address] Care Team Providers Care Dials Supervisor Name Role Phone Unavailable Primary Care [...]
--- OUTSIDE RECORDS SUMMARY | 2025-06-07 11:16 | XMS_ITS | Encounter Summary ---
Author Organization [facility] Address [address] [facility] [place] [address] Care Team Providers Care Library Services Dean Name Role Phone Unavailable Primary Care Provider Unavailabl e Encounter Details Date Type Department Care Team (Late st Contact Info) Description 05/31/2025 Bamboo flowsheet [facility] [address] [facility] [place] [address] Kristan Fish PA [address] [facility] [address] [place], [place] [address] Social History Tobacco Use Types Packs/Day Years [...]
--- OUTSIDE RECORDS SUMMARY | 2025-06-07 11:16 | XMS_ITS | Encounter Summary ---
Author Organization [facility] Address [address] [place] [address] Care Team Providers Care Radio Communications Mechanician Name Role Phone Unavailable Primary Care Provider Unavailabl e Encounter Details Date Type Department Care Team (Late st Contact Info) Description 02/01/2025 Abstract [facility] [address] [facility] [place] [place] [address] Nolan Cortes DO [address], [place] [address] Social History Tobacco Use Types Packs/Day Years [...]
--- OUTSIDE RECORDS SUMMARY | 2025-06-07 11:16 | XMS_ITS | Encounter Summary ---
Author Organization [facility] Address [address] [place] [address] Care Team Providers Care Supervisor Knitting Name Role Phone Unavailable Primary Care Provider Unavailabl e Encounter Details Date Type Department Care Team (Late st Contact Info) Description 04/14/2023 Abstract [facility] [address] [facility] [place] [address] Nolan Cortes DO [address] [place] [address] Social History Tobacco Use Types Packs/Day Years [...]
--- OUTSIDE RECORDS SUMMARY | 2025-06-07 11:16 | XMS_ITS | Encounter Summary ---
Author Organization [facility] Address [address] [place] [address] Care Team Providers Care Plastering Supervisor Name Role Phone Unavailable Primary Care Provider Unavailabl e Encounter Details Date Type Department Care Team (Late st Contact Info) Description 05/26/2025 Clinisync Result Encounter NOMS External Department Unsolicited Thomas Cortes, DO [address] [facility] [place] [address] Social History Tobacco Use Types [...] PM EDT Narrative 05/26/2025 4:51 PM EDT The [address] [address] Ultrasound Report Signed Patient: KIRA PURVIS MR#: [id number] : 1990 Acct:[id number] Age/Sex: 34 / F ADM Date: 05/26/25 Loc: [facility] Attending Dr: Thomas Cortes D.O. Ordering Physician: Thomas Cortes D.O. Date of Service: 05/26/25 Procedure(s): US OB BPP w non-stress Accession Number(s): [id number] cc: Thomas Cortes D.O.; Physician,Non-Staff Nikky The [place] [id number] Patient Name: KIRA PURVIS MRN: [id number] date: 1990 Sex: F Assigned Patient Location: [facility] Current Patient Location: Accession/Order Number: [id number] Exam Date: 05/26/2025 16:46 Report Date: 05/26/2025 [...] OB BPP w non-stress IMPRESSION: Biophysical profile: 8 Impression dictated by: Marquis Maxwell M.D. 05/26/2025 4:48 PM Dictation Location: [place] [address] Electronically authenticated by: [id number] Y Date: 05/26/2025 16:48 Dictated By: Marquis Maxwell M.D. Signed By: 05/26/251650 DD/ 47 TD/TT: Flight Agent: Procedure Note Radiology, Radiologist, - 05/26/2025 [place] [address] Ultrasound Report Signed Patient: KIRA PURVIS LMR#: [id number] : 1990Acct:[id number] Age/Sex: 34 / FADM Date: 05/26/25 Loc: [facility] Attending Dr: Thomas Cortes D.O. Ordering Physician: Thomas Cortes D.O. Date of Service: 05/26/25 Procedure(s): US OB BPP w non-stress Accession Number(s): [id number] cc: Thomas Cortes D.O.; Physician,Non-Staff Nikky [place] [address] Patient Name: KIRA PURVIS MRN: [facility]:[id number] date: 1990 Sex: F Assigned Patient Location: [facility] Current Patient Location: Accession/Order Number: [id number] Exam Date: 05/26/2025 16:46 Report Date: 05/26/2025 [...] Maxwell M.D. 05/26/2025 4:48 PM Dictation Location: [place] [address] Electronically authenticated by: [id number] Y Date: 6:48 Dictated By: Marquis Maxwell M.D. Signed By:05/26/251650 DD/ 47 TD/TT: Flight Agent: Thomas Cortes DO [facility] Final Result documented in this encounter Visit Diagnoses Not on filedocumented in this encounter
--- OUTSIDE RECORDS SUMMARY | 2025-06-07 11:16 | XMS_ITS | Encounter Summary ---
Author Organization [facility] Address [address] [place] [address] Care Team Providers Care Security Incident Response Engineer Name Role Phone Unavailable Primary Care Provider Unavailabl e Encounter Details Date Type Department Care Team (Late st Contact Info) Description 01/27/2025 Abstract [facility] [address] [facility] [place] [address] Nolan Cortes DO [address], [place] [address] Social History Tobacco Use Types Packs/Day Years [...]
--- OUTSIDE RECORDS SUMMARY | 2025-06-07 11:16 | XMS_ITS | Encounter Summary ---
Author Organization [facility] Address [address] [place] [address] Care Team Providers Care Boring Machine Operator Vertical Name Role Phone Unavailable Primary Care Provider Unavailabl e Encounter Details Date Type Department Care Team (Late st Contact Info) Description 04/06/2025 Abstract [facility] [address] [facility] [place] [address] Nolan Cortes DO [address] [place], [place] [address] Social History Tobacco Use Types Packs/Day Years [...]
--- OUTSIDE RECORDS SUMMARY | 2025-06-07 11:16 | XMS_ITS | Encounter Summary ---
Author Organization [facility] Address [address] [place] [address] Care Team Providers Care Senior It Recruiter Name Role Phone Unavailable Primary Care Provider Unavailabl e Encounter Details Date Type Department Care Team (Late st Contact Info) Description 06/04/2025 Clinisync Result Encounter NOMS External Department Unsolicited Nolan Cortes, DO [address] [facility] [address] Social History Tobacco Use Types [...] AUTO DIFF Routine 06/04/2025 6:40 AM EDT documented in this encounter Results * (ABNORMAL) ALL CBC WITH AUTO DIFF (06/04/2025 6:40 AM EDT) TBH WBC 10.9 4.0 - 11.0 10 [...] Narrative CLINISYNC - 06/04/2025 6:55 AM EDT us Nolan Cortes DO [facility] documented in this encounter Visit Diagnoses Not on filedocumented in this encounter
--- OUTSIDE RECORDS SUMMARY | 2025-06-07 11:16 | XMS_ITS | Encounter Summary ---
Author Organization [facility] Address [address] [place] [address] Care Team Providers Care Flexible Shaft Winder Name Role Phone Unavailable Primary Care Provider Unavailabl e Encounter Details Date Type Department Care Team (Late st Contact Info) Description 04/18/2023 Abstract [facility] [address] [facility] [place] [address] Nolan Cortes DO [address] [place], [place] [address] Social History Tobacco Use Types Packs/Day Years [...]
--- OUTSIDE RECORDS SUMMARY | 2025-06-07 11:16 | XMS_ITS | Encounter Summary ---
Author Organization [facility] Address [address] [place] [address] Care Team Providers Care Documentation Spec Name Role Phone Unavailable Primary Care Provider Unavailabl e Encounter Details Date Type Department Care Team (Late st Contact Info) Description 04/22/2023 Abstract [facility] [address] [facility] [place] [address] Nolan Cortes DO [address], [place] [address] Social History Tobacco Use Types Packs/Day Years [...]
--- OUTSIDE RECORDS SUMMARY | 2025-06-07 11:16 | XMS_ITS | Encounter Summary ---
Author Organization [facility] Address [address] [place] [address] Care Team Providers Care Benefits Sales Consultant Name Role Phone Unavailable Primary Care Provider Unavailabl e Encounter Details Date Type Department Care Team (Late st Contact Info) Description 04/25/2023 Abstract [facility] [address] [facility] [place] [address] Nolan Cortes DO [address] [place], [place] [address] Social History Tobacco Use Types Packs/Day Years [...]
--- OUTSIDE RECORDS SUMMARY | 2025-06-07 11:17 | XMS_ITS | CCD ---
Author Organization [facility] Care Team Providers Care Weathercaster Name Role Phone PETRA ., DR WHITAKER [...] Admitting Unavailable Unavailable Primary Care Provider Addie Azul MD, Melony Sibley Primary Care Provider SEBASTIAN, NOLAN Attending Unavailable SEBASTIAN, NOLAN Attending Unavailable SEBASTIAN, NOLAN Attending Unavailable SEBASTIAN, NOLAN Attending Unavailable SEBASTIAN, NOLAN Attending Unavailable SEBASTIAN, NOLAN Attending Unavailable POLINA, KRISTAN Attending Unavailable SEBASTIAN, NOLAN Attending Unavailable POLINA, KRISTAN Attending Unavailable POLINA, KRISTAN Attending Unavailable ALEXANDRIA IRAHETA Attending Unavailable SEBASTIAN, NOLAN R Referring Unavailable GEETA, MELONY Sibley Primary Care Unavailabl e KENYA ACOSTA Attending Unavailable SEBASTIAN, NOLAN R Referring Unavailable GEETA, MELONY Sibley Primary Care Unavailabl e KAREEM CUMMINGS Attending Unavailable SEBASTIAN, NOLAN R Referring Unavailable GEETA, MELONY Sibley Primary Care Unavailabl e KENYA ACOSTA Attending Unavailable GEETA, MELONY Sibley Referring Unavailabl e GEETA, MELONY Primary [facility] UnavailKAREEM Ramirez Attending Unavailable GEETA, MELONY Referring Unavailabl e GEETA, MELONY Primary Care Unavailabl e Medications Current Medications Medication Drug [...] Me) w/Device kit (20 sources) Start: 02-21-2025 End: 06-07-2025 Blood Glucose Monitoring Sup pl (Accu-Chek Guide Me) w/Device kit Indications: Gestational diabetes mellitus (GDM), antepartum, gestational diabetes method of control unspecified (HHS-HCC) , Elevated glucose tolerance test USE TO CHECK BLOOD GLUCOSE IN THE MORNING PRIOR TO BREAKFAST AND ONE HOUR AFTER EACH MEAL FOR A TOTAL OF FOUR TIMES DAILY 1 kit 02/21/2025 06/07/2025 Discontinued Start: 02-21-2025 Blood Glucose Monitoring Suppl (Accu-Chek Guide Me) w/Device kit Indications: Gestational diabetes mellitus (GDM), antepartum, gestational diabetes method of control unspecified (HHS-HCC) , Elevated glucose tolerance test USE TO [...] blood-glucose meter (RELION MICRO GLUCOSE MONITOR) misc (15 sources) blood-glucose me ter (RELION MICRO GLUCOSE MONITOR) misc by miscellaneous route. Active isopropyl alcohol 0.7 ml/ml medicated pad (20 sources) Start: 01-24-2025 End: 06-07-2025 Alcohol Swabs (Alcohol Prep Pad) 70 % pads Indications: Gestational diabetes mellitus (GDM), antepartum, gestational diabetes method of control unspecified ([facility]-HCC) , Elevated glucose tolerance test Apply 1 Pad topically Daily Use four times daily to check FSBS. 150 each 3 01/24/2025 06/07/2025 Discontinued 24 hr metFORMIN hydrochloride 500 mg extended [...] with dinner 60 tablet 4 03/23/2025 Active End: 06-07-2025 take 1 tablet by mouth at mealtime, then take 1 tablet by mouth every twenty-four hours metFORMIN, OSM, (Fortamet) 1000 MG 24 hr tablet Take 1,000 mg by mouth in the evening. Take with meals Do not crush, chew, or split. 06/07/2025 Discontinued ondansetron 4 mg disintegrating oral tablet (20 [...] MG chewable tablet (20 sources) Start: 12-30-2024 End: 06-07-2025 MV & Min w/FA-DHA ( Adult Gummy/DHA/FA) 0.4-25 MG chewable tablet Chew 1 each Daily 12/30/2024 06/07/2025 Discontinued Start: 12-30-2024 MV & Min w/FA-DHA ( Adult Gummy/DHA/FA) 0.4- 25 MG chewable tablet Chew 1 each Daily [...] Discontinued (Other) vit calc,iron,folic ( VITAMIN ORAL) (15 sources) take 1 tablet by mouth in [...] sources) Dehydration; Translations: [Hypokalemia] Onset: 01-30-2023 Episodic Headache; including migraine (2 sources) Throbbing headache; Translations: [Throbbing headache] 06-07-2025 Episodic Hypertension complicating ; childbirth and the [...] specified counseling] Onset: 02-16-2025 02-16-2025 Episodic Diabetes or abnormal glucose tolerance complicating ; [...] WITH AUTO DIFFon BASOPHILS ABSOLUTE AUTO 0 [facility] Basophils/100 WBC (Bld) 0.1 % Low 0.2 - 2.0 % [facility] Eosinophils/100 WBC (Bld) 0 % Low 0.9 - 7.0 % [facility] Erythrocyte distribution width (RBC) [Ratio] 13.8 % 11.0 - 15.0 % [facility] Hematocrit (Bld) [Volume fraction] 26.8 % Low 36.0 - 48.0 % [facility] Hemoglobin (Bld) [Mass/Vol] 8.8 g/dL Low 12.0 - 16.0 g/dL [facility] IMMATURE GRANULOCYTES ABS AUTO 0.1 High [facility] Immature granulocytes/100 WBC (Bld) 0.9 % High 0.0 - 0.5 % [facility] Interpretation and review of laboratory results Abnormal [facility] LYMPHOCYTES ABSOLUTE AUTO 1.2 [facility] Lymphocytes/100 WBC (Bld) 10.6 % Low 20.5 - 60.0 % [facility] MCH (RBC) [Entitic mass] 32 pg 26.7 - 34.0 pg [facility] MCHC (RBC) [Mass/Vol] 32.8 g/dL 29.9 - 35.2 g/dL [facility] MCV (RBC) [Entitic vol] 97.5 fL 81.0 - 99.0 fL [facility] MONOCYTES ABSOLUTE AUTO 0.4 [facility] Monocytes/100 WBC (Bld) 3.7 % 1.7 - 12.0 % [facility] NEUTROPHILS ABSOLUTE AUTO 9.2 High [facility] Neutrophils/100 WBC (Bld) 84.7 % High 43.0 - 75.0 % [facility] Platelet mean volume (Bld) [Entitic vol] 12.5 fL 9.5 - 13.5 fL [facility] TBH EO # 0 [facility] PLT 123 Low [facility]H RBC 2.75 Low [facility] TB WBC 10.9 [facility] ALL CBC WITH AUTO DIFFon BASOPHILS ABSOLUTE AUTO 0 [facility] Basophils/100 WBC (Bld) 0.3 % 0.2 - 2.0 % [facility] Eosinophils/100 WBC (Bld) 0.7 % Low 0.9 - 7.0 % [facility] Erythrocyte distribution width (RBC) [Ratio] 13.3 % 11.0 - 15.0 % [facility] Hematocrit (Bld) [Volume fraction] 29.5 % Low 36.0 - 48.0 % [facility] Hemoglobin (Bld) [Mass/Vol] 9.9 g/dL Low 12.0 - 16.0 g/dL [facility] IMMATURE GRANULOCYTES ABS AUTO 0.05 High [facility] Immature granulocytes/100 WBC (Bld) 0.4 % 0.0 - 0.5 % [facility] Interpretation and review of laboratory results Abnormal [facility] LYMPHOCYTES ABSOLUTE AUTO 0.9 Low [facility] Lymphocytes/100 WBC (Bld) 7.5 % Low 20.5 - 60.0 % [facility] MCH (RBC) [Entitic mass] 32.6 pg 26.7 - 34.0 pg [facility] MCHC (RBC) [Mass/Vol] 33.6 g/dL 29.9 - 35.2 g/dL [facility] MCV (RBC) [Entitic vol] 97 fL 81.0 - 99.0 fL [facility] MONOCYTES ABSOLUTE AUTO 0.7 [facility] Monocytes/100 WBC (Bld) 6.2 % 1.7 - 12.0 % [facility] NEUTROPHILS ABSOLUTE AUTO 10 High [facility] Neutrophils/100 WBC (Bld) 84.9 % High 43.0 - 75.0 % [facility] Platelet mean volume (Bld) [Entitic vol] 12.4 fL 9.5 - 13.5 fL [facility] TBH EO # 0.[address] [facility] PLT [address] [facility] RBC 3.[address] [facility] WBC 11.8 High [facility] ALL CBC WITH AUTO DIFFon BASOPHILS ABSOLUTE AUTO 0 [facility] Basophils/100 WBC (Bld) 0.3 % 0.2 - 2.0 % [facility] Eosinophils/100 WBC (Bld) 2.2 % 0.9 - 7.0 % [facility] Erythrocyte distribution width (RBC) [Ratio] 13.2 % 11.0 - 15.0 % [facility] Hematocrit (Bld) [Volume fraction] 35 % Low 36.0 - 48.0 % [facility] Hemoglobin (Bld) [Mass/Vol] 11.9 g/dL Low 12.0 - 16.0 g/dL [facility] IMMATURE GRANULOCYTES ABS AUTO 0.03 [facility] Immature granulocytes/100 WBC (Bld) 0.5 % 0.0 - 0.5 % [facility] Interpretation and review of laboratory results Abnormal [facility] LYMPHOCYTES ABSOLUTE AUTO 1.9 [facility] Lymphocytes/100 WBC (Bld) 28.6 % 20.5 - 60.0 % [facility] MCH (RBC) [Entitic mass] 31.8 pg 26.7 - 34.0 pg [facility] MCHC (RBC) [Mass/Vol] 34 g/dL 29.9 - 35.2 g/dL [facility] MCV (RBC) [Entitic vol] 93.6 fL 81.0 - 99.0 fL [facility] MONOCYTES ABSOLUTE AUTO 0.6 [facility] Monocytes/100 WBC (Bld) 9.9 % 1.7 - 12.0 % [facility] NEUTROPHILS ABSOLUTE AUTO 3.8 [facility] Neutrophils/100 WBC (Bld) 58.5 % 43.0 - 75.0 % [facility] Platelet mean volume (Bld) [Entitic vol] 12.6 fL 9.5 - 13.5 fL [facility] TBH EO # 0.[address] [facility] PLT [address] [facility] RBC 3.[address] [facility] WBC 6.5 [facility] Urinalysis macro (dipstick) panel (U)on 05-31-2025 Bilirubin, UA Negative Negative - 4(70) +++ mg/dL [facility] Blood, UA Positive Negative - 50 Eliceo/mcL [facility] Comment on above: Trace Clarity, UA Clear [facility] Color, UA Yellow [facility] Glucose, UA Negative Negative - 2000(110) ++++ mg/dL [facility] Interpretation and review of laboratory results Abnormal [facility] Ketones, UA Positive Negative - 160(16) ++++ mg/dL [facility] Comment on above: 80mg/dL Leukocytes, UA Positive Negative - 500+++ Danielle/mcL [facility] Comment on above: small Nitrite, UA Negative Negative - Positive [facility] pH, UA 7 5 - 9 [facility] Protein, UA Positive Negative - 2000(20) ++++ mg/dL [facility] Comment on above: 30mg/dL Spec Grav, UA 1.015 1 - 1.03 [facility] Urobilinogen, UA 0.2 0.2 - 12 mg/dL [facility] US OB BPP W NON-STRESS on 05-30-2025 [place] [address] Ultrasound Report Signed Patient: CHARLENE PURVIS MR#: [id number] : 1990 Acct:[id number] Age/Sex: 34 / F ADM Date: 05/30/25 Loc: [facility] 250-[address]: Nolan Cortes D.O. Ordering Physician: Nolan Cortes D.O. Date of Service: 05/30/25 Procedure(s): US OB BPP w non-stress Accession Number(s): [id number] cc: Nolan Cortes D.O.; Physician,Non-Staff MTomas The [address] [address] Patient Name: CHARLENE PURVIS MRN: [facility]:[id number] date: 1990 Sex: F Assigned Patient Location: [facility] Current Patient Location: [facility] Accession/Order Number: [id number] Exam Date: 05/30/2025 15:40 Report Date: 05/30/2025 15:41 At the request of: NOLAN CORTES DO Procedure: US OB BPP w non-stress Biophysical profile. Reason for exam: Gestational diabetes COMPARISON: BPP 05/26/2025 TECHNIQUE: Transabdominal imaging of the gravid uterus was obtained. FINDINGS: The admitting counselor reports a BPP of 8 out of 8. BHAVANI is normal at 11 cm. heart rate 138 bpm. US/US OB BPP w non-stress IMPRESSION: BPP 8 out of 8. Impression dictated by: Jacinto Rivas Jr., D.O. 05/30/2025 3:41 PM Dictation Location: [place] [address] Electronically authenticated by: [id number] Y Date: 05/30/2025 15:41 Dictated By: Jacinto Rivas M.D. Signed By: 05/30/25 1544 DD/ 1541 TD/TT: Preschool Assistant Principal: [facility] Radiology, Radiologist, MD - 05/30/2025 The [place] [id number] Ultrasound Report Signed Patient: CHARLENE PURVIS MR#: [id number] : 1990 Acct:[id number] Age/Sex: 34 / F ADM Date: 05/30/25 Loc: [facility] 250-[address]: Nolan Cortes D.O. Ordering Physician: Nolan Cortes D.O. Date of Service: 05/30/25 Procedure(s): US OB BPP w non-stress Accession Number(s): [id number] cc: Nolan Cortes D.O.; Physician,Non-Staff [place] [place] [address] Patient Name: CHARLENE PURVIS MRN: [id number] date: 1990 Sex: F Assigned Patient Location: [facility] Current Patient Location: [facility] Accession/Order Number: [id number] Exam Date: 05/30/2025 15:40 Report Date: 05/30/2025 15:41 At the request of: NOLAN CORTES DO Procedure: US OB BPP w non-stress Biophysical profile. Reason for exam: Gestational diabetes COMPARISON: BPP 05/26/2025 TECHNIQUE: Transabdominal imaging of the gravid uterus was obtained. FINDINGS: The admitting counselor reports a BPP of 8 out of 8. BHAVANI is normal at 11 cm. heart rate 138 bpm. US/US OB BPP w non-stress IMPRESSION: BPP 8 out of 8. Impression dictated by: Jacinto Rivas Jr., D.O. 05/30/2025 3:41 PM Dictation Location: [place] [address] Electronically authenticated by: [id number] Y Date: 05/30/2025 15:41 Dictated By: Jacinto Rivas M.D. Signed By: 05/30/25 1544 DD/ 1541 TD/TT: Preschool Assistant Principal: [facility] Radiology Study observation (narrative) [facility] US OB BPP W NON-STRESS Ordered By: Radiologist Radiology on 05-30-2025 [facility] Work Phone: US OB BPP W NON-STRESS on 05-26-2025 [place] [address] Ultrasound Report Signed Patient: CHARLENE PURVIS MR#: [id number] : 1990 Acct:[id number] Age/Sex: 34 / F ADM Date: 05/26/25 Loc: [facility] Attending Dr: Nolan Cortes D.O. Ordering Physician: Nolan Cortes D.O. Date of Service: 05/26/25 Procedure(s): US OB BPP w non-stress Accession Number(s): [id number] cc: Nolan Cortes D.O.; Physician,Non-Staff [facility] The [address] [id number] Patient Name: CHARLENE PURVIS MRN: [facility]:[id number] date: 1990 Sex: F Assigned Patient Location: [facility] Current Patient Location: Accession/Order Number: [id number] Exam Date: 05/26/2025 16:46 Report Date: 05/26/2025 [...] Maxwell M.D. 05/26/2025 4:48 PM Dictation Location: [place] [address] Electronically authenticated by: [id number] Y Date: 05/26/2025 16:48 Dictated By: Marquis Maxwell M.D. Signed By: 05/26/25 165 DD/ TD/TT: Preschool Assistant Principal: [facility] Radiology, Radiologist, MD - 05/26/[address] [address] Ultrasound Report Signed Patient: CHARLENE PURVIS MR#: [id number] : 1990 Acct:[id number] Age/Sex: 34 / F ADM Date: 05/26/25 Loc: [facility] Attending Dr: Nolan Cortes D.O. Ordering Physician: Nolan Cortes D.O. Date of Service: 05/26/25 Procedure(s): US OB BPP w non-stress Accession Number(s): [id number] cc: Nolan Cortes D.O.; Physician,Non-Staff [place] [address] Patient Name: CHARLENE PURVIS MRN: [facility]:[id number] date: 1990 Sex: F Assigned Patient Location: [facility] Current Patient Location: Accession/Order Number: [id number] Exam Date: 05/26/2025 16:46 Report Date: 05/26/2025 [...] Maxwell M.D. 05/26/2025 4:48 PM Dictation Location: [place] [address] Electronically authenticated by: [id number] Y Date: 05/26/2025 16:48 Dictated By: Marquis Maxwell M.D. Signed By: 05/26/25 165 DD/ 47 TD/TT: Preschool Assistant Principal: [facility] Radiology Study observation (narrative) [facility] US OB BPP W NON-STRESS Ordered By: Radiologist Radiology on 05-26-2025 [facility] Work Phone: US OB GROWTHon 05-25-2025 [place] [address] Ultrasound Report Signed Patient: CHARLENE PURVIS MR#: [id number] : 1990 Acct:[id number] Age/Sex: 34 / F ADM Date: 05/16/25 Loc: US Attending Dr: Nolan Cortes D.O. Ordering Physician: Nolan Cortes D.O. Date of Service: 05/16/25 Procedure(s): US OB growth Accession Number(s): [id number] cc: Nolan Cortes D.O.; Physician,Non-Staff [place]ky [place] [id number] Patient Name: CHARLENE PURVIS MRN: [id number] date: 1990 Sex: F Assigned Patient Location: US Current Patient Location: Accession/Order Number: [id number] Exam Date: 05/25/2025 09:01 Report Date: 05/25/2025 [...] Peña M.D. 05/25/2025 9:12 AM Dictation Location: [place] [address] Electronically authenticated by: [id number] Y Date: 05/25/2025 09:12 Dictated By: Grace Peña M.D. Signed By: 05/25/25914 DD/ 1 TD/TT: Preschool Assistant Principal: [facility] Radiology, Radiologist, - 05/25/2025 [place] [address] Ultrasound Report Signed Patient: CHARLENE PURVIS MR#: [id number] : 1990 Acct:[id number] Age/Sex: 34 / F ADM Date: 05/16/25 Loc: US Attending Dr: Nolan Cortes D.O. Ordering Physician: Nolan Cortes D.O. Date of Service: 05/16/25 Procedure(s): US OB growth Accession Number(s): [id number] cc: Nolan Cortes D.O.; Physician,Non-Staff Nikky The [place] [id number] Patient Name: CHARLENE PURVIS MRN: [facility]:[id number] date: 1990 Sex: F Assigned Patient Location: US Current Patient Location: Accession/Order Number: [id number] Exam Date: 05/25/2025 09:01 Report Date: 05/25/2025 [...] Peña M.D. 05/25/2025 9:12 AM Dictation Location: [place] [address] Electronically authenticated by: [id number] Y Date: 05/25/2025 09:12 Dictated By: Grace Peña M.D. Signed By: 05/25/25914 DD/ 1 TD/TT: Preschool Assistant Principal: [facility] Radiology Study observation (narrative) [facility] US OB GROWTHOrdered By: Melanie edwardsogarnol Radiology on 05-25-2025 [facility] Work Phone: US OB BPP W NON-STRESS on 05-24-2025 [place] [address] Ultrasound Report Signed Patient: CHARLENE PURVIS MR#: [id number] : 1990 Acct:[id number] Age/Sex: 34 / F ADM Date: 05/23/25 Loc: US Attending Dr: Nolan Cortes D.O. Ordering Physician: Nolan Cortes D.O. Date of Service: 05/23/25 Procedure(s): US OB BPP w non-stress Accession Number(s): [id number] cc: Nolan Cortes D.O.; Physician,Non-Staff Nikky [facility] [place] [address] Patient Name: CHARLENE PURVIS MRN: [id number] date: 1990 Sex: F Assigned Patient Location: [facility] Current Patient Location: Accession/Order Number: [id number] Exam Date: 05/24/2025 06:57 Report Date: 05/24/2025 [...] is in upper normal range. Total score: 8/ US/US OB BPP w non-stress IMPRESSION: NORMAL BIOPHYSICAL PROFILE Impression dictated by: Grace Peña M.D. 05/24/2025 6:59 AM Dictation Location: [place] [address] Electronically authenticated by: [id number] Y Date: 05/24/2025 06:59 Dictated By: Grace Peña M.D. Signed By: 05/24/25 0702 DD/ 0659 TD/TT: Preschool Assistant Principal: [facility] Radiology, Radiologist, MD - 05/24/2025 [place] [address] Ultrasound Report Signed Patient: CHARLENE PURVIS MR#: [id number] : 1990 Acct:[id number] Age/Sex: 34 / F ADM Date: 05/23/25 Loc: US Attending Dr: Nolan Cortes D.O. Ordering Physician: Nolan Cortes D.O. Date of Service: 05/23/25 Procedure(s): US OB BPP w non-stress Accession Number(s): [id number] cc: Nolna Cortes D.O.; Physician,Non-Staff Nikky The [address] [address] Patient Name: CHARLENE PURVIS MRN: [facility]:[id number] date: 1990 Sex: F Assigned Patient Location: [facility] Current Patient Location: Accession/Order Number: [id number] Exam Date: 05/24/2025 06:57 Report Date: 05/24/2025 [...] in upper normal range. Total score: 8/8 US/ OB BPP w non-stress IMPRESSION: NORMAL BIOPHYSICAL PROFILE Impression dictated by: Grace Peña M.D. 05/24/2025 6:59 AM Dictation Location: [place] [address] Electronically authenticated by: [id number] Y Date: 05/24/2025 06:59 Dictated By: Grace Peña M.D. Signed By: 05/24/25 0702 DD/ 0659 TD/TT: Preschool Assistant Principal: [facility] Radiology Study observation (narrative) [facility] OB BPP W NON-STRESS Ordered By: Radiologist Radiology on 05-24-2025 [facility] Work Phone: Urinalysis macro (dipstick) panel (U)on 05-24-2025 Bilirubin, UA Trace Negative - 4(70) +++ mg/dL [facility] Blood, UA Negative Negative - 50 Eliceo/mcL [facility] Clarity, UA Clear [facility] Color, UA Yellow [facility] Glucose, UA Negative Negative - 2000(110) ++++ mg/dL [facility] Interpretation and review of laboratory results Abnormal [facility] Ketones, UA Negative Negative - 160(16) ++++ mg/dL [facility] Leukocytes, UA Negative Negative - 500+++ Danielle/mcL [facility] Nitrite, UA Negative Negative - Positive [facility] pH, UA 6 5 - 9 [facility] Protein, UA Trace Negative - 2000(20) ++++ mg/dL [facility] Spec Grav, UA 1.03 1 - 1.03 [facility] Urobilinogen, UA 1.0 0.2 - 12 mg/dL [facility] US OB BPP W NON-STRESS on 05-16-2025 [place] [address] Ultrasound Report Signed Patient: CHARLENE PURVIS MR#: [id number] : 1990 Acct:[id number] Age/Sex: 34 / F ADM Date: 05/16/25 Loc: US Attending Dr: Nolan Cortes D.O. Ordering Physician: Nolan Cortes D.O. Date of Service: 05/16/25 Procedure(s): US OB BPP w non-stress Accession Number(s): [id number] cc: Nolan Cortes D.O.; Physician,Non-Staff Nikky The [place] [id number] Patient Name: CHARLENE PURVIS MRN: [id number] date: 1990 Sex: F Assigned Patient Location: US Current Patient Location: Accession/Order Number: [id number] Exam Date: 05/16/2025 22:56 Report Date: 05/16/2025 [...] PM Dictation Location: [employer] Electronically authenticated by: [id number] Y Date: 05/16/2025 23:00 Dictated By: Mehul Brewer M.D. Signed By: 05/16/252302 DD/ 99 TD/TT: Preschool Assistant Principal: [facility] Radiology, Radiologist, - 05/16/2025 [place] [address] Ultrasound Report Signed Patient: CHARLENE PURVIS MR#: [id number] : 1990 Acct:[id number] Age/Sex: 34 / F ADM Date: 05/16/25 Loc: US Attending Dr: Nolan Cortes D.O. Ordering Physician: Nolan Cortes D.O. Date of Service: 05/16/25 Procedure(s): US OB BPP w non-stress Accession Number(s): [id number] cc: Nolan Cortes D.O.; Physician,Non-Staff Nikky The [place] [address] Patient Name: CHARLENE PURVIS MRN: [facility]:[id number] date: 1990 Sex: F Assigned Patient Location: Current Patient Location: Accession/Order Number: [id number] Exam Date: 05/16/2025 22:56 Report Date: 05/16/2025 [...] Brewer M.D. 05/16/2025 11:00 PM Dictation Location: [employer] Electronically authenticated by: [id number] Y Date: 05/16/2025 23:00 Dictated By: Mehul Brewer M.D. Signed By: 05/16/252302 DD/ 99 TD/TT: Preschool Assistant Principal: [facility] Radiology Study observation (narrative) [facility] US OB BPP W NON-STRESS Ordered By: Radiologist Radiology on 05-16-2025 [facility] Work Phone: US OB BPP W NON-STRESS on 05-09-2025 [place] [address] Ultrasound Report Signed Patient: CHARLENE PURVIS MR#: [id number] : 1990 Acct:[id number] Age/Sex: 34 / F ADM Date: 05/09/25 Loc: [facility] 250-[address]: Nolan Cortes D.O. Ordering Physician: Nolan Cortes D.O. Date of Service: 05/09/25 Procedure(s): US OB BPP w non-stress Accession Number(s): [id number] cc: Nolan Cortes D.O.; Physician,Non-Staff Nikky [place] [address] Patient Name: CHARLENE PURVIS MRN: [facility]:[id number] date: 1990 Sex: F Assigned Patient Location: [facility] Current Patient Location: [facility] Accession/Order Number: [id number] Exam Date: 05/09/2025 15:50 Report Date: 05/09/2025 15:51 At the request of: NOLAN CORTES DO Procedure: US OB BPP w non-stress Biophysical profile. Reason for exam: Gestational diabetes. COMPARISON: BDP 05/02/2025. TECHNIQUE: Transabdominal imaging of the gravid uterus was obtained. 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 BHAVANI is normal at 13.2 cm. heart rate 161 bpm. US/US OB BPP w non-stress Impression: BPP 8 out of 8. Impression dictated by: Jacinto Rivas Jr., D.O. 05/09/2025 3:51 PM Dictation Location: [place] [address] Electronically authenticated by: [id number] Y Date: 05/09/2025 15:51 Dictated By: Jacinto Rivas M.D. Signed By: 05/09/25 1554 DD/ 155 TD/TT: Preschool Assistant Principal: [facility] Radiology, Radiologist, - 05/09/2025 [place] [address] Ultrasound Report Signed Patient: CHARLENE PURVIS MR#: [id number] : 1990 Acct:[id number] Age/Sex: 34 / F ADM Date: 05/09/25 Loc: [facility] 250-[address]: Nolan Cortes D.O. Ordering Physician: Nolan Cortes D.O. Date of Service: 05/09/25 Procedure(s): US OB BPP w non-stress Accession Number(s): [id number] cc: Nolan Cortes D.O.; Physician,Non-Staff Nikky The [place] [address] Patient Name: CHARLENE PURVIS MRN: [facility]:[id number] date: 1990 Sex: F Assigned Patient Location: [facility] Current Patient Location: [facility] Accession/Order Number: [id number] Exam Date: 05/09/2025 15:50 Report Date: 05/09/2025 15:51 At the request of: NOLAN CORTES DO Procedure: US OB BPP w non-stress Biophysical profile. Reason for exam: Gestational diabetes. COMPARISON: BDP 05/02/2025. TECHNIQUE: Transabdominal imaging of the gravid uterus was obtained. 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 BHAVANI is normal at 13.2 cm. heart rate 161 bpm. US/US OB BPP w non-stress Impression: BPP 8 out of 8. Impression dictated by: Jacinto Rivas Jr., D.O. 05/09/2025 3:51 PM Dictation Location: [email or web address] Electronically authenticated by: [id number] Y Date: 05/09/2025 15:51 Dictated By: Jacinto Rivas M.D. Signed By: 05/09/25 1554 DD/ 155 TD/TT: Preschool Assistant Principal: [facility] Radiology Study observation (narrative) [facility] US OB BPP W NON-STRESS Ordered By: Radiologist Radiology on 05-09-2025 [facility] Work Phone: US OB BPP W NON-STRESS on 05-02-2025 [place] [address] Ultrasound Report Signed Patient: CHARLENE PURVIS MR#: [id number] : 1990 Acct:[id number] Age/Sex: 34 / F ADM Date: 05/02/25 Loc: US Attending Dr: Nolan Cortes D.O. Ordering Physician: Nolan Cortes D.O. Date of Service: 05/02/25 Procedure(s): US OB BPP w non-stress Accession Number(s): [id number] cc: Nolan Cortes D.O.; Physician,Non-Staff Nikky [place] [id number] Patient Name: CHARLENE PURVIS MRN: [facility]:[id number] date: 1990 Sex: F Assigned Patient Location: [facility] Current Patient Location: Accession/Order Number: [id number] Exam Date: 05/02/2025 16:28 Report Date: 05/02/2025 [...] Maxwell M.D. 05/02/2025 4:30 PM Dictation Location: [place] [address] Electronically authenticated by: [id number] Y Date: 05/02/2025 16:30 Dictated By: Marquis Maxwell M.D. 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 Ordering Physician: Nolan Cortes D.O. Date of Service: 05/02/25 Procedure(s): US OB BPP w non-stress Accession Number(s): [id number] cc: Nolan Cortes D.O.; Physician,Non-Staff Nikky The [place] [id number] Patient Name: CHARLENE PURVIS MRN: [facility]:[id number] date: 1990 Sex: F Assigned Patient Location: [facility] Current Patient Location: Accession/Order Number: [id number] Exam Date: 05/02/2025 16:28 Report Date: 05/02/2025 [...] Maxwell M.D. 05/02/2025 4:30 PM Dictation Location: [place] Electronically authenticated by: [id number] Y Date: 05/02/2025 16:30 Dictated By: Marquis Maxwell M.D. Signed By: 05/02/25 163 DD/ 163 TD/TT: Preschool Assistant Principal: [facility] Radiology Study observation (narrative) [facility] US OB BPP W NON-STRESS Ordered By: Radiologist Radiology on 05-02-2025 [facility] Work Phone: Urinalysis macro (dipstick) panel (U)on 05-02-2025 Bilirubin, UA Negative Negative - 4(70) +++ mg/dL [facility] Blood, UA Negative Negative - 50 Eliceo/mcL [facility] Clarity, UA Clear [facility] Color, UA Yellow [facility] Glucose, UA Negative Negative - 2000(110) ++++ mg/dL [facility] Interpretation and review of laboratory results Abnormal [facility] Ketones, UA Positive Negative - 160(16) ++++ mg/dL [facility] Comment on above: 160 Leukocytes, UA Positive Negative - 500+++ Danielle/mcL [facility] Comment on above: small Nitrite, UA Negative Negative - Positive [facility] pH, UA 6.5 5 - 9 [facility] Protein, UA Positive Negative - 2000(20) ++++ mg/dL [facility] Comment on above: 30 Spec Grav, UA 1.02 1 - 1.03 [facility] Urobilinogen, UA 0.2 0.2 - 12 mg/dL [facility] US OB BPP W NON-STRESS on 04-25-[address] [address] Ultrasound Report Signed Patient: CHARLENE PURVIS MR#: [id number] : 1990 Acct:[id number] Age/Sex: 34 / F ADM Date: 04/25/25 Loc: US Attending Dr: Nolan Cortes D.O. Ordering Physician: Nolan Cortes D.O. Date of Service: 04/25/25 Procedure(s): US OB BPP w non-stress Accession Number(s): [id number] cc: Nolan Cortes D.O.; Physician,Non-Staff Nikky The [address] [id number] Patient Name: CHARLENE PURVIS MRN: [facility]:[id number] date: 1990 Sex: F Assigned Patient Location: [facility] Current Patient Location: Accession/Order Number: [id number] Exam Date: 04/25/2025 21:35 Report Date: 04/25/2025 [...] Olvera M.D. 04/25/2025 9:36 PM Dictation Location: [place] [address] Electronically authenticated by: [id number] Y Date: 04/25/2025 21:36 Dictated By: Harlan Olvera D.O. Signed By: 04/25/252137 DD/ 35 TD/TT: Preschool Assistant Principal: [facility] Radiology, Radiologist, MD - 04/25/2025 [place] [address] Ultrasound Report Signed Patient: CHARLENE PURVIS MR#: [id number] : 1990 Acct:[id number] Age/Sex: 34 / F ADM Date: 04/25/25 Loc: US Attending Dr: Nolan Cortes D.O. Ordering Physician: Nolan Cortes D.O. Date of Service: 04/25/25 Procedure(s): US OB BPP w non-stress Accession Number(s): [id number] cc: Nolan Cortes D.O.; Physician,Non-Staff Nikky The [address] [address] Patient Name: CHARLENE PURVIS MRN: [facility]:[id number] date: 1990 Sex: F Assigned Patient Location: [facility] Current Patient Location: Accession/Order Number: [id number] Exam Date: 04/25/2025 21:35 Report Date: 04/25/2025 [...] Olvera M.D. 04/25/2025 9:36 PM Dictation Location: [place] [address] Electronically authenticated by: [id number] Y Date: 04/25/2025 21:36 Dictated By: Harlan Olvera D.O. Signed By: 04/25/252137 DD/ 35 TD/TT: Preschool Assistant Principal: [facility] Radiology Study observation (narrative) [facility] US OB BPP W NON-STRESS Ordered By: Radiologist Radiology on 04-25-2025 [facility] Work Phone: US OB BPP W NON-STRESS on 04-18-2025 [place] [address] Ultrasound Report Signed Patient: CHARLENE PURVIS MR#: [id number] : 1990 Acct:[id number] Age/Sex: 34 / F ADM Date: 04/18/25 Loc: US Attending Dr: Nolan Cortes D.O. Ordering Physician: Nolan Cortes D.O. Date of Service: 04/18/25 Procedure(s): US OB BPP w non-stress Accession Number(s): [id number] cc: Nolan Cortes D.O.; Physician,Non-Staff Nikky The [address] [address] Patient Name: CHARLENE PURVIS MRN: [facility]:[id number] date: 1990 Sex: F Assigned Patient Location: [facility] Current Patient Location: Accession/Order Number: [id number] Exam Date: 04/18/2025 16:06 Report Date: 04/18/2025 [...] Olvera M.D. 04/18/2025 4:07 PM Dictation Location: [place] [address] Electronically authenticated by: [id number] Y Date: 04/18/2025 16:07 Dictated By: Harlan Olvera D.O. Signed By: 04/18/25 1609 DD/ 1607 TD/TT: Preschool Assistant Principal: [facility] Radiology, Radiologist, MD - 04/18/2025 The [place] [id number] Ultrasound Report Signed Patient: CHARLENE PURVIS MR#: [id number] : 1990 Acct:[id number] Age/Sex: 34 / F ADM Date: 04/18/25 Loc: US Attending Dr: Nolan Cortes D.O. Ordering Physician: Nolan Cortes D.O. Date of Service: 04/18/25 Procedure(s): US OB BPP w non-stress Accession Number(s): [id number] cc: Nolan Cortes D.O.; Physician,Non-Staff Nikky [facility] [place] [address] Patient Name: CHARLENE PURVIS MRN: [facility]:[id number] date: 1990 Sex: F Assigned Patient Location: [facility] Current Patient Location: Accession/Order Number: [id number] Exam Date: 04/18/2025 16:06 Report Date: 04/18/2025 [...] Olvera M.D. 04/18/2025 4:07 PM Dictation Location: [place] [address] Electronically authenticated by: [id number] Y Date: 04/18/2025 16:07 Dictated By: Harlan Olvera D.O. Signed By: 04/18/25 1609 DD/ 1607 TD/TT: Preschool Assistant Principal: [facility] Radiology Study observation (narrative) [facility] US OB BPP W NON-STRESS Ordered By: Radiologist Radiology on 04-18-2025 [facility] Work Phone: Urinalysis macro (dipstick) panel (U)on 04-18-2025 Bilirubin, UA Negative Negative - 4(70) +++ mg/dL [facility] Blood, UA Negative Negative - 50 Eliceo/mcL [facility] Clarity, UA Clear [facility] Color, UA Light Yellow [facility] Glucose, UA Positive Negative - 2000(110) ++++ mg/dL [facility] Comment on above: 250 Interpretation and review of laboratory results Abnormal [facility] Ketones, UA Positive Negative - 160(16) ++++ mg/dL [facility] Comment on above: 15 Leukocytes, UA Positive Negative - 500+++ Danielle/mcL [facility] Comment on above: small Nitrite, UA Negative Negative - Positive [facility] pH, UA 6 5 - 9 [facility] Protein, UA Negative Negative - 2000(20) ++++ mg/dL [facility] Spec Grav, UA 1.005 1 - 1.03 [facility] Urobilinogen, UA 0.2 0.2 - 12 mg/dL [facility] US OB BPP W NON-STRESS on 04-11-2025 [place] [address] Ultrasound Report Signed Patient: CHARLENE PURVIS MR#: [id number] : 1990 Acct:[id number] Age/Sex: 34 / F ADM Date: 04/11/25 Loc: US Attending Dr: Nolan Cortes D.O. Ordering Physician: Nolan Cortes D.O. Date of Service: 04/11/25 Procedure(s): US OB BPP w non-stress Accession Number(s): [id number] cc: Nolan Cortes D.O.; Physician,Non-Staff Nikky The [place] [id number] Patient Name: CHARLENE PURVIS MRN: [id number] date: 1990 Sex: F Assigned Patient Location: [facility] Current Patient Location: Accession/Order Number: [id number] Exam Date: 04/11/2025 16:04 Report Date: 04/11/2025 [...] Olvera M.D. 04/11/2025 4:05 PM Dictation Location: [employer] Electronically authenticated by: [id number] Y Date: 04/11/2025 16:05 Dictated By: Harlan Olvera D.O. Signed By: 04/11/25 1607 DD/ 04 TD/TT: Preschool Assistant Principal: [facility] Radiology, Radiologist, - 04/11/2025 [place] [address] Ultrasound Report Signed Patient: CHARLENE PURVIS MR#: [id number] : 1990 Acct:[id number] Age/Sex: 34 / F ADM Date: 04/11/25 Loc: US Attending Dr: Nolan Cortes D.O. Ordering Physician: Nolan Cortes D.O. Date of Service: 04/11/25 Procedure(s): US OB BPP w non-stress Accession Number(s): [id number] cc: Nolan Cortes D.O.; Physician,Non-Staff Nikky [facility] [place] [address] Patient Name: CHARLENE PURVIS MRN: [facility]:[id number] date: 1990 Sex: F Assigned Patient Location: [facility] Current Patient Location: Accession/Order Number: [id number] Exam Date: 04/11/2025 16:04 Report Date: 04/11/2025 [...] Olvera M.D. 04/11/2025 4:05 PM Dictation Location: [employer] Electronically authenticated by: [id number] Y Date: 04/11/2025 16:05 Dictated By: Harlan Olvera D.O. Signed By: 04/11/251606 DD/ 04 TD/TT: Preschool Assistant Principal: [facility] Radiology Study observation (narrative) [facility] US OB BPP W NON-STRESS Ordered By: Radiologist Radiology on 04-11-2025 [facility] Work Phone: Urinalysis macro (dipstick) panel (U)on 04-05-2025 Bilirubin, UA Negative Negative - 4(70) +++ mg/dL [facility] Blood, UA Negative Negative - 50 Eliceo/mcL [facility] Clarity, UA Clear [facility] Color, UA Yellow [facility] Glucose, UA Positive Negative - 2000(110) ++++ mg/dL [facility] Comment on above: 100mg/dL Interpretation and review of laboratory results Abnormal [facility] Ketones, UA Positive Negative - 160(16) ++++ mg/dL [facility] Comment on above: Trace Leukocytes, UA Positive Negative - 500+++ Danielle/mcL [facility] Comment on above: small Nitrite, UA Negative Negative - Positive [facility] pH, UA 6 5 - 9 [facility] Protein, UA Trace Negative - 2000(20) ++++ mg/dL [facility] Spec Grav, UA 1.025 1 - 1.03 [facility] Urobilinogen, UA 0.2 0.2 - 12 mg/dL [facility] POCT Hemoglobin A1con 2024 HbA1c (Bld) [Mass fraction] 5.8 % 4 - 7 % [facility] US OB INCOMPLETE ANATOMYon 0 03-07-2025 [place] [address] Ultrasound Report Signed Patient: CHARLENE PURVIS MR#: [id number] : 1990 Acct:[id number] Age/Sex: 34 / F ADM Date: 03/05/25 Loc: US Attending Dr: Nolan Cortes D.O. Ordering Physician: Nolan Cortes D.O. Date of Service: 03/05/25 Procedure(s): US OB incomplete anatomy Accession Number(s): [id number] cc: Nolan Cortes D.O.; Physician,Non-Staff Nikky The [address] [address] Patient Name: CHARLENE PURVIS MRN: [facility]:[id number] date: 1990 Sex: F Assigned Patient Location: US Current Patient Location: Accession/Order Number: [id number] Exam Date: 03/07/2025 12:39 Report Date: 03/07/2025 [...] Jr., D.O. 03/07/2025 12:42 PM Dictation Location: [place] [address] Electronically authenticated by: [id number] Y Date: 03/07/2025 12:42 Dictated By: Jacinto Rivas M.D. Signed By: 03/07/25 1244 DD/ 1242 TD/TT: Preschool Assistant Principal: [facility] Radiology, Radiologist, MD - 03/07/[address] [address] Ultrasound Report Signed Patient: CHARLENE PURVIS MR#: [id number] : 1990 Acct:[id number] Age/Sex: 34 / F ADM Date: 03/05/25 Loc: US Attending Dr: Nolan Cortes D.O. Ordering Physician: Nolan Cortes D.O. Date of Service: 03/05/25 Procedure(s): US OB incomplete anatomy Accession Number(s): [id number] cc: Nolan Cortes D.O.; Physician,Non-Staff Nikky [address] [address] Patient Name: CHARLENE PURVIS MRN: [id number] date: 1990 Sex: F Assigned Patient Location: US Current Patient Location: Accession/Order Number: [id number] Exam Date: 03/07/2025 12:39 Report Date: 03/07/2025 [...] Jr., D.O. 03/07/2025 12:42 PM Dictation Location: [place] [address] Electronically authenticated by: [id number] Y Date: 03/07/2025 12:42 Dictated By: Jacinto Rivas M.D. Signed By: 03/07/25 1244 DD/ 1242 TD/TT: Preschool Assistant Principal: [facility] Radiology Study observation (narrative) [facility] OB INCOMPLETE ANATOMYOrde red By: Radiologist Radiology on 03-07-2025 [facility] Work Phone: Urinalysis macro (dipstick) panel (U)on 02-21-2025 Bilirubin, UA Negative Negative - 4(70) +++ mg/dL [facility] Blood, UA Negative Negative - 50 Eliceo/mcL [facility] Clarity, UA Clear [facility] Color, UA Yellow [facility] Glucose, UA Negative Negative - 2000(110) ++++ mg/dL [facility] Interpretation and review of laboratory results Abnormal [facility] Ketones, UA Positive Negative - 160(16) ++++ mg/dL [facility] Comment on above: 40mg/dL Leukocytes, UA Positive Negative - 500+++ Danielle/mcL [facility] Comment on above: small Nitrite, UA Negative Negative - Positive [facility] pH, UA 6 5 - 9 [facility] Protein, UA Positive Negative - 2000(20) ++++ mg/dL [facility] Comment on above: 30mg/dL Spec Grav, UA 1.02 1 - 1.03 [facility] Urobilinogen, UA 0.2 0.2 - 12 mg/dL [facility] Glucose random or fasting- P OCTon 02-16-2025 External Glucose Fasting Or Random (Fbs) 110 [facility] US OB 14+ WEEKS ANATOMY SCAN on [...] II, MD, PHD at 15-Feb-2025 11:25:23 PM [facility] Normal Not Available Comment on above: Order Comment: US OB ANATOMY SINGLE W US OB CERVICAL LENGTH Estimated Date of Delivery: 06/24/25 Gestational Age as of 12/06/2024: 11w3d AFP, SERUM, OPEN SPINA BIFID Aon 02-09-2025 AFP MOM 0.84 . [facility] AFP VALUE 34.5 ng/mL . [facility] COMMENT: Comment . [facility] Comment on above: Tiffany Shah , Ph.D., [facility] Director References: Available Upon Request. Multiples Of Median Cutoffs For AFP Elevations Steiner 2.5 Black 2.8 IDD 2.0 Twins 4.5 Abbreviation Definitions IDD - Insulin Dep Diabetes OSBR - Open Spina Bifida Risk For further inquiries contact [facility] at [phone]. This test was developed and its performance characteristics determined by [employer]. It has not been cleared or approved by the Food and Drug Administration. Performed at: [facility] [address] [place], [place] [id number] Labeling Associate: Rogelio Rice [facility], Phone: [phone] GEST. AGE ON COLLECTION DATE 20.4 . weeks [facility] GESTAT. AGE BASED ON LMP . [facility] Comment on above: Recalculations are n ot recommended when gestational dating by LMP and ultrasound are within 10 days. INSULIN DEP DIABETES No . [facility] INTERPRETATION Comment . [facility] Comment on above: Interpretation: Scre en Negative [...] Customer Services to discuss available options. The [employer] recommends amniocentesis be offered to women age 35 and older. [age] [facility] MULTIPLE GESTATION No . [facility] [place] [address] [place] [address] . [facility] RACE . [facility] RESULTS Report . [facility] TEST RESULTS: Negative . [facility] WEIGHT 289 . lbs [facility] N N LMP [id number] 3 18 N 1 Y 289 N N N N N White/ [facility] Chlamydia/GC by PCR Holley Sw abon 01-24-2025 Gonorrhoeae Dna(Pcr) Not detected [facility] Chlamydia/GC by PCR ThinPrep fluidon 01-24-2025 Chlamydia Dna(Pcr) Not detected [facility] No Panel Informationon 01-24 [facility] ALL CBC WITH AUTO DIFFon BASOPHILS ABSOLUTE AUTO 0 [facility] Basophils/100 WBC (Bld) 0.3 % 0.2 - 2.0 % [facility] Eosinophils/100 WBC (Bld) 3.7 % 0.9 - 7.0 % [facility] Erythrocyte distribution width (RBC) [Ratio] 13.1 % 11.0 - 15.0 % [facility] IMMATURE GRANULOCYTES ABS AUTO 0.04 High [facility] Immature granulocytes/100 WBC (Bld) 0.4 % 0.0 - 0.5 % [facility] Interpretation and review of laboratory results Abnormal [facility] LYMPHOCYTES ABSOLUTE AUTO 2 [facility] Lymphocytes/100 WBC (Bld) 21.3 % 20.5 - 60.0 % [facility] MCH (RBC) [Entitic mass] 32.6 pg 26.7 - 34.0 pg [facility] MCHC (RBC) [Mass/Vol] 34.8 g/dL 29.9 - 35.2 g/dL [facility] MCV (RBC) [Entitic vol] 93.6 fL 81.0 - 99.0 fL [facility] MONOCYTES ABSOLUTE AUTO 0.5 [facility] Monocytes/100 WBC (Bld) 5.1 % 1.7 - 12.0 % [facility] NEUTROPHILS ABSOLUTE AUTO 6.4 [facility] Neutrophils/100 WBC (Bld) 69.2 % 43.0 - 75.0 % [facility] Platelet mean volume (Bld) [Entitic vol] 10.6 fL 9.5 - 13.5 fL [facility] EO # 0.[address] [facility] PLT [address] [facility] RBC 4.[address] [facility] WBC 9.2 [facility] CBC without diffon Platelets (Bld) [#/Vol] 139 10*3/uL [facility] Glucose tolerance, 1 houron 01-08-2025 Glucose Tolerance Test 1 Hour 168 [facility] Laboratory - Hematology and Cell countson 01-08-2025 Hematocrit (Bld) [Volume fraction] 40.8 % [facility] Hemoglobin (Bld) [Mass/Vol] 14.2 g/dL [facility] No Panel Informationon 01-08 [facility] Urinalysis macro (dipstick) panel (U)on 12-28-2024 Bilirubin, UA Negative Negative - 4(70) +++ mg/dL [facility] Blood, UA Negative Negative - 50 Eliceo/mcL [facility] Clarity, UA Clear [facility] Color, UA Yellow [facility] Glucose, UA Positive Negative - 1999(110) ++++ mg/dL [facility] Comment on above: 250mg/dL Interpretation and review of laboratory results Abnormal [facility] Ketones, UA Negative Negative - 160(16) ++++ mg/dL [facility] Leukocytes, UA Trace Negative - 500+++ Danielle/mcL [facility] Nitrite, UA Negative Negative - Positive [facility] pH, UA 6 5 - 9 [facility] Protein, UA Positive Negative - 2000(20) ++++ mg/dL [facility] Comment on above: 30mg/dL Spec Grav, UA 1.03 1 - 1.03 [facility] Urobilinogen, UA 0.2 0.2 - 12 mg/dL [facility] ALL CBC WITH AUTO DIFFon BASOPHILS ABSOLUTE AUTO 0 [facility] Basophils/100 WBC (Bld) 0.3 % 0.2 - 2.0 % [facility] Eosinophils/100 WBC (Bld) 4.4 % 0.9 - 7.0 % [facility] Erythrocyte distribution width (RBC) [Ratio] 12 % 11.0 - 15.0 % [facility] IMMATURE GRANULOCYTES ABS AUTO 0.03 [facility] Immature granulocytes/100 WBC (Bld) 0.3 % 0.0 - 0.5 % [facility] LYMPHOCYTES ABSOLUTE AUTO 2.1 [facility] Lymphocytes/100 WBC (Bld) 24.6 % 20.5 - 60.0 % [facility] MCH (RBC) [Entitic mass] 31.7 pg 26.7 - 34.0 pg [facility] MCHC (RBC) [Mass/Vol] 34.4 g/dL 29.9 - 35.2 g/dL [facility] MCV (RBC) [Entitic vol] 92.1 fL 81.0 - 99.0 fL [facility] MONOCYTES ABSOLUTE AUTO 0.6 [facility] Monocytes/100 WBC (Bld) 6.9 % 1.7 - 12.0 % [facility] NEUTROPHILS ABSOLUTE AUTO 5.5 [facility] Neutrophils/100 WBC (Bld) 63.5 % 43.0 - 75.0 % [facility] Platelet mean volume (Bld) [Entitic vol] 9.9 fL 9.5 - 13.5 fL [facility] TBH EO # 0.4 [facility] TB PLT 209 [facility] TB RBC 4.8 [facility] TB WBC 8.7 [facility] CLINISY[facility] CBC without diffon 5 Platelets (Bld) [#/Vol] 209 10*3/uL [facility] Drug Screen, Urineon 025 Amphetamine/Methamph etamine Negative [facility] Barbiturates Negative [facility] Benzodiazepines Negative [facility] Cocaine Metabolite Negative [facility] Methadone Negative [facility] Opiates Negative [facility] Oxycodone Negative [facility] Phencyclidine Negative [facility] Thc Marijuana, Urine Negative [facility] Free Cell DNAon 2024 Free Cell Dna LOW RISK [facility] HIV 1&2 AB/AG Screen (P24 AG )on 11-27-2024 HIV 1&2 AB/AG Non-Reactive [facility] Hemoglobin A1con 11-27-2024 HbA1c (Bld) [Mass fraction] 5.5 % 4.0 - 6.0 % [facility] Comment on above: AVERAGE GLUCOSE 111 Hepatitis B surface antigeno n 11-27-2024 Hepatitis B Surface Antigen Negative [facility] Laboratory - Hematology and Cell countson 11-27-2024 Hematocrit (Bld) [Volume fraction] 44.2 % [facility] Hemoglobin (Bld) [Mass/Vol] 15.2 g/dL [facility] No Panel Informationon 11-27 [facility] Rubella IGG immune statuson 11-27-2024 Rubella immune IgG 1.4 [facility] Syphilis Total(Unknown Syphi lis Status)on 11-27-2024 Syphilis Non-Reactive [facility] Type and screenon 11-27-2024 Abo/Rh(D) Negative [facility] GTT 3 HR PREGon 03-29-2023 Glucose [Mass/Vol] 107 mg/dL Critically high 74-106 [facility] Comment on above: Performed By: #### G TT3P #### [facility] [address] [address] [address] Loyd Coppola Glucose [Mass/Vol] 203 mg/dL Normal [facility] Comment on above: Performed By: #### G TT3P #### [facility] [address] [address] [address] Loyd Coppola Glucose [Mass/Vol] 191 mg/dL Normal [facility] Comment on above: Performed By: #### G TT3P #### [facility] [address] [address] [address] Loyd Coppola Glucose [Mass/Vol] 121 mg/dL Normal [facility] Comment on above: Performed By: #### G TT3P #### [facility] [address] [address] [address] Loyd Coppola AFP MATERNAL FOR SPINA BIFID Aon 03-23-2023 AFP MoM 0.70 Normal [facility] Comment on above: Performed By: #### JESUS CHAVARRIA #### [facility] [address] [address] [address] Loyd Coppola AFP Value 18.1 ng/mL Normal [facility] Comment on above: Performed By: #### JESUS CHAVARRIA #### [facility] [address] [address] [address] Loyd Coppola AFP, Serum for Spina Bifida Report Normal [facility] Comment on above: Performed By: #### JUSTIN CHAVARRIARO #### [facility] [address] [address] [address] Loyd Coppola Comment Comment Normal [facility] Comment on above: Result Comment: Eboni Shah, Ph.D., [facility] Director . References: Available Upon Request. . Multiples Of Median Cutoffs For AFP Elevations Steiner 2.5 Black 2.8 IDD 2.0 Twins 4.5 Abbreviation Definitions IDD - Insulin Dep Diabetes OSBR - Open Spina Bifida Risk . For further inquiries contact [facility] at [phone]. . This test was developed and its performance characteristics determined by [employer]. It has not been cleared or approved by the Food and Drug Administration. Performed By: #### JESUS CHAVARRIA #### [facility] [address] [place] [address] Dr. Loyd Coppola Gest Age Collection Date 16.4 weeks Normal [facility] Comment on above: Performed By: #### JUSTIN CHAVARRIARO #### [facility] [address] [place] [address] Dr. Loyd Coppola Gestat, Age Based on As provided Normal [facility] Comment on above: Result Comment: Reca lculations are not recommended when gestational dating by LMP and ultrasound are within 10 days. Performed By: #### JUSTIN CHAVARRIARO #### [facility] [address] [place] [address] Dr. Loyd Coppola Insulin Dep Diabetes No Normal [facility] Comment on above: Performed By: #### JUSTIN CHAVARRIARO #### [facility] [address] [place] [address] Dr. Loyd Coppola Interpretation Comment Normal [facility] Comment on above: Result Comment: Inte [...] Customer Services to discuss available options. The [employer] recommends amniocentesis be offered to women age 35 and older. Performed By: #### E RUR, UMICRO #### [facility] [address] [place] [address] Dr. Loyd Coppola [age] Normal [facility] Comment on above: Performed By: #### E RUR, UMICRO #### [facility] [address] [place] [address] Dr. Loyd Coppola Multiple Gestation No Normal [facility] Comment on above: Performed By: #### E RUR, UMICRO #### [facility] [address] [place] [address] Dr. Loyd Coppola [place] [id number] Normal [facility] Comment on above: Performed By: #### E RUR, UMICRO #### [facility] [address] [place] [address] Dr. Loyd Coppola PDF . [facility] Comment on above: Performed By: #### E SUHAR, UMICRO #### [facility] [address] [place] [address] Dr. Loyd Coppola [facility] Comment on above: Performed By: #### E RUR, UMICRO #### [facility] [address] [place] [address] Dr. Loyd Coppola Test Results: Negative Normal [facility] Comment on above: Performed By: #### E RUR, UMICRO #### [facility] [address] [place] [address] Dr. Loyd Coppola GLUCOSE - 1HRon 03-21-2023 Glucose [Mass/Vol] 165 mg/dL Critically high 74-106 [facility] Comment on above: Performed By: #### G LU1HR #### [facility] [address] [place] [address] Dr. Loyd Coppola PAP ACOG PANEL 2: 30 to 65on 02-19-2023 . . Normal [facility] Comment on above: Result Comment: Perf ormed at: WB Performed By: #### E MEGHANN, UMICRO #### [facility] [address] [place] [address] Dr. Loyd Coppola Age Gdln ACOG Testing 30-65 Normal [facility] Comment on above: Performed By: #### Suzi ZAVALETA, UMICRO #### [facility] [address] [place] [address] Dr. Loyd Coppola DIAGNOSIS: Comment Normal [facility] Comment on above: Result Comment: NEGA TIVE FOR INTRAEPITHELIAL LESION OR MALIGNANCY. Performed at: WB Performed By: #### Suzi ZAVALETA, UMICRO #### [facility] [address] [place] [address] Dr. Loyd Coppola HPV Aptima Negative Normal Negative [facility] Comment on above: Result Comment: This nucleic acid amplification test detects fourteen high-risk HPV types (16,18,31,33,35,39,45,51,52,56,58,59,66,68) without differentiation. Performed at: =G Performed By: #### Suzi ZAVALETA UMICRO #### [facility] [address] [place] [address] Dr. oLyd Coppola HPV Genotype Reflex Comment Normal [facility] Comment on above: Result Comment: Crit eria not met, HPV Genotype not performed. Performed at: WB Performed By: #### Suzi ZAVALETA UMICRO #### [facility] [address] [place] [address] Dr. Loyd Coppola Methodology: Comment Normal [facility] Comment on above: Result Comment: This liquid based ThinPrep(R) pap test was screened with the use of an image guided system. Performed at: WB Performed By: #### Suzi ZAVALETA, UMICRO #### [facility] [address] [place] [address] Dr. Loyd Coppola Note: Comment Normal [facility] Comment on above: Result Comment: The Pap smear is a screening test designed to aid in the detection of premalignant and malignant conditions of the uterine cervix. It is not a diagnostic procedure and should not be used as the sole means of detecting cervical cancer. Both false-positive and false-negative reports do occur. . Performed at: WB Performed By: #### E MORGAN ZAVALETAICRO #### [facility] [address] [place] [address] Dr. Loyd Coppola Performed by: Comment Normal [facility] Comment on above: Result Comment: Lidya Kirkpatrick, Broadcast Supervisor (ASCP) Performed at: WB Performed By: #### E MEGHANN, JUSTINRO #### [facility] [address] [address] [address] Loyd Coppola Specimen adequacy: Comment Normal [facility] Comment on above: Result Comment: Sati sfactory for evaluation. No endocervical component is identified. Performed at: WB Performed By: #### E JUSTIN ZAVALETARO #### [facility] [address] [place] [address] Dr. Loyd Coppola US PREG CERVICAL LENGTHon [...] by: YOMAIRA GONZALEZ Date: 2023-02-18 15:51 Normal [facility] CHLAMYDIA/GONOCOCCUS ANTONELLA (SW AB/URINE/PAPon 02-15-2023 Chlamydia trachomatis, ANTONELLA Negative Normal Negative [facility] Comment on above: Performed By: #### C T/NGNA #### [facility] [address] [place] [address] Dr. Loyd Coppola Neisseria gonorrhoeae, ANTONELLA Negative Normal Negative [facility] Comment on above: Performed By: #### C T/NGNA #### [facility] [address] [place] [address] Dr. Loyd Coppola VAGINITIS/VAGINOSIS DNA PROB Vineet 02-15-2023 Leigha species Negative Normal Negative [facility] Comment on above: Performed By: #### C BC #### [facility] [address] [place] [address] Dr. Loyd Coppola Gardnerella vaginalis Negative Normal Negative [facility] Comment on above: Performed By: #### C BC #### [facility] [address] [place] [address] Dr. Loyd Coppola Trichomonas vaginalis Negative Normal Negative [facility] Comment on above: Performed By: #### C BC #### [facility] [address] [place] [address] Dr. Loyd Coppola HEP B SURFACE ANTIGEN SCREEN on 02-01-2023 HBsAg Screen Negative Normal Negative [facility] Comment on above: Performed By: #### H BSANS #### [facility] [address] [place] [address] Dr. Loyd Coppola HEPATITIS C VIRUS AB W/ REFL EX QUANTon 02-01-2023 HCV AB Non-Reactive Normal Non Reactive [facility] Comment on above: Performed By: #### C BC #### [facility] [address] [place] [address] Dr. Loyd Coppola Interpretation: Comment Normal [facility] Comment on above: Result Comment: Not infected with HCV unless early or acute infection is suspected (which may be delayed in an immunocompromised individual), or other evidence exists to indicate HCV infection. Performed By: #### C BC #### [facility] [address] [place] [address] Dr. Loyd Coppola HIV 1 AND 2 WITH REFLEXon HIV Screen 4th Generation wRfx Non-Reactive Normal Non Reactive [facility] Comment on above: Result Comment: HIV Negative HIV-1/HIV-2 antibodies and HIV-1 p24 antigen were NOT detected. There is no laboratory evidence of HIV infection. Performed By: #### C BC #### [facility] [address] [place] [address] Dr. Loyd Coppola RPR QUANTon 02-01-2023 Rapid Plasma Reagin, Quant Non-Reactive Normal NonRea<1:1 [facility] Comment on above: Result Comment: Bishnu townsend Note: This test does not meet current guidelines for screening and diagnosis of syphilis. This test is intended for following treatment response in patients being treated for syphilis infection. To screen for syphilis infection, a reflex cascade that includes both RPR and a treponema-specific assay should be utilized, such as Treponema pallidum (Syphilis) Screening [place] (477548) or Rapid Plasma Reagin (RPR) Test With Reflex to Quantitative RPR and Confirmatory Treponema pallidum Antibodies (730022). Performed By: #### JESUS CHAVARRIA #### [facility] [address] [place] [address] Dr. Loyd Coppola RUBELLA AB IGGon 02-01-2023 Rubella Antibodies, IgG 1.08 index Normal Immune >0.99 [facility] Comment on above: Result Comment: Non- immune <0.90 Equivocal 0.90 - 0.99 Immune >0.99 Performed By: #### C BC #### [facility] [address] [place] [address] Dr. Loyd Coppola BOX TEST SENT OUTon 02-01-20 SENT TO REF LAB 01/31/23 Normal [facility] Comment on above: Performed By: #### JESUS CHAVARRIA #### [facility] [address] [place] [address] Dr. Loyd Coppola CBC AUTO DIFFon 01-31-2023 BASO # 0.0 103/ul Normal 0.0-0.1 [facility] Comment on above: Performed By: #### C BC #### [facility] [address] [place] [address] Dr. Loyd Coppola Basophils/100 WBC (Bld) 0.2 % Normal 0.2-2.0 [facility] Comment on above: Performed By: #### C BC #### [facility] [address] [place] [address] Dr. Loyd Coppola EO # 0.1 103/ul Normal 0.0-0.7 [facility] Comment on above: Performed By: #### C BC #### [facility] [address] [place] [address] Dr. Loyd Coppola Eosinophils/100 WBC (Bld) 1.5 % Normal 0.9-7.0 [facility] Comment on above: Performed By: #### C BC #### [facility] [address] [place] [address] Dr. Loyd Coppola Erythrocyte distribution width (RBC) [Ratio] 12.3 % Normal 11.0-15.0 [facility] Comment on above: Performed By: #### C BC #### [facility] [address] [place] [address] Dr. Loyd Coppola Hematocrit (Bld) [Volume fraction] 39.3 % Normal 36.0-48.0 [facility] Comment on above: Performed By: #### C BC #### [facility] [address] [place] [address] Dr. Loyd Coppola Hemoglobin (Bld) [Mass/Vol] 14.3 g/dL Normal 12.0-16.0 [facility] Comment on above: Performed By: #### C BC #### [facility] [address] [place] [address] Dr. Loyd Coppola IG # 0.03 10e3/ul Normal 0.00-0.03 [facility] Comment on above: Performed By: #### C BC #### [facility] [address] [place] [address] Dr. Loyd Coppola IG % 0.3 % Normal 0.0-0.5 [facility] Comment on above: Performed By: #### C BC #### [facility] [address] [place] [address] Dr. Loyd Coppola LYMPH # 2.3 103/ul Normal 1.2-3.8 [facility] Comment on above: Performed By: #### C BC #### [facility] [address] [place] [address] Dr. Loyd Coppola Lymphocytes/100 WBC (Bld) 24.8 % Normal 20.5-60.0 [facility] Comment on above: Performed By: #### C BC #### [facility] [address] [place] [address] Dr. Loyd Coppola MANUAL DIFF REQ NO Normal [facility] Comment on above: Performed By: #### C BC #### [facility] [address] [place] [address] Dr. Loyd Coppola MCH (RBC) [Entitic mass] 32.6 pg Normal 26.7-34.0 [facility] Comment on above: Performed By: #### C BC #### [facility] [address] [place] [address] Dr. Loyd Coppola MCHC (RBC) [Mass/Vol] 36.4 g/dL Critically high 29.9-35.2 [facility] Comment on above: Performed By: #### C BC #### [facility] [address] [place] [address] Dr. Loyd Coppola MCV (RBC) [Entitic vol] 89.7 fL Normal 81.0-99.0 [facility] Comment on above: Performed By: #### C BC #### [facility] [address] [place] [address] Dr. Loyd Coppola MONO # 0.5 103/ul Normal 0.3-0.8 [facility] Comment on above: Performed By: #### C BC #### [facility] [address] [place] [address] Dr. Loyd Coppola Monocytes/100 WBC (Bld) 5.2 % Normal 1.7-12.0 [facility] Comment on above: Performed By: #### C BC #### [facility] [address] [place] [address] Dr. Loyd Coppola NEUT # 6.4 103/ul Normal 1.4-6.5 [facility] Comment on above: Performed By: #### C BC #### [facility] [address] [place] [address] Dr. Loyd Coppola Neutrophils/100 WBC (Bld) 68.0 % Normal 43.0-75.0 [facility] Comment on above: Performed By: #### C BC #### [facility] [address] [address] [address] Loyd Coppola Platelet mean volume (Bld) [Entitic vol] 10.5 fL Normal 9.5-13.5 [facility] Comment on above: Performed By: #### C BC #### [facility] [address] [place] [address] Dr. Loyd Coppola PLT 171 103/ul Normal 150-450 [facility] Comment on above: Performed By: #### C BC #### [facility] [address] [address] [address] Loyd Coppola RBC 4.38 106/ul Normal 4.20-5.40 [facility] Comment on above: Performed By: #### C BC #### [facility] [address] [place] [address] Dr. Loyd Coppola WBC 9.4 103/ul Normal 4.0-11.0 [facility] Comment on above: Performed By: #### C BC #### [facility] [address] [place] [address] Dr. Loyd Coppola CULTURE URINEon 01-31-2023 CULTURE URINE Culture Observations : LIGHT GROWTH OF MIXED GENITAL CASSIDY. NO POTENTIAL PATHOGENS SEEN. Normal [facility] Comment on above: Performed By: #### C BC #### [facility] [address] [place] [address] Dr. Loyd Coppola CULTURE URINE Isolate 1 [...] F Trimethoprim/Sulfameth oxazole <=20 S F Normal [facility] Comment on above: Performed By: #### C BC #### [facility] [address] [place] [address] Dr. Loyd Coppola GLYCOHEMOGLOBIN A1Con 2022 ADA RECOMMENDATION SEE BELOW Normal [facility] Comment on above: Result Comment: ADA RECOMMENDED LIMIT 4.0 - 6.0 ADA THERAPEUTIC TARGET < 7.0 ACTION SUGGESTED > 7.0 Performed By: #### A 1C #### [facility] [address] [place] [address] Dr. Loyd Coppola Glucose [Mass/Vol] 100 mg/dL Normal [facility] Comment on above: Performed By: #### A 1C #### [facility] [address] [place] [address] Dr. Loyd Coppola HbA1c (Bld) [Mass fraction] 5.1 % Normal 4.5-6.2 [facility] Comment on above: Performed By: #### A 1C #### [facility] [address] [place] [address] Dr. Loyd Coppola TSHon 01-31-2023 TSH 0.495 uIU/mL Normal 0.358-3.740 [facility] Comment on above: Performed By: #### JESUS CHAVARRIA #### [facility] [address] [place] [address] Dr. Loyd Coppola TYPE AND SCREENon 01-31-2023 TYPE AND SCREEN Negative Normal [facility] Comment on above: Performed By: #### C BC #### [facility] [address] [place] [address] Dr. Loyd Coppola CBC AUTO DIFFon 01-28-2023 BASO # 0.0 103/ul Normal 0.0-0.1 [facility] Comment on above: Performed By: #### C BC #### [facility] [address] [place] [address] Dr. Loyd Coppola Basophils/100 WBC (Bld) 0.2 % Normal 0.2-2.0 [facility] Comment on above: Performed By: #### C BC #### [facility] [address] [place] [address] Dr. Loyd Coppola EO # 0.1 103/ul Normal 0.0-0.7 [facility] Comment on above: Performed By: #### C BC #### [facility] [address] [place] [address] Dr. Loyd Coppola Eosinophils/100 WBC (Bld) 0.8 % Critically low 0.9-7.0 [facility] Comment on above: Performed By: #### C BC #### [facility] [address] [place] [address] Dr. Loyd Coppola Erythrocyte distribution width (RBC) [Ratio] 12.3 % Normal 11.0-15.0 [facility] Comment on above: Performed By: #### C BC #### [facility] [address] [place] [address] Dr. Loyd Coppola Hematocrit (Bld) [Volume fraction] 45.0 % Normal 36.0-48.0 [facility] Comment on above: Performed By: #### C BC #### [facility] [address] [place] [address] Dr. Loyd Coppola Hemoglobin (Bld) [Mass/Vol] 16.3 g/dL Critically high 12.0-16.0 [facility] Comment on above: Performed By: #### C BC #### [facility] [address] [place] [address] Dr. Loyd Coppola IG # 0.03 10e3/ul Normal 0.00-0.03 [facility] Comment on above: Performed By: #### C BC #### [facility] [address] [place] [address] Dr. Loyd Coppola IG % 0.4 % Normal 0.0-0.5 [facility] Comment on above: Performed By: #### C BC #### [facility] [address] [place] [address] Dr. Loyd Coppola LYMPH # 1.4 103/ul Normal 1.2-3.8 [facility] Comment on above: Performed By: #### C BC #### [facility] [address] [place] [address] Dr. Loyd Coppola Lymphocytes/100 WBC (Bld) 16.8 % Critically low 20.5-60.0 [facility] Comment on above: Performed By: #### C BC #### [facility] [address] [place] [address] Dr. Loyd Coppola MANUAL DIFF REQ NO Normal [facility] Comment on above: Performed By: #### C BC #### [facility] [address] [place] [address] Dr. Loyd Coppola MCH (RBC) [Entitic mass] 32.1 pg Normal 26.7-34.0 [facility] Comment on above: Performed By: #### C BC #### [facility] [address] [place] [address] Dr. Loyd Coppola MCHC (RBC) [Mass/Vol] 36.2 g/dL Critically high 29.9-35.2 [facility] Comment on above: Performed By: #### C BC #### [facility] [address] [place] [address] Dr. Loyd Coppola MCV (RBC) [Entitic vol] 88.8 fL Normal 81.0-99.0 [facility] Comment on above: Performed By: #### C BC #### [facility] [address] [place] [address] Dr. Loyd Coppola MONO # 0.9 103/ul Critically high 0.3-0.8 [facility] Comment on above: Performed By: #### C BC #### [facility] [address] [place] [address] Dr. Loyd Coppola Monocytes/100 WBC (Bld) 10.5 % Normal 1.7-12.0 [facility] Comment on above: Performed By: #### C BC #### [facility] [address] [place] [address] Dr. Loyd Coppola NEUT # 6.0 103/ul Normal 1.4-6.5 [facility] Comment on above: Performed By: #### C BC #### [facility] [address] [place] [address] Dr. Loyd Coppola Neutrophils/100 WBC (Bld) 71.3 % Normal 43.0-75.0 [facility] Comment on above: Performed By: #### C BC #### [facility] [address] [place] [address] Dr. Loyd Coppola Platelet mean volume (Bld) [Entitic vol] 10.7 fL Normal 9.5-13.5 [facility] Comment on above: Performed By: #### C BC #### [facility] [address] [place] [address] Dr. Loyd Coppola PLT 174 103/ul Normal 150-450 [facility] Comment on above: Performed By: #### C BC #### [facility] [address] [place] [address] Dr. Loyd Coppola RBC 5.07 106/ul Normal 4.20-5.40 [facility] Comment on above: Performed By: #### C BC #### [facility] [address] [place] [address] Dr. Loyd Coppola WBC 8.4 103/ul Normal 4.0-11.0 [facility] Comment on above: Performed By: #### C BC #### [facility] [address] [place] [address] Dr. Loyd Coppola ER URINE PROFILEon 3 Bilirubin Ql (U) SMALL Abnormal NEGATIVE [facility] Comment on above: Performed By: #### Suzi ZAVALETA UMICRO #### [facility] [address] [place] [address] Dr. Loyd Coppola Clarity (U) CLEAR Normal CLEAR [facility] Comment on above: Performed By: #### Suzi ZAVALETA UMICRO #### [facility] [address] [place] [address] Dr. Loyd Coppola Color (U) YELLOW Normal YELLOW [facility] Comment on above: Performed By: #### Suzi ZAVALETA UMICRO #### [facility] [address] [place] [address] Dr. Loyd Coppola ERUGAYATHRI A micrscopic examination will be performed if indicated. Normal [facility] Comment on above: Performed By: #### JUSTIN CHAVARRIARO #### [facility] [address] [place] [address] Dr. Loyd Coppola Glucose Ql (U) Negative Normal NEGATIVE [facility] Comment on above: Performed By: #### JUSTIN CHAVARRIARO #### [facility] [address] [place] [address] Dr. Loyd Coppola Hemoglobin Ql (U) TRACE-INTACT Abnormal NEGATIVE [facility] Comment on above: Performed By: #### JUSTIN CHAVARRIARO #### [facility] [address] [place] [address] Dr. Loyd Coppola Ketones Ql (U) 80 mg/dl Abnormal NEGATIVE [facility] Comment on above: Performed By: #### JUSTIN CHAVARRIARO #### [facility] [address] [place] [address] Dr. Loyd Coppola LEUKOCYTES Negative Normal NEGATIVE [facility] Comment on above: Performed By: #### JUSTIN CHAVARRIARO #### [facility] [address] [place] [address] Dr. Loyd Coppola Nitrite Ql (U) Negative Normal NEGATIVE [facility] Comment on above: Performed By: #### JUSTIN CHAVARRIARO #### [facility] [address] [place] [address] Dr. Loyd Coppola pH (U) 6.5 [pH] Normal 5-9 [facility] Comment on above: Performed By: #### JUSTIN CHAVARRIARO #### [facility] [address] [place] [address] Dr. Loyd Coppola Protein (U) [Mass/Vol] 100 mg/dL Abnormal NEGATIVE/ TRACE [facility] Comment on above: Performed By: #### JUSTIN CHAVARRIARO #### [facility] [address] [place] [address] Dr. Loyd Coppola SPEC GRAVITY 1.030 Abnormal 1.005-<=1.025 [facility] Comment on above: Performed By: #### JUSTIN CHAVARRIARO #### [facility] [address] [place] [address] Dr. Loyd Coppola UR MICRO IND INDICATED Normal [facility] Comment on above: Performed By: #### JESUS CHAVARRIA #### [facility] [address] [place] [address] Dr. Loyd Coppola Urobilinogen Qn (U) 0.2 {Taylor'U}/dL Normal 0.2 - 1. 0 [facility] Comment on above: Performed By: #### JESUS CHAVARRIA #### [facility] [address] [place] [address] Dr. Loyd Coppola PROF 14(COMP METB)on 023 Albumin [Mass/Vol] 3.5 g/dL Normal 3.4-5.0 [facility] Comment on above: Performed By: #### C BC #### [facility] [address] [place] [address] Dr. Loyd Coppola Albumin/Globulin [Mass ratio] 0.9 {ratio} Normal [facility] Comment on above: Performed By: #### C BC #### [facility] [address] [place] [address] Dr. Loyd Coppola ALP [Catalytic activity/Vol] 61 U/L Normal 46-116 [facility] Comment on above: Performed By: #### C BC #### [facility] [address] [place] [address] Dr. Loyd Coppola ALT [Catalytic activity/Vol] 29 U/L Normal 14-59 [facility] Comment on above: Performed By: #### C BC #### [facility] [address] [place] [address] Dr. Loyd Coppola Anion gap [Moles/Vol] 12.0 mmol/L Normal [facility] Comment on above: Performed By: #### C BC #### [facility] [address] [place] [address] Dr. Loyd Coppola AST [Catalytic activity/Vol] 24 U/L Normal 15-37 [facility] Comment on above: Performed By: #### C BC #### [facility] [address] [place] [address] Dr. Loyd Coppola Bilirubin [Mass/Vol] 0.4 mg/dL Normal 0.2-1.0 [facility] Comment on above: Performed By: #### C BC #### [facility] [address] [address] [address] Loyd Coppola Calcium [Mass/Vol] 8.6 mg/dL Normal 8.5-10.1 [facility] Comment on above: Performed By: #### C BC #### [facility] [address] [address] [address] Loyd Coppola Chloride [Moles/Vol] 99 mmol/L Normal 98-107 [facility] Comment on above: Performed By: #### C BC #### [facility] [address] [place] [address] Dr. Loyd Coppola CO2 [Moles/Vol] 24.9 mmol/L Normal 21.0-32.0 [facility] Comment on above: Performed By: #### C BC #### [facility] [address] [place] [address] Dr. Loyd Coppola Creatinine [Mass/Vol] 0.55 mg/dL Normal 0.55-1.02 [facility] Comment on above: Performed By: #### C BC #### [facility] [address] [place] [address] Dr. Loyd Coppola EGFR-AF PANAMANIAN >60 Normal >=[address] [facility] Comment on above: Performed By: #### C BC #### [facility] [address] [place] [address] Dr. Loyd Coppola EGFR-NON AF PANAMANIAN >60 Normal >=60 [facility] Comment on above: Performed By: #### C BC #### [facility] [address] [address] [address] Loyd Coppola Globulin (S) [Mass/Vol] 3.8 g/dL Normal [facility] Comment on above: Performed By: #### C BC #### [facility] [address] [place] [address] Dr. Loyd Coppola Glucose [Mass/Vol] 106 mg/dL Normal 74-106 [facility] Comment on above: Performed By: #### C BC #### [facility] [address] [address] [address] Loyd Coppola Potassium [Moles/Vol] 2.9 mmol/L Critically low 3.5-5.1 [facility] Comment on above: Performed By: #### C BC #### [facility] [address] [address] [address] Loyd Coppola Protein [Mass/Vol] 7.3 g/dL Normal 6.4-8.2 [facility] Comment on above: Performed By: #### C BC #### [facility] [address] [address] [address] Loyd Coppola Sodium [Moles/Vol] 135 mmol/L Critically low 136-145 [facility] Comment on above: Performed By: #### C BC #### [facility] [address] [place] [address] Dr. Loyd Coppola Urea nitrogen [Mass/Vol] 12.0 mg/dL Normal 7.0-18.0 [facility] Comment on above: Performed By: #### C BC #### [facility] [address] [address] [address] Loyd Coppola Urea nitrogen/Creatinine [Mass ratio] 21.8 mg/mg Normal [facility] Comment on above: Performed By: #### C BC #### [facility] [address] [address] [address] Loyd Coppola URINE MICROSCOPIC ONLYon BACTERIA MODERATE Abnormal NONE SEEN [facility] Comment on above: Performed By: #### Suzi ZAVALETA UMICRO #### [facility] [address] [address] [address] Loyd Coppola Bacteria identified Cx Nom (U) INDICATED Normal [facility] Comment on above: Performed By: #### E MEGHANN UMICRO #### [facility] [address] [place], [place] [id number] Dr. Loyd Coppola CAST NONE SEEN Normal NONE SEEN [facility] Comment on above: Performed By: #### Suzi ZAVALETA UMICRO #### [facility] [address] [address] [address] Loyd Coppola Crystals LM Nom (Urine sed) NONE SEEN Normal NONE SEEN [facility] Comment on above: Performed By: #### E SUHAR, UMICRO #### [facility] [address] [address] [address] Loyd Coppola Epithelial cells LM Ql (Urine sed) MANY Abnormal NONE SEEN /RARE [facility] Comment on above: Performed By: #### E SUHAR, UMICRO #### [facility] [address] [address] [address] Loyd Coppola MUCOUS SMALL Abnormal NONE SEEN [facility] Comment on above: Performed By: #### E SUHAR, UMICRO #### [facility] [address] [place] [address] Dr. Loyd Coppola RBC 0-2 Normal 0-2 [facility] Comment on above: Performed By: #### Suzi ZAVALETA, UMICRO #### [facility] [address] [address] [address] Loyd Coppola WBC 2-5 Abnormal NONE SEEN [facility] Comment on above: Performed By: #### Suzi ZAVALETA, UMICRO #### [facility] [address] [place] [address] Dr. Loyd Coppola US PREG TVon 01-23-2023 [...] YOMAIRA GONZALEZ Date: 2023-01-23 15:42 Normal [facility] PAP ACOG PANEL 2: 21 to 29on 09-19-2022 . . Normal [facility] Comment on above: Performed By: #### [id number] #### [facility] [address] [place] [address] Dr. Loyd Coppola Age Gdln ACOG Testing 21-29 [facility] Comment on above: Performed By: #### [id number] #### [facility] [address] [address] [address] Loyd Coppola DIAGNOSIS: Comment Normal [facility] Comment on above: Result Comment: NEGA TIVE FOR INTRAEPITHELIAL LESION OR MALIGNANCY. Performed By: #### [id number] #### [facility] [address] [place] [address] Dr. Loyd Coppola Methodology: Comment [facility] Comment on above: Result Comment: This liquid based ThinPrep(R) pap test was screened with the use of an image guided system. Performed By: #### [id number] #### [facility] [address] [place] [address] Dr. Loyd Coppola Note: Comment [facility] Comment on above: Result Comment: The Pap smear is a screening test designed to aid in the detection of premalignant and malignant conditions of the uterine cervix. It is not a diagnostic procedure and should not be used as the sole means of detecting cervical cancer. Both false-positive and false-negative reports do occur. . Performed By: #### [id number] #### [facility] [address] [place] [address] Dr. Loyd Cpopola Performed by: Comment Normal [facility] Comment on above: Result Comment: Celestina Velasco, Broadcast Supervisor (ASCP) Performed By: #### [id number] #### [facility] [address] [place] [address] Dr. Loyd Coppola Reflex Criteria: Comment [facility] Comment on above: Result Comment: The HPV DNA reflex criteria were not met with this specimen result therefore, no HPV testing was performed. . Performed By: #### [id number] #### [facility] [address] [place] [address] Dr. Loyd Coppola Specimen adequacy: Comment Normal [facility] Comment on above: Result Comment: Sati sfactory for evaluation. Endocervical and/or squamous metaplastic cells (endocervical component) are present. Performed By: #### [id number] #### [facility] [address] [address] [address] Loyd Coppola Vital Signs Date Time Vital Sign Value Performing Clinician Facility 06-07-2025 10:36-0400 Diastolic blood pressure 88 mm[Hg] Nolan Sebastian DO Work Phone: [facility] 06-07-2025 10:36-0400 Systolic blood pressure 158 mm[Hg] Nolan Sebastian DO Work Phone: [facility] 06-07-2025 10:29-0400 Body mass index (BMI) [Ratio] 49.34 kg/m2 Nolan Sebastian DO Work Phone: [facility] 06-07-2025 10:29-0400 Body weight 142.88 kg Nolan Sebastian DO Work Phone: [facility] 05-31-2025 11:04-0400 Body mass index (BMI) [Ratio] 49.49 kg/m2 Kristan Polina PA Work Phone: [facility] 05-31-2025 11:04-0400 Body weight 143.34 kg Kristan Polina PA Work Phone: [facility] 05-31-2025 11:04-0400 Diastolic blood pressure 84 mm[Hg] Kristan Ingleside PA Work Phone: [facility] 05-31-2025 11:04-0400 Systolic blood pressure 130 mm[Hg] Kristan Ingleside PA Work Phone: [facility] 05-24-2025 08:59-0400 Body mass index (BMI) [Ratio] 48.12 kg/m2 Kristan Polina PA Work Phone: [facility] 05-24-2025 08:59-0400 Body weight 139.37 kg Kristan Polina PA Work Phone: [facility] 05-24-2025 08:59-0400 Diastolic blood pressure 82 mm[Hg] Kristan Hall PA Work Phone: [facility] 05-24-2025 08:59-0400 Systolic blood pressure 130 mm[Hg] Kristan Polina PA Work Phone: [facility] 05-17-2025 11:58-0400 Body mass index (BMI) [Ratio] 47.58 kg/m2 Nolan Sebastian DO Work Phone: [facility] 05-17-2025 11:58-0400 Body weight 137.8 kg Nolan Sebastian DO Work Phone: [facility] 05-17-2025 11:58-0400 Diastolic blood pressure 78 mm[Hg] Nolan Sebastian DO Work Phone: [facility] 05-17-2025 11:58-0400 Systolic blood pressure 126 mm[Hg] Nolan Sebastian DO Work Phone: [facility] 05-02-2025 10:56-0400 Body mass index (BMI) [Ratio] 47.16 kg/m2 Kristan Polina PA Work Phone: [facility] 05-02-2025 10:56-0400 Body weight 136.59 kg Kristan Ingleside PA Work Phone: [facility] 05-02-2025 10:56-0400 Diastolic blood pressure 82 mm[Hg] Kristan Ingleside PA Work Phone: [facility] 05-02-2025 10:56-0400 Systolic blood pressure 130 mm[Hg] Kristan Polina PA Work Phone: [facility] 04-18-2025 13:11-0400 Body mass index (BMI) [Ratio] 46.27 kg/m2 Nolan Sebastian DO Work Phone: [facility] 04-18-2025 13:11-0400 Body weight 133.99 kg Nolan Sebastian DO Work Phone: [facility] 04-18-2025 13:11-0400 Diastolic blood pressure 74 mm[Hg] Nolan Sebastian DO Work Phone: [facility] 04-18-2025 13:11-0400 Systolic blood pressure 120 mm[Hg] Nolan Sebastian DO Work Phone: [facility] 04-05-2025 14:05-0400 Body mass index (BMI) [Ratio] 46.52 kg/m2 Nolan Sebastian DO Work Phone: [facility] 04-05-2025 14:05-0400 Body weight 134.72 kg Nolan Sebastian DO Work Phone: [facility] 04-05-2025 14:05-0400 Diastolic blood pressure 72 mm[Hg] Nolan Sebastian DO Work Phone: [facility] 04-05-2025 14:05-0400 Systolic blood pressure 110 mm[Hg] Nolan Sebastian DO Work Phone: [facility] 03-14-2025 14:00-0400 Body mass index (BMI) [Ratio] 46.05 kg/m2 Nolan Sebastian DO Work Phone: [facility] 03-14-2025 14:00-0400 Body weight 133.36 kg Nolan Sebastian DO Work Phone: [facility] 03-14-2025 14:00-0400 Diastolic blood pressure 72 mm[Hg] Nolan Sebastian DO Work Phone: [facility] 03-14-2025 14:00-0400 Systolic blood pressure 118 mm[Hg] Nolan Sebastian DO Work Phone: [facility] 03-08-2025 13:08-0400 Body mass index (BMI) [Ratio] 45.7 kg/m2 Kenya Lavoy PA-C Work Phone: [facility] 03-08-2025 13:08-0400 Body weight 132.36 kg Kenya Lavoy PA-C Work Phone: [facility] 03-08-2025 13:08-0400 Diastolic blood pressure 66 mm[Hg] Kenya Lavoy PA-C Work Phone: [facility] 03-08-2025 13:08-0400 Heart rate 95 /min Kenya Acosta PA-C Work Phone: [facility] 03-08-2025 13:08-0400 Systolic blood pressure 125 mm[Hg] Kenya Acosta PA-C Work Phone: [facility] 02-21-2025 13:59-0400 Body mass index (BMI) [Ratio] 45.42 kg/m2 Nolan Sebastian DO Work Phone: [facility] 02-21-2025 13:59-0400 Body weight 131.54 kg Nolan Sebastian DO Work Phone: [facility] 02-21-2025 13:59-0400 Diastolic blood pressure 84 mm[Hg] Nolan Sebastian DO Work Phone: [facility] 02-21-2025 13:59-0400 Systolic blood pressure 122 mm[Hg] Nolan Sebastian DO Work Phone: [facility] 02-16-2025 13:18-0400 Body mass index (BMI) [Ratio] 44.79 kg/m2 Violet Lopez RN Work Phone: [facility] 02-16-2025 13:18-0400 Body weight 129.73 kg Violet Lopez RN Work Phone: [facility] 12-28-2024 13:59-0500 Body mass index (BMI) [Ratio] 44.14 kg/m2 Nolan Seabstian DO Work Phone: [facility] 12-28-2024 13:59-0500 Body weight 127.82 kg Nolan Sebastian DO Work Phone: [facility] 12-28-2024 13:59-0500 Diastolic blood pressure 84 mm[Hg] Nolan Sebastian DO Work Phone: [facility] 12-28-2024 13:59-0500 Systolic blood pressure 126 mm[Hg] Nolan Sebastian DO Work Phone: [facility] 11-26-2024 09:44-0500 Body mass index (BMI) [Ratio] 43.95 kg/m2 [facility] 11-26-2024 09:44-0500 Body weight 127.28 kg Noms Nurse [facility] 03-23-2023 03:40-0400 Body weight 122.[address] JULIANNE LAMBERT . [facility] Comment on above: Performed By: #### JAIME, JESUS #### [facility] [address] [address] [address] Loyd Coppola Encounters Encounter Date Encounter Type Care Provider Facility Start: 06-07-2025 End: 06-07-2025 flow sheet Nolan Sebastian DO Work Phone: [facility] JOSUÉ Comment on above: Throbbing headache; Encounter for visit ([facility]) Start: 06-04-2025 End: 06-04-2025 Clinisync Result Encounter Nolan Sebastian DO Work Phone: [facility] Unsolicited Start: 06-04-2025 End: 06-04-2025 Clinisync Result Encounter Nolan Sebastian DO Work Phone: [facility] Unsolicited Start: 06-03-2025 End: 06-03-2025 Clinisync Result Encounter Nolan Sebastian DO Work Phone: [facility] Unsolicited Start: 06-03-2025 End: 06-03-2025 Clinisync Result Encounter Nolan Sebastian DO Work Phone: [facility] Unsolicited Start: 06-02-2025 End: 06-02-2025 Clinisync Result Encounter Nolan Sebastian DO Work Phone: [facility] Unsolicited Start: 06-02-2025 End: 06-02-2025 Clinisync Result Encounter Nolan Sebastian DO Work Phone: [facility] Unsolicited Start: 06-02-2025 End: 06-02-2025 Office outpatient visit 15 minutes Kareem Cummings TRANSFER STATION ATTENDANT-DIRECTOR CLIENT Work Phone: [facility] Comment on above: Gestational diabetes mellitus (GDM) in third trimester controlled on oral hypoglycemic drug (Primary Dx) Start: 06-02-2025 End: 06-02-2025 ambulatory KAREEM CUMMINGS [facility] Start: 05-31-2025 End: 05-31-2025 Bamboo flowsheet Kristan RUBIO Work Phone: [facility] Start: 05-31-2025 End: 05-31-2025 Bamboo flowsheet Kristan RUBIO Work Phone: [facility] Start: 05-31-2025 End: 05-31-2025 ambulatory KRISTAN HALL Not Available Start: 05-31-2025 End: 05-31-2025 flow sheet Kristan RUBIO Work Phone: [facility] Comment on above: Third trimester preg minh ([facility]); 36 weeks gestation of ([facility]) Start: 05-30-2025 End: 05-30-2025 Clinisync Result Encounter [...] Start: 05-24-2025 End: 05-24-2025 Telephone encounter Rufina Vickey CRIMINAL RESEARCH SPECIALIST [facility] Start: 05-24-2025 End: 05-24-2025 ambulatory KRISTAN HALL Not Available Start: 05-24-2025 End: 05-24-2025 flow sheet Kristan Hall PA Work Phone: [facility] Comment on above: Third trimester preg minh ([facility]); 35 weeks gestation of ([facility]); induced hypertension, antepartum ([facility]) Start: 05-17-2025 End: 05-17-2025 Bamboo flowsheet Nolan Sebastian DO Work Phone: [facility] Start: 05-17-2025 End: 05-17-2025 Bamboo flowsheet Nolan Sebastian DO Work Phone: [facility] Start: 05-17-2025 End: 05-17-2025 flow sheet Nolan Sebastian DO Work Phone: [facility] Comment on above: Third trimester preg minh ([facility]); 34 weeks gestation of ([facility]); Gestational diabetes mellitus (GDM), antepartum, gestational diabetes method of control unspecified ([facility]) Start: 05-17-2025 End: 05-17-2025 ambulatory NOLAN [...] on above: 32 weeks gestation o f ([facility]); Third trimester ([facility]) Start: 05-02-2025 End: 05-02-2025 ambulatory KRISTAN HALL Not Available Start: 04-29-2025 End: 04-29-2025 Telephone encounter Rufina Hurd CRIMINAL RESEARCH SPECIALIST Maternal- Medic ine at [facility] Start: 04-25-2025 End: 04-25-2025 Clinisync Result Encounter Nolan Sebastian DO Work Phone: [facility] Unsolicited Start: 04-25-2025 End: 04-25-2025 Clinisync Result Encounter Nolan Sebastian DO Work Phone: [facility] Unsolicited Start: 04-19-2025 End: 04-19-2025 Telephone encounter Rufina Hurd CRIMINAL RESEARCH SPECIALIST Maternal- Medic ine at [facility] Start: 04-19-2025 End: 04-19-2025 Office outpatient visit 25 minutes Kenya Acosta PAAndi Work Phone: Maternal- Medicine at [facility] Comment on above: Gestational diabetes mellitus (GDM) in second trimester controlled on oral hypoglycemic drug (Primary Dx) Start: 04-19-2025 End: 04-19-2025 ambulatory KENYA ACOSTA [facility] Start: 04-18-2025 End: 04-18-2025 Bamboo flowsheet [...] 03-23-2025 End: 03-23-2025 Telephone encounter Rufina Hurd CRIMINAL RESEARCH SPECIALIST Maternal- Medic ine at [facility] Start: 03-23-2025 End: 03-23-2025 Office outpatient visit 25 minutes Kareem Isabel LLOYD-DIRECTOR CLIENT Work Phone: Maternal- Medicine at [facility] Comment on above: Gestational diabetes mellitus (GDM) in second trimester controlled on oral hypoglycemic drug Start: 03-23-2025 End: 03-23-[address] [facility] Start: 03-16-2025 End: 03-16-2025 Telephone encounter Violet Lopez RN Work Phone: Maternal- Medicine at [facility] Start: 03-14-2025 End: 03-14-2025 Bamboo flowsheet [...] 03-08-2025 End: 03-08-2025 Telephone encounter Rufina Hurd CRIMINAL RESEARCH SPECIALIST Maternal- Medic ine at [facility] Start: 03-08-2025 End: 03-08-2025 Office outpatient new 45 minutes Kenya Acosta PA-C Work Phone: Maternal- Medicine at [facility] Comment on above: Gestational diabetes mellitus (GDM) in second trimester controlled on oral hypoglycemic drug (Primary Dx) Start: 03-08-2025 End: 03-08-2025 ambulatory KENYA ACOSTA [facility] Start: 03-07-2025 End: 03-07-2025 Clinisync Result Encounter Nolan Sebastian DO Work Phone: [facility] External [facility] Unsolicited Start: 03-07-2025 End: 03-07-2025 Clinisync Result Encounter Nolan Sebastian DO Work Phone: [facility] External [facility] Unsolicited Start: 03-04-2025 End: 03-04-2025 Telephone encounter Shima Renee RN Maternal- Medic ine at [facility] Start: 03-02-2025 End: 03-02-2025 Telephone encounter Shima Renee RN Maternal- Medic ine at [facility] Start: 02-24-2025 End: 02-24-2025 Telephone encounter Jewels BARRY Work Phone: Maternal- Medicine at [facility] Start: 02-21-2025 End: 02-21-2025 Bamboo flowsheet [...] of Start: 02-16-2025 End: 02-16-2025 ambulatory ALEXANDRIA IRAHETA [facility] Start: 02-16-2025 End: 02-16-2025 Diabetic care education Violet Lopez RN Work Phone: Maternal- Medicine at [facility] Comment on above: Diet controlled gest ational diabetes mellitus (GDM) in second trimester (Primary Dx); Encounter for diabetes education Start: 02-14-2025 End: 02-14-2025 ambulatory NOLAN SEBASTIAN Not Available Start: 02-07-2025 End: 02-07-2025 Chart abstracting Kareem Isabel TRANSFER STATION ATTENDANT-DIRECTOR CLIENT Work Phone: Maternal- Medicine at [facility] Start: 02-07-2025 End: 02-09-2025 Clinisync Result Encounter Nolan Sebastian DO Work Phone: [facility] Unsolicited Start: 02-07-2025 End: 02-09-2025 Clinisync Result Encounter Nolan Sebastian DO Work Phone: [facility] Unsolicited Start: 01-24-2025 End: 01-24-2025 ambulatory NOLAN SEBASTIAN Not Available Start: 01-08-2025 End: 01-08-2025 Clinisync Result Encounter Noaln Sebastian DO Work Phone: [facility] [...] Unsolicited Start: 11-26-2024 End: 11-26-2024 ambulatory NOLAN CORTES Not Available Start: 11-26-2024 End: 11-26-2024 Office outpatient visit 5 minutes [facility] Sebastian Nurse [facility] Comment on above: GA: 10w0d Start: 04-09-[address] NOLAN CORTES . Facili ty:[facility]1 Start: 03-29-2023 End: 03-30-2023 ambulatory KRISTAN HALL . Facility: Start: 03-21-2023 End: 03-22-[address] NOLAN [...] Date Procedure Procedure Detail Performing Clinician Start: 06-04-2025 ALL CBC WITH AUTO DIFF Nolan Sebastian DO Work Phone: Start: 06-03-2025 ALL CBC WITH AUTO DIFF Nolan Sebastian DO Work Phone: Start: 06-02-2025 ALL CBC WITH AUTO DIFF Nolan Sebastian DO Work Phone: Start: 05-31-2025 Urnls dip stick/tabl et rgnt non-auto w/o micrscp Kristan Polina PA Work Phone: Start: 05-30-2025 US OB BPP [...] Nolan Sebastian DO Work Phone: Start: 05-16-2025 OB BPP W NON-STRESS Nolan Sebastian DO Work Phone: Start: 05-09-2025 US OB BPP W NON-STRESS Nolan Sebastian DO Work Phone: Start: 05-02-2025 US OB BPP W NON-STRESS Nolan Sebastian DO Work Phone: Start: 05-02-2025 Urnls dip stick/tabl et rgnt non-auto w/o micrscp Armida Albrecht NP Work Phone: Start: 04-25-2025 US OB BPP W NON-STRESS Nolan Sebastian DO Work Phone: Start: 04-18-2025 US OB BPP W NON-STRESS Nolan Sebastian DO Work Phone: Start: 04-18-2025 Urnls dip stick/tabl et rgnt non-auto w/o micrscp Nolan Sebastian DO Work Phone: Start: 04-11-2025 US OB BPP W NON-STRESS Nolan Sebastian [...] quantitative blood xcpt reagent strip Kareem Cummings TRANSFER STATION ATTENDANT-DIRECTOR CLIENT Work Phone: Start: 02-07-2025 AFP, SERUM, OPEN [...] Phone: Start: 11-27-2024 Antibody screen Maame Cummings TRANSFER STATION ATTENDANT-DIRECTOR CLIENT Work Phone: Start: 11-27-2024 Drug scrn 1+ [...] 11-27-2024 ALL CBC WITH AUTO DIFF Nolan Cortes DO Work Phone: Start: 02-19-2023 Microscopic observat ion [Identifier] in Cervix by Cyto stain Kareem Cummings TRANSFER STATION ATTENDANT-DIRECTOR CLIENT Work Phone: Plan of Treatment Date Care Activity Detail Author Start: 03-08-2026 Adult BMI Screening Adult BMI Screen ing [facility] Start: 02-19-2026 Screening for malign ant neoplasm of cervix Pap Smear [facility] Start: 02-16-2026 Adult BMI Screening Adult BMI Screen ing [facility] Start: 07-11-2025 Influenza vaccination Influenza Vacc ine [facility] Start: 06-07-2025 End: 06-07-2025 Patient encounter procedure [facility] Start: 06-02-2025 End: 06-02-2025 Telemedicine consultation with patient 06/02/2025 9:30 AM EDT Telemedicine Maternal- Medicine at [facility] [address] [place] [phone] Kareem Cummings, TRANSFER STATION ATTENDANT-DIRECTOR CLIENT [address] [place], [place] [id number] Maternal- Medicine at [facility] Start: 05-31-2025 End: 05-31-2026 CULTURE, GROUP B STREP WITH SUSCEPTIBLITY CULTURE, GROUP B STREP WITH SUSCEPTIBLITY Lab Routine Third trimester ([facility]) Expected: 05/31/2025, Expires: 05/31/2026 [facility] Work Phone: Comment on above: Expected: 05/31/2025 , Expires: 05/31/2026 Start: 05-31-2025 End: 05-31-2025 Patient encounter procedure 05/31/2025 10:50 AM EDT Routine [facility] [address] [facility] [place] [address] Kristan Hall PA [address] [place] [address] [facility] Start: 05-24-2025 End: 05-24-2025 Patient encounter procedure 05/24/2025 8:40 AM EDT Routine [facility] [address] [place] [address] Kristan Hall PA [address] [place] [address] [facility] Start: 05-17-2025 End: 05-17-2025 Patient encounter procedure 05/17/2025 11:40 AM EDT Routine [facility] [address] [place] [id number] Nolan Cortes, DO [address] [place] [address] [facility] Start: 05-02-2025 End: 05-02-2025 Patient encounter procedure [facility] Comment on above: Arrived Start: 04-19-2025 End: 04-19-2025 Telemedicine consultation with patient 04/19/2025 10:30 AM EDT Telemedicine Maternal- Medicine at [facility] [address] [place] [facility] [place] [place] [address] Kenya Acosta, UDAY [address] [place] [address] Maternal- Medicine at [facility] Start: 04-18-2025 End: 04-18-2025 Patient encounter procedure 04/18/2025 1:00 PM EDT Routine [facility] [address] [place] [phone] Nolan Cortes, DO [address] [place] [address] [facility] Start: 04-05-2025 End: 10-06-2025 [...] 10:30 AM EDT Telemedicine Maternal- Medicine at [facility] [address] [place] [address] Kareem Cummings, TRANSFER STATION ATTENDANT-DIRECTOR CLIENT [address] [place] [address] Maternal- Medicine at [facility] Start: 03-14-2025 End: 03-14-2025 Patient encounter procedure 03/14/2025 1:50 PM EDT Routine [facility] [address] [place] [phone] Nolan Cortes, [address] [place] [address] [facility] Start: 03-08-2025 End: 06-07-2025 Protein creat ratio Protein creat ratio Lab Routine Gestational diabetes mellitus (GDM) in second trimester controlled on oral hypoglycemic drug Expected: 03/08/2025 (Approximate), Expires: 06/07/2025 [facility] Comment on above: Expected: 03/08/2025 (Approximate), Expires: 06/07/2025 Start: 03-08-2025 End: 03-08-2025 Patient encounter procedure 03/08/2025 1:00 PM EDT Office Visit Maternal- Medicine at [facility] [address] [place] [facility] [place] [address] Kenya Acosta PA-C [address] [address] Maternal- Medicine at [facility] Start: 02-21-2025 End: 02-21-2025 Patient encounter procedure 02/21/2025 1:20 PM EDT Routine [facility] [address] [place] [phone] Nolan Cortes, DO [address] [place] [address] [facility] Start: 02-14-2025 End: 02-14-2025 Professional / ancillary services management 02/14/2025 1:00 PM EDT Ancillary Procedure [facility] [address] [place] [phone] [facility] Start: 02-10-2025 End: 02-10-2025 ambulatory 02/10/2025 1:30 PM EDT Support Visit Maternal- Medicine at [facility] [address] [place] [address] Violet Lopez, RN [address] [address] Jewels Pedersen, [place] [address] [place] [address] Maternal- Medicine at [facility] Start: 01-24-2025 End: 01-24-2025 Patient encounter procedure 01/24/2025 11:20 AM EDT Routine [facility] [address] [place] [phone] Nolan Cortes, DO [address] [place] [address] [facility] Start: 12-28-2024 End: 12-28-2025 Measurement of glucose 1 hour after glucose challenge for glucose tolerance test Glucose tolerance, 1 hour Lab Routine Diabetes mellitus screening Expected: 12/28/2024 (Approximate), Expires: 12/28/2025 [facility] Work Phone: Comment on above: Expected: 12/28/2024 (Approximate), Expires: 12/28/2025 Start: 12-28-2024 End: 12-28-2024 Patient encounter procedure [facility] Comment on above: Arrived Start: 12-27-2024 End: 12-27-2024 Patient encounter procedure 12/27/2024 1:40 PM EST Routine [facility] [address] [place] [phone] Nolan Cortes, DO [address] [facility] [place] [address] [facility] Start: 11-26-2024 End: 11-26-2025 ABO/Rh ABO/Rh Lab Routine Missed menses , unspecified gestational age Expected: 11/26/2024 (Approximate), Expires: 11/26/2025 [facility] Comment on above: Expected: 11/26/2024 (Approximate), Expires: 11/26/2025 Start: 11-26-2024 End: 11-26-2025 Blood type and Indirect antibody screen panel - Blood Type and screen Lab Routine Missed menses , unspecified gestational age Expected: 11/26/2024 (Approximate), Expires: 11/26/2025 [facility] Work Phone: Comment on above: Expected: 11/26/2024 (Approximate), Expires: 11/26/2025 Start: 11-26-2024 End: 11-26-2025 Drugs of abuse panel - Urine by Screen method Rapid drug screen, urine Lab Routine , unspecified gestational age Encounter for supervision of normal first in first trimester Expected: 11/26/2024 (Approximate), Expires: 11/26/2025 [facility] Comment on above: Expected: 11/26/2024 (Approximate), Expires: 11/26/2025 Start: 07-11-2024 Influenza vaccination Influenza Vacc ine [facility] Start: 04-22-2024 Adult BMI Screening Adult BMI Screen ing [facility] Start: 04-22-2024 Tobacco Screening Tobacco Screening [facility] Start: 2011 DTaP,Tdap and Td Vaccines (1 - Tdap) DTaP,Tdap and Td Vaccines (1 - Tdap) [facility] Start: 2004 Depression Screening Depression Scre ening [facility] Start: 2004 Tobacco Screening Tobacco Screening [facility] Bacteria identified in Urine by Culture Urine culture Microbiology Routine Missed menses Ordered: 11/26/2024 [facility] Comment on above: Ordered: 11/26/2024 CBC W Auto Different ial panel - Blood CBC and differential Lab Routine Missed menses , unspecified gestational age Ordered: 11/26/2024 [facility] Comment on above: Ordered: 11/26/2024 End: 03-08-2026 Comprehensive metabolic 2000 panel - Serum or Plasma Comprehensive metabolic panel Lab Routine Gestational diabetes mellitus (GDM) in second trimester controlled on oral hypoglycemic drug 1 Occurrences starting 03/08/2025 until 03/08/2026 [employer] Work Phone: Comment on above: 1 Occurrences starti ng 03/08/2025 until 03/08/2026 Hemoglobin A1c/Hemoglobin.total in Blood Hemoglobin A1c Lab Routine Missed menses , unspecified gestational age Ordered: 11/26/2024 [facility] Comment on above: Ordered: 11/26/2024 Hepatitis B virus surface Ag [Presence] in Serum or Plasma by Immunoassay Hepatitis B surface antigen Lab Routine Missed menses , unspecified gestational age Ordered: 11/26/2024 [facility] Comment on above: Ordered: 11/26/2024 Hepatitis C virus Ab [Presence] in Serum or Plasma by Immunoassay Hepatitis C antibody Lab Routine Missed menses , unspecified gestational age Ordered: 11/26/2024 [facility] Comment on above: Ordered: 11/26/2024 HIV-1/HIV-2 antigen/antibody combination immunoassay HIV-1 and HIV-2 antibodies Lab Routine Missed menses , unspecified gestational age Ordered: 11/26/2024 [facility] Comment on above: Ordered: 11/26/2024 Reagin Ab [Presence] in Serum by RPR RPR Lab Routine Missed menses , unspecified gestational age Ordered: 11/26/2024 [facility] Comment on above: Ordered: 11/26/2024 Rubella antibody, IgG Rubella an tibody, IgG Lab Routine Missed menses , unspecified gestational age Ordered: 11/26/2024 [facility] Comment on above: Ordered: 11/26/2024 End: 10-06-2025 US for US OB follow up transabdominal approach Imaging Routine Gestational diabetes mellitus (GDM), antepartum, gestational diabetes method of control unspecified H/O: hypertension [id number] for 4 Occurrences starting 04/05/2025 until 10/06/2025 [facility] Work Phone: Comment on above: [id number] for 4 Occurr ences starting 04/05/2025 until 10/06/2025 Immunizations Immunization Date Immunization Notes Care Provider [facility] 10-10-2023 influenza virus vaccine, unspecified formulation Kareem Cummings TRANSFER STATION ATTENDANT-DIRECTOR CLIENT Work Phone: [employer] 08-25-2021 RHO(D) immune globul in- IV or IM Kareem Cummings TRANSFER STATION ATTENDANT-DIRECTOR CLIENT Work Phone: [facility] Payers Date Payer Category Payer [facility] BCBS [id number] 2018 [facility] Managed [employer] - PPO ANTHEM [id number] 1992 Unknown [id number] 2.16.840.1.451886.3.579. 2.593 1992 Unknown [id number] 2.16.840.1.572475.3.579. 2.593 1992 Unknown [id number] 2.16.840.1.767338.3.579. 2.593 1992 Unknown [id number] 2.16.840.1.792382.3.579. 2.593 1992 Unknown [id number] 2.16.840.1.122430.3.579. 2.593 1992 Unknown [id number] 2.16.840.1.510398.3.579. 2.593 1992 Unknown [id number] 2.16.840.1.424047.3.579. 2.593 1992 Unknown [id number] 2.16.840.1.138332.3.579. 2.593 1992 Unknown [id number] 2.16.840.1.451378.3.579. 2.593 1992 Unknown [id number] 2.16.840.1.009169.3.579. 2.1259 1992 Unknown [id number] 2.16.840.1.624345.3.579. 2.1259 1992 Unknown [id number] 2.16.840.1.303433.3.579. 2.1259 1992 Unknown [id number] 2.16.840.1.219324.3.579. 2.9 1992 Unknown [id number] 2.16.840.1.382481.3.579. 2.1259 1992 Unknown [id number] 2.16.840.1.285985.3.579. 2.1258 1992 Unknown [id number] 2.16.840.1.318865.3.579. 2.9 1992 Unknown [id number] 2.16.840.1.820353.3.579. 2.9 1992 Unknown [id number] 2.16.840.1.849297.3.579. 2.9 1992 Unknown [id number] 2.16.840.1.411005.3.579. 2.1258 1992 Unknown [id number] 2.16.840.1.009190.3.579. 2.9 1992 Unknown [id number] 2.16.840.1.156659.3.579. 2.9 1992 Unknown [id number] 2.16.840.1.681928.3.579. 2.6 1992 Unknown [id number] 2.16.840.1.255144.3.579. 2.128 1992 Unknown [id number] 2.16.840.1.892755.3.579. 2.128 1992 Unknown [id number] 2.16.840.1.664455.3.579. 2.1285 1992 Unknown [id number] 2.16.840.1.335583.3.579. 2.1286 1959 Unknown [id number] Social History Date Type Detail Facility Start: 02-18-2023 End: 04-22-2023 Tobacco smoking status NHIS Ex-smoker [facility] History of tobacco use Current smoker [facility] History of tobacco use Cigarette Smoker [facility] Start: 11-26-2024 End: 06-07-2025 Alcoholic beverage intake Lifetime non-drinker (finding) [facility] Start: 03-18-2024 End: 11-26-2024 History of Social function [facility] Start: 03-18-2024 End: 11-26-2024 Tobacco use panel [facility] Start: 10-01-2024 [facility] Start: 1990 Sex assigned at Not on file [facility] History of tobacco use Tobacco U se Types Packs/Day Years Used Date Smoking Tobacco: Former Vaping/E-cigarettes Smokeless Tobacco: Never [facility] Start: 02-18-2023 Tobacco use and exposure Smokeless tobacco non-user [facility] Start: 02-07-2025 End: 03-08-2025 Alcoholic beverage intake Ex-drinker (finding) [facility] Childcare Unknown [facility] Start: 10-05-2018 Alcohol Comment rare [facility] Start: 1990 Sex assigned at Female [facility] Start: 06-15-2015 Sex Female (finding) [facility] Start: 02-24-2023 Gender identity Identifies as female gender (finding) [facility] Start: 02-24-2023 Sexual orientation Heterosexual (finding) [facility] Medical Equipment Procedure Code Equipment Code Equipment Origin al Text Equipment Identifier Dates [id number], [id number], [id number] Start: 01-24-2025 End: 02-23-2025 Clinical Notes 11-26-2024 to 06-07-2025 Grace Arita LPN - 06/07/2025 9:40 AM EDTFRACISCO Trejo - 06/02/2025 9:30 AM JOANNE Kelly - 05/31/2025 10:50 AM JOANNE Kelly - 05/24/2025 8:40 AM EDT Note Date & Type Note Facility 06-07-2025 History of Presen t illness Narrative Reason for Appointment: Patient ID: Charlene Purvis is a 34 y.o. female who presents for Blood Pressure Check Patient presents today for Post Follow Up appointment. 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 ([facility]) 04/18/2023 Exposure to cat feces 04/18/2023 Gestational diabetes ([facility]) 04/18/2023 Nausea 04/18/2023 History of delivery 02/24/2023 Resolved Ambulatory Problems Diagnosis Date Noted No Resolved Ambulatory Problems Past Medical History: Diagnosis Date Chronic hypertension affecting ([facility]) Exposure to cat feces, sequela Former smoker Herpes exposure History of miscarriage Morbid obesity with BMI of 40.0-44.9, adult [place] HISTORY PAST MEDICAL HISTORY SOCIAL HISTORY Past Medical History: Diagnosis Date Chronic hypertension affecting ([facility]) Exposure to cat feces, sequela Former smoker Gestational diabetes ([facility]) Herpes exposure History of miscarriage Morbid obesity with BMI of 40.0-44.9, adult ([facility] Social History Tobacco Use [...] nursing note reviewed. Exam conducted with a sql server dba developer present. Vitals: Estimated body mass index is 49.34 kg/m as calculated from the following: Height as of 09/09/23: 5' 7 . Weight as of this encounter: 315 lb. BP: 158/88 Patient's last menstrual period was 09/17/2024. ASSESSMENT & PLAN ICD-10-CM 1. Throbbing headache R51.9 2. Encounter for visit ([facility]) Z39.2 Pt presents with a throbbing headache- pt being sent to [facility] for observation pt delivered 06/03/25. Pt to continue labetalol. Pt to return in one week for BP check and headache check. Documented by Grace Arita LPN on behalf of: Nolan Cortes DO documented in this encounter [facility] 06-02-2025 History of Presen t illness Narrative REASON FOR OFFICE VISIT: Video Visit via Real-time Synchronous Audiovisual Provider Location: [facility] [address] [address] Patient Location: Patient's home Video Visit Consent [...] that there are some limitations compared to [id number] evaluations. The patient consented to the presence [...] bleeding, contractions, leaking fluid or chest pain. +FM. She is being followed at [facility] due to GDMA2. States she is following [...] 10/27/2018 Performed by Vince Ardon DO at [facility] SKIN SURGERY mole removed from neck ALLERGIES: [...] TSH 0.495 01/31/2023 No results found for: [id number] Lab Results Component Value Date CREATININE 0.49 [...] elevated in diabetic pregnancies. Also, if the is large, which can still happen despite [...] and Type 2 diabetes were reviewed. Continue [facility] Recommended carbohydrate allocation ranges: 30-45 g for breakfast, 45-60 g for lunch and dinner, and 15-g snacks roughly 2-3 hours after each meal. A1c less than 6% has the lowest risk for LGA infant Pre-E s/s reviewed: BP >160/110, epigastric or [...] values to us weekly by e-mail to: [email or web address] or by fax to: [phone] TIME OF CONSULTATION: 15 minutes with the patient, >50% in discussion and counseling, coordination of care which was [id number], review of records and communication back to referring provider. FRACISCO Trjeo 06/02/25 0942 documented in this encounter [facility] 05-31-2025 History of Presen t illness Narrative [...] Noted Benign essential hypertension in obstetric context ([facility]) 04/18/2023 Exposure to cat feces 04/18/2023 Gestational diabetes ([facility]) 04/18/2023 Nausea 04/18/2023 History of delivery 02/24/2023 Resolved Ambulatory Problems Diagnosis Date Noted No Resolved Ambulatory Problems Past Medical History: Diagnosis Date Chronic hypertension affecting ([facility]) Exposure to cat feces, sequela Former smoker Herpes exposure History of miscarriage Morbid obesity with BMI of 40.0-44.9, adult ([facility] [place] HISTORY PAST MEDICAL HISTORY SOCIAL HISTORY Past Medical History: Diagnosis Date Chronic hypertension affecting ([facility]) Exposure to cat feces, sequela Former smoker Gestational diabetes ([facility]) Herpes exposure History of miscarriage Morbid obesity with BMI of 40.0-44.9, adult [place] [place] Social History Tobacco Use [...] ASSESSMENT & PLAN ICD-10-CM 1. Third trimester ([facility]) Z34.93 POCT urinalysis dipstick manually resulted CULTURE, GROUP B STREP WITH SUSCEPTIBLITY CULTURE, GROUP B STREP WITH SUSCEPTIBLITY 2. 36 weeks gestation of ([facility]) Z3A.36 Return OB: Patient presents today for [...] of: JOANNE Hernandez documented in this encounter [facility] 05-24-2025 History of Presen t illness Narrative [...] Noted Benign essential hypertension in obstetric context ([facility]) 04/18/2023 Exposure to cat feces 04/18/2023 Gestational diabetes ([facility]) 04/18/2023 Nausea 04/18/2023 History of delivery 02/24/2023 Resolved Ambulatory Problems Diagnosis Date Noted No Resolved Ambulatory Problems Past Medical History: Diagnosis Date Chronic hypertension affecting ([facility]) Exposure to cat feces, sequela Former smoker Herpes exposure History of miscarriage Morbid obesity with BMI of 40.0-44.9, adult ([facility] [place] HISTORY PAST MEDICAL HISTORY SOCIAL HISTORY Past Medical History: Diagnosis Date Chronic hypertension affecting ([facility]) Exposure to cat feces, sequela Former smoker Gestational diabetes ([facility]) Herpes exposure History of miscarriage Morbid obesity with BMI of 40.0-44.9, adult ([facility] [place] Social History Tobacco Use [...] ASSESSMENT & PLAN ICD-10-CM 1. Third trimester ([facility]) Z34.93 POCT urinalysis dipstick manually resulted 2. 35 weeks gestation of ([facility]) Z3A.35 3. induced hypertension, antepartum ([facility]) O13.9 CANCELED: Creatinine CANCELED: Protein, urine, [...] of: JOANNE Hernandez documented in this encounter [facility] 05-24-2025 Miscellaneous Notes WEB MOBILE DESIGNER CALLED PATIENT. NO ANSWER. LEFT VM ASKING PATIENT TO EMAIL US HER BLOOD GLUCOSE LOGS SO THAT THEY CAN BE REVIEWED BY OUR DIABETES TEAM. documented in this encounter [facility] 05-24-2025 Telephone encounter Note WEB MOBILE DESIGNER CALLED PATIENT. NO ANSWER. LEFT VM ASKING PATIENT TO EMAIL US HER BLOOD GLUCOSE LOGS SO THAT THEY CAN BE REVIEWED BY OUR DIABETES TEAM. [facility] 05-17-2025 History of Presen t illness [...] Noted Benign essential hypertension in obstetric context ([facility]) 04/18/2023 Exposure to cat feces 04/18/2023 Gestational diabetes ([facility]) 04/18/2023 Nausea 04/18/2023 History of delivery 02/24/2023 Resolved Ambulatory Problems Diagnosis Date Noted No Resolved Ambulatory Problems Past Medical History: Diagnosis Date Chronic hypertension affecting ([facility]) Exposure to cat feces, sequela Former smoker Herpes exposure History of miscarriage Morbid obesity with BMI of 40.0-44.9, adult ([facility] [place] HISTORY PAST MEDICAL HISTORY SOCIAL HISTORY Past Medical History: Diagnosis Date Chronic hypertension affecting ([facility]) Exposure to cat feces, sequela Former smoker Gestational diabetes ([facility]) Herpes exposure History of miscarriage Morbid obesity with BMI of 40.0-44.9, adult ([facility] [place] Social History Tobacco Use [...] nursing note reviewed. Exam conducted with a sql server dba developer present. Vitals: Estimated body mass index is 47.58 kg/m as calculated from the following: Height as of 09/09/23: 5' 7 . Weight as of this encounter: 303 lb 12.8 oz. BP: 126/78 Patient's last menstrual period was 09/17/2024. ASSESSMENT & PLAN ICD-10-CM 1. Third trimester ([facility]) Z34.93 2. 34 weeks gestation of ([facility]) Z3A.34 3. Gestational diabetes mellitus (GDM), antepartum, gestational diabetes method of control unspecified ([facility]) O24.419 Return OB: Patient presents today [...] Nolan Cortes DO documented in this encounter [facility] 05-02-2025 History of Presen t illness Narrative [...] Noted Benign essential hypertension in obstetric context ([facility]) 04/18/2023 Exposure to cat feces 04/18/2023 Gestational diabetes ([facility]) 04/18/2023 Nausea 04/18/2023 History of delivery 02/24/2023 Resolved Ambulatory Problems Diagnosis Date Noted No Resolved Ambulatory Problems Past Medical History: Diagnosis Date Chronic hypertension affecting ([facility]) Exposure to cat feces, sequela Former smoker Herpes exposure History of miscarriage Morbid obesity with BMI of 40.0-44.9, adult ([facility] [place] HISTORY PAST MEDICAL HISTORY SOCIAL HISTORY Past Medical History: Diagnosis Date Chronic hypertension affecting ([facility]) Exposure to cat feces, sequela Former smoker Gestational diabetes ([facility]) Herpes exposure History of miscarriage Morbid obesity with BMI of 40.0-44.9, adult ([facility] [place] Social History Tobacco Use [...] nursing note reviewed. Exam conducted with a sql server dba developer present. Vitals: Estimated body mass index is 47.16 kg/m as calculated from the following: Height as of 09/09/23: 5' 7 . Weight as of this encounter: 301 lb 1.9 oz. BP: 130/82 Patient's last menstrual period was 09/17/2024. ASSESSMENT & PLAN ICD-10-CM 1. 32 weeks gestation of ([facility]) Z3A.32 POCT urinalysis dipstick manually resulted 2. Third trimester ([facility]) Z34.93 POCT urinalysis dipstick manually resulted [...] She is sending her glucose logs to [facility] for review. She has continued with NST / BPP. Orders Placed This Encounter Procedures POCT urinalysis dipstick manually resulted Follow Up: Patient is to return to office in 2 week for routine OB appointment. Documented by Armida Albrecht NP on behalf of: Armida Albrecht NP documented in this encounter [facility] 04-29-2025 Miscellaneous Notes WEB MOBILE DESIGNER CALLED THE PATIENT. NO ANSWER. LEFT ASKING THE PATIENT TO GIVE US A CALL TO SCHEDULE HER 4 WEEK FOLLOW UP APPOINTMENT AT THE REQUEST OF HER PROVIDER. LEFT OUR NUMBER AND INSTRUCTED HER TO SELECT OPTION 3 TO REACH ONE OF OUR SCHEDULERS. documented in this encounter [facility] 04-29-2025 Telephone encounter Note WEB MOBILE DESIGNER CALLED THE PATIENT. NO ANSWER. LEFT VM ASKING THE PATIENT TO GIVE US A CALL TO SCHEDULE HER 4 WEEK FOLLOW UP APPOINTMENT AT THE REQUEST OF HER PROVIDER. LEFT OUR NUMBER AND INSTRUCTED HER TO SELECT OPTION 3 TO REACH ONE OF OUR SCHEDULERS. 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 Ultra Thin, Disp: , [...] TSH 0.495 01/31/2023 No components found for: [facility] Lab Results Component Value Date CREATININE 0.49 [...] on 11/27/24 ---> 5.8 on 03/08/25 at [facility] - Baseline preeclampsia labs: CMP, Plts, urine [...] Delivery recommendations : - Recommend delivery at [id number] - reviewed with patient - Discuss delivery [...] values to us weekly by e-mail to: [email or web address] or by fax to: [phone] Kenya Acosta PA-C Maternal- Medicine Office phone: [phone] Kenya Acosta PA-C 04/19/25 1050 documented in this encounter [facility] 04-19-2025 Miscellaneous Notes WEB MOBILE DESIGNER CALLED PATIENT. NO ANSWER. LEFT VM FOR PATIENT TO EMAIL US HER BLOOD GLUCOSE LOG FOR HER UPCOMING APPOINTMENT WITH KENYA AT 10:30 AM documented in this encounter [facility] 04-19-2025 Telephone encounter Note WEB MOBILE DESIGNER CALLED PATIENT. NO ANSWER. LEFT VM FOR PATIENT TO EMAIL US HER BLOOD GLUCOSE LOG FOR HER UPCOMING APPOINTMENT WITH KENYA AT 10:30 AM [facility] 04-18-2025 History of Presen t illness [...] Morbid obesity with BMI of 40.0-44.9, adult ([facility]) HISTORY PAST MEDICAL HISTORY SOCIAL HISTORY Past Medical History: Diagnosis Date Chronic hypertension affecting Exposure to cat feces, sequela Former smoker Gestational diabetes Herpes exposure History of miscarriage Morbid obesity with BMI of 40.0-44.9, adult ([facility]) Social History Tobacco Use Smoking status: [...] nursing note reviewed. Exam conducted with a sql server dba developer present. Vitals: Estimated body mass index [...] Nolan Cortes DO documented in this encounter [facility] 04-05-2025 History of Presen t illness Narrative [...] Morbid obesity with BMI of 40.0-44.9, adult ([facility]) HISTORY PAST MEDICAL HISTORY SOCIAL HISTORY Past Medical History: Diagnosis Date Chronic hypertension affecting Exposure to cat feces, sequela Former smoker Gestational diabetes Herpes exposure History of miscarriage Morbid obesity with BMI of 40.0-44.9, adult ([facility]) Social History Tobacco Use Smoking status: [...] nursing note reviewed. Exam conducted with a sql server dba developer present. Vitals: Estimated body mass index [...] Nolan Cortes DO documented in this encounter [facility] 03-23-2025 History of Presen t illness Narrative REASON FOR OFFICE VISIT: Video Visit via Real-time Synchronous Audiovisual Provider Location: [facility] [address] [address] Patient Location: Patient's home Video Visit Consent [...] that there are some limitations compared to [id number] evaluations. The patient consented to the presence [...] chest pain. She is being followed at [facility] due to GDMA2. States she is [...] 10/27/2018 Performed by Vince Ardon DO at [facility] SKIN SURGERY mole removed from neck ALLERGIES: [...] TSH 0.495 01/31/2023 No results found for: [id number] Lab Results Component Value Date CREATININE 0.49 [...] baby. Little research has been done on halfway effects of Metformin exposure to the fetus. [...] values to us weekly by e-mail to: [email or web address] or by fax to: [phone] TIME OF CONSULTATION: 25 minutes with the patient, >50% in discussion and counseling, coordination of care which was [id number], review of records and communication back to referring provider. FRACISCO Trejo 03/23/25 1058 [facility] Miscellaneous Notes WEB MOBILE DESIGNER CALLED PATIENT. NO ANSWER. LEFT VM FOR PATIENT TO EMAIL US HER BLOOD GLUCOSE LOG SO THAT WE WILL HAVE IT FOR HER APPOINTMENT TODAY. documented in this encounter [facility] 03-23-2025 Telephone encounter Note WEB MOBILE DESIGNER CALLED PATIENT. NO ANSWER. LEFT VM FOR PATIENT TO EMAIL US HER BLOOD GLUCOSE LOG SO THAT WE WILL HAVE IT FOR HER APPOINTMENT TODAY. [facility] 03-16-2025 Miscellaneous Notes Summary: MFM Blood Glucose Log Called. No answer. Message left requesting more FBS numbers from this week as noted recently started Metformin this past Friday03/11/25. documented in this encounter [facility] 03-16-2025 Telephone encounter Note Summary: MFM Blood Glucose Log Called. No answer. Message left requesting more FBS numbers from this week as noted recently started Metformin this past Friday03/11/25. [facility] Work Phone: 03-14-2025 History of Presen t [...] Morbid obesity with BMI of 40.0-44.9, adult ([facility]) HISTORY PAST MEDICAL HISTORY SOCIAL HISTORY Past Medical History: Diagnosis Date Chronic hypertension affecting Exposure to cat feces, sequela Former smoker Gestational diabetes Herpes exposure History of miscarriage Morbid obesity with BMI of 40.0-44.9, adult ([facility]) Social History Tobacco Use Smoking status: [...] nursing note reviewed. Exam conducted with a sql server dba developer present. 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 termite treater data on children whose mothers took oral [...] cell free dna - Anatomy survey with [facility] - please contact us if you would [...] Delivery recommendations : - Recommend delivery at [id number] - reviewed with patient - Discuss delivery [...] values to us weekly by e-mail to: [email or web address] or by fax to: [phone] Kenya Acosta PA-C Maternal- Medicine Office phone: [phone] Kenya Acosta PA-C 03/08/25 1645 Headache/epigastric pain/blurry vision/swelling? no Cramping/contractions? no Abnormal vaginal discharge? no Spotting/vaginal bleeding? Loss or gush of fluid like your water may have broken? no Do you have cats at home? yes Do you change the litter box (reason: risk of toxoplasmosis)? no Genetic testing done this here or other office? yes/low risk/ male Have you been seen here at [facility] in a previous ? Yes/with daughter Recent ER visits or hospitalizations? no Bring blood sugar log or meter with you today? (Please bring them with you for every visit at [facility]) yes Flu vaccine (Sep-January)? Any concerns that you would like me to mention to the provider today? documented in this encounter [facility] 03-08-2025 Miscellaneous Notes Disclaimer: This note is [...] legal medical record. documented in this encounter [facility] 03-08-2025 Progress note Formatting of t [...] a part of the legal medical record. [facility] 03-08-2025 Miscellaneous Notes Vp Sales called patient. No answer. Left voicemail for the patient to email us her blood glucose logs for her upcoming appointment today with Kenya Acosta. Also stated if she had any questions she could give us a call at [phone]. documented in this encounter [facility] 03-08-2025 Telephone encounter Note Vp Sales called patient. No answer. Left voicemail for the patient to email us her blood glucose logs for her upcoming appointment today with Kenya Acosta. Also stated if she had any questions she could give us a call at [phone]. [facility] 03-04-2025 Miscellaneous Notes Patient returned call, discussed all but 1 fasting is elevated which meets criteria for a medication start appointment. Patient states she was on insulin with last and expected this to happen again. Transferred to scheduling. documented in this encounter [facility] 03-04-2025 Telephone encounter Note Patient returned call, discussed all but 1 fasting is elevated which meets criteria for a medication start appointment. Patient states she was on insulin with last and expected this to happen again. Transferred to scheduling. [facility] 03-02-2025 Miscellaneous Notes Called and left voicemail regarding blood sugar log with 6 fasting elevations. Notified patient this does meet criteria to come in and speak to a provider regarding medication start. Number for scheduling provided. Encouraged patient to call diabetes line with any questions. documented in this encounter [facility] 03-02-2025 Telephone encounter Note Called and left voicemail regarding blood sugar log with 6 fasting elevations. Notified patient this does meet criteria to come in and speak to a provider regarding medication start. Number for scheduling provided. Encouraged patient to call diabetes line with any questions. [facility] 02-24-2025 Miscellaneous Notes Called regarding blood sugar and food logs from 02/21/2025-02/20/2025. All her fasting blood sugars are elevated. Asked her to return my call at [phone]. Charlene called back. Currently doing peanut butter [...] blood sugars weekly. documented in this encounter [facility] 02-24-2025 Telephone encounter Note Called regarding blood sugar and food logs from 02/21/2025-02/20/2025. All her fasting blood sugars are elevated. Asked her to return my call at [phone]. Charlene called back. Currently doing peanut butter [...] Continue to send in blood sugars weekly. [facility] Work Phone: 02-21-2025 History of Presen t [...] Morbid obesity with BMI of 40.0-44.9, adult ([facility]) HISTORY PAST MEDICAL HISTORY SOCIAL HISTORY Past Medical History: Diagnosis Date Chronic hypertension affecting Exposure to cat feces, sequela Former smoker Gestational diabetes Herpes exposure History of miscarriage Morbid obesity with BMI of 40.0-44.9, adult ([facility]) Social History Tobacco Use Smoking status: [...] nursing note reviewed. Exam conducted with a sql server dba developer present. Vitals: Estimated body mass index [...] Nolan Cortes DO documented in this encounter [facility] 02-16-2025 Group counseling note Patient: Charlene Purvis [...] Face to face time was 75 minutes. [facility] Work Phone: 02-16-2025 Miscellaneous Notes Patient: Charlene [...] was 75 minutes. documented in this encounter [facility] 02-07-2025 History of Presen t illness Narrative PAPER CHART ABSTRACTED FOR DIABETIC ED AT [facility]. documented in this encounter [facility] 12-28-2024 History of Presen t illness [...] Morbid obesity with BMI of 40.0-44.9, adult ([facility]) HISTORY PAST MEDICAL HISTORY SOCIAL HISTORY Past Medical History: Diagnosis Date Chronic hypertension affecting Exposure to cat feces, sequela Former smoker Gestational diabetes Herpes exposure History of miscarriage Morbid obesity with BMI of 40.0-44.9, adult ([facility]) Social History Tobacco Use Smoking status: [...] nursing note reviewed. Exam conducted with a sql server dba developer present. Vitals: Estimated body mass index [...] or undercooked meat, and stay away from [facility]. Patient has been consulted regarding any further do's and don'ts of . Patient voiced understanding and all questions and concerns were answered. Orders Placed This Encounter Procedures POCT urinalysis dipstick manually resulted Follow Up: Patient is to return in 4 weeks for routine OB appointment. Documented by rGace Arita LPN on behalf of: Nolan Cortes DO documented in this encounter [facility] 11-26-2024 History of Presen t illness Narrative [...] 1 1 # Outcome Date GA Lbr Epdro/2nd Weight Sex Type Anes PTL Lv 3 [...] Morbid obesity with BMI of 40.0-44.9, adult ([facility]) Family History Problem Relation Name Age [...] or undercooked meat, and stay away from [facility]. Patient has also been advised to not [...] Danay Ortega LPN documented in this encounter [facility] Healthcare Evaluation note Diagnosis Missed menses , unspecified gestational age Encounter for supervision of normal first in first trimester documented in this encounter [facility] HealthcareEvaluation note* Diagnosis Second trimester state, incidental 14 weeks gestation of Diabetes mellitus screening Screening for diabetes mellitus documented in this encounter [facility] HealthcareEvaluation note* Diagnosis Diet controlled gestational diabetes mellitus (GDM) in second trimester- Primary Encounter for diabetes education documented in this encounter [facility]* Diagnosis Second trimester state, incidental 22 weeks gestation of documented in this encounter [facility]* Diagnosis Gestational diabetes mellitus (GDM) in second trimester controlled on oral hypoglycemic drug- Primary documented in this encounter [facility]* Diagnosis Second trimester state, incidental 25 weeks gestation of documented in this encounter [facility]* Diagnosis Gestational diabetes mellitus (GDM) in second trimester controlled on oral hypoglycemic drug documented in this encounter [facility]* Diagnosis Third trimester [...] hypoglycemic drug- Primary documented in this encounter [facility]* Diagnosis 32 weeks gestation of ([facility]) Third trimester ([facility]) state, incidental documented in this encounter [facility]* Diagnosis Third trimester ([facility]) state, incidental 34 weeks gestation of ([facility]) Gestational diabetes mellitus (GDM), antepartum, gestational diabetes method of control unspecified ([facility]) documented [facility] encounter [facility]* Diagnosis Third trimester ([facility]) state, incidental 35 weeks gestation of ([facility]) induced hypertension, antepartum ([facility]) Transient hypertension of , antepartum documented in this encounter [facility]* Diagnosis Third trimester ([facility]) state, incidental 36 weeks gestation of ([facility]) documented [facility]* Diagnosis Gestational diabetes mellitus (GDM) in third trimester controlled on oral hypoglycemic drug- Primary documented in this encounter [facility] note* Diagnosis Throbbing headache Headache Encounter for visit ([facility]) documented in this encounter [facility]InstructionsNot on filedocumented in this encounter[facility] SystemInstructionsNot on filedocumented in this encounter[facility] SystemInstructionsNot on filedocumented in this encounterPro[facility] SystemInstructionsNot on filedocumented in this encounterUniversity [facility]als [facility] System Summary Purpose Family History No Family History Records FoundNo Family History Records FoundNo Family History Records Found Advance Directives No Advanced Directives Records FoundNo Advanced Directives Records FoundNo Advanced Directives Records Found Additional Source Comments INFORMATION SOURCE (unrecogn ized section and content) DATE CREATED AUTHOR 04/18/2023 Candy Jeffries [facility] DATE CREATED AUTHOR AUTHOR'S ORGANIZ ATION 06/01/2025 [facility] DATE CREATED AUTHOR AUTHOR'S ORGANIZ ATION 06/03/2025 [facility] Reason for Visit (unrecogniz ed section and content) Reason Comments Amenorrhea Reason Comments Routine Visit Reason Comments Gestational Diabetes Specialty Diagnoses / Procedures Referred By Janay t Referred To Contact Maternal and Medicine Diagnoses Encounter for diabetes education Nolan Cortes, [address] [place], [place] [address]su[place] [address] Phone: tel: fax: Maternal- Medicine at [facility] [address] [place] [address] Phone: tel: fax: Referral ID Status Reason Start Date Expiration Date Visits Requested Visits Authorized [id number] Pending Review Specialty Services Required 02/03/2025 02/03/2026 1 1 Reason Comments Med Start-GDM Reason Comments Blood Pressure Check Care Teams (unrecognized sec tion and content) [place] Relationship Specialty Start Date End Date Melony Azul MD PCP - General Pediatrics 06/23/18 [place] Relationship Specialty Start Date End Date Melony Azul MD PCP - General Pediatrics 06/23/18 [place] Relationship Specialty Start Date End Date Melony Azul MD PCP - General Pediatrics 06/23/18 [place] Relationship Specialty Start Date End Date Melony Azul MD PCP - General Pediatrics 06/23/18 [place] Relationship Specialty Start Date End Date Melony Azul MD PCP - General Pediatrics 06/23/18 [place] Relationship Specialty Start Date End Date Melony Azul MD PCP - General Pediatrics 06/23/18 [place] Relationship Specialty Start Date End Date Melony Azul MD PCP - General Pediatrics 06/23/18 FOR [...] BE BASED ON THE PRIMARY CLINICAL RECORDS. [facility] [employer] [facility]. provides no warranty or guarantee of the accuracy or completeness of information in this document.
--- NOTE | 2025-06-07 11:33 | PC.NURSE ---
1110: Patient arrives from Dr Cortes's office for evaluation of headache and elevated BP office visit this morning. Patient tearful and states has headache since yesterday. Has history of migraines and this feels like it. Color pink, skin warm and dry, lungs clear throughout, 3+ bilateral lower leg edema, skin tight to palpation. Status 5 days post magnesium sulfate infusion. Dtr's 1-2+ upper and lower bilaterally. 1130- Lab at bedside for PIH labs.
[2025-06-07 11:41] LABS: Immature Granulocytes Abs Auto 0.05 10^3/uL (0.00-0.03); Immature Granulocytes Pct Auto 0.7 % (0.0-0.5); Lymphocytes Absolute Auto 1.3 10^3/uL (1.2-3.8); Mean Corpuscular HGB Conc 33.0 g/dL (29.9-35.2); Mean Corpuscular Hemoglobin 32.1 pg (26.7-34.0); Mean Corpuscular Volume 97.2 fL (81.0-99.0); Platelet Count 135 10^3/uL (150-450); Red Blood Count 2.12 10^6/uL (4.20-5.40); White Blood Count 7.3 10^3/uL (4.0-11.0)
[2025-06-07 11:43] LABS: Hematocrit 20.6 % (36.0-48.0); Hemoglobin 6.8 g/dL (12.0-16.0)
[2025-06-07 11:55] LABS: Alanine Aminotransferase 30 U/L (14-59); Aspartate Amino Transferase 23 U/L (15-37); Blood Urea Nitrogen 11.0 mg/dL (7.0-18.0); Estimated GFR (African America >60 (>=60 mL/min/1.73m^2); Estimated GFR (Non-African Ame >60 (>=60 mL/min/1.73m^2); Uric Acid 4.1 mg/dL (2.6-6.0)
--- NOTE | 2025-06-07 12:04 | PC.NURSE ---
1150: Dr Cortes calls from office and informed of CBC results- orders received and confirmed. 1153: Blood consent obtained and plan of care discussed with patient.
[2025-06-07] MEDS: 0.9 % SODIUM CHLORIDE 250 ML 10 ML IV (17:42)
--- NOTE | 2025-06-07 18:33 | PC.NURSE ---
1756: Unit #1 of [facility]BC infusion started. Patient sitting up in bed and denies needs. Offered supper tray. States headache returned but not bad .
[2025-06-07] MEDS: IBUPROFEN 400 MG TABLET 800 MG PO (20:33)
[2025-06-07] MEDS: ACETAMINOPHEN 500 MG TABLET 1000 MG PO (21:14)
--- NOTE | 2025-06-07 23:28 | PM.OBHP ---
OB - H&P: HPI History of Present Illness Chief complaint: INCREASED BLOOD PRESSURE : 3 Para: 2 Gestational age based on last menstrual period: pp day 5 Narrative: 34 yo delivered at 36 6/7wks dt severe preeclampsia, pt was placed on magnesium during her stay, pt presented with elevated bp in the office and complaints of headaches, pt was found to be anemic History of Present care: good care complications: preeclampsia and gestational diabetes Review of Systems ROS Status of ROS: 10 or more systems reviewed and unremarkable except as noted in history and below PFSH PFS Medical History (Updated 06/07/25 @ 23:33 by Nolan Cortes DO) HTN (hypertension) ?I10 - Essential (primary) hypertension (ICD-10) Gestational diabetes mellitus ?O24.419 - Gestational diabetes mellitus in , unspecified control (ICD-10) Surgical History History of cholecystectomy ?Z90.49 - Acquired absence of other specified parts of digestive tract (ICD-10) Family History Brother Family history not known due to adoption Father Family history of cancer Mother Family history of diabetes mellitus Grandfather Family history of stroke Social History Within the past year, how often did you have a drink containing alcohol: never Within the past year, how often did you have six or more drinks on one occasion: never Score interpretation: A score less than 3 is consistent with normal alcohol consumption. Smoking status: Former smoker Do you use any of these nicotine containing products: vaping products Non-prescribed substance use: denies use Highest level of school completed/degree received: high school graduate Are you now , , , , never or living with a partner: In a typical week, how many times do you talk on the telephone with family, friends, or neighbors: 3 or more times per week How often do you get together with friends or relatives: 3 or more times per week How often do you attend restorationism or jain services: 1-3 times per year Do you belong to any clubs or organizations such as restorationism groups unions, [employer] or athletic groups, or school groups: no Total score: 2 Score interpretation: A score of greater than or equal to 2 indicates the lowest level of social isolation. Little interest or pleasure in doing things: not at all Feeling down, depressed, or hopeless: not at all Feel stressed/tense/nervous/anxious/difficulty sleeping: not at all Do you think of yourself as: straight/heterosexual Gender Identity: female Meds Home Medications and Allergies Home Medications ?Medication ?Instructions ?Recorded ?Confirmed ?Type vits no.130-ferrous fum 1 tab PO DAILY 08/25/23 06/02/25 History 27 mg iron-folic acid 800 mcg tablet ( Vitamin) ibuprofen 800 mg tablet 800 mg PO Q8H PRN Moderate Pain 06/05/25 Rx #60 tabs labetalol 200 mg tablet 200 mg PO BID 30 days #60 tabs 06/07/25 Rx Allergies Allergy/AdvReac Type Severity Reaction Status Date / Time No Known Drug Allergies Allergy Verified 06/02/25 16:57 Exam Constitutional Vital Signs, click to edit/add: Last Vital Signs Temp 98.4 F 06/07/25 22:49 Pulse 108 H 06/07/25 22:49 Resp 16 06/07/25 22:49 BP 139/65 06/07/25 22:49 Pulse Ox 95 06/07/25 22:49 O2 Del Method Room Air 06/07/25 22:44 Results Labs Labs: Short CBC 06/07/25 Range/Units 11:33 WBC 7.3 (4.0-11.0) 10^3/uL Hgb 6.8 L* (12.0-16.0) g/dL Hct 20.6 L* (36.0-48.0) % Plt Count 135 L (150-450) 10^3/uL BMP 06/07/25 11:33 BUN 11.0 Creatinine 0.51 L Liver Function 06/07/25 Range/Units 11:33 AST 23 (15-37) U/L ALT 30 (14-59) U/L OB - A/P Assessment and Plan (1) care following vaginal delivery: (2) Acute blood loss anemia: Assessment and Plan: pt transfused 2units, labs reviewed, pih panel reviewed (3) Migraine: Assessment and Plan: pt states relieved with motrin, migraine has resolved, Plan will repeat pih panel in am
[2025-06-08] VITALS (11 sets, daily range): BP systolic 142–189; BP diastolic 67–86; PULSE 77–95; TEMP 36.8; O2SAT 95
[2025-06-08] MEDS: LABETALOL HCL 100 MG TABLET 200 MG PO (00:02)
[2025-06-08 06:54] LABS: Hematocrit 26.6 % (36.0-48.0); Hemoglobin 8.8 g/dL (12.0-16.0); Immature Granulocytes Abs Auto 0.03 10^3/uL (0.00-0.03); Immature Granulocytes Pct Auto 0.4 % (0.0-0.5); Lymphocytes Absolute Auto 1.0 10^3/uL (1.2-3.8); Mean Corpuscular HGB Conc 33.1 g/dL (29.9-35.2); Mean Corpuscular Hemoglobin 31.3 pg (26.7-34.0); Mean Corpuscular Volume 94.7 fL (81.0-99.0); Platelet Count 147 10^3/uL (150-450); Red Blood Count 2.81 10^6/uL (4.20-5.40); White Blood Count 8.5 10^3/uL (4.0-11.0)
--- NOTE | 2025-06-08 08:06 | P.OBPN_ITS ---
OB - PN: Subj Subjective Patient comments: no complaints and pain well controlled [place] status: doing well Exam Constitutional Vital Signs, click to edit/add: Last Vital Signs Temp 98.0 F 06/07/25 23:44 Pulse 93 H 06/08/25 06:37 Resp 17 06/07/25 23:44 BP 144/76 H 06/08/25 06:37 Pulse Ox 95 06/07/25 22:49 O2 Del Method Room Air 06/07/25 22:44 Documenting provider has reviewed patient's vital signs: yes Common normals: no apparent distress Respiratory Common normals: normal respiratory effort and clear to auscultation bilaterally Cardio Common normals: regular rate and regular rhythm GI Common normals: Normal to inspection, nondistended, normoactive bowel sounds present Extremity Common normals: no clubbing, cyanosis or edema and no calf tenderness Results Labs Labs: Short CBC 06/07/25 06/08/25 Range/Units 11:33 06:43 WBC 7.3 8.5 (4.0-11.0) 10^3/uL Hgb 6.8 L* 8.8 L (12.0-16.0) g/dL Hct 20.6 L* 26.6 L (36.0-48.0) % Plt Count 135 L 147 L (150-450) 10^3/uL BMP 06/07/25 11:33 BUN 11.0 Creatinine 0.51 L Liver Function 06/07/25 Range/Units 11:33 AST 23 (15-37) U/L ALT 30 (14-59) U/L OB - PN: A/P Assessment and Plan (1) care following vaginal delivery: (2) Acute blood loss anemia: (3) Migraine: Plan doing well, labs reviewed, dc home, precautions given Time Spent with Patient Time: Total time spent is greater than 50% in coordination of care (as documented) at patient's floor/unit and/or counseling patient: Total time spent with greater than 50% in coordination of care (as documented) at patient's floor/unit and/or counseling patient: less than 15 minutes
--- NOTE | 2025-06-08 08:35 | CT_ITS ---
[address] [address] Patient Name: KIRA CASTELLON MRN: [id number] date: 1990 Sex: F Assigned Patient Location: [facility] Current Patient Location: [facility] Accession/Order Number: [id number] Exam Date: 06/08/2025 09:37 Report Date: 06/08/2025 09:40 At the request of: THOMAS FORMAN DO Procedure: CT angio chest CT ANGIOGRAM OF THE CHEST, PULMONARY EMBOLISM PROTOCOL: CLINICAL INFORMATION: Wheezing. 6 stable post . Shortness of breath with exertion for one day. COMPARISON: None TECHNIQUE: Following intravenous injection of contrast CT scans of the chest were obtained using pulmonary embolism protocol. Coronal and sagittal reconstructed images, as well as volume rendered CT pulmonary angiographic images were also submitted.The CT exam was performed using one or more of the following dose reduction techniques: Automated exposure control, adjustment of the MA and/or Kv according to patient size, or use of the iterative reconstruction technique. FINDINGS: Pulmonary Vasculature: Contrast bolus is suboptimal for evaluation of segmental and subsegmental pulmonary embolism. No central pulmonary embolism is noted. Pulmonary trunk appears nondilated. Mediastinum : Thoracic aorta is normal in caliber. No pericardial effusion. No lymphadenopathy. The esophagus is grossly unremarkable. Lungs: Small bilateral pleural effusions with bibasilar atelectasis, groundglass and smooth septal thickening. No pneumothorax. Upper abdomen: No acute findings Soft tissue/bones: Soft tissues surrounding the chest wall demonstrate no acute findings. Osseous structures demonstrate degenerative change. CT/CT angio chest IMPRESSION: SUBOPTIMAL BOLUS TIMING. NO CENTRAL PULMONARY EMBOLISM. SMALL BILATERAL PLEURAL EFFUSIONS WITH BIBASILAR ATELECTASIS, GROUNDGLASS AND SMOOTH SEPTAL THICKENING. FLUID OVERLOAD IS SUSPECTED. DEVELOPING INFECTIOUS PROCESS CANNOT BE EXCLUDED. Impression dictated by: Jacinto Rivas Jr., D.O. 06/08/2025 9:40 AM Dictation Location: [employer] Electronically authenticated by: [id number] Y Date: 06/08/2025 09:40
[2025-06-08] MEDS: LABETALOL HCL 100 MG TABLET 300 MG PO ×3 (10:35→22:50)
[2025-06-08] MEDS: FUROSEMIDE 20 MG/2 ML VIAL IVP ×2 (10:45→18:12)
[2025-06-08] MEDS: AZITHROMYCIN 500 MG in 0.9 % SODIUM CHLORIDE 250 ML 250 MG IV (10:46)
--- NOTE | 2025-06-08 11:00 | CA_ITS ---
Patient Name: KIRA CASTELLON MR#: [id number] : 1990 Exam Date: 06/08/2025 Ordering Doctor: ANTONIO SAUCEDO ECHOCARDIOGRAM REPORT PROCEDURE: CA ECHO DOPPLER COMPLETE INDICATIONS: ruling out CHF, hypertension, post x 5 days, anemia, bilateral plueral effusion COMPARISON: None. DESCRIPTION: COMPLETE ECHOCARDIOGRAM Real-time transthoracic echocardiography with 2D, M-mode, spectral and color flow Doppler performed. QUALITY: Technical quality was good. LEFT VENTRICLE: Normal chamber size. Mild concentric left ventricular hypertrophy. Normal systolic function. LV EF: Normal left ventricular ejection fraction, (>55%). DIASTOLIC: Normal diastolic function. ATRIAL SEPTUM: LEFT ATRIUM: Normal chamber size. RIGHT ATRIUM: Normal chamber size. RIGHT VENTRICLE: Borderline chamber size. Normal right ventricular systolic function. TRICUSPID VALVE: Normal mobility and thickness. No stenosis with trivial regurgitation. Doppler studies reveal mildly (35-45) elevated right sided pressures. RVSP 37 mmHg MITRAL VALVE: Normal mobility and thickness. No evidence of mitral valve stenosis. There is no mitral annular calcification. Trivial mitral regurgitation. AORTIC VALVE: Normal trileaflet appearance. No visible sclerosis. Normal leaflet mobility. No evidence of aortic valve stenosis. No aortic regurgitation. AORTIC ROOT: Normal diameter and appearance, measuring 3.6 cm. Ascending aorta is normal in size. Measuring 3.5 cm. PULMONIC VALVE: Normal thickness and mobility. No stenosis. Trivial regurgitation. PERICARDIUM: No evidence of pericardial effusion. IVC: Collapses with inspiration. IVC is dilated (2.4 cm) PLEURA: CONCLUSION: 1. Mild concentric left ventricular hypertrophy with normal systolic function. LVEF is estimated at 60-65%. 2. Borderline right ventricular size with normal systolic function. 3. No significant valvular dysfunction. 4. Mildly elevated right sided pressures. Adult Echocardiography Procedure Report Left Ventricle LVEDD (3.7 - 5.6 cm): 4.99 cm LVESD (2.2 - 4.0 cm): 3.12 cm LVIVS thickness (0.6 - 1.2 cm): 1.07 cm LVPW thickness (0.5 - 1.0 cm): 1.08 cm e': 0.22 m/s E - e': 5.77 LVOT Max Gradient: 8.51 mm[Hg] LVOT Area (cm2): 1.46 m/s Peak Velocity (LVOT): 1.46 m/s Mean Velocity (LVOT): 0.88 m/s LVOT Diameter 2.11 cm Left Atrium LA Volume Index (2D A2C): 30.20 ml/m2 Left Atrium Systolic Dimension: 4.33 cm Mitral Valve MV E to A Ratio: 1.27 Mitral Valve A-Wave Peak Velocity: 1.00 m/s Mitral Valve E-Wave Peak Velocity: 1.27 m/s Right Ventricle Aorta AO Root Diam: 3.57 cm Ascending Ao Diam: 3.48 cm Aortic Valve AoV Area (Peak Juan): 2.92 cm2, 2.92 cm2 AoV Area (VTI): 3.35 cm2, 3.35 cm2 Peak Velocity(Antegrade Flow): 1.74 m/s Peak Gradient(Antegrade Flow): 12.14 mm[Hg] Mean Velocity(Antegrade Flow): 1.06 m/s Mean Gradient(Antegrade Flow): 5.49 mm[Hg] Velocity Time Integral: 29.82 cm Tricuspid Valve Peak Velocity (Regurgitant Flow): 2.71 m/s Pulmonic Valve Peak Gradient: 6.80 mm[Hg], 7.14 mm[Hg] Right Atrium Right Atrium Systolic Pressure: 63.98 ml, 63.98 ml Dictated by: Shorty Maciel M.D. on 06/08/2025 at 18:05 Approved by: Shorty Maciel M.D. on 06/08/2025 at 18:34
--- NOTE | 2025-06-08 11:40 | PC.NURSE ---
1135: Dr Page in department and updated by RN on hospitalist plan of care and current status.
--- NOTE | 2025-06-08 11:51 | P.IMHP_ITS ---
Internal Medicine - H&P: HPI History of Present Illness Chief complaint: INCREASED BLOOD PRESSURE Narrative: This is a pleasant 34-year-old female that I am seeing as G3, P2 at 36 weeks 6/7 weeks delivery due to severe preeclampsia where she was placed on magnesium drip. Her delivery was complicated by small hemorrhage but did not require any blood transfusion at the time. She was seen by her LEGAL INSTRUMENTS EXAMINER yesterday as a follow-up visit complaining of headache, described as pressure-like on both sides of her head worse with light and sitting up better with lying down and eyes. No sensitivity to noise. No aura. No fever no chills no nausea no vomiting. Was seen by her cat dog or other pet groomer yesterday and her blood pressure was elevated her preeclampsia workup was sent and was insignificant however hemoglobin came back to be 6.8 so patient was admitted under the LEGAL INSTRUMENTS EXAMINER service for blood transfusion. Patient received 2 units of packed RBCs last night finished at 11 PM last night. Patient was noted to have a low-grade fever 100.5 while getting the blood. Her blood pressure was elevated to 160 and 150 systolic. Patient woke up this morning complaining of shortness of breath and wheezing/chest tightness. The symptoms were brought by any sort of exertion from the bed to the bathroom and walking in the hallway. She denies any chest pain or nausea or vomiting or palpitations or diaphoresis or shoulder or neck or jaw pain. She also states that her legs are swollen and have been like that since her . The patient's dyspnea continued to worsen, the primary LEGAL INSTRUMENTS EXAMINER team sent the patient for CT angio of her chest which was negative for central PE, it did show small bilateral pleural effusions with vague basilar atelectasis, groundglass and small septal thickening, fluid overload was suspecting and developing infectious process cannot be excluded. Hospitalist service was called for further workup and management. When I see the patient, she already received 1 dose of Zithromax 5 mg IV once as well as 1 dose of Lasix 20 mg IV once by her LEGAL INSTRUMENTS EXAMINER team. Also patient was started on labetalol for blood pressure. Patient was feeling better when I saw her she just came from the bathroom. Her CBC today is showing a hemoglobin of 8.8. Otherwise no leukocytosis and platelets are stable at 147,000. No CMP from this morning. Review of Systems ROS Status of ROS 10 or more systems reviewed and unremark able except as noted in history and below [facility] Medical History (Updated 06/07/25 @ 23:33 by Nolan Cortes DO) HTN (hypertension) ?I10 - Essential (primary) hypertension (ICD-10) Gestational diabetes mellitus ?O24.419 - Gestational diabetes mellitus in , unspecified control (ICD-10) Surgical History History of cholecystectomy ?Z90.49 - Acquired absence of other specified parts of digestive tract (ICD- 10) Family History Brother Family history not known due to adoption Father Family history of cancer Mother Family history of diabetes mellitus Grandfather Family history of stroke Social History Within the past year, how often did you have a drink containing alcohol: never Within the past year, how often did you have six or more drinks on one occasion: never Score interpretation: A score less than 3 is consistent with normal alcohol consumption. Smoking status: Former smoker Do you use any of these nicotine containing products: vaping products Non-prescribed substance use: denies use Highest level of school completed/degree received: high school graduate Are you now , , , , never or living with a partner: In a typical week, how many times do you talk on the telephone with family, friends, or neighbors: 3 or more times per week How often do you get together with friends or relatives: 3 or more times per week How often do you attend jain or orthodox services: 1-3 times per year Do you belong to any clubs or organizations such as jain groups unions, fraternal or athletic groups, or school groups: no Total score: 2 Score interpretation: A score of greater than or equal to 2 indicates the lowest level of social isolation. Little interest or pleasure in doing things: not at all Feeling down, depressed, or hopeless: not at all Feel stressed/tense/nervous/anxious/difficulty sleeping: not at all Do you think of yourself as: straight/heterosexual Gender Identity: female Meds Home Medications and Allergies Home Medications ?Medication ?Instructions ?Recorded ?Confirmed ?Type vits no.130-ferrous fum 1 tab PO DAILY 06/02/25 History 27 mg iron-folic acid 800 mcg tablet ( Vitamin) ibuprofen 800 mg tablet 800 mg PO Q8H PRN Moderate P ain 06/05/25 Rx #60 tabs labetalol 200 mg tablet 200 mg PO BID 30 days #60 ta bs 06/07/25 Rx Allergies Allergy/AdvReac Type Severity Reaction Status Date / Time No Known Drug Allergies Allergy Verified 06/02/25 16:57 Exam Narrative Exam Narrative: General: The patient appears well and in no apparent distress. Patient is resting comfortably. Patient is not toxic, lethargic Skin: Warm, dry, no pallor noted. There is no rash noted. No petechiae, purpura. Head: Normocephalic, atraumatic Eye: Normal conjunctiva, no drainage, EOMI. PERRL Ears, Nose, Mouth, and Throat: oral mucosa is moist Neck/Thyoid: Supple, no lymphadenopathy, no JVD, no thyromegaly Cardiovascular: Regular Rate and Rhythm, no murmur, gallop, rub Respiratory: Patient is in no distress, there is some diminished breath sounds bilaterally, but patient has no use of accessory muscle use, no wheezing, rales or rhonchi, patient not in any respiratory distress. She is saturating well on room air Back: non-tender, no CVA tenderness bilaterally to percussion GI: soft, no tenderness, no signs of acute abdomen Musculoskeletal: Patient has full range of motion of all of the extremities, no motor, sensory, or focal neurological deficits Neurological: A&O x3, normal speech Constitutional Vital Signs, click to edit/add: Last Vital Signs Temp 98.0 F 06/07/25 23:44 Pulse 90 06/08/25 10:08 Resp 16 06/08/25 08:09 BP 151/71 H 06/08/25 10:45 Pulse Ox 95 06/07/25 22:49 O2 Del Method Room Air 06/08/25 08:09 Internal Medicine - H&P: Reslt Labs Labs: Short CBC 06/08/25 Range/Units 06:43 WBC 8.5 (4.0-11.0) 10^3/uL Hgb 8.8 L (12.0-16.0) g/dL Hct 26.6 L (36.0-48.0) % Plt Count 147 L (150-450) 10^3/uL BMP 06/07/25 11:33 BUN 11.0 Creatinine 0.51 L Liver Function 06/07/25 Range/Units 11:33 AST 23 (15-37) U/L ALT 30 (14-59) U/L Assessment and Plan Assessment and Plan (1) care following vaginal delivery: (2) Acute blood loss anemia: (3) Migraine: Plan Hypoxic respiratory failure in the setting of cardiomyopathy versus TACO Component of pneumonia PE is ruled out - Start patient IV Lasix 40 mg twice daily - Pending CMP and proBNP levels - Obtain echo - Consult cardiology - Strict I/os - Daily weights - Agree with IV azithromycin 500 mg IV daily as well as IV ceftriaxone 1 g every 24 hours if okay with LEGAL INSTRUMENTS EXAMINER from a breast-feeding perspective - Discussed the plan with the patient details. Answered all question - Rest of management as care as well as assessing safety for medications given the patient trying to breast-feed we will leave to LEGAL INSTRUMENTS EXAMINER service - Will continue to follow
[2025-06-08 12:15] LABS: Alanine Aminotransferase 39 U/L (14-59); Albumin Globulin Ratio 0.6; Albumin Level 2.1 g/dL (3.4-5.0); Alkaline Phosphatase 116 U/L (46-116); Anion Gap 15.6; Aspartate Amino Transferase 31 U/L (15-37); Blood Urea Nitrogen 7.0 mg/dL (7.0-18.0); Calcium 8.1 mg/dL (8.5-10.1); Carbon Dioxide 23.7 mmol/L (21.0-32.0); Chloride 102 mmol/L (98-107); Estimated GFR (African America >60 (>=60 mL/min/1.73m^2); Estimated GFR (Non-African Ame >60 (>=60 mL/min/1.73m^2); Globulin 3.6 g/dL; Glucose 189 mg/dL (74-106); Potassium 3.3 mmol/L (3.5-5.1); Sodium 138 mmol/L (136-145); Total Protein 5.7 g/dL (6.4-8.2)
[2025-06-08 12:23] LABS: NT Pro B Type Natriuretic Pept 830.0 pg/mL (<=450.0)
[2025-06-08] MEDS: POTASSIUM CHLORIDE 10 MEQ ER TABLET PO (13:41)
[2025-06-09] VITALS (9 sets, daily range): BP systolic 135–145; BP diastolic 71–81; PULSE 76–80; TEMP 36.7–37; O2SAT 95–99
[2025-06-09] MEDS: LABETALOL HCL 100 MG TABLET 300 MG PO ×3 (06:00→22:03)
[2025-06-09] MEDS: FUROSEMIDE 20 MG/2 ML VIAL IVP (06:01)
[2025-06-09 06:56] LABS: Hematocrit 26.3 % (36.0-48.0); Hemoglobin 8.7 g/dL (12.0-16.0); Immature Granulocytes Abs Auto 0.05 10^3/uL (0.00-0.03); Immature Granulocytes Pct Auto 0.6 % (0.0-0.5); Lymphocytes Absolute Auto 1.6 10^3/uL (1.2-3.8); Mean Corpuscular HGB Conc 33.1 g/dL (29.9-35.2); Mean Corpuscular Hemoglobin 31.2 pg (26.7-34.0); Mean Corpuscular Volume 94.3 fL (81.0-99.0); Platelet Count 166 10^3/uL (150-450); Red Blood Count 2.79 10^6/uL (4.20-5.40); White Blood Count 8.0 10^3/uL (4.0-11.0)
[2025-06-09 07:13] LABS: Alanine Aminotransferase 42 U/L (14-59); Albumin Globulin Ratio 0.6; Albumin Level 2.2 g/dL (3.4-5.0); Alkaline Phosphatase 110 U/L (46-116); Anion Gap 12.7; Aspartate Amino Transferase 31 U/L (15-37); Blood Urea Nitrogen 7.0 mg/dL (7.0-18.0); Calcium 8.0 mg/dL (8.5-10.1); Carbon Dioxide 28.5 mmol/L (21.0-32.0); Chloride 103 mmol/L (98-107); Estimated GFR (African America >60 (>=60 mL/min/1.73m^2); Estimated GFR (Non-African Ame >60 (>=60 mL/min/1.73m^2); Globulin 3.6 g/dL; Glucose 128 mg/dL (74-106); Potassium 3.2 mmol/L (3.5-5.1); Sodium 141 mmol/L (136-145); Total Protein 5.8 g/dL (6.4-8.2)
--- NOTE | 2025-06-09 10:11 | P.PN_ITS ---
Progress Note: Subjective Subjective Interval history: Patient seen and examined at bedside. I spoke to the nurse about her as well. Patient put out around 9 L with IV diuresis since yesterday. Feels a lot better today. Denies any wheezing or chest pain or shortness of breath. Able to ambulate normally. She was having breakfast when I saw her. Labs showed some hypokalemia which is expected with IV diuresis however still hemoglobin is stable. No other events overnight. Blood pressure is better with IV diuresis Exam Narrative Exam Narrative: General: The patient appears well and in no apparent distress. Patient is resting comfortably. Patient is not toxic, lethargic Skin: Warm, dry, no pallor noted. There is no rash noted. No petechiae, purpura. Head: Normocephalic, atraumatic Eye: Normal conjunctiva, no drainage, EOMI. PERRL Ears, Nose, Mouth, and Throat: oral mucosa is moist Neck/Thyoid: Supple, no lymphadenopathy, no JVD, no thyromegaly Cardiovascular: Regular Rate and Rhythm, no murmur, gallop, rub Respiratory: Patient is in no distress, there is some diminished breath sounds bilaterally, but patient has no use of accessory muscle use, no wheezing, rales or rhonchi, patient not in any respiratory distress. She is saturating well on room air Back: non-tender, no CVA tenderness bilaterally to percussion GI: soft, no tenderness, no signs of acute abdomen Musculoskeletal: Patient has full range of motion of all of the extremities, no motor, sensory, or focal neurological deficits Neurological: A&O x3, normal speech Constitutional Vital Signs, click to edit/add: Last Vital Signs Temp 98.6 F 06/09/25 08:25 Pulse 76 06/09/25 08:25 Resp 18 06/09/25 08:25 BP 135/79 06/09/25 08:25 Pulse Ox 97 06/09/25 08:25 O2 Del Method Room Air 06/09/25 08:25 Progress Note: Objective Labs Labs: Short CBC 06/09/25 Range/Units 06:49 WBC 8.0 (4.0-11.0) 10^3/uL Hgb 8.7 L (12.0-16.0) g/dL Hct 26.3 L (36.0-48.0) % Plt Count 166 (150-450) 10^3/uL BMP 06/08/25 06/09/25 11:47 06:49 Sodium 138 141 Potassium 3.3 L 3.2 L Chloride 102 103 Carbon Dioxide 23.7 28.5 BUN 7.0 7.0 Creatinine 0.71 0.64 Glucose 189 H 128 H Calcium 8.1 L 8.0 L Liver Function 06/08/25 06/09/25 Range/Units 11:47 06:49 Total Bilirubin 0.3 0.3 (0.2-1.0) mg/dL AST 31 31 (15-37) U/L ALT 39 42 (14-59) U/L Alkaline Phosphatase 116 110 (46-116) U/L Albumin 2.1 L 2.2 L (3.4-5.0) g/dL Progress Note: A&P Assessment and Plan (1) care following vaginal delivery: (2) Acute blood loss anemia: (3) Migraine: Plan Hypoxic respiratory failure in the setting of cardiomyopathy versus TACO Component of pneumonia Acute blood loss anemia Hypokalemia from IV diuresis PE is ruled out - Start patient IV Lasix 40 mg twice daily - Pending CMP and proBNP levels - Obtain echo - Consult cardiology - Strict I/os - Daily weights - Agree with IV azithromycin 500 mg IV daily as well as IV ceftriaxone 1 g every 24 hours if okay with HUMAN SERVICES ASSISTANT from a breast-feeding perspective - Discussed the plan with the patient details. Answered all question - Rest of management as care as well as assessing safety for medications given the patient trying to breast-feed we will leave to HUMAN SERVICES ASSISTANT service - Will continue to follow 06/09/2025 echo was reviewed showed mild concentric left ventricular hypertrophy with normal systolic function. EF is 60 to 65%. Borderline right ventricular size with normal systolic function. No significant valvular dysfunction. Mildly elevated right-sided pressures. Patient responded well to her IV diuresis she put out around 8 L and is free of symptoms today. I think this was all due to taco from blood transfusion. From a hospital standpoint, I stopped her IV diuresis today. Patient will need cardiology consult whether inpatient or outpatient when she is discharged. I also counseled her extensively on diet control as well as following DASH diet and with losing weight which will help with high blood pressure. I will defer further medication to control the HUMAN SERVICES ASSISTANT service as this is still within her timeframe of preeclampsia/gestational hypertension. However if the blood pressure is still not controlled I would just hydralazine if okay with HUMAN SERVICES ASSISTANT service. Patient need another day of azithromycin p.o. to 50 mg once once discharged. I discussed with her the plan in details. Answered all her questions. I will sign off please call me back with any other question if arises.
[2025-06-09] MEDS: AZITHROMYCIN 500 MG in 0.9 % SODIUM CHLORIDE 250 ML 250 MG IV (11:49)
[2025-06-09] MEDS: POTASSIUM CHLORIDE 10 MEQ ER TABLET 20 MEQ PO ×2 (11:50→21:06)
--- NOTE | 2025-06-09 12:35 | PM.OBPN ---
OB - PN: Subj Subjective Interval history: Patient seen and examined at bedside with her mother arriving during our interaction. She feels a lot better today. She denies any wheezing or chest pain or shortness of breath. Labs showed some hypokalemia which is expected with IV diuresis however still hemoglobin is stable. Blood pressure is better with IV diuresis. Her bleeding is fairly light after her delivery. she has minimal cramps. Patient comments: pain well controlled and tolerating diet Exam Constitutional Vital Signs, click to edit/add: Last Vital Signs Temp 98.6 F 06/09/25 08:25 Pulse 76 06/09/25 08:25 Resp 18 06/09/25 08:25 BP 135/79 06/09/25 08:25 Pulse Ox 97 06/09/25 08:25 O2 Del Method Room Air 06/09/25 08:25 Documenting provider has reviewed patient's vital signs: yes Common normals: no apparent distress and oriented x3 General appearance: cooperative and well developed Nutritional appearance: obese Orientation/consciousness: Yes awake, Yes oriented to person, Yes oriented to place and Yes oriented to time HENMT Head and scalp: normocephalic Eye Common normals: EOMs intact bilaterally GI Auscultation: normoactive bowel sounds Palpation: soft (non-tender, fundus below umbilicus) Back & Pelvis Common normals: no CVA tenderness Extremity Common normals: no calf tenderness (2+ edema) Psych Common normals: thought process normal, cooperative and affect normal Attitude: calm Results Labs Labs: Short CBC 06/09/25 Range/Units 06:49 WBC 8.0 (4.0-11.0) 10^3/uL Hgb 8.7 L (12.0-16.0) g/dL Hct 26.3 L (36.0-48.0) % Plt Count 166 (150-450) 10^3/uL BMP 06/09/25 06:49 Sodium 141 Potassium 3.2 L Chloride 103 Carbon Dioxide 28.5 BUN 7.0 Creatinine 0.64 Glucose 128 H Calcium 8.0 L Liver Function 06/09/25 Range/Units 06:49 Total Bilirubin 0.3 (0.2-1.0) mg/dL AST 31 (15-37) U/L ALT 42 (14-59) U/L Alkaline Phosphatase 110 (46-116) U/L Albumin 2.2 L (3.4-5.0) g/dL OB - PN: A/P Assessment and Plan (1) care following vaginal delivery: Assessment and Plan: routine care (2) Acute blood loss anemia: Assessment and Plan: Hgb is stable but still anemic - will add iron and vitamin C (3) Migraine: Assessment and Plan: none currently (4) Hypokalemia due to loss of potassium: Assessment and Plan: replace potassium Time Spent with Patient Time: Total time spent is greater than 50% in coordination of care (as documented) at patient's floor/unit and/or counseling patient: Total time spent with greater than 50% in coordination of care (as documented) at patient's floor/unit and/or counseling patient: 25 - 35 minutes
[2025-06-09] MEDS: FERROUS SULFATE 325 MG TABLET PO ×2 (14:22→21:06)
[2025-06-09] MEDS: ASCORBIC ACID 500 MG TABLET PO (15:09)
--- NOTE | 2025-06-09 19:22 | W.PC.ACHO ---
Registration Status: ADM IN Primary Language: Preferred Language: Report recieved from Tiffanie RN at 1900. Care assumed by this RN. Active Medications Generic Name Dose Route Start Last Admin Trade Name Raquel PRN Reason Stop Dose Admin Acetaminophen 1,000 mg 06/07/25 20:58 06/07/25 21:14 Acetaminophen 500 Mg Tablet PO 1,000 mg Q6H PRN Administration Fever Ascorbic Acid 500 mg 06/09/25 13:45 06/09/25 15:09 Ascorbic Acid 500 Mg Tablet PO 500 mg QD ARIEL Administration Azithromycin 500 mg 06/10/25 12:00 Azithromycin 250 Mg Tablet PO Q24H ARIEL Ferrous Sulfate 325 mg 06/09/25 14:00 06/09/25 14:22 Ferrous Sulfate 325 Mg Tablet PO 325 mg TID ARIEL Administration Sodium Chloride 250 mls @ 10 mls/hr 06/07/25 12:00 06/08/25 00:07 Sodium Chloride 0.9% 250 Ml IV Infused .Q24H PRN Infusion LINE CLEARANCE Ceftriaxone Sodium 1,000 mg/ 50 mls @ 100 mls/hr 06/08/25 17:00 06/09/25 17:10 Sodium Chloride IV Infused Q24H ARIEL Infusion Ibuprofen 800 mg 06/07/25 15:33 06/07/25 20:33 Ibuprofen 400 Mg Tablet PO 800 mg Q8H PRN Administration Headache Labetalol HCl 300 mg 06/08/25 15:00 06/09/25 14:23 Labetalol Hcl 100 Mg Tablet PO 300 mg TID ARIEL Administration Potassium Chloride 20 meq 06/09/25 21:00 Potassium Chloride 10 Meq Er Tablet PO 06/09/25 21:01 ONCE ONE Respiratory Pulse Oximetry 99 Pulse Oximetry 99 Pulse Oximetry 97 Pulse Oximetry 97 Pulse Oximetry 98 Pulse Oximetry 95 Oxygen Delivery Method Room Air Oxygen Delivery Method Room Air Oxygen Delivery Method Room Air Cardiology Heart Sounds Regular Heart Sounds Regular Heart Sounds Regular Renal Bladder Pattern Continent Bladder Pattern Continent Bladder Pattern Continent
[2025-06-10 06:15] VITALS: TEMP 36.7
[2025-06-10 06:20] VITALS: BP 120/72; PULSE 69
[2025-06-10] MEDS: LABETALOL HCL 100 MG TABLET 300 MG PO (06:21)
[2025-06-10] MEDS: FERROUS SULFATE 325 MG TABLET PO (06:22)
[2025-06-10 09:19] VITALS: BP 140/81; PULSE 80; TEMP 36.4
[2025-06-10 09:20] VITALS: BP 140/81; PULSE 80; TEMP 36.4; O2SAT 99
[2025-06-10] MEDS: ASCORBIC ACID 500 MG TABLET PO (09:25)
--- NOTE | 2025-06-10 12:06 | P.DS_ITS ---
<Statement entered by XOCHITL LUCIA MD - 06/10/25 14:06> She initially delivered via at 36 6/7 weeks on 06/03/25. She was delivered for severe preeclampsia and was on magnesium sulfate. She was discharged on 06/05/25 on labetalol 200 mg bid. She was seen in the clinic on 06/07/25 with headaches and elevated blood pressures and leg pain with severe edema. She was admitted and her labetalol was increased to 300 mg tid throughout her stay. Her Hgb was 6.8 so she was transfused 2 units of PRBCs. Hgb terrell to 8.8. She was discharged on iron and vitamin C. She had a low grade fever during her transfusion. she ended up with shortness of breath and chest tightness and wheezing. She had a Chest CT angio which was negative for PE. She was started on zithromax and later Rocephin. She was given IV Lasix for her severe edema and hypokalemia was treated with potassium. She had an echocardiogram ordered which showed mild left ventricular hypertrophy and normal systolic function with an ejection fraction of 60-65 % and borderline right ventricular size with normal systolic function and mild elevated right sided pressures. She will see cardiology as an outpatient. She was feeling well on hospital day # 4 and was discharged home without further difficulty. DS: Providers Provider Date of admission: 06/08/25 11:20 Primary care physician: Non-Staff PhysicianMD Admitting clinician: Nolan Cortes Attending physician on admission: Nolan Cortes Consults: 06/08/25 Consult to Hospitalist Routine Consulting Provider: Nolan Cortes Reason for consultation: pulmonary effusion Attending physician on discharge: XOCHITL LUCIA Discharging clinician: XOCHITL LUCIA Anticipated date of discharge: 06/10/25 DS: Diagnosis Discharge Diagnosis (1) care following vaginal delivery: Assessment and plan: she had preeclampsia and was on magnesium sulfate and was discharged on labetalol. she was readmitted with fluid overload. (2) Acute blood loss anemia: Assessment and plan: patient was transfused 2 units PRBCs (3) Migraine: Qualifiers: Intractability: not intractable Migraine type: migraine (< 15 days per month) without aura Status migrainosus presence: without status migrainosus Qualified Code(s): G43.009 - Migraine without aura, not intractable, without status migrainosus (4) Hypokalemia due to loss of potassium: Assessment and plan: She received lasix and potassium replacement (5) hypertension: Assessment and plan: was admitted on labetalol 200 mg bid and was discharged on 300 mg tid (6) Pneumonia: Assessment and plan: She was on zithromax and rocephin and will go home on oral zithromax and keflex Qualifiers: Laterality: unspecified laterality Lung location: unspecified part of lung Pneumonia type: due to unspecified organism Qualified Code(s): J18.9 - Pneumonia, unspecified organism OB - DS: Summary Complications complications: transfusion Discharge plan: home Status at Discharge Cognitive/behavioral status at discharge: stable Functional status at discharge: independent ambulation Overall status at discharge: patient is back to baseline Time Spent with Patient Time attestation: Total time spent providing and/or coordinating discharge services: Time spent: greater than 30 minutes Exam Constitutional Vital Signs, click to edit/add: Last Vital Signs Temp 97.6 F 06/10/25 09:20 Pulse 80 06/10/25 09:20 Resp 16 06/10/25 09:20 BP 140/81 06/10/25 09:20 Pulse Ox 99 06/10/25 09:20 O2 Del Method Room Air 06/10/25 09:20 Documenting provider has reviewed patient's vital signs: yes Common normals: no apparent distress, oriented x3, healthy appearing and alert General appearance: cooperative and well developed Nutritional appearance: overweight Orientation/consciousness: Yes awake HENMT Common normals: normocephalic Eye Common normals: EOMs intact bilaterally Neck & C-Spine Common normals: full ROM Respiratory Common normals: normal respiratory effort Cardio Common normals: regular rate Rhythm: regular rhythm GI Auscultation: normoactive bowel sounds Palpation: soft Other: fundus below umbilicus Common normals: no CVA tenderness Extremity Common normals: no calf tenderness Other: 2+ lower extremity edema Neuro Common normals: oriented x3 Sensorium/orientation: awake, oriented to person, oriented to place and oriented to time Speech: speech normal Gait (neuro): normal gait Psych Common normals: mental status grossly normal, thought process normal, cooperative, affect normal, speech normal and activity/motor behavior normal Appearance: grossly normal Attitude: calm Activity/motor behavior: appropriate eye contact Speech: normal speech Discharge Plan Discharge Disposition: Home, Self-Care Condition: Good Discharge Medications: New ascorbic acid (vitamin C) [Vitamin C] 500 mg Tablet 500 mg PO QD Qty: 60 0RF cephalexin 500 mg Capsule 1,000 mg PO BID Qty: 28 0RF ferrous sulfate 325 mg (65 mg iron) Tablet 325 mg PO TID Qty: 180 5RF furosemide 20 mg Tablet 20 mg PO DAILY Qty: 10 0RF labetalol 100 mg Tablet 300 mg PO TID Qty: 90 11RF potassium chloride 20 mEq tablet,ER particles/crystals 20 meq PO DAILY Qty: 10 0RF azithromycin 500 mg tablet 500 mg PO DAILY 7 Days Qty: 7 0RF Continued Vitamin 27 mg iron- 800 mcg tablet 1 tab PO DAILY ibuprofen 800 mg tablet 800 mg PO Q8H PRN (Reason: Moderate Pain) Qty: 60 0RF Activity: increase activity as tolerated Diet: regular diet Print Language: French Patient Instructions: Hypokalemia (IP), Preeclampsia During (DC), Anemia (GEN) Activity Restrictions/Additional Instructions: No lifting over 20 pounds for 1-2 weeks. No sexual activity or nothing in the vagina for 6 weeks . No douching ever. No driving for 1-2 weeks . Showers are fine but no sitting and soaking in a bathtub or pool for 6 weeks. Call for temperature over 101 degrees, pain not controlled with your pain medicines, bleeding completely soaking a pad in an hour or severe nausea. call for headaches or blurry vision. Forms: Portal Instructions Referrals: outpatient cardiology [Other, Cardiology] Follow Up Appointments: [address] Vern Cortes Discharge location: home
--- NOTE | 2025-06-10 12:25 | P.DS_ITS ---
DS: Providers Provider Date of admission: 06/08/25 11:20 Primary care physician: Non-Staff Physician, Admitting clinician: Nolan Cortes Attending physician on admission: Nolan Cortes Consults: 06/08/25 Consult to Hospitalist Routine Consulting Provider: Nolan Cortes Reason for consultation: pulmonary effusion Attending physician on discharge: XOCHITL LUCIA Discharging clinician: XOCHITL LUCIA Anticipated date of discharge: 06/10/25 DS: Diagnosis Discharge Diagnosis (1) care following vaginal delivery: (2) Acute blood loss anemia: (3) Migraine: (4) Hypokalemia due to loss of potassium: (5) hypertension: (6) Pneumonia: (7) Acute leg pain: OB - DS: Summary Time Spent with Patient Time attestation: Total time spent providing and/or coordinating discharge services: Time spent: greater than 30 minutes Exam Constitutional Vital Signs, click to edit/add: Last Vital Signs Temp 97.6 F 06/10/25 09:20 Pulse 80 06/10/25 09:20 Resp 16 06/10/25 09:20 BP 140/81 06/10/25 09:20 Pulse Ox 99 06/10/25 09:20 O2 Del Method Room Air 06/10/25 09:20 Discharge Plan Discharge Disposition: Home, Self-Care Condition: Good Discharge Medications: New azithromycin 250 mg Tablet 500 mg PO Q24H Qty: 7 0RF ascorbic acid (vitamin C) [Vitamin C] 500 mg Tablet 500 mg PO QD Qty: 60 0RF cephalexin 500 mg Capsule 1,000 mg PO BID Qty: 28 0RF ferrous sulfate 325 mg (65 mg iron) Tablet 325 mg PO TID Qty: 180 5RF furosemide 20 mg Tablet 20 mg PO DAILY Qty: 10 0RF labetalol 100 mg Tablet 300 mg PO TID Qty: 90 11RF potassium chloride 20 mEq tablet,ER particles/crystals 20 meq PO DAILY Qty: 10 0RF Continued Vitamin 27 mg iron- 800 mcg tablet 1 tab PO DAILY ibuprofen 800 mg tablet 800 mg PO Q8H PRN (Reason: Moderate Pain) Qty: 60 0RF Activity: increase activity as tolerated Diet: regular diet Print Language: Bengali Forms: Portal Instructions Referrals: outpatient cardiology [Other, Cardiology] Follow Up Appointments: [address] Vern Cortes Discharge location: home
[2025-06-10] MEDS: AZITHROMYCIN 250 MG TABLET 500 MG PO (12:49)
--- NOTE | 2025-06-10 13:51 | PC.NURSE ---
1215: Cardiology appointment scheduled with SPecialty Clinc at [facility] for 06/27/25 at 1300.
== END 2025-06-10 13:05 | disposition home or self-care (01) | DRG 640 ==
PROVIDERS: Admitting Provider Obstetrics & Gynecology; Visit Provider Student in an Organized Health Care Education/Training Program
DX: E87.71 Transfusion associated circulatory overload (principal); J18.9 Pneumonia, unspecified organism; O86.89 Other specified puerperal infections; O90.3 Peripartum cardiomyopathy; D62 Acute posthemorrhagic anemia; O14.95 Unspecified pre-eclampsia, complicating the puerperium; O90.81 Anemia of the puerperium; E87.6 Hypokalemia; Z87.891 Personal history of nicotine dependence; Z82.3 Family history of stroke
CPT/HCPCS: 36415; 36430; 71275; 80053; 82565; 83880; 84450; 84460; 84520; 84550; 85025; 86850; 86900; 86901; 86920; 86922; 93306; G0378; J0456; J0696; J1938; P9016; Q9967

== ENCOUNTER 2025-08-26 08:01 | Outpatient (OUT) | payer BC, SELFPAY ==
--- OUTSIDE RECORDS SUMMARY | 2025-08-26 08:07 | XMS_ITS | CCD ---
Author Organization [facility] Care Team Providers [employer] Sales Consultant Name Role Phone PETRA ., DR WHITAKER [...] DR GUZMAN Attending Unavailable SEBASTIAN ., DR GUMZAN Consulting Unavailable REQUEST, NONE [...] Unavailable Unavailable Primary Care Provider Unavailabl e Geeta MD, Melony M Primary Care Provider ALEXANDRIA IRAHETA Attending Unavailable NOLAN CORTES Referring Unavailable GEETA, MELONY Sibley Primary Care Unavailguillermina e KENYA ACOSTA Attending Unavailable SEBASTIAN, NOLAN R Referring Unavailable GEETA, MELONY Sibley Primary Care Unavailguillermina CUMMINGS, KAREEM Attending Unavailable SEBASTIAN, NOLAN R Referring Unavailable GEETA, MELONY Sibley Primary Care UnavailKENYA Samuels Attending Unavailable GEETA, MELONY Sibley Referring Unavailabl e GEETA, MELONY Sibley Primary Care Unavailguillermina CUMMINGS, KAREEM Attending Unavailable GEETA, MELONY Sibley Referring Unavailabl e GEETA, MELONY Sibley Primary Care Unavailabl e JENNIFER GARCIA Attending Unavailable SEBASTIAN, NOLAN Attending Unavailable SEBASTIAN, NOLAN Attending Unavailable SEBASTIAN, NOLAN Attending Unavailable SEBASTIAN, NOLAN Attending Unavailable SEBASTIAN, NOLAN Attending Unavailable SEBASTIAN, NOLAN Attending Unavailable POLINA, KRISTAN Attending Unavailable SEBASTIAN, NOLAN Attending Unavailable POLINA, KRISTAN Attending Unavailable POLINA, KRISTAN Attending Unavailable SEBASTIAN, NOLAN Attending Unavailable SEBASTIAN, NOLAN Attending Unavailable TRENA, BLANK Attending Unavailable POLINA, KRISTAN Attending Unavailable POLINA, KRISTAN Attending Unavailable TRENA, BLANK Attending Unavailable Medications Current Medications Medication Drug Class(es) Dates Sig (Normalized) Sig (Original) ascorbic acid 500 mg extended release oral capsule (10 sources) Vitamin C take 1 capsule by mouth once daily ascorbic acid (Vitamin C) 500 MG ER capsule Take 500 mg by mouth Daily Active aspirin 81 mg delayed release oral tablet (20 sources) Platelet Aggregation Inhibitor, Nonsteroidal Anti-inflammatory Drug End: 06-16-2025 take 1 tablet by mouth once daily aspirin 81 MG EC tablet Take 81 mg by mouth Daily 06/16/2025 Discontinued aspirin 81 mg ch ewable tablet Chew 1 tablet (81 mg total) and swallow in the morning. Active Blood Glucose Monitoring Sup pl (Accu-Chek Guide Me) w/Device kit (20 sources) Start: 02-21-2025 End: 06-07-[address] (Accu-Chek Guide Me) w/Device kit Indications: Gestational diabetes mellitus (GDM), antepartum, gestational diabetes method of control unspecified ([facility]) , Elevated glucose tolerance test USE TO [...] MICRO GLUCOSE MONITOR) misc (15 sources) blood-glucose meter (RELION MICRO GLUCOSE MONITOR) misc by miscellaneous route. Active cephalexin 500 mg oral capsule (4 sources) Cephalosporin Antibacterial Start: 06-10-2025 End: 06-23-2025 take 1 capsule by mouth in the morning cephalexin (Keflex) 500 MG capsule Take 500 mg by mouth in the morning and 500 mg before bedtime. 06/10/2025 06/23/2025 Discontinued ferrous sulfate 325 mg oral tablet (10 sources) Start: 06-10-2025 take 1 tablet by mouth at mealtime FeroSul 325 (65 Fe) MG tablet Take 325 mg by mouth in the morning. Take with meals. 06/10/2025 Active furosemide 20 mg oral tablet (2 sources) Loop Diuretic Start: 06-10-2025 End: 06-16-2025 take 1 tablet by mouth once daily furosemide (Lasix) 20 MG tablet Take 20 mg by mouth Daily 06/10/2025 06/16/2025 Discontinued (Therapy completed) isopropyl alcohol 0.7 ml/ml medicated pad (20 sources) Start: 01-24-2025 End: 06-07-2025 Alcohol Swabs (Alcohol Prep Pad) 70 % pads Indications: Gestational diabetes mellitus (GDM), antepartum, gestational diabetes method of control unspecified ([facility]) , Elevated glucose tolerance test Apply 1 [...] nausea or vomiting. 03/23/2025 Discontinued (Alternate therapy) microencapsulated potassium chloride 20 meq extended release oral tablet (4 sources) Start: 06-10-2025 End: 06-23-2025 potassium chloride CR (Klor-Con M20) 20 MEQ ER tablet Take 20 mEq by mouth Daily 06/10/2025 06/23/2025 Discontinued MV & Min w/FA-DHA ( Adult Gummy/DHA/FA) 0.4-25 MG chewable tablet (20 sources) Start: 06-10-2025 End: 06-23-2025 MV & Min w/FA-DHA ( Adult Gummy/DHA/FA) 0.4-25 MG chewable tablet Chew 1 capsule Daily 06/10/2025 06/23/2025 Discontinued Start: 06-10-2025 MV & Min w/FA-DHA ( Adult Gummy/DHA/FA) 0.4- 25 MG chewable tablet Chew 1 capsule Daily 06/10/2025 Active Start: 12-30-2024 End: 06-07-2025 MV & Min [...] therapy) labetalol hydrochloride 100 mg oral tablet (20 sources) beta-Adrenergic Del Start: 06-30-2025 End: 07-14-2025 take 1 tablet by mouth in the morning labetalol (Normodyne) 100 MG tablet Indications: BP check Take 1 tablet (100 mg) by mouth in the morning and 1 tablet (100 mg) before bedtime. Do all this for 10 days. 20 tablet 06/30/2025 07/14/2025 Discontinued (Therapy completed) Start: 06-10-2025 End: 07-16-2025 take 2 tablets by mouth in the morning, then take 2 tablets by mouth in the evening, then take 2 tablets by mouth at bedtime labetalol (Normodyne) 100 MG tablet Indications: Encounter for visit ([facility]) , Blood pressure check Take 2 tablets (200 mg) by mouth in the morning and 2 tablets (200 mg) in the evening and 2 tablets (200 mg) before bedtime. 180 tablet 06/16/2025 07/16/2025 Active End: 03-08-2025 take 1 tablet by mouth [...] Translations: [Missed period] Onset: 01-23-2023 Chronic Other and ill-defined heart disease (2 sources) Cardiomegaly; Translations: [Cardiomegaly] Onset: 06-27-2025 Chronic Other circulatory disease (2 sources) H/O: [...] conditions (not mental disorders or infectious disease) (9 sources) Encounter for screening for malignant neoplasm [...] Test Name Value Interpretation Reference Range Facility 29on 06-27-2025 29 Addended by: JENNIFER GARCIA on: 06/27/2025 01:36 PM Modules accepted: Orders Normal [facility] Office Visiton 06-27-2025 Follow-up visit [id number] Charlene Purvis 1990 F Date Provider Department Center 06/27/2025 [facility]JENNIFER GARCIA CARD [facility] Family History Problem Relation Age of Onset Heart murmur Mother Family Status - Relation Status Age at Mother Alive Father Alive Level of Service:13616 LA OFFICE/OUTPATIENT NEW LOW MDM 30 MINUTES (25) Normal [facility] ALL CBC WITH AUTO DIFFon BASOPHILS ABSOLUTE AUTO 0 [facility] Basophils/100 WBC (Bld) 0.2 % 0.2 - 2.0 % [facility] Eosinophils/100 WBC (Bld) 2 % 0.9 - 7.0 % [facility] Erythrocyte distribution width (RBC) [Ratio] 14 % 11.0 - 15.0 % [facility] Hematocrit (Bld) [Volume fraction] 26.6 % Low 36.0 - 48.0 % [facility] Hemoglobin (Bld) [Mass/Vol] 8.8 g/dL Low 12.0 - 16.0 g/dL [facility] IMMATURE GRANULOCYTES ABS AUTO 0.03 [facility] Immature granulocytes/100 WBC (Bld) 0.4 % 0.0 - 0.5 % [facility] Interpretation and review of laboratory results Abnormal [facility] LYMPHOCYTES ABSOLUTE AUTO 1 Low [facility] Lymphocytes/100 WBC (Bld) 11.7 % Low 20.5 - 60.0 % [facility] MCH (RBC) [Entitic mass] 31.3 pg 26.7 - 34.0 pg [facility] MCHC (RBC) [Mass/Vol] 33.1 g/dL 29.9 - 35.2 g/dL [facility] MCV (RBC) [Entitic vol] 94.7 fL 81.0 - 99.0 fL [facility] MONOCYTES ABSOLUTE AUTO 0.7 [facility] Monocytes/100 WBC (Bld) 8 % 1.7 - 12.0 % [facility] NEUTROPHILS ABSOLUTE AUTO 6.6 High [facility] Neutrophils/100 WBC (Bld) 77.7 % High 43.0 - 75.0 % [facility] Platelet mean volume (Bld) [Entitic vol] 11.2 fL 9.5 - 13.5 fL [facility] EO # 0.2 [facility] PLT 147 Low [facility] TB RBC 2.81 Low [facility] TBH WBC 8.5 [facility] CTA Chest vessels WO and W c ontrast Omar 06-08-2025 [place] [address] CT Scan Report Signed Patient: CHARLENE PURVIS MR#: [id number] : 1990 Acct:[id number] Age/Sex: 34 / F ADM Date: Loc: [facility] 252-[address]: Nolan Cortes D.O. Ordering Physician: Nolan Cortes D.O. Date of Service: 06/08/25 Procedure(s): CT angio chest Accession Number(s): [id number] cc: Physician,Non-Staff M.Daisy [place] [address] Patient Name: CHARLENE PURVIS MRN: [facility]:[id number] date: 1990 Sex: F Assigned Patient Location: [facility] Current Patient Location: [facility] Accession/Order Number: [id number] Exam Date: 06/08/2025 09:37 Report Date: 06/08/2025 09:40 At the request of: NOLAN CORTES DO Procedure: CT angio chest CT ANGIOGRAM OF THE CHEST, PULMONARY EMBOLISM PROTOCOL: CLINICAL INFORMATION: Wheezing. 6 stable post . Shortness of breath with exertion for one day. COMPARISON: None TECHNIQUE: Following intravenous injection of contrast CT scans of the chest were obtained using pulmonary embolism protocol. Coronal and sagittal reconstructed images, as well as volume rendered CT pulmonary angiographic images were also submitted.The CT exam was performed using one or more of the following dose reduction techniques: Automated exposure control, adjustment of the MA and/or Kv according to patient size, or use of the iterative reconstruction technique. FINDINGS: Pulmonary Vasculature: Contrast bolus is suboptimal for evaluation of segmental and subsegmental pulmonary embolism. No central pulmonary embolism is noted. Pulmonary trunk appears nondilated. Mediastinum : Thoracic aorta is normal in caliber. No pericardial effusion. No lymphadenopathy. The esophagus is grossly unremarkable. Lungs: Small bilateral pleural effusions with bibasilar atelectasis, groundglass and smooth septal thickening. No pneumothorax. Upper abdomen: No acute findings Soft tissue/bones: Soft tissues surrounding the chest wall demonstrate no acute findings. Osseous structures demonstrate degenerative change. CT/CT angio chest IMPRESSION: SUBOPTIMAL BOLUS TIMING. NO CENTRAL PULMONARY EMBOLISM. SMALL BILATERAL PLEURAL EFFUSIONS WITH BIBASILAR ATELECTASIS, GROUNDGLASS AND SMOOTH SEPTAL THICKENING. FLUID OVERLOAD IS SUSPECTED. DEVELOPING INFECTIOUS PROCESS CANNOT BE EXCLUDED. Impression dictated by: Jacinto Rivas Jr., D.O. 06/08/2025 9:40 AM Dictation Location: [place] [address] Electronically authenticated by: [id number] Y Date: 06/08/2025 09:40 Dictated By: Jacinto Rivas M.D. Signed By: 06/08/2542 DD/ 9 TD/TT: Bilingual Customer Service Specialist: [facility] Radiology, Radiologist, MD - 06/08/2025 [place] [address] CT Scan Report Signed Patient: CHARLENE PURVIS MR#: [id number] : 1990 Acct:[id number] Age/Sex: 34 / F ADM Date: Loc: [facility] [address]: Nolan Cortes D.O. Ordering Physician: Nolan Cortes D.O. Date of Service: 06/08/25 Procedure(s): CT angio chest Accession Number(s): [id number] cc: Physician,Non-Staff Nikky The [address] [address] Patient Name: CHARLENE PURVIS MRN: [facility]:[id number] date: 1990 Sex: F Assigned Patient Location: [facility] Current Patient Location: [facility] Accession/Order Number: [id number] Exam Date: 06/08/2025 09:37 Report Date: 06/08/2025 09:40 At the request of: NOLAN CORTES DO Procedure: CT angio chest CT ANGIOGRAM OF THE CHEST, PULMONARY EMBOLISM PROTOCOL: CLINICAL INFORMATION: Wheezing. 6 stable post . Shortness of breath with exertion for one day. COMPARISON: None TECHNIQUE: Following intravenous injection of contrast CT scans of the chest were obtained using pulmonary embolism protocol. Coronal and sagittal reconstructed images, as well as volume rendered CT pulmonary angiographic images were also submitted.The CT exam was performed using one or more of the following dose reduction techniques: Automated exposure control, adjustment of the MA and/or Kv according to patient size, or use of the iterative reconstruction technique. FINDINGS: Pulmonary Vasculature: Contrast bolus is suboptimal for evaluation of segmental and subsegmental pulmonary embolism. No central pulmonary embolism is noted. Pulmonary trunk appears nondilated. Mediastinum : Thoracic aorta is normal in caliber. No pericardial effusion. No lymphadenopathy. The esophagus is grossly unremarkable. Lungs: Small bilateral pleural effusions with bibasilar atelectasis, groundglass and smooth septal thickening. No pneumothorax. Upper abdomen: No acute findings Soft tissue/bones: Soft tissues surrounding the chest wall demonstrate no acute findings. Osseous structures demonstrate degenerative change. CT/CT angio chest IMPRESSION: SUBOPTIMAL BOLUS TIMING. NO CENTRAL PULMONARY EMBOLISM. SMALL BILATERAL PLEURAL EFFUSIONS WITH BIBASILAR ATELECTASIS, GROUNDGLASS AND SMOOTH SEPTAL THICKENING. FLUID OVERLOAD IS SUSPECTED. DEVELOPING INFECTIOUS PROCESS CANNOT BE EXCLUDED. Impression dictated by: Jacinto Rivas Jr., D.OMya 06/08/2025 9:40 AM Dictation Location: [place] [address] Electronically authenticated by: [id number] Y Date: 06/08/2025 09:40 Dictated By: Jacinto Rivas M.D. Signed By: 06/08/25 0942 DD/ 9 TD/TT: Bilingual Customer Service Specialist: [facility] Radiology Study observation (narrative) [facility] CTA Chest vessels WO and W c ontrast IVOrdered By: Radiologist Radiology on 06-08-2025 [facility] Work Phone: ALL CBC WITH AUTO DIFFon BASOPHILS ABSOLUTE AUTO 0 [facility] Basophils/100 WBC (Bld) 0.3 % 0.2 - 2.0 % [facility] Eosinophils/100 WBC (Bld) 3.6 % 0.9 - 7.0 % [facility] Erythrocyte distribution width (RBC) [Ratio] 13.4 % 11.0 - 15.0 % [facility] Hematocrit (Bld) [Volume fraction] 20.6 % Critically low 36.0 - 48.0 % [facility] Comment on above: RESULTS CALLED TO [place] RN Hemoglobin (Bld) [Mass/Vol] 6.8 g/dL Critically low 12.0 - 16.0 g/dL [facility] Comment on above: RESULTS CALLED TO [place] RN IMMATURE GRANULOCYTES ABS AUTO 0.05 High [facility] Immature granulocytes/100 WBC (Bld) 0.7 % High 0.0 - 0.5 % [facility] Interpretation and review of laboratory results Abnormal [facility] LYMPHOCYTES ABSOLUTE AUTO 1.3 [facility] Lymphocytes/100 WBC (Bld) 17.3 % Low 20.5 - 60.0 % [facility] MCH (RBC) [Entitic mass] 32.1 pg 26.7 - 34.0 pg [facility] MCHC (RBC) [Mass/Vol] 33 g/dL 29.9 - 35.2 g/dL [facility] MCV (RBC) [Entitic vol] 97.2 fL 81.0 - 99.0 fL [facility] MONOCYTES ABSOLUTE AUTO 0.6 [facility] Monocytes/100 WBC (Bld) 8.1 % 1.7 - 12.0 % [facility] NEUTROPHILS ABSOLUTE AUTO 5.1 [facility] Neutrophils/100 WBC (Bld) 70 % 43.0 - 75.0 % [facility] Platelet mean volume (Bld) [Entitic vol] 11.2 fL 9.5 - 13.5 fL [facility] EO # 0.3 [facility] PLT 135 Low [facility] RBC 2.12 Low [facility] WBC 7.3 [facility] ALL CBC WITH AUTO DIFFon BASOPHILS ABSOLUTE AUTO 0 [facility] Basophils/100 WBC (Bld) 0.1 % Low 0.2 - 2.0 % [facility] Eosinophils/100 WBC (Bld) 0 % Low 0.9 - 7.0 % [facility] Erythrocyte distribution width (RBC) [Ratio] 13.8 % 11.0 - 15.0 % [facility] Hematocrit (Bld) [Volume fraction] 26.8 % Low 36.0 - 48.0 % [facility] Hemoglobin (Bld) [Mass/Vol] 8.8 g/dL Low 12.0 - 16.0 g/dL [facility] IMMATURE GRANULOCYTES ABS AUTO 0.1 High [facility] Immature granulocytes/100 WBC (Bld) 0.9 % High 0.0 - 0.5 % [facility] Interpretation and review of laboratory results Abnormal [facility] LYMPHOCYTES ABSOLUTE AUTO 1.2 [facility] Lymphocytes/100 WBC (Bld) 10.6 % Low 20.5 - 60.0 % [facility] MCH (RBC) [Entitic mass] 32 pg 26.7 - 34.0 pg [facility] MCHC (RBC) [Mass/Vol] 32.8 g/dL 29.9 - 35.2 g/dL [facility] MCV (RBC) [Entitic vol] 97.5 fL 81.0 - 99.0 fL [facility] MONOCYTES ABSOLUTE AUTO 0.4 [facility] Monocytes/100 WBC (Bld) 3.7 % 1.7 - 12.0 % [facility] NEUTROPHILS ABSOLUTE AUTO 9.2 High [facility] Neutrophils/100 WBC (Bld) 84.7 % High 43.0 - 75.0 % [facility] Platelet mean volume (Bld) [Entitic vol] 12.5 fL 9.5 - 13.5 [facility]L [facility] PLT 123 Low [facility] RBC 2.75 Low [facility] WBC 10.9 [facility] ALL CBC WITH AUTO DIFFon BASOPHILS ABSOLUTE AUTO 0 [facility] Basophils/100 WBC (Bld) 0.3 % 0.2 - 2.0 % [facility] Eosinophils/100 WBC (Bld) 0.7 % Low 0.9 - 7.0 % [facility] Erythrocyte distribution width (RBC) [Ratio] 13.3 % 11.0 - 15.0 % [facility] Hematocrit (Bld) [Volume fraction] 29.5 % Low 36.0 - 48.0 % [facility] Hemoglobin (Bld) [Mass/Vol] 9.9 g/dL Low 12.0 - 16.0 g/dL [facility] IMMATURE GRANULOCYTES ABS AUTO 0.05 High [facility] Immature granulocytes/100 WBC (Bld) 0.4 % 0.0 - 0.5 % [facility] Interpretation and review of laboratory results Abnormal [facility] LYMPHOCYTES ABSOLUTE AUTO 0.9 Low [facility] Lymphocytes/100 WBC (Bld) 7.5 % Low 20.5 - 60.0 % [facility] MCH (RBC) [Entitic mass] 32.6 pg 26.7 - 34.0 pg [facility] MCHC (RBC) [Mass/Vol] 33.6 g/dL 29.9 - 35.2 g/dL [facility] MCV (RBC) [Entitic vol] 97 fL 81.0 - 99.0 fL [facility] MONOCYTES ABSOLUTE AUTO 0.7 [facility] Monocytes/100 WBC (Bld) 6.2 % 1.7 - 12.0 % [facility] NEUTROPHILS ABSOLUTE AUTO 10 High [facility] Neutrophils/100 WBC (Bld) 84.9 % High 43.0 - 75.0 % [facility] Platelet mean volume (Bld) [Entitic vol] 12.4 fL 9.5 - 13.5 [facility]L [facility] # 0.1 [facility] PLT 125 Low [facility] RBC 3.04 Low [facility] WBC 11.8 High [facility] ALL CBC WITH AUTO DIFFon BASOPHILS ABSOLUTE AUTO 0 [facility] Basophils/100 WBC (Bld) 0.3 % 0.2 - 2.0 % [facility] Eosinophils/100 WBC (Bld) 2.2 % 0.9 - 7.0 % [facility] Erythrocyte distribution width (RBC) [Ratio] 13.2 % 11.0 - 15.0 % [facility] Hematocrit (Bld) [Volume fraction] 35 % Low 36.0 - 48.0 % [facility] Hemoglobin (Bld) [Mass/Vol] 11.9 g/dL Low 12.0 - 16.0 g/dL [facility] IMMATURE GRANULOCYTES ABS AUTO 0.03 [facility] Immature granulocytes/100 WBC (Bld) 0.5 % 0.0 - 0.5 % [facility] Interpretation and review of laboratory results Abnormal [facility] LYMPHOCYTES ABSOLUTE AUTO 1.9 [facility] Lymphocytes/100 WBC (Bld) 28.6 % 20.5 - 60.0 % [facility] MCH (RBC) [Entitic mass] 31.8 pg 26.7 - 34.0 pg [facility] MCHC (RBC) [Mass/Vol] 34 g/dL 29.9 - 35.2 g/dL [facility] MCV (RBC) [Entitic vol] 93.6 fL 81.0 - 99.0 fL [facility] MONOCYTES ABSOLUTE AUTO 0.6 [facility] Monocytes/100 WBC (Bld) 9.9 % 1.7 - 12.0 % [facility] NEUTROPHILS ABSOLUTE AUTO 3.8 [facility] Neutrophils/100 WBC (Bld) 58.5 % 43.0 - 75.0 % [facility] Platelet mean volume (Bld) [Entitic vol] 12.6 fL 9.5 - 13.5 fL [facility] TBH EO # 0.1 [facility] TB PLT 113 Low [facility] RBC 3.74 Low [facility] WBC 6.5 [facility] Urinalysis macro (dipstick) panel (U)on 05-31-2025 Bilirubin, UA Negative Negative - 4(70) +++ mg/dL [facility] Blood, UA Positive Negative - 50 Eliceo/mcL [facility] Comment on above: Trace Clarity, UA Clear [facility] Color, UA Yellow [facility] Glucose, UA Negative Negative - 1999(110) ++++ mg/dL [facility] Interpretation and review of laboratory results Abnormal [facility] Ketones, UA Positive Negative - 160(16) ++++ mg/dL [facility] Comment on above: 80mg/dL Leukocytes, UA Positive Negative - 500+++ Danielle/mcL [facility] Comment on above: small Nitrite, UA Negative Negative - Positive [facility] pH, UA 7 5 - 9 [facility] Protein, UA Positive Negative - 1999(20) ++++ mg/dL [facility] Comment on above: 30mg/dL Spec Grav, UA 1.015 1 - 1.03 [facility] Urobilinogen, UA 0.2 0.2 - 12 mg/dL [facility] US OB BPP W NON-STRESS on 05-30-[address] [address] Ultrasound Report Signed Patient: CHARLENE PURVIS MR#: [id number] : 1990 Acct:[id number] Age/Sex: 34 / F ADM Date: 05/30/25 Loc: [facility] 250-[address]: Nolan Cortes D.O. Ordering Physician: Nolan Cortes D.O. Date of Service: 05/30/25 Procedure(s): US OB BPP w non-stress Accession Number(s): [id number] cc: Nolan Cortes D.O.; Physician,Non-Staff Nikky The [place] [address] Patient Name: CHARLENE PURVIS MRN: [facility]:[id number] date: 1990 Sex: F Assigned Patient Location: [facility] Current Patient Location: [facility] Accession/Order Number: [id number] Exam Date: 05/30/2025 15:40 Report Date: 05/30/2025 15:41 At the request of: NOLAN CORTES DO Procedure: US OB BPP w non-stress Biophysical profile. Reason for exam: Gestational diabetes COMPARISON: BPP 05/26/2025 TECHNIQUE: Transabdominal imaging of the gravid uterus was obtained. FINDINGS: The leaded glass installer reports a BPP of 8 out of 8. BHAVANI is normal at 11 cm. heart rate 138 bpm. US/US OB BPP w non-stress IMPRESSION: BPP 8 out of 8. Impression dictated by: Jacinto Rivas Jr., D.O. 05/30/2025 3:41 PM Dictation Location: [place] [address] Electronically authenticated by: [id number] Y Date: 05/30/2025 15:41 Dictated By: Jacinto Rivas M.D. Signed By: 05/30/25 1544 DD/ 1541 TD/TT: Bilingual Customer Service Specialist: [facility] Radiology, Radiologist, MD - 05/30/2025 [place] [address] Ultrasound Report Signed Patient: CHARLENE PURVIS MR#: [id number] : 1990 Acct:[id number] Age/Sex: 34 / F ADM Date: 05/30/25 Loc: [facility] 250-[address]: Nolan Cortes D.O. Ordering Physician: Nolan Cortes D.O. Date of Service: 05/30/25 Procedure(s): US OB BPP w non-stress Accession Number(s): [id number] cc: Nolan Cortes D.O.; Physician,Non-Staff [place] [id number] Patient Name: CHARLENE PURVIS MRN: [facility]:[id number] date: 1990 Sex: F Assigned Patient Location: [facility] Current Patient Location: [facility] Accession/Order Number: [id number] Exam Date: 05/30/2025 15:40 Report Date: 05/30/2025 15:41 At the request of: NOLAN CORTES DO Procedure: US OB BPP w non-stress Biophysical profile. Reason for exam: Gestational diabetes COMPARISON: BPP 05/26/2025 TECHNIQUE: Transabdominal imaging of the gravid uterus was obtained. FINDINGS: The leaded glass installer reports a BPP of 8 out of 8. BHAVANI is normal at 11 cm. heart rate 138 bpm. US/US OB BPP w non-stress IMPRESSION: BPP 8 out of 8. Impression dictated by: Jacinto Rivas Jr., D.O. 05/30/2025 3:41 PM Dictation Location: [place] [address] Electronically authenticated by: [id number] Y Date: 05/30/2025 15:41 Dictated By: Jacinto Rivas M.D. Signed By: 05/30/25 1544 DD/ 1541 TD/TT: Bilingual Customer Service Specialist: [facility] Radiology Study observation (narrative) [facility] US OB BPP W NON-STRESS Ordered By: Radiologist Radiology on 05-30-2025 [facility] Work Phone: US OB BPP W NON-STRESS on 05-26-2025 [place] [address] Ultrasound Report Signed Patient: CHARLENE PURVIS MR#: [id number] : 1990 Acct:[id number] Age/Sex: 34 / F ADM Date: 05/26/25 Loc: [facility] Attending Dr: Nolan Cortes D.O. Ordering Physician: Nolan Cortes D.O. Date of Service: 05/26/25 Procedure(s): US OB BPP w non-stress Accession Number(s): [id number] cc: Nolan Cortes D.O.; Physician,Non-Staff [place] [id number] Patient Name: CHARLENE PURVIS MRN: [facility]:[id number] date: 1990 Sex: F Assigned Patient Location: [facility] Current Patient Location: Accession/Order Number: [id number] Exam Date: 05/26/2025 16:46 Report Date: 05/26/2025 [...] Maxwell M.D. 05/26/2025 4:48 PM Dictation Location: [place] [address] Electronically authenticated by: [id number] Y Date: 05/26/2025 16:48 Dictated By: Marquis Maxwell M.D. Signed By: 05/26/25 165 DD/ 47 TD/TT: Bilingual Customer Service Specialist: [facility] Radiology, Radiologist, - 05/26/[address] [address] Ultrasound Report Signed Patient: CHARLENE PURVIS MR#: [id number] : 1990 Acct:[id number] Age/Sex: 34 / F ADM Date: 05/26/25 Loc: [facility] Attending Dr: Nolan Cortes D.O. Ordering Physician: Nolan Cortes D.O. Date of Service: 05/26/25 Procedure(s): US OB BPP w non-stress Accession Number(s): [id number] cc: Nolan Cortes D.O.; Physician,Non-Staff Nikky The [place] [phone] Patient Name: CHARLENE PURVIS MRN: [facility]:[id number] date: 1990 Sex: F Assigned Patient Location: [facility] Current Patient Location: Accession/Order Number: [id number] Exam Date: 05/26/2025 16:46 Report Date: 05/26/2025 [...] Maxwell M.D. 05/26/2025 4:48 PM Dictation Location: [place] [address] Electronically authenticated by: [id number] Y Date: 05/26/2025 16:48 Dictated By: Marquis Maxwell M.D. Signed By: 05/26/25 165 DD/ 1648 TD/TT: Bilingual Customer Service Specialist: [facility] Radiology Study observation (narrative) [facility] US OB BPP W NON-STRESS Ordered By: Radiologist Radiology on 05-26-2025 [facility] Work Phone: US OB GROWTHon 05-25-2025 [place] [address] Ultrasound Report Signed Patient: CHARLENE PURVIS MR#: [id number] : 1990 Acct:[id number] Age/Sex: 34 / F ADM Date: 05/16/25 Loc: US Attending Dr: Nolan Cortes D.O. Ordering Physician: Nolan Cortes D.O. Date of Service: 05/16/25 Procedure(s): US OB growth Accession Number(s): [id number] cc: Nolan Cortes D.O.; Physician,Non-Staff M.DMya The [place] [id number] Patient Name: CHARLENE PURVIS MRN: [facility]:[id number] date: 1990 Sex: F Assigned Patient Location: US Current Patient Location: Accession/Order Number: [id number] Exam Date: 05/25/2025 09:01 Report Date: 05/25/2025 [...] Peña M.D. 05/25/2025 9:12 AM Dictation Location: [place] [address] Electronically authenticated by: [id number] Y Date: 05/25/2025 09:12 Dictated By: Grace Peña M.D. Signed By: 05/25/25914 DD/ 1 TD/TT: Bilingual Customer Service Specialist: [facility] Radiology, Radiologist, MD - 05/25/2025 [place] [address] Ultrasound Report Signed Patient: CHARLENE PURVIS MR#: [id number] : 1990 Acct:[id number] Age/Sex: 34 / F ADM Date: 05/16/25 Loc: US Attending Dr: Nolan Cortes D.O. Ordering Physician: Nolan Cortes D.O. Date of Service: 05/16/25 Procedure(s): US OB growth Accession Number(s): [id number] cc: Nolan Cortes D.O.; Physician,Non-Staff Nikky The [place] [phone] Patient Name: CHARLENE PURVIS MRN: [facility]:[id number] date: 1990 Sex: F Assigned Patient Location: US Current Patient Location: Accession/Order Number: [id number] Exam Date: 05/25/2025 09:01 Report Date: 05/25/2025 [...] Peña M.D. 05/25/2025 9:12 AM Dictation Location: [place] [address] Electronically authenticated by: [id number] Y Date: 05/25/2025 09:12 Dictated By: Grace Peña M.D. Signed By: 05/25/25914 DD/ 1 TD/TT: Bilingual Customer Service Specialist: [facility] Radiology Study observation (narrative) [facility] US OB GROWTHOrdered By: Melanie ologarnol Radiology on 05-25-2025 [facility] Work Phone: US OB BPP W NON-STRESS on 05-24-2025 [place] [address] Ultrasound Report Signed Patient: CHARLENE PURVIS MR#: [id number] : 1990 Acct:[id number] Age/Sex: 34 / F ADM Date: 05/23/25 Loc: US Attending Dr: Nolan Cortes D.O. Ordering Physician: Nolan Cortes D.O. Date of Service: 05/23/25 Procedure(s): US OB BPP w non-stress Accession Number(s): [id number] cc: Nolan Cortes D.O.; Physician,Non-Staff MTomas The [place] [phone] Patient Name: CHARLENE PURVIS MRN: [facility]:[id number] date: 1990 Sex: F Assigned Patient Location: [facility] Current Patient Location: Accession/Order Number: [id number] Exam Date: 05/24/2025 06:57 Report Date: 05/24/2025 [...] Peña M.D. 05/24/2025 6:59 AM Dictation Location: [place] [address] Electronically authenticated by: [id number] Y Date: 05/24/2025 06:59 Dictated By: Grace Peña M.D. Signed By: 05/24/25 0702 DD/ 0659 TD/TT: Bilingual Customer Service Specialist: [facility] Radiology, Radiologist, MD - 05/24/2025 [place] [address] Ultrasound Report Signed Patient: CHARLENE PURVIS MR#: [id number] : 1990 Acct:[id number] Age/Sex: 34 / F ADM Date: 05/23/25 Loc: US Attending Dr: Nolan Cortes D.O. Ordering Physician: Nolan Cortes D.O. Date of Service: 05/23/25 Procedure(s): US OB BPP w non-stress Accession Number(s): [id number] cc: Nolan Cortes D.O.; Physician,Non-Staff [place] [id number] Patient Name: CHARLENE PURVIS MRN: [facility]:[id number] date: 1990 Sex: F Assigned Patient Location: [facility] Current Patient Location: Accession/Order Number: [id number] Exam Date: 05/24/2025 06:57 Report Date: 05/24/2025 [...] Peña M.D. 05/24/2025 6:59 AM Dictation Location: [place] [address] Electronically authenticated by: [id number] Y Date: 05/24/2025 06:59 Dictated By: Grace Peña M.D. Signed By: 05/24/2502 DD/ TD/TT: Bilingual Customer Service Specialist: [facility] Radiology Study observation (narrative) [facility] OB BPP W NON-STRESS Ordered By: Radiologist Radiology on 05-24-2025 [facility] Work Phone: Urinalysis macro (dipstick) panel (U)on 05-24-2025 Bilirubin, UA Trace Negative - 4(70) +++ mg/dL [facility] Blood, UA Negative Negative - 50 Eliceo/mcL [facility] Clarity, UA Clear [facility] Color, UA Yellow [facility] Glucose, UA Negative Negative - 1999(110) ++++ mg/dL [facility] Interpretation and review of laboratory results Abnormal [facility] Ketones, UA Negative Negative - 160(16) ++++ mg/dL [facility] Leukocytes, UA Negative Negative - 500+++ Danielle/mcL [facility] Nitrite, UA Negative Negative - Positive [facility] pH, UA 6 5 - 9 [facility] Protein, UA Trace Negative - 1999(20) ++++ mg/dL [facility] Spec Grav, UA 1.03 1 - 1.03 [facility] Urobilinogen, UA 1.0 0.2 - 12 mg/dL [facility] US OB BPP W NON-STRESS on 05-16-2025 [place] [address] Ultrasound Report Signed Patient: CHARLENE PURVIS MR#: [id number] : 1990 Acct:[id number] Age/Sex: 34 / F ADM Date: 05/16/25 Loc: US Attending Dr: Nolan Cortes D.O. Ordering Physician: Nolan Cortes D.O. Date of Service: 05/16/25 Procedure(s): US OB BPP w non-stress Accession Number(s): [id number] cc: Nolan Cortes D.O.; Physician,Non-Staff MTomas The [address] [address] Patient Name: CHARLENE PURVIS MRN: [facility]:[id number] date: 1990 Sex: F Assigned Patient Location: Current Patient Location: Accession/Order Number: [id number] Exam Date: 05/16/2025 22:56 Report Date: 05/16/2025 23:00 At the request of: NOLAN SEBASTIAN DO Procedure: US OB BPP w non-stress Ultrasound biophysical profile Indication for exam: Gestational diabetes COMPARISON: 05/09/2025 FINDINGS: Single live intrauterine gestation with score 8/8 heart rate of 184 beats per minutes BHAVANI 17.05 cm US/US OB BPP w non-stress IMPRESSION: BP biophysical profile 8 out of 8 Impression dictated by: Mehul Brewer M.D. 05/16/2025 11:00 PM Dictation Location: [place] [address] Electronically authenticated by: [id number] Y Date: 05/16/2025 23:00 Dictated By: Mehul Brewer M.D. Signed By: 05/16/252302 DD/ 99 TD/TT: Bilingual Customer Service Specialist: [facility] Radiology, Radiologist, MD - 05/16/2025 [place] [address] Ultrasound Report Signed Patient: CHARLENE PURVIS MR#: [id number] : 1990 Acct:[id number] Age/Sex: 34 / F ADM Date: 05/16/25 Loc: US Attending Dr: Nolan Cortes D.O. Ordering Physician: Nolan Cortes D.O. Date of Service: 05/16/25 Procedure(s): US OB BPP w non-stress Accession Number(s): [id number] cc: Nolan Cortes D.O.; Physician,Non-Staff Nikky The [place] [phone] Patient Name: CHARLENE PURVIS MRN: [facility]:[id number] date: 1990 Sex: F Assigned Patient Location: US Current Patient Location: Accession/Order Number: [id number] Exam Date: 05/16/2025 22:56 Report Date: 05/16/2025 [...] Brewer M.D. 05/16/2025 11:00 PM Dictation Location: [place] [address] Electronically authenticated by: [id number] Y Date: 05/16/2025 23:00 Dictated By: Mehul Brewer M.D. Signed By: 05/16/252302 DD/ 99 TD/TT: Bilingual Customer Service Specialist: [facility] Radiology Study observation (narrative) [facility] US OB BPP W NON-STRESS Ordered By: Radiologist Radiology on 05-16-2025 [facility] Work Phone: US OB BPP W NON-STRESS on 05-09-2025 [place] [address] Ultrasound Report Signed Patient: CHARLENE PURVIS MR#: [id number] : 1990 Acct:[id number] Age/Sex: 34 / F ADM Date: 05/09/25 Loc: [facility] [address]: Nolan Cortes D.O. Ordering Physician: Nolan Cortes D.O. Date of Service: 05/09/25 Procedure(s): US OB BPP w non-stress Accession Number(s): [id number] cc: Nolan Cortes D.O.; Physician,Non-Staff Nikky The [place] [address] Patient Name: CHARLENE PURVIS MRN: [facility]:[id number] date: 1990 Sex: F Assigned Patient Location: [facility] Current Patient Location: [facility] Accession/Order Number: [id number] Exam Date: 05/09/2025 15:50 Report Date: 05/09/2025 15:51 At the request of: NOLAN CORTES DO Procedure: US OB BPP w non-stress Biophysical profile. Reason for exam: Gestational diabetes. COMPARISON: BDP 05/02/2025. TECHNIQUE: Transabdominal imaging of the gravid uterus was obtained. FINDINGS: Mcat Instructor reports a BPP of 8 out of 8. BHAVANI is normal at 13.2 cm. heart rate 161 bpm. US/US OB BPP w non-stress Impression: BPP 8 out of 8. Impression dictated by: Jacinto Rivas Jr., D.O. 05/09/2025 3:51 PM Dictation Location: [place] [address] Electronically authenticated by: [id number] Y Date: 05/09/2025 15:51 Dictated By: Jacinto Rivas M.D. Signed By: 05/09/25 1554 DD/ 1551 TD/TT: Bilingual Customer Service Specialist: [facility] Radiology, Radiologist, MD - 05/09/2025 [place] [address] Ultrasound Report Signed Patient: CHARLENE PURVIS MR#: [id number] : 1990 Acct:[id number] Age/Sex: 34 / F ADM Date: 05/09/25 Loc: [facility] 250-[address]: Nolan Cortes D.O. Ordering Physician: Nolan Cortes D.O. Date of Service: 05/09/25 Procedure(s): US OB BPP w non-stress Accession Number(s): [id number] cc: Nolan Cortes D.O.; Physician,Non-Staff Nik[facility] The [place] [phone] Patient Name: CHARLENE PURVIS MRN: [facility]:[id number] date: 1990 Sex: F Assigned Patient Location: [facility] Current Patient Location: [facility] Accession/Order Number: [id number] Exam Date: 05/09/2025 15:50 Report Date: 05/09/2025 15:51 At the request of: NOLAN CORTES DO Procedure: US OB BPP w non-stress Biophysical profile. Reason for exam: Gestational diabetes. COMPARISON: BDP 05/02/2025. TECHNIQUE: Transabdominal imaging of the gravid uterus was obtained. FINDINGS: Mcat Instructor reports a BPP of 8 out of 8. BHAVANI is normal at 13.2 cm. heart rate 161 bpm. US/US OB BPP w non-stress Impression: BPP 8 out of 8. Impression dictated by: Jacinto Rivas Jr., D.O. 05/09/2025 3:51 PM Dictation Location: [place] [address] Electronically authenticated by: [id number] Y Date: 05/09/2025 15:51 Dictated By: Jacinto Rivas M.D. Signed By: 05/09/25 1554 DD/ 155 TD/TT: Bilingual Customer Service Specialist: [facility] Radiology Study observation (narrative) [facility] US OB BPP W NON-STRESS Ordered By: Radiologist Radiology on 05-09-2025 [facility] Work Phone: US OB BPP W NON-STRESS on 05-02-2025 [place] [address] Ultrasound Report Signed Patient: CHARLENE PURVIS MR#: [id number] : 1990 Acct:[id number] Age/Sex: 34 / F ADM Date: 05/02/25 Loc: US Attending Dr: Nolan Cortes D.O. Ordering Physician: Nolan Cortes D.O. Date of Service: 05/02/25 Procedure(s): US OB BPP w non-stress Accession Number(s): [id number] cc: Nolan Cortes D.O.; Physician,Non-Staff Nikky The [address] [address] Patient Name: CHARLENE PURVIS MRN: [facility]:[id number] date: 1990 Sex: F Assigned Patient Location: [facility] Current Patient Location: Accession/Order Number: [id number] Exam Date: 05/02/2025 16:28 Report Date: 05/02/2025 [...] Maxwell M.D. 05/02/2025 4:30 PM Dictation Location: [facility] Electronically authenticated by: [id number] Y Date: 05/02/2025 16:30 Dictated By: Marquis Maxwell M.D. Signed By: 05/02/25 1632 DD/ 163 TD/TT: Bilingual Customer Service Specialist: [facility] Radiology, Radiologist, MD - 05/02/2025 [place] [address] Ultrasound Report Signed Patient: CHARLENE PURVIS MR#: [id number] : 1990 Acct:[id number] Age/Sex: 34 / F ADM Date: 05/02/25 Loc: US Attending Dr: Nolan Cortes D.O. Ordering Physician: Nolan Cortes D.O. Date of Service: 05/02/25 Procedure(s): US OB BPP w non-stress Accession Number(s): [id number] cc: Nolan Cortes D.O.; Physician,Non-Staff Nikky The [address] [address] Patient Name: CHARLENE PURVIS MRN: [facility]:[id number] date: 1990 Sex: F Assigned Patient Location: [facility] Current Patient Location: Accession/Order Number: [id number] Exam Date: 05/02/2025 16:28 Report Date: 05/02/2025 [...] Maxwell M.D. 05/02/2025 4:30 PM Dictation Location: [place] [address] Electronically authenticated by: [id number] Y Date: 05/02/2025 16:30 Dictated By: Marquis Maxwell M.D. Signed By: 05/02/25 1632 DD/ 1630 TD/TT: Bilingual Customer Service Specialist: [facility] Radiology Study observation (narrative) [facility] US OB BPP W NON-STRESS Ordered By: Radiologist Radiology on 05-02-2025 [facility] Work Phone: Urinalysis macro (dipstick) panel (U)on 05-02-2025 Bilirubin, UA Negative Negative - 4(70) +++ mg/dL [facility] Blood, UA Negative Negative - 50 Eliceo/mcL [facility] Clarity, UA Clear [facility] Color, UA Yellow [facility] Glucose, UA Negative Negative - 1999(110) ++++ mg/dL [facility] Interpretation and review of laboratory results Abnormal [facility] Ketones, UA Positive Negative - 160(16) ++++ mg/dL [facility] Comment on above: 160 Leukocytes, UA Positive Negative - 500+++ Danielle/mcL [facility] Comment on above: small Nitrite, UA Negative Negative - Positive [facility] pH, UA 6.5 5 - 9 [facility] Protein, UA Positive Negative - 1999(20) ++++ mg/dL [facility] Comment on above: 30 Spec Grav, UA 1.02 1 - 1.03 [facility] Urobilinogen, UA 0.2 0.2 - 12 mg/dL [facility] US OB BPP W NON-STRESS on 04-25-2025 [place] [address] Ultrasound Report Signed Patient: CHARLENE PURVIS MR#: [id number] : 1990 Acct:[id number] Age/Sex: 34 / F ADM Date: 04/25/25 Loc: US Attending Dr: Nolan Cortes D.O. Ordering Physician: Nolan Cortes D.O. Date of Service: 04/25/25 Procedure(s): US OB BPP w non-stress Accession Number(s): [id number] cc: Nolan Cortes D.O.; Physician,Non-Staff Nikky The [place] [address] Patient Name: CHARLENE PURVIS MRN: [facility]:[id number] date: 1990 Sex: F Assigned Patient Location: [facility] Current Patient Location: Accession/Order Number: [id number] Exam Date: 04/25/2025 21:35 Report Date: 04/25/2025 [...] Olvera M.D. 04/25/2025 9:36 PM Dictation Location: [place] [address] Electronically authenticated by: [id number] Y Date: 04/25/2025 21:36 Dictated By: Harlan Olvera D.O. Signed By: 04/25/252137 DD/ 35 TD/TT: Bilingual Customer Service Specialist: [facility] Radiology, Radiologist, - 04/25/2025 [place] [address] Ultrasound Report Signed Patient: CHARLENE PURVIS MR#: [id number] : 1990 Acct:[id number] Age/Sex: 34 / F ADM Date: 04/25/25 Loc: US Attending Dr: Nolan Cortes D.O. Ordering Physician: Nolan Cortes D.O. Date of Service: 04/25/25 Procedure(s): US OB BPP w non-stress Accession Number(s): [id number] cc: Nolan Cortes D.O.; Physician,Non-Staff Nikky The [place] [address] Patient Name: CHARLENE PURVIS MRN: [facility]:[id number] date: 1990 Sex: F Assigned Patient Location: [facility] Current Patient Location: Accession/Order Number: [id number] Exam Date: 04/25/2025 21:35 Report Date: 04/25/2025 [...] Olvera M.D. 04/25/2025 9:36 PM Dictation Location: [employer] Electronically authenticated by: [id number] Y Date: 04/25/2025 21:36 Dictated By: Harlan Olvera D.O. Signed By: 04/25/252137 DD/ 35 TD/TT: Bilingual Customer Service Specialist: [facility] Radiology Study observation (narrative) [facility] US OB BPP W NON-STRESS Ordered By: Radiologist Radiology on 04-25-2025 [facility] Work Phone: US OB BPP W NON-STRESS on 04-18-2025 The [place] [id number] Ultrasound Report Signed Patient: CHARLENE PURVIS MR#: [id number] : 1990 Acct:[id number] Age/Sex: 34 / F ADM Date: 04/18/25 Loc: US Attending Dr: Nolan Cortes D.O. Ordering Physician: Nolan Cortes D.O. Date of Service: 04/18/25 Procedure(s): US OB BPP w non-stress Accession Number(s): [id number] cc: Nolan Cortes D.O.; Physician,Non-Staff Nikky The [address] [address] Patient Name: CHARLENE PURVIS MRN: [facility]:[id number] date: 1990 Sex: F Assigned Patient Location: [facility] Current Patient Location: Accession/Order Number: [id number] Exam Date: 04/18/2025 16:06 Report Date: 04/18/2025 [...] Olvera M.D. 04/18/2025 4:07 PM Dictation Location: [place] [address] Electronically authenticated by: [id number] Y Date: 04/18/2025 16:07 Dictated By: Harlan Olvera D.O. Signed By: 04/18/25 1609 DD/ 1607 TD/TT: Bilingual Customer Service Specialist: [facility] Radiology, Radiologist, MD - 04/18/[address] [address] Ultrasound Report Signed Patient: CHARLENE PURVIS MR#: [id number] : 1990 Acct:[id number] Age/Sex: 34 / F ADM Date: 04/18/25 Loc: US Attending Dr: Nolan Cortes D.O. Ordering Physician: Nolan Cortes D.O. Date of Service: 04/18/25 Procedure(s): US OB BPP w non-stress Accession Number(s): [id number] cc: Nolan Cortes D.O.; Physician,Non-Staff Nikky The [place] [address] Patient Name: CHARLENE PURVIS MRN: [facility]:[id number] date: 1990 Sex: F Assigned Patient Location: [facility] Current Patient Location: Accession/Order Number: [id number] Exam Date: 04/18/2025 16:06 Report Date: 04/18/2025 [...] Olvera M.D. 04/18/2025 4:07 PM Dictation Location: [place] [address] Electronically authenticated by: [id number] Y Date: 04/18/2025 16:07 Dictated By: Harlan Olvera D.O. Signed By: 04/18/25 1609 DD/ 1607 TD/TT: Bilingual Customer Service Specialist: [facility] Study observation (narrative) [facility] US OB BPP W NON-STRESS Ordered By: Radiologist Radiology on 04-18-2025 [facility] Work Phone: Urinalysis macro (dipstick) panel (U)on 04-18-2025 Bilirubin, UA Negative Negative - 4(70) +++ mg/dL [facility] Blood, UA Negative Negative - 50 Eliceo/mcL [facility] Clarity, UA Clear [facility] Color, UA Light Yellow [facility] Glucose, UA Positive Negative - 2000(110) ++++ mg/dL [facility] Comment on above: 250 Interpretation and review of laboratory results Abnormal [facility] Ketones, UA Positive Negative - 160(16) ++++ mg/dL [facility] Comment on above: 15 Leukocytes, UA Positive Negative - 500+++ Danielle/mcL [facility] Comment on above: small Nitrite, UA Negative Negative - Positive [facility] pH, UA 6 5 - 9 [facility] Protein, UA Negative Negative - 2000(20) ++++ mg/dL [facility] Spec Grav, UA 1.005 1 - 1.03 [facility] Urobilinogen, UA 0.2 0.2 - 12 mg/dL [facility] US OB BPP W NON-STRESS on 04-11-2025 [place] [address] Ultrasound Report Signed Patient: CHARLENE PURVIS MR#: [id number] : 1990 Acct:[id number] Age/Sex: 34 / F ADM Date: 04/11/25 Loc: US Attending Dr: Nolan Cortes D.O. Ordering Physician: Nolan Cortes D.O. Date of Service: 04/11/25 Procedure(s): US OB BPP w non-stress Accession Number(s): [id number] cc: Nolan Cortes D.O.; Physician,Non-Staff M.Daisy [address] [address] Patient Name: CHARLENE PURVIS MRN: [facility]:[id number] date: 1990 Sex: F Assigned Patient Location: [facility] Current Patient Location: Accession/Order Number: [id number] Exam Date: 04/11/2025 16:04 Report Date: 04/11/2025 [...] Olvera M.D. 04/11/2025 4:05 PM Dictation Location: Link To Media Electronically authenticated by: [id number] Y Date: 04/11/2025 16:05 Dictated By: Harlan Olvera D.O. Signed By: 04/11/25 1607 DD/ 04 TD/TT: Bilingual Customer Service Specialist: [facility] Radiology, Radiologist, MD - 04/11/2025 [place] [address] Ultrasound Report Signed Patient: CHARLENE PURVIS MR#: [id number] : 1990 Acct:[id number] Age/Sex: 34 / F ADM Date: 04/11/25 Loc: US Attending Dr: Nolan Cortes D.O. Ordering Physician: Nolan Cortes D.O. Date of Service: 04/11/25 Procedure(s): US OB BPP w non-stress Accession Number(s): [id number] cc: Nolan Cortes D.O.; Physician,Non-Staff Nikky [address] [place] [id number] Patient Name: CHARLENE PURVIS MRN: [facility]:[id number] date: 1990 Sex: F Assigned Patient Location: [facility] Current Patient Location: Accession/Order Number: [id number] Exam Date: 04/11/2025 16:04 Report Date: 04/11/2025 [...] Olvera M.D. 04/11/2025 4:05 PM Dictation Location: [place] [address] Electronically authenticated by: [id number] Y Date: 04/11/2025 16:05 Dictated By: Harlan Olvera D.O. Signed By: 04/11/251606 DD/ 04 TD/TT: Bilingual Customer Service Specialist: [facility] Radiology Study observation (narrative) [facility] US OB BPP W NON-STRESS Ordered By: Radiologist Radiology on 04-11-2025 [facility] Work Phone: Urinalysis macro (dipstick) panel (U)on 04-05-2025 Bilirubin, UA Negative Negative - 4(70) +++ mg/dL [facility] Blood, UA Negative Negative - 50 Eliceo/mcL [facility] Clarity, UA Clear [facility] Color, UA Yellow [facility] Glucose, UA Positive Negative - 2000(110) ++++ mg/dL [facility] Comment on above: 100mg/dL Interpretation and review of laboratory results Abnormal [facility] Ketones, UA Positive Negative - 160(16) ++++ mg/dL [facility] Comment on above: Trace Leukocytes, UA Positive Negative - 500+++ Danielle/mcL [facility] Comment on above: small Nitrite, UA Negative Negative - Positive [facility] pH, UA 6 5 - 9 [facility] Protein, UA Trace Negative - 2000(20) ++++ mg/dL [facility] Spec Grav, UA 1.025 1 - 1.03 [facility] Urobilinogen, UA 0.2 0.2 - 12 mg/dL [facility] POCT Hemoglobin A1con 2024 HbA1c (Bld) [Mass fraction] 5.8 % 4 - 7 % [facility] US OB INCOMPLETE ANATOMYon 0 03-07-[address] [address] Ultrasound Report Signed Patient: CHARLENE PURVIS MR#: [id number] : 1990 Acct:[id number] Age/Sex: 34 / F ADM Date: 03/05/25 Loc: US Attending Dr: Nolan Cortes D.O. Ordering Physician: Nolan Cortes D.O. Date of Service: 03/05/25 Procedure(s): US OB incomplete anatomy Accession Number(s): [id number] cc: Nolan Cortes D.O.; Physician,Non-Staff Nikky [address] [place] [address] Patient Name: CHARLENE PURVIS MRN: [facility]:[id number] date: 1990 Sex: F Assigned Patient Location: US Current Patient Location: Accession/Order Number: [id number] Exam Date: 03/07/2025 12:39 Report Date: 03/07/2025 [...] Jr., D.O. 03/07/2025 12:42 PM Dictation Location: [place] [address] Electronically authenticated by: [id number] Y Date: 03/07/2025 12:42 Dictated By: Jacinto Rivas M.D. Signed By: 03/07/25 1244 DD/ 1242 TD/TT: Bilingual Customer Service Specialist: [facility] Radiology, Radiologist, - 03/07/2025 [place] [address] Ultrasound Report Signed Patient: CHARLENE PURVIS MR#: [id number] : 1990 Acct:[id number] Age/Sex: 34 / F ADM Date: 03/05/25 Loc: US Attending Dr: Nolan Cortes D.O. Ordering Physician: Nolan Cortes D.O. Date of Service: 03/05/25 Procedure(s): US OB incomplete anatomy Accession Number(s): [id number] cc: Nolan Cortes D.O.; Physician,Non-Staff [place] [address] Patient Name: CHARLENE PURVIS MRN: [id number] date: 1990 Sex: F Assigned Patient Location: US Current Patient Location: Accession/Order Number: [id number] Exam Date: 03/07/2025 12:39 Report Date: 03/07/2025 [...] Jr., D.O. 03/07/2025 12:42 PM Dictation Location: [place] [address] Electronically authenticated by: [id number] Y Date: 03/07/2025 12:42 Dictated By: Jacinto Rivas M.D. Signed By: 03/07/25 1244 DD/ 1242 TD/TT: Bilingual Customer Service Specialist: [facility] Radiology Study observation (narrative) [facility] OB INCOMPLETE ANATOMYOrde red By: Radiologist Radiology on 03-07-2025 [facility] Work Phone: Urinalysis macro (dipstick) panel (U)on 02-21-2025 Bilirubin, UA Negative Negative - 4(70) +++ mg/dL [facility] Blood, UA Negative Negative - 50 Eliceo/mcL [facility] Clarity, UA Clear [facility] Color, UA Yellow [facility] Glucose, UA Negative Negative - 2000(110) ++++ mg/dL [facility] Interpretation and review of laboratory results Abnormal [facility] Ketones, UA Positive Negative - 160(16) ++++ mg/dL [facility] Comment on above: 40mg/dL Leukocytes, UA Positive Negative - 500+++ Danielle/mcL [facility] Comment on above: small Nitrite, UA Negative Negative - Positive [facility] pH, UA 6 5 - 9 [facility] Protein, UA Positive Negative - 2000(20) ++++ mg/dL [facility] Comment on above: 30mg/dL Spec Grav, UA 1.02 1 - 1.03 [facility] Urobilinogen, UA 0.2 0.2 - 12 mg/dL [facility] Glucose random or fasting- P OCTon 02-16-2025 External Glucose Fasting Or Random (Fbs) 110 [facility] US OB 14+ WEEKS ANATOMY SCAN on [...] II, MD, PHD at 15-Feb-2025 11:25:23 PM [facility] Normal Not Available Comment on above: Order Comment: US OB ANATOMY SINGLE W US OB CERVICAL LENGTH Estimated Date of Delivery: 06/24/25 Gestational Age as of 12/06/2024: 11w3d AFP, SERUM, OPEN SPINA BIFID Aon 02-09-2025 AFP MOM 0.84 . [facility] AFP VALUE 34.5 ng/mL . [facility] COMMENT: Comment . [facility] Comment on above: Tiffany Shah , Ph.D., [facility] Director References: Available Upon Request. Multiples Of Median Cutoffs For AFP Elevations Steiner 2.5 Black 2.8 IDD 2.0 Twins 4.5 Abbreviation Definitions IDD - Insulin Dep Diabetes OSBR - Open Spina Bifida Risk For further inquiries contact [employer] [facility] at [phone]. This test was developed and its performance characteristics determined by [facility]. It has not been cleared or approved by the Food and Drug Administration. Performed at: [facility] [address] [facility], [place], [place] [id number] Ballast Regulator Operator: Rogelio Rice [facility], Phone: [phone] GEST. AGE ON COLLECTION DATE 20.4 . weeks [facility] GESTAT. AGE BASED ON LMP . [facility] Comment on above: Recalculations are n ot recommended when gestational dating by LMP and ultrasound are within 10 days. INSULIN DEP DIABETES No . [facility] INTERPRETATION Comment . [facility] Comment on above: Interpretation: [...] Customer Services to discuss available options. [employer] recommends amniocentesis be offered to women age 35 and older. [age] [facility] MULTIPLE GESTATION No . [facility] OSBR R[place]K [address] [place] [id number] . [facility] RACE . [facility] RESULTS Report . [facility] TEST RESULTS: Negative . [facility] WEIGHT 289 . lbs [facility] N N LMP [id number] 3 18 N 1 Y 289 N N N N N White/ [facility] Chlamydia/GC by PCR Holley Sw abon 01-24-2025 Gonorrhoeae Dna(Pcr) Not detected Pr [facility] Chlamydia/GC by PCR ThinPrep fluidon 01-24-2025 Chlamydia Dna(Pcr) Not detected [facility] No Panel Informationon 01-24 [facility] ALL CBC WITH AUTO DIFFon BASOPHILS ABSOLUTE AUTO 0 [facility] Basophils/100 WBC (Bld) 0.3 % 0.2 - 2.0 % [facility] Eosinophils/100 WBC (Bld) 3.7 % 0.9 - 7.0 % [facility] Erythrocyte distribution width (RBC) [Ratio] 13.1 % 11.0 - 15.0 % [facility] IMMATURE GRANULOCYTES ABS AUTO 0.04 High [facility] Immature granulocytes/100 WBC (Bld) 0.4 % 0.0 - 0.5 % [facility] Interpretation and review of laboratory results Abnormal [facility] LYMPHOCYTES ABSOLUTE AUTO 2 [facility] Lymphocytes/100 WBC (Bld) 21.3 % 20.5 - 60.0 % [facility] MCH (RBC) [Entitic mass] 32.6 pg 26.7 - 34.0 pg [facility] MCHC (RBC) [Mass/Vol] 34.8 g/dL 29.9 - 35.2 g/dL [facility] MCV (RBC) [Entitic vol] 93.6 fL 81.0 - 99.0 fL [facility] MONOCYTES ABSOLUTE AUTO 0.5 [facility] Monocytes/100 WBC (Bld) 5.1 % 1.7 - 12.0 % [facility] NEUTROPHILS ABSOLUTE AUTO 6.4 [facility] Neutrophils/100 WBC (Bld) 69.2 % 43.0 - 75.0 % [facility] Platelet mean volume (Bld) [Entitic vol] 10.6 fL 9.5 - 13.5 fL [facility] TBH EO # 0.3 [facility] PLT 139 Low [facility] RBC 4.36 [facility] WBC 9.2 [facility] CBC without diffon Platelets (Bld) [#/Vol] 139 10*3/uL [facility] Glucose tolerance, 1 houron 01-08-2025 Glucose Tolerance Test 1 Hour 168 [facility] Laboratory - Hematology and Cell countson 01-08-2025 Hematocrit (Bld) [Volume fraction] 40.8 % [facility] Hemoglobin (Bld) [Mass/Vol] 14.2 g/dL [facility] No Panel Informationon 01-08 [facility] Urinalysis macro (dipstick) panel (U)on 12-28-2024 Bilirubin, UA Negative Negative - 4(70) +++ mg/dL [facility] Blood, UA Negative Negative - 50 Eliceo/mcL [facility] Clarity, UA Clear [facility] Color, UA Yellow [facility] Glucose, UA Positive Negative - 1999(110) ++++ mg/dL [facility] Comment on above: 250mg/dL Interpretation and review of laboratory results Abnormal [facility] Ketones, UA Negative Negative - 160(16) ++++ mg/dL [facility] Leukocytes, UA Trace Negative - 500+++ Danielle/mcL [facility] Nitrite, UA Negative Negative - Positive [facility] pH, UA 6 5 - 9 [facility] Protein, UA Positive Negative - 1999(20) ++++ mg/dL [facility] Comment on above: 30mg/dL Spec Grav, UA 1.03 1 - 1.03 [facility] Urobilinogen, UA 0.2 0.2 - 12 mg/dL [facility] ALL CBC WITH AUTO DIFFon BASOPHILS ABSOLUTE AUTO 0 [facility] Basophils/100 WBC (Bld) 0.3 % 0.2 - 2.0 % [facility] Eosinophils/100 WBC (Bld) 4.4 % 0.9 - 7.0 % [facility] Erythrocyte distribution width (RBC) [Ratio] 12 % 11.0 - 15.0 % [facility] IMMATURE GRANULOCYTES ABS AUTO 0.03 [facility] Immature granulocytes/100 WBC (Bld) 0.3 % 0.0 - 0.5 % [facility] LYMPHOCYTES ABSOLUTE AUTO 2.1 [facility] Lymphocytes/100 WBC (Bld) 24.6 % 20.5 - 60.0 % [facility] MCH (RBC) [Entitic mass] 31.7 pg 26.7 - 34.0 pg [facility] MCHC (RBC) [Mass/Vol] 34.4 g/dL 29.9 - 35.2 g/dL [facility] MCV (RBC) [Entitic vol] 92.1 fL 81.0 - 99.0 fL [facility] MONOCYTES ABSOLUTE AUTO 0.6 [facility] Monocytes/100 WBC (Bld) 6.9 % 1.7 - 12.0 % [facility] NEUTROPHILS ABSOLUTE AUTO 5.5 [facility] Neutrophils/100 WBC (Bld) 63.5 % 43.0 - 75.0 % [facility] Platelet mean volume (Bld) [Entitic vol] 9.9 fL 9.5 - 13.5 fL [facility] TBH EO # 0.4 [facility] TBH PLT 209 [facility] RBC 4.8 [facility] TB WBC 8.7 [facility] CBC without diffon 5 Platelets (Bld) [#/Vol] 209 10*3/uL [facility] Drug Screen, Urineon 025 Amphetamine/Methamph etamine Negative [facility] Barbiturates Negative [facility] Benzodiazepines Negative [facility] Cocaine Metabolite Negative [facility] Methadone Negative [facility] Opiates Negative [facility] Oxycodone Negative [facility] Phencyclidine Negative [facility] Thc Marijuana, Urine Negative [facility] Free Cell DNAon 2024 Free Cell Dna LOW RISK [facility] HIV 1&2 AB/AG Screen (P24 AG )on 11-27-2024 HIV 1&2 AB/AG Non-Reactive [facility] Hemoglobin A1con 11-27-2024 HbA1c (Bld) [Mass fraction] 5.5 % 4.0 - 6.0 % [facility] Comment on above: AVERAGE GLUCOSE 111 Hepatitis B surface antigeno n 11-27-2024 Hepatitis B Surface Antigen Negative [facility] Laboratory - Hematology and Cell countson 11-27-2024 Hematocrit (Bld) [Volume fraction] 44.2 % [facility] Hemoglobin (Bld) [Mass/Vol] 15.2 g/dL [facility] No Panel Informationon 11-27 [facility] Rubella IGG immune statuson 11-27-2024 Rubella immune IgG 1.4 [facility] Syphilis Total(Unknown Syphi lis Status)on 11-27-2024 Syphilis Non-Reactive [facility] Type and screenon 11-27-2024 Abo/Rh(D) Negative [facility] GTT 3 HR PREGon 03-29-2023 Glucose [Mass/Vol] 107 mg/dL Critically high 74-106 T [facility] Comment on above: Performed By: #### G TT3P #### [facility] [address] [place] [address] [address] Loyd Coppola Glucose [Mass/Vol] 203 mg/dL Normal [facility] Comment on above: Performed By: #### G TT3P #### [facility] [address] [place] [address] [address] Loyd Coppola Glucose [Mass/Vol] 191 mg/dL Normal [facility] Comment on above: Performed By: #### G TT3P #### [facility] [address] [place] [address] [address] Loyd Coppola Glucose [Mass/Vol] 121 mg/dL Normal [facility] Comment on above: Performed By: #### G TT3P #### [facility] [address] [place] [address] [address] Loyd Coppola AFP MATERNAL FOR SPINA BIFID Aon 03-23-2023 AFP MoM 0.70 Normal [facility] Comment on above: Performed By: #### Suzi ZAVALETA UMICRO #### [facility] [address] [place] [address] [address] Loyd Coppola AFP Value 18.1 ng/mL Normal [facility] Comment on above: Performed By: #### Suzi ZAVALETA UMICRO #### [facility] [address] [place] [address] [address] Loyd Coppola AFP, Serum for Spina Bifida Report Normal [facility] Comment on above: Performed By: #### Suzi ZAVALETA UMICRO #### [facility] [address] [place] [address] [address] Loyd Coppola Comment Comment Normal [facility] Comment on above: Result Comment: Eboni Shah, Ph.D., [facility] Director . References: Available Upon Request. . Multiples Of Median Cutoffs For AFP Elevations Steiner 2.5 Black 2.8 IDD 2.0 Twins 4.5 Abbreviation Definitions IDD - Insulin Dep Diabetes OSBR - Open Spina Bifida Risk . For further inquiries contact [employer] [facility] at [phone]. . This test was developed and its performance characteristics determined by [facility]. It has not been cleared or approved by the Food and Drug Administration. Performed By: #### Suzi ZAVALETA UMICRO #### [facility] [address] [place] [address] [address] Loyd Kohli Age Collection Date 16.4 weeks Normal [facility] Comment on above: Performed By: #### Suzi ZAVALETA UMICRO #### [facility] [address] [place] [address] [address] Loyd Coppola Gestat, Age Based on As provided Normal [facility] Comment on above: Result Comment: Reca lculations are not recommended when gestational dating by LMP and ultrasound are within 10 days. Performed By: #### Suzi ZAVALETA UMICRO #### [facility] [address] [place] [address] Dr. Loyd Coppola Insulin Dep Diabetes No Normal [facility] Comment on above: Performed By: #### Suzi ZAVALETA UMICRO #### [facility] [address] [place] [address] Dr. Loyd Coppola Interpretation Comment Normal [facility] Comment on above: Result Comment: Inte [...] Customer Services to discuss available options. [employer] recommends amniocentesis be offered to women age 35 and older. Performed By: #### Suzi ZAVALETA UMICRO #### [facility] [address] [place] [address] Dr. Loyd Coppola [age] Normal [facility] Comment on above: Performed By: #### Suzi ZAVALETA UMICRO #### [facility] [address] [place] [address] Dr. Loyd Coppola Multiple Gestation No Normal [facility] Comment on above: Performed By: #### E MEGHANN UMICRO #### [facility] [address] [place] [address] Dr. L[place] [address] Normal [facility] Comment on above: Performed By: #### Suzi ZAVALETA UMICRO #### [facility] [address] [place] [address] Dr. Loyd Coppola PDF . Normal [facility] Comment on above: Performed By: #### E MEGHANN UMICRO #### [facility] [address] [place] [address] Dr. Loyd Coppola Race Normal [facility] Comment on above: Performed By: #### Szui ZAVALETA UMICRO #### [facility] [address] [place] [address] Dr. Loyd Coppola Test Results: Negative Normal [facility] Comment on above: Performed By: #### Suzi ZAVALETA UMJUAN FRANCISCORO #### [facility] [address] [place] [address] [address] Loyd Coppola GLUCOSE - 1HRon 03-21-2023 Glucose [Mass/Vol] 165 mg/dL Critically high 74-106 T he [facility] Comment on above: Performed By: #### G LU1HR #### [facility] [address] [place] [address] [address] Loyd Coppola PAP ACOG PANEL 2: 30 to 65on 02-19-2023 . . Normal [facility] Comment on above: Result Comment: Perf ormed at: WB Performed By: #### JUSTIN CHAVARRIARO #### [facility] [address] [place] [address] Dr. Loyd Coppola Age Gdln ACOG Testing 30-65 Normal [facility] Comment on above: Performed By: #### JUSTIN CHAVARRIARO #### [facility] [address] [place] [address] Dr. Loyd Coppola DIAGNOSIS: Comment Normal [facility] Comment on above: Result Comment: NEGA TIVE FOR INTRAEPITHELIAL LESION OR MALIGNANCY. Performed at: WB Performed By: #### JUSTIN CHAVARRIARO #### [facility] [address] [place] [address] Dr. oLyd Coppola HPV Aptima Negative Normal Negative [facility] Comment on above: Result Comment: This nucleic acid amplification test detects fourteen high-risk HPV types (16,18,31,33,35,39,45,51,52,56,58,59,66,68) without differentiation. Performed at: =G Performed By: #### Suzi ZAVALETA UMICRO #### [facility] [address] [place] [address] Dr. Loyd Coppola HPV Genotype Reflex Comment Normal [facility] Comment on above: Result Comment: Crit eria not met, HPV Genotype not performed. Performed at: WB Performed By: #### Suzi ZAVALETA UMICRO #### [facility] [address] [place] [address] Dr. Loyd Coppola Methodology: Comment Normal [facility] Comment on above: Result Comment: This liquid based ThinPrep(R) pap test was screened with the use of an image guided system. Performed at: WB Performed By: #### E MEGHANN, UMICRO #### [facility] [address] [place] [address] [address] Loyd Coppola Note: Comment Normal [facility] Comment on above: Result Comment: The Pap [...] Performed By: #### E MEGHANN, UMICRO #### [facility] [address] [place] [address] Dr. Loyd Coppola Performed by: Comment Normal [facility] Comment on above: Result Comment: Lidya Kirkpatrick, Consumer Loan Processor (ASCP) Performed at: WB Performed By: #### E MEGHANN, UMICRO #### [facility] [address] [place] [address] [address] Loyd Coppola Specimen adequacy: Comment Normal [facility] Comment on above: Result Comment: Sati sfactory for evaluation. No endocervical component is identified. Performed at: WB Performed By: #### E MEGHANN, UMICRO #### [facility] [address] [place] [address] Dr. Loyd Coppola US PREG CERVICAL LENGTHon [...] YOMAIRA GONZALEZ Date: 2023-02-18 15:51 Normal [facility] CHLAMYDIA/GONOCOCCUS ANTONELLA (SW AB/URINE/PAPon 02-15-2023 Chlamydia trachomatis, ANTONELLA Negative Normal Negative [facility] Comment on above: Performed By: #### C T/NGNA #### [facility] [address] [place] [address] Dr. Loyd Coppola Neisseria gonorrhoeae, ANTONELLA Negative Normal Negative [facility] Comment on above: Performed By: #### C T/NGNA #### [facility] [address] [place] [address] Dr. Loyd Coppola VAGINITIS/VAGINOSIS DNA PROB Vineet 02-15-2023 Leigha species Negative Normal Negative [facility] Comment on above: Performed By: #### C BC #### [facility] [address] [place] [address] Dr. Loyd Coppola Gardnerella vaginalis Negative Normal Negative [facility] Comment on above: Performed By: #### C BC #### [facility] [address] [place] [address] Dr. Loyd Coppola Trichomonas vaginalis Negative Normal Negative [facility] Comment on above: Performed By: #### C BC #### [facility] [address] [place] [address] Dr. Loyd Coppola HEP B SURFACE ANTIGEN SCREEN on 02-01-2023 HBsAg Screen Negative Normal Negative [facility] Comment on above: Performed By: #### H BSANS #### [facility] [address] [place] [address] Dr. Loyd Coppola HEPATITIS C VIRUS AB W/ REFL EX QUANTon 02-01-2023 HCV AB Non-Reactive Normal Non Reactive [facility] Comment on above: Performed By: #### C BC #### [facility] [address] [place] [address] Dr. Loyd Coppola Interpretation: Comment Normal [facility] Comment on above: Result Comment: Not infected with HCV unless early or acute infection is suspected (which may be delayed in an immunocompromised individual), or other evidence exists to indicate HCV infection. Performed By: #### C BC #### [facility] [address] [place] [address] Dr. Loyd Coppola HIV 1 AND 2 WITH REFLEXon HIV Screen 4th Generation wRfx Non-Reactive Normal Non Reactive [facility] Comment on above: Result Comment: HIV Negative HIV-1/HIV-2 antibodies and HIV-1 p24 antigen were NOT detected. There is no laboratory evidence of HIV infection. Performed By: #### C BC #### [facility] [address] [place] [address] Dr. Loyd Coppola RPR QUANTon 02-01-2023 Rapid Plasma Reagin, Quant Non-Reactive Normal NonRea<1:1 [facility] Comment on above: Result Comment: Plea se Note: This test does not meet current guidelines for screening and diagnosis of syphilis. This test is intended for following treatment response in patients being treated for syphilis infection. To screen for syphilis infection, a reflex cascade that includes both RPR and a treponema-specific assay should be utilized, such as Treponema pallidum (Syphilis) Screening [place] (478515) or Rapid Plasma Reagin (RPR) Test With Reflex to Quantitative RPR and Confirmatory Treponema pallidum Antibodies (340272). Performed By: #### JESUS CHAVARRIA #### [facility] [address] [place] [address] Dr. Loyd Coppola RUBELLA AB IGGon 02-01-2023 Rubella Antibodies, IgG 1.08 index Normal Immune >0.99 [facility] Comment on above: Result Comment: Non- immune <0.90 Equivocal 0.90 - 0.99 Immune >0.99 Performed By: #### C BC #### [facility] [address] [place] [address] Dr. Loyd Coppola BOX TEST SENT OUTon 02-01-20 23 SENT TO REF LAB 01/31/23 Normal [facility] Comment on above: Performed By: #### JESUS CHAVARRIA #### [facility] [address] [place] [address] Dr. Loyd Coppola CBC AUTO DIFFon 01-31-2023 BASO # 0.0 103/ul Normal 0.0-0.1 [facility] Comment on above: Performed By: #### C BC #### [facility] [address] [place] [address] Dr. Loyd Coppola Basophils/100 WBC (Bld) 0.2 % Normal 0.2-2.0 [facility] Comment on above: Performed By: #### C BC #### [facility] [address] [place] [address] Dr. Loyd Coppola EO # 0.1 103/ul Normal 0.0-0.7 [facility] Comment on above: Performed By: #### C BC #### [facility] [address] [place] [address] Dr. Loyd Coppola Eosinophils/100 WBC (Bld) 1.5 % Normal 0.9-7.0 [facility] Comment on above: Performed By: #### C BC #### [facility] [address] [place] [address] Dr. Loyd Coppola Erythrocyte distribution width (RBC) [Ratio] 12.3 % Normal 11.0-15.0 [facility] Comment on above: Performed By: #### C BC #### [facility] [address] [place] [address] Dr. Loyd Coppola Hematocrit (Bld) [Volume fraction] 39.3 % Normal 36.0-48.0 [facility] Comment on above: Performed By: #### C BC #### [facility] [address] [place] [address] Dr. Loyd Coppola Hemoglobin (Bld) [Mass/Vol] 14.3 g/dL Normal 12.0-16.0 [facility] Comment on above: Performed By: #### C BC #### [facility] [address] [place] [address] Dr. Loyd Coppola IG # 0.03 10e3/ul Normal 0.00-0.03 [facility] Comment on above: Performed By: #### C BC #### [facility] [address] [place] [address] Dr. Loyd Coppola IG % 0.3 % Normal 0.0-0.5 [facility] Comment on above: Performed By: #### C BC #### [facility] [address] [address] [address] Loyd Coppola LYMPH # 2.3 103/ul Normal 1.2-3.8 [facility] Comment on above: Performed By: #### C BC #### [facility] [address] [address] [address] Loyd Coppola Lymphocytes/100 WBC (Bld) 24.8 % Normal 20.5-60.0 [facility] Comment on above: Performed By: #### C BC #### [facility] [address] [address] [address] Loyd Coppola MANUAL DIFF REQ NO Normal [facility] Comment on above: Performed By: #### C BC #### [facility] [address] [place] [address] Dr. Loyd Coppola MCH (RBC) [Entitic mass] 32.6 pg Normal 26.7-34.0 [facility] Comment on above: Performed By: #### C BC #### [facility] [address] [place] [address] Dr. Loyd Coppola MCHC (RBC) [Mass/Vol] 36.4 g/dL Critically high 29.9-35.2 [facility] Comment on above: Performed By: #### C BC #### [facility] [address] [place] [address] Dr. Loyd Coppola MCV (RBC) [Entitic vol] 89.7 fL Normal 81.0-99.0 [facility] Comment on above: Performed By: #### C BC #### [facility] [address] [place] [address] Dr. Loyd Coppola MONO # 0.5 103/ul Normal 0.3-0.8 [facility] Comment on above: Performed By: #### C BC #### [facility] [address] [place] [address] Dr. Loyd Coppola Monocytes/100 WBC (Bld) 5.2 % Normal 1.7-12.0 [facility] Comment on above: Performed By: #### C BC #### [facility] [address] [place] [address] Dr. Loyd Coppola NEUT # 6.4 103/ul Normal 1.4-6.5 [facility] Comment on above: Performed By: #### C BC #### [facility] [address] [place] [address] Dr. Loyd Coppola Neutrophils/100 WBC (Bld) 68.0 % Normal 43.0-75.0 [facility] Comment on above: Performed By: #### C BC #### [facility] [address] [place] [address] Dr. Loyd Coppola Platelet mean volume (Bld) [Entitic vol] 10.5 fL Normal 9.5-13.5 [facility] Comment on above: Performed By: #### C BC #### [facility] [address] [place] [address] Dr. Loyd Coppola PLT 171 103/ul Normal 150-450 [facility] Comment on above: Performed By: #### C BC #### [facility] [address] [place] [address] Dr. Loyd Coppola RBC 4.38 106/ul Normal 4.20-5.40 [facility] Comment on above: Performed By: #### C BC #### [facility] [address] [place] [address] Dr. Loyd Coppola WBC 9.4 103/ul Normal 4.0-11.0 [facility] Comment on above: Performed By: #### C BC #### [facility] [address] [place] [address] Dr. Loyd Coppola CULTURE URINEon 01-31-2023 CULTURE URINE Culture Observations : LIGHT GROWTH OF MIXED GENITAL CASSIDY. NO POTENTIAL PATHOGENS SEEN. Normal [facility] Comment on above: Performed By: #### C BC #### [facility] [address] [place] [address] Dr. Loyd Coppola CULTURE URINE Isolate 1 [...] F Trimethoprim/Sulfameth oxazole <=20 S F Normal [facility] Comment on above: Performed By: #### C BC #### [facility] [address] [place] [address] Dr. Loyd Coppola GLYCOHEMOGLOBIN A1Con 2022 ADA RECOMMENDATION SEE BELOW Normal [facility] Comment on above: Result Comment: ADA RECOMMENDED LIMIT 4.0 - 6.0 ADA THERAPEUTIC TARGET < 7.0 ACTION SUGGESTED > 7.0 Performed By: #### A 1C #### [facility] [address] [place] [address] Dr. Loyd Coppola Glucose [Mass/Vol] 100 mg/dL Normal [facility] Comment on above: Performed By: #### A 1C #### [facility] [address] [address] [address] Loyd Coppola HbA1c (Bld) [Mass fraction] 5.1 % Normal 4.5-6.2 [facility] Comment on above: Performed By: #### A 1C #### [facility] [address] [place] [address] Dr. Loyd Coppola TSHon 01-31-2023 TSH 0.495 uIU/mL Normal 0.358-3.740 [facility] Comment on above: Performed By: #### E RURJUSTINRO #### [facility] [address] [address] [address] Loyd Coppola TYPE AND SCREENon 01-31-2023 TYPE AND SCREEN Negative Normal [facility] Comment on above: Performed By: #### C BC #### [facility] [address] [address] [address] Loyd Coppola CBC AUTO DIFFon 01-28-2023 BASO # 0.0 103/ul Normal 0.0-0.1 [facility] Comment on above: Performed By: #### C BC #### [facility] [address] [place] [address] Dr. Loyd Coppola Basophils/100 WBC (Bld) 0.2 % Normal 0.2-2.0 [facility] Comment on above: Performed By: #### C BC #### [facility] [address] [place] [address] Dr. Loyd Coppola EO # 0.1 103/ul Normal 0.0-0.7 [facility] Comment on above: Performed By: #### C BC #### [facility] [address] [place] [address] Dr. Loyd Coppola Eosinophils/100 WBC (Bld) 0.8 % Critically low 0.9-7.0 [facility] Comment on above: Performed By: #### C BC #### [facility] [address] [place] [address] Dr. Loyd Coppola Erythrocyte distribution width (RBC) [Ratio] 12.3 % Normal 11.0-15.0 [facility] Comment on above: Performed By: #### C BC #### [facility] [address] [place] [address] Dr. Loyd Coppola Hematocrit (Bld) [Volume fraction] 45.0 % Normal 36.0-48.0 [facility] Comment on above: Performed By: #### C BC #### [facility] [address] [place] [address] Dr. Loyd Coppola Hemoglobin (Bld) [Mass/Vol] 16.3 g/dL Critically high 12.0-16.0 [facility] Comment on above: Performed By: #### C BC #### [facility] [address] [place] [address] Dr. Loyd Coppola IG # 0.03 10e3/ul Normal 0.00-0.03 [facility] Comment on above: Performed By: #### C BC #### [facility] [address] [place] [address] Dr. Loyd Coppola IG % 0.4 % Normal 0.0-0.5 [facility] Comment on above: Performed By: #### C BC #### [facility] [address] [place] [address] Dr. Loyd Coppola LYMPH # 1.4 103/ul Normal 1.2-3.8 [facility] Comment on above: Performed By: #### C BC #### [facility] [address] [place] [address] Dr. Loyd Coppola Lymphocytes/100 WBC (Bld) 16.8 % Critically low 20.5-60.0 [facility] Comment on above: Performed By: #### C BC #### [facility] [address] [place] [address] Dr. Loyd oCppola MANUAL DIFF REQ NO Normal [facility] Comment on above: Performed By: #### C BC #### [facility] [address] [place] [address] Dr. Loyd Coppola MCH (RBC) [Entitic mass] 32.1 pg Normal 26.7-34.0 [facility] Comment on above: Performed By: #### C BC #### [facility] [address] [place] [address] Dr. Loyd Coppola MCHC (RBC) [Mass/Vol] 36.2 g/dL Critically high 29.9-35.2 [facility] Comment on above: Performed By: #### C BC #### [facility] [address] [place] [address] Dr. Loyd Coppola MCV (RBC) [Entitic vol] 88.8 fL Normal 81.0-99.0 [facility] Comment on above: Performed By: #### C BC #### [facility] [address] [place] [address] Dr. Loyd Coppola MONO # 0.9 103/ul Critically high 0.3-0.8 [facility] Comment on above: Performed By: #### C BC #### [facility] [address] [place] [address] Dr. Loyd Coppola Monocytes/100 WBC (Bld) 10.5 % Normal 1.7-12.0 [facility] Comment on above: Performed By: #### C BC #### [facility] [address] [place] [address] Dr. Loyd Coppola NEUT # 6.0 103/ul Normal 1.4-6.5 [facility] Comment on above: Performed By: #### C BC #### [facility] [address] [place] [address] Dr. Loyd Coppola Neutrophils/100 WBC (Bld) 71.3 % Normal 43.0-75.0 [facility] Comment on above: Performed By: #### C BC #### [facility] [address] [place] [address] Dr. Loyd Coppola Platelet mean volume (Bld) [Entitic vol] 10.7 fL Normal 9.5-13.5 [facility] Comment on above: Performed By: #### C BC #### [facility] [address] [place] [address] Dr. Loyd Coppola PLT 174 103/ul Normal 150-450 [facility] Comment on above: Performed By: #### C BC #### [facility] [address] [place] [address] Dr. Loyd Coppola RBC 5.07 106/ul Normal 4.20-5.40 [facility] Comment on above: Performed By: #### C BC #### [facility] [address] [place] [address] Dr. Loyd Coppola WBC 8.4 103/ul Normal 4.0-11.0 [facility] Comment on above: Performed By: #### C BC #### [facility] [address] [place] [address] Dr. Loyd Coppola ER URINE PROFILEon 3 Bilirubin Ql (U) SMALL Abnormal NEGATIVE [facility] Comment on above: Performed By: #### JESUS CHAVARRIA #### [facility] [address] [place] [address] Dr. Loyd Coppola Clarity (U) CLEAR Normal CLEAR [facility] Comment on above: Performed By: #### JUSTIN CHAVARRIARO #### [facility] [address] [place] [address] Dr. Loyd Coppola Color (U) YELLOW Normal YELLOW [facility] Comment on above: Performed By: #### JUSTIN CHAVARRIARO #### [facility] [address] [place] [address] Dr. Loyd DIAS A micrscopic examination will be performed if indicated. Normal [facility] Comment on above: Performed By: #### JUSTIN CHAVARRIARO #### [facility] [address] [place] [address] Dr. Loyd Coppola Glucose Ql (U) Negative Normal NEGATIVE [facility] Comment on above: Performed By: #### JUSTIN CHAVARRIARO #### [facility] [address] [place] [address] Dr. Loyd Coppola Hemoglobin Ql (U) TRACE-INTACT Abnormal NEGATIVE [facility] Comment on above: Performed By: #### JUSTIN CHAVARRIARO #### [facility] [address] [place] [address] Dr. Loyd Coppola Ketones Ql (U) 80 mg/dl Abnormal NEGATIVE [facility] Comment on above: Performed By: #### JUSTIN CHAVARRIARO #### [facility] [address] [place] [address] Dr. Loyd Coppola LEUKOCYTES Negative Normal NEGATIVE [facility] Comment on above: Performed By: #### JUSTIN CHAVARRIARO #### [facility] [address] [place] [address] Dr. Loyd Copopla Nitrite Ql (U) Negative Normal NEGATIVE [facility] Comment on above: Performed By: #### Suzi ZAVALETA UMICRO #### [facility] [address] [place] [address] Dr. Loyd Coppola pH (U) 6.5 [pH] Normal 5-9 [facility] Comment on above: Performed By: #### Suzi ZAVALETA UMICRO #### [facility] [address] [place] [address] Dr. Loyd Coppola Protein (U) [Mass/Vol] 100 mg/dL Abnormal NEGATIVE/ TRACE [facility] Comment on above: Performed By: #### JUSTIN CHAVARRIARO #### [facility] [address] [place] [address] Dr. Loyd Coppola SPEC GRAVITY 1.030 Abnormal 1.005-<=1.025 [facility] Comment on above: Performed By: #### JUSTIN CHAVARRIARO #### [facility] [address] [place] [address] Dr. Loyd Coppola UR MICRO IND INDICATED Normal [facility] Comment on above: Performed By: #### JUSTIN CHAVARRIARO #### [facility] [address] [place] [address] Dr. Loyd Coppola Urobilinogen Qn (U) 0.2 {Taylor'U}/dL Normal 0.2 - 1. 0 [facility] Comment on above: Performed By: #### JUSTIN CHAVARRIARO #### [facility] [address] [place] [address] Dr. Loyd oCppola PROF 14(COMP METB)on 023 Albumin [Mass/Vol] 3.5 g/dL Normal 3.4-5.0 [facility] Comment on above: Performed By: #### C BC #### [facility] [address] [place] [address] Dr. Loyd Coppola Albumin/Globulin [Mass ratio] 0.9 {ratio} Normal [facility] Comment on above: Performed By: #### C BC #### [facility] [address] [place] [address] Dr. Loyd Coppola ALP [Catalytic activity/Vol] 61 U/L Normal 46-116 [facility] Comment on above: Performed By: #### C BC #### [facility] [address] [place] [address] Dr. Loyd Coppola ALT [Catalytic activity/Vol] 29 U/L Normal 14-59 [facility] Comment on above: Performed By: #### C BC #### [facility] [address] [place] [address] Dr. Loyd Coppola Anion gap [Moles/Vol] 12.0 mmol/L Normal [facility] Comment on above: Performed By: #### C BC #### [facility] [address] [place] [address] Dr. Loyd Coppola AST [Catalytic activity/Vol] 24 U/L Normal 15-37 [facility] Comment on above: Performed By: #### C BC #### [facility] [address] [place] [address] Dr. Loyd Coppola Bilirubin [Mass/Vol] 0.4 mg/dL Normal 0.2-1.0 [facility] Comment on above: Performed By: #### C BC #### [facility] [address] [place] [address] Dr. Loyd Coppola Calcium [Mass/Vol] 8.6 mg/dL Normal 8.5-10.1 [facility] Comment on above: Performed By: #### C BC #### [facility] [address] [place] [address] Dr. Loyd Coppola Chloride [Moles/Vol] 99 mmol/L Normal 98-107 [facility] Comment on above: Performed By: #### C BC #### [facility] [address] [place] [address] Dr. Loyd Coppola CO2 [Moles/Vol] 24.9 mmol/L Normal 21.0-32.0 [facility] Comment on above: Performed By: #### C BC #### [facility] [address] [place] [address] Dr. Loyd Coppola Creatinine [Mass/Vol] 0.55 mg/dL Normal 0.55-1.02 [facility] Comment on above: Performed By: #### C BC #### [facility] [address] [place] [address] Dr. Loyd Coppola EGFR-AF [place] >60 Normal >=60 [facility] Comment on above: Performed By: #### C BC #### [facility] [address] [place] [address] Dr. Loyd Coppola EGFR-NON AF [place] >60 Normal >=60 [facility] Comment on above: Performed By: #### C BC #### [facility] [address] [address] [address] Loyd Coppola Globulin (S) [Mass/Vol] 3.8 g/dL Normal [facility] Comment on above: Performed By: #### C BC #### [facility] [address] [address] [address] Loyd Coppola Glucose [Mass/Vol] 106 mg/dL Normal 74-106 [facility] Comment on above: Performed By: #### C BC #### [facility] [address] [place] [address] Dr. Loyd Coppola Potassium [Moles/Vol] 2.9 mmol/L Critically low 3.5-5.1 [facility] Comment on above: Performed By: #### C BC #### [facility] [address] [place] [address] Dr. Loyd Coppola Protein [Mass/Vol] 7.3 g/dL Normal 6.4-8.2 [facility] Comment on above: Performed By: #### C BC #### [facility] [address] [place] [address] Dr. Loyd Coppola Sodium [Moles/Vol] 135 mmol/L Critically low 136-145 [facility] Comment on above: Performed By: #### C BC #### [facility] [address] [place] [address] Dr. Loyd Coppola Urea nitrogen [Mass/Vol] 12.0 mg/dL Normal 7.0-18.0 [facility] Comment on above: Performed By: #### C BC #### [facility] [address] [place] [address] Dr. Loyd Coppola Urea nitrogen/Creatinine [Mass ratio] 21.8 mg/mg Normal [facility] Comment on above: Performed By: #### C BC #### [facility] [address] [place] [address] Dr. Loyd Coppola URINE MICROSCOPIC ONLYon BACTERIA MODERATE Abnormal NONE SEEN [facility] Comment on above: Performed By: #### E JESUS ZAVALETA #### [facility] [address] [place] [address] Dr. Loyd Coppola Bacteria identified Cx Nom (U) INDICATED Normal [facility] Comment on above: Performed By: #### Suzi ZAVALETA UMICRO #### [facility] [address] [place] [address] Dr. Loyd Coppola CAST NONE SEEN Normal NONE SEEN [facility] Comment on above: Performed By: #### Suzi ZAVALETA UMICRO #### [facility] [address] [place] [address] Dr. Loyd Coppola Crystals LM Nom (Urine sed) NONE SEEN Normal NONE SEEN [facility] Comment on above: Performed By: #### Suzi ZAVALETA UMICRO #### [facility] [address] [place] [address] Dr. Loyd Coppola Epithelial cells LM Ql (Urine sed) MANY Abnormal NONE SEEN /RARE [facility] Comment on above: Performed By: #### Suzi ZAVALETA UMICRO #### [facility] [address] [place] [address] Dr. Loyd Coppola MUCOUS SMALL Abnormal NONE SEEN [facility] Comment on above: Performed By: #### Suzi ZAVALETA UMICRO #### [facility] [address] [place] [address] Dr. Loyd Coppola RBC 0-2 Normal 0-2 [facility] Comment on above: Performed By: #### JUSTIN CHAVARRIARO #### [facility] [address] [place] [address] Dr. Loyd Coppola WBC 2-5 Abnormal NONE SEEN [facility] Comment on above: Performed By: #### Suzi ZAVALETA UMICRO #### [facility] [address] [place] [address] Dr. Loyd Coppola US PREG TVon 01-23-2023 [...] by: YOMAIRA GONZALEZ Date: 2023-01-23 15:42 [facility] PAP ACOG PANEL 2: 23 to 29on 09-19-2022 . . Normal [facility] Comment on above: Performed By: #### [id number] #### [facility] [address] [place] [address] Dr. Loyd Coppola Age Gdln ACOG Testing 23- [facility] Comment on above: Performed By: #### [id number] #### [facility] [address] [place] [address] Dr. Loyd Coppola DIAGNOSIS: Comment [facility] Comment on above: Result Comment: NEGA TIVE FOR INTRAEPITHELIAL LESION OR MALIGNANCY. Performed By: #### [id number] #### [facility] [address] [place] [address] Dr. Loyd Coppola Methodology: Comment [facility] Comment on above: Result Comment: This liquid based ThinPrep(R) pap test was screened with the use of an image guided system. Performed By: #### [id number] #### [facility] [address] [place] [address] Dr. Loyd Coppola Note: Comment [facility] Comment on above: Result Comment: The Pap smear is a screening test designed to aid in the detection of premalignant and malignant conditions of the uterine cervix. It is not a diagnostic procedure and should not be used as the sole means of detecting cervical cancer. Both false-positive and false-negative reports do occur. . Performed By: #### [id number] #### [facility] [address] [place] [address] Dr. Loyd Coppola Performed by: Comment Normal [facility] Comment on above: Result Comment: Celestina Velasco, Consumer Loan Processor (ASCP) Performed By: #### [id number] #### [facility] [address] [address] [address] Loyd Coppola Reflex Criteria: Comment Normal [facility] Comment on above: Result Comment: The HPV DNA reflex criteria were not met with this specimen result therefore, no HPV testing was performed. . Performed By: #### [id number] #### [facility] [address] [address] [address] Loyd Coppola Specimen adequacy: Comment Normal [facility] Comment on above: Result Comment: Sati sfactory for evaluation. Endocervical and/or squamous metaplastic cells (endocervical component) are present. Performed By: #### [id number] #### [facility] [address] [address] [address] Loyd Coppola Vital Signs Date Time Vital Sign Value Performing Clinician Facility 07-14-2025 13:43-0400 Body height 170.2 cm Blank Albrecht EARLY CHILDHOOD TEACHER ASSISTANT Work Phone: [facility] 07-14-2025 13:43-0400 Body mass index (BMI) [Ratio] 44.48 kg/m2 Blank Albrecht EARLY CHILDHOOD TEACHER ASSISTANT Work Phone: [facility] 07-14-2025 13:43-0400 Body weight 128.82 kg Blank Albrecht EARLY CHILDHOOD TEACHER ASSISTANT Work Phone: [facility] 07-14-2025 13:43-0400 Diastolic blood pressure 78 mm[Hg] Blank Albrecht EARLY CHILDHOOD TEACHER ASSISTANT Work Phone: [facility] 07-14-2025 13:43-0400 Systolic blood pressure 128 mm[Hg] Blank Trena EARLY CHILDHOOD TEACHER ASSISTANT Work Phone: [facility] 06-30-2025 11:29-0400 Body mass index (BMI) [Ratio] 44.76 kg/m2 Kristan RUBIO Work Phone: [facility] 06-30-2025 11:29-0400 Body weight 129.64 kg Kristan RUBIO Work Phone: [facility] 06-30-2025 11:29-0400 Diastolic blood pressure 82 mm[Hg] Kristan RUBIO Work Phone: [facility] 06-30-2025 11:29-0400 Systolic blood pressure 130 mm[Hg] Kristan RUBIO Work Phone: [facility] 06-23-2025 09:42-0400 Body mass index (BMI) [Ratio] 44.34 kg/m2 Blank Albrecht EARLY CHILDHOOD TEACHER ASSISTANT Work Phone: [facility] 06-23-2025 09:42-0400 Body weight 128.42 kg Blank Albrecht EARLY CHILDHOOD TEACHER ASSISTANT Work Phone: [facility] 06-23-2025 09:42-0400 Diastolic blood pressure 82 mm[Hg] Blank Albrecht EARLY CHILDHOOD TEACHER ASSISTANT Work Phone: [facility] 06-23-2025 09:42-0400 Systolic blood pressure 120 mm[Hg] Blank Albrecht EARLY CHILDHOOD TEACHER ASSISTANT Work Phone: [facility] 06-16-2025 09:36-0400 Body mass index (BMI) [Ratio] 43.67 kg/m2 Nolan Sebastian DO Work Phone: [facility] 06-16-2025 09:36-0400 Body weight 126.46 kg Nolan Sebastian DO Work Phone: [facility] 06-16-2025 09:36-0400 Diastolic blood pressure 74 mm[Hg] Nolan Sebastian DO Work Phone: [facility] 06-16-2025 09:36-0400 Systolic blood pressure 118 mm[Hg] Nolan Sebastian DO Work Phone: [facility] 06-07-2025 10:36-0400 Diastolic blood pressure 88 mm[Hg] Nolan Sebastian DO Work Phone: [facility] 06-07-2025 10:36-0400 Systolic blood pressure 158 mm[Hg] Nolan Sebastian DO Work Phone: [facility] 06-07-2025 10:29-0400 Body mass index (BMI) [Ratio] 49.34 kg/m2 Nolan Sebastian DO Work Phone: [facility] 06-07-2025 10:29-0400 Body weight 142.88 kg Nolan Sebastian DO Work Phone: [facility] 05-31-2025 11:04-0400 Body mass index (BMI) [Ratio] 49.49 kg/m2 Kristan [place] PA Work Phone: [facility] 05-31-2025 11:04-0400 Body weight 143.34 kg Kristan [place] PA Work Phone: [facility] 05-31-2025 11:04-0400 Diastolic blood pressure 84 mm[Hg] Kristan [place] PA Work Phone: [facility] 05-31-2025 11:04-0400 Systolic blood pressure 130 mm[Hg] Kristan Polina PA Work Phone: [facility] 05-24-2025 08:59-0400 Body mass index (BMI) [Ratio] 48.12 kg/m2 Kristan Polina PA Work Phone: [facility] 05-24-2025 08:59-0400 Body weight 139.37 kg Kristan Polina PA Work Phone: [facility] 05-24-2025 08:59-0400 Diastolic blood pressure 82 mm[Hg] Kristan [place] PA Work Phone: [facility] 05-24-2025 08:59-0400 Systolic blood pressure 130 mm[Hg] Kristan [place] PA Work Phone: [facility] 05-17-2025 11:58-0400 Body mass index (BMI) [Ratio] 47.58 kg/m2 Nolan Sebastian DO Work Phone: [facility] 05-17-2025 11:58-0400 Body weight 137.8 kg Nolan Sebastian DO Work Phone: [facility] 05-17-2025 11:58-0400 Diastolic blood pressure 78 mm[Hg] Nolan Sebastian DO Work Phone: [facility] 05-17-2025 11:58-0400 Systolic blood pressure 126 mm[Hg] Nolan Sebastian DO Work Phone: [facility] 05-02-2025 10:56-0400 Body mass index (BMI) [Ratio] 47.16 kg/m2 Kristan Hall PA Work Phone: [facility] 05-02-2025 10:56-0400 Body weight 136.59 kg Kristan Hall PA Work Phone: [facility] 05-02-2025 10:56-0400 Diastolic blood pressure 82 mm[Hg] Kristan Hall PA Work Phone: [facility] 05-02-2025 10:56-0400 Systolic blood pressure 130 mm[Hg] Kristan Hall PA Work Phone: [facility] 04-18-2025 13:11-0400 Body mass index (BMI) [Ratio] 46.27 kg/m2 Nolan Sebastian DO Work Phone: [facility] 04-18-2025 13:11-0400 Body weight 133.99 kg Nolan Sebastian DO Work Phone: [facility] 04-18-2025 13:11-0400 Diastolic blood pressure 74 mm[Hg] Nolan Sebastian DO Work Phone: [facility] 04-18-2025 13:11-0400 Systolic blood pressure 120 mm[Hg] Nolan Sebastian DO Work Phone: [facility] 04-05-2025 14:05-0400 Body mass index (BMI) [Ratio] 46.52 kg/m2 Nolan Sebastian DO Work Phone: [facility] 04-05-2025 14:05-0400 Body weight 134.72 kg Nolan Sebastian DO Work Phone: [facility] 04-05-2025 14:05-0400 Diastolic blood pressure 72 mm[Hg] Nolan Sebastian DO Work Phone: [facility] 04-05-2025 14:05-0400 Systolic blood pressure 110 mm[Hg] Nolan Sebastian DO Work Phone: [facility] 03-14-2025 14:00-0400 Body mass index (BMI) [Ratio] 46.05 kg/m2 Nolan Sebastian DO Work Phone: [facility] 03-14-2025 14:00-0400 Body weight 133.36 kg Nolan Sebastian DO Work Phone: [facility] 03-14-2025 14:00-0400 Diastolic blood pressure 72 mm[Hg] Nolan Sebastian DO Work Phone: [facility] 03-14-2025 14:00-0400 Systolic blood pressure 118 mm[Hg] Nolan Sebastian DO Work Phone: [facility] 03-08-2025 13:08-0400 Body mass index (BMI) [Ratio] 45.7 kg/m2 Kenya Lavoy PA-C Work Phone: [facility] 03-08-2025 13:08-0400 Body weight 132.36 kg Kenya Lavoy PA-C Work Phone: [facility] 03-08-2025 13:08-0400 Diastolic blood pressure 66 mm[Hg] Kenya Lavoy PA-C Work Phone: [facility] 03-08-2025 13:08-0400 Heart rate 95 /min Kenya Lavoy PA-C Work Phone: [facility] 03-08-2025 13:08-0400 Systolic blood pressure 125 mm[Hg] Kenya Lavoy PA-C Work Phone: [facility] 02-21-2025 13:59-0400 Body mass index (BMI) [Ratio] 45.42 kg/m2 Nolan Sebastian DO Work Phone: [facility] 02-21-2025 13:59-0400 Body weight 131.54 kg Nolan Sebastian DO Work Phone: [facility] 02-21-2025 13:59-0400 Diastolic blood pressure 84 mm[Hg] Nolan Sebastian DO Work Phone: [facility] 02-21-2025 13:59-0400 Systolic blood pressure 122 mm[Hg] Nolan Sebastian DO Work Phone: [facility] 02-16-2025 13:18-0400 Body mass index (BMI) [Ratio] 44.79 kg/m2 Violet Lopez RN Work Phone: [facility] 02-16-2025 13:18-0400 Body weight 129.73 kg Violet Lopez RN Work Phone: [facility] 12-28-2024 13:59-0500 Body mass index (BMI) [Ratio] 44.14 kg/m2 Nolan Sebastian DO Work Phone: [facility] 12-28-2024 13:59-0500 Body weight 127.82 kg Nolan Sebastian DO Work Phone: [facility] 12-28-2024 13:59-0500 Diastolic blood pressure 84 mm[Hg] Nolan Sebastian DO Work Phone: [facility] 12-28-2024 13:59-0500 Systolic blood pressure 126 mm[Hg] Nolan Sebastian DO Work Phone: [facility] 11-26-2024 09:44-0500 Body mass index (BMI) [Ratio] 43.95 kg/m2 Nom Nurse [facility] 11-26-2024 09:44-0500 Body weight 127.28 kg [facility] Nurse [facility] 03-23-2023 03:40-0400 Body weight 122.[address] JULIANNE LAMBERT . [facility] Comment on above: Performed By: #### JESUS SANDOVAL #### [facility] [address] [place] [address] Dr. Loyd Coppola Encounters Encounter Date Encounter Type Care Provider Facility Start: 07-14-2025 End: 07-14-2025 care visit Blank Albrecht NP Work Phone: [facility] Comment on above: 6 weeks f ollow-up ([facility]); Spontaneous vaginal delivery ([facility]) Start: 07-14-2025 End: 07-14-2025 ambulatory BLANK ALBRECHT Not Available Start: 07-07-2025 End: 07-07-2025 ambulatory Kristan RUBIO Work Phone: [facility] Comment on above: Benign essential hyp ertension in obstetric context, antepartum ([facility]) (Primary Dx) Start: 06-30-2025 End: 06-30-2025 ambulatory KRISTAN HALL Not Available Start: 06-30-2025 End: 06-30-2025 Patient encounter status Kristan RUBIO Work Phone: [facility] Work Phone: Start: 06-30-2025 End: 06-30-2025 care visit Kristan RUBIO Work Phone: [facility] Comment on above: BP check Start: 06-27-2025 End: 06-27-2025 ambulatory [facility] Start: 06-23-2025 End: 06-23-2025 ambulatory BLANK ALBRECHT Not Available Start: 06-23-2025 End: 06-23-2025 Office outpatient visit 10 minutes Blank Albrecht EARLY CHILDHOOD TEACHER ASSISTANT Work Phone: [facility] Comment on above: Blood pressure check Start: 06-23-2025 End: 06-23-2025 Patient encounter status Blank Albrecht EARLY CHILDHOOD TEACHER ASSISTANT Work Phone: [facility] Work Phone: Start: 06-16-2025 End: 06-16-2025 ambulatory NOLAN SEBASTIAN Not Available Start: 06-16-2025 End: 06-16-2025 Office outpatient visit 15 minutes Nolan Sebastian DO Work Phone: [facility] Comment on above: Encounter for postpa rtum visit ([facility]); Blood pressure check Start: 06-16-2025 End: 06-16-2025 Patient encounter status Nolan Sebastian DO Work Phone: [facility] Start: 06-08-2025 End: 06-08-2025 Clinisync Result Encounter Nolan Sebastian DO Work Phone: [facility] Unsolicited Start: 06-08-2025 End: 06-08-2025 Clinisync Result Encounter Nolan Sebastian DO Work Phone: [facility] Start: 06-07-2025 End: 06-07-2025 Clinisync Result Encounter Nolan Sebastian DO Work Phone: [facility] Start: 06-07-2025 End: 06-07-2025 Clinisync Result Encounter Nolan Sebastian DO Work Phone: [facility] Start: 06-07-2025 End: 06-07-2025 ambulatory NOLAN SEBASTIAN Not Available Start: 06-07-2025 End: 06-07-2025 flow sheet Nolan Sebastian DO Work Phone: [facility] Comment on above: Throbbing headache; Encounter for visit ([facility]) Start: 06-04-2025 End: 06-04-2025 Clinisync Result Encounter [...] Office outpatient visit 15 minutes Kareem Cummings WOOL HAT FORMING MACHINE TENDER-LICENSED DIRECT ENTRY MIDWIFE Work Phone: [facility] Comment on above: Gestational diabetes mellitus (GDM) in third trimester controlled on oral hypoglycemic drug (Primary Dx) Start: 06-02-2025 End: 06-02-2025 ambulatory KAREEM EMILIANO [facility] Start: 05-31-2025 End: 05-31-2025 Bamboo flowsheet Kristan RUBIO Work Phone: [facility] Start: 05-31-2025 End: 05-31-2025 Bamboo flowsheet Kristan RUBIO Work Phone: [facility] Start: 05-31-2025 End: 05-31-2025 ambulatory KRISTAN HALL Not Available Start: 05-31-2025 End: 05-31-2025 flow sheet Kristan RUBIO Work Phone: [facility] Comment on above: Third trimester preg minh ([facility]); 36 weeks gestation of ([facility]) Start: 05-30-2025 End: 05-30-2025 Clinisync Result Encounter [...] 05-24-2025 End: 05-24-2025 Telephone encounter Rufina Hurd CMA [facility] Start: 05-24-2025 End: 05-24-2025 ambulatory KRISTAN HALL Not Available Start: 05-24-2025 End: 05-24-2025 flow sheet Kristan Hall PA Work Phone: [facility] Comment on above: Third trimester preg minh ([facility]); 35 weeks gestation of ([facility]); induced hypertension, antepartum ([facility]) Start: 05-17-2025 End: 05-17-2025 Bamboo flowsheet Nolan Sebastian DO Work Phone: [facility] Start: 05-17-2025 End: 05-17-2025 Bamboo flowsheet Nolan Sebastian DO Work Phone: [facility] Start: 05-17-2025 End: 05-17-2025 flow sheet Nolan Sebastian DO Work Phone: [facility] Comment on above: Third trimester preg minh ([facility]); 34 weeks gestation of ([facility]); Gestational diabetes mellitus (GDM), antepartum, gestational diabetes method of control unspecified ([facility]) Start: 05-17-2025 End: 05-17-2025 ambulatory NOLAN SEBASTIAN [...] on above: 32 weeks gestation o f ([facility]); Third trimester ([facility]) Start: 05-02-2025 End: 05-02-2025 ambulatory KRISTAN HALL Not Available Start: 04-29-2025 End: 04-29-2025 Telephone encounter Rufina Hurd DIRECTOR PERSONAL [facility] Start: 04-25-2025 End: 04-25-2025 Clinisync Result Encounter Nolan Sebastian DO Work Phone: [facility]olic[facility] Start: 04-25-2025 End: 04-25-2025 Clinisync Result Encounter Nolan Sebastian DO Work Phone: [facility] Start: 04-19-2025 End: 04-19-2025 Telephone encounter Rufina Hurd DIRECTOR PERSONAL [facility] Start: 04-19-2025 End: 04-19-2025 Office outpatient visit 25 minutes Kenya Acosta PA-C Work Phone: [facility] Comment on above: Gestational diabetes mellitus (GDM) in second trimester controlled on oral hypoglycemic drug (Primary Dx) Start: 04-19-2025 End: 04-19-2025 [facility] Start: 04-18-2025 End: 04-18-2025 Bamboo flowsheet Nolan [...] 03-23-2025 End: 03-23-2025 Telephone encounter Rufina Hurd CMA [facility] Start: 03-23-2025 End: 03-23-2025 Office outpatient visit 25 minutes Kareem YAP Work Phone: [facility] Comment on above: Gestational diabetes mellitus (GDM) in second trimester controlled on oral hypoglycemic drug Start: 03-23-2025 End: 03-23-2025 ambulatory KAREEM EMILIANO [facility] Start: 03-16-2025 End: 03-16-2025 Telephone encounter Violet Lopez RN Work Phone: [facility] Start: 03-14-2025 End: 03-14-2025 Bamboo flowsheet Nolan [...] 03-08-2025 Telephone encounter Rufina Hurd CMA [facility] Start: 03-08-2025 End: 03-08-2025 Office outpatient new 45 minutes Kenya Acosta PA-C Work Phone: [facility] Comment on above: Gestational diabetes mellitus (GDM) in second trimester controlled on oral hypoglycemic drug (Primary Dx) Start: 03-08-2025 End: 03-08-2025 ambulatory KENYA ACOSTA [facility] Start: 03-07-2025 End: 03-07-2025 Clinisync Result Encounter Nolan Sebatsian DO Work Phone: [facility] Start: 03-07-2025 End: 03-07-2025 Clinisync Result Encounter Nolan Sebastian DO Work Phone: [facility]olic[facility] Start: 03-04-2025 End: 03-04-2025 Telephone encounter Shima Renee RN [facility] Start: 03-02-2025 End: 03-02-2025 Telephone encounter Shima Renee RN [facility] Start: 02-24-2025 End: 02-24-2025 Telephone encounter Jewels BARYR Work Phone: [facility] Start: 02-21-2025 End: 02-21-2025 Bamboo flowsheet Nolan [...] Start: 02-16-2025 End: 02-16-2025 ambulatory A[place]RIA IRAHETA [facility] Start: 02-16-2025 End: 02-16-2025 Diabetic care education Violet Lopez RN Work Phone: [facility] Comment on above: Diet controlled gest ational diabetes mellitus (GDM) in second trimester (Primary Dx); Encounter for diabetes education Start: 02-14-2025 End: 02-14-2025 ambulatory NOLAN SEBASTIAN Not Available Start: 02-07-2025 End: 02-07-2025 Chart abstracting Kareem YAP Work Phone: [facility] Start: 02-07-2025 End: 02-09-2025 Clinisync Result Encounter [...] screening Start: 12-28-2024 End: 12-28-2024 ambulatory NOLAN CORTES Not Available Start: 11-27-2024 End: 11-27-2024 Clinisync [...] Date Procedure Procedure Detail Performing Clinician Start: 06-08-2025 Ct angiography chest w/contrast/noncontrast Nolan Cortes DO Work Phone: Start: 06-08-2025 ALL CBC WITH AUTO DIFF Nolan Sebastian DO Work Phone: Start: 06-07-2025 ALL CBC WITH AUTO DIFF Nolan Sebastian DO Work Phone: Start: 06-04-2025 ALL CBC WITH AUTO DIFF [...] dip stick/tabl et rgnt non-auto w/o micrscp Blank lAbrecht NP Work Phone: Start: 04-25-2025 US OB [...] quantitative blood xcpt reagent strip Kareem Cummings GABINO-LICENSED DIRECT ENTRY MIDWIFE Work Phone: Start: 02-07-2025 AFP, SERUM, OPEN [...] Phone: Start: 11-27-2024 Antibody screen Maame Cummings WOOL HAT FORMING MACHINE TENDER-LICENSED DIRECT ENTRY MIDWIFE Work Phone: Start: 11-27-2024 Drug scrn 1+ [...] in Cervix by Cyto stain Kareem Cummings WOOL HAT FORMING MACHINE TENDER-LICENSED DIRECT ENTRY MIDWIFE Work Phone: Plan of Treatment Date Care Activity Detail Author Start: 03-08-2026 Adult BMI Screening Adult BMI Screen ing [facility] Start: 02-19-2026 Screening for malign ant neoplasm of cervix Pap Smear [facility] Start: 02-16-2026 Adult BMI Screening Adult BMI Screen ing [facility] Start: 07-14-2025 End: 07-14-2025 ambulatory 07/14/2025 1:30 PM EDT Visit [facility] [address] [place] [address] Blank Albrecht, EARLY CHILDHOOD TEACHER ASSISTANT [address] [place] [address] [facility] Start: 07-11-2025 Influenza vaccination Influenza Vacc ine [facility] Start: 06-30-2025 End: 06-30-2025 ambulatory 06/30/2025 10:50 AM EDT Visit [facility] [address] [place] [address] Kristan Hall PA [address] [place] [address] [facility] Start: 06-23-2025 End: 06-23-2025 ambulatory 06/23/2025 9:30 AM EDT Visit [facility] [address] [place] [address] Blank Albrecht, EARLY CHILDHOOD TEACHER ASSISTANT [address] [place] [address] [facility] Start: 06-07-2025 End: 06-07-2025 Patient encounter procedure [facility] Start: 06-02-2025 End: 06-02-2025 Telemedicine consultation with patient 06/02/2025 9:30 AM EDT Telemedicine [facility] [address] [place] [id number] Kareem Cummings, GABINO-LICENSED DIRECT ENTRY MIDWIFE [address] [place] [address] [facility] Start: 05-31-2025 End: 05-31-2026 CULTURE, GROUP B STREP WITH SUSCEPTIBLITY CULTURE, GROUP B STREP WITH SUSCEPTIBLITY Lab Routine Third trimester ([facility]) Expected: 05/31/2025, Expires: 05/31/2026 [facility] Work Phone: Comment on above: Expected: 05/31/2025 , Expires: 05/31/2026 Start: 05-31-2025 End: 05-31-2025 Patient encounter procedure 05/31/2025 10:50 AM EDT Routine [facility] [address] [place] [address] Kristan Hall PA [address] [place] [address] [facility] Start: 05-24-2025 End: 05-24-2025 Patient encounter procedure 05/24/2025 8:40 AM EDT Routine [facility] [address] [place] [id number] Kristan Hall PA [address] [place] [address] [facility] Start: 05-17-2025 End: 05-17-2025 Patient encounter procedure 05/17/2025 11:40 AM EDT Routine [facility] [address] [place] [id number] Nolan Cortes, DO [address] [facility] [place] [address] [facility] Start: 05-02-2025 End: 05-02-2025 Patient encounter procedure [facility] Comment on above: Arrived Start: 04-19-2025 End: 04-19-2025 Telemedicine consultation with patient 04/19/2025 10:30 AM EDT Telemedicine Maternal- Medicine at [facility] [address] [place] [phone] Kenya Acosta PA-C [address] [place] [address] [facility] at [facility] Start: 04-18-2025 End: 04-18-2025 Patient encounter procedure 04/18/2025 1:00 PM EDT Routine [facility] [address] [place] [phone] Nolan Cortes, DO [address] [place] [address] [facility] Start: 04-05-2025 End: 10-06-2025 [...] 10:30 AM EDT Telemedicine Maternal- Medicine at [facility] [address] [place] [address] Kareem Cummings, WOOL HAT FORMING MACHINE TENDER-LICENSED DIRECT ENTRY MIDWIFE [address] [place] [address] [facility]- [facility] at [facility] Start: 03-14-2025 End: 03-14-2025 Patient encounter procedure 03/14/2025 1:50 PM EDT Routine [facility] [address] [place] [place] [phone] Nolan Cortes, [address] [place] [address] [facility] Start: 03-08-2025 End: 06-07-2025 Protein creat ratio Protein creat ratio Lab Routine Gestational diabetes mellitus (GDM) in second trimester controlled on oral hypoglycemic drug Expected: 03/08/2025 (Approximate), Expires: 06/07/2025 [facility] Comment on above: Expected: 03/08/2025 (Approximate), Expires: 06/07/2025 Start: 03-08-2025 End: 03-08-2025 Patient encounter procedure 03/08/2025 1:00 PM EDT Office Visit Maternal- Medicine at [facility] [address] [facility] [place] [address] Kenya Acosta PA-C [address] [address] [facility] at [facility] Start: 02-21-2025 End: 02-21-2025 Patient encounter procedure 02/21/2025 1:20 PM EDT Routine [facility] [address] [place] [phone] Nolan Cortes, [address] [place], [place] [id number] [facility] Start: 02-14-2025 End: 02-14-2025 Professional / ancillary services management 02/14/2025 1:00 PM EDT Ancillary Procedure [facility] [address] [place] [phone] [facility] Start: 02-10-2025 End: 02-10-2025 ambulatory 02/10/2025 1:30 PM EDT Support Visit Maternal- Medicine at [facility] [address] [facility] [place] [address] Violet Lopez RN [address] [facility], [address] [place] [address] Jewels Pedersen, JHONNY [address] [place] [address] M[facility]- Medicine at [facility] Start: 01-24-2025 End: 01-24-2025 Patient encounter procedure 01/24/2025 11:20 AM EDT Routine [facility] [address] [place] [address] Nolan Cortes, DO [address] [place] [address] [facility] Start: 12-28-2024 End: 12-28-2025 Measurement [...] encounter procedure 12/27/2024 1:40 PM EST Routine [facility] [address] [place] [phone] Nolan Cortes, DO [address] [facility] [place] [address] [facility] Start: 11-26-2024 End: 11-26-2025 ABO/Rh ABO/Rh Lab Routine Missed menses , unspecified gestational age Expected: 11/26/2024 (Approximate), Expires: 11/26/2025 [facility] Comment on above: Expected: 11/26/2024 [...] first trimester Expected: 11/26/2024 (Approximate), Expires: 11/26/2025 [facility] Comment on above: Expected: 11/26/2024 (Approximate), Expires: 11/26/2025 Start: 07-11-2024 Influenza vaccination Influenza Vacc ine [facility] Start: 04-22-2024 Adult BMI Screening Adult BMI Screen ing [facility] Start: 04-22-2024 Tobacco Screening Tobacco Screening [facility] Start: 2011 DTaP,Tdap and Td Vaccines (1 - Tdap) DTaP,Tdap and Td Vaccines (1 - Tdap) [facility] Start: 2004 Depression Screening Depression Scre ening [facility] Start: 2004 Tobacco Screening Tobacco Screening [facility] Bacteria identified in Urine by Culture Urine culture Microbiology Routine Missed menses Ordered: 11/26/2024 [facility] Comment on above: Ordered: 11/26/2024 CBC W Auto Different ial panel - Blood CBC and differential Lab Routine Missed menses , unspecified gestational age Ordered: 11/26/2024 [facility] Comment on above: Ordered: 11/26/2024 End: 03-08-2026 Comprehensive metabolic 2000 panel - Serum or Plasma Comprehensive metabolic panel Lab Routine Gestational diabetes mellitus (GDM) in second trimester controlled on oral hypoglycemic drug 1 Occurrences starting 03/08/2025 until 03/08/2026 [employer] Work Phone: Comment on above: 1 Occurrences starti ng 03/08/2025 until 03/08/2026 Hemoglobin A1c/Hemoglobin.total in Blood Hemoglobin A1c Lab Routine Missed menses , unspecified gestational age Ordered: 11/26/2024 [facility] Comment on above: Ordered: 11/26/2024 Hepatitis B virus surface Ag [Presence] in Serum or Plasma by Immunoassay Hepatitis B surface antigen Lab Routine Missed menses , unspecified gestational age Ordered: 11/26/2024 [facility] Comment on above: Ordered: 11/26/2024 Hepatitis C virus Ab [Presence] in Serum or Plasma by Immunoassay Hepatitis C antibody Lab Routine Missed menses , unspecified gestational age Ordered: 11/26/2024 [facility] Comment on above: Ordered: 11/26/2024 HIV-1/HIV-2 antigen/antibody combination immunoassay HIV-1 and HIV-2 antibodies Lab Routine Missed menses , unspecified gestational age Ordered: 11/26/2024 [facility] Comment on above: Ordered: 11/26/2024 Reagin Ab [Presence] in Serum by RPR RPR Lab Routine Missed menses , unspecified gestational age Ordered: 11/26/2024 [facility] Comment on above: Ordered: 11/26/2024 Rubella antibody, IgG Rubella an tibody, IgG Lab Routine Missed menses , unspecified gestational age Ordered: 11/26/2024 [facility] Comment on above: Ordered: 11/26/2024 End: 10-06-2025 US for US OB follow up transabdominal approach Imaging Routine Gestational diabetes mellitus (GDM), antepartum, gestational diabetes method of control unspecified H/O: hypertension [id number] for 4 Occurrences starting 04/05/2025 until 10/06/2025 [facility] Work Phone: Comment on above: [id number] for 4 Occurr ences starting 04/05/2025 until 10/06/2025 Immunizations Immunization Date Immunization Notes Care Provider [facility] 10-10-2023 influenza virus vaccine, unspecified formulation Kareem Cummings WOOL HAT FORMING MACHINE TENDER-LICENSED DIRECT ENTRY MIDWIFE Work Phone: [employer] 08-25-2021 RHO(D) immune globul in- IV or IM Kareem Cummings WOOL HAT FORMING MACHINE TENDER-LICENSED DIRECT ENTRY MIDWIFE Work Phone: [employer] [facility] [employer] Payers Date Payer Category Payer [facility] BCBS [id number] 2018 [facility] Managed Care - PPO ANTHEM [id number] 1992 Unknown [id number] 2.16.840.1.065571.3.579. 2.593 1992 Unknown [id number] 2.16.840.1.232213.3.579. 2.593 1992 Unknown [id number] 2.16.840.1.399713.3.579. 2.593 1992 Unknown [id number] 2.16.840.1.716895.3.579. 2.593 1992 Unknown [id number] 2.16.840.1.675556.3.579. 2.593 1992 Unknown [id number] 2.16.840.1.102419.3.579. 2.593 1992 Unknown [id number] 2.16.840.1.691825.3.579. 2.593 1992 Unknown [id number] 2.16.840.1.298579.3.579. 2.593 1992 Unknown [id number] 2.16.840.1.464102.3.579. 2.593 1992 Unknown [id number] 2.16.840.1.612300.3.579. 2.1286 1992 Unknown [id number] 2.16.840.1.306466.3.579. 2.1286 1992 Unknown [id number] 2.16.840.1.020987.3.579. 2.1286 1992 Unknown [id number] 2.16.840.1.599869.3.579. 2.1286 1992 Unknown [id number] 2.16.840.1.642679.3.579. 2.1286 1992 Unknown [id number] 2.16.840.1.793480.3.579. 2.1258 1992 Unknown [id number] 2.16.840.1.329025.3.579. 2.1258 1992 Unknown [id number] 2.16.840.1.736268.3.579. 2.1258 1992 Unknown [id number] 2.16.840.1.289330.3.579. 2.1258 1992 Unknown [id number] 2.16.840.1.093876.3.579. 2.1258 1992 Unknown [id number] 2.16.840.1.110086.3.579. 2.1258 1992 Unknown [id number] 2.16.840.1.059603.3.579. 2.1258 1992 Unknown [id number] 2.16.840.1.609387.3.579. 2.1258 1992 Unknown [id number] 2.16.840.1.516302.3.579. 2.1258 1992 Unknown [id number] 2.16.840.1.641947.3.579. 2.1258 1992 Unknown [id number] 2.16.840.1.349077.3.579. 2.1258 1992 Unknown [id number] 2.16.840.1.032343.3.579. 2.1258 1992 Unknown [id number] 2.16.840.1.996513.3.579. 2.1259 1992 Unknown [id number] 2.16.840.1.605982.3.579. 2.1259 1992 Unknown [id number] 2.16.840.1.344101.3.579. 2.1259 1992 Unknown [id number] 2.16.840.1.749380.3.579. 2.9 1992 Unknown [id number] 2.16.840.1.216757.3.579. 2.1259 1992 Unknown [id number] 2.16.840.1.732818.3.579. 2.1259 1959 Unknown [id number] Social History Date Type Detail Facility Start: 02-18-2023 End: 04-22-2023 Tobacco smoking status DEIS Ex-smoker [facility] History of tobacco use Current smoker [facility] History of tobacco use Cigarette Smoker [facility] Start: 11-26-2024 End: 07-14-2025 Alcoholic beverage intake Lifetime non-drinker (finding) [facility] Start: 03-18-2024 End: 11-26-2024 History of Social function [facility] Start: 03-18-2024 End: 11-26-2024 Tobacco use panel [facility] Start: 10-01-2024 [facility] Start: 1990 Sex assigned at Not on file [facility] History of tobacco use Tobacco U se Types Packs/Day Years Used Date Smoking Tobacco: Former Vaping/E-cigarettes Smokeless Tobacco: Never [facility] Start: 02-18-2023 Tobacco use and exposure Smokeless tobacco non-user [facility] Start: 02-07-2025 End: 03-08-2025 Alcoholic beverage intake Ex-drinker (finding) [facility] Childcare Unknown [facility] Start: 10-05-2018 Alcohol Comment rare [facility] Start: 1990 Sex assigned at Female [facility] Start: 06-15-2015 Sex Female (finding) [facility] Start: 02-24-2023 Gender identity Identifies as female gender (finding) [facility] Start: 02-24-2023 Sexual orientation Heterosexual (finding) [facility] Medical Equipment Procedure Code Equipment Code Equipment Origin al Text Equipment Identifier Dates [id number], [id number], [id number] Start: 01-24-2025 End: 02-23-2025 Clinical Notes 11-26-2024 to 07-14-2025 Blank Albrecht NP - 07/14/2025 1:30 PM JOANNE Kelly - 07/07/2025 1:50 PM JOANNE Kelly - 06/30/2025 10:50 AM EDTBlank Albrecht NP - 06/23/2025 9:30 AM EDT Note Date & Type Note Facility 07-14-2025 History of Presen t illness Narrative Reason for Appointment: Patient ID: Charlene Purvis is a 34 y.o. female who presents for Care (Pt present today for a 6 week post visit. Pt delivered on 06/03/2025 vaginally. ) Patient presents today for Post Follow Up appointment. MEDICATIONS Current Outpatient Medications Medication Instructions ascorbic acid (VITAMIN C) 500 mg, Daily FeroSul 325 mg, Daily with breakfast labetalol (NORMODYNE) 200 mg, Oral, 3 times daily ALLERGIES No Known Allergies PROBLEMS Active Ambulatory Problems Diagnosis Date Noted Benign essential hypertension in obstetric context ([facility]) 04/18/2023 Exposure to cat feces 04/18/2023 Gestational diabetes ([facility]) 04/18/2023 Nausea 04/18/2023 History of delivery 02/24/2023 Resolved Ambulatory Problems Diagnosis Date Noted No Resolved Ambulatory Problems Past Medical History: Diagnosis Date Chronic hypertension affecting ([facility]) Exposure to cat feces, sequela Former smoker Herpes exposure History of miscarriage Morbid obesity with BMI of 40.0-44.9, adult ([facility]) HISTORY PAST MEDICAL HISTORY SOCIAL HISTORY Past Medical History: Diagnosis Date Chronic hypertension affecting ([facility]) Exposure to cat feces, sequela Former smoker Gestational diabetes ([facility]) Herpes exposure History of miscarriage Morbid obesity with BMI of 40.0-44.9, adult ([facility]) Social History Tobacco Use Smoking status: Former [...] Surgical History: Procedure Laterality Date CHOLECYSTECTOMY 10/2018 CT ANGIOGRAM CHEST 06/08/2025 CT ANGIOGRAM CHEST ELBOW SURGERY 1997 broken elbow NECK SURGERY [...] nursing note reviewed. Exam conducted with a overnight stocker present. Vitals: Estimated body mass index is 44.76 kg/m as calculated from the following: Height as of 09/09/23: 5' 7 . Weight as of 06/30/25: 285 lb 12.8 oz. BP: No LMP recorded. ASSESSMENT & PLAN ICD-10-CM 1. 6 weeks follow-up ([facility]) Z39.2 2. Spontaneous vaginal delivery ([facility]) O80 Post Follow Up: Patient is doing well has no complaints. Patient presents today for 6 week visit. Patient is s/p Vaginal delivery. Patient states no depression denies suicidal and homicidal ideations. All options were discussed with the patient regarding control and patient desires b/c patches. Discussed contraceptive patch with patient today and BMI <30 requirements for effectiveness. Patient offered OCPs, IUD, nexplanon and nuvaring but does not want to trial these options at this time and will use alternative contraceptive method. Follow Up: Patient is to return for annual unless needed otherwise. Documented by Suze Hendrix MA on behalf of: Blank Albrecht NP documented in this encounter [facility] 07-07-2025 History of Presen t illness Narrative 5Reason for Appointment: Patient ID: Charlene Purvis is a 34 y.o. female who presents for No chief complaint on file. Patient presents today via telephone call for a telehealth appointment. Patients Phone #: [phone] (mobile) Date: 07/07/2025 Time: 2:18 PM of the visit Platform Used: Audio call performed via in house telephone system. Location of Patient and Provider: Patient at home, provider at clinic Consent for Telehealth: Patient provided verbal consent to conduct the visit virtually via audio only phone call Current Medications: has a current medication list which includes the following prescription(s): ascorbic acid, ferosul, labetalol, and labetalol. Medical History: Active Ambulatory Problems Diagnosis Date Noted Benign essential hypertension in obstetric context ([facility]) 04/18/2023 Exposure to cat feces 04/18/2023 Gestational diabetes ([facility]) 04/18/2023 Nausea 04/18/2023 History of delivery 02/24/2023 Resolved Ambulatory Problems Diagnosis Date Noted No Resolved Ambulatory Problems Past Medical History: Diagnosis Date Chronic hypertension affecting ([facility]) Exposure to cat feces, sequela Former smoker Herpes exposure History of miscarriage Morbid obesity with BMI of 40.0-44.9, adult ([facility]) Family History Problem Relation Name Age of [...] Surgical History: Procedure Laterality Date CHOLECYSTECTOMY 10/2018 CT ANGIOGRAM CHEST 06/08/2025 CT ANGIOGRAM CHEST ELBOW SURGERY 1997 broken elbow NECK SURGERY to remove marquis - benign PAP SMEAR 09/11/2022 negative No Known Allergies Vitals: Estimated body mass index is 44.76 kg/m as calculated from the following: Height as of 09/09/23: 5' 7 . Weight as of 06/30/25: 285 lb 12.8 oz. BP: No LMP recorded. Assessment/Plan No diagnosis found. Today's telehealth visit consisted of spending 5-7 minutes talking to patient on the phone. Patient blood pressure is normal and she may stop taking blood pressure medications. Pt will follow up on 07/14 for 6 week post appt Documented by JOANNE Hernandez on behalf of: JOANNE Hernandez documented in this encounter [facility] 06-30-2025 History of Presen t illness Narrative Reason for Appointment: Patient ID: Charlene Purvis is a 34 y.o. female who presents for Blood Pressure Check Patient presents today for Post Follow Up appointment. MEDICATIONS Current Outpatient Medications Medication Instructions ascorbic acid (VITAMIN C) 500 mg, Daily FeroSul 325 mg, Daily with breakfast labetalol (NORMODYNE) 200 mg, Oral, 3 times daily labetalol (NORMODYNE) 100 mg, Oral, 2 times daily ALLERGIES No Known Allergies PROBLEMS Active Ambulatory Problems Diagnosis Date Noted Benign essential hypertension in obstetric context ([facility]) 04/18/2023 Exposure to cat feces 04/18/2023 Gestational diabetes ([facility]) 04/18/2023 Nausea 04/18/2023 History of delivery 02/24/2023 Resolved Ambulatory Problems Diagnosis Date Noted No Resolved Ambulatory Problems Past Medical History: Diagnosis Date Chronic hypertension affecting ([facility]) Exposure to cat feces, sequela Former smoker Herpes exposure History of miscarriage Morbid obesity with BMI of 40.0-44.9, adult ([facility]) HISTORY PAST MEDICAL HISTORY SOCIAL HISTORY Past Medical History: Diagnosis Date Chronic hypertension affecting ([facility]) Exposure to cat feces, sequela Former smoker Gestational diabetes ([facility]) Herpes exposure History of miscarriage Morbid obesity with BMI of 40.0-44.9, adult ([facility]) Social History Tobacco Use Smoking status: Former [...] Surgical History: Procedure Laterality Date CHOLECYSTECTOMY 10/2018 CT ANGIOGRAM CHEST 06/08/2025 CT ANGIOGRAM CHEST ELBOW SURGERY 1997 broken elbow NECK SURGERY [...] reviewed. Vitals: Estimated body mass index is 44.76 kg/m as calculated from the following: Height as of 09/09/23: 5' 7 . Weight as of this encounter: 285 lb 12.8 oz. BP: 130/82 No LMP recorded. ASSESSMENT & PLAN ICD-10-CM 1. BP check Z01.30 labetalol (Normodyne) 100 MG tablet Patient doing well and keeping log. Bp are improving. We wioll decrease to 100mg bid and follow up via telehealth next week. Pt scheduled for 6 week pp in 2 weeks Documented by JOANNE Hernandez on behalf of: JOANNE Hernandez documented in this encounter [facility] 06-27-2025 Note [facility] Subjective Charlene Purvis is a 34 y.o. year old female as a new patient to establish care. Per [facility] for left ventricular hypertrophy. Patient denies chest pain, SOB, MCDANIELS, palpitations/racing heart, dizziness/lightheaded. Patient recently had a baby, patient states she had preeclampsia. Patient has mild leg swelling. Patient had recent Echo and CT of chest Patient Active Problem List Diagnosis Benign essential hypertension in obstetric context Exposure to cat feces Gestational diabetes History of delivery Gestational diabetes mellitus (GDM) in third trimester controlled on oral hypoglycemic drug Nausea Family History Problem Relation Name Age of Onset Heart murmur Mother Social History Tobacco Use Smoking status: Former Types: Cigarettes Smokeless tobacco: Never Substance Use Topics Alcohol use: Yes Comment: occasional Drug use: Never HPI Charlene is seen as a new patient due to finding of left ventricular hypertrophy on recent echocardiogram. She is a 34-year-old woman with no prior cardiac history. She recently delivered her second child on 06/03/2025. During the end of the she had preeclampsia and had to be induced. She reports that during the she added weight and had fluid buildup. She was given furosemide after the delivery but she has not been using it recently. Her echocardiogram showed mild left ventricular hypertrophy with increase in the thickness of the posterior wall. She also had mildly elevated right-sided pressures with borderline right ventricular size. There was no valvular dysfunction. Today she reports that she has no chest pain or shortness of breath. She has bilateral lower extremity edema residual from her recent . She has been monitoring blood pressure at home and most of the numbers show a systolic ranging between 100 to 120 mmHg. Some readings show systolic around 130 mmHg. Review of Systems Cardiovascular: Positive for leg swelling. Objective Visit Vitals BP 134/82 (BP Location: Right arm, Patient Position: Sitting) Pulse 63 Ht 1.702 m (5' 7 ) Wt 129 kg (284 lb) SpO2 100% BMI 44.48 kg/m??? OB Status Recent Smoking Status Former BSA 2.47 m??? Physical Exam Constitutional: Appearance: She is well-developed. She is obese. She is not ill-appearing. HENT: Head: Normocephalic and atraumatic. Nose: Nose normal. Eyes: General: No scleral icterus. Pupils: Pupils are equal, round, and reactive to light. Neck: Thyroid: No thyromegaly. Vascular: No JVD. Cardiovascular: Rate and Rhythm: Normal rate and regular rhythm. Pulses: Radial pulses are 2+ on the right side and 2+ on the left side. Heart sounds: Normal heart sounds. No murmur heard. No friction rub. No gallop. Pulmonary: Effort: Pulmonary effort is normal. No respiratory distress. Breath sounds: Normal breath sounds. No wheezing or rales. Chest: Chest wall: No tenderness. Abdominal: General: Bowel sounds are normal. There is no distension. Palpations: Abdomen is soft. Tenderness: There is no abdominal tenderness. Musculoskeletal: General: No swelling. Cervical back: Neck supple. Right lower le+ Pitting Edema present. Left lower le+ Pitting Edema present. Skin: General: Skin is warm and dry. Neurological: General: No focal deficit present. Mental Status: She is alert and oriented to person, place, and time. Psychiatric: Mood and Affect: Mood normal. Behavior: Behavior is cooperative. Judgment: Judgment normal. Allergies No Known Allergies Medications Current Outpatient Medications: ascorbic acid (Vitamin C) 500 mg ER capsule, Take 500 mg by mouth in the morning., Disp: , Rfl: ferrous sulfate 325 (65 Fe) MG tablet, Take 325 mg by mouth in the morning., Disp: , Rfl: labetalol (Normodyne) 100 mg tablet, Take 200 mg by mouth 3 times a day., Disp: , Rfl: furosemide (Lasix) 20 mg tablet, Take 20 mg by mouth in the morning. (Patient not taking: Reported on 06/27/2025), Disp: , Rfl: Recent Labs Blood testing 06/09/2025: Hemoglobin 8.7, platelets 166, potassium 3.2, BUN 7, creatinine 0.64. LFTs normal. NT proBNP 830. Imaging and other tests Echocardiogram 06/08/2025: CONCLUSION: 1. Mild concentric left ventricular hypertrophy with normal systolic function. LVEF is estimated at 60-65%. 2. Borderline right ventricular size with normal systolic function. 3. No significant valvular dysfunction. 4. Mildly elevated right sided pressures. Septal wall thickness 1.07 cm, posterior wall thickness 1.08 cm. CTA chest 06/08/2025: SUBOPTIMAL BOLUS TIMING. NO CENTRAL PULMONARY EMBOLISM. SMALL BILATERAL PLEURAL EFFUSIONS WITH BIBASILAR ATELECTASIS, GROUNDGLASS AND SMOOTH SEPTAL THICKENING. FLUID OVERLOAD IS SUSPECTED. DEVELOPING INFECTIOUS PROCESS CANNOT BE EXCLUDED. ECG 06/27/2025: Normal sinus rhythm, normal ECG Assessment/ (more content not included)... [facility] 06-23-2025 History of Presen t illness Narrative Reason for Appointment: Patient ID: Charlene Purvis is a 34 y.o. female who presents for Blood Pressure Check Patient presents today for Medication Follow Up appointment. MEDICATIONS Current Outpatient Medications Medication Instructions ascorbic acid (VITAMIN C) 500 mg, Daily FeroSul 325 mg, Daily with breakfast labetalol (NORMODYNE) 200 mg, Oral, 3 times daily ALLERGIES No Known Allergies PROBLEMS Active Ambulatory Problems Diagnosis Date Noted Benign essential hypertension in obstetric context ([facility]) 04/18/2023 Exposure to cat feces 04/18/2023 Gestational diabetes ([facility]) 04/18/2023 Nausea 04/18/2023 History of delivery 02/24/2023 Resolved Ambulatory Problems Diagnosis Date Noted No Resolved Ambulatory Problems Past Medical History: Diagnosis Date Chronic hypertension affecting ([facility]) Exposure to cat feces, sequela Former smoker Herpes exposure History of miscarriage Morbid obesity with BMI of 40.0-44.9, adult ([facility]) HISTORY PAST MEDICAL HISTORY SOCIAL HISTORY Past Medical History: Diagnosis Date Chronic hypertension affecting ([facility]) Exposure to cat feces, sequela Former smoker Gestational diabetes ([facility]) Herpes exposure History of miscarriage Morbid obesity with BMI of 40.0-44.9, adult ([facility]) Social History Tobacco Use Smoking status: Former [...] Surgical History: Procedure Laterality Date CHOLECYSTECTOMY 10/2018 CT ANGIOGRAM CHEST 06/08/2025 CT ANGIOGRAM CHEST ELBOW SURGERY 1997 broken elbow NECK SURGERY to remove marquis - benign PAP SMEAR 09/11/2022 negative REVIEW OF SYSTEMS Review of Systems: Review of Systems OBJECTIVE Objective: OBGyn Exam Vitals: Estimated body mass index is 44.34 kg/m as calculated from the following: Height as of 23: 5' 7 . Weight as of this encounter: 283 lb 1.9 oz. BP: 120/82 No LMP recorded. ASSESSMENT & PLAN ICD-10-CM 1. Blood pressure check Z01.30 Documented by Blank Albrecht NP on behalf of: Blank Albrecht NP Reason for Appointment: Patient ID: Charlene Purvis is a 34 y.o. female who presents for Blood Pressure Check Patient presents today for follow up for post hypertension MEDICATIONS Current Outpatient Medications Medication Instructions ascorbic acid (VITAMIN C) 500 mg, Daily FeroSul 325 mg, Daily with breakfast labetalol (NORMODYNE) 200 mg, Oral, 3 times daily ALLERGIES No Known Allergies PROBLEMS Active Ambulatory Problems Diagnosis Date Noted Benign essential hypertension in obstetric context ([facility]) 04/18/2023 Exposure to cat feces 04/18/2023 Gestational diabetes ([facility]) 04/18/2023 Nausea 04/18/2023 History of delivery 02/24/2023 Resolved Ambulatory Problems Diagnosis Date Noted No Resolved Ambulatory Problems Past Medical History: Diagnosis Date Chronic hypertension affecting ([facility]) Exposure to cat feces, sequela Former smoker Herpes exposure History of miscarriage Morbid obesity with BMI of 40.0-44.9, adult ([facility]) HISTORY PAST MEDICAL HISTORY SOCIAL HISTORY Past Medical History: Diagnosis Date Chronic hypertension affecting ([facility]) Exposure to cat feces, sequela Former smoker Gestational diabetes ([facility]) Herpes exposure History of miscarriage Morbid obesity with BMI of 40.0-44.9, adult ([facility]) Social History Tobacco Use Smoking status: Former [...] Surgical History: Procedure Laterality Date CHOLECYSTECTOMY 10/2018 CT ANGIOGRAM CHEST 06/08/2025 CT ANGIOGRAM CHEST ELBOW SURGERY 1997 broken elbow NECK SURGERY [...] nursing note reviewed. Exam conducted with a overnight stocker present. Vitals: Estimated body mass index is 44.34 kg/m as calculated from the following: Height as of 09/09/23: 5' 7 . Weight as of this encounter: 283 lb 1.9 oz. BP: 120/82 No LMP recorded. ASSESSMENT & PLAN ICD-10-CM 1. Blood pressure check Z01.30 Patient without complaints of swelling or headaches and feeling much improved. Will continue with Labetalol 200mg BID and follow up next week for recheck in 1 week. Documented by Blank Albrecht NP on behalf of: Blank Albrecht NP documented in this encounter [facility] 06-16-2025 History of Presen t illness Narrative Reason for Appointment: Patient ID: Charlene Purvis is a 34 y.o. female who presents for Follow-up and Blood Pressure Check Patient presents today for Follow up appointment to discuss results. 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 ([facility]) 04/18/2023 Exposure to cat feces 04/18/2023 Gestational diabetes ([facility]) 04/18/2023 Nausea 04/18/2023 History of delivery 02/24/2023 Resolved Ambulatory Problems Diagnosis Date Noted No Resolved Ambulatory Problems Past Medical History: Diagnosis Date Chronic hypertension affecting ([facility]) Exposure to cat feces, sequela Former smoker Herpes exposure History of miscarriage Morbid obesity with BMI of 40.0-44.9, adult ([facility]) HISTORY PAST MEDICAL HISTORY SOCIAL HISTORY Past Medical History: Diagnosis Date Chronic hypertension affecting ([facility]) Exposure to cat feces, sequela Former smoker Gestational diabetes ([facility]) Herpes exposure History of miscarriage Morbid obesity with BMI of 40.0-44.9, adult ([facility]) Social History Tobacco Use Smoking status: Former [...] Surgical History: Procedure Laterality Date CHOLECYSTECTOMY 10/2018 CT ANGIOGRAM CHEST 06/08/2025 CT ANGIOGRAM CHEST ELBOW SURGERY 1997 broken elbow NECK SURGERY [...] nursing note reviewed. Exam conducted with a overnight stocker present. Vitals: Estimated body mass index is 43.67 kg/m as calculated from the following: Height as of 09/09/23: 5' 7 . Weight as of this encounter: 278 lb 12.8 oz. BP: 118/74 No LMP recorded. ASSESSMENT & PLAN ICD-10-CM 1. Encounter for visit ([facility]) Z39.2 2. Blood pressure check Z01.30 Patient presents to office today for follow ER Hypertension. Patient is currently taking 300mg Labetalol TID. Informed patient that with current BP in office medication will be decreased. Patient will take 200mg Labetalol TID and will return 1 week. Patient to discontinue Lasix at this time as well. Documented by Carole Maxwell LPN on behalf of: Nolan Cortes DO documented in this encounter [facility] 06-07-2025 History of Presen t illness Narrative Reason for Appointment: Patient ID: Charlene Purvis is a 34 y.o. female who presents for Blood Pressure Check Patient presents today for Post Follow Up appointment. 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 ([facility]) 04/18/2023 Exposure to cat feces 04/18/2023 Gestational diabetes ([facility]) 04/18/2023 Nausea 04/18/2023 History of delivery 02/24/2023 Resolved Ambulatory Problems Diagnosis Date Noted No Resolved Ambulatory Problems Past Medical History: Diagnosis Date Chronic hypertension affecting ([facility]) Exposure to cat feces, sequela Former smoker Herpes exposure History of miscarriage Morbid obesity with BMI of 40.0-44.9, adult ([facility]) HISTORY PAST MEDICAL HISTORY SOCIAL HISTORY Past Medical History: Diagnosis Date Chronic hypertension affecting ([facility]) Exposure to cat feces, sequela Former smoker Gestational diabetes ([facility]) Herpes exposure History of miscarriage Morbid obesity with BMI of 40.0-44.9, adult ([facility]) Social History Tobacco Use Smoking status: Former [...] nursing note reviewed. Exam conducted with a overnight stocker present. Vitals: Estimated body mass index is 49.34 kg/m as calculated from the following: Height as of 09/09/23: 5' 7 . Weight as of this encounter: 315 lb. BP: 158/88 Patient's last menstrual period was 09/17/2024. ASSESSMENT & PLAN ICD-10-CM 1. Throbbing headache R51.9 2. Encounter for visit ([facility]) Z39.2 Pt presents with a throbbing headache- pt being sent to [facility] for observation pt delivered 06/03/25. Pt to continue labetalol. Pt to return in one week for BP check and headache check. Documented by Grace Arita LPN on behalf of: Nolan Cortes DO documented in this encounter [facility] 06-02-2025 History of Presen t illness Narrative REASON FOR OFFICE VISIT: Video Visit via Real-time Synchronous Audiovisual Provider Location: [facility] AT [address] [phone] Patient Location: Patient's home Video Visit Consent [...] that there are some limitations compared to [id number] evaluations. The patient consented to the presence [...] pain. +FM. She is being followed at [facility] due to GDMA2. States she [...] 10/27/2018 Performed by Vince Ardon DO at [facility] mole removed from neck ALLERGIES: [...] TSH 0.495 01/31/2023 No results found for: [id number] Lab Results Component Value Date CREATININE 0.49 [...] and Type 2 diabetes were reviewed. Continue [facility] Recommended carbohydrate allocation ranges: 30-45 g [...] values to us weekly by e-mail to: [email or web address] or by fax to: [phone] TIME OF CONSULTATION: 15 minutes with the patient, >50% in discussion and counseling, coordination of care which was [id number], review of records and communication back to referring provider. FRACISCO Trejo 06/02/25 0942 documented in this encounter [facility] 05-31-2025 History of Presen t illness Narrative [...] Noted Benign essential hypertension in obstetric context ([facility]) 04/18/2023 Exposure to cat feces 04/18/2023 Gestational diabetes ([facility]) 04/18/2023 Nausea 04/18/2023 History of delivery 02/24/2023 Resolved Ambulatory Problems Diagnosis Date Noted No Resolved Ambulatory Problems Past Medical History: Diagnosis Date Chronic hypertension affecting ([facility]) Exposure to cat feces, sequela Former smoker Herpes exposure History of miscarriage Morbid obesity with BMI of 40.0-44.9, adult ([facility]) HISTORY PAST MEDICAL HISTORY SOCIAL HISTORY Past Medical History: Diagnosis Date Chronic hypertension affecting ([facility]) Exposure to cat feces, sequela Former smoker Gestational diabetes ([facility]) Herpes exposure History of miscarriage Morbid obesity with BMI of 40.0-44.9, adult ([facility]) Social History Tobacco Use Smoking status: Former [...] ASSESSMENT & PLAN ICD-10-CM 1. Third trimester ([facility]) Z34.93 POCT urinalysis dipstick manually resulted CULTURE, GROUP B STREP WITH SUSCEPTIBLITY CULTURE, GROUP B STREP WITH SUSCEPTIBLITY 2. 36 weeks gestation of ([facility]) Z3A.36 Return OB: Patient presents today for [...] of: JOANNE Hernandez documented in this encounter [facility] 05-24-2025 History of Presen [...] Noted Benign essential hypertension in obstetric context ([facility]) 04/18/2023 Exposure to cat feces 04/18/2023 Gestational diabetes ([facility]) 04/18/2023 Nausea 04/18/2023 History of delivery 02/24/2023 Resolved Ambulatory Problems Diagnosis Date Noted No Resolved Ambulatory Problems Past Medical History: Diagnosis Date Chronic hypertension affecting ([facility]) Exposure to cat feces, sequela Former smoker Herpes exposure History of miscarriage Morbid obesity with BMI of 40.0-44.9, adult ([facility]) HISTORY PAST MEDICAL HISTORY SOCIAL HISTORY Past Medical History: Diagnosis Date Chronic hypertension affecting ([facility]) Exposure to cat feces, sequela Former smoker Gestational diabetes ([facility]) Herpes exposure History of miscarriage Morbid obesity with BMI of 40.0-44.9, adult ([facility]) Social History Tobacco Use Smoking status: Former [...] ASSESSMENT & PLAN ICD-10-CM 1. Third trimester ([facility]) Z34.93 POCT urinalysis dipstick manually resulted 2. 35 weeks gestation of ([facility]) Z3A.35 3. induced hypertension, antepartum ([facility]) O13.9 CANCELED: Creatinine CANCELED: Protein, urine, 24 [...] of: JOANNE Hernandez documented in this encounter [facility] 05-24-2025 Miscellaneous Notes TOOLING INSPECTOR CALLED PATIENT. NO ANSWER. LEFT VM ASKING PATIENT TO EMAIL US HER BLOOD GLUCOSE LOGS SO THAT THEY CAN BE REVIEWED BY OUR DIABETES TEAM. documented in this encounter [facility] 05-24-2025 Telephone encounter Note TOOLING INSPECTOR CALLED PATIENT. NO ANSWER. LEFT VM ASKING PATIENT TO EMAIL US HER BLOOD GLUCOSE LOGS SO THAT THEY CAN BE REVIEWED BY OUR DIABETES TEAM. [facility] 05-17-2025 History of Presen t [...] Noted Benign essential hypertension in obstetric context ([facility]) 04/18/2023 Exposure to cat feces 04/18/2023 Gestational diabetes ([facility]) 04/18/2023 Nausea 04/18/2023 History of delivery 02/24/2023 Resolved Ambulatory Problems Diagnosis Date Noted No Resolved Ambulatory Problems Past Medical History: Diagnosis Date Chronic hypertension affecting ([facility]) Exposure to cat feces, sequela Former smoker Herpes exposure History of miscarriage Morbid obesity with BMI of 40.0-44.9, adult ([facility]) HISTORY PAST MEDICAL HISTORY SOCIAL HISTORY Past Medical History: Diagnosis Date Chronic hypertension affecting ([facility]) Exposure to cat feces, sequela Former smoker Gestational diabetes ([facility]) Herpes exposure History of miscarriage Morbid obesity with BMI of 40.0-44.9, adult ([facility]) Social History Tobacco Use Smoking status: Former [...] nursing note reviewed. Exam conducted with a overnight stocker present. Vitals: Estimated body mass index is 47.58 kg/m as calculated from the following: Height as of 09/09/23: 5' 7 . Weight as of this encounter: 303 lb 12.8 oz. BP: 126/78 Patient's last menstrual period was 09/17/2024. ASSESSMENT & PLAN ICD-10-CM 1. Third trimester ([facility]) Z34.93 2. 34 weeks gestation of ([facility]) Z3A.34 3. Gestational diabetes mellitus (GDM), antepartum, gestational diabetes method of control unspecified ([facility]) O24.419 Return OB: Patient presents today for [...] Nolan Cortes DO documented in this encounter [facility] 05-02-2025 History of Presen [...] Noted Benign essential hypertension in obstetric context ([facility]) 04/18/2023 Exposure to cat feces 04/18/2023 Gestational diabetes ([facility]) 04/18/2023 Nausea 04/18/2023 History of delivery 02/24/2023 Resolved Ambulatory Problems Diagnosis Date Noted No Resolved Ambulatory Problems Past Medical History: Diagnosis Date Chronic hypertension affecting ([facility]) Exposure to cat feces, sequela Former smoker Herpes exposure History of miscarriage Morbid obesity with BMI of 40.0-44.9, adult ([facility]) HISTORY PAST MEDICAL HISTORY SOCIAL HISTORY Past Medical History: Diagnosis Date Chronic hypertension affecting ([facility]) Exposure to cat feces, sequela Former smoker Gestational diabetes ([facility]) Herpes exposure History of miscarriage Morbid obesity with BMI of 40.0-44.9, adult ([facility]) Social History Tobacco Use Smoking status: Former [...] nursing note reviewed. Exam conducted with a overnight stocker present. Vitals: Estimated body mass index is 47.16 kg/m as calculated from the following: Height as of 09/09/23: 5' 7 . Weight as of this encounter: 301 lb 1.9 oz. BP: 130/82 Patient's last menstrual period was 09/17/2024. ASSESSMENT & PLAN ICD-10-CM 1. 32 weeks gestation of ([facility]) Z3A.32 POCT urinalysis dipstick manually resulted 2. Third trimester ([facility]) Z34.93 POCT urinalysis dipstick manually resulted Return [...] She is sending her glucose logs to [facility] for review. She has continued with NST / BPP. Orders Placed This Encounter Procedures POCT urinalysis dipstick manually resulted Follow Up: Patient is to return to office in 2 week for routine OB appointment. Documented by Blank Albrecht NP on behalf of: Blank Albrecht NP documented in this encounter [facility] 04-29-2025 Miscellaneous Notes TOOLING INSPECTOR CALLED THE PATIENT. NO ANSWER. LEFT ASKING THE PATIENT TO GIVE US A CALL TO SCHEDULE HER 4 WEEK FOLLOW UP APPOINTMENT AT THE REQUEST OF HER PROVIDER. LEFT OUR NUMBER AND INSTRUCTED HER TO SELECT OPTION 3 TO REACH ONE OF OUR SCHEDULERS. documented in this encounter [facility] [employer] 04-29-2025 Telephone encounter Note TOOLING INSPECTOR CALLED THE PATIENT. NO ANSWER. LEFT VM ASKING THE PATIENT TO GIVE US A CALL TO SCHEDULE HER 4 WEEK FOLLOW UP APPOINTMENT AT THE REQUEST OF HER PROVIDER. LEFT OUR NUMBER AND INSTRUCTED HER TO SELECT OPTION 3 TO REACH ONE OF OUR SCHEDULERS. 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 PAST OBSTETRICAL HISTORY: OB History 3 Para 1 Term 1 AB 1 Living 1 SAB 1 IAB Ectopic Multiple Live Births 1 SURGICAL HISTORY: Past Surgical History: Procedure Laterality Date ELBOW SURGERY Right LAPAROSCOPIC CHOLECYSTECTOMY N/A 10/27/2018 Performed by Vince Ardon DO at [facility] mole removed from neck [...] on 11/27/24 ---> [facility] - Baseline preeclampsia labs: CMP, Plts, urine [...] Delivery recommendations : - Recommend delivery at [id number] - reviewed with patient - Discuss delivery [...] values to us weekly by e-mail to: [email or web address] or by fax to: [phone] Kenya Acosta PA-C Maternal- Medicine Office phone: [phone] Kenya Acosta PA-C 04/19/25 1051 documented in this encounter [facility] 04-19-2025 Miscellaneous Notes TOOLING INSPECTOR CALLED PATIENT. NO ANSWER. LEFT VM FOR PATIENT TO EMAIL US HER BLOOD GLUCOSE LOG FOR HER UPCOMING APPOINTMENT WITH KENYA AT 10:30 AM documented in this encounter [facility] 04-19-2025 Telephone encounter Note TOOLING INSPECTOR CALLED PATIENT. NO ANSWER. LEFT VM FOR PATIENT TO EMAIL US HER BLOOD GLUCOSE LOG FOR HER UPCOMING APPOINTMENT WITH KENYA AT 10:30 AM [facility] 04-18-2025 History of Presen t illness Narrative [...] Morbid obesity with BMI of 40.0-44.9, adult ([facility]) HISTORY PAST MEDICAL HISTORY SOCIAL HISTORY Past Medical History: Diagnosis Date Chronic hypertension affecting Exposure to cat feces, sequela Former smoker Gestational diabetes Herpes exposure History of miscarriage Morbid obesity with BMI of 40.0-44.9, adult ([facility]) Social History Tobacco Use Smoking [...] nursing note reviewed. Exam conducted with a overnight stocker present. Vitals: Estimated body mass index is [...] week for routine OB appointment. Documented by Blank Albrecht NP on behalf of: Nolan Cortes DO documented in this encounter [facility] 04-05-2025 History of Presen [...] Morbid obesity with BMI of 40.0-44.9, adult ([facility]) HISTORY PAST MEDICAL HISTORY SOCIAL HISTORY Past Medical History: Diagnosis Date Chronic hypertension affecting Exposure to cat feces, sequela Former smoker Gestational diabetes Herpes exposure History of miscarriage Morbid obesity with BMI of 40.0-44.9, adult ([facility]) Social History Tobacco Use Smoking [...] nursing note reviewed. Exam conducted with a overnight stocker present. Vitals: Estimated body mass index is [...] Nolan Cortes DO documented in this encounter [facility] 03-23-2025 History of Presen t illness Narrative REASON FOR OFFICE VISIT: Video Visit via Real-time Synchronous Audiovisual Provider Location: [facility] AT [address] [phone] Patient Location: Patient's home Video [...] that there are some limitations compared to [id number] evaluations. The patient consented to the presence [...] chest pain. She is being followed at [facility] due to GDMA2. States she [...] 10/27/2018 Performed by Vince Ardon DO at [facility] mole removed from neck ALLERGIES: [...] TSH 0.495 01/31/2023 No results found for: [id number] Lab Results Component Value Date CREATININE 0.49 [...] baby. Little research has been done on fdc effects of Metformin exposure to the fetus. [...] 6% has the lowest risk for LGA SUMMARY/RECOMMENDATION: The following is a summary of [...] values to us weekly by e-mail to: [email or web address] or by fax to: [phone] TIME OF CONSULTATION: 25 minutes with the patient, >50% in discussion and counseling, coordination of care which was [id number], review of records and communication back to referring provider. FRACISCO Trejo 03/23/25 1058 [facility] Miscellaneous Notes TOOLING INSPECTOR CALLED PATIENT. NO ANSWER. LEFT VM FOR PATIENT TO EMAIL US HER BLOOD GLUCOSE LOG SO THAT WE WILL HAVE IT FOR HER APPOINTMENT TODAY. [facility] 03-23-2025 Telephone encounter Note TOOLING INSPECTOR CALLED PATIENT. NO ANSWER. LEFT VM FOR PATIENT TO EMAIL US HER BLOOD GLUCOSE LOG SO THAT WE WILL HAVE IT FOR HER APPOINTMENT TODAY. [employer] 03-16-2025 Miscellaneous Notes Summary: MFM Blood Glucose Log Called. No answer. Message left requesting more FBS numbers from this week as noted recently started Metformin this past Friday03/11/25. [facility] Tele[facility] encounter Note Summary: MFM Blood Glucose Log Called. No answer. Message left requesting more FBS numbers from this week as noted recently started Metformin this past Friday03/11/25. [employer] Work Phone: 03-14-2025 History of Presen t [...] Daily Blood Glucose Monitoring Suppl (Accu-Chek Guide Sc) w/Device kit USE TO CHECK BLOOD GLUCOSE [...] Morbid obesity with BMI of 40.0-44.9, adult ([facility]) HISTORY PAST MEDICAL HISTORY SOCIAL HISTORY Past Medical History: Diagnosis Date Chronic hypertension affecting Exposure to cat feces, sequela Former smoker Gestational diabetes Herpes exposure History of miscarriage Morbid obesity with BMI of 40.0-44.9, adult ([facility]) Social History Tobacco Use Smoking [...] nursing note reviewed. Exam conducted with a overnight stocker present. 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 PAST OBSTETRICAL HISTORY: OB History 3 Para 1 Term 1 AB 1 Living 1 SAB 1 IAB Ectopic Multiple Live Births 1 SURGICAL HISTORY: Past Surgical History: Procedure Laterality Date ELBOW SURGERY Right LAPAROSCOPIC CHOLECYSTECTOMY N/A 10/27/2018 Performed by Vince Ardon DO at [facility] EXPRESS SKIN SURGERY mole removed from neck ALLERGIES: No Known Allergies CURRENT MEDICATIONS: Current Outpatient Medications: aspirin 81 mg chewable tablet, Chew 1 tablet (81 mg total) and swallow in the morning., Disp: , Rfl: blood sugar diagnostic (glucose blood) strip, 1 strip by other route as needed for high blood sugar. ReliOn test strips, Disp: , Rfl: blood-glucose meter (RELION MICRO GLUCOSE MONITOR) [facility], by miscellaneous route., Disp: , Rfl: glyBURIDE [...] 02/24/2023), Disp: , Rfl: lancets (LANCETS,ULTRA THIN) [facility], by miscellaneous route. Ultra Thin, Disp: , [...] TSH 0.495 01/31/2023 No components found for: [facility] Lab Results Component Value Date CREATININE [...] more likely to fail compared to insulin. terminal carman data on children whose mothers took oral [...] Delivery recommendations : - Recommend delivery at [id number]-79s3m - reviewed with patient - Discuss delivery [...] values to us weekly by e-mail to: [email or web address] or by fax to: [phone] Kenya Acosta PA-C Maternal- Medicine Office phone: [phone] Kenya Acosta PA-C 03/08/251644 Headache/epigastric pain/blurry vision/swelling? no Cramping/contractions? no Abnormal vaginal discharge? no Spotting/vaginal bleeding? Loss or gush of fluid like your water may have broken? no Do you have cats at home? yes Do you change the litter box (reason: risk of toxoplasmosis)? no Genetic testing done this here or other office? yes/low risk/ male Have you been seen here at [facility] in a previous ? Yes/with daughter Recent ER visits or hospitalizations? no Bring blood sugar log or meter with you today? (Please bring them with you for every visit at [facility]) yes Flu vaccine (Sep-January)? Any concerns that you would like me to mention to the provider today? documented in this encounter [facility] 03-08-2025 Miscellaneous Notes Disclaimer: This [...] legal medical record. documented in this encounter [facility] 03-08-2025 Progress note Formatting of [...] a part of the legal medical record. [facility] 03-08-2025 Miscellaneous Notes Railway Switch Operator called patient. No answer. Left voicemail for the patient to email us her blood glucose logs for her upcoming appointment today with Kenya Acosta. Also stated if she had any questions she could give us a call at [phone]. documented in this encounter [facility] 03-08-2025 Telephone encounter Note Railway Switch Operator called patient. No answer. Left voicemail for the patient to email us her blood glucose logs for her upcoming appointment today with Kenya Acosta. Also stated if she had any questions she could give us a call at [phone]. [facility] 03-04-2025 Miscellaneous Notes Patient returned call, discussed all but 1 fasting is elevated which meets criteria for a medication start appointment. Patient states she was on insulin with last and expected this to happen again. Transferred to scheduling. documented in this encounter [facility] 03-04-2025 Telephone encounter Note Patient returned call, discussed all but 1 fasting is elevated which meets criteria for a medication start appointment. Patient states she was on insulin with last and expected this to happen again. Transferred to scheduling. [facility] 03-02-2025 Miscellaneous Notes Called and left voicemail regarding blood sugar log with 6 fasting elevations. Notified patient this does meet criteria to come in and speak to a provider regarding medication start. Number for scheduling provided. Encouraged patient to call diabetes line with any questions. documented in this encounter [facility] 03-02-2025 Telephone encounter Note Called and left voicemail regarding blood sugar log with 6 fasting elevations. Notified patient this does meet criteria to come in and speak to a provider regarding medication start. Number for scheduling provided. Encouraged patient to call diabetes line with any questions. [facility] 02-24-2025 Miscellaneous Notes Called regarding blood sugar and food logs from 02/21/2025-02/20/2025. All her fasting blood sugars are elevated. Asked her to return my call at [phone]. Charlene called back. Currently doing peanut butter [...] blood sugars weekly. documented in this encounter [facility] 02-24-2025 Telephone encounter Note Called regarding blood sugar and food logs from 02/21/2025-02/20/2025. All her fasting blood sugars are elevated. Asked her to return my call at [phone]. Charlene called back. Currently doing peanut butter [...] Continue to send in blood sugars weekly. [employer] Work Phone: 02-21-2025 History of Presen t [...] Morbid obesity with BMI of 40.0-44.9, adult ([facility]) HISTORY PAST MEDICAL HISTORY SOCIAL HISTORY Past Medical History: Diagnosis Date Chronic hypertension affecting Exposure to cat feces, sequela Former smoker Gestational diabetes Herpes exposure History of miscarriage Morbid obesity with BMI of 40.0-44.9, adult ([facility]) Social History Tobacco Use Smoking [...] nursing note reviewed. Exam conducted with a overnight stocker present. Vitals: Estimated body mass index is [...] Nolan Cortes DO documented in this encounter [facility] 02-16-2025 Group counseling note [...] Face to face time was 75 minutes. [employer] Work Phone: 02-16-2025 Miscellaneous Notes Patient: Charlene [...] was 75 minutes. documented in this encounter [facility] 02-07-2025 History of Presen t illness Narrative PAPER CHART ABSTRACTED FOR DIABETIC ED AT [facility]. documented in this encounter [facility] 12-28-2024 History of Presen t [...] Morbid obesity with BMI of 40.0-44.9, adult ([facility]) HISTORY PAST MEDICAL HISTORY SOCIAL HISTORY Past Medical History: Diagnosis Date Chronic hypertension affecting Exposure to cat feces, sequela Former smoker Gestational diabetes Herpes exposure History of miscarriage Morbid obesity with BMI of 40.0-44.9, adult ([facility]) Social History Tobacco Use Smoking [...] nursing note reviewed. Exam conducted with a overnight stocker present. Vitals: Estimated body mass index is [...] or undercooked meat, and [facility]. Patient has been consulted regarding any further do's and don'ts of . Patient voiced understanding and all questions and concerns were answered. Orders Placed This Encounter Procedures POCT urinalysis dipstick manually resulted Follow Up: Patient is to return in 4 weeks for routine OB appointment. Documented by Grace Arita LPN on behalf of: Nolan Cortes DO documented in this encounter [facility] 11-26-2024 History of Presen [...] Morbid obesity with BMI of 40.0-44.9, adult ([facility]) Family History Problem Relation Name [...] or undercooked meat, and stay away from [facility]. Patient has also been advised to not [...] Danay Ortega LPN documented in this encounter [facility] Healthcare Evaluation note Diagnosis Missed menses , [...] education documented in this encounter [facility]* Diagnosis Second trimester state, incidental 22 weeks gestation of documented in this encounter [facility]* Diagnosis Gestational diabetes mellitus (GDM) in second trimester controlled on oral hypoglycemic drug- Primary documented in this encounter [facility]* Diagnosis Second trimester state, incidental 25 weeks gestation of documented in this encounter [facility]* Diagnosis Gestational diabetes mellitus (GDM) in second trimester controlled on oral hypoglycemic drug documented in this encounter [facility]* Diagnosis Third trimester [...] Primary documented in this encounter [facility]* Diagnosis 32 weeks [...] encounter [facility]* Diagnosis Third trimester ([facility]) state, incidental 36 weeks gestation of ([facility]) documented in this encounter [facility]* Diagnosis Gestational diabetes mellitus (GDM) in third trimester controlled on oral hypoglycemic drug- Primary documented in this encounter [facility]* Diagnosis Throbbing headache Headache Encounter for visit ([facility]) documented [facility] this encounter [facility]* Diagnosis Encounter for visit ([facility]) Blood pressure check Screening for hypertension documented in this encounter [facility]* Diagnosis Blood pressure check Screening for hypertension documented in this encounter [facility]* Diagnosis BP check Screening for hypertension documented in this encounter [facility]* Diagnosis Benign essential hypertension in obstetric context, antepartum ([facility])- Primary documented in this encounter [facility]* Diagnosis 6 weeks follow-up ([facility]) Spontaneous vaginal delivery ([facility]) Normal delivery documented in this encounter [facility] HealthcareInstructionsNot on filedocumented in this encounterProMedims Health SystemInstructionsNot on filedocumented in this encounterProMedims Health SystemInstructionsNot on filedocumented in this encounterProMedica Health SystemInstructionsNot on filedocumented in this encounter[facility] Summary Purpose Family History No Family History Records FoundNo Family History Records FoundNo Family History Records FoundNo Family History Records Found Advance Directives No Advanced Directives Records FoundNo Advanced Directives Records FoundNo Advanced Directives Records FoundNo Advanced Directives Records Found Additional Source Comments INFORMATION SOURCE (unrecogn ized section and content) DATE CREATED AUTHOR 04/18/2023 [facility] DATE CREATED AUTHOR AUTHOR'S ORGANIZ ATION 06/03/2025 [facility] DATE CREATED AUTHOR AUTHOR'S ORGANIZ ATION 06/28/2025 [facility] DATE CREATED AUTHOR AUTHOR'S ORGANIZ ATION 07/16/2025 [facility] EPIC Reason for Visit (unrecogniz ed section and content) Reason Comments Amenorrhea Reason Comments Routine Visit Reason Comments Gestational Diabetes Specialty Diagnoses / Procedures Referred By Janay t Referred To Contact Maternal and Medicine Diagnoses Encounter for diabetes education Nolan Cortes, DO [address] [place] [address] [place] [address] Phone: tel: fax: Maternal- Medicine at [facility] [address] [place] [address] Phone: tel: fax: Referral ID Status Reason Start Date Expiration Date Visits Requested Visits Authorized [id number] Pending Review Specialty Services Required 02/03/2025 02/03/2026 1 1 Reason Comments Med Start-GDM Reason Comments Blood Pressure Check Reason Comments Follow-up Blood Pressure Check Reason Comments Care Pt present today for a 6 week post visit. Pt delivered on 06/03/2025 vaginally. Care Teams (unrecognized sec tion and content) Solutions Sales Consultant Relationship Specialty Start Date End Date Melony Azul MD PCP - General Pediatrics 06/23/18 Solutions Sales Consultant Relationship Specialty Start Date End Date Melony Azul MD PCP - General Pediatrics 06/23/18 Solutions Sales Consultant Relationship Specialty Start Date End Date Melony Azul MD PCP - General Pediatrics 06/23/18 Solutions Sales Consultant Relationship Specialty Start Date End Date Melony Azul MD PCP - General Pediatrics 06/23/18 Solutions Sales Consultant Relationship Specialty Start Date End Date Melony Azul MD PCP - General Pediatrics 06/23/18 Solutions Sales Consultant Relationship Specialty Start Date End Date Melony Azul MD PCP - General Pediatrics 06/23/18 Solutions Sales Consultant Relationship Specialty Start Date End Date Melony [...] BE BASED ON THE PRIMARY CLINICAL RECORDS. [facility] [employer] [facility]. provides no warranty or guarantee of the accuracy or completeness of information in this document.
--- NOTE | 2025-08-26 15:40 | PC.NURSE ---
Charlene and 12 week old Dain arrive post oral revision with Dr Crabtree pediatric dentist. Procedure occurred 08/22/2025 with no difficulties. Mom reports upper lip tie and tongue tie both were revised. Baby is alert, interested in new area, coos and smiles at this selling underwriter when engages baby. Upper lip revision healing well, no evidence of re-attachment noted. Mom reports stretches done 4 x daily. Infant tongue is healing as well. engaged in suck exercises and demo for mom during exam. has healing wound under tongue, whimpers with tongue stretches. Tug of war attempted, poor curl and strength of latch. Demo of tug of war for mom. Lateralizes tongue left and right , upper and lower with moderate movement of tongue. Reaching up to gum line more difficult. Lip tickles and cheek massage shown. Baby receptive to all. Infant weighed and is up 13-9, weight 9-13. Mother reports baby is able to finish feed in 15-30 minutes as before was taking 40-60 minutes. Baby less gassy, burps well, continues to spit up after feeds, but is not as much volume Mom bottle feeds baby/formula and noted to continue to make clicking noises intermittently, does stop with chin support. Minimal leaking from mouth/lips during feeding. Baby relaxed and calm with feeds. . Mother given handout for exercises, to do 2-3 prior to each feed and choose different exercises with next feed. Mother states confidence in ability to complete exercises. Chooses to return 09/02/2025 for further assistance if needed. Home now, no questions.
== END 2025-08-26 16:03 | disposition home or self-care (01) ==
LOC: FBCO 08:03
PROVIDERS: Visit Provider Obstetrics & Gynecology
DX: Z39.1 Encounter for care and examination of lactating mother (principal)

== ENCOUNTER 2025-09-02 10:05 | Outpatient (OUT) | payer BC, SELFPAY ==
--- OUTSIDE RECORDS SUMMARY | 2025-09-02 10:10 | XMS_ITS | Clinical Summary ---
Demographics Address [address] [place] [address] Mobile Phone Home Phone Email Address Email Address Preferred Language Yemeni Marital Status Jainism Affiliation Unknown Race White Ethnic Group Not or Lati no Author Organization [employer] Address [id number] [place] [address] Support Name Relationship Address Phone Dariusz Purvis Emergency Contact [address] [place] [address] Sravani Villasenor Personal Relationship [address] [place] [address] Laura Cope Personal Relationship Unknown [phone] Care Team Providers Care Commercial Center Manager Name Role Phone Eli Azul MD Primary Care Provider + Allergies No known active allergies Medications MedicationSigDispense QuantityRefillsLast FilledStart DateEnd DateStatus blood sugar diagnostic (glucose blood) strip 1 strip by other route as needed for high blood sugar. ReliOn test stripsActive blood-glucose meter (RELION MICRO GLUCOSE MONITOR) misc by miscellaneous route.Active lancets (LANCETS,ULTRA THIN) misc by miscellaneous route. Ultra ThinActive vit calc,iron,folic ( VITAMIN ORAL) Take 1 tablet by mouth in the morning.Active aspirin 81 mg chewable tablet Chew 1 tablet (81 mg total) and swallow in the morning.Active ondansetron ODT (ZOFRAN-ODT) 4 mg disintegrating tablet Dissolve 1 tablet (4 mg total) on tongue every 8 (eight) hours as needed for nausea for up to 10 doses. 10 tablet 1Active pen needle, diabetic (BD ULTRA-FINE SILVIA PEN NEEDLE) 32 gauge x 5/32 needle Use a new needle with each injection 100 each 5Active metFORMIN XR (GLUCOPHAGE XR) 500 mg 24 hr tablet Indications:Gestational diabetes mellitus (GDM) in second trimester controlled on oral hypoglycemic drugTake 500mg in am with breakfast and 1000 mg in pm with dinner 60 tablet 5Active Active Problems ProblemNoted DateDiagnosed DateGestational diabetes mellitus (GDM) in third trimester controlled on oral hypoglycemic drug03/23/2025History of ibpgeowl87/17/2023Estimated Date of VburvexfJdlimqmxTcf23/15/2025ased on last menstrual period of 09/17/2024 Encounters DateTypeDepartmentCare CghlSuihslgobik14/24/2025 9:30 AM EDTTelemedicine Maternal- Medicine at [facility] [address] [place] [id number] Iman [address], GABINO-PREMA Gestational diabetes mellitus (GDM) in third trimester controlled on oral hypoglycemic drug (Primary Dx)06/02/2025Travelfrom Last 3 Months Immunizations ImmunizationAdministration DatesNext DueRho (D) Immune Dtbwiwzs00/16/2021 Family History Medical HistoryRelationNameCommentsColon cancerMaternal GrandfatherDiabetes MotherHypertensionMotherRelationNameStatusCommentsFatherAliveMaternal GrandfatherDeceasedMotherAlive Social History Tobacco UseTypesPacks/DayYears UsedDateSmoking Tobacco: Former Vaping/E-cigarettesSmokeless Tobacco: Never Tobacco Cessation:Counseling Given: Not Answered Alcohol UseStandard Drinks/WeekCommentsNot Currently0 (1 standard drink = 0.6 oz pure alcohol)rareChildcareAnswerDate SsflgblgVtfbwhbpdPhgdjmb05/10/2019 EmploymentAnswerDate YxpncqnlFlcishohgyDspthet30/10/2019Hunger ScreeningAnswer Date RecordedWithin the past 12 months we worried whether our food would run out before we got money to buy more.Never True03/08/2025Within the past 12 months the food we bought just didn't last and we didn't have money to get more.Never True03/08/2025Purpose - LifeAnswerDate RecordedPurpose and direction in life Muanaoa3012/21/2020Estimated Date of CmwlbefaElmknvokBpv83/15/2025Based on last menstrual period of 09/17/2024Sex and Gender InformationValueDate Recorded Sex Assigned at CfihcRmrzwn63/17/2023 5:56 PM EDTLegal NudIkmmgr12/06/2015 11:59 AM EDTGender KzozoyigHzwrqo18/17/2023 5:56 PM EDTSexual OrientationStraight 02/24/2023 5:56 PM EDT Last Filed Vital Signs Vital SignReadingTime TakenCommentsBlood Oblemilg270/6604 1:08 PM EDT Nimsh621503/08/2025 1:08 PM TUVFnmhxyduapg03.9 ??C (98.5 ??F)08/25/2021 8:21 PM EDTRespiratory Vleu932308/25/2021 11:29 PM EDTOxygen Ukebkgkliq32%08/25/2021 11:29 PM EDTInhaled Oxygen Concentration--Sxggzz011.4 kg (291 lb 12.8 oz)03/08/2025 1:08 PM BHVBnbqcx422.2 cm (5' 7 )08/25/2021 8:21 PM EDTBody Mass Index45.7 08/25/2021 8:21 PM EDT Plan of Treatment Health MaintenanceDue DateLast DoneCommentsDepression Jzpwigsrf99/15/2005Tobacco Eiaishvxg91/15/2005DTaP,Tdap and Td Vaccines (1 - Tdap)2011Influenza Mdjszvi29/3Pap Smear/dult BMI Screening Medical Devices Not on file Insurance * Guarantor: Charlene Purvis TypeRelation to PatientDate of PhoneBilling AddressPersonal/OvvjjuBtqa54/15/1991 [address] [address] Care Teams Team MemberRelationshipSpecialtyStart DateEnd Date Eli Azul MD PCP - GeneralPediatrics06/23/18
--- OUTSIDE RECORDS SUMMARY | 2025-09-02 10:10 | XMS_ITS | Clinical Summary ---
Author Organization [facility] Address [address] [place] [address] Care Team Providers Care Manager Research And Development Name Role Phone Unavailable Primary Care Provider Unavailabl e Allergies No known active allergies Medications MedicationSigDispense QuantityRefillsLast FilledStart DateEnd DateStatus furosemide (Lasix) 20 mg tablet Take 20 mg by mouth in the morning.5Active labetalol (Normodyne) 100 mg tablet Take 200 mg by mouth 3 times a day.5Active ferrous sulfate 325 (65 Fe) MG tablet Take 325 mg by mouth in the morning.5Active ascorbic acid (Vitamin C) 500 mg ER capsule Take 500 mg by mouth in the morning.Active Active Problems ProblemNoted DateDiagnosed DateGestational diabetes mellitus (GDM) in third trimester controlled on oral hypoglycemic drug03/23/2025enign essential hypertension in obstetric qxdobhh3604/18/2023Exposure to cat feces04/18/2023 Gestational awbgvjdt61/09/0599Kcydww35/09/2023History of delivery 02/24/2023 Encounters DateTypeDepartmentCare XitnJjgdymuxsmz87/18/2025 1:00 PM [facility]TOffice [facility] [address] [place] [address] Shorty Maciel MD LVH (left ventricular hypertrophy) (Primary Dx); Elevated brain natriuretic peptide (BNP) level06/27/2025Orders Only [facility] [address] [place] [address] Lia Bain MA from Last 3 Months Family History Medical HistoryRelationNameCommentsHeart murmurMotherRelationNameStatusComments FatherAliveMotherAlive Social History Tobacco UseTypesPacks/DayYears UsedDateSmoking Tobacco: FormerCigarettes Smokeless Tobacco: Never Tobacco Cessation:Counseling Given: Not Answered Alcohol UseStandard Drinks/WeekCommentsYes0 (1 standard drink = 0.6 oz pure alcohol)occasionalUT Safety & EnvironmentAnswerDate RecordedFear of Current or Ex-PartnerNot on file01/01/2024Emotionally AbusedNot on file01/01/2024hysically AbusedNot on file01/01/2024Sexually AbusedNot on file01/01/2024hysically or Sexually AbusedNot on file01/01/2024CommentsNoSex and Gender Information ValueDate RecordedSex Assigned at AywnzKyczoj65/13/2025 2:55 PM EDTLegal Sex Ujqutn4405/09/2022 12:40 AM EDTGender SlhkzehyNuaudn50/13/2025 2:55 PM EDTSexual OrientationHeterosexual or Icfbujif30/13/2025 2:55 PM EDT Last Filed Vital Signs Vital SignReadingTime TakenCommentsBlood Utixtfkl549/8206/27/2025 1:05 PM EDT Hazhd757406/27/2025 1:05 PM EDTTemperature--Respiratory Rate--Oxygen Saturation 100%06/27/2025 1:05 PM EDTInhaled Oxygen Concentration--Lqztcs507 kg (284 lb) 06/27/2025 1:05 PM HXBNseezb814.2 cm (5' 7 )06/27/2025 1:05 PM EDTBody Mass Index44.48006/27/2025 1:05 PM EDT Plan of Treatment Health MaintenanceDue DateLast DoneCommentsDepression Gcvgftdut13/15/2005 Varicella Vaccines (1 of 2 - 13+ 2-dose series)2005Pap Smear2013 Adult Ptsdemo8711/24/2014HPV Vaccines (1 - 3-dose SCDM series)2019Cervical Cancer Tzvkyzyjq83/15/2023HPV/Dkqqew733COVID-19 Vaccine (2024- season)2025Influenza Vaccine (#1)2025Zoster Vaccines (1 of 2) 2042HIB VaccinesAged OutNo longer eligible based on patient's age to complete this topicIPV VaccinesAged OutNo longer eligible based on patient's age to complete this topicMeningococcal B VaccineAged OutNo longer eligible based on patient's age to complete this topicMeningococcal VaccineAged OutNo longer eligible based on patient's age to complete this topicPneumococcal Vaccine: Pediatrics (0 to 5 Years) and At-Risk Patients (6 to 64 Years)Aged OutNo longer eligible based on patient's age to complete this topicRotavirus VaccinesAged Out No longer eligible based on patient's age to complete this topic Procedures Procedure NamePriorityDate/TimeAssociated DiagnosisCommentsECG 12 LEAD UNIT ECELLMKHHSgyrbcq64/18/2025 1:25 PM EDT LVH (left ventricular hypertrophy) from Last 3 Months Results * ECG 12 lead unit performed (06/27/2025 1:25 PM EDT)Specimen (Source)Anatomical Location / LateralityCollection Method / VolumeCollection TimeReceived Time Narrative Authorizing ProviderResult TypeResult StatusGeorge Raheem DEVLINECG ORDERABLES Final Result from Last 3 Months Insurance MemberSubscriberPlan / Payer (Effective 2021-Present)Name:Charlene Purvis Relation to Subscriber:SelfName:Charlene Purvis Payer ID:[id number] (NAIC) Type:Not on file Address: [address] [place] [id number]
--- OUTSIDE RECORDS SUMMARY | 2025-09-02 10:11 | XMS_ITS | Encounter Summary ---
Author Organization [facility] Address [address] [place] [address] Care Team Providers Care Deputy Fire Marshal Name Role Phone Unavailable Primary Care Provider Unavailabl e Encounter Details DateTypeDepartmentCare Team (Latest Contact Info)Qvtffonbmjl95/23/2025Telephone [facility] [address] [place] [address] Margo Lozoya MA Social History Tobacco UseTypesPacks/DayYears UsedDateSmoking Tobacco: FormerCigarettesAlcohol UseStandard Drinks/WeekCommentsNever0 (1 standard drink = 0.6 oz pure alcohol) CommentsNoSex and Gender InformationValueDate RecordedSex Assigned at BirthNot on fileLegal XumEhqvpf84/15/2023 11:46 PM EDTGender IdentityNot on file Sexual OrientationNot on filedocumented as of this encounter Miscellaneous Notes * Telephone Encounter - Margo Lozoya MA - 09/01/2025 4:11 PM EDT Pt called in requesting medication for weight loss. Advised pt she would need to be seen in office to discuss option. PVU and transferred to front office staff for scheduling. documented in this encounter Plan of Treatment DateTypeDepartmentCare Team (Latest Contact Info)Btyvhcyujch39/12/2025 10:30 AM ESTOffice Visit [facility] [address] [place] [address] Armida Albrecht NP [address] [place] [address] [place] [address] documented as of this encounter Visit Diagnoses Not on filedocumented in this encounter
--- OUTSIDE RECORDS SUMMARY | 2025-09-02 10:11 | XMS_ITS | Clinical Summary ---
Author Organization [facility] Address [address] [place] [address] Care Team Providers Care Residential Leasing Agent Name Role Phone Unavailable Primary Care Provider Unavailabl e Allergies No known active allergies Medications MedicationSigDispense QuantityRefillsLast FilledStart DateEnd DateStatus FeroSul 325 (65 Fe) MG tablet Take 325 mg by mouth in the morning. Take with meals.5Active ascorbic acid (Vitamin C) 500 MG ER capsule Take 500 mg by mouth DailyActive labetalol (Normodyne) 100 MG tablet Indications:Encounter for visit ([facility]),Blood pressure checkTake 2 tablets (200 mg) by mouth in the morning and 2 tablets (200 mg) in the evening and 2 tablets(200 mg) before bedtime. 180 tablet 5Active Active Problems ProblemNoted DateDiagnosed DateBenign essential hypertension in obstetric context ([facility])04/18/2023Exposure to cat feces04/18/2023estational diabetes ([facility])04/18/20230222Slkfzm88/09/2023History of pzhpzerm68/17/2023 Encounters DateTypeDepartmentCare QgkwJysokoelrvt44/23/2025[place] [address] Margo Lozoya MA 07/14/2025 1:30 [place] [address] Armida Albrecht NP 6 weeks follow-up ([facility]); Spontaneous vaginal delivery ([facility])07/07/2025 1:50 PM EDTPostpartum Visit [facility] [address] [facility] [address] Kristan Fish PA Benign essential hypertension in obstetric context, antepartum ([facility]) (Primary Dx)07/07/20255435Toizqx77/22/0425Wzlvva02/21/2025 10:50 AM EDTPostpartum Visit [facility] [place] [facility] [address] [facility] [address] Kristan Fish PA BP check06/23/2025 9:30 AM EDTPostpartum Visit [facility] [place] [facility] [address] [facility] [address] Armida Albrecht, SOPHIA Blood pressure check06/16/2025 9:20 AM EDTPostpartum Visit [facility] [address] [place] [address] Thomas Cortes, Encounter for visit ([facility]); Blood pressure check06/16/2025Telephone [facility] [place] [facility] [address] [facility] [address] Margo Lozoya MA 06/10/2025bstract [facility] [address] [place] [address] Thomas Cortes, DO 06/08/2025bstract [facility] [place] [facility] [address] [facility] [place] [address] Thomas Cortes, DO 06/08/2025bstract [facility] [address] [facility] [place] [address] Thomas Cortes, DO 5Clinisync Result Encounter NOMS External Department Unsolicited Thomas Cortes, DO 5Clinisync Result Encounter NOMS External Department Unsolicited Thomas Cortes, DO 06/07/2025 9:40 AM EDTPostpartum Visit [facility] [place] [facility] [address] [facility] [place] [address] Thomas Cortes, Throbbing headache; Encounter for visit ([facility])06/07/2025bstract [facility] [address] [facility] [place] [address] Thomas Cortes, DO 06/07/2025linisync Result Encounter NOMS External Department Unsolicited Thomas Cortes, DO 06/05/2025bstract [facility] [address] [facility] [place] [id number] Latonya Isidro [facility] 06/04/2025linisync Result Encounter NOMS External Department Unsolicited Thomas Cortes, DO 06/03/2025bstract [facility] [place] [facility] [address] [facility] [place] [address] Thomas Cortes, DO 06/03/2025bstract [facility] [place] [facility] [address] [facility] [place] [address] Thomas Cortes, DO 06/03/2025linisync Result Encounter NOMS External Department Unsolicited Thomas Cortes, DO 06/02/2025linisync Result Encounter NOMS External Department Unsolicited Thomas Cortes, DO from Last 3 Months Family History Medical HistoryRelationNameCommentsNo Known ProblemsBrotherDiabetesMother multiple gestation: family members in generalOthermutiple gestationOtherNo Known ProblemsSisterRelationNameStatusCommentsBrotherFatherAliveMotherAliveOtherSister Social History Tobacco UseTypesPacks/DayYears UsedDateSmoking Tobacco: FormerCigarettes Tobacco Cessation:Counseling Given: Not Answered Alcohol UseStandard Drinks/WeekCommentsNever0 (1 standard drink = 0.6 oz pure alcohol)CommentsNoSex and Gender InformationValueDate RecordedSex Assigned at BirthNot on fileLegal QrcUfotsh83/15/2023 11:46 PM EDTGender IdentityNot on fileSexual OrientationNot on file Last Filed Vital Signs Vital SignReadingTime TakenCommentsBlood Tgkxtucz838/7809 1:43 PM EDT Pulse--Temperature--Respiratory Rate--Oxygen Saturation--Inhaled Oxygen Concentration--Ptynoq647 kg (284 lb)07/14/2025 1:43 PM ZVODdyuae995.2 cm (5' 7 ) 07/14/2025 1:43 PM EDTBody Mass Index44.4809 1:43 PM EDT Plan of Treatment DateTypeDepartmentCare Team (Latest Contact Info)Fsgjrackjub50/12/2025 10:30 AM ESTOffice Visit [facility] [facility] [address] [facility] [place] [address] Armida Albrecht, SOPHIA [address] [facility] [place] [address] Procedures Procedure NamePriorityDate/TimeAssociated DiagnosisCommentsCCF CMP (CMP) (FOR REMOTE [facility] USE)Ulsmwow4806/08/2025 11:[address] ANGIOGRAM CHEST06/08/2025 9:40 AM EDT ALL CBC WITH AUTO KYBNQujtkhq59/30/2025 6:43 AM EDT CCF JBNHmazmfc96/29/2025 11:33 AM EDT C[facility] VBQGvppltq04/29/2025 11:33 AM EDT ALL URIC EWZVZsrhcoe84/29/2025 11:33 AM EDT TBH PDIIQCYGPEGymlvpk30/29/2025 11:33 AM EDT ALL OISOsqmxez40/29/2025 11:33 AM EDT ALL CBC WITH AUTO MYAXJbnhzvp67/29/2025 11:33 AM EDT ALL CBC WITH AUTO KYAYImppiox59/26/2025 6:40 AM EDT ALL CBC WITH AUTO XZMJPhbhtzt86/25/2025 8:15 AM EDT TBH DRUG SCREEN RAPID (URINE)Fjoeyaf2006/02/2025 4:35 PM EDT TBH URINE T PROTEIN CREAT DHRAPThnatko93/24/2025 4:35 PM EDT MHPT HSJGFKOWYOGbdtrau26/24/2025 3:50 PM EDT CCF OAHWDjxoaxt05/24/2025 3:50 PM EDT SRMCOH PROTHROMBIN TIME INR W/O TEBWKyuayqw53/24/2025 3:50 PM EDT CCF PVAVcjfxhl45/24/2025 3:50 PM EDT CCF XJOBlkguro31/24/2025 3:50 PM EDT ALL URIC KAVVTfgalzp28/24/2025 3:50 PM EDT TBH YXJUWKQHJZIvmqqzy63/24/2025 3:50 PM EDT ALL RJDTcbzxdj34/24/2025 3:50 PM EDT ALL CBC WITH AUTO THBNWntwjov64/24/2025 3:50 PM EDT from Last 3 Months Results * (ABNORMAL) [facility] CMP (CMP) (FOR REMOTE [facility] USE) (06/08/2025 11:47 AM EDT) ComponentValueRef RangeTest MethodAnalysis TimePerformed AtPathologist KurmgnjooWQNQRH436625 - 145 mmol/LTBHPOTASSIUM3.3(L)3.5 - 5.1 mmol/LTBH PVNZAYHH67640 - 107 mmol/LTBHCARBON ZJABMQT70.721.0 - 32.0 mmol/LTBHANION GAP 15.0FPZVLNHPYF258(H)74 - 106 mg/dLTBHBLOOD UREA NITROGEN7.07.0 - 18.0 mg/dLTBH CREATININE0.710.55 - 1.02 mg/dLTBHTBH EGFR-AF MAURITIAN>60>=60 mL/min/1.73m 2 TBHTBH EGFR-NON AF MAURITIAN>60>=60 mL/min/1.73m 2TBHBUN CREATININE RATIO9.9TBH CALCIUM8.1(L)8.5 - 10.1 mg/dLTBHBILIRUBIN TOTAL0.30.2 - 1.0 mg/dLTBHASPARTATE AMINO FUCDCXJJHRI5484 - 37 U/LTBHALANINE SECNTTPOVEKWWONJ7394 - 59 U/LTBH ALKALINE KOQLKGGJRQP23843 - 116 U/LTBHTOTAL PROTEIN5.7(L)6.4 - 8.2 g/dLTBH ALBUMIN LEVEL2.1(L)3.4 - 5.0 g/dLTBHGLOBULIN3.6g/dLTBHALBUMIN GLOBULIN RATIO 0.6TBHSpecimen (Source)Anatomical Location / LateralityCollection Method / VolumeCollection TimeReceived Time06/08/2025 11:47 AM EDT06/08/2025 11:50 AM EDT Narrative [facility] - 06/08/2025 12:18 PM EDT Authorizing ProviderResult TypeResult StatusCorey Sebastian DOCLINISYNCFinal Result Performing OrganizationAddressCity/State/ZIP CodePhone Number CLINISYNC [facility] * CT angiogram chest (06/08/2025 9:40 AM EDT)Anatomical RegionLateralityModality Body, ChestComputed TomographySpecimen (Source)Anatomical Location / LateralityCollection Method / VolumeCollection TimeReceived Time06/08/2025 9:40 AM EDT Narrative 06/08/2025 9:42 AM EDT [facility] ?[address] ? [place] [address] ? CT Scan Report ? Signed ? Patient: CANDE,CHARLENE L ?MR#: [id number] ?? : 1990 ?Acct:[id number] ?? Age/Sex: 34 / F ?ADM Date: ?? Loc: [facility] ??252-1 ? Attending Dr: Thomas Cortes D.O. ? Ordering Physician: Thomas Cortes D.O. ?? Date of Service: 06/08/25 ?? Procedure(s): CT angio chest ?? Accession Number(s): [id number] ? cc: Physician,Non-Staff M.D. ? [facility] ? [address] ? [place] [address] ? Patient Name: ?? CHARLENE PURVIS ? MRN: [facility]:[id number] ? date: 1990 ?Sex: F ?? Assigned Patient Location: FB ?? Current Patient Location: FB ?? Accession/Order Number: [id number] ?? Exam Date: 06/08/2025 ??09:37 ?Report Date: 06/08/2025 ??09:40 ? At the request of: ?? THOMAS ??SEBASTIAN ??DO ? Procedure: ??CT angio chest ? CT ANGIOGRAM OF THE CHEST, PULMONARY EMBOLISM PROTOCOL: ? CLINICAL INFORMATION: Wheezing. ??6 stable post . ??Shortness of breath ?? with exertion for one day. ? COMPARISON: None ? TECHNIQUE: ??Following intravenous injection of contrast CT scans of the chest ?? were obtained using pulmonary embolism protocol. ??Coronal and sagittal ?? reconstructed images, as well as volume rendered CT pulmonary angiographic ?? images were also submitted.The CT exam was performed using one or more of the ?? following dose reduction techniques: Automated exposure control, adjustment of ?? the MA and/or Kv according to patient size, or use of the iterative ?? reconstruction technique. ? FINDINGS: ? Pulmonary Vasculature: Contrast bolus is suboptimal for evaluation of ?? segmental and subsegmental pulmonary embolism. ??No central pulmonary embolism ?? is noted. ??Pulmonary trunk appears nondilated. ? Mediastinum : Thoracic aorta is normal in caliber. ??No pericardial effusion. ? No lymphadenopathy. ??The esophagus is grossly unremarkable. ? Lungs: ??Small bilateral pleural effusions with bibasilar atelectasis, ?? groundglass and smooth septal thickening. ??No pneumothorax. ? Upper abdomen: No acute findings ? Soft tissue/bones: Soft tissues surrounding the chest wall demonstrate no ?? acute findings. ??Osseous structures demonstrate degenerative change. ? CT/CT angio chest ?? IMPRESSION: ? SUBOPTIMAL BOLUS TIMING. ??NO CENTRAL PULMONARY EMBOLISM. ? SMALL BILATERAL PLEURAL EFFUSIONS WITH BIBASILAR ATELECTASIS, GROUNDGLASS AND ?? SMOOTH SEPTAL THICKENING. ??FLUID OVERLOAD IS SUSPECTED. ??DEVELOPING INFECTIOUS ?? PROCESS CANNOT BE EXCLUDED. ? Impression dictated by: Jacinto Rivas Jr., D.O. ??06/08/2025 9:40 AM ? Dictation Location: RADIO-PC-23 ? Electronically authenticated by: [id number] ??Y ?? Date: 06/08/2025 ??09:40 ? Dictated By: ?Jacinto Rivas M.D. ? Signed By: ?06/08/2542 ? DD/ 0940 ? TD/TT: ? Printed Circuit Boards Inspector: Procedure Note Radiology, Radiologist, - 06/08/2025 [place] [address] CT Scan Report Signed Patient: CHARLENE PURVIS LMR#: [id number] : 1990Acct:[id number] Age/Sex: 34 / FADM Date: Loc: [facility] 252-[address]: Thomas Cortes D.O. Ordering Physician: Thomas Cortes D.O. Date of Service: 06/08/25 Procedure(s): CT angio chest Accession Number(s): [id number] cc: Physician,Non-Staff M.Daisy The [place] [id number] Patient Name: CHARLENE PURVIS MRN: [facility]:[id number] date: 1990 Sex: F Assigned Patient Location: [facility] Current Patient Location: [facility] Accession/Order Number: [id number] Exam Date: 06/08/2025 09:37 Report Date: 06/08/2025 09:40 At the request of: THOMAS CORTES DO Procedure: CT angio chest CT ANGIOGRAM OF THE CHEST, PULMONARY EMBOLISM PROTOCOL: CLINICAL INFORMATION: Wheezing. 6 stable post . Shortness of breath with exertion for one day. COMPARISON: None TECHNIQUE: Following intravenous injection of contrast [facility] were obtained using pulmonary embolism protocol. Coronal and sagittal reconstructed images, as well as volume rendered CT pulmonary angiographic images were also submitted.The CT exam was performed using one or more ofthe following dose reduction techniques: Automated exposure control,adjustment of the MA and/or Kv according to patient size, or use of the iterative reconstruction technique. FINDINGS: Pulmonary Vasculature: Contrast bolus is suboptimal for evaluation of segmental and subsegmental pulmonary embolism. No central pulmonaryembolism is noted. Pulmonary trunk appears nondilated. Mediastinum : Thoracic aorta is normal in caliber. No pericardialeffusion. No lymphadenopathy. The esophagus is grossly unremarkable. Lungs: Small bilateral pleural effusions with bibasilar atelectasis, groundglass and smooth septal thickening. No pneumothorax. Upper abdomen: No acute findings Soft tissue/bones: Soft tissues surrounding the chest wall demonstrate no acute findings. Osseous structures demonstrate degenerative change. CT/CT angio chest IMPRESSION: SUBOPTIMAL BOLUS TIMING. NO CENTRAL PULMONARY EMBOLISM. SMALL BILATERAL PLEURAL EFFUSIONS WITH BIBASILAR ATELECTASIS, GROUNDGLASSAND SMOOTH SEPTAL THICKENING. FLUID OVERLOAD IS SUSPECTED. DEVELOPINGINFECTIOUS PROCESS CANNOT BE EXCLUDED. Impression dictated by: Jacinto Rivas Jr., D.O. 06/08/2025 9:40 AM Dictation Location: [place] [address] Electronically authenticated by: [id number] Y Date: 9:40 Dictated By: Jacinto Rivas M.D. Signed By:06/08/25 0942 DD/ 0940 TD/TT: Printed Circuit Boards Inspector: Authorizing ProviderResult TypeResult StatusCorey [facility] PROCEDURESFinal Result * (ABNORMAL) ALL CBC WITH AUTO DIFF (06/08/2025 6:43 AM EDT) Only the most recent of5 resultswithin the time period is included. ComponentValueRef RangeTest MethodAnalysis TimePerformed AtPathologist Signature TBH WBC8.54.0 - 11.0 10 3/uLTBHTBH RBC2.81(L)4.20 - 5.40 10 6/uLTBHTBH HGB8.8(L) 12.0 - 16.0 g/dLTBHTBH HCT26.6(L)36.0 - 48.0 %TBHTBH MCV94.781.0 - 99.0 fLTBHTBH MCH31.326.7 - 34.0 pgTBHTBH MCHC33.129.9 - 35.2 g/dLTBHTBH RDW14.011.0 - 15.0 % TBHTBH EBM157(L)150 - 450 10 3/uLTBHTBH MPV11.29.5 - 13.5 fLTBHNEUTROPHILS PERCENT AUTO77.7(H)43.0 - 75.0 %TBHLYMPHOCYTES PERCENT AUTO11.7(L)20.5 - 60.0 % TBHMONOCYTES PERCENT AUTO8.01.7 - 12.0 %TBHTBH EO %2.00.9 - 7.0 %TBHBASOPHILS PERCENT AUTO0.20.2 - 2.0 %TBHIMMATURE GRANULOCYTES PCT AUTO0.40.0 - 0.5 %TBH NEUTROPHILS ABSOLUTE AUTO6.6(H)1.4 - 6.5 10 3/uLTBHLYMPHOCYTES ABSOLUTE AUTO1.0 (L)1.2 - 3.8 10 3/uLTBHMONOCYTES ABSOLUTE AUTO0.70.3 - 0.8 10 3/uLTBHTBH EO #0.2 0.0 - 0.7 10 3/uLTBHBASOPHILS ABSOLUTE AUTO0.00.0 - 0.1 10 3/uLTBHIMMATURE GRANULOCYTES ABS AUTO0.030.00 - 0.03 10 3/uLTBHSpecimen (Source)Anatomical Location / LateralityCollection Method / VolumeCollection TimeReceived Time 06/08/2025 6:43 AM EDT06/08/2025 6:47 AM EDT Narrative CLIN[facility]NC - 06/08/2025 6:55 AM EDT Authorizing ProviderResult TypeResult StatusCorey Sebastian DOCLINISYNCFinal Result Performing OrganizationAddressCity/State/ZIP CodePhone Number CLINISYNC TB * (ABNORMAL) [facility] CREATININE (06/07/2025 11:33 AM EDT) Only the most recent of2 resultswithin the time period is included. ComponentValueRef RangeTest MethodAnalysis TimePerformed AtPathologist Signature CREATININE0.51(L)0.55 - 1.02 mg/dLTBHTBH EGFR-AF MAURITIAN>60>=60 mL/min/1.73m 2 TBHTBH EGFR-NON AF MAURITIAN>60>=60 mL/min/1.73m 2TBHSpecimen (Source)Anatomical Location / LateralityCollection Method / VolumeCollection TimeReceived Time 06/07/2025 11:33 AM EDT06/07/2025 11:38 AM EDT Narrative CLIN[facility]YNC - 06/07/2025 12:01 PM EDT Authorizing ProviderResult TypeResult StatusCorey Sebastian DOCLINISYNCFinal Result Performing OrganizationAddressCity/State/ZIP CodePhone Number CLINISYNC TB * [facility] AST (06/07/2025 11:33 AM EDT) Only the most recent of2 resultswithin the time period is included. ComponentValueRef RangeTest MethodAnalysis TimePerformed AtPathologist Signature ASPARTATE AMINO [id number] - 37 U/LTBHSpecimen (Source)Anatomical Location / LateralityCollection Method / VolumeCollection TimeReceived Time06/07/2025 11:33 AM EDT06/07/2025 11:38 AM EDT Narrative CLIN[facility]NC - 06/07/2025 12:01 PM EDT Authorizing ProviderResult TypeResult StatusCorey Sebastian DOCLINISYNCFinal Result Performing OrganizationAddressCity/State/ZIP CodePhone Number CLINISYNC TB * [facility] ALT (06/07/2025 11:33 AM EDT) Only the most recent of2 resultswithin the time period is included. ComponentValueRef RangeTest MethodAnalysis TimePerformed AtPathologist Signature ALANINE IFSYGYIALXXQBVUZ7348 - 59 U/LTBHSpecimen (Source)Anatomical Location / LateralityCollection Method / VolumeCollection TimeReceived Time06/07/2025 11:33 AM EDT06/07/2025 11:38 AM EDT Narrative CLINISYNC - 06/07/2025 12:01 PM EDT Authorizing ProviderResult TypeResult StatusCorey Sebastian DOCLINISYNCFinal Result Performing OrganizationAddressCity/State/ZIP CodePhone Number CLINISYNC TB * ALL URIC ACID (06/07/2025 11:33 AM EDT) Only the most recent of2 resultswithin the time period is included. ComponentValueRef RangeTest MethodAnalysis TimePerformed AtPathologist Signature URIC ACID4.12.6 - 6.0 mg/dLTBHSpecimen (Source)Anatomical Location / Laterality Collection Method / VolumeCollection TimeReceived Time06/07/2025 11:33 AM EDT 06/07/2025 11:38 AM EDT Narrative CLINISYNC - 06/07/2025 12:01 PM EDT Authorizing ProviderResult TypeResult StatusCorey Sebastian DOCLINISYNCFinal Result Performing OrganizationAddressCity/State/ZIP CodePhone Number CLINISYNC [facility] * ALL BUN (06/07/2025 11:33 AM EDT) Only the most recent of2 resultswithin the time period is included. ComponentValueRef RangeTest MethodAnalysis TimePerformed AtPathologist Signature BLOOD UREA JSCCPJQY33.07.0 - 18.0 mg/dLTBHSpecimen (Source)Anatomical Location / LateralityCollection Method / VolumeCollection TimeReceived Time06/07/2025 11:33 AM EDT06/07/2025 11:38 AM EDT Narrative CLINISYNC - 06/07/2025 12:01 PM EDT Authorizing ProviderResult TypeResult StatusCorey Sebastian DOCLINISYNCFinal Result Performing OrganizationAddressCity/State/ZIP CodePhone Number CLINISYNC [facility] * (ABNORMAL) [facility] URINE T PROTEIN CREAT RATIO (06/02/2025 4:35 PM EDT)Component ValueRef RangeTest MethodAnalysis TimePerformed AtPathologist SignatureTOTAL PROTEIN URINE AEOFEX85.9(H)<=11.9 mg/dLTBHCREATININE URINE AONVSF59.82(L)20.00 - 300.00 mg/dLTBHPROTEIN CREATININE RATIO URINE0.83TBHSpecimen (Source) Anatomical Location / LateralityCollection Method / VolumeCollection Time Received Time06/02/2025 4:35 PM EDT06/02/2025 5:02 PM EDT Narrative CLINISYNC - 06/02/2025 5:21 PM EDT Authorizing ProviderResult TypeResult StatusCorey Sebastian DOCLINISYNCFinal Result Performing OrganizationAddressCity/State/ZIP CodePhone Number CLINISYNC [facility] * [facility] DRUG SCREEN RAPID (URINE) (06/02/2025 4:35 PM EDT)ComponentValueRef Range Test MethodAnalysis TimePerformed AtPathologist SignatureCANNABINOID SCREEN URINENEGATIVENEGATIVETBHPHENCYCLIDINE SCREEN URINENEGATIVENEGATIVETBHCOCAINE SCREEN URINENEGATIVENEGATIVETBHMETHAMPHETAMINES SCREEN URINENEGATIVENEGATIVE TBHOPIATE SCREEN URINENEGATIVENEGATIVETBHAMPHETAMINE SCREEN URINENEGATIVE NEGATIVETBHBENZODIAZEPINES SCREEN URINENEGATIVENEGATIVETBHTRICYCLIC ANTIDEPRESSANT URINENEGATIVENEGATIVETBHMETHADONE SCREEN URINENEGATIVENEGATIVE TBHBARBITURATES SCREEN URINENEGATIVENEGATIVETBHOXYCODONE SCREEN URINENEGATIVE NEGATIVETBHBUPRENORPHINE SCREEN URINENEGATIVENEGATIVETBHComment: DRUG CLASS TEST SYSTEM CUT-OFF CONCENTRATIONS ARE FOLLOWS: AMP (Amphetamine): 500 ng/mL BAR (Barbiturates): 200 ng/mL BZO (Benzodiazepines): 150 ng/mL BUP (Buprenorphine): 10 ng/mL RONALD (Cocaine): 150 ng/mL mAMP (Methamphetamine): 500 ng/mL MTD (Methadone): 200 ng/mL OPI (Opiates): 100 ng/mL OXY (Oxycodone): 100 ng/mL PCP (Phencyclidine): 25 ng/mL THC (Cannabinoids): 50 ng/mL TCA (Trycyclic Antidepressants): 300 ng/mL Specimen (Source)Anatomical Location / LateralityCollection Method / Volume Collection TimeReceived Time06/02/2025 4:35 PM EDT06/02/2025 5:02 PM EDT Narrative CLINISYNC - 06/02/2025 5:22 PM EDT Authorizing ProviderResult TypeResult StatusCorey Sebastian DOCLINISYNCFinal Result Performing OrganizationAddressCity/State/ZIP CodePhone Number [facility] * SRMCOH PROTHROMBIN TIME INR W/O COUM (06/02/2025 3:50 PM EDT)ComponentValueRef RangeTest MethodAnalysis TimePerformed AtPathologist SignaturePROTHROMBIN TIME 9.79.0 - 11.6 secTBHTBH INR<0.93TBHComment: DESIRED INR: 2.0-3.0 CONDITIONS NOT LISTED BELOW 2.5-3.5 FOR PROSTHETIC HEART VALVE REPLACEMENT 2.5-3.5 RECURRENT THROMBOSIS Specimen (Source)Anatomical Location / LateralityCollection Method / Volume Collection TimeReceived Time06/02/2025 3:50 PM EDT06/02/2025 3:58 PM EDT Narrative CLINISYNC - 06/02/2025 5:14 PM EDT Authorizing ProviderResult TypeResult StatusCorey Sebastian DOCLINISYNCFinal Result Performing OrganizationAddressCity/State/ZIP CodePhone Number [facility] * (ABNORMAL) MHPT FIBRINOGEN (06/02/2025 3:50 PM EDT)ComponentValueRef RangeTest MethodAnalysis TimePerformed AtPathologist KwsyryxuyTZNJECHEHC994(H)200 - 400 mg/dLTBHSpecimen (Source)Anatomical Location / LateralityCollection Method / VolumeCollection TimeReceived Time06/02/2025 3:50 PM EDT06/02/2025 3:58 PM EDT Narrative CLINISYNC - 06/02/2025 5:14 PM EDT Authorizing ProviderResult TypeResult StatusCorey Sebastian DOCLINISYNCFinal Result Performing OrganizationAddressCity/State/ZIP CodePhone Number [facility] * [facility] APTT (06/02/2025 3:50 PM EDT)ComponentValueRef RangeTest MethodAnalysis TimePerformed AtPathologist SignaturePARTIAL THROMBOPLASTIN TIME23.622.3 - 36.2 secTBHSpecimen (Source)Anatomical Location / LateralityCollection Method / VolumeCollection TimeReceived Time06/02/2025 3:50 PM EDT06/02/2025 3:58 PM EDT Narrative CLIN[facility]YNC - 06/02/2025 5:14 PM EDT Authorizing ProviderResult TypeResult StatusCorey Sebastian DOCLINISYNCFinal Result Performing OrganizationAddressCity/State/ZIP CodePhone Number [facility] from Last 3 Months Insurance
--- OUTSIDE RECORDS SUMMARY | 2025-09-02 10:14 | XMS_ITS | CCD ---
Author Organization [facility] Care Team Providers Care Spray Technician Name Role Phone PETRA ., DR [...] Primary Care Unavaila ble SEBASTIAN ., DR GUMZAN Consulting Unavailable SEBASTIAN ., DR GUZMAN Admitting Unavailable SEBASTIAN ., DR GUZMAN Attending Unavailable SEBASTIAN ., DR GUZMAN Consulting Unavailable REQUEST, DR NONE LISTED Primary Care Unavaila ble SEBASTIAN ., DR GUZMAN Admitting Unavailable Unavailable Primary Care Provider Unavailabl e Geeta MD, Melony M Primary Care Provider ALEXANDRIA ROBERT Attending Unavailable NOLAN CORTES Referring Unavailable GEETA, MELONY Sibley Primary Care UnavailKENYA Samuels Attending Unavailable SEBASTIAN, NOLAN R Referring Unavailable GEETA, MELONY Sibley Primary Care Unavailguillermina HALL, KAREEM Attending Unavailable SEBASTIAN, NOLAN Godinez Referring Unavailable GEETA, MELONY Sibley Primary Care UnavailKENYA Samuels Attending Unavailable GEETA, MELONY Sibley Referring Unavailabl e GEETA, MELONY Sibley Primary Care Unavailguillermina HALL, KAREEM Attending Unavailable GEETA, MELONY Sibley Referring Unavailabl e GEETA, MELONY Sibley Primary Care Unavailabl e MOJENNIFER MOYER Attending Unavailable SEBASTIAN, NOLAN Attending Unavailable SEBASTIAN, NOLAN Attending Unavailable SEBASTIAN, NOLAN Attending Unavailable SEBASTIAN, NOLAN Attending Unavailable SEBASTIAN, NOLAN Attending Unavailable SEBASTIAN, NOLAN Attending Unavailable POLINA, KRISTAN Attending Unavailable SEBASTIAN, NOLAN Attending Unavailable POLINA, KRISTAN Attending Unavailable POLINA, KRISTAN Attending Unavailable SEBASTIAN, NOLAN Attending Unavailable SEBASTIAN, NOLAN Attending Unavailable TRENABLANK BRAVO Attending Unavailable POLINA, KRISTAN Attending Unavailable POLINA, KRISTAN Attending Unavailable TRENABLANK BRAVO Attending Unavailable Medications Current Medications MedicationDrug Class(es)DatesSig (Normalized)Sig (Original)ascorbic acid 500 mg extended release oral capsule (10 sources)Vitamin Ctake 1 capsule by mouth once dailyascorbic acid (Vitamin C) 500 MG ER capsule Take 500 mg by mouth Daily Activeaspirin 81 mg delayed release oral tablet (20 sources)Platelet Aggregation Inhibitor, Nonsteroidal Anti-inflammatory Drug End: 31-89-1229kabd 1 tablet by mouth once dailyaspirin 81 MG EC tablet Take 81 mg by mouth Daily 06/16/2025 Discontinuedaspirin 81 mg chewable tablet Chew 1 tablet (81 mg total) and swallow in the morning. ActiveBlood Glucose Monitoring Suppl (Accu-Chek Guide Me) w/Device kit (20 sources)Start: 02-21-2025 End: 31-47-0621Zpehe Glucose Monitoring Suppl (Accu-Chek Guide Me) w/Device kit Indications: Gestational diabetes mellitus (GDM), antepartum, gestational diabetes method of control unspecified (HHS-HCC) , Elevated glucose tolerance test USE TO CHECK BLOOD GLUCOSE IN THE MORNING PRIOR TO BREAKFAST AND ONE HOUR AFTER EACH MEAL FOR A TOTAL OF FOUR TIMES DAILY 1 kit 02/21/2025 06/07/2025 DiscontinuedStart: 28-68-0190Hplgd Glucose Monitoring Suppl (Accu-Chek Guide Me) w/Device kit Indications: Gestational diabetes mellitus (GDM), antepartum, gestational diabetes method of control unspecified (HHS-HCC) , Elevated glucose tolerance test USE TO CHECK BLOOD GLUCOSE IN THE MORNING PRIOR TO BREAKFAST AND ONE HOUR AFTER EACH MEAL FOR A TOTAL OF FOUR TIMES DAILY 1 kit 02/21/2025 Active Start: 60-71-7978Mubgi Glucose Monitoring Suppl (Accu-Chek Guide Me) w/Device kit Indications: Gestational diabetes mellitus (GDM), antepartum, gestational diabetes method of control unspecified , Elevated glucose tolerance test USE TO CHECK BLOOD GLUCOSE IN THE MORNING PRIOR TO BREAKFAST AND ONE HOUR AFTER EACH MEAL FOR A TOTAL OF FOUR TIMES DAILY 1 kit 02/21/2025 ActiveBlood Glucose Monitoring Suppl (D-Care Glucometer) w/Device kit (1 source)Start: 01-24-2025 End: 97-63-4350Lfylv Glucose Monitoring Suppl (D-Care Glucometer) w/Device kit Indications: Gestational diabetes mellitus (GDM), antepartum, gestational diabetes method of control unspecified , Elevated glucose tolerance test 1 kit Daily Use four times daily to check FSBS. In the morning prior to breakfast & 1 hour after each meal for a total of 4times daily. 1 kit 01/24/2025 01/24/2026 Activeblood-glucose meter (RELION MICRO GLUCOSE MONITOR) misc (15 sources)blood-glucose meter (RELION MICRO GLUCOSE MONITOR) misc by miscellaneous route. Activecephalexin 500 mg oral capsule (4 sources)Cephalosporin AntibacterialStart: 06-10-2025 End: 07-16-8191jnxs 1 capsule by mouth in the morningcephalexin (Keflex) 500 MG capsule Take 500 mg by mouth in the morning and 500 mg before bedtime. 06/23/2025 Discontinuedferrous sulfate 325 mg oral tablet (10 sources)Start: 81-74-6609vitb 1 tablet by mouth at mealtimeFeroSul 325 (65 Fe) MG tablet Take 325 mg by mouth in the morning. Take with meals. 06/10/2025 Activefurosemide 20 mg oral tablet (2 sources)Loop DiureticStart: 06-10-2025 End: 54-58-6519qbpl 1 tablet by mouth once dailyfurosemide (Lasix) 20 MG tablet Take 20 mg by mouth Daily 06/10/2025 06/16/2025 Discontinued (Therapy completed) isopropyl alcohol 0.7 ml/ml medicated pad (20 sources)Start: 01-24-2025 End: 79-81-6512Dudtqop Swabs (Alcohol Prep Pad) 70 % pads Indications: Gestational diabetes mellitus (GDM), antepartum, gestational diabetes method of control unspecified ([facility] , Elevated glucose tolerance testApply 1 Pad topically Daily Use four times daily to check FSBS. 150 each 3 01/24/2025 06/07/2025 Bgslozndlfer81 hr metFORMIN hydrochloride 500 mg extended release oral tablet (20 sources)BiguanideStart: 03-08-2025 End: 78-63-5300fkpq 1 tablet by mouth every twenty-four hours in the morning, then take 2 tablets by mouth in the eveningmetFORMIN XR (GLUCOPHAGE XR) 500 mg 24 hr tablet Indications: Gestational diabetes mellitus (GDM) in second trimester controlled on oral hypoglycemic drug Take 500mg in am with breakfast and 1000 mg in pm with dinner 60 tablet 4 03/23/2025 Active End: 57-99-0363jvmi 1 tablet by mouth at mealtime, then take 1 tablet by mouth every twenty-four hoursmetFORMIN, OSM, (Fortamet) 1000 MG 24 hr tablet Take 1,000 mg by mouth in the evening. Take with meals Do not crush, chew, or split. 06/07/2025 Discontinuedondansetron 4 mg disintegrating oral tablet (20 sources)Serotonin-3 Receptor AntagonistStart: 2024 End: 08-77-1005sdps 1 tablet by mouth every six hours as needed for nausea and vomiting and nausea and nauseaondansetron ODT (Zofran-ODT) 4 MG disintegrating tablet Indications: Nausea Take 1 tablet (4 mg) bymouth every 6 (six) hours if needed for nausea or vomiting 30 tablet 2 2024 12/24/2024 ActiveStart: 08-25-2021 End: 57-55-0321hmvv 1 tablet by mouth every eight hours as needed for nausea ondansetron ODT (ZOFRAN-ODT) 4 mg disintegrating tablet Dissolve 1 tablet (4 mg total) on tongue every 8 (eight) hours as needed for nausea for up to 10 doses. 10 tablet 08/25/2021 Active End: 43-50-5642rshf 1 tablet by mouth every eight hours as needed for nausea and vomitingondansetron (ZOFRAN) 4 mg tablet Take 1 tablet (4 mg total) by mouth every 8 (eight) hours as needed for nausea or vomiting. 03/23/2025 Discontinued (Alternate therapy)microencapsulated potassium chloride 20 meq extended release oral tablet (4 sources)Start: 06-10-2025 End: 26-09-2208zvnuzonen chloride CR (Klor-Con M20) 20 MEQ ER tablet Take 20 mEq by mouth Daily 06/10/2025 06/23/2025 DiscontinuedPrenatal MV & Min w/FA-DHA ( Adult Gummy/DHA/FA) 0.4-25 MG chewable tablet (20 sources)Start: 06-10-2025 End: 06-97-5006Huwxslku MV & Min w/FA-DHA ( Adult Gummy/DHA/FA) 0.4-25 MG chewable tablet Chew 1 capsule Daily 06/10/2025 06/23/2025 DiscontinuedStart: 51-61-1070Uurqyrfs MV & Min w/FA-DHA ( Adult Gummy/DHA/FA) 0.4-25 MG chewable tablet Chew 1 capsule Daily 06/10/2025 ActiveStart: 12-30-2024 End: 36-99-5488Yqopdcov MV & Min w/FA-DHA ( Adult Gummy/DHA/FA) 0.4-25 MG chewable tablet Chew 1 each Daily 12/30/2024 06/07/2025 DiscontinuedStart: 65-11-0940Mqmlrnzf MV & Min w/FA-DHA ( Adult Gummy/DHA/FA) 0.4-25 MG chewable tablet Chew 1 each Daily 12/30/2024 ActiveStart: 11-29-2024 End: 08-90-4384Ahksoatc MV & Min w/FA-DHA ( Adult Gummy/DHA/FA) 0.4-25 MG chewable tablet Indications:, unspecified gestational age , Encounter for supervision of normal first in first trimester Chew 1 each Daily 30 tablet 11 11/29/2024 12/29/2024 ActivePrenatal MV & Min w/FA-DHA ( Gummies) 0.18-25 MG chewable tablet (2 sources)Start: 11-26-2024 End: 19-95-9141Cybwhpbs MV & Min w/FA-DHA ( Gummies) 0.18-25 MG chewable tablet Indications: , unspecified gestational age , Encounter for supervision of normal first in first trimester Chew 1 tablet Daily 1 tablet 11 11/26/2024 11/26/2025 ActivePrenatal MV-Min-Fe Fum-FA-DHA ( 1 PO) (1 source) End: 55-14-3293Lcivxkjr MV-Min-Fe Fum-FA-DHA ( 1 PO) Take by mouth. 11/26/2024 Discontinued (Other) vit calc,iron,folic ( VITAMIN ORAL) (15 sources)take 1 tablet by mouth in the morningprenatal vit calc,iron,folic ( VITAMIN ORAL) Take 1 tablet by mouth in the morning. Activetake 1 tablet by mouth once dailyprenatal vit calc,iron,folic ( VITAMIN ORAL) Take 1 tablet by mouth daily. Active Completed/Discontinued Medications MedicationDrug Class(es)DatesSig (Normalized)Sig (Original)glyBURIDE 2.5 mg oral tablet (7 sources)SulfonylureaStart: 08-22-2021 End: 52-18-5605kxkd 1.5 tablets by mouth once daily at bedtimeglyBURIDE (DIABETA) 2.5 mg tablet Take 1.5 tablets (3.75 mg total) by mouth once daily at bedtime. Pt takes 2.5 mg at bedtime 90 tablet 3 08/22/2021 03/08/2025 Discontinued (Therapy completed)3 ml insulin glargine 100 unt/ml pen injector (1 source)Insulin AnalogStart: 03-23-2025 End: 10-81-4255aimysqv glargine (LANTUS SOLOSTAR U-100 INSULIN) 100 unit/mL (3 mL) insulin pen Prime with 2 units,then inject 10 units SQ into ABD each evening 15 mL 3 03/23/2025 03/23/2025 Discontinued (Alternatetherapy)labetalol hydrochloride 100 mg oral tablet (20 sources)beta-Adrenergic BlockerStart: 06-30-2025 End: 51-16-7610cnyf 1 tablet by mouth in the morninglabetalol (Normodyne) 100 MG tablet Indications: BP check Take 1 tablet (100 mg) by mouth in the morning and 1 tablet (100 mg) before bedtime. Do all this for 10 days. 20 tablet 06/30/2025 07/14/2025Discontinued (Therapy completed)Start: 06-10-2025 End: 87-44-7110nvcj 2 tablets by mouth in the morning, then take 2 tablets by mouth in the evening, then take 2 tablets by mouth at bedtimelabetalol (Normodyne) 100 MG tablet Indications: Encounter for visit ([facility]) , Blood pressure check Take 2 tablets (200 mg) by mouth in the morning and 2 tablets (200 mg) in the evening and 2 tablets (200 mg) before bedtime. 180 tablet 06/16/2025 07/16/2025 Active End: 77-78-8434erds 1 tablet by mouth twice dailylabetaloL (NORMODYNE) 100 mg tablet Take 100 mg by mouth 2 (two) times a day. 03/08/2025 Discontinued (Therapy completed)progesterone 200 mg oral capsule (10 sources)ProgesteroneStart: 02-24-2023 End: 12-93-3310rcbnasmfvfze (PROMETRIUM) 200 mg capsule Indications: History of delivery Place 200 mg Inside vagina every night until 36 weeks. 90 capsule 3 02/24/2023 03/23/2025 Discontinued (Therapy completed) Problems Active Problems Problem ClassificationProblemDateDocumented DateEpisodic/ChronicDiabetes mellitus without complication (4 sources)Impaired glucose tolerance (oral); Translations: [IMPAIRED GLUCOSE TOLERANCE ORAL]Onset: 12-98-8721NuthrwfgUasbp and electrolyte disorders (2 sources)Dehydration; Translations: [Hypokalemia]Onset: 60-98-0044Trowvdwp Headache; including migraine (2 sources)Throbbing headache; Translations: [Throbbing headache]06-07-2025 EpisodicHypertension complicating ; childbirth and the puerperium (20 sources)Benign essential hypertension in obstetric context; Translations: [Pre-existing essential hypertension complicating , unspecified trimester]Onset: 974241-52-9826LbottfnBtynyxdkwqpr complicating ; childbirth and the puerperium (2 sources)-induced hypertension; Translations: [Gestational [-induced] hypertension withoutsignificant proteinuria, unspecified trimester]87-09-7286TzxkwxakXajlmkuvguhaj and screening for infectious disease (2 sources)Encounter for screening for human papillomavirus (HPV); Translations: [Contact with and (suspected)exposure to infections with a predominantly sexual mode of transmission]Onset: 91-81-6867QsandlyrBtqppgvsv disorders (4 sources)Irregular menstruation, unspecified; Translations: [Missed period] Onset: 37-17-7640DofoaxlLqoby and ill-defined heart disease (2 sources)Cardiomegaly; Translations: [Cardiomegaly]Onset: 58-66-1780Rhzlqam Other circulatory disease (2 sources)H/O: hypertension; Translations: [Personal history of other diseases of the circulatory system]62-42-9079ZgnlzrgfZykbf complications of (1 source)Other specified related conditions, first trimester; Translations: [OTH SPEC PREG RELATEDCOND 1ST TRI]Onset: 10-58-4798KtlxmnsxQsrrq female genital disorders (1 source)Other specified noninflammatory disorders of vagina; Translations: [OTH SPEC NONINFLAMMATORY D/O VAGINA]Onset: 12-27-2133JgpobqbzMivvj gastrointestinal disorders (1 source)Diarrhea, unspecified; Translations: [DIARRHEA UNSPECIFIED]Onset: 79-50-0254IlmdqjsbZockl and delivery including normal (20 sources)Encounter for supervision of normal , unspecified, second trimester; Translations: [Encounter for supervision of normal , unspecified, first trimester]Onset: 50-06-3405FkmoefdiCwfxn screening for suspected conditions (not mental disorders or infectious disease) (9 sources)Encounter for screening for malignant neoplasm of cervix; Translations: [Encounter for other screening for genetic and chromosomal anomalies]Onset: 48-49-5819PvqghqbiAsogkujd codes; unclassified (4 sources)Personal history of other complications of , childbirth and the puerperium; Translations: [PERS HX OTH COMP PG CHILDBIRTH AND PP]Onset: 40-54-2151JjomtjmcVprdpbdm codes; unclassified (1 source)9 weeks gestation of ; Translations: [9 WEEKS GESTATION OF ]Onset: 14-59-5700NvtvttoaRzggqbyh codes; unclassified (2 sources)Gestation period, 14 weeks; Translations: [14 weeks gestation of ]30-11-0272GpokyayjHxargzym codes; unclassified (2 sources)Gestation period, 22 weeks; Translations: [22 weeks gestation of ]04-36-2841AkiggcfdGvvcacyu codes; unclassified (2 sources)Gestation period, 25 weeks; Translations: [25 weeks gestation of ]01-17-0816BkyspuqkNhomstiw codes; unclassified (2 sources)Gestation period, 28 weeks; Translations: [28 weeks gestation of ]61-40-7571ZzhqxsvmGbxdpcla codes; unclassified (2 sources)Gestation period, 30 weeks; Translations: [30 weeks gestation of ]83-42-8716GunfsrmiMgqycdeb codes; unclassified (2 sources)Gestation period, 32 weeks; Translations: [32 weeks gestation of ]84-45-5700AcrojysvRkjmbehp codes; unclassified (2 sources)Gestation period, 34 weeks; Translations: [34 weeks gestation of ]59-78-6920DqecvwknWjiglzgc codes; unclassified (2 sources)Gestation period, 35 weeks; Translations: [35 weeks gestation of ]95-84-3728UwxcmnghYkbrygqa codes; unclassified (2 sources)Gestation period, 36 weeks; Translations: [36 weeks gestation of ]94-10-8544LcrzkhqcDfnubtqequxq (1 source)Med Start-GDMOnset: 03-08-2025 Past or Other Problems Problem ClassificationProblemDateDocumented DateEpisodic/Chronic Administrative/social admission (2 sources)Patient encounter status; Translations: [Other specified counseling] Onset: 19-85-488116584396-54-5350NcmzeogcUhkoovox or abnormal glucose tolerance complicating ; childbirth; or the puerperium (20 sources)Gestational diabetes mellitus; Translations: [Gestational diabetes mellitus in , unspecified control]Onset: 872678-84-0787Nuyyinrx Nausea and vomiting (20 sources)Nausea with vomiting, unspecified; Translations: [Nausea]Onset: 38-67-5023ArzlxypnOajor female genital disorders (20 sources)H/O: premature delivery; Translations: [Personal history of pre-term labor]Onset: 622282-61-3240JpzzfgezFxyex injuries and conditions due to external causes (20 sources)Other specified effects of external causes, initial encounter; Translations: [Contact with and (suspected) exposure to other potentially hazardous substances]Onset: 150804-68-7069Qwuwplhf Results Test NameValueInterpretationReference UlrffLpkglnxq26av 56-88-160445Mexlyfyb by: JENNIFER GARCIA on: 06/27/2025 01:36 PM Modules accepted: OrdersNormalUniversity Tuscarawas HospitalOffice Visiton 49-40-5503Ftbeyd-up [id number] Charlene Purvis 1990 F Date Provider Department Center 06/27/2025 [facility]-JENNIFER GARCIA [facility] Hos Family History Problem Relation Age of Onset Heart murmur Mother Family Status - Relation Status Age at Mother Alive Father Alive Level of Service:18247 [place] OFFICE/OUTPATIENT NEW LOW MDM 30 MINUTES (25)[facility] WITH AUTO DIFFon 61-53-0482SUQYKTYNA ABSOLUTE BQBV6YQGV HealthcareBasophils/100 WBC (Bld)0.2 %0.2 - 2.0 %NOMS HealthcareEosinophils/100 WBC (Bld)2 %0.9 - 7.0 %NOMS HealthcareErythrocyte distribution width (RBC) [Ratio]14 %11.0 - 15.0 %[facility] HealthcareHematocrit (Bld) [Volume fraction]26.6 %Low36.0 - 48.0 %[facility] HealthcareHemoglobin (Bld) [Mass/Vol]8.8 g/dLLow12.0 - 16.0 g/dLNOMA HealthcareIMMATURE GRANULOCYTES ABS AUTO0.03NOMS HealthcareImmature granulocytes/100 WBC (Bld)0.4 %0.0 - 0.5 %[facility]OM[facility] HealthcareInterpretation and review of laboratory resultsAbnormalNOMA Healthcare LYMPHOCYTES ABSOLUTE [id number] HealthcareLymphocytes/100 WBC (Bld)11.7 %Low 20.5 - 60.0 %NOMAlvin J. Siteman Cancer CenterH (RBC) [Entitic mass]31.3 pg26.7 - 34.0 pgNOHermann Area District HospitalHC (RBC) [Mass/Vol]33.1 g/dL29.9 - 35.2 g/dLNOHermann Area District HospitalV (RBC) [Entitic vol]94.7 fL81.0 - 99.0 fLNOMA HealthcareMONOCYTES ABSOLUTE AUTO0.7NOMS HealthcareMonocytes/100 WBC (Bld)8 %1.7 - 12.0 %[facility] HealthcareNEUTROPHILS ABSOLUTE AUTO6.6HighNOMA HealthcareNeutrophils/100 WBC (Bld)77.7 %High43.0 - 75.0 %[facility]OM[facility] HealthcarePlatelet mean volume (Bld) [Entitic vol]11.2 fL9.5 - 13.5 fLNOMA HealthcareTBH EO #0.2NOMS HealthcareTBH [id number] HealthcareTB RBC 2.81LowNOMS HealthcareTBH WBC8.5NOMS HealthcareCLINISYNCNOMS HealthcareCTA Chest vessels WO and W contrast Omar 58-81-6993Zxj[address] [address] [address] Scan Report Signed Patient: CHARLENE PURVIS MR#: [id number] : 1990 Acct:[id number] Age/Sex: 34 / F ADM Date: Loc: [facility] Attending Dr: Nolan Cortes D.O. Ordering Physician: Nolan Cortes D.O. Date of Service: 06/08/25 Procedure(s): CT angio chest Accession Number(s): [id number] cc: Physician,Non-Staff Nikky [address] [address] Patient Name: CHARLENE PURVIS MRN: [id number] date: 1990 Sex: F Assigned Patient Location: [facility] Current Patient Location: [facility] Accession/Order Number: [id number] Exam Date: 06/08/2025 09:37 Report Date: 06/08/2025 [...] Jr., D.O. 06/08/2025 9:40 AM Dictation Location: [place] [address] Electronically authenticated by: [id number] Y Date: 06/08/2025 09:40 Dictated By: Jacinto Rivas M.D. Signed By: 06/08/2542 DD/ 9 TD/TT: Relocation Commissioner:TBHRadiology, Radiologist, - 06/08/2025 [facility] [place] [facility] [address] [place] [address] CT Scan Report Signed Patient: CHARLENE PURVIS MR#: [id number] : 1990 Acct:[id number] Age/Sex: 34 / F ADM Date: Loc: [facility] 252-[address]: Nolan Cortes D.O. Ordering Physician: Nolan Cortes D.O. Date of Service: 06/08/25 Procedure(s): CT angio chest Accession Number(s): [id number] cc: Physician,Non-Staff M.Daisy The [address] [address] Patient Name: CHARLENE PURVIS MRN: [id number] date: 1990 Sex: F Assigned Patient Location: [facility] Current Patient Location: [facility] Accession/Order Number: [id number] Exam Date: 06/08/2025 09:37 Report Date: 06/08/2025 [...] Jr., D.O. 06/08/2025 9:40 AM Dictation Location: [place] [address] Electronically authenticated by: [id number] Y Date: 06/08/2025 09:40 Dictated By: Jacinto Rivas M.D. Signed By: 06/08/25941 DD/ 9 TD/TT: Relocation Commissioner: [facility] HealthcareRadiology Study observation (narrative)[facility] HealthcareCTA Chest vessels WO and W contrast IVOrdered By: Radiologist Radiology on 59-80-8290NMVT Healthcare Work Phone: aLL CBC WITH AUTO DIFFon 60-03-4386UCLRQGBPA ABSOLUTE MQHK4PKHL HealthcareBasophils/100 WBC (Bld)0.3 %0.2 - 2.0 %NOM Healthcare Eosinophils/100 WBC (Bld)3.6 %0.9 - 7.0 %NOM HealthcareErythrocyte distribution width (RBC) [Ratio]13.4 %11.0 - 15.0 %NOM HealthcareHematocrit (Bld) [Volume fraction]20.6 %Critically low36.0 - 48.0 %NOM HealthcareComment on above: RESULTS CALLED TO [place] RNHemoglobin (Bld) [Mass/Vol]6.8 g/dL Critically low12.0 - 16.0 g/dLNOMA HealthcareComment on above:RESULTS CALLED TO [place] RNIMMATURE GRANULOCYTES ABS AUTO0.05HighNOMA HealthcareImmature granulocytes/100 WBC (Bld)0.7 %High0.0 - 0.5 %[facility] HealthcareInterpretation and review of laboratory resultsAbnormalNOMA HealthcareLYMPHOCYTES ABSOLUTE AUTO1.3 NOM HealthcareLymphocytes/100 WBC (Bld)17.3 %Low20.5 - 60.0 %[facility] SystemH (RBC) [Entitic mass]32.1 pg26.7 - 34.0 pgNOHermann Area District HospitalHC (RBC) [Mass/Vol]33 g/dL29.9 - 35.2 g/dLNOHermann Area District HospitalV (RBC) [Entitic vol]97.2 fL81.0 - 99.0 fL NOM HealthcareMONOCYTES ABSOLUTE AUTO0.6NOMS HealthcareMonocytes/100 WBC (Bld) 8.1 %1.7 - 12.0 %NOM HealthcareNEUTROPHILS ABSOLUTE AUTO5.1NOMS Healthcare Neutrophils/100 WBC (Bld)70 %43.0 - 75.0 %NOM HealthcarePlatelet mean volume (Bld) [Entitic vol]11.2 fL9.5 - 13.5 fLNOLiberty HospitalTBH EO #0.3NOMS Healthcare TB [id number] [facility] RBC2.12LowNOMS [facility] WBC7.3NOMA HealthcareCLINISYNCNALLIANCEHEALTH MADILL [facility] HealthcareALL CBC WITH AUTO DIFFon 77-09-5702DZUPRVUIQ ABSOLUTE [id number] HealthcareBasophils/100 WBC (Bld)0.1 %Low0.2 - 2.0 %NOM HealthcareEosinophils/100 WBC (Bld)0 %Low0.9 - 7.0 %[facility] HospitalErythrocyte distribution width (RBC) [Ratio]13.8 %11.0 - 15.0 %NOM HealthcareHematocrit (Bld) [Volume fraction]26.8 %Low36.0 - 48.0 %[facility] HospitalHemoglobin (Bld) [Mass/Vol]8.8 g/dLLow12.0 - 16.0 g/dLNOLiberty HospitalIMMATURE GRANULOCYTES ABS AUTO0.1HighNOLiberty HospitalImmature granulocytes/100 WBC (Bld)0.9 %High0.0 - 0.5 %[facility] HospitalInterpretation and review of laboratory resultsAbnormalNOLiberty HospitalLYMPHOCYTES ABSOLUTE AUTO1.2NOMS HealthcareLymphocytes/100 WBC (Bld) 10.6 %Low20.5 - 60.0 %[facility] SystemH (RBC) [Entitic mass]32 pg26.7 - 34.0 pg NOMAlvin J. Siteman Cancer CenterHC (RBC) [Mass/Vol]32.8 g/dL29.9 - 35.2 g/dLNOHermann Area District HospitalV (RBC) [Entitic vol]97.5 fL81.0 - 99.0 fLNOMA HealthcareMONOCYTES ABSOLUTE AUTO 0.4NOMS HealthcareMonocytes/100 WBC (Bld)3.7 %1.7 - 12.0 %[facility] NEUTROPHILS ABSOLUTE AUTO9.2HighNOLiberty HospitalNeutrophils/100 WBC (Bld)84.7 % High43.0 - 75.0 %[facility]'s HospitalPlatelet mean volume (Bld) [Entitic vol]12.5 fL 9.5 - 13.5 fLSt. Luke's HospitalTBH EO #0NOMS HealthcareTBH [id number] Healthcare TBH RBC2.75LowNOBoone Hospital Center WBC10.9NOLiberty HospitalCLINISYNCNALLIANCEHEALTH MADILL – MADILL Healthcare ALL CBC WITH AUTO DIFFon 25-15-4283YLLVSTAEO ABSOLUTE MONE5GSTKLiberty Hospital Basophils/100 WBC (Bld)0.3 %0.2 - 2.0 %[facility] HospitalEosinophils/100 WBC (Bld) 0.7 %Low0.9 - 7.0 %[facility] HospitalErythrocyte distribution width (RBC) [Ratio] 13.3 %11.0 - 15.0 %[facility] HospitalHematocrit (Bld) [Volume fraction]29.5 %Low 36.0 - 48.0 %[facility] HospitalHemoglobin (Bld) [Mass/Vol]9.9 g/dLLow12.0 - 16.0 g/dLSt. Luke's HospitalIMMATURE GRANULOCYTES ABS AUTO0.05HighNOLiberty HospitalImmature granulocytes/100 WBC (Bld)0.4 %0.0 - 0.5 %[facility] HospitalInterpretation and review of laboratory resultsAbnormalNOLiberty HospitalLYMPHOCYTES ABSOLUTE AUTO0.9 LowSt. Luke's HospitalLymphocytes/100 WBC (Bld)7.5 %Low20.5 - 60.0 %[facility] MCH (RBC) [Entitic mass]32.6 pg26.7 - 34.0 pgNOLiberty HospitalMCHC (RBC) [Mass/Vol]33.6 g/dL29.9 - 35.2 g/dLSt. Luke's HospitalMCV (RBC) [Entitic vol]97 fL 81.0 - 99.0 fLSt. Luke's HospitalMONOCYTES ABSOLUTE AUTO0.7NOLiberty Hospital Monocytes/100 WBC (Bld)6.2 %1.7 - 12.0 %[facility] HospitalNEUTROPHILS ABSOLUTE AUTO 10HighNOMS Wood County HospitalNeutrophils/100 WBC (Bld)84.9 %High43.0 - 75.0 %[facility] HospitalPlatelet mean volume (Bld) [Entitic vol]12.4 fL9.5 - 13.5 fLSt. Luke's HospitalTB EO #0.1NOMS [facility] [id number] Hospital Center RBC3.04Low [facility] WBC11.8HighSt. Luke's HospitalCLINISYNCNSaint Joseph Health CenterALL CBC WITH AUTO DIFFon 24-04-3161KKYKHXBBS ABSOLUTE [id number] HospitalBasophils/100 WBC (Bld)0.3 %0.2 - 2.0 %NOMCitizens Memorial HealthcareEosinophils/100 WBC (Bld)2.2 %0.9 - 7.0 %[facility] HospitalErythrocyte distribution width (RBC) [Ratio]13.2 %11.0 - 15.0 % [facility] HospitalHematocrit (Bld) [Volume fraction]35 %Low36.0 - 48.0 %[facility] HospitalHemoglobin (Bld) [Mass/Vol]11.9 g/dLLow12.0 - 16.0 g/dLSt. Luke's Hospital IMMATURE GRANULOCYTES ABS AUTO0.03NOLiberty HospitalImmature granulocytes/100 WBC (Bld)0.5 %0.0 - 0.5 %[facility] HospitalInterpretation and review of laboratory resultsAbnormalSt. Luke's HospitalLYMPHOCYTES ABSOLUTE AUTO1.9NOLiberty Hospital Lymphocytes/100 WBC (Bld)28.6 %20.5 - 60.0 %[facility] SystemH (RBC) [Entitic mass]31.8 pg26.7 - 34.0 pgSaint Luke's Hospital (RBC) [Mass/Vol]34 g/dL29.9 - 35.2 g/dLLake Regional Health SystemV (RBC) [Entitic vol]93.6 fL81.0 - 99.0 fLSt. Luke's Hospital MONOCYTES ABSOLUTE AUTO0.6NOMS [facility] HospitalMonocytes/100 WBC (Bld)9.9 %1.7 - 12.0 %[facility] HospitalNEUTROPHILS ABSOLUTE AUTO3.8NOMS [facility] HospitalNeutrophils/100 WBC (Bld)58.5 %43.0 - 75.0 %NOMS HealthcarePlatelet mean volume (Bld) [Entitic vol] 12.6 fL9.5 - 13.5 fLNOMS HealthcareTBH EO #0.1NOMS HealthcareTBH [id number] HealthcareTBH RBC3.74LowNOMS HealthcareTBH WBC6.5NOMS HealthcareCLINISYNCNOMS HealthcareUrinalysis macro (dipstick) panel (U)on 11-76-4096Zseozzlox, UA NegativeNegative - 4(70) +++ mg/dLNOMS HealthcareBlood, UAPositiveNegative - 50 Eliceo/mcLNOMS HealthcareComment on above:TraceClarity, UAClearNOMS Healthcare Color, UAYellowNOMS HealthcareGlucose, UANegativeNegative - 2000(110) ++++ mg/dL NOMS HealthcareInterpretation and review of laboratory resultsAbnormalNOMA HealthcareKetones, UAPositiveNegative - 160(16) ++++ mg/dLNOMS HealthcareComment on above:80mg/dLLeukocytes, UAPositiveNegative - 500+++ Danielle/mcLNOMS Healthcare Comment on above:smallNitrite, UANegativeNegative - PositiveNOMS HealthcarepH, UA75 - 9NOMS HealthcareProtein, UAPositiveNegative - 2000(20) ++++ mg/dLNOMS HealthcareComment on above:30mg/dLSpec Grav, UA1.0151 - 1.03NOMA Healthcare Urobilinogen, UA0.20.2 - 12 mg/dLNOMA HealthcareNOMS HealthcareUS OB BPP W NON-STRESSon 32-87-6875[place]bg[place] [address] Ultrasound Report Signed Patient: CHARLENE PURVIS MR#: [id number] : 1990 Acct:[id number] Age/Sex: 34 / F ADM Date: 05/30/25 Loc: [facility] 250-[address]: Nolan Cortes D.O. Ordering Physician: Nolan Cortes D.O. Date of Service: 05/30/25 Procedure(s): US OB BPP w non-stress Accession Number(s): [id number] cc: Nolan Cortes D.O.; Physician,Non-Staff M.D. The [address] [address] Patient Name: CHARLENE PURVIS MRN: [facility]:[id number] date: 1990 Sex: F Assigned Patient Location: [facility] Current Patient Location: [facility] Accession/Order Number: [id number] Exam Date: 05/30/2025 15:40 Report Date: 05/30/2025 15:41 At the request of: NOLAN CORTES DO Procedure: US OB BPP w non-stress Biophysical profile. Reason for exam: Gestational diabetes COMPARISON: BPP 05/26/2025 TECHNIQUE: Transabdominal imaging of the gravid uterus was obtained. FINDINGS: The mechanical engineering technician reports a BPP of 8 out of 8. BHAVANI is normal at 11 cm. heart rate 138 bpm. US/US OB BPP w non-stress IMPRESSION: BPP 8 out of 8. Impression dictated by: Jacinto Rivas Jr., D.O. 05/30/2025 3:41 PM Dictation Location: [place] [address] Electronically authenticated by: [id number] Y Date: 05/30/2025 15:41 Dictated By: Jacinto Rivas M.D. Signed By: 05/30/25 1544 DD/ 1541 TD/TT: Relocation Commissioner:FARHATadiolluis Radiologist, - 05/30/2025 The [place] [address] Ultrasound Report Signed Patient: CHARLENE PURVIS MR#: [id number] : 1990 Acct:[id number] Age/Sex: 34 / F ADM Date: 05/30/25 Loc: [facility] 250-[address]: Nolan Cortes D.O. Ordering Physician: Nolan Cortes D.O. Date of Service: 05/30/25 Procedure(s): US OB BPP w non-stress Accession Number(s): [id number] cc: Nolan Cortes D.O.; Physician,Non-Staff Nik[facility] [address] [address] Patient Name: CHARLENE PURVIS MRN: [id number] date: 1990 Sex: F Assigned Patient Location: [facility] Current Patient Location: [facility] Accession/Order Number: [id number] Exam Date: 05/30/2025 15:40 Report Date: 05/30/2025 15:41 At the request of: NOLAN CORTES DO Procedure: US OB BPP w non-stress Biophysical profile. Reason for exam: Gestational diabetes COMPARISON: BPP 05/26/2025 TECHNIQUE: Transabdominal imaging of the gravid uterus was obtained. FINDINGS: The mechanical engineering technician reports a BPP of 8 out of 8. BHAVANI is normal at 11 cm. heart rate 138 bpm. US/US OB BPP w non-stress IMPRESSION: BPP 8 out of 8. Impression dictated by: Jacinto Rivas Jr., D.O. 05/30/2025 3:41 PM Dictation Location: [place] [address] Electronically authenticated by: [id number] Y Date: 05/30/2025 15:41 Dictated By: Jacinto Rivas M.D. Signed By: 05/30/25 1544 DD/ 1541 TD/TT: Relocation Commissioner: ROCKY HealthcareRadiology Study observation (narrative)NOMS HealthcareUS OB BPP W NON-STRESSOrdered By: Radiologist Radiology on 94-92-2786AYTH Healthcare Work Phone: US OB BPP W NON-STRESSon [phone] [address] Ultrasound Report Signed Patient: CHARLENE PURVIS MR#: [id number] : 1990 Acct:[id number] Age/Sex: 34 / F ADM Date: 05/26/25 Loc: [facility] Attending Dr: Nolan Cortes D.O. Ordering Physician: Nolan Cortes D.O. Date of Service: 05/26/25 Procedure(s): US OB BPP w non-stress Accession Number(s): [id number] cc: Nolan Cortes D.O.; Physician,Non-Staff Nikky The [place] [id number] Patient Name: CHARLENE PURVIS MRN: [id number]:[id number] date: 1990 Sex: F Assigned Patient Location: [facility] Current Patient Location: Accession/Order Number: [id number] Exam Date: 05/26/2025 16:46 Report Date: 05/26/2025 [...] Maxwell M.D. 05/26/2025 4:48 PM Dictation Location: [place] [address] Electronically authenticated by: [id number] Y Date: 05/26/2025 16:48 Dictated By: Marquis Maxwell M.D. Signed By: 05/26/25 165 DD/ 1648 TD/TT: Relocation Commissioner:FARHATadiology, Radiologist, - 05/26/2025 The [place] [address] Ultrasound Report Signed Patient: CHARLENE PURVIS MR#: [id number] : 1990 Acct:[id number] Age/Sex: 34 / F ADM Date: 05/26/25 Loc: [facility] Attending Dr: Nolan Cortes D.O. Ordering Physician: Nolan Cortes D.O. Date of Service: 05/26/25 Procedure(s): US OB BPP w non-stress Accession Number(s): [id number] cc: Nolan Cortes D.O.; Physician,Non-Staff [place] [address] Patient Name: CHARLENE PURVIS MRN: [facility]:[id number] date: 1990 Sex: F Assigned Patient Location: [facility] Current Patient Location: Accession/Order Number: [id number] Exam Date: 05/26/2025 16:46 Report Date: 05/26/2025 [...] Maxwell M.D. 05/26/2025 4:48 PM Dictation Location: [place] [address] Electronically authenticated by: [id number] Y Date: 05/26/2025 16:48 Dictated By: Marquis Maxwell M.D. Signed By: 05/26/25 165 DD/ TD/TT: Relocation Commissioner: NOMChip HealthcareRadiology Study observation (narrative)ROCKY HealthcareUS OB BPP W NON-STRESSOrdered By: Radiologist Radiology on 79-75-6254DXSV [facility] Work Phone: US OB GROWTHon [phone], [place] [address] Ultrasound Report Signed Patient: CHARLENE PURVIS MR#: [id number] : 1990 Acct:[id number] Age/Sex: 34 / F ADM Date: 05/16/25 Loc: US Attending Dr: Nolan Cortes D.O. Ordering Physician: Nolan Cortes D.O. Date of Service: 05/16/25 Procedure(s): US OB growth Accession Number(s): [id number] cc: Nolan Cortes D.O.; Physician,Non-Staff [place] [address] Patient Name: CHARLENE PURVIS MRN: [id number]:[id number] date: 1990 Sex: F Assigned Patient Location: US Current Patient Location: Accession/Order Number: [id number] Exam Date: 05/25/2025 09:01 Report Date: 05/25/2025 [...] AGE (EFW 94%). Impression dictated by: Grace ePña M.D. 05/25/2025 9:12 AM Dictation Location: [place] [address] Electronically authenticated by: [id number] Y Date: 05/25/2025 09:12 Dictated By: Grace Peña M.D. Signed By: 05/25/25914 DD/ 1 TD/TT: Relocation Commissioner:FARHATadiologshoaib, Radiologist, - 05/25/2025 [place] [address] Ultrasound Report Signed Patient: CHARLENE PURVIS MR#: [id number] : 1990 Acct:[id number] Age/Sex: 34 / F ADM Date: 05/16/25 Loc: US Attending Dr: Nolan Cortes D.O. Ordering Physician: Nolan Cortes D.O. Date of Service: 05/16/25 Procedure(s): US OB growth Accession Number(s): [id number] cc: Nolan Cortes D.O.; Physician,Non-Staff Nikky The [place] [address] Patient Name: CHARLENE PURVIS MRN: [id number]:[id number] date: 1990 Sex: F Assigned Patient Location: US Current Patient Location: Accession/Order Number: [id number] Exam Date: 05/25/2025 09:01 Report Date: 05/25/2025 [...] Peña M.D. 05/25/2025 9:12 AM Dictation Location: [place] [address] Electronically authenticated by: [id number] Y Date: 05/25/2025 09:12 Dictated By: Grace Peña M.D. Signed By: 05/25/25914 DD/ 1 TD/TT: Relocation Commissioner: ROCKY HealthcareRadiology Study observation (narrative)ROCKY AnglinUS OB GROWTHOrdered By: Radiologist Radiology on 15-27-9882RVAI [employer]OS[employer] Work Phone: US OB BPP W NON-STRESSon [phone], [place] [address] Ultrasound Report Signed Patient: CHARLENE PURVIS MR#: [id number] : 1990 Acct:[id number] Age/Sex: 34 / F ADM Date: 05/23/25 Loc: US Attending Dr: Nolan Cortes D.O. Ordering Physician: Nolan Cortes D.O. Date of Service: 05/23/25 Procedure(s): US OB BPP w non-stress Accession Number(s): [id number] cc: Nolan Cortes D.O.; Physician,Non-Staff Nik[facility] The [place] [id number] Patient Name: CHARLENE PURVIS MRN: [id number]:[id number] date: 1990 Sex: F Assigned Patient Location: [facility] Current Patient Location: Accession/Order Number: [id number] Exam Date: 05/24/2025 06:57 Report Date: 05/24/2025 [...] Peña M.D. 05/24/2025 6:59 AM Dictation Location: [place] [address] Electronically authenticated by: [id number] Y Date: 05/24/2025 06:59 Dictated By: Grace Peña M.D. Signed By: 05/24/25 0702 DD/ 0659 TD/TT: Relocation Commissioner:LEXHRadiology, Radiologist, - 05/24/2025 [place] [address] Ultrasound Report Signed Patient: CHARLENE PURVIS MR#: [id number] : 1990 Acct:[id number] Age/Sex: 34 / F ADM Date: 05/23/25 Loc: US Attending Dr: Nolan Cortes D.O. Ordering Physician: Nolan Cortes D.O. Date of Service: 05/23/25 Procedure(s): US OB BPP w non-stress Accession Number(s): [id number] cc: Nolan Cortes D.O.; Physician,Non-Staff Nikky The [place] [id number] Patient Name: CHARLENE PURVIS MRN: [facility]:[id number] date: 1990 Sex: F Assigned Patient Location: [facility] Current Patient Location: Accession/Order Number: [id number] Exam Date: 05/24/2025 06:57 Report Date: 05/24/2025 [...] Peña M.D. 05/24/2025 6:59 AM Dictation Location: [place] [address] Electronically authenticated by: [id number] Y Date: 05/24/2025 06:59 Dictated By: Grace Peña M.D. Signed By: 05/24/25 0702 DD/ 0659 TD/TT: Relocation Commissioner: NOMhCip HealthcareRadiology Study observation (narrative)NOMS HealthcareUS OB BPP W NON-STRESSOrdered By: Radiologist Radiology on 79-55-0634WQHH Healthcare Work Phone: Urinalysis macro (dipstick) panel (U)on 05-24-2025 Bilirubin, UATraceNegative - 4(70) +++ mg/dLNOMS HealthcareBlood, UANegative Negative - 50 Eliceo/mcLNOMS HealthcareClarity, UAClearNOMS HealthcareColor, UA YellowNOMS HealthcareGlucose, UANegativeNegative - 2000(110) ++++ mg/dLNOMA HealthcareInterpretation and review of laboratory resultsAbnormalNOMA Healthcare Ketones, UANegativeNegative - 160(16) ++++ mg/dLNOMA HealthcareLeukocytes, UA NegativeNegative - 500+++ Danielle/mcLNOMS HealthcareNitrite, UANegativeNegative - PositiveNOMS HealthcarepH, UA65 - 9NOMS HealthcareProtein, UATraceNegative - 2000(20) ++++ mg/dLNOMS HealthcareSpec Grav, UA1.031 - 1.03NOMS Healthcare Urobilinogen, UA1.00.2 - 12 mg/dLNOMS HealthcareNOMS HealthcareUS OB BPP W NON-STRESSon 69-08-6065GrxCrap[place], [place] [address] Ultrasound Report Signed Patient: CHARLENE PURVIS MR#: [id number] : 1990 Acct:[id number] Age/Sex: 34 / F ADM Date: 05/16/25 Loc: US Attending Dr: Nolan Cortes D.O. Ordering Physician: Nolan Cortes D.O. Date of Service: 05/16/25 Procedure(s): US OB BPP w non-stress Accession Number(s): [id number] cc: Nolan Cortes D.O.; Physician,Non-Staff Nik[facility] The [place] [id number] Patient Name: CHARLENE PURVIS MRN: [facility]:[id number] date: 1990 Sex: F Assigned Patient Location: US Current Patient Location: Accession/Order Number: [id number] Exam Date: 05/16/2025 22:56 Report Date: 05/16/2025 [...] PM Dictation Location: [facility]-29 Electronically authenticated by: [id number] Y Date: 05/16/2025 23:00 Dictated By: Mehul Brewer M.D. Signed By: 05/16/252302 DD/ 99 TD/TT: Relocation Commissioner:FARHATadiologshoaib, Radiologist, - 05/16/2025 [place] [address] Ultrasound Report Signed Patient: CHARLENE PURVIS MR#: [id number] : 1990 Acct:[id number] Age/Sex: 34 / F ADM Date: 05/16/25 Loc: US Attending Dr: Nolan Cortes D.O. Ordering Physician: Nolan Cortes D.O. Date of Service: 05/16/25 Procedure(s): US OB BPP w non-stress Accession Number(s): [id number] cc: Nolan Cortes D.O.; Physician,Non-Staff Nik[facility] The [place] [id number] Patient Name: CHARLENE PURVIS MRN: [id number] date: 1990 Sex: F Assigned Patient Location: US Current Patient Location: Accession/Order Number: [id number] Exam Date: 05/16/2025 22:56 Report Date: 05/16/2025 [...] Brewer M.D. 05/16/2025 11:00 PM Dictation Location: [facility] Electronically authenticated by: [id number] Y Date: 05/16/2025 23:00 Dictated By: Mehul Brewer M.D. Signed By: 05/16/252302 DD/ 99 TD/TT: Relocation Commissioner: ROCKY HealthcareRadiology Study observation (narrative)NOMChip HealthcareUS OB BPP W NON-STRESSOrdered By: Radiologist Radiology on 03-47-1575QKIR Healthcare Work Phone: US OB BPP W NON-STRESSon 85-98-0905MjjCrap[place], [place] [address] Ultrasound Report Signed Patient: CHARLENE PURVIS MR#: [id number] : 1990 Acct:[id number] Age/Sex: 34 / F ADM Date: 05/09/25 Loc: [facility] 250-[address]: Nolan Cortes D.O. Ordering Physician: Nolan Cortes D.O. Date of Service: 05/09/25 Procedure(s): US OB BPP w non-stress Accession Number(s): [id number] cc: Nolan Cortes D.O.; Physician,Non-Staff Nikky The [place] [address] Patient Name: CHARLENE PURVIS MRN: [id number]:[id number] date: 1990 Sex: F Assigned Patient Location: [facility] Current Patient Location: [facility] Accession/Order Number: [id number] Exam Date: 05/09/2025 15:50 Report Date: 05/09/2025 15:51 At the request of: NOLAN CORTES DO Procedure: US OB BPP w non-stress Biophysical profile. Reason for exam: Gestational diabetes. COMPARISON: BDP 05/02/2025. TECHNIQUE: Transabdominal imaging of the gravid uterus was obtained. FINDINGS: Ticket Dispatcher reports a BPP of 8 out of 8. BHAVANI is normal at 13.2 cm. heart rate 161 bpm. US/US OB BPP w non-stress Impression: BPP 8 out of 8. Impression dictated by: Jacinto iRvas Jr., D.O. 05/09/2025 3:51 PM Dictation Location: [place] [address] Electronically authenticated by: [id number] Y Date: 05/09/2025 15:51 Dictated By: Jacinto Rivas M.D. Signed By: 05/09/25 1554 DD/ 1551 TD/TT: Relocation Commissioner:LEXHRadiologshoaib, Radiologist, - 05/09/2025 [place] [address] Ultrasound Report Signed Patient: CHARLENE PURVIS MR#: [id number] : 1990 Acct:[id number] Age/Sex: 34 / F ADM Date: 05/09/25 Loc: [facility] 250-[address]: Nolan Cortes D.O. Ordering Physician: Nolan Cortes D.O. Date of Service: 05/09/25 Procedure(s): US OB BPP w non-stress Accession Number(s): [id number] cc: Nolan Cortes D.O.; Physician,Non-Staff Nikky [place] [address] Patient Name: CHARLENE PURVIS MRN: [id number]:[id number] date: 1990 Sex: F Assigned Patient Location: [facility] Current Patient Location: [facility] Accession/Order Number: [id number] Exam Date: 05/09/2025 15:50 Report Date: 05/09/2025 15:51 At the request of: NOLAN CORTES DO Procedure: US OB BPP w non-stress Biophysical profile. Reason for exam: Gestational diabetes. COMPARISON: BDP 05/02/2025. TECHNIQUE: Transabdominal imaging of the gravid uterus was obtained. FINDINGS: Ticket Dispatcher reports a BPP of 8 out of 8. BHAVANI is normal at 13.2 cm. heart rate 161 bpm. US/US OB BPP w non-stress Impression: BPP 8 out of 8. Impression dictated by: Jacinto Rivas Jr., D.O. 05/09/2025 3:51 PM Dictation Location: [place] [address] Electronically authenticated by: [id number] Y Date: 05/09/2025 15:51 Dictated By: Jacinto Rivas M.D. Signed By: 05/09/25 1554 DD/ 1551 TD/TT: Relocation Commissioner: ROCKY HealthcareRadiology Study observation (narrative)NOMS HealthcareUS OB BPP W NON-STRESSOrdered By: Radiologist Radiology on 80-10-0963XCGR Healthcare Work Phone: US OB BPP W NON-STRESSon [phone], [place] [address] Ultrasound Report Signed Patient: CHARLENE PURVIS MR#: [id number] : 1990 Acct:[id number] Age/Sex: 34 / F ADM Date: 05/02/25 Loc: US Attending Dr: Nolan Cortes D.O. Ordering Physician: Nolan Cortes D.O. Date of Service: 05/02/25 Procedure(s): US OB BPP w non-stress Accession Number(s): [id number] cc: Nolan Cortes D.O.; Physician,Non-Staff Nikky The [place] [address] Patient Name: CHARLENE PURVIS MRN: [facility]:[id number] date: 1990 Sex: F Assigned Patient Location: [facility] Current Patient Location: Accession/Order Number: [id number] Exam Date: 05/02/2025 16:28 Report Date: 05/02/2025 [...] Maxwell M.D. 05/02/2025 4:30 PM Dictation Location: [place] [address] Electronically authenticated by: [id number] Y Date: 05/02/2025 16:30 Dictated By: Marquis Maxwell M.D. Signed By: 05/02/25 163 DD/ 163 TD/TT: Relocation Commissioner:LEXHRadiology, Radiologist, - 05/02/2025 [place] [address] Ultrasound Report Signed Patient: CHARLENE PURVIS MR#: [id number] : 1990 Acct:[id number] Age/Sex: 34 / F ADM Date: 05/02/25 Loc: US Attending Dr: Nolan Cortes D.O. Ordering Physician: Nolan Cortes D.O. Date of Service: 05/02/25 Procedure(s): US OB BPP w non-stress Accession Number(s): [id number] cc: Nolan Cortes D.O.; Physician,Non-Staff Nikky The [address] [id number] Patient Name: CHARLENE PURVIS MRN: [id number]:[id number] date: 1990 Sex: F Assigned Patient Location: [facility] Current Patient Location: Accession/Order Number: [id number] Exam Date: 05/02/2025 16:28 Report Date: 05/02/2025 [...] Maxwell M.D. 05/02/2025 4:30 PM Dictation Location: [employer] Electronically authenticated by: [id number] Y Date: 05/02/2025 16:30 Dictated By: Marquis Maxwell M.D. Signed By: 05/02/251631 DD/ 29 TD/TT: Relocation Commissioner: CHANNING HOMEChip HealthcareRadiology Study observation (narrative)NOMS HealthcareUS OB BPP W NON-STRESSOrdered By: Radiologist Radiology on 66-73-0914IKHC Healthcare Work Phone: Urinalysis macro (dipstick) panel (U)on 05-02-2025 Bilirubin, UANegativeNegative - 4(70) +++ mg/dLNOMS HealthcareBlood, UANegative Negative - 50 Eliceo/mcLNOMS HealthcareClarity, UAClearNOMS HealthcareColor, UA YellowNOMS HealthcareGlucose, UANegativeNegative - 2000(110) ++++ mg/dLNOMS HealthcareInterpretation and review of laboratory resultsAbnormalNOMA Healthcare Ketones, UAPositiveNegative - 160(16) ++++ mg/dLNOMS HealthcareComment on above: 160Leukocytes, UAPositiveNegative - 500+++ Danielle/mcLNOMS HealthcareComment on above:smallNitrite, UANegativeNegative - PositiveNOMS HealthcarepH, UA6.55 - 9 NOMS HealthcareProtein, UAPositiveNegative - 2000(20) ++++ mg/dLNOMS Healthcare Comment on above:30Spec Grav, UA1.021 - 1.03NOMS HealthcareUrobilinogen, UA0.2 0.2 - 12 mg/dLNOMS HealthcareNOMS HealthcareUS OB BPP W NON-STRESSon 18-37-0980Rvl [place] [address] Ultrasound Report Signed Patient: CHARLENE PURVIS MR#: [id number] : 1990 Acct:[id number] Age/Sex: 34 / F ADM Date: 04/25/25 Loc: US Attending Dr: Nolan Cortes D.O. Ordering Physician: Nolan Cortes D.O. Date of Service: 04/25/25 Procedure(s): US OB BPP w non-stress Accession Number(s): [id number] cc: Nolan Cortes D.O.; Physician,Non-Staff Nikky The [place] [phone] Patient Name: CHARLENE PURVIS MRN: [id number]:[id number] date: 1990 Sex: F Assigned Patient Location: [facility] Current Patient Location: Accession/Order Number: [id number] Exam Date: 04/25/2025 21:35 Report Date: 04/25/2025 [...] Olvera M.D. 04/25/2025 9:36 PM Dictation Location: [place] [address] Electronically authenticated by: [id number] Y Date: 04/25/2025 21:36 Dictated By: Harlan Olvera D.O. Signed By: 04/25/252137 DD/ 35 TD/TT: Relocation Commissioner:FARHATadiologshoaib, Radiologist, - 04/25/2025 The [place] [address] Ultrasound Report Signed Patient: CHARLENE PURVIS MR#: [id number] : 1990 Acct:[id number] Age/Sex: 34 / F ADM Date: 04/25/25 Loc: US Attending Dr: Nolan Cortes D.O. Ordering Physician: Nolan Cortes D.O. Date of Service: 04/25/25 Procedure(s): US OB BPP w non-stress Accession Number(s): [id number] cc: Nolan Cortes D.O.; Physician,Non-Staff Nikky [place] [address] Patient Name: CHARLENE PURVIS MRN: [id number] date: 1990 Sex: F Assigned Patient Location: [facility] Current Patient Location: Accession/Order Number: [id number] Exam Date: 04/25/2025 21:35 Report Date: 04/25/2025 [...] Olvera M.D. 04/25/2025 9:36 PM Dictation Location: [place] [address] Electronically authenticated by: [id number] Y Date: 04/25/2025 21:36 Dictated By: Harlan Olvera D.O. Signed By: 04/25/252137 DD/ 35 TD/TT: Relocation Commissioner: ROCKY HealthcareRadiology Study observation (narrative)ROCKY AnglinUS OB BPP W NON-STRESSOrdered By: Radiologist Radiology on 47-19-8507DTPU Healthcare Work Phone: US OB BPP W NON-STRESSon 26-74-4553LqqCrapo, [place] [address] Ultrasound Report Signed Patient: CHARLENE PURVIS MR#: [id number] : 1990 Acct:[id number] Age/Sex: 34 / F ADM Date: 04/18/25 Loc: US Attending Dr: Nolan Cortes D.O. Ordering Physician: Nolan Cortes D.O. Date of Service: 04/18/25 Procedure(s): US OB BPP w non-stress Accession Number(s): [id number] cc: Nolan Cortes D.O.; Physician,Non-Staff Nikky The [place] [id number] Patient Name: CHARLENE PURVIS MRN: [facility]:[id number] date: 1990 Sex: F Assigned Patient Location: [facility] Current Patient Location: Accession/Order Number: [id number] Exam Date: 04/18/2025 16:06 Report Date: 04/18/2025 [...] Olvera M.D. 04/18/2025 4:07 PM Dictation Location: [place] [address] Electronically authenticated by: [id number] Y Date: 04/18/2025 16:07 Dictated By: Harlan Olvera D.O. Signed By: 04/18/25 1609 DD/ 1607 TD/TT: Relocation Commissioner:FARHATadiologshoaib, Radiologist, MD - 04/18/2025 The [place] [address] Ultrasound Report Signed Patient: CHARLENE PURVIS MR#: [id number] : 1990 Acct:[id number] Age/Sex: 34 / F ADM Date: 04/18/25 Loc: US Attending Dr: Nolan Cortes D.O. Ordering Physician: Nolan Cortes D.O. Date of Service: 04/18/25 Procedure(s): US OB BPP w non-stress Accession Number(s): [id number] cc: Nolan Cortes D.O.; Physician,Non-Staff Nikky [place] [address] Patient Name: CHARLENE PURVIS MRN: [id number] date: 1990 Sex: F Assigned Patient Location: [facility] Current Patient Location: Accession/Order Number: [id number] Exam Date: 04/18/2025 16:06 Report Date: 04/18/2025 [...] Olvera M.D. 04/18/2025 4:07 PM Dictation Location: [place] [address] Electronically authenticated by: [id number] Y Date: 04/18/2025 16:07 Dictated By: Harlan Olvera D.O. Signed By: 04/18/25 1609 DD/ 1607 TD/TT: Relocation Commissioner: [facility] Healthcare[facility] Study observation (narrative)NOMS HealthcareUS OB BPP W NON-STRESSOrdered By: Radiologist Radiology on 83-63-0239XPXM [facility] Work Phone: Urinalysis macro (dipstick) panel (U)on 04-18-2025 Bilirubin, UANegativeNegative - 4(70) +++ mg/dLNOMS HealthcareBlood, UANegative Negative - 50 Eliceo/mcLNOMS HealthcareClarity, UAClearNOMS HealthcareColor, UA Light YellowNOMS HealthcareGlucose, UAPositiveNegative - 2000(110) ++++ mg/dL NOMS HealthcareComment on above:250Interpretation and review of laboratory resultsAbnormalNOMS HealthcareKetones, UAPositiveNegative - 160(16) ++++ mg/dL NOMS HealthcareComment on above:15Leukocytes, UAPositiveNegative - 500+++ Danielle/mcLNOMS HealthcareComment on above:smallNitrite, UANegativeNegative - PositiveNOMS HealthcarepH, UA65 - 9NOMS HealthcareProtein, UANegativeNegative - 2000(20) ++++ mg/dLNOMS HealthcareSpec Grav, UA1.0051 - 1.03NOMS Healthcare Urobilinogen, UA0.20.2 - 12 mg/dLNOMS HealthcareNOMS HealthcareUS OB BPP W NON-STRESSon 88-19-3272[place], [place] [address] Ultrasound Report Signed Patient: CHARLENE PURVIS MR#: [id number] : 1990 Acct:[id number] Age/Sex: 34 / F ADM Date: 04/11/25 Loc: US Attending Dr: Nolan Cortes D.O. Ordering Physician: Nolan Cortes D.O. Date of Service: 04/11/25 Procedure(s): US OB BPP w non-stress Accession Number(s): [id number] cc: Nolan Cortes D.O.; Physician,Non-Staff M.DMya The [place] [id number] Patient Name: CHARLENE PURVIS MRN: [id number] date: 1990 Sex: F Assigned Patient Location: [facility] Current Patient Location: Accession/Order Number: [id number] Exam Date: 04/11/2025 16:04 Report Date: 04/11/2025 [...] Olvera M.D. 04/11/2025 4:05 PM Dictation Location: [place] [address] Electronically authenticated by: [id number] Y Date: 04/11/2025 16:05 Dictated By: Harlan Olvera D.O. Signed By: 04/11/25 1607 DD/ 1605 TD/TT: Relocation Commissioner:LEXHRadiology, Radiologist, - 04/11/2025 [place] [address] Ultrasound Report Signed Patient: CHARLENE PURVIS MR#: [id number] : 1990 Acct:[id number] Age/Sex: 34 / F ADM Date: 04/11/25 Loc: US Attending Dr: Nolan Cortes D.O. Ordering Physician: Nolan Cortes D.O. Date of Service: 04/11/25 Procedure(s): US OB BPP w non-stress Accession Number(s): [id number] cc: Nolan Cortes D.O.; Physician,Non-Staff Nikky [address] [place] [id number] Patient Name: CHARLENE PURVIS MRN: [id number] date: 1990 Sex: F Assigned Patient Location: [facility] Current Patient Location: Accession/Order Number: [id number] Exam Date: 04/11/2025 16:04 Report Date: 04/11/2025 [...] Olvera M.D. 04/11/2025 4:05 PM Dictation Location: [place] [address] Electronically authenticated by: [id number] Y Date: 04/11/2025 16:05 Dictated By: Harlan Olvera D.O. Signed By: 04/11/25 160 DD/ 04 TD/TT: Relocation Commissioner: [facility] HealthcareRadiology Study observation (narrative)NOMS HealthcareUS OB BPP W NON-STRESSOrdered By: Radiologist Radiology on 44-60-9772QTRJ [facility] Work Phone: Urinalysis macro (dipstick) panel (U)on 04-05-2025 Bilirubin, UANegativeNegative - 4(70) +++ mg/dLNOMS HealthcareBlood, UANegative Negative - 50 Eliceo/mcLNOMS HealthcareClarity, UAClearNOMS HealthcareColor, UA YellowNOMS HealthcareGlucose, UAPositiveNegative - 2000(110) ++++ mg/dLNOMS HealthcareComment on above:100mg/dLInterpretation and review of laboratory resultsAbnormalNOMS HealthcareKetones, UAPositiveNegative - 160(16) ++++ mg/dL [facility] HealthcareComment on above:TraceLeukocytes, UAPositiveNegative - 500+++ Danielle/mcLNOMS HealthcareComment on above:smallNitrite, UANegativeNegative - PositiveNOMS HealthcarepH, UA65 - 9NOMS HealthcareProtein, UATraceNegative - 2000(20) ++++ mg/dLNOMS HealthcareSpec Grav, UA1.0251 - 1.03N[facility] Urobilinogen, UA0.20.2 - 12 mg/dLNOMS HealthcareNOMS HealthcarePOCT Hemoglobin A1con 86-67-7722StX4u (Bld) [Mass fraction]5.8 %4 - 7 %[facility] Health SystemUS OB INCOMPLETE ANATOMYon 74-89-4873[address] [address] Ultrasound Report Signed Patient: CHARLENE PURVIS MR#: [id number] : 1990 Acct:[id number] Age/Sex: 34 / F ADM Date: 03/05/25 Loc: US Attending Dr: Nolan Cortes D.O. Ordering Physician: Nolan Cortes D.O. Date of Service: 03/05/25 Procedure(s): US OB incomplete anatomy Accession Number(s): [id number] cc: Nolan Cortes D.O.; Physician,Non-Staff Nikky [address] [place] [address] Patient Name: CHARLENE PURVIS MRN: [id number] date: 1990 Sex: F Assigned Patient Location: US Current Patient Location: Accession/Order Number: [id number] Exam Date: 03/07/2025 12:39 Report Date: 03/07/2025 [...] Jr., D.O. 03/07/2025 12:42 PM Dictation Location: [place] [address] Electronically authenticated by: [id number] Y Date: 03/07/2025 12:42 Dictated By: Jacinto Rivas M.D. Signed By: 03/07/25 1244 DD/ 1242 TD/TT: Relocation Commissioner:LEXHRadiology, Radiologist, - 03/07/2025 [place] [address] Ultrasound Report Signed Patient: CHARLENE PURVIS MR#: [id number] : 1990 Acct:[id number] Age/Sex: 34 / F ADM Date: 03/05/25 Loc: US Attending Dr: Nolan Cortes D.O. Ordering Physician: Nolan Cortes D.O. Date of Service: 03/05/25 Procedure(s): US OB incomplete anatomy Accession Number(s): [id number] cc: Nolan Cortes D.O.; Physician,Non-Staff Nik[place] [address] Patient Name: CHARLENE PURVIS MRN: [id number] date: 1990 Sex: F Assigned Patient Location: US Current Patient Location: Accession/Order Number: [id number] Exam Date: 03/07/2025 12:39 Report Date: 03/07/2025 [...] Jr., D.O. 03/07/2025 12:42 PM Dictation Location: [place] [address] Electronically authenticated by: [id number] Y Date: 03/07/2025 12:42 Dictated By: Jacinto Rivas M.D. Signed By: 03/07/25 1244 DD/ 1242 TD/TT: Relocation Commissioner: ROCKY HealthcareRadiology Study observation (narrative)ROCKY AnglinUS OB INCOMPLETE ANATOMYOrdered By: Radiologist Radiology on 83-09-3404A[facility] Work Phone: Urinalysis macro (dipstick) panel (U)on 02-21-2025 Bilirubin, UANegativeNegative - 4(70) +++ mg/dLNOMS HealthcareBlood, UANegative Negative - 50 Eliceo/mcLNOMS HealthcareClarity, UAClearNOMS HealthcareColor, UA YellowNOMS HealthcareGlucose, UANegativeNegative - 2000(110) ++++ mg/dLNOMS HealthcareInterpretation and review of laboratory resultsAbnormalNOMS Healthcare Ketones, UAPositiveNegative - 160(16) ++++ mg/dLNOMS HealthcareComment on above: 40mg/dLLeukocytes, UAPositiveNegative - 500+++ Danielle/mcLNOMS HealthcareComment on above:smallNitrite, UANegativeNegative - PositiveNOMS HealthcarepH, UA65 - 9NOMS HealthcareProtein, UAPositiveNegative - 2000(20) ++++ mg/dLNOMS Healthcare Comment on above:30mg/dLSpec Grav, UA1.021 - 1.03NOMS HealthcareUrobilinogen, UA 0.20.2 - 12 mg/dLNOMS HealthcareNOMS HealthcareGlucose random or fasting- POCTon 22-47-7039Yvignjxc Glucose Fasting Or Random (Fbs)110[facility] SystemUS OB 14+ WEEKS ANATOMY SCANon 32-16-8897WW OB 14+ WEEKS ANATOMY SCANEXAM: US OB 14+ WEEKS ANATOMY SCAN HISTORY: anatomy. COMPARISON: OB ultrasound 11/26/2024. TECHNIQUE: Two-dimensional transabdominal grayscale ultrasound imaging of the pelvis was performed.Exam limited due to patient body habitus. FINDINGS: [...] II, MD, PHD at 15-Feb-2025 11:25:23 PM [facility] TeleradiologyNormalNot AvailableComment on above:Order Comment: US OB ANATOMY SINGLE W US OB CERVICAL LENGTH Estimated Date of Delivery: 06/24/25 Gestational Age as of 12/06/2024: 81v0bHZD, SERUM, OPEN SPINA BIFIDAon 02-09-2025 AFP MOM0.84.NOMS HealthcareAFP VALUE34.5 ng/mL.NOMS HealthcareCOMMENT:Comment. NOMS HealthcareComment on above:Tiffany Shah, Ph.D., [facility] Director References: Available Upon Request. Multiples Of Median Cutoffs For AFP Elevations Steiner 2.5 Black 2.8 IDD 2.0 Twins 4.5 Abbreviation Definitions IDD - Insulin Dep Diabetes OSBR - Open Spina Bifida Risk For further inquiries contact [employer] at [phone]. This test was developed and its performance characteristics determined by [facility]. It has not been cleared or approved by the Food and Drug Administration. Performed at: [facility] [address] [place], [place] [id number] Components Engineer: Rogelio Rice [facility]ly [facility], Phone: [phone] GEST. AGE ON COLLECTION DATE20.4. weeksNOMA HealthcareGESTAT. AGE BASED ONLMP. [facility] HealthcareComment on above:Recalculations are not recommended when gestational dating by LMP and ultrasound are within 10 days. INSULIN DEP DIABETESNo.[facility] HealthcareINTERPRETATIONComment.[facility] Comment on above:Interpretation: Screen Negative This result is screen negative [...] Customer Services to discuss available options. The [place] [employer] recommends amniocentesis be offered to women age 35 and older. MATERNAL AGE AT EDD32.5. yrNOMA HealthcareMULTIPLE GESTATIONNo.[facility] OSBR RISK 1 [id number].[facility] HealthcareRACECaucasian.[facility] HospitalRESULTSReport. St[facility] Luke's HospitalTEST RESULTS:Negative.[facility]'s HospitalSnwadrgqtoAOOYGY714. lbsNOMA HealthcarePREGNANCY N N LMP [id number] 3 18 N 1 Y 289 N N N N N White/ CLINISYNCNOMA HealthcareChlamydia/GC by PCR Holley Swabon 34-99-4699Zyeipqqvyzb Dna(Pcr)Not detectedProUniversity Hospitals [facility] SystemChlamydia/GC by PCR ThinPrep fluidon 45-00-1524Osjizyupa Dna(Pcr)Not detectedProUniversity Hospitals [facility] Medical [facility] SystemNo Panel Informationon 53-41-4131OzpQshwzz Health SystemALL CBC WITH AUTO DIFFon 41-51-4068BTDLCJXTF ABSOLUTE WKOQ1OTZF HealthcareBasophils/100 WBC (Bld)0.3 %0.2 - 2.0 %[facility] HospitalEosinophils/100 WBC (Bld)3.7 %0.9 - 7.0 %[facility] Erythrocyte distribution width (RBC) [Ratio]13.1 %11.0 - 15.0 %[facility] IMMATURE GRANULOCYTES ABS AUTO0.04HighNOMS HealthcareImmature granulocytes/100 WBC (Bld)0.4 %0.0 - 0.5 %[facility] HospitalInterpretation and review of laboratory resultsAbnormalSt. Luke's HospitalLYMPHOCYTES ABSOLUTE DGQM9RRMV [facility] Lymphocytes/100 WBC (Bld)21.3 %20.5 - 60.0 %[facility] SystemH (RBC) [Entitic mass]32.6 pg26.7 - 34.0 pgLake Regional Health SystemHC (RBC) [Mass/Vol]34.8 g/dL29.9 - 35.2 g/dLLake Regional Health SystemV (RBC) [Entitic vol]93.6 fL81.0 - 99.0 fLSt. Luke's HospitalMONOCYTES ABSOLUTE AUTO0.5NOLiberty HospitalMonocytes/100 WBC (Bld)5.1 % 1.7 - 12.0 %[facility] HospitalNEUTROPHILS ABSOLUTE AUTO6.4NOLiberty Hospital Neutrophils/100 WBC (Bld)69.2 %43.0 - 75.0 %[facility] HospitalPlatelet mean volume (Bld) [Entitic vol]10.6 fL9.5 - 13.5 fLSt. Luke's HospitalTBH EO #0.3N[facility]S Healthcare TBH [id number] Hospital Center RBC4.36NOLiberty HospitalTB WBC9.2NSaint Joseph Health Center CLINISYNCCBC without diffon 22-46-5465Iaxahzvvt (Bld) [#/Vol]139 10*3/uL [facility] HospitalGlucose tolerance, 1 houron 47-83-7476Shatdqc Tolerance Test 1 Kslz251NiyMsbnljHighland District HospitalLaboratory - Hematology and Cell countson 32-96-3086Kmyccfxdce (Bld) [Volume fraction]40.8 %[facility] HospitalHemoglobin (Bld) [Mass/Vol]14.2 g/dLSt. Luke's HospitalNo Panel Informationon 67-33-8631ZNOHSt. Luke's HospitalUrinalysis macro (dipstick) panel (U)on 78-38-7057Ispmwdees, UA NegativeNegative - 4(70) +++ mg/dLNOMA HealthcareBlood, UANegativeNegative - 50 Eliceo/mcLNOMA HealthcareClarity, UAClearNOMA HealthcareColor, UAYellowNOMA HealthcareGlucose, UAPositiveNegative - 2000(110) ++++ mg/dLMOUNTAIN [facility]IEW [facility] Healthcare Comment on above:250mg/dLInterpretation and review of laboratory resultsAbnormal [facility] HealthcareKetones, UANegativeNegative - 160(16) ++++ mg/dLMOUNTAIN VIEW [facility]PITAL Healthcare Leukocytes, UATraceNegative - 500+++ Danielle/mcLNOMA HealthcareNitrite, UANegative Negative - PositiveNOMA HealthcarepH, UA65 - 9NOMA HealthcareProtein, UAPositive Negative - 1999(20) ++++ mg/dLMOUNTAIN VIEW [facility]ITAL HealthcareComment on above:30mg/dLSpec Grav, UA1.031 - 1.03NOMA HealthcareUrobilinogen, UA0.20.2 - 12 mg/dLMOUNTAIN VIEW [facility]OSPITAL Healthcare [facility] HealthcareALL CBC WITH AUTO DIFFon 37-96-4632AJSLXURKI ABSOLUTE QXPV9KQTULiberty HospitalBasophils/100 WBC (Bld)0.3 %0.2 - 2.0 %[facility] HospitalEosinophils/100 WBC (Bld)4.4 %0.9 - 7.0 %[facility] HospitalErythrocyte distribution width (RBC) [Ratio]12 %11.0 - 15.0 %[facility] HospitalIMMATURE GRANULOCYTES ABS AUTO0.03NOLiberty HospitalImmature granulocytes/100 WBC (Bld)0.3 %0.0 - 0.5 %[facility] LYMPHOCYTES ABSOLUTE AUTO2.1NOMS [facility] County HospitalLymphocytes/100 WBC (Bld)24.6 %20.5 - 60.0 %[facility] SystemH (RBC) [Entitic mass]31.7 pg26.7 - 34.0 pgLake Regional Health SystemHC (RBC) [Mass/Vol]34.4 g/dL29.9 - 35.2 g/dLLake Regional Health SystemV (RBC) [Entitic vol]92.1 fL81.0 - 99.0 fLSt. Luke's HospitalMONOCYTES ABSOLUTE AUTO0.6NOMS HealthcareMonocytes/100 WBC (Bld)6.9 %1.7 - 12.0 %[facility] HospitalNEUTROPHILS ABSOLUTE AUTO5.5NOLiberty HospitalNeutrophils/100 WBC (Bld)63.5 %43.0 - 75.0 %[facility] HospitalPlatelet mean volume (Bld) [Entitic vol]9.9 fL9.5 - 13.5 fLNOMS HealthcareTBH EO #0.4NOMS HealthcareTBH [id number] HealthcareTBH RBC4.8NOMS HealthcareTBH WBC8.7NOMS HealthcareCLINISYNCCBC without diffon 11-27-2024 Platelets (Bld) [#/Vol]209 10*3/uLProMedica Health SystemDrug Screen, Urineon 12-81-0983Ahifgdpzkoi/MethamphetamineNegativeCentral Vermont Medical CenterMedica Health SystemBarbiturates NegativeCentral Vermont Medical CenterMedica Health SystemBenzodiazepinesNegativeProMedica Health System Cocaine MetaboliteNegativeProMedica Health SystemMethadoneNegativeProMedica Health SystemOpiatesNegativeProMedica Health SystemOxycodoneNegativeProMedica Health SystemPhencyclidineNegativeProMedica [facility] SystemThc Marijuana, Urine NegativeUK Healthcareca The [facility] SystemFetal Free Cell DNAon 03-17-7542Jwzgp Free Cell DnaLOW RISKProWhite Hospitalca [facility] SystemHIV 1&2 AB/AG Screen (P24 AG)on 31-85-7757AAC 1&2 AB/AGNon-ReactiveUK Healthcareca [facility] SystemHemoglobin A1con 08-39-0349MfL1v (Bld) [Mass fraction]5.5 %4.0 - 6.0 %[facility] Hospitaledica Health SystemComment on above: AVERAGE GLUCOSE 111Hepatitis B surface antigenon 67-30-5593Hdhardtyc B Surface AntigenNegativeSCCI Hospital Lima SystemLaboratory - Hematology and Cell countson 17-01-1413Vychaviefj (Bld) [Volume fraction]44.2 %NOMS HealthcareHemoglobin (Bld) [Mass/Vol]15.2 g/dLNOMA HealthcareNo Panel Informationon 15-71-3768FFYR HealthcareRubella IGG immune statuson 79-13-7319Trhyjls immune IgG1.4UK Healthcareca [facility] SystemSyphilis Total(Unknown Syphilis Status)on 35-55-0728Hidsqzmn Non-ReactiveCentral Vermont Medical CenterMedica Health SystemType and screenon 06-00-2279Auu/Rh(D)Negative [facility] Health SystemGTT 3 HR PREGon 97-16-1256Mojvxpr [Mass/Vol]107 mg/dL Critically xpzt38-247GuzUpper Valley Medical CenterComment on above:Performed By: #### GTT3P #### [facility] [address] [place] [address] [address] Loyd CoppolaGlucose [Mass/Vol]203 mg/dLMemorial HospitalComment on above:Performed By: #### GTT3P #### [facility] [address] [place] [address] [address] Loyd CoppolaGlucose [Mass/Vol]191 mg/dLMemorial HospitalComment on above:Performed By: #### GTT3P #### [facility] [address] [place] [address] [address] Loyd CoppolaGlucose [Mass/Vol]121 mg/dLMemorial HospitalComment on above:Performed By: #### GTT3P #### [facility] [address] [place] [address] [address] Loyd Hussein MATERNAL FOR SPINA BIFIDAon 82-37-4906WWT MoM0.70Memorial HospitalComment on above:Performed By: #### JAIME UMICRO #### [facility] [address] [place] [address] [address] Loyd Hussein Value18.1 ng/mLNMercy Health Defiance HospitalComment on above: Performed By: #### JAIME UMICRO #### [facility] [address] [place] [address] [address] Loyd Hussein, Serum for Spina BifidaReThe Jewish Hospital Comment on above:Performed By: #### JAIME, UMICRO #### [facility] [address] [place] [address] [address] Loyd ServinProvidence HospitalComment on above:Result Comment: Tiffany Shah, Ph.D., [facility] Director . References: Available Upon Request. . Multiples Of Median Cutoffs For AFP Elevations Steiner 2.5 Black 2.8 IDD 2.0 Twins 4.5 Abbreviation Definitions IDD - Insulin Dep Diabetes OSBR - Open Spina Bifida Risk . For further inquiries contact [employer] at [phone]. . This test was developed and its performance characteristics determined by [facility]. It has not been cleared or approved by the Food and Drug Administration.Performed By: #### JUSTIN SANDOVALRO #### [facility] [address] [place] [address] Dr. Loyd Mac Age Collection Date16.4 weeksMemorial Hospital Comment on above:Performed By: #### JAIME UMICRO #### [facility] [address] [place] [address] Dr. Loyd Macat, Age Based onAs [facility] TriPoint Medical CenterComment on above:Result Comment: Recalculations are not recommended when gestational dating by LMP and ultrasound are within 10 days.Performed By: #### JUSTIN SANDOVALRO #### [facility] [address] [place] [address] Dr. Loyd CoppolaInsulin Dep DiabetesCleveland Clinic Medina HospitalComment on above:Performed By: #### JAIME UMJUAN FRANCISCORO #### [facility] [address] [place] [address] Dr. Loyd CoppolaInterpretationCommentMemorial HospitalComment on above: Result Comment: Interpretation: Screen Negative . This result is screen [...] Customer Services to discuss available options. The [place] [employer] recommends amniocentesis be offered to women age 35 and older.Performed By: #### JUSTIN SANDOVALRO #### [facility] [address] [place] [address] Dr. Loyd CoppolaMaternavaughn Age at EDD30.7 yrMemorial HospitalComment on above:Performed By: #### JAIME UMJUAN FRANCISCORO #### [facility] [address] [place] [address] Dr. Loyd CoppolaMultiple [facility] State Harding HospitalComment on above: Performed By: #### ERUR, UMICRO #### [facility] [address] [place] [address] [address] Loyd PantojaBR Risk 1 [id number] County Medical Center on above: Performed By: #### ERUR, UMICRO #### [facility] [address] [place] [address] Dr. Loyd Fonseca.NormalDunlap Memorial Hospital on above:Performed By: #### ERUR, UMICRO #### [facility] [address] [place] [address] [address] Loyd RamirezCaucasianNFulton County Health Center on above: Performed By: #### ERUR, UMICRO #### [facility] [address] [place] [address] Dr. Loyd Espino Results:NegativeMetroHealth Main Campus Medical Center on above: Performed By: #### ERUHerbert, UMICRO #### [facility] [address] [place] [address] Dr. Loyd CoppolaGLUCOSE - 1HRon 90-71-6901Bybrwgl [Mass/Vol]165 mg/dLCritically iuvf78-678SbeDunlap Memorial Hospital on above:Performed By: #### GLU1HR #### [facility] [address] [place] [address] Dr. Loyd Osullivan ACOG PANEL 2: 30 to 65on 02-19-2023..[facility] on above:Result Comment: Performed at: WBPerformed By: #### ERUR, UMICRO #### [facility] [address] [place] [address] Dr. Loyd Martinez Gdln ACOG Badwxyg62-83LdvazdIyaAshtabula County Medical Center on above:Performed By: #### ERUR, UMICRO #### [facility] [address] [place] [address] Dr. Loyd CoppolaDIAGNOSIS:CommentMetroHealth Main Campus Medical Center on above: Result Comment: NEGATIVE FOR INTRAEPITHELIAL LESION OR MALIGNANCY. Performed at: WBPerformed By: #### ERUR, UMICRO #### [facility] [address] [place] [address] Dr. Loyd Al AptimaNegativeNormalNegativeDunlap Memorial Hospital on above:Result Comment: This nucleic acid amplification test detects fourteen high-risk HPV types (16,18,31,33,35,39,45,51,52,56,58,59,66,68) without differentiation. Performed at: =GPerformed By: #### ERUR, UMICRO #### [facility] [address] [place] [address] Dr. Loyd Al Genotype ReflexCommentNoAshtabula County Medical Center on above:Result Comment: Criteria not met, HPV Genotype not performed. Performed at: WBPerformed By: #### ERUR, UMICRO #### [place] [address] Dr. Loyd CoppolaMethkrissyology:CommentNoAshtabula County Medical Center on above: Result Comment: This liquid based ThinPrep(R) pap test was screened with the use of an image guided system. Performed at: WBPerformed By: #### ERUR, UMICRO #### [place] [address] Dr. Loyd CoppolaNote:CommentMetroHealth Main Campus Medical Center on above:Result Comment: The Pap smear is a screening test designed to aid in the detection of premalignant and malignant conditions of the uterine cervix. It is not a diagnostic procedure and should not be used as the sole means of detecting cervical cancer. Both false-positive and false-negative reports do occur. . Performed at: WBPerformed By: #### ERUR, UMICRO #### [facility] [address] [place] [address] Dr. Loyd CoppolaPerformed by:CommentMetroHealth Main Campus Medical Center on above: Result Comment: Lizett Kirkpatrick, Web Portal Developer (ASCP) Performed at: WBPerformed By: #### ERUR, UMICRO #### [facility] [address] [place] [address] Dr. Loyd Gil adequacy:CommentMemorial HospitalComment on above:Result Comment: Satisfactory for evaluation. No endocervical component is identified. Performed at: WBPerformed By: #### JESUS SANDOVAL #### [facility] [address] [place] [address] Dr. Loyd Hawk PREG CERVICAL LENGTHon 28-39-7051BG PREG CERVICAL LENGTH EXAMINATION: US PREG CERVICAL [...] Electronically authenticated by: YOMAIRA GONZALEZ Date: 2023-02-18 15:51Memorial HospitalCHLAMYDIA/GONOCOCCUS ANTONELLA (SWAB/URINE/PAPon 99-47-0963Ekououfpp trachomatis, NAANegativeNormalNegativeUpper Valley Medical CenterComment on above: Performed By: #### CT/NGNA #### [facility] [address] [place] [address] Dr. Loyd CoppolaNeisseria gonorrhoeae, NAANegativeNormalNegativeUpper Valley Medical CenterComment on above:Performed By: #### CT/NGNA #### [facility] [address] [place] [address] Dr. Loyd CoppolaVAGINITIS/VAGINOSIS DNA PROBEon 49-02-0340Ibvuqdk speciesNegative NormalNegativeUpper Valley Medical CenterComment on above:Performed By: #### CBC #### [facility] [address] [place] [address] Dr. Loyd Lemuserella vaginalisNegativeNormalNegativeUpper Valley Medical Center Comment on above:Performed By: #### CBC #### [facility] [address] [place] [address] Dr. Loyd CoppolaTrichomonas vaginalisNegativeNormalNegativeUpper Valley Medical Center Comment on above:Performed By: #### CBC #### [facility] [address] [place] [address] Dr. Loyd Herbert B SURFACE ANTIGEN SCREENon 74-30-5056TLtRu ScreenNegative NormalNegativeThe [facility] System East CampusComment on above:Performed By: #### HBSANS #### [facility] [address] [address] [address] Loyd CardonaTIS C VIRUS AB W/ REFLEX QUANTon 14-91-5283XZK AB Non-ReactiveNormalNon ReactiveThe [facility] East CampusComment on above:Performed By: #### CBC #### [facility] [address] [place] [address] Dr. Loyd CoppolaInterpretation:CommentNormalThCity HospitalComment on above:Result Comment: Not infected with HCV unless early or acute infection is suspected (which may be delayed in an immunocompromised individual), or other evidence exists to indicate HCV infection.Performed By: #### CBC #### [facility] [address] [place] [address] Dr. Loyd Abarca 1 AND 2 WITH REFLEXon [id number] Screen 4th Generation wRfxNon-ReactiveNormalNon ReactiveUpper Valley Medical CenterComment on above:Result Comment: HIV Negative HIV-1/HIV-2 antibodies and HIV-1 p24 antigen were NOT detected. There is no laboratory evidence of HIV infection.Performed By: #### CBC #### [facility] [address] [place] [address] Dr. Loyd CoppolaRPR QUANTon [id number] Plasma Reagin, QuantNon-Reactive NormalNonRea<1:1The [facility] on above:Result Comment: Please Note: This test does not meet current guidelines for screening and diagnosis of syphilis. This test is intended for following treatment response in patients being treated for syphilis infection. To screen for syphilis infection, a reflex cascade that includes both RPR and a treponema-specific assay should be utilized, such as Treponema pallidum (Syphilis) Screening [place] (436853) or Rapid Plasma Reagin (RPR) Test With Reflex to Quantitative RPR and Confirmatory Treponema pallidum Antibodies (801858).Performed By: #### JESUS SANDOVAL #### [facility] [address] [place] [address] Dr. Loyd Pinto AB IGGon [id number] Antibodies, IgG1.08 index NormalImmune >0.99[facility] CenterCommclaren [facility] on above:Result Comment: Non- immune <0.90 Equivocal 0.90 - 0.99 Immune >0.99Performed By: #### CBC #### [facility] [address] [place] [address] Dr. Loyd CoppolaBOX TEST SENT OUTon [id number] TO REF LAB01/31/23[facility] on above:Performed By: #### JESUS SANDOVAL #### [facility] [address] [place] [address] Dr. Loyd Portillo AUTO DIFFon [id number] #0.0 103/ulNormal0.0-0.1[facility] CenterComment on above:Performed By: #### CBC #### [facility] [address] [place] [address] Dr. Loyd Perezsophils/100 WBC (Bld)0.2 %Normal0.2-2.0[facility] Comment on above:Performed By: #### CBC #### [facility] [address] [place] [address] Dr. Loyd Carvajal #0.1 103/ulNormal0.0-0.7ThMetroHealth [facility] on above: Performed By: #### CBC #### [facility] [address] [place] [address] Dr. Loyd Escuderoosinophils/100 WBC (Bld)1.5 %Normal0.9-7.0[facility] Comment on above:Performed By: #### CBC #### [facility] [address] [place] [address] Dr. Loyd Escuderorythrocyte distribution width (RBC) [Ratio]12.3 %Jkeqtj41.0-15.0 The [facility] CampusComment on above:Performed By: #### CBC #### [facility] [address] [place] [address] Dr. Loyd CoppolaHematocrit (Bld) [Volume fraction]39.3 %Raurcn42.0-48.0The [facility] CampusComment on above:Performed By: #### CBC #### [facility] [address] [place] [address] Dr. Loyd CoppolaHemoglobin (Bld) [Mass/Vol]14.3 g/jELeluvu96.0-16.0The [facility] CampusCommclaren [facility] on above:Performed By: #### CBC #### [facility] [address] [place] [address] Dr. Loyd Pickard #0.03 10e3/ulNormal0.00-0.03The [facility] CampusComment on above:Performed By: #### CBC #### [facility] [address] [place] [address] Dr. Loyd Pickard %0.3 %Normal0.0-0.5The [facility] CampusCommclaren [facility] on above: Performed By: #### CBC #### [facility] [address] [place] [address] Dr. Loyd KoehlerH #2.3 103/ulNormal1.2-3.8The [facility] CampusComment on above:Performed By: #### CBC #### [facility] [address] [place] [address] Dr. Loyd Martelmphocytes/100 WBC (Bld)24.8 %Hxgaou00.5-60.0The [facility] CampusComment on above:Performed By: #### CBC #### [facility] [address] [place] [address] Dr. Loyd PenningtonUAL DIFF REQNONormalThe [facility] CampusComment on above: Performed By: #### CBC #### [facility] [address] [place] [address] Dr. Loyd Ayala (RBC) [Entitic mass]32.6 beBmgikg24.7-34.0The [facility] CampusComment on above:Performed By: #### CBC #### [facility] [address] [place] [address] Dr. Loyd Ayala (RBC) [Mass/Vol]36.4 g/dLCritically high29.9-35.2The [facility] CampusComment on above:Performed By: #### CBC #### [facility] [address] [place] [address] Dr. Loyd Ayala (RBC) [Entitic vol]89.7 wHUpulof03.0-99.0The [facility] CampusComment on above:Performed By: #### CBC #### [facility] [address] [place] [address] Dr. Loyd Suarez #0.5 103/ulNormal0.3-0.8The [facility] CampusComment on above:Performed By: #### CBC #### [facility] [address] [place] [address] Dr. Loyd Juarezocytes/100 WBC (Bld)5.2 %Normal1.7-12.0The [facility] Comment on above:Performed By: #### CBC #### [facility] [address] [place] [address] Dr. Loyd Murrieta #6.4 103/ulNormal1.4-6.5The [facility] CampusComment on above:Performed By: #### CBC #### [facility] [address] [place] [address] Dr. Loyd Garciautrophils/100 WBC (Bld)68.0 %Currqb57.0-75.0The [facility] CampusComment on above:Performed By: #### CBC #### [facility] [address] [place] [address] Dr. Loyd Murillolet mean volume (Bld) [Entitic vol]10.5 fLNormal9.5-13.5The [facility] CampusComment on above:Performed By: #### CBC #### [facility] [address] [place] [address] Dr. Loyd CoppolaPLT171 103/prImvpxl540-637Juc [facility] CampusCommclaren [facility] region on above: Performed By: #### CBC #### [facility] [address] [place] [address] Dr. Loyd CoppolaRBC4.38 106/ulNormal4.20-5.40The [facility] CampusComment on above:Performed By: #### CBC #### [facility] [address] [place] [address] Dr. Loyd CoppolaWBC9.4 103/ulNormal4.0-11.0The [facility] on above: Performed By: #### CBC #### [facility] [address] [place] [address] Dr. Loyd Sanchez URINEon [id number] URINECulture Observations: LIGHT GROWTH OF MIXED GENITAL CASSIDY. NO POTENTIAL PATHOGENS SEEN.NormalThe [facility] CampusComment on above:Performed By: #### CBC #### [facility] [address] [place] [address] Dr. Loyd Sanchez URINEIsolate 1 Escherichia coli 25,000 cfu/mL of ORGANISM 1 Escherichia coli ANTIBIOTIC M.I.C RX STATUS Ampicillin 4 S F Ampicillin/Sulbactam <=2 S F Piperacillin/Tazobactam <=4 S F Cefazolin <=4 S F Ceftazidime <=1 S F Ceftriaxone <=1 S F Ertapenem <=0.5 S F Imipenem <=0.25 S F Amikacin <=2 S F Gentamicin <=1 S F Tobramycin <=1 S F Ciprofloxacin <=0.25 S F Levofloxacin <=0.12 S F Nitrofurantoin <=16 S F Trimethoprim/Sulfamethoxazole <=20 S FNormalThe [facility] on above:Performed By: #### CBC #### [facility] [address] [place] [address] Dr. Loyd CoppolaGLYCOHEMOGLOBIN A1Con [id number] RECOMMENDATIONSEE BELOWNormal The [facility] CampusComment on above:Result Comment: ADA RECOMMENDED LIMIT 4.0 - 6.0 ADA THERAPEUTIC TARGET < 7.0 ACTION SUGGESTED > 7.0Performed By: #### A1C #### [facility] [address] [place] [address] Dr. Loyd CoppolaGlucose [Mass/Vol]100 mg/dLNoChillicothe VA Medical CenterComment on above:Performed By: #### A1C #### [facility] [address] [place] [address] Dr. Loyd CoppolaHbA1c (Bld) [Mass fraction]5.1 %Normal4.5-6.2The [facility] CampusComment on above:Performed By: #### A1C #### [facility] [address] [place] [address] Dr. Loyd EstradaHosy 22-79-0094MGH5.495 uIU/mLNormal0.358-3.740The [facility] CampusComment on above:Performed By: #### ERUR UMICRO #### [facility] [address] [place] [address] Dr. Loyd CoppolaTYPE AND SCREENon [id number] AND SCREENNegativeNormUK HealthcareComment on above:Performed By: #### CBC #### [facility] [address] [place] [address] Dr. Loyd ChanC AUTO DIFFon [id number] #0.0 103/ulNormal0.0-0.1The [facility] CampusComment on above:Performed By: #### CBC #### [facility] [address] [place] [address] Dr. Loyd CoppolaBasophils/100 WBC (Bld)0.2 %Normal0.2-2.0The [facility] Comment on above:Performed By: #### CBC #### [facility] [address] [place] [address] Dr. Harp ChangEO #0.1 103/ulNormal0.0-0.7The [facility] CampusComment on above: Performed By: #### CBC #### [facility] [address] [place] [address] Dr. Loyd Escuderoosinophils/100 WBC (Bld)0.8 %Critically low0.9-7.0The [facility]ment on above:Performed By: #### CBC #### [facility] [address] [place] [address] Dr. Loyd Escuderorythrocyte distribution width (RBC) [Ratio]12.3 %Rlrqdx86.0-15.0 The [facility] CampusComment on above:Performed By: #### CBC #### [facility] [address] [place] [address] Dr. Loyd CoppolaHematocrit (Bld) [Volume fraction]45.0 %Bvfohy47.0-48.0The [facility] CampusComment on above:Performed By: #### CBC #### [facility] [address] [place] [address] Dr. Loyd CoppolaHemoglobin (Bld) [Mass/Vol]16.3 g/dLCritically high12.0-16.0The [facility] CampusComment on above:Performed By: #### CBC #### [facility] [address] [place] [address] Dr. Loyd Pickard #0.03 10e3/ulNormal0.00-0.03The [facility] CampusCommclaren bay region on above:Performed By: #### CBC #### [facility] [address] [place] [address] Dr. Loyd Pickard %0.4 %Normal0.0-0.5The [facility] CampusComment on above: Performed By: #### CBC #### [facility] [address] [place] [address] Dr. Loyd KoehlerH #1.4 103/ulNormal1.2-3.8The [facility] CampusCommclaren [facility] region on above:Performed By: #### CBC #### [facility] [address] [place] [address] Dr. Loyd Martelmphocytes/100 WBC (Bld)16.8 %Critically low20.5-60.0The [facility] CampusComment on above:Performed By: #### CBC #### [facility] [address] [place] [address] Dr. Loyd Vieira DIFF REQNONormalThe [facility] CampusComment on above: Performed By: #### CBC #### [facility] [address] [place] [address] Dr. Loyd Ayala (RBC) [Entitic mass]32.1 ejWvaamo80.7-34.0The [facility] CampusComment on above:Performed By: #### CBC #### [facility] [address] [place] [address] Dr. Loyd Ayala (RBC) [Mass/Vol]36.2 g/dLCritically high29.9-35.2The [facility] CampusComment on above:Performed By: #### CBC #### [facility] [address] [place] [address] Dr. Loyd Ayala (RBC) [Entitic vol]88.8 zPRwmykt03.0-99.0The [facility] CampusComment on above:Performed By: #### CBC #### [facility] [address] [place] [address] Dr. Loyd Suarez #0.9 103/ulCritically high0.3-0.8ThCity [facility] Comment on above:Performed By: #### CBC #### [facility] [address] [place] [address] Dr. Loyd Juarezocytes/100 WBC (Bld)10.5 %Normal1.7-12.0[facility] Comment on above:Performed By: #### CBC #### [facility] [address] [place] [address] Dr. Loyd Murrieta #6.0 103/ulNormal1.4-6.5The [facility] CampusComment on above:Performed By: #### CBC #### [facility] [address] [place] [address] Dr. Loyd Garciautrophils/100 WBC (Bld)71.3 %Bqldcf93.0-75.0The [facility]ment on above:Performed By: #### CBC #### [facility] [address] [place] [address] Dr. Loyd Andrew mean volume (Bld) [Entitic vol]10.7 fLNormal9.5-13.5The [facility] CampusComment on above:Performed By: #### CBC #### [facility] [address] [place] [address] Dr. Loyd CoppolaPLT174 103/ygVcqfzr680-198Xrk [facility] on above: Performed By: #### CBC #### [facility] [address] [place] [address] Dr. Loyd FatimaC5.07 106/ulNormal4.20-5.40The [facility] on above:Performed By: #### CBC #### [facility] [address] [place] [address] Dr. Loyd KumarBC8.4 103/ulNormal4.0-11.0The [facility] on above: Performed By: #### CBC #### [facility] [address] [place] [address] Dr. Loyd Torres URINE PROFILEon 95-40-2045Ktrubuxxc Ql (U)SMALLAbnormal NEGATIVEThe [facility] CampusCommclaren [facility] on above:Performed By: #### JAIME UMICRO #### [facility] [address] [place] [address] Dr. Loyd Maria (U)CLEARNormalCLEARThe [facility] CampusCommclaren [facility] on above: Performed By: #### JAIME UMICRO #### [facility] [address] [place] [address] Dr. Loyd Groves (U)YELLOWNormalYELLOWDunlap Memorial Hospital on above: Performed By: #### JAIME UMICRO #### [facility] [address] [place] [address] Dr. Loyd DumontDA micrscopic examination will be performed if indicated. NormalThe [facility]illington HospitalComment on above:Performed By: #### JAIME, UMICRO #### [facility] [address] [address] [address] Loyd CoppolaGlucose Ql (U)NegativeNormalNEGATIVEThe [facility] CampusComment on above:Performed By: #### ZAHRAR, UMICRO #### [facility] [address] [address] [address] Loyd CoppolaHemoglobin Ql (U)TRACE-INTACTAbnormalNEGATIVEUpper Valley Medical CenterComment on above:Performed By: #### JAIME UMICRO #### [facility] [address] [address] [address] Loyd Cliftonones Ql (U)80 mg/dlAbnormalNEGATIVEUpper Valley Medical Center Comment on above:Performed By: #### JAIME UMICRO #### [facility] [address] [address] [address] Loyd CoppolaLEUKOCYTESNegativeNormalNEGATIVEUpper Valley Medical CenterComment on above:Performed By: #### JAIME UMICRO #### [facility] [address] [address] [address] Loyd Hatrite Ql (U)NegativeNormalNEGATIVEUpper Valley Medical CenterComment on above:Performed By: #### JAIME, UMICRO #### [facility] [address] [address] [address] Loyd CoppolapH (U)6.5 [pH]Normal5-9The [facility] CampusComment on above: Performed By: #### ERUR, UMICRO #### [facility] [address] [address] [address] Loyd CoppolaProtein (U) [Mass/Vol]100 mg/dLAbnormalNEGATIVE/ TRACEThe [facility] CampusComment on above:Performed By: #### ERUR, UMICRO #### [facility] [address] [address] [address] Loyd CoppolaSPEC GRAVITY1.803Ewopenkw3.005-<=1.025[facility] Comment on above:Performed By: #### JESUS SANDOVAL #### [facility] [address] [address] [address] Loyd GARCIA INDINDICATEDNormalThe [facility] CampusComment on above: Performed By: #### JESUS SANDOVAL #### [facility] [address] [place] [address] Dr. Loyd Soni Qn (U)0.2 {Taylor'U}/dLNormal0.2 - 1.0The [facility] CampusComment on above:Performed By: #### JESUS SANDOVAL #### [facility] [address] [place] [address] Dr. Loyd Almanza 14(COMP METB)on [id number] [Mass/Vol]3.5 g/dLNormal 3.4-5.0The [facility] CampusComment on above:Performed By: #### CBC #### [facility] [address] [place] [address] Dr. Loyd CoppolaAlbumin/Globulin [Mass ratio]0.9 {ratio}NormalThe [facility] CampusComment on above:Performed By: #### CBC #### [facility] [address] [place] [address] Dr. Loyd Colvin [Catalytic activity/Vol]61 U/WOulwov94-217Uhq [facility] on above:Performed By: #### CBC #### [facility] [address] [place] [address] Dr. Loyd Brown [Catalytic activity/Vol]29 U/CNtjqtr40-13Elt [facility] CampusComment on above:Performed By: #### CBC #### [facility] [address] [place] [address] Dr. Loyd Peters gap [Moles/Vol]12.0 mmol/LNormalThe [facility] Comment on above:Performed By: #### CBC #### [facility] [address] [place] [address] Dr. Loyd Eid [Catalytic activity/Vol]24 U/FGcmzpz14-14Cdc [facility] CampusComment on above:Performed By: #### CBC #### [facility] [address] [address] [address] Loyd CoppolaBilirubin [Mass/Vol]0.4 mg/dLNormal0.2-1.0[facility] Comment on above:Performed By: #### CBC #### [facility] [address] [address] [address] Loyd CoppolaCalcium [Mass/Vol]8.6 mg/dLNormal8.5-10.1The [facility] Comment on above:Performed By: #### CBC #### [facility] [address] [place] [address] Dr. Loyd CoppolaChloride [Moles/Vol]99 mmol/UCnzifx16-230Tqz [facility] Comment on above:Performed By: #### CBC #### [facility] [address] [place] [address] Dr. Loyd CoppolaCO2 [Moles/Vol]24.9 mmol/NRykdwz11.0-32.0The [facility] Comment on above:Performed By: #### CBC #### [facility] [address] [place] [address] Dr. Loyd CoppolaCreatinine [Mass/Vol]0.55 mg/dLNormal0.55-1.02The [facility] CampusComment on above:Performed By: #### CBC #### [facility] [address] [place] [address] Dr. Loyd EscuderoGFR-AF CHILEAN>60Normal>=60The [facility] CampusComment on above:Performed By: #### CBC #### [facility] [address] [address] [address] Loyd EscuderoGFR-NON AF CHILEAN>60Normal>=60The [facility] CampusComment on above:Performed By: #### CBC #### [facility] [address] [place] [address] Dr. Loyd CoppolaGlobulin (S) [Mass/Vol]3.8 g/dLNormalThe [facility]ton HospitalComment on above:Performed By: #### CBC #### [facility] [address] [address] [address] Loyd CoppolaGlucose [Mass/Vol]106 mg/eUJwotuw59-941Wtw [facility] Comment on above:Performed By: #### CBC #### [facility] [address] [address] [address] Loyd CoppolaPotassium [Moles/Vol]2.9 mmol/LCritically low3.5-5.1The [facility] CampusComment on above:Performed By: #### CBC #### [facility] [address] [address] [address] Loyd CoppolaProtein [Mass/Vol]7.3 g/dLNormal6.4-8.2The [facility] Comment on above:Performed By: #### CBC #### [facility] [address] [address] [address] Loyd CoppolaSodium [Moles/Vol]135 mmol/LCritically bnc530-706Gcy [facility] CampusComment on above:Performed By: #### CBC #### [facility] [address] [address] [address] Loyd CoppolaUrea nitrogen [Mass/Vol]12.0 mg/dLNormal7.0-18.0The [facility] CampusComment on above:Performed By: #### CBC #### [facility] [address] [address] [address] Loyd CoppolaUrea nitrogen/Creatinine [Mass ratio]21.8 mg/mgNoChillicothe VA Medical CenterComment on above:Performed By: #### CBC #### [facility] [address] [address] [address] Loyd Justice MICROSCOPIC ONLYon [id number]AMDR SEENThe [facility] CampusCommclaren bay region on above:Performed By: #### ERUR UMICRO #### [facility] [address] [address] [address] Loyd CoppolaBactmontrell identified Cx Nom (U)INDICATEDNormalThe [facility] CampusComment on above:Performed By: #### ERUR, UMICRO #### [facility] [address] [place] [address] Dr. Loyd Angel SEENNormalNONE SEENDunlap Memorial Hospital on above:Performed By: #### ERUR, UMICRO #### [facility] [address] [place] [address] Dr. Loyd CoppolaCrystals LM Nom (Urine sed)NONE SEENNormalNONE SEENThe [facility] CampusCommclaren [facility] region on above:Performed By: #### ERUR, UMICRO #### [facility] [address] [place] [address] Dr. Harp ChangEpithelial cells LM Ql (Urine sed)MANYAbnormalNONE SEEN /RAREThe [facility] on above:Performed By: #### ZAHRAR, UMICRO #### [facility] [address] [place] [address] Dr. Loyd QuijanoMALLAbnormalNONE SEENDunlap Memorial Hospital on above:Performed By: #### ZAHRAR, UMICRO #### [facility] [address] [place] [address] Dr. Loyd FatimaGqxvwZAT9-0Jrawwq7-9PcwDunlap Memorial Hospital on above:Performed By: #### ERUR, UMICRO #### [facility] [address] [place] [address] Dr. Loyd CoppolaWBC2-5AbnormalNONE SEENDunlap Memorial Hospital on above: Performed By: #### ERUR, UMICRO #### [facility] [address] [place] [address] Dr. Loyd Hawk PREG TVon [id number] PREG TVEXAMINATION: US PREG TV HISTORY: Missed period COMPARISON: [...] Electronically authenticated by: YOMAIRA GONZALEZ Date: 2023-01-23 15:42[facility] HealthOG PANEL 2: 23 to 31on 09-19-2022..NormalThe [facility] Northment on above:Performed By: #### [id number] #### [facility] [address] [place] [address] Dr. Loyd CoppolaAge Gdln ACOG Xxslwgn39-91FdvukkYupChillicothe VA Medical CenterComment on above:Performed By: #### [id number] #### [facility] [address] [place] [address] Dr. Loyd CoppolaDIAGNOSIS:CommentMetroHealth Main Campus Medical Center on above: Result Comment: NEGATIVE FOR INTRAEPITHELIAL LESION OR MALIGNANCY.Performed By: #### [id number] #### [facility] [address] [place] [address] Dr. Loyd CoppolaMethodology:CommentMetroHealth Main Campus Medical Center on above: Result Comment: This liquid based ThinPrep(R) pap test was screened with the use of an image guided system.Performed By: #### [id number] #### [facility] [address] [place] [address] Dr. Loyd CoppolaNote:CommentMetroHealth Main Campus Medical Center on above:Result Comment: The Pap smear is a screening test designed to aid in the detection of premalignant and malignant conditions of the uterine cervix. It is not a diagnostic procedure and should not be used as the sole means of detecting cervical cancer. Both false-positive and false-negative reports do occur. .Performed By: #### [id number] #### [facility] [address] [place] [address] Dr. Loyd CoppolaPerformed by:CommentMetroHealth Main Campus Medical Center on above: Result Comment: Milagro Velasco, Web Portal Developer (ASCP)Performed By: #### [id number] #### [facility] [address] [place] [address] Dr. Loyd CoppolaReflex Criteria:CommentMetroHealth Main Campus Medical Center on above:Result Comment: The HPV DNA reflex criteria were not met with this specimen result therefore, no HPV testing was performed. .Performed By: #### [id number] #### [facility] [address] [place] [address] Dr. Loyd CoppolaSpecimen adequacy:CommentMetroHealth Main Campus Medical Center on above:Result Comment: Satisfactory for evaluation. Endocervical and/or squamous metaplastic cells (endocervical component) are present.Performed By: #### [id number] #### [facility] [address] [place] [address] Dr. Loyd Coppola Vital Signs Date TimeVital SignValuePerforming ZykafftxaFqxlsubk87-83-2167 13:43-0400Body yrqbzz020.2 cmBlank Albrecht ASBESTOS HAZARD ABATEMENT WORKER Work Phone: [phone] [place], [place] [address]Ryaltgkgyx26-36-4266 13:43-0400Body mass index (BMI) [Ratio]44.48 kg/x4RgflnbpnBlank Albrecht [employer]BE[employer]OS [employer] ABATEMENT WORKER Work Phone: [phone] [place], [place] [address]Opmunoqiby95-53-7118 13:43-0400Body wnyjyo862.82 kgBlank Albrecht [employer]BE[employer]OS HA[employer] ABATEMENT WORKER Work Phone: [phone] [place], [place] [address]Yevsqxuxfr35-26-4861 13:43-0400Diastolic blood mksxbbxa93 mm[Hg]Blank Albrecht [employer]BE[employer]OS HA[employer] ABATEMENT WORKER Work Phone: [phone] [place], [place] [address]Vpuowpynlz29-16-3058 13:43-0400Systolic blood zbwqbeva466 mm[Hg]Blank Albrecht [employer]BE[employer]OS HA[employer]ARD ABATEMENT WORKER Work Phone: [phone]08-21-2025 11:29-0400Body mass index (BMI) [Ratio]44.76 kg/m2Kristan RUBIO Work Phone: [facility] HospitalGyjzennyqa82-12-0331 11:29-0400Body hbtiak625.64 kgKristan RUBIO Work Phone: [phone] [place], [place] [address]Cdwivstxco23-01-7770 11:29-0400Diastolic blood yicpeapr75 mm[Hg]Kristan RUBIO Work Phone: [facility] HospitalBttsyhwwrm61-09-0659 11:29-0400Systolic blood ezmtyejz432 mm[Hg]Kristan RUBIO Work Phone: [facility] HospitalMcruelkgos38-13-0306 09:42-0400Body mass index (BMI) [Ratio]44.34 kg/y9JzpczthuBlank Albrecht [employer]BE[employer]OS HA[employer] ABATEMENT WORKER Work Phone: [phone] [place], [place] [address]Izujclkduw47-96-9049 09:42-0400Body roauze720.42 kgKrdarnell Albrecht [employer]BE[employer]OS HA[employer] ABATEMENT WORKER Work Phone: [phone] [place], [place] [address]Ydwiqwzrnr53-68-7591 09:42-0400Diastolic blood ptoabfvo56 mm[Hg]Blankdarnell Albrecht [employer]BE[employer]OS [employer] ABATEMENT WORKER Work Phone: [phone] [place], [place] [address]Kqzymusdti95-15-7640 09:42-0400Systolic blood napteskq003 mm[Hg]Blank Trena ASBESTOS HAZARD ABATEMENT WORKER Work Phone: [phone] [place], [place] [address]Ughzmrshmk13-47-5363 09:36-0400Body mass index (BMI) [Ratio]43.67 kg/p6Ghrjc Sebastian DO Work Phone: [phone] [place], [place] [address]Zbscdpxjor75-36-1029 09:36-0400Body qycdyl666.46 kgCorey Sebastian DO Work Phone: [facility] HospitalIkpsgkevoq64-28-8832 09:36-0400Diastolic blood mnzqubpn57 mm[Hg]Nolan Sebastian DO Work Phone: [phone] [place], [place] [address]Eqevecxsoe59-74-2040 09:36-0400Systolic blood ctdbkijy002 mm[Hg]Nolan Sebastian DO Work Phone: [phone] [place], [place] [address]Etsvabjvcb26-93-2229 10:36-0400Diastolic blood zxdbyeqg71 mm[Hg]Nolan Sebastian DO Work Phone: [facility] HospitalKqrwhsgbnn32-80-0543 10:36-0400Systolic blood ubpighpf051 mm[Hg]Nolan Sebastian DO Work Phone: [facility] HospitalSjshqnfnbo74-48-4843 10:29-0400Body mass index (BMI) [Ratio]49.34 kg/j6Rlymb Sebastian DO Work Phone: [facility] HospitalIxizwampdn77-83-7662 10:29-0400Body piwnsb622.88 kgCorey Sebastian DO Work Phone: [facility] HospitalSxmjzfxpkp60-00-4152 11:04-0400Body mass index (BMI) [Ratio]49.49 kg/m2Amy Polina PA Work Phone: [phone] [place], [place] [address]Hwyjhvctyi19-20-5094 11:04-0400Body zeikxd809.34 kgAmy Polina PA Work Phone: [phone] [place], [place] [address]Ncxzltivrq79-94-3453 11:04-0400Diastolic blood kxkbknie34 mm[Hg]Kristan Campbell PA Work Phone: [phone] [place], [place] [address]Eumbbzgukm64-22-5805 11:04-0400Systolic blood iwslhime430 mm[Hg]Kristan Campbell PA Work Phone: [phone] [place], [place] [address]Liefslsfzv66-59-5686 08:59-0400Body mass index (BMI) [Ratio]48.12 kg/m2Amy Polina PA Work Phone: [phone] [place], [place] [address]Nuuiupdsik15-88-9234 08:59-0400Body dkzguz710.37 kgAmy Campbell PA Work Phone: [phone] [place], [place] [address]Doykcuhoxd09-41-6785 08:59-0400Diastolic blood ahoychpc07 mm[Hg]Kristan Polina PA Work Phone: 1(522)510-[address] [place] [address]-15-2025 08:59-0400Systolic blood mm[Hg]Kristan Polina PA Work Phone: [phone] [place], [place] [address]Gldgghoekq70-36-8488 11:58-0400Body mass index (BMI) [Ratio]47.58 kg/y4Kmvlf Sebastian DO Work Phone: [phone]-[facility] HospitalNjrcjmkhux02-14-9354 11:58-0400Body vggidd981.8 kgCorey Sebastian DO Work Phone: [phone] [place], [place] [address]Uufzhciykz93-03-6890 11:58-0400Diastolic blood yfdonbgn81 mm[Hg]Nolan Sebastian DO Work Phone: [phone] [place], [place] [address]Yprrtkveta58-26-7387 11:58-0400Systolic blood osdmrozj910 mm[Hg]Nolan Sebastian DO Work Phone: [phone] [place], [place] [address]Ldmgacpyfv54-90-6737 10:56-0400Body mass index (BMI) [Ratio]47.16 kg/m2Kristan Fish JOANNE Work Phone: [phone] [place], [place] [address]Pkihosvqys33-61-3903 10:56-0400Body auasim395.59 kgAmy Polina RUBIO Work Phone: [phone] [place], [place] [address]Tdehaezpnh25-78-5746 10:56-0400Diastolic blood yrldtokv35 mm[Hg]Kristan Polina RUBIO Work Phone: [phone] [place], [place] [address]Nsyxnqwnwl53-55-0782 10:56-0400Systolic blood eidulvec839 mm[Hg]Kristan RUBIO Work Phone: [phone] [place], [place] [address]Kudjetcpqu12-20-6856 13:11-0400Body mass index (BMI) [Ratio]46.27 kg/n1Tzvdg Sebastian DO Work Phone: 1([phone] [place], [place] [address]Mgozbsxvrz67-85-1617 13:11-0400Body ckapgu049.99 kgCorey Sebastian DO Work Phone: [phone])169-[address] [place], [place] [address]Yxvymlzwsf92-50-7911 13:11-0400Diastolic blood qpzxuzws18 mm[Hg]Nolan Sebastian DO Work Phone: 1(982)392-[address] [place], [place] [address]Gbwavqziya17-75-4301 13:11-0400Systolic blood fdpiwclc991 mm[Hg]Nolan Sebastian DO Work Phone: 1([phone] [place], [place] [address]Kmkewswlik56-51-3462 14:05-0400Body mass index (BMI) [Ratio]46.52 kg/f4Spuol Sebastian DO Work Phone: [phone])101-[address] [place], [place] [address]Hzswdpuspf30-25-9733 14:05-0400Body gnoasd647.72 kgCorey Sebastian DO Work Phone: [phone])727-[address] [place], [place] [address]Gygfpzjbbx43-09-8155 14:05-0400Diastolic blood bfbykmng93 mm[Hg]Nolan Sebastian DO Work Phone: 1(271)[address] [place], [place] 5417505-27-2025 14:05-0400Systolic blood gdcwivjw803 mm[Hg]Nolan Sebastian DO Work Phone: 1(680)[facility] [place], [place] [address]Owixuqygrs05-99-7363 14:00-0400Body mass index (BMI) [Ratio]46.05 kg/q5Hvwfg Sebastian DO Work Phone: 1(410)[address] [place], [place] 5417505-05-2025 14:00-0400Body bqabic554.36 kgCorey Sebastian DO Work Phone: 1(819)[address] [place], [place] 5417505-05-2025 14:00-0400Diastolic blood mvvbtquw28 mm[Hg]Nolan Sebastian DO Work Phone: 1(826)[address] [place], [place] 5417505-05-2025 14:00-0400Systolic blood lzwprski887 mm[Hg]Nolan Sebastian DO Work Phone: 1(869)[address] [place], [place] 5417504-29-2025 13:08-0400Body mass index (BMI) [Ratio]45.7 kg/p9Ykqgsax Lavoy PA-C Work Phone: 1(066)[address] [place], [place] 28[address]04-29-2025 13:08-0400Body yqnusp716.36 kgColleen Lavoy PA-C Work Phone: 1(062)[address] [place], [place] 2812904-29-2025 13:08-0400Diastolic blood juaozgmo55 mm[Hg]Kenya Lavoy PA-C Work Phone: 1(581)[address] [place], [place] 28[address]04-29-2025 13:08-0400Heart rate 95 /minColleen Lavoy PA-C Work Phone: 1(800)[address] [place], [place] 28[address]04-29-2025 13:08-0400Systolic blood mm[Hg]Kenya Lavoy PA-C Work Phone: 1(677)[address] [place], [place] 28[address]04-14-2025 13:59-0400Body mass index (BMI) [Ratio]45.42 kg/t5Jjxlo Sebastian DO Work Phone: [facility] HospitalSelgmgwbba19-83-3836 13:59-0400Body xtzybw122.54 kgCorey Sebastian DO Work Phone: 1(689)891-[address] [place], [place] [address]Vdgzsgoegj04-00-4346 13:59-0400Diastolic blood dspybbxc05 mm[Hg]Nolan Sebastian DO Work Phone: 1(977)793-[address] [place], [place] [address]Ukjrripmqo81-60-6680 13:59-0400Systolic blood kotcwpbl789 mm[Hg]Nolan Sebastian DO Work Phone: [phone]04-09-2025 13:18-0400Body mass index (BMI) [Ratio]44.79 kg/i8SojxhzViolet Lopez RN Work Phone: 1(630)446-[address] [place], [place] 0428404-09-2025 13:18-0400Body nwxinh613.73 kgViolet Lopez RN Work Phone: 1(950)501-[address] [place], [place] 0428402-18-2025 13:59-0500Body mass index (BMI) [Ratio]44.14 kg/n7Qsshn Sebastian DO Work Phone: 1(766)911-[address] [place], [place] [address]Aitsvdyifz70-04-2487 13:59-0500Body houabq610.82 kgCorey Sebastian DO Work Phone: 1(785)421-[address] [place], [place] [address]Glzpkrnsnf51-13-2396 13:59-0500Diastolic blood psqjfndo48 mm[Hg]Nolan Sebastian DO Work Phone: 1(418)538-[address] [place], [place] [address]Ntlzkpscfv11-95-3640 13:59-0500Systolic blood jgokdvyn993 mm[Hg]Nolan Sebastian DO Work Phone: [phone])[address]01-17-2025 09:44-0500Body mass index (BMI) [Ratio]43.95 kg/m2[facility]01-17-2025 09:44-0500Body .28 kgNoca NurseSt. Luke's HospitalVecibtwyeh44-37-3448 03:40-0400Body yypcra806.9256 kgDR JULIANNE LAMBERT .[facility] CampusComment on above:Performed By: #### ERUR, JESUS #### [facility] [address] [address] [address] Lody Coppola Encounters Encounter DateEncounter TypeCare ProviderFacilityStart: 07-14-2025 End: 82-13-6802Udhqwhvezz care visitBlank Albrecht NP Work Phone: [facility] OBGYNComment on above:6 weeks follow-up ([facility]); Spontaneous vaginal delivery ([facility]Start: 07-14-2025 End: 06-58-0681cubzpfvbzvRHXIONKH EBERLYNot AvailableStart: 07-07-2025 End: 79-20-4040mpirmewvnkJoa Ramey PA Work Phone: [facility] [place] OBGYNComment on above:Benign essential hypertension in obstetric context, antepartum ([facility]) (Primary Dx)Start: 06-30-2025 End: 51-99-7907dmlwmvokxaSWL RAMEYNot AvailableStart: 06-30-2025 End: 14-41-5743Uvdlmfw encounter statusKristan RUBIO Work Phone: [facility] Work Phone: Start: 06-30-2025 End: 08-36-6596Duagwzlvry care visitKristan RUBIO Work Phone: [facility] OBGYNComment on above:BP checkStart: 06-27-2025 End: 59-64-3354bfdgcqqvpfKVNZIS MOUKARBSt. Francis Hospital Start: 06-23-2025 End: 61-28-7261rikumplclhUOBEPJMI EBERLYNot AvailableStart: 06-23-2025 End: 67-31-6906Dhyymq outpatient visit 10 minutesBlank Albrecht ASBESTOS HAZARD ABATEMENT WORKER Work Phone: [facility] [place] OBGYNComment on above:Blood pressure checkStart: 06-23-2025 End: 75-67-2853Ffcyday encounter statusBlank Albrecht NP Work Phone: [facility] Work Phone: Start: 06-16-2025 End: 79-73-7877ugehafapfvOWJHF FAZIONot AvailableStart: 06-16-2025 End: 93-76-0245Baxely outpatient visit 15 minutesCorey Sebastian DO Work Phone: [facility] OBGYNComment on above:Encounter for visit ([facility]); Blood pressure checkStart: 06-16-2025 End: 61-22-7483Cvzuunq encounter statusCorey Sebastian DO Work Phone: NOBK HealthcareStart: 06-08-2025 End: 88-17-6828Hzzcrteen Result EncounterCorey Sebastian DO Work Phone: noms External Department UnsolicitedStart: 06-08-2025 End: 73-34-1296Zfvgfinaq Result EncounterCorey Sebastian DO Work Phone: n[facility] External Department UnsolicitedStart: 06-07-2025 End: 65-30-2715Zzxlgteab Result EncounterCorey Sebastian DO Work Phone: n[facility] External Department UnsolicitedStart: 06-07-2025 End: 74-33-6059Bqqphenmt Result EncounterCorey Sebastian DO Work Phone: n[facility] External Department UnsolicitedStart: 06-07-2025 End: 34-48-8005fofvsfgwtwAEGEB FAZIONot AvailableStart: 06-07-2025 End: 53-41-2176Tkwsjpzs flow sheetCorey Sebastian DO Work Phone: NOX[facility] OBGYNComment on above:Throbbing headache; Encounter for visit ([facility])Start: 06-04-2025 End: 56-98-7952Yzmllipat Result EncounterCorey Sebastian DO Work Phone: n[facility] External Department UnsolicitedStart: 06-04-2025 End: 54-85-8750Csfalnhfl Result EncounterCorey Sebastian DO Work Phone: n[facility] External Department UnsolicitedStart: 06-03-2025 End: 48-31-3702Sabufxmcp Result EncounterCorey Sebastian DO Work Phone: n[facility] External Department UnsolicitedStart: 06-03-2025 End: 81-67-8028Qdrnntfpm Result EncounterCorey Sebastian DO Work Phone: n[facility] External Department UnsolicitedStart: 06-02-2025 End: 66-39-4823Woceyyahg Result EncounterCorey Sebastian DO Work Phone: noms External Department UnsolicitedStart: 06-02-2025 End: 67-50-8347Iycmqwpds Result EncounterCorey Sebastian DO Work Phone: n[facility] External Department UnsolicitedStart: 06-02-2025 End: 71-54-5971Bwlikj outpatient visit 15 minutesKareem Hall APRN-[facility] Work Phone: [phone]-Xnweu Medicine at [facility] Comment on above:Gestational diabetes mellitus (GDM) in third trimester controlled on oral hypoglycemic drug (Primary Dx)Start: 06-02-2025 End: 75-88-1794iedejjxxzlBMCGONHW BROGANAdena Health Systemtart: 05-31-2025 End: 87-79-1522Vtywsy Naye RUBIO Work Phone: [facility] BCP OBStart: 05-31-2025 End: 27-51-6677Ecytxv Naye RUBIO Work Phone: [facility] B[facility] OBStart: 05-31-2025 End: 65-71-8197jqzhgmbtliTYY RAMEYNot AvailableStart: 05-31-2025 End: 10-96-7672Jzofbpby flow Nia RUBIO Work Phone: noms [facility] OBComment on above:Third trimester ([facility]); 36 weeks gestation of ([facility])Start: 05-30-2025 End: 86-56-5890Qgmtghiea Result EncounterCorey Sebastian DO Work Phone: n[facility] External Department UnsolicitedStart: 05-30-2025 End: 34-72-1609Vwixeklsg Result EncounterCorey Sebastian DO Work Phone: noms External Department UnsolicitedStart: 05-26-2025 End: 95-74-6108Dyghqlrto Result EncounterCorey Sebastian DO Work Phone: noms External Department UnsolicitedStart: 05-26-2025 End: 04-40-5026Wddznzgdi Result EncounterCorey Sebastian DO Work Phone: noms External Department UnsolicitedStart: 05-25-2025 End: 93-42-9391Uxjnowhcb Result EncounterCorey Sebastian DO Work Phone: noms External Department UnsolicitedStart: 05-25-2025 End: 59-93-3144Jfuvxnfsl Result EncounterCorey Sebastian DO Work Phone: noms External Department UnsolicitedStart: 05-24-2025 End: 31-81-9209Fllvyycrl Result EncounterCorey Sebastian DO Work Phone: noms External Department UnsolicitedStart: 05-24-2025 End: 24-69-8673Eimlekgwg Result EncounterCorey Sebastian DO Work Phone: noms External Department UnsolicitedStart: 05-24-2025 End: 59-52-5791Nrxpsmxgm encounterRufina Hurd CMAMaternal- Medicine at [facility] Systemtart: 05-24-2025 End: 96-37-4284xprwnlddgiLBI RAMEYNot AvailableStart: 05-24-2025 End: 56-62-5698Wcylyfyv flow sheetKristan RUBIO Work Phone: [facility]Z [facility] OBComment on above:Third trimester ([facility]); 35 weeks gestation of ([facility]); induced hypertension, antepartum ([facility])Start: 05-17-2025 End: 60-88-4058Gticeb flowsheetCorey Sebastian DO Work Phone: [facility] BCP OBStart: 05-17-2025 End: 74-00-4145Prylsj flowsheetCorey Sebastian DO Work Phone: [facility] B[facility] OBStart: 05-17-2025 End: 64-59-3516Eyvxdwdv flow sheetCorey Sebastian DO Work Phone: NOPJ [facility] OBComment on above:Third trimester ([facility]); 34 weeks gestation of ([facility]); Gestational diabetes mellitus (GDM), antepartum, gestational diabetes method of control unspecified([facility])Start: 05-17-2025 End: 73-86-5787ftmqbvwmwgOBBVU FAZIONot AvailableStart: 05-16-2025 End: 22-43-0434Xubhyimdb Result EncounterCorey Sebastian DO Work Phone: [facility] External Department UnsolicitedStart: 05-16-2025 End: 00-08-1525Yaiycibus Result EncounterCorey Sebastian DO Work Phone: [facility] External Department UnsolicitedStart: 05-09-2025 End: 72-38-7152Fmcdppnzm Result EncounterCorey Sebastian DO Work Phone: [facility] External Department UnsolicitedStart: 05-09-2025 End: 50-04-6406Ejjskvbpp Result EncounterCorey Sebastian DO Work Phone: [facility] External Department UnsolicitedStart: 05-02-2025 End: 27-17-7478Itmzhx Naye RUBIO Work Phone: [facility] BCP OBStart: 05-02-2025 End: 82-94-8665Brcsxn flowsAparna RUBIO Work Phone: [facility] BCP OBStart: 05-02-2025 End: 59-16-0106Ejbrlsryj Result EncounterCorey Sebastian DO Work Phone: [facility] External Department UnsolicitedStart: 05-02-2025 End: 18-37-5142Kvozpgny flow Nia RUBIO Work Phone: [phone] [facility] OBComment on above:32 weeks gestation of ([facility]); Third trimester ([facility])Start: 05-02-2025 End: 79-44-8811torkxcjoldITT RAMEYNot AvailableStart: 04-29-2025 End: 21-18-9795Gjbowxmnz encounteruRfina Hurd CMAMaternal- Medicine at [facility] Systemtart: 04-25-2025 End: 32-23-7241Hwgupbzxm Result EncounterCorey Sebastian DO Work Phone: noMS External Department UnsolicitedStart: 04-25-2025 End: 97-79-3121Myksmfedw Result EncounterCorey Sebastian DO Work Phone: noms External Department UnsolicitedStart: 04-19-2025 End: 47-65-1561Uhqjvykdo encounterRufina Hurd CMAMaternal- [facility] at [facility] HospitalStart: 04-19-2025 End: 91-14-5773Jqbicc outpatient visit 25 minutesColleen E Karla RUBIO-C Work Phone: [phone]-Gnmbb Medicine at [facility] Comment on above:Gestational diabetes mellitus (GDM) in second trimester controlled on oral hypoglycemic drug (Primary Dx)Start: 04-19-2025 End: 11-73-0196ostfbqjkptCYZOOSJ E LAVOYProMedica Lexington HospitalStart: 04-18-2025 End: 23-32-2517Pparub flowsheetCorey Sebastian DO Work Phone: n[facility] BCP OBStart: 04-18-2025 End: 69-83-2303Zjmkqg flowsheetCorey Sebastian DO Work Phone: n[facility] BCP OBStart: 04-18-2025 End: 65-97-7880Qzrdzduyl Result EncounterCorey Sebastian DO Work Phone: noms External Department UnsolicitedStart: 04-18-2025 End: 57-74-3061zdbptjrjixGULLL FAZIONot AvailableStart: 04-18-2025 End: 78-35-8170Srxyyyty flow sheetCorey Sebastian DO Work Phone: n[facility] BCP OBComment on above:30 weeks gestation of ; Third trimester pregnancyStart: 04-11-2025 End: 16-98-2130Lezwkgcoc Result EncounterCorey Sebastian DO Work Phone: noms External Department UnsolicitedStart: 04-11-2025 End: 23-10-7923Tjhhhfyfr Result EncounterCorey Sebastian DO Work Phone: noms External Department UnsolicitedStart: 04-05-2025 End: 48-29-9826Peuwdl flowsheetCorey Sebastian DO Work Phone: n[facility] BCP OBStart: 04-05-2025 End: 93-47-4998Ifqkze flowsheetCorey Sebastian DO Work Phone: noms BCP OBStart: 04-05-2025 End: 05-38-3783Sruiblbs flow sheetCorey Sebastian DO Work Phone: noms BCP OBComment on above:Third trimester ; 28 weeks gestation of ; Gestational diabetes mellitus (GDM), antepartum, gestational diabetes method of control unspecified; H/O: hypertensionStart: 04-05-2025 End: 12-18-1591toquyvhuviGEZXF FAZIONot AvailableStart: 03-23-2025 End: 88-28-1627Vrsbmkkcx Luis Miguel Hurd CMAMaternal- Medicine at [facility] Systemtart: 03-23-2025 End: 88-85-5402Vvpgkr outpatient visit 25 minutesKareem YAP Work Phone: [phone]-Komkj Medicine at [facility] Comment on above:Gestational diabetes mellitus (GDM) in second trimester controlled on oral hypoglycemic drugStart: 03-23-2025 End: 90-87-5448pmamaexazeMMTBDTCZ BROGANProMedica Bucyrus Community Hospitaltart: 03-16-2025 End: 72-13-4109Xzhvwiusl Martell Lopez RN Work Phone: [phone]-Pentq Medicine at [facility] Start: 03-14-2025 End: 05-42-5347Kuiyuc flowsheetCorey Sebastian DO Work Phone: noms BCP OBStart: 03-14-2025 End: 65-39-6008Oicyrt flowsheetCorey Sebastian DO Work Phone: noms BCP OBStart: 03-14-2025 End: 95-68-0576ifeluzzwafPDLKV FAZIONot AvailableStart: 03-14-2025 End: 76-01-4817Djqfdrul flow sheetCorey Sebastian DO Work Phone: noms [facility] OBComment on above:Second trimester ; 25 weeks gestation of pregnancyStart: 03-08-2025 End: 46-44-7118Nwrigaudn encounterRufina Hurd CMAMaternal- Medicine at [facility] Systemtart: 03-08-2025 End: 31-00-4849Ipgkch outpatient new 45 minutesColleen E Lavoy PA-C Work Phone: [phone]-Ywwfb Medicine at [facility] Comment on above:Gestational diabetes mellitus (GDM) in second trimester controlled on oral hypoglycemic drug (Primary Dx)Start: 03-08-2025 End: 16-71-1477ywbwnytrukKKAPOCL E LAVOYProMedica Lexington HospitalStart: 03-07-2025 End: 27-27-1346Lxlxcsqxs Result EncounterCorey Sebastian DO Work Phone: noms External Department UnsolicitedStart: 03-07-2025 End: 64-96-0649Fmzywnysa Result EncounterCorey Sebastian DO Work Phone: noms External Department UnsolicitedStart: 03-04-2025 End: 47-13-1740Ikuqhksad encounterAmanda Puccetti RNMaternal- Medicine at [facility] Systemtart: 03-02-2025 End: 32-92-9150Qwilgchob encounterAmanda Puccetti RNMaternal- Medicine at [facility] Systemtart: 02-24-2025 End: 55-61-3281Gcyrrpqds encounterDekaneeze Juddvaughn BARRY Work Phone: [phone]-Nswwx Medicine at [facility] Start: 02-21-2025 End: 77-30-6916Sbaxuj flowsheetCorey Sebastian DO Work Phone: noms BCP OBStart: 02-21-2025 End: 39-82-1539Kcpxpw flowsheetCorey Sebastian DO Work Phone: noms BCP OBStart: 02-21-2025 End: 36-80-6763zwwmbzfkvxMVWXR FAZIONot AvailableStart: 02-21-2025 End: 05-02-2885Apquwbhf flow sheetCorey Sebastian DO Work Phone: noms BCP OBComment on above:Second trimester ; 22 weeks gestation of pregnancyStart: 02-16-2025 End: 80-17-6680zfdrbsfliaIQAAP FISCHERAdena Health Systemtart: 02-16-2025 End: 81-17-7803Jjmzmxos care educationViolet Lopez RN Work Phone: [phone]-Bztij [facility] at [facility] [place] Comment on above:Diet controlled gestational diabetes mellitus (GDM) in second trimester (Primary Dx); Encounter for diabetes educationStart: 02-14-2025 End: 09-91-1389dgccluvaypORYGW FAZIONot AvailableStart: 02-07-2025 End: 65-92-1165Tjsnt Linden YAP Work Phone: [phone]-Oxeft Medicine at [facility] [place] Start: 02-07-2025 End: 86-62-0321Rlvwxttie Result EncounterCorey Sebastian DO Work Phone: noms External Department UnsolicitedStart: 02-07-2025 End: 22-04-8781Vqoqwjmsd Result EncounterCorey Sebastian DO Work Phone: [facility] External Department UnsolicitedStart: 01-24-2025 End: 33-35-2776naecftwpuaQOWFG FAZIONot AvailableStart: 01-08-2025 End: 62-18-6156Jucbsiakq Result EncounterCorey Sebastian DO Work Phone: [facility] External Department UnsolicitedStart: 01-08-2025 End: 72-06-7892Urojuawag Result EncounterCorey Sebastian DO Work Phone: [facility] External Department UnsolicitedStart: 12-28-2024 End: 58-30-1502Drnvxw flowsheetCorey Sebastian DO Work Phone: [facility] BCP OBStart: 12-28-2024 End: 54-10-0683Psnmae flowsheetCorey Sebastian DO Work Phone: [facility] BCP OBStart: 12-28-2024 End: 79-46-3427Whgquamb flow sheetCorey Sebastian DO Work Phone: [facility] BCP OBComment on above:Second trimester ; 14 weeks gestation of ; Diabetes mellitus screeningStart: 12-28-2024 End: 67-51-1736iuhovokyknGFMKZ FAZIONot AvailableStart: 11-27-2024 End: 18-40-2780Ayqjupevf Result EncounterCorey Sebastian DO Work Phone: [facility] External Department UnsolicitedStart: 11-27-2024 End: 75-22-9401Womtymxvk Result EncounterCorey Sebastian DO Work Phone: [facility] External Department UnsolicitedStart: 11-26-2024 End: 21-38-0251gbcfmcohniXMLFM FAZIONot AvailableStart: 11-26-2024 End: 71-20-6084Cjuhkr outpatient visit 5 minutesNoms Bcp Ob Sebastian NurseNOMS BCP OBComment on above:GA: 04f6aLxqlz: 57-78-9403jzhdjuscyySG NOLAN SEBASTIAN . Facility:W3Ougmw: 03-29-2023 End: 48-70-0004screqvxvllIHO POLINA .Facility:X9Amcyd: 03-21-2023 End: 45-25-1900wjpogttfywBQ NOLAN SEBASTIAN .Facility:O9Sqwwv: 02-18-2023 End: 34-69-0659ebvrastchvWZ NOLAN SEBASTIAN .Facility:K6Hxitl: 02-13-2023 End: 30-33-9299xflhurxtfxDA NOLAN SEBASTIAN .Facility:Z3Zdhqz: 01-31-2023 End: 49-24-7480agzyctehmvHB NOLAN SEBASTIAN .Facility:J6Bdfkx: 01-28-2023 End: 34-33-9619jsudhmwfnsSV DOCTOR MISCFacility:L7Lohug: 01-23-2023 End: 52-56-0359vwvlmtunzbHN NOLAN SEBASTIAN .Facility:L2Mjqxs: 09-11-2022 End: 11-26-6401ljtgpqjyfxAX JULIANNE LAMBERT .Facility: Procedures DateProcedureProcedure DetailPerforming ClinicianStart: 53-23-3466Aj angiography chest w/contrast/noncontrastCorey Sebastian DO Work Phone: Start: 33-68-3499YNG CBC WITH AUTO DIFFCorey Sebastian DO Work Phone: Start: 62-43-4017DBI CBC WITH AUTO DIFFCorey Sebastian DO Work Phone: Start: 66-91-3359RSK CBC WITH AUTO DIFFCorey Sebastian DO Work Phone: Start: 93-24-2158QQG CBC WITH AUTO DIFFCorey Sebastian DO Work Phone: Start: 55-60-5997JUY CBC WITH AUTO DIFFCorey Sebastian DO Work Phone: Start: 64-47-6450Kckbx dip stick/tablet rgnt non-auto w/o micrscpAmy Polina RUBIO Work Phone: Start: 62-87-8033CG OB BPP W NON-STRESSCorey Sebastian DO Work Phone: Start: 48-15-1313FY OB BPP W NON-STRESSCorey Sebastian DO Work Phone: Start: 44-91-4836IL OB GROWTHCorey Sebastian DO Work Phone: Start: 19-61-4467Ygnmy dip stick/tablet rgnt non-auto w/o micrscpAmy Polina RUBIO Work Phone: Start: 05-12-5944BD OB BPP W NON-STRESSCorey Sebastian DO Work Phone: Start: 71-48-7255TX OB BPP W NON-STRESSCorey Sebastian DO Work Phone: Start: 47-46-0300HW OB BPP W NON-STRESSCorey Sebastian DO Work Phone: Start: 05-44-8515IM OB BPP W NON-STRESSCorey Sebastian DO Work Phone: Start: 85-54-1969Topis dip stick/tablet rgnt non-auto w/o micrscpKristina Trena CORTES Work Phone: Start: 23-95-2282DP OB BPP W NON-STRESSCorey Sebastina DO Work Phone: Start: 33-59-4195KZ OB BPP W NON-STRESSCorey Sebastian DO Work Phone: Start: 51-55-2943Pzotq dip stick/tablet rgnt non-auto w/o micrscpCorey Sebastian DO Work Phone: Start: 52-76-0182HK OB BPP W NON-STRESSCorey Sebastian DO Work Phone: Start: 56-90-5018Onrbe dip stick/tablet rgnt non-auto w/o micrscpCorey Sebastian DO Work Phone: Start: 74-92-2334Rkilrjvwkq glycosylated b9yKjnepvpmegan Acosta PA-C Work Phone: Start: 87-88-4224LR OB INCOMPLETE ANATOMYCorey Sebastian DO Work Phone: Start: 27-13-5374Gxylp dip stick/tablet rgnt non-auto w/o micrscpCorey Sebastian DO Work Phone: Start: 76-33-3042Kennfly quantitative blood xcpt reagent stripKareem Hall [facility] Work Phone: Start: 39-11-2683ITM, SERUM, OPEN SPINA BIFIDACorey Sebastian DO Work Phone: Start: 25-16-6212WWFAWJFXA/GC BY PCR HOLLEY SWABNot In System Ref ProvStart: 43-46-9210GYQRWMVMZ/GC BY PCR THINPREP FLUIDNot In System Ref ProvStart: 39-32-8327Lokfe count complete automatedNot In System Ref Prov Start: 71-00-9753WKV CBC WITH AUTO DIFFCorey Sebastian DO Work Phone: Start: 92-46-2122Tusqr dip stick/tablet rgnt non-auto w/o micrscpCorey Sebastian DO Work Phone: Start: 88-59-8208Raspfrvz screenKareem Hall [facility] Work Phone: Start: 15-68-3426Upoc scrn 1+ class nonchromoNot In System Ref ProvStart: 29-49-3278HNEMO FREE CELL DNA (NON-[place])Not In System Ref ProvStart: 70-19-7558Rovstutxwh glycosylated c9lIkzwa R Sebastian DO Work Phone: Start: 25-32-6644DUG 1&2 AB/AG SCREEN (P24 AG)Not In System Ref ProvStart: 86-85-4698Ajdg ia hepatitis b surface antigenNot In System Ref ProvStart: 19-73-1812Mikwizqg test non-treponemal antibody qualNot In System Ref ProvStart: 78-37-5304EEAG AND SCREENNot In System Ref ProvStart: 81-60-3962HBN CBC WITH AUTO DIFFCorey Sebastian DO Work Phone: Start: 42-74-0590Bxbifwglidl observation [Identifier] in Cervix by Cyto Nargis YAP Work Phone: Plan of Treatment DateCare ActivityDetailAuthorStart: 78-83-5486Ymvim BMI ScreeningAdult BMI ScreeningSCCI Hospital [facility]ima SystemStart: 41-45-7652Dlbuuihuo for malignant neoplasm of cervixPap SmearProUniversity Hospitals [facility] SystemStart: 64-42-6052Gzzaz BMI ScreeningAdult BMI ScreeningProUniversity Hospitals [facility] SystemStart: 07-14-2025 End: 98-82-4085sshmenqoko28/04/2025 1:30 PM EDT Visit [facility] [address] [place], [id number] Blank Albrecht, ASBESTOS HAZARD ABATEMENT WORKER [address] [place] [phone] [facility] [place] OBGYNStart: 20-67-1144Kjsurlmzh vaccinationInfluenza VaccineSCCI Hospital Lima SystemStart: 06-30-2025 End: 06-13-5028yczxcubyni57/21/2025 10:50 AM EDT Visit [facility] [address] [place] [address] Kristan Fish PA [address] [place] [address] [facility] [place] OBGYNStart: 06-23-2025 End: 22-61-4288avovnjmmyi26/14/2025 9:30 AM EDT Visit [facility] [address] [place], [id number] Blank Albrecht, ASBESTOS HAZARD ABATEMENT WORKER [address] [place] [phone] [facility] BURKSNStart: 06-07-2025 End: 83-05-5865Bcsijfg encounter procedureNOMS BCP OBStart: 06-02-2025 End: 08-09-3208Qjbtxwtkhqbr consultation with kmcgukd3606/02/2025 9:30 AM EDT Telemedicine Maternal- Medicine at [facility] [address] [facility] [place] [address] Kareem Hall, SENIOR ENGINEERING SPECIALIST-NURSE INFORMATICIST [address] [facility] [place] [address] [facility] 05-31-2025 End: 20-27-1624DFYGVBA, GROUP B STREP WITH SUSCEPTIBLITYCULTURE, GROUP B STREP WITH SUSCEPTIBLITY Lab Routine Third trimester ([facility]) Expected: 05/31/2025, Expires: 05/31/2026[facility] Work Phone: comment on above:Expected: 05/31/2025, Expires: 05/31/2026Start: 05-31-2025 End: 94-24-2440Uvvmujs encounter rxcponsol10/22/2025 10:50 AM EDT Routine [facility] [address] [facility] [place] [phone] Kristan Fish PA [address] [facility] [address] [place], [place] [id number] [facility] BCP OBStart: 05-24-2025 End: 49-66-6084Lbimegw encounter mxjfrusez52/15/2025 8:40 AM EDT Routine [facility] B[facility] OB [address] [place] [address] Kristan Fish, PA [address] [place] [address] [facility] BCP OBStart: 05-17-2025 End: 62-57-2167Nrdfkzk encounter fadtfbyki57/08/2025 11:40 AM EDT Routine [facility] B[facility] OB [address] [place] [address] Nolan Cortes, DO [facility] [place] [address] [facility] BCP OBStart: 05-02-2025 End: 05-84-8325Zyhztyb encounter procedureNOMS BCP OBComment on above:Arrived Start: 04-19-2025 End: 08-90-3847Hvmcqyjdfiyv consultation with aylxekj6104/19/2025 10:30 AM EDT Telemedicine Maternal- Medicine at [facility] [address] [facility] [place] [place] [address] Kenya Acosta PA-C [address], [id number] [facility]: 04-18-2025 End: 79-31-5633Stujiog encounter cbisemyuw31/09/2025 1:00 PM EDT Routine [facility] B[facility] OB [address] [place] [address] Nolan Cortes, [address] [place] [address] [facility] BCP OBStart: 04-05-2025 End: 77-04-5884PR biophysical profile w non stress testUS biophysical profile w non stress test Imaging Routine Gestational diabetes mellitus (GDM),antepartum, gestational diabetes method of control unspecified H/O: hypertension Expected: 04/05/2025 (Approximate), Expires: 10/06/2025N[facility] HealthcareComment on above:Expected: 04/05/2025 (Approximate), Expires: 10/06/2025Start: 04-05-2025 End: 78-85-3160Unwzviv encounter procedureNOMS BCP OBComment on above:Arrived Start: 03-23-2025 End: 06-13-4417Tpomeozyoyzr consultation with nqgcada9803/23/2025 10:30 AM EDT Telemedicine Maternal- Medicine at [facility] [address] [facility] [place] [address] Kareem Hall, GABINO-NURSE INFORMATICIST [address] [place] [address] [facility]: 03-14-2025 End: 39-33-0628Zefdypf encounter akglvbgow06/05/2025 1:50 PM EDT Routine [facility] [address] [place] [address] Nolan Cortes DO [address] [place], [place] [phone] [facility] BCP OBStart: 03-08-2025 End: 79-15-6265Pcnismq creat ratioProtein creat ratio Lab Routine Gestational diabetes mellitus (GDM) in second trimester controlled on oral hypoglycemic drug Expected: 03/08/2025 (Approximate), Expires: 06/07/2025[facility] Comment on above:Expected: 03/08/2025 (Approximate), Expires: 06/07/2025Start: 03-08-2025 End: 68-47-1301Zxzbjfm encounter czlrexehz42/29/2025 1:00 PM EDT Office Visit Maternal- Medicine at [facility] [address] [facility] [place] [address] Kenya Acosta PA-C [address] [place] [address] [facility] 02-21-2025 End: 61-91-2347Dcvfirl encounter sevpotffj65/14/2025 1:20 PM EDT Routine [facility] [address] [place] [address] Nolan Cortes, DO [address] [place] [address] [facility] BCP OBStart: 02-14-2025 End: 91-86-7631Hqskhzqcmrym / ancillary services fmtpuloaqi31/07/2025 1:00 PM EDT Ancillary Procedure [facility] [address] [place] [phone] [facility] BCP OBStart: 02-10-2025 End: 47-62-0945ihsckjjbwq14/03/2025 1:30 PM EDT Support Visit Maternal- Medicine at [facility] [address] [place] [phone] Violet oLpez RN [address] [facility], [address] [place] [address], [place] [address] Jewels Pedersen, [place] [address] [facility] [place] [address] [facility]: 01-24-2025 End: 32-31-3836Jbpmykw encounter djmxwvcze44/17/2025 11:20 AM EDT Routine [facility] [address] [facility] [place] [address] Nolan Cortes, DO [address] [place] [address] [facility] OBStart: 12-28-2024 End: 30-34-9597Cledtlgxayu of glucose 1 hour after glucose challenge for glucose tolerance testGlucose tolerance, 1 hour Lab Routine Diabetes mellitus screening Expected: 12/28/2024 (Approximate), Expires: 12/28/2025[facility] Work Phone: comment on above:Expected: 12/28/2024 (Approximate), Expires: 12/28/2025Start: 12-28-2024 End: 45-78-0962Ybhwodc encounter procedureNOSETON [facility] OBComment on above:Arrived Start: 12-27-2024 End: 13-00-8578Fxiipgi encounter /17/2025 1:40 PM EST Routine [facility] [address] [facility] [address] Nolan Cortes, DO [address] [facility] [place] [address] [facility] BCP OBStart: 11-26-2024 End: 27-60-5526OOE/RhABO/Rh Lab Routine Missed menses , unspecified gestational age Expected: 11/26/2024 (Approximate), Expires: 11/26/2025[facility] HealthcareComment on above:Expected: 11/26/2024 (Approximate), Expires: 11/26/2025Start: 11-26-2024 End: 71-67-1387Vymnt type and Indirect antibody screen panel - BloodType and screen Lab Routine Missed menses , unspecified gestational age Expected: 11/26/2024 (Approximate), Expires: 11/26/2025[facility] Work Phone: comment on above:Expected: 11/26/2024 (Approximate), Expires: 11/26/2025Start: 11-26-2024 End: 01-73-4490Qnyns of abuse panel - Urine by Screen methodRapid drug screen, urine Lab Routine , unspecified gestational age Encounter for supervision of normal first in first trimester Expected: 11/26/2024 (Approximate), Expires: 11/26/2025[facility] HealthcareComment on above:Expected: 11/26/2024 (Approximate), Expires: 11/26/2025Start: 25-53-2453Pxnbchkdw vaccinationInfluenza VaccineProUniversity Hospitals [facility] SystemStart: 66-33-6155Jahsd BMI ScreeningAdult BMI ScreeningProUniversity Hospitals [facility] SystemStart: 27-80-6666Ulumpuz ScreeningTobacco ScreeningProUniversity Hospitals [facility] SystemStart: 01-26-4199ISbZ,Tdap and Td Vaccines (1 - Tdap)DTaP,Tdap and Td Vaccines (1 - Tdap)[facility] SystemStart: 96-57-1260Fgyrdmlomh ScreeningDepression ScreeningProUniversity Hospitals [facility] SystemStart: 17-54-6623Sfkdael ScreeningTobacco ScreeningSCCI Hospital [facility] System Bacteria identified in Urine by CultureUrine culture Microbiology Routine Missed menses Ordered: 11/26/2024[facility] HealthcareComment on above:Ordered: 11/26/2024 CBC W Auto Differential panel - BloodCBC and differential Lab Routine Missed menses , unspecified gestational age Ordered: 11/26/2024[facility] Comment on above:Ordered: 11/26/2024 End: 43-40-4665Yxvpsovjdirfb metabolic 2000 panel - Serum or PlasmaComprehensive metabolic panel Lab Routine Gestational diabetes mellitus (GDM) in second trimester controlled on oral hypoglycemic drug 1 Occurrences starting 03/08/2025 until 03/08/2026[facility] Work Phone: comment on above:1 Occurrences starting 03/08/2025 until 03/08/2026Hemoglobin A1c/Hemoglobin.total in BloodHemoglobin A1c Lab Routine Missed menses , unspecified gestational age Ordered: 11/26/2024 [facility] HealthcareComment on above:Ordered: 11/26/2024Hepatitis B virus surface Ag [Presence] in Serum or Plasma by ImmunoassayHepatitis B surface antigen Lab Routine Missed menses , unspecified gestational age Ordered: 11/26/2024 [facility] HealthcareComment on above:Ordered: 11/26/2024Hepatitis C virus Ab [Presence] in Serum or Plasma by ImmunoassayHepatitis C antibody Lab Routine Missed menses , unspecified gestational age Ordered: 11/26/2024[facility] HealthcareComment on above:Ordered: 11/26/2024HIV-1/HIV-2 antigen/antibody combination immunoassayHIV-1 and HIV-2 antibodies Lab Routine Missed menses , unspecified gestational age Ordered: 11/26/2024[facility] HealthcareComment on above:Ordered: 11/26/2024Reagin Ab [Presence] in Serum by RPRRPR Lab Routine Missed menses , unspecified gestational age Ordered: 11/26/2024[facility] HealthcareComment on above:Ordered: 11/26/2024Rubella antibody, IgGRubella antibody, IgG Lab Routine Missed menses , unspecified gestational age Ordered: 11/26/2024[facility] HealthcareComment on above:Ordered: 11/26/2024 End: 22-32-8176QU for pregnancyUS OB follow up transabdominal approach Imaging Routine Gestational diabetes mellitus (GDM), antepartum, gestational diabetes method of control unspecified H/O: hypertension q1oobuo for 4 Occurrences starting 04/05/2025 until 10/06/2025[facility] Work Phone: comment on above:m3fnugf for 4 Occurrences starting 04/05/2025 until 10/06/2025 Immunizations Immunization DateImmunizationNotesCare GhnqokmdYiwowyjw97-81-5124orvnpheur virus vaccine, unspecified formulationKareem Hall SENIOR ENGINEERING SPECIALIST-NURSE INFORMATICIST Work Phone: p[facility]10-16-2021RHO(D) immune globulin- IV or IMKareem Hall SENIOR ENGINEERING SPECIALIST-NURSE INFORMATICIST Work Phone: p[facility] Payers DatePayer CategoryPayerPolicy [id number] [id number] - PPOANTHEM [id number] 2.16.840.1.004449.3.57[id number] 2.16840.1.475589.3.57[id number] 2.16840.1.197103.3.57[id number] 2.16840.1.549451.3.57[id number] 2.840.1.710134.3.579.2.77069-50-4965Esiwqwe0701635 2.840.1.232149.3.579.2.41648-33-3827Stkgiuh0862837 2.840.1.634888.3.57[id number] 2.16.840.1.962681.3.579.2.37060-58-9315Gqcxjjj9451137 2.840.1.894341.3.579.2.30904-41-6320Kbhychs177097571 2.16840.1.381790.3.579.2.78[id number] 2.16840.1.418788.3.579.2.367011-96-6394Plictzs060062039 2.16.840.1.450370.3.57[id number] 2.16840.1.474526.3.57[id number] 2.840.1.947067.3.579.[id number] 2.840.1.793927.3.57[id number] 2.16840.1.061176.3.57[id number] 2.840.1.523882.3.57[id number] 2.840.1.731826.3.579.2.067777-29-3852Omdcfvs13602791 2.0.1.010494.3.579.[id number] 2..1.283624.3.579.2.[id number] 2.840.1.818896.3.579.2.[id number] 2..1.187152.3.579.2.673208-37-7747Rugwtmo84282355 2.0.1.315657.3.57[id number] 2..1.131524.3.579.2.676671-87-8047Wuillrq64403949 2.840.1.719065.3.579.2.358482-73-4906Znyepoq4686817 2.840.1.435788.3.579.2.392485-81-7036Fpvijll3609648 2.840.1.019154.3.579.2.029633-04-1094Vctnzkk3899979 2.840.1.248280.3.579.2.779173-07-8774Kwvklji7174054 2.16.840.1.039405.3.579.2.681560-78-6860Fmjedjs4551206 2..840.1.932783.3.579.2.480124-52-1563Zwmxmuy8577128 2..840.1.224116.3.579.2.495145-75-7542Sochskt3426668 2..840.1.661260.3.579.2.473296-72-0679TnenkssTEFGI7471809 Social History DateTypeDetailFacilityStart: 02-18-2023 End: 26-75-4424Uqfzwyd smoking status NHISEx-smokerNOMS HealthcareHistory of tobacco useCurrent smokerNOMS HealthcareHistory of tobacco useCigarette Smoker [facility] HealthcareStart: 11-26-2024 End: 89-70-0483Dtundkpyz beverage intakeLifetime non-drinker (finding)[facility] HealthcareStart: 03-18-2024 End: 83-31-1444Hdpcfud of Social functionNOMS HealthcareStart: 03-18-2024 End: 99-93-7286Jwrwktw use panelNOMA HealthcareStart: 35-82-9006FuxgzxmusTHCE HealthcareStart: 05-15-3890Vkk assigned at birthNot on fileNOMA Healthcare History of tobacco useTobacco Use Types Packs/Day Years Used Date Smoking Tobacco: Former Vaping/E-cigarettes Smokeless Tobacco: NeverS[facility] SystemStart: 70-02-9700Plaukxg use and exposureSmokeless tobacco non-user [facility] SystemStart: 02-07-2025 End: 62-98-5655Niongivsk beverage intakeEx-drinker (finding)[facility] SystemChildcareUnknoOwatonna Hospital SystemStart: 74-22-8500Qdskxxk Comment rareS[facility]I Hospital [facility] SystemStart: 30-87-3315Etb assigned at birthAmerican Academic Health System SystemStart: 72-23-1113TdjNgfuxq (finding)[facility] SystemStart: 68-68-1742Afrxgr identityIdentifies as female gender (finding)Aidintart: 68-62-7921Vzhqmd orientationHeterosexual (finding)[facility] HospitalApplaud Medical Equipment Procedure CodeEquipment CodeEquipment Original TextEquipment IdentifierDates [id number], [id number], [id number]: 01-24-2025 End: 02-23-2025 Clinical Notes 11-26-2024 to 07-14-2025 Note Date & BczrHtfgAvgckppd47-95-0098 History of Present illness Narrative* Blank Albrecht, ASBESTOS HAZARD ABATEMENT WORKER - 07/14/2025 1:30 PM EDT Reason for Appointment: Patient ID: [...] Noted Benign essential hypertension in obstetric context ([facility]) 04/18/2023 Exposure to cat feces 04/18/2023 Gestational diabetes ([facility]) 04/18/2023 Nausea 04/18/2023 History of delivery 02/24/2023 Resolved Ambulatory Problems Diagnosis Date Noted No Resolved Ambulatory Problems Past Medical History: Diagnosis Date Chronic hypertension affecting ([facility]) Exposure to cat feces, sequela Former smoker Herpes exposure History of miscarriage Morbid obesity with BMI of 40.0-44.9, adult ([facility]) HISTORY PAST MEDICAL HISTORY SOCIAL HISTORY Past Medical History: Diagnosis Date Chronic hypertension affecting ([facility]) Exposure to cat feces, sequela Former smoker Gestational diabetes ([facility]) Herpes exposure History of miscarriage Morbid [...] nursing note reviewed. Exam conducted with a noise tester present. Vitals: Estimated body mass index is 44.76 kg/m as calculated from the following: Height as of 09/09/23: 5' 7 . Weight as of 06/30/25: 285 lb 12.8 oz. BP: No LMP recorded. ASSESSMENT & PLAN ICD-10-CM 1. 6 weeks follow-up ([facility]) Z39.2 2. Spontaneous vaginal delivery ([facility]) O80 Post Follow Up: Patient is doing well has no complaints. Patient presents today for 6 week visit. Patient is s/p Vaginal delivery. Patient states no depression denies suicidal and homicidal ideations. Alloptions were discussed with the patient regarding control [...] of: Blank Albrecht NP documented in this encounterSt. Luke's HospitalHrkkcfzyjs57-00-4749 History of Present illness Narrative* JOANNE Hernandez - 07/07/2025 1:50 PM EDT 5Reason for Appointment: Patient ID: Charlene Purvis is a 34 y.o. female who presents for No chief complaint on file. Patient presents today via telephone call for a telehealth appointment. Patients Phone #: [phone] (mobile) Date: 07/07/2025 Time: 2:18 PM of the visit Platform Used: Audio call performed via in house telephone system. Location of Patient and Provider: Patient at home, provider at clinic Consent for Telehealth: Patient provided verbal consent to conduct the visit virtually via audio only phone call Current Medications: has a current medication list which includes the following prescription(s): ascorbic acid, ferosul,labetalol, and labetalol. Medical History: Active Ambulatory Problems Diagnosis Date Noted Benign essential hypertension in obstetric context ([facility]) 04/18/2023 Exposure to cat feces 04/18/2023 Gestational diabetes ([facility]) 04/18/2023 Nausea 04/18/2023 History of delivery 02/24/2023 Resolved Ambulatory Problems Diagnosis Date Noted No Resolved Ambulatory Problems Past Medical History: Diagnosis Date Chronic hypertension affecting ([facility]) Exposure to cat feces, sequela Former smoker Herpes exposure History of miscarriage Morbid obesity with BMI of 40.0-44.9, adult ([facility]) Family History Problem Relation Name Age of [...] minutes talking to patient on the phone. Patientblood pressure is normal and she may stop taking blood pressure medications. Pt will follow up on 07/14 for 6 week post appt Documented by JOANNE Hernandez on behalf of: JOANNE Hernandez documented in this encounterSt. Luke's [id number] History of Present illness Narrative* JOANNE Hernandez - 06/30/2025 10:50 AM EDT Reason for Appointment: Patient [...] Noted Benign essential hypertension in obstetric context ([facility]) 04/18/2023 Exposure to cat feces 04/18/2023 Gestational diabetes ([facility]) 04/18/2023 Nausea 04/18/2023 History of delivery 02/24/2023 Resolved Ambulatory Problems Diagnosis Date Noted No Resolved Ambulatory Problems Past Medical History: Diagnosis Date Chronic hypertension affecting ([facility]) Exposure to cat feces, sequela Former smoker Herpes exposure History of miscarriage Morbid obesity with BMI of 40.0-44.9, adult ([facility]) HISTORY PAST MEDICAL HISTORY SOCIAL HISTORY Past Medical History: Diagnosis Date Chronic hypertension affecting ([facility]) Exposure to cat feces, sequela Former smoker Gestational diabetes ([facility]) Herpes exposure History of miscarriage Morbid obesity with BMI of 40.0-44.9, adult ([facility] [facility] Social History Tobacco Use Smoking status: [...] behalf of: JOANNE Hernandez documented in this encounterSt. Luke's [id number] NoteUT Cardiology - [facility] Subjective Charlene Purvis is a 34 [...] rhythm, normal ECG Assessment/ (more content not included)...[facility] 06-23-2025 History of Present illness Narrative* Blank Albrecht, [employer] ABATEMENT WORKER - 06/23/2025 9:30 AM EDT Reason for Appointment: Patient ID: [...] Noted Benign essential hypertension in obstetric context ([facility]) 04/18/2023 Exposure to cat feces 04/18/2023 Gestational diabetes ([facility]) 04/18/2023 Nausea 04/18/2023 History of delivery 02/24/2023 Resolved Ambulatory Problems Diagnosis Date Noted No Resolved Ambulatory Problems Past Medical History: Diagnosis Date Chronic hypertension affecting ([facility]) Exposure to cat feces, sequela Former smoker Herpes exposure History of miscarriage Morbid obesity with BMI of 40.0-44.9, adult ([facility]) HISTORY PAST MEDICAL HISTORY SOCIAL HISTORY Past Medical History: Diagnosis Date Chronic hypertension affecting ([facility]) Exposure to cat feces, sequela Former smoker Gestational diabetes ([facility]) Herpes exposure History of miscarriage Morbid [...] NP on behalf of: Blank Albrecht NP * Blank Albrecht NP - 06/23/2025 9:30 AM EDT Reason for Appointment: Patient ID: [...] Noted Benign essential hypertension in obstetric context ([facility]) 04/18/2023 Exposure to cat feces 04/18/2023 Gestational diabetes ([facility]) 04/18/2023 Nausea 04/18/2023 History of delivery 02/24/2023 Resolved Ambulatory Problems Diagnosis Date Noted No Resolved Ambulatory Problems Past Medical History: Diagnosis Date Chronic hypertension affecting ([facility]) Exposure to cat feces, sequela Former smoker Herpes exposure History of miscarriage Morbid obesity with BMI of 40.0-44.9, adult ([facility]) HISTORY PAST MEDICAL HISTORY SOCIAL HISTORY Past Medical History: Diagnosis Date Chronic hypertension affecting ([facility]) Exposure to cat feces, sequela Former smoker Gestational diabetes ([facility]) Herpes exposure History of miscarriage Morbid [...] nursing note reviewed. Exam conducted with a noise tester present. Vitals: Estimated body mass index is [...] of: Blank Albrecht NP documented in this encounterSt. Luke's [id number] History of Present illness Narrative* Carole Maxwell LPN - 06/16/2025 9:20 AM EDT Reason for Appointment: Patient ID: [...] Noted Benign essential hypertension in obstetric context ([facility]) 04/18/2023 Exposure to cat feces 04/18/2023 Gestational diabetes ([facility]) 04/18/2023 Nausea 04/18/2023 History of delivery 02/24/2023 Resolved Ambulatory Problems Diagnosis Date Noted No Resolved Ambulatory Problems Past Medical History: Diagnosis Date Chronic hypertension affecting ([facility]) Exposure to cat feces, sequela Former smoker Herpes exposure History of miscarriage Morbid obesity with BMI of 40.0-44.9, adult ([facility]) HISTORY PAST MEDICAL HISTORY SOCIAL HISTORY Past Medical History: Diagnosis Date Chronic hypertension affecting ([facility]) Exposure to cat feces, sequela Former smoker Gestational diabetes ([facility]) Herpes exposure History of miscarriage Morbid [...] nursing note reviewed. Exam conducted with a noise tester present. Vitals: Estimated body mass index is 43.67 kg/m as calculated from the following: Height as of 23: 5' 7 . Weight as of this encounter: 278 lb 12.8 oz. BP: 118/74 No LMP recorded. ASSESSMENT & PLAN ICD-10-CM 1. Encounter for visit ([facility]) Z39.2 2. Blood pressure check Z01.30 Patient [...] of: Nolan Cortes DO documented in this encounterSt. Luke's [id number] History of Present illness Narrative* Grace Arita LPN - 06/07/2025 9:40 AM EDT Reason for Appointment: Patient ID: Charlene Purvis is a 34 y.o. female who presents for Blood Pressure Check Patient presents today for Post Follow Up appointment. 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 ([facility]) 04/18/2023 Exposure to cat feces 04/18/2023 Gestational diabetes ([facility]) 04/18/2023 Nausea 04/18/2023 History of delivery 02/24/2023 Resolved Ambulatory Problems Diagnosis Date Noted No Resolved Ambulatory Problems Past Medical History: Diagnosis Date Chronic hypertension affecting ([facility]) Exposure to cat feces, sequela Former smoker Herpes exposure History of miscarriage Morbid obesity with BMI of 40.0-44.9, adult ([facility]) HISTORY PAST MEDICAL HISTORY SOCIAL HISTORY Past Medical History: Diagnosis Date Chronic hypertension affecting ([facility]) Exposure to cat feces, sequela Former smoker Gestational diabetes ([facility]) Herpes exposure History of miscarriage Morbid [...] nursing note reviewed. Exam conducted with a noise tester present. Vitals: Estimated body mass index is 49.34 kg/m as calculated from the following: Height as of 09/09/23: 5' 7 . Weight as of this encounter: 315 lb. BP: 158/88 Patient's last menstrual period was 09/17/2024. ASSESSMENT & PLAN ICD-10-CM 1. Throbbing headache R51.9 2. Encounter for visit ([facility]) Z39.2 Pt presents with a throbbing headache- pt being sent to [facility] for observation pt delivered 06/03/25. Pt to continue labetalol. Pt to return in one week for BP check and headache check. Documented by Grace Arita LPN on behalf of: Nolan Cortes DO documented in this encounterSt. Luke's [id number] History of Present illness Narrative* Kareem Hall APRN-NURSE INFORMATICIST - 06/02/2025 9:30 AM EDT REASON FOR OFFICE VISIT: Video Visit via Real-time Synchronous Audiovisual Provider Location: [facility]- MEDICINE AT [address] [id number] Patient Location: Patient's home Video [...] that there are some limitations compared to [id number] evaluations. The patient consented to the presence [...] pain. +FM. She is being followed at [facility] due to GDMA2. States she is following [...] 10/27/2018 Performed by Vince Ardon DO at [facility] SKIN SURGERY mole removed from neck ALLERGIES: [...] TSH 0.495 01/31/2023 No results found for: [id number] Lab Results Component Value Date CREATININE 0.49 [...] and Type 2 diabetes were reviewed. Continue [facility] Recommended carbohydrate allocation ranges: 30-45 g for [...] by e-mail to: or by fax to: [phone] TIME OF CONSULTATION: 15 minutes with the patient, >50% in discussion and counseling, coordination of care which was [id number], review of records and communication back to referring provider. FRACISCO Trejo 06/02/25 0942 documented in this encounterHighland District Hospital07-22-2025 History of Present illness Narrative* JOANNE Hernandez - 05/31/2025 10:50 AM EDT [...] Noted Benign essential hypertension in obstetric context ([facility]) 04/18/2023 Exposure to cat feces 04/18/2023 Gestational diabetes ([facility]) 04/18/2023 Nausea 04/18/2023 History of delivery 02/24/2023 Resolved Ambulatory Problems Diagnosis Date Noted No Resolved Ambulatory Problems Past Medical History: Diagnosis Date Chronic hypertension affecting ([facility]) Exposure to cat feces, sequela Former smoker Herpes exposure History of miscarriage Morbid obesity with BMI of 40.0-44.9, adult ([facility]) HISTORY PAST MEDICAL HISTORY SOCIAL HISTORY Past Medical History: Diagnosis Date Chronic hypertension affecting ([facility]) Exposure to cat feces, sequela Former smoker Gestational diabetes ([facility]) Herpes exposure History of miscarriage Morbid [...] ASSESSMENT & PLAN ICD-10-CM 1. Third trimester ([facility]) Z34.93 POCT urinalysis dipstick manually resulted CULTURE, GROUP B STREP WITH SUSCEPTIBLITY CULTURE, GROUP B STREP WITH SUSCEPTIBLITY 2. 36 weeks gestation of ([facility]) Z3A.36 Return OB: Patient presents today [...] behalf of: JOANNE Hernandez documented in this encounterSt. Luke's [id number] History of Present illness Narrative* JOANNE Hernandez - 05/24/2025 8:40 AM EDT [...] Noted Benign essential hypertension in obstetric context ([facility]) 04/18/2023 Exposure to cat feces 04/18/2023 Gestational diabetes ([facility]) 04/18/2023 Nausea 04/18/2023 History of delivery 02/24/2023 Resolved Ambulatory Problems Diagnosis Date Noted No Resolved Ambulatory Problems Past Medical History: Diagnosis Date Chronic hypertension affecting ([facility]) Exposure to cat feces, sequela Former smoker Herpes exposure History of miscarriage Morbid obesity with BMI of 40.0-44.9, adult ([facility]) HISTORY PAST MEDICAL HISTORY SOCIAL HISTORY Past Medical History: Diagnosis Date Chronic hypertension affecting ([facility]) Exposure to cat feces, sequela Former smoker Gestational diabetes ([facility]) Herpes exposure History of miscarriage Morbid [...] ASSESSMENT & PLAN ICD-10-CM 1. Third trimester ([facility]) Z34.93 POCT urinalysis dipstick manually resulted 2. 35 weeks gestation of ([facility]) Z3A.35 3. induced hypertension, antepartum ([facility]) O13.9 CANCELED: Creatinine CANCELED: Protein, urine, [...] behalf of: JOANNE Hernandez documented in this encounterSt. Luke's [id number] Miscellaneous Notes* Telephone Encounter - Rufina Hurd CMA - 05/24/2025 8:37 AM EDT CAMP MANAGER CALLED PATIENT. NO ANSWER. LEFT ASKING PATIENT TO EMAIL US HER BLOOD GLUCOSE LOGS SO THATTHEY CAN BE REVIEWED BY OUR DIABETES TEAM. documented in this encounterHighland District Hospital07-15-2025 Telephone encounter Note* Telephone Encounter - Rufina Hurd CMA - 05/24/2025 8:37 AM EDT CAMP MANAGER CALLED PATIENT. NO ANSWER. LEFT VM ASKING PATIENT TO EMAIL US HER BLOOD GLUCOSE LOGS SO THATTHEY CAN BE REVIEWED BY OUR DIABETES TEAM. [facility]07-08-2025 History of Present illness Narrative* Grace Arita LPN - 05/17/2025 11:40 AM EDT Reason for [...] Noted Benign essential hypertension in obstetric context ([facility]) 04/18/2023 Exposure to cat feces 04/18/2023 Gestational diabetes ([facility]) 04/18/2023 Nausea 04/18/2023 History of delivery 02/24/2023 Resolved Ambulatory Problems Diagnosis Date Noted No Resolved Ambulatory Problems Past Medical History: Diagnosis Date Chronic hypertension affecting ([facility]) Exposure to cat feces, sequela Former smoker Herpes exposure History of miscarriage Morbid obesity with BMI of 40.0-44.9, adult ([facility]) HISTORY PAST MEDICAL HISTORY SOCIAL HISTORY Past Medical History: Diagnosis Date Chronic hypertension affecting ([facility]) Exposure to cat feces, sequela Former smoker Gestational diabetes ([facility]) Herpes exposure History of miscarriage Morbid [...] nursing note reviewed. Exam conducted with a noise tester present. Vitals: Estimated body mass index is 47.58 kg/m as calculated from the following: Height as of 09/09/23: 5' 7 . Weight as of this encounter: 303 lb 12.8 oz. BP: 126/78 Patient's last menstrual period was 09/17/2024. ASSESSMENT & PLAN ICD-10-CM 1. Third trimester ([facility]) Z34.93 2. 34 weeks gestation of ([facility]) Z3A.34 3. Gestational diabetes mellitus (GDM), antepartum, gestational diabetes method of control unspecified ([facility]) O24.419 Return OB: Patient presents today [...] of: Nolan Cortes DO documented in this encounterSt. Luke's [id number] History of Present illness Narrative* Blank Albrecht NP - 05/02/2025 10:50 AM EDT [...] Noted Benign essential hypertension in obstetric context ([facility]) 04/18/2023 Exposure to cat feces 04/18/2023 Gestational diabetes ([facility]) 04/18/2023 Nausea 04/18/2023 History of delivery 02/24/2023 Resolved Ambulatory Problems Diagnosis Date Noted No Resolved Ambulatory Problems Past Medical History: Diagnosis Date Chronic hypertension affecting ([facility]) Exposure to cat feces, sequela Former smoker Herpes exposure History of miscarriage Morbid obesity with BMI of 40.0-44.9, adult ([facility]) HISTORY PAST MEDICAL HISTORY SOCIAL HISTORY Past Medical History: Diagnosis Date Chronic hypertension affecting ([facility]) Exposure to cat feces, sequela Former smoker Gestational diabetes ([facility]) Herpes exposure History of miscarriage Morbid [...] nursing note reviewed. Exam conducted with a noise tester present. Vitals: Estimated body mass index is 47.16 kg/m as calculated from the following: Height as of 09/09/23: 5' 7 . Weight as of this encounter: 301 lb 1.9 oz. BP: 130/82 Patient's last menstrual period was 09/17/2024. ASSESSMENT & PLAN ICD-10-CM 1. 32 weeks gestation of ([facility]) Z3A.32 POCT urinalysis dipstick manually resulted 2. Third trimester ([facility]) Z34.93 POCT urinalysis dipstick manually resulted [...] She is sending her glucose logs to [facility] for review. She has continued with NST / BPP. Orders Placed This Encounter Procedures POCT urinalysis dipstick manually resulted Follow Up: Patient is to return to office in 2 week for routine OB appointment. Documented by Blank Albrecht NP on behalf of: Blank Albrecht NP documented in this encounterSt. Luke's [id number] Miscellaneous Notes* Telephone Encounter - Rufina Hurd CMA - 04/29/2025 9:31 AM EDT CAMP MANAGER CALLED THE PATIENT. NO ANSWER. LEFT VM ASKING THE PATIENT TO GIVE US A CALL TO SCHEDULE HER 4 WEEK FOLLOW UP APPOINTMENT AT THE REQUEST OF HER PROVIDER. LEFT OUR NUMBER AND INSTRUCTED HER TO SELECT OPTION 3 TO REACH ONE OF OUR SCHEDULERS. documented in this encounterUK HealthcareKids Calendar06-20-2025 Telephone encounter Note* Telephone Encounter - Rufina Hurd CMA - 04/29/2025 9:31 AM EDT CAMP MANAGER CALLED THE PATIENT. NO ANSWER. LEFT VM ASKING THE PATIENT TO GIVE US A CALL TO SCHEDULE HER 4 WEEK FOLLOW UP APPOINTMENT AT THE REQUEST OF HER PROVIDER. LEFT OUR NUMBER AND INSTRUCTED HER TO SELECT OPTION 3 TO REACH ONE OF OUR SCHEDULERS. 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 PAST OBSTETRICAL HISTORY: OB History 3 Para 1 Term 1 AB 1 Living 1 SAB 1 IAB Ectopic Multiple Live Births 1 SURGICAL HISTORY: Past Surgical History: Procedure Laterality Date ELBOW SURGERY Right LAPAROSCOPIC CHOLECYSTECTOMY N/A 10/27/2018 Performed by iVnce Ardon DO at [facility] SKIN SURGERY mole removed from neck ALLERGIES: [...] TSH 0.495 01/31/2023 No components found for: [facility] Lab Results Component Value Date CREATININE 0.49 [...] Delivery recommendations : - Recommend delivery at [id number] - reviewed with patient - Discuss delivery [...] values to us weekly by e-mail to: [email or web address] or by fax to: [phone] Kenya Acosta PA-C Maternal- Medicine Office phone: [phone] Kenya Acosta PA-C 04/19/25 1051 documented in this encounterHighland District Hospital06-10-2025 Miscellaneous Notes* Telephone Encounter - Rufina Hurd CMA - 04/19/2025 8:44 AM EDT CAMP MANAGER CALLED PATIENT. NO ANSWER. LEFT VM FOR PATIENT TO EMAIL US HER BLOOD GLUCOSE LOG FOR HER UPCOMING APPOINTMENT WITH KENYA AT 10:30 AM documented in this encounterHighland District Hospital06-10-2025 Telephone encounter Note* Telephone Encounter - Rufina Hurd CMA - 04/19/2025 8:44 AM EDT CAMP MANAGER CALLED PATIENT. NO ANSWER. LEFT VM FOR PATIENT TO EMAIL US HER BLOOD GLUCOSE LOG FOR HER UPCOMING APPOINTMENT WITH KENYA AT 10:30 AM [facility]06-09-2025 History of Present illness Narrative* Blank Albrecht NP - 04/18/2025 1:00 PM EDT [...] Morbid obesity with BMI of 40.0-44.9, adult ([facility]) HISTORY PAST MEDICAL HISTORY SOCIAL HISTORY Past Medical History: Diagnosis Date Chronic hypertension affecting Exposure to cat feces, sequela Former smoker Gestational diabetes Herpes exposure History of miscarriage Morbid obesity with BMI of 40.0-44.9, adult ([facility]) Social History Tobacco Use Smoking status: [...] nursing note reviewed. Exam conducted with a noise tester present. Vitals: Estimated body mass index is [...] and reports they have been good and [facility] continues to monitor glucose closely and continues with the Metformin. Orders Placed This Encounter Procedures POCT urinalysis dipstick manually resulted Follow Up: Patient is to return to office in 2 week for routine OB appointment. Documented by Blank Albrecht NP on behalf of: Nolan Cortes DO documented in this encounterSt. Luke's [id number] History of Present illness Narrative* Grace Arita LPN - 04/05/2025 1:50 PM [...] Morbid obesity with BMI of 40.0-44.9, adult ([facility]) HISTORY PAST MEDICAL HISTORY SOCIAL HISTORY Past Medical History: Diagnosis Date Chronic hypertension affecting Exposure to cat feces, sequela Former smoker Gestational diabetes Herpes exposure History of miscarriage Morbid obesity with BMI of 40.0-44.9, adult ([facility]) Social History Tobacco Use Smoking status: [...] nursing note reviewed. Exam conducted with a noise tester present. Vitals: Estimated body mass index is [...] of: Nolan Cortes DO documented in this encounterSt. Luke's [id number] History of Present illness Narrative* Kareem Hall APRN-NURSE INFORMATICIST - 03/23/2025 10:30 AM EDT REASON FOR OFFICE VISIT: Video Visit via Real-time Synchronous Audiovisual Provider Location: [facility]- MEDICINE AT [address] [id number] Patient Location: Patient's home Video Visit Consent [...] that there are some limitations compared to [id number] evaluations. The patient consented to the presence [...] chest pain. She is being followed at [facility] due to GDMA2. States she is following [...] 10/27/2018 Performed by Vince Ardon DO at [facility] SKIN SURGERY mole removed from neck ALLERGIES: No Known Allergies CURRENT MEDICATIONS: Current Outpatient Medications: aspirin 81 mg chewable tablet, Chew 1 tablet (81 mg total) and swallow in the morning., Disp: , Rfl: blood sugar diagnostic (glucose blood) strip, 1 strip by other route as needed for high blood sugar. ReliOn test strips, Disp: , Rfl: blood-glucose meter (RELION MICRO GLUCOSE MONITOR) [facility], by miscellaneous route., Disp: , Rfl: lancets [...] by mouth in the morning., Disp:, Rfl: progesterone (PROMETRIUM) 200 mg capsule, Place 200 mg Inside vagina every night until 36 weeks. (Patient not taking: Reported on 03/08/2025), Disp: 90 capsule, Rfl: 3 LABS: Lab Results Component Value Date CREATININE 0.49 08/25/2021 Lab Results Component Value Date TSH 0.495 01/31/2023 No results found for: [id number] Lab Results Component Value Date CREATININE 0.49 [...] on the verge of being elevated after meals.Patient is incorporating a lot of activity to [...] 20% of the blood glucose values in oneweek are out of range, or BG values are repeatedly elevated a specific time of day; and meal plan or activity cannot be modified to correct elevated blood glucose. Oral vs. SQ treatment Discussed oral hyperglycemic agent Metformin. Explained this medication does cross the placenta andreach the baby. Little research has been done on half-way effects of Metformin exposure to the fetus. [...] guide sheet for use of an insulin penand declined. She used insulin with her last [...] values to us weekly by e-mail to: [email or web address] or by fax to: [phone] TIME OF CONSULTATION: 25 minutes with the patient, >50% in discussion and counseling, coordination of care which was [id number], review of records and communication back to referring provider. FRACISCO Trejo 03/23/25 1058 documented in this [facility]05-14-2025 Miscellaneous Notes* Telephone Encounter - Rufina Hurd CMA - 03/23/2025 8:54 AM EDT CAMP MANAGER CALLED PATIENT. NO ANSWER. LEFT VM FOR PATIENT TO EMAIL US HER BLOOD GLUCOSE LOG SO THAT WE WILL HAVE IT FOR HER APPOINTMENT TODAY. documented in this [facility]05-14-2025 Telephone encounter Note* Telephone Encounter - Rufina Hurd CMA - 03/23/2025 8:54 AM EDT CAMP MANAGER CALLED PATIENT. NO ANSWER. LEFT VM FOR PATIENT TO EMAIL US HER BLOOD GLUCOSE LOG SO THAT WE WILL HAVE IT FOR HER APPOINTMENT TODAY. [facility]05-07-2025 Miscellaneous Notes* Telephone Encounter - Violet Lopez RN - 03/16/2025 11:29 AM EDTSummary: M Blood Glucose Log Called. No answer. Message left requesting more FBS numbers from this week as noted recently started Metformin this past Friday03/11/25. documented in this encounterCentral Vermont Medical CenterSEEC [facility]05-07-2025 Telephone encounter Note* Telephone Encounter - Violet Lopez RN - 03/16/2025 11:29 AM EDTSummary: M Blood Glucose Log Called. No answer. Message left requesting more FBS numbers from this week as noted recently started Metformin this past Friday03/11/25. Do It In Person Work Phone: [phone]) 602-818205-05-2025 History of Present illness Narrative* Carole Maxwell LPN - 03/14/2025 1:50 PM EDT Reason for Appointment: Patient [...] Morbid obesity with BMI of 40.0-44.9, adult ([facility]) HISTORY PAST MEDICAL HISTORY SOCIAL HISTORY Past Medical History: Diagnosis Date Chronic hypertension affecting Exposure to cat feces, sequela Former smoker Gestational diabetes Herpes exposure History of miscarriage Morbid obesity with BMI of 40.0-44.9, adult ([facility]) Social History Tobacco Use Smoking status: [...] nursing note reviewed. Exam conducted with a noise tester present. Vitals: Estimated body mass index is [...] of: Nolan Cortes DO documented in this encounterSt. Luke's [id number] History of Present illness Narrative* Kenya Acosta PA-C - 03/08/2025 1:00 PM EDT Maternal- Medicine Consultation HISTORY OF PRESENT ILLNESS: Charlene Purvis is a 34 y.o. female at 24w4d due on Estimated Date of Delivery: 06/24/25 complicated by GDMA with h/o GDMA2, h/o PTD. Patient is feeling well today. She denies contractions, vaginal bleeding, leaking fluid. She appreciates movement. Patient denies headache, visual symptoms, right upper abdominal pain, increasein edema, SOB, chest pain. 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 PAST OBSTETRICAL HISTORY: OB History 3 Para 1 Term 1 AB 1 Living 1 SAB 1 IAB Ectopic Multiple Live Births 1 SURGICAL HISTORY: Past Surgical History: Procedure Laterality Date ELBOW SURGERY Right LAPAROSCOPIC CHOLECYSTECTOMY N/A 10/27/2018 Performed by Vince Ardon DO at [facility] SKIN SURGERY mole removed from neck ALLERGIES: No Known Allergies CURRENT MEDICATIONS: Current Outpatient Medications: aspirin 81 mg chewable tablet, Chew 1 tablet (81 mg total) and swallow in the morning., Disp: , Rfl: blood sugar diagnostic (glucose blood) strip, 1 strip by other route as needed for high blood sugar. ReliOn test strips, Disp: , Rfl: blood-glucose meter (RELION MICRO GLUCOSE MONITOR) mis, by miscellaneous route., Disp: , Rfl: glyBURIDE (DIABETA) 2.5 mg tablet, Take 1.5 tablets (3.75 mg total) by mouth once daily at bedtime.Pt takes 2.5 mg at bedtime (Patient not taking: Reported on 04/22/2023), Disp: 90 tablet, Rfl: 3 labetaloL (NORMODYNE) 100 mg tablet, Take 100 mg by mouth 2 (two) times a day. (Patient not taking:Reported on 02/24/2023), Disp: , Rfl: lancets (LANCETS,ULTRA THIN) [facility], by miscellaneous route. Ultra Thin, Disp: , [...] TSH 0.495 01/31/2023 No components found for: [facility] Lab Results Component Value Date CREATININE 0.49 [...] bleeding, and vaginaldischarge PHYSICAL EXAMINATION: Gen: NAD Abdomen: Gravid, non tender, +FHTs DISCUSSION Gestational diabetes is a is a state of carbohydrate intolerance with subsequently insulin resistance and hyperglycemia. This is a malfunction or dysfunction of glucose sensors in the liver with inappropriate release of glucose followed by hyperinsulinemia followed by normal insulin secretion and th en relatively deficiency in insulin secretion resulting in [...] to offspring from poor maternal glycemic control includ e: obesity, cardiovascular disease, impaired glucose tolerance and [...] likely to fail compared to insulin. terminal superintendent data on children whose mothers took oral hypoglycemic agents while is limited. Medication is typically initiated when >20-30% of the blood glucose values in one week are outof range. Risks and side effects of both [...] metformin 500mg qhs x 1 week, then increaseto 500mg BID thereafter - Continue aspirin 81mg once daily - Labs - A1c: per outside records, 5.5 on 11/27/24 - Baseline preeclampsia labs: CMP, Plts, urine P/C ratio - low risk cell free dna - Anatomy survey with [facility] - please contact us if you [...] Delivery recommendations : - Recommend delivery at [id number] - reviewed with patient - Discuss delivery [...] by e-mail to: or by fax to: [phone] Kenya Acosta PA-C Maternal- Medicine Office phone: [phone] Kenya Acosta PA-C 03/08/251644 * Rufina Hurd CMA - 03/08/2025 1:00 PM EDT Headache/epigastric pain/blurry vision/swelling? no Cramping/contractions? no Abnormal vaginal discharge? no Spotting/vaginal bleeding? Loss or gush of fluid like your water may have broken? no Do you have cats at home? yes Do you change the litter box (reason: risk of toxoplasmosis)? no Genetic testing done this here or other office? yes/low risk/ male Have you been seen here at [facility] in a previous ? Yes/with daughter Recent ER visits or hospitalizations? no Bring blood sugar log or meter with you today? (Please bring them with you for every visit at [facility]) yes Flu vaccine (Sep-January)? Any concerns that you would like me to mention to the provider today? [facility] Miscellaneous Notes* Medical Student - Mariana Martínez - 03/08/2025 1:00 PM EDT Disclaimer: This note is intended for educational [...] the legal medical record. documented in this [facility]High[facility]04-29-[facility]25 Progress note* Medical Student - Mariana Martínez - 03/08/2025 1:00 PM EDT Disclaimer: This note is intended for educational [...] a part of the legal medical record. [facility]04-29-[facility] Miscellaneous Notes* Telephone Encounter - Rufina Hurd CMA - 03/08/2025 9:39 AM EDT Dry Cleaning Machine Operator Helper called patient. No answer. Left voicemail for the patient to email us her blood glucose logsfor her upcoming appointment today with Kenya Acosta. Also stated if she had any questions she could give us a call at [phone]. documented in this encounterHigh[facility]04-29-2025 Telephone encounter Note* Telephone Encounter - Rufina Hurd CMA - 03/08/2025 9:39 AM EDT Dry Cleaning Machine Operator Helper called patient. No answer. Left voicemail for the patient to email us her blood glucose logsfor her upcoming appointment today with Kenya Acosta. Also stated if she had any questions she could give us a call at [phone]. [facility]04-[facility] Miscellaneous Notes* Telephone Encounter - Shima Renee RN - 03/04/2025 8:31 AM EDT Patient returned call, discussed all but 1 fasting is elevated which meets criteria for a medication start appointment. Patient states she was on insulin with last and expected this to happen again. Transferred to scheduling. documented in this encounterHigh[facility]04-25-2025 Telephone encounter Note* Telephone Encounter - Shima Renee RN - 03/04/2025 8:31 AM EDT Patient returned call, discussed all but 1 fasting is elevated which meets criteria for a medication start appointment. Patient states she was on insulin with last and expected this to happen again. Transferred to scheduling. [facility]04-23-[facility] Miscellaneous Notes* Telephone Encounter - Shima Renee RN - 03/02/2025 10:15 AM EDT Called and left voicemail regarding blood sugar log with 6 fasting elevations. Notified patient this does meet criteria to come in and speak to a provider regarding medication start. Number for scheduling provided. Encouraged patient to call diabetes line with any questions. documented in this encounterHigh[facility]04-23-2025 Telephone encounter Note* Telephone Encounter - Shima Renee RN - 03/02/2025 10:15 AM EDT Called and left voicemail regarding blood sugar log with 6 fasting elevations. Notified patient this does meet criteria to come in and speak to a provider regarding medication start. Number for scheduling provided. Encouraged patient to call diabetes line with any questions. [facility]04-17-2025 Miscellaneous Notes* Telephone Encounter - JHONNY Tripathi - 02/24/2025 9:30 AM EDT Called regarding blood sugar and food logs from 02/21/2025-02/20/2025. All her fasting blood sugars are elevated. Asked her to return my call at [phone]. Charlene called back. Currently doing peanut butter [...] 2-3 hours of sleep at a time. Continueto send in blood sugars weekly. documented in this encounterHigh[facility] Hospital04-17-2025 Telephone encounter Note* Telephone Encounter - JHONNY Tripathi - 02/24/2025 9:30 AM EDT Called regarding blood sugar and food logs from 02/21/2025-02/20/2025. All her fasting blood sugars are elevated. Asked her to return my call at [phone]. Charlene called back. Currently doing peanut butter [...] 2-3 hours of sleep at a time. Continueto send in blood sugars weekly. [employer] Work Phone: 1(781) 944-672104-14-2025 History of Present illness Narrative* Carole Maxwell, NUCLEAR TEST TECHNICIAN - 02/21/2025 1:20 PM EDT Reason for Appointment: Patient ID: [...] Morbid obesity with BMI of 40.0-44.9, adult ([facility]) HISTORY PAST MEDICAL HISTORY SOCIAL HISTORY Past Medical History: Diagnosis Date Chronic hypertension affecting Exposure to cat feces, sequela Former smoker Gestational diabetes Herpes exposure History of miscarriage Morbid obesity with BMI of 40.0-44.9, adult ([facility]) Social History Tobacco Use Smoking status: [...] nursing note reviewed. Exam conducted with a noise tester present. Vitals: Estimated body mass index is [...] of: Nolan Cortes DO documented in this encounterSt. Luke's [id number] Group counseling note* Group Note - Alexandria Robert RD - 02/16/2025 9:30 AM EDT Patient: Charlene Purvis Date: 02/16/2025 Vitals: 02/16/25 [...] Face to face time was 75 minutes. [employer] Work Phone: [phone]) 386-823604-09-2025 Miscellaneous Notes* Group Note - Alexandria Robert RD - 02/16/2025 9:30 AM EDT Patient: Charlene Purvis Date: 02/16/2025 Vitals: 02/16/25 [...] time was 75 minutes. documented in this encounterHighland [facility] Hospital03-31-2025 History of Present illness Narrative* Sakshi Lemus RN - 02/07/2025 1:19 PM EDT PAPER CHART ABSTRACTED FOR DIABETIC ED AT [facility]. documented in this encounterHighland [facility] Hospital02-18-2025 History of Present illness Narrative* Grace Arita LPN - 12/28/2024 1:40 PM EST Reason for Appointment: Patient ID: Charlene Purvis [...] Morbid obesity with BMI of 40.0-44.9, adult ([facility]) HISTORY PAST MEDICAL HISTORY SOCIAL HISTORY Past Medical History: Diagnosis Date Chronic hypertension affecting Exposure to cat feces, sequela Former smoker Gestational diabetes Herpes exposure History of miscarriage Morbid obesity with BMI of 40.0-44.9, adult ([facility]) Social History Tobacco Use Smoking status: [...] nursing note reviewed. Exam conducted with a noise tester present. Vitals: Estimated body mass index is [...] or undercooked meat, and stay away from [facility]. Patient has been consulted regarding any further do's and don'tsof . Patient voiced understanding and all questions and concerns were answered. Orders Placed This Encounter Procedures POCT urinalysis dipstick manually resulted Follow Up: Patient is to return in 4 weeks for routine OB appointment. Documented by Grace Arita LPN on behalf of: Nolan Cortes DO documented in this encounterSt. Luke's [id number] History of Present illness Narrative* Danay Ortega LPN - 11/26/2024 9:00 AM EST Reason for Appointment: Patient ID: Charlene Purvis is a 34 y.o. female who presents for Amenorrhea Patient presents today for a Nurse OB Intake appointment. Patient is 10w0d with a Estimated Date ofDelivery: 06/24/25 OB History Para Term AB Living [...] Morbid obesity with BMI of 40.0-44.9, adult ([facility]) Family History Problem Relation Name Age [...] drink 6-8 glasses of water a day, eatno raw or undercooked meat, and stay away from [facility]. Patient has also been advised to not change litter boxes and eat 6 small meals a day. Patient has been consulted regarding the do's and don'ts ofpregnancy. Patient was given labs and all questions [...] by: Danay Ortega LPN [facility]* Diagnosis Missed menses , unspecified gestational age [...] for diabetes education [facility]* Diagnosis Second trimester state, incidental 22 weeks gestation of documented in this encounter [facility]* Diagnosis Gestational diabetes mellitus (GDM) in second trimester controlled on oral hypoglycemic drug- Primary documented in [facility]* Diagnosis Second trimester state, incidental 25 weeks gestation of documented in this encounter [facility]* Diagnosis Gestational diabetes mellitus (GDM) in second trimester controlled on oral hypoglycemic drug documented [facility]* Diagnosis Third trimester state, incidental 28 weeks gestation of Gestational diabetes mellitus (GDM), antepartum, gestational diabetes method of control unspecified H/O: hypertension Personal history of other diseases of circulatory system documented in this encounter [facility]* Diagnosis 30 weeks gestation of Third trimester state, incidental documented in this encounter [facility]* Diagnosis Gestational diabetes mellitus (GDM) in second trimester controlled on oral hypoglycemic drug- Primary [facility]* Diagnosis 32 weeks gestation of (HHS-HCC) Third trimester (HHS-HCC) state, incidental documented in this encounter [facility]* Diagnosis Third trimester (HHS-HCC) state, incidental 34 weeks gestation of (HHS-HCC) Gestational diabetes mellitus (GDM), antepartum, gestational diabetes method of control unspecified(HHS-HCC) documented in this encounter [facility]* Diagnosis Third trimester (HHS-HCC) state, incidental 35 weeks gestation of (HHS-HCC) induced hypertension, antepartum (HHS-HCC) Transient hypertension of , antepartum documented in this encounter [facility]* Diagnosis Third trimester (HHS-HCC) state, incidental 36 weeks gestation of ([facility] documented in this encounter [facility]* Diagnosis Gestational diabetes mellitus (GDM) in third trimester controlled on oral hypoglycemic drug- Primary documented [facility]* Diagnosis Throbbing headache Headache Encounter for visit ([facility]) documented in this encounter [facility]* Diagnosis Encounter for visit ([facility]) Blood pressure check Screening for hypertension documented in this encounter [facility]* Diagnosis Blood pressure check Screening for hypertension documented in this encounter [facility]* Diagnosis BP check Screening for hypertension documented in this encounter [facility]* Diagnosis Benign essential hypertension in obstetric context, antepartum ([facility])- Primary documented in this encounter [facility]* Diagnosis 6 weeks follow-up ([facility]) Spontaneous vaginal delivery ([facility]) Normal delivery documented in this encounter [facility] HealthcareInstructionsNot on filedocumented in this encounterProSpringhill Medical Center Health SystemInstructionsNot on filedocumented in this encounterProSpringhill Medical Center Health SystemInstructionsNot on filedocumented in this encounterProSpringhill Medical Center Health SystemInstructionsNot on filedocumented in this encounterS[facility] Summary Purpose Family History No Family History Records FoundNo Family History Records FoundNo Family History Records FoundNo Family History Records Found Advance Directives No Advanced Directives Records FoundNo Advanced Directives Records FoundNo Advanced Directives Records FoundNo Advanced Directives Records Found Additional Source Comments INFORMATION SOURCE (unrecogn ized section and content) DATE CREATED AUTHOR 04/18/2023 [facility] DATE CREATED AUTHOR AUTHOR'S ORGANIZ ATION 06/03/2025 [facility] DATE CREATED AUTHOR AUTHOR'S ORGANIZ ATION 06/28/2025 [facility] DATE CREATED AUTHOR AUTHOR'S ORGANIZ ATION 07/16/2025 [facility] EPIC Reason for Visit (unrecogniz ed section and content) ReasonCommentsAmenorrheaReasonCommentsRoutine VisitReasonComments Gestational DiabetesSpecialtyDiagnoses / ProceduresReferred By ContactReferred To ContactMaternal and Medicine Diagnoses Encounter for diabetes education Nolan Cortes R, DO [address] [place] [address] [place] [address] Phone: tel: fax: Maternal- Medicine at [facility] [address] [place] [address] Phone: tel: fax: Referral IDStatusReasonStart DateExpiration DateVisits RequestedVisits [id number] [facility] Required /[id number] Start-GDMReasonCommentsBlood Pressure CheckReasonCommentsPostpartum Follow-upBlood Pressure CheckReasonComments CarePt present today for a 6 week post visit. Pt delivered on 06/03/2025 vaginally. Care Teams (unrecognized sec tion and content) Team MemberRelationshipSpecialtyStart DateEnd Date Melony Azul MD PCP - GeneralPediatrics06/23/18Team MemberRelationshipSpecialtyStart DateEnd Date Melony Azul MD PCP - GeneralPediatrics06/23/18Team MemberRelationshipSpecialtyStart DateEnd Date Melony Azul MD PCP - GeneralPediatrics18Team MemberRelationshipSpecialtyStart DateEnd Date Melony Azul MD PCP - GeneralPediatrics818Team MemberRelationshipSpecialtyStart DateEnd Date Melony Azul MD PCP - GeneralPediatrics8/1418Team MemberRelationshipSpecialtyStart DateEnd Date Melony Azul MD PCP - GeneralPediatrics06/23/18Te MemberRelationshipSpecialtyStart DateEnd Date Melony Azul MD PCP - GeneralPediatrics06/23/18 FOR RECORDS PERTAINING TO PATIENTS WHO ARE [...] BE BASED ON THE PRIMARY CLINICAL RECORDS. [facility] [facility]. provides no warranty or guarantee of the accuracy or completeness of information in this document.
--- NOTE | 2025-09-02 16:03 | PC.NURSE ---
Charlene, 4yo daughter and son Dain arrive for feeding assessment post oral revision. Charlene states with stretches and suck exercises being done daily, baby has improved with feeding. Notable for mom is feeds easier, finished in 20 minutes. Strength of suck is stronger, and less spitting after feeds. taking 5-7 oz every 4 hours. Assessment completed with wounds showing healing. Baby tolerates stretches well, cooing and smiling. able to cup tongue well, strong suck and desire to keep gloved finger in mouth.Able to move tongue laterally left and right , upper and lower. Good seal noted as well. Infant weight 13-13 today. Mom bottle feeds and no leaking from corners of mouth. Suck , swallow and breathe more rhythmic and does not become overwhelmed with flow of bottle. Mom pleased with feeding progress. Aware to call for concerns. Family leaves without concerns voiced.
== END 2025-09-02 13:50 | disposition home or self-care (01) ==
LOC: FBCO 10:07
PROVIDERS: Visit Provider Obstetrics & Gynecology
DX: Z39.1 Encounter for care and examination of lactating mother (principal)

== ENCOUNTER 2025-09-22 12:16 | Outpatient (OUT) | payer BC, SELFPAY ==
--- OUTSIDE RECORDS SUMMARY | 2025-09-21 10:30 | XMS_ITS | Encounter Summary ---
Author Organization [facility] Address [address] [facility] [place] [address] Care Team Providers Care Motel Manager Name Role Phone Unavailable Primary Care Provider Unavailabl e Reason for Visit * ReasonCommentsWeight Management Encounter Details DateTypeDepartmentCare Team (Latest Contact Info)Jhemawwpmgp46/12/2025 10:30 AM ESTOffice Visit [facility] [address] [place] [address] Armida Albrecht, SOPHIA [address] [place] [address] PCOS (polycystic ovarian syndrome) (Primary Dx); Encounter for weight management Social History Tobacco UseTypesPacks/DayYears UsedDateSmoking Tobacco: FormerCigarettes Tobacco Cessation:Counseling Given: Not Answered Alcohol UseStandard Drinks/WeekCommentsNot Currently0 (1 standard drink = 0.6 oz pure alcohol)Rarely drink alcoholCommentsUnknownSex and Gender InformationValueDate RecordedSex Assigned at BirthNot on fileLegal SexFemale 01/22/2023 11:46 PM EDTGender IdentityNot on fileSexual OrientationNot on file documented as of this encounter Last Filed Vital Signs Vital SignReadingTime TakenCommentsBlood Iumymnto174/6409/21/2025 10:38 AM EST Pulse--Temperature--Respiratory Rate--Oxygen Saturation--Inhaled Oxygen Concentration--Glnvbk870 kg (299 lb 6.4 oz)09/21/2025 10:38 AM OXWWspliw697.2 cm (5' 7 )09/21/2025 10:38 AM ESTBody Mass Index46.8909/21/2025 10:38 AM EST documented in this encounter Progress Notes * Armida Albrecht, SOPHIA - 09/21/2025 10:30 AM EST Reason for Appointment: Patient ID: Charlene Purvis is a 34 y.o. female who presents for Weight Management Patient presents today for Weight Management Consult. MEDICATIONS Current Outpatient Medications Medication Instructions ascorbic acid (VITAMIN C) 500 mg, Daily FeroSul 325 mg, Daily with breakfast labetalol (NORMODYNE) 200 mg, Oral, 3 times daily ALLERGIES No Known Allergies PROBLEMS Active Ambulatory Problems Diagnosis Date Noted Benign essential hypertension in obstetric context ([facility]) 04/18/2023 Exposure to cat feces 04/18/2023 Gestational diabetes ([facility]) 04/18/2023 Nausea 04/18/2023 History of delivery 02/24/2023 Resolved Ambulatory Problems Diagnosis Date Noted No Resolved Ambulatory Problems Past Medical History: Diagnosis Date Chronic hypertension affecting ([facility]) Exposure to cat feces, sequela Former smoker Herpes exposure History of miscarriage Morbid obesity with BMI of 40.0-44.9, adult ([facility] HISTORY PAST MEDICAL HISTORY SOCIAL HISTORY Past Medical History: Diagnosis Date Chronic hypertension affecting ([facility]) Exposure to cat feces, sequela Former smoker Gestational diabetes ([facility]) Herpes exposure History of miscarriage Morbid obesity with BMI of 40.0-44.9, adult ([facility]) Social History Tobacco Use Smoking status: Former Current packs/day: 0.00 Types: Cigarettes Smokeless tobacco: Not on file Vaping Use Vaping status: Every Day Substance Use Topics Alcohol use: Not Currently Comment: Rarely drink alcohol Drug use: Never FAMILY HISTORY Family History Problem Relation Name Age of Onset Diabetes Mother Sravani Villasenor No Known Problems Sister No Known Problems Brother Other (mutiple gestation) Other Other (multiple gestation: family members in general) Other SURGICAL HISTORY Past Surgical History: Procedure Laterality Date CHOLECYSTECTOMY 10/2018 CT ANGIOGRAM CHEST 06/08/2025 CT ANGIOGRAM CHEST ELBOW SURGERY 1997 broken elbow NECK SURGERY to remove getachew - benign PAP SMEAR 09/11/2022 negative REVIEW OF SYSTEMS Review of Systems: Review of Systems Constitutional: Positive for fatigue and unexpected weight change. HENT: Negative. Eyes: Negative. Respiratory: Negative. Cardiovascular: [...] nursing note reviewed. Exam conducted with a oxyacetylene welder present. Vitals: Estimated body mass index is 44.48 kg/m?? as calculated from the following: Height as of 07/14/25: 5' 7 . Weight as of 07/14/25: 284 lb. BP: No LMP recorded. ASSESSMENT & PLAN ICD-10-CM 1. Encounter for weight management Z76.89 Assessment/Plan Baseline labs are obtained today and will begin Metformin at 500 mg and will recommend GLP-1 after review of lab values. Documented by Sofiya Ortez CST on behalf of: Armida Albrecht NP documented in this encounter Plan of Treatment DateTypeDepartmentCare Team (Latest Contact Info)Icuybahpnhm54/10/2025 8:30 AM ESTOffice Visit [facility] [address] [place] [address] Armida Albrecht NP [address] [facility] [facility] [address] [place] [address] NameTypePriorityAssociated DiagnosesOrder SchedulehCG, quantitative, LabRoutine PCOS (polycystic ovarian syndrome) Ordered: 11/12/2025TSHLabRoutine PCOS (polycystic ovarian syndrome) Ordered: 09/21/2025T4, freeLabRoutine PCOS (polycystic ovarian syndrome) Ordered: 09/21/2025BC and differentialLabRoutine PCOS (polycystic ovarian syndrome) Ordered: 09/21/2025Follicle stimulating hormoneLabRoutine PCOS (polycystic ovarian syndrome) Ordered: 09/21/2025Luteinizing hormoneLabRoutine PCOS (polycystic ovarian syndrome) Ordered: 09/21/2025Hemoglobin L9sBohHbxuwtn PCOS (polycystic ovarian syndrome) Ordered: 09/21/2025DHEA-sulfateLabRoutine PCOS (polycystic ovarian syndrome) Ordered: 09/21/2025DHEALabRoutine PCOS (polycystic ovarian syndrome) Expected: 09/21/2025 (Approximate), Expires: 09/21/2026omprehensive metabolic panelLabRoutine Encounter for weight management PCOS (polycystic ovarian syndrome) Ordered: 09/21/2025documented as of this encounter Procedures Procedure NamePriorityDate/TimeAssociated DiagnosisCommentsPOCT , URINE Qjydsao2209/21/2025 10:50 AM EST Encounter for weight management documented in this encounter Results * POCT , urine manually resulted (09/21/2025 10:50 AM EST)Component ValueRef RangeTest MethodAnalysis TimePerformed AtPathologist SignaturePreg Test, UrNegativeNegativeSpecimen (Source)Anatomical Location / Laterality Collection Method / VolumeCollection TimeReceived EivzCefvj56/12/2025 10:50 AM EST Narrative Authorizing ProviderResult TypeResult StatusArmida Albrecht NPPOINT OF CARE TEST ENTER/EDIT ORDERABLESFinal Result documented in this encounter Visit Diagnoses Diagnosis PCOS (polycystic ovarian syndrome)- Primary Polycystic ovaries Encounter for weight management documented in this encounter
--- OUTSIDE RECORDS SUMMARY | 2025-09-22 12:20 | XMS_ITS | Clinical Summary ---
Author Organization [facility] Address [address] [place] [address] Care Team Providers Care Returns Processor Name Role Phone Unavailable Primary Care Provider Unavailabl e Allergies No known active allergies Medications MedicationSigDispense QuantityRefillsLast FilledStart DateEnd DateStatus FeroSul 325 (65 Fe) MG tablet Take 325 mg by mouth in the morning. Take with meals.5Active ascorbic acid (Vitamin C) 500 MG ER capsule Take 500 mg by mouth DailyActive labetalol (Normodyne) 100 MG tablet Indications:Encounter for visit ([facility]),Blood pressure checkTake 2 tablets (200 mg) by mouth in the morning and 2 tablets (200 mg) in the evening and 2 tablets(200 mg) before bedtime. 180 tablet 5Active metFORMIN XR (Glucophage-XR) 500 MG 24 hr tablet Indications:Encounter for weight management,PCOS (polycystic ovarian syndrome) Take 1 tablet (500 mg) by mouth in the evening. Take with meals Do not crush, chew, or split. 30 tablet 5Active Active Problems ProblemNoted DateDiagnosed DateBenign essential hypertension in obstetric context ([facility])04/18/2023Exposure to cat feces04/18/2023estational diabetes ([facility])04/18/20236648Tlczsc33/09/2023History of /17/2023 Encounters DateTypeDepartmentCare LtozVxgpaukpzpz18/13/2025Telephone [facility] [address] [place] [address] [place] [phone] Carole Maxwell LPN 09/21/2025 10:30 AM ESTOffice Visit [facility] [address] [place] [address] Armida Albrecht NP PCOS (polycystic ovarian syndrome) (Primary Dx); Encounter for weight gstwtxsadr28/12/2025amboo flowsheet [facility] [address] [place] [address] Armida Albrecht NP 09/14/20250559Sneyvo89/23/2025Telephone [facility] [address] [place] [address] Margo Lozoya MA 07/14/2025 1:30 PM EDTPostpartum Visit [facility] [address] [place] [address] Armida Albrecht NP 6 weeks follow-up ([facility]); Spontaneous vaginal delivery ([facility])07/07/2025 1:50 PM EDTPostpartum Visit [facility] [address] [place] [address] Kristan Fish PA Benign essential hypertension in obstetric context, antepartum ([facility]) (Primary Dx)07/07/20259395Pdznkl01/22/0892Xpowws20/21/2025 10:50 AM EDTPostpartum Visit [facility] [address] [place] [address] Kristan Fish PA BP check06/23/2025 9:30 AM EDTPostpartum Visit [facility] [address] [place] [address] Armida Albrecht NP Blood pressure checkfrom Last 3 Months Family History Medical HistoryRelationNameCommentsNo Known ProblemsBrotherDiabetesMotherDee Autrymultiple gestation: family members in generalOthermutiple gestationOtherNo Known ProblemsSisterRelationNameStatusCommentsBrotherFatherAliveMotherDee Jacklyn AliveOtherSister Social History Tobacco UseTypesPacks/DayYears UsedDateSmoking Tobacco: FormerCigarettes Tobacco Cessation:Counseling Given: Not Answered Alcohol UseStandard Drinks/WeekCommentsNot Currently0 (1 standard drink = 0.6 oz pure alcohol)Rarely drink alcoholCommentsUnknownSex and Gender InformationValueDate RecordedSex Assigned at BirthNot on fileLegal SexFemale 01/22/2023 11:46 PM EDTGender IdentityNot on fileSexual OrientationNot on file Last Filed Vital Signs Vital SignReadingTime TakenCommentsBlood Cyxwubne151/6409/21/2025 10:38 AM EST Pulse--Temperature--Respiratory Rate--Oxygen Saturation--Inhaled Oxygen Concentration--Mwtxls924 kg (299 lb 6.4 oz)09/21/2025 10:38 AM VOKFgiewc580.2 cm (5' 7 )09/21/2025 10:38 AM ESTBody Mass Index46.8909/21/2025 10:38 AM EST Plan of Treatment DateTypeDepartmentCare Team (Latest Contact Info)Jhsikgiaahb66/10/2025 8:30 AM ESTOffice Visit [facility] [address] [place] [address] Armida Albrecht, SECURITY SITE SUPERVISOR [address] [facility] [place] [address] Procedures Procedure NamePriorityDate/TimeAssociated DiagnosisCommentsPOCT , URINE Myppphe7109/21/2025 10:50 AM EST Encounter for weight management from Last 3 Months Results * POCT , urine manually resulted (09/21/2025 10:50 AM EST)Component ValueRef RangeTest MethodAnalysis TimePerformed AtPathologist SignaturePreg Test, UrNegativeNegativeSpecimen (Source)Anatomical Location / Laterality Collection Method / VolumeCollection TimeReceived SqamMlhid40/12/2025 10:50 AM EST Narrative Authorizing ProviderResult TypeResult StatusArmida Albrecht NPPOINT OF CARE TEST ENTER/EDIT ORDERABLESFinal Result from Last 3 Months Insurance
--- OUTSIDE RECORDS SUMMARY | 2025-09-22 12:20 | XMS_ITS | Clinical Summary ---
Author Organization [facility] Address [address] [place] [address] Care Team Providers Care Jewelry Maker Name Role Phone Unavailable Primary Care [...] oral hypoglycemic drug03/23/2025enign essential hypertension in obstetric azqjxtr5004/18/2023Exposure to cat feces04/18/2023 Gestational ngqoxrxr91/09/5694Ngwpre19/09/2023History of delivery 02/24/2023 Encounters DateTypeDepartmentCare SzvhCyfgitcmgwp17/18/2025 1:00 PM EDTOffice Visit [facility] [address] [place] [address] Shorty Maciel MD LVH (left ventricular hypertrophy) (Primary Dx); Elevated brain natriuretic peptide (BNP) level06/27/2025Orders Only [facility] [address] [place] [address] Lia Bain MA from Last [...] and Gender Information ValueDate RecordedSex Assigned at BiqogJxvxqi30/13/2025 2:55 PM EDTLegal Sex Qxmsmh5905/09/2022 12:40 AM EDTGender QmqyxkkrAvfwxf74/13/2025 2:55 PM EDTSexual OrientationHeterosexual or Qxzcypgw55/13/2025 2:55 PM EDT Last Filed Vital Signs Vital SignReadingTime TakenCommentsBlood Kzwjjzmt925/8206/27/2025 1:05 PM EDT Bqegj968306/27/2025 1:05 PM EDTTemperature--Respiratory Rate--Oxygen Saturation 100%06/27/2025 1:05 PM EDTInhaled Oxygen Concentration--Axkdqa691 kg (284 lb) 06/27/2025 1:05 PM RHCPjfffj533.2 cm (5' 7 )06/27/2025 1:05 PM EDTBody Mass Index44.48006/27/2025 1:05 PM EDT Plan of Treatment Health MaintenanceDue DateLast DoneCommentsDepression Vekwbasef14/15/2005 Varicella Vaccines (1 of 2 - 13+ 2-dose series)2005Pap Smear2013 Adult Zvutfmu9411/24/2014HPV Vaccines (1 - 3-dose SCDM series)2019Cervical Cancer Pcyiejgvc05/15/2023HPV/Ijzyot903COVID-19 Vaccine (2024- season)2025Influenza Vaccine (#1)2025Zoster Vaccines (1 [...] Procedures Procedure NamePriorityDate/TimeAssociated DiagnosisCommentsECG 12 LEAD UNIT SOHEUEXZKQppcdlq13/18/2025 1:25 PM EDT LVH (left ventricular hypertrophy) [...] (NAIC) Type:Not on file Address: [address] [place] [id number]
--- OUTSIDE RECORDS SUMMARY | 2025-09-22 12:20 | XMS_ITS | Encounter Summary ---
Author Organization [facility] Address [address] [place] [address] Care Team Providers Care Dust Brush Assembler Name Role Phone Unavailable Primary Care Provider Unavailabl e Encounter Details DateTypeDepartmentCare Team (Latest Contact Info)Bievvyfzqab54/13/2025Telephone [facility] [address] [place] [address] Carole Maxwell LPN Social History Tobacco UseTypesPacks/DayYears UsedDateSmoking Tobacco: FormerCigarettesAlcohol UseStandard Drinks/WeekCommentsNot Currently0 (1 standard drink = 0.6 oz pure alcohol)Rarely drink alcoholCommentsUnknownSex and Gender Information ValueDate RecordedSex Assigned at BirthNot on fileLegal KwpUsciww86/15/2023 11:46 PM EDTGender IdentityNot on fileSexual OrientationNot on filedocumented as of this encounter Miscellaneous Notes * Telephone Encounter - Carole Maxwell LPN - 09/22/2025 11:00 AM EST 09/22/25 @1100am sent PA through CoverMyMeds for Ozempic. Attempted PA for Zepbound and medication was not of formulary. Will await to here on determination of Ozempic before sending prescription or trying another GLP-1 for PA. Carole Sadler LPN documented in this encounter Plan of Treatment DateTypeDepartmentCare Team (Latest Contact Info)Qfmofarpkdi53/10/2025 8:30 AM ESTOffice Visit NOM[facility] [place] [address] Armida Albrecht, SOPHIA [address] [facility] [place] [address] documented as of this encounter Visit Diagnoses Not on filedocumented in this encounter
--- OUTSIDE RECORDS SUMMARY | 2025-09-22 12:20 | XMS_ITS | Encounter Summary ---
Author Organization [facility] Address [address] [facility] [place] [place] [address] Care Team Providers Care Sales & Service Associate Name Role Phone Unavailable Primary Care Provider Unavailabl e Encounter Details DateTypeDepartmentCare Team (Latest Contact Info)Xugmefbkbqb41/12/2025amboo flowsheet [facility] [address] [place] [address] Armida Albrecht NP [address] [facility] [place] [address] Social History Tobacco UseTypesPacks/DayYears UsedDateSmoking Tobacco: FormerCigarettesAlcohol UseStandard Drinks/WeekCommentsNot Currently0 (1 standard drink = 0.6 oz pure alcohol)Rarely drink alcoholCommentsUnknownSex and Gender Information ValueDate RecordedSex Assigned at BirthNot on fileLegal TmxBlfbyn81/15/2023 11:46 PM EDTGender IdentityNot on fileSexual OrientationNot on filedocumented as of this encounter Plan of Treatment DateTypeDepartthree rivers health hospitalCare Team (Latest Contact Info)Oxlpftaahnz66/10/2025 8:30 AM ESTOffice Visit [facility] [place] [facility] [address] [place] [address] Armida Albrecht, SOPHIA [address] [facility] [place] [address] documented as of this encounter Visit Diagnoses Not on filedocumented in this encounter
--- OUTSIDE RECORDS SUMMARY | 2025-09-22 12:20 | XMS_ITS | Encounter Summary ---
Author Organization [facility] Address [address] [place] [address] Care Team Providers Care Drier Unloader Name Role Phone Unavailable Primary Care Provider Unavailabl e Encounter Details DateTypeDepartmentCare Team (Latest Contact Info)Aadkpjbfkek56/05/2025Travel Social History Tobacco UseTypesPacks/DayYears UsedDateSmoking Tobacco: FormerCigarettesAlcohol UseStandard Drinks/WeekCommentsNever0 (1 standard drink = 0.6 oz pure alcohol) CommentsNoSex and Gender InformationValueDate RecordedSex Assigned at BirthNot on fileLegal EvkSuxdpj96/15/2023 11:46 PM EDTGender IdentityNot on file Sexual OrientationNot on filedocumented as of this encounter Plan of Treatment DateTypeDepartmentCare Team (Latest Contact Info)Dqnoeynayap68/10/2025 8:30 AM ESTOffice Visit [facility] [address] [facility] [place] [address] Armida Albrecht, SOPHIA [address] [facility] [place] [address] documented as of this encounter Visit Diagnoses Not on filedocumented in this encounter
--- OUTSIDE RECORDS SUMMARY | 2025-09-22 12:20 | XMS_ITS | Encounter Summary ---
Author Organization [facility] Address [address] [place] [address] Care Team Providers Care Traffic Control Technician Name Role Phone Unavailable Primary Care Provider Unavailabl e Encounter Details DateTypeDepartmentCare Team (Latest Contact Info)Qevidolchnu46/19/2024linisync Result Encounter [facility] External Department Unsolicited Thomas Cortes DO [address] [facility] [place] [address] Social History Tobacco UseTypesPacks/DayYears UsedDateSmoking Tobacco: FormerCigarettesAlcohol UseStandard Drinks/WeekCommentsNever0 (1 standard drink = 0.6 oz pure alcohol) CommentsUnknownSex and Gender InformationValueDate RecordedSex Assigned at BirthNot on fileLegal YbfRcpdqt85/15/2023 11:46 PM EDTGender IdentityNot on fileSexual OrientationNot on filedocumented as of this encounter Plan of Treatment DateTypeDepartmentCare Team (Latest Contact Info)Xazlfgklxxs82/10/2025 8:30 AM ESTOffice Visit [facility] [address] [facility] [place] [address] Armida Albrecht, SOPHIA [address] [facility] [place] [address] documented as of this encounter Procedures Procedure NamePriorityDate/TimeAssociated DiagnosisCommentsUS PELVIS W/ UINPNNKHWPSA03/19/2024 1:16 PM EDT documented in this encounter Results * US PELVIS W/ TRANSVAGINAL (04/28/2024 1:16 PM EDT)Anatomical RegionLaterality ModalityOtherSpecimen (Source)Anatomical Location / LateralityCollection Method / VolumeCollection TimeReceived Time04/28/2024 1:16 PM EDT Narrative 04/28/2024 1:19 PM EDT [facility] ?[address] ? [place] [address] ? Ultrasound Report ? Signed ? Patient: CANDE,CHARLENE L ?MR#: [id number] ?? : 1990 ?Acct:[id number] ?? Age/Sex: 33 / F ?ADM Date: 04/27/24 ?? Loc: US ? Attending Dr: Thomas Cortes D.O. ? Ordering Physician: Thomas Cortes D.O. ?? Date of Service: 04/27/24 ?? Procedure(s): US pelvis w/ transvaginal ?? Accession Number(s): [id number] ? cc: Thomas Cortes D.O.; Physician,Non-Staff M.D. ? [facility] ? [address] ? [place] [address] ? Patient Name: ?? CHARLENE PURVIS ? MRN: [facility]:[id number] ? date: 1990 ?Sex: F ?? Assigned Patient Location: US ?? Current Patient Location: ? Accession/Order Number: [id number] ?? Exam Date: 04/27/2024 ??14:00 ?Report Date: 04/28/2024 ??13:16 ? At the request of: ?? THOMAS ??SEBASTIAN ? Procedure: ??US pelvis w/ transvaginal ? EXAM: Pelvic ultrasound ? HISTORY: . Irregular Bleeding N92.6 . ? COMPARISON: None. ? TECHNIQUE: Transabdominal and transvaginal scanning was performed ? FINDINGS: Thinning of the pelvis demonstrates a retroflexed uterus measuring ?? 8.7 x 3.6 x 5.7 cm. ? Endometrial complex measures 8 mm. ? Right ovary measured 3.5 x 2.4 x 2.8 cm. Color-flow is noted. Follicles were ?? noted. Several follicles were noted in a peripheral location. ? Left ovary measures 3.4 x 2 x 2.8 cm. Color-flow is noted. Follicles are ?? noted. ?? Several follicles are in a peripheral location. ? No fluid was noted in the cul-de-sac. ? US/US pelvis w/ transvaginal ?? IMPRESSION: ?? 1. Normal-appearing retroflexed uterus and endometrial complex. ?? 2. Several follicles in both ovaries. Several follicles were noted peripheral ?? location. Findings could be due to early cystic ovarian syndrome. Clinical ?? correlation is suggested. ? Electronically authenticated by: EMMIE ??SHAKILA ?? Date: 04/28/2024 ??13:16 ? Dictated By: ?Emmie Corley M.D. ? Signed By: ?04/28/24 1319 ? DD/ 1316 ? TD/TT: ? Floating Labor Gang Supervisor: Procedure Note Radiology, Radiologist, MD - 04/28/2024 [place] [address] Ultrasound Report Signed Patient: CHARLENE PURVIS LMR#: [id number] : 1990Acct:[id number] Age/Sex: 33 / FADM Date: 04/27/24 Loc: US Attending Dr: Thomas Cortes D.O. Ordering Physician: Thomas Cortes D.O. Date of Service: 04/27/24 Procedure(s): US pelvis w/ transvaginal Accession Number(s): [id number] cc: Thomas Cortes D.O.; Physician,Non-Staff MTomas The [address] [address] Patient Name: CHARLENE PURVIS MRN: [facility]:[id number] date: 1990 Sex: F Assigned Patient Location: US Current Patient Location: Accession/Order Number: [id number] Exam Date: 04/27/2024 14:00 Report Date: 04/28/2024 [...] M.D. Signed By:04/28/24 1319 DD/ 1316 TD/TT: Floating Labor Gang Supervisor: Authorizing ProviderResult TypeResult StatusCorey Sebastian DOCLINISYNC IMAGINGFinal Result documented in this encounter Visit Diagnoses Not on filedocumented in this encounter
--- OUTSIDE RECORDS SUMMARY | 2025-09-22 12:20 | XMS_ITS | Clinical Summary ---
Demographics Address [address] [place] [address] Mobile Phone Home Phone Email Address Email Address Preferred Language Vietnamese Marital Status Quaker Affiliation Unknown Race White Ethnic Group Not or Lati no Author Organization [facility] Address [id number] [place] [address] Support Name Relationship Address Phone Dariusz Purvis Emergency Contact [address] [place] [address] Sravani Villasenor Personal Relationship [address] [place] [address] Laura Cope Personal Relationship Unknown [phone] Care Team Providers Care Environmental Intern Name Role Phone Eli Azul MD Primary [...] trimester controlled on oral hypoglycemic drug03/23/2025History of kwactggb34/17/2023 Immunizations ImmunizationAdministration DatesNext DueRho (D) Immune Whqxwxpg76/16/2021 Family History Medical HistoryRelationNameCommentsColon cancerMaternal GrandfatherDiabetes MotherHypertensionMotherRelationNameStatusCommentsFatherAliveMaternal GrandfatherDeceasedMotherAlive Social History Tobacco UseTypesPacks/DayYears UsedDateSmoking Tobacco: Former Vaping/E-cigarettesSmokeless Tobacco: Never Tobacco Cessation:Counseling Given: Not Answered Alcohol UseStandard Drinks/WeekCommentsNot Currently0 (1 standard drink = 0.6 oz pure alcohol)rareChildcareAnswerDate CeyidltwDvtgnibpqKfsbxuy64/10/2019 EmploymentAnswerDate MtuklqqwGskntrpqjfKvvwnyv40/10/2019Hunger ScreeningAnswer Date RecordedWithin the past 12 months we worried whether our food would run out before we got money to buy more.Never True03/08/2025Within the past 12 months the food we bought just didn't last and we didn't have money to get more.Never True03/08/2025Purpose - LifeAnswerDate RecordedPurpose and direction in life Ljxabut69/11/2021CommentsNoSex and Gender InformationValueDate Recorded Sex Assigned at GpygyUplkea72/17/2023 5:56 PM EDTLegal FlcMfzcij70/06/2015 11:59 AM EDTGender KwhhsueqEvkncj50/17/2023 5:56 PM EDTSexual OrientationStraight 02/24/2023 5:56 PM EDT Last Filed Vital Signs Vital SignReadingTime TakenCommentsBlood Egdgoiwz523/6604 1:08 PM EDT Blxdr0439 1:08 PM NUDDhowwouxekn54.9 ??C (98.5 ??F)08/25/2021 8:21 PM EDTRespiratory Ewbb958308/25/2021 11:29 PM EDTOxygen Ljffzkwyzx23%08/25/2021 11:29 PM EDTInhaled Oxygen Concentration--Rapxjp314.4 kg (291 lb 12.8 oz)03/08/2025 1:08 PM XDNIfmhqu107.2 cm (5' 7 )08/25/2021 8:21 PM EDTBody Mass Index45.7 08/25/2021 8:21 PM EDT Plan of Treatment Health MaintenanceDue DateLast DoneCommentsDepression Riuzaalzy59/15/2005Tobacco Hjtmqmvzj10/15/2005DTaP,Tdap and Td Vaccines (1 - Tdap)2011Pap Smear dult BMI Yujgeenwd28Influenza Vaccine Jvkmevuff26/01/2025, 10/10/2023RSV ( or age 60+ yrs) (No Doses Required) Completed Medical Devices Not on file Insurance * Guarantor: Charlene Purvis TypeRelation to PatientDate of PhoneBilling AddressPersonal/WyxobeLqmw56/15/1993 [facility] [address] [facility] [address] [place] [address] Care Teams Team MemberRelationshipSpecialtyStart DateEnd Date Eli Azul MD PCP - GeneralPediatrics06/23/18
--- OUTSIDE RECORDS SUMMARY | 2025-09-22 12:20 | XMS_ITS | Encounter Summary ---
Author Organization [facility] Address [address] [place] [address] Care Team Providers Care Accounting Analyst Name Role Phone Unavailable Primary Care Provider Unavailabl e Encounter Details DateTypeDepartmentCare Team (Latest Contact Info)Ncaiwaphbye77/17/2025linisync Result Encounter [facility] Unsolicited Thomas Cortes DO [address] [place] [address] Social History Tobacco UseTypesPacks/DayYears UsedDateSmoking Tobacco: FormerCigarettesAlcohol UseStandard Drinks/WeekCommentsNever0 (1 standard drink = 0.6 oz pure alcohol) CommentsYesSex and Gender InformationValueDate RecordedSex Assigned at BirthNot on fileLegal YuoLjmbob73/15/2023 11:46 PM EDTGender IdentityNot on file Sexual OrientationNot on filedocumented as of this encounter Miscellaneous Notes * Result Encounter Note - Danay Ortega LPN - 11/26/2024 9:39 AM EST Order Attached to FS documented in this encounter Plan of Treatment DateTypeDepartmentCare Team (Latest Contact Info)Zwlqtgxuptd02/10/2025 8:30 AM ESTOffice Visit [facility] [address] [place] [address] Armida Albercht, PICK UP WORKER [address] [place] [address] documented as of this encounter Procedures Procedure NamePriorityDate/TimeAssociated DiagnosisCommentsUS OB TRANSVAGINAL 11/26/2024 9:35 AM EST documented in this encounter Results * US OB TRANSVAGINAL (11/26/2024 9:35 AM EST)Anatomical RegionLateralityModality OtherSpecimen (Source)Anatomical Location / LateralityCollection Method / VolumeCollection TimeReceived Time11/26/2024 9:35 AM EST Narrative 11/26/2024 9:37 AM EST [facility] ?[address] ? [place] [address] ? Ultrasound Report ? Signed ? Patient: CANDE,CHARLENE L ?MR#: [id number] ?? : 1990 ?Acct:[id number] ?? Age/Sex: 34 / F ?ADM Date: 11/26/24 ?? Loc: US ? Attending Dr: Thomas Cortes D.O. ? Ordering Physician: Thomas Cortes D.O. ?? Date of Service: 11/26/24 ?? Procedure(s): US OB transvaginal ?? Accession Number(s): [id number] ? cc: Thomas Cortes D.O.; Physician,Non-Staff M.D. ? [facility] ? [facility] ? [place] [address] ? Patient Name: ?? CHARLENE PURVIS ? MRN: [facility]:[id number] ? date: 1990 ?Sex: F ?? Assigned Patient Location: US ?? Current Patient Location: US ?? Accession/Order Number: [id number] ?? Exam Date: 11/26/2024 ??08:36 ?Report Date: 11/26/2024 ??09:35 ? At the request of: ?? THOMAS ??SEBASTIAN ? Procedure: ??US OB transvaginal ? EXAMINATION: US OB transvaginal ? HISTORY: Missed Menses ? COMPARISON: No relevant comparison available. ? FINDINGS: ? GESTATIONAL SAC: Present and normal appearing. ?? YOLK SAC: Present and normal appearing. ?? POLE: Present and normal appearing. ?? CARDIAC: Present. ? UTERUS: Normal size and appearance. ?? OVARIES: Right: Normal. Left: Contains a 1.2 cm rounded isodense area of ?? hypervascularity. Trace amount of free fluid adjacent the ovary. ?? CERVIX: 4.0 cm in length and closed. ?? CUL-DE-SAC: Normal. ?? OTHER: None. ? AGE BY LMP: 10 weeks 0 days ?? LELA BY LMP: 06/24/2025 ?? AGE BY US CRL: 9 weeks 4 days ?? LELA BY US CRL: 06/27/2025 ? US/US OB transvaginal ?? IMPRESSION: ? 1. Single live intrauterine . ?? 2. Corpus lutein cyst versus mass within left ovary. This most likely ?? represents a corpus lutein cyst. Ultrasound follow-up is recommended. ? Electronically authenticated by: RUBEN ??CARLOS ?? Date: 11/26/2024 ??09:35 ? Dictated By: ?Ruben Dillon M.D. ? Signed By: ?11/26/24 0937 ? DD/ 0935 ? TD/TT: ? Cub Reporter: Procedure Note Radiology, Radiologist, MD - 11/26/[address] [place] [address] Ultrasound Report Signed Patient: CHARLENE PURVIS LMR#: [id number] : 1990Acct:[id number] Age/Sex: 34 / FADM Date: 11/26/24 Loc: US Attending Dr: Thomas Cortes D.O. Ordering Physician: Thomas Cortes D.O. Date of Service: 11/26/24 Procedure(s): US OB transvaginal Accession Number(s): [id number] cc: Thomas Cortes D.O.; Physician,Non-Staff M.DMya The [address] [address] Patient Name: CHARLENE PURVIS MRN: [id number] date: 1990 Sex: F Assigned Patient Location: US Current Patient Location: US Accession/Order Number: [id number] Exam Date: 11/26/2024 08:36 Report Date: 11/26/2024 [...] M.D. Signed By:11/26/24 0937 DD/ 0935 TD/TT: Cub Reporter: Authorizing ProviderResult TypeResult StatusCorey Sebastian DOCLINISYNC IMAGINGFinal Result documented in this encounter Visit Diagnoses Not on filedocumented in this encounter
--- OUTSIDE RECORDS SUMMARY | 2025-09-22 12:21 | XMS_ITS | CCD ---
Author Organization [facility] [employer] Care Team Providers Care Agency Sales Director Name Role Phone PETRA ., DR WHITAKER [...] Azul MD, Melony Sibley Primary Care Provider ALEXANDRIA ROBERT Attending Unavailable NOLAN CORTES Referring Unavailable GEETA, MELONY Maryjo Primary Care UnavailKENYA Samuels Attending Unavailable NOLAN CORTES R Referring Unavailable GEETA, MELONY Maryjo Primary Care UnavailKAREEM Ramirez Attending Unavailable SEBASTIAN, NOLAN R Referring Unavailable GEETA, MELONY Maryjo Primary Care UnavailKENYA Samuels Attending Unavailable GEETA, MELONY Sibley Referring Unavailabl e GEETA, MELONY Maryjo Primary Care UnavailKAREEM Ramirez Attending Unavailable GEETA, MELONY Sibley Referring Unavailabl e GEETA, MELONY Maryjo Primary Care Unavailabl e MOJENNIFER MOYER Attending Unavailable SEBASTIAN, NOLAN Attending Unavailable SEABSTIAN, NOLAN Attending Unavailable SEBASTIAN, NOLAN Attending Unavailable SEBASTIAN, NOLAN Attending Unavailable SEBASTIAN, NOLAN Attending Unavailable SEBASTIAN, NOLAN Attending Unavailable POLINA, KRISTAN Attending Unavailable SEBASTIAN, NOLAN Attending Unavailable POLINA, KRISTAN Attending Unavailable POLINAKRISTAN Attending Unavailable SEBASTIAN, NOLAN Attending Unavailable SEBASTIAN, NOLAN Attending Unavailable BLANK ALBRECHT Attending Unavailable POLINA, RKISTAN Attending Unavailable POLINA, KRISTAN Attending Unavailable TRENABLANK MANJARREZ Attending Unavailable Medications Current Medications MedicationDrug Class(es)DatesSig (Normalized)Sig (Original)ascorbic acid 500 mg extended release oral capsule (10 sources)Vitamin Ctake 1 capsule by mouth once dailyascorbic acid (Vitamin C) 500 MG ER capsule Take 500 mg by mouth Daily Activeaspirin 81 mg delayed release oral tablet (20 sources)Platelet Aggregation Inhibitor, Nonsteroidal Anti-inflammatory Drug End: 13-02-4856jmqg 1 tablet by mouth once dailyaspirin 81 MG EC tablet Take 81 mg by mouth Daily 06/16/2025 Discontinuedaspirin 81 mg chewable tablet Chew 1 tablet (81 mg total) and swallow in the morning. ActiveBlood Glucose Monitoring Suppl (Accu-Chek Guide Me) w/Device kit (20 sources)Start: 02-21-2025 End: 96-82-4058Mkerc Glucose Monitoring Suppl (Accu-Chek Guide Me) w/Device kit Indications: Gestational diabetes mellitus (GDM), antepartum, gestational diabetes method of control unspecified (HHS-HCC) , Elevated glucose tolerance test USE TO CHECK BLOOD GLUCOSE IN THE MORNING PRIOR TO BREAKFAST AND ONE HOUR AFTER EACH MEAL FOR A TOTAL OF FOUR TIMES DAILY 1 kit 02/21/2025 06/07/2025 DiscontinuedStart: 37-03-4209Kbxkk Glucose Monitoring Suppl (Accu-Chek Guide Me) w/Device kit Indications: Gestational diabetes mellitus (GDM), antepartum, gestational diabetes method of control unspecified (HHS-HCC) , Elevated glucose tolerance test USE TO CHECK BLOOD GLUCOSE IN THE MORNING PRIOR TO BREAKFAST AND ONE HOUR AFTER EACH MEAL FOR A TOTAL OF FOUR TIMES DAILY 1 kit 02/21/2025 Active Start: 22-71-5566Vfgtn Glucose Monitoring Suppl (Accu-Chek Guide Me) w/Device [...] Glucometer) w/Device kit (1 source)Start: 01-24-2025 End: 35-19-9077Pgqwl Glucose Monitoring Suppl (D-Care Glucometer) w/Device kit [...] oral capsule (4 sources)Cephalosporin AntibacterialStart: 06-10-2025 End: 15-98-5735mxpu 1 capsule by mouth in the morningcephalexin (Keflex) 500 MG capsule Take 500 mg by mouth in the morning and 500 mg before bedtime. 06/23/2025 Discontinuedferrous sulfate 325 mg oral tablet (10 sources)Start: 33-67-6667yjwb 1 tablet by mouth at mealtimeFeroSul 325 (65 Fe) MG tablet Take 325 mg by mouth in the morning. Take with meals. 06/10/2025 Activefurosemide 20 mg oral tablet (2 sources)Loop DiureticStart: 06-10-2025 End: 06-60-0792fcqp 1 tablet by mouth once dailyfurosemide (Lasix) 20 MG tablet Take 20 mg by mouth Daily 06/10/2025 06/16/2025 Discontinued (Therapy completed) isopropyl alcohol 0.7 ml/ml medicated pad (20 sources)Start: 01-24-2025 End: 46-86-9416Jwdcfka Swabs (Alcohol Prep Pad) 70 % pads Indications: Gestational diabetes mellitus (GDM), antepartum, gestational diabetes method of control unspecified ([facility]) , Elevated glucose tolerance testApply 1 Pad topically Daily Use four times daily to check FSBS. 150 each 3 01/24/2025 06/07/2025 Nafndjrfhsvk13 hr metFORMIN hydrochloride 500 mg extended release oral tablet (20 sources)BiguanideStart: 03-08-2025 End: 12-92-8728vdeu 1 tablet by mouth every twenty-four hours in the morning, then take 2 tablets by mouth in the eveningmetFORMIN XR (GLUCOPHAGE XR) 500 mg 24 hr tablet Indications: Gestational diabetes mellitus (GDM) in second trimester controlled on oral hypoglycemic drug Take 500mg in am with breakfast and 1000 mg in pm with dinner 60 tablet 4 03/23/2025 Active End: 75-90-6804kokk 1 tablet by mouth at mealtime, then take 1 tablet by mouth every twenty-four hoursmetFORMIN, OSM, (Fortamet) 1000 MG 24 hr tablet Take 1,000 mg by mouth in the evening. Take with meals Do not crush, chew, or split. 06/07/2025 Discontinuedondansetron 4 mg disintegrating oral tablet (20 sources)Serotonin-3 Receptor AntagonistStart: 2024 End: 33-58-2724odns 1 tablet by mouth every six hours as needed for nausea and vomiting and nausea and nauseaondansetron ODT (Zofran-ODT) 4 MG disintegrating tablet Indications: Nausea Take 1 tablet (4 mg) bymouth every 6 (six) hours if needed for nausea or vomiting 30 tablet 2 2024 12/24/2024 ActiveStart: 08-25-2021 End: 17-79-7910owan 1 tablet by mouth every eight hours as needed for nausea ondansetron ODT (ZOFRAN-ODT) 4 mg disintegrating tablet Dissolve 1 tablet (4 mg total) on tongue every 8 (eight) hours as needed for nausea for up to 10 doses. 10 tablet 08/25/2021 Active End: 72-88-8059vqob 1 tablet by mouth every eight hours as needed for nausea and vomitingondansetron (ZOFRAN) 4 mg tablet Take 1 tablet (4 mg total) by mouth every 8 (eight) hours as needed for nausea or vomiting. 03/23/2025 Discontinued (Alternate therapy)microencapsulated potassium chloride 20 meq extended release oral tablet (4 sources)Start: 06-10-2025 End: 15-74-0295vpalcrwgw chloride CR (Klor-Con M20) 20 MEQ ER tablet Take 20 mEq by mouth Daily 06/10/2025 06/23/2025 DiscontinuedPrenatal MV & Min w/FA-DHA ( Adult Gummy/DHA/FA) 0.4-25 MG chewable tablet (20 sources)Start: 06-10-2025 End: 56-97-4873Gygcbbfd MV & Min w/FA-DHA ( Adult Gummy/DHA/FA) 0.4-25 MG chewable tablet Chew 1 capsule Daily 06/10/2025 06/23/2025 DiscontinuedStart: 16-51-8673Blxdpyho MV & Min w/FA-DHA ( Adult Gummy/DHA/FA) 0.4-25 MG chewable tablet Chew 1 capsule Daily 06/10/2025 ActiveStart: 12-30-2024 End: 81-43-1481Qzrsuafn MV & Min w/FA-DHA ( Adult Gummy/DHA/FA) 0.4-25 MG chewable tablet Chew 1 each Daily 12/30/2024 06/07/2025 DiscontinuedStart: 08-56-9232Pbqbtrfv MV & Min w/FA-DHA ( Adult Gummy/DHA/FA) 0.4-25 MG chewable tablet Chew 1 each Daily 12/30/2024 ActiveStart: 11-29-2024 End: 37-08-6205Wztszqkh MV & Min w/FA-DHA ( Adult Gummy/DHA/FA) 0.4-25 MG chewable tablet Indications:, unspecified gestational age , Encounter for supervision of normal first in first trimester Chew 1 each Daily 30 tablet 11 11/29/2024 12/29/2024 ActivePrenatal MV & Min w/FA-DHA ( Gummies) 0.18-25 MG chewable tablet (2 sources)Start: 11-26-2024 End: 31-19-0258Ahzoioik MV & Min w/FA-DHA ( Gummies) 0.18-25 MG chewable tablet Indications: , unspecified gestational age , Encounter for supervision of normal first in first trimester Chew 1 tablet Daily 1 tablet 11 11/26/2024 11/26/2025 ActivePrenatal MV-Min-Fe Fum-FA-DHA ( 1 PO) (1 source) End: 98-66-3892Xqpjeyqf MV-Min-Fe Fum-FA-DHA ( 1 PO) Take by [...] mg oral tablet (7 sources)SulfonylureaStart: 08-22-2021 End: 28-44-1758hhui 1.5 tablets by mouth once daily at bedtimeglyBURIDE (DIABETA) 2.5 mg tablet Take 1.5 tablets (3.75 mg total) by mouth once daily at bedtime. Pt takes 2.5 mg at bedtime 90 tablet 3 08/22/2021 03/08/2025 Discontinued (Therapy completed)3 ml insulin glargine 100 unt/ml pen injector (1 source)Insulin AnalogStart: 03-23-2025 End: 49-60-8268dsnnquw glargine (LANTUS SOLOSTAR U-100 INSULIN) 100 unit/mL (3 mL) insulin pen Prime with 2 units,then inject 10 units SQ into ABD each evening 15 mL 3 03/23/2025 03/23/2025 Discontinued (Alternatetherapy)labetalol hydrochloride 100 mg oral tablet (20 sources)beta-Adrenergic BlockerStart: 06-30-2025 End: 78-33-9608ipoh 1 tablet by mouth in the morninglabetalol (Normodyne) 100 MG tablet Indications: BP check Take 1 tablet (100 mg) by mouth in the morning and 1 tablet (100 mg) before bedtime. Do all this for 10 days. 20 tablet 06/30/2025 07/14/2025Discontinued (Therapy completed)Start: 06-10-2025 End: 94-22-0689yhoe 2 tablets by mouth in the morning, then take 2 tablets by mouth in the evening, then take 2 tablets by mouth at bedtimelabetalol (Normodyne) 100 MG tablet Indications: Encounter for visit ([facility]) , Blood pressure check Take 2 tablets (200 mg) by mouth in the morning and 2 tablets (200 mg) in the evening and 2 tablets (200 mg) before bedtime. 180 tablet 06/16/2025 07/16/2025 Active End: 34-41-8909zyrf 1 tablet by mouth twice dailylabetaloL (NORMODYNE) 100 mg tablet Take 100 mg by mouth 2 (two) times a day. 03/08/2025 Discontinued (Therapy completed)progesterone 200 mg oral capsule (10 sources)ProgesteroneStart: 02-24-2023 End: 56-08-3057qrtybjhjgjsm (PROMETRIUM) 200 mg capsule Indications: History of delivery Place 200 mg Inside vagina every night until 36 weeks. 90 capsule 3 02/24/2023 03/23/2025 Discontinued (Therapy completed) Problems Active Problems Problem ClassificationProblemDateDocumented DateEpisodic/ChronicDiabetes mellitus without complication (4 sources)Impaired glucose tolerance (oral); Translations: [IMPAIRED GLUCOSE TOLERANCE ORAL]Onset: 56-12-0745JlnpsgzlJekdr and electrolyte disorders (2 sources)Dehydration; Translations: [Hypokalemia]Onset: 25-95-3662Zrtgmbis Headache; including migraine (2 sources)Throbbing headache; Translations: [Throbbing headache]06-07-2025 EpisodicHypertension complicating ; childbirth and the puerperium (20 sources)Benign essential hypertension in obstetric context; Translations: [Pre-existing essential hypertension complicating , unspecified trimester]Onset: 023921-65-3525DecyhhaJqmebqmetupi complicating ; childbirth and the puerperium (2 sources)-induced hypertension; Translations: [Gestational [-induced] hypertension withoutsignificant proteinuria, unspecified trimester]71-87-7724PvnafdgyXkpfmxwqsreha and screening for infectious disease (2 sources)Encounter for screening for human papillomavirus (HPV); Translations: [Contact with and (suspected)exposure to infections with a predominantly sexual mode of transmission]Onset: 80-25-2178GjoekpveAshrmbadx disorders (4 sources)Irregular menstruation, unspecified; Translations: [Missed period] Onset: 78-79-0673RlxofigPbokl and ill-defined heart disease (2 sources)Cardiomegaly; Translations: [Cardiomegaly]Onset: 55-19-0197Uendjaz Other circulatory disease (2 sources)H/O: hypertension; Translations: [Personal history of other diseases of the circulatory system]70-10-2590IvhdeoglStait complications of (1 source)Other specified related conditions, first trimester; Translations: [OTH SPEC PREG RELATEDCOND 1ST TRI]Onset: 63-29-2314UkhhhswiSrrco female genital disorders (1 source)Other specified noninflammatory disorders of vagina; Translations: [OTH SPEC NONINFLAMMATORY D/O VAGINA]Onset: 01-07-7707KumwfrriUpmai gastrointestinal disorders (1 source)Diarrhea, unspecified; Translations: [DIARRHEA UNSPECIFIED]Onset: 62-59-3313OuxmzhbdYzhhd and delivery including normal (20 sources)Encounter for supervision of normal , unspecified, second trimester; Translations: [Encounter for supervision of normal , unspecified, first trimester]Onset: 51-84-1887EhupyrocFusks screening for suspected conditions (not mental disorders or infectious disease) (9 sources)Encounter for screening for malignant neoplasm of cervix; Translations: [Encounter for other screening for genetic and chromosomal anomalies]Onset: 13-85-3224PnfelzzaWxhdxfnh codes; unclassified (4 sources)Personal history of other complications of , childbirth and the puerperium; Translations: [PERS HX OTH COMP PG CHILDBIRTH AND PP]Onset: 42-47-7942JbqgcmcgDdblqdsi codes; unclassified (1 source)9 weeks gestation of ; Translations: [9 WEEKS GESTATION OF ]Onset: 46-33-9023ZluizbvnOojimcdg codes; unclassified (2 sources)Gestation period, 14 weeks; Translations: [14 weeks gestation of ]81-44-3755KsybnmveLwdmzaxk codes; unclassified (2 sources)Gestation period, 22 weeks; Translations: [22 weeks gestation of ]50-01-9315PdluepzrIcgqknop codes; unclassified (2 sources)Gestation period, 25 weeks; Translations: [25 weeks gestation of ]88-03-2915DkazmfaiKumtusze codes; unclassified (2 sources)Gestation period, 28 weeks; Translations: [28 weeks gestation of ]91-67-7065ZizarujlXyaeomrz codes; unclassified (2 sources)Gestation period, 30 weeks; Translations: [30 weeks gestation of ]87-28-8143EjctkdyoAgnxlsbu codes; unclassified (2 sources)Gestation period, 32 weeks; Translations: [32 weeks gestation of ]05-70-8919HefjtcwgDuzscwdh codes; unclassified (2 sources)Gestation period, 34 weeks; Translations: [34 weeks gestation of ]57-25-9045FnukoalbZqkpvlad codes; unclassified (2 sources)Gestation period, 35 weeks; Translations: [35 weeks gestation of ]52-71-2687FffuwjmfKannupyx codes; unclassified (2 sources)Gestation period, 36 weeks; Translations: [36 weeks gestation of ]70-94-1067MdhvtqcyZrotdygaehzi (1 source)Med Start-GDMOnset: 03-08-2025 Past or Other Problems Problem ClassificationProblemDateDocumented DateEpisodic/Chronic Administrative/social admission (2 sources)Patient encounter status; Translations: [Other specified counseling] Onset: 492327-94-4038JmfjleixQhqxujcc or abnormal glucose tolerance complicating ; childbirth; or the puerperium (20 sources)Gestational diabetes mellitus; Translations: [Gestational diabetes mellitus in , unspecified control]Onset: 720245-19-7101Ocgoteeq Nausea and vomiting (20 sources)Nausea with vomiting, unspecified; Translations: [Nausea]Onset: 87-38-3546SmtzwytbPzmrd female genital disorders (20 sources)H/O: premature delivery; Translations: [Personal history of pre-term labor]Onset: 989032-19-2865YkjwyvapXcmef injuries and conditions due to external causes (20 sources)Other specified effects of external causes, initial encounter; Translations: [Contact with and (suspected) exposure to other potentially hazardous substances]Onset: 212035-88-2335Kxrcpipw Results Test NameValueInterpretationReference AucgjJssmuvyd72cx 44-24-417750Gielfrky by: JENNIFER GARCIA on: 06/27/2025 01:36 PM Modules accepted: OrdersNormalUniversity Fort Hamilton HospitalOffice Visiton 09-00-9485Zqgcvl-up [id number] Charlene Purvis 1990 F Date Provider Department Center 06/27/2025 [facility]JENNIFER GARCIA [facility] Family History Problem Relation Age of Onset Heart murmur Mother Family Status - Relation Status Age at Mother Alive Father Alive Level of Service:84365 [place] OFFICE/OUTPATIENT NEW LOW MDM 30 MINUTES (25)Normal [facility] WITH AUTO DIFFon 83-43-3789BQQAZIMFM ABSOLUTE JNMV8YMUO HealthcareBasophils/100 WBC (Bld)0.2 %0.2 - 2.0 %NOMS HealthcareEosinophils/100 WBC (Bld)2 %0.9 - 7.0 %NOMS HealthcareErythrocyte distribution width (RBC) [Ratio]14 %11.0 - 15.0 %[facility]OM[facility] HealthcareHematocrit (Bld) [Volume fraction]26.6 %Low36.0 - 48.0 %[facility] HealthcareHemoglobin (Bld) [Mass/Vol]8.8 g/dLLow12.0 - 16.0 g/dLNOIA HealthcareIMMATURE GRANULOCYTES ABS AUTO0.03NOMS HealthcareImmature granulocytes/100 WBC (Bld)0.4 %0.0 - 0.5 %NOM HealthcareInterpretation and review of laboratory resultsAbnormalNOIA Healthcare LYMPHOCYTES ABSOLUTE MFMY5HcyNAQF HealthcareLymphocytes/100 WBC (Bld)11.7 %Low 20.5 - 60.0 %[facility]ettH (RBC) [Entitic mass]31.3 pg26.7 - 34.0 pgNOResearch Medical Center-Brookside CampusHC (RBC) [Mass/Vol]33.1 g/dL29.9 - 35.2 g/dLNOResearch Medical Center-Brookside CampusV (RBC) [Entitic vol]94.7 fL81.0 - 99.0 fLNOIA HealthcareMONOCYTES ABSOLUTE AUTO0.7NOMS HealthcareMonocytes/100 WBC (Bld)8 %1.7 - 12.0 %NOM HealthcareNEUTROPHILS ABSOLUTE AUTO6.6HighNOIA HealthcareNeutrophils/100 WBC (Bld)77.7 %High43.0 - 75.0 %[facility] HealthcarePlatelet mean volume (Bld) [Entitic vol]11.2 fL9.5 - 13.5 fLNOMS HealthcareTBH EO #0.2NOMS HealthcareTBH RQC167LoyHVQV HealthcareTBH RBC 2.81LowNOMS HealthcareTBH WBC8.5NOMS HealthcareCLINISYNCNOMS HealthcareCTA Chest vessels WO and W contrast Omar 01-37-0160[place] [address] CT Scan Report Signed Patient: CHARLENE PURVIS MR#: [id number] : 1990 Acct:[id number] Age/Sex: 34 / F ADM Date: Loc: [facility] [address]: Nolan Cortes D.O. Ordering Physician: Nolan Cortes D.O. Date of Service: 06/08/25 Procedure(s): CT angio chest Accession Number(s): [id number] cc: Physician,Non-Staff Nikky [address] [address] Patient Name: CHARLENE PURVIS MRN: [id number] date: 1990 Sex: F Assigned Patient Location: [facility] Current Patient Location: [facility] Accession/Order Number: [id number] Exam Date: 06/08/2025 09:37 Report Date: 06/08/2025 [...] Jr., D.O. 06/08/2025 9:40 AM Dictation Location: [place] [address] Electronically authenticated by: [id number] Y Date: 06/08/2025 09:40 Dictated By: Jacinto Rivas M.D. Signed By: 06/08/2542 DD/ 9 TD/TT: Metal Off Bearer:LEXHRadiology, Radiologist, - 06/08/[address] [address] [address] Scan Report Signed Patient: CHARLENE PURVIS MR#: [id number] : 1990 Acct:[id number] Age/Sex: 34 / F ADM Date: Loc: [facility] [address]: Nolan Cortes D.O. Ordering Physician: Nolan Cortes D.O. Date of Service: 06/08/25 Procedure(s): CT angio chest Accession Number(s): [id number] cc: Physician,Non-Staff M.Daisy [address] [address] Patient Name: CHARLENE PURVIS MRN: [id number] date: 1990 Sex: F Assigned Patient Location: [facility] Current Patient Location: [facility] Accession/Order Number: [id number] Exam Date: 06/08/2025 09:37 Report Date: 06/08/2025 [...] Jr., D.O. 06/08/2025 9:40 AM Dictation Location: [place] [address] Electronically authenticated by: [id number] Y Date: 06/08/2025 09:40 Dictated By: Jacinto Rivas M.D. Signed By: 06/08/2542 DD/ 9 TD/TT: Metal Off Bearer: [facility] HealthcareRadiology Study observation (narrative)[facility] HealthcareCTA Chest vessels WO and W contrast IVOrdered By: Radiologist Radiology on 17-00-6256ASJPLee's Summit Hospital Work Phone: aLL CBC WITH AUTO DIFFon 04-14-6632WBZECZUDH ABSOLUTE FMFH0ZCNB HealthcareBasophils/100 WBC (Bld)0.3 %0.2 - 2.0 %NOM Healthcare Eosinophils/100 WBC (Bld)3.6 %0.9 - 7.0 %NOM HealthcareErythrocyte distribution width (RBC) [Ratio]13.4 %11.0 - 15.0 %NOM HealthcareHematocrit (Bld) [Volume fraction]20.6 %Critically low36.0 - 48.0 %NOM HealthcareComment on above: RESULTS CALLED TO [place] RNHemoglobin (Bld) [Mass/Vol]6.8 g/dL Critically low12.0 - 16.0 g/dLNOIA HealthcareComment on above:RESULTS CALLED TO [place] RNIMMATURE GRANULOCYTES ABS AUTO0.05HighNOIA HealthcareImmature granulocytes/100 WBC (Bld)0.7 %High0.0 - 0.5 %NOM HealthcareInterpretation and review of laboratory resultsAbnormalNOIA HealthcareLYMPHOCYTES ABSOLUTE AUTO1.3 NOMS HealthcareLymphocytes/100 WBC (Bld)17.3 %Low20.5 - 60.0 %NOMMercy Hospital St. LouisMCH (RBC) [Entitic mass]32.1 pg26.7 - 34.0 pgNOResearch Medical Center-Brookside CampusHC (RBC) [Mass/Vol]33 g/dL29.9 - 35.2 g/dLNOResearch Medical Center-Brookside CampusV (RBC) [Entitic vol]97.2 fL81.0 - 99.0 fL NOM HealthcareMONOCYTES ABSOLUTE AUTO0.6NOMS HealthcareMonocytes/100 WBC (Bld) 8.1 %1.7 - 12.0 %[facility] HealthcareNEUTROPHILS ABSOLUTE AUTO5.1NOMS Healthcare Neutrophils/100 WBC (Bld)70 %43.0 - 75.0 %[facility] HealthcarePlatelet mean volume (Bld) [Entitic vol]11.2 fL9.5 - 13.5 fLNOCoxHealthTBH EO #0.3NOMS Healthcare TB ROI553AsjNGNG [facility] RBC2.12LowNOCoxHealthTB WBC7.3NOIA HealthcareCLINISYNCNOU MEDICAL CENTER [facility] HealthcareALL CBC WITH AUTO DIFFon 48-01-1191FXNEXIJNE ABSOLUTE MQIF3CMFX HealthcareBasophils/100 WBC (Bld)0.1 %Low0.2 - 2.0 %NOM HealthcareEosinophils/100 WBC (Bld)0 %Low0.9 - 7.0 %[facility] HospitalErythrocyte distribution width (RBC) [Ratio]13.8 %11.0 - 15.0 %[facility] HealthcareHematocrit (Bld) [Volume fraction]26.8 %Low36.0 - 48.0 %[facility] HospitalHemoglobin (Bld) [Mass/Vol]8.8 g/dLLow12.0 - 16.0 g/dLNOCoxHealthIMMATURE GRANULOCYTES ABS AUTO0.1HighNOCoxHealthImmature granulocytes/100 WBC (Bld)0.9 %High0.0 - 0.5 %[facility] HospitalInterpretation and review of laboratory resultsAbnormalLee's Summit HospitalLYMPHOCYTES ABSOLUTE AUTO1.2NOMS HealthcareLymphocytes/100 WBC (Bld) 10.6 %Low20.5 - 60.0 %[facility]ett[facility] (RBC) [Entitic mass]32 pg26.7 - 34.0 pg [facility]ettHC (RBC) [Mass/Vol]32.8 g/dL29.9 - 35.2 g/dLCox MonettV (RBC) [Entitic vol]97.5 fL81.0 - 99.0 fLNOMS HealthcareMONOCYTES ABSOLUTE AUTO 0.4NOMS HealthcareMonocytes/100 WBC (Bld)3.7 %1.7 - 12.0 %[facility] NEUTROPHILS ABSOLUTE AUTO9.2HighNOIA HealthcareNeutrophils/100 WBC (Bld)84.7 % High43.0 - 75.0 %[facility] HealthcarePlatelet mean volume (Bld) [Entitic vol]12.5 fL 9.5 - 13.5 fLNOCoxHealthTBH EO #0NOMS [facility] HospitalTBH [id number] Healthcare TBH RBC2.75LowNOMadison Medical Center WBC10.9NOCoxHealthCLINISYNCNOU MEDICAL CENTER [facility] [place] [facility] Healthcare ALL CBC WITH AUTO DIFFon [id number] ABSOLUTE CBCZ8IREL [facility] Basophils/100 WBC (Bld)0.3 %0.2 - 2.0 %NOMS [facility] HospitalEosinophils/100 WBC (Bld) 0.7 %Low0.9 - 7.0 %[facility] HospitalErythrocyte distribution width (RBC) [Ratio] 13.3 %11.0 - 15.0 %[facility] HospitalHematocrit (Bld) [Volume fraction]29.5 %Low 36.0 - 48.0 %[facility] HospitalHemoglobin (Bld) [Mass/Vol]9.9 g/dLLow12.0 - 16.0 g/dLLee's Summit HospitalIMMATURE GRANULOCYTES ABS AUTO0.05HighNOCoxHealthImmature granulocytes/100 WBC (Bld)0.4 %0.0 - 0.5 %[facility] HospitalInterpretation and review of laboratory resultsAbnormalNOCoxHealthLYMPHOCYTES ABSOLUTE AUTO0.9 LowLee's Summit HospitalLymphocytes/100 WBC (Bld)7.5 %Low20.5 - 60.0 %[facility] MCH (RBC) [Entitic mass]32.6 pg26.7 - 34.0 pgNOCoxHealthMCHC (RBC) [Mass/Vol]33.6 g/dL29.9 - 35.2 g/dLLee's Summit HospitalMCV (RBC) [Entitic vol]97 fL 81.0 - 99.0 fLNOIA HealthcareMONOCYTES ABSOLUTE AUTO0.7NOCoxHealth Monocytes/100 WBC (Bld)6.2 %1.7 - 12.0 %[facility] HospitalNEUTROPHILS ABSOLUTE AUTO 10HighNOMS [facility] HospitalNeutrophils/100 WBC (Bld)84.9 %High43.0 - 75.0 %[facility] HospitalPlatelet mean volume (Bld) [Entitic vol]12.4 fL9.5 - 13.5 fLLee's Summit HospitalTB EO #0.1NOMS [facility] DAY360UmuETFTMadison Medical Center RBC3.04Low [facility] WBC11.8HighLee's Summit HospitalCLINISYNCNHedrick Medical CenterALL CBC WITH AUTO DIFFon 57-02-5461DGJRQQEEO ABSOLUTE EAWG3EOABCoxHealthBasophils/100 WBC (Bld)0.3 %0.2 - 2.0 %NOMMercy Hospital St. LouisEosinophils/100 WBC (Bld)2.2 %0.9 - 7.0 %[facility] HospitalErythrocyte distribution width (RBC) [Ratio]13.2 %11.0 - 15.0 % [facility] HospitalHematocrit (Bld) [Volume fraction]35 %Low36.0 - 48.0 %[facility] HospitalHemoglobin (Bld) [Mass/Vol]11.9 g/dLLow12.0 - 16.0 g/dLLee's Summit Hospital IMMATURE GRANULOCYTES ABS AUTO0.03NOCoxHealthImmature granulocytes/100 WBC (Bld)0.5 %0.0 - 0.5 %[facility] HospitalInterpretation and review of laboratory resultsAbnormalLee's Summit HospitalLYMPHOCYTES ABSOLUTE AUTO1.9NOMS [facility] Lymphocytes/100 WBC (Bld)28.6 %20.5 - 60.0 %[facility]ettH (RBC) [Entitic mass]31.8 pg26.7 - 34.0 pgCox MonettHC (RBC) [Mass/Vol]34 g/dL29.9 - 35.2 g/dLCox MonettV (RBC) [Entitic vol]93.6 fL81.0 - 99.0 fLLee's Summit Hospital MONOCYTES ABSOLUTE AUTO0.6NOMS [facility] HospitalMonocytes/100 WBC (Bld)9.9 %1.7 - 12.0 %[facility] HospitalNEUTROPHILS ABSOLUTE AUTO3.8NOMS HealthcareNeutrophils/100 WBC (Bld)58.5 %43.0 - 75.0 %NOMS HealthcarePlatelet mean volume (Bld) [Entitic vol] 12.6 fL9.5 - 13.5 fLNOMS HealthcareTBH EO #0.1NOMS HealthcareTBH HTK343GmeFIVG HealthcareTBH RBC3.74LowNOMS HealthcareTBH WBC6.5NOMS HealthcareCLINISYNCNOMS HealthcareUrinalysis macro (dipstick) panel (U)on 24-53-7863Bymapgnso, UA NegativeNegative - 4(70) +++ mg/dLNOMS HealthcareBlood, UAPositiveNegative - 50 Eliceo/mcLNOMS HealthcareComment on above:TraceClarity, UAClearNOMS Healthcare Color, UAYellowNOMS HealthcareGlucose, UANegativeNegative - 2000(110) ++++ mg/dL NOMS HealthcareInterpretation and review of laboratory resultsAbnormalNOMS HealthcareKetones, UAPositiveNegative - 160(16) ++++ mg/dLNOMS HealthcareComment on above:80mg/dLLeukocytes, UAPositiveNegative - 500+++ Danielle/mcLNOMS Healthcare Comment on above:smallNitrite, UANegativeNegative - PositiveNOMS HealthcarepH, UA75 - 9NOMS HealthcareProtein, UAPositiveNegative - 2000(20) ++++ mg/dLNOMS HealthcareComment on above:30mg/dLSpec Grav, UA1.0151 - 1.03[facility] Urobilinogen, UA0.20.2 - 12 mg/dLNOMS HealthcareNOMS HealthcareUS OB BPP W NON-STRESSon 02-59-2846KvxMin[place] [address] Ultrasound Report Signed Patient: CHARLENE PURVIS MR#: [id number] : 1990 Acct:[id number] Age/Sex: 34 / F ADM Date: 05/30/25 Loc: [facility] 250-[address]: Nolan Cortes D.O. Ordering Physician: Nolan Cortes D.O. Date of Service: 05/30/25 Procedure(s): US OB BPP w non-stress Accession Number(s): [id number] cc: Nolan Cortes D.O.; Physician,Non-Staff MTomas The [address] [address] Patient Name: CHARLENE PURVIS MRN: [facility]:[id number] date: 1990 Sex: F Assigned Patient Location: [facility] Current Patient Location: [facility] Accession/Order Number: [id number] Exam Date: 05/30/2025 15:40 Report Date: 05/30/2025 15:41 At the request of: NOLAN CORTES DO Procedure: US OB BPP w non-stress Biophysical profile. Reason for exam: Gestational diabetes COMPARISON: BPP 05/26/2025 TECHNIQUE: Transabdominal imaging of the gravid uterus was obtained. FINDINGS: The tombstone setter reports a BPP of 8 out of 8. BHAVANI is normal at 11 cm. heart rate 138 bpm. US/US OB BPP w non-stress IMPRESSION: BPP 8 out of 8. Impression dictated by: Jacinto Rivas Jr., D.O. 05/30/2025 3:41 PM Dictation Location: [place] [address] Electronically authenticated by: [id number] Y Date: 05/30/2025 15:41 Dictated By: Jacinto Rivas M.D. Signed By: 05/30/25 1544 DD/ 1541 TD/TT: Metal Off Bearer:LEXHRadiologshoaib, Radiologist, - 05/30/2025 The [place] [id number] Ultrasound Report Signed Patient: CHARLENE PURVIS MR#: [id number] : 1990 Acct:[id number] Age/Sex: 34 / F ADM Date: 05/30/25 Loc: [facility] 250-[address]: Nolan Cortes D.O. Ordering Physician: Nolan Cortes D.O. Date of Service: 05/30/25 Procedure(s): US OB BPP w non-stress Accession Number(s): [id number] cc: Nolan Cortes D.O.; Physician,Non-Staff Nikky The [place] [address] Patient Name: CHARLENE PURVIS MRN: [facility]:[id number] date: 1990 Sex: F Assigned Patient Location: [facility] Current Patient Location: [facility] Accession/Order Number: [id number] Exam Date: 05/30/2025 15:40 Report Date: 05/30/2025 15:41 At the request of: NOLAN CORTES DO Procedure: US OB BPP w non-stress Biophysical profile. Reason for exam: Gestational diabetes COMPARISON: BPP 05/26/2025 TECHNIQUE: Transabdominal imaging of the gravid uterus was obtained. FINDINGS: The tombstone setter reports a BPP of 8 out of 8. BHAVANI is normal at 11 cm. heart rate 138 bpm. US/US OB BPP w non-stress IMPRESSION: BPP 8 out of 8. Impression dictated by: Jacinto Rivas Jr., D.O. 05/30/2025 3:41 PM Dictation Location: [place] [address] Electronically authenticated by: [id number] Y Date: 05/30/2025 15:41 Dictated By: Jacinto Rivas M.D. Signed By: 05/30/25 1544 DD/ 1541 TD/TT: Metal Off Bearer: ROCKY HealthcareRadiology Study observation (narrative)NOMS HealthcareUS OB BPP W NON-STRESSOrdered By: Radiologist Radiology on 29-20-4512[facility] Work Phone: US OB BPP W NON-STRESSon [phone] [address] Ultrasound Report Signed Patient: CHARLENE PURVIS MR#: [id number] : 1990 Acct:[id number] Age/Sex: 34 / F ADM Date: 05/26/25 Loc: [facility] [place] Attending Dr: Nolan Cortes D.O. Ordering Physician: Nolan Cortes D.O. Date of Service: 05/26/25 Procedure(s): US OB BPP w non-stress Accession Number(s): [id number] cc: Nolan Cortes D.O.; Physician,Non-Staff Nikky The [place] [id number] Patient Name: CHARLENE PURVIS MRN: [facility]:[id number] date: 1990 Sex: F Assigned Patient Location: [facility] Current Patient Location: Accession/Order Number: [id number] Exam Date: 05/26/2025 16:46 Report Date: 05/26/2025 [...] Maxwell M.D. 05/26/2025 4:48 PM Dictation Location: [place] [address] Electronically authenticated by: [id number] Y Date: 05/26/2025 16:48 Dictated By: Marquis Maxwell M.D. Signed By: 05/26/25 165 DD/ 1648 TD/TT: Metal Off Bearer:LEXHRadiology, Radiologist, - 05/26/2025 [place] [address] Ultrasound Report Signed Patient: CHARLENE PURVIS MR#: [id number] : 1990 Acct:[id number] Age/Sex: 34 / F ADM Date: 05/26/25 Loc: [facility] Attending Dr: Nolan Cortes D.O. Ordering Physician: Nolan Cortes D.O. Date of Service: 05/26/25 Procedure(s): US OB BPP w non-stress Accession Number(s): [id number] cc: Nolan Cortes D.O.; Physician,Non-Staff Nikky [facility] [place] [address] Patient Name: CHARLENE PURVIS MRN: [id number] date: 1990 Sex: F Assigned Patient Location: [facility] Current Patient Location: Accession/Order Number: [id number] Exam Date: 05/26/2025 16:46 Report Date: 05/26/2025 [...] Maxwell M.D. 05/26/2025 4:48 PM Dictation Location: [place] [address] Electronically authenticated by: [id number] Y Date: 05/26/2025 16:48 Dictated By: Marquis Maxwell M.D. Signed By: 05/26/25 165 DD/ TD/TT: Metal Off Bearer: NOMChip HealthcareRadiology Study observation (narrative)NOMS HealthcareUS OB BPP W NON-STRESSOrdered By: Radiologist Radiology on 34-13-4377DNYL [facility] Work Phone: US OB GROWTHon [phone] [address] Ultrasound Report Signed Patient: CHARLENE PURVIS MR#: [id number] : 1990 Acct:[id number] Age/Sex: 34 / F ADM Date: 05/16/25 Loc: US Attending Dr: Nolan Cortes D.O. Ordering Physician: Nolan Cortes D.O. Date of Service: 05/16/25 Procedure(s): US OB growth Accession Number(s): [id number] cc: Nolan Cortes D.O.; Physician,Non-Staff Nikky [place] [id number] Patient Name: CHARLENE PURVIS MRN: [facility]:[id number] date: 1990 Sex: F Assigned Patient Location: US Current Patient Location: Accession/Order Number: [id number] Exam Date: 05/25/2025 09:01 Report Date: 05/25/2025 [...] Peña M.D. 05/25/2025 9:12 AM Dictation Location: [place] [address] Electronically authenticated by: [id number] Y Date: 05/25/2025 09:12 Dictated By: Grace Peña M.D. Signed By: 05/25/25914 DD/ 1 TD/TT: Metal Off Bearer:LEXHRadiology, Radiologist, - 05/25/2025 [place] [address] Ultrasound Report Signed Patient: CHARLENE PURVIS MR#: [id number] : 1990 Acct:[id number] Age/Sex: 34 / F ADM Date: 05/16/25 Loc: US Attending Dr: Nolan Cortes D.O. Ordering Physician: Nolan Cortes D.O. Date of Service: 05/16/25 Procedure(s): US OB growth Accession Number(s): [id number] cc: Nolan Cortes D.O.; Physician,Non-Staff Nikky The [place] [phone] Patient Name: CHARLENE PURVIS MRN: [id number]:[id number] date: 1990 Sex: F Assigned Patient Location: US Current Patient Location: Accession/Order Number: [id number] Exam Date: 05/25/2025 09:01 Report Date: 05/25/2025 [...] Peña M.D. 05/25/2025 9:12 AM Dictation Location: [place] [address] Electronically authenticated by: [id number] Y Date: 05/25/2025 09:12 Dictated By: Grace Peña M.D. Signed By: 05/25/25914 DD/ 1 TD/TT: Metal Off Bearer: ROCKY HealthcareRadiology Study observation (narrative)NOMChip AnglinUS OB GROWTHOrdered By: Radiologist Radiology on 63-75-0107DNAZ [facility] Work Phone: US OB BPP W NON-STRESSon [phone] [address] Ultrasound Report Signed Patient: CHARLENE PURVIS MR#: [id number] : 1990 Acct:[id number] Age/Sex: 34 / F ADM Date: 05/23/25 Loc: US Attending Dr: Nolan Cortes D.O. Ordering Physician: Nolan Cortes D.O. Date of Service: 05/23/25 Procedure(s): US OB BPP w non-stress Accession Number(s): [id number] cc: Nolan Cortes D.O.; Physician,Non-Staff Nikky The [address] [address] Patient Name: CHARLENE PURVIS MRN: [facility]:[id number] date: 1990 Sex: F Assigned Patient Location: [facility] Current Patient Location: Accession/Order Number: [id number] Exam Date: 05/24/2025 06:57 Report Date: 05/24/2025 [...] Peña M.D. 05/24/2025 6:59 AM Dictation Location: [place] [address] Electronically authenticated by: [id number] Y Date: 05/24/2025 06:59 Dictated By: Grace Peña M.D. Signed By: 05/24/25 0702 DD/ 0659 TD/TT: Metal Off Bearer:TBHRadiology, Radiologist, MD - 05/24/2025 [place] [address] Ultrasound Report Signed Patient: CHARLENE PURVIS MR#: [id number] : 1990 Acct:[id number] Age/Sex: 34 / F ADM Date: 05/23/25 Loc: US Attending Dr: Nolan Cortes D.O. Ordering Physician: Nolan Cortes D.O. Date of Service: 05/23/25 Procedure(s): US OB BPP w non-stress Accession Number(s): [id number] cc: Nolan Cortes D.O.; Physician,Non-Staff Nikky The [address] [address] Patient Name: CHARLENE PURVIS MRN: [facility]:[id number] date: 1990 Sex: F Assigned Patient Location: [facility] Current Patient Location: Accession/Order Number: [id number] Exam Date: 05/24/2025 06:57 Report Date: 05/24/2025 [...] Peña M.D. 05/24/2025 6:59 AM Dictation Location: [place] [address] Electronically authenticated by: [id number] Y Date: 05/24/2025 06:59 Dictated By: Grace Peña M.D. Signed By: 05/24/25 0702 DD/ 0659 TD/TT: Metal Off Bearer: ROCKY HealthcareRadiology Study observation (narrative)NOMS HealthcareUS OB BPP W NON-STRESSOrdered By: Radiologist Radiology on 30-79-2998XM[facility] Work Phone: Urinalysis macro (dipstick) panel (U)on 05-24-2025 Bilirubin, UATraceNegative - 4(70) +++ mg/dLNOMS HealthcareBlood, UANegative Negative - 50 Eliceo/mcLNOMS HealthcareClarity, UAClearNOMS HealthcareColor, UA YellowNOMS HealthcareGlucose, UANegativeNegative - 2000(110) ++++ mg/dLNOMS HealthcareInterpretation and review of laboratory resultsAbnormalNOIA Healthcare Ketones, UANegativeNegative - 160(16) ++++ mg/dLNOIA HealthcareLeukocytes, UA NegativeNegative - 500+++ Danielle/mcLNOMS HealthcareNitrite, UANegativeNegative - PositiveNOMS HealthcarepH, UA65 - 9NOMS HealthcareProtein, UATraceNegative - 2000(20) ++++ mg/dLNOMS HealthcareSpec Grav, UA1.031 - 1.03[facility] Urobilinogen, UA1.00.2 - 12 mg/dLNOMS HealthcareNOMS HealthcareUS OB BPP W NON-STRESSon 25-36-6095WzgMin[place] [address] Ultrasound Report Signed Patient: CHARLENE PURVIS MR#: [id number] : 1990 Acct:[id number] Age/Sex: 34 / F ADM Date: 05/16/25 Loc: US Attending Dr: Nolan Cortes D.O. Ordering Physician: Nolan Cortes D.O. Date of Service: 05/16/25 Procedure(s): US OB BPP w non-stress Accession Number(s): [id number] cc: Nolan Cortes D.O.; Physician,Non-Staff Nikky The [place] [phone] Patient Name: CHARLENE PURVIS MRN: [id number] date: 1990 Sex: F Assigned Patient Location: US Current Patient Location: Accession/Order Number: [id number] Exam Date: 05/16/2025 22:56 Report Date: 05/16/2025 [...] PM Dictation Location: [facility] Electronically authenticated by: [id number] Y Date: 05/16/2025 23:00 Dictated By: Mehul Brewer M.D. Signed By: 05/16/252302 DD/ 99 TD/TT: Metal Off Bearer:LEXHRadiologshoaib, Radiologist, - 05/16/2025 [place] [address] Ultrasound Report Signed Patient: CHARLENE PURVIS MR#: [id number] : 1990 Acct:[id number] Age/Sex: 34 / F ADM Date: 05/16/25 Loc: US Attending Dr: Nolan Cortes D.O. Ordering Physician: Nolan Cortes D.O. Date of Service: 05/16/25 Procedure(s): US OB BPP w non-stress Accession Number(s): [id number] cc: Nolan Cortes D.O.; Physician,Non-Staff Nikky The [place] [phone] Patient Name: CHARLENE PURVIS MRN: [id number]:[id number] date: 1990 Sex: F Assigned Patient Location: US Current Patient Location: Accession/Order Number: [id number] Exam Date: 05/16/2025 22:56 Report Date: 05/16/2025 [...] PM Dictation Location: [facility] Electronically authenticated by: [id number] Y Date: 05/16/2025 23:00 Dictated By: Mehul Brewer M.D. Signed By: 05/16/252302 DD/ 99 TD/TT: Metal Off Bearer: ROCKY HealthcareRadiology Study observation (narrative)NOMChip HealthcareUS OB BPP W NON-STRESSOrdered By: Radiologist Radiology on 08-41-0977[facility] Work Phone: US OB BPP W NON-STRESSon 34-43-0336VzwMin[place] [address] Ultrasound Report Signed Patient: CHARLENE PURVIS MR#: [id number] : 1990 Acct:[id number] Age/Sex: 34 / F ADM Date: 05/09/25 Loc: [facility] 250-[address]: Nolan Cortes D.O. Ordering Physician: Nolan Cortes D.O. Date of Service: 05/09/25 Procedure(s): US OB BPP w non-stress Accession Number(s): [id number] cc: Nolan Cortes D.O.; Physician,Non-Staff Nikky [place] [address] Patient Name: CHARLENE PURVIS MRN: [id number]:[id number] date: 1990 Sex: F Assigned Patient Location: [facility] Current Patient Location: [facility] Accession/Order Number: [id number] Exam Date: 05/09/2025 15:50 Report Date: 05/09/2025 15:51 At the request of: NOLAN CORTES DO Procedure: US OB BPP w non-stress Biophysical profile. Reason for exam: Gestational diabetes. COMPARISON: BDP 05/02/2025. TECHNIQUE: Transabdominal imaging of the gravid uterus was obtained. FINDINGS: Plumber'S Helper reports a BPP of 8 out of 8. BHAVANI is normal at 13.2 cm. heart rate 161 bpm. US/US OB BPP w non-stress Impression: BPP 8 out of 8. Impression dictated by: Jacinto Rivas Jr., D.O. 05/09/2025 3:51 PM Dictation Location: [place] [address] Electronically authenticated by: [id number] Y Date: 05/09/2025 15:51 Dictated By: Jacinto Rivas M.D. Signed By: 05/09/25 1554 DD/ 1551 TD/TT: Metal Off Bearer:LEXHRadiology, Radiologist, - 05/09/2025 [place] [address] Ultrasound Report Signed Patient: CHARLENE PURVIS MR#: [id number] : 1990 Acct:[id number] Age/Sex: 34 / F ADM Date: 05/09/25 Loc: [facility] 250-[address]: Nolan Cortes D.O. Ordering Physician: Nolan Cortes D.O. Date of Service: 05/09/25 Procedure(s): US OB BPP w non-stress Accession Number(s): [id number] cc: Nolan Cortes D.O.; Physician,Non-Staff Nikky [facility] [place] [address] Patient Name: CHARLENE PURVIS MRN: [id number]:[id number] date: 1990 Sex: F Assigned Patient Location: [facility] Current Patient Location: [facility] Accession/Order Number: [id number] Exam Date: 05/09/2025 15:50 Report Date: 05/09/2025 15:51 At the request of: NOLAN CORTES DO Procedure: US OB BPP w non-stress Biophysical profile. Reason for exam: Gestational diabetes. COMPARISON: BDP 05/02/2025. TECHNIQUE: Transabdominal imaging of the gravid uterus was obtained. FINDINGS: Plumber'S Helper reports a BPP of 8 out of 8. BHAVANI is normal at 13.2 cm. heart rate 161 bpm. US/US OB BPP w non-stress Impression: BPP 8 out of 8. Impression dictated by: Jacinto Rivas Jr., D.O. 05/09/2025 3:51 PM Dictation Location: [place] [address] Electronically authenticated by: [id number] Y Date: 05/09/2025 15:51 Dictated By: Jacinto Rivas M.D. Signed By: 05/09/25 1554 DD/ 1551 TD/TT: Metal Off Bearer: ROCKY HealthcareRadiology Study observation (narrative)NOMS HealthcareUS OB BPP W NON-STRESSOrdered By: Radiologist Radiology on 29-90-7381PI[facility] Work Phone: US OB BPP W NON-STRESSon [phone] [address] Ultrasound Report Signed Patient: CHARLENE PURVIS MR#: [id number] : 1990 Acct:[id number] Age/Sex: 34 / F ADM Date: 05/02/25 Loc: US Attending Dr: Nolan Cortes D.O. Ordering Physician: Nolan Cortes D.O. Date of Service: 05/02/25 Procedure(s): US OB BPP w non-stress Accession Number(s): [id number] cc: Nolan Cortes D.O.; Physician,Non-Staff Nikky [place] [phone] Patient Name: CHARLENE PURVIS MRN: [facility]:[id number] date: 1990 Sex: F Assigned Patient Location: [facility] Current Patient Location: Accession/Order Number: [id number] Exam Date: 05/02/2025 16:28 Report Date: 05/02/2025 [...] Maxwell M.D. 05/02/2025 4:30 PM Dictation Location: [place] [address] Electronically authenticated by: [id number] Y Date: 05/02/2025 16:30 Dictated By: Marquis Maxwell M.D. Signed By: 05/02/25 163 DD/ 163 TD/TT: Metal Off Bearer:TBHRadiology, Radiologist, MD - 05/02/2025 [place] [address] Ultrasound Report Signed Patient: CHARLENE PURVIS MR#: [id number] : 1990 Acct:[id number] Age/Sex: 34 / F ADM Date: 05/02/25 Loc: US Attending Dr: Nolan Cortes D.O. Ordering Physician: Nolan Cortes D.O. Date of Service: 05/02/25 Procedure(s): US OB BPP w non-stress Accession Number(s): [id number] cc: Nolan Cortes D.O.; Physician,Non-Staff Nikky The [address] [id number] Patient Name: CHARLENE PURVIS MRN: [facility]:[id number] date: 1990 Sex: F Assigned Patient Location: [facility] Current Patient Location: Accession/Order Number: [id number] Exam Date: 05/02/2025 16:28 Report Date: 05/02/2025 [...] Maxwell M.D. 05/02/2025 4:30 PM Dictation Location: [employer] Electronically authenticated by: [id number] Y Date: 05/02/2025 16:30 Dictated By: Marquis Maxwell M.D. Signed By: 05/02/25 163 DD/ 29 TD/TT: Metal Off Bearer: ROCKY HealthcareRadiology Study observation (narrative)NOMS HealthcareUS OB BPP W NON-STRESSOrdered By: Radiologist Radiology on 09-43-7114[facility] Work Phone: Urinalysis macro (dipstick) panel [...] mg/dLNOMS HealthcareNOMS HealthcareUS OB BPP W NON-STRESSon 82-20-5122[address] [address] Ultrasound Report Signed Patient: CHARLENE PURVIS MR#: [id number] : 1990 Acct:[id number] Age/Sex: 34 / F ADM Date: 04/25/25 Loc: US Attending Dr: Nolan Cortes D.O. Ordering Physician: Nolan Cortes D.O. Date of Service: 04/25/25 Procedure(s): US OB BPP w non-stress Accession Number(s): [id number] cc: Nolan Cortes D.O.; Physician,Non-Staff Nikky The [place] [phone] Patient Name: CHARLENE PURVIS MRN: [id number] date: 1990 Sex: F Assigned Patient Location: [facility] Current Patient Location: Accession/Order Number: [id number] Exam Date: 04/25/2025 21:35 Report Date: 04/25/2025 [...] Olvera M.D. 04/25/2025 9:36 PM Dictation Location: [facility] Electronically authenticated by: [id number] Y Date: 04/25/2025 21:36 Dictated By: Harlan Olvera D.O. Signed By: 04/25/252137 DD/ 35 TD/TT: Metal Off Bearer:FARHATadiologshoaib, Radiologist, - 04/25/2025 [facility] [place] [id number] Ultrasound Report Signed Patient: CHARLENE PURVIS MR#: [id number] : 1990 Acct:[id number] Age/Sex: 34 / F ADM Date: 04/25/25 Loc: US Attending Dr: Nolan Cortes D.O. Ordering Physician: Nolan Cortes D.O. Date of Service: 04/25/25 Procedure(s): US OB BPP w non-stress Accession Number(s): [id number] cc: Nolan Cortes D.O.; Physician,Non-Staff Nikky [place] [phone] Patient Name: CHARLENE PURVIS MRN: [id number] date: 1990 Sex: F Assigned Patient Location: [facility] Current Patient Location: Accession/Order Number: [id number] Exam Date: 04/25/2025 21:35 Report Date: 04/25/2025 [...] Olvera M.D. 04/25/2025 9:36 PM Dictation Location: [place] [address] Electronically authenticated by: [id number] Y Date: 04/25/2025 21:36 Dictated By: Harlan Olvera D.O. Signed By: 04/25/252137 DD/ 35 TD/TT: Metal Off Bearer: ROCKY HealthcareRadiology Study observation (narrative)NOMChip HealthcareUS OB BPP W NON-STRESSOrdered By: Radiologist Radiology on 69-67-4886SW[facility] Work Phone: US OB BPP W NON-STRESSon 37-03-2581FbmMin[place] [address] Ultrasound Report Signed Patient: CHARLENE PURVIS#: [id number] : 1990 Acct:[id number] Age/Sex: 34 / F ADM Date: 04/18/25 Loc: US Attending Dr: Nolan Cortes D.O. Ordering Physician: Nolan Cortes D.O. Date of Service: 04/18/25 Procedure(s): US OB BPP w non-stress Accession Number(s): [id number] cc: Nolan Cortes D.O.; Physician,Non-Staff Nikky [facility] [place] [address] Patient Name: CHARLENE PURVIS MRN: [facility]:[id number] date: 1990 Sex: F Assigned Patient Location: [facility] Current Patient Location: Accession/Order Number: [id number] Exam Date: 04/18/2025 16:06 Report Date: 04/18/2025 [...] Olvera M.D. 04/18/2025 4:07 PM Dictation Location: [place] [address] Electronically authenticated by: [id number] Y Date: 04/18/2025 16:07 Dictated By: Halran Olvera D.O. Signed By: 04/18/25 1609 DD/ 1607 TD/TT: Metal Off Bearer:FARHATadiologshoaib, Radiologist, - 04/18/2025 [place] [address] Ultrasound Report Signed Patient: CHARLENE PURVIS MR#: [id number] : 1990 Acct:[id number] Age/Sex: 34 / F ADM Date: 04/18/25 Loc: US Attending Dr: Nolan Cortes D.O. Ordering Physician: Nolan Cortes D.O. Date of Service: 04/18/25 Procedure(s): US OB BPP w non-stress Accession Number(s): [id number] cc: Nolan Cortes D.O.; Physician,Non-Staff Nikky [place] [address] Patient Name: CHARLENE PURVIS MRN: [facility]:[id number] date: 1990 Sex: F Assigned Patient Location: [facility] Current Patient Location: Accession/Order Number: [id number] Exam Date: 04/18/2025 16:06 Report Date: 04/18/2025 [...] Olvera M.D. 04/18/2025 4:07 PM Dictation Location: [place] [address] Electronically authenticated by: [id number] Y Date: 04/18/2025 16:07 Dictated By: Harlan Olvera D.O. Signed By: 04/18/25 1609 DD/ 1607 TD/TT: Metal Off Bearer: NOMChip HealthcareRadiology Study observation (narrative)NOMS HealthcareUS OB BPP W NON-STRESSOrdered By: Radiologist Radiology on 00-17-1327[employer] Work Phone: Urinalysis macro (dipstick) panel (U)on 04-18-2025 Bilirubin, UANegativeNegative - 4(70) +++ mg/dLNOMS HealthcareBlood, UANegative Negative - 50 Eliceo/mcLNOMS HealthcareClarity, UAClearNOMS HealthcareColor, UA Light YellowNOIA HealthcareGlucose, UAPositiveNegative - 2000(110) ++++ mg/dL NOMS HealthcareComment on above:250Interpretation and review of laboratory resultsAbnormalNOMS HealthcareKetones, UAPositiveNegative - 160(16) ++++ mg/dL NOMS HealthcareComment on above:15Leukocytes, UAPositiveNegative - 500+++ Danielle/mcLNOMS HealthcareComment on above:smallNitrite, UANegativeNegative - PositiveNOMS HealthcarepH, UA65 - 9NOMS HealthcareProtein, UANegativeNegative - 2000(20) ++++ mg/dLNOIA HealthcareSpec Grav, UA1.0051 - 1.03[facility] Urobilinogen, UA0.20.2 - 12 mg/dLNOIA HealthcareNOMS HealthcareUS OB BPP W NON-STRESSon 14-71-4630JrkMin[place] [address] Ultrasound Report Signed Patient: CHARLENE PURVIS MR#: [id number] : 1990 Acct:[id number] Age/Sex: 34 / F ADM Date: 04/11/25 Loc: US Attending Dr: Nolan Cortes D.O. Ordering Physician: Nolan Cortes D.O. Date of Service: 04/11/25 Procedure(s): US OB BPP w non-stress Accession Number(s): [id number] cc: Nolan Cortes D.O.; Physician,Non-Staff M.DMya The [place] [phone] Patient Name: CHARLENE PURVIS MRN: [facility]:[id number] date: 1990 Sex: F Assigned Patient Location: [facility] Current Patient Location: Accession/Order Number: [id number] Exam Date: 04/11/2025 16:04 Report Date: 04/11/2025 [...] Olvera M.D. 04/11/2025 4:05 PM Dictation Location: [place] [address] Electronically authenticated by: [id number] Y Date: 04/11/2025 16:05 Dictated By: Harlan Olvera D.O. Signed By: 04/11/25 1607 DD/ 160 TD/TT: Metal Off Bearer:TBHRadiology, Radiologist, MD - 04/11/2025 [place] [address] Ultrasound Report Signed Patient: CHARLENE PURVIS MR#: [id number] : 1990 Acct:[id number] Age/Sex: 34 / F ADM Date: 04/11/25 Loc: US Attending Dr: Nolan Cortes D.O. Ordering Physician: Nolan Cortes D.O. Date of Service: 04/11/25 Procedure(s): US OB BPP w non-stress Accession Number(s): [id number] cc: Nolan Cortes D.O.; Physician,Non-Staff [place] [facility] [place] [id number] Patient Name: CHARLENE PURVIS MRN: [facility]:[id number] date: 1990 Sex: F Assigned Patient Location: [facility] Current Patient Location: Accession/Order Number: [id number] Exam Date: 04/11/2025 16:04 Report Date: 04/11/2025 [...] Olvera M.D. 04/11/2025 4:05 PM Dictation [facility] Electronically authenticated by: [id number] Y Date: 04/11/2025 16:05 Dictated By: Harlan Olvera D.O. Signed By: 04/11/25 160 DD/ 04 TD/TT: Metal Off Bearer: [facility] HealthcareRadiology Study observation (narrative)[facility] HealthcareUS OB BPP W NON-STRESSOrdered By: Radiologist Radiology on 78-93-9060EOHD Healthcare Work Phone: Urinalysis macro (dipstick) panel (U)on 04-05-2025 Bilirubin, UANegativeNegative - 4(70) +++ mg/dLNOMS HealthcareBlood, UANegative Negative - 50 Eliceo/mcLNOMS HealthcareClarity, UAClearNOMS HealthcareColor, UA YellowNOMS HealthcareGlucose, UAPositiveNegative - 2000(110) ++++ mg/dLNOIA HealthcareComment on above:100mg/dLInterpretation and review of laboratory resultsAbnormalNOMS HealthcareKetones, UAPositiveNegative - 160(16) ++++ mg/dL [facility] HealthcareComment on above:TraceLeukocytes, UAPositiveNegative - 500+++ Danielle/mcLNOMS HealthcareComment on above:smallNitrite, UANegativeNegative - PositiveNOMS HealthcarepH, UA65 - 9NOMS HealthcareProtein, UATraceNegative - 2000(20) ++++ mg/dLNOMS HealthcareSpec Grav, UA1.0251 - 1.03N[facility]S Healthcare Urobilinogen, UA0.20.2 - 12 mg/dLNOIA HealthcareNOMS HealthcarePOCT Hemoglobin A1con 93-66-0397HnU1x (Bld) [Mass fraction]5.8 %4 - 7 %[facility] SystemUS OB INCOMPLETE ANATOMYon 09-52-5219[address] [address] Ultrasound Report Signed Patient: CHARLENE PURVIS MR#: [id number] : 1990 Acct:[id number] Age/Sex: 34 / F ADM Date: 03/05/25 Loc: US Attending Dr: Nolan Cortes D.O. Ordering Physician: Nolan Cortes D.O. Date of Service: 03/05/25 Procedure(s): US OB incomplete anatomy Accession Number(s): [id number] cc: Nolan Cortes D.O.; Physician,Non-Staff Nikky The [place] [address] Patient Name: CHARLENE PURVIS MRN: [id number] date: 1990 Sex: F Assigned Patient Location: US Current Patient Location: Accession/Order Number: [id number] Exam Date: 03/07/2025 12:39 Report Date: 03/07/2025 [...] Jr., D.O. 03/07/2025 12:42 PM Dictation Location: [place] [address] Electronically authenticated by: [id number] Y Date: 03/07/2025 12:42 Dictated By: Jacinto Rivas M.D. Signed By: 03/07/25 1244 DD/ 1242 TD/TT: Metal Off Bearer:FARHATadiologshoaib, Radiologist, - 03/07/2025 [place] [address] Ultrasound Report Signed Patient: CHARLENE PURVIS MR#: [id number] : 1990 Acct:[id number] Age/Sex: 34 / F ADM Date: 03/05/25 Loc: US Attending Dr: Nolan Cortes D.O. Ordering Physician: Nolan Cortes D.O. Date of Service: 03/05/25 Procedure(s): US OB incomplete anatomy Accession Number(s): [id number] cc: Nolan Cortes D.O.; Physician,Non-Staff [place] [address] Patient Name: CHARLENE PURVIS MRN: [id number] date: 1990 Sex: F Assigned Patient Location: US Current Patient Location: Accession/Order Number: [id number] Exam Date: 03/07/2025 12:39 Report Date: 03/07/2025 [...] Jr., D.O. 03/07/2025 12:42 PM Dictation Location: [facility] Electronically authenticated by: [id number] Y Date: 03/07/2025 12:42 Dictated By: Jacinto Rivas M.D. Signed By: 03/07/25 1244 DD/ 1242 TD/TT: Metal Off Bearer: ROCKY HealthcareRadiology Study observation (narrative)[facility]OMChip HealthcareUS OB INCOMPLETE ANATOMYOrdered By: Radiologist Radiology on 20-92-0866AGNB Healthcare Work Phone: Urinalysis macro (dipstick) panel [...] mg/dLNOMS HealthcareNOMS HealthcareGlucose random or fasting- POCTon 86-61-8827Njhbgdfy Glucose Fasting Or Random (Fbs)110[facility] SystemUS OB 14+ WEEKS ANATOMY SCANon 91-71-4184HK OB 14+ WEEKS ANATOMY SCANEXAM: US OB [...] at 15-Feb-2025 11:25:23 PM [facility] TeleradiologyNormalNot AvailableComment on above:Order Comment: US OB ANATOMY SINGLE W US OB CERVICAL LENGTH Estimated Date of Delivery: 06/24/25 Gestational Age as of 12/06/2024: 90f4oRIQ, SERUM, OPEN SPINA BIFIDAon 02-09-2025 AFP MOM0.84.NOMS HealthcareAFP VALUE34.5 ng/mL.NOMS HealthcareCOMMENT:Comment. NOMS HealthcareComment on above:Tiffany Shah, Ph.D., [facility] Director References: Available Upon Request. Multiples Of Median Cutoffs For AFP Elevations Steiner 2.5 Black 2.8 IDD 2.0 Twins 4.5 Abbreviation Definitions IDD - Insulin Dep Diabetes OSBR - Open Spina Bifida Risk For further inquiries contact [employer] at [phone]. This test was developed and its performance characteristics determined by [employer]. It has not been cleared or approved by the Food and Drug Administration. Performed at: [facility] [address] [place], [place] [id number] Solar Sales Representative: Rogelio Rice [facility], Phone: [phone] GEST. AGE ON COLLECTION DATE20.4. weeksNOIA HealthcareGESTAT. AGE BASED ONLMP. [facility] Summit HospitalComment on above:Recalculations are not recommended when gestational dating by LMP and ultrasound are within 10 days. INSULIN DEP DIABETESNo.[facility] HealthcareINTERPRETATIONComment.[facility] Comment on above:Interpretation: Screen Negative This [...] Customer Services to discuss available options. The [employer] recommends amniocentesis be offered to women age 35 and older. MATERNAL AGE AT EDD32.5. yrNOIA HealthcareMULTIPLE GESTATIONNo.[facility] OSBR RISK 1 [id number].[facility] HealthcareRACECaucasian.[facility] HospitalRESULTSReport. [facility] HospitalTEST RESULTS:Negative.[facility] HospitalRkspxydqxpPVALUD698. lbsNOIA HealthcarePREGNANCY N N LMP [id number] 3 18 N 1 Y 289 N N N N N White/ CLINISYNCNOIA HealthcareChlamydia/GC by PCR Holley Swabon 02-83-2801Nzenvapnatn Dna(Pcr)Not detectedProSycamore Medical Center SystemChlamydia/GC by PCR ThinPrep fluidon 18-87-0195Chhxpgdrv Dna(Pcr)Not detectedProSycamore Medical Center SystemNo Panel Informationon 66-42-8110UpjHxyfeiMarion HospitalALL CBC WITH AUTO DIFFon 35-90-3646DXPGIVNRV ABSOLUTE LRHL5IMJY HealthcareBasophils/100 WBC (Bld)0.3 %0.2 - 2.0 %NOMMercy Hospital St. LouisEosinophils/100 WBC (Bld)3.7 %0.9 - 7.0 %[facility] Erythrocyte distribution width (RBC) [Ratio]13.1 %11.0 - 15.0 %[facility] IMMATURE GRANULOCYTES ABS AUTO0.04HighNOIA HealthcareImmature granulocytes/100 WBC (Bld)0.4 %0.0 - 0.5 %[facility] HospitalInterpretation and review of laboratory resultsAbnormalLee's Summit HospitalLYMPHOCYTES ABSOLUTE KEPK6OSLKCoxHealth Lymphocytes/100 WBC (Bld)21.3 %20.5 - 60.0 %[facility] MonettH (RBC) [Entitic mass]32.6 pg26.7 - 34.0 pgCox MonettHC (RBC) [Mass/Vol]34.8 g/dL29.9 - 35.2 g/dLCox MonettV (RBC) [Entitic vol]93.6 fL81.0 - 99.0 fLLee's Summit HospitalMONOCYTES ABSOLUTE AUTO0.5NOCoxHealthMonocytes/100 WBC (Bld)5.1 % 1.7 - 12.0 %[facility] HospitalNEUTROPHILS ABSOLUTE AUTO6.4NOCoxHealth Neutrophils/100 WBC (Bld)69.2 %43.0 - 75.0 %[facility] HospitalPlatelet mean volume (Bld) [Entitic vol]10.6 fL9.5 - 13.5 fLLee's Summit HospitalTBH EO #0.3NOMS Healthcare TBH ISC025IcnRQSTMadison Medical Center RBC4.36NOCoxHealthTB WBC9.2[facility] Healthcare CLINISYNCCBC without diffon 49-52-6227Pfwsybabr (Bld) [#/Vol]139 10*3/uL Cherrington HospitalGlucose tolerance, 1 houron 65-66-8593Clkvmrn Tolerance Test 1 Megf305AncYlfgspCherrington HospitalLaboratory - Hematology and Cell countson 61-94-0195Uzttalgeve (Bld) [Volume fraction]40.8 %[facility] HospitalHemoglobin (Bld) [Mass/Vol]14.2 g/dLLee's Summit HospitalNo Panel Informationon 91-30-0984BVSULee's Summit HospitalUrinalysis macro (dipstick) panel (U)on 04-80-4603Vdamybvin, UA NegativeNegative - 4(70) +++ mg/dLVAL[facility] HealthcareBlood, UANegativeNegative - 50 Eliceo/mcLNOIA HealthcareClarity, UAClearNOMS HealthcareColor, UAYellowNOMS HealthcareGlucose, UAPositiveNegative - 2000(110) ++++ mg/dLNOMS Healthcare Comment on above:250mg/dLInterpretation and review of laboratory resultsAbnormal [facility] HospitalKetones, UANegativeNegative - 160(16) ++++ mg/dLLee's Summit Hospital Leukocytes, UATraceNegative - 500+++ Danielle/mcLNOCoxHealthNitrite, UANegative Negative - PositiveNOMS HealthcarepH, UA65 - 9NOIA HealthcareProtein, UAPositive Negative - 2000(20) ++++ mg/dLLee's Summit HospitalComment on above:30mg/dLSpec Grav, UA1.031 - 1.03NOIA HealthcareUrobilinogen, UA0.20.2 - 12 mg/dLNovant Health Mint Hill Medical CenterALL CBC WITH AUTO DIFFon 50-30-0965AZHABTTHB ABSOLUTE JUQA0YZAJCoxHealthBasophils/100 WBC (Bld)0.3 %0.2 - 2.0 %[facility] HospitalEosinophils/100 WBC (Bld)4.4 %0.9 - 7.0 %[facility] HospitalErythrocyte distribution width (RBC) [Ratio]12 %11.0 - 15.0 %[facility] HospitalIMMATURE GRANULOCYTES ABS AUTO0.03NOCoxHealthImmature granulocytes/100 WBC (Bld)0.3 %0.0 - 0.5 %[facility] LYMPHOCYTES ABSOLUTE AUTO2.1NOMS [facility]beigh HospitalLymphocytes/100 WBC (Bld)24.6 %20.5 - 60.0 %[facility] MonettH (RBC) [Entitic mass]31.7 pg26.7 - 34.0 pgCox MonettHC (RBC) [Mass/Vol]34.4 g/dL29.9 - 35.2 g/dLCox MonettV (RBC) [Entitic vol]92.1 fL81.0 - 99.0 fLLee's Summit HospitalMONOCYTES ABSOLUTE AUTO0.6NOIA HealthcareMonocytes/100 WBC (Bld)6.9 %1.7 - 12.0 %[facility] HospitalNEUTROPHILS ABSOLUTE AUTO5.5NOCoxHealthNeutrophils/100 WBC (Bld)63.5 %43.0 - 75.0 %[facility] HospitalPlatelet mean volume (Bld) [Entitic vol]9.9 fL9.5 - 13.5 fLVAL[facility]IEW [facility] HealthcareTBH EO #0.4NOMS HealthcareTBH MWR370VZAL HealthcareTBH RBC4.8NOMS HealthcareTBH WBC8.7NOMS HealthcareCLINISYNCCBC without diffon 11-27-2024 Platelets (Bld) [#/Vol]209 10*3/uLProMedica Health SystemDrug Screen, Urineon 88-54-0974Wwrzohwldvv/MethamphetamineNegativeProMedica Health SystemBarbiturates NegativeProMedica Health SystemBenzodiazepinesNegativeProMedica Health System Cocaine MetaboliteNegativeProMedica Health SystemMethadoneNegativeProMedica Health SystemOpiatesNegativeProMedica Health SystemOxycodoneNegativeProMedica Health SystemPhencyclidineNegativeProMedica Health SystemThc Marijuana, Urine NegativeGifford Medical CenterMedica Health SystemFetal Free Cell DNAon 75-53-8365Tmvsj Free Cell DnaLOW RISKProMedica Health SystemHIV 1&2 AB/AG Screen (P24 AG)on 19-48-4640ZON 1&2 AB/AGNon-ReactiveUniversity Hospitals St. John Medical Centerca [facility] SystemHemoglobin A1con 73-77-8959ZsX8h (Bld) [Mass fraction]5.5 %4.0 - 6.0 %[facility] Systemedica Health SystemComment on above: AVERAGE GLUCOSE 111Hepatitis B surface antigenon 59-45-7128Fesrzmbsb B Surface AntigenNegativeUniversity Hospitals St. John Medical Centerca Health SystemLaboratory - Hematology and Cell countson 15-08-5712Jdwyoocquu (Bld) [Volume fraction]44.2 %NOMS HealthcareHemoglobin (Bld) [Mass/Vol]15.2 g/dLNOIA HealthcareNo Panel Informationon 48-11-9241LDZO HealthcareRubella IGG immune statuson 66-51-9709Kmfzjmx immune IgG1.4Gifford Medical CenterMedica Health SystemSyphilis Total(Unknown Syphilis Status)on 94-74-4277Hrkacnnk Non-ReactiveGifford Medical CenterMedica Health SystemType and screenon 47-17-7109Lwo/Rh(D)Negative ProMedica Health SystemUS OB TRANSVAGINALon 68-84-6820[place]yn[place] [address] Ultrasound Report Signed Patient: CHARLENE PURVIS MR#: [id number] : 1990 Acct:[id number] Age/Sex: 34 / F ADM Date: 11/26/24 Loc: US Attending Dr: Nolan Cortes D.O. Ordering Physician: Nolan Cortes D.O. Date of Service: 11/26/24 Procedure(s): US OB transvaginal Accession Number(s): [id number] cc: Nolan Cortes D.O.; Physician,Non-Staff M.[place] [address] Patient Name: CHARLENE PURVIS MRN: [id number] date: 1990 Sex: F Assigned Patient Location: US Current Patient Location: US Accession/Order Number: [id number] Exam Date: 11/26/2024 08:36 Report Date: 11/26/2024 09:35 At the request of: NOLAN CORTES Procedure: US OB transvaginal EXAMINATION: US [...] Ultrasound follow-up is recommended. Electronically authenticated by: YOMAIRA GONZALEZ Date: 11/26/2024 09:35 Dictated By: Yomaira Gonzalez M.D. Signed By: 11/26/24 0937 DD/ TD/TT: Metal Off Bearer:TBHRadiology, Radiologist, - 11/26/[address] [address] Ultrasound Report Signed Patient: CHARLENE PURVIS MR#: [id number] : 1990 Acct:[id number] Age/Sex: 34 / F ADM Date: 11/26/24 Loc: US Attending Dr: Nolan Cortes D.O. Ordering Physician: Nolan Cortes D.O. Date of Service: 11/26/24 Procedure(s): US OB transvaginal Accession Number(s): [id number] cc: Nolan Cortes D.O.; Physician,Non-Staff Nikky The [address] [address] Patient Name: CHARLENE PURVIS MRN: [id number] date: 1990 Sex: F Assigned Patient Location: US Current Patient Location: US Accession/Order Number: [id number] Exam Date: 11/26/2024 08:36 Report Date: 11/26/2024 09:35 At the request of: NOLAN CORTES Procedure: US OB transvaginal EXAMINATION: US [...] Ultrasound follow-up is recommended. Electronically authenticated by: YOMAIRA GONZALEZ Date: 11/26/2024 09:35 Dictated By: Yomaira Gonzalez M.D. Signed By: 11/26/2437 DD/ TD/TT: Metal Off Bearer: ROCKY HealthcareRadiology Study observation (narrative)[facility] HealthcareUS OB TRANSVAGINALOrdered By: Radiologist Radiology on 14-05-3420[employer] Work Phone: US PELVIS W/ TRANSVAGINALon 85-25-6594AymMin[place] [address] Ultrasound Report Signed Patient: CHARLENE PURVIS MR#: [id number] : 1990 Acct:[id number] Age/Sex: 33 / F ADM Date: 04/27/24 Loc: US Attending Dr: Nolan Cortes D.O. Ordering Physician: Nolan Cortes D.O. Date of Service: 04/27/24 Procedure(s): US pelvis w/ transvaginal Accession Number(s): [id number] cc: Nolan Cortes D.O.; Physician,Non-Staff Nikky [place] [id number] Patient Name: CHARLENE PURVIS MRN: [id number] date: 1990 Sex: F Assigned Patient Location: Current Patient Location: Accession/Order Number: [id number] Exam Date: 04/27/2024 14:00 Report Date: 04/28/2024 13:16 At the request of: NOLAN CORTES Procedure: US pelvis w/ transvaginal EXAM: [...] correlation is suggested. Electronically authenticated by: EMMIE JHAVERI Date: 04/28/2024 13:16 Dictated By: Emmie Jhaveri M.D. Signed By: 04/28/24 1319 DD/ 1316 TD/TT: Metal Off Bearer:TBHRadiology, Radiologist, - 04/28/2024 [place] [address] Ultrasound Report Signed Patient: CHARLENE PURVIS MR#: [id number] : 1990 Acct:[id number] Age/Sex: 33 / F ADM Date: 04/27/24 Loc: US Attending Dr: Nolan Cortes D.O. Ordering Physician: Nolan Cortes D.O. Date of Service: 04/27/24 Procedure(s): US pelvis w/ transvaginal Accession Number(s): [id number] cc: Nolan Cortes D.O.; Physician,Non-Staff Nikky The [address] [address] Patient Name: CHARLENE PURVIS MRN: [facility]:[id number] date: 1990 Sex: F Assigned Patient Location: US Current Patient Location: Accession/Order Number: [id number] Exam Date: 04/27/2024 14:00 Report Date: 04/28/2024 13:16 At the request of: NOLAN CORTES Procedure: US pelvis w/ transvaginal EXAM: [...] correlation is suggested. Electronically authenticated by: EMMIE JHAVERI Date: 04/28/2024 13:16 Dictated By: Emmie Jhaveri M.D. Signed By: 04/28/24 131 DD/ 15 TD/TT: Metal Off Bearer: ROCKY [facility]beigh HospitalRadiology Study observation (narrative)[facility] HealthcareUS PELVIS W/ TRANSVAGINALOrdered By: Radiologist Radiology on 79-02-6478[employer]DT[employer] Work Phone: GTT 3 HR PREGon 26-89-7816Vczhxnh [Mass/Vol]107 mg/dL Critically ifkg91-737SvjWestern Reserve HospitalComment on above:Performed By: #### GTT3P #### [facility] [address] [place] [address] Dr. Loyd CoppolaGlucose [Mass/Vol]203 mg/dLPremier HealthComment on above:Performed By: #### GTT3P #### [facility] [address] [place] [address] [address] Loyd CoppolaGlucose [Mass/Vol]191 mg/dLPremier HealthComment on above:Performed By: #### GTT3P #### [facility] [address] [place] [address] [address] Loyd CoppolaGlucose [Mass/Vol]121 mg/dLPremier HealthComment on above:Performed By: #### GTT3P #### [facility] [address] [place] [address] Dr. Loyd Hussein MATERNAL FOR SPINA BIFIDAon 05-05-8468CPX MoM0.70Premier HealthComment on above:Performed By: #### JAIME UMICRO #### [facility] [address] [place] [address] [address] Loyd Hussein Value18.1 ng/mLNBarnesville HospitalComment on above: Performed By: #### JAIME UMICRO #### [facility] [address] [place] [address] [address] Loyd Hussein, Serum for Spina BifidaReRegency Hospital Company Comment on above:Performed By: #### JAIME UMICRO #### [facility] [address] [place] [address] [address] Loyd ServinOhioHealth Nelsonville Health CenterComascension st. john hospital on above:Result Comment: Tiffany Shah, Ph.D., [facility] Director . References: Available Upon Request. . Multiples Of Median Cutoffs For AFP Elevations Steiner 2.5 Black 2.8 IDD 2.0 Twins 4.5 Abbreviation Definitions IDD - Insulin Dep Diabetes OSBR - Open Spina Bifida Risk . For further inquiries contact [employer] at [phone]. . This test was developed and its performance characteristics determined by [employer]. It has not been cleared or approved by the Food and Drug Administration.Performed By: #### JAIME UMICRO #### [facility] [address] [place] [address] Dr. Loyd Mac Age Collection Date16.4 weeksPremier Health Comment on above:Performed By: #### JAIME UMICRO #### [facility] [address] [place] [address] [address] Loyd Basilio, Age Based onAs [facility] Berger HospitalComment on above:Result Comment: Recalculations are not recommended when gestational dating by LMP and ultrasound are within 10 days.Performed By: #### JAIME UMICRO #### [facility] [address] [place] [address] [address] Loyd Delvalle Dep DiabetesNoNBarnesville HospitalComment on above:Performed By: #### JAIME UMICRO #### [facility] [address] [place] [address] [address] Loyd CoppolaInterpretationCommentTrumbull Memorial Hospital on above: Result Comment: Interpretation: Screen Negative [...] Customer Services to discuss available options. The [employer]ians [employer] Gynec[employer] recommends amniocentesis be offered to women age 35 and older.Performed By: #### JAIME UMICRO #### [facility] [address] [place] [address] Dr. Loyd CoppolaMaternal Age at EDD30.7 yrTrumbull Memorial Hospital on above:Performed By: #### JAIME UMICRO #### [facility] [address] [place] [address] Dr. Loyd Gama GestationNoNBarnesville HospitalComascension st. john hospital on above: Performed By: #### JAIME UMICRO #### [facility] [address] [place] [address] Dr. Loyd CoppolaOSBR Risk 1 [id number] HealthComascension st. john hospital on above: Performed By: #### JAIME UMICRO #### [facility] [address] [place] [address] Dr. Loyd Fonseca.NormalWestern Reserve HospitalComascension st. john hospital on above:Performed By: #### JAIME UMICRO #### [facility] [address] [place] [address] Dr. Loyd BaileyucasianNCherrington Hospital on above: Performed By: #### JAIME UMICRO #### [facility] [address] [place] [address] Dr. Loyd CoppolaTest Results:NegativePremier HealthComment on above: Performed By: #### JAIME UMICRO #### [facility] [address] [place] [address] Dr. Loyd CoppolaGLUCOSE - 1HRon 77-44-9910Ssceqrl [Mass/Vol]165 mg/dLCritically ewun71-043WteWestern Reserve HospitalComascension st. john hospital on above:Performed By: #### GLU1HR #### [facility] [address] [place] [address] Dr. Loyd Osullivan ACOG PANEL 2: 30 to 65on 02-19-2023..NormalThe [facility]Comasc[facility] on above:Result Comment: Performed at: WBPerformed By: #### JAIME UMICRO #### [facility] [address] [place] [address] Dr. Loyd Martinez Gdln ACOG Vdzcdxd41-81ZzsgijDgxThe MetroHealth SystemComment on above:Performed By: #### JAMIE UMICRO #### [facility] [address] [place] [address] Dr. Loyd CoppolaDIAGNOSIS:CommentTrumbull Memorial Hospital on above: Result Comment: NEGATIVE FOR INTRAEPITHELIAL LESION OR MALIGNANCY. Performed at: WBPerformed By: #### JAIME UMICRO #### [facility] [address] [place] [address] Dr. Loyd CoppolaHPGeronimo AptimaNegativeNormalNegativeWestern Reserve HospitalComascension st. john hospital on above:Result Comment: This nucleic acid amplification test detects fourteen high-risk HPV types (16,18,31,33,35,39,45,51,52,56,58,59,66,68) without differentiation. Performed at: =GPerformed By: #### JAIME UMICRO #### [facility] [address] [place] [address] Dr. Loyd CoppolaHPV Genotype ReflexCommentPremier HealthComascension st. john hospital on above:Result Comment: Criteria not met, HPV Genotype not performed. Performed at: WBPerformed By: #### JAIME UMICRO #### [facility] [address] [place] [address] Dr. Loyd CoppolaMethodology:CommentTrumbull Memorial Hospital on above: Result Comment: This liquid based ThinPrep(R) pap test was screened with the use of an image guided system. Performed at: WBPerformed By: #### ERUR, UMICRO #### [facility] [address] [place] [address] Dr. Loyd CoppolaNote:CommentTrumbull Memorial Hospital on above:Result Comment: The Pap smear is a screening test designed to aid in the detection of premalignant and malignant conditions of the uterine cervix. It is not a diagnostic procedure and should not be used as the sole means of detecting cervical cancer. Both false-positive and false-negative reports do occur. . Performed at: WBPerformed By: #### ERUR, UMICRO #### [place] [address] Dr[address] Loyd CoppolaPerformed by:CommentTrumbull Memorial Hospital on above: Result Comment: Lizett Kirkpatrick, Rerecording Mixer (ASCP) Performed at: WBPerformed By: #### ERUR, UMICRO #### [place] [address] Dr[address] Loyd CoppolaSpecimen adequacy:CommentTrumbull Memorial Hospital on above:Result Comment: Satisfactory for evaluation. No endocervical component is identified. Performed at: WBPerformed By: #### ERUR, UMICRO #### [facility] [address] [place] [address] Dr. Loyd CoppolaUS PREG CERVICAL LENGTHon 28-22-1004CS PREG CERVICAL LENGTH EXAMINATION: US PREG CERVICAL [...] Electronically authenticated by: YOMAIRA GONZALEZ Date: 2023-02-18 15:51Premier HealthCHLAMYDIA/GONOCOCCUS ANTONELLA (SWAB/URINE/PAPon 29-57-0692Jjspctrsm trachomatis, NAANegativeNormalNegativeWestern Reserve HospitalComment on above: Performed By: #### CT/NGNA #### [facility] [address] [place] [address] Dr. Loyd Stubbsisseria gonorrhoeae, NAANegativeNormalNegativeWestern Reserve HospitalComment on above:Performed By: #### CT/NGNA #### [facility] [address] [place] [address] Dr. Loyd CoppolaVAGINITIS/VAGINOSIS DNA PROBEon 02-36-8284Jlalcms speciesNegative NormalNegativeWestern Reserve HospitalComment on above:Performed By: #### CBC #### [facility] [address] [place] [address] Dr. Loyd Raydnerella vaginalisNegativeAptosNegativeWestern Reserve Hospital Comment on above:Performed By: #### CBC #### [facility] [address] [place] [address] Dr. Loyd CoppolaTrichomonas vaginalisNegativeAptosNegDiley Ridge Medical Center Comment on above:Performed By: #### CBC #### [facility] [address] [place] [address] Dr. Loyd Herbert B SURFACE ANTIGEN SCREENon [id number] ScreenNegative NormalNegativeWestern Reserve HospitalComment on above:Performed By: #### HBSANS #### [facility] [address] [place] [address] Dr. Loyd Brady C VIRUS AB W/ REFLEX QUANTon [id number] AB Non-ReactiveNormalNon ReactiveWestern Reserve HospitalComment on above:Performed By: #### CBC #### [facility] [address] [place] [address] Dr. Loyd CoppolaInterpretation:[facility] Nelsonville Health CenterComment on above:Result Comment: Not infected with HCV unless early or acute infection is suspected (which may be delayed in an immunocompromised individual), or other evidence exists to indicate HCV infection.Performed By: #### CBC #### [facility] [address] [place] [address] Dr. Loyd Abarca 1 AND 2 WITH REFLEXon [id number] Screen 4th Generation wRfxNon-ReactiveNormalNon ReactiveThe [facility] on above:Result Comment: HIV Negative HIV-1/HIV-2 antibodies and HIV-1 p24 antigen were NOT detected. There is no laboratory evidence of HIV infection.Performed By: #### CBC #### [facility] [address] [place] [address] Dr. Loyd CoppolaRPR QUANTon 74-31-8222Cngkd Plasma Reagin, QuantNon-Reactive NormalNonRea<1:1The [facility] on above:Result Comment: Please Note: This test does not meet current guidelines for screening and diagnosis of syphilis. This test is intended for following treatment response in patients being treated for syphilis infection. To screen for syphilis infection, a reflex cascade that includes both RPR and a treponema-specific assay should be utilized, such as Treponema pallidum (Syphilis) Screening [place] (690120) or Rapid Plasma Reagin (RPR) Test With Reflex to Quantitative RPR and Confirmatory Treponema pallidum Antibodies (783488).Performed By: #### JESUS SANDOVAL #### [facility] [address] [place] [address] Dr. Loyd Pinto AB IGGon 02-10-6861Charwqd Antibodies, IgG1.08 index NormalImmune >0.99The [facility] on above:Result Comment: Non- immune <0.90 Equivocal 0.90 - 0.99 Immune >0.99Performed By: #### CBC #### [facility] [address] [place] [address] Dr. Loyd CoppolaBOX TEST SENT OUTon [id number] TO REF [facility]01/31/23[facility] on above:Performed By: #### ERUR, UMICRO #### [facility] [address] [address] [address] Loyd Portillo AUTO DIFFon [id number] #0.0 103/ulNormal0.0-0.1The [facility] Of ColumbusComment on above:Performed By: #### CBC #### [facility] [address] [address] [address] Loyd CoppolaBasophils/100 WBC (Bld)0.2 %Normal0.2-2.0[facility] Comment on above:Performed By: #### CBC #### [facility] [address] [place] [address] Dr. Loyd Carvajal #0.1 103/ulNormal0.0-0.7The [facility] Of ColumbusComment on above: Performed By: #### CBC #### [facility] [address] [place] [address] Dr. Loyd Escuderoosinophils/100 WBC (Bld)1.5 %Normal0.9-7.0[facility] Comment on above:Performed By: #### CBC #### [facility] [address] [place] [address] Dr. Loyd Escuderorythrocyte distribution width (RBC) [Ratio]12.3 %Odoams16.0-15.0 The [facility] Of ColumbusComment on above:Performed By: #### CBC #### [facility] [address] [place] [address] Dr. Loyd CoppolaHematocrit (Bld) [Volume fraction]39.3 %Xfnkqv44.0-48.0The [facility] Of ColumbusComment on above:Performed By: #### CBC #### [facility] [address] [place] [address] Dr. Loyd CoppolaHemoglobin (Bld) [Mass/Vol]14.3 g/aVCdctbr38.0-16.0Western Reserve HospitalComment on above:Performed By: #### CBC #### [facility] [address] [place] [address] Dr. Loyd Pickard #0.03 10e3/ulNormal0.00-0.03The [facility] Of ColumbusComment on above:Performed By: #### CBC #### [facility] [address] [place] [address] Dr. Loyd Pickard %0.3 %Normal0.0-0.5The [facility] Of ColumbusComment on above: Performed By: #### CBC #### [facility] [address] [place] [address] Dr. Loyd Nowak #2.3 103/ulNormal1.2-3.8The [facility] Of ColumbusComment on above:Performed By: #### CBC #### [facility] [address] [place] [address] Dr. Loyd Panhocytes/100 WBC (Bld)24.8 %Aklngc79.5-60.0The [facility] Of ColumbusComment on above:Performed By: #### CBC #### [facility] [address] [place] [address] Dr. Loyd Vieira DIFF REQNONormalThe [facility]'S Hospital Of ColumbusComment on above: Performed By: #### CBC #### [facility] [address] [place] [address] Dr. Loyd Botello (RBC) [Entitic mass]32.6 dbGuqklu05.7-34.0The [facility] Hospital Of ColumbusComment on above:Performed By: #### CBC #### [facility] [address] [place] [address] Dr. Loyd Ayala (RBC) [Mass/Vol]36.4 g/dLCritically high29.9-35.2The [facility] Of ColumbusComment on above:Performed By: #### CBC #### [facility] [address] [place] [address] Dr. Loyd Ayala (RBC) [Entitic vol]89.7 wSXbvkud12.0-99.0The [facility] Hospital Of ColumbusComment on above:Performed By: #### CBC #### [facility] [address] [place] [address] Dr. Loyd Suarez #0.5 103/ulNormal0.3-0.8The [facility] Of ColumbusComment on above:Performed By: #### CBC #### [facility] [address] [place] [address] Dr. Loyd Juarezocytes/100 WBC (Bld)5.2 %Normal1.7-12.0The [facility] Comment on above:Performed By: #### CBC #### [facility] [address] [place] [address] Dr. Loyd StubbsUT #6.4 103/ulNormal1.4-6.5The [facility] Hospital Of ColumbusComment on above:Performed By: #### CBC #### [facility] [address] [place] [address] Dr. Loyd Stubbsutrophils/100 WBC (Bld)68.0 %Ndpxtj85.0-75.0The [facility] Hospital Of ColumbusComment on above:Performed By: #### CBC #### [facility] [address] [place] [address] Dr. Loyd CoppolaPlatelet mean volume (Bld) [Entitic vol]10.5 fLNormal9.5-13.5The [facility] Hospital Of ColumbusComment on above:Performed By: #### CBC #### [facility] [address] [place] [address] Dr. Loyd CoppolaPLT171 103/fxCfakwq779-708Znp [facility] Hospital Of ColumbusComment on above: Performed By: #### CBC #### [facility] [address] [place] [address] Dr. Loyd CoppolaRBC4.38 106/ulNormal4.20-5.40The [facility] Hospital Of ColumbusComment on above:Performed By: #### CBC #### [facility] [address] [place] [address] Dr. Loyd CoppolaWBC9.4 103/ulNormal4.0-11.0The [facility] Of ColumbusComment on above: Performed By: #### CBC #### [facility] [address] [place] [address] Dr. Loyd CoppolaCULTURE URINEon 08-28-1369JDOAQOL URINECulture Observations: LIGHT GROWTH OF MIXED GENITAL CASSIDY. NO POTENTIAL PATHOGENS SEEN.NormalThe [facility]'S Hospital Of ColumbusComment on above:Performed By: #### CBC #### [facility] [address] [place] [address] Dr. Loyd Sanchez URINEIsolate 1 Escherichia coli [...] <=16 S F Trimethoprim/Sulfamethoxazole <=20 S FNormalThe [facility]S Hospital Of ColumbusComment on above:Performed By: #### CBC #### [facility] [address] [place] [address] Dr. Loyd CoppolaGLYCOHEMOGLOBIN A1Con 02-49-7209VWC RECOMMENDATIONSEE BELOWNormal The [facility]S Hospital Of ColumbusComment on above:Result Comment: ADA RECOMMENDED LIMIT 4.0 - 6.0 ADA THERAPEUTIC TARGET < 7.0 ACTION SUGGESTED > 7.0Performed By: #### A1C #### [facility] [address] [place] [address] Dr. Loyd CoppolaGlucose [Mass/Vol]100 mg/dLNormalThe [facility] ColumbusComascension [facility] on above:Performed By: #### A1C #### [facility] [address] [place] [address] Dr. Loyd CoppolaHbA1c (Bld) [Mass fraction]5.1 %Normal4.5-6.2The [facility] Hospital Of ColumbusComment on above:Performed By: #### A1C #### [facility] [address] [place] [address] Dr. Loyd EstradaHosy 07-36-0006ERI7.495 uIU/mLNormal0.358-3.740The O[facility] HospitalComment on above:Performed By: #### JESUS SANDOVAL #### [facility] [address] [place] [address] Dr. Loyd Pennington AND SCREENon [id number] AND SCREENNegativeNormalThBluffton HospitalComment on above:Performed By: #### CBC #### [facility] [address] [place] [address] Dr. Loyd Portillo AUTO DIFFon 06-74-2206BZOB #0.0 103/ulNormal0.0-0.1The [facility] Centerment on above:Performed By: #### CBC #### [facility] [address] [place] [address] Dr. Loyd CoppolaBasophils/100 WBC (Bld)0.2 %Normal0.2-2.0[facility] on above:Performed By: #### CBC #### [facility] [address] [place] [address] Dr. Loyd Carvajal #0.1 103/ulNormal0.0-0.7The [facility] on above: Performed By: #### CBC #### [facility] [address] [place] [address] Dr. Loyd Escuderoosinophils/100 WBC (Bld)0.8 %Critically low0.9-7.0[facility] on above:Performed By: #### CBC #### [facility] [address] [place] [address] Dr. Loyd Escuderorythrocyte distribution width (RBC) [Ratio]12.3 %Kscdaz65.0-15.0 [facility] Centerment on above:Performed By: #### CBC #### [facility] [address] [place] [address] Dr. Loyd CoppolaHematocrit (Bld) [Volume fraction]45.0 %Rewykr41.0-48.0[facility] Centerment on above:Performed By: #### CBC #### [facility] [address] [place], [place] [id number] Dr. Loyd CoppolaHemoglobin (Bld) [Mass/Vol]16.3 g/dLCritically high12.0-16.0The [facility] ColumbusComment on above:Performed By: #### CBC #### [facility] [address] [place] [address] Dr. Loyd Pickard #0.03 10e3/ulNormal0.00-0.03The [facility] Of ColumbusComment on above:Performed By: #### CBC #### [facility] [address] [place] [address] Dr. Loyd Pickard %0.4 %Normal0.0-0.5The [facility] Of ColumbusComment on above: Performed By: #### CBC #### [facility] [address] [place] [address] Dr. Loyd Nowak #1.4 103/ulNormal1.2-3.8The [facility] Of ColumbusComment on above:Performed By: #### CBC #### [facility] [address] [place] [address] Dr. Lody Panhocytes/100 WBC (Bld)16.8 %Critically low20.5-60.0The [facility] on above:Performed By: #### CBC #### [facility] [address] [place] [address] Dr. Loyd PenningtonUAL DIFF REQNONormalThe [facility]S Hospital Of ColumbusComment on above: Performed By: #### CBC #### [facility] [address] [place] [address] Dr. Loyd Ayala (RBC) [Entitic mass]32.1 hfBoqnnk59.7-34.0The [facility] Of ColumbusComment on above:Performed By: #### CBC #### [facility] [address] [place] [address] Dr. Loyd Ayala (RBC) [Mass/Vol]36.2 g/dLCritically high29.9-35.2The [facility] ColumbusComment on above:Performed By: #### CBC #### [facility] [address] [address] [address] Loyd AyalaV (RBC) [Entitic vol]88.8 sDVprcqr90.0-99.0The [facility] Centerment on above:Performed By: #### CBC #### [facility] [address] [place] [address] Dr. Loyd Suarez #0.9 103/ulCritically high0.3-0.8The [facility] Comment on above:Performed By: #### CBC #### [facility] [address] [place] [address] Dr. Loyd Juarezocytes/100 WBC (Bld)10.5 %Normal1.7-12.0The [facility] Comment on above:Performed By: #### CBC #### [facility] [address] [place] [address] Dr. Loyd Murrieta #6.0 103/ulNormal1.4-6.5The [facility] Of ColumbusComment on above:Performed By: #### CBC #### [facility] [address] [place] [address] Dr. Loyd Stubbsutrophils/100 WBC (Bld)71.3 %Jgxena17.0-75.0The [facility] Hospital Of ColumbusComment on above:Performed By: #### CBC #### [facility] [address] [place] [address] Dr. Loyd Murillolet mean volume (Bld) [Entitic vol]10.7 fLNormal9.5-13.5The [facility] Of ColumbusComment on above:Performed By: #### CBC #### [facility] [address] [place] [address] Dr. Loyd CoppolaPLT174 103/syWicqhc182-860Erd [facility] ColumbusComment on above: Performed By: #### CBC #### [facility] [address] [place] [address] Dr. Loyd CoppolaRBC5.07 106/ulNormal4.20-5.40The [facility] Of ColumbusComment on above:Performed By: #### CBC #### [facility] [address] [address] [address] Loyd CoppolaWBC8.4 103/ulNormal4.0-11.0The [facility] ColumbusComment on above: Performed By: #### CBC #### [facility] [address] [place] [address] Dr. Lody Torres URINE PROFILEon 03-53-7892Qetxyvcib Ql (U)SMALLAbnormal NEGATIVEWestern Reserve HospitalComment on above:Performed By: #### JAIME UMICRO #### [facility] [address] [place] [address] Dr. Loyd CoppolaClarity (U)CLEARNormalCLEARWestern Reserve HospitalComment on above: Performed By: #### JAIME UMICRO #### [facility] [address] [place] [address] Dr. Loyd CoppolaColor (U)YELLOWNormalYELLOWWestern Reserve HospitalComment on above: Performed By: #### JUSTIN SANDOVALRO #### [facility] [address] [place] [address] Dr. Loyd Ragsdale micrscopic examination will be performed if indicated. NormalThe [facility]S Hospital Of ColumbusComment on above:Performed By: #### JUSTIN SANDOVALRO #### [facility] [address] [place] [address] Dr. Loyd CoppolaGlucose Ql (U)NegativeNormalNEGATIVEWestern Reserve HospitalComment on above:Performed By: #### JUSTIN SANDOVALRO #### [facility] [address] [place] [address] Dr. Loyd CoppolaHemoglobin Ql (U)TRACE-INTACTAbnormalNEGATIVEWestern Reserve HospitalComment on above:Performed By: #### JAIME UMICRO #### [facility] [address] [place] [address] Dr. Loyd CoppolaKetones Ql (U)80 mg/dlAbnormalNEGATIVESelect [facility] on above:Performed By: #### JAIME UMICRO #### [facility] [address] [place] [address] Dr. Loyd CoppolaLEUKOCYTESNegativeNormalNEGATIVEThe [facility] Hospital Of ColumbusComment on above:Performed By: #### JESUS SANDOVAL #### [facility] [address] [place] [address] Dr. Loyd Hatrite Ql (U)NegativeNormalNEGATIVEThe [facility] Hospital Of ColumbusComment on above:Performed By: #### JESUS SANDOVAL #### [facility] [address] [address] [address] Loyd CoppolapH (U)6.5 [pH]Normal5-9The [facility] Of ColumbusComment on above: Performed By: #### JESUS SANDOVAL #### [facility] [address] [place] [address] Dr. Loyd CoppolaProtein (U) [Mass/Vol]100 mg/dLAbnormalNEGATIVE/ TRACEThe [facility] Hospital Of ColumbusComment on above:Performed By: #### JESUS SANDOVAL #### [facility] [address] [place] [address] Dr. Loyd CoppolaSPEC GRAVITY1.745Okipzmgw0.005-<=1.025The [facility] Comment on above:Performed By: #### JESUS SANDOVAL #### [facility] [address] [place] [address] Dr. Loyd Akhtar MICRO INDINDICATEDNormalThe [facility] Hospital Of ColumbusComment on above: Performed By: #### JESUS SANDOVAL #### [facility] [address] [place] [address] Dr. Loyd Lathambilinogen Qn (U)0.2 {Taylor'U}/dLNormal0.2 - 1.0The [facility] Of ColumbusComment on above:Performed By: #### JESUS SANDOVAL #### [facility] [address] [place] [address] Dr. Loyd CoppolaPROF 14(COMP METB)on 31-97-5569Dpvyzzd [Mass/Vol]3.5 g/dLNormal 3.4-5.0The [facility] Centerment on above:Performed By: #### CBC #### [facility] [address] [address] [address] Loyd CoppolaAlbumin/Globulin [Mass ratio]0.9 {ratio}NormalThe [facility] Hospital Of ColumbusComment on above:Performed By: #### CBC #### [facility] [address] [address] [address] Loyd SegoviaP [Catalytic activity/Vol]61 U/XKcjqdp19-608Gxs [facility] Of ColumbusComment on above:Performed By: #### CBC #### [facility] [address] [address] [address] Loyd Brown [Catalytic activity/Vol]29 U/ORkhiiu49-96Osb [facility] ColumbusComment on above:Performed By: #### CBC #### [facility] [address] [place] [address] Dr. Loyd Aldanaon gap [Moles/Vol]12.0 mmol/LNormalThe [facility] Comment on above:Performed By: #### CBC #### [facility] [address] [place] [address] Dr. Loyd CoppolaAST [Catalytic activity/Vol]24 U/RPczzyn19-64Plb [facility] on above:Performed By: #### CBC #### [facility] [address] [place] [address] Dr. Loyd CoppolaBilirubin [Mass/Vol]0.4 mg/dLNormal0.2-1.0The [facility] Comment on above:Performed By: #### CBC #### [facility] [address] [place] [address] Dr. Loyd CoppolaCalcium [Mass/Vol]8.6 mg/dLNormal8.5-10.1The [facility] Comment on above:Performed By: #### CBC #### [facility] [address] [place] [address] Dr. Loyd CoppolaChloride [Moles/Vol]99 mmol/WOywxvy14-393Azr [facility] Comment on above:Performed By: #### CBC #### [facility] [address] [address] [address] Loyd CoppolaCO2 [Moles/Vol]24.9 mmol/IAqqnid08.0-32.0The [facility] Comment on above:Performed By: #### CBC #### [facility] [address] [address] [address] Loyd CoppolaCreatinine [Mass/Vol]0.55 mg/dLNormal0.55-1.02The [facility] Of ColumbusComment on above:Performed By: #### CBC #### [facility] [address] [address] [address] Loyd EscuderoGFR-AF IRANIAN>60Normal>=60The [facility] Of ColumbusComment on above:Performed By: #### CBC #### [facility] [address] [address] [address] Loyd EscuderoGFR-NON AF IRANIAN>60Normal>=60The [facility] Of ColumbusComment on above:Performed By: #### CBC #### [facility] [address] [address] [address] Loyd CoppolaGlobulin (S) [Mass/Vol]3.8 g/dLNormalThe [facility] Hospital Of ColumbusComment on above:Performed By: #### CBC #### [facility] [address] [address] [address] Loyd CoppolaGlucose [Mass/Vol]106 mg/lWGrbwaf30-219Mlw [facility] Comment on above:Performed By: #### CBC #### [facility] [address] [address] [address] Loyd CoppolaPotassium [Moles/Vol]2.9 mmol/LCritically low3.5-5.1The [facility] Hospital Of ColumbusComment on above:Performed By: #### CBC #### [facility] [address] [address] [address] Loyd CoppolaProtein [Mass/Vol]7.3 g/dLNormal6.4-8.2The [facility] Comment on above:Performed By: #### CBC #### [facility] [address] [address] [address] Loyd CoppolaSodium [Moles/Vol]135 mmol/LCritically hfl367-408Wbm [facility] Of ColumbusComment on above:Performed By: #### CBC #### [facility] [address] [place] [address] Dr. Loyd Oliver nitrogen [Mass/Vol]12.0 mg/dLNormal7.0-18.0The [facility] Of ColumbusComment on above:Performed By: #### CBC #### [facility] [address] [place] [address] Dr. Loyd Oliver nitrogen/Creatinine [Mass ratio]21.8 mg/mgNoThe MetroHealth SystemComment on above:Performed By: #### CBC #### [facility] [address] [place] [address] Dr. Loyd Justice MICROSCOPIC ONLYon 36-29-9799WCEMEEDQQEJBFYSCDagvziejTMWP SEENThe [facility] Hospital Of ColumbusComment on above:Performed By: #### JAIME UMICRO #### [facility] [address] [place] [address] Dr. Loyd Herring identified Cx Nom (U)INDICATEDPremier HealthComment on above:Performed By: #### JAIME UMICRO #### [facility] [address] [place] [address] Dr. Loyd Angel SEENNormalNONE SEENThe [facility]Comasc[facility] on above:Performed By: #### JAIME UMICRO #### [facility] [address] [place] [address] Dr. Loyd Jamesystals LM Nom (Urine sed)NONE SEENNormalNONE SEENWestern Reserve HospitalComascension st. [facility] on above:Performed By: #### JAIME UMICRO #### [facility] [address] [place] [address] Dr. Harp ChangEpithelial cells LM Ql (Urine sed)MANYAbnormalNONE SEEN /RAREThe Children'S Hospital Of ColumbusComment on above:Performed By: #### JAIME UMICRO #### [facility] [address] [address] [address] Loyd StaplesUSSMALMinhnormalJEREMIE SEENWestern Reserve HospitalComment on above:Performed By: #### JUSTIN SANDOVALRO #### [facility] [address] [address] [address] Loyd CoppolaIboluALP0-3Xlslgv4-1Vmb [facility] Of ColumbusComment on above:Performed By: #### JUSTIN SANDOVALRO #### [facility] [address] [address] [address] Loyd CoppolaWBC2-5AbnormalNONE SEENWestern Reserve HospitalComment on above: Performed By: #### JESUS SANDOVAL #### [facility] [address] [place] [address] Dr. Loyd CoppolaUS PREG TVon 04-23-8153FT PREG TVEXAMINATION: US PREG TV HISTORY: Missed [...] Electronically authenticated by: YOMAIRA GONZALEZ Date: 2023-01-23 15:42[facility] ACOG PANEL 2: 21 to 29on 09-19-2022..NormalThe [facility]'S Hospital Of ColumbusComment on above:Performed By: #### [id number] #### [facility] [address] [place] [address] Dr. Loyd Martinez Gdln ACOG Kolrckl33-30SwfoykBftPremier HealthComment on above:Performed By: #### [id number] #### [facility] [address] [place] [address] Dr. Loyd CoppolaDIAGNOSIS:CommentTrumbull Memorial Hospital on above: Result Comment: NEGATIVE FOR INTRAEPITHELIAL LESION OR MALIGNANCY.Performed By: #### [id number] #### [facility] [address] [place] [address] Dr. Loyd CoppolaMethodology:CommentTrumbull Memorial Hospital on above: Result Comment: This liquid based ThinPrep(R) pap test was screened with the use of an image guided system.Performed By: #### [id number] #### [place] [address] Dr[address] Loyd CoppolaNote:CommentTrumbull Memorial Hospital on above:Result Comment: The Pap smear is a screening test designed to aid in the detection of premalignant and malignant conditions of the uterine cervix. It is not a diagnostic procedure and should not be used as the sole means of detecting cervical cancer. Both false-positive and false-negative reports do occur. .Performed By: #### [id number] #### [facility] [address] [place] [address] Dr. Loyd CoppolaPerformed by:CommentTrumbull Memorial Hospital on above: Result Comment: Milagro Velasco, Rerecording Mixer (ASCP)Performed By: #### [id number] #### [place] [address] Dr[address] Loyd CoppolaReflex Criteria:[facility] on above:Result Comment: The HPV DNA reflex criteria were not met with this specimen result therefore, no HPV testing was performed. .Performed By: #### [id number] #### [facility] [address] [place] [address] Dr. Loyd CoppolaSpecimen adequacy:CommentTrumbull Memorial Hospital on above:Result Comment: Satisfactory for evaluation. Endocervical and/or squamous metaplastic cells (endocervical component) are present.Performed By: #### [id number] #### [place] [address] Dr. Loyd Coppola Vital Signs Date TimeVital SignValuePerforming RuefnelfkOuwcxlzy50-52-1352 13:43-0400Body alvzwj664.2 cmLuciandarnell Trena COMPOUND [employer]IXER Work Phone: [phone] [place], [place] [address]Smbfhvxmhi00-65-8277 13:43-0400Body mass index (BMI) [Ratio]44.48 kg/z7Vlrlcszb Rtena [employer]ER Work Phone: [phone] [place], [place] [address]Bnfowngacc55-85-7285 13:43-0400Body thuajl143.82 kgMaameaddy Trena [employer] Work Phone: [phone] [place], [place] [address]Fjikdmdqfb37-75-2344 13:43-0400Diastolic blood pfaqcbfr09 mm[Hg]Blank Trena [employer] Work Phone: [phone] [place], [place] [address]Bbmndhvezb58-11-6780 13:43-0400Systolic blood guzztoxa015 mm[Hg]Blank Trena [employer] Work Phone: [phone])[facility] [place], [place] [address]Lnejmafdnk28-76-9954 11:29-0400Body mass index (BMI) [Ratio]44.76 kg/m2Amy Polina PA Work Phone: [phone] [place], [place] [address]Rykauzomfs71-77-4890 11:29-0400Body yasbvy314.64 kgAmy Preston PA Work Phone: [phone] [place], [place] [address]Lmrkirboqd80-29-7670 11:29-0400Diastolic blood mtenzgye34 mm[Hg]Kristan Fish PA Work Phone: 1([phone])618-[address] [place] [address]-21-2025 11:29-0400Systolic blood qflovjbp901 mm[Hg]Kristan Fish PA Work Phone: [phone])[facility] [place] [address]-14-2025 09:42-0400Body mass index (BMI) [Ratio]44.34 kg/q7IlecmuzaBlank Kilpatrickerly [employer]IXER Work Phone: 1(894)[facility] [place] [address]-14-2025 09:42-0400Body wekbsp103.42 kgKrfeliciaa Trena [employer] Work Phone: 1(790)838-[address] [place] [address]-14-2025 09:42-0400Diastolic blood wekugmts09 mm[Hg]Blank Trena [employer] Work Phone: 1(740)294-[address] [place] [address]-14-2025 09:42-0400Systolic blood mm[Hg]Blank Trena CORTES Work Phone: [phone] [place], [place] [address]Ayzhfrcnrp54-55-1531 09:36-0400Body mass index (BMI) [Ratio]43.67 kg/c2Lzwzp Sebastian DO Work Phone: [phone])615-[facility] HospitalYdfgptbrpe41-76-7335 09:36-0400Body uhiliq633.46 kgCorey Sebastian DO Work Phone: [phone] [place] [address]-07-2025 09:36-0400Diastolic blood mfnbfueq96 mm[Hg]Nolan Sebastian DO Work Phone: [phone])886-[address] [place], [place] [address]Necdcqvnfj28-05-7866 09:36-0400Systolic blood uaateatx924 mm[Hg]Nolan Sebastian DO Work Phone: 1([phone])367-[address] [place], [place] [address]Jcplgnvkfj15-76-8496 10:36-0400Diastolic blood mm[Hg]Nolan Sebastian DO Work Phone: [phone])343-[address] [place], [place] [address]Dndcqpdlqd25-66-2128 10:36-0400Systolic blood uulpcktf344 mm[Hg]Nolan Sebastian DO Work Phone: [phone] [place], [place] [address]Iwxvyygstn56-66-6084 10:29-0400Body mass index (BMI) [Ratio]49.34 kg/r8Oonvh Sebastian DO Work Phone: 1(814)025-[address] [place], [place] [address]Wlpnjnbgqk67-43-2825 10:29-0400Body vaakoz026.88 kgCorey Sebastian DO Work Phone: 1([phone])234-[address] [place], [place] [address]Qlrevjlwai75-06-0863 11:04-0400Body mass index (BMI) [Ratio]49.49 kg/m2Kristan RUBIO Work Phone: [phone] [place], [place] [address]Himzigqvki53-37-4301 11:04-0400Body pkdxih042.34 kgKristan RUBIO Work Phone: [phone]-[facility] HospitalLee[facility] HospitalBeuweuhuip66-77-6196 11:04-0400Diastolic blood qiraqxmh12 mm[Hg]Kristan RUBIO Work Phone: [phone])777-[address] [place] [address]-22-2025 11:04-0400Systolic blood mm[Hg]Kristan Fish PA Work Phone: [phone] [place], [place] [address]Mmwbwsexba11-86-9518 08:59-0400Body mass index (BMI) [Ratio]48.12 kg/m2Amy Preston PA Work Phone: [phone])558-[address] [place], [place] [address]Gyzcycbery42-97-6935 08:59-0400Body .37 kgAmy Polina PA Work Phone: [phone] [place], [place] [address]Gqkqeqmbzt82-28-8482 08:59-0400Diastolic blood mm[Hg]Kristan Fish PA Work Phone: [phone] [place], [place] [address]Takwmhcwua40-53-5159 08:59-0400Systolic blood aidggglq741 mm[Hg]Kristan Fish PA Work Phone: [phone] [place], [place] [address]Jeioborisj35-31-4411 11:58-0400Body mass index (BMI) [Ratio]47.58 kg/p6Gsfit Sebastian DO Work Phone: 1(322)893-[address] [place], [place] [address]Egjmbmoifo95-26-0362 11:58-0400Body ubvhzi307.8 kgCorey Sebastian DO Work Phone: [phone])426-[address] [place], [place] [address]Rrgrjfcjnd44-64-2416 11:58-0400Diastolic blood ivrgmnij59 mm[Hg]Nolan Sebastian DO Work Phone: [phone])988-[address] [place], [place] [address]Zhwxwvdkpe47-00-6477 11:58-0400Systolic blood uhkphlrs066 mm[Hg]Nolan Sebastian DO Work Phone: [phone] [place] [address]Jxprzjjatc06-23-1775 10:56-0400Body mass index (BMI) [Ratio]47.16 kg/m2Amy Polina PA Work Phone: [phone])[phone] [place], [place] [address]Qfdscqkopb50-19-1661 10:56-0400Body rgnfwy831.59 kgAmy Polina PA Work Phone: [phone])499-[address] [place], [place] [address]Kcvxgkondw09-68-8704 10:56-0400Diastolic blood rhixdbdc27 mm[Hg]Kristan Fish PA Work Phone: [phone])[phone] [place], [place] [address]Nciykhbseh98-96-7947 10:56-0400Systolic blood zyltaktm380 mm[Hg]Kristan Fish PA Work Phone: [phone])118-[address] [place], [place] [address]Ydyjhmxepq12-27-7426 13:11-0400Body mass index (BMI) [Ratio]46.27 kg/w1Tjdjq Sebastian DO Work Phone: [phone])327-[address] [place], [place] [address]Psmdgjuqwf18-06-1837 13:11-0400Body aqznfu715.99 kgCorey Sebastian DO Work Phone: [phone])213-[address] [place], [place] [address]Woitvnamda22-19-0646 13:11-0400Diastolic blood tahcxlbz19 mm[Hg]Nolan Sebastian DO Work Phone: [phone])864-[address] [place], [place] [address]Vozrjsihxo99-30-7268 13:11-0400Systolic blood wlxjeqzg121 mm[Hg]Nolan Sebastian DO Work Phone: [phone])385-[address] [place], [place] [address]Cfqndfbxur35-69-9658 14:05-0400Body mass index (BMI) [Ratio]46.52 kg/c3Rjhrm Sebastian DO Work Phone: [phone])171-[address] [place], [place] [address]Ntskdgfavy08-00-6364 14:05-0400Body ayfnpp150.72 kgCorey Sebastian DO Work Phone: [phone])[phone] [place], [place] [address]Bdfwrfsbrf02-88-0804 14:05-0400Diastolic blood tcebyoav18 mm[Hg]Nolan Sebastian DO Work Phone: [phone])206-[address] [place], [place] [address]Ftejifrxcu34-41-2566 14:05-0400Systolic blood myonaqvd996 mm[Hg]Nolan Sebastian DO Work Phone: [phone])758-[address] [place], [place] [address]Ihilzqtgvo18-57-4654 14:00-0400Body mass index (BMI) [Ratio]46.05 kg/t9Lzrtc Sebastian DO Work Phone: [phone])933-[address] [place], [place] [address]Lrmhgacamj10-46-9842 14:00-0400Body nrqnqu448.36 kgCorey Sebastian DO Work Phone: [phone])420-[address] [place], [place] [address]Zqgykzuhuz27-15-6837 14:00-0400Diastolic blood faxezybk12 mm[Hg]Nolan Sebastian DO Work Phone: [phone])773-[address] [place], [place] [address]Acxaqqzrfy09-87-7613 14:00-0400Systolic blood qurvxgbq726 mm[Hg]Nolan Sebastian DO Work Phone: [facility] HospitalObferthgll65-03-6219 13:08-0400Body mass index (BMI) [Ratio]45.7 kg/i9Xdimbgd Lavoy PA-C Work Phone: [phone])[address] [place] [address] [employer] Tzdciq46-06-2410 13:08-0400Body .36 kgColleen Lavoy PA-C Work Phone: [phone])[address] [place], [place] 3555204-29-2025 13:08-0400Diastolic blood nvkehoqg76 mm[Hg]Kenya Lavoy PA-C Work Phone: [phone])[address] [place], [place] 355[address]204-29-2025 13:08-0400Heart rate 95 /minColleen Lavoy PA-C Work Phone: [phone])[address] [place], [place] 3555204-29-2025 13:08-0400Systolic blood fmuohbok209 mm[Hg]Kenya Lavoy PA-C Work Phone: [phone])[address] [place], [place] 355[address]204-14-2025 13:59-0400Body mass index (BMI) [Ratio]45.42 kg/a9Qmohs Sebastian DO Work Phone: [facility] HospitalQirxmcpokd23-58-6999 13:59-0400Body kajjou840.54 kgCorey Sebastian DO Work Phone: [facility] HospitalOmfwosvgbi44-35-0107 13:59-0400Diastolic blood mm[Hg]Nolan Sebastian DO Work Phone: [facility] HospitalGcnxlddvlc76-32-6638 13:59-0400Systolic blood fdvvquhc356 mm[Hg]Nolan Sebastian DO Work Phone: [phone] [place], [place] [address]Mnsuakuhkm97-21-1152 13:18-0400Body mass index (BMI) [Ratio]44.79 kg/k8YejyurViolet Lopez RN Work Phone: [phone]04-09-2025 13:18-0400Body .73 kgAngela John RN Work Phone: [facility]-18-2025 13:59-0500Body mass index (BMI) [Ratio]44.14 kg/j9Fpveu Sebastian DO Work Phone: [facility] HospitalQianyvvkia30-41-7439 13:59-0500Body deiwyd060.82 kgCorey Sebastian DO Work Phone: [facility] HospitalLsdffohvrz69-37-9093 13:59-0500Diastolic blood atrhajda39 mm[Hg]Nolan Sebastian DO Work Phone: NOCoxHealthAprehrbnkb70-38-2463 13:59-0500Systolic blood qzuvebyr345 mm[Hg]Nolan Sebastian DO Work Phone: [facility] HospitalHjmbxxhfdy42-85-3337 09:44-0500Body mass index (BMI) [Ratio]43.95 kg/m2[facility]01-17-2025 09:44-0500Body wiuqdl824.28 kgDe[facility]ess [facility]05-14-2023 03:40-0400Body swejts315.9256 kgDR JULIANNE LAMBERT .[facility]Comment on above:Performed By: #### JESUS SANDOVAL #### [facility] [address] [place] [address] Dr. Loyd Coppola Encounters Encounter DateEncounter TypeCare ProviderFacilityStart: 07-14-2025 End: 98-38-8385Datqorsnjj care visitBlank Albrecht NP Work Phone: noMS [place] OBGYNComment on above:6 weeks follow-up ([facility]); Spontaneous vaginal delivery ([facility]Start: 07-14-2025 End: 46-57-3920fnhazxwldvSGAHPGMQ EBERLYNot AvailableStart: 07-07-2025 End: 07-62-5622phyrjkkgyrSpc Ramey PA Work Phone: noMS [place] OBGYNComment on above:Benign essential hypertension in obstetric context, antepartum ([facility]) (Primary Dx)Start: 06-30-2025 End: 44-14-2972thoaenzqvoVVU RAMEYNot AvailableStart: 06-30-2025 End: 96-50-8559Diwiyff encounter statusKristan Ogdenjulius RUBIO Work Phone: [facility] Work Phone: Start: 06-30-2025 End: 25-50-2795Bshdykcbbs care visitKristan Ogdenjulius RUBIO Work Phone: noMS [place] OBGYNComment on above:BP checkStart: 06-27-2025 End: 63-43-1762mxutpumkriSWZDUW [facility] Start: 06-23-2025 End: 40-10-6702agvygzzeclMOLSFBDG EBERLYNot AvailableStart: 06-23-2025 End: 56-20-9109Wmpmtq outpatient visit 10 minutesKrdarnell Albrecht COMPOUND [employer]ER Work Phone: noMS [place] OBGYNComment on above:Blood pressure checkStart: 06-23-2025 End: 54-36-1488Kmjnazm encounter statusBlank Albrecht [employer]ER Work Phone: [facility] Work Phone: Start: 06-16-2025 End: 79-25-0315fenlqumrrrGDCYX FAZIONot AvailableStart: 06-16-2025 End: 83-82-4349Jgebag outpatient visit 15 minutesCorey Sebastian DO Work Phone: noms N[facility]ha OBGYNComment on above:Encounter for visit ([facility]); Blood pressure checkStart: 06-16-2025 End: 64-12-3076Cpbgwun encounter statusCorey Sebastian DO Work Phone: noMS HealthcareStart: 06-08-2025 End: 64-88-4186Odpwphphc Result EncounterCorey Sebastian DO Work Phone: noMS External Department UnsolicitedStart: 06-08-2025 End: 77-60-6474Xkelpzado Result EncounterCorey Sebastian DO Work Phone: noMS External Department UnsolicitedStart: 06-07-2025 End: 17-13-8791Pozkxfbjh Result EncounterCorey Sebastian DO Work Phone: noms External Department UnsolicitedStart: 06-07-2025 End: 75-87-5985Afktapvcl Result EncounterCorey Sebastian DO Work Phone: noms External Department UnsolicitedStart: 06-07-2025 End: 88-24-8072wdtskkamaoXCOCZ FAZIONot AvailableStart: 06-07-2025 End: 88-00-4296Rskehtob flow sheetCorey Sebastian DO Work Phone: noms N[facility]ha OBGYNComment on above:Throbbing headache; Encounter for visit ([facility])Start: 06-04-2025 End: 00-55-1445Ztgrihhur Result EncounterCorey Sebastian DO Work Phone: noms External Department UnsolicitedStart: 06-04-2025 End: 96-08-2790Ctkfijtmb Result EncounterCorey Sebastian DO Work Phone: noms External Department UnsolicitedStart: 06-03-2025 End: 07-61-9495Vllbdkqiy Result EncounterCorey Sebastian DO Work Phone: noms External Department UnsolicitedStart: 06-03-2025 End: 90-66-5394Fazeguwcx Result EncounterCorey Sebastian DO Work Phone: noms External Department UnsolicitedStart: 06-02-2025 End: 63-68-2209Aoaafsswx Result EncounterCorey Sebastian DO Work Phone: noms External Department UnsolicitedStart: 06-02-2025 End: 47-31-5101Zioipvmxn Result EncounterCorey Sebastian DO Work Phone: noms External Department UnsolicitedStart: 06-02-2025 End: 56-71-4523Nkuiai outpatient visit 15 minutesKareem YAP Work Phone: [phone]-Nrdbx Medicine at [facility] Comment on above:Gestational diabetes mellitus (GDM) in third trimester controlled on oral hypoglycemic drug (Primary Dx)Start: 06-02-2025 End: 80-83-2771cvijvrdcefFPLSXPTI BROGANUniversity Hospitals St. John Medical Centerca Memorial Health Systemtart: 05-31-2025 End: 44-97-9029Atdnyb Naye RUBIO Work Phone: NOYX BCP OBStart: 05-31-2025 End: 00-64-8946Lkmbck flowsAparna RUBIO Work Phone: NOPK BCP OBStart: 05-31-2025 End: 16-50-8373dukckluwtcFSB RAMEYNot AvailableStart: 05-31-2025 End: 87-13-4173Bjjgirpz flow sheetKristan RUBIO Work Phone: noms BCP OBComment on above:Third trimester ([facility]); 36 weeks gestation of ([facility])Start: 05-30-2025 End: 94-19-5468Cqfxmfwcx Result EncounterCorey Sebastian DO Work Phone: NOPR External Department UnsolicitedStart: 05-30-2025 End: 77-78-1529Ulzwtmmgs Result EncounterCorey Sebastian DO Work Phone: noms External Department UnsolicitedStart: 05-26-2025 End: 36-20-3815Otoynkbtv Result EncounterCorey Sebastian DO Work Phone: NOTU External Department UnsolicitedStart: 05-26-2025 End: 20-95-4236Lpaiiagja Result EncounterCorey Sebastian DO Work Phone: noms External Department UnsolicitedStart: 05-25-2025 End: 34-36-9155Hizyqovjm Result EncounterCorey Sebastian DO Work Phone: noms External Department UnsolicitedStart: 05-25-2025 End: 79-48-7328Mxgsqnvam Result EncounterCorey Sebastian DO Work Phone: noms External Department UnsolicitedStart: 05-24-2025 End: 46-50-2727Sloodskcc Result EncounterCorey Sebastian DO Work Phone: noms External Department UnsolicitedStart: 05-24-2025 End: 71-23-5064Uvcbuzrsp Result EncounterCorey Sebastian DO Work Phone: noms External Department UnsolicitedStart: 05-24-2025 End: 36-66-2687Liufdskge encounterLolahadley Hurd CMAMaternal- Medicine at [facility] Hospitaltart: 05-24-2025 End: 31-38-2846llancfuvkoQXP RAMEYNot AvailableStart: 05-24-2025 End: 32-95-2860Lhbfmobw flow sheetAmy Polina RUBIO Work Phone: noms BCP OBComment on above:Third trimester ([facility]); 35 weeks gestation of ([facility]); induced hypertension, antepartum ([facility])Start: 05-17-2025 End: 86-05-6171Sptjwv flowsheetCorey Sebastian DO Work Phone: NOGJ BCP OBStart: 05-17-2025 End: 24-00-7182Ydqwzg flowsheetCorey Sebastian DO Work Phone: noms BCP OBStart: 05-17-2025 End: 52-45-2734Irywdnok flow sheetCorey Sebastian DO Work Phone: noms BCP OBComment on above:Third trimester ([facility]); 34 weeks gestation of ([facility]); Gestational diabetes mellitus (GDM), antepartum, gestational diabetes method of control unspecified([facility])Start: 05-17-2025 End: 28-82-8589fnmywmwiusXDUNI FAZIONot AvailableStart: 05-16-2025 End: 63-22-4011Lclzrornj Result EncounterCorey Sebastian DO Work Phone: noms External Department UnsolicitedStart: 05-16-2025 End: 50-00-6629Sbeziqluq Result EncounterCorey Sebastian DO Work Phone: NOLK External Department UnsolicitedStart: 05-09-2025 End: 11-16-1158Tbowmfdti Result EncounterCorey Sebastian DO Work Phone: NOOD External Department UnsolicitedStart: 05-09-2025 End: 08-55-7048Hbyagtpbq Result EncounterCorey Sebastian DO Work Phone: NOMS External Department UnsolicitedStart: 05-02-2025 End: 73-13-2997Wfsqhc flowsAparna RUBIO Work Phone: NOMS BCP OBStart: 05-02-2025 End: 76-27-9569Trfruy flowsheetKristan RUBIO Work Phone: NOMS BCP OBStart: 05-02-2025 End: 68-63-6813Fvnrdshpu Result EncounterCorey Sebastian DO Work Phone: NOMS External Department UnsolicitedStart: 05-02-2025 End: 86-80-3749Jrhudeef flow sheetKristan RUBIO Work Phone: NOMS BCP OBComment on above:32 weeks gestation of ([facility]); Third trimester ([facility])Start: 05-02-2025 End: 41-39-2972edwypjjukrZZH RAMEYNot AvailableStart: 04-29-2025 End: 53-36-5831Apgfufzzb encounterRufina Hurd CMAMaternal- Medicine at [facility] Hospitaltart: 04-25-2025 End: 52-31-3251Qucqghdmm Result EncounterCorey Sebastian DO Work Phone: NOMS External Department UnsolicitedStart: 04-25-2025 End: 06-52-0760Yaficewhx Result EncounterCorey Sebastian DO Work Phone: noMS External Department UnsolicitedStart: 04-19-2025 End: 12-52-8699Amfulqvhy encounterRufina Hurd CMAMaternal- Medicine at [facility] Hospitaltart: 04-19-2025 End: 35-75-4937Wigjhj outpatient visit 25 minutesCollmegan E Otilia FRYE Work Phone: [phone]-Iymrl Medicine at [facility] Comment on above:Gestational diabetes mellitus (GDM) in second trimester controlled on oral hypoglycemic drug (Primary Dx)Start: 04-19-2025 End: 66-34-6700zfrgfeuohxMGEIXVJ E OTILIAProMedica Luthersville HospitalStart: 04-18-2025 End: 78-86-5851Xyujpq flowsheetCorey Sebastian DO Work Phone: noMS BCP OBStart: 04-18-2025 End: 68-56-2827Peorpc flowsheetCorey Sebastian DO Work Phone: noms BCP OBStart: 04-18-2025 End: 34-52-9988Edmcdqrdr Result EncounterCorey Sebastian DO Work Phone: noMS External Department UnsolicitedStart: 04-18-2025 End: 71-44-9996qnxnskspewTLBRO FAZIONot AvailableStart: 04-18-2025 End: 96-06-8552Ywxiujin flow sheetCorey Sebastian DO Work Phone: noms [facility] OBComment on above:30 weeks gestation of ; Third trimester pregnancyStart: 04-11-2025 End: 99-64-6730Syphkfgbb Result EncounterCorey Sebastian DO Work Phone: noMS External Department UnsolicitedStart: 04-11-2025 End: 91-01-5037Eugsztchn Result EncounterCorey Sebastian DO Work Phone: noMS External Department UnsolicitedStart: 04-05-2025 End: 49-60-5026Hjrdhe flowsheetCorey Sebastian DO Work Phone: noms BCP OBStart: 04-05-2025 End: 53-95-8592Cufopj flowsheetCorey Sebastian DO Work Phone: NOMS BCP OBStart: 04-05-2025 End: 47-31-5794Iyjmasug flow sheetCorey Sebastian DO Work Phone: NOMS BCP OBComment on above:Third trimester ; 28 weeks gestation of ; Gestational diabetes mellitus (GDM), antepartum, gestational diabetes method of control unspecified; H/O: hypertensionStart: 04-05-2025 End: 17-43-7861qrxudunkyiBSBRE FAZIONot AvailableStart: 03-23-2025 End: 53-11-7810Gdzctniui encounterRufina Hurd CMAMaternal- Medicine at [facility] Hospitaltart: 03-23-2025 End: 98-29-6508Ntenwj outpatient visit 25 minutesKareem YAP Work Phone: [phone]-Uudsg Medicine at [facility] Comment on above:Gestational diabetes mellitus (GDM) in second trimester controlled on oral hypoglycemic drugStart: 03-23-2025 End: 60-16-6206qkhsqiawepYEOOUCUC BROGANProKettering Memorial Hospitaltart: 03-16-2025 End: 97-81-6169Vrtnyqgtr encounterViolet Lopez RN Work Phone: [phone]-Uamhe Medicine at [facility] Start: 03-14-2025 End: 12-52-5913Jfisfb flowsheetCorey Sebastian DO Work Phone: NOMS BCP OBStart: 03-14-2025 End: 44-35-8372Knflig flowsheetCorey Sebastian DO Work Phone: [facility]OM[facility] BCP OBStart: 03-14-2025 End: 43-52-0836xrboqqcsotOHZJS FAZIONot AvailableStart: 03-14-2025 End: 95-39-8980Cbsstuwb flow sheetCorey Sebastian DO Work Phone: NOMS BCP OBComment on above:Second trimester ; 25 weeks gestation of pregnancyStart: 03-08-2025 End: 36-60-0328Qyrktrjur encounterRufina Hurd CMAMaternal- Medicine at [facility] Hospitaltart: 03-08-2025 End: 18-61-8230Qieklz outpatient new 45 minutesCollmegan E Otilia FRYE Work Phone: [phone]-Fayzv Medicine at [facility] Comment on above:Gestational diabetes mellitus (GDM) in second trimester controlled on oral hypoglycemic drug (Primary Dx)Start: 03-08-2025 End: 28-99-0059dgrencnoxfPDIQCZE E OTILIAProMedica Luthersville HospitalStart: 03-07-2025 End: 45-07-6510Xdpjkkhzi Result EncounterCorey Sebastian DO Work Phone: noms External Department UnsolicitedStart: 03-07-2025 End: 06-50-3171Mxptpowvp Result EncounterCorey Sebastian DO Work Phone: noms External Department UnsolicitedStart: 03-04-2025 End: 12-68-5397Cczlaqogc encounterAmanda Puccetti RNMaternal- Medicine at [facility] Hospitaltart: 03-02-2025 End: 60-99-5496Mwtvbfowm encounterAmanda Puccetti RNMaternal- Medicine at [facility] Hospitaltart: 02-24-2025 End: 07-07-8126Iomkaqcfl encounterDeevi BARRY Work Phone: [phone]-Cxnla Medicine at [facility] Start: 02-21-2025 End: 06-92-8482Cmgdwj flowsheetCorey Sebastian DO Work Phone: NOHK BCP OBStart: 02-21-2025 End: 89-04-0754Pfllnu flowsheetCorey Sebastian DO Work Phone: noms BCP OBStart: 02-21-2025 End: 14-01-1006kxtzczottfSTNZS FAZIONot AvailableStart: 02-21-2025 End: 25-75-8591Qctxzmyw flow sheetCorey Sebastian DO Work Phone: noms BCP OBComment on above:Second trimester ; 22 weeks gestation of pregnancyStart: 02-16-2025 End: 75-86-3600zfbcgdkuduGCDUYMercy Health Willard Hospitaltart: 02-16-2025 End: 26-85-9589Gzbvcjyz care educationViolet Lopez RN Work Phone: [phone]-Byqpu Medicine at [facility] Comment on above:Diet controlled gestational diabetes mellitus (GDM) in second trimester (Primary Dx); Encounter for diabetes educationStart: 02-14-2025 End: 34-65-5531iguzzhepznIJYYQ FAZIONot AvailableStart: 02-07-2025 End: 16-88-6564Wbtld Linden YAP Work Phone: [phone]-Uzmes Medicine at [facility] Start: 02-07-2025 End: 21-61-0703Zcmfapikk Result EncounterCorey Sebastian DO Work Phone: noms External Department UnsolicitedStart: 02-07-2025 End: 79-56-0448Uaohhkiur Result EncounterCorey Sebastian DO Work Phone: noms External Department UnsolicitedStart: 01-24-2025 End: 16-14-2495mlcvkvlkugOUSQJ FAZIONot AvailableStart: 01-08-2025 End: 01-40-9278Cycvkqiqk Result EncounterCorey Sebastian DO Work Phone: noms External Department UnsolicitedStart: 01-08-2025 End: 48-91-7513Xdqxlnofo Result EncounterCorey Sebastian DO Work Phone: noms External Department UnsolicitedStart: 12-28-2024 End: 46-53-9368Xnlxgm flowsheetCorey Sebastian DO Work Phone: NOMS BCP OBStart: 12-28-2024 End: 91-11-9627Swmyli flowsheetCorey Sebastian DO Work Phone: noms BCP OBStart: 12-28-2024 End: 43-93-1947Ypfovvid flow sheetCorey Sebastian DO Work Phone: NOLJ BCP OBComment on above:Second trimester ; 14 weeks gestation of ; Diabetes mellitus screeningStart: 12-28-2024 End: 39-04-8154cuzuchskygBJAHO FAZIONot AvailableStart: 11-27-2024 End: 55-90-8631Ojmjdxngi Result EncounterCorey Sebastian DO Work Phone: NOKM External Department UnsolicitedStart: 11-27-2024 End: 76-33-2435Dinugdupp Result EncounterCorey Sebastian DO Work Phone: NOVO External Department UnsolicitedStart: 11-26-2024 End: 55-85-7266Nwrhebgar Result EncounterCorey Sebastian DO Work Phone: NOUR External Department UnsolicitedStart: 11-26-2024 End: 69-73-6952Ahvqohfgy Result EncounterCorey Sebastian DO Work Phone: NORR External Department UnsolicitedStart: 11-26-2024 End: 49-85-5948nvxcnhtgjzHLLFA FAZIONot AvailableStart: 11-26-2024 End: 63-83-7954Kievyw outpatient visit 5 minutesNoms Bcp Ob Sebastian NurseNOMS BCP OBComment on above:GA: 97i5mPwxtu: 04-28-2024 End: 91-49-9034Hsoidqpna Result EncounterCorey Sebastian DO Work Phone: NOGX External Department UnsolicitedStart: 04-28-2024 End: 22-05-7030Wxlugtdeg Result EncounterCorey Sebastian DO Work Phone: noms External Department UnsolicitedStart: 04-09-2023 ambulatoryDR NOLAN SEBASTIAN .Facility:M2Lnbau: 03-29-2023 End: 66-20-0017fjqixpnmqxMBT POLINA .Facility:X3Inerz: 03-21-2023 End: 26-92-3857otrlzujtzjVO NOLAN SEBASTIAN .Facility:J6Nyflt: 02-18-2023 End: 76-39-4703euqfaofhmdIK NOLAN SEBASTIAN .Facility:C1Fcjvd: 02-13-2023 End: 52-37-4501ygtmhntivrQF NOLAN SEBASTIAN .Facility:A0Jmgar: 01-31-2023 End: 36-22-9927swuzgdqygxVS NOLAN SEBASTIAN .Facility:C1Gpxuv: 01-28-2023 End: 55-65-3695nlvtdfyvdgJM DOCTOR MISCFacility:K4Palvv: 01-23-2023 End: 62-71-2888ardzuckwhpWS NOLAN SEBASTIAN .Facility:J9Pmskm: 09-11-2022 End: 11-28-6344edrpqqiufwWE JULIANNE LAMBERT .Facility: Procedures DateProcedureProcedure DetailPerforming ClinicianStart: 15-65-1926Ka angiography chest w/contrast/noncontrastCorey Sebastian DO Work Phone: Start: 30-29-4335YRS CBC WITH AUTO DIFFCorey Sebastian DO Work Phone: Start: 69-76-3510MLS CBC WITH AUTO DIFFCorey Sebastian DO Work Phone: Start: 99-75-5108EKE CBC WITH AUTO DIFFCorey Sebastian DO Work Phone: Start: 67-23-2761TWY CBC WITH AUTO DIFFCorey Sebastian DO Work Phone: Start: 73-37-7220PLW CBC WITH AUTO DIFFCorey Sebastian DO Work Phone: Start: 44-03-5544Lymfb dip stick/tablet rgnt non-auto w/o micrscpAmy Polina PA Work Phone: Start: 93-80-0279WE OB BPP W NON-STRESSCorey Sebastian DO Work Phone: Start: 76-53-9638NT OB BPP W NON-STRESSCorey Sebastian DO Work Phone: Start: 83-64-8872VZ OB GROWTHCorey Sebastian DO Work Phone: Start: 51-70-8757Kmdqt dip stick/tablet rgnt non-auto w/o micrscpAmy Polina RUBIO Work Phone: Start: 90-37-6548MZ OB BPP W NON-STRESSCorey Sebastian DO Work Phone: Start: 60-04-3504NI OB BPP W NON-STRESSCorey Sebastian DO Work Phone: Start: 75-27-5863KE OB BPP W NON-STRESSCorey Sebastian DO Work Phone: Start: 94-54-3997VA OB BPP W NON-STRESSCorey Sebastian DO Work Phone: Start: 10-24-6558Bptjd dip stick/tablet rgnt non-auto w/o micrscpBlank Albrecht NP Work Phone: Start: 16-42-5362UP OB BPP W NON-STRESSCorey Sebastian DO Work Phone: Start: 19-05-5649QI OB BPP W NON-STRESSCorey Sebastian DO Work Phone: Start: 54-66-8069Aqrpe dip stick/tablet rgnt non-auto w/o micrscpCorey Sebastian DO Work Phone: Start: 70-58-6638GY OB BPP W NON-STRESSCorey Sebastian DO Work Phone: Start: 95-00-1981Fzpqs dip stick/tablet rgnt non-auto w/o micrscpCorey Sebastian DO Work Phone: Start: 74-74-8900Wihyqqbzbe glycosylated x1rSbejkermegan Acosta PA-C Work Phone: Start: 85-48-5265HV OB INCOMPLETE ANATOMYCorey Sebastian DO Work Phone: Start: 33-16-7256Mnhdl dip stick/tablet rgnt non-auto w/o micrscpCorey Sebastian DO Work Phone: Start: 03-19-4857Hfiylej quantitative blood xcpt reagent stripKareem Hall [facility] Work Phone: Start: 11-97-6806OCH, SERUM, OPEN SPINA BIFIDACorey Sebastian DO Work Phone: Start: 28-73-8688BNXENDWHG/GC BY PCR HOLLEY SWABNot In System Ref ProvStart: 41-23-9761JFBBPNMNE/GC BY PCR THINPREP FLUIDNot In System Ref ProvStart: 73-70-6553Kpfoi count complete automatedNot In System Ref Prov Start: 14-80-0522KTZ CBC WITH AUTO DIFFCorey Sebastian DO Work Phone: Start: 78-84-5439Hztrd dip stick/tablet rgnt non-auto w/o micrscpCorey Sebastian DO Work Phone: Start: 04-64-0534Lwmbhyce screenKareem Hall [facility] Work Phone: Start: 07-75-6971Bpdx scrn 1+ class nonchromoNot In System Ref ProvStart: 25-46-6549JXOFT FREE CELL DNA (NON-[place])Not In System Ref ProvStart: 53-92-8591Ulkdltwvol glycosylated a1kYvefy R Sebastian DO Work Phone: Start: 44-76-5157WBR 1&2 AB/AG SCREEN (P24 AG)Not In System Ref ProvStart: 43-84-0118Gaxt ia hepatitis b surface antigenNot In System Ref ProvStart: 92-21-9018Rphqkxgg test non-treponemal antibody qualNot In System Ref ProvStart: 88-58-5869PCKO AND SCREENNot In System Ref ProvStart: 34-80-3518GMO CBC WITH AUTO DIFFCorey Sebastian DO Work Phone: Start: 94-64-4438YB OB TRANSVAGINALCorey Sebastian DO Work Phone: Start: 57-06-5629MG PELVIS W/ TRANSVAGINALCorey Sebastian DO Work Phone: Start: 16-17-7843Vrppeajrqiz observation [Identifier] in Cervix by Cyto Nargis [place] YAP Work Phone: Plan of Treatment DateCare ActivityDetailAuthorStart: 99-40-3415Pzhkx BMI ScreeningAdult BMI ScreeningWayne HealthCare Main Campus SystemStart: 85-72-0846Ziovzztnd for malignant neoplasm of cervixPap SmearUNC Health Nashtart: 62-04-5926Dhncz BMI ScreeningAdult BMI ScreeningUNC Health Nashtart: 09-21-2025 End: 67-10-5448Udqgcck encounter uyknqkogz36/12/2025 10:30 AM EST Office Visit [facility] [address] [place] [address] Blank Albrecht, COMPOUND MIXER [address] [place] [address] NOMChip [place] OBGYNStart: 07-14-2025 End: 05-70-9040xouxpxwpkq30/04/2025 1:30 PM EDT Visit [facility] [address] [place], [id number] Blank Albrecht, COMPOUND MIXER [address] [place] [address] NOMS Nesha OBGYNStart: 05-77-9533Rocneizag vaccinationInfluenza VaccineUNC Health Nashtart: 06-30-2025 End: 80-13-0501tilzmaoldj82/21/2025 10:50 AM EDT Visit [facility] [address] [facility] [place] [address] Kristan Fish PA [address] [place], [place] [id number] NOMChip [place] OBGYNStart: 06-23-2025 End: 42-87-4324hrnqkwxxjq79/14/2025 9:30 AM EDT Visit NOMChip BURKSN [address] [place], [id number] Blank Albrecht, COMPOUND MIXER [address] [place] [address] NOMS Nesha OBGYNStart: 06-07-2025 End: 47-97-2815Goncfbt encounter procedureNOMS BCP OBStart: 06-02-2025 End: 50-46-4619Fkijuolmaaqj consultation with dxetpes1306/02/2025 9:30 AM EDT Telemedicine Maternal- Medicine at [facility] [address] [place] [phone] Kareem Hall, COSMETOLOGY EDUCATOR-SOCIAL SERVICES SPECIALIST [address] [place] [address] [facility] 05-31-2025 End: 13-56-6736WMSXSJE, GROUP B STREP WITH SUSCEPTIBLITYCULTURE, GROUP B STREP WITH SUSCEPTIBLITY Lab Routine Third trimester ([facility]) Expected: 05/31/2025, Expires: 05/31/2026[facility] Work Phone: comment on above:Expected: 05/31/2025, Expires: 05/31/2026Start: 05-31-2025 End: 01-62-5865Rumdkul encounter nryhqkzgg85/22/2025 10:50 AM EDT Routine NOMS BCP OB [address] [facility] [place] [address] Kristan Fish PA [address] [place], [place] [phone] NOMS BCP OBStart: 05-24-2025 End: 47-91-9876Xvkkcxc encounter bvfpgewkl72/15/2025 8:40 AM EDT Routine NOMS BCP OB [address] [place] [phone] Kristan Fish [place] [address] [place] [address] NOMS BCP OBStart: 05-17-2025 End: 17-75-1950Mfpfrkj encounter whicolcnw42/08/2025 11:40 AM EDT Routine NOMS BCP OB [address] [place] [address] Nolan Cortes, [address] [place] [address] NOMS BCP OBStart: 05-02-2025 End: 84-62-6796Ooeictz encounter procedureNOMS BCP OBComment on above:Arrived Start: 04-19-2025 End: 97-43-4638Ezxxziranfvy consultation with ubiwdff1004/19/2025 10:30 AM EDT Telemedicine Maternal- Medicine at [facility] [address] [facility] [place] [address] Kenya Acosta, UDAY [address], [id number] [facility]: 04-18-2025 End: 34-36-1611Vdzqrmk encounter hbwivgjsw34/09/2025 1:00 PM EDT Routine NOMS BCP OB [address] [place] [phone] Nolan Cortes, DO [address] [place] [address] NOMS BCP OBStart: 04-05-2025 End: 59-99-4488JY biophysical profile w non stress testUS biophysical profile w non stress test Imaging Routine Gestational diabetes mellitus (GDM),antepartum, gestational diabetes method of control unspecified H/O: hypertension Expected: 04/05/2025 (Approximate), Expires: 10/06/2025[facility] HealthcareComment on above:Expected: 04/05/2025 (Approximate), Expires: 10/06/2025Start: 04-05-2025 End: 84-79-7083Odjdvjh encounter procedureNOMS BCP OBComment on above:Arrived Start: 03-23-2025 End: 05-24-7345Ybjzhtjdpkps consultation with olfcxao6103/23/2025 10:30 AM EDT Telemedicine Maternal- Medicine at [facility] [address] [place] [address] Kareem Hall, COSMETOLOGY EDUCATOR-SOCIAL SERVICES SPECIALIST [address] [place] [address] [facility]: 03-14-2025 End: 04-58-4385Dxbggfr encounter /05/2025 1:50 PM EDT Routine NOMS BCP OB [address] [place] [phone] Nolan Cortes, DO [address] [place], [place] [phone] NOMS BCP OBStart: 03-08-2025 End: 24-29-4848Tgafdky creat ratioProtein creat ratio Lab Routine Gestational diabetes mellitus (GDM) in second trimester controlled on oral hypoglycemic drug Expected: 03/08/2025 (Approximate), Expires: 06/07/2025[facility] Comment on above:Expected: 03/08/2025 (Approximate), Expires: 06/07/2025Start: 03-08-2025 End: 10-40-2230Ghtqcru encounter pcbtuvmsf85/29/2025 1:00 PM EDT Office Visit Maternal- Medicine at [facility] [address] [facility] [place] [address] Kenya Acosta PA-C [address] [address] [facility]: 02-21-2025 End: 01-57-3854Wjbpots encounter womesflgp11/14/2025 1:20 PM EDT Routine NOMS BCP OB [address] [place] [address] Nolan Cortes, DO [address] [place] [address] NOMS BCP OBStart: 02-14-2025 End: 72-27-3992Qnafxctfxmjz / ancillary services ikaiqjztbr43/07/2025 1:00 PM EDT Ancillary Procedure NOMS BCP OB [address] [place] [address] NOMS BCP OBStart: 02-10-2025 End: 95-98-8850owegjeqgag67/03/2025 1:30 PM EDT Support Visit Maternal- Medicine at [facility] [address] [place] [address] Violet Lopez, RN [address] [address] Jewels Pedersen, JHONNY [address] [place] [address] [facility]: 01-24-2025 End: 05-31-5290Pvdkrox encounter /17/2025 11:20 AM EDT Routine NOMS BCP OB [address] [place] [address] Nolan Cortes, DO [address] [place] [address] NOMS [facility] OBStart: 12-28-2024 End: 62-10-6273Grcsxycpdbg of glucose 1 hour after glucose challenge for glucose tolerance testGlucose tolerance, 1 hour Lab Routine Diabetes mellitus screening Expected: 12/28/2024 (Approximate), Expires: 12/28/2025[facility] Work Phone: comment on above:Expected: 12/28/2024 (Approximate), Expires: 12/28/2025Start: 12-28-2024 End: 27-90-6698Ldmysde encounter procedureNOMOUNTAIN COMMUNITY [facility] OBComment on above:Arrived Start: 12-27-2024 End: 99-99-2697Nbkcfps encounter /17/2025 1:40 PM EST [facility] [address] [place] [address] Nolan Cortes, DO [address] [facility] [place] [address] NOMS [facility] OBStart: 11-26-2024 End: 88-95-7202DFZ/RhABO/Rh Lab Routine Missed menses , unspecified gestational age Expected: 11/26/2024 (Approximate), Expires: 11/26/2025[facility] HealthcareComment on above:Expected: 11/26/2024 (Approximate), Expires: 11/26/2025Start: 11-26-2024 End: 57-76-5995Ljgxd type and Indirect antibody screen panel - BloodType and screen Lab Routine Missed menses , unspecified gestational age Expected: 11/26/2024 (Approximate), Expires: 11/26/2025[facility] Work Phone: comment on above:Expected: 11/26/2024 (Approximate), Expires: 11/26/2025Start: 11-26-2024 End: 56-95-1377Uxush of abuse panel - Urine by Screen methodRapid drug screen, urine Lab Routine , unspecified gestational age Encounter for supervision of normal first in first trimester Expected: 11/26/2024 (Approximate), Expires: 11/26/2025[facility] HealthcareComment on above:Expected: 11/26/2024 (Approximate), Expires: 11/26/2025Start: 16-96-9131Jxthteosu vaccinationInfluenza VaccineWayne HealthCare Main Campus SystemStart: 18-47-0111Uobtj BMI ScreeningAdult BMI ScreeningWayne HealthCare Main Campus SystemStart: 56-50-3696Dmkjkpe ScreeningTobacco ScreeningWayne HealthCare Main Campus SystemStart: 45-28-7973VCpB,Tdap and Td Vaccines (1 - Tdap)DTaP,Tdap and Td Vaccines (1 - Tdap)[facility] SystemStart: 21-20-0550Zxrssyysei ScreeningDepression ScreeningWayne HealthCare Main Campus SystemStart: 89-59-7912Ljmdgvk ScreeningTobacleveland area hospital – [facility] ScreeningC[facility]rington Hospital Bacteria identified in Urine by CultureUrine culture Microbiology Routine Missed menses Ordered: 11/26/2024[facility] HealthcareComment on above:Ordered: 11/26/2024 CBC W Auto Differential panel - BloodCBC and differential Lab Routine Missed menses , unspecified gestational age Ordered: 11/26/2024[facility] Comment on above:Ordered: 11/26/2024 End: 60-40-9686Wkeresjwechxi metabolic 2000 panel - Serum or PlasmaComprehensive metabolic panel Lab Routine Gestational diabetes mellitus (GDM) in second trimester controlled on oral hypoglycemic drug 1 Occurrences starting 03/08/2025 until 03/08/2026[facility] Work Phone: comment on above:1 Occurrences starting 03/08/2025 until 03/08/2026Hemoglobin A1c/Hemoglobin.total in BloodHemoglobin A1c Lab Routine Missed menses , unspecified gestational age Ordered: 11/26/2024 [facility] HealthcareComment on above:Ordered: 11/26/2024Hepatitis B virus surface Ag [Presence] in Serum or Plasma by ImmunoassayHepatitis B surface antigen Lab Routine Missed menses , unspecified gestational age Ordered: 11/26/2024 [facility] HealthcareComment on above:Ordered: 11/26/2024Hepatitis C virus Ab [Presence] in Serum or Plasma by ImmunoassayHepatitis C antibody Lab Routine Missed menses , unspecified gestational age Ordered: 11/26/2024[facility] HealthcareComment on above:Ordered: 11/26/2024HIV-1/HIV-2 antigen/antibody combination immunoassayHIV-1 and HIV-2 antibodies Lab Routine Missed menses , unspecified gestational age Ordered: 11/26/2024[facility] HealthcareComment on above:Ordered: 11/26/2024Reagin Ab [Presence] in Serum by RPRRPR Lab Routine Missed menses , unspecified gestational age Ordered: 11/26/2024[facility] HealthcareComment on above:Ordered: 11/26/2024Rubella antibody, IgGRubella antibody, IgG Lab Routine Missed menses , unspecified gestational age Ordered: 11/26/2024[facility] HealthcareComment on above:Ordered: 11/26/2024 End: 31-72-9481XG for pregnancyUS OB follow up transabdominal approach Imaging Routine Gestational diabetes mellitus (GDM), antepartum, gestational diabetes method of control unspecified H/O: hypertension i9lpehr for 4 Occurrences starting 04/05/2025 until 10/06/2025[facility] Healthcare Work Phone: comment on above:d7zdphp for 4 Occurrences starting 04/05/2025 until 10/06/2025 Immunizations Immunization DateImmunizationNotesCare TfllxjhcXmlftauu51-86-1405rjmjxyzpv virus vaccine, unspecified formulationKareem Hall COSMETOLOGY EDUCATOR-SOCIAL SERVICES SPECIALIST Work Phone: [facility]10-16-2021RHO(D) immune globulin- IV or IMKareem Hall COSMETOLOGY EDUCATOR-SOCIAL SERVICES SPECIALIST Work Phone: [facility] Payers DatePayer CategoryPayerPolicy [id number] [facility] Member Subscriber Plan / Payer (Effective 2021-Present) Name: Charlene Purvis MemberID: [id number] Relation to Subscriber: Self Name: Charlene Purvis ID: Not on file Type: Not on file Address: [address] [id number] Health [facility] - PPOANTHEM [id number].9.807051.[id number] 2..1.350618.3.57[id number] 2..1.088158.3.57[id number] 2..1.882605.3.57[id number] 2.0.1.838394.3.57[id number] 2.0.1.497223.3.57[id number] 2.0.1.504776.3.57[id number] 2..1.497408.3.57[id number] 2.0.1.931183.3.579.[id number] 2.0.1.982785.3.57[id number] 2.16840.1.343278.3.579.2.[id number] 2.16840.1.633706.3.579.[id number] 2.16840.1.923103.3.57[id number] 2.840.1.899450.3.57[id number] 2.840.1.577155.3.57[id number] 2.840.1.067673.3.57[id number] 2.840.1.779055.3.57[id number] 2.840.1.160717.3.579.[id number] 2.840.1.881342.3.57[id number] 2.840.1.094442.3.57[id number] 2.840.1.158932.3.57[id number] 2.840.1.750148.3.579.[id number] 2.840.1.167454.3.579.2.2[id number] 2.840.1.826081.3.579.2.173169-98-8617Pezjgxr57734144 2.840.1.635950.3.579.2.4[id number] 2.16.840.1.505092.3.579.2.748916-28-6604Sngiqoi3434015 2.16.840.1.429045.3.579.2.100626-02-2571Oqdloyl8899470 2..840.1.307714.3.57[id number] 2.16.840.1.911199.3.579.2.555208-26-5000Jpoioiw2365410 2..840.1.062621.3.57[id number] 2.16.840.1.791832.3.579.2.617143-78-7452Uyacnas2949040 2.0.1.512330.3.57[id number] 2.840.1.138795.3.579.2.374[id number] Social History DateTypeDetailFacilityStart: 02-18-2023 End: 08-66-7505Smvofnn smoking status NHISEx-smokerNOIA HealthcareHistory of tobacco useCurrent smokerNOIA HealthcareHistory of tobacco useCigarette Smoker [facility] HealthcareStart: 03-18-2024 End: 23-48-7681Ubjhceaju beverage intakeLifetime non-drinker (finding)[facility] HealthcareStart: 03-18-2024 End: 96-74-4691Ycwtmrq of Social functionNOIA HealthcareStart: 03-18-2024 End: 53-41-9120Kxjipdp use panelNOIA HealthcareStart: 46-45-5201PxcsmjxefOYSJ HealthcareStart: 88-08-3865Ykq assigned at birthNot on fileNOIA Healthcare History of tobacco useTobacco Use Types Packs/Day Years Used Date Smoking Tobacco: Former Vaping/E-cigarettes Smokeless Tobacco: NeverProMedica Health SystemStart: 19-17-9376Bwzqrvl use and exposureSmokeless tobacco non-user [facility] SystemStart: 02-07-2025 End: 91-28-1200Sjaagnacm beverage intakeEx-drinker (finding)[facility]art: 45-63-6179HxqjepefwVjochmwFovLwgcwd Health SystemStart: 10-05-2018 Alcohol CommentrarePProvidence Hospital SystemStart: 04-92-9968Avs assigned at FemaleWayne HealthCare Main Campus SystemStart: 30-96-7490OxzEmidsu (finding)[facility] SystemStart: 05-93-5668Dqmooi identityIdentifies as female gender (finding)[facility] SystemStart: 84-91-0432Qluikp orientationHeterosexual (finding)[facility] Medical Equipment Procedure CodeEquipment CodeEquipment Original TextEquipment IdentifierDates [id number], [id number], [id number]: 01-24-2025 End: 02-23-2025 Clinical Notes 11-26-2024 to 07-14-2025 Note Date & EgiwAdvhYboxdlvz04-10-5308 History of Present illness Narrative* Blank Albrecht NP - 07/14/2025 1:30 PM EDT Reason for [...] Noted Benign essential hypertension in obstetric context ([facility]) 04/18/2023 Exposure to cat feces 04/18/2023 Gestational diabetes ([facility]) 04/18/2023 Nausea 04/18/2023 History of delivery 02/24/2023 Resolved Ambulatory Problems Diagnosis Date Noted No Resolved Ambulatory Problems Past Medical History: Diagnosis Date Chronic hypertension affecting ([facility]) Exposure to cat feces, sequela Former smoker Herpes exposure History of miscarriage Morbid obesity with BMI of 40.0-44.9, adult ([facility]) HISTORY PAST MEDICAL HISTORY SOCIAL HISTORY Past Medical History: Diagnosis Date Chronic hypertension affecting ([facility]) Exposure to cat feces, sequela Former smoker Gestational diabetes ([facility]) Herpes exposure History of miscarriage Morbid obesity with BMI of 40.0-44.9, adult ([facility]) Social History Tobacco Use Smoking status: Former [...] nursing note reviewed. Exam conducted with a bonding machine setter present. Vitals: Estimated body mass index is 44.76 kg/m as calculated from the following: Height as of 09/09/23: 5' 7 . Weight as of 06/30/25: 285 lb 12.8 oz. BP: No LMP recorded. ASSESSMENT & PLAN ICD-10-CM 1. 6 weeks follow-up ([facility]) Z39.2 2. Spontaneous vaginal delivery ([facility]) O80 Post Follow Up: Patient is doing [...] of: Blank Albrecht NP documented in this encounterLee's Summit HospitalLfqaatppoq04-90-4792 History of Present illness Narrative* JOANNE Hernandez - 07/07/2025 1:50 PM EDT 5Reason for Appointment: Patient ID: Charlene Purvis is a 34 y.o. female who presents for No chief complaint on file. Patient presents today via telephone call for a telehealth appointment. Patients Phone #: [phone] (mobile) Date: 07/07/2025 Time: 2:18 PM of [...] Noted Benign essential hypertension in obstetric context ([facility]) 04/18/2023 Exposure to cat feces 04/18/2023 Gestational diabetes ([facility]) 04/18/2023 Nausea 04/18/2023 History of delivery 02/24/2023 Resolved Ambulatory Problems Diagnosis Date Noted No Resolved Ambulatory Problems Past Medical History: Diagnosis Date Chronic hypertension affecting ([facility]) Exposure to cat feces, sequela Former smoker Herpes exposure History of miscarriage Morbid obesity with BMI of 40.0-44.9, adult ([facility]) Family History Problem Relation Name Age of [...] behalf of: JOANNE Hernandez documented in this encounterLee's Summit [id number] History of Present illness Narrative* JOANNE Hernandez [...] Noted Benign essential hypertension in obstetric context ([facility]) 04/18/2023 Exposure to cat feces 04/18/2023 Gestational diabetes ([facility]) 04/18/2023 Nausea 04/18/2023 History of delivery 02/24/2023 Resolved Ambulatory Problems Diagnosis Date Noted No Resolved Ambulatory Problems Past Medical History: Diagnosis Date Chronic hypertension affecting ([facility]) Exposure to cat feces, sequela Former smoker Herpes exposure History of miscarriage Morbid obesity with BMI of 40.0-44.9, adult ([facility]) HISTORY PAST MEDICAL HISTORY SOCIAL HISTORY Past Medical History: Diagnosis Date Chronic hypertension affecting ([facility]) Exposure to cat feces, sequela Former smoker Gestational diabetes ([facility]) Herpes exposure History of miscarriage Morbid obesity with BMI of 40.0-44.9, adult ([facility]) Social History Tobacco Use Smoking status: Former [...] behalf of: JOANNE Hernandez documented in this encounterLee's Summit HospitalZsuywalfyo18-55-1782 NoteUT Cardiology [facility] Bertrand Purvis is a 34 y.o. year old [...] use: Yes Comment: occasional Drug use: Never COURTNEY Charlene is seen as a new patient [...] rhythm, normal ECG Assessment/ (more content not included)...[facility] 06-23-2025 History of Present illness Narrative* Blank Albrecht, SOPHIA - 06/23/2025 9:30 AM EDT Reason for [...] Noted Benign essential hypertension in obstetric context ([facility]) 04/18/2023 Exposure to cat feces 04/18/2023 Gestational diabetes ([facility]) 04/18/2023 Nausea 04/18/2023 History of delivery 02/24/2023 Resolved Ambulatory Problems Diagnosis Date Noted No Resolved Ambulatory Problems Past Medical History: Diagnosis Date Chronic hypertension affecting ([facility]) Exposure to cat feces, sequela Former smoker Herpes exposure History of miscarriage Morbid obesity with BMI of 40.0-44.9, adult ([facility]) HISTORY PAST MEDICAL HISTORY SOCIAL HISTORY Past Medical History: Diagnosis Date Chronic hypertension affecting ([facility]) Exposure to cat feces, sequela Former smoker Gestational diabetes ([facility]) Herpes exposure History of miscarriage Morbid obesity with BMI of 40.0-44.9, adult ([facility]) Social History Tobacco Use Smoking status: Former [...] Noted Benign essential hypertension in obstetric context ([facility]) 04/18/2023 Exposure to cat feces 04/18/2023 Gestational diabetes ([facility]) 04/18/2023 Nausea 04/18/2023 History of delivery 02/24/2023 Resolved Ambulatory Problems Diagnosis Date Noted No Resolved Ambulatory Problems Past Medical History: Diagnosis Date Chronic hypertension affecting ([facility]) Exposure to cat feces, sequela Former smoker Herpes exposure History of miscarriage Morbid obesity with BMI of 40.0-44.9, adult ([facility]) HISTORY PAST MEDICAL HISTORY SOCIAL HISTORY Past Medical History: Diagnosis Date Chronic hypertension affecting ([facility]) Exposure to cat feces, sequela Former smoker Gestational diabetes ([facility]) Herpes exposure History of miscarriage Morbid obesity with BMI of 40.0-44.9, adult ([facility]) Social History Tobacco Use Smoking status: Former [...] nursing note reviewed. Exam conducted with a bonding machine setter present. Vitals: Estimated body mass index is 44.34 kg/m as calculated from the following: Height as of 10/31/23: 5' 7 . Weight as of this [...] of: Blank Albrecht NP documented in this encounterLee's Summit [id number] History of Present illness Narrative* Carole Maxwell [...] Noted Benign essential hypertension in obstetric context ([facility]) 04/18/2023 Exposure to cat feces 04/18/2023 Gestational diabetes ([facility]) 04/18/2023 Nausea 04/18/2023 History of delivery 02/24/2023 Resolved Ambulatory Problems Diagnosis Date Noted No Resolved Ambulatory Problems Past Medical History: Diagnosis Date Chronic hypertension affecting ([facility]) Exposure to cat feces, sequela Former smoker Herpes exposure History of miscarriage Morbid obesity with BMI of 40.0-44.9, adult ([facility]) HISTORY PAST MEDICAL HISTORY SOCIAL HISTORY Past Medical History: Diagnosis Date Chronic hypertension affecting ([facility]) Exposure to cat feces, sequela Former smoker Gestational diabetes ([facility]) Herpes exposure History of miscarriage Morbid obesity with BMI of 40.0-44.9, adult ([facility]) Social History Tobacco Use Smoking status: Former [...] nursing note reviewed. Exam conducted with a bonding machine setter present. Vitals: Estimated body mass index is 43.67 kg/m as calculated from the following: Height as of 09/09/23: 5' 7 . Weight as of this encounter: 278 lb 12.8 oz. BP: 118/74 No LMP recorded. ASSESSMENT & PLAN ICD-10-CM 1. Encounter for visit ([facility]) Z39.2 2. Blood pressure check Z01.30 Patient [...] of: Nolan Cortes DO documented in this encounterLee's Summit HospitalZjygsttpqo74-04-1096 History of Present illness Narrative* Grace Arita [...] Noted Benign essential hypertension in obstetric context ([facility]) 04/18/2023 Exposure to cat feces 04/18/2023 Gestational diabetes ([facility]) 04/18/2023 Nausea 04/18/2023 History of delivery 02/24/2023 Resolved Ambulatory Problems Diagnosis Date Noted No Resolved Ambulatory Problems Past Medical History: Diagnosis Date Chronic hypertension affecting ([facility]) Exposure to cat feces, sequela Former smoker Herpes exposure History of miscarriage Morbid obesity with BMI of 40.0-44.9, adult ([facility]) HISTORY PAST MEDICAL HISTORY SOCIAL HISTORY Past Medical History: Diagnosis Date Chronic hypertension affecting ([facility]) Exposure to cat feces, sequela Former smoker Gestational diabetes ([facility]) Herpes exposure History of miscarriage Morbid obesity with BMI of 40.0-44.9, adult ([facility]) Social History Tobacco Use Smoking status: Former [...] nursing note reviewed. Exam conducted with a bonding machine setter present. Vitals: Estimated body mass index is 49.34 kg/m as calculated from the following: Height as of 09/09/23: 5' 7 . Weight as of this encounter: 315 lb. BP: 158/88 Patient's last menstrual period was 09/17/2024. ASSESSMENT & PLAN ICD-10-CM 1. Throbbing headache R51.9 2. Encounter for visit ([facility]) Z39.2 Pt presents with a throbbing headache- pt being sent to [facility] for observation pt delivered 06/03/25. Pt to continue labetalol. Pt to return in one week for BP check and headache check. Documented by Grace Arita LPN on behalf of: Nolan Cortes DO documented in this encounterLee's Summit HospitalLnyrzyppbl85-95-4119 History of Present illness Narrative* Kareem Hall APRN-SOCIAL SERVICES SPECIALIST - 06/02/2025 9:30 AM EDT REASON FOR OFFICE VISIT: Video Visit via Real-time Synchronous Audiovisual Provider Location: [facility] [address] [facility] [id number] Patient Location: Patient's home Video Visit Consent [...] that there are some limitations compared to [id number] evaluations. The patient consented to the presence [...] pain. +FM. She is being followed at [facility] due to GDMA2. States she [...] 10/27/2018 Performed by Vince Ardon DO at [facility] mole removed from neck [...] TSH 0.495 01/31/2023 No results found for: [id number] Lab Results Component Value Date CREATININE 0.49 [...] and Type 2 diabetes were reviewed. Continue [facility] Recommended carbohydrate allocation ranges: 30-45 g [...] by e-mail to: or by fax to: [phone] TIME OF CONSULTATION: 15 minutes with the patient, >50% in discussion and counseling, coordination of care which was [id number], review of records and communication back to referring provider. FRACISCO Trejo 06/02/25 0942 documented in this encounterCherrington Hospital07-22-2025 History of Present illness Narrative* JOANNE [...] Noted Benign essential hypertension in obstetric context ([facility]) 04/18/2023 Exposure to cat feces 04/18/2023 Gestational diabetes ([facility]) 04/18/2023 Nausea 04/18/2023 History of delivery 02/24/2023 Resolved Ambulatory Problems Diagnosis Date Noted No Resolved Ambulatory Problems Past Medical History: Diagnosis Date Chronic hypertension affecting ([facility]) Exposure to cat feces, sequela Former smoker Herpes exposure History of miscarriage Morbid obesity with BMI of 40.0-44.9, adult ([facility]) HISTORY PAST MEDICAL HISTORY SOCIAL HISTORY Past Medical History: Diagnosis Date Chronic hypertension affecting ([facility]) Exposure to cat feces, sequela Former smoker Gestational diabetes ([facility]) Herpes exposure History of miscarriage Morbid obesity with BMI of 40.0-44.9, adult ([facility]) Social History Tobacco Use Smoking status: Former [...] ASSESSMENT & PLAN ICD-10-CM 1. Third trimester ([facility]) Z34.93 POCT urinalysis dipstick manually resulted CULTURE, GROUP B STREP WITH SUSCEPTIBLITY CULTURE, GROUP B STREP WITH SUSCEPTIBLITY 2. 36 weeks gestation of ([facility]) Z3A.36 Return OB: Patient presents today for [...] behalf of: JOANNE Hernandez documented in this encounterLee's Summit HospitalSnawuwsipl80-61-3313 History of Present illness Narrative* JOANNE Hernandez [...] Noted Benign essential hypertension in obstetric context ([facility]) 04/18/2023 Exposure to cat feces 04/18/2023 Gestational diabetes ([facility]) 04/18/2023 Nausea 04/18/2023 History of delivery 02/24/2023 Resolved Ambulatory Problems Diagnosis Date Noted No Resolved Ambulatory Problems Past Medical History: Diagnosis Date Chronic hypertension affecting ([facility]) Exposure to cat feces, sequela Former smoker Herpes exposure History of miscarriage Morbid obesity with BMI of 40.0-44.9, adult ([facility]) HISTORY PAST MEDICAL HISTORY SOCIAL HISTORY Past Medical History: Diagnosis Date Chronic hypertension affecting ([facility]) Exposure to cat feces, sequela Former smoker Gestational diabetes ([facility]) Herpes exposure History of miscarriage Morbid obesity with BMI of 40.0-44.9, adult ([facility]) Social History Tobacco Use Smoking status: Former [...] ASSESSMENT & PLAN ICD-10-CM 1. Third trimester ([facility]) Z34.93 POCT urinalysis dipstick manually resulted 2. 35 weeks gestation of ([facility]) Z3A.35 3. induced hypertension, antepartum ([facility]) O13.9 CANCELED: Creatinine CANCELED: Protein, urine, 24 [...] behalf of: JOANNE Hernandez documented in this encounterLee's Summit [id number] Miscellaneous Notes* Telephone Encounter - Rufina Hurd CMA - 05/24/2025 8:37 AM EDT PAPER WINDER CALLED PATIENT. NO ANSWER. LEFT ASKING PATIENT TO EMAIL US HER BLOOD GLUCOSE LOGS SO THATTHEY CAN BE REVIEWED BY OUR DIABETES TEAM. documented in this encounterCherrington Hospital07-15-2025 Telephone encounter Note* Telephone Encounter - Rufina Hurd CMA - 05/24/2025 8:37 AM EDT PAPER WINDER CALLED PATIENT. NO ANSWER. LEFT VM ASKING PATIENT TO EMAIL US HER BLOOD GLUCOSE LOGS SO THATTHEY CAN BE REVIEWED BY OUR DIABETES TEAM. [facility]07-08-[facility] History of Present illness Narrative* Grace [...] Noted Benign essential hypertension in obstetric context ([facility]) 04/18/2023 Exposure to cat feces 04/18/2023 Gestational diabetes ([facility]) 04/18/2023 Nausea 04/18/2023 History of delivery 02/24/2023 Resolved Ambulatory Problems Diagnosis Date Noted No Resolved Ambulatory Problems Past Medical History: Diagnosis Date Chronic hypertension affecting ([facility]) Exposure to cat feces, sequela Former smoker Herpes exposure History of miscarriage Morbid obesity with BMI of 40.0-44.9, adult ([facility]) HISTORY PAST MEDICAL HISTORY SOCIAL HISTORY Past Medical History: Diagnosis Date Chronic hypertension affecting ([facility]) Exposure to cat feces, sequela Former smoker Gestational diabetes ([facility]) Herpes exposure History of miscarriage Morbid obesity with BMI of 40.0-44.9, adult ([facility]) Social History Tobacco Use Smoking status: Former [...] nursing note reviewed. Exam conducted with a bonding machine setter present. Vitals: Estimated body mass index is 47.58 kg/m as calculated from the following: Height as of 09/09/23: 5' 7 . Weight as of this encounter: 303 lb 12.8 oz. BP: 126/78 Patient's last menstrual period was 09/17/2024. ASSESSMENT & PLAN ICD-10-CM 1. Third trimester ([facility]) Z34.93 2. 34 weeks gestation of ([facility]) Z3A.34 3. Gestational diabetes mellitus (GDM), antepartum, gestational diabetes method of control unspecified ([facility]) O24.419 Return OB: Patient presents today for [...] of: Nolan Cortes DO documented in this encounterLee's Summit HospitalDhdvkulidh12-04-2897 History of Present illness Narrative* Blank Albrecht, COMPOUND MIXER - 05/02/2025 10:50 AM EDT Reason for [...] Noted Benign essential hypertension in obstetric context ([facility]) 04/18/2023 Exposure to cat feces 04/18/2023 Gestational diabetes ([facility]) 04/18/2023 Nausea 04/18/2023 History of delivery 02/24/2023 Resolved Ambulatory Problems Diagnosis Date Noted No Resolved Ambulatory Problems Past Medical History: Diagnosis Date Chronic hypertension affecting ([facility]) Exposure to cat feces, sequela Former smoker Herpes exposure History of miscarriage Morbid obesity with BMI of 40.0-44.9, adult ([facility]) HISTORY PAST MEDICAL HISTORY SOCIAL HISTORY Past Medical History: Diagnosis Date Chronic hypertension affecting ([facility]) Exposure to cat feces, sequela Former smoker Gestational diabetes ([facility]) Herpes exposure History of miscarriage Morbid obesity with BMI of 40.0-44.9, adult ([facility]) Social History Tobacco Use Smoking status: Former [...] nursing note reviewed. Exam conducted with a bonding machine setter present. Vitals: Estimated body mass index is 47.16 kg/m as calculated from the following: Height as of 09/09/23: 5' 7 . Weight as of this encounter: 301 lb 1.9 oz. BP: 130/82 Patient's last menstrual period was 09/17/2024. ASSESSMENT & PLAN ICD-10-CM 1. 32 weeks gestation of ([facility]) Z3A.32 POCT urinalysis dipstick manually resulted 2. Third trimester ([facility]) Z34.93 POCT urinalysis dipstick manually resulted Return [...] She is sending her glucose logs to [facility] for review. She has continued with NST / BPP. Orders Placed This Encounter Procedures POCT urinalysis dipstick manually resulted Follow Up: Patient is to return to office in 2 week for routine OB appointment. Documented by Blank Albrecht NP on behalf of: Blank Albrecht NP documented in this encounterLee's Summit HospitalIkylhrewey90-67-2355 Miscellaneous Notes* Telephone Encounter - Rufina Hurd CMA - 04/29/2025 9:31 AM EDT PAPER WINDER CALLED THE PATIENT. NO ANSWER. LEFT VM ASKING THE PATIENT TO GIVE US A CALL TO SCHEDULE HER 4 WEEK FOLLOW UP APPOINTMENT AT THE REQUEST OF HER PROVIDER. LEFT OUR NUMBER AND INSTRUCTED HER TO SELECT OPTION 3 TO REACH ONE OF OUR SCHEDULERS. documented in this encounterCherrington Hospital06-20-2025 Telephone encounter Note* Telephone Encounter - Rufina Hurd CMA - 04/29/2025 9:31 AM EDT PAPER WINDER CALLED THE PATIENT. NO ANSWER. LEFT VM ASKING THE PATIENT TO GIVE US A CALL TO SCHEDULE HER 4 WEEK FOLLOW UP APPOINTMENT AT THE REQUEST OF HER PROVIDER. LEFT OUR NUMBER AND INSTRUCTED HER TO SELECT OPTION 3 TO REACH ONE OF OUR SCHEDULERS. 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 PAST OBSTETRICAL HISTORY: OB History 3 Para 1 Term 1 AB 1 Living 1 SAB 1 IAB Ectopic Multiple Live Births 1 SURGICAL HISTORY: Past Surgical History: Procedure Laterality Date ELBOW SURGERY Right LAPAROSCOPIC CHOLECYSTECTOMY N/A 10/27/2018 Performed by Vince Ardon DO at [facility] mole removed from neck [...] on 11/27/24 ---> [facility] - Baseline preeclampsia labs: CMP, Plts, urine [...] Delivery recommendations : - Recommend delivery at [id number] - reviewed with patient - Discuss delivery [...] by e-mail to: or by fax to: [phone] Kenya Acosta PA-C Maternal- Medicine Office phone: [phone] Kenya Acosta PA-C 04/19/25 1051 documented in this encounterCherrington Hospital06-10-2025 Miscellaneous Notes* Telephone Encounter - Rufina Hurd CMA - 04/19/2025 8:44 AM EDT PAPER WINDER CALLED PATIENT. NO ANSWER. LEFT VM FOR PATIENT TO EMAIL US HER BLOOD GLUCOSE LOG FOR HER UPCOMING APPOINTMENT WITH KENYA AT 10:30 AM documented in this encounterCherrington Hospital06-10-2025 Telephone encounter Note* Telephone Encounter - Rufina Hurd CMA - 04/19/2025 8:44 AM EDT PAPER WINDER CALLED PATIENT. NO ANSWER. LEFT VM FOR PATIENT TO EMAIL US HER BLOOD GLUCOSE LOG FOR HER UPCOMING APPOINTMENT WITH KENYA AT 10:30 AM [facility]06-09-20[facility] History of Present illness Narrative* Blank [...] Morbid obesity with BMI of 40.0-44.9, adult ([facility]) HISTORY PAST MEDICAL HISTORY SOCIAL HISTORY Past Medical History: Diagnosis Date Chronic hypertension affecting Exposure to cat feces, sequela Former smoker Gestational diabetes Herpes exposure History of miscarriage Morbid obesity with BMI of 40.0-44.9, adult ([facility]) Social History Tobacco Use Smoking status: Former [...] nursing note reviewed. Exam conducted with a bonding machine setter present. Vitals: Estimated body mass index is [...] of: Nolan Cortes DO documented in this encounterLee's Summit HospitalEviqoudqyu59-38-7693 History of Present illness Narrative* Grace Arita, RADHA - 04/05/2025 1:50 PM EDT Reason for [...] Morbid obesity with BMI of 40.0-44.9, adult ([facility]) HISTORY PAST MEDICAL HISTORY SOCIAL HISTORY Past Medical History: Diagnosis Date Chronic hypertension affecting Exposure to cat feces, sequela Former smoker Gestational diabetes Herpes exposure History of miscarriage Morbid obesity with BMI of 40.0-44.9, adult ([facility]) Social History Tobacco Use Smoking status: Former [...] nursing note reviewed. Exam conducted with a bonding machine setter present. Vitals: Estimated body mass index is [...] of: Nolan Cortes DO documented in this encounterLee's Summit HospitalTboeqnjgjx50-00-4530 History of Present illness Narrative* Kareem Isabel, GABINO-SOCIAL SERVICES SPECIALIST - 03/23/2025 10:30 AM EDT REASON FOR OFFICE VISIT: Video Visit via Real-time Synchronous Audiovisual Provider Location: [facility] AT [address] [id number] Patient Location: Patient's home Video Visit Consent [...] that there are some limitations compared to rijc-td-bjzx evaluations. The patient consented to the presence [...] chest pain. She is being [facility] States she is following [...] 10/27/2018 Performed by Vince Ardon DO at [facility]GERY mole removed from neck [...] TSH 0.495 01/31/2023 No results found for: [id number] Lab Results Component Value Date CREATININE 0.49 [...] baby. Little research has been done on moth exterminator effects of Metformin exposure to the fetus. [...] by e-mail to: or by fax to: [phone] TIME OF CONSULTATION: 25 minutes with the patient, >50% in discussion and counseling, coordination of care which was jrth-le-kcqz, review of records and communication back to referring provider. FRACISCO Trejo 03/23/25 1058 documented in this encounterCherrington Hospital05-14-2025 Miscellaneous Notes* Telephone Encounter - Rufina Hurd CMA - 03/23/2025 8:54 AM EDT PAPER WINDER CALLED PATIENT. NO ANSWER. LEFT VM FOR PATIENT TO EMAIL US HER BLOOD GLUCOSE LOG SO THAT WE WILL HAVE IT FOR HER APPOINTMENT TODAY. documented in this encounterCherrington Hospital05-14-2025 Telephone encounter Note* Telephone Encounter - Rufina Hurd CMA - 03/23/2025 8:54 AM EDT PAPER WINDER CALLED PATIENT. NO ANSWER. LEFT VM FOR PATIENT TO EMAIL US HER BLOOD GLUCOSE LOG SO THAT WE WILL HAVE IT FOR HER APPOINTMENT TODAY. [facility] [employer] [id number] Miscellaneous Notes* Telephone Encounter - Violet Lopez RN - 03/16/2025 11:29 AM EDTSummary: [facility] Blood Glucose Log Called. No answer. Message left requesting more FBS numbers from this week as noted recently started Metformin this past Friday03/11/25. documented in this encounterCherrington Hospital05-07-2025 Telephone encounter Note* Telephone Encounter - Violet Lopez RN - 03/16/2025 11:29 AM EDTSummary: [facility] Blood Glucose Log Called. No answer. Message left requesting more FBS numbers from this week as noted recently started Metformin this past Friday03/11/25. [facility] Work Phone: [phone] 574-897905-05-2025 History of Present illness Narrative* Carole Maxwell [...] Morbid obesity with BMI of 40.0-44.9, adult ([facility] HISTORY PAST MEDICAL HISTORY SOCIAL HISTORY Past Medical History: Diagnosis Date Chronic hypertension affecting Exposure to cat feces, sequela Former smoker Gestational diabetes Herpes exposure History of miscarriage Morbid obesity with BMI of 40.0-44.9, adult ([facility]) Social History Tobacco Use Smoking status: Former [...] nursing note reviewed. Exam conducted with a bonding machine setter present. 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 jail data on children whose mothers took oral [...] cell free dna - Anatomy survey with [facility] - please contact us if you would [...] Delivery recommendations : - Recommend delivery at [id number] - reviewed with patient - Discuss delivery [...] by e-mail to: or by fax to: [phone] Kenya Acosta PA-C Maternal- Medicine Office phone: [phone] Kenya Acosta PA-C 03/08/25 0480 * Rufina Hurd CMA - 03/08/2025 1:00 [...] male Have you been seen here at [facility] in a previous ? Yes/with daughter Recent ER visits or hospitalizations? no Bring blood sugar log or meter with you today? (Please bring them with you for every visit at [facility]) yes Flu vaccine (Sep-January)? Any concerns that you would like me to mention to the provider today? [facility] Miscellaneous Notes* Medical Student - Mariana [...] the legal medical record. documented in this encounterCher[facility]04-29-2025 Progress note* Medical Student - Mariana [...] a part of the legal medical record. [facility] Miscellaneous Notes* Telephone Encounter - Rufina Hurd CMA - 03/08/2025 9:39 AM EDT Public Utilities Sales Representative called patient. No answer. Left voicemail for the patient to email us her blood glucose logsfor her upcoming appointment today with Kenya Acosta. Also stated if she had any questions she could give us a call at [phone]. documented in this encounterCherrington Hospital04-29-2025 Telephone encounter Note* Telephone Encounter - Rufina Hurd CMA - 03/08/2025 9:39 AM EDT Public Utilities Sales Representative called patient. No answer. Left voicemail for the patient to email us her blood glucose logsfor her upcoming appointment today with Kenya Acosta. Also stated if she had any questions she could give us a call at [phone]. [facility] [id number] Miscellaneous Notes* Telephone Encounter - Shima Renee RN - 03/04/2025 8:31 AM EDT Patient returned call, discussed all but 1 fasting is elevated which meets criteria for a medication start appointment. Patient states she was on insulin with last and expected this to happen again. Transferred to scheduling. documented in this encounterCher[facility] Hospital04-25-2025 Telephone encounter Note* Telephone Encounter - Shima Renee RN - 03/04/2025 8:31 AM EDT Patient returned call, discussed all but 1 fasting is elevated which meets criteria for a medication start appointment. Patient states she was on insulin with last and expected this to happen again. Transferred to scheduling. [facility] [id number] Miscellaneous Notes* Telephone Encounter - Shima Renee RN - 03/02/2025 10:15 AM EDT Called and left voicemail regarding blood sugar log with 6 fasting elevations. Notified patient this does meet criteria to come in and speak to a provider regarding medication start. Number for scheduling provided. Encouraged patient to call diabetes line with any questions. documented in this encounterUniversity Hospitals St. John Medical CenterBucky Box [id number] Telephone encounter Note* Telephone Encounter - Shima Renee RN - 03/02/2025 10:15 AM EDT Called and left voicemail regarding blood sugar log with 6 fasting elevations. Notified patient this does meet criteria to come in and speak to a provider regarding medication start. Number for scheduling provided. Encouraged patient to call diabetes line with any questions. [facility] Healthcare [phone] Miscellaneous Notes* Telephone Encounter - JHONNY Tripathi - 02/24/2025 9:30 AM EDT Called regarding blood sugar and food logs from 02/21/2025-02/20/2025. All her fasting blood sugars are elevated. Asked her to return my call at [phone]. Charlene called back. Currently doing peanut butter [...] in blood sugars weekly. documented in this encounterUniversity Hospitals St. John Medical CenterSimbionix [facility] [id number] Telephone encounter Note* Telephone Encounter - JHONNY Tripathi - 02/24/2025 9:30 AM EDT Called regarding blood sugar and food logs from 02/21/2025-02/20/2025. All her fasting blood sugars are elevated. Asked her to return my call at [phone]. Charlene called back. Currently doing peanut butter [...] time. Continueto send in blood sugars weekly. [employer] Work Phone: 1(640) 229-782804-14-2025 History of Present illness Narrative* Carole Maxwell LPN - 02/21/2025 1:20 PM EDT Reason for [...] Morbid obesity with BMI of 40.0-44.9, adult ([facility]) HISTORY PAST MEDICAL HISTORY SOCIAL HISTORY Past Medical History: Diagnosis Date Chronic hypertension affecting Exposure to cat feces, sequela Former smoker Gestational diabetes Herpes exposure History of miscarriage Morbid obesity with BMI of 40.0-44.9, adult ([facility]) Social History Tobacco Use Smoking status: Former [...] nursing note reviewed. Exam conducted with a bonding machine setter present. Vitals: Estimated body mass index is [...] of: Nolan Cortes DO documented in this encounterLee's Summit [id number] Group counseling note* Group Note - Alexandria [...] Face to face time was 75 minutes. [employer] Work Phone: [phone]) 545-743604-09-2025 Miscellaneous Notes* Group Note - Alexandria Robert RD - 02/16/2025 9:30 AM EDT Patient: Charlene Solble Date: 02/16/2025 Vitals: 04/09/25 1318 Weight: 129.7 kg (286 lb) Patient [...] time was 75 minutes. documented in this encounterCher[facility] Hospital03-31-2025 History of Present illness Narrative* Sakshi Lemus RN - 02/07/2025 1:19 PM EDT PAPER CHART ABSTRACTED FOR DIABETIC ED AT [facility]. documented in this encounterCherrington Hospital02-18-2025 History of Present illness Narrative* Grace [...] Morbid obesity with BMI of 40.0-44.9, adult ([facility]) HISTORY PAST MEDICAL HISTORY SOCIAL HISTORY Past Medical History: Diagnosis Date Chronic hypertension affecting Exposure to cat feces, sequela Former smoker Gestational diabetes Herpes exposure History of miscarriage Morbid obesity with BMI of 40.0-44.9, adult ([facility]) Social History Tobacco Use Smoking status: Former [...] nursing note reviewed. Exam conducted with a bonding machine setter present. Vitals: Estimated body mass index is [...] or undercooked meat, and stay away from [facility]. Patient has been consulted regarding any further do's and don'tsof . Patient voiced understanding and all questions and concerns were answered. Orders Placed This Encounter Procedures POCT urinalysis dipstick manually resulted Follow Up: Patient is to return in 4 weeks for routine OB appointment. Documented by Grace Arita LPN on behalf of: Nolan Cortes DO documented [facility] this [facility]01-17-2025 Miscellaneous Notes* Result Encounter Note - Danay Ortega LPN - 11/26/2024 9:39 AM EST Order Attached to FS documented in this [facility]01-17-2025 Progress note* Result Encounter Note - Danay Ortega LPN - 11/26/2024 9:39 AM EST Order Attached to FS [facility] Work Phone: 1(262) 956-783101-17-2025 History of Present illness Narrative* Danay Ortega [...] Morbid obesity with BMI of 40.0-44.9, adult ([facility]) Family History Problem Relation Name Age of [...] or undercooked meat, and stay away from [facility]. Patient has also been advised to not [...] by: Danay Ortega LPN documented in this encounterNOIA HealthcareEvaluation note* Diagnosis Missed menses , unspecified [...] for diabetes education [facility]* Diagnosis Second trimester state, incidental 22 weeks gestation of documented [facility] this [facility]* Diagnosis Gestational diabetes mellitus (GDM) in second trimester controlled on oral hypoglycemic drug- Primary [facility]* Diagnosis Second trimester state, incidental 25 weeks gestation of documented [facility]* Diagnosis Gestational diabetes mellitus (GDM) in second trimester controlled on oral hypoglycemic drug documented in this encounter [facility]* Diagnosis Third trimester state, incidental [...] hypoglycemic drug- Primary documented in this encounter [facility]* Diagnosis 32 weeks gestation of [...] hypoglycemic drug- Primary documented in [facility] encounter [facility]* Diagnosis Throbbing headache Headache Encounter for visit ([facility]) documented [facility] this encounter [facility]* Diagnosis Encounter for visit ([facility]) Blood pressure check Screening for hypertension documented [facility]* Diagnosis Blood pressure check Screening for hypertension documented [facility]* Diagnosis BP check Screening for hypertension documented [facility]* Diagnosis Benign essential hypertension in obstetric context, antepartum ([facility] Primary documented in this encounter [facility]* Diagnosis 6 weeks follow-up ([facility]) Spontaneous vaginal delivery ([facility]) Normal delivery documented in this encounter [facility] HealthcareInstructionsNot on filedocumented in this encounterProMedico Health SystemInstructionsNot on filedocumented in this encounterProSycamore Medical Center SystemInstructionsNot on filedocumented in this encounterProMedico Health SystemInstructionsNot on filedocumented in this encounterProSycamore Medical Center System Summary Purpose Family History No Family History Records FoundNo Family History Records FoundNo Family History Records FoundNo Family History Records Found Advance Directives No Advanced Directives Records FoundNo Advanced Directives Records FoundNo Advanced Directives Records FoundNo Advanced Directives Records Found Additional Source Comments INFORMATION SOURCE (unrecogn ized section and content) DATE CREATED AUTHOR 04/18/2023 [facility] DATE CREATED AUTHOR AUTHOR'S ORGANIZ ATION 06/03/2025 [facility] DATE CREATED AUTHOR AUTHOR'S ORGANIZ ATION 06/28/2025 [facility] DATE CREATED AUTHOR AUTHOR'S ORGANIZ ATION 07/16/2025 [facility] EPIC Reason for Visit (unrecogniz ed section and content) ReasonCommentsAmenorrheaReasonCommentsRoutine VisitReasonComments Gestational DiabetesSpecialtyDiagnoses / ProceduresReferred By ContactReferred To ContactMaternal and Medicine Diagnoses Encounter for diabetes education Nolan Cortes, DO [address] [place] [address] [place] [address] Phone: tel: fax: Maternal- Medicine at [facility] [address] [facility] [place] [address] Phone: tel: fax: Referral IDStatusReasonStart DateExpiration DateVisits RequestedVisits [id number] Review Specialty Services Required /[id number] Start-GDMReasonCommentsBlood Pressure CheckReasonCommentsPostpartum Follow-upBlood Pressure CheckReasonComments CarePt [...] BE BASED ON THE PRIMARY CLINICAL RECORDS. [facility]. provides no warranty or guarantee of the accuracy or completeness of information in this document.
[2025-09-22 12:47] LABS: Hematocrit 40.4 % (36.0-48.0); Hemoglobin 14.3 g/dL (12.0-16.0); Immature Granulocytes Abs Auto 0.02 10^3/uL (0.00-0.03); Immature Granulocytes Pct Auto 0.3 % (0.0-0.5); Lymphocytes Absolute Auto 2.9 10^3/uL (1.2-3.8); Mean Corpuscular HGB Conc 35.4 g/dL (29.9-35.2); Mean Corpuscular Hemoglobin 32.6 pg (26.7-34.0); Mean Corpuscular Volume 92.0 fL (81.0-99.0); Platelet Count 177 10^3/uL (150-450); Red Blood Count 4.39 10^6/uL (4.20-5.40); White Blood Count 7.2 10^3/uL (4.0-11.0)
[2025-09-22 13:49] LABS: Alanine Aminotransferase 44 U/L (14-59); Albumin Globulin Ratio 1.1; Albumin Level 3.6 g/dL (3.4-5.0); Alkaline Phosphatase 92 U/L (46-116); Anion Gap 10.9; Aspartate Amino Transferase 21 U/L (15-37); Blood Urea Nitrogen 11.0 mg/dL (7.0-18.0); Calcium 8.4 mg/dL (8.5-10.1); Carbon Dioxide 28.7 mmol/L (21.0-32.0); Chloride 102 mmol/L (98-107); Estimated GFR (African America >60 (>=60 mL/min/1.73m^2); Estimated GFR (Non-African Ame >60 (>=60 mL/min/1.73m^2); Globulin 3.4 g/dL; Glucose 160 mg/dL (74-106); Potassium 3.6 mmol/L (3.5-5.1); Sodium 138 mmol/L (136-145); Thyroid Stimulating Hormone 1.485 uIU/mL (0.358-3.740); Total Protein 7.0 g/dL (6.4-8.2)
[2025-09-23 08:13] LABS: FSH 4.9 mIU/mL (.)
== END 2025-09-22 12:17 | disposition home or self-care (01) ==
LOC: LAB 12:17
PROVIDERS: Visit Provider Nurse Practitioner Family
DX: E28.2 Polycystic ovarian syndrome (principal); Z76.89 Persons encountering health services in other specified circumstances
CPT/HCPCS: 36415; 80053; 82627; 83001; 83002; 83036; 84439; 84443; 84702; 85025

== ENCOUNTER 2025-11-07 13:02 | Outpatient (OUT) | payer BC, SELFPAY ==
--- NOTE | 2025-11-07 13:00 | CA_ITS ---
Patient Name: KIRA CASTELLON MR#: [id number] : 1990 Exam Date: 11/07/2025 Ordering Doctor: DR JENNIFER MACIEL M.D. ECHOCARDIOGRAM REPORT PROCEDURE: CA ECHO DOPPLER COMPLETE INDICATIONS: Left ventricular hypertension COMPARISON: None. DESCRIPTION: COMPLETE ECHOCARDIOGRAM Real-time transthoracic echocardiography with 2D, M-mode, spectral and color flow Doppler performed. QUALITY: Technical quality was adequate. LEFT VENTRICLE: Normal chamber size. Normal left ventricular wall thickness. Normal systolic function. Estimated LVEF is 55 to 60% LV EF: Normal left ventricular ejection fraction, (>55%). DIASTOLIC: Normal diastolic function. ATRIAL SEPTUM: LEFT ATRIUM: Normal chamber size. RIGHT ATRIUM: Normal chamber size. RIGHT VENTRICLE: Normal chamber size. Normal right ventricular systolic function. TRICUSPID VALVE: Normal mobility and thickness. No stenosis with trivial regurgitation. No evidence of pulmonary hypertension. RVSP 20 mmHg MITRAL VALVE: Normal mobility and thickness. No evidence of mitral valve stenosis. There is no mitral annular calcification. No mitral regurgitation. AORTIC VALVE: Normal trileaflet appearance. No visible sclerosis. Normal leaflet mobility. No evidence of aortic valve stenosis. No aortic regurgitation. AORTIC ROOT: Normal diameter and appearance, measuring 3.3 cm. PULMONIC VALVE: Normal thickness and mobility. No stenosis. No regurgitation. PERICARDIUM: No evidence of pericardial effusion. IVC: Not well visualized. PLEURA: CONCLUSION: 1. Normal ventricular size and systolic function. Estimated LVEF is 55-60%. 2. Normal diastolic function. 3. No significant valvular dysfunction. 4. Normal right-sided pressures. Adult Echocardiography Procedure Report Left Ventricle LVEDD (3.7 - 5.6 cm): 4.15 cm LVESD (2.2 - 4.0 cm): 3.02 cm LVIVS thickness (0.6 - 1.2 cm): 0.87 cm LVPW thickness (0.5 - 1.0 cm): 0.91 cm e': 0.13 m/s E - e': 4.19 LVOT Max Gradient: 3.51 mm[Hg] LVOT Area (cm2): 0.94 m/s Peak Velocity (LVOT): 0.94 m/s Mean Velocity (LVOT): 0.63 m/s LVOT Diameter 2.15 cm Left Ventricular Ejection Fraction: 55-60 % Left Atrium LA Volume Index (2D A2C): 23.49 ml/m2 Left Atrium Systolic Dimension: 3.60 cm Mitral Valve MV E to A Ratio: 0.92 Mitral Valve A-Wave Peak Velocity: 0.60 m/s Mitral Valve E-Wave Peak Velocity: 0.55 m/s Right Ventricle Aorta AO Root Diam: 3.33 cm Aortic Valve AoV Area (Peak Juan): 2.15 cm2, 2.15 cm2 AoV Area (VTI): 1.96 cm2, 1.96 cm2 Peak Velocity(Antegrade Flow): 1.58 m/s Peak Gradient(Antegrade Flow): 10.03 mm[Hg] Mean Velocity(Antegrade Flow): 0.91 m/s Mean Gradient(Antegrade Flow): 4.29 mm[Hg] Velocity Time Integral: 26.78 cm Tricuspid Valve Peak Velocity (Regurgitant Flow): 2.08 m/s Pulmonic Valve Mean Gradient: 2.29 mm[Hg] Mean Velocity: 0.71 m/s Peak Velocity: 1.08 m/s Peak Gradient: 4.69 mm[Hg] Right Atrium Right Atrium Systolic Pressure: 31.94 ml, 31.94 ml Dictated by: Jennifer Maciel M.D. on 11/07/2025 at 16:04 Approved by: Jennifer Maciel M.D. on 11/07/2025 at 16:07
--- OUTSIDE RECORDS SUMMARY | 2025-11-07 13:05 | XMS_ITS | Clinical Summary ---
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6 oz pure alcohol)occasionalUT Safety & EnvironmentAnswerDate RecordedFear of Current or Ex-PartnerNot on file01/01/2024Emotionally AbusedNot on file01/01/2024hysically AbusedNot on file01/01/2024Sexually AbusedNot on file01/01/2024hysically or Sexually AbusedNot on file01/01/2024CommentsNoSex and Gender Information ValueDate RecordedSex Assigned at EdjfoHbsqrn15/13/2025 2:55 PM EDTLegal Sex Bdilcs3205/09/2022 12:40 AM EDTGender YxxzjileTikfjo48/13/2025 2:55 PM EDTSexual OrientationHeterosexual or Uacteegj47/13/2025 2:55 PM EDT Last Filed Vital Signs Vital SignReadingTime TakenCommentsBlood Jadwoqqs954/8206/27/2025 1:05 PM EDT Fvdeu086306/27/2025 1:05 PM EDTTemperature--Respiratory Rate--Oxygen Saturation 100%06/27/2025 1:05 PM EDTInhaled Oxygen Concentration--Fqndlv943 kg (284 lb) 06/27/2025 1:05 PM XGCAdupfj373.2 cm (5' 7 )06/27/2025 1:05 PM EDTBody Mass Index44.48006/27/2025 1:05 PM EDT Plan of Treatment Health MaintenanceDue DateLast DoneCommentsDepression Mynlqtyzo29/15/2005 Varicella Vaccines (1 of 2 - 13+ 2-dose series)2005Pap Smear2013 Adult Bpowimf9911/24/2014HPV Vaccines (1 - 3-dose SCDM series)2019Cervical Cancer Fffyqkfhq56/15/2023HPV/Firtka113COVID-19 Vaccine (2024- season)2025Influenza Vaccine (#1)2025Zoster Vaccines (1 [...] on patient's age to complete this topic Insurance MemberSubscriberPlan / Payer (Effective 2021-Present)Name:Charlene Purvis Relation to Subscriber:SelfName:Charlene Purvis Payer ID:[id number] (NAIC) Type:Not on file Address: [address] [place] [id number]
--- OUTSIDE RECORDS SUMMARY | 2025-11-07 13:05 | XMS_ITS | Clinical Summary ---
Author Organization [facility] Healthcare Address [address] [place] [address] Care Team Providers Care Mule Operator Name Role Phone Unavailable Primary Care Provider Unavailabl e Allergies No known active allergies Medications MedicationSigDispense QuantityRefillsLast FilledStart DateEnd DateStatus FeroSul 325 (65 Fe) MG tablet Take 325 mg by mouth in the morning. Take with meals.06/10/2025tive ascorbic acid (Vitamin C) 500 MG ER capsule Take 500 mg by mouth DailyActive metFORMIN XR (Glucophage-XR) 500 MG 24 hr tablet Indications:Encounter for weight management,PCOS (polycystic ovarian syndrome) Take 2 tablets (1,000 mg) by mouth in the evening. Take with meals Do not crush, chew, or split. 30 tablet ctive phentermine (Adipex-P) 37.5 MG tablet Indications:Encounter for weight managementTake 1 tablet (37.5 mg) by mouth in the morning. Take before meals. 30 tablet ctive labetalol (Normodyne) 100 MG tablet Indications:Encounter for visit ([facility]),Blood pressure checkTake 2 tablets (200 mg) by mouth in the morning and 2 tablets (200 mg) in the evening and 2 tablets(200 mg) before bedtime. 180 tablet Discontinued metFORMIN XR (Glucophage-XR) 500 MG 24 hr tablet Indications:Encounter for weight management,PCOS (polycystic ovarian syndrome) Take 1 tablet (500 mg) by mouth in the evening. Take with meals Do not crush, chew, or split. 30 tablet Discontinued(Therapy completed) phentermine (Adipex-P) 37.5 MG tablet Indications:Encounter for weight managementTake 1 tablet (37.5 mg) by mouth in the morning. Take before meals. 30 tablet Discontinued Active Problems ProblemNoted DateDiagnosed DateBenign essential hypertension in obstetric context ([facility])04/18/2023Exposure to cat feces04/18/2023estational diabetes ([facility])04/18/20232482Gauznl18/09/2023History of awaddsfn63/17/2023 Encounters DateTypeDepartmentCare EdtcCxaabdvzrqh09/10/2025 8:30 AM ESTOffice Visit [facility] [address] [place] [address] Armida Albrecht NP Encounter for weight management; PCOS (polycystic ovarian syndrome)10/19/2025amboo flowsheet [facility] [address] [place] [address] Armida Albrecht NP 10/04/2025Telephone [facility] [address] [place] [address] Armida Albrecht NP 09/22/2025linisync Result Encounter [facility] External Department Unsolicited Armida Albrecht NP 09/22/2025Telephone [facility] [address] [place] [address] Carole Maxwell LPN 09/21/2025 10:30 AM ESTOffice Visit [facility] [address] [place] [address] Armida Albrecht NP PCOS (polycystic ovarian syndrome) (Primary Dx); Encounter for weight /12/2025amboo flowsheet [facility] [address] [place] [address] Armida Albrecht NP 09/14/20252323Rwoywy29/23/2025Telephone [facility] [address] [place] [address] Margo Lozoya MA from Last 3 Months Family History [...] Last Filed Vital Signs Vital SignReadingTime TakenCommentsBlood Srvxwpmt826/7410/19/2025 8:32 AM EST Pulse--Temperature--Respiratory Rate--Oxygen Saturation--Inhaled Oxygen Concentration--Ijppvf904 kg (307 lb 12.8 oz)10/19/2025 8:32 AM CXPUecksn763.2 cm (5' 7 )09/21/2025 10:38 AM ESTBody Mass Index48. 10:38 AM EST Plan of Treatment DateTypeDepartmentCare Team (Latest Contact Info)Acnbcxjvaps10/07/2026 8:50 AM ESTOffice Visit [facility] [address] [place] [address] Armida Albrecht NP [address] [facility] [place] [address] Procedures Procedure NamePriorityDate/TimeAssociated DiagnosisCommentsALL FOLLICLE STIMULATING HLMFQRNGskhill27/13/2025 12:38 PM EST ALL LUTEINIZING JXMSENDWenrddc56/13/2025 12:38 PM EST ALL DHEA MIUEJLTFkjmcou32/13/2025 12:38 PM EST ALL THYROXINE (T4) YQXPGntytgs41/13/2025 12:38 PM EST [facility] PREG QUANT SUMHudzsne03/13/2025 12:38 PM EST ALL THYROID STIM NSGWCCAKtugnjs10/13/2025 12:38 PM EST CCF CMP (CMP) (FOR REMOTE [facility] USE)Drkplsq3109/22/2025 12:38 PM EST MLR HEMOGLOBIN T8XIxpffga57/13/2025 12:38 PM EST ALL CBC WITH AUTO IBTSNgwamzx96/13/2025 12:38 PM EST POCT , OEVVBLftdslu15/12/2025 10:50 AM EST Encounter for weight management from Last 3 Months Results * [facility] PREG QUANT HCG (09/22/2025 12:38 PM EST)ComponentValueRef RangeTest Method Analysis TimePerformed AtPathologist SignatureHCG QUANTITATIVE<1mIU/mLTBH Comment: 5-50 ? 0.2-1 WEEK 50-500 ? 1-2 WEEKS 100-5,000 ?2-3 WEEKS 500-10,000 ? 3-4 WEEKS 1,000-50,000 ?? 4-5 WEEKS 10,000-100,000 5-6 WEEKS 15,000-200,000 6-8 WEEKS 10,000-100,000 2-3 MONTHS Specimen (Source)Anatomical Location / LateralityCollection Method / Volume Collection TimeReceived Time09/22/2025 12:38 PM EST09/22/2025 12:40 PM EST Narrative CLINISYNC - 09/22/2025 2:14 PM EST Authorizing ProviderResult TypeResult StatusArmida Kilpatrickerly [facility]ITALLINISYNCFinal ResultPerforming OrganizationAddressCity/State/ZIP CodePhone Number [facility] * MLR HEMOGLOBIN A1C (09/22/2025 12:38 PM EST)ComponentValueRef RangeTest Method Analysis TimePerformed AtPathologist SignatureGLYCOHEMOGLOBIN A1C5.64.5 - 6.2 %TBHComment: ADA RECOMMENDED LIMIT 4.0 - 6.0 ADA THERAPEUTIC TARGET < 7.0 ACTION SUGGESTED > 7.0 ESTIMATED AVERAGE PDKSQRG470dv/dLTBHSpecimen (Source)Anatomical Location / LateralityCollection Method / VolumeCollection TimeReceived Time09/22/2025 12:38 PM EST09/22/2025 12:40 PM EST Narrative CLINISYNC - 09/22/2025 1:18 PM EST Authorizing ProviderResult TypeResult StatusArmida Albrecht [facility]ITALLINISYNCFinal ResultPerforming OrganizationAddressCity/State/ZIP CodePhone Number [facility] * (ABNORMAL) CCF CMP (CMP) (FOR REMOTE [facility] USE) (09/22/2025 12:38 PM EST) ComponentValueRef RangeTest MethodAnalysis TimePerformed AtPathologist AnhjmgzahXYTLNR304643 - 145 mmol/LTBHPOTASSIUM3.63.5 - 5.1 mmol/LTBHCHLORIDE 23256 - 107 mmol/LTBHCARBON UUEUUKU57.721.0 - 32.0 mmol/LTBHANION GAP10.9TBH UOEIXHA009(H)74 - 106 mg/dLTBHBLOOD UREA FKDOWORR48.07.0 - 18.0 mg/dLTBH CREATININE0.660.55 - 1.02 mg/dLTBHTBH EGFR-AF VINCENTIAN>60>=60 mL/min/1.73m 2 TBHTBH EGFR-NON AF VINCENTIAN>60>=60 mL/min/1.73m 2TBHBUN CREATININE RATIO16.7 TBHCALCIUM8.4(L)8.5 - 10.1 mg/dLTBHBILIRUBIN TOTAL0.40.2 - 1.0 mg/dLTBH ASPARTATE AMINO TBBEGHLAZKY6101 - 37 U/LTBHALANINE ATRCDWXOGCTQJSVK2623 - 59 U/LTBHALKALINE EHPKROJVPKD0401 - 116 U/LTBHTOTAL PROTEIN7.06.4 - 8.2 g/dLTBH ALBUMIN LEVEL3.63.4 - 5.0 g/dLTBHGLOBULIN3.4g/dLTBHALBUMIN GLOBULIN RATIO1.1 TBHSpecimen (Source)Anatomical Location / LateralityCollection Method / Volume Collection TimeReceived Time09/22/2025 12:38 PM EST09/22/2025 12:40 PM EST Narrative CLINISYWV - 09/22/2025 2:14 PM EST Authorizing ProviderResult TypeResult StatusArmida Albrecht [facility]ITALLINISYNCFinal ResultPerforming OrganizationAddressCity/State/ZIP CodePhone Number [facility] * ALL THYROXINE (T4) FREE (09/22/2025 12:38 PM EST)ComponentValueRef RangeTest MethodAnalysis TimePerformed AtPathologist SignatureFREE T40.860.76 - 1.46 ng/dLTBHSpecimen (Source)Anatomical Location / LateralityCollection Method / VolumeCollection TimeReceived Time09/22/2025 12:38 PM EST09/22/2025 12:40 PM EST Narrative [facility] - 09/22/2025 2:15 PM EST Authorizing ProviderResult TypeResult StatusArmida Albrecht [facility]INISYNCC[facility] ResultPerforming OrganizationAddressCity/State/ZIP CodePhone Number [facility] * ALL THYROID STIM HORMONE (09/22/2025 12:38 PM EST)ComponentValueRef RangeTest MethodAnalysis TimePerformed AtPathologist SignatureTHYROID STIMULATING HORMONE1.4850.358 - 3.740 uIU/mLTBHSpecimen (Source)Anatomical Location / LateralityCollection Method / VolumeCollection TimeReceived Time09/22/2025 12:38 PM EST09/22/2025 12:40 PM EST Narrative [facility] - 09/22/2025 2:14 PM EST Authorizing ProviderResult TypeResult StatusArmida Albrecht [facility]ITALLINISYNCFinal ResultPerforming OrganizationAddressCity/State/ZIP CodePhone Number [facility] * ALL LUTEINIZING HORMONE (09/22/2025 12:38 PM EST)ComponentValueRef RangeTest MethodAnalysis TimePerformed AtPathologist SignatureLUTEINIZING HORMONE(LH)5.3 . mIU/mLTBHComment: ? Adult Female ?Range ?Follicular phase ?2.4 - ??12.6 ?Ovulation phase ?14.0 - ??95.6 ?Luteal phase ?1.0 - ??11.4 ?Postmenopausal ?7.7 - ??58.5 Specimen (Source)Anatomical Location / LateralityCollection Method / Volume Collection TimeReceived Time09/22/2025 12:38 PM EST09/22/2025 12:40 PM EST Narrative CLINISYNC - 09/23/2025 8:13 AM EST Authorizing ProviderResult TypeResult StatusKristina Trena NPCLINISYNCFinal ResultPerforming OrganizationAddressCity/State/ZIP CodePhone Number CLINISYNC [facility] * ALL FOLLICLE STIMULATING HORMONE (09/22/2025 12:38 PM EST)ComponentValueRef RangeTest MethodAnalysis TimePerformed AtPathologist SignatureFSH4.9. mIU/mL TBHComment: ? Adult Female ? Range ?Follicular phase ?3.5 - ??12.5 ?Ovulation phase ? 4.7 - ??21.5 ?Luteal phase ?1.7 - ?? 7.7 ?Postmenopausal ? 25.8 - 134.8 Performed at: ??CB - [facility] [address] [place], [place] [id number] Final Expense Agent: Quang Mcneil PhD, Phone: ??[phone] Specimen (Source)Anatomical Location / LateralityCollection Method / Volume Collection TimeReceived Time09/22/2025 12:38 PM EST09/22/2025 12:40 PM EST Narrative CLINISYNC - 09/23/2025 8:13 AM EST Authorizing ProviderResult TypeResult StatusArmida [facility] NPCLINISYNCFinal ResultPerforming OrganizationAddressty/State/ZIP CodePhone Number [facility] * ALL DHEA SULFATE (09/22/2025 12:38 PM EST)ComponentValueRef RangeTest Method Analysis TimePerformed AtPathologist SignatureDHEA-EMFDXAV259.084.8 - 378.0 ug/dLTBHSpecimen (Source)Anatomical Location / LateralityCollection Method / VolumeCollection TimeReceived Time09/22/2025 12:38 PM EST09/22/2025 12:40 PM EST Narrative CLINISYNC - 09/23/2025 8:13 AM EST Authorizing ProviderResult TypeResult StatusArmida Trena NPCLINISYNCFinal ResultPerforming OrganizationAddressCity/State/ZIP CodePhone Number [facility] * (ABNORMAL) ALL CBC WITH AUTO DIFF (09/22/2025 12:38 PM EST)ComponentValueRef RangeTest MethodAnalysis TimePerformed AtPathologist SignatureTBH WBC7.24.0 - 11.0 10 3/uLTBHTBH RBC4.394.20 - 5.40 10 6/uLTBHTBH HGB14.312.0 - 16.0 g/dLTBH TBH HCT40.436.0 - 48.0 %TBHTBH MCV92.081.0 - 99.0 fLTBHTBH MCH32.626.7 - 34.0 pgTBHTBH MCHC35.4(H)29.9 - 35.2 g/dLTBHTBH RDW12.511.0 - 15.0 %TBHTBH NOC571 150 - 450 10 3/uLTBHTBH MPV10.49.5 - 13.5 fLTBHNEUTROPHILS PERCENT AUTO48.8 43.0 - 75.0 %TBHLYMPHOCYTES PERCENT AUTO40.420.5 - 60.0 %TBHMONOCYTES PERCENT AUTO4.91.7 - 12.0 %TBHTBH EO %5.30.9 - 7.0 %TBHBASOPHILS PERCENT AUTO0.30.2 - 2.0 %TBHIMMATURE GRANULOCYTES PCT AUTO0.30.0 - 0.5 %TBHNEUTROPHILS ABSOLUTE AUTO3.51.4 - 6.5 10 3/uLTBHLYMPHOCYTES ABSOLUTE AUTO2.91.2 - 3.8 10 3/uLTBH MONOCYTES ABSOLUTE AUTO0.40.3 - 0.8 10 3/uLTBHTBH EO #0.40.0 - 0.7 10 3/uLTBH BASOPHILS ABSOLUTE AUTO0.00.0 - 0.1 10 3/uLTBHIMMATURE GRANULOCYTES ABS AUTO 0.020.00 - 0.03 10 3/uLTBHSpecimen (Source)Anatomical Location / Laterality Collection Method / VolumeCollection TimeReceived Time09/22/2025 12:38 PM EST 09/22/2025 12:40 PM EST Narrative CLINISYNC - 09/22/2025 1:05 PM EST Authorizing ProviderResult TypeResult StatusArmida Albrecht NPCLINISYNCFinal ResultPerforming OrganizationAddressCity/State/ZIP CodePhone Number [facility] * POCT , urine manually resulted (09/21/2025 10:50 AM EST)Component ValueRef RangeTest MethodAnalysis TimePerformed AtPathologist SignaturePreg Test, UrNegativeNegativeSpecimen (Source)Anatomical Location / Laterality Collection Method / VolumeCollection TimeReceived WpqnJoqns94/12/2025 10:50 AM EST Narrative Authorizing ProviderResult TypeResult StatusArmida Albrecht NPPOINT OF CARE TEST ENTER/EDIT ORDERABLESFinal Result from Last 3 Months Insurance
--- OUTSIDE RECORDS SUMMARY | 2025-11-07 13:05 | XMS_ITS | Clinical Summary ---
Demographics Address [address] [place] [address] Mobile Phone Home Phone Email Address Email Address Preferred Language Frisian Marital Status Baptism Affiliation Unknown Race White Ethnic Group Not or Lati no Author Organization [employer] [facility] Address [id number] 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 Name Role Phone Eli Azul MD [...] trimester controlled on oral hypoglycemic drug03/23/2025History of objyqspa87/17/2023 Immunizations ImmunizationAdministration DatesNext DueRho (D) Immune Bvruzsue58/16/2021 Family History Medical HistoryRelationNameCommentsColon cancerMaternal GrandfatherDiabetes MotherHypertensionMotherRelationNameStatusCommentsFatherAliveMaternal GrandfatherDeceasedMotherAlive Social History Tobacco UseTypesPacks/DayYears UsedDateSmoking Tobacco: Former Vaping/E-cigarettesSmokeless Tobacco: Never Tobacco Cessation:Counseling Given: Not Answered Alcohol UseStandard Drinks/WeekCommentsNot Currently0 (1 standard drink = 0.6 oz pure alcohol)rareChildcareAnswerDate UxuxyjdcKuorcocraIsopcoi00/10/2019 EmploymentAnswerDate ItsbgkneEkayclyisjWajltfl76/10/2019Hunger ScreeningAnswer Date RecordedWithin the past 12 months we worried whether our food would run out before we got money to buy more.Never True03/08/2025Within the past 12 months the food we bought just didn't last and we didn't have money to get more.Never True03/08/2025Purpose - LifeAnswerDate RecordedPurpose and direction in life Isldogj12/11/2021CommentsNoSex and Gender InformationValueDate Recorded Sex Assigned at EbdnoMztsnk91/17/2023 5:56 PM EDTLegal KcsWutlrk05/06/2015 11:59 AM EDTGender EmncbeywDhykke79/17/2023 5:56 PM EDTSexual OrientationStraight 02/24/2023 5:56 PM EDT Last Filed Vital Signs Vital SignReadingTime TakenCommentsBlood Zyzkbmqk828/6604 1:08 PM EDT Ktfmv9485 1:08 PM MWDHpzuwfuoche30.9 ??C (98.5 ??F)08/25/2021 8:21 PM EDTRespiratory Kctx884008/25/2021 11:29 PM EDTOxygen Enadmgbqfr06%08/25/2021 11:29 PM EDTInhaled Oxygen Concentration--Bqrmkg987.4 kg (291 lb 12.8 oz)03/08/2025 1:08 PM UZSSbdbtx157.2 cm (5' 7 )08/25/2021 8:21 PM EDTBody Mass Index45.7 08/25/2021 8:21 PM EDT Plan of Treatment Health MaintenanceDue DateLast DoneCommentsDepression Opjlxmpsn45/15/2005Tobacco Ynjlymnzj67/15/2005DTaP,Tdap and Td Vaccines (1 - Tdap)2011Pap Smear dult BMI Raayhqehi74Influenza Vaccine Ruktzoqhn60/01/2025, 10/10/2023 Medical Devices Not on file Insurance * Guarantor: Charlene Purvis TypeRelation to PatientDate of PhoneBilling AddressPersonal/ZvufqvGdgj63/15/1993 [address] [facility] [address] [place] [address] Care Teams Team MemberRelationshipSpecialtyStart DateEnd Date Eli Azul MD PCP - GeneralPediatrics06/23/18
--- OUTSIDE RECORDS SUMMARY | 2025-11-07 13:11 | XMS_ITS | CCD ---
Author Organization [facility] CliniSywv Care Team Providers Care Customer Professional Name Role Phone PETRA ., DR WHITAKER [...] Referring Unavailable GEETA, MELONY Maryjo Primary Care Unavailguillermina HALL, KAREEM Attending Unavailable SEBASTIAN, NOLAN R Referring Unavailable GEETA, MELONY Sibley Primary Care UnavailKENYA Samuels Attending Unavailable GEETA, MELONY Sibley Referring Unavailabl e GEETA, MELONY Sibley Primary Care Unavailguillermina HALL, KAREEM Attending Unavailable GEETA, MELONY Maryjo Referring Unavailabl e GEETA, MELONY Sibley Primary Care Unavailabl e MOUKAJENNIFER SANTA Attending Unavailable SEBASTIAN, NOLAN Attending Unavailable SEBASTIAN, [...] KRISTAN Attending Unavailable TRENA, BLANK Attending Unavailable TRENA, BLANK Attending Unavailable Medications Current Medications MedicationDrug Class(es)DatesSig (Normalized)Sig (Original)ascorbic acid 500 mg extended release oral capsule (11 sources)Vitamin Ctake 1 capsule by mouth once dailyascorbic acid (Vitamin C) 500 MG ER capsule Take 500 mg by mouth Daily Activeaspirin 81 mg delayed release oral tablet (20 sources)Platelet Aggregation Inhibitor, Nonsteroidal Anti-inflammatory Drug End: 94-20-6085hjyz 1 tablet by mouth once dailyaspirin 81 MG EC tablet Take 81 mg by mouth Daily 06/16/2025 Discontinuedaspirin 81 mg chewable tablet Chew 1 tablet (81 mg total) and swallow in the morning. ActiveBlood Glucose Monitoring Suppl (Accu-Chek Guide Me) w/Device kit (20 sources)Start: 02-21-2025 End: 01-96-3265Atppf Glucose Monitoring Suppl (Accu-Chek Guide Me) w/Device kit Indications: Gestational diabetes mellitus (GDM), antepartum, gestational diabetes method of control unspecified (HHS-HCC) , Elevated glucose tolerance test USE TO CHECK BLOOD GLUCOSE IN THE MORNING PRIOR TO BREAKFAST AND ONE HOUR AFTER EACH MEAL FOR A TOTAL OF FOUR TIMES DAILY 1 kit 02/21/2025 06/07/2025 DiscontinuedStart: 53-78-9903Dndcj Glucose Monitoring Suppl (Accu-Chek Guide Me) w/Device kit Indications: Gestational diabetes mellitus (GDM), antepartum, gestational diabetes method of control unspecified (HHS-HCC) , Elevated glucose tolerance test USE TO CHECK BLOOD GLUCOSE IN THE MORNING PRIOR TO BREAKFAST AND ONE HOUR AFTER EACH MEAL FOR A TOTAL OF FOUR TIMES DAILY 1 kit 02/21/2025 Active Start: 52-16-2816Urwkj Glucose Monitoring Suppl (Accu-Chek Guide Me) w/Device [...] Glucometer) w/Device kit (1 source)Start: 01-24-2025 End: 65-52-4032Yuvck Glucose Monitoring Suppl (D-Care Glucometer) w/Device kit [...] oral capsule (4 sources)Cephalosporin AntibacterialStart: 06-10-2025 End: 44-68-1956xwcr 1 capsule by mouth in the morningcephalexin (Keflex) 500 MG capsule Take 500 mg by mouth in the morning and 500 mg before bedtime. 06/23/2025 Discontinuedferrous sulfate 325 mg oral tablet (11 sources)Start: 69-36-7455wvbx 1 tablet by mouth at mealtimeFeroSul 325 (65 Fe) MG tablet Take 325 mg by mouth in the morning. Take with meals. 06/10/2025 Activefurosemide 20 mg oral tablet (2 sources)Loop DiureticStart: 06-10-2025 End: 76-74-5781llqd 1 tablet by mouth once dailyfurosemide (Lasix) 20 MG tablet Take 20 mg by mouth Daily 06/10/2025 06/16/2025 Discontinued (Therapy completed) isopropyl alcohol 0.7 ml/ml medicated pad (20 sources)Start: 01-24-2025 End: 43-62-4994Preiwsn Swabs (Alcohol Prep Pad) 70 % pads Indications: Gestational diabetes mellitus (GDM), antepartum, gestational diabetes method of control unspecified ([facility]) , Elevated glucose tolerance testApply 1 Pad topically Daily Use four times daily to check FSBS. 150 each 3 01/24/2025 06/07/2025 Kmugszouzgqe58 hr metFORMIN hydrochloride 500 mg extended release oral tablet (20 sources)BiguanideStart: 03-08-2025 End: 34-90-1400mbrz 1 tablet by mouth every twenty-four hours in the morning, then take 2 tablets by mouth in the eveningmetFORMIN XR (GLUCOPHAGE XR) 500 mg 24 hr tablet Indications: Gestational diabetes mellitus (GDM) in second trimester controlled on oral hypoglycemic drug Take 500mg in am with breakfast and 1000 mg in pm with dinner 60 tablet 4 03/23/2025 Active End: 37-29-3724osol 1 tablet by mouth at mealtime, then take 1 tablet by mouth every twenty-four hoursmetFORMIN, OSM, (Fortamet) 1000 MG 24 hr tablet Take 1,000 mg by mouth in the evening. Take with meals Do not crush, chew, or split. 06/07/2025 Discontinuedondansetron 4 mg disintegrating oral tablet (20 sources)Serotonin-3 Receptor AntagonistStart: 2024 End: 46-51-6622qjvp 1 tablet by mouth every six hours as needed for nausea and vomiting and nausea and nauseaondansetron ODT (Zofran-ODT) 4 MG disintegrating tablet Indications: Nausea Take 1 tablet (4 mg) bymouth every 6 (six) hours if needed for nausea or vomiting 30 tablet 2 2024 12/24/2024 ActiveStart: 08-25-2021 End: 92-69-5174rugj 1 tablet by mouth every eight hours as needed for nausea ondansetron ODT (ZOFRAN-ODT) 4 mg disintegrating tablet Dissolve 1 tablet (4 mg total) on tongue every 8 (eight) hours as needed for nausea for up to 10 doses. 10 tablet 08/25/2021 Active End: 66-79-5548btxm 1 tablet by mouth every eight hours as needed for nausea and vomitingondansetron (ZOFRAN) 4 mg tablet Take 1 tablet (4 mg total) by mouth every 8 (eight) hours as needed for nausea or vomiting. 03/23/2025 Discontinued (Alternate therapy)microencapsulated potassium chloride 20 meq extended release oral tablet (4 sources)Start: 06-10-2025 End: 75-99-7624dgyyksocq chloride CR (Klor-Con M20) 20 MEQ ER tablet Take 20 mEq by mouth Daily 06/10/2025 06/23/2025 DiscontinuedPrenatal MV & Min w/FA-DHA ( Adult Gummy/DHA/FA) 0.4-25 MG chewable tablet (20 sources)Start: 06-10-2025 End: 09-00-9454Hfbisror MV & Min w/FA-DHA ( Adult Gummy/DHA/FA) 0.4-25 MG chewable tablet Chew 1 capsule Daily 06/10/2025 06/23/2025 DiscontinuedStart: 78-87-9540Bjgtfmgu MV & Min w/FA-DHA ( Adult Gummy/DHA/FA) 0.4-25 MG chewable tablet Chew 1 capsule Daily 06/10/2025 ActiveStart: 12-30-2024 End: 77-14-5863Lgdltmvn MV & Min w/FA-DHA ( Adult Gummy/DHA/FA) 0.4-25 MG chewable tablet Chew 1 each Daily 12/30/2024 06/07/2025 DiscontinuedStart: 36-08-6759Mxhspcmm MV & Min w/FA-DHA ( Adult Gummy/DHA/FA) 0.4-25 MG chewable tablet Chew 1 each Daily 12/30/2024 ActiveStart: 11-29-2024 End: 18-11-4344Vyiceuuj MV & Min w/FA-DHA ( Adult Gummy/DHA/FA) 0.4-25 MG chewable tablet Indications:, unspecified gestational age , Encounter for supervision of normal first in first trimester Chew 1 each Daily 30 tablet 11 11/29/2024 12/29/2024 ActivePrenatal MV & Min w/FA-DHA ( Gummies) 0.18-25 MG chewable tablet (2 sources)Start: 11-26-2024 End: 89-96-2234Enltaoyz MV & Min w/FA-DHA ( Gummies) 0.18-25 MG chewable tablet Indications: , unspecified gestational age , Encounter for supervision of normal first in first trimester Chew 1 tablet Daily 1 tablet 11 11/26/2024 11/26/2025 ActivePrenatal MV-Min-Fe Fum-FA-DHA ( 1 PO) (1 source) End: 26-53-6507Hkeqixrx MV-Min-Fe Fum-FA-DHA ( 1 PO) Take by [...] mg oral tablet (7 sources)SulfonylureaStart: 08-22-2021 End: 03-92-7075qecp 1.5 tablets by mouth once daily at bedtimeglyBURIDE (DIABETA) 2.5 mg tablet Take 1.5 tablets (3.75 mg total) by mouth once daily at bedtime. Pt takes 2.5 mg at bedtime 90 tablet 3 08/22/2021 03/08/2025 Discontinued (Therapy completed)3 ml insulin glargine 100 unt/ml pen injector (1 source)Insulin AnalogStart: 03-23-2025 End: 18-56-4550xgralhc glargine (LANTUS SOLOSTAR U-100 INSULIN) 100 unit/mL (3 mL) insulin pen Prime with 2 units,then inject 10 units SQ into ABD each evening 15 mL 3 03/23/2025 03/23/2025 Discontinued (Alternatetherapy)labetalol hydrochloride 100 mg oral tablet (20 sources)beta-Adrenergic BlockerStart: 06-30-2025 End: 54-56-4372olzx 1 tablet by mouth in the morninglabetalol (Normodyne) 100 MG tablet Indications: BP check Take 1 tablet (100 mg) by mouth in the morning and 1 tablet (100 mg) before bedtime. Do all this for 10 days. 20 tablet 06/30/2025 07/14/2025Discontinued (Therapy completed)Start: 06-10-2025 End: 35-42-5191crhq 2 tablets by mouth in the morning, then take 2 tablets by mouth in the evening, then take 2 tablets by mouth at bedtimelabetalol (Normodyne) 100 MG tablet Indications: Encounter for visit ([facility]) , Blood pressure check Take 2 tablets (200 mg) by mouth in the morning and 2 tablets (200 mg) in the evening and 2 tablets (200 mg) before bedtime. 180 tablet 06/16/2025 Active End: 50-03-5052qcmi 1 tablet by mouth twice dailylabetaloL (NORMODYNE) 100 mg tablet Take 100 mg by mouth 2 (two) times a day. 03/08/2025 Discontinued (Therapy completed)progesterone 200 mg oral capsule (10 sources)ProgesteroneStart: 02-24-2023 End: 44-51-7994cxqyurpioxpj (PROMETRIUM) 200 mg capsule Indications: History of delivery Place 200 mg Inside vagina every night until 36 weeks. 90 capsule 3 02/24/2023 03/23/2025 Discontinued (Therapy completed) Problems Active Problems Problem ClassificationProblemDateDocumented DateEpisodic/ChronicDiabetes mellitus without complication (4 sources)Impaired glucose tolerance (oral); Translations: [IMPAIRED GLUCOSE TOLERANCE ORAL]Onset: 77-08-4522KzsmzntuBqzpa and electrolyte disorders (2 sources)Dehydration; Translations: [Hypokalemia]Onset: 20-65-9686Bwhsroou Headache; including migraine (2 sources)Throbbing headache; Translations: [Throbbing headache]06-07-2025 EpisodicHypertension complicating ; childbirth and the puerperium (20 sources)Benign essential hypertension in obstetric context; Translations: [Pre-existing essential hypertension complicating , unspecified trimester]Onset: 407466-10-8012DicjdrnNkyyygyminyh complicating ; childbirth and the puerperium (2 sources)-induced hypertension; Translations: [Gestational [-induced] hypertension withoutsignificant proteinuria, unspecified trimester]17-88-0812ZzrbbqelNqyjjiewitpmq and screening for infectious disease (2 sources)Encounter for screening for human papillomavirus (HPV); Translations: [Contact with and (suspected)exposure to infections with a predominantly sexual mode of transmission]Onset: 91-32-0936JleaqwgaHovlkqqak disorders (4 sources)Irregular menstruation, unspecified; Translations: [Missed period] Onset: 66-54-8034KnrdpvaUfzde and ill-defined heart disease (2 sources)Cardiomegaly; Translations: [Cardiomegaly]Onset: 12-30-3351Xllnnzt Other circulatory disease (2 sources)H/O: hypertension; Translations: [Personal history of other diseases of the circulatory system]57-74-3017FiwyveouUcsai complications of (1 source)Other specified related conditions, first trimester; Translations: [OTH SPEC PREG RELATEDCOND 1ST TRI]Onset: 74-87-4017GlqmrvvrKagqu female genital disorders (1 source)Other specified noninflammatory disorders of vagina; Translations: [OTH SPEC NONINFLAMMATORY D/O VAGINA]Onset: 04-99-1324TkkkmgtgNwxzh gastrointestinal disorders (1 source)Diarrhea, unspecified; Translations: [DIARRHEA UNSPECIFIED]Onset: 40-98-4048PguoqymiSfgtu and delivery including normal (20 sources)Encounter for supervision of normal , unspecified, second trimester; Translations: [Encounter for supervision of normal , unspecified, first trimester]Onset: 31-71-9918NpvuklglHjufv screening for suspected conditions (not mental disorders or infectious disease) (9 sources)Encounter for screening for malignant neoplasm of cervix; Translations: [Encounter for other screening for genetic and chromosomal anomalies]Onset: 43-92-7223XvbpgxbrFwtsojmb codes; unclassified (4 sources)Personal history of other complications of , childbirth and the puerperium; Translations: [PERS HX OTH COMP PG CHILDBIRTH AND PP]Onset: 89-61-0612UdotxfixNblrdwfq codes; unclassified (1 source)9 weeks gestation of ; Translations: [9 WEEKS GESTATION OF ]Onset: 14-13-2956WxjdskxdFcudjjln codes; unclassified (2 sources)Gestation period, 14 weeks; Translations: [14 weeks gestation of ]69-10-9678SwzzqugeIsmbjuam codes; unclassified (2 sources)Gestation period, 22 weeks; Translations: [22 weeks gestation of ]90-33-1991LwnhbzabSbiwkybh codes; unclassified (2 sources)Gestation period, 25 weeks; Translations: [25 weeks gestation of ]63-02-7377ZrqfymhqHypraxma codes; unclassified (2 sources)Gestation period, 28 weeks; Translations: [28 weeks gestation of ]52-88-1531UwoxtlzrSjbgoaqz codes; unclassified (2 sources)Gestation period, 30 weeks; Translations: [30 weeks gestation of ]07-67-7642RgdrnhosOymtrsts codes; unclassified (2 sources)Gestation period, 32 weeks; Translations: [32 weeks gestation of ]33-35-0107FqrcrotxMzcqjfhf codes; unclassified (2 sources)Gestation period, 34 weeks; Translations: [34 weeks gestation of ]66-67-3337EapdwkhxRlpzpkbc codes; unclassified (2 sources)Gestation period, 35 weeks; Translations: [35 weeks gestation of ]31-03-5285FkpjcgzkRradrfjb codes; unclassified (2 sources)Gestation period, 36 weeks; Translations: [36 weeks gestation of ]72-81-5972SothorelWljteqmzuhtp (1 source)Med Start-GDMOnset: 03-08-2025 Past or Other Problems Problem ClassificationProblemDateDocumented DateEpisodic/Chronic Administrative/social admission (2 sources)Patient encounter status; Translations: [Other specified counseling] Onset: 966036-23-4172FsfkgyteSuhfhrfi or abnormal glucose tolerance complicating ; childbirth; or the puerperium (20 sources)Gestational diabetes mellitus; Translations: [Gestational diabetes mellitus in , unspecified control]Onset: 441153-46-5128Yaoyihxi Nausea and vomiting (20 sources)Nausea with vomiting, unspecified; Translations: [Nausea]Onset: 82-33-3985ZowmkffcLdsxv female genital disorders (20 sources)H/O: premature delivery; Translations: [Personal history of pre-term labor]Onset: 837616-54-3557ItorihdkRgadx injuries and conditions due to external causes (20 sources)Other specified effects of external causes, initial encounter; Translations: [Contact with and (suspected) exposure to other potentially hazardous substances]Onset: 601447-14-2221Lzxvkogf Results Test NameValueInterpretationReference BbobjZartnlam98hp 51-84-124713Ybmokzvy by: JENNIFER GARCIA on: 06/27/2025 01:36 PM Modules accepted: OrdersNormalUniversity [facility], AvonOffice Visiton 03-19-1200Bsqjad-up [id number] Charlene Purvis 1990 F Date Provider Department Center 06/27/2025 [facility]-JNENIFER GARCIA [facility] Hos Family History Problem Relation Age of Onset Heart murmur Mother Family Status - Relation Status Age at Mother Alive Father Alive Level of Service:10693 MS OFFICE/OUTPATIENT NEW LOW MDM 30 MINUTES (25)Normal [facility] CBC WITH AUTO DIFFon 65-14-6194FFWYBUWLB ABSOLUTE JXVT5CVXA HealthcareBasophils/100 WBC (Bld)0.2 %0.2 - 2.0 %NOMS HealthcareEosinophils/100 WBC (Bld)2 %0.9 - 7.0 %NOMS HealthcareErythrocyte distribution width (RBC) [Ratio]14 %11.0 - 15.0 %[facility]OMS HealthcareHematocrit (Bld) [Volume fraction]26.6 %Low36.0 - 48.0 %[facility] HealthcareHemoglobin (Bld) [Mass/Vol]8.8 g/dLLow12.0 - 16.0 g/dLNOAZ HealthcareIMMATURE GRANULOCYTES ABS AUTO0.03NOMS HealthcareImmature granulocytes/100 WBC (Bld)0.4 %0.0 - 0.5 %NOM HealthcareInterpretation and review of laboratory resultsAbnormalNOAZ Healthcare LYMPHOCYTES ABSOLUTE RMEF9CkuUXYP HealthcareLymphocytes/100 WBC (Bld)11.7 %Low 20.5 - 60.0 %[facility] SystemH (RBC) [Entitic mass]31.3 pg26.7 - 34.0 pgNOHarry S. Truman Memorial Veterans' HospitalHC (RBC) [Mass/Vol]33.1 g/dL29.9 - 35.2 g/dLNOHarry S. Truman Memorial Veterans' HospitalV (RBC) [Entitic vol]94.7 fL81.0 - 99.0 fLNOAZ HealthcareMONOCYTES ABSOLUTE AUTO0.7NOMS HealthcareMonocytes/100 WBC (Bld)8 %1.7 - 12.0 %NOM HealthcareNEUTROPHILS ABSOLUTE AUTO6.6HighNOAZ HealthcareNeutrophils/100 WBC (Bld)77.7 %High43.0 - 75.0 %NOM HealthcarePlatelet mean volume (Bld) [Entitic vol]11.2 fL9.5 - 13.5 fLNOSaint John's Regional Health CenterTBH EO #0.2NOMS HealthcareTBH [id number] [facility] HospitalTBH RBC 2.81LowNOMS HealthcareTBH WBC8.5NOMS HealthcareCLINISYNCNOMS HealthcareCTA Chest vessels WO and W contrast Omar 22-91-6716[address] [address] [address] Scan Report Signed Patient: CHARLENE PURVIS MR#: [id number] : 1990 Acct:[id number] Age/Sex: 34 / F ADM Date: Loc: [facility] Attending Dr: Nolan Cortes D.O. Ordering Physician: Nolan Cortes D.O. Date of Service: 06/08/25 Procedure(s): CT angio chest Accession Number(s): [id number] cc: Physician,Non-Staff Nikky [address] [address] Patient Name: CHARLENE RAMIREZN: TBH:[id number] date: 1990 Sex: F Assigned Patient Location: [facility] Current Patient Location: [facility] Accession/Order Number: [id number] Exam Date: 06/08/2025 09:37 Report Date: 06/08/2025 [...] Jr., D.O. 06/08/2025 9:40 AM Dictation Location: [place] [address] Electronically authenticated by: [id number] Y Date: 06/08/2025 09:40 Dictated By: Jacinto Rivas M.D. Signed By: 06/08/2542 DD/ 9 TD/TT: Machine Farmworker:TBHRadiology, Radiologist, - 06/08/[address] [address] [address] Scan Report Signed Patient: CHARLENE PURVIS MR#: [id number] : 1990 Acct:[id number] Age/Sex: 34 / F ADM Date: Loc: [facility] 252-[address]: Nolan Cortes D.O. Ordering Physician: Nolan Cortes D.O. Date of Service: 06/08/25 Procedure(s): CT angio chest Accession Number(s): [id number] cc: Physician,Non-Staff M.Daisy The [address] [address] Patient Name: CHARLENE PURVIS MRN: [id number] date: 1990 Sex: F Assigned Patient Location: [facility] Current Patient Location: [facility] Accession/Order Number: [id number] Exam Date: 06/08/2025 09:37 Report Date: 06/08/2025 [...] Jr., D.O. 06/08/2025 9:40 AM Dictation Location: [place] [address] Electronically authenticated by: [id number] Y Date: 06/08/2025 09:40 Dictated By: Jacinto Rivas M.D. Signed By: 06/08/2542 DD/ 9 TD/TT: Machine Farmworker: [facility] HospitalRadiology Study observation (narrative)[facility] HospitalCTA Chest vessels WO and W contrast IVOrdered By: Radiologist Radiology on 37-96-3706PSDOFitzgibbon Hospital Work Phone: aLL CBC WITH AUTO DIFFon 09-31-2440UZRJMFREV ABSOLUTE FAEY9MSMJ HealthcareBasophils/100 WBC (Bld)0.3 %0.2 - 2.0 %[facility] Healthcare Eosinophils/100 WBC (Bld)3.6 %0.9 - 7.0 %[facility] HealthcareErythrocyte distribution width (RBC) [Ratio]13.4 %11.0 - 15.0 %NOM HealthcareHematocrit (Bld) [Volume fraction]20.6 %Critically low36.0 - 48.0 %[facility] HealthcareComment on above: RESULTS CALLED TO [place] RNHemoglobin (Bld) [Mass/Vol]6.8 g/dL Critically low12.0 - 16.0 g/dLNOAZ HealthcareComment on above:RESULTS CALLED TO [place] RNIMMATURE GRANULOCYTES ABS AUTO0.05HighNOAZ HealthcareImmature granulocytes/100 WBC (Bld)0.7 %High0.0 - 0.5 %[facility] HealthcareInterpretation and review of laboratory resultsAbnormalNOAZ HealthcareLYMPHOCYTES ABSOLUTE AUTO1.3 NOM HealthcareLymphocytes/100 WBC (Bld)17.3 %Low20.5 - 60.0 %[facility] SystemH (RBC) [Entitic mass]32.1 pg26.7 - 34.0 pgNOHarry S. Truman Memorial Veterans' HospitalHC (RBC) [Mass/Vol]33 g/dL29.9 - 35.2 g/dLNOHarry S. Truman Memorial Veterans' HospitalV (RBC) [Entitic vol]97.2 fL81.0 - 99.0 fL NOM HealthcareMONOCYTES ABSOLUTE AUTO0.6NOAZ HealthcareMonocytes/100 WBC (Bld) 8.1 %1.7 - 12.0 %NOM HealthcareNEUTROPHILS ABSOLUTE AUTO5.1NOMS Healthcare Neutrophils/100 WBC (Bld)70 %43.0 - 75.0 %[facility] HealthcarePlatelet mean volume (Bld) [Entitic vol]11.2 fL9.5 - 13.5 fLNOSaint John's Regional Health CenterTBH EO #0.3NOMS Healthcare TB [id number] [facility] RBC2.12LowNOSaint [facility] Hospital WBC7.3NOSaint John's Regional Health CenterCLINISYNCNINTEGRIS [facility] HealthcareALL CBC WITH AUTO DIFFon 16-76-8985WBSUMWHYF ABSOLUTE UNLM0HHWK HealthcareBasophils/100 WBC (Bld)0.1 %Low0.2 - 2.0 %NOM HealthcareEosinophils/100 WBC (Bld)0 %Low0.9 - 7.0 %[facility] HospitalErythrocyte distribution width (RBC) [Ratio]13.8 %11.0 - 15.0 %[facility] HealthcareHematocrit (Bld) [Volume fraction]26.8 %Low36.0 - 48.0 %[facility] HospitalHemoglobin (Bld) [Mass/Vol]8.8 g/dLLow12.0 - 16.0 g/dLNOSaint John's Regional Health CenterIMMATURE GRANULOCYTES ABS AUTO0.1HighNOSaint John's Regional Health CenterImmature granulocytes/100 WBC (Bld)0.9 %High0.0 - 0.5 %[facility] HealthcareInterpretation and review of laboratory resultsAbnormalFitzgibbon HospitalLYMPHOCYTES ABSOLUTE AUTO1.2NOMS HealthcareLymphocytes/100 WBC (Bld) 10.6 %Low20.5 - 60.0 %[facility] SystemH (RBC) [Entitic mass]32 pg26.7 - 34.0 pg NOMSaint Mary's Hospital of Blue SpringsHC (RBC) [Mass/Vol]32.8 g/dL29.9 - 35.2 g/dLDeaconess Incarnate Word Health SystemV (RBC) [Entitic vol]97.5 fL81.0 - 99.0 fLNOSaint John's Regional Health CenterMONOCYTES ABSOLUTE AUTO 0.4NOMS HealthcareMonocytes/100 WBC (Bld)3.7 %1.7 - 12.0 %[facility] NEUTROPHILS ABSOLUTE AUTO9.2HighNOAZ HealthcareNeutrophils/100 WBC (Bld)84.7 % High43.0 - 75.0 %[facility] HospitalPlatelet mean volume (Bld) [Entitic vol]12.5 fL 9.5 - 13.5 fLFitzgibbon HospitalTBH EO #0NOMS [facility] HospitalTBH [id number] Healthcare H RBC2.75LowNOSaint Louis University Hospital WBC10.9NOSaint John's Regional Health CenterCLINISYNCNINTEGRIS [facility] Healthcare ALL CBC WITH AUTO DIFFon 71-81-0146USSMVLKPJ ABSOLUTE LLCF4FQCOSaint John's Regional Health Center Basophils/100 WBC (Bld)0.3 %0.2 - 2.0 %[facility] HospitalEosinophils/100 WBC (Bld) 0.7 %Low0.9 - 7.0 %[facility] HospitalErythrocyte distribution width (RBC) [Ratio] 13.3 %11.0 - 15.0 %[facility] HospitalHematocrit (Bld) [Volume fraction]29.5 %Low 36.0 - 48.0 %[facility] HospitalHemoglobin (Bld) [Mass/Vol]9.9 g/dLLow12.0 - 16.0 g/dLFitzgibbon HospitalIMMATURE GRANULOCYTES ABS AUTO0.05HighNOSaint John's Regional Health CenterImmature granulocytes/100 WBC (Bld)0.4 %0.0 - 0.5 %[facility] HospitalInterpretation and review of laboratory resultsAbnormalFitzgibbon HospitalLYMPHOCYTES ABSOLUTE AUTO0.9 LowFitzgibbon HospitalLymphocytes/100 WBC (Bld)7.5 %Low20.5 - 60.0 %[facility] MCH (RBC) [Entitic mass]32.6 pg26.7 - 34.0 pgNOSaint John's Regional Health CenterMCHC (RBC) [Mass/Vol]33.6 g/dL29.9 - 35.2 g/dLFitzgibbon HospitalMCV (RBC) [Entitic vol]97 fL 81.0 - 99.0 fLFitzgibbon HospitalMONOCYTES ABSOLUTE AUTO0.7NOSaint John's Regional Health Center Monocytes/100 WBC (Bld)6.2 %1.7 - 12.0 %[facility] HospitalNEUTROPHILS ABSOLUTE AUTO 10HighNOMS [facility] HospitalNeutrophils/100 WBC (Bld)84.9 %High43.0 - 75.0 %F[facility] HospitalPlatelet mean volume (Bld) [Entitic vol]12.4 fL9.5 - 13.5 fLFreeman Orthopaedics & Sports Medicine EO #0.1NOMS [facility] [id number] [facility] Hospital RBC3.04Low [facility] WBC11.8HighFitzgibbon HospitalCLINISYNCNDoctors Hospital of SpringfieldALL CBC WITH AUTO DIFFon 40-67-9420QRYTIOYPV ABSOLUTE SZXJ3NQDASaint John's Regional Health CenterBasophils/100 WBC (Bld)0.3 %0.2 - 2.0 %[facility] HospitalEosinophils/100 WBC (Bld)2.2 %0.9 - 7.0 %[facility] HospitalErythrocyte distribution width (RBC) [Ratio]13.2 %11.0 - 15.0 % [facility] HospitalHematocrit (Bld) [Volume fraction]35 %Low36.0 - 48.0 %[facility] HospitalHemoglobin (Bld) [Mass/Vol]11.9 g/dLLow12.0 - 16.0 g/dLFitzgibbon Hospital IMMATURE GRANULOCYTES ABS AUTO0.03NOSaint John's Regional Health CenterImmature granulocytes/100 WBC (Bld)0.5 %0.0 - 0.5 %[facility] HospitalInterpretation and review of laboratory resultsAbnormalFitzgibbon HospitalLYMPHOCYTES ABSOLUTE AUTO1.9NOSaint John's Regional Health Center Lymphocytes/100 WBC (Bld)28.6 %20.5 - 60.0 %[facility] (RBC) [Entitic mass]31.8 pg26.7 - 34.0 pgThe [facility] (RBC) [Mass/Vol]34 g/dL29.9 - 35.2 g/dLDeaconess Incarnate Word Health SystemV (RBC) [Entitic vol]93.6 fL81.0 - 99.0 fLFitzgibbon Hospital MONOCYTES ABSOLUTE AUTO0.6NOMS [facility] HospitalMonocytes/100 WBC (Bld)9.9 %1.7 - 12.0 %[facility] HospitalNEUTROPHILS ABSOLUTE AUTO3.8NOMS [facility] HospitalNeutrophils/100 WBC (Bld)58.5 %43.0 - 75.0 %NOMS HealthcarePlatelet mean volume (Bld) [Entitic vol] 12.6 fL9.5 - 13.5 fLNOMS HealthcareTBH EO #0.1NOMS HealthcareTBH [id number] HealthcareTBH RBC3.74LowNOMS HealthcareTBH WBC6.5NOMS HealthcareCLINISYNCNOMS HealthcareUrinalysis macro (dipstick) panel (U)on 97-69-8319Xntuyigdb, UA NegativeNegative - 4(70) +++ mg/dLNOMS HealthcareBlood, UAPositiveNegative - 50 Eliceo/mcLNOMS HealthcareComment on above:TraceClarity, UAClearNOMS Healthcare Color, UAYellowNOMS HealthcareGlucose, UANegativeNegative - 2000(110) ++++ mg/dL NOMS HealthcareInterpretation and review of laboratory resultsAbnormalNOAZ HealthcareKetones, UAPositiveNegative - 160(16) ++++ mg/dLNOMS HealthcareComment on above:80mg/dLLeukocytes, UAPositiveNegative - 500+++ Danielle/mcLNOMS Healthcare Comment on above:smallNitrite, UANegativeNegative - PositiveNOMS HealthcarepH, UA75 - 9NOMS HealthcareProtein, UAPositiveNegative - 2000(20) ++++ mg/dLNOMS HealthcareComment on above:30mg/dLSpec Grav, UA1.0151 - 1.03NOMS Healthcare Urobilinogen, UA0.20.2 - 12 mg/dLNOAZ HealthcareNOMS HealthcareUS OB BPP W NON-STRESSon 57-35-8318Kmm[place], [place] [address] Ultrasound Report Signed Patient: CHARLENE PURVIS MR#: [id number] : 1990 Acct:[id number] Age/Sex: 34 / F ADM Date: 05/30/25 Loc: [facility] 250-[address]: Nolan Cortes D.O. Ordering Physician: Nolan Cortes D.O. Date of Service: 05/30/25 Procedure(s): US OB BPP w non-stress Accession Number(s): [id number] cc: Sebastian,Nolan D.O.; Physician,Non-Staff MTomas The [address] [address] Patient Name: CHARLENE PURVIS MRN: [facility]:[id number] date: 1990 Sex: F Assigned Patient Location: [facility] Current Patient Location: [facility] Accession/Order Number: [id number] Exam Date: 05/30/2025 15:40 Report Date: 05/30/2025 15:41 At the request of: NOLAN CORTES DO Procedure: US OB BPP w non-stress Biophysical profile. Reason for exam: Gestational diabetes COMPARISON: BPP 05/26/2025 TECHNIQUE: Transabdominal imaging of the gravid uterus was obtained. FINDINGS: The taker off hemp fiber reports a BPP of 8 out of 8. BHAVANI is normal at 11 cm. heart rate 138 bpm. US/US OB BPP w non-stress IMPRESSION: BPP 8 out of 8. Impression dictated by: Jacinto Rivas Jr., D.O. 05/30/2025 3:41 PM Dictation Location: [place] [address] Electronically authenticated by: [id number] Y Date: 05/30/2025 15:41 Dictated By: Jacinto Rivas M.D. Signed By: 05/30/25 1544 DD/ 1541 TD/TT: Machine Farmworker:FARHATadiologshoaib, Radiologist, - 05/30/2025 [place] [address] Ultrasound Report Signed Patient: CHARLENE PURVIS MR#: [id number] : 1990 Acct:[id number] Age/Sex: 34 / F ADM Date: 05/30/25 Loc: [facility] 250-[address]: Nolan Cortes D.O. Ordering Physician: Nolan Cortes D.O. Date of Service: 05/30/25 Procedure(s): US OB BPP w non-stress Accession Number(s): [id number] cc: Nolan Cortes D.O.; Physician,Non-Staff Nikky [address] [address] Patient Name: CHARLENE PURVIS MRN: H:[id number] date: 1990 Sex: F Assigned Patient Location: [facility] Current Patient Location: [facility] Accession/Order Number: [id number] Exam Date: 05/30/2025 15:40 Report Date: 05/30/2025 15:41 At the request of: NOLAN CORTES DO Procedure: US OB BPP w non-stress Biophysical profile. Reason for exam: Gestational diabetes COMPARISON: BPP 05/26/2025 TECHNIQUE: Transabdominal imaging of the gravid uterus was obtained. FINDINGS: The taker off hemp fiber reports a BPP of 8 out of 8. BHAVANI is normal at 11 cm. heart rate 138 bpm. US/US OB BPP w non-stress IMPRESSION: BPP 8 out of 8. Impression dictated by: Jacinto Rivas Jr., D.O. 05/30/2025 3:41 PM Dictation Location: [place] [address] Electronically authenticated by: [id number] Y Date: 05/30/2025 15:41 Dictated By: Jacinto Rivas M.D. Signed By: 05/30/25 1544 DD/ 1541 TD/TT: Machine Farmworker: ROCKY HealthcareRadiology Study observation (narrative)NOMS HealthcareUS OB BPP W NON-STRESSOrdered By: Radiologist Radiology on 92-70-0761AYVQ Healthcare Work Phone: US OB BPP W NON-STRESSon [phone] [address] Ultrasound Report Signed Patient: CHARLENE PURVIS MR#: [id number] : 1990 Acct:[id number] Age/Sex: 34 / F ADM Date: 05/26/25 Loc: [facility] Attending Dr: Nolan Corets D.O. Ordering Physician: Nolan Cortes D.O. Date of Service: 05/26/25 Procedure(s): US OB BPP w non-stress Accession Number(s): [id number] cc: Nolan Cortes D.O.; Physician,Non-Staff Nik[place] The [address] [id number] Patient Name: CHARLENE PURVIS MRN: [facility]:[id number] date: 1990 Sex: F Assigned Patient Location: [facility] Current Patient Location: Accession/Order Number: [id number] Exam Date: 05/26/2025 16:46 Report Date: 05/26/2025 [...] Maxwell M.D. 05/26/2025 4:48 PM Dictation Location: [place] [address] Electronically authenticated by: [id number] Y Date: 05/26/2025 16:48 Dictated By: Marquis Maxwell M.D. Signed By: 05/26/25 1651 DD/ 1648 TD/TT: Machine Farmworker:FARHATadiology, Radiologist, - 05/26/[address] [address] Ultrasound Report Signed Patient: CHARLENE PURVIS MR#: [id number] : 1990 Acct:[id number] Age/Sex: 34 / F ADM Date: 05/26/25 Loc: [facility] Attending Dr: Nolan Cortes D.O. Ordering Physician: Nolan Cortes D.O. Date of Service: 05/26/25 Procedure(s): US OB BPP w non-stress Accession Number(s): [id number] cc: Nolan Cortes D.O.; Physician,Non-Staff Nikky The [place] [id number] Patient Name: CHARLENE PURVIS MRN: [facility]:[id number] date: 1990 Sex: F Assigned Patient Location: [facility] Current Patient Location: Accession/Order Number: [id number] Exam Date: 05/26/2025 16:46 Report Date: 05/26/2025 [...] Maxwell M.D. 05/26/2025 4:48 PM Dictation Location: [place] [address] Electronically authenticated by: [id number] Y Date: 05/26/2025 16:48 Dictated By: Marquis Maxwell M.D. Signed By: 05/26/25 165 DD/ 1648 TD/TT: Machine Farmworker: NOMChip HealthcareRadiology Study observation (narrative)NOMChip HealthcareUS OB BPP W NON-STRESSOrdered By: Radiologist Radiology on 06-00-2657WVOG Healthcare Work Phone: US OB GROWTHon [phone], [place] [address] Ultrasound Report Signed Patient: CHARLENE PURVIS MR#: [id number] : 1990 Acct:[id number] Age/Sex: 34 / F ADM Date: 05/16/25 Loc: US Attending Dr: Nolan Cortes D.O. Ordering Physician: Nolan Cortes D.O. Date of Service: 05/16/25 Procedure(s): US OB growth Accession Number(s): [id number] cc: Nolan Cortes D.O.; Physician,Non-Staff [place] [address] Patient Name: CHARLENE PURVIS MRN: [id number] date: 1990 Sex: F Assigned Patient Location: US Current Patient Location: Accession/Order Number: [id number] Exam Date: 05/25/2025 09:01 Report Date: 05/25/2025 [...] Peña M.D. 05/25/2025 9:12 AM Dictation Location: [place] [address] Electronically authenticated by: [id number] Y Date: 05/25/2025 09:12 Dictated By: Grace Peña M.D. Signed By: 05/25/25914 DD/ 1 TD/TT: Machine Farmworker:FARHATadiologshoaib, Radiologist, - 05/25/2025 [place] [address] Ultrasound Report Signed Patient: CHARLENE PURVIS MR#: [id number] : 1990 Acct:[id number] Age/Sex: 34 / F ADM Date: 05/16/25 Loc: US Attending Dr: Nolan Cortes D.O. Ordering Physician: Nolan Cortes D.O. Date of Service: 05/16/25 Procedure(s): US OB growth Accession Number(s): [id number] cc: Nolan Corets D.O.; Physician,Non-Staff Nikky The [place] [phone] Patient Name: CHARLENE PURVIS MRN: [facility]:[id number] date: 1990 Sex: F Assigned Patient Location: US Current Patient Location: Accession/Order Number: [id number] Exam Date: 05/25/2025 09:01 Report Date: 05/25/2025 [...] Peña M.D. 05/25/2025 9:12 AM Dictation Location: [place] [address] Electronically authenticated by: [id number] Y Date: 05/25/2025 09:12 Dictated By: Grace Peña M.D. Signed By: 05/25/25914 DD/ 1 TD/TT: Machine Farmworker: ROCKY HealthcareRadiology Study observation (narrative)NOMChip HealthcareUS OB GROWTHOrdered By: Radiologist Radiology on 66-17-9760QMZE [employer] Work Phone: US OB BPP W NON-STRESSon [phone], [place] [address] Ultrasound Report Signed Patient: CHARLENE PURVIS MR#: [id number] : 1990 Acct:[id number] Age/Sex: 34 / F ADM Date: 05/23/25 Loc: US Attending Dr: Nolan Cortes D.O. Ordering Physician: Nolan Cortes D.O. Date of Service: 05/23/25 Procedure(s): US OB BPP w non-stress Accession Number(s): [id number] cc: Nolan Cortes D.O.; Physician,Non-Staff Nikky The [place] [phone] Patient Name: CHARLENE PURVIS MRN: [facility]:[id number] date: 1990 Sex: F Assigned Patient Location: [facility] Current Patient Location: Accession/Order Number: [id number] Exam Date: 05/24/2025 06:57 Report Date: 05/24/2025 [...] Peña M.D. 05/24/2025 6:59 AM Dictation Location: [place] [address] Electronically authenticated by: [id number] Y Date: 05/24/2025 06:59 Dictated By: Grace Peña M.D. Signed By: 05/24/25 0702 DD/ 0659 TD/TT: Machine Farmworker:TBHRadiology, Radiologist, - 05/24/2025 [place] [address] Ultrasound Report Signed Patient: CHARLENE PURVIS MR#: [id number] : 1990 Acct:[id number] Age/Sex: 34 / F ADM Date: 05/23/25 Loc: US Attending Dr: Nolan Cortes D.O. Ordering Physician: Nolan Cortes D.O. Date of Service: 05/23/25 Procedure(s): US OB BPP w non-stress Accession Number(s): [id number] cc: Nolan Cortes D.O.; Physician,Non-Staff Nikky The [place] [phone] Patient Name: CHARLENE PURVIS MRN: [facility]:[id number] date: 1990 Sex: F Assigned Patient Location: [facility] Current Patient Location: Accession/Order Number: [id number] Exam Date: 05/24/2025 06:57 Report Date: 05/24/2025 [...] Peña M.D. 05/24/2025 6:59 AM Dictation Location: [place] [address] Electronically authenticated by: [id number] Y Date: 05/24/2025 06:59 Dictated By: Grace Peña M.D. Signed By: 05/24/25 0702 DD/ 0659 TD/TT: Machine Farmworker: NOMChip HealthcareRadiology Study observation (narrative)NOMS HealthcareUS OB BPP W NON-STRESSOrdered By: Radiologist Radiology on 43-33-7245[facility] Work Phone: Urinalysis macro (dipstick) panel (U)on 05-24-2025 Bilirubin, UATraceNegative - 4(70) +++ mg/dLNOMS HealthcareBlood, UANegative Negative - 50 Eliceo/mcLNOMS HealthcareClarity, UAClearNOMS HealthcareColor, UA YellowNOMS HealthcareGlucose, UANegativeNegative - 2000(110) ++++ mg/dLNOMS HealthcareInterpretation and review of laboratory resultsAbnormalNOAZ Healthcare Ketones, UANegativeNegative - 160(16) ++++ mg/dLNOMS HealthcareLeukocytes, UA NegativeNegative - 500+++ Danielle/mcLNOMS HealthcareNitrite, UANegativeNegative - PositiveNOMS HealthcarepH, UA65 - 9NOMS HealthcareProtein, UATraceNegative - 2000(20) ++++ mg/dLNOMS HealthcareSpec Grav, UA1.031 - 1.03NOMS Healthcare Urobilinogen, UA1.00.2 - 12 mg/dLNOMS HealthcareNOMS HealthcareUS OB BPP W NON-STRESSon 55-76-2684Xbz[place] [address] Ultrasound Report Signed Patient: CHARLENE PURVIS MR#: [id number] : 1990 Acct:[id number] Age/Sex: 34 / F ADM Date: 05/16/25 Loc: US Attending Dr: Nolan Cortes D.O. Ordering Physician: Nolan Cortes D.O. Date of Service: 05/16/25 Procedure(s): US OB BPP w non-stress Accession Number(s): [id number] cc: Nolan Cortes D.O.; Physician,Non-Staff M.Daisy The [place] [phone] Patient Name: CHARLENE PURVIS MRN: [facility]:[id number] date: 1990 Sex: F Assigned Patient Location: US Current Patient Location: Accession/Order Number: [id number] Exam Date: 05/16/2025 22:56 Report Date: 05/16/2025 [...] PM Dictation Location: [facility]IO-PC-29 Electronically authenticated by: [id number] Y Date: 05/16/2025 23:00 Dictated By: Mehul Brewer M.D. Signed By: 05/16/252302 DD/ 99 TD/TT: Machine Farmworker:LEXHRadiologshoaib, Radiologist, - 05/16/2025 [place] [address] Ultrasound Report Signed Patient: CHARLENE PURVIS MR#: [id number] : 1990 Acct:[id number] Age/Sex: 34 / F ADM Date: 05/16/25 Loc: US Attending Dr: Nolan Cortes D.O. Ordering Physician: Nolan Cortes D.O. Date of Service: 05/16/25 Procedure(s): US OB BPP w non-stress Accession Number(s): [id number] cc: Nolan Cortes D.O.; Physician,Non-Staff Nik[facility] The [place] [phone] Patient Name: CHARLENE PURVIS MRN: [facility]:[id number] date: 1990 Sex: F Assigned Patient Location: US Current Patient Location: Accession/Order Number: [id number] Exam Date: 05/16/2025 22:56 Report Date: 05/16/2025 [...] Brewer M.D. 05/16/2025 11:00 PM Dictation Location: RADIOD[facility]-29 Electronically authenticated by: [id number] Y Date: 05/16/2025 23:00 Dictated By: Mehul Brewer M.D. Signed By: 05/16/252302 DD/ 99 TD/TT: Machine Farmworker: ROCKY HealthcareRadiology Study observation (narrative)NOMChip HealthcareUS OB BPP W NON-STRESSOrdered By: Radiologist Radiology on 57-16-7318SML[facility] Work Phone: US OB BPP W NON-STRESSon [phone], [place] [address] Ultrasound Report Signed Patient: CHARLENE PURVIS MR#: [id number] : 1990 Acct:[id number] Age/Sex: 34 / F ADM Date: 05/09/25 Loc: [facility] 250-[address]: Nolan Cortes D.O. Ordering Physician: Nolan Cortes D.O. Date of Service: 05/09/25 Procedure(s): US OB BPP w non-stress Accession Number(s): [id number] cc: Nolan Cortes D.O.; Physician,Non-Staff Nikky The [place] [phone] Patient Name: CHARLENE PURVIS MRN: [facility]:[id number] date: 1990 Sex: F Assigned Patient Location: [facility] Current Patient Location: [facility] Accession/Order Number: [id number] Exam Date: 05/09/2025 15:50 Report Date: 05/09/2025 15:51 At the request of: NOLAN CORTES DO Procedure: US OB BPP w non-stress Biophysical profile. Reason for exam: Gestational diabetes. COMPARISON: BDP 05/02/2025. TECHNIQUE: Transabdominal imaging of the gravid uterus was obtained. FINDINGS: Beauty Sales Advisor reports a BPP of 8 out of 8. BHAVANI is normal at 13.2 cm. heart rate 161 bpm. US/US OB BPP w non-stress Impression: BPP 8 out of 8. Impression dictated by: Jacinto Rivas Jr., D.O. 05/09/2025 3:51 PM Dictation Location: [place] [address] Electronically authenticated by: [id number] Y Date: 05/09/2025 15:51 Dictated By: Jacinto Rivas M.D. Signed By: 05/09/25 1554 DD/ 1551 TD/TT: Machine Farmworker:TBHRadiology, Radiologist, - 05/09/2025 [place] [address] Ultrasound Report Signed Patient: CHARLENE PURVIS MR#: [id number] : 1990 Acct:[id number] Age/Sex: 34 / F ADM Date: 05/09/25 Loc: [facility] 250-[address]: Nolan Cortes D.O. Ordering Physician: Nolan Cortes D.O. Date of Service: 05/09/25 Procedure(s): US OB BPP w non-stress Accession Number(s): [id number] cc: Nolan Cortes D.O.; Physician,Non-Staff Nikky The [place] [address] Patient Name: CHARLENE PURVIS MRN: [id number]:[id number] date: 1990 Sex: F Assigned Patient Location: [facility] Current Patient Location: [facility] Accession/Order Number: [id number] Exam Date: 05/09/2025 15:50 Report Date: 05/09/2025 15:51 At the request of: NOLAN CORTES DO Procedure: US OB BPP w non-stress Biophysical profile. Reason for exam: Gestational diabetes. COMPARISON: BDP 05/02/2025. TECHNIQUE: Transabdominal imaging of the gravid uterus was obtained. FINDINGS: Beauty Sales Advisor reports a BPP of 8 out of 8. BHAVANI is normal at 13.2 cm. heart rate 161 bpm. US/US OB BPP w non-stress Impression: BPP 8 out of 8. Impression dictated by: Jacinto Rivas Jr., D.O. 05/09/2025 3:51 PM Dictation Location: [place] [address] Electronically authenticated by: [id number] Y Date: 05/09/2025 15:51 Dictated By: Jacinto Rivas M.D. Signed By: 05/09/25 1554 DD/ 1551 TD/TT: Machine Farmworker: ROCKY HealthcareRadiology Study observation (narrative)NOMS HealthcareUS OB BPP W NON-STRESSOrdered By: Radiologist Radiology on 44-47-7357MNAE [facility] Work Phone: US OB BPP W NON-STRESSon 25-50-6789Bwt[place] [address] Ultrasound Report Signed Patient: CHARLENE PURVIS MR#: [id number] : 1990 Acct:[id number] Age/Sex: 34 / F ADM Date: 05/02/25 Loc: US Attending Dr: Nolan Cortes D.O. Ordering Physician: Nolan Cortes D.O. Date of Service: 05/02/25 Procedure(s): US OB BPP w non-stress Accession Number(s): [id number] cc: Nolan Cortes D.O.; Physician,Non-Staff [place] [address] Patient Name: CHARLENE PURVIS MRN: [facility]:[id number] date: 1990 Sex: F Assigned Patient Location: [facility] Current Patient Location: Accession/Order Number: [id number] Exam Date: 05/02/2025 16:28 Report Date: 05/02/2025 [...] Maxwell M.D. 05/02/2025 4:30 PM Dictation Location: [place] [address] Electronically authenticated by: [id number] Y Date: 05/02/2025 16:30 Dictated By: Marquis Maxwell M.D. Signed By: 05/02/25 163 DD/ 163 TD/TT: Machine Farmworker:LEXHRadiology, Radiologist, - 05/02/2025 [place] [address] Ultrasound Report Signed Patient: CHARLENE PURVIS MR#: [id number] : 1990 Acct:[id number] Age/Sex: 34 / F ADM Date: 05/02/25 Loc: US Attending Dr: Nolan Cortes D.O. Ordering Physician: Nolan Cortes D.O. Date of Service: 05/02/25 Procedure(s): US OB BPP w non-stress Accession Number(s): [id number] cc: Nolan Cortes D.O.; Physician,Non-Staff Nikky The [address] [id number] Patient Name: CHARLENE PURVIS MRN: [facility]:[id number] date: 1990 Sex: F Assigned Patient Location: [facility] Current Patient Location: Accession/Order Number: [id number] Exam Date: 05/02/2025 16:28 Report Date: 05/02/2025 [...] Maxwell M.D. 05/02/2025 4:30 PM Dictation Location: [place] Electronically authenticated by: [id number] Y Date: 05/02/2025 16:30 Dictated By: Marquis Maxwell M.D. Signed By: 05/02/25 163 DD/ 29 TD/TT: Machine Farmworker: [facility] HOSPITALChip HealthcareRadiology Study observation (narrative)NOMS HealthcareUS OB BPP W NON-STRESSOrdered By: Radiologist Radiology on 25-88-8932ZJNN Healthcare Work Phone: Urinalysis macro (dipstick) panel [...] mg/dLNOMS HealthcareNOMS HealthcareUS OB BPP W NON-STRESSon 97-64-1226K[place] [address] Ultrasound Report Signed Patient: CHARLENE PURVIS MR#: [id number] : 1990 Acct:[id number] Age/Sex: 34 / F ADM Date: 04/25/25 Loc: US Attending Dr: Nolan Cortes D.O. Ordering Physician: Nolan Cortes D.O. Date of Service: 04/25/25 Procedure(s): US OB BPP w non-stress Accession Number(s): [id number] cc: Nolan Cortes D.O.; Physician,Non-Staff Nikky The [place] [phone] Patient Name: CHARLENE PURVIS MRN: [id number] date: 1990 Sex: F Assigned Patient Location: [facility] Current Patient Location: Accession/Order Number: [id number] Exam Date: 04/25/2025 21:35 Report Date: 04/25/2025 [...] Olvera M.D. 04/25/2025 9:36 PM Dictation Location: [place] [address] Electronically authenticated by: [id number] Y Date: 04/25/2025 21:36 Dictated By: Harlan Olvera D.O. Signed By: 04/25/252137 DD/ 35 TD/TT: Machine Farmworker:FARHATadiologshoaib, Radiologist, - 04/25/2025 The [place] [id number] Ultrasound Report Signed Patient: CHARLENE PURVIS MR#: [id number] : 1990 Acct:[id number] Age/Sex: 34 / F ADM Date: 04/25/25 Loc: US Attending Dr: Nolan Cortes D.O. Ordering Physician: Nolan Cortes D.O. Date of Service: 04/25/25 Procedure(s): US OB BPP w non-stress Accession Number(s): [id number] cc: Nolan Cortse D.O.; Physician,Non-Staff Nikky [place] [address] Patient Name: CHARLENE PURVIS MRN: [id number] date: 1990 Sex: F Assigned Patient Location: [facility] Current Patient Location: Accession/Order Number: [id number] Exam Date: 04/25/2025 21:35 Report Date: 04/25/2025 [...] Olvera M.D. 04/25/2025 9:36 PM Dictation Location: [place] [address] Electronically authenticated by: [id number] Y Date: 04/25/2025 21:36 Dictated By: Harlan Olvera D.O. Signed By: 04/25/252137 DD/ 35 TD/TT: Machine Farmworker: ROCKY HealthcareRadiology Study observation (narrative)ROCKY AnglinUS OB BPP W NON-STRESSOrdered By: Radiologist Radiology on 29-30-7338CJYJ Healthcare Work Phone: US OB BPP W NON-STRESSon 29-45-4320Hkc[place], [place] [address] Ultrasound Report Signed Patient: CHARLENE PURVIS MR#: [id number] : 1990 Acct:[id number] Age/Sex: 34 / F ADM Date: 04/18/25 Loc: US Attending Dr: Nolan Cortes D.O. Ordering Physician: Nolan Cortes D.O. Date of Service: 04/18/25 Procedure(s): US OB BPP w non-stress Accession Number(s): [id number] cc: Nolan Cortes D.O.; Physician,Non-Staff Nikky The [place] [phone] Patient Name: CHARLENE PURVIS MRN: [facility]:[id number] date: 1990 Sex: F Assigned Patient Location: [facility] Current Patient Location: Accession/Order Number: [id number] Exam Date: 04/18/2025 16:06 Report Date: 04/18/2025 [...] Olvera M.D. 04/18/2025 4:07 PM Dictation Location: [place] [address] Electronically authenticated by: [id number] Y Date: 04/18/2025 16:07 Dictated By: Harlan Olvera D.O. Signed By: 04/18/25 1609 DD/ 1607 TD/TT: Machine Farmworker:FARHATadiologshoaib, Radiologist, - 04/18/2025 [place] [address] Ultrasound Report Signed Patient: CHARLENE PURVIS MR#: [id number] : 1990 Acct:[id number] Age/Sex: 34 / F ADM Date: 04/18/25 Loc: US Attending Dr: Nolan Cortes D.O. Ordering Physician: Nolan Cortes D.O. Date of Service: 04/18/25 Procedure(s): US OB BPP w non-stress Accession Number(s): [id number] cc: Nolan Cortes D.O.; Physician,Non-Staff Nikky [place] [address] Patient Name: CHARLENE PURVIS MRN: [facility]:[id number] date: 1990 Sex: F Assigned Patient Location: [facility] Current Patient Location: Accession/Order Number: [id number] Exam Date: 04/18/2025 16:06 Report Date: 04/18/2025 16:07 At the request of: NOLNA CORTES DO Procedure: US OB BPP w [...] Olvera M.D. 04/18/2025 4:07 PM Dictation Location: [place] [address] Electronically authenticated by: [id number] Y Date: 04/18/2025 16:07 Dictated By: Harlan Olvera D.O. Signed By: 04/18/25 1609 DD/ 1607 TD/TT: Machine Farmworker: NOMhCip HealthcareRadiology Study observation (narrative)NOMS HealthcareUS OB BPP W NON-STRESSOrdered By: Radiologist Radiology on 70-60-1926WDRK [facility] Work Phone: Urinalysis macro (dipstick) panel [...] - 1.03NOMS Healthcare Urobilinogen, UA0.20.2 - 12 mg/dLNOAZ HealthcareNOMS HealthcareUS OB BPP W NON-STRESSon 55-01-2799[place]ks[place], [place] [address] Ultrasound Report Signed Patient: CHARLENE PURVIS MR#: [id number] : 1990 Acct:[id number] Age/Sex: 34 / F ADM Date: 04/11/25 Loc: US Attending Dr: Nolan Cortes D.O. Ordering Physician: Nolan Cortes D.O. Date of Service: 04/11/25 Procedure(s): US OB BPP w non-stress Accession Number(s): [id number] cc: Nolan Cortes D.O.; Physician,Non-Staff M.DMya The [place] [phone] Patient Name: CHARLENE PURVIS MRN: [facility]:[id number] date: 1990 Sex: F Assigned Patient Location: [facility] Current Patient Location: Accession/Order Number: [id number] Exam Date: 04/11/2025 16:04 Report Date: 04/11/2025 [...] Olvera M.D. 04/11/2025 4:05 PM Dictation Location: [place] [address] Electronically authenticated by: [id number] Y Date: 04/11/2025 16:05 Dictated By: Harlan Olvera D.O. Signed By: 04/11/25 1607 DD/ TD/TT: Machine Farmworker:LEXHRadiology, Radiologist, MD - 04/11/2025 [place] [address] Ultrasound Report Signed Patient: CHARLENE PURVIS MR#: [id number] : 1990 Acct:[id number] Age/Sex: 34 / F ADM Date: 04/11/25 Loc: US Attending Dr: Nolan Cortes D.O. Ordering Physician: Nolan Cortes D.O. Date of Service: 04/11/25 Procedure(s): US OB BPP w non-stress Accession Number(s): [id number] cc: Nolan Cortes D.O.; Physician,Non-Staff [place] [facility] [place] [id number] Patient Name: CHARLENE PURVIS MRN: [id number] date: 1990 Sex: F Assigned Patient Location: [facility] Current Patient Location: Accession/Order Number: [id number] Exam Date: 04/11/2025 16:04 Report Date: 04/11/2025 [...] Olvera M.D. 04/11/2025 4:05 PM Dictation [facility] Electronically authenticated by: [id number] Y Date: 04/11/2025 16:05 Dictated By: Harlan Olvera D.O. Signed By: 04/11/25 160 DD/ 04 TD/TT: Machine Farmworker: [facility] HealthcareRadiology Study observation (narrative)NOMS HealthcareUS OB BPP W NON-STRESSOrdered By: Radiologist Radiology on 93-03-9264TIYT Healthcare Work Phone: Urinalysis macro (dipstick) panel (U)on 04-05-2025 Bilirubin, UANegativeNegative - 4(70) +++ mg/dLNOMS HealthcareBlood, UANegative Negative - 50 Eliceo/mcLNOMS HealthcareClarity, UAClearNOMS HealthcareColor, UA YellowNOMS HealthcareGlucose, UAPositiveNegative - 2000(110) ++++ mg/dLNOMS HealthcareComment on above:100mg/dLInterpretation and review of laboratory resultsAbnormalNOMS HealthcareKetones, UAPositiveNegative - 160(16) ++++ mg/dL [facility] HealthcareComment on above:TraceLeukocytes, UAPositiveNegative - 500+++ Danielle/mcLNOMS HealthcareComment on above:smallNitrite, UANegativeNegative - PositiveNOMS HealthcarepH, UA65 - 9NOMS HealthcareProtein, UATraceNegative - 2000(20) ++++ mg/dLNOMS HealthcareSpec Grav, UA1.0251 - 1.03NOMS Healthcare Urobilinogen, UA0.20.2 - 12 mg/dLNOAZ HealthcareNOMS HealthcarePOCT Hemoglobin A1con 45-40-6392VpM4x (Bld) [Mass fraction]5.8 %4 - 7 %[facility] Health SystemUS OB INCOMPLETE ANATOMYon 42-99-3057[address] [address] Ultrasound Report Signed Patient: CHARLENE PURVIS MR#: [id number] : 1990 Acct:[id number] Age/Sex: 34 / F ADM Date: 03/05/25 Loc: US Attending Dr: Nolan Cortes D.O. Ordering Physician: Nolan Cortes D.O. Date of Service: 03/05/25 Procedure(s): US OB incomplete anatomy Accession Number(s): [id number] cc: Nolan Cortes D.O.; Physician,Non-Staff Nik[address] [place] [address] Patient Name: CHARLENE PURVIS MRN: [facility]:[id number] date: 1990 Sex: F Assigned Patient Location: US Current Patient Location: Accession/Order Number: [id number] Exam Date: 03/07/2025 12:39 Report Date: 03/07/2025 [...] Jr., D.O. 03/07/2025 12:42 PM Dictation Location: [place] [address] Electronically authenticated by: [id number] Y Date: 03/07/2025 12:42 Dictated By: Jacinto Rivas M.D. Signed By: 03/07/25 1244 DD/ 1242 TD/TT: Machine Farmworker:FARHATadiologshoaib, Radiologist, - 03/07/2025 [place] [address] Ultrasound Report Signed Patient: CHARLENE PURVIS MR#: [id number] : 1990 Acct:[id number] Age/Sex: 34 / F ADM Date: 03/05/25 Loc: US Attending Dr: Nolan Cortes D.O. Ordering Physician: Nolan Cortes D.O. Date of Service: 03/05/25 Procedure(s): US OB incomplete anatomy Accession Number(s): [id number] cc: Nolan Cortes D.O.; Physician,Non-Staff [place] [address] Patient Name: CHARLENE PURVIS MRN: [facility]:[id number] date: 1990 Sex: F Assigned Patient Location: US Current Patient Location: Accession/Order Number: [id number] Exam Date: 03/07/2025 12:39 Report Date: 03/07/2025 [...] Jr., D.O. 03/07/2025 12:42 PM Dictation Location: [place] [address] Electronically authenticated by: [id number] Y Date: 03/07/2025 12:42 Dictated By: Jacinto Rivas M.D. Signed By: 03/07/25 1244 DD/ 1242 TD/TT: Machine Farmworker: ROCKY HealthcareRadiology Study observation (narrative)ROCKY HealthcareUS OB INCOMPLETE ANATOMYOrdered By: Radiologist Radiology on 50-00-9232UKLC [facility] Work Phone: Urinalysis macro (dipstick) panel [...] mg/dLNOMS HealthcareNOMS HealthcareGlucose random or fasting- POCTon 43-59-2263Hwkgjsvq Glucose Fasting Or Random (Fbs)110[facility] [place][note 2] SystemUS OB 14+ WEEKS ANATOMY SCANon 65-87-5943BT OB 14+ WEEKS ANATOMY SCANEXAM: US OB [...] PHD at 15-Feb-2025 11:25:23 PM [facility] TeleradiologyNormalNot AvailableComment on above:Order Comment: US OB ANATOMY SINGLE W US OB CERVICAL LENGTH Estimated Date of Delivery: 06/24/25 Gestational Age as of 12/06/2024: 04s6aNCB, SERUM, OPEN SPINA BIFIDAon 02-09-2025 AFP MOM0.84.NOMS HealthcareAFP VALUE34.5 ng/mL.NOMS HealthcareCOMMENT:Comment. NOMS HealthcareComment on above:Tiffany Shah, Ph.D., [facility] Director References: Available Upon Request. Multiples Of Median Cutoffs For AFP Elevations Steiner 2.5 Black 2.8 IDD 2.0 Twins 4.5 Abbreviation Definitions IDD - Insulin Dep Diabetes OSBR - Open Spina Bifida Risk For further inquiries contact [employer] at [phone]. This test was developed and its performance characteristics determined by [employer]. It has not been cleared or approved by the Food and Drug Administration. Performed at: [facility] Cartela ABsaint [facility] [address] [facility], [place], [place] [id number] Remedy Developer: Rogelio Rice [facility], Phone: [phone] GEST. AGE ON COLLECTION DATE20.4. weeksNOAZ HealthcareGESTAT. AGE BASED ONLMP. [facility]ibbon HospitalComment on above:Recalculations are not recommended when gestational dating by LMP and ultrasound are within 10 days. INSULIN DEP DIABETESNo.[facility] HealthcareINTERPRETATIONComment.[facility] Comment on above:Interpretation: Screen Negative This [...] Customer Services to discuss available options. The [employer] recommends amniocentesis be offered to women age 35 and older. MATERNAL AGE AT EDD32.5. yrNOAZ HealthcareMULTIPLE GESTATIONNo.[facility] OSBR RISK 1 [id number].[facility] HealthcareRACECaucasian.[facility] HospitalRESULTSReport. [facility] HospitalTEST RESULTS:Negative.[facility] HospitalZrqouuthkeXBNRMP863. lbsNOAZ HealthcarePREGNANCY N N LMP [id number] 3 18 N 1 Y 289 N N N N N White/ CLINISYNCNOAZ HealthcareChlamydia/GC by PCR Holley Swabon 31-71-7783Yeqaowtqqec Dna(Pcr)Not detectedProSelect Medical Specialty [facility] SystemChlamydia/GC by PCR ThinPrep fluidon 15-79-1508Rswocsacj Dna(Pcr)Not detectedProSelect Medical Specialty Hospital [facility] SystemNo Panel Informationon 33-10-7055YqrBjaxzeUniversity Hospitals Portage Medical CenterALL CBC WITH AUTO DIFFon 93-37-7589CSQNHEIYN ABSOLUTE TKVP6QWOH HealthcareBasophils/100 WBC (Bld)0.3 %0.2 - 2.0 %NOMS HealthcareEosinophils/100 WBC (Bld)3.7 %0.9 - 7.0 %[facility] Erythrocyte distribution width (RBC) [Ratio]13.1 %11.0 - 15.0 %[facility] IMMATURE GRANULOCYTES ABS AUTO0.04HighNOMS HealthcareImmature granulocytes/100 WBC (Bld)0.4 %0.0 - 0.5 %[facility] HospitalInterpretation and review of laboratory resultsAbnormalFitzgibbon HospitalLYMPHOCYTES ABSOLUTE CDBZ6ZWDX [facility] Lymphocytes/100 WBC (Bld)21.3 %20.5 - 60.0 %[facility] SystemH (RBC) [Entitic mass]32.6 pg26.7 - 34.0 pgDeaconess Incarnate Word Health SystemHC (RBC) [Mass/Vol]34.8 g/dL29.9 - 35.2 g/dLDeaconess Incarnate Word Health SystemV (RBC) [Entitic vol]93.6 fL81.0 - 99.0 fLFitzgibbon HospitalMONOCYTES ABSOLUTE AUTO0.5NOSaint John's Regional Health CenterMonocytes/100 WBC (Bld)5.1 % 1.7 - 12.0 %[facility] HospitalNEUTROPHILS ABSOLUTE AUTO6.4NOSaint John's Regional Health Center Neutrophils/100 WBC (Bld)69.2 %43.0 - 75.0 %[facility]ib[facility] HospitalPlatelet mean volume (Bld) [Entitic vol]10.6 fL9.5 - 13.5 fLFitzgibbon HospitalTBH EO #0.3NOMS Healthcare TBH MWQ953UtjRRCFSaint [facility] University Hospital RBC4.36NOSaint John's Regional Health CenterTB WBC9.2NDoctors Hospital of [facility] CLINISYNCCBC without diffon 93-75-5022Tbstcpndp (Bld) [#/Vol]139 10*3/uL [facility] HospitalGlucose tolerance, 1 houron 29-51-2827Ogebcdo Tolerance Test 1 Dwsr754JxtSsiirwProMedica Flower HospitalLaboratory - Hematology and Cell countson 11-82-3614Ihgmzazsiy (Bld) [Volume fraction]40.8 %[facility]ibbon HospitalHemoglobin (Bld) [Mass/Vol]14.2 g/dLFitzgibbon HospitalNo Panel Informationon 99-16-5144ANEQFitzgibbon HospitalUrinalysis macro (dipstick) panel (U)on 82-46-1964Yauzjwvcx, UA NegativeNegative - 4(70) +++ mg/dLNOAZ HealthcareBlood, UANegativeNegative - 50 Eliceo/mcLNOAZ HealthcareClarity, UAClearNOAZ HealthcareColor, UAYellowNOAZ HealthcareGlucose, UAPositiveNegative - 2000(110) ++++ mg/dLFitzgibbon Hospital Comment on above:250mg/dLInterpretation and review of laboratory resultsAbnormal [facility] HealthcareKetones, UANegativeNegative - 160(16) ++++ mg/dLFitzgibbon Hospital Leukocytes, UATraceNegative - 500+++ Danielle/mcLNOAZ HealthcareNitrite, UANegative Negative - PositiveNOAZ HealthcarepH, UA65 - 9NOAZ HealthcareProtein, UAPositive Negative - 2000(20) ++++ mg/dLFitzgibbon HospitalComment on above:30mg/dLSpec Grav, UA1.031 - 1.03NOAZ HealthcareUrobilinogen, UA0.20.2 - 12 mg/dLSaint Luke's Health System HealthcareALL CBC WITH AUTO DIFFon 68-22-4371MLJTHEHFH ABSOLUTE PKZO2UBZQSaint John's Regional Health CenterBasophils/100 WBC (Bld)0.3 %0.2 - 2.0 %[facility] HospitalEosinophils/100 WBC (Bld)4.4 %0.9 - 7.0 %F[facility]gibbon HospitalErythrocyte distribution width (RBC) [Ratio]12 %11.0 - 15.0 %[facility] HospitalIMMATURE GRANULOCYTES ABS AUTO0.03NOSaint John's Regional Health CenterImmature granulocytes/100 WBC (Bld)0.3 %0.0 - 0.5 %[facility] LYMPHOCYTES ABSOLUTE AUTO2.1NOMS [facility] HospitalLymphocytes/100 WBC (Bld)24.6 %20.5 - 60.0 %[facility] SystemH (RBC) [Entitic mass]31.7 pg26.7 - 34.0 pgDeaconess Incarnate Word Health SystemHC (RBC) [Mass/Vol]34.4 g/dL29.9 - 35.2 g/dLDeaconess Incarnate Word Health SystemV (RBC) [Entitic vol]92.1 fL81.0 - 99.0 fLFitzgibbon HospitalMONOCYTES ABSOLUTE AUTO0.6NOAZ HealthcareMonocytes/100 WBC (Bld)6.9 %1.7 - 12.0 %[facility]gib[facility] HospitalNEUTROPHILS ABSOLUTE AUTO5.5NOSaint John's Regional Health CenterNeutrophils/100 WBC (Bld)63.5 %43.0 - 75.0 %F[facility]gibbon HospitalPlatelet mean volume (Bld) [Entitic vol]9.9 fL9.5 - 13.5 fLNOMS HealthcareTBH EO #0.4NOMS HealthcareTBH SWH227BAWN HealthcareTBH RBC4.8NOMS HealthcareTBH WBC8.7NOMS HealthcareCLINISYNCCBC without diffon 11-27-2024 Platelets (Bld) [#/Vol]209 10*3/uLProMedica Health SystemDrug Screen, Urineon 62-17-6895Hjbbbpkvrnk/MethamphetamineNegativeProMedica Health SystemBarbiturates NegativeProMedica Health SystemBenzodiazepinesNegativeProMedica Health System Cocaine MetaboliteNegativeProMedica Health SystemMethadoneNegativeProMedica Health SystemOpiatesNegativeProMedica Health SystemOxycodoneNegativeProMedica Health SystemPhencyclidineNegativeProMedica Health SystemThc Marijuana, Urine NegativeSt Johnsbury HospitalMedica Health SystemFetal Free Cell DNAon 55-54-3242Distx Free Cell DnaLOW RISKProMedica Health SystemHIV 1&2 AB/AG Screen (P24 AG)on 16-54-6951BVL 1&2 AB/AGNon-ReactiveSt Johnsbury HospitalMedica Health SystemHemoglobin A1con 05-12-7852GvE0t (Bld) [Mass fraction]5.5 %4.0 - 6.0 %[facility] Hospitaledica Health SystemComment on above: AVERAGE GLUCOSE 111Hepatitis B surface antigenon 47-25-2731Yfgbsbagz B Surface AntigenNegativeCleveland Clinic Marymount Hospital Health SystemLaboratory - Hematology and Cell countson 47-08-8928Wztffeoxdz (Bld) [Volume fraction]44.2 %NOMS HealthcareHemoglobin (Bld) [Mass/Vol]15.2 g/dLNOMS HealthcareNo Panel Informationon 34-83-2872MLZI HealthcareRubella IGG immune statuson 05-14-4514Wmuxijs immune IgG1.4St Johnsbury HospitalMedica Health SystemSyphilis Total(Unknown Syphilis Status)on 89-88-9083Sqblngan Non-ReactiveSt Johnsbury HospitalMedica Health SystemType and screenon 54-62-5235Luy/Rh(D)Negative Pro[facility] Health SystemUS OB TRANSVAGINALon 68-07-4693Fhk[place] [address] Ultrasound Report Signed Patient: CHARLENE PURVIS MR#: [id number] : 1990 Acct:[id number] Age/Sex: 34 / F ADM Date: 11/26/24 Loc: US Attending Dr: Nolan Cortes D.O. Ordering Physician: Nolan Cortes D.O. Date of Service: 11/26/24 Procedure(s): US OB transvaginal Accession Number(s): [id number] cc: Nolan Cortes D.O.; Physician,Non-Staff M.DMya [place] [address] Patient Name: CHARLENE PURVIS MRN: [id number] date: 1990 Sex: F Assigned Patient Location: US Current Patient Location: US Accession/Order Number: [id number] Exam Date: 11/26/2024 08:36 Report Date: 11/26/2024 [...] M.D. Signed By: 11/26/24 0937 DD/ TD/TT: Machine Farmworker:TBHRadiology, Radiologist, - 11/26/2024 [place] [address] Ultrasound Report Signed Patient: CHARLENE PURVIS MR#: [id number] : 1990 Acct:[id number] Age/Sex: 34 / F ADM Date: 11/26/24 Loc: US Attending Dr: Nolan Cortes D.O. Ordering Physician: Nolan Cortes D.O. Date of Service: 11/26/24 Procedure(s): US OB transvaginal Accession Number(s): [id number] cc: Nolan Cortes D.O.; Physician,Non-Staff Nikky [address] [place] [id number] Patient Name: CHARLENE PURVIS MRN: [facility]:[id number] date: 1990 Sex: F Assigned Patient Location: US Current Patient Location: US Accession/Order Number: [id number] Exam Date: 11/26/2024 08:36 Report Date: 11/26/2024 [...] Yomaira Gonzalez M.D. Signed By: 11/26/2437 DD/ 4 TD/TT: Machine Farmworker: ROCKY HealthcareRadiology Study observation (narrative)ROCKY HealthcareUS OB TRANSVAGINALOrdered By: Radiologist Radiology on 23-61-5189ENMX [facility] Work Phone: US PELVIS W/ TRANSVAGINALon 78-08-1594Tuw[place], [place] [address] Ultrasound Report Signed Patient: CHARLENE PURVIS MR#: [id number] : 1990 Acct:[id number] Age/Sex: 33 / F ADM Date: 04/27/24 Loc: US Attending Dr: Nolan Cortes D.O. Ordering Physician: Nolan Cortes D.O. Date of Service: 04/27/24 Procedure(s): US pelvis w/ transvaginal Accession Number(s): [id number] cc: Nolan Cortes D.O.; Physician,Non-Staff [place] [address] [place] [address] Patient Name: CHARLENE PURVIS MRN: [id number]:[id number] date: 1990 Sex: F Assigned Patient Location: Current Patient Location: Accession/Order Number: [id number] Exam Date: 04/27/2024 14:00 Report Date: 04/28/2024 [...] Signed By: 04/28/24 1319 DD/ 1316 TD/TT: Machine Farmworker:TBHRadiology, Radiologist, - 04/28/2024 [place] [address] Ultrasound Report Signed Patient: CHARLENE PURVIS MR#: [id number] : 1990 Acct:[id number] Age/Sex: 33 / F ADM Date: 04/27/24 Loc: US Attending Dr: Nolan Cortes D.O. Ordering Physician: Nolan Cortes D.O. Date of Service: 04/27/24 Procedure(s): US pelvis w/ transvaginal Accession Number(s): [id number] cc: Nolan Cortes D.O.; Physician,Non-Staff Nikky The [address] [id number] Patient Name: CHARLENE PURVIS MRN: [facility]:[id number] date: 1990 Sex: F Assigned Patient Location: US Current Patient Location: Accession/Order Number: [id number] Exam Date: 04/27/2024 14:00 Report Date: 04/28/2024 [...] Dictated By: Emmie Jhaveri M.D. Signed By: 04/28/241318 DD/ 15 TD/TT: Machine Farmworker: ROCKY HealthcareRadiology Study observation (narrative)[facility] HealthcareUS PELVIS W/ TRANSVAGINALOrdered By: Radiologist Radiology on 92-24-5594VRJI [employer] Work Phone: GTT 3 HR PREGon 18-50-8823Jbhqmtk [Mass/Vol]107 mg/dL Critically ajzw71-829TbgDayton Children'S HospitalComment on above:Performed By: #### GTT3P #### [facility] [address] [place] [address] Dr. Loyd CoppolaGlucose [Mass/Vol]203 mg/dLBarnesville HospitalComment on above:Performed By: #### GTT3P #### [facility] [address] [place] [address] [address] Loyd CoppolaGlucose [Mass/Vol]191 mg/dLBarnesville HospitalComment on above:Performed By: #### GTT3P #### [facility] [address] [place] [address] Dr. Loyd CoppolaGlucose [Mass/Vol]121 mg/dLBarnesville HospitalComment on above:Performed By: #### GTT3P #### [facility] [address] [place] [address] Dr. Loyd Hussein MATERNAL FOR SPINA BIFIDAon 89-06-1102TOM MoM0.70Barnesville HospitalComment on above:Performed By: #### JAIME UMICRO #### [facility] [address] [place] [address] [address] Loyd Hussein Value18.1 ng/mLNVeterans Health AdministrationComascension st. joseph hospital on above: Performed By: #### JAIME UMICRO #### [facility] [address] [place] [address] [address] Loyd Hussein, Serum for Spina BifidaReSt. Anthony's Hospital Comment on above:Performed By: #### JAIME UMICRO #### [facility] [address] [place] [address] [address] Loyd ServinOhio State East HospitalComascension st. jose[facility] hospital on above:Result Comment: Tiffany Shah, Ph.D., [facility] Director . References: Available Upon Request. . Multiples Of Median Cutoffs For AFP Elevations Steiner 2.5 Black 2.8 IDD 2.0 Twins 4.5 Abbreviation Definitions IDD - Insulin Dep Diabetes OSBR - Open Spina Bifida Risk . For further inquiries contact [employer] at [phone]. . This test was developed and its performance characteristics determined by [employer]. It has not been cleared or approved by the Food and Drug Administration.Performed By: #### JAIME UMICRO #### [facility] [address] [place] [address] [address] Loyd Mac Age Collection Date16.4 weeksBarnesville Hospital Comment on above:Performed By: #### JAIME UMICRO #### [facility] [address] [place] [address] [address] Loyd Basilio, Age Based onAs St. Francis HospitalComment on above:Result Comment: Recalculations are not recommended when gestational dating by LMP and ultrasound are within 10 days.Performed By: #### JAIME UMICRO #### [facility] [address] [place] [address] [address] Loyd Delvalle Dep DiabetesNoNVeterans Health AdministrationComment on above:Performed By: #### JAIME UMICRO #### [facility] [address] [place] [address] [address] Loyd CoppolaInterpretationCommentChildren's Hospital for Rehabilitation on above: Result Comment: Interpretation: Screen Negative [...] Customer Services to discuss available options. The [employer] recommends amniocentesis be offered to women age 35 and older.Performed By: #### JAIME UMICRO #### [facility] [address] [place] [address] Dr. Loyd CoppolaMaternal Age at EDD30.[address]Barn[address] joseph hospital on above:Performed By: #### JAIME UMICRO #### [facility] [address] [place] [address] Dr. Loyd Gama GestationNoNMarion Hospital on above: Performed By: #### JAIME UMICRO #### [facility] [address] [place] [address] Dr. Loyd CoppolaOSBR Risk 1 [id number]'s Hospital for Rehabilitation on above: Performed By: #### JAIME UMICRO #### [facility] [address] [place] [address] Dr. Loyd CoppolaPDBrandi.NormalTriHealth on above:Performed By: #### JAIME UMICRO #### [facility] [address] [place] [address] Dr. Loyd BaileyucasianNMarion Hospital on above: Performed By: #### JAIME UMICRO #### [facility] [address] [place] [address] Dr. Loyd CoppolaTest Results:NegativeNoOhioHealthComment on above: Performed By: #### JAIME UMICRO #### [facility] [address] [place] [address] Dr. Loyd CoppolaGLUCOSE - 1HRon 48-96-7768Xcjpfuh [Mass/Vol]165 mg/dLCritically towt27-139FiyDayton Children'S HospitalComment on above:Performed By: #### GLU1HR #### [facility] [address] [place] [address] Dr. Loyd Osullivan ACOG PANEL 2: 30 to 65on 02-19-2023..NormalThe The [facility]health SystemComment on above:Result Comment: Performed at: WBPerformed By: #### JAIME UMICRO #### [facility] [address] [place] [address] Dr. Loyd CoppolaAge Gdln ACOG Tfzhuah81-86HettjrObjOhioHealthComment on above:Performed By: #### JAIME UMICRO #### [facility] [address] [place] [address] Dr. Loyd CoppolaDIAGNOSIS:CommentChildren's Hospital for Rehabilitation on above: Result Comment: NEGATIVE FOR INTRAEPITHELIAL LESION OR MALIGNANCY. Performed at: WBPerformed By: #### JAIME UMICRO #### [facility] [address] [place] [address] Dr. Loyd CoppolaHPGeronimo AptimaNegativeNormalNegativeDayton Children'S HospitalComascension st. jose[facility] hospital on above:Result Comment: This nucleic acid amplification test detects fourteen high-risk HPV types (16,18,31,33,35,39,45,51,52,56,58,59,66,68) without differentiation. Performed at: =GPerformed By: #### JAIME UMICRO #### [facility] [address] [place] [address] Dr. Loyd CoppolaHPV Genotype ReflexCommentBarnesville HospitalComascension st. joseph hospital on above:Result Comment: Criteria not met, HPV Genotype not performed. Performed at: WBPerformed By: #### JAIME UMICRO #### [facility] [address] [place] [address] Dr. Loyd CoppolaMethodology:CommentChildren's Hospital for Rehabilitation on above: Result Comment: This liquid based ThinPrep(R) pap test was screened with the use of an image guided system. Performed at: WBPerformed By: #### ERUR, UMICRO #### [facility] [address] [place] [address] Dr. Loyd CoppolaNote:CommentChildren's Hospital for Rehabilitation on above:Result Comment: The Pap smear is a screening test designed to aid in the detection of premalignant and malignant conditions of the uterine cervix. It is not a diagnostic procedure and should not be used as the sole means of detecting cervical cancer. Both false-positive and false-negative reports do occur. . Performed at: WBPerformed By: #### ERUR, UMICRO #### [place] [address] Dr. Loyd CoppolaPerformed by:CommentChildren's Hospital for Rehabilitation on above: Result Comment: Lizett Kirkpatrick, Inspector Hairspring (ASCP) Performed at: WBPerformed By: #### ERUR, UMICRO #### [facility] [address] [place] [address] Dr. Loyd CoppolaSpecimen adequacy:CommentChildren's Hospital for Rehabilitation on above:Result Comment: Satisfactory for evaluation. No endocervical component is identified. Performed at: WBPerformed By: #### ERUR, UMICRO #### [facility] [address] [place] [address] Dr. Loyd CoppolaUS PREG CERVICAL LENGTHon 46-07-5448ND PREG CERVICAL LENGTH EXAMINATION: US PREG CERVICAL [...] Electronically authenticated by: YOMAIRA GONZALEZ Date: 2023-02-18 15:51Barnesville HospitalCHLAMYDIA/GONOCOCCUS ANTONELLA (SWAB/URINE/PAPon 36-44-1442Zrzkzpnnr trachomatis, NAANegativeNormalNegativeDayton Children'S HospitalComment on above: Performed By: #### CT/NGNA #### [facility] [address] [place] [address] [address] Loyd Stubbsisseria gonorrhoeae, NAANegativeNormalNegativeDayton Children'S HospitalComment on above:Performed By: #### CT/NGNA #### [facility] [address] [place] [address] Dr. Loyd CoppolaVAGINITIS/VAGINOSIS DNA PROBEon 93-40-7253Ppillhj speciesNegative NormalNegativeDayton Children'S HospitalComment on above:Performed By: #### CBC #### [facility] [address] [place] [address] Dr. Loyd Raydnerella vaginalisNegativeSugar GroveNegativeDayton Children'S Hospital Comment on above:Performed By: #### CBC #### [facility] [address] [place] [address] Dr. Loyd CoppolaTrichomonas vaginalisNegativeSalem [facility] Comment on above:Performed By: #### CBC #### [facility] [address] [place] [address] Dr. Loyd Herbert B SURFACE ANTIGEN SCREENon 80-47-0686GUcUr ScreenNegative NormalNegativeDayton Children'S HospitalComment on above:Performed By: #### HBSANS #### [facility] [address] [place] [address] Dr. Loyd Brady C VIRUS AB W/ REFLEX QUANTon 99-20-0865HRZ AB Non-ReactiveNormalNon ReactiveDayton Children'S HospitalComment on above:Performed By: #### CBC #### [facility] [address] [place] [address] Dr. Loyd CoppolaInterpretation:CommentBarnesville HospitalComment on above:Result Comment: Not infected with HCV unless early or acute infection is suspected (which may be delayed in an immunocompromised individual), or other evidence exists to indicate HCV infection.Performed By: #### CBC #### [facility] [address] [place] [address] Dr. Loyd Abarca 1 AND 2 WITH REFLEXon 79-72-5637MDF Screen 4th Generation wRfxNon-ReactiveNormalNon ReactiveThe [facility] on above:Result Comment: HIV Negative HIV-1/HIV-2 antibodies and HIV-1 p24 antigen were NOT detected. There is no laboratory evidence of HIV infection.Performed By: #### CBC #### [facility] [address] [place] [address] Dr. Loyd CoppolaRPR QUANTon 40-06-6965Qxuwc Plasma Reagin, QuantNon-Reactive NormalNonRea<1:1[facility] on above:Result Comment: Please Note: This test does not meet current guidelines for screening and diagnosis of syphilis. This test is intended for following treatment response in patients being treated for syphilis infection. To screen for syphilis infection, a reflex cascade that includes both RPR and a treponema-specific assay should be utilized, such as Treponema pallidum (Syphilis) Screening [place] (187448) or Rapid Plasma Reagin (RPR) Test With Reflex to Quantitative RPR and Confirmatory Treponema pallidum Antibodies (243294).Performed By: #### JESSU SANDOVAL #### [facility] [address] [place] [address] Dr. Loyd TolentinoBELLA AB IGGon 41-12-2921Cfjzczi Antibodies, IgG1.08 index NormalImmune >0.99[facility] on above:Result Comment: Non- immune <0.90 Equivocal 0.90 - 0.99 Immune >0.99Performed By: #### CBC #### [facility] [address] [place] [address] Dr. Loyd CoppolaBOX TEST SENT OUTon 17-29-7654SHJP TO REF [facility] NO.201/31/23No[facility] on above:Performed By: #### JESUS SANDOVAL #### [facility] [address] [address] [address] Loyd Portillo AUTO DIFFon 34-91-0427UZRF #0.0 103/ulNormal0.0-0.1The [facility] on above:Performed By: #### CBC #### [facility] [address] [place] [address] Dr. Loyd CoppolaBasophils/100 WBC (Bld)0.2 %Normal0.2-2.0The [facility] Comment on above:Performed By: #### CBC #### [facility] [address] [place] [address] Dr. Loyd Carvajal #0.1 103/ulNormal0.0-0.7The [facility] on above: Performed By: #### CBC #### [facility] [address] [place] [address] Dr. Loyd Escuderoosinophils/100 WBC (Bld)1.5 %Normal0.9-7.0The [facility] Comment on above:Performed By: #### CBC #### [facility] [address] [place] [address] Dr. Loyd Escuderorythrocyte distribution width (RBC) [Ratio]12.3 %Qsnjyi38.0-15.0 The [facility] on above:Performed By: #### CBC #### [facility] [address] [place] [address] Dr. Loyd CoppolaHematocrit (Bld) [Volume fraction]39.3 %Sfxvvq29.0-48.0The [facility] SystemComment on above:Performed By: #### CBC #### [facility] [address] [place] [address] Dr. Loyd CoppolaHemoglobin (Bld) [Mass/Vol]14.3 g/iVQdibax65.0-16.0[facility] HospitalComment on above:Performed By: #### CBC #### [facility] [address] [place] [address] Dr. Yilan ChangIG #0.03 10e3/ulNormal0.00-0.03The [facility] on above:Performed By: #### CBC #### [facility] [address] [place] [address] Dr. Loyd Pickard %0.3 %Normal0.0-0.5The [facility] on above: Performed By: #### CBC #### [facility] [address] [place] [address] Dr. Loyd Nowak #2.3 103/ulNormal1.2-3.8The [facility] on above:Performed By: #### CBC #### [facility] [address] [place] [address] Dr. Loyd Panhocytes/100 WBC (Bld)24.8 %Nhsbhn77.5-60.0The [facility] on above:Performed By: #### CBC #### [facility] [address] [place] [address] Dr. Loyd Vieira DIFF REQNONormalThe [facility] on above: Performed By: #### CBC #### [facility] [address] [place] [address] Dr. Loyd Botello (RBC) [Entitic mass]32.6 gkTnuhsr59.7-34.0The [facility] on above:Performed By: #### CBC #### [facility] [address] [place] [address] Dr. Loyd Ayala (RBC) [Mass/Vol]36.4 g/dLCritically high29.9-35.2The [facility] on above:Performed By: #### CBC #### [facility] [address] [place] [address] Dr. Loyd Ramey (RBC) [Entitic vol]89.7 uQZgzdka31.0-99.0The [facility] on above:Performed By: #### CBC #### [facility] [address] [place] [address] Dr. Yilan ChangMONO #0.5 103/ulNormal0.3-0.8The [facility] on above:Performed By: #### CBC #### [facility] [address] [place] [address] Dr. Loyd Juarezocytes/100 WBC (Bld)5.2 %Normal1.7-12.0The [facility] Comment on above:Performed By: #### CBC #### [facility] [address] [place] [address] Dr. Loyd StubbsUT #6.4 103/ulNormal1.4-6.5The [facility] on above:Performed By: #### CBC #### [facility] [address] [place] [address] Dr. Loyd Stallingsophils/100 WBC (Bld)68.0 %Fkndsf48.0-75.0The [facility] on above:Performed By: #### CBC #### [facility] [address] [place] [address] Dr. Loyd Murillolet mean volume (Bld) [Entitic vol]10.5 fLNormal9.5-13.5The [facility] on above:Performed By: #### CBC #### [facility] [address] [place] [address] Dr. Loyd CoppolaPLT171 103/xdIlcpur211-172Kss [facility] SystemComment on above: Performed By: #### CBC #### [facility] [address] [place] [address] Dr. Loyd CoppolaRBC4.38 106/ulNormal4.20-5.40The [facility] SystemComment on above:Performed By: #### CBC #### [facility] [address] [place] [address] Dr. Loyd KumarBC9.4 103/ulNormal4.0-11.0The [facility] on above: Performed By: #### CBC #### [facility] [address] [place] [address] Dr. Loyd Sanchez URINEon 45-02-4846SMJAGBD URINECulture Observations: LIGHT GROWTH OF MIXED GENITAL CASSIDY. NO POTENTIAL PATHOGENS SEEN.NormalThe [facility] SystemComment on above:Performed By: #### CBC #### [facility] [address] [place] [address] Dr. Loyd CoppolaCULTURE URINEIsolate 1 Escherichia coli 25,000 cfu/mL of [...] <=16 S F Trimethoprim/Sulfamethoxazole <=20 S FNormalThe [facility] SystemComment on above:Performed By: #### CBC #### [facility] [address] [place] [address] Dr. Loyd CoppolaGLYCOHEMOGLOBIN A1Con 79-41-1502TPF RECOMMENDATIONSEE BELOWNormal [facility]Comasc[facility] on above:Result Comment: ADA RECOMMENDED LIMIT 4.0 - 6.0 ADA THERAPEUTIC TARGET < 7.0 ACTION SUGGESTED > 7.0Performed By: #### A1C #### [facility] [address] [place] [address] Dr. Loyd CoppolaGlucose [Mass/Vol]100 mg/dLNormalThe [facility]Com[facility] on above:Performed By: #### A1C #### [facility] [address] [place] [address] Dr. Loyd CoppolaHbA1c (Bld) [Mass fraction]5.1 %Normal4.5-6.2The [facility] on above:Performed By: #### A1C #### [facility] [address] [place] [address] Dr. Loyd CoppolaTSHosy 95-54-9171AND3.495 uIU/mLNormal0.358-3.740[facility] Centerment on above:Performed By: #### JESUS SANDOVAL #### [facility] [address] [place] [address] Dr. Loyd CoppolaTYPE AND SCREENon 29-96-3330DDEX AND SCREENNegativeNormalThBellevue HospitalComment on above:Performed By: #### CBC #### [facility] [address] [place] [address] Dr. Loyd ChanC AUTO DIFFon 59-35-0097ZGAP #0.0 103/ulNormal0.0-0.1The [facility] on above:Performed By: #### CBC #### [facility] [address] [place] [address] Dr. Loyd CoppolaBasophils/100 WBC (Bld)0.2 %Normal0.2-2.0[facility] Comment on above:Performed By: #### CBC #### [facility] [address] [place] [address] Dr. Loyd Carvajal #0.1 103/ulNormal0.0-0.7The [facility] on above: Performed By: #### CBC #### [facility] [address] [place] [address] Dr. Loyd Escuderoosinophils/100 WBC (Bld)0.8 %Critically low0.9-7.0The [facility] on above:Performed By: #### CBC #### [facility] [address] [place] [address] Dr. Loyd Escuderorythrocyte distribution width (RBC) [Ratio]12.3 %Qeitxu69.0-15.0 The [facility]ment on above:Performed By: #### CBC #### [facility] [address] [place] [address] Dr. Loyd CoppolaHematocrit (Bld) [Volume fraction]45.0 %Zlurvm06.0-48.0The [facility] Hospitalment on above:Performed By: #### CBC #### [facility] [address] [place] [address] Dr. Loyd CoppolaHemoglobin (Bld) [Mass/Vol]16.3 g/dLCritically high12.0-16.0The [facility] on above:Performed By: #### CBC #### [facility] [address] [place] [address] Dr. Loyd Pickard #0.03 10e3/ulNormal0.00-0.03The [facility] on above:Performed By: #### CBC #### [facility] [address] [place] [address] Dr. Loyd Pickard %0.4 %Normal0.0-0.5The [facility] on above: Performed By: #### CBC #### [facility] [address] [place] [address] Dr. Loyd Nowak #1.4 103/ulNormal1.2-3.8The [facility] on above:Performed By: #### CBC #### [facility] [address] [place] [address] Dr. Loyd Panhocytes/100 WBC (Bld)16.8 %Critically low20.5-60.0The [facility] on above:Performed By: #### CBC #### [facility] [address] [place] [address] Dr. Loyd PenningtonUAL DIFF REQNONormalThe [facility] SystemComment on above: Performed By: #### CBC #### [facility] [address] [place] [address] Dr. Loyd Ayala (RBC) [Entitic mass]32.1 ozHjjbel31.7-34.0The [facility] System[facility] on above:Performed By: #### CBC #### [facility] [address] [place] [address] Dr. Loyd Ayala (RBC) [Mass/Vol]36.2 g/dLCritically high29.9-35.2The [facility] SystemComment on above:Performed By: #### CBC #### [facility] [address] [address] [address] Loyd AyalaV (RBC) [Entitic vol]88.8 eBAgroaz34.0-99.0The [facility] SystemComment on above:Performed By: #### CBC #### [facility] [address] [place] [address] Dr. Loyd Suarez #0.9 103/ulCritically high0.3-0.8The [facility] Comment on above:Performed By: #### CBC #### [facility] [address] [place] [address] Dr. Loyd Juarezocytes/100 WBC (Bld)10.5 %Normal1.7-12.0The [facility] Comment on above:Performed By: #### CBC #### [facility] [address] [place] [address] Dr. Loyd StubbsUT #6.0 103/ulNormal1.4-6.5The [facility] SystemComment on above:Performed By: #### CBC #### [facility] [address] [place] [address] Dr. Loyd Stubbsutrophils/100 WBC (Bld)71.3 %Atrmna05.0-75.0The [facility] SystemComment on above:Performed By: #### CBC #### [facility] [address] [place] [address] Dr. Loyd Murillolet mean volume (Bld) [Entitic vol]10.7 fLNormal9.5-13.5The [facility] System[facility] on above:Performed By: #### CBC #### [facility] [address] [place] [address] Dr. Loyd CoppolaPLT174 103/vgYdteuh328-117Zaq [facility] SystemComment on above: Performed By: #### CBC #### [facility] [address] [place] [address] Dr. Loyd CoppolaRBC5.07 106/ulNormal4.20-5.40The [facility] SystemComment on above:Performed By: #### CBC #### [facility] [address] [address] [address] Loyd CoppolaWBC8.4 103/ulNormal4.0-11.0The [facility]ment on above: Performed By: #### CBC #### [facility] [address] [address] [address] Loyd Torres URINE PROFILEon 05-99-3344Lanzayxzb Ql (U)SMALLAbnormal NEGATIVEDayton Children'S HospitalComment on above:Performed By: #### JAIME UMICRO #### [facility] [address] [place] [address] Dr. Loyd CoppolaClarity (U)CLEARNormalCLEARDayton Children'S HospitalComment on above: Performed By: #### JAIME UMICRO #### [facility] [address] [place] [address] Dr. Loyd Dardenlor (U)YELLOWNormalYELLOWDayton Children'S HospitalComment on above: Performed By: #### JAIME UMICRO #### [facility] [address] [place] [address] Dr. Loyd Ragsdale micrscopic examination will be performed if indicated. NormalThe [facility] SystemComment on above:Performed By: #### JAIME UMICRO #### [facility] [address] [place] [address] Dr. Loyd CoppolaGlucose Ql (U)NegativeNormalNEGATIVEDayton Children'S HospitalComment on above:Performed By: #### JAIME UMICRO #### [facility] [address] [place] [address] Dr. Loyd CoppolaHemoglobin Ql (U)TRACE-INTACTAbnormalNEGATIVEDayton Children'S HospitalComment on above:Performed By: #### JAIME UMICRO #### [facility] [address] [place] [address] Dr. Loyd CoppolaKetones Ql (U)80 mg/dlAbnormalNEGATIVETrihealth on above:Performed By: #### JAIME UMICRO #### [facility] [address] [place] [address] Dr. Loyd CoppolaLEUKOCYTESNegativeNormalNEGATIVEThe [facility] SystemComment on above:Performed By: #### JESUS SANDOVAL #### [facility] [address] [place] [address] Dr. Loyd CoppolaNitrite Ql (U)NegativeNormalNEGATIVEThe [facility] SystemComment on above:Performed By: #### JESUS SANDOVAL #### [facility] [address] [place] [address] Dr. Loyd CoppolapH (U)6.5 [pH]Normal5-9The [facility] SystemComment on above: Performed By: #### JESUS SANDOVAL #### [facility] [address] [place] [address] Dr. Loyd CoppolaProtein (U) [Mass/Vol]100 mg/dLAbnormalNEGATIVE/ TRACEThe [facility] SystemComment on above:Performed By: #### JESUS SANDOVAL #### [facility] [address] [place] [address] Dr. Loyd CoppolaSPEC GRAVITY1.506Sfvjzibu6.005-<=1.025The [facility] Comment on above:Performed By: #### JESUS SANDOVAL #### [facility] [address] [place] [address] Dr. Loyd Akhtar MICRO INDINDICATEDNormalThe [facility] SystemComment on above: Performed By: #### JESUS SANDOVAL #### [facility] [address] [place] [address] Dr. Loyd Lathambilinogen Qn (U)0.2 {Taylor'U}/dLNormal0.2 - 1.0The [facility] SystemComment on above:Performed By: #### JUSTIN SANDOVALRO #### [facility] [address] [place] [address] Dr. Loyd CoppolaPROF 14(COMP METB)on 79-72-4940Dxleofm [Mass/Vol]3.5 g/dLNormal 3.4-5.0The [facility] SystemComment on above:Performed By: #### CBC #### [facility] [address] [address] [address] Loyd CoppolaAlbumin/Globulin [Mass ratio]0.9 {ratio}NormalThe [facility] SystemComment on above:Performed By: #### CBC #### [facility] [address] [place] [address] Dr. Loyd SegoviaP [Catalytic activity/Vol]61 U/BLvicyb18-320Kmc [facility] SystemComment on above:Performed By: #### CBC #### [facility] [address] [place] [address] Dr. Loyd SegoviaT [Catalytic activity/Vol]29 U/PLbxgrn19-73Svw [facility] SystemComment on above:Performed By: #### CBC #### [facility] [address] [place] [address] Dr. Loyd Aldanaon gap [Moles/Vol]12.0 mmol/LNormalThe [facility] Comment on above:Performed By: #### CBC #### [facility] [address] [place] [address] Dr. Loyd CoppolaAST [Catalytic activity/Vol]24 U/FGrvnqo42-48Ucd [facility] Hospitalment on above:Performed By: #### CBC #### [facility] [address] [place] [address] Dr. Loyd CoppolaBilirubin [Mass/Vol]0.4 mg/dLNormal0.2-1.0The [facility] Comment on above:Performed By: #### CBC #### [facility] [address] [place] [address] Dr. Loyd CoppolaCalcium [Mass/Vol]8.6 mg/dLNormal8.5-10.1The [facility] Comment on above:Performed By: #### CBC #### [facility] [address] [place] [address] Dr. Loyd CoppolaChloride [Moles/Vol]99 mmol/IDpyvrw47-934Fjn [facility] Comment on above:Performed By: #### CBC #### [facility] [address] [address] [address] Loyd CoppolaCO2 [Moles/Vol]24.9 mmol/RKtwhin90.0-32.0The [facility] Comment on above:Performed By: #### CBC #### [facility] [address] [address] [address] Loyd CoppolaCreatinine [Mass/Vol]0.55 mg/dLNormal0.55-1.02The [facility] SystemComment on above:Performed By: #### CBC #### [facility] [address] [address] [address] Loyd EscuderoGFR-AF MAURITIAN>60Normal>=60The [facility] SystemComment on above:Performed By: #### CBC #### [facility] [address] [address] [address] Loyd EscuderoGFR-NON AF MAURITIAN>60Normal>=60The [facility] SystemComment on above:Performed By: #### CBC #### [facility] [address] [address] [address] Loyd CoppolaGlobulin (S) [Mass/Vol]3.8 g/dLNormalThe [facility] SystemComment on above:Performed By: #### CBC #### [facility] [address] [address] [address] Loyd CoppoalGlucose [Mass/Vol]106 mg/hLSvpifx46-874Vzn [facility] Comment on above:Performed By: #### CBC #### [facility] [address] [address] [address] Loyd CoppolaPotassium [Moles/Vol]2.9 mmol/LCritically low3.5-5.1The [facility] SystemComment on above:Performed By: #### CBC #### [facility] [address] [address] [address] Loyd CoppolaProtein [Mass/Vol]7.3 g/dLNormal6.4-8.2The [facility] Comment on above:Performed By: #### CBC #### [facility] [address] [address] [address] Loyd Augustedium [Moles/Vol]135 mmol/LCritically txd524-163Vhz [facility] SystemComment on above:Performed By: #### CBC #### [facility] [address] [address] [address] Loyd Oliver nitrogen [Mass/Vol]12.0 mg/dLNormal7.0-18.0The [facility] SystemComment on above:Performed By: #### CBC #### [facility] [address] [address] [address] Loyd Oliver nitrogen/Creatinine [Mass ratio]21.8 mg/mgNoOhioHealthComment on above:Performed By: #### CBC #### [facility] [address] [place] [address] Dr. Loyd Justice MICROSCOPIC ONLYon 30-38-8125IRPCAXJIFWRJDQCVMshgyydnHXMB SEENThe [facility] SystemComment on above:Performed By: #### JAIME UMICRO #### [facility] [address] [place] [address] Dr. Loyd Herring identified Cx Nom (U)INDICATEDNoOhioHealthComment on above:Performed By: #### JAIME UMICRO #### [facility] [address] [place] [address] Dr. Loyd Angel SEENNormalNONE SEENThe [facility] SystemComment on above:Performed By: #### JAIME UMICRO #### [facility] [address] [place] [address] Dr. Loyd Jamesystals LM Nom (Urine sed)NONE SEENNormalNONE SEENDayton Children'S HospitalComascension [facility] on above:Performed By: #### JAIME UMICRO #### [facility] [address] [place] [address] Dr. Harp ChangEpithelial cells LM Ql (Urine sed)MANYAbnormalNONE SEEN /RAREThe [facility] SystemComment on above:Performed By: #### JESUS SANDOVAL #### [facility] [address] [address] [address] Loyd SrinivasanalJEREMIE SEENDayton Children'S HospitalComment on above:Performed By: #### JUSTIN SANDOVALRO #### [facility] [address] [address] [address] Loyd CoppolaTkymnXXY0-7Fmpvis7-9Cou [facility] SystemComment on above:Performed By: #### JUSTIN SANDOVALRO #### [facility] [address] [address] [address] Loyd CoppolaWBC2-5AbnormalJEREMIE SEENThe [facility] SystemComment on above: Performed By: #### JESUS SANDOVAL #### [facility] [address] [place] [address] Dr. Loyd Hawk PREG TVon [id number] PREG TVEXAMINATION: US PREG TV HISTORY: Missed [...] Electronically authenticated by: YOMAIRA GONZALEZ Date: 2023-01-23 15:42[facility] ACOG PANEL 2: 23 to 29on 09-19-2022..NormalThe [facility] SystemComment on above:Performed By: #### [id number] #### [facility] [address] [place] [address] Dr. Loyd Martinez Gdln ACOG Vrlaxog46-33KudazyWskBarnesville HospitalComment on above:Performed By: #### [id number] #### [facility] [address] [place] [address] Dr. Loyd CoppolaDIAGNOSIS:CommentChildren's Hospital for Rehabilitation on above: Result Comment: NEGATIVE FOR INTRAEPITHELIAL LESION OR MALIGNANCY.Performed By: #### [id number] #### [facility] [address] [place] [address] Dr. Loyd CoppolaMethodology:CommentChildren's Hospital for Rehabilitation on above: Result Comment: This liquid based ThinPrep(R) pap test was screened with the use of an image guided system.Performed By: #### [id number] #### [facility] [address] [place] [address] Dr. Loyd CoppolaNote:CommentChildren's Hospital for Rehabilitation on above:Result Comment: The Pap smear is a screening test designed to aid in the detection of premalignant and malignant conditions of the uterine cervix. It is not a diagnostic procedure and should not be used as the sole means of detecting cervical cancer. Both false-positive and false-negative reports do occur. .Performed By: #### [id number] #### [facility] [address] [place] [address] Dr. Loyd CoppolaPerformed by:CommentChildren's Hospital for Rehabilitation on above: Result Comment: Milagro Velasco, Inspector Hairspring (ASCP)Performed By: #### [id number] #### [address] [address] Dr[address] Loyd CoppolaReflex Criteria:[facility] on above:Result Comment: The HPV DNA reflex criteria were not met with this specimen result therefore, no HPV testing was performed. .Performed By: #### [id number] #### [facility] [address] [place] [address] Dr. Loyd CoppolaSpecimen adequacy:CommentChildren's Hospital for Rehabilitation on above:Result Comment: Satisfactory for evaluation. Endocervical and/or squamous metaplastic cells (endocervical component) are present.Performed By: #### [id number] #### [facility] [address] [place] [address] Dr. Loyd Coppola Vital Signs Date TimeVital SignValuePerforming CepzwvumhTrbnwbxn94-74-6135 13:43-0400Body xazftr375.2 cmBlank Albrecht CODING COMPLIANCE SPECIALIST Work Phone: [phone] [place], [place] [address]Ttlyacbuof50-40-1321 13:43-0400Body mass index (BMI) [Ratio]44.48 kg/a2OqdqtkvqBlank Cortesly CODING COMPLIANCE SPECIALIST Work Phone: [phone] [place], [place] [address]Bkqiynnkbu59-40-3359 13:43-0400Body .82 kgKrdarnell Cortesly CODING COMPLIANCE SPECIALIST Work Phone: [phone] [place], [place] [address]Xanrhtijmq72-38-1684 13:43-0400Diastolic blood zjpulrih89 mm[Hg]Blank Trena CODING COMPLIANCE SPECIALIST Work Phone: [phone] [place], [place] [address]Oimjvevzyn96-83-3708 13:43-0400Systolic blood wkzmkvxe577 mm[Hg]Blank Cortesly CODING COMPLIANCE SPECIALIST Work Phone: [phone] [place], [place] [address]Rhmscqypsx62-23-9286 11:29-0400Body mass index (BMI) [Ratio]44.76 kg/m2Amy Polina PA Work Phone: [phone] [place], [place] [address]Mnjpyfpnis75-87-2036 11:29-0400Body .64 kgKristan Fish PA Work Phone: [phone] [place] [address]-21-2025 11:29-0400Diastolic blood fpwujqdl39 mm[Hg]Kristan Fish PA Work Phone: [phone] [place] [address]-21-2025 11:29-0400Systolic blood vparbdtr445 mm[Hg]Kristan Fish PA Work Phone: [phone] [place] [address]-14-2025 09:42-0400Body mass index (BMI) [Ratio]44.34 kg/n7McbxddziBlank Albrecht CODING COMPLIANCE SPECIALIST Work Phone: [phone] [place] [address]-14-2025 09:42-0400Body cwukse015.42 kgBlank Kilpatrickerly CODING COMPLIANCE SPECIALIST Work Phone: 1(646)921-[address] [place] [address]-14-2025 09:42-0400Diastolic blood vnmyfhtd35 mm[Hg]Blank Trena CODING COMPLIANCE SPECIALIST Work Phone: 1(913)492-[address] [place], [place] [address]14-2025 09:42-0400Systolic blood waptpykr583 mm[Hg]Blank Kilpatrickjanna CORTES Work Phone: 1(926)824-[address] [place], [place] [address]Hxlaqxxznl21-03-2652 09:36-0400Body mass index (BMI) [Ratio]43.67 kg/t4Curib Sebastian DO Work Phone: 1(100)936-[address] [place], [place] [address]Fkiazpppjb07-89-6426 09:36-0400Body .46 kgCorey Sebastian DO Work Phone: 1(973)[facility] [place], [place] [address]Xtcpjsuqko95-83-8255 09:36-0400Diastolic blood mm[Hg]Nolan Sebastian DO Work Phone: 1(510)[facility] [place], [place] [address]Jypzdpudpt96-06-3129 09:36-0400Systolic blood dublkuls600 mm[Hg]Nolan Sebastian DO Work Phone: 1(806)[facility] [place], [place] [address]Epalybvjas28-05-5782 10:36-0400Diastolic blood terquxod74 mm[Hg]Nolan Sebastian DO Work Phone: 1(858)[facility] [place], [place] [address]Rvomubhjeh41-91-2945 10:36-0400Systolic blood brhokizb967 mm[Hg]Nolan Sebastian DO Work Phone: 1(796)[facility] [place], [place] [address]Ylwoekuakp93-41-2256 10:29-0400Body mass index (BMI) [Ratio]49.34 kg/a4Kyiin Sebastian DO Work Phone: 1(642)852-[address] [place], [place] [address]Pswxkqwvhw12-31-1627 10:29-0400Body hmsjyp913.88 kgCorey Sebastian DO Work Phone: 1(601)[address] [place], [place] 5042007-22-2025 11:04-0400Body mass index (BMI) [Ratio]49.49 kg/m2Kristan RUBIO Work Phone: 1(361)352-[address] [place], [place] [address]Hhjiilzbsr80-90-5445 11:04-0400Body mnsgid508.34 kgKristan RUBIO Work Phone: 1(777)847-[facility] HospitalNiynbyeryk71-74-8624 11:04-0400Diastolic blood ghchvdor14 mm[Hg]Kristan RUBIO Work Phone: 1(460)984-[address] [place] [address]-22-2025 11:04-0400Systolic blood bnsjpmsi833 mm[Hg]Kristan Fish PA Work Phone: [phone] [place], [place] [address]Voorojjlch61-24-0229 08:59-0400Body mass index (BMI) [Ratio]48.12 kg/m2Amy Willow PA Work Phone: 1(070)725-[address] [place], [place] [address]Jpkpzzazal06-08-2270 08:59-0400Body .37 kgAmy Polina PA Work Phone: 1(053)[facility] [place], [place] [address]Xneieduwqo22-15-7324 08:59-0400Diastolic blood dqsrkyfu43 mm[Hg]Kristan Fish PA Work Phone: 1(717)[address] [place], [place] [address]Tejdpeylwn01-49-5993 08:59-0400Systolic blood pepwegfl486 mm[Hg]Kristan Fish PA Work Phone: 1(558)[facility] [place], [place] [address]Hsrbirmbek60-95-3033 11:58-0400Body mass index (BMI) [Ratio]47.58 kg/t5Mjdmi Sebastian DO Work Phone: 1(267)[facility] [place], [place] [address]Yyhimcbeav97-26-8711 11:58-0400Body qaqicv551.8 kgCorey Sebastian DO Work Phone: 1(331)[facility] [place], [place] [address]Metguquani00-05-1817 11:58-0400Diastolic blood mm[Hg]Nolan Sebastian DO Work Phone: 1(956)951-[address] [place], [place] [address]Nnnbpnitcc19-34-1036 11:58-0400Systolic blood eltglrwl837 mm[Hg]Nolan Sebastian DO Work Phone: 1(315)[address] [place], [place] 5042006-23-2025 10:56-0400Body mass index (BMI) [Ratio]47.16 kg/m2Amy Polina PA Work Phone: 1(743)898-[address] [place], [place] [address]Qcmjeznsam60-29-0950 10:56-0400Body thfjeq214.59 kgAmy Polina PA Work Phone: 1(057)877-[address] [place], [place] [address]Blsewdocfn79-45-5449 10:56-0400Diastolic blood vxxxkcet85 mm[Hg]Kristan Fish PA Work Phone: 1(007)231-[address] [place], [place] [address]Smvvdlzvfx72-02-6928 10:56-0400Systolic blood zvezuife413 mm[Hg]Kristan RUBIO Work Phone: 1(806)801-[address] [place], [place] [address]Uivedfcimp55-92-1889 13:11-0400Body mass index (BMI) [Ratio]46.27 kg/t8Mdrly Sebastian DO Work Phone: 1419)828-[facility] HospitalYcgxujbisg28-50-5270 13:11-0400Body ufdkli524.99 kgCorey Sebastian DO Work Phone: [phone])449-[address] [place], [place] [address]Wkrccjcpvx52-27-2886 13:11-0400Diastolic blood edtkjqdj28 mm[Hg]Nolan Sebastian DO Work Phone: [phone])581-[address] [place], [place] [address]Sribmckjbr52-77-0240 13:11-0400Systolic blood jouvwrfe334 mm[Hg]Nolan Sebastian DO Work Phone: 1(338)629-[address] [place], [place] [address]Pdvpkdrpcf90-53-0960 14:05-0400Body mass index (BMI) [Ratio]46.52 kg/b6Strft Sebastian DO Work Phone: 1(224)716-[address] [place], [place] [address]Jweubhkmcu78-16-6615 14:05-0400Body ulfwft524.72 kgCorey Sebastian DO Work Phone: 1(313)081-[address] [place], [place] [address]Jbkzhnnrhh64-43-6556 14:05-0400Diastolic blood mm[Hg]Nolan Sebastian DO Work Phone: 1(643)034-[address] [place], [place] [address]Sgtevmourd83-33-4608 14:05-0400Systolic blood wjnfozuk805 mm[Hg]Nolan Sebastian DO Work Phone: 1(419)[address]05-05-2025 14:00-0400Body mass index (BMI) [Ratio]46.05 kg/s0Xhqlo Sebastian DO Work Phone: [phone])613-[address] [place], [place] [address]Wympuzzmfl13-21-6954 14:00-0400Body qgdnxa882.36 kgCorey Sebastian DO Work Phone: [phone])045-[address] [place], [place] [address]Fmfprzkjof31-16-5206 14:00-0400Diastolic blood bsmnmvvy42 mm[Hg]Nolan Sebastian DO Work Phone: 1(907)233-[address] [place], [place] [address]Zdgvjwzsid89-74-1674 14:00-0400Systolic blood ssymyuma506 mm[Hg]Nolan Sebastian DO Work Phone: 1(211)679-[address] [place], [place] [address]Ubagkbzkjy74-18-6358 13:08-0400Body mass index (BMI) [Ratio]45.7 kg/f7Dhalwjp Lavoy PA-C Work Phone: 1(417)[address] [place] [address] [employer] Gubfad59-54-0967 13:08-0400Body nboivg369.36 kgColleen Lavoy PA-C Work Phone: 1(303)[address] [place], [place] 5059104-29-2025 13:08-0400Diastolic blood qniphpwv24 mm[Hg]Kenya Lavoy PA-C Work Phone: 1(140)[address] [place], [place] 5059104-29-2025 13:08-0400Heart rate 95 /minColleen Lavoy PA-C Work Phone: 1(356)[address] [place], [place] 5059104-29-2025 13:08-0400Systolic blood mm[Hg]Kenya Lavoy PA-C Work Phone: 1(055)[address] [place], [place] 5059104-14-2025 13:59-0400Body mass index (BMI) [Ratio]45.42 kg/s5Xzget Sebastian DO Work Phone: 1(137)044-[address] [place], [place] [address]Aqgcioucvn24-88-8833 13:59-0400Body anvszz784.54 kgCorey Sebastian DO Work Phone: 1(982)142-[address] [place], [place] [address]Pgdjdakkzu20-28-0879 13:59-0400Diastolic blood mm[Hg]Nolan Sebastian DO Work Phone: 1(755)791-[address] [place] [address]-14-2025 13:59-0400Systolic blood hfjgjwyf008 mm[Hg]Nolan Sebastian DO Work Phone: 1(594)589-[address] [place], [place] [address]Vekmorande65-54-7850 13:18-0400Body mass index (BMI) [Ratio]44.79 kg/i0JdkgbzViolet Lopez RN Work Phone: [phone])[address]04-09-2025 13:18-0400Body yisruf895.73 kgAngela John RN Work Phone: [facility]18[facility] 13:59-0500Body mass index (BMI) [Ratio]44.14 kg/e3Lysls Sebastian DO Work Phone: [facility] HospitalSpwftmjebs08-22-9286 13:59-0500Body cwyqwt154.82 kgCorey Sebastian DO Work Phone: [facility] HospitalQyovhkxzno86-49-7785 13:59-0500Diastolic blood uwwmdlup35 mm[Hg]Nolan Sebastian DO Work Phone: [facility] HospitalJsphjbzsyk83-59-1095 13:59-0500Systolic blood umiikpcg507 mm[Hg]Nolan Sebastian DO Work Phone: [facility] HospitalIaqgleoroq96-22-5110 09:44-0500Body mass index (BMI) [Ratio]43.95 kg/m2[facility]01-17-2025 09:44-0500Body sxjalg165.28 kg[facility]05-14-2023 03:40-0400Body qlugur923.9256 kgDR JULIANNE LAMBERT .The [facility] SystemComment on above:Performed By: #### JESUS SANDOVAL #### [facility] [address] [place] [address] Dr. Loyd Coppola Encounters Encounter DateEncounter TypeCare ProviderFacilityStart: 09-21-2025 End: 03-90-4796Ehvbnl Jelena Albrecht NP Work Phone: [facility]Start: 09-21-2025 End: 89-97-7587Ntfwpk flowsAlbaro Albrecht CODING COMPLIANCE SPECIALIST Work Phone: [facility] OBGYNStart: 09-21-2025 End: 58-85-5174rbgeeltehpUWPIIXMF EBERLYNot AvailableStart: 07-14-2025 End: 71-16-2684Wwnlaramcc care visitBlank Albrecht NP Work Phone: [facility] OBGYNComment on above:6 weeks follow-up ([facility]); Spontaneous vaginal delivery ([facility])Start: 07-14-2025 End: 73-94-2396uuiaseijopZHPUNFKM EBERLYNot AvailableStart: 07-07-2025 End: 60-16-7937miwrvrcqhjNfl Ramey PA Work Phone: [facility] OBGYNComment on above:Benign essential hypertension in obstetric context, antepartum ([facility]) (Primary Dx)Start: 06-30-2025 End: 19-83-9878uygfywazzqHVA RAMEYNot AvailableStart: 06-30-2025 End: 62-87-1565Ewgxepg encounter statusKristan RUBIO Work Phone: [facility] Work Phone: Start: 06-30-2025 End: 55-32-8546Fqlcvdrolj care visitKristan RUBIO Work Phone: noms Chris OBGYNComment on above:BP checkStart: 06-27-2025 End: 41-17-0136qzarrhouuxNYBYAG [facility] Start: 06-23-2025 End: 79-85-3300vaivltnhuoQZALBCLN EBERLYNot AvailableStart: 06-23-2025 End: 44-78-1052Cuvodz outpatient visit 10 minutesBlank Albrecht CODING COMPLIANCE SPECIALIST Work Phone: [facility] Chris OBGYNComment on above:Blood pressure checkStart: 06-23-2025 End: 36-31-9631Ukfmuvw encounter statusBlank Albrecht NP Work Phone: no Healthcare Work Phone: Start: 06-16-2025 End: 78-90-7269ircibfvnwiDGYWJ FAZIONot AvailableStart: 06-16-2025 End: 20-62-3197Oerdug outpatient visit 15 minutesCorey Sebastian DO Work Phone: [facility] Chris OBGYNComment on above:Encounter for visit ([facility]); Blood pressure checkStart: 06-16-2025 End: 49-66-2705Wnclstq encounter statusCorey Sebastian DO Work Phone: NO[facility] HealthcareStart: 06-08-2025 End: 12-14-6716Umyvqhatj Result EncounterCorey Sebastian DO Work Phone: noms External Department UnsolicitedStart: 06-08-2025 End: 15-54-1240Czcmnxmsc Result EncounterCorey Sebastian DO Work Phone: noms External Department UnsolicitedStart: 06-07-2025 End: 97-86-3218Bbcvfkksm Result EncounterCorey Sebastian DO Work Phone: noms External Department UnsolicitedStart: 06-07-2025 End: 18-82-3324Tjeswxzjx Result EncounterCorey Sebastian DO Work Phone: noms External Department UnsolicitedStart: 06-07-2025 End: 60-08-2258ninkspwujlFVEWT FAZIONot AvailableStart: 06-07-2025 End: 34-81-1451Hqetbges flow sheetCorey Sebastian DO Work Phone: [facility] OBGYNComment on above:Throbbing headache; Encounter for visit ([facility])Start: 06-04-2025 End: 82-03-5898Rspwxiupu Result EncounterCorey Sebastian DO Work Phone: noms External Department UnsolicitedStart: 06-04-2025 End: 85-90-9155Mwutwmfzy Result EncounterCorey Sebastian DO Work Phone: noms External Department UnsolicitedStart: 06-03-2025 End: 95-86-4787Xtdodlbnz Result EncounterCorey Sebastian DO Work Phone: noms External Department UnsolicitedStart: 06-03-2025 End: 49-59-0426Esyemhkhh Result EncounterCorey Sebastian DO Work Phone: noms External Department UnsolicitedStart: 06-02-2025 End: 30-17-3447Kwkvjmxwl Result EncounterCorey Sebastian DO Work Phone: noms External Department UnsolicitedStart: 06-02-2025 End: 56-86-5069Tqorrompp Result EncounterCorey Sebastian DO Work Phone: noms External Department UnsolicitedStart: 06-02-2025 End: 77-58-9412Dsqahh outpatient visit 15 minutesKareem Hall APRN-MACHINE MAINTENANCE SERVICER Work Phone: [phone]-Oxtdu Medicine at [facility] Comment on above:Gestational diabetes mellitus (GDM) in third trimester controlled on oral hypoglycemic drug (Primary Dx)Start: 06-02-2025 End: 22-96-6645sagxbnzxygZPBASEWB BROGANMercy Memorial Hospitaltart: 05-31-2025 End: 13-18-2928Xyqbsx flowsheetKristan RUBIO Work Phone: noms BCP OBStart: 05-31-2025 End: 15-41-3268Zvzixd flowsheetKristan RUBIO Work Phone: n[facility] BCP OBStart: 05-31-2025 End: 18-21-3918qfrrhovsmpXYR RAMEYNot AvailableStart: 05-31-2025 End: 03-95-7746Eyqlczxh flow sheetKristan RUBIO Work Phone: noms BCP OBComment on above:Third trimester ([facility]); 36 weeks gestation of ([facility])Start: 05-30-2025 End: 15-89-7795Dhrifixcg Result EncounterCorey Sebastian DO Work Phone: noms External Department UnsolicitedStart: 05-30-2025 End: 98-30-2510Lpxgftuzg Result EncounterCorey Sebastian DO Work Phone: noms External Department UnsolicitedStart: 05-26-2025 End: 36-36-3119Axmftkhpz Result EncounterCorey Sebastian DO Work Phone: noms External Department UnsolicitedStart: 05-26-2025 End: 58-36-4824Uhigkfgwr Result EncounterCorey Sebastian DO Work Phone: NOTI External Department UnsolicitedStart: 05-25-2025 End: 70-59-6000Fbinhouwo Result EncounterCorey Sebastian DO Work Phone: noms External Department UnsolicitedStart: 05-25-2025 End: 43-27-8211Iorivbpns Result EncounterCorey Sebastian DO Work Phone: NOXH External Department UnsolicitedStart: 05-24-2025 End: 13-32-0274Kkydtbouw Result EncounterCorey Sebastian DO Work Phone: noms External Department UnsolicitedStart: 05-24-2025 End: 00-80-0431Gkemxltqr Result EncounterCorey Sebastian DO Work Phone: noms External Department UnsolicitedStart: 05-24-2025 End: 09-58-1790Iggotfiab encounterRufina Hurd CMAMaternal- Medicine at [facility] Hospitaltart: 05-24-2025 End: 30-10-2215qusmyxwmdxGPT RAMEYNot AvailableStart: 05-24-2025 End: 79-10-1645Dsveedbp flow sheetKristan Fish PA Work Phone: noms BCP OBComment on above:Third trimester ([facility]); 35 weeks gestation of ([facility]); induced hypertension, antepartum ([facility])Start: 05-17-2025 End: 55-75-5844Rjogul flowsheetCorey Sebastian DO Work Phone: NOM[facility] BCP OBStart: 05-17-2025 End: 24-94-2297Fgzxis flowsheetCorey Sebastian DO Work Phone: [facility] BCP OBStart: 05-17-2025 End: 87-68-8241Fbcxownh flow sheetCorey Sebastian DO Work Phone: [facility] BCP OBComment on above:Third trimester ([facility]); 34 weeks gestation of ([facility]); Gestational diabetes mellitus (GDM), antepartum, gestational diabetes method of control unspecified([facility])Start: 05-17-2025 End: 70-70-4412qdpocrcobwVKEAR FAZIONot AvailableStart: 05-16-2025 End: 23-43-4028Tmqmjewbv Result EncounterCorey Sebastian DO Work Phone: NOMS External Department UnsolicitedStart: 05-16-2025 End: 38-71-2296Kewaayxkl Result EncounterCorey Sebastian DO Work Phone: NOTS External Department UnsolicitedStart: 05-09-2025 End: 09-12-4977Eoodaampm Result EncounterCorey Sebastian DO Work Phone: NOSD External Department UnsolicitedStart: 05-09-2025 End: 18-38-5144Oilxwuwxf Result EncounterCorey Sebastian DO Work Phone: NOMS External Department UnsolicitedStart: 05-02-2025 End: 64-09-3246Eeskup flowsheetKristan RUBIO Work Phone: NOM[facility] BCP OBStart: 05-02-2025 End: 49-96-0794Ossrwr zoheetKristan RUBIO Work Phone: [facility] BCP OBStart: 05-02-2025 End: 73-47-9290Kedbddcdc Result EncounterCorey Sebastian DO Work Phone: NOMS External Department UnsolicitedStart: 05-02-2025 End: 13-75-5735Tsronwqt flow sheetKristan RUBIO Work Phone: [facility] BCP OBComment on above:32 weeks gestation of ([facility]); Third trimester ([facility])Start: 05-02-2025 End: 00-26-5267wmgrhuvqlmOGO Seth AvailableStart: 04-29-2025 End: 91-75-9739Ixmxdixlr encounterRufina Hurd CMAMaternal- Medicine at [facility] Hospitaltart: 04-25-2025 End: 77-58-4107Wmnaofmhl Result EncounterCorey Sebastian DO Work Phone: noms External Department UnsolicitedStart: 04-25-2025 End: 71-53-8775Fykfvpqgz Result EncounterCorey Sebastian DO Work Phone: noms External Department UnsolicitedStart: 04-19-2025 End: 78-66-0876Zvknrsamz encounterLahadley Hurd CMAMaternal- Medicine at [facility] Hospitaltart: 04-19-2025 End: 96-20-5709Angquy outpatient visit 25 minutesColleen E Otilia FRYE Work Phone: [phone]-Cyuxu Medicine at [facility] Comment on above:Gestational diabetes mellitus (GDM) in second trimester controlled on oral hypoglycemic drug (Primary Dx)Start: 04-19-2025 End: 71-99-6903pshhpglecuZDFIABJ E OTILIAProMedica Columbus HospitalStart: 04-18-2025 End: 06-52-8117Tuvobu flowsheetCorey Sebastian DO Work Phone: noms BCP OBStart: 04-18-2025 End: 35-03-5555Esgfrb flowsheetCorey Sebastian DO Work Phone: noms BCP OBStart: 04-18-2025 End: 25-58-1011Cmrqnrozp Result EncounterCorey Sebastian DO Work Phone: noms External Department UnsolicitedStart: 04-18-2025 End: 61-29-6257mlbghxmjxlOEBCG FAZIONot AvailableStart: 04-18-2025 End: 17-25-5085Kpwxaozj flow sheetCorey Sebastian DO Work Phone: noms BCP OBComment on above:30 weeks gestation of ; Third trimester pregnancyStart: 04-11-2025 End: 47-28-3825Tszomwgln Result EncounterCorey Sebastian DO Work Phone: noms External Department UnsolicitedStart: 04-11-2025 End: 07-77-3141Pfbdloosl Result EncounterCorey Sebastian DO Work Phone: noMS External Department UnsolicitedStart: 04-05-2025 End: 01-93-9769Msnmfd flowsheetCorey Sebastian DO Work Phone: noms BCP OBStart: 04-05-2025 End: 47-92-3685Qvghib flowsheetCorey Sebastian DO Work Phone: NOM[facility] BCP OBStart: 04-05-2025 End: 57-60-8091Aenvwxoe flow sheetCorey Sebastian DO Work Phone: noms [facility] OBComment on above:Third trimester ; 28 weeks gestation of ; Gestational diabetes mellitus (GDM), antepartum, gestational diabetes method of control unspecified; H/O: hypertensionStart: 04-05-2025 End: 33-96-5655xpbraxmtbtXMWCN FAZIONot AvailableStart: 03-23-2025 End: 77-18-9215Atmbziujx Luis Miguel Hurd CMAMaternal- Medicine at [facility] Hospitaltart: 03-23-2025 End: 68-34-5572Rvawrj outpatient visit 25 minutesKareem YAP Work Phone: [phone]-Vgavu Medicine at [facility] Comment on above:Gestational diabetes mellitus (GDM) in second trimester controlled on oral hypoglycemic drugStart: 03-23-2025 End: 37-66-4906jrihwwjylbMCNAMIPO BROGANProEast Liverpool City Hospitaltart: 03-16-2025 End: 73-09-0023Rugimtgdp Martell Lopez RN Work Phone: [phone]-Gasab Medicine at [facility] Start: 03-14-2025 End: 70-98-0066Qjdygn flowsheetCorey Sebastian DO Work Phone: noms BCP OBStart: 03-14-2025 End: 38-60-9921Cgzpqp flowsheetCorey Sebastian DO Work Phone: noms BCP OBStart: 03-14-2025 End: 32-90-8867upzmubovmaKLWJC FAZIONot AvailableStart: 03-14-2025 End: 69-45-3272Wyaqmupa flow sheetCorey Sebastian DO Work Phone: noms BCP OBComment on above:Second trimester ; 25 weeks gestation of pregnancyStart: 03-08-2025 End: 98-05-4066Prtmppklm encounterLolahadley Hurd CMAMaternal- Medicine at [facility] HospitalStart: 03-08-2025 End: 94-65-9676Eoamlb outpatient new 45 minutesColleen E Otilia PA-C Work Phone: [phone]-Lwhnx Medicine at [facility] Comment on above:Gestational diabetes mellitus (GDM) in second trimester controlled on oral hypoglycemic drug (Primary Dx)Start: 03-08-2025 End: 29-60-7937gidtpdkaeiYQTXXYV E LAVOYProMedica Columbus HospitalStart: 03-07-2025 End: 21-01-1708Chyalqwbn Result EncounterCorey Sebastian DO Work Phone: noms External Department UnsolicitedStart: 03-07-2025 End: 92-90-1430Yxetalopq Result EncounterCorey Sebastian DO Work Phone: noms External Department UnsolicitedStart: 03-04-2025 End: 30-02-0545Umjqctdit encounterAmanda Puccetti RNMaternal- Medicine at [facility] HospitalStart: 03-02-2025 End: 10-47-4971Ujldzgsze encounterAmanda Puccetti RNMaternal- Medicine at [facility] Hospitaltart: 02-24-2025 End: 84-61-9115Liqxzzauo encounterJewels Pedersen LD Work Phone: [phone]-Dbunb Medicine at [facility] Start: 02-21-2025 End: 25-54-8896Bteges flowsheetCorey Sebastian DO Work Phone: noms BCP OBStart: 02-21-2025 End: 62-93-0801Zhnksx flowsheetCorey Sebastian DO Work Phone: noms BCP OBStart: 02-21-2025 End: 40-05-9344pehmffowpxXGICU FAZIONot AvailableStart: 02-21-2025 End: 11-40-4371Pnqzbobp flow sheetCorey Sebastian DO Work Phone: noms [facility] OBComment on above:Second trimester ; 22 weeks gestation of pregnancyStart: 02-16-2025 End: 20-29-1183twvmxfennmCFTHT FISCHERProMedica Genesis Hospitaltart: 02-16-2025 End: 86-18-8764Xbvotnyx care educationViolet Lopez RN Work Phone: [phone]-Nlune Medicine at [facility] Comment on above:Diet controlled gestational diabetes mellitus (GDM) in second trimester (Primary Dx); Encounter for diabetes educationStart: 02-14-2025 End: 22-77-7038rtzaqzgygfTGCGA FAZIONot AvailableStart: 02-07-2025 End: 70-96-2770Vfnss Linden YAP Work Phone: [phone]-Mdxpr Medicine at [facility] Start: 02-07-2025 End: 71-62-3210Kzjgutjfu Result EncounterCorey Sebastian DO Work Phone: noms External Department UnsolicitedStart: 02-07-2025 End: 00-82-2258Jzfhfaagl Result EncounterCorey Sebastian DO Work Phone: noms External Department UnsolicitedStart: 01-24-2025 End: 78-81-8166gyqsjwwrmxKICCW FAZIONot AvailableStart: 01-08-2025 End: 64-33-8365Gfgappfdx Result EncounterCorey Sebastian DO Work Phone: noms External Department UnsolicitedStart: 01-08-2025 End: 91-24-0829Mzrukqtel Result EncounterCorey Sebastian DO Work Phone: noms External Department UnsolicitedStart: 12-28-2024 End: 58-34-3919Ewxbos flowsheetCorey Sebastian DO Work Phone: NOFB BCP OBStart: 12-28-2024 End: 81-48-4190Gbdmor flowsheetCorey Sebastian DO Work Phone: NOM[facility] BCP OBStart: 12-28-2024 End: 35-11-8837Uqzjxhno flow sheetCorey Sebastian DO Work Phone: NOTN BCP OBComment on above:Second trimester ; 14 weeks gestation of ; Diabetes mellitus screeningStart: 12-28-2024 End: 13-54-9731wgxskabkflTOJGC FAZIONot AvailableStart: 11-27-2024 End: 05-21-1032Bgzquuims Result EncounterCorey Sebastian DO Work Phone: NOMS External Department UnsolicitedStart: 11-27-2024 End: 44-81-0273Izusauqdy Result EncounterCorey Sebastian DO Work Phone: noms External Department UnsolicitedStart: 11-26-2024 End: 98-08-6182Vpnrfcjvo Result EncounterCorey Sebastian DO Work Phone: noms External Department UnsolicitedStart: 11-26-2024 End: 20-00-9320Qhpotylha Result EncounterCorey Sebastian DO Work Phone: noms External Department UnsolicitedStart: 11-26-2024 End: 82-11-9176fturjvndmcXIQBV FAZIONot AvailableStart: 11-26-2024 End: 47-84-4615Crceun outpatient visit 5 minutesNoms Bcp Ob Sebastian NurseNOMS BCP OBComment on above:GA: 33a0aWtedf: 04-28-2024 End: 90-97-2369Dwcepnukr Result EncounterCorey Sebastian DO Work Phone: noMS External Department UnsolicitedStart: 04-28-2024 End: 54-56-4604Cimmjrfym Result EncounterCorey Sebastian DO Work Phone: NOAZ External Department UnsolicitedStart: 04-09-2023 ambulatoryDR NOLAN SEBASTIAN .Facility:D3Vrbcj: 03-29-2023 End: 20-72-3225iaxdqjcfkyDZF POLINA .Facility:M0Ortcq: 03-21-2023 End: 39-40-6642ktnvaasifoAJ NOLAN SEBASTIAN .Facility:G2Codba: 02-18-2023 End: 67-64-7883ptcvfdywbnRT NOLAN SEBASTIAN .Facility:S2Xpfwt: 02-13-2023 End: 50-08-0231iqqavnuklnLA NOLAN SEBASTIAN .Facility:I5Bynnq: 01-31-2023 End: 35-69-9523uqxylwvczyIB NOLAN SEBASTIAN .Facility:F9Uztun: 01-28-2023 End: 70-25-8715lqlpfjfjabZR DOCTOR MISCFacility:I2Qigxs: 01-23-2023 End: 48-83-8712irlndhaiipPC NOLAN SEBASTIAN .Facility:X5Obnmk: 09-11-2022 End: 63-82-6689jauztkfxcaQM JULIANNE GAMAPREETHIRiver .Facility: Procedures DateProcedureProcedure DetailPerforming ClinicianStart: 29-42-0980Cb angiography chest w/contrast/noncontrastCorey Sebastian DO Work Phone: Start: 54-66-0120EXQ CBC WITH AUTO DIFFCorey Sebastian DO Work Phone: Start: 60-29-8773GAV CBC WITH AUTO DIFFCorey Sebastian DO Work Phone: Start: 99-60-3149PKX CBC WITH AUTO DIFFCorey Sebastian DO Work Phone: Start: 03-32-8239SXT CBC WITH AUTO DIFFCorey Sebastian DO Work Phone: Start: 00-76-1488CQR CBC WITH AUTO DIFFCorey Sebastian DO Work Phone: Start: 86-39-3329Wljbl dip stick/tablet rgnt non-auto w/o micrscpAmy Polina RUBIO Work Phone: Start: 95-60-7572BM OB BPP W NON-STRESSCorey Sebastian DO Work Phone: Start: 29-88-4712DQ OB BPP W NON-STRESSCorey Sebastian DO Work Phone: Start: 28-38-0761AO OB GROWTHCorey Sebastian DO Work Phone: Start: 17-99-9646Ynild dip stick/tablet rgnt non-auto w/o micrscpAmy Polina RUBIO Work Phone: Start: 01-52-0884FA OB BPP W NON-STRESSCorey Sebastian DO Work Phone: Start: 22-72-2347ON OB BPP W NON-STRESSCorey Sebastian DO Work Phone: Start: 51-61-0297KY OB BPP W NON-STRESSCorey Sebastian DO Work Phone: Start: 14-91-4415SY OB BPP W NON-STRESSCorey Sebastian DO Work Phone: Start: 19-97-7837Qeoqv dip stick/tablet rgnt non-auto w/o micrscpBlank Albrecht NP Work Phone: Start: 58-77-3783PT OB BPP W NON-STRESSCorey Sebastian DO Work Phone: Start: 98-41-0830LK OB BPP W NON-STRESSCorey Sebastian DO Work Phone: Start: 15-89-7966Dlxfo dip stick/tablet rgnt non-auto w/o micrscpCorey Sebastian DO Work Phone: Start: 78-19-4307WI OB BPP W NON-STRESSCorey Sebastian DO Work Phone: Start: 71-64-6915Wrryx dip stick/tablet rgnt non-auto w/o micrscpCorey Sebastian DO Work Phone: Start: 59-78-2747Nbybcnwcii glycosylated a1xZesyqgl Suzi Acosta UDAY Work Phone: Start: 25-54-1818AT OB INCOMPLETE ANATOMYCorey Sebastian DO Work Phone: Start: 27-96-7703Nlxmx dip stick/tablet rgnt non-auto w/o micrscpCorey Sebastian DO Work Phone: Start: 76-30-3038Oozzskz quantitative blood xcpt reagent stripKareem Isabel SCREENER AND BLENDER OPERATOR-MACHINE MAINTENANCE SERVICER Work Phone: Start: 40-88-3299AAN, SERUM, OPEN SPINA BIFIDACorey Sebastian DO Work Phone: Start: 09-98-4872DFESVBQUI/GC BY PCR HOLLEY SWABNot In System Ref ProvStart: 47-05-0329FZYUICRQL/GC BY PCR THINPREP FLUIDNot In System Ref ProvStart: 77-35-2236Gxeaq count complete automatedNot In System Ref Prov Start: 13-17-4728OTX CBC WITH AUTO DIFFCorey Sebastian DO Work Phone: Start: 27-50-7379Dvwgl dip stick/tablet rgnt non-auto w/o micrscpCorey Sebastian DO Work Phone: Start: 65-27-0042Ehfrytjt screenKareem Isabel SCREENER AND BLENDER OPERATOR-MACHINE MAINTENANCE SERVICER Work Phone: Start: 69-07-7174Kjdw scrn 1+ class nonchromoNot In System Ref ProvStart: 61-21-6402NCPJN FREE CELL DNA (NON-[facility])Not In System Ref ProvStart: 81-98-1029Uphdphhrre glycosylated e7hQqtoj R Sebastian DO Work Phone: Start: 51-32-9602FCQ 1&2 AB/AG SCREEN (P24 AG)Not In System Ref ProvStart: 78-36-8816Kdmv ia hepatitis b surface antigenNot In System Ref ProvStart: 53-64-3229Tdurifsk test non-treponemal antibody qualNot In System Ref ProvStart: 43-78-0542NHST AND SCREENNot In System Ref ProvStart: 19-64-6616UGH CBC WITH AUTO DIFFCorey Sebastian DO Work Phone: Start: 08-64-5816MK OB TRANSVAGINALCorey Sebastian DO Work Phone: Start: 63-95-2708HS PELVIS W/ TRANSVAGINALCorey Sebastian DO Work Phone: Start: 59-40-3057Ufzpqjscxnc observation [Identifier] in Cervix by Cyto Nargis YAP Work Phone: Plan of Treatment DateCare ActivityDetailAuthorStart: 53-63-4517Cvrwj BMI ScreeningAdult BMI ScreeningProSelect [facility] SystemStart: 35-68-8755Pzhopkbyq for malignant neoplasm of cervixPap SmearProMedica Defiance Regional Hospital SystemStart: 61-79-9775Wjggb BMI ScreeningAdult BMI ScreeningProMedica Defiance Regional Hospital SystemStart: 09-21-2025 End: 06-93-4801Vivgcpr encounter procedureNOMS Chris BURKSNComment on above: ArrivedStart: 07-14-2025 End: 41-97-7264cmrtncespz96/04/2025 1:30 PM EDT Visit NOMChip MOSES [address] [facility] [place], [id number] Blank Albrecht, SOPHIA [address] [place] [address] NOMChip BURKSNStart: 36-75-3032Vmularptq vaccinationInfluenza VaccineProMedica Defiance Regional Hospital SystemStart: 06-30-2025 End: 02-67-0753abndtuyvxr34/21/2025 10:50 AM EDT Visit NOMChip BURKSN [address] [facility] [place] [address] Kristan Fish PA [address] [facility] [address] [place], [place] [id number] NOMChip [place] OBGYNStart: 06-23-2025 End: 03-06-8693purpsgkzas03/14/2025 9:30 AM EDT Visit NOMS Chris MOSES [address] [place], [id number] Blank Albrecht, CODING COMPLIANCE SPECIALIST [address] [facility] [place] [address] ROCKY [place] OBGYNStart: 06-07-2025 End: 71-26-0129Ptwifvy encounter procedureNOMS BCP OBStart: 06-02-2025 End: 10-22-9418Wzjfbgybfjbh consultation with webvvte8306/02/2025 9:30 AM EDT Telemedicine Maternal- Medicine at [facility] [address] [place] [phone] Kareem Hall, GABINO-MACHINE MAINTENANCE SERVICER [address] [place] [address] [facility] 05-31-2025 End: 36-30-1710NNHIQSM, GROUP B STREP WITH SUSCEPTIBLITYCULTURE, GROUP B STREP WITH SUSCEPTIBLITY Lab Routine Third trimester ([facility]) Expected: 05/31/2025, Expires: 05/31/2026[facility] Work Phone: comment on above:Expected: 05/31/2025, Expires: 05/31/2026Start: 05-31-2025 End: 41-69-7670Mnpmedt encounter iotjtazjk81/22/2025 10:50 AM EDT Routine NOMS BCP OB [address] [place] [phone] Kristan Fish PA [address] [facility] [place] [address] NOMS BCP OBStart: 05-24-2025 End: 41-77-2722Njjvamf encounter zlmtizcpb50/15/2025 8:40 AM EDT Routine NOMS BCP OB [address] [place] [address] Kristan Fish PA [address] [facility] [place] [address] NOMS BCP OBStart: 05-17-2025 End: 52-35-5704Oyptwxe encounter myifuuxuv87/08/2025 11:40 AM EDT Routine NOMS BCP OB [address] [facility] [place] [address] Nolan Cortes, [address] [place] [address] NOMS BCP OBStart: 05-02-2025 End: 79-72-0813Vztbtqs encounter procedureNOMS BCP OBComment on above:Arrived Start: 04-19-2025 End: 23-75-8356Ttswmaoltrfe consultation with lkdqpen9204/19/2025 10:30 AM EDT Telemedicine Maternal- Medicine at [facility] [address] [place] [address] Kenya Acosta, PASalomeC [address], [place] [facility] 04-18-2025 End: 33-33-3002Ueewqmi encounter xrimcnall27/09/2025 1:00 PM EDT Routine NOMS BCP OB [address] [facility] [place] [address] Nolan Cortes, [facility] [place] [address] NOMS BCP OBStart: 04-05-2025 End: 87-24-9973AK biophysical profile w non stress testUS biophysical profile w non stress test Imaging Routine Gestational diabetes mellitus (GDM),antepartum, gestational diabetes method of control unspecified H/O: hypertension Expected: 04/05/2025 (Approximate), Expires: 10/06/2025NOMS HealthcareComment on above:Expected: 04/05/2025 (Approximate), Expires: 10/06/2025Start: 04-05-2025 End: 22-17-6958Rjyfwvi encounter procedureNOMS BCP OBComment on above:Arrived Start: 03-23-2025 End: 71-86-5908Fqkzgrjqpugq consultation with uipseyx9103/23/2025 10:30 AM EDT Telemedicine Maternal- Medicine at [facility] [address] [place] [phone] Kareem Hall, SCREENER AND BLENDER OPERATOR-MACHINE MAINTENANCE SERVICER [address] [place] [address] [facility] 03-14-2025 End: 85-91-1551Zwlsaxt encounter pjyshtryi64/05/2025 1:50 PM EDT Routine NOMS BCP OB [address] [facility] [place] [place] [phone] Nolan Cortes, DO [address] [place] [address] NOMS BCP OBStart: 03-08-2025 End: 82-94-7968Iumxyqu creat ratioProtein creat ratio Lab Routine Gestational diabetes mellitus (GDM) in second trimester controlled on oral hypoglycemic drug Expected: 03/08/2025 (Approximate), Expires: 06/07/2025ProSelect [facility]ty [facility] System Comment on above:Expected: 03/08/2025 (Approximate), Expires: 06/07/2025Start: 03-08-2025 End: 98-80-1322Pndcivp encounter gnjpbsnoy31/29/2025 1:00 PM EDT Office Visit Maternal- Medicine at [facility] [address] [place] [facility] [place] [address] Kenya Acosta PA-C [address] [place] [address] [facility] 02-21-2025 End: 99-99-3000Xoyefdv encounter cticmosdb59/14/2025 1:20 PM EDT Routine NOMS BCP OB [address] [facility] [place] [place] [address] Nolan Cortes, DO [address] [place], [place] [address] [address] NOMS BCP OBStart: 02-14-2025 End: 14-49-9300Xrrprkvjvfxm / ancillary services /07/2025 1:00 PM EDT Ancillary Procedure [facility]S BCP OB [address] [facility] [place] [place] [address] NOMS BCP OBStart: 02-10-2025 End: 34-97-2192uniqluhtuu56/03/2025 1:30 PM EDT Support Visit Maternal- Medicine at [facility] [address] [place] [address] Violet Lopez, RN [address] [facility], [address] [place] [address], [place] [address] Jewels Pedersen LD [address] [place] [address] [facility] 01-24-2025 End: 34-86-5073Nrlbavh encounter zlxtdgkan45/17/2025 11:20 AM EDT Routine NOMS BCP OB [address] [place] [address] Nolan Cortes, DO [address] [place] [address] [place] [address] [facility] OBStart: 12-28-2024 End: 91-01-8085Vdubfyccrey of glucose 1 hour after glucose challenge for glucose tolerance testGlucose tolerance, 1 hour Lab Routine Diabetes mellitus screening Expected: 12/28/2024 (Approximate), Expires: 12/28/2025[facility] Work Phone: comment on above:Expected: 12/28/2024 (Approximate), Expires: 12/28/2025Start: 12-28-2024 End: 97-41-7227Jlkpxpw encounter procedureNOHOLLYWOOD [facility] OBComment on above:Arrived Start: 12-27-2024 End: 39-37-4629Zslwyhc encounter lhpluhyzp53/17/2025 1:40 PM EST Routine [address] [place] [address] Nolan Cortes, [address] [place] [address] [facility] OBStart: 11-26-2024 End: 64-62-4679CMA/RhABO/Rh Lab Routine Missed menses , unspecified gestational age Expected: 11/26/2024 (Approximate), Expires: 11/26/2025[facility] HealthcareComment on above:Expected: 11/26/2024 (Approximate), Expires: 11/26/2025Start: 11-26-2024 End: 58-40-9176Ootpw type and Indirect antibody screen panel - BloodType and screen Lab Routine Missed menses , unspecified gestational age Expected: 11/26/2024 (Approximate), Expires: 11/26/2025[facility] Work Phone: comment on above:Expected: 11/26/2024 (Approximate), Expires: 11/26/2025Start: 11-26-2024 End: 48-56-3201Rwapl of abuse panel - Urine by Screen methodRapid drug screen, urine Lab Routine , unspecified gestational age Encounter for supervision of normal first in first trimester Expected: 11/26/2024 (Approximate), Expires: 11/26/2025N[facility]S HealthcareComment on above:Expected: 11/26/2024 (Approximate), Expires: 11/26/2025Start: 99-93-4869Mjbckxdto vaccinationInfluenza VaccineProSelect [facility] SystemStart: 85-56-7437Gmjbp BMI ScreeningAdult BMI ScreeningProMedica Defiance Regional Hospital SystemStart: 53-33-6553Vraduia ScreeningTobacco ScreeningProMedica Defiance Regional Hospital SystemStart: 53-83-7817QOqI,Tdap and Td Vaccines (1 - Tdap)DTaP,Tdap and Td Vaccines (1 - Tdap)[facility] SystemStart: 00-44-6861Qfrdcboldf ScreeningDepression ScreeningProMedica Defiance Regional Hospital SystemStart: 97-39-8422Ltuqiuv ScreeningTobacco ScreeningProMedica Defiance [facility] Hospital System Bacteria identified in Urine by CultureUrine culture Microbiology Routine Missed menses Ordered: 11/26/2024[facility] HealthcareComment on above:Ordered: 11/26/2024 CBC W Auto Differential panel - BloodCBC and differential Lab Routine Missed menses , unspecified gestational age Ordered: 11/26/2024[facility] Comment on above:Ordered: 11/26/2024 End: 12-00-9263Xwmmaeacekkdi metabolic 2000 panel - Serum or PlasmaComprehensive [...] menses , unspecified gestational age Ordered: 11/26/2024 [facility] HealthcareComment on above:Ordered: 11/26/2024Hepatitis C virus Ab [Presence] in Serum or Plasma by ImmunoassayHepatitis C antibody Lab Routine Missed menses , unspecified gestational age Ordered: 11/26/2024[facility] HealthcareComment on above:Ordered: 11/26/2024HIV-1/HIV-2 antigen/antibody combination immunoassayHIV-1 and HIV-2 antibodies Lab Routine Missed menses , unspecified gestational age Ordered: 11/26/2024[facility] HealthcareComment on above:Ordered: 11/26/2024Reagin Ab [Presence] in Serum by RPRRPR Lab Routine Missed menses , unspecified gestational age Ordered: 11/26/2024[facility] HealthcareComment on above:Ordered: 11/26/2024Rubella antibody, IgGRubella antibody, IgG Lab Routine Missed menses , unspecified gestational age Ordered: 11/26/2024[facility] HealthcareComment on above:Ordered: 11/26/2024 End: 14-98-7213BM for pregnancyUS OB follow up transabdominal approach Imaging Routine Gestational diabetes mellitus (GDM), antepartum, gestational diabetes method of control unspecified H/O: hypertension v8qkktk for 4 Occurrences starting 04/05/2025 until 10/06/2025[facility] Work Phone: comment on above:z0bdwrt for 4 Occurrences starting 04/05/2025 until 10/06/2025 Immunizations Immunization DateImmunizationNotesCare HuaxhjflFvdzngdn50-92-5773ccqobnkwo virus vaccine, unspecified formulationKareem Hall SCREENER AND BLENDER OPERATOR-MACHINE MAINTENANCE SERVICER Work Phone: p[facility]10-16-2021RHO(D) immune globulin- IV or IMKareem Hall SCREENER AND BLENDER OPERATOR-MACHINE MAINTENANCE SERVICER Work Phone: p[facility] Payers DatePayer CategoryPayerPolicy [id number] [facility] Care CenterBCBS Member Subscriber Plan / Payer (Effective 2021-Present) Name: Charlene Purvis MemberID: [id number] Relation to Subscriber: Self Name: Charlene Purvis ID: Not on file Type: Not on file Address: [address] [place] [id number] County Hospital - PPOANTHEM Member Subscriber Plan / Payer (Effective 2018- Present) Name: Charlene Purvis Relation to Subscriber: Self Name: Charlene Purvis Payer ID: [id number] (NAIC) Type: Not on file Address: [address] [place] [id number] 2..1.908701.3.57[id number] 2..1.907316.3.57[id number] 2..1.934916.3.57[id number] 2..1.603481.3.579.[id number] 2..1.813960.3.579.[id number] 2..1.344019.3.57[id number] 2.0.1.170662.3.579.2.4[id number] 2.0.1.399494.3.579.[id number] 2.840.1.481544.3.579.2.47145-31-0302Tzjdnaf319703072 2.16.840.1.266008.3.579.2.976749-42-1151Orcjvaf098861895 2.840.1.540531.3.579.2.016485-48-2384Ifusrxd165792739 2.840.1.371535.3.579.2.35[id number] 2.840.1.484027.3.579.2.631809-01-1800Yjcwkkw797476313 2.840.1.589068.3.57[id number] 2.0.1.042018.3.579.2.475278-68-2721Nmsigdd77797551 2.840.1.067125.3.579.[id number] 2.840.1.392474.3.57[id number] 2.840.1.961427.3.57[id number] 2.840.1.873239.3.579.[id number] 2.840.1.522275.3.57[id number] 2.840.1.993543.3.579.2.1[id number] 2.840.1.132458.3.57[id number] 2.16.840.1.055497.3.579.2.361971-04-0068Vtrdpuq95503987 2.16.840.1.378613.3.579.2.194347-28-2053Xwndowm69291203 2.16.840.1.992789.3.579.2.229762-79-9959Hibbpyi07124466 2.16.840.1.190902.3.579.2.099260-69-2253Fsyoyba7069119 2.16.840.1.795362.3.579.2.001229-87-9357Mhnhesr8898103 2.16.840.1.573667.3.579.2.180696-73-0332Gjkamyt2243519 2.16.840.1.667876.3.579.2.359050-20-7346Gkzxiqu0071919 2.16.840.1.493887.3.579.[id number] 2.16.840.1.279322.3.579.[id number] 2.16.840.1.160717.3.579.[id number] 2.16.840.1.616094.3.579.2.336669-81-2708ZrhadtfONXOZ8107112 Social History DateTypeDetailFacilityStart: 02-18-2023 End: 89-14-3810Azpuyui smoking status NHISEx-smokerNOMS HealthcareHistory of tobacco useCurrent smokerNOMS HealthcareHistory of tobacco useCigarette Smoker [facility] HealthcareStart: 11-26-2024 End: 95-38-3235Uvtrzltkm beverage intakeLifetime non-drinker (finding)[facility] HealthcareStart: 03-18-2024 End: 14-15-0657Lewieww of Social functionNOMS HealthcareStart: 03-18-2024 End: 05-90-6703Zgsrejd use [facility] HospitalStart: 49-01-2099QlahpwokfENCF HealthcareStart: 17-12-1189Lrm assigned at birthNot on [facility] [place] History of tobacco useTobacco Use Types Packs/Day Years Used Date Smoking Tobacco: Former Vaping/E-cigarettes Smokeless Tobacco: NeverAtrium Health Kannapolistart: 54-11-8710Ucbgfae use and exposureSmokeless tobacco non-user [facility]art: 02-07-2025 End: 85-62-8683Jeyocsqwc beverage intakeEx-drinker (finding)[facility]istart: 77-97-7219IqgbpmmyxEnagxihFwhNynmxq Health SystemStart: 10-05-2018 Alcohol CommentraUniversity of Missouri Children's Hospitaltart: 78-56-5944Ong assigned at FemaleAtrium Health Kannapolistart: 19-03-1764XqfBoqnlq (finding)[facility]art: 80-62-5802Uginel identityIdentifies as female gender (finding)[facility]ap[facility]istart: 24-25-4131Kovixy orientationHeterosexual (finding)[facility] Medical Equipment Procedure CodeEquipment CodeEquipment Original TextEquipment IdentifierDates [id number], [id number], [id number]: 01-24-2025 End: 02-23-2025 Clinical Notes 11-26-2024 to 07-14-2025 Note Date & XewjWosgJcanxhrr79-61-4705 History of Present illness Narrative* Blank Albrecht [...] Noted Benign essential hypertension in obstetric context ([facility]) 04/18/2023 Exposure to cat feces 04/18/2023 Gestational diabetes ([facility]) 04/18/2023 Nausea 04/18/2023 History of delivery 02/24/2023 Resolved Ambulatory Problems Diagnosis Date Noted No Resolved Ambulatory Problems Past Medical History: Diagnosis Date Chronic hypertension affecting ([facility]) Exposure to cat feces, sequela Former smoker Herpes exposure History of miscarriage Morbid obesity with BMI of 40.0-44.9, [place] HISTORY PAST MEDICAL HISTORY SOCIAL HISTORY Past Medical History: Diagnosis Date Chronic hypertension affecting ([facility]) Exposure to cat feces, sequela Former smoker Gestational diabetes ([facility]) Herpes exposure History of miscarriage Morbid obesity with BMI of 40.0-44.9, adult ([facility] Social History Tobacco Use Smoking status: Former [...] note reviewed. Exam conducted with a director diabetes present. Vitals: Estimated body mass index is 44.76 kg/m as calculated from the following: Height as of 09/09/23: 5' 7 . Weight as of 06/30/25: 285 lb 12.8 oz. BP: No LMP recorded. ASSESSMENT & PLAN ICD-10-CM 1. 6 weeks follow-up ([facility]) Z39.2 2. Spontaneous vaginal delivery ([facility]) O80 Post Follow Up: Patient [...] of: Blank Albrecht NP documented in this encounterFitzgibbon HospitalJzciduoejg96-70-3953 History of Present illness Narrative* JOANNE Hernandez - 07/07/2025 1:50 PM EDT 5Reason for Appointment: Patient ID: Charlene Purvis is a 34 y.o. female who presents for No chief complaint on file. Patient presents today via telephone call for a telehealth appointment. Patients Phone #: [phone] (mobile) Date: 07/07/2025 Time: 2:18 PM of [...] Noted Benign essential hypertension in obstetric context ([facility]) 04/18/2023 Exposure to cat feces 04/18/2023 Gestational diabetes ([facility]) 04/18/2023 Nausea 04/18/2023 History of delivery 02/24/2023 Resolved Ambulatory Problems Diagnosis Date Noted No Resolved Ambulatory Problems Past Medical History: Diagnosis Date Chronic hypertension affecting ([facility]) Exposure to cat feces, sequela Former smoker Herpes exposure History of miscarriage Morbid obesity with BMI of 40.0-44.9, adult [place] Family History Problem Relation Name Age of [...] behalf of: JOANNE Hernandez documented in this encounterFitzgibbon HospitalFiuwbjopst06-69-1370 History of Present illness Narrative* JOANNE Hernandez [...] Noted Benign essential hypertension in obstetric context ([facility]) 04/18/2023 Exposure to cat feces 04/18/2023 Gestational diabetes ([facility]) 04/18/2023 Nausea 04/18/2023 History of delivery 02/24/2023 Resolved Ambulatory Problems Diagnosis Date Noted No Resolved Ambulatory Problems Past Medical History: Diagnosis Date Chronic hypertension affecting ([facility]) Exposure to cat feces, sequela Former smoker Herpes exposure History of miscarriage Morbid obesity with BMI of 40.0-44.9, adult [place] HISTORY PAST MEDICAL HISTORY SOCIAL HISTORY Past Medical History: Diagnosis Date Chronic hypertension affecting ([facility]) Exposure to cat feces, sequela Former smoker Gestational diabetes ([facility]) Herpes exposure History of miscarriage Morbid obesity with BMI of 40.0-44.9, adult ([facility] Social History Tobacco Use Smoking status: Former [...] behalf of: JOANNE Hernandez documented in this encounterFitzgibbon HospitalVsglnyhytf38-60-0974 NoteUT Cardiology - [facility] Subjective Charlene Purvis is a 34 [...] rhythm, normal ECG Assessment/ (more content not included)...[facility] 06-23-2025 History of Present illness Narrative* Blank Albrecht NP - 06/23/2025 9:30 AM [...] in obstetric context ([facility]) 04/18/2023 Exposure to cat feces 04/18/2023 Gestational diabetes ([facility]) 04/18/2023 Nausea 04/18/2023 History of delivery 02/24/2023 Resolved Ambulatory Problems Diagnosis Date Noted No Resolved Ambulatory Problems Past Medical History: Diagnosis Date Chronic hypertension affecting ([facility]) Exposure to cat feces, sequela Former smoker Herpes exposure History of miscarriage Morbid obesity with BMI of 40.0-44.9, adult [place] HISTORY PAST MEDICAL HISTORY SOCIAL HISTORY Past Medical History: Diagnosis Date Chronic hypertension affecting ([facility] Exposure to cat feces, sequela Former smoker Gestational diabetes ([facility]) Herpes exposure History of miscarriage Morbid obesity with BMI of 40.0-44.9, adult ([facility] Social History Tobacco Use Smoking status: Former [...] Noted Benign essential hypertension in obstetric context ([facility]) 04/18/2023 Exposure to cat feces 04/18/2023 Gestational diabetes ([facility]) 04/18/2023 Nausea 04/18/2023 History of delivery 02/24/2023 Resolved Ambulatory Problems Diagnosis Date Noted No Resolved Ambulatory Problems Past Medical History: Diagnosis Date Chronic hypertension affecting ([facility]) Exposure to cat feces, sequela Former smoker Herpes exposure History of miscarriage Morbid obesity with BMI of 40.0-44.9, [place] HISTORY PAST MEDICAL HISTORY SOCIAL HISTORY Past Medical History: Diagnosis Date Chronic hypertension affecting ([facility]) Exposure to cat feces, sequela Former smoker Gestational diabetes ([facility]) Herpes exposure History of miscarriage Morbid obesity with BMI of 40.0-44.9, adult ([facility] Social History Tobacco Use Smoking status: Former [...] note reviewed. Exam conducted with a director diabetes present. Vitals: Estimated body mass index is [...] of: Blank Albrecht NP documented in this encounterFitzgibbon [id number] History of Present illness Narrative* Carole Maxwell [...] Noted Benign essential hypertension in obstetric context ([facility]) 04/18/2023 Exposure to cat feces 04/18/2023 Gestational diabetes ([facility]) 04/18/2023 Nausea 04/18/2023 History of delivery 02/24/2023 Resolved Ambulatory Problems Diagnosis Date Noted No Resolved Ambulatory Problems Past Medical History: Diagnosis Date Chronic hypertension affecting ([facility]) Exposure to cat feces, sequela Former smoker Herpes exposure History of miscarriage Morbid obesity with BMI of 40.0-44.9, adult [place] HISTORY PAST MEDICAL HISTORY SOCIAL HISTORY Past Medical History: Diagnosis Date Chronic hypertension affecting ([facility]) Exposure to cat feces, sequela Former smoker Gestational diabetes ([facility]) Herpes exposure History of miscarriage Morbid obesity with BMI of 40.0-44.9, adult [place] Social History Tobacco Use Smoking status: Former [...] note reviewed. Exam conducted with a director diabetes present. Vitals: Estimated body mass index is 43.67 kg/m as calculated from the following: Height as of 09/09/23: 5' 7 . Weight as of this encounter: 278 lb 12.8 oz. BP: 118/74 No LMP recorded. ASSESSMENT & PLAN ICD-10-CM 1. Encounter for visit ([facility]) Z39.2 2. Blood pressure check Z01.30 Patient [...] of: Nolan Cortes DO documented in this encounterFitzgibbon [id number] History of Present illness Narrative* Grace Arita [...] Noted Benign essential hypertension in obstetric context ([facility]) 04/18/2023 Exposure to cat feces 04/18/2023 Gestational diabetes ([facility]) 04/18/2023 Nausea 04/18/2023 History of delivery 02/24/2023 Resolved Ambulatory Problems Diagnosis Date Noted No Resolved Ambulatory Problems Past Medical History: Diagnosis Date Chronic hypertension affecting ([facility]) Exposure to cat feces, sequela Former smoker Herpes exposure History of miscarriage Morbid obesity with BMI of 40.0-44.9, adult [place] HISTORY PAST MEDICAL HISTORY SOCIAL HISTORY Past Medical History: Diagnosis Date Chronic hypertension affecting ([facility]) Exposure to cat feces, sequela Former smoker Gestational diabetes ([facility]) Herpes exposure History of miscarriage Morbid obesity with BMI of 40.0-44.9, adult ([facility] Social History Tobacco Use Smoking status: Former [...] note reviewed. Exam conducted with a director diabetes present. Vitals: Estimated body mass index is 49.34 kg/m as calculated from the following: Height as of 09/09/23: 5' 7 . Weight as of this encounter: 315 lb. BP: 158/88 Patient's last menstrual period was 09/17/2024. ASSESSMENT & PLAN ICD-10-CM 1. Throbbing headache R51.9 2. Encounter for visit ([facility]) Z39.2 Pt presents with a throbbing headache- pt being sent to [facility] for observation pt delivered 06/03/25. Pt to continue labetalol. Pt to return in one week for BP check and headache check. Documented by Grace Arita LPN on behalf of: Nolan Cortes DO documented in this encounterFitzgibbon [id number] History of Present illness Narrative* Kareem Hall, SCREENER AND BLENDER OPERATOR-MACHINE MAINTENANCE SERVICER - 06/02/2025 9:30 AM EDT REASON FOR OFFICE VISIT: Video Visit via Real-time Synchronous Audiovisual Provider Location: [facility] AT [address] [address] Patient Location: Patient's home Video [...] that there are some limitations compared to [id number]-buoc evaluations. The patient consented to the presence [...] pain. +FM. She is being followed at [facility] due to GDMA2. States she is following [...] 10/27/2018 Performed by Vince Ardon DO at [facility] mole removed from neck [...] mis, by miscellaneous route., Disp: , Rfl: lancets (LANCETS,ULTRA THIN[place] [facility] [place]. Ultra Thin, Disp: , [...] ULTRA-FINE SILVIA PEN NEEDLE) 32 gauge x 32 needle, Use a new needle witheach injection, Disp: 100 each, Rfl: 3 vit calc,iron,folic ( VITAMIN ORAL), Take 1 tablet by mouth in the morning., Disp:, Rfl: LABS: Lab Results Component Value Date CREATININE 0.49 08/25/2021 Lab Results Component Value Date TSH 0.495 01/31/2023 No results found for: [id number] Lab Results Component Value Date CREATININE 0.49 [...] and Type 2 diabetes were reviewed. Continue [facility] Recommended carbohydrate allocation ranges: 30-45 g [...] by e-mail to: or by fax to: [phone] TIME OF CONSULTATION: 15 minutes with the patient, >50% in discussion and counseling, coordination of care which was [id number], review of records and communication back to referring provider. FRACISCO Trejo 06/02/25 0942 documented in this encounterProMedica Flower Hospital07-22-2025 History of Present illness Narrative* JOANNE [...] Noted Benign essential hypertension in obstetric context ([facility]) 04/18/2023 Exposure to cat feces 04/18/2023 Gestational diabetes ([facility]) 04/18/2023 Nausea 04/18/2023 History of delivery 02/24/2023 Resolved Ambulatory Problems Diagnosis Date Noted No Resolved Ambulatory Problems Past Medical History: Diagnosis Date Chronic hypertension affecting ([facility]) Exposure to cat feces, sequela Former smoker Herpes exposure History of miscarriage Morbid obesity with BMI of 40.0-44.9, adult [place] HISTORY PAST MEDICAL HISTORY SOCIAL HISTORY Past Medical History: Diagnosis Date Chronic hypertension affecting ([facility]) Exposure to cat feces, sequela Former smoker Gestational diabetes ([facility]) Herpes exposure History of miscarriage Morbid obesity with BMI of 40.0-44.9, adult [place] Social History Tobacco Use Smoking status: Former [...] ASSESSMENT & PLAN ICD-10-CM 1. Third trimester ([facility]) Z34.93 POCT urinalysis dipstick manually resulted CULTURE, GROUP B STREP WITH SUSCEPTIBLITY CULTURE, GROUP B STREP WITH SUSCEPTIBLITY 2. 36 weeks gestation of ([facility]) Z3A.36 Return OB: Patient presents today for [...] behalf of: JOANNE Hernandez documented in this encounterFitzgibbon [id number] History of Present illness Narrative* JOANNE Hernandez [...] Noted Benign essential hypertension in obstetric context ([facility]) 04/18/2023 Exposure to cat feces 04/18/2023 Gestational diabetes ([facility]) 04/18/2023 Nausea 04/18/2023 History of delivery 02/24/2023 Resolved Ambulatory Problems Diagnosis Date Noted No Resolved Ambulatory Problems Past Medical History: Diagnosis Date Chronic hypertension affecting ([facility]) Exposure to cat feces, sequela Former smoker Herpes exposure History of miscarriage Morbid obesity with BMI of 40.0-44.9, adult [place] HISTORY PAST MEDICAL HISTORY SOCIAL HISTORY Past Medical History: Diagnosis Date Chronic hypertension affecting ([facility]) Exposure to cat feces, sequela Former smoker Gestational diabetes ([facility]) Herpes exposure History of miscarriage Morbid obesity with BMI of 40.0-44.9, adult [place] Social History Tobacco Use Smoking status: Former [...] ASSESSMENT & PLAN ICD-10-CM 1. Third trimester ([facility]) Z34.93 POCT urinalysis dipstick manually resulted 2. 35 weeks gestation of ([facility]) Z3A.35 3. induced hypertension, antepartum ([facility]) O13.9 CANCELED: Creatinine CANCELED: Protein, urine, 24 [...] behalf of: JOANNE Hernandez documented in this encounterFitzgibbon [id number] Miscellaneous Notes* Telephone Encounter - Rufina Hurd CMA - 05/24/2025 8:37 AM EDT LINE FIXER CALLED PATIENT. NO ANSWER. LEFT VM ASKING PATIENT TO EMAIL US HER BLOOD GLUCOSE LOGS SO THATTHEY CAN BE REVIEWED BY OUR DIABETES TEAM. documented in this encounterProMedica Flower Hospital07-15-2025 Telephone encounter Note* Telephone Encounter - Rufina Hurd CMA - 05/24/2025 8:37 AM EDT LINE FIXER CALLED PATIENT. NO ANSWER. LEFT VM ASKING PATIENT TO EMAIL US HER BLOOD GLUCOSE LOGS SO THATTHEY CAN BE REVIEWED BY OUR DIABETES TEAM. [facility]07-08-2025 History of Present illness Narrative* Grace Arita, RADHA - 05/17/2025 11:40 AM EDT Reason for [...] in obstetric context ([facility]) 04/18/2023 Exposure to cat feces 04/18/2023 Gestational diabetes ([facility]) 04/18/2023 Nausea 04/18/2023 History of delivery 02/24/2023 Resolved Ambulatory Problems Diagnosis Date Noted No Resolved Ambulatory Problems Past Medical History: Diagnosis Date Chronic hypertension affecting ([facility]) Exposure to cat feces, sequela Former smoker Herpes exposure History of miscarriage Morbid obesity with BMI of 40.0-44.9, adult [place] HISTORY PAST MEDICAL HISTORY SOCIAL HISTORY Past Medical History: Diagnosis Date Chronic hypertension affecting ([facility]) Exposure to cat feces, sequela Former smoker Gestational diabetes ([facility]) Herpes exposure History of miscarriage Morbid obesity with BMI of 40.0-44.9, adult [place] Social History Tobacco Use Smoking status: Former [...] note reviewed. Exam conducted with a director diabetes present. Vitals: Estimated body mass index is 47.58 kg/m as calculated from the following: Height as of 09/09/23: 5' 7 . Weight as of this encounter: 303 lb 12.8 oz. BP: 126/78 Patient's last menstrual period was 09/17/2024. ASSESSMENT & PLAN ICD-10-CM 1. Third trimester ([facility]) Z34.93 2. 34 weeks gestation of ([facility]) Z3A.34 3. Gestational diabetes mellitus (GDM), antepartum, gestational diabetes method of control unspecified ([facility]) O24.419 Return OB: Patient presents today for [...] of: Nolan Cortes DO documented in this encounterFitzgibbon [id number] History of Present illness Narrative* Blank Albrecht [...] in obstetric context ([facility]) 04/18/2023 Exposure to cat feces 04/18/2023 Gestational diabetes ([facility]) 04/18/2023 Nausea 04/18/2023 History of delivery 02/24/2023 Resolved Ambulatory Problems Diagnosis Date Noted No Resolved Ambulatory Problems Past Medical History: Diagnosis Date Chronic hypertension affecting ([facility]) Exposure to cat feces, sequela Former smoker Herpes exposure History of miscarriage Morbid obesity with BMI of 40.0-44.9, adult [place] HISTORY PAST MEDICAL HISTORY SOCIAL HISTORY Past Medical History: Diagnosis Date Chronic hypertension affecting ([facility]) Exposure to cat feces, sequela Former smoker Gestational diabetes ([facility]) Herpes exposure History of miscarriage Morbid obesity with BMI of 40.0-44.9, adult [place] Social History Tobacco Use Smoking status: Former [...] note reviewed. Exam conducted with a director diabetes present. Vitals: Estimated body mass index is 47.16 kg/m as calculated from the following: Height as of 09/09/23: 5' 7 . Weight as of this encounter: 301 lb 1.9 oz. BP: 130/82 Patient's last menstrual period was 09/17/2024. ASSESSMENT & PLAN ICD-10-CM 1. 32 weeks gestation of ([facility]) Z3A.32 POCT urinalysis dipstick manually resulted 2. Third trimester ([facility]) Z34.93 POCT urinalysis dipstick manually resulted Return [...] She is sending her glucose logs to [facility] for review. She has continued with NST / BPP. Orders Placed This Encounter Procedures POCT urinalysis dipstick manually resulted Follow Up: Patient is to return to office in 2 week for routine OB appointment. Documented by Blank Albrecht NP on behalf of: Blank Albrecht NP documented in this encounterFitzgibbon [id number] Miscellaneous Notes* Telephone Encounter - Rufina Hurd CMA - 04/29/2025 9:31 AM EDT LINE FIXER CALLED THE PATIENT. NO ANSWER. LEFT VM ASKING THE PATIENT TO GIVE US A CALL TO SCHEDULE HER 4 WEEK FOLLOW UP APPOINTMENT AT THE REQUEST OF HER PROVIDER. LEFT OUR NUMBER AND INSTRUCTED HER TO SELECT OPTION 3 TO REACH ONE OF OUR SCHEDULERS. documented in this encounterProMedica Flower Hospital06-20-2025 Telephone encounter Note* Telephone Encounter - Rufina Hurd CMA - 04/29/2025 9:31 AM EDT LINE FIXER CALLED THE PATIENT. NO ANSWER. LEFT VM ASKING THE PATIENT TO GIVE US A CALL TO SCHEDULE HER 4 WEEK FOLLOW UP APPOINTMENT AT THE REQUEST OF HER PROVIDER. LEFT OUR NUMBER AND INSTRUCTED HER TO SELECT OPTION 3 TO REACH ONE OF OUR SCHEDULERS. 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 Discussed her current diet and [...] Delivery recommendations : - Recommend delivery at [id number] - reviewed with patient - Discuss delivery [...] by e-mail to: or by fax to: [phone] Kenya Acosta PA-C Maternal- Medicine Office phone: [phone] Kenya Acosta PA-C 04/19/25 1051 documented in this encounterProMedica Flower Hospital06-10-2025 Miscellaneous Notes* Telephone Encounter - Rufina Hurd CMA - 04/19/2025 8:44 AM EDT LINE FIXER CALLED PATIENT. NO ANSWER. LEFT VM FOR PATIENT TO EMAIL US HER BLOOD GLUCOSE LOG FOR HER UPCOMING APPOINTMENT WITH KENYA AT 10:30 AM documented in this encounterProMedica Flower Hospital06-10-2025 Telephone encounter Note* Telephone Encounter - Rufina Hurd CMA - 04/19/2025 8:44 AM EDT LINE FIXER CALLED PATIENT. NO ANSWER. LEFT VM FOR PATIENT TO EMAIL US HER BLOOD GLUCOSE LOG FOR HER UPCOMING APPOINTMENT WITH KENYA AT 10:30 AM [facility]06-09-2025 History of Present illness Narrative* Blank [...] obesity with BMI of 40.0-44.9, adult ([facility]) HISTORY PAST MEDICAL HISTORY SOCIAL HISTORY Past Medical History: Diagnosis Date Chronic hypertension affecting Exposure to cat feces, sequela Former smoker Gestational diabetes Herpes exposure History of miscarriage Morbid obesity with BMI of 40.0-44.9, adult ([facility]) Social History Tobacco Use Smoking [...] note reviewed. Exam conducted with a director diabetes present. Vitals: Estimated body mass index is [...] of: Nolan Cortes DO documented in this encounterFitzgibbon [id number] History of Present illness Narrative* Grace Arita, MERCHANDISING TEAM LEAD - 04/05/2025 1:50 PM EDT Reason for [...] obesity with BMI of 40.0-44.9, adult ([facility]) HISTORY PAST MEDICAL HISTORY SOCIAL HISTORY Past Medical History: Diagnosis Date Chronic hypertension affecting Exposure to cat feces, sequela Former smoker Gestational diabetes Herpes exposure History of miscarriage Morbid obesity with BMI of 40.0-44.9, adult ([facility]) Social History Tobacco Use Smoking [...] note reviewed. Exam conducted with a director diabetes present. Vitals: Estimated body mass index is [...] of: Nolan Cortes DO documented in this encounterFitzgibbon [id number] History of Present illness Narrative* Kareem Hall, GABINO-MACHINE MAINTENANCE SERVICER - 03/23/2025 10:30 AM EDT REASON FOR OFFICE VISIT: Video Visit via Real-time Synchronous Audiovisual Provider Location: [facility] AT [address] [address] Patient Location: Patient's home Video [...] that there are some limitations compared to [id number] evaluations. The patient consented to the presence [...] chest pain. She is being followed at [facility] due to GDMA2. States she is [...] 10/27/2018 Performed by Vince Ardon DO at [facility] mole removed from neck [...] TSH 0.495 01/31/2023 No results found for: [id number] Lab Results Component Value Date CREATININE 0.49 [...] baby. Little research has been done on terminal supervisor effects of Metformin exposure to the fetus. [...] by e-mail to: or by fax to: [phone] TIME OF CONSULTATION: 25 minutes with the patient, >50% in discussion and counseling, coordination of care which was [id number], review of records and communication back to referring provider. FRACISCO Trejo 03/23/25 1058 documented in this [facility]05-14-2025 Miscellaneous Notes* Telephone Encounter - Rufina Hurd CMA - 03/23/2025 8:54 AM EDT LINE FIXER CALLED PATIENT. NO ANSWER. LEFT VM FOR PATIENT TO EMAIL US HER BLOOD GLUCOSE LOG SO THAT WE WILL HAVE IT FOR HER APPOINTMENT TODAY. documented in this encounterProMedica Flower Hospital05-14-2025 Telephone encounter Note* Telephone Encounter - Rufina Hurd CMA - 03/23/2025 8:54 AM EDT LINE FIXER CALLED PATIENT. NO ANSWER. LEFT VM FOR PATIENT TO EMAIL US HER BLOOD GLUCOSE LOG SO THAT WE WILL HAVE IT FOR HER APPOINTMENT TODAY. [facility] [employer] [id number] Miscellaneous Notes* Telephone Encounter - Violet Lopez RN - 03/16/2025 11:29 AM EDTSummary: MFM Blood Glucose Log Called. No answer. Message left requesting more FBS numbers from this week as noted recently started Metformin this past Friday03/11/25. documented in this encounterProMedica Flower Hospital05-07-2025 Telephone encounter Note* Telephone Encounter - Violet Lopez RN - 03/16/2025 11:29 AM EDTSummarshoaib: MFM Blood Glucose Log Called. No answer. Message left requesting more FBS numbers from this week as noted recently started Metformin this past Friday03/11/25. [facility] Work Phone: 1(385) 562-918105-05-2025 History of Present illness Narrative* Carole Hoofelia, MERCHANDISING TEAM LEAD - 03/14/2025 1:50 PM EDT Reason for [...] obesity with BMI of 40.0-44.9, adult ([facility]) HISTORY PAST MEDICAL HISTORY SOCIAL HISTORY Past Medical History: Diagnosis Date Chronic hypertension affecting Exposure to cat feces, sequela Former smoker Gestational diabetes Herpes exposure History of miscarriage Morbid obesity with BMI of 40.0-44.9, adult ([facility]) Social History Tobacco Use Smoking [...] note reviewed. Exam conducted with a director diabetes present. 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 skilled nursing data on children whose mothers took oral [...] Delivery recommendations : - Recommend delivery at [id number] - reviewed with patient - Discuss delivery [...] by e-mail to: or by fax to: [phone] Kenya Acosta PA-C Maternal- Medicine Office phone: [phone] Kenya Acosta PA-C 03/08/25 7710 * Rufina Hurd CMA - 03/08/2025 1:00 [...] male Have you been seen here at [facility] in a previous ? Yes/with daughter Recent ER visits or hospitalizations? no Bring blood sugar log or meter with you today? (Please bring them with you for every visit at [facility]) yes Flu vaccine (Sep-January)? Any concerns that you would like me to mention to the provider today? documented in this encounterProMedica Flower Hospital04-29-2025 Miscellaneous Notes* Medical Student - Mariana [...] the legal medical record. documented in this encounterProMedica Flower Hospital04-29-2025 Progress note* Medical Student - Mariana [...] part of the legal medical record. [facility]04-29-2025 Miscellaneous Notes* Telephone Encounter - Rufina Hurd CMA - 03/08/2025 9:39 AM EDT Computer Programmer Analyst called patient. No answer. Left voicemail for the patient to email us her blood glucose logsfor her upcoming appointment today with Kenya Acosta. Also stated if she had any questions she could give us a call at [phone]. documented in this encounterProMedica Flower Hospital04-29-2025 Telephone encounter Note* Telephone Encounter - Rufina Hurd CMA - 03/08/2025 9:39 AM EDT Computer Programmer Analyst called patient. No answer. Left voicemail for the patient to email us her blood glucose logsfor her upcoming appointment today with Kenya Acosta. Also stated if she had any questions she could give us a call at [phone]. [facility]04-25-2025 Miscellaneous Notes* Telephone Encounter - Shima Renee RN - 03/04/2025 8:31 AM EDT Patient returned call, discussed all but 1 fasting is elevated which meets criteria for a medication start appointment. Patient states she was on insulin with last and expected this to happen again. Transferred to scheduling. documented in this encounterProMedica Flower Hospital04-25-2025 Telephone encounter Note* Telephone Encounter - Shima Renee RN - 03/04/2025 8:31 AM EDT Patient returned call, discussed all but 1 fasting is elevated which meets criteria for a medication start appointment. Patient states she was on insulin with last and expected this to happen again. Transferred to scheduling. [facility] [facility] Miscellaneous Notes* Telephone Encounter - Shima Renee RN - 03/02/2025 10:15 AM EDT Called and left voicemail regarding blood sugar log with 6 fasting elevations. Notified patient this does meet criteria to come in and speak to a provider regarding medication start. Number for scheduling provided. Encouraged patient to call diabetes line with any questions. [facility] Tele[facility] encounter Note* Telephone Encounter - Shima Renee RN - 03/02/2025 10:15 AM EDT Called and left voicemail regarding blood sugar log with 6 fasting elevations. Notified patient this does meet criteria to come in and speak to a provider regarding medication start. Number for scheduling provided. Encouraged patient to call diabetes line with any questions. [facility]04-17-[facility] Miscellaneous Notes* Telephone Encounter - JHONNY Tripathi - 02/24/2025 9:30 AM EDT Called regarding blood sugar and food logs from 02/21/2025-02/20/2025. All her fasting blood sugars are elevated. Asked her to return my call at [phone]. Charlene called back. Currently doing peanut butter [...] in blood sugars weekly. [facility] Telephone encounter Note* Telephone Encounter - JHONNY Tripathi - 02/24/2025 9:30 AM EDT Called regarding blood sugar and food logs from 02/21/2025-02/20/2025. All her fasting blood sugars are elevated. Asked her to return my call at [phone]. Charlene called back. Currently doing peanut butter [...] time. Continueto send in blood sugars weekly. [facility] Work Phone: 1(738) 600-775604-14-2025 History of Present illness Narrative* Carole Maxwell [...] obesity with BMI of 40.0-44.9, adult ([facility]) HISTORY PAST MEDICAL HISTORY SOCIAL HISTORY Past Medical History: Diagnosis Date Chronic hypertension affecting Exposure to cat feces, sequela Former smoker Gestational diabetes Herpes exposure History of miscarriage Morbid obesity with BMI of 40.0-44.9, adult ([facility]) Social History Tobacco Use Smoking [...] note reviewed. Exam conducted with a director diabetes present. Vitals: Estimated body mass index is [...] of: Nolan Cortes DO documented in this encounterFitzgibbon [id number] Group counseling note* Group Note - Alexandria [...] Face to face time was 75 minutes. [facility] Work Phone: 1(961) 593-133004-09-2025 Miscellaneous Notes* Group Note - Alexandria Robert [...] time was 75 minutes. documented in this encounterOur [facility] - AndersonLeanplum [facility] [id number] History of Present illness Narrative* Sakshi Lemus RN - 02/07/2025 1:19 PM EDT PAPER CHART ABSTRACTED FOR DIABETIC ED AT [facility]. documented in this encounterOur Lady of Mer[facility] - AndersonAgendize [id number] History of Present illness Narrative* Grace Arita [...] obesity with BMI of 40.0-44.9, adult ([facility]) HISTORY PAST MEDICAL HISTORY SOCIAL HISTORY Past Medical History: Diagnosis Date Chronic hypertension affecting Exposure to cat feces, sequela Former smoker Gestational diabetes Herpes exposure History of miscarriage Morbid obesity with BMI of 40.0-44.9, adult ([facility]) Social History Tobacco Use Smoking [...] note reviewed. Exam conducted with a director diabetes present. Vitals: Estimated body mass index is [...] or undercooked meat, and stay away from [facility]. Patient has been consulted regarding any further do's and don'tsof . Patient voiced understanding and all questions and concerns were answered. Orders Placed This Encounter Procedures POCT urinalysis dipstick manually resulted Follow Up: Patient is to return in 4 weeks for routine OB appointment. Documented by Grace Arita LPN on behalf of: Nolan Cortes DO documented in this [facility]01-17-2025 Miscellaneous Notes* Result Encounter Note - Danay Ortega LPN - 11/26/2024 9:39 AM EST Order Attached to FS documented in this [facility]01-17-2025 Progress note* Result Encounter Note - Danay Ortega LPN - 11/26/2024 9:39 AM EST Order Attached to FS [facility] Work Phone: 1(430) 742-643001-17-2025 History of Present illness Narrative* Danay Ortega, MERCHANDISING TEAM LEAD - 11/26/2024 9:00 AM EST Reason for [...] obesity with BMI of 40.0-44.9, adult ([facility]) Family History Problem Relation Name [...] or undercooked meat, and stay away from [facility]. Patient has also been advised to [...] by: Danay Ortega LPN documented in this encounterNOMS HealthcareEvaluation note* Diagnosis Missed menses , unspecified [...] diabetes education [facility] Diagnosis Second trimester state, incidental 22 weeks gestation of [facility]* Diagnosis Gestational diabetes mellitus (GDM) in second trimester controlled on oral hypoglycemic drug- Primary documented in this encounter [facility]* Diagnosis Second trimester state, incidental 25 weeks gestation of [facility]* Diagnosis Gestational diabetes mellitus (GDM) in second trimester controlled on oral hypoglycemic drug documented [facility] this encounter [facility]* Diagnosis Third trimester state, incidental [...] drug- Primary documented in this encounter [facility]* Diagnosis 32 weeks gestation of ([facility]-HCC) Third trimester (HHS-HCC) state, incidental [facility]* Diagnosis Third trimester ([facility]HS-HCC) state, incidental 34 weeks gestation of (HHS-HCC) Gestational diabetes mellitus (GDM), antepartum, gestational diabetes method of control unspecified([facility]) documented [facility] this [facility]* [...] drug- Primary documented in this encounter [facility]* Diagnosis Throbbing headache Headache Encounter for visit ([facility]) documented [facility] this [facility]* Diagnosis Encounter for visit ([facility]-HCC) Blood pressure check Screening for hypertension [facility]* Diagnosis Blood pressure check Screening for hypertension [facility]* Diagnosis BP check Screening for hypertension [facility]* Diagnosis Benign essential hypertension in obstetric context, antepartum (HHS-HCC)- Primary [facility]* Diagnosis 6 weeks follow-up (HHS-HCC) Spontaneous vaginal delivery (HHS-HCC) Normal delivery documented in this encounter [facility] HealthcareInstructionsNot on filedocumented in this encounterProMedial Health SystemInstructionsNot on filedocumented in this encounterProRussellville Hospital Health SystemInstructionsNot on filedocumented in this encounterProMedial Health SystemInstructionsNot on filedocumented in this encounterProSelect [facility] Summary Purpose Family History No Family History Records FoundNo Family History Records FoundNo Family History Records FoundNo Family History Records Found Advance Directives No Advanced Directives Records FoundNo Advanced Directives Records FoundNo Advanced Directives Records FoundNo Advanced Directives Records Found Additional Source Comments INFORMATION SOURCE (unrecogn ized section and content) DATE CREATED AUTHOR 04/18/2023 [facility] DATE CREATED AUTHOR AUTHOR'S ORGANIZ ATION 06/03/2025 [facility] DATE CREATED AUTHOR AUTHOR'S ORGANIZ ATION 06/28/2025 [facility] DATE CREATED AUTHOR AUTHOR'S ORGANIZ ATION 09/22/2025 [facility] EPIC Reason for Visit (unrecogniz ed section and content) ReasonCommentsAmenorrheaReasonCommentsRoutine VisitReasonComments Gestational DiabetesSpecialtyDiagnoses / ProceduresReferred By ContactReferred To ContactMaternal and Medicine Diagnoses Encounter for diabetes education Nolan Cortes R, DO [address] [place] [address] [place] [address] Phone: tel: fax: Maternal- Medicine at [facility] [address] [place] [address] Phone: tel: fax: Referral IDStatusReasonStart DateExpiration DateVisits RequestedVisits [id number] Review Specialty Services Required /[id number] Start-GDMReasonCommentsBlood Pressure CheckReasonCommentsPostpartum Follow-upBlood Pressure CheckReasonComments CarePt [...] PCP - GeneralPediatrics18Team MemberRelationshipSpecialtyStart DateEnd Date Melony Azlu MD PCP - GeneralPediatrics818Team MemberRelationshipSpecialtyStart DateEnd Date [...] BE BASED ON THE PRIMARY CLINICAL RECORDS. [email or web address] [email or web address] [facility]. provides no warranty or guarantee of the accuracy or completeness of information in this document.
== END 2025-11-07 13:03 | disposition home or self-care (01) ==
LOC: CARD 13:02
PROVIDERS: Visit Provider Internal Medicine Interventional Cardiology
DX: I51.7 Cardiomegaly (principal)
CPT/HCPCS: 93306